=== PATIENT | female | born 1970 | race African-American/Black ===

== ENCOUNTER 2016-09-23 18:40 | Observation (INO) | payer OTHER ==
[2016-09-23] MEDS ORDERED: FUROSEMIDE 10 MG/ML 4 ML VIAL IV STA (19:34)
[2016-09-23] MEDS ORDERED: IPRATROPIUM-ALBUTEROL 3 ML NEB INHALATION STA (19:34)
[2016-09-23] MEDS ORDERED: NITROGLYCERIN OINT 1 INCH/GM PACKET TOPICAL STA (19:34)
[2016-09-23] MEDS ORDERED: ASPIRIN 81 MG CHEW PO STA (19:36)
[2016-09-23 19:52] LABS: Basophils % (A) 0 %; CH 28.9; CHCM 32.5; Eosinophils % (A) 0 %; HCT 45.1 % (34.0-46.0); HDW 2.32; HGB 14.2 gm/dL (11.4-16.0); Luc % (Auto) 1; Lymphocytes # (A) 0.9 k/uL (1.0-4.8); Lymphocytes % (A) 8 %; MCHC 31.4 g/dL (31.0-37.0); MCV 89.2 fL (80.0-100.0); Mean Platelet Volume 6.4; Monocytes # (A) 0.2 k/uL (0-1.0); Monocytes % (A) 2 %; Neutrophils # (A) 9.3 k/uL (1.3-7.7); Neutrophils % (A) 89 %; RBC 5.05 m/uL (3.80-5.40); WBC 10.5 k/uL (3.8-10.6)
[2016-09-23 20:00] LABS: ALT 29 U/L (9-52); AST 20 U/L (14-36); Alkaline Phosphatase 55 U/L (38-126); Anion Gap 10 mmol/L; Blood Urea Nitrogen 20 mg/dL (7-17); Calcium 9.6 mg/dL (8.4-10.2); Carbon Dioxide 28 mmol/L (22-30); Chloride 101 mmol/L (98-107); Glucose 117 mg/dL (74-99); Non-African American GFR(MDRD) >60 (>60 ml/min/1.73 sqM); Potassium 4.4 mmol/L (3.5-5.1); Sodium 139 mmol/L (137-145); Total Bilirubin 0.4 mg/dL (0.2-1.3); Total Protein 7.3 g/dL (6.3-8.2)
[2016-09-23 20:04] LABS: Partial Thromboplastin Time 23.7 sec (22.0-30.0)
[2016-09-23 20:14] LABS: Creatine Kinase 38 U/L (30-135)
[2016-09-23 20:26] LABS: Creatine Kinase MB <0.2 ng/mL (0.0-2.4); Troponin I <0.012 ng/mL (0.000-0.034)
--- NOTE | 2016-09-23 21:02 | XR ---
EXAMINATION TYPE: XR chest 2V DATE OF EXAM: 09/23/2016 8:57 PM COMPARISON: 11/11/2013 HISTORY: Leg edema TECHNIQUE: Frontal and lateral views of the chest are obtained. FINDINGS: There is no heart failure nor confluent pneumonic infiltrate. There is slight coarsening o f interstitial markings. There are no hilar masses. There are chest leads. Bony thorax appears intact . IMPRESSION: Mild pulmonary fibrotic changes. No acute lung disease. No change.
--- NOTE | 2016-09-23 21:05 | ED ---
General Adult HPI - General Source: patient Mode of arrival: wheelchair Limitations: no limitations <Rene Hathaway - Last Filed: 09/23/16 21:21> <Gilles Harvey - Last Filed: 09/23/16 22:33> - General Chief complaint: Extremity Problem,Nontraumatic Stated complaint: SOB, LEG SWELLING, SORE OOZING Time Seen by Provider: 09/23/16 19:22 - History of Present Illness Initial comments: This 38-year-old white female presents with a complaint of some lower extremity swelling and shortness of breath. She states that she has had edema to her lower extremities for approximately 2 weeks. She's also developed some pitting edema over that time. Her shortness of breath is worse with any exertion. She has orthopnea as well. She denies any known history of congestive heart failure. She has had some midsternal intermittent chest heaviness for the past 3 days. She does relate some recent urinary tract infection symptoms and was treated for urinary tract infection recently. She denies any known cardiac disease but does have a history of sarcoidosis. 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 No other complaints or modifying factors. (Rene Hathaway) - Related Data Home Medications Medication Instructions Recorded Confirmed Magnesium 200 mg PO DAILY 09/23/16 09/23/16 Methadone HCl [Methadone Intensol] 105 mg PO DAILY 09/23/16 09/23/16 Vitamin B Complex 1 cap PO DAILY 09/23/16 09/23/16 predniSONE 80 mg PO DAILY 09/23/16 09/23/16 tiZANidine HCL [Zanaflex] 2 mg PO Q6H PRN 09/23/16 09/23/16 Allergies Allergy/AdvReac Type Severity Reaction Status Date / Time No Known Allergies Allergy Verified 09/23/16 19:18 Review of Systems ROS Other: All systems not noted in ROS Statement are negative. <Rene Hathaway - Last Filed: 09/23/16 21:21> ROS Other: All systems not noted in ROS Statement are negative. <Gilles Harvey - Last Filed: 09/23/16 22:33> ROS Statement: Those systems with pertinent positive or pertinent negative responses have been documented in the HPI. Past Medical History Additional Past Medical History / Comment(s): opiod abuse, SARCODOSIS History of Any Multi-Drug Resistant Organisms: None Reported Past Surgical History: Back Surgery, Orthopedic Surgery Past Psychological History: No Psychological Hx Reported Smoking Status: Former smoker Past Alcohol Use History: None Reported Past Drug Use History: Prescription Drug Abuse <Rene Hathaway - Last Filed: 09/23/16 21:21> General Exam Limitations: no limitations <Rene Hathaway - Last Filed: 09/23/16 21:21> General appearance: alert, in no apparent distress, obese Head exam: Present: atraumatic, normocephalic, normal inspection Eye exam: Present: normal appearance, PERRL, EOMI. Absent: scleral icterus, conjunctival injection, periorbital swelling ENT exam: Present: normal exam, mucous membranes moist Neck exam: Present: normal inspection. Absent: tenderness, meningismus, lymphadenopathy Respiratory exam: Present: normal lung sounds bilaterally. Absent: respiratory distress, wheezes, rales, rhonchi, stridor Cardiovascular Exam: Present: regular rate, normal rhythm, normal heart sounds. Absent: systolic murmur, diastolic murmur, rubs, gallop, clicks GI/Abdominal exam: Present: soft, normal bowel sounds. Absent: distended, tenderness, guarding, rebound, rigid Extremities exam: Present: normal inspection, full ROM, normal capillary refill. Absent: tenderness, pedal edema, joint swelling, calf tenderness Back exam: Present: normal inspection Neurological exam: Present: alert, oriented X3, CN II-XII intact Psychiatric exam: Present: normal affect, normal mood Skin exam: Present: warm, dry, intact, normal color. Absent: rash <Gilles Harvey - Last Filed: 09/23/16 22:33> - General Exam Comments Initial Comments: GENERAL: The patient is well nourished and well hydrated. VITAL SIGNS: Heart rate, blood pressure, respiratory rate reviewed as recorded in nurse's notes. EYES: Pupils are round and reactive. Extraocular movements are intact. No conjunctival / lid redness or swelling. ENT: No external evidence of injury, swelling, or ecchymosis. Airway is patent. Throat is clear. NECK: Nontender. No swelling or evidence of injury. No subcutaneous emphysema. Trachea is midline. No thyroid mass. HEART: Regular rate and rhythm. Good peripheral pulses. LUNGS/CHEST: Breath sounds clear and equal bilaterally. No rales, rhonchi, or wheezes. No ecchymosis, subcutaneous emphysema, or tenderness. ABDOMEN: Abdomen soft without tenderness. No palpable masses or organomegaly. No peritoneal signs. No abdominal wall swelling or ecchymosis. EXTREMITIES: No extremity tenderness. Normal muscle tone and function. No thoracolumbar tenderness. There is some swelling and pitting edema noted to the bilateral lower extremities. NEUROLOGIC: Sensation is grossly intact. Cranial nerve exam reveals face is symmetrical, tongue is midline, speech is clear. SKIN: No abrasions or ecchymosis is noted. No induration or masses noted. There is a small area of erythema noted to the mid anterior jackman potentially related to a pressure blister. PSYCHIATRIC: Alert and oriented. Appropriate behavior and judgment. (Rene Hathaway) Course <Rene Hathaway - Last Filed: 09/23/16 21:21> <Gilles Harvey - Last Filed: 09/23/16 22:33> Vital Signs 09/23/16 09/23/16 09/23/16 18:50 19:56 20:04 Temperature 98.4 F Pulse Rate 84 70 70 Respiratory 20 18 Rate Blood Pressure 153/88 144/76 O2 Sat by Pulse 98 95 Oximetry 09/23/16 20:13 Temperature Pulse Rate 74 Respiratory Rate Blood Pressure O2 Sat by Pulse Oximetry - Reevaluation(s) Reevaluation #1: 09/23/16 22:32 Patient remains a chest pain at this time, concerned about her heart and sudden (Gilles Harvey) Medical Decision Making - Lab Data Result diagrams: 09/23/16 19:11 09/23/16 19:11 <Rene Hathaway - Last Filed: 09/23/16 21:21> - Lab Data Result diagrams: 09/23/16 19:11 09/23/16 19:11 - Radiology Data Radiology results: report reviewed (Chest x-ray is unchanged, CT has no PE), image reviewed <Gilles Harvey - Last Filed: 09/23/16 22:33> - Medical Decision Making The patient was seen and examined. All diagnostics were reviewed. The patient had an EKG done which shows a normal sinus rhythm with a heart rate of 70. There is no acute ST T-wave changes noted. The GA interval is 140, QRS duration is 90, and the QTc interval is 444. An IV is established and she received aspirin, nitroglycerin, and 80 mg of Lasix intravenously. The chest x- ray shows mild pulmonary fibrotic disease but no acute process otherwise noted. Laboratories reviewed. His felt as though she likely does have a degree of congestive heart failure. She also has had some chest pain recently. The possibility of acute coronary syndrome is possible. Is felt as though she would require admission to the hospital. Case will be discussed with internal medicine patient be admitted for further treatment. 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2 (0-1.0) k/uL Eosinophils # 0.0 (0-0.7) k/uL Basophils # 0.0 (0-0.2) k/uL PT (9.0-12.0) sec INR (<1.1) APTT (22.0-30.0) sec D-Dimer (<0.60) mg/L FEU Sodium 139 (137-145) mmol/L Potassium 4.4 (3.5-5.1) mmol/L Chloride 101 (98-107) mmol/L Carbon Dioxide 28 (22-30) mmol/L Anion Gap 10 mmol/L BUN 20 H (7-17) mg/dL Creatinine 0.67 (0.52-1.04) mg/dL Est GFR (MDRD) Af Amer >60 (>60 ml/min/1.73 sqM) Est GFR (MDRD) Non-Af >60 (>60 ml/min/1.73 sqM) Glucose 117 H (74-99) mg/dL Calcium 9.6 (8.4-10.2) mg/dL Total Bilirubin 0.4 (0.2-1.3) mg/dL AST 20 (14-36) U/L ALT 29 (9-52) U/L Alkaline Phosphatase 55 (38-126) U/L Total Creatine Kinase 38 (30-135) U/L CK-MB (CK-2) <0.2 (0.0-2.4) ng/mL CK-MB (CK-2) Rel Index Troponin I <0.012 (0.000-0.034) ng/mL NT-Pro-B Natriuret Pep pg/mL Total Protein 7.3 (6.3-8.2) g/dL Albumin 4.2 (3.5-5.0) g/dL Lipase (23-300) U/L Urine Color Urine Appearance (Clear) Urine pH (5.0-8.0) Ur Specific [place] (1.001-1.035) Urine Protein (Negative) Urine Glucose (UA) (Negative) Urine Ketones (Negative) Urine Blood (Negative) Urine Nitrite (Negative) Urine Bilirubin (Negative) Urine Urobilinogen (<2.0) mg/dL Ur Leukocyte Esterase (Negative) Urine RBC (0-5) /hpf Ur Squamous Epith Cells (0-4) /hpf 09/23/16 09/23/16 09/23/16 Range/Units 19:11 19:11 19:11 WBC (3.8-10.6) k/uL RBC (3.80-5.40) m/uL Hgb (11.4-16.0) gm/dL Hct (34.0-46.0) % MCV (80.0-100.0) fL MCH (25.0-35.0) pg MCHC (31.0-37.0) g/dL RDW (11.5-15.5) % Plt Count (150-450) k/uL Neutrophils % % Lymphocytes % % Monocytes % % Eosinophils % % Basophils % % Neutrophils # (1.3-7.7) k/uL Lymphocytes # (1.0-4.8) k/uL Monocytes # (0-1.0) k/uL Eosinophils # (0-0.7) k/uL Basophils # (0-0.2) k/uL PT 10.0 (9.0-12.0) sec INR 1.0 (<1.1) APTT 23.7 (22.0-30.0) sec D-Dimer 0.42 (<0.60) mg/L FEU Sodium (137-145) mmol/L Potassium (3.5-5.1) mmol/L Chloride (98-107) mmol/L Carbon Dioxide (22-30) mmol/L Anion Gap mmol/L BUN (7-17) mg/dL Creatinine (0.52-1.04) mg/dL Est GFR (MDRD) Af Amer (>60 ml/min/1.73 sqM) Est GFR (MDRD) Non-Af (>60 ml/min/1.73 sqM) Glucose (74-99) mg/dL Calcium (8.4-10.2) mg/dL Total Bilirubin (0.2-1.3) mg/dL AST (14-36) U/L ALT (9-52) U/L Alkaline Phosphatase (38-126) U/L Total Creatine Kinase (30-135) U/L CK-MB (CK-2) (0.0-2.4) ng/mL CK-MB (CK-2) Rel Index Troponin I (0.000-0.034) ng/mL NT-Pro-B Natriuret Pep 42 pg/mL Total Protein (6.3-8.2) g/dL Albumin (3.5-5.0) g/dL Lipase (23-300) U/L Urine Color Urine Appearance (Clear) Urine pH (5.0-8.0) Ur Specific [place] (1.001-1.035) Urine Protein (Negative) Urine Glucose (UA) (Negative) Urine Ketones (Negative) Urine Blood (Negative) Urine Nitrite (Negative) Urine Bilirubin (Negative) Urine Urobilinogen (<2.0) mg/dL Ur Leukocyte Esterase (Negative) Urine RBC (0-5) /hpf Ur Squamous Epith Cells (0-4) /hpf 09/23/16 09/23/16 Range/Units 19:11 21:31 WBC (3.8-10.6) k/uL RBC (3.80-5.40) m/uL Hgb (11.4-16.0) gm/dL Hct (34.0-46.0) % MCV (80.0-100.0) fL MCH (25.0-35.0) pg MCHC (31.0-37.0) g/dL RDW (11.5-15.5) % Plt Count (150-450) k/uL Neutrophils % % Lymphocytes % % Monocytes % % Eosinophils % % Basophils % % Neutrophils # (1.3-7.7) k/uL Lymphocytes # (1.0-4.8) k/uL Monocytes # (0-1.0) k/uL Eosinophils # (0-0.7) k/uL Basophils # (0-0.2) k/uL PT (9.0-12.0) sec INR (<1.1) APTT (22.0-30.0) sec D-Dimer (<0.60) mg/L FEU Sodium (137-145) mmol/L Potassium (3.5-5.1) mmol/L Chloride (98-107) mmol/L Carbon Dioxide (22-30) mmol/L Anion Gap mmol/L BUN (7-17) mg/dL Creatinine (0.52-1.04) mg/dL Est GFR (MDRD) Af Amer (>60 ml/min/1.73 sqM) Est GFR (MDRD) Non-Af (>60 ml/min/1.73 sqM) Glucose (74-99) mg/dL Calcium (8.4-10.2) mg/dL Total Bilirubin (0.2-1.3) mg/dL AST (14-36) U/L ALT (9-52) U/L Alkaline Phosphatase (38-126) U/L Total Creatine Kinase (30-135) U/L CK-MB (CK-2) (0.0-2.4) ng/mL CK-MB (CK-2) Rel Index Troponin I (0.000-0.034) ng/mL NT-Pro-B Natriuret Pep pg/mL Total Protein (6.3-8.2) g/dL Albumin (3.5-5.0) g/dL Lipase 135 (23-300) U/L Urine Color Colorless Urine Appearance Clear (Clear) Urine pH 7.0 (5.0-8.0) Ur Specific [place] 1.004 (1.001-1.035) Urine Protein Negative (Negative) Urine Glucose (UA) Trace H (Negative) Urine Ketones Negative (Negative) Urine Blood Small H (Negative) Urine Nitrite Negative (Negative) Urine Bilirubin Negative (Negative) Urine Urobilinogen <2.0 (<2.0) mg/dL Ur Leukocyte Esterase Negative (Negative) Urine RBC <1 (0-5) /hpf Ur Squamous Epith Cells <1 (0-4) /hpf Critical Care Time Critical Care Time: Yes Total Critical Care Time: 31 <Gilles Harvey - Last Filed: 09/23/16 22:33> Disposition <Rene Hathaway - Last Filed: 09/23/16 21:21> <Gilles Harvey - Last Filed: 09/23/16 22:33> Clinical Impression: Bilateral lower extremity edema, Chest pain, Hypertension, Sarcoidosis Disposition: ADMITTED IP TO THIS [facility] Condition: Fair Referrals: Henri Franco MD [Primary Care Provider] - 1-2 days
[2016-09-23] MEDS ORDERED: RX INFO: IV CONTRAST WAS GIVEN 1 EACH MISC MISCELLANE PRN (21:25)
[2016-09-23 21:48] LABS: Appearance,Urine Clear (Clear); Bilirubin,Urine Negative (Negative); Glucose,Urine (UA) Trace (Negative); Ketones,Urine Negative (Negative); Leukocyte Esterase,Urine Negative (Negative); Nitrite,Urine Negative (Negative); Particle Count 539; Protein,Urine Negative (Negative); RBC,Urine <1 /hpf (0-5); Specific Gravity,Urine 1.004 (1.001-1.035); Squamous Epithelial Cell,Urine <1 /hpf (0-4); UA Billing (MACRO vs. MICRO) MICRO; Urobilinogen,Urine <2.0 mg/dL (<2.0)
--- NOTE | 2016-09-23 22:17 | CT ---
EXAMINATION TYPE: CT angio chest DATE OF EXAM: 09/23/2016 10:09 PM COMPARISON: NONE HISTORY: Pt states of chest pain, SOB, and bilateral leg swelling. Hx of sarcoidosis. CT DLP: 1163.9 mGycm Automated exposure control for dose reduction was used. CONTRAST: CTA scan of the thorax is performed with IV Contrast, patient injected with 70 mL of Omnipaque 350, p ulmonary embolism protocol. There are 3-D post processed images.. FINDINGS: The lungs are clear of consolidation. There is no evidence of a pulmonary mass. There is no pleural e ffusion. Thoracic aorta is intact. I see no filling defects in the pulmonary arteries. There are no h ilar masses. There is no mediastinal adenopathy. There is no pericardial effusion. Bony thorax is int act. IMPRESSION: NO EVIDENCE OF PULMONARY EMBOLISM.
[2016-09-23] MEDS ORDERED: NITROGLYCERIN SL TABS 0.4 MG TAB SUBLINGUAL PRN (22:27)
[2016-09-23] MEDS ORDERED: HEPARIN SODIUM,PORCINE 5,000 UNIT/ML 1 ML VIAL IV ONE (22:27)
[2016-09-23] MEDS ORDERED: MORPHINE SULFATE 4 MG/ML SYRINGE IV PRN (22:27)
[2016-09-24] MEDS ORDERED: IPRATROPIUM-ALBUTEROL 3 ML NEB INHALATION SCH
[2016-09-24] MEDS: HEPARIN SODIUM,PORCINE/D5W PMX 25,000 UNIT in DEXTROSE/WATER 1 500ML.BAG IV SCH ×2 (00:47→21:25)
[2016-09-24] MEDS ORDERED: KETOROLAC 30 MG/ML 1 ML VIAL IVP STA (01:42)
[2016-09-24 01:45] LABS: Creatine Kinase 36 U/L (30-135)
[2016-09-24 01:58] LABS: Creatine Kinase MB 0.3 ng/mL (0.0-2.4); Troponin I <0.012 ng/mL (0.000-0.034)
[2016-09-24 04:44] LABS: Mean Platelet Volume 6.7
[2016-09-24 04:54] LABS: Cholesterol 237 mg/dL (<200); HDL Cholesterol 109 mg/dL (40-60); Triglycerides 104 mg/dL (<150)
[2016-09-24 08:22] LABS: Creatine Kinase 37 U/L (30-135)
[2016-09-24 08:34] LABS: Creatine Kinase MB <0.2 ng/mL (0.0-2.4); Troponin I <0.012 ng/mL (0.000-0.034)
--- NOTE | 2016-09-24 09:38 | US ---
EXAMINATION TYPE: US venous doppler duplex LE DATE OF EXAM: 09/23/2016 9:26 PM COMPARISON: NONE CLINICAL HISTORY: Pain. Swelling, patient is morbidly obese at 400 lbs. SIDE PERFORMED: Bilateral TECHNIQUE: The bilateral lower extremity deep venous system is examined utilizing real time linear a rray sonography with graded compression, doppler sonography and color-flow sonography. VESSELS IMAGED: External Iliac Vein (EIV) Common Femoral Vein Deep Femoral Vein Greater Saphenous Vein * Femoral Vein Popliteal Vein Proximal Calf Veins (* superficial vessels) Right Leg: Negative for DVT Left Leg: Negative for DVT No popliteal fossa lesion was seen. IMPRESSION: THIS EXAMINATION IS NEGATIVE FOR DVT IN BOTH LEGS.
[2016-09-24] MEDS: HEPARIN SODIUM,PORCINE 5,000 UNIT/ML 1 ML VIAL IV PRN ×2 (09:47→18:22)
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
[2016-09-24] MEDS ORDERED: ACETAMINOPHEN TAB 325 MG TAB PO PRN (13:22)
[2016-09-24] MEDS: predniSONE 20 MG TAB PO SCH (14:25)
[2016-09-24] MEDS: MAGNESIUM OXIDE 400 MG TAB PO SCH (14:25)
[2016-09-24] MEDS: METHADONE 10 MG TAB PO SCH (14:25)
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
[2016-09-24] MEDS: ASPIRIN 325 MG TAB PO SCH (16:29)
[2016-09-24] MEDS: BUDESONIDE 0.5 MG/2 ML NEBU INHALATION SCH (21:43)
[2016-09-24] MEDS: IPRATROPIUM-ALBUTEROL 3 ML NEB INHALATION PRN (21:43)
[2016-09-25] MEDS ORDERED: PANTOPRAZOLE 40 MG TABLET PO SCH (07:30)
[2016-09-25] MEDS: IPRATROPIUM-ALBUTEROL 3 ML NEB INHALATION PRN (07:45)
[2016-09-25] MEDS: BUDESONIDE 0.5 MG/2 ML NEBU INHALATION SCH (07:45)
[2016-09-25 07:52] VITALS: BP 122/66; RESP 18; TEMP 99
[2016-09-25 08:05] VITALS: PULSE 72
[2016-09-25 08:06] LABS: Mean Platelet Volume 6.4
[2016-09-25] MEDS ORDERED: predniSONE 20 MG TAB PO SCH (09:00)
[2016-09-25] MEDS: predniSONE 20 MG TAB PO SCH (09:15)
[2016-09-25] MEDS: ASPIRIN 325 MG TAB PO SCH (09:16)
--- NOTE | 2016-09-25 09:28 | ECHOF ---
Referral Reason:chest pain MEASUREMENTS -------- HEIGHT: 175.3 cm WEIGHT: 181.4 kg BP: RVIDd: 3.7 cm (< 3.3) IVSd: 1.1 cm (0.6 - 1.1) LVIDd: 4.9 cm (3.9 - 5.3) LVPWd: 1.1 cm (0.6 - 1.1) IVSs: 1.3 cm LVIDs: 3.5 cm LVPWs: 1.4 cm Ao Diam: 3.7 cm (2.0 - 3.7) AV Cusp: 2.2 cm (1.5 - 2.6) LA Diam: 4.2 cm (2.7 - 3.8) MV EXCURSION: 16.790 mm (> 18.000) MV EF SLOPE: 68 mm/s (70 - 150) EPSS: 0.3 cm MV E Carlos: 0.73 m/s MV DecT: 191 ms MV A Carlos: 0.69 m/s MV E/A Ratio: 1.07 RAP: 5.00 mmHg RVSP: 20.86 mmHg FINDINGS -------- Sinus rhythm. Morbid Obesity This was a techncally difficult study with suboptimal views, , Definity utilized for enhancement of images. There is mild concentric left ventricular hypertrophy. Overall left ventricular systolic function is low-normal with, an EF between 50 - 55 %. The right ventricle is normal in size. The left atrial size is normal. The right atrial size is normal. 1.5MG OF DEFINITY UTLIZED: 2 OR MORE WALL SEGMENTS NOT VISUALIZED. There is mild aortic valve sclerosis. There is no evidence of aortic regurgitation. Mild mitral annular calcification present. Mild mitral regurgitation is present. Mild tricuspid regurgitation present. There is no evidence of pulmonary hypertension. The right ventricular systolic pressure, as measured by Doppler, is 20.86mmHg. There is no pulmonic regurgitation present. The aortic root size is normal. There is no pericardial effusion. CONCLUSIONS -------- 1. Morbid Obesity 2. There is no evidence of pulmonary hypertension. 3. The right ventricular systolic pressure, as measured by Doppler, is 20.86mmHg. 4. This was a techncally difficult study with suboptimal views, , Definity utilized for enhancement of images. 5. There is mild concentric left ventricular hypertrophy. 6. Overall left ventricular systolic function is low-normal with, an EF between 50 - 55 %. 7. 1.5MG OF DEFINITY UTLIZED: 2 OR MORE WALL SEGMENTS NOT VISUALIZED. 8. There is mild aortic valve sclerosis. 9. Mild mitral annular calcification present. 10. Mild mitral regurgitation is present. 11. Mild tricuspid regurgitation present. ELECTRICIAN FRONT: Kyara Avalos RDCS
[2016-09-25] MEDS: METHADONE 10 MG TAB PO SCH (09:48)
--- NOTE | 2016-09-25 11:26 | PN ---
This is a 46-year-old lady seen by me yesterday with atypical chest pain, morbid obesity, history of sarcoidosis. She is resting comfortably. Has no further symptoms. Her vital signs are stable. Her troponins have all come out normal. Blood pressure is 120/60, pulse rate is 70 per minute. Heart sounds are heard distantly. There is no JVD. Lungs are clear. Abdomen and lower extremity exam unchanged. The patient has morbid obesity, atypical chest pain, but has been pain free and troponins are normal. I am recommending that we will discharge her and perform a dobutamine echo in [facility] in the next week or so. She will call me sooner if she has a question, concern or problem.
[2016-09-25] MEDS ORDERED: B COMPLEX-VIT C-VIT E-ZINC 1 EACH TAB PO SCH (12:00)
--- NOTE | 2016-09-25 13:36 | P.DS ---
Providers Date of admission: 09/23/16 22:32 Expected date of discharge: 09/25/16 Attending physician: Rony Emmanuel Primary care physician: Henri Franco [facility] Course: This is a 46-year-old -Belgian female patient of Dr. Henri Franco with a past medical history of chronic pain on methadone managed through the [facility], pulmonary sarcoidosis 17 years and has previously followed with the merchandising professor. She follows with a sarcoidosis specialist at [facility] has been on prednisone. She was on Enbrel for 3 years and insurance refused to cover. She has also been turned down for Remicade recently. Patient states on Tuesday she developed chest pain and swelling in the bilateral lower extremities. She also has some shortness of breath worsening with minimal activity up. Patient is wheelchair bound. She states the shortness of breath and swelling have gradually increased since Tuesday. The chest pain comes and goes but is unchanged at this time. Nothing seems to make it worse or better. She presented to [facility] emergency center. Troponins have been negative on 3 draws. Triglycerides 104, cholesterol 237, LDL 107, HDL 109. Urinalysis was clear with nitrate and leukoesterase negative. Chest x-ray shows mild pulmonary fibrotic changes with no acute lung disease. CTA of the chest was dated for pulmonary embolism. Ultrasound of the lower extremities was negative for DVT bilaterally. Patient has been placed on the observation unit. She has been seen in consultation by pulmonary medicine, Dr. Palencia. Noted there was no evidence of pulmonary sarcoidosis on CAT scan of the chest. Patient has been seen by tmr teacher with recommendations for no intervention at this time possible outpatient stress testing but monitor overnight. They shouldn't does have chronic lower extremity edema with left leg being worse than right. Patient did not have any improvement of her chest pain with nitroglycerin. She states she has been tested for sleep apnea which was negative. She also states that she does not eat Fatty foods or salt. 09/25: Patient has been reevaluated by cardiology this morning with recommendations for discharge home and undergo stress echocardiogram next week. Echocardiogram reveals EF 50-55%, no pulmonary hypertension, mild concentric left ventricular hypertrophy, mild aortic valve sclerosis, mild mitral regurgitation, mild tricuspid regurgitation. Patient is agreeable to this plan and will be discharged home today in stable condition. Discharge Diagnoses: 1. Chest pain with lower extremity edema. 2. Pulmonary sarcoidosis. 3. Chronic back pain 4. Chronic hypoxic respiratory failure on home O2 dependence Patient placed on the observation unit. Discharge plan: Home Impression and plan of care have been directed as dictated by the signing physician. Jeanne Roca nurse practitioner acting as scribe for signing physician. Patient Condition at Discharge: Good Plan - Discharge Summary Discharge Medication List Magnesium 200 mg PO DAILY 09/23/16 [History] Methadone HCl [Methadone Intensol] 105 mg PO DAILY 09/23/16 [History] Vitamin B Complex 1 cap PO DAILY 09/23/16 [History] predniSONE 80 mg PO DAILY 09/23/16 [History] tiZANidine HCL [Zanaflex] 2 mg PO Q6H PRN 09/23/16 [History] Follow up Appointment(s)/Referral(s): Henri Franco MD [Primary Care Provider] - 1 Week Maicol Anderson MD [STAFF PHYSICIAN] - 1 Week Kyle Anderson MD [STAFF PHYSICIAN] - 1 Week Patient Instructions/Handouts: Chest Pain (GEN), Sarcoidosis (GEN) Activity/Diet/Wound Care/Special Instructions: Outpatient scheduling to call you with date and time for Dobutamine Stress Test per Dr. ROGERS Anderson Discharge Disposition: HOME SELF-CARE
[2016-09-25] MEDS: MAGNESIUM OXIDE 400 MG TAB PO SCH (13:54)
--- NOTE | 2016-09-25 18:59 | PN ---
DATE OF SERVICE: 09/25/2016. She had been hemodynamically stable. She had no further chest pain. On physical examination, her blood pressure 120/66, respiratory rate 18, pulse rate of 64, temperature 99 degrees Fahrenheit. HEENT is unremarkable. Chest was clear. Cardiovascular S1 and S2. ABDOMEN: Soft. There is no edema. IMPRESSION: 1. Sarcoidosis. 2. Chest pain which may be due to cardiac versus noncardiac etiology. 3. Chronic hypoxic respiratory failure. 4. Obesity. Continue steroids. Agree with discharge planning and outpatient work-up for her chest pain. Depending on how she does, we shall make further changes to her care.
== END 2016-09-25 12:33 | disposition home or self-care (01) ==
LOC: EC 18:40 → 3OBS 22:32 → 2ORMAIN 09-24 10:00 → 3OBS 09-24 13:30
PROVIDERS: ADMIT Internal Medicine; ATTEND Internal Medicine
DX: R07.9 Chest pain, unspecified (principal); R60.0 Localized edema; D86.0 Sarcoidosis of lung; G89.29 Other chronic pain; M54.9 Dorsalgia, unspecified; J96.11 Chronic respiratory failure with hypoxia; Z99.81 Dependence on supplemental oxygen; Z99.3 Dependence on wheelchair; Z87.891 Personal history of nicotine dependence; Z87.440 Personal history of urinary (tract) infections; Z79.891 Long term (current) use of opiate analgesic; E66.01 Morbid (severe) obesity due to excess calories; Z79.52 Long term (current) use of systemic steroids; M19.90 Unspecified osteoarthritis, unspecified site; J44.9 Chronic obstructive pulmonary disease, unspecified
CPT/HCPCS: 96376 ×3; 96365 ×2; 96374 ×2; 96375 ×3; 99291 ×2; 36415; 94640 ×3; 93005 ×2; 85379; 83880; 80061; 80053; 82550 ×2; 82553 ×2; 83690; 84484 ×3; 85025; 85049 ×2; 85610; 85730 ×3; 81001; 87040; 71020; 93970; 71275; G0378 ×3; C8929; J1644 ×2; J1940; Q9967; J1885; Q9957; S0109 ×2; J7512 ×2; 93306; 96366

== ENCOUNTER 2016-11-09 14:10 | Emergency (ER) | payer OTHER ==
[2016-11-09 14:21] VITALS: BP 182/91; PULSE 105; RESP 18; TEMP 96.8
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
--- NOTE | 2016-11-09 14:59 | XR ---
EXAMINATION TYPE: XR femur LT DATE OF EXAM: 11/09/2016 2:55 PM COMPARISON: NONE HISTORY: Pain TECHNIQUE: 5 views of the left femur are submitted FINDINGS: Arthropathy of the joint space is noted. Osseous structures intact. IMPRESSION: No acute fracture
--- NOTE | 2016-11-09 15:00 | XR ---
EXAMINATION TYPE: XR knee complete LT DATE OF EXAM: 11/09/2016 2:55 PM COMPARISON: NONE HISTORY: Pain TECHNIQUE: Four views are submitted. FINDINGS: Mild hypertrophic change and narrowing of the joint spaces.. Osseous structures are intact. No acut e fracture seen. IMPRESSION: 1. No acute fracture or dislocation.
--- NOTE | 2016-11-09 15:01 | XR ---
EXAMINATION TYPE: XR Hip Complete LT DATE OF EXAM: 11/09/2016 2:55 PM COMPARISON: NONE HISTORY: Pain TECHNIQUE: 2 views submitted FINDINGS: There is no evidence of erosive change or acute fracture. Moderate concentric narrowing of the joint space. IMPRESSION: 1. No evidence of acute fracture or dislocation.
== END 2016-11-09 15:53 | disposition home or self-care (01) ==
LOC: EC 14:10
DX: S80.02XA Contusion of left knee, initial encounter (principal); D86.9 Sarcoidosis, unspecified; Z87.891 Personal history of nicotine dependence; Z79.52 Long term (current) use of systemic steroids; Z79.899 Other long term (current) drug therapy; X58.XXXA Exposure to other specified factors, initial encounter
CPT/HCPCS: 73502; 99283

== ENCOUNTER 2016-11-25 13:26 | Emergency (ER) | payer OTHER ==
[2016-11-25 13:45] VITALS: PULSE 78
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
[2016-11-25 15:37] VITALS: RESP 18; TEMP 98.8
[2016-11-25 15:41] VITALS: BP 145/88
== END 2016-11-25 15:42 | disposition home or self-care (01) ==
LOC: EC 13:26
DX: S80.212A Abrasion, left knee, initial encounter (principal); L02.416 Cutaneous abscess of left lower limb; M46.90 Unspecified inflammatory spondylopathy, site unspecified; Z87.891 Personal history of nicotine dependence; Z79.52 Long term (current) use of systemic steroids; Z79.891 Long term (current) use of opiate analgesic; Z79.899 Other long term (current) drug therapy; W05.0XXA Fall from non-moving wheelchair, initial encounter; Y93.I9 Activity, other involving external motion; Y92.811 Bus as the place of occurrence of the external cause
CPT/HCPCS: 99282

== ENCOUNTER 2016-11-26 15:07 | Inpatient (IN) | payer OTHER ==
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
[2016-11-26] MEDS ORDERED: HYDROmorphone 1 MG/ML 1 ML SYRINGE IVP STA (16:30)
[2016-11-26] MEDS ORDERED: SODIUM CHLORIDE 0.9% 1,000 ML IV STA (16:30)
[2016-11-26] MEDS ORDERED: ONDANSETRON 4 MG/2 ML VIAL IVP STA (16:30)
[2016-11-26] MEDS ORDERED: AMPICILLIN-SULBACTAM 3 GM in SODIUM CHLORIDE 0.9% 100 ML IVPB STA (17:35)
[2016-11-26 17:47] LABS: Basophils % (A) 0 %; CH 28.9; CHCM 33.2; Eosinophils # (A) 0.2 k/uL (0-0.7); Eosinophils % (A) 1 %; HCT 41.5 % (34.0-46.0); HDW 2.36; HGB 13.7 gm/dL (11.4-16.0); Luc # (Auto) 0.27; Luc % (Auto) 2; Lymphocytes # (A) 2.2 k/uL (1.0-4.8); Lymphocytes % (A) 14 %; MCH 28.9 pg (25.0-35.0); MCV 87.4 fL (80.0-100.0); Mean Platelet Volume 6.6; Monocytes # (A) 0.5 k/uL (0-1.0); Monocytes % (A) 3 %; Neutrophils # (A) 12.4 k/uL (1.3-7.7); Neutrophils % (A) 80 %; RBC 4.75 m/uL (3.80-5.40); RDW 14.4 % (11.5-15.5); WBC 15.5 k/uL (3.8-10.6); WBC (Perox) 15.88
[2016-11-26 17:53] LABS: ALT 42 U/L (9-52); AST 17 U/L (14-36); Alkaline Phosphatase 60 U/L (38-126); Anion Gap 11 mmol/L; Blood Urea Nitrogen 23 mg/dL (7-17); Calcium 9.4 mg/dL (8.4-10.2); Carbon Dioxide 29 mmol/L (22-30); Chloride 100 mmol/L (98-107); Glucose 108 mg/dL (74-99); Non-African American GFR(MDRD) >60 (>60 ml/min/1.73 sqM); Potassium 3.6 mmol/L (3.5-5.1); Sodium 140 mmol/L (137-145); Total Bilirubin 0.7 mg/dL (0.2-1.3); Total Protein 6.7 g/dL (6.3-8.2)
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
[2016-11-26] MEDS ORDERED: KETOROLAC 30 MG/ML 1 ML VIAL IVP STA (18:11)
[2016-11-26] MEDS ORDERED: SODIUM CHLORIDE 0.9% 1,000 ML IV ONE (18:12)
[2016-11-26] MEDS ORDERED: ONDANSETRON 4 MG/2 ML VIAL IVP PRN (18:12)
[2016-11-26] MEDS ORDERED: NALOXONE 0.4 MG/ML 1 ML VIAL IV PRN (18:12)
[2016-11-26] MEDS ORDERED: ACETAMINOPHEN TAB 325 MG TAB PO PRN (18:12)
[2016-11-26] MEDS ORDERED: IV VANCOMYCIN PER PHARMACY 1 EACH MISC MISCELLANE PRN (18:13)
[2016-11-26] MEDS ORDERED: VANCOMYCIN 2,500 MG in SODIUM CHLORIDE 0.9% 500 ML IVPB ONE (18:30)
[2016-11-26] MEDS: HYDROmorphone 1 MG/ML 1 ML SYRINGE IV PRN (20:05)
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
[2016-11-26 22:01] LABS: INR 1.1 (<1.1); Prothrombin Time 10.9 sec (9.0-12.0)
[2016-11-27] MEDS: KETOROLAC 30 MG/ML 1 ML VIAL IVP SCH ×5 (00:05→22:59)
[2016-11-27] MEDS: AMPICILLIN-SULBACTAM 3 GM in SODIUM CHLORIDE 0.9% 100 ML IVPB SCH ×5 (03:20→22:58)
[2016-11-27] MEDS: VANCOMYCIN 2,250 MG in SODIUM CHLORIDE 0.9% 500 ML IVPB SCH ×2 (06:18→17:40)
[2016-11-27 07:24] LABS: Basophils % (A) 0 %; CH 28.5; CHCM 32.1; Eosinophils # (A) 0.2 k/uL (0-0.7); Eosinophils % (A) 1 %; HCT 36.5 % (34.0-46.0); HDW 2.23; HGB 11.6 gm/dL (11.4-16.0); Luc # (Auto) 0.21; Luc % (Auto) 1; Lymphocytes # (A) 1.8 k/uL (1.0-4.8); Lymphocytes % (A) 11 %; MCH 28.3 pg (25.0-35.0); MCHC 31.8 g/dL (31.0-37.0); Monocytes # (A) 0.8 k/uL (0-1.0); Monocytes % (A) 5 %; Neutrophils % (A) 82 %; RDW 14.5 % (11.5-15.5); WBC 15.9 k/uL (3.8-10.6); WBC (Perox) 17.84
[2016-11-27 07:34] LABS: Anion Gap 8 mmol/L; Blood Urea Nitrogen 18 mg/dL (7-17); Calcium 8.2 mg/dL (8.4-10.2); Carbon Dioxide 26 mmol/L (22-30); Chloride 104 mmol/L (98-107); Glucose 134 mg/dL (74-99); Non-African American GFR(MDRD) >60 (>60 ml/min/1.73 sqM); Potassium 3.8 mmol/L (3.5-5.1); Sodium 138 mmol/L (137-145)
--- NOTE | 2016-11-27 07:38 | XR ---
EXAMINATION TYPE: XR chest 1V DATE OF EXAM: 11/27/2016 CLINICAL HISTORY: Difficulty breathing progress study. TECHNIQUE: Single AP portable upright view of the chest is obtained. COMPARISON: Chest x-ray and CTA chest from September 23, 2016. FINDINGS: Exam is suboptimal secondary to patient's body habitus and portable technique. There is pe rsistent cardiomegaly. Lungs are grossly clear without suspicious focal airspace opacity, pleural eff usion, or pneumothorax seen bilaterally. Osseous structures are intact. IMPRESSION: Cardiomegaly without acute pulmonary process.
[2016-11-27] MEDS: HEPARIN SODIUM,PORCINE 5,000 UNIT/ML 1 ML VIAL SQ SCH ×4 (08:33→20:43)
[2016-11-27] MEDS: HYDROmorphone 1 MG/ML 1 ML SYRINGE IV PRN ×3 (08:53→17:43)
[2016-11-27] MEDS ORDERED: fentaNYL (PF) 50 MCG/ML 2 ML AMP ONE (10:00)
[2016-11-27] MEDS ORDERED: ROCURONIUM BROMIDE 10 MG/ML 10 ML VIAL IV ONE (10:00)
[2016-11-27] MEDS ORDERED: SUCCINYLCHOLINE CHLORIDE 100 MG/5 ML SYR IV ONE (10:00)
[2016-11-27] MEDS ORDERED: GLYCOPYRROLATE 0.2 MG/ML 2 ML VIAL ONE (10:00)
[2016-11-27] MEDS ORDERED: ONDANSETRON 4 MG/2 ML VIAL ONE (10:00)
[2016-11-27] MEDS ORDERED: DEXAMETHASONE SOD PHOS (MDV) 100 MG/10 ML VIAL ONE (10:00)
[2016-11-27] MEDS ORDERED: NEOSTIGMINE 1 MG/ML 10 ML VIAL ONE (10:00)
[2016-11-27] MEDS ORDERED: IV FLUID CONTINUATION 1,000 ML IV ONE (10:00)
[2016-11-27] MEDS ORDERED: HYDROmorphone (PF) 1 MG/ML ONE (10:00)
[2016-11-27] MEDS ORDERED: LIDOCAINE 1% INJ 10MG/ML (20 ML MDV) ONE (10:00)
[2016-11-27] MEDS ORDERED: MIDAZOLAM 2 MG/2 ML VIAL ONE (10:00)
[2016-11-27] MEDS ORDERED: PROPOFOL 10 MG/ML 20 ML VIAL IV ONE (10:00)
[2016-11-27] MEDS ORDERED: KETOROLAC 30 MG/ML 1 ML VIAL ONE (10:00)
[2016-11-27] MEDS ORDERED: LACTATED RINGERS 1,000 ML IV ONE (10:47)
--- NOTE | 2016-11-27 10:48 | P.OP ---
Date of Procedure: 11/27/16 Preoperative Diagnosis: Post traumatic Left leg cellulitis with abscess, Knee laceration Postoperative Diagnosis: Post traumatic Left leg cellulitis with abscess, Knee laceration Procedure(s) Performed: Incision and drainage of abscess Implants: Anesthesia: VÍCTORA Surgeon: Louie Hernandez Estimated Blood Loss (ml): 10 Pathology: other (culture of pus and deep tissue culture) Condition: stable Disposition: PACU Indications for Procedure: Patient has a painful infected hematoma Operative Findings: Abscess cavity in the left medial leg measuring 5.5 cm x 9.5 cm and 3 cm Laceration of knee 3.5 x 2 x 0.1 Description of Procedure: 46-year-old female who presents with infection of a hematoma secondary to trauma. She's not responding to antibiotics and is on prednisone for her sarcoidosis. Patient has multiple comorbidities including sleep apnea pulmonary fibrosis spinal stenosis chronic immunosuppression with prednisone chronic pain and on methadone previous history of smoking morbid obesity and sleep apnea. Patient was identified in the preoperative operating holding area and appropriate informed consent was obtained she was taken the operating room placed in supine position and given general anesthesia with endotracheal intubation appropriate timeout was called. The leg was prepped and draped in usual sterile surgical fashion after which the thigh wound was opened allowing drainage is some pus this was over the help of a hemostat. It is significant amount of pus, coming out decision was made to make an elliptical incision with the help of electrocautery including the entire wound itself making incision that measured 5.5 cm in transverse length 1. centimeters in breadth. This extended deep through the subcutaneous tissues to the muscle. This entered into the abscess cavity. Blunt dissection was done to break down all the septa. The cavity itself was thoroughly irrigated and all pus was removed. Hemostasis was secured with the help of electrocautery. The cavity was packed with two 45 x 2 cm Aquacel silver dressings. The wound itself is undermining approximately 5 cm inferiorly towards the foot and 4 cm medially along the thigh attention was turned to the knee wound which was cleaned up with the help of a curete, a situation 4 x 4 dressing and tape was applied and the knee. 4 x 4 dressing was applied on the thigh. Patient tolerated procedure well there were no complications. She was extubated and taken to recovery room in stable but critical condition due to her overall morbidity..
[2016-11-27] MEDS ORDERED: METOCLOPRAMIDE 5 MG/ML 2 ML VIAL IVP ONE (10:49)
[2016-11-27] MEDS: HYDROCORTISONE SUCCINATE 100 MG/2 ML VIAL IV SCH ×3 (12:19→22:58)
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
--- NOTE | 2016-11-27 16:03 | XR ---
EXAMINATION TYPE: XR femur LT, XR knee limited LT DATE OF EXAM: 11/27/2016 CLINICAL HISTORY: Nonhealing wounds left leg. Rule out osteomyelitis. TECHNIQUE: Two views of the left knee and femur are obtained. COMPARISON: None FINDINGS: Prominent soft tissue is consistent with patient's body habitus. Mild diffuse subcutaneous edema is also felt present. There is lucency consistent with soft tissue infection or open wound medi ally mid shaft level of left femur. No acute fracture or dislocation is evident. No suspicious cortic al destruction or periosteal reaction is seen. Mild to moderate joint space loss left hip joint is pr esent. Images of left knee show mild to moderate tricompartment joint space loss and mild spurring. No acute fracture or dislocation is seen. No cortical destruction or periosteal reaction is evident. IMPRESSION: There is no radiographic evidence for acute osteomyelitis involving left femur or knee.
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
[2016-11-27 18:01] LABS: Glucose,Whole Blood 248 mg/dL (75-99)
[2016-11-27] MEDS: INSULIN LISPRO (humaLOG) 300 UNIT/3 ML VIAL SQ SCH ×2 (18:03→20:45)
[2016-11-27 20:32] LABS: Glucose,Whole Blood 244 mg/dL (75-99)
[2016-11-28] MEDS: HYDROmorphone 1 MG/ML 1 ML SYRINGE IV PRN ×6 (00:43→20:47)
[2016-11-28] MEDS: AMPICILLIN-SULBACTAM 3 GM in SODIUM CHLORIDE 0.9% 100 ML IVPB SCH ×2 (05:14→11:11)
[2016-11-28] MEDS: KETOROLAC 30 MG/ML 1 ML VIAL IVP SCH ×4 (05:15→23:22)
[2016-11-28] MEDS: VANCOMYCIN 2,250 MG in SODIUM CHLORIDE 0.9% 500 ML IVPB SCH (07:27)
[2016-11-28] MEDS: HEPARIN SODIUM,PORCINE 5,000 UNIT/ML 1 ML VIAL SQ SCH ×3 (07:32→07:34)
[2016-11-28] MEDS: HYDROCORTISONE SUCCINATE 100 MG/2 ML VIAL IV SCH ×3 (07:32→23:21)
[2016-11-28 07:36] LABS: Basophils % (A) 0 %; CH 28.6; CHCM 32.4; Eosinophils # (A) 0.1 k/uL (0-0.7); Eosinophils % (A) 0 %; HCT 34.1 % (34.0-46.0); HDW 2.33; HGB 11.1 gm/dL (11.4-16.0); Luc # (Auto) 0.15; Luc % (Auto) 1; Lymphocytes # (A) 0.9 k/uL (1.0-4.8); Lymphocytes % (A) 5 %; MCH 28.9 pg (25.0-35.0); MCHC 32.6 g/dL (31.0-37.0); MCV 88.6 fL (80.0-100.0); Mean Platelet Volume 6.9; Monocytes # (A) 0.5 k/uL (0-1.0); Monocytes % (A) 3 %; Neutrophils # (A) 16.4 k/uL (1.3-7.7); Neutrophils % (A) 91 %; RBC 3.85 m/uL (3.80-5.40); RDW 14.2 % (11.5-15.5); WBC (Perox) 18.86
[2016-11-28] MEDS: INSULIN LISPRO (humaLOG) 300 UNIT/3 ML VIAL SQ SCH ×4 (07:50→20:32)
[2016-11-28 07:53] LABS: Glucose,Whole Blood 133 mg/dL (75-99)
[2016-11-28 08:16] LABS: ALT 35 U/L (9-52); AST 21 U/L (14-36); Alkaline Phosphatase 58 U/L (38-126); Anion Gap 7 mmol/L; Blood Urea Nitrogen 15 mg/dL (7-17); Calcium 8.5 mg/dL (8.4-10.2); Carbon Dioxide 25 mmol/L (22-30); Chloride 105 mmol/L (98-107); Glucose 154 mg/dL (74-99); Non-African American GFR(MDRD) >60 (>60 ml/min/1.73 sqM); Potassium 4.2 mmol/L (3.5-5.1); Sodium 137 mmol/L (137-145); Total Bilirubin 0.5 mg/dL (0.2-1.3); Total Protein 5.3 g/dL (6.3-8.2)
[2016-11-28] MEDS ORDERED: MAGNESIUM HYDROXIDE 2,400 MG/10 ML CUP PO PRN (11:05)
[2016-11-28] MEDS ORDERED: NALOXONE 0.4 MG/ML 1 ML VIAL IV PRN (11:05)
[2016-11-28] MEDS: LACTATED RINGERS 1,000 ML IV SCH (11:21)
[2016-11-28] MEDS: HYDROmorphone PCA 5 MG/25 ML SYRINGE IV PRN ×2 (11:23→19:32)
[2016-11-28 11:32] LABS: Glucose,Whole Blood 172 mg/dL (75-99)
[2016-11-28] MEDS ORDERED: METHADONE 10 MG TAB PO SCH (12:45)
--- NOTE | 2016-11-28 13:16 | P.PN ---
Subjective Principal diagnosis: Left leg abscess A Lopez is doing well from the surgical standpoint. She continues to have pain in the left thigh. This minimal amount of drainage. The nausea and vomiting has settled down. Granulation is limited due to her spinal issues. Pulmonary and medicine consult Objective - Vital Signs Vital signs: Vital Signs Temp 97.9 F 11/28/16 07:56 Pulse 59 L 11/28/16 08:00 Resp 20 11/28/16 08:00 BP 148/71 11/28/16 07:56 Pulse Ox 96 11/28/16 11:05 Intake & Output 11/27/16 11/28/16 11/28/16 18:59 06:59 18:59 Intake Total 1750 220 Output Total 5 Balance 1745 220 Weight 167.829 kg 167.829 kg Intake: IV 600 Intake, IV Titration 1100 Amount Ampicillin-Sulbactam 3 gm 100 In Sodium Chloride 0.9% 100 ml @ 100 mls/hr IVPB Q6HR [facility] Rx#:[id number] Lactated Ringers 1,000 ml 500 As IV .[facility] Rx#: [id number] Vancomycin 2,250 mg In 500 Sodium Chloride 0.9% 500 ml @ 167 mls/hr IVPB Q12HR@0600,1800 [facility] Rx#: [id number] Oral 50 220 Output: Estimated Blood Loss 5 Other: Voiding Method Bedside Commode Bedside Commode Bedside Commode Incontinent Incontinent Incontinent # Voids 4 1 1 - Constitutional General appearance: Present: morbidly obese - EENT Eyes: Present: PERRLA - Cardiovascular Rhythm: regular - Gastrointestinal General gastrointestinal: Present: soft - Integumentary Integumentary Comment(s): The patient's wound on the left leg was inspected it is open with minimal amount of drainage. There is decreased induration and erythema of the left thigh - Labs CBC & Chem 7: 11/28/16 06:51 11/28/16 06:51 Labs: Abnormal Lab Results - Last 24 Hours (Table) 11/27/16 11/27/16 11/28/16 Range/Units 17:57 20:28 06:51 WBC 18.0 H (3.8-10.6) k/uL Hgb 11.1 L (11.4-16.0) gm/dL Neutrophils # 16.4 H (1.3-7.7) k/uL Lymphocytes # 0.9 L (1.0-4.8) k/uL Glucose (74-99) mg/dL POC Glucose (mg/dL) 248 H 244 H (75-99) mg/dL Total Protein (6.3-8.2) g/dL Albumin (3.5-5.0) g/dL 11/28/16 11/28/16 11/28/16 Range/Units 06:51 07:45 11:29 WBC (3.8-10.6) k/uL Hgb (11.4-16.0) gm/dL Neutrophils # (1.3-7.7) k/uL Lymphocytes # (1.0-4.8) k/uL Glucose 154 H (74-99) mg/dL POC Glucose (mg/dL) 133 H 172 H (75-99) mg/dL Total Protein 5.3 L (6.3-8.2) g/dL Albumin 2.9 L (3.5-5.0) g/dL Microbiology - Last 24 Hours (Table) 11/27/16 10:34 Gram Stain - Preliminary Thigh - Left Wound Culture - Preliminary Beta Hemolytic Strep Group G 11/26/16 17:25 Blood Culture - Preliminary Blood No Growth after 24 hours 11/27/16 10:34 Anaerobic Culture - Preliminary Thigh - Left Assessment and Plan (1) Abscess Status: Acute Plan: Patient is doing well after incision and drainage. I will actually am also give her some tetanus shot because she did not receive and in the emergency room. The microbiology is noted to be be diabetic stripped which is covered both by Vanco and Augmentin. Dressing changes have been recommended once the cultures are confirmed as well as the bone scan we will proceed with outlining her treatment for antibiotic therapy. She is to be discharged home in the next 24-48 hours to follow-up with me in the wound care center case management has been consulted
--- NOTE | 2016-11-28 13:29 | NM ---
EXAMINATION TYPE: NM bone 3 phase DATE OF EXAM: 11/28/2016 COMPARISON: NONE HISTORY: Left thigh and knee abscess. Triple phase bone scintigraphy was performed following the injection of27.5 mCi Tc 99m MDP. Immediat e images and 4 hours post injection images acquired. FINDINGS: The flow study shows hyperemia of the medial left thigh. This is in a circular distribution and consi stent with the presence of an abscess or inflammatory mass. The delayed images show normal uptake in the left and right femoral shafts. There is abnormal signifi cant increased uptake at the medial aspect of both knee joints. There is not a pattern of uptake to s uggest a fracture. IMPRESSION: Increased soft tissue uptake consistent with an inflammatory mass in the medial left thigh. No eviden ce of osteomyelitis. significant uptake at the knee joints consistent with osteoarthritis.
[2016-11-28] MEDS: METHADONE 5 MG TAB PO SCH (13:42)
[2016-11-28] MEDS: METHADONE 10 MG TAB PO SCH (13:43)
--- NOTE | 2016-11-28 15:19 | PN ---
DATE OF SERVICE: 11/28/2016 Ms. Holly Erickson is a 46-year-old female who is seen, evaluated, examined on the fifth floor. Patient is on her way to a bone scan. Clinically patient is status post doing better, status post I&D for left thigh abscess. For operative details, please refer to the operative note. Her hemodynamic status is stable. Last set of vitals include blood pressure is 140/71, respiratory rate 16 to 18, heart rate is 59, temperature is 98, saturation of 98%. HEENT EXAMINATION: Otherwise unremarkable. NECK: Supple. LUNGS: Good air entry bilaterally. HEART: Regular rate and rhythm. S1 and S2 audible. ABDOMEN: Soft. EXTREMITIES: +1 peripheral pulses. Wound culture results and reports are reviewed and aerobic culture no growth, Gram stain positive for gram-positive cocci. Final ID is pending. Blood cultures no growth so far. Current medications reviewed and include: 1. Tylenol as needed. 2. Unasyn 3 grams q.6 hourly. 3. Heparin for DVT prophylaxis. 4. Also on hydrocortisone 100 mg q.8. 5. Dilaudid for pain control. 6. Sliding scale insulin. 7. Vancomycin. IMPRESSION: 1. Left thigh abscess status post incision and drainage. 2. Sepsis, associated with the abscess. Cultures have been negative though. Patient is tolerating antibiotics fairly well. 3. Hyperglycemia, uncontrolled likely related to steroids. Will start tapering down to high hydrocortisone to 50 mg IV q.8. Hopefully once the patient is stable in next 24 to 48 hours, can go back on 80 mg prednisone off her home dose. 4. Morbid obesity of severe caliber. 5. Left leg pain. Patient is status post x-ray of the knee and femur. We will consult infectious disease service as well.
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
[2016-11-28 16:58] LABS: Glucose,Whole Blood 107 mg/dL (75-99)
[2016-11-28] MEDS ORDERED: VANCOMYCIN TROUGH DUE 1 EACH MISC MISCELLANE ONE (17:00)
[2016-11-28] MEDS: CLINDAMYCIN 900 MG in DEXTROSE 5% IN WATER 50 ML IVPB SCH ×4 (17:26→23:22)
[2016-11-28] MEDS: ceFAZolin 2 GM in SODIUM CHLORIDE 0.9% 100 ML IVPB SCH (18:04)
[2016-11-28 20:20] LABS: Glucose,Whole Blood 187 mg/dL (75-99)
[2016-11-28] MEDS: ENOXAPARIN 30 MG/0.3 ML SYRINGE SQ SCH (20:32)
[2016-11-29] MEDS: ceFAZolin 2 GM in SODIUM CHLORIDE 0.9% 100 ML IVPB SCH ×3 (00:50→18:00)
[2016-11-29] MEDS: HYDROmorphone 1 MG/ML 1 ML SYRINGE IV PRN ×3 (04:39→20:41)
[2016-11-29] MEDS: KETOROLAC 30 MG/ML 1 ML VIAL IVP SCH ×4 (05:19→23:47)
[2016-11-29] MEDS: HYDROmorphone PCA 5 MG/25 ML SYRINGE IV PRN ×3 (06:47→18:50)
[2016-11-29 06:53] LABS: Glucose,Whole Blood 186 mg/dL (75-99)
[2016-11-29] MEDS: CLINDAMYCIN 900 MG in DEXTROSE 5% IN WATER 50 ML IVPB SCH ×6 (07:10→23:47)
[2016-11-29] MEDS: HYDROCORTISONE SUCCINATE 100 MG/2 ML VIAL IV SCH ×3 (07:10→23:47)
[2016-11-29] MEDS: ENOXAPARIN 30 MG/0.3 ML SYRINGE SQ SCH ×2 (07:11→20:42)
[2016-11-29] MEDS: METHADONE 5 MG TAB PO SCH (07:24)
[2016-11-29] MEDS: METHADONE 10 MG TAB PO SCH (07:28)
[2016-11-29] MEDS: INSULIN LISPRO (humaLOG) 300 UNIT/3 ML VIAL SQ SCH ×4 (07:54→20:48)
[2016-11-29 07:59] LABS: Basophils % (A) 0 %; CH 28.7; CHCM 32.1; Eosinophils # (A) 0.1 k/uL (0-0.7); Eosinophils % (A) 1 %; HCT 34.3 % (34.0-46.0); HGB 10.8 gm/dL (11.4-16.0); Luc # (Auto) 0.19; Luc % (Auto) 1; Lymphocytes # (A) 1.6 k/uL (1.0-4.8); Lymphocytes % (A) 10 %; MCH 28.4 pg (25.0-35.0); MCHC 31.6 g/dL (31.0-37.0); MCV 89.9 fL (80.0-100.0); Mean Platelet Volume 6.9; Monocytes # (A) 0.6 k/uL (0-1.0); Monocytes % (A) 3 %; Neutrophils # (A) 13.8 k/uL (1.3-7.7); Neutrophils % (A) 85 %; RBC 3.81 m/uL (3.80-5.40); RDW 14.3 % (11.5-15.5); WBC 16.3 k/uL (3.8-10.6); WBC (Perox) 17.09
[2016-11-29 08:17] LABS: ALT 26 U/L (9-52); AST 15 U/L (14-36); Alkaline Phosphatase 58 U/L (38-126); Anion Gap 7 mmol/L; Blood Urea Nitrogen 26 mg/dL (7-17); Calcium 8.8 mg/dL (8.4-10.2); Carbon Dioxide 27 mmol/L (22-30); Chloride 104 mmol/L (98-107); Glucose 145 mg/dL (74-99); Non-African American GFR(MDRD) >60 (>60 ml/min/1.73 sqM); Potassium 4.1 mmol/L (3.5-5.1); Sodium 138 mmol/L (137-145); Total Bilirubin 0.4 mg/dL (0.2-1.3); Total Protein 5.6 g/dL (6.3-8.2)
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
[2016-11-29 09:22] LABS: Hemoglobin A1C 6.7 % (4.2-6.1)
[2016-11-29] MEDS ORDERED: RX INFO: IV CONTRAST WAS GIVEN 1 EACH MISC MISCELLANE PRN (10:00)
--- NOTE | 2016-11-29 10:18 | P.PN ---
Subjective 46-year-old female seen and examined this morning being followed by surgical service for management of a left thigh abscess. Patient is status post an incision and drainage of the left thigh abscess done on November 27. Patient reports continues to have significant pain with poor pain control involving the left thigh. Patient did have a bone scan done results show no evidence of osteomyelitis findings were discussed with the patient. Patient currently is being followed by infectious disease as well as medicine service. Did discuss with the patient the plan will be to do a CAT scan of the left upper thigh today with contrast to evaluate the abscess. We'll await further recommendations by Dr. Colon infectious disease Objective - Vital Signs Vital signs: Vital Signs Temp 98 F 11/29/16 07:00 Pulse 56 L 11/29/16 07:00 Resp 16 11/29/16 07:00 BP 126/74 11/29/16 07:00 Pulse Ox 99 11/29/16 07:37 Intake & Output 11/28/16 11/29/16 11/29/16 18:59 06:59 18:59 Intake Total 1145 50 Balance 1145 50 Weight 167.829 kg Intake: Intake, IV Titration 665 Amount Ampicillin-Sulbactam 3 gm 100 In Sodium Chloride 0.9% 100 ml @ 100 mls/hr IVPB Q6HR [facility] Rx#:[id number] Lactated Ringers 1,000 ml 65 @ 20 mls/hr IV .Q24H [facility] Rx#:[id number] Vancomycin 2,250 mg In 500 Sodium Chloride 0.9% 500 ml @ 167 mls/hr IVPB Q12HR@0600,1800 [facility] Rx#: [id number] Oral 480 50 Other: Voiding Method Bedside Commode Bedside Commode Incontinent Incontinent # Voids 5 1 # Bowel Movements 1 - Exam GENERAL APPEARANCE: 46-year-old morbidly obese female patient is alert, oriented , in no acute distress. Sitting up in bed VITAL SIGNS: Reviewed HEENT: Head is normocephalic and atraumatic. Pupils are equal and reactive. The nares are patent. Oropharynx is clear without lesions. NECK: Supple without lymphadenopathy. Traches midline. HEART: S1, S2. Regular rate and rhythm. No murmur noted denying chest pain LUNGS: No crackles or wheezes are heard. Adequate air movement ABDOMEN: Soft, nontender, nondistended with good bowel sounds. No peritoneal signs. No palpable organomegaly or masses. EXTREMITIES: Normal skin color and turgor. Dressing left thigh removed there is a scant amount of drainage no odor noted decreased redness to the left upper thigh decrease induration patient continues to report having pain in the left thigh site. Radial pedal pulses are 2/4 bilaterally. NEUROLOGICAL: No focal deficits. Strength and sensation are grossly intact. - Labs CBC & Chem 7: 11/29/16 07:11 11/29/16 07:11 Labs: Abnormal Lab Results - Last 24 Hours (Table) 11/28/16 11/28/16 11/28/16 Range/Units 06:51 11:29 16:50 WBC (3.8-10.6) k/uL Hgb (11.4-16.0) gm/dL Neutrophils # (1.3-7.7) k/uL BUN (7-17) mg/dL Glucose (74-99) mg/dL POC Glucose (mg/dL) 172 H 107 H (75-99) mg/dL Hemoglobin A1c 6.7 H (4.2-6.1) % Total Protein (6.3-8.2) g/dL Albumin (3.5-5.0) g/dL 11/28/16 11/29/16 11/29/16 Range/Units 20:18 06:51 07:11 WBC 16.3 H (3.8-10.6) k/uL Hgb 10.8 L (11.4-16.0) gm/dL Neutrophils # 13.8 H (1.3-7.7) k/uL BUN (7-17) mg/dL Glucose (74-99) mg/dL POC Glucose (mg/dL) 187 H 186 H (75-99) mg/dL Hemoglobin A1c (4.2-6.1) % Total Protein (6.3-8.2) g/dL Albumin (3.5-5.0) g/dL 11/29/16 Range/Units 07:11 WBC (3.8-10.6) k/uL Hgb (11.4-16.0) gm/dL Neutrophils # (1.3-7.7) k/uL BUN 26 H (7-17) mg/dL Glucose 145 H (74-99) mg/dL POC Glucose (mg/dL) (75-99) mg/dL Hemoglobin A1c (4.2-6.1) % Total Protein 5.6 L (6.3-8.2) g/dL Albumin 2.9 L (3.5-5.0) g/dL Microbiology - Last 24 Hours (Table) 11/26/16 17:25 Blood Culture - Preliminary Blood No Growth after 48 hours 11/27/16 10:34 Gram Stain - Preliminary Thigh - Left Wound Culture - Preliminary Beta Hemolytic Strep Group G Assessment and Plan Plan: Impression Present on admission left thigh abscess with cellulitis with positive cultures growing beta hemolytic strep group G Status post November 27 incision and drainage of the left thigh abscess Chronic back pain on chronic methadone Morbid obesity BMI 53 Pulmonary sarcoidosis on chronic prednisone Chronic immunosuppressive with chronic prednisone therapy History of a fall November 09 resulting in a infection of a hematoma left thigh and left knee laceration secondary to trauma failed outpatient treatment on antibiotics Plan CAT scan of the left thigh with contrast follow up on results Pain control DVT and GI prophylaxis Continue recommendations by infectious disease for IV antibiotics Resume home meds as appropriate Anticipate discharge in the next 48 hours with the plan the patient will follow- up with the wound care center with Dr. parekh The above dictated assessment and findings were discussed with dr parekh Impression and the plan of care have been dictated as directed. Arlene Kendrick nurse practitioner acting as a scribe for dr parekh
[2016-11-29] MEDS: LACTATED RINGERS 1,000 ML IV SCH (11:27)
[2016-11-29 11:29] LABS: Glucose,Whole Blood 120 mg/dL (75-99)
[2016-11-29] MEDS: CHOLECALCIFEROL 1,000 UNIT TAB PO SCH (11:32)
--- NOTE | 2016-11-29 12:38 | CT ---
EXAMINATION TYPE: CT lower extremity LT w con DATE OF EXAM: 11/29/2016 COMPARISON: Ultrasound 11/26/2016 HISTORY: Lt upper medial abscess CT DLP: 1849.5 mGycm Automated exposure control for dose reduction was used. CONTRAST: Performed with IV Contrast, patient injected with 100 mL of Omnipaque 300. FINDINGS: Within the mid medial superficial soft tissues aren't small collection of air with some inflammatory change. This area corresponds to the area identified on ultrasound. Underlying abscess however is not identified. There may been drainage without underlying residual. Resolving infection may be present at this level. Deep musculature and osseous structures appear normal. Reconstructed images in the coronal and sagitt al plane are available. IMPRESSION: THERE APPEARS TO BE SURGICAL EXCISION AND DRAINAGE OF THE SUPERFICIAL SUPERIOR MEDIAL LEFT THIGH ABSC ESS. NO UNDERLYING RESIDUAL ABSCESS IS EVIDENT.
--- NOTE | 2016-11-29 12:46 | P.PN ---
Subjective Principal diagnosis: Sarcoidosis, cellulitis Patient seen and examined. Patient states her breathing is at baseline. She does get SOB with exertion. She is planning to take a shower today. She says in the past she has been on multiple medications for her sarcoid, but none helped. The only one that helped was Enbrel, but it was off-label so the insurance company wouldn't pay for it. She has been on Prednisone 80mg daily for over a year. Objective - Vital Signs Vital signs: Vital Signs Temp 98 F 11/29/16 07:00 Pulse 56 L 11/29/16 07:00 Resp 16 11/29/16 07:00 BP 126/74 11/29/16 07:00 Pulse Ox 99 11/29/16 11:05 Intake & Output 11/28/16 11/29/16 11/29/16 18:59 06:59 18:59 Intake Total 1145 50 Balance 1145 50 Weight 167.829 kg Intake: Intake, IV Titration 665 Amount Ampicillin-Sulbactam 3 gm 100 In Sodium Chloride 0.9% 100 ml @ 100 mls/hr IVPB Q6HR [facility] Rx#:[id number] Lactated Ringers 1,000 ml 65 @ 20 mls/hr IV .Q24H [facility] Rx#:[id number] Vancomycin 2,250 mg In 500 Sodium Chloride 0.9% 500 ml @ 167 mls/hr IVPB Q12HR@0600,1800 [facility] Rx#: [id number] Oral 480 50 Other: Voiding Method Bedside Commode Bedside Commode Toilet Incontinent Incontinent # Voids 5 1 # Bowel Movements 1 - Exam General: A+OX3, NAD, morbidly obese CV: RRR, s1/s2 Lungs: diminished, otherwise clear Abd: soft, NT/ND, +BS Ext: left thigh erythema, +edema - Labs CBC & Chem 7: 11/29/16 07:11 11/29/16 07:11 Labs: Abnormal Lab Results - Last 24 Hours (Table) 11/28/16 11/28/16 11/28/16 Range/Units 06:51 16:50 20:18 WBC (3.8-10.6) k/uL Hgb (11.4-16.0) gm/dL Neutrophils # (1.3-7.7) k/uL BUN (7-17) mg/dL Glucose (74-99) mg/dL POC Glucose (mg/dL) 107 H 187 H (75-99) mg/dL Hemoglobin A1c 6.7 H (4.2-6.1) % Total Protein (6.3-8.2) g/dL Albumin (3.5-5.0) g/dL 11/29/16 11/29/16 11/29/16 Range/Units 06:51 07:11 07:11 WBC 16.3 H (3.8-10.6) k/uL Hgb 10.8 L (11.4-16.0) gm/dL Neutrophils # 13.8 H (1.3-7.7) k/uL BUN 26 H (7-17) mg/dL Glucose 145 H (74-99) mg/dL POC Glucose (mg/dL) 186 H (75-99) mg/dL Hemoglobin A1c (4.2-6.1) % Total Protein 5.6 L (6.3-8.2) g/dL Albumin 2.9 L (3.5-5.0) g/dL 11/29/16 Range/Units 11:27 WBC (3.8-10.6) k/uL Hgb (11.4-16.0) gm/dL Neutrophils # (1.3-7.7) k/uL BUN (7-17) mg/dL Glucose (74-99) mg/dL POC Glucose (mg/dL) 120 H (75-99) mg/dL Hemoglobin A1c (4.2-6.1) % Total Protein (6.3-8.2) g/dL Albumin (3.5-5.0) g/dL Microbiology - Last 24 Hours (Table) 11/26/16 17:25 Blood Culture - Preliminary Blood No Growth after 48 hours 11/27/16 10:34 Gram Stain - Preliminary Thigh - Left Wound Culture - Preliminary Beta Hemolytic Strep Group G Assessment and Plan Plan: Left thigh abscess with cellulitis, beta hemolytic strep group G Status post November 27 incision and drainage of the left thigh abscess Chronic back pain on chronic methadone Morbid obesity BMI 53 Pulmonary sarcoidosis Immunocompromised state due to chronic prednisone Leukocytosis, sepsis Hyperglycemia Patient has previously failed alternative treatments for sarcoid Morbid obesity, question underlying AMBER Plan Continue Prednisone Bronchodilators Pulmicort Pain control ABX per ID DVT and GI prophylaxis Outpatient pulmonary follow up - possible PSG
[2016-11-29] MEDS: GABAPENTIN 100 MG CAP PO SCH ×3 (13:15→23:47)
--- NOTE | 2016-11-29 14:37 | P.PN ---
Subjective This is a 46-year-old -[place] female patient of Dr. 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 She follows with a sarcoidosis specialist at [facility] has been on prednisone. She was on Enbrel for 3 years and insurance refused to cover. She is not on any disease modifying agents recently She presented to [facility] emergency center. Secondary to pain swelling in the left eye accompanied by an abscess, she mentioned that she had fallen from her wheelchair when she was getting off the bus on a pill on , x-rays were done at that time, she developed an abrasion secondary to injury, reports there were no visible inspection off the wound, she returned later is significant cellulitis and abscess formation, she was started on Bactrim for she did not improve with that, she was now admitted under the service of Dr. Hernandez with postoperative treatment to include IND off the left thigh abscess left knee abscess, left thigh measures 5.5 cm x 9.5 cm x 2 cm induration, and the left knee was 3.5 cm x 2 cm x 0.1 cm all of which were drained intraoperatively by Dr. Hernandez patient was seen postoperatively and is lethargic and drowsy easily awakens however would drift back to sleep few answers to my interview 11/28: Patient's doing better alert oriented, pain is under better control, however she needs to be started on her methadone today, x-rays failed to reveal any osteomyelitis on the thigh, nuclear med bone scan shows soft tissue uptake without any osteomyelitis, left medial thigh wound cultures growing that the hemolytic strep group G blood cultures currently negative, patient on IV vancomycin and IV Unasyn and will decrease Solu-Cortef to 50 mg every 8 hours and most likely resume oral prednisone 80 mg in the next 1-2 day, hemoglobin A1c is pending 11/29: Patient is followed by Dr. Colon from infectious disease with recommendations to discontinue vancomycin and Unasyn and continue on ceftezole and clindamycin. Local wound care to the thigh areas Aquacel Ag and to the left knee wound is medihoney. Patient is complaining of cramps in her hands and legs for which gabapentin has been added. Hemoglobin is at 10.8 for which iron studies have been ordered. Objective - Vital Signs Vital signs: Vital Signs Temp 98 F 11/29/16 07:00 Pulse 56 L 11/29/16 07:00 Resp 16 11/29/16 07:00 BP 126/74 11/29/16 07:00 Pulse Ox 99 11/29/16 07:37 Intake & Output 11/28/16 11/29/16 11/29/16 18:59 06:59 18:59 Intake Total 1145 50 Balance 1145 50 Weight 167.829 kg Intake: Intake, IV Titration 665 Amount Ampicillin-Sulbactam 3 gm 100 In Sodium Chloride 0.9% 100 ml @ 100 mls/hr IVPB Q6HR [facility] Rx#:[id number] Lactated Ringers 1,000 ml 65 @ 20 mls/hr IV .Q24H [facility] Rx#:[id number] Vancomycin 2,250 mg In 500 Sodium Chloride 0.9% 500 ml @ 167 mls/hr IVPB Q12HR@0600,1800 [facility] Rx#: [id number] Oral 480 50 Other: Voiding Method Bedside Commode Bedside Commode Incontinent Incontinent # Voids 5 1 # Bowel Movements 1 - Exam General appearance: Present: cooperative, no acute distress, obese - EENT Eyes: Present: anicteric sclerae, EOMI, PERRLA, dentition normal ENT: Present: hearing grossly normal, normal oropharynx - Neck Neck: Present: normal ROM - Respiratory Respiratory: bilateral: CTA, negative: diminished, dullness, rales, rhonchi - Cardiovascular Rhythm: regular Heart sounds: normal: S1, S2 Abnormal Heart Sounds: Absent: systolic murmur, diastolic murmur, rub, S3 Gallop , S4 Gallop, click, other - Gastrointestinal General gastrointestinal: Present: normal bowel sounds, soft - Integumentary Integumentary: Present: normal, normal turgor, ulcer (Left thigh hasn't surgical wound no significant drainage, left knee has surgical wound no significant drainage) - Neurologic Neurologic: Present: CNII-XII intact - Musculoskeletal Musculoskeletal: Present: gait normal, strength equal bilaterally - Psychiatric Psychiatric: Present: A&O x's 3, appropriate affect, intact judgment & insight - Labs CBC & Chem 7: 11/29/16 07:11 11/29/16 07:11 Labs: Abnormal Lab Results - Last 24 Hours (Table) 11/28/16 11/28/16 11/28/16 Range/Units 11:29 16:50 20:18 WBC (3.8-10.6) k/uL Hgb (11.4-16.0) gm/dL Neutrophils # (1.3-7.7) k/uL BUN (7-17) mg/dL Glucose (74-99) mg/dL POC Glucose (mg/dL) 172 H 107 H 187 H (75-99) mg/dL Total Protein (6.3-8.2) g/dL Albumin (3.5-5.0) g/dL 11/29/16 11/29/16 11/29/16 Range/Units 06:51 07:11 07:11 WBC 16.3 H (3.8-10.6) k/uL Hgb 10.8 L (11.4-16.0) gm/dL Neutrophils # 13.8 H (1.3-7.7) k/uL BUN 26 H (7-17) mg/dL Glucose 145 H (74-99) mg/dL POC Glucose (mg/dL) 186 H (75-99) mg/dL Total Protein 5.6 L (6.3-8.2) g/dL Albumin 2.9 L (3.5-5.0) g/dL Microbiology - Last 24 Hours (Table) 11/26/16 17:25 Blood Culture - Preliminary Blood No Growth after 48 hours 11/27/16 10:34 Gram Stain - Preliminary Thigh - Left Wound Culture - Preliminary Beta Hemolytic Strep Group G Assessment and Plan Plan: 1. Left leg abscess with cellulitis, left inner left knee, cultures growing beta-hemolytic strep group G underwent I&D by Dr. Hernandez on 11/27/2016 cultures have been sent intraoperatively, currently covered with IV Cefizox and clindamycin, blood cultures has been sent. x-rays and nuclear med triple phase bone scan performed negative for osteomyelitis Dr. Colon on consult from infectious disease 2. Pulmonary sarcoidosis on chronic prednisone. Dr. Anderson is on consult. Patient is stable. Patient started on Pulmicort twice daily, DuoNeb treatments , continue prednisone with Dr. Anderson is on consult patient is not on any disease modifying agents/DMARD's 3. Chronic back pain on chronic methadone which will be continued once mentation is improved, most likely in the next 24 hours post op. Continue Zanaflex. 4. BMI of 53, patient denies any history of obstructive sleep apnea however she cannot remember whether she's been studied or not, no prior history of DVT or PE, 5. DVT prophylaxis. Patient is on heparin.q 6. Chronic steroid use, hydrocortisone IV 100 mg every 8 hours was started and this was transitioned over the next 48 hours to oral prednisone or pulmonary sarcoid hemoglobin A1c will be obtained and blood sugars will be monitored, him a decrease Cortef to 50 mg every 8 hours starting November 28 7. Hyperglycemia, most likely secondary to chronic ongoing prednisone hemoglobin A1c is currently pending, it to manage sugars more aggressively secondary to ongoing wounds, 8. Gastro-intestinal prophylaxis. Continue Protonix. Discharge plan: Return home Impression and plan of care have been directed as dictated by the signing physician. Jeanne Roca nurse practitioner acting as scribe for signing physician.
[2016-11-29 15:01] LABS: Magnesium 2.1 mg/dL (1.6-2.3)
[2016-11-29 15:10] LABS: % Iron Saturation 22.1 % (20-50)
[2016-11-29 16:58] LABS: Glucose,Whole Blood 114 mg/dL (75-99)
[2016-11-29 20:16] LABS: Glucose,Whole Blood 154 mg/dL (75-99)
--- NOTE | 2016-11-29 22:40 | PN ---
DATE OF SERVICE: 11/29/2016 REASON FOR FOLLOWUP: Left thigh abscess and cellulitis. INTERVAL HISTORY: The patient is afebrile. She has been complaining of more pain in her left thigh area. The patient denies having significant chest pain or shortness of breath. No cough. No abdominal pain or any diarrhea. On examination, blood pressure is 138/92 with a pulse of 63, temperature 98.4. She is 100% on 3 L nasal cannula. General description is a middle-aged female up in the bed in no distress. RESPIRATORY SYSTEM: Unlabored breathing. Clear to auscultation anteriorly. HEART: S1, S2. Regular rate and rhythm. ABDOMEN: Soft. Left thigh is currently dressed up. LABS: Hemoglobin 10.8. White count of 16.3, down from yesterday of 18. BUN 26, creatinine 0.77. Cultures with a group G strep and presumptive Staph aureus. DIAGNOSTIC IMPRESSION AND PLAN: Patient with left thigh abscess, status post drainage. Culture has been group G strep. She is currently covered with cefazolin and clindamycin. That will be continued. Continue local wound care with Aquacel Silver packing. She did have a CT that did not show any residual abscess ( )
[2016-11-30] MEDS: ceFAZolin 2 GM in SODIUM CHLORIDE 0.9% 100 ML IVPB SCH ×3 (03:34→17:24)
[2016-11-30] MEDS: KETOROLAC 30 MG/ML 1 ML VIAL IVP SCH ×3 (04:53→17:24)
[2016-11-30] MEDS: HYDROmorphone PCA 5 MG/25 ML SYRINGE IV PRN ×2 (04:54→18:09)
[2016-11-30 07:24] LABS: Glucose,Whole Blood 127 mg/dL (75-99)
[2016-11-30] MEDS: INSULIN LISPRO (humaLOG) 300 UNIT/3 ML VIAL SQ SCH ×4 (07:53→22:08)
[2016-11-30] MEDS: CLINDAMYCIN 900 MG in DEXTROSE 5% IN WATER 50 ML IVPB SCH ×4 (08:01→16:32)
[2016-11-30] MEDS: HYDROCORTISONE SUCCINATE 100 MG/2 ML VIAL IV SCH (08:03)
[2016-11-30] MEDS: ENOXAPARIN 30 MG/0.3 ML SYRINGE SQ SCH ×2 (08:04→22:04)
[2016-11-30] MEDS: GABAPENTIN 100 MG CAP PO SCH ×3 (08:04→22:08)
[2016-11-30 08:20] LABS: ALT 23 U/L (9-52); AST 13 U/L (14-36); Alkaline Phosphatase 56 U/L (38-126); Anion Gap 5 mmol/L; Blood Urea Nitrogen 24 mg/dL (7-17); Calcium 8.6 mg/dL (8.4-10.2); Carbon Dioxide 31 mmol/L (22-30); Chloride 103 mmol/L (98-107); Glucose 127 mg/dL (74-99); Non-African American GFR(MDRD) >60 (>60 ml/min/1.73 sqM); Potassium 4.3 mmol/L (3.5-5.1); Sodium 139 mmol/L (137-145); Total Bilirubin 0.3 mg/dL (0.2-1.3); Total Protein 5.7 g/dL (6.3-8.2)
[2016-11-30] MEDS: METHADONE 5 MG TAB PO SCH (08:21)
[2016-11-30] MEDS: METHADONE 10 MG TAB PO SCH (08:22)
[2016-11-30 08:40] LABS: Basophils % (A) 0 %; CH 28.6; Eosinophils # (A) 0.1 k/uL (0-0.7); Eosinophils % (A) 0 %; HCT 34.1 % (34.0-46.0); HDW 2.44; HGB 11.1 gm/dL (11.4-16.0); Luc # (Auto) 0.28; Luc % (Auto) 3; Lymphocytes # (A) 1.9 k/uL (1.0-4.8); Lymphocytes % (A) 17 %; MCH 28.2 pg (25.0-35.0); MCHC 32.5 g/dL (31.0-37.0); MCV 86.9 fL (80.0-100.0); Mean Platelet Volume 7.1; Monocytes # (A) 0.5 k/uL (0-1.0); Monocytes % (A) 5 %; Neutrophils # (A) 8.4 k/uL (1.3-7.7); Neutrophils % (A) 75 %; RBC 3.92 m/uL (3.80-5.40); WBC 11.1 k/uL (3.8-10.6); WBC (Perox) 11.69
[2016-11-30 11:20] LABS: Glucose,Whole Blood 139 mg/dL (75-99)
--- NOTE | 2016-11-30 12:08 | P.PN ---
Subjective 46-year-old female sitting up in a chair being seen in follow-up visit. Patient is status post incision and drainage of the left thigh abscess done on November 27. Patient states she's concerned about her pain issues when she is discharged. Currently is on IV dilaudid . Will defer to medicine to address pain issues. Patient did undergo a bone scan which showed no evidence of osteomyelitis. Additionally patient had a CAT scan of the left upper thigh done November 29 no underlying residual abscess noted additionally patients being followed by infectious disease will defer to 2 address antibiotics currently on clindamycin and cefazolin. Objective - Vital Signs Vital signs: Vital Signs Temp 97.9 F 11/30/16 07:00 Pulse 56 L 11/30/16 08:00 Resp 20 11/30/16 08:00 BP 131/72 11/30/16 07:00 Pulse Ox 98 11/30/16 07:28 Intake & Output 11/29/16 11/30/16 11/30/16 18:59 06:59 18:59 Intake Total 1580 4009 Balance 1580 4009 Weight 167.829 kg 167.829 kg Intake: Intake, IV Titration 380 3769 Amount Ampicillin-Sulbactam 3 gm 100 In Sodium Chloride 0.9% 100 ml @ 100 mls/hr IVPB Q6HR [facility] Rx#:[id number] Clindamycin 900 mg In 100 119 Dextrose 5% in Water 50 ml @ 100 mls/hr IVPB Q8HR [facility] Rx#:[id number] Lactated Ringers 1,000 ml 180 3650 @ 20 mls/hr IV .Q24H [facility] Rx#:[id number] Oral 1200 240 Other: Voiding Method Toilet Toilet Toilet # Voids 3 2 # Bowel Movements 1 - Exam Physical exam 46-year-old female sitting up in a chair legs elevated pleasant cooperative oriented 3 Lungs essentially clear adequate air movement heart S1-S2 audible regular Abdomen obese soft nontender reports no nausea vomiting Extremities dressing to the left thigh and left knee dry no drainage noted. The left knee dressing removed inspected therahoney dressing in place thigh dressing removed and inspected scant amount of drainage noted on dressing no odor noted - Labs CBC & Chem 7: 11/30/16 07:13 11/30/16 07:13 Labs: Abnormal Lab Results - Last 24 Hours (Table) 11/29/16 11/29/16 11/29/16 Range/Units 07:11 16:56 20:14 WBC (3.8-10.6) k/uL Hgb (11.4-16.0) gm/dL Neutrophils # (1.3-7.7) k/uL Carbon Dioxide (22-30) mmol/L BUN (7-17) mg/dL Glucose (74-99) mg/dL POC Glucose (mg/dL) 114 H 154 H (75-99) mg/dL TIBC 253 L (265-497) ug/dL AST (14-36) U/L Total Protein (6.3-8.2) g/dL Albumin (3.5-5.0) g/dL 11/30/16 11/30/16 11/30/16 Range/Units 07:13 07:13 07:22 WBC 11.1 H (3.8-10.6) k/uL Hgb 11.1 L (11.4-16.0) gm/dL Neutrophils # 8.4 H (1.3-7.7) k/uL Carbon Dioxide 31 H (22-30) mmol/L BUN 24 H (7-17) mg/dL Glucose 127 H (74-99) mg/dL POC Glucose (mg/dL) 127 H (75-99) mg/dL TIBC (265-497) ug/dL AST 13 L (14-36) U/L Total Protein 5.7 L (6.3-8.2) g/dL Albumin 3.0 L (3.5-5.0) g/dL 11/30/16 Range/Units 11:18 WBC (3.8-10.6) k/uL Hgb (11.4-16.0) gm/dL Neutrophils # (1.3-7.7) k/uL Carbon Dioxide (22-30) mmol/L BUN (7-17) mg/dL Glucose (74-99) mg/dL POC Glucose (mg/dL) 139 H (75-99) mg/dL TIBC (265-497) ug/dL AST (14-36) U/L Total Protein (6.3-8.2) g/dL Albumin (3.5-5.0) g/dL Microbiology - Last 24 Hours (Table) 06/09/17 17:25 Blood Culture - Preliminary Blood No Growth after 72 hours 11/27/16 10:34 Gram Stain - Preliminary Thigh - Left Wound Culture - Preliminary Beta Hemolytic Strep Group G Presumptive Staph aureus 11/27/16 10:34 Anaerobic Culture - Preliminary Thigh - Left Assessment and Plan Plan: Impression Present on admission left thigh abscess with cellulitis with positive cultures growing beta hemolytic strep group G Status post November 27 incision and drainage of the left thigh abscess Chronic back pain on chronic methadone Morbid obesity BMI 53 Pulmonary sarcoidosis on chronic prednisone Chronic immunosuppressive with chronic prednisone therapy History of a fall November 09 resulting in a infection of a hematoma left thigh and left knee laceration secondary to trauma failed outpatient treatment on antibiotics Plan Medicine service to address pain issues Medicine service to address tapering Cortef currently on 50 mg IV every 8 Pain control DVT and GI prophylaxis Continue recommendations by infectious disease for antibiotics Resume home meds as appropriate Anticipate discharge in the next 24 hours with the plan the patient will follow- up with the wound care center with Dr. parekh Wound care as ordered The above dictated assessment and findings were discussed with dr parekh Impression and the plan of care have been dictated as directed. Arlene Kendrick nurse practitioner acting as a scribe for dr parekh
[2016-11-30] MEDS: CHOLECALCIFEROL 1,000 UNIT TAB PO SCH (12:17)
--- NOTE | 2016-11-30 13:51 | P.PN ---
Subjective This is a 46-year-old -[place] female patient of Dr. 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 She follows with a sarcoidosis specialist at [facility] has been on prednisone. She was on Enbrel for 3 years and insurance refused to cover. She is not on any disease modifying agents recently She presented to [facility] emergency center. Secondary to pain swelling in the left eye accompanied by an abscess, she mentioned that she had fallen from her wheelchair when she was getting off the bus on a pill on , x-rays were done at that time, she developed an abrasion secondary to injury, reports there were no visible inspection off the wound, she returned later is significant cellulitis and abscess formation, she was started on Bactrim for she did not improve with that, she was now admitted under the service of Dr. Hernandez with postoperative treatment to include IND off the left thigh abscess left knee abscess, left thigh measures 5.5 cm x 9.5 cm x 2 cm induration, and the left knee was 3.5 cm x 2 cm x 0.1 cm all of which were drained intraoperatively by Dr. Hernandez patient was seen postoperatively and is lethargic and drowsy easily awakens however would drift back to sleep few answers to my interview 11/28: Patient's doing better alert oriented, pain is under better control, however she needs to be started on her methadone today, x-rays failed to reveal any osteomyelitis on the thigh, nuclear med bone scan shows soft tissue uptake without any osteomyelitis, left medial thigh wound cultures growing that the hemolytic strep group G blood cultures currently negative, patient on IV vancomycin and IV Unasyn and will decrease Solu-Cortef to 50 mg every 8 hours and most likely resume oral prednisone 80 mg in the next 1-2 day, hemoglobin A1c is pending 11/29: Patient is followed by Dr. Colon from infectious disease with recommendations to discontinue vancomycin and Unasyn and continue on ceftezole and clindamycin. Local wound care to the thigh areas Aquacel Ag and to the left knee wound is medihoney. Patient is complaining of cramps in her hands and legs for which gabapentin has been added. Hemoglobin is at 10.8 for which iron studies have been ordered. 11/30: Patient has been cleared for discharge by surgeon. Patient is currently on a INDEPEND[employer]ENT [employer]IC [employer]UCATION for which attempts are being made to contact her pain management doctor , Dr. Taveras at [place]. Solu-Cortef will be switched over to prednisone 80 mg daily. Objective - Vital Signs Vital signs: Vital Signs Temp 97.9 F 11/30/16 07:00 Pulse 56 L 11/30/16 08:00 Resp 20 11/30/16 08:00 BP 131/72 11/30/16 07:00 Pulse Ox 98 11/30/16 07:28 Intake & Output 11/29/16 11/30/16 11/30/16 18:59 06:59 18:59 Intake Total 1580 4009 Balance 1580 4009 Weight 167.829 kg 167.829 kg Intake: Intake, IV Titration 380 3769 Amount Ampicillin-Sulbactam 3 gm 100 In Sodium Chloride 0.9% 100 ml @ 100 mls/hr IVPB Q6HR [facility] Rx#:[id number] Clindamycin 900 mg In 100 119 Dextrose 5% in Water 50 ml @ 100 mls/hr IVPB Q8HR [facility] Rx#:[id number] Lactated Ringers 1,000 ml 180 3650 @ 20 mls/hr IV .Q24H [facility] Rx#:[id number] Oral 1200 240 Other: Voiding Method Toilet Toilet Toilet # Voids 3 2 # Bowel Movements 1 - Exam General appearance: Present: cooperative, no acute distress, obese - EENT Eyes: Present: anicteric sclerae, EOMI, PERRLA, dentition normal ENT: Present: hearing grossly normal, normal oropharynx - Neck Neck: Present: normal ROM - Respiratory Respiratory: bilateral: CTA, negative: diminished, dullness, rales, rhonchi - Cardiovascular Rhythm: regular Heart sounds: normal: S1, S2 Abnormal Heart Sounds: Absent: systolic murmur, diastolic murmur, rub, S3 Gallop , S4 Gallop, click, other - Gastrointestinal General gastrointestinal: Present: normal bowel sounds, soft - Integumentary Integumentary: Present: normal, normal turgor, ulcer (Left thigh hasn't surgical wound no significant drainage, left knee has surgical wound no significant drainage) - Neurologic Neurologic: Present: CNII-XII intact - Musculoskeletal Musculoskeletal: Present: gait normal, strength equal bilaterally - Psychiatric Psychiatric: Present: A&O x's 3, appropriate affect, intact judgment & insight - Labs CBC & Chem 7: 11/30/16 07:13 11/30/16 07:13 Labs: Abnormal Lab Results - Last 24 Hours (Table) 11/29/16 11/29/16 11/29/16 Range/Units 07:11 11:27 16:56 WBC (3.8-10.6) k/uL Hgb (11.4-16.0) gm/dL Neutrophils # (1.3-7.7) k/uL Carbon Dioxide (22-30) mmol/L BUN (7-17) mg/dL Glucose (74-99) mg/dL POC Glucose (mg/dL) 120 H 114 H (75-99) mg/dL TIBC 253 L (265-497) ug/dL AST (14-36) U/L Total Protein (6.3-8.2) g/dL Albumin (3.5-5.0) g/dL 11/29/16 11/30/16 11/30/16 Range/Units 20:14 07:13 07:13 WBC 11.1 H (3.8-10.6) k/uL Hgb 11.1 L (11.4-16.0) gm/dL Neutrophils # 8.4 H (1.3-7.7) k/uL Carbon Dioxide 31 H (22-30) mmol/L BUN 24 H (7-17) mg/dL Glucose 127 H (74-99) mg/dL POC Glucose (mg/dL) 154 H (75-99) mg/dL TIBC (265-497) ug/dL AST 13 L (14-36) U/L Total Protein 5.7 L (6.3-8.2) g/dL Albumin 3.0 L (3.5-5.0) g/dL 11/30/16 Range/Units 07:22 WBC (3.8-10.6) k/uL Hgb (11.4-16.0) gm/dL Neutrophils # (1.3-7.7) k/uL Carbon Dioxide (22-30) mmol/L BUN (7-17) mg/dL Glucose (74-99) mg/dL POC Glucose (mg/dL) 127 H (75-99) mg/dL TIBC (265-497) ug/dL AST (14-36) U/L Total Protein (6.3-8.2) g/dL Albumin (3.5-5.0) g/dL Microbiology - Last 24 Hours (Table) 11/26/16 17:25 Blood Culture - Preliminary Blood No Growth after 72 hours 11/27/16 10:34 Gram Stain - Preliminary Thigh - Left Wound Culture - Preliminary Beta Hemolytic Strep Group G Presumptive Staph aureus 11/27/16 10:34 Anaerobic Culture - Preliminary Thigh - Left Assessment and Plan Plan: 1. Left leg abscess with cellulitis, left inner left knee, cultures growing beta-hemolytic strep group G underwent I&D by Dr. Hernandez on 11/27/2016 cultures have been sent intraoperatively, currently covered with IV Cefizox and clindamycin, blood cultures has been sent. x-rays and nuclear med triple phase bone scan performed negative for osteomyelitis Dr. Colon on consult from infectious disease 2. Pulmonary sarcoidosis on chronic prednisone. Dr. Anderson is on consult. Patient is stable. Patient started on Pulmicort twice daily, DuoNeb treatments , continue prednisone with Dr. Anderson is on consult patient is not on any disease modifying agents/DMARD's 3. Chronic back pain on chronic methadone which will be continued once mentation is improved. Continue Zanaflex. 4. BMI of 53, patient denies any history of obstructive sleep apnea however she cannot remember whether she's been studied or not, no prior history of DVT or PE, 5. DVT prophylaxis. Patient is on heparin.q 6. Chronic steroid use, hydrocortisone IV 100 mg every 8 hours was started and this was transitioned over the next 48 hours to oral prednisone or pulmonary sarcoid hemoglobin A1c will be obtained and blood sugars will be monitored, him a decrease Cortef to 50 mg every 8 hours starting November 28 7. Hyperglycemia, most likely secondary to chronic ongoing prednisone hemoglobin A1c is currently pending, it to manage sugars more aggressively secondary to ongoing wounds, 8. Gastro-intestinal prophylaxis. Continue Protonix. Discharge plan: Return home Impression and plan of care have been directed as dictated by the signing physician. Jeanne Roca nurse practitioner acting as scribe for signing physician.
[2016-11-30] MEDS: LACTATED RINGERS 1,000 ML IV SCH (14:39)
--- NOTE | 2016-11-30 14:49 | XR ---
EXAMINATION TYPE: XR chest 2V DATE OF EXAM: 11/30/2016 COMPARISON: 11/27/2016 TECHNIQUE: PA and lateral views submitted. Exam limited due to technique. HISTORY: Shortness of breath FINDINGS: Exam is technically limited with evidence of stable cardiomegaly. Could not exclude an interstitial p rocess or evidence of consolidation at the left lung base. Remaining lung tompkins are clear. Degenerat darlin change of the spine. Stable apical pleural thickening. No pneumothorax. IMPRESSION: 1. Limited exam demonstrates stable cardiomegaly. Could not exclude a mild central venous congestion or left basilar infiltrate.
[2016-11-30] MEDS: HYDROcodone/APAP 7.5-325MG 1 EACH TAB PO PRN (16:32)
[2016-11-30 16:39] LABS: Glucose,Whole Blood 153 mg/dL (75-99)
--- NOTE | 2016-11-30 17:40 | P.PN ---
Subjective Principal diagnosis: Cellulitis Patient seen and examined. Patient states her breathing is at baseline. She feels good overall except for the pain in her extremities. The patient is concerned about her narcotics and pain management. It is explained that this will be left up to the primary team. Objective - Vital Signs Vital signs: Vital Signs Temp 98.5 F 11/30/16 15:00 Pulse 62 11/30/16 16:00 Resp 16 11/30/16 16:00 BP 161/91 11/30/16 15:00 Pulse Ox 99 11/30/16 15:00 Intake & Output 11/29/16 11/30/16 11/30/16 18:59 06:59 18:59 Intake Total 1580 4009 Balance 1580 4009 Weight 167.829 kg 167.829 kg Intake: Intake, IV Titration 380 3769 Amount Ampicillin-Sulbactam 3 gm 100 In Sodium Chloride 0.9% 100 ml @ 100 mls/hr IVPB Q6HR [facility] Rx#:[id number] Clindamycin 900 mg In 100 119 Dextrose 5% in Water 50 ml @ 100 mls/hr IVPB Q8HR [facility] Rx#:[id number] Lactated Ringers 1,000 ml 180 3650 @ 20 mls/hr IV .Q24H [facility] Rx#:[id number] Oral 1200 240 Other: Voiding Method Toilet Toilet Toilet # Voids 3 2 1 # Bowel Movements 1 1 - Exam General: A+OX3, NAD, morbidly obese CV: RRR, s1/s2 Lungs: diminished, otherwise clear Abd: soft, NT/ND, +BS Ext: left thigh erythema, +edema - Labs CBC & Chem 7: 11/30/16 07:13 11/30/16 07:13 Labs: Abnormal Lab Results - Last 24 Hours (Table) 11/29/16 11/30/16 11/30/16 Range/Units 20:14 07:13 07:13 WBC 11.1 H (3.8-10.6) k/uL Hgb 11.1 L (11.4-16.0) gm/dL Neutrophils # 8.4 H (1.3-7.7) k/uL Carbon Dioxide 31 H (22-30) mmol/L BUN 24 H (7-17) mg/dL Glucose 127 H (74-99) mg/dL POC Glucose (mg/dL) 154 H (75-99) mg/dL AST 13 L (14-36) U/L Total Protein 5.7 L (6.3-8.2) g/dL Albumin 3.0 L (3.5-5.0) g/dL 11/30/16 11/30/16 11/30/16 Range/Units 07:22 11:18 16:38 WBC (3.8-10.6) k/uL Hgb (11.4-16.0) gm/dL Neutrophils # (1.3-7.7) k/uL Carbon Dioxide (22-30) mmol/L BUN (7-17) mg/dL Glucose (74-99) mg/dL POC Glucose (mg/dL) 127 H 139 H 153 H (75-99) mg/dL AST (14-36) U/L Total Protein (6.3-8.2) g/dL Albumin (3.5-5.0) g/dL Microbiology - Last 24 Hours (Table) 11/27/16 10:34 Gram Stain - Final Thigh - Left Wound Culture - Final Beta Hemolytic Strep Group G Staphylococcus aureus 11/26/16 17:25 Blood Culture - Preliminary Blood No Growth after 72 hours 11/27/16 10:34 Anaerobic Culture - Preliminary Thigh - Left Assessment and Plan Plan: Left thigh abscess with cellulitis, beta hemolytic strep group G Status post November 27 incision and drainage of the left thigh abscess Chronic back pain on chronic methadone Morbid obesity BMI 53 Pulmonary sarcoidosis Immunocompromised state due to chronic prednisone Leukocytosis, sepsis Hyperglycemia Patient has previously failed alternative treatments for sarcoid Morbid obesity, question underlying AMBER Plan Continue Prednisone to patient's baseline dose of 80mg daily Bronchodilators Pulmicort Pain control ABX per ID DVT and GI prophylaxis Outpatient pulmonary follow up - possible PSG
[2016-11-30 20:39] LABS: Glucose,Whole Blood 84 mg/dL (75-99)
[2016-12-01] MEDS: ceFAZolin 2 GM in SODIUM CHLORIDE 0.9% 100 ML IVPB SCH ×2 (00:09→12:23)
[2016-12-01] MEDS: HYDROcodone/APAP 7.5-325MG 1 EACH TAB PO PRN (01:26)
[2016-12-01] MEDS: CLINDAMYCIN 900 MG in DEXTROSE 5% IN WATER 50 ML IVPB SCH ×4 (01:27→09:03)
[2016-12-01] MEDS: HYDROmorphone PCA 5 MG/25 ML SYRINGE IV PRN (04:11)
--- NOTE | 2016-12-01 06:14 | PN ---
DATE OF SERVICE: 11/30/2016 Reason for followup is left thigh infected hematoma. INTERVAL HISTORY: The patient is afebrile. She is complaining of pain in her left thigh area, though improved from yesterday. No significant chest pain, shortness of breath or cough or any diarrhea. On examination, blood pressure 161/91 with pulse of 62, temperature 98.5. She is 99% on 3 L nasal cannula. General description is a middle-age female up in the chair in no distress. Left thigh was currently dressed up. LABS: Hemoglobin is 11.1, white count down to 11.1 with a BUN of 24, creatinine 0.79. Cultures did show group G strep and MSSA. DIAGNOSTIC IMPRESSION AND PLAN: Patient with left thigh infected hematoma, status post drainage. Culture with group G strep and methicillin-susceptible Staphylococcus aureus. Currently on clindamycin and cefazolin with local wound care including Aquacel Silver packing. Wound VAC was discussed with Dr. Hernandez the surgeon who was planning to apply it in the outpatient setting in the wound care. She is currently on cefazolin and clindamycin, depending on ( ) discharge antibiotics trending more towards the oral. Continue supportive care.
[2016-12-01 07:03] LABS: Glucose,Whole Blood 103 mg/dL (75-99)
[2016-12-01 07:56] VITALS: RESP 16
[2016-12-01] MEDS: INSULIN LISPRO (humaLOG) 300 UNIT/3 ML VIAL SQ SCH ×2 (08:01→12:26)
[2016-12-01] MEDS: METHADONE 5 MG TAB PO SCH (08:06)
[2016-12-01] MEDS: METHADONE 10 MG TAB PO SCH (08:07)
[2016-12-01] MEDS: GABAPENTIN 100 MG CAP PO SCH (08:07)
[2016-12-01] MEDS: ENOXAPARIN 30 MG/0.3 ML SYRINGE SQ SCH (08:08)
[2016-12-01 08:14] LABS: ALT 24 U/L (9-52); AST 12 U/L (14-36); Alkaline Phosphatase 54 U/L (38-126); Anion Gap 8 mmol/L; Blood Urea Nitrogen 21 mg/dL (7-17); Calcium 8.5 mg/dL (8.4-10.2); Carbon Dioxide 30 mmol/L (22-30); Chloride 101 mmol/L (98-107); Glucose 90 mg/dL (74-99); Non-African American GFR(MDRD) >60 (>60 ml/min/1.73 sqM); Potassium 3.6 mmol/L (3.5-5.1); Sodium 139 mmol/L (137-145); Total Bilirubin 0.3 mg/dL (0.2-1.3); Total Protein 5.8 g/dL (6.3-8.2)
[2016-12-01] MEDS ORDERED: predniSONE 20 MG TAB PO SCH (09:00)
[2016-12-01 11:38] LABS: Glucose,Whole Blood 174 mg/dL (75-99)
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
--- NOTE | 2016-12-01 12:00 | P.PN ---
Subjective 46-year-old female being seen on rounds morning. Currently is sitting up in a chair. Patient continues to report having pain in the left thigh. Patient states she has poor pain control. Did note the patient currently is receiving IV per [employer] dilaudid. Patients being followed by surgical service for a left thigh abscess with an incision and drainage currently on broad-spectrum antibiotics. Patients being followed by infectious disease. Present on admission sepsis meet SIRS criteria suspect due to left thigh abscess currently this morning there is dressing to the left knee and the left thigh which are dry Objective - Vital Signs Vital signs: Vital Signs Temp 98 F 12/01/16 07:00 Pulse 60 12/01/16 08:00 Resp 16 12/01/16 08:00 BP 158/86 12/01/16 07:00 Pulse Ox 99 12/01/16 07:00 Intake & Output 11/30/16 12/01/16 12/01/16 18:59 06:59 18:59 Intake Total 440 Balance 440 Weight 167.829 kg 167.829 kg Intake: Intake, IV Titration 440 Amount Clindamycin 900 mg In 100 Dextrose 5% in Water 50 ml @ 100 mls/hr IVPB Q8HR [facility] Rx#:[id number] Lactated Ringers 1,000 ml 240 @ 20 mls/hr IV .Q24H [facility] Rx#:[id number] ceFAZolin 2 gm In Sodium 100 Chloride 0.9% 100 ml @ 100 mls/hr IVPB Q8H [facility] Rx#:[id number] Other: Voiding Method Toilet Toilet Toilet # Voids 1 1 # Bowel Movements 1 1 - Exam GENERAL APPEARANCE: 46-year-old morbidly obese female patient is alert, oriented , in no acute distress. Sitting up in a chair reports still having pain in the left thigh VITAL SIGNS: Reviewed remains afebrile HEENT: Head is normocephalic and atraumatic. Pupils are equal and reactive. The nares are patent. Oropharynx is clear without lesions. NECK: Supple without lymphadenopathy. Traches midline. HEART: S1, S2. Regular rate and rhythm. No murmur noted denying chest pain LUNGS: No crackles or wheezes are heard. Adequate air movement ABDOMEN: Soft, nontender, nondistended with good bowel sounds. No peritoneal signs. No palpable organomegaly or masses. EXTREMITIES: Normal skin color and turgor. Dressing left thigh removed there is a scant amount of drainage no odor noted decreased redness to the left upper thigh decrease induration patient continues to report having pain in the left thigh site. Radial pedal pulses are 2/4 bilaterally. Dressing to the left knee dry - Labs CBC & Chem 7: 11/30/16 07:13 12/01/16 07:13 Labs: Abnormal Lab Results - Last 24 Hours (Table) 11/30/16 12/01/16 12/01/16 Range/Units 16:38 07:01 07:13 BUN 21 H (7-17) mg/dL POC Glucose (mg/dL) 153 H 103 H (75-99) mg/dL AST 12 L (14-36) U/L Total Protein 5.8 L (6.3-8.2) g/dL Albumin 3.1 L (3.5-5.0) g/dL 12/01/16 Range/Units 11:34 BUN (7-17) mg/dL POC Glucose (mg/dL) 174 H (75-99) mg/dL AST (14-36) U/L Total Protein (6.3-8.2) g/dL Albumin (3.5-5.0) g/dL Microbiology - Last 24 Hours (Table) 11/27/16 10:34 Anaerobic Culture - Final Thigh - Left 11/26/16 17:25 Blood Culture - Preliminary Blood No Growth after 96 hours 11/27/16 10:34 Gram Stain - Final Thigh - Left Wound Culture - Final Beta Hemolytic Strep Group G Staphylococcus aureus Assessment and Plan Plan: Impression Present on admission sepsis meet SIRS criteria left thigh abscess with cellulitis with positive cultures growing beta hemolytic strep group G Status post November 27 incision and drainage of the left thigh abscess Chronic back pain on chronic methadone Morbid obesity BMI 53 Pulmonary sarcoidosis on chronic prednisone Chronic immunosuppressive with chronic prednisone therapy History of a fall November 09 resulting in a infection of a hematoma left thigh and left knee laceration secondary to trauma failed outpatient treatment on antibiotics Plan Pain control DVT and GI prophylaxis Continue recommendations by infectious disease Resume home meds as appropriate Anticipate discharge in the next 48 hours with the plan the patient will follow- up with the wound care center with Dr. iglesia Parekh will address with the patient in an outpatient setting whether a wound VAC is indicated will not place a wound VAC during this admission The above dictated assessment and findings were discussed with dr parekh Impression and the plan of care have been dictated as directed. Arlene Kendrick nurse practitioner acting as a scribe for dr parekh
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
[2016-12-01] MEDS: CHOLECALCIFEROL 1,000 UNIT TAB PO SCH (12:24)
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
--- NOTE | 2016-12-01 15:11 | PN ---
DATE OF SERVICE: 12/01/2016 Reason for followup is left thigh infected hematoma with MSSA and group B strep. INTERVAL HISTORY: The patient is afebrile. She is complaining of pain in her left thigh area as her pain medication has been cut back on. Patient denies significant chest pain, shortness of breath, no cough or abdominal pain, or any diarrhea. On examination, blood pressure 158/86 with a pulse of 60, temperature 98, she is 99% on 3 L. General description is a middle-age female, up in the chair in no distress. RESPIRATORY SYSTEM: Unlabored breathing. Clear to auscultation anteriorly. HEART: S1, S2, regular rate and rhythm. ABDOMEN: Soft, no tenderness. Examination of the left thigh wound looks clean. Overall surrounding swelling and redness have improved. No drainage. The knee wound looks clean as well. LABS: BUN of 21 with creatinine 0.80. Wound culture with beta-hemolytic group C strep and staph MSSA. DIAGNOSTIC IMPRESSION AND PLAN: Patient with left thigh infected hematoma, status post drainage. Overall, the wound looks clean, surrounding swelling and inflammation have significant improved. Will be able to transition her to oral Keflex 500 mg q.6 hours for another 10 days along with Aquacel Silver packing the wound and followup in the outpatient setting. Continue supportive care.
[2016-12-01 15:15] VITALS: BP 159/88; PULSE 63; TEMP 98.5
[2016-12-01] MEDS: LACTATED RINGERS 1,000 ML IV SCH (15:16)
== END 2016-12-01 17:21 | disposition home health service (06) | DRG 854 ==
LOC: EC 15:07 → 5MS5E 18:37
PROVIDERS: ADMIT Surgery; ATTEND Surgery
PROC: 0JBM0ZZ Excision of Left Upper Leg Subcutaneous Tissue and Fascia, Open Approach (ICD-10-PCS; principal; 2016-11-27 10:00)
DX: A40.1 Sepsis due to streptococcus, group B (principal); Z68.43 Body mass index [BMI] 50.0-59.9, adult; Z99.81 Dependence on supplemental oxygen; L02.416 Cutaneous abscess of left lower limb; L03.116 Cellulitis of left lower limb; E66.01 Morbid (severe) obesity due to excess calories; D86.0 Sarcoidosis of lung; E16.2 Hypoglycemia, unspecified; G89.4 Chronic pain syndrome; I05.0 Rheumatic mitral stenosis; S81.019A Laceration without foreign body, unspecified knee, initial encounter; T38.0X5A Adverse effect of glucocorticoids and synthetic analogues, initial encounter; Z79.52 Long term (current) use of systemic steroids; Z79.891 Long term (current) use of opiate analgesic; Z87.01 Personal history of pneumonia (recurrent); Z87.440 Personal history of urinary (tract) infections; Z87.891 Personal history of nicotine dependence; B95.1 Streptococcus, group B, as the cause of diseases classified elsewhere
CPT/HCPCS: 36415; 71010; 71020; 78315; 80048; 80053; 80177; 82728; 83036; 83540; 83550; 83735; 84484; 85025; 85610; 86317; 87040; 87070; 87075; 87077; 87186; 87205; 88304; 93005; 94760; 96361; 96365; 96375; 99285

== ENCOUNTER → 2016-12-07 | Outpatient (CLI) | payer OTHER ==
--- NOTE | 2016-12-07 16:31 | US ---
EXAMINATION TYPE: US venous doppler duplex LE DATE OF EXAM: 12/07/2016 3:23 PM COMPARISON: Previous study dated 09/24/2016. CLINICAL HISTORY: Pain in bilateral legs M79.604. SIDE PERFORMED: Bilateral TECHNIQUE: The lower extremity deep venous system is examined utilizing real time linear array sonog see with graded compression, doppler sonography and color-flow sonography. VESSELS IMAGED: External Iliac Vein (EIV) Common Femoral Vein Deep Femoral Vein Greater Saphenous Vein * Femoral Vein Popliteal Vein Proximal Calf Veins (* superficial vessels) Limited study, patient is morbidly obese and unable to tolerate compression imaging. Additional color imaging used to show color flow. Right Leg: Negative for DVT Left Leg: Negative for DVT No popliteal fossa lesion is seen. IMPRESSION: LIMITED EXAMINATION DEMONSTRATING NO EVIDENCE OF DVT IN EITHER LEG.
== END | disposition home or self-care (01) ==
LOC: RADUSWWP 13:20
PROVIDERS: ATTEND Surgery
DX: R22.41 Localized swelling, mass and lump, right lower limb (principal); R22.42 Localized swelling, mass and lump, left lower limb; M79.604 Pain in right leg; M79.605 Pain in left leg
CPT/HCPCS: 93970

== ENCOUNTER 2016-12-08 14:42 | Inpatient (IN) | payer OTHER ==
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
[2016-12-08] MEDS ORDERED: NALOXONE 0.4 MG/ML 1 ML VIAL IV PRN (16:08)
[2016-12-08] MEDS ORDERED: AMPICILLIN-SULBACTAM 3 GM in SODIUM CHLORIDE 0.9% 100 ML IVPB STA (16:09)
[2016-12-08] MEDS ORDERED: IV VANCOMYCIN PER PHARMACY 1 EACH MISC MISCELLANE PRN (16:09)
[2016-12-08] MEDS ORDERED: VANCOMYCIN 2,250 MG in SODIUM CHLORIDE 0.9% 500 ML IVPB STA (16:17)
[2016-12-08 16:27] LABS: CH 28.3; CHCM 32.9; HCT 35.2 % (34.0-46.0); HDW 2.35; MCH 29.4 pg (25.0-35.0); MCV 86.4 fL (80.0-100.0); Mean Platelet Volume 6.5; RBC 4.07 m/uL (3.80-5.40); RDW 14.6 % (11.5-15.5); WBC (Perox) 28.44
[2016-12-08 16:29] LABS: WBC 26.6 k/uL (3.8-10.6)
[2016-12-08 16:33] LABS: INR 1.2 (<1.1); Partial Thromboplastin Time 23.9 sec (22.0-30.0); Prothrombin Time 11.8 sec (9.0-12.0)
[2016-12-08] MEDS ORDERED: MORPHINE SULFATE 4 MG/ML SYRINGE IVP STA (16:35)
[2016-12-08 16:36] LABS: ALT 26 U/L (9-52); AST 15 U/L (14-36); Alkaline Phosphatase 62 U/L (38-126); Anion Gap 8 mmol/L; Blood Urea Nitrogen 22 mg/dL (7-17); Calcium 9.2 mg/dL (8.4-10.2); Carbon Dioxide 29 mmol/L (22-30); Chloride 101 mmol/L (98-107); Glucose 152 mg/dL (74-99); Non-African American GFR(MDRD) >60 (>60 ml/min/1.73 sqM); Potassium 4.3 mmol/L (3.5-5.1); Sodium 138 mmol/L (137-145); Total Bilirubin 0.6 mg/dL (0.2-1.3); Total Protein 6.4 g/dL (6.3-8.2)
[2016-12-08 16:38] LABS: Add Differential Manual Differential
[2016-12-08 16:46] LABS: Band Neutrophils % 2.5 %; Manual Review Performed; Nucleated Red Blood Cells 0 /100 WBC (0-0); RBC Morphology Normal; Total Cells Counted 200; Toxic Vacuolation Present
[2016-12-08 16:47] LABS: Appearance,Urine Cloudy (Clear); Bilirubin,Urine Negative (Negative); Glucose,Urine (UA) 4+ (Negative); Ketones,Urine 1+ (Negative); Leukocyte Esterase,Urine Negative (Negative); Mucus,Urine Rare /hpf; Nitrite,Urine Negative (Negative); Particle Count 1156; Protein,Urine Trace (Negative); RBC,Urine 3 /hpf (0-5); Specific Gravity,Urine 1.018 (1.001-1.035); Squamous Epithelial Cell,Urine 1 /hpf (0-4); UA Billing (MACRO vs. MICRO) MICRO; Urobilinogen,Urine <2.0 mg/dL (<2.0); WBC,Urine 2 /hpf (0-5)
[2016-12-08] MEDS: SODIUM CHLORIDE 0.9% 500 ML IV SCH ×2 (17:01→21:37)
--- NOTE | 2016-12-08 20:50 | XR ---
EXAMINATION TYPE: XR tibia fibula RT DATE OF EXAM: 12/08/2016 COMPARISON: NONE HISTORY: Pain TECHNIQUE: 4 views FINDINGS: There is a plate with screws fixing the proximal tibia. I see no acute fracture nor disloca tion. There is soft tissue swelling around the lower leg. Ankle mortise is anatomic. IMPRESSION: Previous surgery. No fracture. Soft tissue swelling.
[2016-12-08] MEDS ORDERED: METHADONE 10 MG TAB PO STA (20:54)
[2016-12-08] MEDS: GABAPENTIN 100 MG CAP PO SCH (21:03)
[2016-12-08] MEDS: SODIUM CHLORIDE 0.9% 1,000 ML IV SCH (21:38)
[2016-12-08] MEDS: IBUPROFEN 800 MG TAB PO SCH (21:38)
[2016-12-09] MEDS ORDERED: NON-FORMULARY DRUG (Ketorolac 10 MG) PO SCH
[2016-12-09] MEDS: AMPICILLIN-SULBACTAM 3 GM in SODIUM CHLORIDE 0.9% 100 ML IVPB SCH ×3 (00:20→13:07)
[2016-12-09] MEDS: VANCOMYCIN 2,250 MG in SODIUM CHLORIDE 0.9% 500 ML IVPB SCH ×2 (06:02→20:25)
[2016-12-09] MEDS: SODIUM CHLORIDE 0.9% 1,000 ML IV SCH ×2 (06:55→12:06)
[2016-12-09] MEDS: IBUPROFEN 800 MG TAB PO SCH ×3 (10:22→21:49)
[2016-12-09] MEDS: predniSONE 20 MG TAB PO SCH (10:23)
[2016-12-09] MEDS: ENOXAPARIN 40 MG/0.4 ML SYRINGE SQ SCH (10:24)
[2016-12-09] MEDS: GABAPENTIN 300 MG CAP PO SCH ×2 (10:24→20:26)
[2016-12-09] MEDS: FAMOTIDINE 20 MG TAB PO SCH (10:24)
[2016-12-09] MEDS: METHADONE 10 MG TAB PO SCH (10:29)
[2016-12-09] MEDS: METHADONE 5 MG TAB PO SCH (10:30)
[2016-12-09] MEDS: HYDROcodone/APAP 10-325MG 1 EACH TAB PO PRN ×2 (10:34→17:05)
[2016-12-09] MEDS: GABAPENTIN 100 MG CAP PO SCH (10:36)
[2016-12-09] MEDS: B COMPLEX-VIT C-VIT E-ZINC 1 EACH TAB PO SCH (13:08)
[2016-12-09] MEDS: CHOLECALCIFEROL 1,000 UNIT TAB PO SCH (13:08)
--- NOTE | 2016-12-09 13:21 | CT ---
EXAMINATION TYPE: CT lower extremity RT wo con DATE OF EXAM: 12/09/2016 COMPARISON: NONE HISTORY: Patient complains of new onset redness, swelling, and pain in the right lower leg extending from the calf down to the ankle. CT DLP: 1149.2 mGycm Automated exposure control for dose reduction was used. FINDINGS: Superficial soft tissue swelling and stranding is present. This extends from the mid anterior foreleg region to the ankle. Milder stranding is more superior to the mid portion of the foreleg towards the knee. Soft tissue thickening and edema is more extensive at the level of the ankle. Muscular capsule appears intact. No underlying abscess is identified. No cortical erosion is evident. There is a prior open reduction internal fixation of the proximal tibia. No popliteal cyst is eviden t. Images are reviewed with the physician at the time of preliminary interpretation. IMPRESSION: 1. EXTENSIVE SUPERFICIAL SOFT TISSUE THICKENING AND STRANDING COMPATIBLE WITH EXTENSIVE CELLULITIS. U NDERLYING ABSCESS IS NOT IDENTIFIED AT THIS TIME.
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
[2016-12-09] MEDS: PIPERACILLIN-TAZOBACTAM 3.375 GM in DEXTROSE/WATER 1 50ML.BAG IVPB SCH ×2 (16:11→23:45)
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
[2016-12-10] MEDS: HYDROcodone/APAP 10-325MG 1 EACH TAB PO PRN ×3 (00:03→11:53)
[2016-12-10] MEDS: VANCOMYCIN 2,250 MG in SODIUM CHLORIDE 0.9% 500 ML IVPB SCH (05:40)
[2016-12-10] MEDS: SODIUM CHLORIDE 0.9% 1,000 ML IV SCH ×2 (05:52→08:36)
[2016-12-10 07:45] VITALS: BP 134/93; PULSE 65; RESP 18; TEMP 98.3
[2016-12-10 08:42] LABS: Basophils % (A) 0 %; CH 28.3; CHCM 31.7; Eosinophils # (A) 0.1 k/uL (0-0.7); Eosinophils % (A) 0 %; HCT 32.2 % (34.0-46.0); HDW 2.27; HGB 10.1 gm/dL (11.4-16.0); Luc # (Auto) 0.27; Luc % (Auto) 2; Lymphocytes # (A) 1.9 k/uL (1.0-4.8); Lymphocytes % (A) 10 %; MCH 28.1 pg (25.0-35.0); MCHC 31.4 g/dL (31.0-37.0); MCV 89.4 fL (80.0-100.0); Mean Platelet Volume 6.9; Monocytes # (A) 0.8 k/uL (0-1.0); Monocytes % (A) 5 %; Neutrophils # (A) 15.5 k/uL (1.3-7.7); Neutrophils % (A) 83 %; RDW 14.5 % (11.5-15.5); WBC 18.5 k/uL (3.8-10.6); WBC (Perox) 18.69
[2016-12-10] MEDS: IBUPROFEN 800 MG TAB PO SCH (08:49)
[2016-12-10] MEDS: METHADONE 5 MG TAB PO SCH (08:50)
[2016-12-10] MEDS: METHADONE 10 MG TAB PO SCH (08:51)
[2016-12-10] MEDS: FAMOTIDINE 20 MG TAB PO SCH (08:52)
[2016-12-10] MEDS: GABAPENTIN 300 MG CAP PO SCH (08:52)
[2016-12-10] MEDS: PIPERACILLIN-TAZOBACTAM 3.375 GM in DEXTROSE/WATER 1 50ML.BAG IVPB SCH (08:52)
[2016-12-10] MEDS: predniSONE 20 MG TAB PO SCH (08:52)
[2016-12-10] MEDS: ENOXAPARIN 40 MG/0.4 ML SYRINGE SQ SCH (08:52)
[2016-12-10 09:01] LABS: ALT 23 U/L (9-52); AST 11 U/L (14-36); Alkaline Phosphatase 65 U/L (38-126); Anion Gap 7 mmol/L; Blood Urea Nitrogen 20 mg/dL (7-17); Calcium 8.4 mg/dL (8.4-10.2); Carbon Dioxide 30 mmol/L (22-30); Chloride 103 mmol/L (98-107); Glucose 103 mg/dL (74-99); Non-African American GFR(MDRD) >60 (>60 ml/min/1.73 sqM); Potassium 3.8 mmol/L (3.5-5.1); Sodium 140 mmol/L (137-145); Total Bilirubin 0.5 mg/dL (0.2-1.3); Total Protein 5.7 g/dL (6.3-8.2)
[2016-12-10 09:41] LABS: Erythrocyte Sedimentation Rate 91 mm/hr (0-20)
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
[2016-12-10] MEDS ORDERED: HYDROmorphone 1 MG/ML 1 ML SYRINGE IVP STA (11:09)
--- NOTE | 2016-12-10 12:20 | P.TRANS ---
Providers Date of admission: 12/08/16 16:08 Attending physician: Akshat Ballard Consults: 12/08/16 16:08 Consult Physician Routine Consulting Provider: Santana Colon Consult Reason/Comments: cellulitis Do you want consulting provider notified?: Yes 12/08/16 16:09 Consult Physician Routine Consulting Provider: Kari Hameed Consult Reason/Comments: cellulitis Do you want consulting provider notified?: Already Contacted 12/09/16 09:51 Consult Physician Routine Consulting Provider: Elda Palencia Consult Reason/Comments: Sarcoidosis Do you want consulting provider notified?: Yes 12/09/16 10:02 Consult Physician Routine Consulting Provider: Louie Hernandez Consult Reason/Comments: Wound Care Do you want consulting provider notified?: Yes Primary care physician: [facility] Course: 46-year-old Afro-[place] female [address] Dean patient who has been seen Dr. Hernandez and had debridement of the left leg for abscess and necrotic tissue in the left groin along with severe Celexa the left side was hospitalized from till 12/01/2016 and has been at the wound clinic seen on regular basis. Patient is known to have sarcoidosis has been seen at the sarcoidosis a clinic at [facility] for the last 17 years also has been on methadone a clinic at [facility] seen on regular basis has been on methadone for chronic pain management. Patient apparently presented to the emergency department with worsening pain and discomfort in the right leg with increased redness and discomfort with significant swelling. 24 hours earlier with the current symptoms at the 1 to clinic had Doppler came back negative for DVT and patient has been on Keflex orally per infectious disease recommendation which did not prevent the right side from become with worsening cellulitis. Patient ended up coming to the emergency department seen and evaluated for the significant cellulitis become much worse in 24 hours. Patient was supposed to have the wound clinic; wound VAC on the left groin debrided site which has not been done currently. 12/10: The patient was consulted by Dr. Colon from infectious disease. He did change her Unasyn to Zosyn to cover for gram-negative, will continue vancomycin. Preliminary wound culture of left thigh shows Pseudomonas, preliminary urine culture shows gram-negative bacilli, blood cultures show no growth after [address] of the lower extremity did show extensive superficial soft tissue thickening and stranding compatible with extensive cellulitis. No abscess was identified. Today the patient is requesting to be transferred to [facility] where she receives treatment for her pulmonary sarcoidosis. Transfer will be arranged. discharge diagnoses 1 severe cellulitis of the right leg with failure to outpatient treatment 2 severe cellulitis of the left leg with debrided site on the left groin area. 3 severe advanced sarcoidosis 4 chronic pain syndrome 5 severe leukocytosis and sepsis 6 chronic back pain 7 chronic neuropathy 8 DVT prophylaxis 9 GI prophylaxis The above impression and plan of care have been discussed and directed by signing physician. Christa Reagan nurse practitioner acting as scribe for signing physician. Patient Condition at Discharge: Stable Plan - Transfer Summary Transfer Medications: Active Medications Generic Name Dose Route Start Last Admin Trade Name Freq PRN Reason Stop Dose Admin Hydrocodone Bitart/Acetaminophen 1 each 12/09/16 09:47 12/10/16 11:53 [place] 10 PO 1 each Q6H PRN Administration Pain Cholecalciferol 5,000 unit 12/09/16 12:00 12/09/16 13:08 Vitamin D3 PO 5,000 unit 1200 LESLIE Administration Enoxaparin Sodium 40 mg 12/09/16 10:00 12/10/16 08:52 Lovenox SQ 40 mg DAILY LESLIE Administration Famotidine 20 mg 12/09/16 10:00 12/10/16 08:52 Pepcid PO 20 mg DAILY LESLIE Administration Gabapentin 300 mg 12/09/16 10:00 12/10/16 08:52 Neurontin PO 300 mg BID LESLIE Administration Sodium Chloride 1,000 mls @ 110 mls/hr 12/08/16 16:15 12/10/16 08:36 Saline 0.9% IV Not Given .[id number] LESLIE Vancomycin HCl 2,250 mg/ 500 mls @ 167 mls/hr 12/09/16 06:00 12/10/16 05:40 Sodium Chloride IVPB 167 mls/hr Q12H LESLIE Administration Piperacillin/Tazobactam/ 50 mls @ 12.5 mls/hr 12/09/16 16:00 12/10/16 08:52 Dextrose 3.375 gm/ IV Solution IVPB 12.5 mls/hr Q8HR LESLIE Administration Ibuprofen 800 mg 12/08/16 22:00 12/10/16 08:49 Motrin PO 12/18/16 16:01 800 mg TID LESLIE Administration Methadone HCl 100 mg 12/09/16 09:00 12/10/16 08:51 Dolophine PO 100 mg DAILY LESLIE Administration Methadone HCl 5 mg 12/09/16 09:00 12/10/16 08:50 Dolophine PO 5 mg DAILY LESLIE Administration Miscellaneous Information 0 each 12/11/16 05:00 Vancomycin Trough Due MISCELLANE 12/11/16 05:01 DIRECTED ONE Naloxone HCl 0.2 mg 12/08/16 16:08 Narcan IV Q2M PRN Opioid Reversal Prednisone 80 mg 12/09/16 09:00 12/10/16 08:52 PO 80 mg DAILY LESLIE Administration Vitamin B Complex/Vit C/Vit E/Zinc 2 each 12/09/16 12:00 12/09/16 13:08 Z-Bec PO 2 each 1200 LESLIE Administration Follow up Appointment(s)/Referral(s): Naveen Dean MD [Primary Care Provider] - 1-2 days Activity/Diet/Wound Care/Special Instructions: pt has home care but does not remember the name of it.
--- NOTE | 2016-12-10 12:27 | P.PN ---
Subjective 46-year-old female being seen on rounds this morning did note the attending dr garcia is recommending that the patient be transferred to [facility] as there is no significant improvement in the right extremity cellulitis. The right leg continues to be edematous 2+ nonpitting from the groin to the toes. Significant redness. Patient has a history of pulmonary sarcoidosis and does see a pulmonology specialist at [facility] in [place]. Patient's been on chronic prednisone therapy.. Patient's left thigh from previous incision and drainage packing is in place and dressing is dry. Patient is aware of the plan of care and does agree to be transferred to [facility] in [place] for further medical management for a higher level of care involving the extensive cellulitis in the right extremity Objective - Vital Signs Vital signs: Vital Signs Temp 98.3 F 12/10/16 07:00 Pulse 65 12/10/16 07:00 Resp 18 12/10/16 07:00 BP 134/93 12/10/16 07:00 Pulse Ox 97 12/10/16 08:33 Intake & Output 12/09/16 12/10/16 12/10/16 18:59 06:59 18:59 Intake Total 1040 100 Balance 1040 100 Weight 158.757 kg 158.757 kg Intake: Oral 1040 100 Other: Voiding Method Toilet Toilet Toilet Incontinent Incontinent # Voids 2 2 2 - Exam GENERAL APPEARANCE: 46 year old patient is alert, oriented, in no acute distress. VITAL SIGNS: Reviewed HEENT: Head is normocephalic and atraumatic. Pupils are equal and reactive. The nares are patent. Oropharynx is clear without lesions. NECK: Supple without lymphadenopathy. Traches midline. HEART: S1, S2. Regular rate and rhythm. LUNGS: No crackles or wheezes are heard. ABDOMEN: Soft, nontender, nondistended with good bowel sounds. No peritoneal signs. No palpable organomegaly or masses. EXTREMITIES: Dressing to the right lower extremity dry right lower extremity pitting edema from the upper thigh to the tips of the toes the right leg swollen red patient states it's painful there is no blister formation. The left upper thigh from a prior incision and drainage packing in place dressing is dry NEUROLOGICAL: No focal deficits. Strength and sensation are grossly intact. - Labs CBC & Chem 7: 12/10/16 07:35 12/10/16 07:35 Labs: Abnormal Lab Results - Last 24 Hours (Table) 12/10/16 12/10/16 Range/Units 07:35 07:35 WBC 18.5 H (3.8-10.6) k/uL RBC 3.60 L (3.80-5.40) m/uL Hgb 10.1 L (11.4-16.0) gm/dL Hct 32.2 L (34.0-46.0) % Neutrophils # 15.5 H (1.3-7.7) k/uL ESR 91 H (0-20) mm/hr BUN 20 H (7-17) mg/dL Glucose 103 H (74-99) mg/dL AST 11 L (14-36) U/L Total Protein 5.7 L (6.3-8.2) g/dL Albumin 2.9 L (3.5-5.0) g/dL Microbiology - Last 24 Hours (Table) 12/09/16 15:10 Gram Stain - Preliminary Thigh - Left Wound Culture - Preliminary Pseudomonas spec 12/08/16 16:32 Urine Culture - Preliminary Urine,Voided Gram Neg Bacilli 12/08/16 16:05 Blood Culture - Preliminary Blood No Growth after 24 hours Assessment and Plan Plan: Impression Present on admission significant extensive cellulitis involving the right extremity 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 on chronic prednisone therapy Chronic back pain on chronic methadone followed by [facility] Morbid obesity BMI 51 Of recent treatment for left thigh abscess with cellulitis positive cultures growing beta hemolytic strep group G 12/01/2016 History of a fall November 09 resulting in an infection of a hematoma left thigh left knee laceration Dopplers to the bilateral lower extremities no evidence of a DVT History of chronic hypoxic respiratory failure on supplemental home O2 2 L Echocardiogram EF 50-55% with no pulmonary hypertension on echo done on 2016 Present on admission leukocytosis Plan transferred to a tertiary center higher level of care for management of the extensive cellulitis involving the right leg in a patient who has 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 Arlene Kendrick nurse practitioner acting as a scribe for dr parekh
[2016-12-10] MEDS: B COMPLEX-VIT C-VIT E-ZINC 1 EACH TAB PO SCH (13:12)
[2016-12-10] MEDS: CHOLECALCIFEROL 1,000 UNIT TAB PO SCH (13:12)
--- NOTE | 2016-12-10 16:34 | PN ---
DATE OF SERVICE: 12/10/2016 REASON FOR FOLLOW UP: 1. Right lower extremity cellulitis 2. Left thigh wound. INTERVAL HISTORY: The patient is afebrile. She has been complaining of pain in the right leg area and also pain in the left thigh which is extending to the groin area. Denies significant chest pain, shortness of breath, cough. No abdominal pain and no diarrhea. On examination, blood pressure 134/93 with a pulse of 55, temperature 98.3. She is 100% on 3 liters nasal cannula. General description is a middle-age female up in the bed in no distress. RESPIRATORY SYSTEM: Unlabored breathing. Clear to auscultation anteriorly. HEART: S1, S2 regular rate and rhythm. ABDOMEN: Soft. No tenderness. The thigh and leg wounds are currently dressed up. No obvious drainage on the dressing. LABS: Hemoglobin 10, white count of 18.5 with a BUN of 20, creatinine 0.71. Cultures are showing a pseudomonas species. DIAGNOSTIC IMPRESSION AND PLAN: Patient admitted to the hospital with right lower extremity cellulitis with superficial wound. Culture now showing Pseudomonas species. The patient already on Rocephin that started yesterday and white count has shown downward trend. However, the primary team has decided to send the patient to tertiary care. Patient to continue his antibiotic until the patient is evaluated by the ID service at that facility.
[2016-12-11] MEDS ORDERED: VANCOMYCIN TROUGH DUE 1 EACH MISC MISCELLANE ONE (05:00)
== END 2016-12-10 14:59 | disposition short-term general hospital (02) | DRG 872 ==
LOC: EC 14:42 → 5MS5E 16:08
PROVIDERS: ADMIT Internal Medicine Geriatric Medicine; ATTEND Internal Medicine Geriatric Medicine
DX: A41.9 Sepsis, unspecified organism (principal); Z68.43 Body mass index [BMI] 50.0-59.9, adult; L03.115 Cellulitis of right lower limb; L03.116 Cellulitis of left lower limb; E66.01 Morbid (severe) obesity due to excess calories; G62.9 Polyneuropathy, unspecified; S81.801A Unspecified open wound, right lower leg, initial encounter; L52 Erythema nodosum; D86.0 Sarcoidosis of lung; G89.4 Chronic pain syndrome; M54.9 Dorsalgia, unspecified; M06.4 Inflammatory polyarthropathy; M19.91 Primary osteoarthritis, unspecified site; Z99.81 Dependence on supplemental oxygen; J96.11 Chronic respiratory failure with hypoxia; Z87.891 Personal history of nicotine dependence; Z87.440 Personal history of urinary (tract) infections; Z79.52 Long term (current) use of systemic steroids; Z79.1 Long term (current) use of non-steroidal anti-inflammatories (NSAID); Z79.899 Other long term (current) drug therapy; Z79.891 Long term (current) use of opiate analgesic
CPT/HCPCS: 36415; 80053; 81001; 82164; 83605; 85025; 85610; 85652; 85730; 87040; 87070; 87077; 87086; 87186; 87205; 93005; 96365; 96375; 99284

== ENCOUNTER → 2017-02-24 | Outpatient (CLI) | payer OTHER ==
--- NOTE | 2017-02-24 14:57 | XR ---
EXAMINATION TYPE: XR tibia fibula RT DATE OF EXAM: 02/24/2017 COMPARISON: NONE HISTORY: Pain TECHNIQUE: Two views are submitted. FINDINGS: The osseous structures are intact. The joint spaces are preserved. Postsurgical change noted with d iffuse soft tissue edema. No destructive changes. Arthropathy of the knee joint. IMPRESSION: 1. Diffuse soft tissue edema. Cellulitis in the differential diagnosis.
--- NOTE | 2017-02-24 14:57 | XR ---
EXAMINATION TYPE: XR Hip Complete RT DATE OF EXAM: 02/24/2017 COMPARISON: NONE HISTORY: Pain TECHNIQUE: 2 views submitted FINDINGS: There is no evidence of erosive change or acute fracture. Moderate concentric narrowing the joint space. No erosive changes. IMPRESSION: 1. No evidence of acute fracture or dislocation.
--- NOTE | 2017-02-24 14:58 | XR ---
EXAMINATION TYPE: XR knee complete LT DATE OF EXAM: 02/24/2017 COMPARISON: NONE HISTORY: Pain TECHNIQUE: Three views are submitted. FINDINGS: Narrowing of the joint space is noted. No erosive changes. Mild diffuse osteopenia. There is soft tis alysa edema. Osseous structures are intact. No acute fracture seen. IMPRESSION: 1. No acute fracture or dislocation. Diffuse soft tissue edema and findings suggestive of osteoarthri tis.
--- NOTE | 2017-02-24 14:59 | XR ---
EXAMINATION TYPE: XR knee complete RT DATE OF EXAM: 02/24/2017 COMPARISON: NONE HISTORY: Pain TECHNIQUE: 3 views are submitted. FINDINGS: Moderate narrowing the joint space is seen. Previous surgery involving the tibia. Bony density along the medial margin the joint space appears chronic. Osseous structures are intact. No acute fracture seen. IMPRESSION: 1. No acute fracture or dislocation. 2. Osteoarthritis.
--- NOTE | 2017-02-24 15:01 | US ---
EXAMINATION TYPE: US venous doppler duplex LE DATE OF EXAM: 02/24/2017 1:35 PM COMPARISON: US CLINICAL HISTORY: Bilateral lower extremity swelling/R26.2 Difficulty Walking. Bilateral leg swelling SIDE PERFORMED: Bilateral TECHNIQUE: The lower extremity deep venous system is examined utilizing real time linear array sonog see with graded compression, doppler sonography and color-flow sonography. VESSELS IMAGED: External Iliac Vein (EIV) Common Femoral Vein Deep Femoral Vein Greater Saphenous Vein * Femoral Vein Popliteal Vein Small Saphenous Vein * Proximal Calf Veins (* superficial vessels) Morbidly obese pt in wheelchair with extensive edema Right Leg: Appeared negative for DVT, compressions at distal femoral vein and pop veins not obtained /visualized due to extensive edema and large pt body habitus/ Color flow visualized/ Fluid collection right pop fossa Left Leg: Appeared negative for DVT, compression at distal femoral vein not obtained due to edema/ F luid collection left pop fossa IMPRESSION: No definite evidence for DVT at this time. Portions of the study are limited.
== END | disposition home or self-care (01) ==
LOC: RADUSWWP 12:51
PROVIDERS: ATTEND Physical Medicine & Rehabilitation
DX: R22.41 Localized swelling, mass and lump, right lower limb (principal); R22.42 Localized swelling, mass and lump, left lower limb; M79.89 Other specified soft tissue disorders; M17.11 Unilateral primary osteoarthritis, right knee; M25.551 Pain in right hip; M25.562 Pain in left knee
CPT/HCPCS: 73502; 93970

== ENCOUNTER → 2017-03-15 | Outpatient (CLI) | payer OTHER ==
--- NOTE | 2017-03-15 09:58 | XR ---
EXAMINATION TYPE: XR knee complete LT DATE OF EXAM: 03/15/2017 COMPARISON: NONE HISTORY: Pain TECHNIQUE: Four views are submitted. FINDINGS: There is narrowing of the joint spaces with no erosive change. Osseous structures are intact. No acu te fracture seen. IMPRESSION: 1. No acute fracture or dislocation. 2. Arthropathy.
== END ==
LOC: RADXRMAIN 09:24
PROVIDERS: ATTEND Physical Medicine & Rehabilitation
DX: M17.12 Unilateral primary osteoarthritis, left knee (principal)

== ENCOUNTER 2017-08-11 17:25 | Inpatient (IN) | payer OTHER ==
[2017-08-11] MEDS ORDERED: KETOROLAC 30 MG/ML 1 ML VIAL IVP STA (18:19)
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
[2017-08-11 19:36] LABS: ALT 22 U/L (9-52); AST 25 U/L (14-36); Albumin 4.1 g/dL (3.5-5.0); Alkaline Phosphatase 50 U/L (38-126); Anion Gap 15 mmol/L; Blood Urea Nitrogen 15 mg/dL (7-17); Calcium 9.4 mg/dL (8.4-10.2); Carbon Dioxide 25 mmol/L (22-30); Chloride 98 mmol/L (98-107); Glucose 220 mg/dL (74-99); Potassium 4.3 mmol/L (3.5-5.1); Sodium 138 mmol/L (137-145); Total Bilirubin 0.4 mg/dL (0.2-1.3); Total Protein 6.9 g/dL (6.3-8.2)
[2017-08-11 19:40] LABS: Basophils % (A) 0 %; Eosinophils # (A) 0.1 k/uL (0-0.7); Eosinophils % (A) 1 %; HCT 40.4 % (34.0-46.0); HGB 12.9 gm/dL (11.4-16.0); Lymphocytes # (A) 0.9 k/uL (1.0-4.8); Lymphocytes % (A) 8 %; MCH 28.2 pg (25.0-35.0); MCHC 31.9 g/dL (31.0-37.0); MCV 88.3 fL (80.0-100.0); Mean Platelet Volume 6.6; Monocytes # (A) 0.2 k/uL (0-1.0); Monocytes % (A) 2 %; Neutrophils # (A) 10.3 k/uL (1.3-7.7); Neutrophils % (A) 89 %; Platelet Count 310 k/uL (150-450); RBC 4.57 m/uL (3.80-5.40); RDW 14.5 % (11.5-15.5); WBC 11.5 k/uL (3.8-10.6)
--- NOTE | 2017-08-11 21:00 | US ---
EXAMINATION TYPE: US venous doppler duplex LE RT DATE OF EXAM: 08/11/2017 8:19 PM COMPARISON: NONE CLINICAL HISTORY: R/O DVT; Please scan left medial calf to r/o abscess. Right leg edema possible infe ction calf area. SIDE PERFORMED: Right TECHNIQUE: The lower extremity deep venous system is examined utilizing real time linear array sonog see with graded compression, doppler sonography and color-flow sonography. VESSELS IMAGED: External Iliac Vein (EIV) Common Femoral Vein Deep Femoral Vein Greater Saphenous Vein * Femoral Vein Popliteal Vein Small Saphenous Vein * Proximal Calf Veins (* superficial vessels) FINDINGS: Grayscale, color doppler, spectral doppler imaging performed of the deep veins of the lower extremities. There is normal flow, compressibility, vascular waveforms. IMPRESSION: 1. NEGATIVE FOR RIGHT LOWER EXTREMITY DEEP VENOUS THROMBOSIS. 2. IMAGING OVER THE AREA OF INTEREST OF THE RIGHT CALF SHOWS NONSPECIFIC EDEMATOUS RETICULAR CHANGE, BUT NEGATIVE FOR ABNORMAL FOCAL FLUID OR GAS COLLECTION TO SUGGEST ABSCESS.
--- NOTE | 2017-08-11 21:02 | XR ---
PROCEDURE: XR tibia fibula RT, 4 views DATE AND TIME: 08/11/2017 8:03 PM REFERRING PHYSICIAN: Mandi Burt CLINICAL INDICATION: PHH, Pain, right wounds. TECHNIQUE: Department protocol. COMPARISON: None FINDINGS: Imaging was obtained from the knee to the ankle. Orthopedic hardware is intact and without periprosthesis lucencies. There is no fracture or malalignm ent. No focal skeletal findings. The soft tissues are prominent. There is no soft tissue emphysema. IMPRESSION: NO ACUTE RADIOGRAPHIC PROCESS.
[2017-08-11] MEDS ORDERED: HYDROcodone/APAP 5-325MG 1 EACH TAB PO STA (21:45)
[2017-08-11] MEDS ORDERED: VANCOMYCIN IV PER PHARMACY 1 EACH MISC MISCELLANE PRN (21:45)
[2017-08-11] MEDS ORDERED: cefTRIAXone IN SWFI 2,000 MG/20 ML SYRINGE IVP STA (21:45)
[2017-08-11] MEDS ORDERED: VANCOMYCIN 2,000 MG in SODIUM CHLORIDE 0.9% 500 ML IVPB STA (21:51)
[2017-08-11] MEDS ORDERED: NALOXONE 0.4 MG/ML 1 ML VIAL IV PRN (23:13)
[2017-08-12 01:08] VITALS: BMI 65.8
[2017-08-12] MEDS: VANCOMYCIN 2,250 MG in SODIUM CHLORIDE 0.9% 500 ML IVPB SCH ×2 (05:36→17:07)
[2017-08-12] MEDS: HYDROcodone/APAP 5-325MG 1 EACH TAB PO PRN (05:36)
[2017-08-12] MEDS: METHADONE 10 MG TAB PO SCH (07:46)
[2017-08-12] MEDS: predniSONE 20 MG TAB PO SCH (07:48)
[2017-08-12] MEDS: ALBUTEROL NEBULIZED 2.5 MG/3 ML INHALATION SCH ×4 (08:14→19:43)
[2017-08-12 08:39] LABS: Basophils % (A) 0 %; Eosinophils % (A) 0 %; HGB 11.7 gm/dL (11.4-16.0); Lymphocytes # (A) 2.9 k/uL (1.0-4.8); Lymphocytes % (A) 22 %; MCH 27.4 pg (25.0-35.0); MCHC 30.7 g/dL (31.0-37.0); MCV 89.3 fL (80.0-100.0); Mean Platelet Volume 6.7; Monocytes # (A) 0.6 k/uL (0-1.0); Monocytes % (A) 5 %; Neutrophils # (A) 9.7 k/uL (1.3-7.7); Neutrophils % (A) 72 %; Platelet Count 300 k/uL (150-450); RBC 4.25 m/uL (3.80-5.40); RDW 14.4 % (11.5-15.5); WBC 13.4 k/uL (3.8-10.6)
[2017-08-12] MEDS ORDERED: ALBUTEROL INHALER 60 PUFF/8 GM INHALER INHALATION SCH (09:00)
[2017-08-12] MEDS ORDERED: HYDROmorphone 0.5 MG/0.5 ML SYRINGE IVP PRN (10:17)
[2017-08-12] MEDS: PIPERACILLIN-TAZOBACTAM 3.375 GM in DEXTROSE/WATER 1 50ML.BAG IVPB SCH ×2 (10:29→20:29)
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
[2017-08-12] MEDS: INSULIN ASPART 100 UNIT/ML 1 ML 10 ML VIAL SQ SCH ×3 (14:05→21:14)
[2017-08-12] MEDS: FUROSEMIDE 10 MG/ML 4 ML VIAL IV SCH ×2 (14:18→20:29)
[2017-08-12] MEDS: POTASSIUM CHLORIDE ER 20 MEQ TAB.ER PO SCH ×2 (14:19→20:28)
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
[2017-08-12 16:48] LABS: Hemoglobin A1C 6.9 % (4.0-6.0)
[2017-08-12] MEDS: HYDROmorphone 4 MG TABLET PO PRN (16:53)
[2017-08-12] MEDS: HEPARIN SODIUM,PORCINE 5,000 UNIT/ML 1 ML VIAL SQ SCH ×2 (17:11→23:07)
[2017-08-12 18:04] LABS: Glucose,Whole Blood 152 mg/dL (75-99)
[2017-08-12 19:43] LABS: Anion Gap 9 mmol/L; Blood Urea Nitrogen 22 mg/dL (7-17); Calcium 9.4 mg/dL (8.4-10.2); Carbon Dioxide 39 mmol/L (22-30); Chloride 92 mmol/L (98-107); Glucose 164 mg/dL (74-99); Magnesium 1.9 mg/dL (1.6-2.3); Potassium 3.9 mmol/L (3.5-5.1); Sodium 140 mmol/L (137-145)
[2017-08-12 21:26] LABS: Glucose,Whole Blood 228 mg/dL (75-99)
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
[2017-08-13] MEDS: HYDROmorphone 4 MG TABLET PO PRN ×3 (00:52→18:02)
[2017-08-13] MEDS: PIPERACILLIN-TAZOBACTAM 3.375 GM in DEXTROSE/WATER 1 50ML.BAG IVPB SCH ×4 (04:46→23:14)
[2017-08-13] MEDS: VANCOMYCIN 2,250 MG in SODIUM CHLORIDE 0.9% 500 ML IVPB SCH ×2 (05:45→18:02)
[2017-08-13 07:35] LABS: Glucose,Whole Blood 105 mg/dL (75-99)
[2017-08-13] MEDS: INSULIN ASPART 100 UNIT/ML 1 ML 10 ML VIAL SQ SCH ×4 (08:15→21:42)
[2017-08-13 08:25] LABS: Anion Gap 8 mmol/L; Blood Urea Nitrogen 24 mg/dL (7-17); Calcium 9.1 mg/dL (8.4-10.2); Carbon Dioxide 39 mmol/L (22-30); Chloride 93 mmol/L (98-107); Glucose 98 mg/dL (74-99); Potassium 3.5 mmol/L (3.5-5.1); Sodium 140 mmol/L (137-145)
[2017-08-13] MEDS: ALBUTEROL NEBULIZED 2.5 MG/3 ML INHALATION SCH ×4 (09:18→21:06)
[2017-08-13] MEDS: FUROSEMIDE 10 MG/ML 4 ML VIAL IV SCH ×2 (09:49→21:42)
[2017-08-13] MEDS: METHADONE 10 MG TAB PO SCH (09:49)
[2017-08-13] MEDS: HEPARIN SODIUM,PORCINE 5,000 UNIT/ML 1 ML VIAL SQ SCH ×3 (09:50→23:14)
[2017-08-13] MEDS: FAMOTIDINE 20 MG TAB PO SCH (09:50)
[2017-08-13] MEDS: POTASSIUM CHLORIDE ER 20 MEQ TAB.ER PO SCH ×2 (09:50→21:42)
[2017-08-13] MEDS: predniSONE 20 MG TAB PO SCH (09:50)
[2017-08-13] MEDS: COLLAGENASE 250 UNIT/GM OINTMENT 30 GM TUBE TOPICAL SCH (09:51)
[2017-08-13] MEDS: KETOROLAC 30 MG/ML 1 ML VIAL IVP PRN ×2 (12:01→23:18)
[2017-08-13 12:27] LABS: Glucose,Whole Blood 217 mg/dL (75-99)
[2017-08-13 17:17] LABS: Glucose,Whole Blood 207 mg/dL (75-99)
--- NOTE | 2017-08-13 18:03 | P.PN ---
Subjective This is a 47-year-old -Ecuadorean female patient of Dr. Dean with past medical history of the left thigh wound that was treated at the wound healing Center under the care of Dr. Hernandez through 02/08/2017, chronic lymphedema, osteoarthritis, spinal stenosis, pulmonary sarcoidosis followed by Dr. KASIE Anderson currently on prednisone 80 mg daily. Patient has been treated for lymphedema in the outpatient setting with daily wraps which was effective but then changed to sequential compression that did not help her edema. Patient states that she had a fall 4 weeks ago as she has had foot drop in the right and lost her balance in her right leg hit her wheelchair causing a wound. She has been using a wound wash and colloidal silver dressing and wrapping daily. She has not been on any antibiotics. She has not sought treatment for this until she came into emergency center on August 11 as she has had increased pain, edema and redness to the right lower extremity. Ultrasound was negative for DVT. There was nonspecific edematous reticular change in the right calf but negative for abnormal focal fluid or gas collection to suggest abscess. Tib-fib x-ray was negative for acute process.. She denies having any fever, chills, nausea, vomiting, shortness of breath. She does have sarcoidosis followed by Dr. KASIE Anderson and is home O2 dependent at 3 L nasal cannula. Her breathing is at her baseline. Patient received ceftriaxone and vancomycin and was admitted to the [facility] floor and consult requested with Dr. Rivera. 08/13: Patient's doing okay, no significant pain on the right leg were doing this , Dr. Rivera has seen the patient for consultation, patient does not have any nausea vomiting or diarrhea, no fevers, cultures has been sent and is pending, patient relates that the insurance company failed to provide her adequate coverage eyes the wrapping that has been so effective for her treatment has been discontinued by the insurance company as the wound has healed prior to this admission. It has recurred again after she started having some worsening lymphedema and leg swelling. Objective - Vital Signs Vital signs: Vital Signs Temp 97.7 F 08/13/17 15:00 Pulse 80 08/13/17 16:59 Resp 20 08/13/17 15:00 BP 131/83 08/13/17 15:00 Pulse Ox 97 08/13/17 15:00 Intake & Output 08/12/17 08/13/17 08/13/17 18:59 06:59 18:59 Intake Total 900 720 Output Total 3700 1999 Balance -2800 -1280 Weight 182 kg Intake: Oral 900 720 Output: Urine 3700 1999 Other: Voiding Method Indwelling Catheter Indwelling Catheter # Voids 2 # Bowel Movements 1 0 - Constitutional General appearance: Present: cooperative, morbidly obese, no acute distress - EENT Eyes: Present: anicteric sclerae, EOMI, PERRLA, dentition normal, scleral icterus ENT: Present: NA/AT, normal oropharynx - Neck Neck: Present: normal ROM. Absent: lymphadenopathy, other, rigidity, stridor, thyromegaly - Respiratory Respiratory: bilateral: CTA, negative: diminished, dullness, rales, rhonchi - Cardiovascular Rhythm: regular Heart sounds: normal: S1, S2 Abnormal Heart Sounds: Absent: systolic murmur, diastolic murmur, rub, S3 Gallop , S4 Gallop, click, other - Peripheral edema leg Peripheral Edema: bilateral: 2+ - Gastrointestinal General gastrointestinal: Present: normal bowel sounds, soft - Integumentary Integumentary: Present: decreased turgor, normal - Neurologic Neurologic: Present: CNII-XII intact - Musculoskeletal Musculoskeletal: Present: strength equal bilaterally - Psychiatric Psychiatric: Present: A&O x's 3, appropriate affect - Labs CBC & Chem 7: 08/12/17 07:11 08/13/17 07:31 Labs: Abnormal Lab Results - Last 24 Hours (Table) 08/12/17 08/12/17 08/12/17 Range/Units 07:11 17:35 19:11 Chloride 92 L (98-107) mmol/L Carbon Dioxide 39 H (22-30) mmol/L BUN 22 H (7-17) mg/dL Glucose 164 H (74-99) mg/dL POC Glucose (mg/dL) 152 H (75-99) mg/dL Hemoglobin A1c 6.9 H (4.0-6.0) % 08/12/17 08/13/17 08/13/17 Range/Units 21:10 07:16 07:31 Chloride 93 L (98-107) mmol/L Carbon Dioxide 39 H (22-30) mmol/L BUN 24 H (7-17) mg/dL Glucose (74-99) mg/dL POC Glucose (mg/dL) 228 H 105 H (75-99) mg/dL Hemoglobin A1c (4.0-6.0) % 08/13/17 08/13/17 Range/Units 12:08 17:06 Chloride (98-107) mmol/L Carbon Dioxide (22-30) mmol/L BUN (7-17) mg/dL Glucose (74-99) mg/dL POC Glucose (mg/dL) 217 H 207 H (75-99) mg/dL Hemoglobin A1c (4.0-6.0) % Microbiology - Last 24 Hours (Table) 08/12/17 14:15 Gram Stain - Preliminary Leg - Right Wound Culture - Preliminary Presumptive Staph aureus 08/11/17 19:16 Blood Culture - Preliminary Blood No Growth after 24 hours Laboratory Results - last 24 hr 08/12/17 08/12/17 08/12/17 07:11 17:35 19:11 Sodium 140 Potassium 3.9 Chloride 92 L Carbon Dioxide 39 H Anion Gap 9 BUN 22 H Creatinine 0.90 Est GFR (MDRD) Af Amer >60 Est GFR (MDRD) Non-Af >60 Glucose 164 H POC Glucose (mg/dL) 152 H POC Glu Chief Safety Officer ID Hannah Del Valle [address] Glu mg/dL 151 Hemoglobin A1c 6.9 H Calcium 9.4 Magnesium 1.9 08/12/17 08/13/17 08/13/17 21:10 07:16 07:31 Sodium 140 Potassium 3.5 Chloride 93 L Carbon Dioxide 39 H Anion Gap 8 BUN 24 H Creatinine 0.91 Est GFR (MDRD) Af Amer >60 Est GFR (MDRD) Non-Af >60 Glucose 98 POC Glucose (mg/dL) 228 H 105 H POC Glu Chief Safety Officer ID Jazmin Burroughs [address] Glu mg/dL Hemoglobin A1c Calcium 9.1 Magnesium 08/13/17 08/13/17 12:08 17:06 Sodium Potassium Chloride Carbon Dioxide Anion Gap BUN Creatinine Est GFR (MDRD) Af Amer Est GFR (MDRD) Non-Af Glucose POC Glucose (mg/dL) 217 H 207 H POC Glu Chief Safety Officer ID Becky Meadows [address] Glu mg/dL Hemoglobin A1c Calcium Magnesium Microbiology 08/12/17 14:15 Gram Stain - Preliminary Leg - Right Wound Culture - Preliminary Presumptive Staph aureus 08/11/17 19:16 Blood Culture - Preliminary Blood No Growth after 24 hours Assessment and Plan Assessment: 1. Recurrent wound to the right lower extremity mid calf with pre-existing lymphedema present prior to admission. Patient is currently on vancomycin and Zosyn. Consult with Dr. Rivera in place. Dilaudid and Toradol for pain. Diuretics with Lasix 40 mg every 12 hours with potassium supplementation. Cultures are currently pending 2. Sarcoidosis. Under the care of Dr KASIE Anderson. Patient is currently on prednisone 80 mg daily and albuterol nebulizer 4 times daily. 3. Chronic hypoxic respiratory failure on home O2 at 3 L nasal cannula. 4. Chronic pain syndrome. Continue methadone 105 mg daily. 5. GI prophylaxis. Pepcid. 6. DVT prophylaxis. Heparin subcu. 7. Morbid obesity with BMI of 57. Patient will be admitted to the hospital for a minimum of 2 night stay. Discharge plan: Return home
[2017-08-13] MEDS ORDERED: HEPARIN SODIUM,PORCINE 5,000 UNIT/ML 1 ML VIAL SQ SCH (18:15)
[2017-08-13] MEDS: LACTOBACILLUS ACIDOPH & BULGAR 1 EACH PACKET PO SCH (18:51)
[2017-08-13 21:19] LABS: Glucose,Whole Blood 137 mg/dL (75-99)
[2017-08-14] MEDS: PIPERACILLIN-TAZOBACTAM 3.375 GM in DEXTROSE/WATER 1 50ML.BAG IVPB SCH ×4 (04:40→23:10)
[2017-08-14] MEDS ORDERED: VANCOMYCIN TROUGH DUE 1 EACH MISC MISCELLANE ONE (05:00)
[2017-08-14 05:02] LABS: Basophils % (A) 0 %; Eosinophils # (A) 0.2 k/uL (0-0.7); Eosinophils % (A) 1 %; HGB 12.5 gm/dL (11.4-16.0); Lymphocytes # (A) 2.4 k/uL (1.0-4.8); Lymphocytes % (A) 17 %; MCH 28.2 pg (25.0-35.0); MCHC 32.1 g/dL (31.0-37.0); MCV 87.7 fL (80.0-100.0); Mean Platelet Volume 6.5; Monocytes # (A) 0.6 k/uL (0-1.0); Monocytes % (A) 4 %; Neutrophils # (A) 10.7 k/uL (1.3-7.7); Neutrophils % (A) 76 %; Platelet Count 313 k/uL (150-450); RBC 4.45 m/uL (3.80-5.40); RDW 14.3 % (11.5-15.5)
[2017-08-14 05:28] LABS: Anion Gap 8 mmol/L; Blood Urea Nitrogen 29 mg/dL (7-17); Calcium 9.5 mg/dL (8.4-10.2); Carbon Dioxide 38 mmol/L (22-30); Chloride 93 mmol/L (98-107); Glucose 114 mg/dL (74-99); Sodium 139 mmol/L (137-145)
[2017-08-14] MEDS: VANCOMYCIN 2,250 MG in SODIUM CHLORIDE 0.9% 500 ML IVPB SCH ×2 (06:04→09:20)
[2017-08-14] MEDS: HYDROmorphone 4 MG TABLET PO PRN ×3 (06:13→18:08)
[2017-08-14 07:22] LABS: Glucose,Whole Blood 203 mg/dL (75-99)
[2017-08-14] MEDS: LACTOBACILLUS ACIDOPH & BULGAR 1 EACH PACKET PO SCH (08:27)
[2017-08-14] MEDS: HEPARIN SODIUM,PORCINE 5,000 UNIT/ML 1 ML VIAL SQ SCH ×3 (08:27→23:10)
[2017-08-14] MEDS: INSULIN ASPART 100 UNIT/ML 1 ML 10 ML VIAL SQ SCH ×4 (08:27→21:50)
[2017-08-14] MEDS: FUROSEMIDE 10 MG/ML 4 ML VIAL IV SCH ×2 (08:27→21:50)
[2017-08-14] MEDS: FAMOTIDINE 20 MG TAB PO SCH (08:28)
[2017-08-14] MEDS: POTASSIUM CHLORIDE ER 20 MEQ TAB.ER PO SCH ×2 (08:28→21:44)
[2017-08-14] MEDS: PANTOPRAZOLE 40 MG TABLET PO SCH (08:28)
[2017-08-14] MEDS: COLLAGENASE 250 UNIT/GM OINTMENT 30 GM TUBE TOPICAL SCH (08:28)
[2017-08-14] MEDS: predniSONE 20 MG TAB PO SCH (08:28)
--- NOTE | 2017-08-14 08:30 | P.PN ---
Subjective Progress Note Date: 08/13/17 Principal diagnosis: Fever his is a 47-year-old -Eritrean female with past medical history of the left thigh wound that was treated at the wound healing Center under the care of Dr. Hernandez through 02/08/2017. Patient has been treated for lymphedema in the outpatient setting with daily wraps which was effective but then changed to sequential compression that did not help her edema. Patient states that she had a fall 4 weeks ago as she has had foot drop in the right and lost her balance in her right leg hit her wheelchair causing a wound. She has been using a wound wash and colloidal silver dressing and wrapping daily. She has not been on any antibiotics. She has not sought treatment for this until she came into [facility] emergency center on August 11 as she has had increased pain, edema and redness to the right lower extremity. Ultrasound was negative for DVT. There was nonspecific edematous reticular change in the right calf but negative for abnormal focal fluid or gas collection to suggest abscess. Tib-fib x-ray was negative for acute process.. She denies having any fever, chills, nausea, vomiting, shortness of breath. She does have sarcoidosis followed by Dr. KASIE Anderson and is home O2 dependent at 3 L nasal cannula. Her breathing is at her baseline. Patient received ceftriaxone and vancomycin and was admitted to the [facility] floor. 08/13/2017 patient is feeling somewhat better. Pain discomfort and fever have all improved. She is less short of breath. Denies new complaints. Objective - Vital Signs Vital signs: Vital Signs Temp 97.8 F 08/14/17 07:00 Pulse 77 08/14/17 07:00 Resp 20 08/14/17 07:00 BP 157/77 08/14/17 07:00 Pulse Ox 98 08/14/17 07:00 Intake & Output 08/13/17 08/14/17 08/14/17 18:59 06:59 18:59 Intake Total 720 700 Output Total 1999 4300 Balance -1280 -3600 Weight 182 kg Intake: Oral 720 700 Output: Urine 1999 4300 Uretheral (Lopez) 2300 Other: Voiding Method Indwelling Catheter Indwelling Catheter # Bowel Movements 1 - Exam Gen: This is a morbidly obese 47-year-old -Eritrean female. She is sitting up in bed eating her breakfast and appears to be in no acute distress. No respiratory distress is noted. She does have oxygen in place. HEENT: Head is atraumatic, normocephalic. Pupils equal, round. Sclerae is anicteric. Conjunctiva pink. Mucous members of the mouth are moist. No thrush noted. NECK: Supple. No JVD. No lymphadenopathy. No thyromegaly. LUNGS: Diminished. No wheezes or rhonchi. No intercostal retractions. HEART: Distant heart sounds. Regular rate and rhythm. No murmur. ABDOMEN: Soft. Bowel sounds are present. No masses. No tenderness. EXTREMITIES: Bilateral 2+ pedal edema. Patient has a wound to the right lateral lower extremity above the ankle with thin serosanguineous drainage. The tenderness of the area has definitely improved and drainage has improved. NEUROLOGICAL: Patient is awake, alert and oriented x3. - Labs CBC & Chem 7: 08/14/17 04:51 08/14/17 04:51 Labs: Abnormal Lab Results - Last 24 Hours (Table) 08/13/17 08/13/17 08/13/17 Range/Units 07:31 12:08 17:06 WBC (3.8-10.6) k/uL Neutrophils # (1.3-7.7) k/uL Chloride 93 L (98-107) mmol/L Carbon Dioxide 39 H (22-30) mmol/L BUN 24 H (7-17) mg/dL Glucose (74-99) mg/dL POC Glucose (mg/dL) 217 H 207 H (75-99) mg/dL 08/13/17 08/14/17 08/14/17 Range/Units 21:15 04:51 04:51 WBC 14.0 H (3.8-10.6) k/uL Neutrophils # 10.7 H (1.3-7.7) k/uL Chloride 93 L (98-107) mmol/L Carbon Dioxide 38 H (22-30) mmol/L BUN 29 H (7-17) mg/dL Glucose 114 H (74-99) mg/dL POC Glucose (mg/dL) 137 H (75-99) mg/dL 08/14/17 Range/Units 07:13 WBC (3.8-10.6) k/uL Neutrophils # (1.3-7.7) k/uL Chloride (98-107) mmol/L Carbon Dioxide (22-30) mmol/L BUN (7-17) mg/dL Glucose (74-99) mg/dL POC Glucose (mg/dL) 203 H (75-99) mg/dL Microbiology - Last 24 Hours (Table) 08/11/17 19:16 Blood Culture - Preliminary Blood No Growth after 48 hours 08/12/17 14:15 Gram Stain - Preliminary Leg - Right Wound Culture - Preliminary Presumptive Staph aureus Laboratory Results WBC 14.0 k/uL (3.8-10.6) H 08/14/17 04:51 RBC 4.45 m/uL (3.80-5.40) 08/14/17 04:51 Hgb 12.5 gm/dL (11.4-16.0) 08/14/17 04:51 Hct 39.0 % (34.0-46.0) 08/14/17 04:51 MCV 87.7 fL (80.0-100.0) 08/14/17 04:51 MCH 28.2 pg (25.0-35.0) 08/14/17 04:51 MCHC 32.1 g/dL (31.0-37.0) 08/14/17 04:51 RDW 14.3 % (11.5-15.5) 08/14/17 04:51 Plt Count 313 k/uL (150-450) 08/14/17 04:51 Neutrophils % 76 % 08/14/17 04:51 Lymphocytes % 17 % 08/14/17 04:51 Monocytes % 4 % 08/14/17 04:51 Eosinophils % 1 % 08/14/17 04:51 Basophils % 0 % 08/14/17 04:51 Neutrophils # 10.7 k/uL (1.3-7.7) H 08/14/17 04:51 Lymphocytes # 2.4 k/uL (1.0-4.8) 08/14/17 04:51 Monocytes # 0.6 k/uL (0-1.0) 08/14/17 04:51 Eosinophils # 0.2 k/uL (0-0.7) 08/14/17 04:51 Basophils # 0.0 k/uL (0-0.2) 08/14/17 04:51 Sodium 139 mmol/L (137-145) 08/14/17 04:51 Potassium 4.0 mmol/L (3.5-5.1) 08/14/17 04:51 Chloride 93 mmol/L (98-107) L 08/14/17 04:51 Carbon Dioxide 38 mmol/L (22-30) H 08/14/17 04:51 Anion Gap 8 mmol/L 08/14/17 04:51 BUN 29 mg/dL (7-17) H 08/14/17 04:51 Creatinine 0.90 mg/dL (0.52-1.04) 08/14/17 04:51 Est GFR (MDRD) Af Amer >60 (>60 ml/min/1.73 sqM) 08/14/17 04:51 Est GFR (MDRD) Non-Af >60 (>60 ml/min/1.73 sqM) 08/14/17 04:51 Glucose 114 mg/dL (74-99) H 08/14/17 04:51 POC Glucose (mg/dL) 203 mg/dL (75-99) H 08/14/17 07:13 POC Glu Medical Charge Entry Specialist AKILA Becky Meadows 08/14/17 07:[address] Glu mg/dL 151 08/12/17 07:11 Hemoglobin A1c 6.9 % (4.0-6.0) H 08/12/17 07:11 Calcium 9.5 mg/dL (8.4-10.2) 08/14/17 04:51 Magnesium 1.9 mg/dL (1.6-2.3) 08/12/17 19:11 Total Bilirubin 0.4 mg/dL (0.2-1.3) 08/11/17 19:16 AST 25 U/L (14-36) 08/11/17 19:16 ALT 22 U/L (9-52) 08/11/17 19:16 Alkaline Phosphatase 50 U/L (38-126) 08/11/17 19:16 Total Protein 6.9 g/dL (6.3-8.2) 08/11/17 19:16 Albumin 4.1 g/dL (3.5-5.0) 08/11/17 19:16 Vancomycin Trough 22.7 ug/mL 08/14/17 04:51 Microbiology 08/11/17 19:16 Blood Blood Culture - Preliminary No Growth after 48 hours 08/12/17 14:15 Leg - Right Gram Stain - Preliminary 08/12/17 14:15 Leg - Right Wound Culture - Preliminary Presumptive Staph aureus Assessment and Plan (1) Wound of right lower extremity Narrative/Plan: 47-year-old woman who has a history of extensive trauma to her lower extremities is difficulty with chronic lymphedema who presented to hospital with extensive volume overload and ulceration and infection to the right lower extremity. With diuresis she has had excellent fluid output in her edema is improving. With antibiotic therapy the pain discomforts also starting to improve. Continue with local wound care with Santyl to improve the extensive slough to the ulceration. Also continues to have it wrapped. Elevate as much as possible. Cultures are in process which will further help antibiotic therapy choices but continue Zosyn and vancomycin for now given her history of extensive prior medical care. Patient understands the importance of appropriate protein intake to help her healing. Multivitamins been added. Current Visit: Yes Status: Acute Code(s): S81.801A - UNSPECIFIED OPEN WOUND , RIGHT LOWER LEG, INITIAL ENCOUNTER SNOMED Code(s): 814479097 (2) Cellulitis of right leg Current Visit: Yes Status: Acute Code(s): L03.115 - CELLULITIS OF RIGHT LOWER LIMB SNOMED Code(s): 821893141
[2017-08-14] MEDS: ALBUTEROL NEBULIZED 2.5 MG/3 ML INHALATION SCH ×4 (08:40→21:03)
[2017-08-14] MEDS: METHADONE 10 MG TAB PO SCH (09:17)
[2017-08-14 12:35] LABS: Glucose,Whole Blood 186 mg/dL (75-99)
[2017-08-14 17:05] LABS: Glucose,Whole Blood 227 mg/dL (75-99)
[2017-08-14 17:38] LABS: Appearance,Urine Cloudy (Clear); Bilirubin,Urine Negative (Negative); Blood,Urine Large (Negative); Color,Urine Yellow; Glucose,Urine (UA) 4+ (Negative); Ketones,Urine Trace (Negative); Leukocyte Esterase,Urine Small (Negative); Mucus,Urine Occasional /hpf; Nitrite,Urine Negative (Negative); PH, Urine 5.5 (5.0-8.0); Protein,Urine Trace (Negative); RBC,Urine >182 /hpf (0-5); Specific Gravity,Urine 1.018 (1.001-1.035); Squamous Epithelial Cell,Urine 1 /hpf (0-4); Urobilinogen,Urine <2.0 mg/dL (<2.0); WBC,Urine 51 /hpf (0-5)
--- NOTE | 2017-08-14 20:31 | P.PN ---
Subjective Progress Note Date: 08/14/17 This is a 47-year-old -Filipino female patient of Dr. Dean with past medical history of the left thigh wound that was treated at the wound healing Center under the care of Dr. Hernandez through 02/08/2017, chronic lymphedema, osteoarthritis, spinal stenosis, pulmonary sarcoidosis followed by Dr. KASIE Anderson currently on prednisone 80 mg daily. Patient has been treated for lymphedema in the outpatient setting with daily wraps which was effective but then changed to sequential compression that did not help her edema. Patient states that she had a fall 4 weeks ago as she has had foot drop in the right and lost her balance in her right leg hit her wheelchair causing a wound. She has been using a wound wash and colloidal silver dressing and wrapping daily. She has not been on any antibiotics. She has not sought treatment for this until she came into [facility] emergency center on August 11 as she has had increased pain, edema and redness to the right lower extremity. Ultrasound was negative for DVT. There was nonspecific edematous reticular change in the right calf but negative for abnormal focal fluid or gas collection to suggest abscess. Tib-fib x-ray was negative for acute process.. She denies having any fever, chills, nausea, vomiting, shortness of breath. She does have sarcoidosis followed by Dr. KASIE Anderson and is home O2 dependent at 3 L nasal cannula. Her breathing is at her baseline. Patient received ceftriaxone and vancomycin and was admitted to the [facility] floor and consult requested with Dr. Rivera. 08/13: Patient's doing okay, no significant pain on the right leg were doing this , Dr. Rivera has seen the patient for consultation, patient does not have any nausea vomiting or diarrhea, no fevers, cultures has been sent and is pending, patient relates that the insurance company failed to provide her adequate coverage eyes the wrapping that has been so effective for her treatment has been discontinued by the insurance company as the wound has healed prior to this admission. It has recurred again after she started having some worsening lymphedema and leg swelling. 08/14: Patient continues to improve, MSSA growing on culture, agent is on IV Lasix and still indwelling Lopez catheter, this would be changed to oral Lasix Tuesday, Tuesday, Tuesday, 40 mg, folic acid to be discontinued in the morning, anticipate discharge to home in the morning, Gurwinder wrap to the leg would be repositioned to include foot wrappings, patient complained of urethra pain, patient has slight hematuria on Lopez catheter, urine culture Objective - Vital Signs Vital signs: Vital Signs Temp 98.7 F 08/14/17 15:00 Pulse 70 08/14/17 17:52 Resp 20 08/14/17 15:14 BP 135/93 08/14/17 15:00 Pulse Ox 94 L 08/14/17 15:00 Intake & Output 08/14/17 08/14/17 08/15/17 06:59 18:59 06:59 Intake Total 700 Output Total 4300 1000 Balance -3600 -1000 Weight 182 kg Intake: Oral 700 Output: Urine 4300 1000 Uretheral (Lopez) 2300 Other: Voiding Method Indwelling Catheter Indwelling Catheter # Bowel Movements 1 - Constitutional General appearance: Present: morbidly obese - EENT Eyes: Present: anicteric sclerae, EOMI, PERRLA, dentition normal, normal appearance ENT: Present: NA/AT, normal oropharynx - Neck Neck: Present: normal ROM - Respiratory Respiratory: bilateral: CTA, negative: diminished, dullness, rales, rhonchi, wheezing, prolonged expiration - Cardiovascular Rhythm: regular Heart sounds: normal: S1, S2 Abnormal Heart Sounds: Absent: systolic murmur, diastolic murmur, rub, S3 Gallop , S4 Gallop, click, other - Gastrointestinal General gastrointestinal: Present: normal bowel sounds, soft - Integumentary Integumentary: Present: normal - Neurologic Neurologic: Present: CNII-XII intact - Musculoskeletal Musculoskeletal: Present: gait normal, strength equal bilaterally - Psychiatric Psychiatric: Present: A&O x's 3, appropriate affect, intact judgment & insight - Labs CBC & Chem 7: 08/14/17 04:51 08/14/17 04:51 Labs: Abnormal Lab Results - Last 24 Hours (Table) 08/13/17 08/14/17 08/14/17 Range/Units 21:15 04:51 04:51 WBC 14.0 H (3.8-10.6) k/uL Neutrophils # 10.7 H (1.3-7.7) k/uL Chloride 93 L (98-107) mmol/L Carbon Dioxide 38 H (22-30) mmol/L BUN 29 H (7-17) mg/dL Glucose 114 H (74-99) mg/dL POC Glucose (mg/dL) 137 H (75-99) mg/dL Urine Appearance (Clear) Urine Protein (Negative) Urine Glucose (UA) (Negative) Urine Ketones (Negative) Urine Blood (Negative) Ur Leukocyte Esterase (Negative) Urine RBC (0-5) /hpf Urine WBC (0-5) /hpf Urine Mucus (None) /hpf 08/14/17 08/14/17 08/14/17 Range/Units 07:13 12:29 17:04 WBC (3.8-10.6) k/uL Neutrophils # (1.3-7.7) k/uL Chloride (98-107) mmol/L Carbon Dioxide (22-30) mmol/L BUN (7-17) mg/dL Glucose (74-99) mg/dL POC Glucose (mg/dL) 203 H 186 H 227 H (75-99) mg/dL Urine Appearance (Clear) Urine Protein (Negative) Urine Glucose (UA) (Negative) Urine Ketones (Negative) Urine Blood (Negative) Ur Leukocyte Esterase (Negative) Urine RBC (0-5) /hpf Urine WBC (0-5) /hpf Urine Mucus (None) /hpf 08/14/17 Range/Units 17:25 WBC (3.8-10.6) k/uL Neutrophils # (1.3-7.7) k/uL Chloride (98-107) mmol/L Carbon Dioxide (22-30) mmol/L BUN (7-17) mg/dL Glucose (74-99) mg/dL POC Glucose (mg/dL) (75-99) mg/dL Urine Appearance Cloudy H (Clear) Urine Protein Trace H (Negative) Urine Glucose (UA) 4+ H (Negative) Urine Ketones Trace H (Negative) Urine Blood Large H (Negative) Ur Leukocyte Esterase Small H (Negative) Urine RBC >182 H (0-5) /hpf Urine WBC 51 H (0-5) /hpf Urine Mucus Occasional H (None) /hpf Microbiology - Last 24 Hours (Table) 08/12/17 14:15 Gram Stain - Final Leg - Right Wound Culture - Final Staphylococcus aureus 08/11/17 19:16 Blood Culture - Preliminary Blood No Growth after 48 hours Assessment and Plan Plan: 1. Recurrent wound to the right lower extremity mid calf with pre-existing lymphedema present prior to admission. Patient is currently on vancomycin and Zosyn. Consult with Dr. Rivera in place. Dilaudid and Toradol for pain. Diuretics with Lasix 40 mg every 12 hours with potassium supplementation she would switch to oral 40 mg Tuesday, Tuesday, Tuesday, patient declined daily diuretics as she is incontinent. Cultures shows MSSAanticipate oral antibiotics on discharge 2. Sarcoidosis. Under the care of Dr KASIE Anderson. Patient is currently on prednisone 80 mg daily and albuterol nebulizer 4 times daily. 3. Chronic hypoxic respiratory failure on home O2 at 3 L nasal cannula. 4. Chronic pain syndrome. Continue methadone 105 mg daily. 5. GI prophylaxis. Pepcid. 6. DVT prophylaxis. Heparin subcu. 7. Morbid obesity with BMI of 57. 8. Urinary incontinence. Patient has indwelling Lopez catheter for her comfort. As per her request, she was advised regardingthe use of Lopez catheter as it increases the risk for urinary tract infection, CAUTI, Lopez catheter to be discontinued the morningvision test urinary complaints today with burning, urine with culture sent Patient will be admitted to the hospital for a minimum of 2 night stay. Discharge plan: Return homemost likely in 24 hours
[2017-08-14 20:57] LABS: Glucose,Whole Blood 202 mg/dL (75-99)
[2017-08-14] MEDS: HYDROcodone/APAP 5-325MG 1 EACH TAB PO PRN (21:44)
[2017-08-15] MEDS: VANCOMYCIN 2,250 MG in SODIUM CHLORIDE 0.9% 500 ML IVPB SCH (01:45)
[2017-08-15] MEDS: HYDROmorphone 4 MG TABLET PO PRN ×3 (05:47→18:27)
[2017-08-15] MEDS: PIPERACILLIN-TAZOBACTAM 3.375 GM in DEXTROSE/WATER 1 50ML.BAG IVPB SCH (05:48)
[2017-08-15 07:13] LABS: Glucose,Whole Blood 133 mg/dL (75-99)
[2017-08-15] MEDS: METHADONE 10 MG TAB PO SCH (08:00)
[2017-08-15] MEDS: HEPARIN SODIUM,PORCINE 5,000 UNIT/ML 1 ML VIAL SQ SCH ×2 (08:02→15:49)
[2017-08-15] MEDS: FAMOTIDINE 20 MG TAB PO SCH (08:03)
[2017-08-15] MEDS: INSULIN ASPART 100 UNIT/ML 1 ML 10 ML VIAL SQ SCH ×4 (08:03→21:34)
[2017-08-15] MEDS: PANTOPRAZOLE 40 MG TABLET PO SCH (08:03)
[2017-08-15] MEDS: LACTOBACILLUS ACIDOPH & BULGAR 1 EACH PACKET PO SCH (08:03)
[2017-08-15] MEDS: POTASSIUM CHLORIDE ER 20 MEQ TAB.ER PO SCH ×2 (08:03→21:33)
[2017-08-15] MEDS: predniSONE 20 MG TAB PO SCH (08:04)
[2017-08-15] MEDS: COLLAGENASE 250 UNIT/GM OINTMENT 30 GM TUBE TOPICAL SCH (08:05)
[2017-08-15] MEDS: ALBUTEROL NEBULIZED 2.5 MG/3 ML INHALATION SCH ×4 (08:14→19:18)
[2017-08-15] MEDS ORDERED: FUROSEMIDE 20 MG TAB PO SCH (09:00)
[2017-08-15 09:12] LABS: Basophils % (A) 0 %; Eosinophils # (A) 0.1 k/uL (0-0.7); Eosinophils % (A) 0 %; HCT 40.1 % (34.0-46.0); HGB 12.6 gm/dL (11.4-16.0); Lymphocytes # (A) 2.9 k/uL (1.0-4.8); Lymphocytes % (A) 21 %; MCHC 31.5 g/dL (31.0-37.0); MCV 88.7 fL (80.0-100.0); Mean Platelet Volume 6.6; Monocytes # (A) 0.6 k/uL (0-1.0); Monocytes % (A) 4 %; Neutrophils # (A) 9.8 k/uL (1.3-7.7); Neutrophils % (A) 73 %; Platelet Count 300 k/uL (150-450); RBC 4.52 m/uL (3.80-5.40); RDW 14.4 % (11.5-15.5); WBC 13.5 k/uL (3.8-10.6)
[2017-08-15 09:24] LABS: Blood Urea Nitrogen 33 mg/dL (7-17); Calcium 9.8 mg/dL (8.4-10.2); Chloride 91 mmol/L (98-107); Glucose 115 mg/dL (74-99); Potassium 3.9 mmol/L (3.5-5.1); Sodium 141 mmol/L (137-145)
[2017-08-15 09:32] LABS: Anion Gap 8 mmol/L
[2017-08-15 09:44] LABS: Carbon Dioxide 42 mmol/L (22-30)
[2017-08-15 12:02] LABS: Glucose,Whole Blood 147 mg/dL (75-99)
[2017-08-15] MEDS ORDERED: PIPERACILLIN-TAZOBACTAM 3.375 GM in DEXTROSE/WATER 1 50ML.BAG IVPB SCH (13:00)
[2017-08-15] MEDS: LISINOPRIL 10 MG TAB PO SCH (15:49)
[2017-08-15] MEDS: CEPHALEXIN 500 MG CAP PO SCH ×2 (16:26→21:33)
[2017-08-15 17:19] LABS: Glucose,Whole Blood 223 mg/dL (75-99)
[2017-08-15 20:48] LABS: Glucose,Whole Blood 163 mg/dL (75-99)
[2017-08-15] MEDS: HYDROcodone/APAP 5-325MG 1 EACH TAB PO PRN (21:33)
[2017-08-16] MEDS: HEPARIN SODIUM,PORCINE 5,000 UNIT/ML 1 ML VIAL SQ SCH ×2 (00:10→08:27)
[2017-08-16] MEDS: HYDROmorphone 4 MG TABLET PO PRN (00:10)
[2017-08-16 00:11] VITALS: RESP 16
[2017-08-16] MEDS: HYDROcodone/APAP 5-325MG 1 EACH TAB PO PRN (05:47)
[2017-08-16 06:34] VITALS: BP 135/88; TEMP 98
[2017-08-16 07:16] LABS: Glucose,Whole Blood 151 mg/dL (75-99)
[2017-08-16] MEDS: ALBUTEROL NEBULIZED 2.5 MG/3 ML INHALATION SCH ×2 (08:02→12:46)
--- NOTE | 2017-08-16 08:17 | P.PN ---
Subjective Progress Note Date: 08/15/17 This is a 47-year-old -[place] female patient of Dr. Dean with past medical history of the left thigh wound that was treated at the wound healing Center under the care of Dr. Hernandez through 02/08/2017, chronic lymphedema, osteoarthritis, spinal stenosis, pulmonary sarcoidosis followed by Dr. KASIE Anderson currently on prednisone 80 mg daily. Patient has been treated for lymphedema in the outpatient setting with daily wraps which was effective but then changed to sequential compression that did not help her edema. Patient states that she had a fall 4 weeks ago as she has had foot drop in the right and lost her balance in her right leg hit her wheelchair causing a wound. She has been using a wound wash and colloidal silver dressing and wrapping daily. She has not been on any antibiotics. She has not sought treatment for this until she came into [facility] emergency center on August 11 as she has had increased pain, edema and redness to the right lower extremity. Ultrasound was negative for DVT. There was nonspecific edematous reticular change in the right calf but negative for abnormal focal fluid or gas collection to suggest abscess. Tib-fib x-ray was negative for acute process.. She denies having any fever, chills, nausea, vomiting, shortness of breath. She does have sarcoidosis followed by Dr. KASIE Anderson and is home O2 dependent at 3 L nasal cannula. Her breathing is at her baseline. Patient received ceftriaxone and vancomycin and was admitted to the [facility] floor and consult requested with Dr. Rivera. 08/13: Patient's doing okay, no significant pain on the right leg were doing this , Dr. Rivera has seen the patient for consultation, patient does not have any nausea vomiting or diarrhea, no fevers, cultures has been sent and is pending, patient relates that the insurance company failed to provide her adequate coverage eyes the wrapping that has been so effective for her treatment has been discontinued by the insurance company as the wound has healed prior to this admission. It has recurred again after she started having some worsening lymphedema and leg swelling. 08/14: Patient continues to improve, MSSA growing on culture, agent is on IV Lasix and still indwelling Lopez catheter, this would be changed to oral Lasix Tuesday, Tuesday, Tuesday, 40 mg, folic acid to be discontinued in the morning, anticipate discharge to home in the morning, Gurwinder wrap to the leg would be repositioned to include foot wrappings, patient complained of urethra pain, patient has slight hematuria on Lopez catheter, urine culture 08/15: Lopez catheter was removed this morning and patient is able to void. Patient was prepared for discharge home today but she developed high blood pressure for which she was started on lisinopril. Patient will be monitored overnight and discharged tomorrow morning. IV antibiotics switched over to oral. Objective - Vital Signs Vital signs: Vital Signs Temp 97.6 F 08/15/17 06:35 Pulse 69 08/15/17 11:38 Resp 18 08/15/17 08:00 BP 141/71 08/15/17 06:35 Pulse Ox 96 08/15/17 06:35 Intake & Output 08/14/17 08/15/17 08/15/17 18:59 06:59 18:59 Intake Total 880 240 Output Total 1000 2600 1400 Balance -1000 -1720 -1160 Intake: Oral 880 240 Output: Urine 1000 2600 1400 Uretheral (Lopez) 1400 Other: Voiding Method Indwelling Catheter Indwelling Catheter Indwelling Catheter # Bowel Movements 1 1 1 - Exam General appearance: Present: morbidly obese - EENT Eyes: Present: anicteric sclerae, EOMI, PERRLA, dentition normal, normal appearance ENT: Present: NA/AT, normal oropharynx - Neck Neck: Present: normal ROM - Respiratory Respiratory: bilateral: CTA, negative: diminished, dullness, rales, rhonchi, wheezing, prolonged expiration - Cardiovascular Rhythm: regular Heart sounds: normal: S1, S2 Abnormal Heart Sounds: Absent: systolic murmur, diastolic murmur, rub, S3 Gallop , S4 Gallop, click, other - Gastrointestinal General gastrointestinal: Present: normal bowel sounds, soft - Integumentary Integumentary: Present: normal - Neurologic Neurologic: Present: CNII-XII intact - Musculoskeletal Musculoskeletal: Present: gait normal, strength equal bilaterally - Psychiatric Psychiatric: Present: A&O x's 3, appropriate affect, intact judgment & insight - Labs CBC & Chem 7: 08/15/17 08:29 08/15/17 08:29 Labs: Abnormal Lab Results - Last 24 Hours (Table) 08/14/17 08/14/17 08/14/17 Range/Units 17:04 17:25 20:48 WBC (3.8-10.6) k/uL Neutrophils # (1.3-7.7) k/uL Chloride (98-107) mmol/L Carbon Dioxide (22-30) mmol/L BUN (7-17) mg/dL Glucose (74-99) mg/dL POC Glucose (mg/dL) 227 H 202 H (75-99) mg/dL Urine Appearance Cloudy H (Clear) Urine Protein Trace H (Negative) Urine Glucose (UA) 4+ H (Negative) Urine Ketones Trace H (Negative) Urine Blood Large H (Negative) Ur Leukocyte Esterase Small H (Negative) Urine RBC >182 H (0-5) /hpf Urine WBC 51 H (0-5) /hpf Urine Mucus Occasional H (None) /hpf 08/15/17 08/15/17 08/15/17 Range/Units 07:11 08:29 08:29 WBC 13.5 H (3.8-10.6) k/uL Neutrophils # 9.8 H (1.3-7.7) k/uL Chloride 91 L (98-107) mmol/L Carbon Dioxide 42 H* (22-30) mmol/L BUN 33 H (7-17) mg/dL Glucose 115 H (74-99) mg/dL POC Glucose (mg/dL) 133 H (75-99) mg/dL Urine Appearance (Clear) Urine Protein (Negative) Urine Glucose (UA) (Negative) Urine Ketones (Negative) Urine Blood (Negative) Ur Leukocyte Esterase (Negative) Urine RBC (0-5) /hpf Urine WBC (0-5) /hpf Urine Mucus (None) /hpf 08/15/17 Range/Units 11:59 WBC (3.8-10.6) k/uL Neutrophils # (1.3-7.7) k/uL Chloride (98-107) mmol/L Carbon Dioxide (22-30) mmol/L BUN (7-17) mg/dL Glucose (74-99) mg/dL POC Glucose (mg/dL) 147 H (75-99) mg/dL Urine Appearance (Clear) Urine Protein (Negative) Urine Glucose (UA) (Negative) Urine Ketones (Negative) Urine Blood (Negative) Ur Leukocyte Esterase (Negative) Urine RBC (0-5) /hpf Urine WBC (0-5) /hpf Urine Mucus (None) /hpf Microbiology - Last 24 Hours (Table) 08/14/17 17:25 Urine Culture - Preliminary Urine,Catheterized 08/11/17 19:16 Blood Culture - Preliminary Blood No Growth after 72 hours 08/12/17 14:15 Gram Stain - Final Leg - Right Wound Culture - Final Staphylococcus aureus Assessment and Plan Plan: 1. Nonhealing wound to the right lower extremity. Patient is currently on vancomycin and Zosyn and will be changed to oral Keflex.. Consult with Dr. Rivera in place. Dilaudid and Toradol for pain. Lasix 40 mg every 12 hours with potassium supplementation. 2. Sarcoidosis. Under the care of Dr KASIE Anderson. Patient is currently on prednisone 80 mg daily and albuterol nebulizer 4 times daily. 3. Chronic hypoxic respiratory failure on home O2 at 3 L nasal cannula. 4. Chronic pain syndrome. Continue methadone 105 mg daily. 5. GI prophylaxis. Pepcid. 6. DVT prophylaxis. Heparin subcu. 7. Morbid obesity with BMI of 57. 8. Urinary incontinence. Patient has indwelling Lopez catheter for her comfort. As per her request, she was advised regardingthe use of Lopez catheter as it increases the risk for urinary tract infection, CAUTI, Lopez catheter to be discontinued the morning. 9. Hypertension. Patient started on lisinopril. Discharge plan: Return home Impression and plan of care have been directed as dictated by the signing physician. Jeanne Roca nurse practitioner acting as scribe for signing physician.
[2017-08-16 08:19] VITALS: PULSE 72
--- NOTE | 2017-08-16 08:21 | P.DS ---
Providers Date of admission: 08/11/17 23:24 Expected date of discharge: 08/16/17 Attending physician: Macarena Ann Consults: 08/11/17 23:24 Consult Physician Routine Consulting Provider: Akshat Rivera Consult Reason/Comments: cellulitis Do you want consulting provider notified?: Yes Primary care physician: Naveen Dean [facility] Course: This is a 47-year-old -Mongol[place] female patient of Dr. Dean with past medical history of the left thigh wound that was treated at the wound healing Center under the care of Dr. Hernandez through 02/08/2017, chronic lymphedema, osteoarthritis, spinal stenosis, pulmonary sarcoidosis followed by Dr. KASIE Anderson currently on prednisone 80 mg daily. Patient has been treated for lymphedema in the outpatient setting with daily wraps which was effective but then changed to sequential compression that did not help her edema. Patient states that she had a fall 4 weeks ago as she has had foot drop in the right and lost her balance in her right leg hit her wheelchair causing a wound. She has been using a wound wash and colloidal silver dressing and wrapping daily. She has not been on any antibiotics. She has not sought treatment for this until she came into [facility] emergency center on August 11 as she has had increased pain, edema and redness to the right lower extremity. Ultrasound was negative for DVT. There was nonspecific edematous reticular change in the right calf but negative for abnormal focal fluid or gas collection to suggest abscess. Tib-fib x-ray was negative for acute process.. She denies having any fever, chills, nausea, vomiting, shortness of breath. She does have sarcoidosis followed by Dr. KASIE Anderson and is home O2 dependent at 3 L nasal cannula. Her breathing is at her baseline. Patient received ceftriaxone and vancomycin and was admitted to the [facility] floor and consult requested with Dr. Rivera. 08/13: Patient's doing okay, no significant pain on the right leg were doing this , Dr. Rivera has seen the patient for consultation, patient does not have any nausea vomiting or diarrhea, no fevers, cultures has been sent and is pending, patient relates that the insurance company failed to provide her adequate coverage eyes the wrapping that has been so effective for her treatment has been discontinued by the insurance company as the wound has healed prior to this admission. It has recurred again after she started having some worsening lymphedema and leg swelling. 08/14: Patient continues to improve, MSSA growing on culture, agent is on IV Lasix and still indwelling Lopez catheter, this would be changed to oral Lasix Tuesday, Tuesday, Tuesday, 40 mg, folic acid to be discontinued in the morning, anticipate discharge to home in the morning, Gurwinder wrap to the leg would be repositioned to include foot wrappings, patient complained of urethra pain, patient has slight hematuria on Lopez catheter, urine culture 08/15: Lopez catheter was removed this morning and patient is able to void. Patient was prepared for discharge home today but she developed high blood pressure for which she was started on lisinopril. Patient will be monitored overnight and discharged tomorrow morning. IV antibiotics switched over to oral. 08/16: No new complaints over night. Blood pressures improved. Patient will be discharged home today in stable condition. Discharge diagnoses: 1. Nonhealing wound to the right lower extremity. 2. Sarcoidosis. 3. Chronic hypoxic respiratory failure on home O2 at 3 L nasal cannula. 4. Chronic pain syndrome. 5. Morbid obesity with BMI of 57. 6. Urinary incontinence. 7. Hypertension. Patient started on lisinopril. Discharge plan: Return home Impression and plan of care have been directed as dictated by the signing physician. Jeanne Roca nurse practitioner acting as scribe for signing physician. Patient Condition at Discharge: Good Plan - Discharge Summary New Discharge Prescriptions: New Cephalexin [Keflex] 500 mg PO Q8HR #21 cap Furosemide [Lasix] 40 mg PO MOWEFR #24 tab Potassium Chloride ER [K-Dur 20] 20 meq PO MOWEFR #24 tab.er.prt Lisinopril [Prinivil] 10 mg PO DAILY #30 tab Continue predniSONE 80 mg PO DAILY Methadone HCl [Methadone Intensol] 105 mg PO DAILY Ibuprofen [Motrin Ib] 600 mg PO Q6H PRN PRN Reason: Pain Albuterol Nebulized [Ventolin Nebulized] 2.5 mg INHALATION RT-QID Albuterol Inhaler [Ventolin Hfa Inhaler] 2 puff INHALATION QID Discharge Medication List Methadone HCl [Methadone Intensol] 105 mg PO DAILY 09/23/16 [History] predniSONE 80 mg PO DAILY 09/23/16 [History] Albuterol Inhaler [Ventolin Hfa Inhaler] 2 puff INHALATION QID 08/11/17 [History ] Albuterol Nebulized [Ventolin Nebulized] 2.5 mg INHALATION RT-QID 08/11/17 [ History] Ibuprofen [Motrin Ib] 600 mg PO Q6H PRN 08/11/17 [History] Cephalexin [Keflex] 500 mg PO Q8HR #21 cap 08/15/17 [Rx] Furosemide [Lasix] 40 mg PO MOWEFR #24 tab 08/15/17 [Rx] Lisinopril [Prinivil] 10 mg PO DAILY #30 tab 08/15/17 [Rx] Potassium Chloride ER [K-Dur 20] 20 meq PO MOWEFR #24 tab.er.prt 08/15/17 [Rx] Follow up Appointment(s)/Referral(s): Naveen Dean MD [Primary Care Provider] - 08/22/17 9:30 am Patient Instructions/Handouts: Cellulitis (DC) Discharge Disposition: HOME SELF-CARE
[2017-08-16] MEDS: CEPHALEXIN 500 MG CAP PO SCH (08:27)
[2017-08-16] MEDS: PANTOPRAZOLE 40 MG TABLET PO SCH (08:27)
[2017-08-16] MEDS: LISINOPRIL 10 MG TAB PO SCH (08:27)
[2017-08-16] MEDS: METHADONE 10 MG TAB PO SCH (08:27)
[2017-08-16] MEDS: predniSONE 20 MG TAB PO SCH (08:28)
[2017-08-16] MEDS: POTASSIUM CHLORIDE ER 20 MEQ TAB.ER PO SCH (08:28)
[2017-08-16] MEDS: LACTOBACILLUS ACIDOPH & BULGAR 1 EACH PACKET PO SCH (08:30)
[2017-08-16] MEDS: COLLAGENASE 250 UNIT/GM OINTMENT 30 GM TUBE TOPICAL SCH (08:32)
[2017-08-16] MEDS: INSULIN ASPART 100 UNIT/ML 1 ML 10 ML VIAL SQ SCH ×2 (08:34→12:24)
[2017-08-16 08:37] LABS: Basophils # (A) 0.1 k/uL (0-0.2); Basophils % (A) 0 %; Eosinophils % (A) 0 %; HCT 39.5 % (34.0-46.0); HGB 12.3 gm/dL (11.4-16.0); Lymphocytes # (A) 3.3 k/uL (1.0-4.8); Lymphocytes % (A) 21 %; MCH 27.7 pg (25.0-35.0); MCHC 31.1 g/dL (31.0-37.0); MCV 88.9 fL (80.0-100.0); Mean Platelet Volume 6.5; Monocytes # (A) 0.7 k/uL (0-1.0); Monocytes % (A) 4 %; Neutrophils # (A) 11.6 k/uL (1.3-7.7); Neutrophils % (A) 73 %; Platelet Count 298 k/uL (150-450); RBC 4.44 m/uL (3.80-5.40); RDW 14.4 % (11.5-15.5); WBC 15.8 k/uL (3.8-10.6)
[2017-08-16 09:06] LABS: Anion Gap 9 mmol/L; Blood Urea Nitrogen 34 mg/dL (7-17); Calcium 9.9 mg/dL (8.4-10.2); Carbon Dioxide 37 mmol/L (22-30); Chloride 94 mmol/L (98-107); Glucose 103 mg/dL (74-99); Potassium 3.7 mmol/L (3.5-5.1); Sodium 140 mmol/L (137-145)
== END 2017-08-16 14:45 | disposition home health service (06) | DRG 605 ==
LOC: EC 17:25 → 4MS4W 23:24
PROVIDERS: ADMIT Internal Medicine; ATTEND Internal Medicine
DX: S81.801A Unspecified open wound, right lower leg, initial encounter (principal); J96.11 Chronic respiratory failure with hypoxia; E66.01 Morbid (severe) obesity due to excess calories; L03.115 Cellulitis of right lower limb; E87.70 Fluid overload, unspecified; Z99.81 Dependence on supplemental oxygen; Z68.43 Body mass index [BMI] 50.0-59.9, adult; G89.4 Chronic pain syndrome; I10 Essential (primary) hypertension; I89.0 Lymphedema, not elsewhere classified; R32 Unspecified urinary incontinence; B95.61 Methicillin susceptible Staphylococcus aureus infection as the cause of diseases classified elsewhere; T38.0X5A Adverse effect of glucocorticoids and synthetic analogues, initial encounter; D86.0 Sarcoidosis of lung; M06.4 Inflammatory polyarthropathy; M19.90 Unspecified osteoarthritis, unspecified site; M21.379 Foot drop, unspecified foot; M48.00 Spinal stenosis, site unspecified; M54.9 Dorsalgia, unspecified; Z91.81 History of falling; Z87.891 Personal history of nicotine dependence; Z79.52 Long term (current) use of systemic steroids; Z79.891 Long term (current) use of opiate analgesic
CPT/HCPCS: 36415; 80048; 80053; 80202; 81001; 83036; 83735; 85025; 87040; 87070; 87077; 87086; 87186; 87205; 94640; 94760; 96365; 96366; 96375; 99285

== ENCOUNTER 2017-08-22 11:54 | Emergency (ER) | payer OTHER ==
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
[2017-08-22 14:00] LABS: Basophils % (A) 0 %; Eosinophils # (A) 0.1 k/uL (0-0.7); Eosinophils % (A) 1 %; HCT 39.1 % (34.0-46.0); HGB 12.7 gm/dL (11.4-16.0); Lymphocytes # (A) 1.2 k/uL (1.0-4.8); Lymphocytes % (A) 8 %; MCHC 32.6 g/dL (31.0-37.0); Mean Platelet Volume 6.8; Monocytes # (A) 0.2 k/uL (0-1.0); Monocytes % (A) 2 %; Neutrophils # (A) 12.9 k/uL (1.3-7.7); Neutrophils % (A) 89 %; Platelet Count 283 k/uL (150-450); RBC 4.55 m/uL (3.80-5.40); RDW 14.5 % (11.5-15.5); WBC 14.6 k/uL (3.8-10.6)
[2017-08-22 15:00] VITALS: BP 156/78; PULSE 85; RESP 18; TEMP 97.9
== END 2017-08-22 15:03 | disposition home or self-care (01) ==
LOC: EC 11:54
DX: L03.115 Cellulitis of right lower limb (principal); D72.829 Elevated white blood cell count, unspecified; M19.90 Unspecified osteoarthritis, unspecified site; Z87.891 Personal history of nicotine dependence; Z79.51 Long term (current) use of inhaled steroids; Z79.52 Long term (current) use of systemic steroids; Z79.899 Other long term (current) drug therapy
CPT/HCPCS: 36415; 85025; 99283

== ENCOUNTER 2017-08-29 17:13 | Inpatient (IN) | payer OTHER ==
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
[2017-08-29 19:25] LABS: Basophils % (A) 0 %; Eosinophils # (A) 0.2 k/uL (0-0.7); Eosinophils % (A) 1 %; HCT 36.1 % (34.0-46.0); Lymphocytes # (A) 0.9 k/uL (1.0-4.8); Lymphocytes % (A) 4 %; MCH 28.7 pg (25.0-35.0); MCHC 33.3 g/dL (31.0-37.0); MCV 86.2 fL (80.0-100.0); Mean Platelet Volume 6.8; Monocytes # (A) 0.5 k/uL (0-1.0); Monocytes % (A) 2 %; Neutrophils # (A) 18.4 k/uL (1.3-7.7); Neutrophils % (A) 92 %; Platelet Count 258 k/uL (150-450); RBC 4.19 m/uL (3.80-5.40); RDW 14.8 % (11.5-15.5); WBC 20.1 k/uL (3.8-10.6)
[2017-08-29 19:27] LABS: ALT 26 U/L (9-52); AST 14 U/L (14-36); Albumin 3.7 g/dL (3.5-5.0); Alkaline Phosphatase 48 U/L (38-126); Anion Gap 6 mmol/L; Blood Urea Nitrogen 18 mg/dL (7-17); Calcium 9.6 mg/dL (8.4-10.2); Carbon Dioxide 30 mmol/L (22-30); Chloride 101 mmol/L (98-107); Glucose 116 mg/dL (74-99); Potassium 4.6 mmol/L (3.5-5.1); Sodium 137 mmol/L (137-145); Total Bilirubin 0.3 mg/dL (0.2-1.3); Total Protein 6.3 g/dL (6.3-8.2)
--- NOTE | 2017-08-29 20:06 | US ---
EXAMINATION TYPE: US venous doppler duplex LE RT DATE OF EXAM: 08/29/2017 7:56 PM COMPARISON: NONE CLINICAL HISTORY: Pain. Right leg wound. Redness and pain. Exam limitations due to body habitus. SIDE PERFORMED: Right TECHNIQUE: The lower extremity deep venous system is examined utilizing real time linear array sonog see with graded compression, doppler sonography and color-flow sonography. VESSELS IMAGED: External Iliac Vein (EIV) Common Femoral Vein Deep Femoral Vein Greater Saphenous Vein * Femoral Vein Popliteal Vein Right Leg: Negative for DVT No evidence of DVT right leg. IMPRESSION: No evidence of deep venous thrombosis in the right leg.
--- NOTE | 2017-08-29 20:28 | XR ---
EXAMINATION TYPE: XR tibia fibula RT DATE OF EXAM: 08/29/2017 COMPARISON: 08/11/2017 HISTORY: Cellulitis TECHNIQUE: 4 views FINDINGS: There is a plate with screws fixing the proximal tibia. There is soft tissue swelling aroun d the entire lower leg. I see no fracture nor dislocation. Ankle mortise is anatomic. IMPRESSION: Soft tissue swelling similar to old exam. No fracture. No sign of osteomyelitis.
[2017-08-29] MEDS ORDERED: VANCOMYCIN IV PER PHARMACY 1 EACH MISC MISCELLANE PRN (21:01)
[2017-08-29] MEDS ORDERED: MORPHINE SULFATE 4 MG/ML SYRINGE IV STA (21:02)
[2017-08-29] MEDS ORDERED: AMPICILLIN-SULBACTAM 3 GM in SODIUM CHLORIDE 0.9% 100 ML IVPB STA (21:08)
[2017-08-29] MEDS ORDERED: IBUPROFEN 400 MG TAB PO PRN (21:18)
[2017-08-29] MEDS ORDERED: ONDANSETRON 4 MG/2 ML VIAL IVP PRN (21:18)
[2017-08-29] MEDS ORDERED: ACETAMINOPHEN TAB 325 MG TAB PO PRN (21:18)
[2017-08-29] MEDS ORDERED: NALOXONE 0.4 MG/ML 1 ML VIAL IV PRN (21:18)
[2017-08-29] MEDS ORDERED: VANCOMYCIN 2,500 MG in SODIUM CHLORIDE 0.9% 500 ML IVPB ONE ×2 (21:30→22:00)
[2017-08-29] MEDS ORDERED: POTASSIUM CHLORIDE ER 20 MEQ TAB.ER PO SCH (21:45)
[2017-08-29] MEDS ORDERED: FUROSEMIDE 40 MG TAB PO SCH (21:45)
[2017-08-29] MEDS: SODIUM CHLORIDE 0.9% 1,000 ML IV SCH (23:06)
[2017-08-30] MEDS: MORPHINE SULFATE 4 MG/ML SYRINGE IV PRN ×4 (01:51→15:15)
[2017-08-30] MEDS: AMPICILLIN-SULBACTAM 3 GM in SODIUM CHLORIDE 0.9% 100 ML IVPB SCH ×3 (06:33→22:08)
[2017-08-30 07:28] LABS: Glucose,Whole Blood 145 mg/dL (75-99)
[2017-08-30] MEDS: IPRATROPIUM-ALBUTEROL 3 ML NEB INHALATION SCH ×4 (07:42→21:21)
[2017-08-30] MEDS: BUDESONIDE 0.5 MG/2 ML NEBU INHALATION SCH ×2 (07:42→21:21)
[2017-08-30] MEDS ORDERED: ALBUTEROL INHALER 60 PUFF/8 GM INHALER INHALATION SCH (08:00)
[2017-08-30 09:17] LABS: Basophils % (A) 0 %; Eosinophils # (A) 0.2 k/uL (0-0.7); Eosinophils % (A) 1 %; HGB 11.4 gm/dL (11.4-16.0); Lymphocytes # (A) 2.2 k/uL (1.0-4.8); Lymphocytes % (A) 15 %; MCH 28.4 pg (25.0-35.0); MCHC 32.7 g/dL (31.0-37.0); MCV 86.8 fL (80.0-100.0); Mean Platelet Volume 7.2; Monocytes # (A) 0.2 k/uL (0-1.0); Monocytes % (A) 1 %; Neutrophils # (A) 12.3 k/uL (1.3-7.7); Neutrophils % (A) 82 %; Platelet Count 253 k/uL (150-450); RBC 4.03 m/uL (3.80-5.40); RDW 14.7 % (11.5-15.5)
[2017-08-30 09:27] LABS: ALT 26 U/L (9-52); AST 9 U/L (14-36); Albumin 3.2 g/dL (3.5-5.0); Alkaline Phosphatase 46 U/L (38-126); Anion Gap 7 mmol/L; Blood Urea Nitrogen 16 mg/dL (7-17); Calcium 8.5 mg/dL (8.4-10.2); Carbon Dioxide 33 mmol/L (22-30); Chloride 100 mmol/L (98-107); Glucose 146 mg/dL (74-99); Potassium 3.9 mmol/L (3.5-5.1); Sodium 140 mmol/L (137-145); Total Bilirubin 0.4 mg/dL (0.2-1.3); Total Protein 5.6 g/dL (6.3-8.2)
[2017-08-30] MEDS: predniSONE 20 MG TAB PO SCH (10:30)
[2017-08-30] MEDS: LISINOPRIL 10 MG TAB PO SCH (10:30)
[2017-08-30] MEDS: SODIUM CHLORIDE 0.9% 1,000 ML IV SCH ×3 (10:30→22:09)
[2017-08-30] MEDS ORDERED: VANCOMYCIN 2,250 MG in SODIUM CHLORIDE 0.9% 500 ML IVPB SCH (12:00)
[2017-08-30 12:19] LABS: Glucose,Whole Blood 214 mg/dL (75-99)
[2017-08-30] MEDS: VANCOMYCIN 2,250 MG in SODIUM CHLORIDE 0.9% 500 ML IVPB SCH ×2 (13:16→23:17)
[2017-08-30] MEDS: KETOROLAC 30 MG/ML 1 ML VIAL IVP SCH ×3 (13:16→23:15)
[2017-08-30] MEDS: METHADONE 10 MG TAB PO SCH (13:17)
[2017-08-30 17:12] LABS: Glucose,Whole Blood 271 mg/dL (75-99)
[2017-08-30 20:55] LABS: Glucose,Whole Blood 200 mg/dL (75-99)
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
[2017-08-30] MEDS: FUROSEMIDE 10 MG/ML 4 ML VIAL IV SCH (22:04)
[2017-08-30] MEDS: POTASSIUM CHLORIDE ER 20 MEQ TAB.ER PO SCH (22:08)
[2017-08-30] MEDS: MORPHINE ORAL SOLN 10 MG/5 ML CUP PO PRN (22:09)
[2017-08-31] MEDS: MORPHINE ORAL SOLN 10 MG/5 ML CUP PO PRN ×4 (05:16→21:12)
[2017-08-31] MEDS: AMPICILLIN-SULBACTAM 3 GM in SODIUM CHLORIDE 0.9% 100 ML IVPB SCH ×2 (05:16→16:57)
[2017-08-31] MEDS: KETOROLAC 30 MG/ML 1 ML VIAL IVP SCH ×3 (05:59→17:44)
[2017-08-31 06:59] LABS: Glucose,Whole Blood 124 mg/dL (75-99)
[2017-08-31] MEDS: METHADONE 10 MG TAB PO SCH (08:13)
[2017-08-31] MEDS: LISINOPRIL 10 MG TAB PO SCH ×2 (08:13→11:06)
[2017-08-31] MEDS: POTASSIUM CHLORIDE ER 20 MEQ TAB.ER PO SCH ×2 (08:13→21:07)
[2017-08-31] MEDS: predniSONE 20 MG TAB PO SCH (08:13)
[2017-08-31] MEDS: FUROSEMIDE 10 MG/ML 4 ML VIAL IV SCH ×2 (08:14→20:49)
[2017-08-31] MEDS: metFORMIN 500 MG TAB PO SCH ×2 (08:15→17:44)
[2017-08-31] MEDS: IPRATROPIUM-ALBUTEROL 3 ML NEB INHALATION SCH ×4 (08:49→20:03)
[2017-08-31] MEDS: BUDESONIDE 0.5 MG/2 ML NEBU INHALATION SCH ×2 (08:49→20:03)
[2017-08-31 10:45] LABS: Basophils % (A) 0 %; Eosinophils # (A) 0.1 k/uL (0-0.7); Eosinophils % (A) 1 %; HGB 12.4 gm/dL (11.4-16.0); Lymphocytes % (A) 14 %; MCH 27.9 pg (25.0-35.0); MCHC 31.8 g/dL (31.0-37.0); MCV 87.8 fL (80.0-100.0); Mean Platelet Volume 6.6; Monocytes # (A) 0.4 k/uL (0-1.0); Monocytes % (A) 3 %; Neutrophils % (A) 82 %; Platelet Count 254 k/uL (150-450); RBC 4.44 m/uL (3.80-5.40); RDW 14.4 % (11.5-15.5); WBC 14.7 k/uL (3.8-10.6)
[2017-08-31 11:10] LABS: Anion Gap 9 mmol/L; Blood Urea Nitrogen 16 mg/dL (7-17); Carbon Dioxide 35 mmol/L (22-30); Chloride 97 mmol/L (98-107); Glucose 176 mg/dL (74-99); Potassium 3.6 mmol/L (3.5-5.1); Sodium 141 mmol/L (137-145)
[2017-08-31] MEDS: VANCOMYCIN 2,250 MG in SODIUM CHLORIDE 0.9% 500 ML IVPB SCH (12:15)
[2017-08-31 12:26] LABS: Glucose,Whole Blood 177 mg/dL (75-99)
[2017-08-31 17:00] LABS: Glucose,Whole Blood 198 mg/dL (75-99)
[2017-08-31] MEDS: SODIUM CHLORIDE 0.9% 1,000 ML IV SCH ×2 (17:05→23:42)
[2017-08-31] MEDS: PIPERACILLIN-TAZOBACTAM 3.375 GM in DEXTROSE/WATER 1 50ML.BAG IVPB SCH (19:24)
[2017-08-31 20:49] LABS: Glucose,Whole Blood 144 mg/dL (75-99)
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
[2017-09-01] MEDS: VANCOMYCIN 2,250 MG in SODIUM CHLORIDE 0.9% 500 ML IVPB SCH ×3 (00:56→23:52)
[2017-09-01] MEDS: KETOROLAC 30 MG/ML 1 ML VIAL IVP SCH ×5 (00:56→23:53)
[2017-09-01] MEDS: MORPHINE ORAL SOLN 10 MG/5 ML CUP PO PRN ×5 (02:40→23:52)
[2017-09-01] MEDS: PIPERACILLIN-TAZOBACTAM 3.375 GM in DEXTROSE/WATER 1 50ML.BAG IVPB SCH ×3 (04:17→16:47)
[2017-09-01 07:36] LABS: Glucose,Whole Blood 150 mg/dL (75-99)
[2017-09-01] MEDS: LISINOPRIL 10 MG TAB PO SCH ×2 (08:18→08:22)
[2017-09-01] MEDS: metFORMIN 500 MG TAB PO SCH ×2 (08:19→16:43)
[2017-09-01] MEDS: FUROSEMIDE 10 MG/ML 4 ML VIAL IV SCH ×2 (08:19→08:23)
[2017-09-01] MEDS: POTASSIUM CHLORIDE ER 20 MEQ TAB.ER PO SCH ×2 (08:19→20:15)
[2017-09-01] MEDS: predniSONE 20 MG TAB PO SCH (08:19)
[2017-09-01] MEDS: SODIUM CHLORIDE 0.9% 1,000 ML IV SCH ×2 (08:20→20:16)
[2017-09-01] MEDS: BUDESONIDE 0.5 MG/2 ML NEBU INHALATION SCH ×2 (08:28→19:11)
[2017-09-01] MEDS: IPRATROPIUM-ALBUTEROL 3 ML NEB INHALATION SCH ×4 (08:28→19:11)
[2017-09-01] MEDS: METHADONE 10 MG TAB PO SCH (08:30)
[2017-09-01] MEDS ORDERED: VANCOMYCIN TROUGH DUE 1 EACH MISC MISCELLANE ONE (11:00)
[2017-09-01 11:48] LABS: Basophils % (A) 0 %; Eosinophils # (A) 0.1 k/uL (0-0.7); Eosinophils % (A) 1 %; HCT 35.7 % (34.0-46.0); Lymphocytes # (A) 1.1 k/uL (1.0-4.8); Lymphocytes % (A) 10 %; MCH 27.3 pg (25.0-35.0); MCHC 30.7 g/dL (31.0-37.0); Mean Platelet Volume 6.9; Monocytes # (A) 0.5 k/uL (0-1.0); Monocytes % (A) 4 %; Neutrophils # (A) 9.6 k/uL (1.3-7.7); Neutrophils % (A) 84 %; Platelet Count 258 k/uL (150-450); RBC 4.01 m/uL (3.80-5.40); RDW 14.5 % (11.5-15.5); WBC 11.3 k/uL (3.8-10.6)
[2017-09-01 11:54] LABS: Anion Gap 6 mmol/L; Blood Urea Nitrogen 24 mg/dL (7-17); Calcium 9.6 mg/dL (8.4-10.2); Carbon Dioxide 36 mmol/L (22-30); Chloride 98 mmol/L (98-107); Glucose 140 mg/dL (74-99); Sodium 140 mmol/L (137-145)
[2017-09-01] MEDS ORDERED: KETOROLAC 30 MG/ML 1 ML VIAL ONE (12:00)
[2017-09-01 12:04] LABS: Glucose,Whole Blood 208 mg/dL (75-99)
[2017-09-01 12:08] LABS: Potassium 4.5 mmol/L (3.5-5.1)
[2017-09-01] MEDS ORDERED: FUROSEMIDE 10 MG/ML 4 ML VIAL IV SCH (16:00)
[2017-09-01] MEDS: FUROSEMIDE 40 MG TAB PO SCH (16:42)
--- NOTE | 2017-09-01 17:17 | P.PN ---
Subjective Progress Note Date: 08/31/17 This is a 47-year-old -T[place] female patient of Dr. Dean with past medical history of the left thigh wound that was treated at the wound healing Center under the care of Dr. Hernandez through 02/08/2017, chronic lymphedema, chronic pain on methadone osteoarthritis, spinal stenosis, pulmonary sarcoidosis followed by Dr. KASIE Anderson currently on prednisone 80 mg daily. Patient has been treated for lymphedema in the outpatient setting with daily wraps which was effective but then changed to sequential compression that did not help her edema. Patient was last admitted Back - with a fall 4 weeks prior to that admission secondary to loss of balance and hit her leg with the wheelchair causing a wound and was treated for lymphedema, edema and cellulitis as well as the leg ulcer, Dr. Rivera was in attendance at that time. Patient was negative for deep venous thrombosis. Wound cultures were growing MSSA, from the right leg, and was discharged on cephalexin for additional 7 more days with outpatient follow-up to PCP and Dr. Rivera in his office. Patient did not show up the homecare were not signed, the wound dressing has not been unwrapped since then. Patient also did not see Dr. Rivera in his scheduled appointment In emergency room, patient has had increasing leg swelling, worsened when we evaluated her last time, also a new wound in the medial aspect of the lower leg as she flung her right leg hitting her left toe nail, therefore puncturing it with her own toenail. The wound now measures 2.5 cm x 2 cm the anicteric, with slight mucoid granulation, significant edema, with cultures have been sent, patient was started on Unasyn and vancomycin from the emergency room, consults were with Dr. Rivera, IV Lasix for edema, 08/31: Consult with Dr. Rivera has been placed. Patient is on IV Lasix. She continues to have lower extremity edema. Temperature max yesterday was 100.0. Consult will be added for Dr. KASIE Anderson regarding pulmonary sarcoidosis and large doses of prednisone. Patient states that she is unable to be weaned down on prednisone due to the severity of her disease. Objective - Vital Signs Vital signs: Vital Signs Temp 99.3 F 08/31/17 15:00 Pulse 84 08/31/17 15:09 Resp 18 08/31/17 15:00 BP 140/80 08/31/17 15:00 Pulse Ox 98 08/31/17 15:00 Intake & Output 08/30/17 08/31/17 08/31/17 18:59 06:59 18:59 Intake Total 1300 325 Balance 1300 325 Intake: Intake, IV Titration 1300 Amount Sodium Chloride 0.9% 1, 800 000 ml @ 100 mls/hr IV . Q10H [facility] Rx#:[id number] Vancomycin 2,250 mg In 500 Sodium Chloride 0.9% 500 ml @ 167 mls/hr IVPB Q12H [facility] Rx#:[id number] Oral 325 Other: Voiding Method Bedside Commode Incontinent # Voids 2 1 3 # Bowel Movements 1 1 - Exam General appearance: cooperative, no acute distress - EENT Eyes: EOMI, PERRLA - Neck Neck: lymphadenopathy - Respiratory Respiratory: bilateral: CTA, negative: diminished, dullness, rales - Cardiovascular Rhythm: regular Heart sounds: normal: S1, S2 Abnormal Heart Sounds: no systolic murmur, no diastolic murmur, no rub, no S3 Gallop, no S4 Gallop, no click, no other - Gastrointestinal General gastrointestinal: normal bowel sounds, soft - Integumentary Integumentary: decreased turgor, normal, ulcer (Right leg 2.5 cm x 2 cm, granulation with mucoid discharge, right lateral right leg, right medial lower leg shows small puncture wound 0.5 x 0.8 cm, depth cannot be estimated left is okay) - Neurologic Neurologic: CNII-XII intact - Labs CBC & Chem 7: 09/01/17 11:06 09/01/17 11:06 Labs: Abnormal Lab Results - Last 24 Hours (Table) 08/30/17 08/30/17 08/31/17 Range/Units 17:09 20:40 06:57 WBC (3.8-10.6) k/uL Neutrophils # (1.3-7.7) k/uL Chloride (98-107) mmol/L Carbon Dioxide (22-30) mmol/L Glucose (74-99) mg/dL POC Glucose (mg/dL) 271 H 200 H 124 H (75-99) mg/dL 08/31/17 08/31/17 08/31/17 Range/Units 09:47 09:47 12:24 WBC 14.7 H (3.8-10.6) k/uL Neutrophils # 12.0 H (1.3-7.7) k/uL Chloride 97 L (98-107) mmol/L Carbon Dioxide 35 H (22-30) mmol/L Glucose 176 H (74-99) mg/dL POC Glucose (mg/dL) 177 H (75-99) mg/dL Microbiology - Last 24 Hours (Table) 08/29/17 17:07 Gram Stain - Preliminary Ankle - Right Wound Culture - Preliminary Presumptive Staph aureus Gram Neg Bacilli 08/29/17 17:07 Blood Culture - Preliminary Blood No Growth after 24 hours Assessment and Plan Plan: 1. Leg Cellulitis, edema lower extremity Recurrent wound to the right lower extremity mid calf with pre-existing lymphedema present prior to admission.Now nonhealing Prior MSSA in July 2017, now with new wound right medial leg she wanted from her [facility] , patient is on chronic prednisone as well, Patient is currently on vancomycin and Unasyn Consult with Dr. Rivera in place. Dilaudid and Toradol for pain. Resume methadone, Diuretics with Lasix 40 mg every 12 hours with potassium supplementation. Cultures are currently pending 2. Sarcoidosis. Under the care of Dr KASIE Anderson. Patient is currently on prednisone 80 mg daily and albuterol nebulizer 4 times daily. We'll reconsult Dr. Anderson to possibly recommend treatment options 3. Chronic hypoxic respiratory failure on home O2 at 3 L nasal cannula. 4. Chronic pain syndrome. Continue methadone 105 mg daily. 5. Diabetes mellitus type 2, he would initiate diabetic treatments with metformin 500 mg twice a day 5. GI prophylaxis. Pepcid. 6. DVT prophylaxis. Heparin subcu. 7. Morbid obesity with BMI of 57. Hemoglobin A1c last August 12 was 6.9 8. Mild protein malnutrition, serum albumin 3.2, supplements to be given 9. Chronic hypercarbia, underlying sleep apnea suspected, unsure about current sleep study treatments 10. Chronic long-term use of steroid oral prednisone secondary to pulmonary sarcoid. Consult with Dr. KASIE Anderson. Discharge plan: [facility] Impression and plan of care have been directed as dictated by the signing physician. Jeanne Roca nurse practitioner acting as scribe for signing physician.
[2017-09-01 17:25] LABS: Glucose,Whole Blood 247 mg/dL (75-99)
[2017-09-01 21:07] LABS: Glucose,Whole Blood 180 mg/dL (75-99)
--- NOTE | 2017-09-01 23:47 | P.PN ---
Subjective Progress Note Date: 09/01/17 Principal diagnosis: Sepsis This is a 47-year-old -[place] female with past medical history of the left thigh wound that was treated at the wound healing Center under the care of Dr. Hernandez through 02/08/2017. Patient has been treated for lymphedema in the outpatient setting with daily wraps which was effective but then changed to sequential compression that did not help her edema. Patient states that she had a fall 4 weeks ago as she has had foot drop in the right and lost her balance in her right leg hit her wheelchair causing a wound. She has been using a wound wash and colloidal silver dressing and wrapping daily. She has not been on any antibiotics. She has not sought treatment for this until she came into [facility] emergency center on August 11 as she has had increased pain, edema and redness to the right lower extremity. Ultrasound was negative for DVT. There was nonspecific edematous reticular change in the right calf but negative for abnormal focal fluid or gas collection to suggest abscess. Tib-fib x-ray was negative for acute process.. She denies having any fever, chills, nausea, vomiting, shortness of breath. She does have sarcoidosis followed by Dr. KASIE Anderson and is home O2 dependent at 3 L nasal cannula. Her breathing is at her baseline. She was recently hospitalized for cellulitis of the right lower extremity. He was treated with local care, antibiotic therapy and some elevation in she had improvement. Sent home on oral cefuroxime was doing well. However home care could not be arranged the dressing was not changed. By the time it was removed she had another injury from the left great toe accidentally injuring the medial aspect of the right calf which further worsened the swelling erythema tenderness in drainage from the leg. Because of the lack of improvement she again presented to the emergency center has been admitted for evaluation and treatment of her cellulitis to the right leg complicated by her hemiparesis to the lower extremities and her obesity. 09/01/2017 reveals the patient to be slightly more comfortable. She denying significant fever chills or rigors or sweats. Leg is still uncomfortable. Is having difficulty tolerating compression which is not unusual for her which leads to her problems is without compression she has edema. Objective - Vital Signs Vital signs: Vital Signs Temp 99.0 F 09/01/17 15:00 Pulse 80 09/01/17 16:04 Resp 20 09/01/17 15:00 BP 139/89 09/01/17 15:00 Pulse Ox 97 09/01/17 15:00 Intake & Output 09/01/17 09/01/17 09/02/17 06:59 18:59 06:59 Intake Total 600 720 500 Balance 600 720 500 Weight 158.757 kg Intake: Oral 600 720 500 Other: Voiding Method Bedside Commode Incontinent # Voids 1 1 # Bowel Movements 1 - Exam Gen: This is a morbidly obese 47-year-old -[place] female. She is sitting up in bed eating her breakfast and appears to be in no acute distress. No respiratory distress is noted. She does have oxygen in place. HEENT: Head is atraumatic, normocephalic. Pupils equal, round. Sclerae is anicteric. Conjunctiva pink. Mucous members of the mouth are moist. No thrush noted. NECK: Supple. No JVD. No lymphadenopathy. No thyromegaly. LUNGS: Diminished. No wheezes or rhonchi. No intercostal retractions. HEART: Distant heart sounds. Regular rate and rhythm. No murmur. ABDOMEN: Soft. Bowel sounds are present. No masses. No tenderness. EXTREMITIES: Bilateral 2+ pedal edema. The left lower extremities without acute lesions. The right lower extremity reveals evidence of the ulceration was in the lateral surface of the calf that measures approximately 3.2x1.2 x 0.2 cm. The new injury is medial calf measuring at 1 x 1 x 0.2 cm. Both areas have evidence of slough at the base. There is dense erythema over that region. It is quite tender to touch. There is a distinct swelling and erythema in this region. She has minimal tenderness into the right groin at the inguinal lymph node. But no erythema is seen in that region. The left leg without open lesions NEUROLOGICAL: Patient is awake, alert and oriented x3. - Labs CBC & Chem 7: 09/01/17 11:06 09/01/17 11:06 Labs: Abnormal Lab Results - Last 24 Hours (Table) 09/01/17 09/01/17 09/01/17 Range/Units 06:58 11:06 11:06 WBC 11.3 H (3.8-10.6) k/uL Hgb 11.0 L (11.4-16.0) gm/dL MCHC 30.7 L (31.0-37.0) g/dL Neutrophils # 9.6 H (1.3-7.7) k/uL Carbon Dioxide 36 H (22-30) mmol/L BUN 24 H (7-17) mg/dL Glucose 140 H (74-99) mg/dL POC Glucose (mg/dL) 150 H (75-99) mg/dL 09/01/17 09/01/17 09/01/17 Range/Units 11:59 17:13 20:48 WBC (3.8-10.6) k/uL Hgb (11.4-16.0) gm/dL MCHC (31.0-37.0) g/dL Neutrophils # (1.3-7.7) k/uL Carbon Dioxide (22-30) mmol/L BUN (7-17) mg/dL Glucose (74-99) mg/dL POC Glucose (mg/dL) 208 H 247 H 180 H (75-99) mg/dL Microbiology - Last 24 Hours (Table) 08/29/17 17:07 Gram Stain - Final Ankle - Right Wound Culture - Final Staphylococcus aureus Acinetobacter lwoffi grp Enterobacter cloacae 08/29/17 17:07 Blood Culture - Preliminary Blood No Growth after 72 hours Laboratory Results WBC 11.3 k/uL (3.8-10.6) H 09/01/17 11:06 RBC 4.01 m/uL (3.80-5.40) 09/01/17 11:06 Hgb 11.0 gm/dL (11.4-16.0) L 09/01/17 11:06 Hct 35.7 % (34.0-46.0) 09/01/17 11:06 MCV 89.0 fL (80.0-100.0) 09/01/17 11:06 MCH 27.3 pg (25.0-35.0) 09/01/17 11:06 MCHC 30.7 g/dL (31.0-37.0) L 09/01/17 11:06 RDW 14.5 % (11.5-15.5) 09/01/17 11:06 Plt Count 258 k/uL (150-450) 09/01/17 11:06 Neutrophils % 84 % 09/01/17 11:06 Lymphocytes % 10 % 09/01/17 11:06 Monocytes % 4 % 09/01/17 11:06 Eosinophils % 1 % 09/01/17 11:06 Basophils % 0 % 09/01/17 11:06 Neutrophils # 9.6 k/uL (1.3-7.7) H 09/01/17 11:06 Lymphocytes # 1.1 k/uL (1.0-4.8) 09/01/17 11:06 Monocytes # 0.5 k/uL (0-1.0) 09/01/17 11:06 Eosinophils # 0.1 k/uL (0-0.7) 09/01/17 11:06 Basophils # 0.0 k/uL (0-0.2) 09/01/17 11:06 Sodium 140 mmol/L (137-145) 09/01/17 11:06 Potassium 4.5 mmol/L (3.5-5.1) 09/01/17 11:06 Chloride 98 mmol/L (98-107) 09/01/17 11:06 Carbon Dioxide 36 mmol/L (22-30) H 09/01/17 11:06 Anion Gap 6 mmol/L 09/01/17 11:06 BUN 24 mg/dL (7-17) H 09/01/17 11:06 Creatinine 0.80 mg/dL (0.52-1.04) 09/01/17 11:06 Est GFR (CKD-EPI)AfAm >90 (>60 ml/min/1.73 sqM) 09/01/17 11:06 Est GFR (CKD-EPI)NonAf 87 (>60 ml/min/1.73 sqM) 09/01/17 11:06 Glucose 140 mg/dL (74-99) H 09/01/17 11:06 POC Glucose (mg/dL) 180 mg/dL (75-99) H 09/01/17 20:48 POC Glu Medical Representative ID Madelyn Estrada 09/01/17 20:48 Plasma Lactic Acid Andrey 1.5 mmol/L (0.7-2.0) 08/29/17 21:10 Calcium 9.6 mg/dL (8.4-10.2) 09/01/17 11:06 Total Bilirubin 0.4 mg/dL (0.2-1.3) 08/30/17 09:00 AST 9 U/L (14-36) L 08/30/17 09:00 ALT 26 U/L (9-52) 08/30/17 09:00 Alkaline Phosphatase 46 U/L (38-126) 08/30/17 09:00 Total Protein 5.6 g/dL (6.3-8.2) L 08/30/17 09:00 Albumin 3.2 g/dL (3.5-5.0) L 08/30/17 09:00 Vancomycin Trough 18.6 ug/mL 09/01/17 11:06 Microbiology 08/29/17 17:07 Ankle - Right Gram Stain - Final 08/29/17 17:07 Ankle - Right Wound Culture - Final Staphylococcus aureus Acinetobacter lwoffi grp Enterobacter cloacae 08/29/17 17:07 Blood Blood Culture - Preliminary No Growth after 72 hours Assessment and Plan (1) Cellulitis of right leg Narrative/Plan: 47-year-old woman presents to the emergency center with a several-day history of increasing pain and swelling erythema and drainage to her right lower extremity. She was recently hospitalized at which point in time she received treatment for the cellulitis and ulceration to her right leg. She was treated with local therapy and antibiotics and a marked improvement. However at home she had difficulty with local wound care. Apparently home care nurse did not come to the home. She does not have ongoing care to the area it worsens she now has new ulceration medially from a unintentionally self-inflicted injury from her toenail of the left foot onto the right leg. She has significant cellulitis and worsening to the area. Local wound care will initiate with medical plan to the open areas and a wrap from the foot to the knee. Elevation at rest. Antibiotic therapy has been directed with vancomycin and Zosyn until we have further data based on prior culture results with Pseudomonas and staph aureus. Her protein status is adequate she is up-to-date with her vaccines will add a multivitamin with zinc to help her healing. We'll have to construct a plan for discharge the may include outpatient intravenous antibiotic therapy depending on the final culture results. 09/01/2017 reveals the patient to be slightly improved. She seems responding to current antibiotic therapy well. Await final susceptibilities to allow streamlining of her antibiotic therapy. She'll need further local care before she is ready for discharge to home because of her significant discomfort. Leukocytosis improving and no fever is noted today. Current Visit: Yes Status: Acute Code(s): L03.115 - CELLULITIS OF RIGHT LOWER LIMB SNOMED Code(s): 403744031 (2) Failure of outpatient treatment Current Visit: Yes Status: Acute Code(s): Z78.9 - OTHER SPECIFIED HEALTH STATUS SNOMED Code(s): 184459560 (3) Sarcoidosis Current Visit: Yes Status: Acute Code(s): D86.9 - SARCOIDOSIS, UNSPECIFIED SNOMED Code(s): 67013142 (4) Leukocytosis Current Visit: Yes Status: Acute Code(s): D72.829 - ELEVATED WHITE BLOOD CELL COUNT, UNSPECIFIED SNOMED Code(s): 713657362
[2017-09-02] MEDS: PIPERACILLIN-TAZOBACTAM 3.375 GM in DEXTROSE/WATER 1 50ML.BAG IVPB SCH ×3 (03:24→17:07)
[2017-09-02] MEDS: KETOROLAC 30 MG/ML 1 ML VIAL IVP SCH ×4 (06:18→23:22)
[2017-09-02] MEDS: MORPHINE ORAL SOLN 10 MG/5 ML CUP PO PRN ×4 (06:18→21:48)
[2017-09-02] MEDS: SODIUM CHLORIDE 0.9% 1,000 ML IV SCH ×2 (06:19→15:43)
[2017-09-02] MEDS: BUDESONIDE 0.5 MG/2 ML NEBU INHALATION SCH ×2 (07:29→19:36)
[2017-09-02] MEDS: IPRATROPIUM-ALBUTEROL 3 ML NEB INHALATION SCH ×4 (07:29→19:36)
[2017-09-02 07:47] LABS: Glucose,Whole Blood 177 mg/dL (75-99)
[2017-09-02] MEDS: metFORMIN 500 MG TAB PO SCH ×2 (08:15→17:07)
[2017-09-02] MEDS: FUROSEMIDE 40 MG TAB PO SCH ×2 (08:15→15:43)
[2017-09-02] MEDS: LISINOPRIL 10 MG TAB PO SCH (08:15)
[2017-09-02] MEDS: METHADONE 10 MG TAB PO SCH (08:15)
[2017-09-02] MEDS: METOLAZONE 2.5 MG TAB PO SCH (08:16)
[2017-09-02] MEDS: POTASSIUM CHLORIDE ER 20 MEQ TAB.ER PO SCH ×2 (08:16→21:45)
[2017-09-02] MEDS: predniSONE 20 MG TAB PO SCH (08:16)
[2017-09-02 09:23] LABS: Basophils # (A) 0.1 k/uL (0-0.2); Basophils % (A) 1 %; Eosinophils # (A) 0.1 k/uL (0-0.7); Eosinophils % (A) 1 %; HCT 35.4 % (34.0-46.0); HGB 11.6 gm/dL (11.4-16.0); Lymphocytes # (A) 2.2 k/uL (1.0-4.8); Lymphocytes % (A) 20 %; MCH 28.4 pg (25.0-35.0); MCHC 32.7 g/dL (31.0-37.0); MCV 86.9 fL (80.0-100.0); Mean Platelet Volume 6.8; Monocytes # (A) 0.4 k/uL (0-1.0); Monocytes % (A) 4 %; Neutrophils % (A) 73 %; Platelet Count 283 k/uL (150-450); RBC 4.07 m/uL (3.80-5.40); RDW 14.1 % (11.5-15.5)
[2017-09-02 09:41] LABS: Calcium 9.6 mg/dL (8.4-10.2); Potassium 3.8 mmol/L (3.5-5.1)
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
[2017-09-02] MEDS: VANCOMYCIN 2,250 MG in SODIUM CHLORIDE 0.9% 500 ML IVPB SCH ×2 (12:01→23:25)
[2017-09-02 12:31] LABS: Glucose,Whole Blood 162 mg/dL (75-99)
--- NOTE | 2017-09-02 15:13 | P.PN ---
Subjective Progress Note Date: 09/01/17 This is a 47-year-old -Slov[place] female patient of Dr. Dean with past medical history of the left thigh wound that was treated at the wound healing Center under the care of Dr. Hernandez through 02/08/2017, chronic lymphedema, chronic pain on methadone osteoarthritis, spinal stenosis, pulmonary sarcoidosis followed by Dr. KASIE Anderson currently on prednisone 80 mg daily. Patient has been treated for lymphedema in the outpatient setting with daily wraps which was effective but then changed to sequential compression that did not help her edema. Patient was last admitted Back - with a fall 4 weeks prior to that admission secondary to loss of balance and hit her leg with the wheelchair causing a wound and was treated for lymphedema, edema and cellulitis as well as the leg ulcer, Dr. Rivera was in attendance at that time. Patient was negative for deep venous thrombosis. Wound cultures were growing MSSA, from the right leg, and was discharged on cephalexin for additional 7 more days with outpatient follow-up to PCP and Dr. Rivera in his office. Patient did not show up the homecare were not signed, the wound dressing has not been unwrapped since then. Patient also did not see Dr. Rivera in his scheduled appointment In emergency room, patient has had increasing leg swelling, worsened when we evaluated her last time, also a new wound in the medial aspect of the lower leg as she flung her right leg hitting her left toe nail, therefore puncturing it with her own toenail. The wound now measures 2.5 cm x 2 cm the anicteric, with slight mucoid granulation, significant edema, with cultures have been sent, patient was started on Unasyn and vancomycin from the emergency room, consults were with Dr. Rivera, IV Lasix for edema, 08/31: Consult with Dr. Rivera has been placed. Patient is on IV Lasix. She continues to have lower extremity edema. Temperature max yesterday was 100.0. Consult will be added for Dr. KASIE Anderson regarding pulmonary sarcoidosis and large doses of prednisone. Patient states that she is unable to be weaned down on prednisone due to the severity of her disease. 09/01: Patient has been seen by Dr. Rivera and she is currently on Zosyn and vancomycin. Dr. KASIE Anderson has seen the patient and decreased prednisone to 70 mg daily. Patient is currently refusing Lasix IV and she wants a Lopez catheter placed. IV Lasix changed to oral and Zaroxolyn has been added. Female catheter to be trialed. Patient continues to feel very very sore in her leg and still swollen. Culture is showing gram-negative bacilli. Objective - Vital Signs Vital signs: Vital Signs Temp 97.2 F L 09/01/17 07:00 Pulse 82 09/01/17 11:59 Resp 21 09/01/17 07:00 BP 133/82 09/01/17 07:00 Pulse Ox 98 09/01/17 08:32 Intake & Output 08/31/17 09/01/17 09/01/17 18:59 06:59 18:59 Intake Total 600 240 Balance 600 240 Weight 158.757 kg Intake: Oral 600 240 Other: Voiding Method Bedside Commode Incontinent # Voids 3 1 # Bowel Movements 1 - Exam General appearance: cooperative, no acute distress - EENT Eyes: EOMI, PERRLA - Neck Neck: lymphadenopathy - Respiratory Respiratory: bilateral: CTA, negative: diminished, dullness, rales - Cardiovascular Rhythm: regular Heart sounds: normal: S1, S2 Abnormal Heart Sounds: no systolic murmur, no diastolic murmur, no rub, no S3 Gallop, no S4 Gallop, no click, no other - Gastrointestinal General gastrointestinal: normal bowel sounds, soft - Integumentary Integumentary: decreased turgor, normal, ulcer (Right leg 2.5 cm x 2 cm, granulation with mucoid discharge, right lateral right leg, right medial lower leg shows small puncture wound 0.5 x 0.8 cm, depth cannot be estimated left is okay) - Neurologic Neurologic: CNII-XII intact - Labs CBC & Chem 7: 09/02/17 08:42 09/02/17 08:42 Labs: Abnormal Lab Results - Last 24 Hours (Table) 08/31/17 08/31/17 09/01/17 Range/Units 16:54 20:24 06:58 WBC (3.8-10.6) k/uL Hgb (11.4-16.0) gm/dL MCHC (31.0-37.0) g/dL Neutrophils # (1.3-7.7) k/uL Carbon Dioxide (22-30) mmol/L BUN (7-17) mg/dL Glucose (74-99) mg/dL POC Glucose (mg/dL) 198 H 144 H 150 H (75-99) mg/dL 09/01/17 09/01/17 09/01/17 Range/Units 11:06 11:06 11:59 WBC 11.3 H (3.8-10.6) k/uL Hgb 11.0 L (11.4-16.0) gm/dL MCHC 30.7 L (31.0-37.0) g/dL Neutrophils # 9.6 H (1.3-7.7) k/uL Carbon Dioxide 36 H (22-30) mmol/L BUN 24 H (7-17) mg/dL Glucose 140 H (74-99) mg/dL POC Glucose (mg/dL) 208 H (75-99) mg/dL Microbiology - Last 24 Hours (Table) 08/29/17 17:07 Blood Culture - Preliminary Blood No Growth after 48 hours Assessment and Plan Plan: 1. Leg Cellulitis, edema lower extremity Recurrent wound to the right lower extremity mid calf with pre-existing lymphedema present prior to admission.Now nonhealing Prior MSSA in July 2017, now with new wound right medial leg she wanted from her [facility] , patient is on chronic prednisone as well, Patient is currently on vancomycin and Unasyn Consult with Dr. Rivera in place. Dilaudid and Toradol for pain. Resume methadone, Diuretics with Lasix 40 mg every 12 hours with potassium supplementation. Cultures are currently pending. Zaroxolyn added 2. Sarcoidosis. Under the care of Dr KASIE Anderson. Patient is currently on prednisone 80 mg daily and albuterol nebulizer 4 times daily. We'll reconsult Dr. Anderson to possibly recommend treatment options and prednisone decreased to 70 mg daily 3. Chronic hypoxic respiratory failure on home O2 at 3 L nasal cannula. 4. Chronic pain syndrome. Continue methadone 105 mg daily. 5. Diabetes mellitus type 2, initiate metformin 500 mg twice a day 5. GI prophylaxis. Pepcid. 6. DVT prophylaxis. Heparin subcu. 7. Morbid obesity with BMI of 57. Hemoglobin A1c last August 12 was 6.9 8. Mild protein malnutrition, serum albumin 3.2, supplements to be given 9. Chronic hypercarbia, underlying sleep apnea suspected, unsure about current sleep study treatments 10. Chronic long-term use of steroid oral prednisone secondary to pulmonary sarcoid. Consult with Dr. KASIE Anderson. Discharge plan: on Tuesday Impression and plan of care have been directed as dictated by the signing physician. Jeanne Roca nurse practitioner acting as scribe for signing physician.
--- NOTE | 2017-09-02 15:19 | P.PN ---
Subjective Progress Note Date: 09/02/17 This is a 47-year-old -[place] female patient of Dr. Dean with past medical history of the left thigh wound that was treated at the wound healing Center under the care of Dr. Hernandez through 02/08/2017, chronic lymphedema, chronic pain on methadone osteoarthritis, spinal stenosis, pulmonary sarcoidosis followed by Dr. KASIE Anderson currently on prednisone 80 mg daily. Patient has been treated for lymphedema in the outpatient setting with daily wraps which was effective but then changed to sequential compression that did not help her edema. Patient was last admitted Back - with a fall 4 weeks prior to that admission secondary to loss of balance and hit her leg with the wheelchair causing a wound and was treated for lymphedema, edema and cellulitis as well as the leg ulcer, Dr. Rivera was in attendance at that time. Patient was negative for deep venous thrombosis. Wound cultures were growing MSSA, from the right leg, and was discharged on cephalexin for additional 7 more days with outpatient follow-up to PCP and Dr. Rivera in his office. Patient did not show up the homecare were not signed, the wound dressing has not been unwrapped since then. Patient also did not see Dr. Rivera in his scheduled appointment In emergency room, patient has had increasing leg swelling, worsened when we evaluated her last time, also a new wound in the medial aspect of the lower leg as she flung her right leg hitting her left toe nail, therefore puncturing it with her own toenail. The wound now measures 2.5 cm x 2 cm the anicteric, with slight mucoid granulation, significant edema, with cultures have been sent, patient was started on Unasyn and vancomycin from the emergency room, consults were with Dr. Rivera, IV Lasix for edema, 08/31: Consult with Dr. Rivera has been placed. Patient is on IV Lasix. She continues to have lower extremity edema. Temperature max yesterday was 100.0. Consult will be added for Dr. KASIE Anderson regarding pulmonary sarcoidosis and large doses of prednisone. Patient states that she is unable to be weaned down on prednisone due to the severity of her disease. 09/01: Patient has been seen by Dr. Rivera and she is currently on Zosyn and vancomycin. Dr. KASIE Anderson has seen the patient and decreased prednisone to 70 mg daily. Patient is currently refusing Lasix IV and she wants a Lopez catheter placed. IV Lasix changed to oral and Zaroxolyn has been added. Female catheter to be trialed. Patient continues to feel very very sore in her leg and still swollen. Culture is showing gram-negative bacilli. 09/02: Wound culture is positive for Enterobacter coloration, Acinetobacter lwoffi, and MSSA. Await Dr. Rivera recommendations for antibiotics. She is currently on vancomycin and Zosyn. Patient had large incontinence of urine due to failure of the female catheter. Lopez catheter will be placed. She has been afebrile. Anticipate discharge to [facility] on Tuesday. Objective - Vital Signs Vital signs: Vital Signs Temp 97.3 F L 09/02/17 07:00 Pulse 78 09/02/17 11:19 Resp 18 09/02/17 07:00 BP 139/93 09/02/17 07:00 Pulse Ox 97 09/02/17 07:00 Intake & Output 09/01/17 09/02/17 09/02/17 18:59 06:59 18:59 Intake Total 720 800 Output Total 500 Balance 720 300 Intake: Oral 720 800 Output: Urine 500 Other: Voiding Method Bedside Commode Bedside Commode # Voids 1 2 - Exam General appearance: cooperative, no acute distress - EENT Eyes: EOMI, PERRLA - Neck Neck: lymphadenopathy - Respiratory Respiratory: bilateral: CTA, negative: diminished, dullness, rales - Cardiovascular Rhythm: regular Heart sounds: normal: S1, S2 Abnormal Heart Sounds: no systolic murmur, no diastolic murmur, no rub, no S3 Gallop, no S4 Gallop, no click, no other - Gastrointestinal General gastrointestinal: normal bowel sounds, soft - Integumentary Integumentary: decreased turgor, normal, ulcer (Right leg 2.5 cm x 2 cm, granulation with mucoid discharge, right lateral right leg, right medial lower leg shows small puncture wound 0.5 x 0.8 cm, depth cannot be estimated left is okay) - Neurologic Neurologic: CNII-XII intact - Labs CBC & Chem 7: 09/02/17 08:42 09/02/17 08:42 Labs: Abnormal Lab Results - Last 24 Hours (Table) 09/01/17 09/01/17 09/02/17 Range/Units 17:13 20:48 07:22 WBC (3.8-10.6) k/uL Neutrophils # (1.3-7.7) k/uL Chloride (98-107) mmol/L Carbon Dioxide (22-30) mmol/L BUN (7-17) mg/dL Glucose (74-99) mg/dL POC Glucose (mg/dL) 247 H 180 H 177 H (75-99) mg/dL 09/02/17 09/02/17 09/02/17 Range/Units 08:42 08:42 12:26 WBC 11.0 H (3.8-10.6) k/uL Neutrophils # 8.0 H (1.3-7.7) k/uL Chloride 94 L (98-107) mmol/L Carbon Dioxide 36 H (22-30) mmol/L BUN 25 H (7-17) mg/dL Glucose 185 H (74-99) mg/dL POC Glucose (mg/dL) 162 H (75-99) mg/dL Microbiology - Last 24 Hours (Table) 08/29/17 17:07 Gram Stain - Final Ankle - Right Wound Culture - Final Staphylococcus aureus Acinetobacter lwoffi grp Enterobacter cloacae 08/29/17 17:07 Blood Culture - Preliminary Blood No Growth after 72 hours Assessment and Plan Plan: 1. Leg Cellulitis, edema lower extremity Recurrent wound to the right lower extremity mid calf with pre-existing lymphedema present prior to admission.Now nonhealing Patient is currently on vancomycin and Zosyn. Consult with Dr. Rivera in place. Dilaudid and Toradol for pain. Resume methadone, Diuretics with Lasix 40 mg every 12 hours with potassium supplementation. Cultures as above. Zaroxolyn added 2. Sarcoidosis. Under the care of Dr KASIE Anderson. Patient is currently on prednisone 80 mg daily and albuterol nebulizer 4 times daily. We'll reconsult Dr. Anderson to possibly recommend treatment options and prednisone decreased to 70 mg daily 3. Chronic hypoxic respiratory failure on home O2 at 3 L nasal cannula. 4. Chronic pain syndrome. Continue methadone 105 mg daily. 5. Diabetes mellitus type 2, initiate metformin 500 mg twice a day 5. GI prophylaxis. Pepcid. 6. DVT prophylaxis. Heparin subcu. 7. Morbid obesity with BMI of 57. Hemoglobin A1c last August 12 was 6.9 8. Mild protein malnutrition, serum albumin 3.2, supplements to be given 9. Chronic hypercarbia, underlying sleep apnea suspected, unsure about current sleep study treatments 10. Chronic long-term use of steroid oral prednisone secondary to pulmonary sarcoid. Consult with Dr. KASIE Anderson. Discharge plan: on Tuesday Impression and plan of care have been directed as dictated by the signing physician. Jeanne Roca nurse practitioner acting as scribe for signing physician.
[2017-09-02 17:35] LABS: Glucose,Whole Blood 202 mg/dL (75-99)
[2017-09-02 20:43] LABS: Glucose,Whole Blood 166 mg/dL (75-99)
[2017-09-03] MEDS: PIPERACILLIN-TAZOBACTAM 3.375 GM in DEXTROSE/WATER 1 50ML.BAG IVPB SCH ×3 (05:05→17:30)
[2017-09-03] MEDS: MORPHINE ORAL SOLN 10 MG/5 ML CUP PO PRN ×4 (06:48→22:07)
[2017-09-03] MEDS: KETOROLAC 30 MG/ML 1 ML VIAL IVP SCH ×2 (06:48→11:20)
[2017-09-03] MEDS: SODIUM CHLORIDE 0.9% 1,000 ML IV SCH ×2 (06:57→09:17)
[2017-09-03 07:31] LABS: Glucose,Whole Blood 116 mg/dL (75-99)
[2017-09-03] MEDS: POTASSIUM CHLORIDE ER 20 MEQ TAB.ER PO SCH ×2 (08:10→21:28)
[2017-09-03] MEDS: FUROSEMIDE 40 MG TAB PO SCH ×2 (08:10→15:49)
[2017-09-03] MEDS: LISINOPRIL 10 MG TAB PO SCH (08:10)
[2017-09-03] MEDS: metFORMIN 500 MG TAB PO SCH ×2 (08:10→17:30)
[2017-09-03] MEDS: predniSONE 20 MG TAB PO SCH (08:10)
[2017-09-03] MEDS: METHADONE 10 MG TAB PO SCH (08:11)
[2017-09-03 08:41] LABS: HCT 36.2 % (34.0-46.0); HGB 11.5 gm/dL (11.4-16.0); MCH 27.4 pg (25.0-35.0); MCHC 31.8 g/dL (31.0-37.0); MCV 86.2 fL (80.0-100.0); Mean Platelet Volume 6.9; Platelet Count 301 k/uL (150-450); RDW 14.5 % (11.5-15.5); WBC 12.1 k/uL (3.8-10.6)
[2017-09-03] MEDS: BUDESONIDE 0.5 MG/2 ML NEBU INHALATION SCH ×2 (09:04→21:08)
[2017-09-03] MEDS: IPRATROPIUM-ALBUTEROL 3 ML NEB INHALATION SCH ×4 (09:04→21:08)
[2017-09-03 10:13] LABS: Band Neutrophils % 1 %; Basophils # (M) 0.12 k/uL (0-0.2); Eosinophils # (M) 0.12 k/uL (0-0.7); Lymphocytes # (M) 3.51 k/uL (1.0-4.8); Metamyelocytes # (M) 0.48 k/uL (0); Metamyelocytes % 4 %; Monocytes # (M) 0.97 k/uL (0-1.0); Myelocytes # (M) 0.48 k/uL (0); Myelocytes % 4 %; Neutrophils % (M) 55 %; Nucleated Red Blood Cells 0 /100 WBC (0-0); Total Cells Counted 200
[2017-09-03 10:15] LABS: Poikilocytosis (M) Present
[2017-09-03] MEDS: VANCOMYCIN 2,250 MG in SODIUM CHLORIDE 0.9% 500 ML IVPB SCH (11:20)
--- NOTE | 2017-09-03 11:44 | P.PN ---
Subjective Progress Note Date: 09/03/17 This is a 47-year-old patient being seen examined and evaluated today on rounds. She is well-known to our services. This patient does have a long- standing history of COPD, sarcoidosis. We will consult. In regards to her high -dose steroids. Currently the patient was admitted to the hospital for right lower extremity cellulitis and a nonhealing wound. Ultrasound of the lower extremities was negative for any DVTs. She has been followed with infectious disease at this time. And they are adjusting her antibiotics. Cultures are pending. The patient currently is on prednisone 80 mg in the outpatient setting daily. The patient has refused lowering the steroids in the past due to fear of exacerbation. The patient states every time it is lowered she ends up in severe state of respiratory distress. The importance of finding a good balance between her prednisone dosing and wound healing has been discussed with the patient at length. The patient is agreeable to reduce her prednisone to 70 mg at this time. We will trial a very slow taper and see how she does. Upon examination the patient is resting up in bed on 3 L of supplemental oxygen via nasal cannula which is what she uses at home as well. She denies any increase in shortness of breath past her baseline at this time. Patient has a previous smoker but quit 40 years ago she did smoke 1-1/2 packs per day for at least 20 years. Patient has previously been tested for AMBER and stated she does not have sleep apnea but did have nighttime desaturations. Patient could possibly benefit from a repeat sleep study. Denies any cough or congestion. She is afebrile, no further complaints. 09/03/2017: Patient seen and examined. Patient is sitting up on the bedside commode. She states that her breathing is a little bit worse today. She states that she feels a little bit tighter today. She states her wounds on her legs look about the same. In the past the patient's insurance has routinely denied her of Remicade and Enbrel for her sarcoidosis. The patient has been referred to several tertiary care centers for further recommendations. The recommendations per the tertiary care centers are for Remicade however again her insurance continues to deny. Objective - Vital Signs Vital signs: Vital Signs Temp 97.8 F 09/03/17 06:24 Pulse 80 09/03/17 09:14 Resp 16 09/03/17 06:24 BP 148/84 09/03/17 06:24 Pulse Ox 96 09/03/17 06:24 Intake & Output 09/02/17 09/03/17 09/03/17 18:59 06:59 18:59 Intake Total 480 Output Total 2750 Balance 480 -2750 Intake: Oral 480 Output: Urine 2750 Other: Voiding Method Indwelling Catheter Indwelling Catheter Indwelling Catheter # Voids 2 1 # Bowel Movements 1 - Exam GENERAL EXAM: Alert, morbidly obese, comfortable in no apparent distress. HEAD: Normocephalic. EYES: Normal reaction of pupils, equal size. NOSE: Clear with pink turbinates. THROAT: No erythema or exudates. NECK: No masses, no JVD. CHEST: No chest wall deformity. LUNGS: Poor air entry bilaterally with no crackles, wheeze, rhonchi or dullness. Bases diminished CVS: S1 and S2 normal with no audible mumurs, regular rhythm. ABDOMEN: No hepatosplenomegaly, normal bowel sounds, no guarding or rigidity. EXTREMITIES: +2 edema noted, pedal pulses palpable. Right lower extremity wound , dressing clean dry and intact CENTRAL NERVOUS SYSTEM: No focal deficits, tone is normal in all 4 extremities. - Labs CBC & Chem 7: 09/03/17 08:07 09/03/17 08:07 Labs: Abnormal Lab Results - Last 24 Hours (Table) 09/02/17 09/02/17 09/02/17 Range/Units 12:26 16:56 20:41 WBC (3.8-10.6) k/uL Metamyelocytes # (Man) (0) k/uL Myelocytes # (Manual) (0) k/uL Sodium (137-145) mmol/L Chloride (98-107) mmol/L Carbon Dioxide (22-30) mmol/L BUN (7-17) mg/dL POC Glucose (mg/dL) 162 H 202 H 166 H (75-99) mg/dL 09/03/17 09/03/17 09/03/17 Range/Units 07:26 08:07 08:07 WBC 12.1 H (3.8-10.6) k/uL Metamyelocytes # (Man) 0.48 H (0) k/uL Myelocytes # (Manual) 0.48 H (0) k/uL Sodium 135 L (137-145) mmol/L Chloride 88 L (98-107) mmol/L Carbon Dioxide 38 H (22-30) mmol/L BUN 32 H (7-17) mg/dL POC Glucose (mg/dL) 116 H (75-99) mg/dL Microbiology - Last 24 Hours (Table) 08/29/17 17:07 Blood Culture - Preliminary Blood No Growth after 96 hours Assessment and Plan Assessment: Cellulitis of right lower extremity with open wounds Failed outpatient treatment of right lower extremity wounds Sarcoidosis and steroid dependent Chronic hypoxic respiratory failure requiring supplemental oxygen at all times Leukocytosis Morbid obesity Chronic pain syndrome Plan Medications have been reviewed and will be continued as ordered. Continue prednisone 70 mg daily. Continue with infectious disease and recommendations. Continue with pulmonary hygiene, coughing and deep breathing exercises, and supportive care. Supplemental oxygen to maintain oxygen saturations of 92% or better. Patient should undergo a repeat sleep study in the outpatient setting if not already completed, prior sleep study 2 years ago showed no evidence of obstructive sleep apnea however the patient has gained significant amount of weight since that time. Initiate and encourage incentive spirometer. Continue nebulizer treatments. GI and DVT prophylaxis. PT/OT. We will continue to monitor labs/results and adjust treatment as necessary. Further recommendations pending.
[2017-09-03 12:25] LABS: Glucose,Whole Blood 187 mg/dL (75-99)
--- NOTE | 2017-09-03 13:53 | P.PN ---
Subjective Progress Note Date: 09/03/17 *Live* [facility] [address], [place] [address] Progress Note - SOAP Patient Name: Holly Erickson Date of : 66 Patient Status: Inpatient Attending Provider: Kaylan Vizcarra Date: 09/03/17 1347 Initialization Date: 09/02/17 12:58 Subjective Progress Note Date: 09/03/17 This is a 47-year-old -Uz[place] female patient of Dr. Dean with past medical history of the left thigh wound that was treated at the wound healing Center under the care of Dr. Hernandez through 02/08/2017, chronic lymphedema, chronic pain on methadone osteoarthritis, spinal stenosis, pulmonary sarcoidosis followed by Dr. KASIE Anderson currently on prednisone 80 mg daily. Patient has been treated for lymphedema in the outpatient setting with daily wraps which was effective but then changed to sequential compression that did not help her edema. Patient was last admitted Back - with a fall 4 weeks prior to that admission secondary to loss of balance and hit her leg with the wheelchair causing a wound and was treated for lymphedema, edema and cellulitis as well as the leg ulcer, Dr. Rivera was in attendance at that time. Patient was negative for deep venous thrombosis. Wound cultures were growing MSSA, from the right leg, and was discharged on cephalexin for additional 7 more days with outpatient follow-up to PCP and Dr. Rivera in his office. Patient did not show up the homecare were not signed, the wound dressing has not been unwrapped since then. Patient also did not see Dr. Rivera in his scheduled appointment In emergency room, patient has had increasing leg swelling, worsened when we evaluated her last time, also a new wound in the medial aspect of the lower leg as she flung her right leg hitting her left toe nail, therefore puncturing it with her own toenail. The wound now measures 2.5 cm x 2 cm the anicteric, with slight mucoid granulation, significant edema, with cultures have been sent, patient was started on Unasyn and vancomycin from the emergency room, consults were with Dr. Rivera, IV Lasix for edema, 08/31: Consult with Dr. Rivera has been placed. Patient is on IV Lasix. She continues to have lower extremity edema. Temperature max yesterday was 100.0. Consult will be added for Dr. KASIE Anderson regarding pulmonary sarcoidosis and large doses of prednisone. Patient states that she is unable to be weaned down on prednisone due to the severity of her disease. 09/01: Patient has been seen by Dr. Rivera and she is currently on Zosyn and vancomycin. Dr. KASIE Anderson has seen the patient and decreased prednisone to 70 mg daily. Patient is currently refusing Lasix IV and she wants a Rodriguez catheter placed. IV Lasix changed to oral and Zaroxolyn has been added. Female catheter to be trialed. Patient continues to feel very very sore in her leg and still swollen. Culture is showing gram-negative bacilli. 09/02: Wound culture is positive for Enterobacter coloration, Acinetobacter lwoffi, and MSSA. Await Dr. Rivera recommendations for antibiotics. She is currently on vancomycin and Zosyn. Patient had large incontinence of urine due to failure of the female catheter. Rodriguez catheter will be placed. She has been afebrile. Anticipate discharge to [facility] on Tuesday. 09/03 Pt continues to have serous drainage from rt leg. Edema has improved. Refusing jacobo wrap but is elevating legs. Has been compliant with lasix since rodriguez inserted. Objective - Vital Signs Last Vital Signs Temp 97.8 F 09/03/17 06:24 Pulse 80 09/03/17 09:14 Resp 16 09/03/17 06:24 BP 148/84 09/03/17 06:24 Pulse Ox 96 09/03/17 06:24 Allergies No Known Allergies Allergy (Verified 08/29/17 19:01) Active Medications Acetaminophen (Tylenol Tab) 650 mg PO Q6HR PRN PRN Reason: Mild Pain or Fever > 100.5 Albuterol/Ipratropium (Duoneb 0.5 Mg-3 Mg/3 Ml Soln) 3 ml INHALATION RT-QID [facility] Last Admin: 09/03/17 12:19 Dose: Not Given Budesonide (Pulmicort) 0.5 mg INHALATION RT-BID [facility] Last Admin: 09/03/17 09:04 Dose: 0.5 mg Furosemide (Lasix) 40 mg PO BID@0900,1600 [facility] Last Admin: 09/03/17 08:10 Dose: 40 mg Sodium Chloride (Saline 0.9%) 1,000 mls @ 100 mls/hr IV .Q10H [facility] Last Admin: 09/03/17 09:17 Dose: 100 mls/hr Vancomycin HCl 2,250 mg/ (Sodium Chloride) 500 mls @ 167 mls/hr IVPB Q12H [facility] Last Admin: 09/03/17 11:20 Dose: 167 mls/hr Piperacillin/Tazobactam/ (Dextrose 3.375 gm/ IV Solution) 50 mls @ 12.5 mls/hr IVPB Q8H [facility] Last Admin: 09/03/17 09:17 Dose: 12.5 mls/hr Ibuprofen (Motrin) 600 mg PO Q6H PRN PRN Reason: Moderate Pain and/or Fever Lisinopril (Zestril) 10 mg PO DAILY [facility] Last Admin: 09/03/17 08:10 Dose: 10 mg Metformin HCl (Glucophage) 500 mg PO BID-W/MEALS [facility] Last Admin: 09/03/17 08:10 Dose: 500 mg Methadone HCl (Dolophine) 105 mg PO DAILY [facility] Last Admin: 09/03/17 08:11 Dose: 105 mg Metolazone (Zaroxolyn) 2.5 mg PO MOWEFR [facility] Last Admin: 09/02/17 08:16 Dose: 2.5 mg Morphine Sulfate (Morphine Oral Kylee 2mg/Ml) 12 mg PO Q4HR PRN PRN Reason: Severe Pain Last Admin: 09/03/17 11:21 Dose: 12 mg Naloxone HCl (Narcan) 0.2 mg IV Q2M PRN PRN Reason: Opioid Reversal Ondansetron HCl (Zofran) 4 mg IVP Q8HR PRN PRN Reason: Nausea And Vomiting Potassium Chloride (K-Dur 20) 20 meq PO BID [facility] Last Admin: 09/03/17 08:10 Dose: 20 meq Prednisone () 70 mg PO DAILY [facility] Last Admin: 09/03/17 08:10 Dose: 70 mg Intake & Output 09/03/17 09/04/17 06:59 06:59 Intake Total 480 Output Total 2750 Balance -2270 Lab Tests 09/02/17 09/02/17 09/03/17 16:56 20:41 07:26 WBC RBC Hgb Hct MCV MCH MCHC RDW Plt Count Neutrophils % (Manual) Band Neutrophils % Lymphocytes % (Manual) Monocytes % (Manual) Eosinophils % (Manual) Basophils % (Manual) Metamyelocytes % Myelocytes % Neutrophils # (Manual) Lymphocytes # (Manual) Monocytes # (Manual) Eosinophils # (Manual) Basophils # (Manual) Metamyelocytes # (Man) Myelocytes # (Manual) Nucleated RBCs Manual Slide Review Poikilocytosis (manual Sodium Potassium Chloride Carbon Dioxide Anion Gap BUN Creatinine Est GFR (CKD-EPI)AfAm Est GFR (CKD-EPI)NonAf Glucose POC Glucose (mg/dL) 202 H 166 H 116 H POC Glu Director Of Coding ID Becky Meadows Jeanne, VondaYudith Daily Calcium 09/03/17 09/03/17 09/03/17 08:07 08:07 12:23 WBC 12.1 H RBC 4.20 Hgb 11.5 Hct 36.2 MCV 86.2 MCH 27.4 MCHC 31.8 RDW 14.5 Plt Count 301 Neutrophils % (Manual) 55 Band Neutrophils % 1 Lymphocytes % (Manual) 29 Monocytes % (Manual) 8 Eosinophils % (Manual) 1 Basophils % (Manual) 1 Metamyelocytes % 4 Myelocytes % 4 Neutrophils # (Manual) 6.70 Lymphocytes # (Manual) 3.51 Monocytes # (Manual) 0.97 Eosinophils # (Manual) 0.12 Basophils # (Manual) 0.12 Metamyelocytes # (Man) 0.48 H Myelocytes # (Manual) 0.48 H Nucleated RBCs 0 Manual Slide Review Performed Poikilocytosis (manual Present Sodium 135 L Potassium 4.0 Chloride 88 L Carbon Dioxide 38 H Anion Gap 9 BUN 32 H Creatinine 0.90 Est GFR (CKD-EPI)AfAm 87 Est GFR (CKD-EPI)NonAf 76 Glucose 92 POC Glucose (mg/dL) 187 H POC Glu Director Of Coding ID Yudith Bautista Calcium 10.0 Microbiology 08/29/17 17:07 Blood Blood Culture - Preliminary No Growth after 96 hours - Exam General appearance: cooperative, no acute distress - EENT Eyes: EOMI, PERRLA - Neck Neck: lymphadenopathy - Respiratory Respiratory: bilateral: CTA, negative: diminished, dullness, no rales - Cardiovascular Rhythm: regular Heart sounds: normal: S1, S2 Abnormal Heart Sounds: no systolic murmur, no diastolic murmur, no rub, no S3 Gallop, no S4 Gallop, no click, no other - Gastrointestinal General gastrointestinal: normal bowel sounds, soft, obese - Integumentary Integumentary: normal, ulcer (Right leg 2.5 cm x 2 cm, granulation with mucoid discharge, right lateral right leg, right medial lower leg shows small puncture wound 0.5 x 0.8 cm, depth cannot be estimated left is okay) rt lower extremity with serous drainage. 2-3+edema vale. - Neurologic Neurologic: CNII-XII intact - Labs CBC & Chem 7: 09/02/17 08:42 09/02/17 08:42 Labs: Abnormal Lab Results - Last 24 Hours (Table) 09/01/17 09/01/17 09/02/17 Range/Units 17:13 20:48 07:22 WBC (3.8-10.6) k/uL Neutrophils # (1.3-7.7) k/uL Chloride (98-107) mmol/L Carbon Dioxide (22-30) mmol/L BUN (7-17) mg/dL Glucose (74-99) mg/dL POC Glucose (mg/dL) 247 H 180 H 177 H (75-99) mg/dL 09/02/17 09/02/17 09/02/17 Range/Units 08:42 08:42 12:26 WBC 11.0 H (3.8-10.6) k/uL Neutrophils # 8.0 H (1.3-7.7) k/uL Chloride 94 L (98-107) mmol/L Carbon Dioxide 36 H (22-30) mmol/L BUN 25 H (7-17) mg/dL Glucose 185 H (74-99) mg/dL POC Glucose (mg/dL) 162 H (75-99) mg/dL Microbiology - Last 24 Hours (Table) 08/29/17 17:07 Gram Stain - Final Ankle - Right Wound Culture - Final Staphylococcus aureus Acinetobacter lwoffi grp Enterobacter cloacae 08/29/17 17:07 Blood Culture - Preliminary Blood No Growth after 72 hours Assessment and Plan Plan: 1. Leg Cellulitis, edema lower extremity Recurrent wound to the right lower extremity mid calf with pre-existing lymphedema present prior to admission. Now healing Patient is currently on vancomycin and Zosyn. Consult with Dr. Rivera in place. Dilaudid and Toradol for pain. Try oral pain meds if tolerable. Resume methadone, Diuretics with Lasix 40 mg every 12 hours with potassium supplementation. Cultures as above. Zaroxolyn added. 2. Sarcoidosis. Under the care of Dr KASIE Anderson. Patient is currently on prednisone 80 mg daily and albuterol nebulizer 4 times daily. We'll reconsult Dr. Anderson to possibly recommend treatment options and prednisone decreased to 70 mg daily 3. Chronic hypoxic respiratory failure on home O2 at 3 L nasal cannula. 4. Chronic pain syndrome. Continue methadone 105 mg daily. 5. Diabetes mellitus type 2, initiate metformin 500 mg twice a day 5. GI prophylaxis. Pepcid. 6. DVT prophylaxis. Heparin subcu. 7. Morbid obesity with BMI of 57. Hemoglobin A1c last August 12 was 6.9 8. Mild protein malnutrition, serum albumin 3.2, supplements to be given 9. Chronic hypercarbia, underlying sleep apnea suspected, unsure about current sleep study treatments 10. Chronic long-term use of steroid oral prednisone secondary to pulmonary sarcoid. Consult with Dr. KASIE Anderson. 11. Noncompliance with treatment. Pt continues to decline compression to lower extremities. She was also refusing lasix until rodriguez was inserted. Discharge plan: [facility] on Tuesday Alejandra Lyle ANP- Dictated for Dr. Macarena Ann MD. Impression and plan of care have been directed as dictated by the signing physician. Objective - Vital Signs Vital signs: Vital Signs Temp 97.8 F 09/03/17 06:24 Pulse 80 09/03/17 09:14 Resp 16 09/03/17 06:24 BP 148/84 09/03/17 06:24 Pulse Ox 96 09/03/17 06:24 Intake & Output 09/02/17 09/03/17 09/03/17 18:59 06:59 18:59 Intake Total 480 Output Total 2750 Balance 480 -2750 Intake: Oral 480 Output: Urine 2750 Other: Voiding Method Indwelling Catheter Indwelling Catheter Indwelling Catheter # Voids 2 1 # Bowel Movements 1 - Labs CBC & Chem 7: 09/03/17 08:07 09/03/17 08:07 Labs: Abnormal Lab Results - Last 24 Hours (Table) 09/02/17 09/02/17 09/03/17 Range/Units 16:56 20:41 07:26 WBC (3.8-10.6) k/uL Metamyelocytes # (Man) (0) k/uL Myelocytes # (Manual) (0) k/uL Sodium (137-145) mmol/L Chloride (98-107) mmol/L Carbon Dioxide (22-30) mmol/L BUN (7-17) mg/dL POC Glucose (mg/dL) 202 H 166 H 116 H (75-99) mg/dL 09/03/17 09/03/17 09/03/17 Range/Units 08:07 08:07 12:23 WBC 12.1 H (3.8-10.6) k/uL Metamyelocytes # (Man) 0.48 H (0) k/uL Myelocytes # (Manual) 0.48 H (0) k/uL Sodium 135 L (137-145) mmol/L Chloride 88 L (98-107) mmol/L Carbon Dioxide 38 H (22-30) mmol/L BUN 32 H (7-17) mg/dL POC Glucose (mg/dL) 187 H (75-99) mg/dL Microbiology - Last 24 Hours (Table) 08/29/17 17:07 Blood Culture - Preliminary Blood No Growth after 96 hours
[2017-09-03 17:27] LABS: Glucose,Whole Blood 235 mg/dL (75-99)
[2017-09-03 20:55] LABS: Glucose,Whole Blood 186 mg/dL (75-99)
[2017-09-03] MEDS: IBUPROFEN 600 MG TAB PO PRN (21:30)
[2017-09-04] MEDS: VANCOMYCIN 2,250 MG in SODIUM CHLORIDE 0.9% 500 ML IVPB SCH ×3 (00:33→23:20)
[2017-09-04] MEDS: SODIUM CHLORIDE 0.9% 1,000 ML IV SCH ×3 (00:35→18:09)
[2017-09-04] MEDS: MORPHINE ORAL SOLN 10 MG/5 ML CUP PO PRN ×4 (02:40→20:13)
[2017-09-04] MEDS: PIPERACILLIN-TAZOBACTAM 3.375 GM in DEXTROSE/WATER 1 50ML.BAG IVPB SCH ×3 (02:40→18:08)
[2017-09-04] MEDS: IBUPROFEN 600 MG TAB PO PRN (05:28)
[2017-09-04 07:52] LABS: Glucose,Whole Blood 156 mg/dL (75-99)
[2017-09-04] MEDS: BUDESONIDE 0.5 MG/2 ML NEBU INHALATION SCH ×2 (08:33→20:23)
[2017-09-04] MEDS: IPRATROPIUM-ALBUTEROL 3 ML NEB INHALATION SCH ×4 (08:33→20:25)
[2017-09-04] MEDS: FUROSEMIDE 40 MG TAB PO SCH ×2 (09:02→15:02)
[2017-09-04] MEDS: metFORMIN 500 MG TAB PO SCH ×2 (09:02→18:08)
[2017-09-04] MEDS: POTASSIUM CHLORIDE ER 20 MEQ TAB.ER PO SCH ×2 (09:03→20:13)
[2017-09-04] MEDS: predniSONE 20 MG TAB PO SCH (09:03)
[2017-09-04] MEDS: LISINOPRIL 10 MG TAB PO SCH (09:05)
[2017-09-04] MEDS: METHADONE 10 MG TAB PO SCH (09:05)
[2017-09-04] MEDS ORDERED: VANCOMYCIN TROUGH DUE 1 EACH MISC MISCELLANE ONE (11:00)
[2017-09-04 11:50] LABS: HCT 37.1 % (34.0-46.0); HGB 12.6 gm/dL (11.4-16.0); MCH 28.6 pg (25.0-35.0); MCHC 33.9 g/dL (31.0-37.0); MCV 84.4 fL (80.0-100.0); Mean Platelet Volume 6.8; Platelet Count 303 k/uL (150-450); RDW 14.1 % (11.5-15.5); WBC 13.1 k/uL (3.8-10.6)
--- NOTE | 2017-09-04 11:56 | P.PN ---
Subjective Progress Note Date: 09/04/17 This is a 47-year-old patient being seen examined and evaluated today on rounds. She is well-known to our services. This patient does have a long- standing history of COPD, sarcoidosis. We will consult. In regards to her high -dose steroids. Currently the patient was admitted to the hospital for right lower extremity cellulitis and a nonhealing wound. Ultrasound of the lower extremities was negative for any DVTs. She has been followed with infectious disease at this time. And they are adjusting her antibiotics. Cultures are pending. The patient currently is on prednisone 80 mg in the outpatient setting daily. The patient has refused lowering the steroids in the past due to fear of exacerbation. The patient states every time it is lowered she ends up in severe state of respiratory distress. The importance of finding a good balance between her prednisone dosing and wound healing has been discussed with the patient at length. The patient is agreeable to reduce her prednisone to 70 mg at this time. We will trial a very slow taper and see how she does. Upon examination the patient is resting up in bed on 3 L of supplemental oxygen via nasal cannula which is what she uses at home as well. She denies any increase in shortness of breath past her baseline at this time. Patient has a previous smoker but quit 40 years ago she did smoke 1-1/2 packs per day for at least 20 years. Patient has previously been tested for AMBER and stated she does not have sleep apnea but did have nighttime desaturations. Patient could possibly benefit from a repeat sleep study. Denies any cough or congestion. She is afebrile, no further complaints. 09/03/2017: Patient seen and examined. Patient is sitting up on the bedside commode. She states that her breathing is a little bit worse today. She states that she feels a little bit tighter today. She states her wounds on her legs look about the same. In the past the patient's insurance has routinely denied her of Remicade and Enbrel for her sarcoidosis. The patient has been referred to several tertiary care centers for further recommendations. The recommendations per the tertiary care centers are for Remicade however again her insurance continues to deny. 09/04/2017: Patient seen and examined. Patient is sitting up in the chair. She states she is feeling good today except that she has leg pain. She said the Toradol did help but it was stopped because she received 5 days of doses. She is asking for something else for pain. Objective - Vital Signs Vital signs: Vital Signs Temp 97.7 F 09/04/17 08:30 Pulse 80 09/04/17 08:58 Resp 16 09/04/17 08:30 BP 133/71 09/04/17 08:30 Pulse Ox 96 09/04/17 08:30 Intake & Output 09/03/17 09/04/17 09/04/17 18:59 06:59 18:59 Output Total 3750 1100 Balance -3750 -1100 Output: Urine 3750 1100 Other: Voiding Method Indwelling Catheter Indwelling Catheter Indwelling Catheter # Bowel Movements 1 1 - Exam GENERAL EXAM: Alert, morbidly obese, comfortable in no apparent distress. HEAD: Normocephalic. EYES: Normal reaction of pupils, equal size. NOSE: Clear with pink turbinates. THROAT: No erythema or exudates. NECK: No masses, no JVD. CHEST: No chest wall deformity. LUNGS: Poor air entry bilaterally with no crackles, wheeze, rhonchi or dullness. Bases diminished CVS: S1 and S2 normal with no audible mumurs, regular rhythm. ABDOMEN: No hepatosplenomegaly, normal bowel sounds, no guarding or rigidity. EXTREMITIES: +2 edema noted, pedal pulses palpable. Right lower extremity wound , dressing clean dry and intact CENTRAL NERVOUS SYSTEM: No focal deficits, tone is normal in all 4 extremities. - Labs CBC & Chem 7: 09/04/17 11:23 09/03/17 08:07 Labs: Abnormal Lab Results - Last 24 Hours (Table) 09/03/17 09/03/17 09/03/17 Range/Units 12:23 17:24 20:49 WBC (3.8-10.6) k/uL POC Glucose (mg/dL) 187 H 235 H 186 H (75-99) mg/dL 09/04/17 09/04/17 Range/Units 07:39 11:23 WBC 13.1 H (3.8-10.6) k/uL POC Glucose (mg/dL) 156 H (75-99) mg/dL Microbiology - Last 24 Hours (Table) 08/29/17 17:07 Blood Culture - Preliminary Blood No Growth after 120 hours Assessment and Plan Assessment: Cellulitis of right lower extremity with open wounds Failed outpatient treatment of right lower extremity wounds Sarcoidosis and steroid dependent Chronic hypoxic respiratory failure requiring supplemental oxygen at all times Leukocytosis Morbid obesity Chronic pain syndrome Plan Medications have been reviewed and will be continued as ordered. Continue prednisone 70 mg daily. Continue with infectious disease and recommendations. Continue with pulmonary hygiene, coughing and deep breathing exercises, and supportive care. Supplemental oxygen to maintain oxygen saturations of 92% or better. Patient should undergo a repeat sleep study in the outpatient setting if not already completed, prior sleep study 2 years ago showed no evidence of obstructive sleep apnea however the patient has gained significant amount of weight since that time. Initiate and encourage incentive spirometer. Continue nebulizer treatments. GI and DVT prophylaxis. PT/OT. We will continue to monitor labs/results and adjust treatment as necessary. Further recommendations pending. Add [facility]. Continue Prednisone at same dose.
[2017-09-04 11:58] LABS: Glucose,Whole Blood 169 mg/dL (75-99)
[2017-09-04 12:07] LABS: Calcium 10.2 mg/dL (8.4-10.2); Potassium 3.9 mmol/L (3.5-5.1)
[2017-09-04 12:19] LABS: Band Neutrophils % 1 %; Eosinophils # (M) 0.13 k/uL (0-0.7); Lymphocytes # (M) 3.54 k/uL (1.0-4.8); Metamyelocytes # (M) 0.52 k/uL (0); Metamyelocytes % 4 %; Monocytes # (M) 0.92 k/uL (0-1.0); Myelocytes # (M) 0.39 k/uL (0); Myelocytes % 3 %; Neutrophils % (M) 59 %; Nucleated Red Blood Cells 0 /100 WBC (0-0); Total Cells Counted 200; Toxic Granulation Present
--- NOTE | 2017-09-04 13:44 | P.PN ---
Subjective Progress Note Date: 09/04/17 This is a 47-year-old -Citizen Of [place] female patient of Dr. Dean with past medical history of the left thigh wound that was treated at the wound healing Center under the care of Dr. Hernandez through 02/08/2017, chronic lymphedema, chronic pain on methadone osteoarthritis, spinal stenosis, pulmonary sarcoidosis followed by Dr. KASIE Anderson currently on prednisone 80 mg daily. Patient has been treated for lymphedema in the outpatient setting with daily wraps which was effective but then changed to sequential compression that did not help her edema. Patient was last admitted Back - with a fall 4 weeks prior to that admission secondary to loss of balance and hit her leg with the wheelchair causing a wound and was treated for lymphedema, edema and cellulitis as well as the leg ulcer, Dr. Rivera was in attendance at that time. Patient was negative for deep venous thrombosis. Wound cultures were growing MSSA, from the right leg, and was discharged on cephalexin for additional 7 more days with outpatient follow-up to PCP and Dr. Rivera in his office. Patient did not show up the homecare were not signed, the wound dressing has not been unwrapped since then. Patient also did not see Dr. Rivera in his scheduled appointment In emergency room, patient has had increasing leg swelling, worsened when we evaluated her last time, also a new wound in the medial aspect of the lower leg as she flung her right leg hitting her left toe nail, therefore puncturing it with her own toenail. The wound now measures 2.5 cm x 2 cm the anicteric, with slight mucoid granulation, significant edema, with cultures have been sent, patient was started on Unasyn and vancomycin from the emergency room, consults were with Dr. Rivera, IV Lasix for edema, 08/31: Consult with Dr. Rivera has been placed. Patient is on IV Lasix. She continues to have lower extremity edema. Temperature max yesterday was 100.0. Consult will be added for Dr. KASIE Anderson regarding pulmonary sarcoidosis and large doses of prednisone. Patient states that she is unable to be weaned down on prednisone due to the severity of her disease. 09/01: Patient has been seen by Dr. Rivera and she is currently on Zosyn and vancomycin. Dr. KASIE Anderson has seen the patient and decreased prednisone to 70 mg daily. Patient is currently refusing Lasix IV and she wants a Rodriguez catheter placed. IV Lasix changed to oral and Zaroxolyn has been added. Female catheter to be trialed. Patient continues to feel very very sore in her leg and still swollen. Culture is showing gram-negative bacilli. 09/02: Wound culture is positive for Enterobacter coloration, Acinetobacter lwoffi, and MSSA. Await Dr. Rivera recommendations for antibiotics. She is currently on vancomycin and Zosyn. Patient had large incontinence of urine due to failure of the female catheter. Rodriguez catheter will be placed. She has been afebrile. Anticipate discharge to [facility] on Tuesday. 09/03 Pt continues to have serous drainage from rt leg. Edema has improved. Refusing gurwinder wrap but is elevating legs. Has been compliant with lasix since rodriguez inserted. 09/04 patient continues to have serous drainage from the right leg. I did encourage the patient to allow the staff to wrap her leg with Gurwinder wrap even if it's for one hour at a time. We are going to place SCDs to help with drainage. The patient states she is having increased discomfort since the Toradol was discontinued and we will reorder this for her comfort. He has been encouraged to get out of bed and ambulate she has been declining. Objective - Vital Signs Vital signs: Vital Signs Temp 97.7 F 09/04/17 08:30 Pulse 86 09/04/17 12:39 Resp 16 09/04/17 08:30 BP 133/71 09/04/17 08:30 Pulse Ox 96 09/04/17 08:30 Intake & Output 09/03/17 09/04/17 09/04/17 18:59 06:59 18:59 Output Total 3750 1100 Balance -3750 -1100 Output: Urine 3750 1100 Other: Voiding Method Indwelling Catheter Indwelling Catheter Indwelling Catheter # Bowel Movements 1 1 - Constitutional General appearance: Present: obese - EENT Eyes: Present: normal appearance ENT: Present: normal oropharynx Ears: bilateral: normal - Neck Neck: Present: normal ROM Thyroid: bilateral: normal size - Respiratory Respiratory: bilateral: diminished - Cardiovascular Details: Distant heart sounds Rhythm: regular Heart sounds: normal: S1, S2 - Gastrointestinal General gastrointestinal: Present: normal bowel sounds - Integumentary Integumentary: Present: normal turgor - Neurologic Neurologic: Present: CNII-XII intact - Psychiatric Psychiatric: Present: A&O x's 3, appropriate affect, intact judgment & insight - Labs CBC & Chem 7: 09/04/17 11:23 09/04/17 11:23 Labs: Abnormal Lab Results - Last 24 Hours (Table) 09/03/17 09/03/17 09/04/17 Range/Units 17:24 20:49 07:39 WBC (3.8-10.6) k/uL Neutrophils # (Manual) (1.3-7.7) k/uL Metamyelocytes # (Man) (0) k/uL Myelocytes # (Manual) (0) k/uL Sodium (137-145) mmol/L Chloride (98-107) mmol/L Carbon Dioxide (22-30) mmol/L BUN (7-17) mg/dL Glucose (74-99) mg/dL POC Glucose (mg/dL) 235 H 186 H 156 H (75-99) mg/dL 09/04/17 09/04/17 09/04/17 Range/Units 11:23 11:23 11:56 WBC 13.1 H (3.8-10.6) k/uL Neutrophils # (Manual) 7.80 H (1.3-7.7) k/uL Metamyelocytes # (Man) 0.52 H (0) k/uL Myelocytes # (Manual) 0.39 H (0) k/uL Sodium 136 L (137-145) mmol/L Chloride 87 L (98-107) mmol/L Carbon Dioxide 41 H* (22-30) mmol/L BUN 34 H (7-17) mg/dL Glucose 146 H (74-99) mg/dL POC Glucose (mg/dL) 169 H (75-99) mg/dL Microbiology - Last 24 Hours (Table) 08/29/17 17:07 Blood Culture - Preliminary Blood No Growth after 120 hours Assessment and Plan Assessment: 1. Leg Cellulitis, edema lower extremity Recurrent wound to the right lower extremity mid calf with pre-existing lymphedema present prior to admission. Now healing Patient is currently on vancomycin and Zosyn. Consult with Dr. Rivera in place. Dilaudid and Toradol for pain. Try oral pain meds if tolerable. Continue methadone, Diuretics with Lasix 40 mg every 12 hours with potassium supplementation. Cultures as above. Zaroxolyn added. Wrap bilateral lower extremities as tolerated. Apply SCDs bilaterally. 2. Sarcoidosis. Under the care of Dr KASIE Anderson. Patient is currently on prednisone 80 mg daily and albuterol nebulizer 4 times daily. We'll reconsult Dr. Anderson to possibly recommend treatment options and prednisone decreased to 70 mg daily 3. Chronic hypoxic respiratory failure on home O2 at 3 L nasal cannula. 4. Chronic pain syndrome. Continue methadone 105 mg daily. 5. Diabetes mellitus type 2, initiate metformin 500 mg twice a day 5. GI prophylaxis. Pepcid. 6. DVT prophylaxis. Heparin subcu. 7. Morbid obesity with BMI of 57. Hemoglobin A1c last August 12 was 6.9 8. Mild protein malnutrition, serum albumin 3.2, supplements to be given 9. Chronic hypercarbia, underlying sleep apnea suspected, unsure about current sleep study treatments 10. Chronic long-term use of steroid oral prednisone secondary to pulmonary sarcoid. Consult with Dr. KASIE Anderson. 11. Noncompliance with treatment. Pt continues to decline compression to lower extremities. She was also refusing lasix until rodriguez was inserted. Encouraged to comply with medical treatment. Discharge plan: [facility] on Tuesday Alejandra Lyle ANP- Dictated for Dr. Macarena Ann MD. Impression and plan of care have been directed as dictated by the signing physician.
[2017-09-04] MEDS ORDERED: KETOROLAC 30 MG/ML 1 ML VIAL IVP SCH (14:00)
[2017-09-04] MEDS ORDERED: traMADol 50 MG TAB PO PRN ×3 (14:42→14:44)
[2017-09-04] MEDS: HYDROcodone/APAP 5-325MG 1 EACH TAB PO PRN ×2 (15:46→21:50)
[2017-09-04 17:17] LABS: Glucose,Whole Blood 269 mg/dL (75-99)
[2017-09-04 20:40] LABS: Glucose,Whole Blood 155 mg/dL (75-99)
[2017-09-05] MEDS: PIPERACILLIN-TAZOBACTAM 3.375 GM in DEXTROSE/WATER 1 50ML.BAG IVPB SCH ×3 (02:22→18:07)
[2017-09-05] MEDS: SODIUM CHLORIDE 0.9% 1,000 ML IV SCH ×3 (05:26→23:25)
[2017-09-05] MEDS: MORPHINE ORAL SOLN 10 MG/5 ML CUP PO PRN ×3 (05:55→19:33)
[2017-09-05] MEDS: HYDROcodone/APAP 5-325MG 1 EACH TAB PO PRN ×3 (07:02→21:51)
[2017-09-05] MEDS: IPRATROPIUM-ALBUTEROL 3 ML NEB INHALATION SCH ×4 (07:03→20:02)
[2017-09-05] MEDS: BUDESONIDE 0.5 MG/2 ML NEBU INHALATION SCH ×2 (07:04→20:02)
[2017-09-05 07:47] LABS: Glucose,Whole Blood 142 mg/dL (75-99)
[2017-09-05] MEDS: POTASSIUM CHLORIDE ER 20 MEQ TAB.ER PO SCH ×2 (08:33→21:46)
[2017-09-05] MEDS: LISINOPRIL 10 MG TAB PO SCH (08:33)
[2017-09-05] MEDS: metFORMIN 500 MG TAB PO SCH ×2 (08:33→18:07)
[2017-09-05] MEDS: FUROSEMIDE 40 MG TAB PO SCH (08:33)
[2017-09-05] MEDS: predniSONE 20 MG TAB PO SCH (08:33)
[2017-09-05] MEDS: METHADONE 10 MG TAB PO SCH (08:40)
[2017-09-05 09:16] LABS: HCT 38.7 % (34.0-46.0); HGB 12.5 gm/dL (11.4-16.0); MCH 27.9 pg (25.0-35.0); MCHC 32.2 g/dL (31.0-37.0); MCV 86.5 fL (80.0-100.0); Mean Platelet Volume 6.8; Platelet Count 340 k/uL (150-450); RBC 4.48 m/uL (3.80-5.40); RDW 14.4 % (11.5-15.5); WBC 17.1 k/uL (3.8-10.6)
[2017-09-05 09:29] LABS: Potassium 3.5 mmol/L (3.5-5.1)
[2017-09-05] MEDS: METOLAZONE 2.5 MG TAB PO SCH (09:51)
--- NOTE | 2017-09-05 10:08 | P.PN ---
Subjective Progress Note Date: 09/05/17 HPI: This is a 47-year-old patient being seen examined and evaluated today on rounds. She is well-known to our services. This patient does have a long- standing history of COPD, sarcoidosis. We will consult. In regards to her high -dose steroids. Currently the patient was admitted to the hospital for right lower extremity cellulitis and a nonhealing wound. Ultrasound of the lower extremities was negative for any DVTs. She has been followed with infectious disease at this time. And they are adjusting her antibiotics. Cultures are pending. The patient currently is on prednisone 80 mg in the outpatient setting daily. The patient has refused lowering the steroids in the past due to fear of exacerbation. The patient states every time it is lowered she ends up in severe state of respiratory distress. The importance of finding a good balance between her prednisone dosing and wound healing has been discussed with the patient at length. The patient is agreeable to reduce her prednisone to 70 mg at this time. We will trial a very slow taper and see how she does. Upon examination the patient is resting up in bed on 3 L of supplemental oxygen via nasal cannula which is what she uses at home as well. She denies any increase in shortness of breath past her baseline at this time. Patient has a previous smoker but quit 40 years ago she did smoke 1-1/2 packs per day for at least 20 years. Patient has previously been tested for AMBER and stated she does not have sleep apnea but did have nighttime desaturations. Patient could possibly benefit from a repeat sleep study. Denies any cough or congestion. She is afebrile, no further complaints. 09/03/2017: Patient seen and examined. Patient is sitting up on the bedside commode. She states that her breathing is a little bit worse today. She states that she feels a little bit tighter today. She states her wounds on her legs look about the same. In the past the patient's insurance has routinely denied her of Remicade and Enbrel for her sarcoidosis. The patient has been referred to several tertiary care centers for further recommendations. The recommendations per the tertiary care centers are for Remicade however again her insurance continues to deny. 09/04/2017: Patient seen and examined. Patient is sitting up in the chair. She states she is feeling good today except that she has leg pain. She said the Toradol did help but it was stopped because she received 5 days of doses. She is asking for something else for pain. 09/05/17- patient being seen examined and evaluated today on rounds. She is resting up in bed on 3 L of supplemental oxygen via nasal cannula which is what she wears home as well. She is afebrile, no overnight events. No further complaints. Objective - Vital Signs Vital signs: Vital Signs Temp 98.3 F 09/05/17 07:00 Pulse 84 09/05/17 07:20 Resp 20 09/05/17 07:00 BP 144/81 09/05/17 07:00 Pulse Ox 100 09/05/17 07:06 Intake & Output 09/04/17 09/05/17 09/05/17 18:59 06:59 18:59 Intake Total 550 Output Total 3100 Balance -3100 550 Intake: Intake, IV Titration 550 Amount Piperacillin-Tazobactam 3 50 .375 gm In Dextrose/Water 1 50ml.bag @ 12.5 mls/hr IVPB Q8H [facility] Rx#: [id number] Vancomycin 2,250 mg In 500 Sodium Chloride 0.9% 500 ml @ 167 mls/hr IVPB Q24H [facility] Rx#:[id number] Output: Urine 3100 Other: Voiding Method Indwelling Catheter Indwelling Catheter # Voids 1 - Exam GENERAL EXAM: Alert, morbidly obese, comfortable in no apparent distress. HEAD: Normocephalic. EYES: Normal reaction of pupils, equal size. NOSE: Clear with pink turbinates. THROAT: No erythema or exudates. NECK: No masses, no JVD. CHEST: No chest wall deformity. LUNGS: Poor air entry bilaterally with no crackles, wheeze, rhonchi or dullness. Bases diminished CVS: S1 and S2 normal with no audible mumurs, regular rhythm. ABDOMEN: No hepatosplenomegaly, normal bowel sounds, no guarding or rigidity. EXTREMITIES: +2 edema noted, pedal pulses palpable. Right lower extremity wound , dressing clean dry and intact CENTRAL NERVOUS SYSTEM: No focal deficits, tone is normal in all 4 extremities. - Labs CBC & Chem 7: 09/05/17 08:38 09/05/17 08:38 Labs: Abnormal Lab Results - Last 24 Hours (Table) 09/04/17 09/04/17 09/04/17 Range/Units 11:23 11:23 11:56 WBC 13.1 H (3.8-10.6) k/uL Neutrophils # (Manual) 7.80 H (1.3-7.7) k/uL Metamyelocytes # (Man) 0.52 H (0) k/uL Myelocytes # (Manual) 0.39 H (0) k/uL Sodium 136 L (137-145) mmol/L Chloride 87 L (98-107) mmol/L Carbon Dioxide 41 H* (22-30) mmol/L BUN 34 H (7-17) mg/dL Creatinine (0.52-1.04) mg/dL Glucose 146 H (74-99) mg/dL POC Glucose (mg/dL) 169 H (75-99) mg/dL 09/04/17 09/04/17 09/05/17 Range/Units 16:52 20:39 06:58 WBC (3.8-10.6) k/uL Neutrophils # (Manual) (1.3-7.7) k/uL Metamyelocytes # (Man) (0) k/uL Myelocytes # (Manual) (0) k/uL Sodium (137-145) mmol/L Chloride (98-107) mmol/L Carbon Dioxide (22-30) mmol/L BUN (7-17) mg/dL Creatinine (0.52-1.04) mg/dL Glucose (74-99) mg/dL POC Glucose (mg/dL) 269 H 155 H 142 H (75-99) mg/dL 09/05/17 09/05/17 Range/Units 08:38 08:38 WBC 17.1 H (3.8-10.6) k/uL Neutrophils # (Manual) (1.3-7.7) k/uL Metamyelocytes # (Man) (0) k/uL Myelocytes # (Manual) (0) k/uL Sodium (137-145) mmol/L Chloride 88 L (98-107) mmol/L Carbon Dioxide 42 H* (22-30) mmol/L BUN 32 H (7-17) mg/dL Creatinine 1.10 H (0.52-1.04) mg/dL Glucose 137 H (74-99) mg/dL POC Glucose (mg/dL) (75-99) mg/dL Microbiology - Last 24 Hours (Table) 08/29/17 17:07 Blood Culture - Final Blood No Growth after 144 hours Assessment and Plan Assessment: Assessment Cellulitis of right lower extremity with open wounds Failed outpatient treatment of right lower extremity wounds Sarcoidosis and steroid dependent Chronic hypoxic respiratory failure requiring supplemental oxygen at all times Leukocytosis Morbid obesity Chronic pain syndrome Suspect AMBER, and/or obesity hypoventilation syndrome Plan Medications have been reviewed and will be continued as ordered. Continue prednisone 70 mg daily. [place] for pain management. Continue with infectious disease and recommendations. Patient waiting for recommendations for antibiotics and possibility of PICC line if needed per infectious disease. Continue with pulmonary hygiene, coughing and deep breathing exercises, and supportive care. Supplemental oxygen to maintain oxygen saturations of 92% or better. Patient should undergo a repeat sleep study in the outpatient setting if not already completed, prior sleep study 2 years ago showed no evidence of obstructive sleep apnea however the patient has gained significant amount of weight since that time. Initiate and encourage incentive spirometer. Continue nebulizer treatments. GI and DVT prophylaxis. PT/OT. We will continue to monitor labs/results and adjust treatment as necessary. Further recommendations pending. I performed an examination of the patient and discussed their management with the nurse practitioner. I have reviewed the nurse practitioner's note and agree with the documented findings and plan of care.
[2017-09-05 10:17] LABS: Band Neutrophils % 4 %; Eosinophils # (M) 0.34 k/uL (0-0.7); Lymphocytes # (M) 4.45 k/uL (1.0-4.8); Metamyelocytes # (M) 1.03 k/uL (0); Metamyelocytes % 6 %; Monocytes # (M) 0.86 k/uL (0-1.0); Myelocytes # (M) 0.51 k/uL (0); Myelocytes % 3 %; Neutrophils % (M) 55 %; Nucleated Red Blood Cells 0 /100 WBC (0-0); Promyelocytes # (M) 0.17 k/uL (0); Promyelocytes % 1 %; Total Cells Counted 200
[2017-09-05 10:18] LABS: Poikilocytosis (M) Present; Toxic Granulation Present
[2017-09-05 11:32] VITALS: BMI 50.2
[2017-09-05 11:57] LABS: Glucose,Whole Blood 153 mg/dL (75-99)
[2017-09-05] MEDS: LIDOCAINE 2% INJ 20 MG/ML SQ ONE ×2 (17:12→17:28)
[2017-09-05] MEDS ORDERED: LIDOCAINE 2% INJ 20 MG/ML SQ ONE (17:12)
[2017-09-05] MEDS: MIDAZOLAM 2 MG/2 ML VIAL IV ONE ×2 (17:15→17:20)
[2017-09-05] MEDS: fentaNYL (PF) 50 MCG/ML 2 ML AMP IV ONE ×2 (17:15→17:25)
[2017-09-05] MEDS ORDERED: fentaNYL (PF) 50 MCG/ML 2 ML AMP IV ONE (17:18)
[2017-09-05] MEDS ORDERED: MIDAZOLAM 2 MG/2 ML VIAL IV ONE (17:18)
[2017-09-05] MEDS ORDERED: IV FLUID CONTINUATION 1,000 ML IV ONE (17:19)
--- NOTE | 2017-09-05 17:49 | CONS ---
DATE OF CONSULTATION: 09/05/2017 This is a 47-year-old female. I was consulted for placement of a Infante catheter. The patient has a chronic wound right lower extremity under care of Dr. Akshat Rivera and patient needs long-term antibiotic and I was consulted for placement of a Infante catheter. MEDICAL HISTORY: Include history of obesity, history sarcoidosis. PHYSICAL EXAMINATION: NECK: Supple. Patient has a nasal cannula of oxygen. Heart: First and second sounds normal. Abdomen is protuberant. Bilateral pedal edema noted. Right lower extremity has a evidence of ulceration, lateral surface of the calf and medial aspect of the calf is patient. The wound is covered by the dressing. PLAN: Placement of the Infante catheter. Risks and complications of bleeding, infection, thrombosis have been discussed. MMODL / IJN: [id number] / MTDD
--- NOTE | 2017-09-05 18:44 | XR ---
EXAMINATION: XR chest 1V portable DATE AND TIME: 09/05/2017 6:38 PM ORDERING PROVIDER: Edmund Winter CLINICAL INDICATION: velarde placement TECHNIQUE: AP upright portable underpenetrated technique COMPARISON: 11/30/2016 DESCRIPTION: Right IJ central line tip appears to be superimposed over the distal SVC, although the prominent over lying soft tissues obscures visualization. The visualized lungs are clear. The visualized pleural spaces are negative. Mildly enlarged cardiac silhouette noted. No definite acute skeletal findings. IMPRESSION: NO DEFINITE ACUTE PROCESS. Limited radiographic technique.
[2017-09-05 18:47] LABS: Glucose,Whole Blood 171 mg/dL (75-99)
[2017-09-05 21:06] LABS: Glucose,Whole Blood 177 mg/dL (75-99)
--- NOTE | 2017-09-05 21:46 | P.PN ---
Subjective Progress Note Date: 09/05/17 Principal diagnosis: Sepsis This is a 47-year-old -Beninese female with past medical history of the left thigh wound that was treated at the wound healing Center under the care of Dr. Hernandez through 02/08/2017. Patient has been treated for lymphedema in the outpatient setting with daily wraps which was effective but then changed to sequential compression that did not help her edema. Patient states that she had a fall 4 weeks ago as she has had foot drop in the right and lost her balance in her right leg hit her wheelchair causing a wound. She has been using a wound wash and colloidal silver dressing and wrapping daily. She has not been on any antibiotics. She has not sought treatment for this until she came into [facility] emergency center on August 11 as she has had increased pain, edema and redness to the right lower extremity. Ultrasound was negative for DVT. There was nonspecific edematous reticular change in the right calf but negative for abnormal focal fluid or gas collection to suggest abscess. Tib-fib x-ray was negative for acute process.. She denies having any fever, chills, nausea, vomiting, shortness of breath. She does have sarcoidosis followed by Dr. KASIE Anderson and is home O2 dependent at 3 L nasal cannula. Her breathing is at her baseline. She was recently hospitalized for cellulitis of the right lower extremity. He was treated with local care, antibiotic therapy and some elevation in she had improvement. Sent home on oral cefuroxime was doing well. However home care could not be arranged the dressing was not changed. By the time it was removed she had another injury from the left great toe accidentally injuring the medial aspect of the right calf which further worsened the swelling erythema tenderness in drainage from the leg. Because of the lack of improvement she again presented to the emergency center has been admitted for evaluation and treatment of her cellulitis to the right leg complicated by her hemiparesis to the lower extremities and her obesity. 09/01/2017 reveals the patient to be slightly more comfortable. She denying significant fever chills or rigors or sweats. Leg is still uncomfortable. Is having difficulty tolerating compression which is not unusual for her which leads to her problems is without compression she has edema. 09/05/2017 patient remains uncomfortable but is denying interim new troubles. Looks forward to her IV access placement today so that she can be transitioned to outpatient intervenous antibiotic therapy at home. She denying further fevers chills rigors or sweats. Objective - Vital Signs Vital signs: Vital Signs Temp 98.5 F 09/05/17 15:00 Pulse 94 09/05/17 20:16 Resp 20 09/05/17 15:29 BP 147/88 09/05/17 15:00 Pulse Ox 95 09/05/17 15:00 Intake & Output 09/05/17 09/05/17 09/06/17 06:59 18:59 06:59 Intake Total 550 480 Output Total 3300 Balance 550 -2820 Weight 158.757 kg Intake: Intake, IV Titration 550 Amount Piperacillin-Tazobactam 3 50 .375 gm In Dextrose/Water 1 50ml.bag @ 12.5 mls/hr IVPB Q8H [facility] Rx#: [id number] Vancomycin 2,250 mg In 500 Sodium Chloride 0.9% 500 ml @ 167 mls/hr IVPB Q24H [facility] Rx#:[id number] Oral 480 Output: Urine 3300 Other: Voiding Method Indwelling Catheter Indwelling Catheter # Voids 1 1 # Bowel Movements 1 - Exam Gen: This is a morbidly obese 47-year-old -Beninese female. She is sitting up in bed eating her breakfast and appears to be in no acute distress. No respiratory distress is noted. She does have oxygen in place. HEENT: Head is atraumatic, normocephalic. Pupils equal, round. Sclerae is anicteric. Conjunctiva pink. Mucous members of the mouth are moist. No thrush noted. NECK: Supple. No JVD. No lymphadenopathy. No thyromegaly. LUNGS: Diminished. No wheezes or rhonchi. No intercostal retractions. HEART: Distant heart sounds. Regular rate and rhythm. No murmur. ABDOMEN: Soft. Bowel sounds are present. No masses. No tenderness. EXTREMITIES: Bilateral 2+ pedal edema. The left lower extremities without acute lesions. The right lower extremity reveals evidence of the ulceration was in the lateral surface of the calf that measures approximately 3.2x1.2 x 0.2 cm. The new injury is medial calf measuring at 1 x 1 x 0.2 cm. Both areas have evidence of slough at the base. There is dense erythema over that region. It is quite tender to touch. There is a distinct swelling and erythema in this region. She has minimal tenderness into the right groin at the inguinal lymph node. But no erythema is seen in that region. The left leg without open lesions NEUROLOGICAL: Patient is awake, alert and oriented x3. - Labs CBC & Chem 7: 09/05/17 08:38 09/05/17 08:38 Labs: Abnormal Lab Results - Last 24 Hours (Table) 09/05/17 09/05/17 09/05/17 Range/Units 06:58 08:38 08:38 WBC 17.1 H (3.8-10.6) k/uL Neutrophils # (Manual) 10.00 H (1.3-7.7) k/uL Metamyelocytes # (Man) 1.03 H (0) k/uL Myelocytes # (Manual) 0.51 H (0) k/uL Promyelocytes # (Man) 0.17 H (0) k/uL Chloride 88 L (98-107) mmol/L Carbon Dioxide 42 H* (22-30) mmol/L BUN 32 H (7-17) mg/dL Creatinine 1.10 H (0.52-1.04) mg/dL Glucose 137 H (74-99) mg/dL POC Glucose (mg/dL) 142 H (75-99) mg/dL 09/05/17 09/05/17 09/05/17 Range/Units 11:48 18:45 21:02 WBC (3.8-10.6) k/uL Neutrophils # (Manual) (1.3-7.7) k/uL Metamyelocytes # (Man) (0) k/uL Myelocytes # (Manual) (0) k/uL Promyelocytes # (Man) (0) k/uL Chloride (98-107) mmol/L Carbon Dioxide (22-30) mmol/L BUN (7-17) mg/dL Creatinine (0.52-1.04) mg/dL Glucose (74-99) mg/dL POC Glucose (mg/dL) 153 H 171 H 177 H (75-99) mg/dL Microbiology - Last 24 Hours (Table) 08/29/17 17:07 Blood Culture - Final Blood No Growth after 144 hours Laboratory Results WBC 17.1 k/uL (3.8-10.6) H 09/05/17 08:38 RBC 4.48 m/uL (3.80-5.40) 09/05/17 08:38 Hgb 12.5 gm/dL (11.4-16.0) 09/05/17 08:38 Hct 38.7 % (34.0-46.0) 09/05/17 08:38 MCV 86.5 fL (80.0-100.0) 09/05/17 08:38 MCH 27.9 pg (25.0-35.0) 09/05/17 08:38 MCHC 32.2 g/dL (31.0-37.0) 09/05/17 08:38 RDW 14.4 % (11.5-15.5) 09/05/17 08:38 Plt Count 340 k/uL (150-450) 09/05/17 08:38 Neutrophils % 73 % 09/02/17 08:42 Neutrophils % (Manual) 55 % 09/05/17 08:38 Band Neutrophils % 4 % 09/05/17 08:38 Lymphocytes % 20 % 09/02/17 08:42 Lymphocytes % (Manual) 26 % 09/05/17 08:38 Monocytes % 4 % 09/02/17 08:42 Monocytes % (Manual) 5 % 09/05/17 08:38 Eosinophils % 1 % 09/02/17 08:42 Eosinophils % (Manual) 2 % 09/05/17 08:38 Basophils % 1 % 09/02/17 08:42 Basophils % (Manual) 1 % 09/03/17 08:07 Metamyelocytes % 6 % 09/05/17 08:38 Myelocytes % 3 % 09/05/17 08:38 Promyelocytes % 1 % 09/05/17 08:38 Neutrophils # 8.0 k/uL (1.3-7.7) H 09/02/17 08:42 Neutrophils # (Manual) 10.00 k/uL (1.3-7.7) H 09/05/17 08:38 Lymphocytes # 2.2 k/uL (1.0-4.8) 09/02/17 08:42 Lymphocytes # (Manual) 4.45 k/uL (1.0-4.8) 09/05/17 08:38 Monocytes # 0.4 k/uL (0-1.0) 09/02/17 08:42 Monocytes # (Manual) 0.86 k/uL (0-1.0) 09/05/17 08:38 Eosinophils # 0.1 k/uL (0-0.7) 09/02/17 08:42 Eosinophils # (Manual) 0.34 k/uL (0-0.7) 09/05/17 08:38 Basophils # 0.1 k/uL (0-0.2) 09/02/17 08:42 Basophils # (Manual) 0.12 k/uL (0-0.2) 09/03/17 08:07 Metamyelocytes # (Man) 1.03 k/uL (0) H 09/05/17 08:38 Myelocytes # (Manual) 0.51 k/uL (0) H 09/05/17 08:38 Promyelocytes # (Man) 0.17 k/uL (0) H 09/05/17 08:38 Nucleated RBCs 0 /100 WBC (0-0) 09/05/17 08:38 Manual Slide Review Performed 09/05/17 08:38 Toxic Granulation Present 09/05/17 08:38 RBC Morphology Normal 09/04/17 11:23 Poikilocytosis (manual Present 09/05/17 08:38 Sodium 140 mmol/L (137-145) 09/05/17 08:38 Potassium 3.5 mmol/L (3.5-5.1) 09/05/17 08:38 Chloride 88 mmol/L (98-107) L 09/05/17 08:38 Carbon Dioxide 42 mmol/L (22-30) H* 09/05/17 08:38 Anion Gap 10 mmol/L 09/05/17 08:38 BUN 32 mg/dL (7-17) H 09/05/17 08:38 Creatinine 1.10 mg/dL (0.52-1.04) H 09/05/17 08:38 Est GFR (CKD-EPI)AfAm 68 (>60 ml/min/1.73 sqM) 09/05/17 08:38 Est GFR (CKD-EPI)NonAf 59 (>60 ml/min/1.73 sqM) 09/05/17 08:38 Glucose 137 mg/dL (74-99) H 09/05/17 08:38 POC Glucose (mg/dL) 177 mg/dL (75-99) H 09/05/17 21:02 POC Glu It Lead ID Vonda Angel 09/05/17 21:02 Plasma Lactic Acid Andrey 1.5 mmol/L (0.7-2.0) 08/29/17 21:10 Calcium 10.0 mg/dL (8.4-10.2) 09/05/17 08:38 Total Bilirubin 0.4 mg/dL (0.2-1.3) 08/30/17 09:00 AST 9 U/L (14-36) L 08/30/17 09:00 ALT 26 U/L (9-52) 08/30/17 09:00 Alkaline Phosphatase 46 U/L (38-126) 08/30/17 09:00 Total Protein 5.6 g/dL (6.3-8.2) L 08/30/17 09:00 Albumin 3.2 g/dL (3.5-5.0) L 08/30/17 09:00 Vancomycin Trough 27.4 ug/mL 09/04/17 11:23 Microbiology 08/29/17 17:07 Blood Blood Culture - Final No Growth after 144 hours 08/29/17 17:07 Ankle - Right Gram Stain - Final 08/29/17 17:07 Ankle - Right Wound Culture - Final Staphylococcus aureus Acinetobacter lwoffi grp Enterobacter cloacae Assessment and Plan (1) Cellulitis of right leg Narrative/Plan: 47-year-old woman presents to the emergency center with a several-day history of increasing pain and swelling erythema and drainage to her right lower extremity. She was recently hospitalized at which point in time she received treatment for the cellulitis and ulceration to her right leg. She was treated with local therapy and antibiotics and a marked improvement. However at home she had difficulty with local wound care. Apparently home care nurse did not come to the home. She does not have ongoing care to the area it worsens she now has new ulceration medially from a unintentionally self-inflicted injury from her toenail of the left foot onto the right leg. She has significant cellulitis and worsening to the area. Local wound care will initiate with medical plan to the open areas and a wrap from the foot to the knee. Elevation at rest. Antibiotic therapy has been directed with vancomycin and Zosyn until we have further data based on prior culture results with Pseudomonas and staph aureus. Her protein status is adequate she is up-to-date with her vaccines will add a multivitamin with zinc to help her healing. We'll have to construct a plan for discharge the may include outpatient intravenous antibiotic therapy depending on the final culture results. 09/01/2017 reveals the patient to be slightly improved. She seems responding to current antibiotic therapy well. Await final susceptibilities to allow streamlining of her antibiotic therapy. She'll need further local care before she is ready for discharge to home because of her significant discomfort. Leukocytosis improving and no fever is noted today. 09/05/2017 patient continues to have improvement. However still having difficulties with swelling erythema and tenderness to the limb. There is several days delay of her diuretic therapy which is now being given with a Lopez catheter in place. Hopefully with further aggressive diuretic therapy, elevation and wrap with local wound care she will improve and be ready for transition to the home setting with intravenous Invanz 1 g IV piggyback daily for 2 weeks for her refractory cellulitis. Current Visit: Yes Status: Acute Code(s): L03.115 - CELLULITIS OF RIGHT LOWER LIMB SNOMED Code(s): 396319490 (2) Failure of outpatient treatment Current Visit: Yes Status: Acute Code(s): Z78.9 - OTHER SPECIFIED HEALTH STATUS SNOMED Code(s): 704473062 (3) Sarcoidosis Current Visit: Yes Status: Acute Code(s): D86.9 - SARCOIDOSIS, UNSPECIFIED SNOMED Code(s): 52338692 (4) Leukocytosis Current Visit: Yes Status: Acute Code(s): D72.829 - ELEVATED WHITE BLOOD CELL COUNT, UNSPECIFIED SNOMED Code(s): 154472944
[2017-09-05] MEDS: VANCOMYCIN 2,250 MG in SODIUM CHLORIDE 0.9% 500 ML IVPB SCH (23:07)
[2017-09-06] MEDS: PIPERACILLIN-TAZOBACTAM 3.375 GM in DEXTROSE/WATER 1 50ML.BAG IVPB SCH ×3 (02:16→17:59)
[2017-09-06] MEDS: MORPHINE ORAL SOLN 10 MG/5 ML CUP PO PRN ×4 (02:20→21:59)
[2017-09-06] MEDS: HYDROcodone/APAP 5-325MG 1 EACH TAB PO PRN ×2 (05:53→12:44)
[2017-09-06 07:15] LABS: Glucose,Whole Blood 124 mg/dL (75-99)
--- NOTE | 2017-09-06 08:07 | P.PN ---
Subjective Progress Note Date: 09/05/17 This is a 47-year-old -[place]ub[place] female patient of Dr. Dean with past medical history of the left thigh wound that was treated at the wound healing Center under the care of Dr. Hernandez through 02/08/2017, chronic lymphedema, chronic pain on methadone osteoarthritis, spinal stenosis, pulmonary sarcoidosis followed by Dr. KASIE Anderson currently on prednisone 80 mg daily. Patient has been treated for lymphedema in the outpatient setting with daily wraps which was effective but then changed to sequential compression that did not help her edema. Patient was last admitted Back - with a fall 4 weeks prior to that admission secondary to loss of balance and hit her leg with the wheelchair causing a wound and was treated for lymphedema, edema and cellulitis as well as the leg ulcer, Dr. Rivera was in attendance at that time. Patient was negative for deep venous thrombosis. Wound cultures were growing MSSA, from the right leg, and was discharged on cephalexin for additional 7 more days with outpatient follow-up to PCP and Dr. Rivrea in his office. Patient did not show up the homecare were not signed, the wound dressing has not been unwrapped since then. Patient also did not see Dr. Rivera in his scheduled appointment In emergency room, patient has had increasing leg swelling, worsened when we evaluated her last time, also a new wound in the medial aspect of the lower leg as she flung her right leg hitting her left toe nail, therefore puncturing it with her own toenail. The wound now measures 2.5 cm x 2 cm the anicteric, with slight mucoid granulation, significant edema, with cultures have been sent, patient was started on Unasyn and vancomycin from the emergency room, consults were with Dr. Rivera, IV Lasix for edema, 08/31: Consult with Dr. Rivera has been placed. Patient is on IV Lasix. She continues to have lower extremity edema. Temperature max yesterday was 100.0. Consult will be added for Dr. KASIE Anderson regarding pulmonary sarcoidosis and large doses of prednisone. Patient states that she is unable to be weaned down on prednisone due to the severity of her disease. 09/01: Patient has been seen by Dr. Rivera and she is currently on Zosyn and vancomycin. Dr. KASIE Anderson has seen the patient and decreased prednisone to 70 mg daily. Patient is currently refusing Lasix IV and she wants a Lopez catheter placed. IV Lasix changed to oral and Zaroxolyn has been added. Female catheter to be trialed. Patient continues to feel very very sore in her leg and still swollen. Culture is showing gram-negative bacilli. 09/02: Wound culture is positive for Enterobacter coloration, Acinetobacter lwoffi, and MSSA. Await Dr. Rivera recommendations for antibiotics. She is currently on vancomycin and Zosyn. Patient had large incontinence of urine due to failure of the female catheter. Lopez catheter will be placed. She has been afebrile. Anticipate discharge to [facility] on Tuesday. 09/03: Consult with Dr. Moy lo with plan for Infante placement. Patient remains with Lopez catheter in place. Lasix will be decreased to 20 mg orally daily. We will plan to discontinue Lopez catheter in the morning and plan for discharge to [facility]. Patient denies fever or chills. Vital signs have been stable. Pulse ox is 95% 200% on 3 L. Objective - Vital Signs Vital signs: Vital Signs Temp 98.5 F 09/05/17 15:00 Pulse 98 09/05/17 15:19 Resp 20 09/05/17 15:29 BP 147/88 09/05/17 15:00 Pulse Ox 95 09/05/17 15:00 Intake & Output 09/04/17 09/05/17 09/05/17 18:59 06:59 18:59 Intake Total 550 480 Output Total 3100 2000 Balance -3100 550 -1520 Weight 158.757 kg Intake: Intake, IV Titration 550 Amount Piperacillin-Tazobactam 3 50 .375 gm In Dextrose/Water 1 50ml.bag @ 12.5 mls/hr IVPB Q8H [facility] Rx#: [id number] Vancomycin 2,250 mg In 500 Sodium Chloride 0.9% 500 ml @ 167 mls/hr IVPB Q24H [facility] Rx#:[id number] Oral 480 Output: Urine 3100 2000 Other: Voiding Method Indwelling Catheter Indwelling Catheter Indwelling Catheter # Voids 1 1 # Bowel Movements 1 - Exam General appearance: cooperative, no acute distress - EENT Eyes: EOMI, PERRLA - Neck Neck: lymphadenopathy - Respiratory Respiratory: bilateral: CTA, negative: diminished, dullness, rales - Cardiovascular Rhythm: regular Heart sounds: normal: S1, S2 Abnormal Heart Sounds: no systolic murmur, no diastolic murmur, no rub, no S3 Gallop, no S4 Gallop, no click, no other - Gastrointestinal General gastrointestinal: normal bowel sounds, soft - Integumentary Integumentary: decreased turgor, normal, ulcer (Right leg 2.5 cm x 2 cm, granulation with mucoid discharge, right lateral right leg, right medial lower leg shows small puncture wound 0.5 x 0.8 cm, depth cannot be estimated left is okay) - Neurologic Neurologic: CNII-XII intact - Labs CBC & Chem 7: 09/05/17 08:38 09/05/17 08:38 Labs: Abnormal Lab Results - Last 24 Hours (Table) 09/04/17 09/04/17 09/05/17 Range/Units 16:52 20:39 06:58 WBC (3.8-10.6) k/uL Neutrophils # (Manual) (1.3-7.7) k/uL Metamyelocytes # (Man) (0) k/uL Myelocytes # (Manual) (0) k/uL Promyelocytes # (Man) (0) k/uL Chloride (98-107) mmol/L Carbon Dioxide (22-30) mmol/L BUN (7-17) mg/dL Creatinine (0.52-1.04) mg/dL Glucose (74-99) mg/dL POC Glucose (mg/dL) 269 H 155 H 142 H (75-99) mg/dL 09/05/17 09/05/17 09/05/17 Range/Units 08:38 08:38 11:48 WBC 17.1 H (3.8-10.6) k/uL Neutrophils # (Manual) 10.00 H (1.3-7.7) k/uL Metamyelocytes # (Man) 1.03 H (0) k/uL Myelocytes # (Manual) 0.51 H (0) k/uL Promyelocytes # (Man) 0.17 H (0) k/uL Chloride 88 L (98-107) mmol/L Carbon Dioxide 42 H* (22-30) mmol/L BUN 32 H (7-17) mg/dL Creatinine 1.10 H (0.52-1.04) mg/dL Glucose 137 H (74-99) mg/dL POC Glucose (mg/dL) 153 H (75-99) mg/dL Microbiology - Last 24 Hours (Table) 08/29/17 17:07 Blood Culture - Final Blood No Growth after 144 hours Assessment and Plan Plan: 1. Leg Cellulitis, edema lower extremity Recurrent wound to the right lower extremity mid calf with pre-existing lymphedema present prior to admission.Now nonhealing Prior MSSA in July 2017, now with new wound right medial leg from her TOENAIL , patient is on chronic prednisone as well, Patient is currently on vancomycin and Unasyn Consult with Dr. Rivera in place. Dilaudid and Toradol for pain. Resume methadone, Diuretics with Lasix. Zaroxolyn added. Infante placed today and plan for discharge to [facility] tomorrow with IV antibiotics. Lopez catheter will be removed in the morning. Lasix decreased to 20 mg orally 2. Sarcoidosis. Under the care of Dr KASIE Anderson. Patient is currently on prednisone 80 mg daily and albuterol nebulizer 4 times daily. We'll reconsult Dr. Anderson to possibly recommend treatment options and prednisone decreased to 70 mg daily 3. Chronic hypoxic respiratory failure on home O2 at 3 L nasal cannula. 4. Chronic pain syndrome. Continue methadone 105 mg daily. 5. Diabetes mellitus type 2, initiate metformin 500 mg twice a day 5. GI prophylaxis. Pepcid. 6. DVT prophylaxis. Heparin subcu. 7. Morbid obesity with BMI of 57. Hemoglobin A1c last August 12 was 6.9 8. Mild protein malnutrition, serum albumin 3.2, supplements to be given 9. Chronic hypercarbia, underlying sleep apnea suspected, unsure about current sleep study treatments 10. Chronic long-term use of steroid oral prednisone secondary to pulmonary sarcoid. Consult with Dr. KASIE Anderson. Discharge plan: [facility] on Tuesday Impression and plan of care have been directed as dictated by the signing physician. Jeanne Roca nurse practitioner acting as scribe for signing physician.
[2017-09-06] MEDS: metFORMIN 500 MG TAB PO SCH ×2 (08:09→17:57)
[2017-09-06] MEDS: predniSONE 20 MG TAB PO SCH (08:09)
[2017-09-06] MEDS: FUROSEMIDE 20 MG TAB PO SCH (08:10)
[2017-09-06] MEDS: POTASSIUM CHLORIDE ER 20 MEQ TAB.ER PO SCH ×2 (08:10→21:59)
[2017-09-06] MEDS: LISINOPRIL 10 MG TAB PO SCH ×2 (08:10→08:13)
[2017-09-06] MEDS: SODIUM CHLORIDE 0.9% 1,000 ML IV SCH ×2 (08:10→23:16)
[2017-09-06] MEDS: METHADONE 10 MG TAB PO SCH (08:16)
--- NOTE | 2017-09-06 09:52 | P.PN ---
Subjective Progress Note Date: 09/06/17 HPI: This is a 47-year-old patient being seen examined and evaluated today on rounds. She is well-known to our services. This patient does have a long- standing history of COPD, sarcoidosis. We will consult. In regards to her high -dose steroids. Currently the patient was admitted to the hospital for right lower extremity cellulitis and a nonhealing wound. Ultrasound of the lower extremities was negative for any DVTs. She has been followed with infectious disease at this time. And they are adjusting her antibiotics. Cultures are pending. The patient currently is on prednisone 80 mg in the outpatient setting daily. The patient has refused lowering the steroids in the past due to fear of exacerbation. The patient states every time it is lowered she ends up in severe state of respiratory distress. The importance of finding a good balance between her prednisone dosing and wound healing has been discussed with the patient at length. The patient is agreeable to reduce her prednisone to 70 mg at this time. We will trial a very slow taper and see how she does. Upon examination the patient is resting up in bed on 3 L of supplemental oxygen via nasal cannula which is what she uses at home as well. She denies any increase in shortness of breath past her baseline at this time. Patient has a previous smoker but quit 40 years ago she did smoke 1-1/2 packs per day for at least 20 years. Patient has previously been tested for AMBER and stated she does not have sleep apnea but did have nighttime desaturations. Patient could possibly benefit from a repeat sleep study. Denies any cough or congestion. She is afebrile, no further complaints. 09/03/2017: Patient seen and examined. Patient is sitting up on the bedside commode. She states that her breathing is a little bit worse today. She states that she feels a little bit tighter today. She states her wounds on her legs look about the same. In the past the patient's insurance has routinely denied her of Remicade and Enbrel for her sarcoidosis. The patient has been referred to several tertiary care centers for further recommendations. The recommendations per the tertiary care centers are for Remicade however again her insurance continues to deny. 09/04/2017: Patient seen and examined. Patient is sitting up in the chair. She states she is feeling good today except that she has leg pain. She said the Toradol did help but it was stopped because she received 5 days of doses. She is asking for something else for pain. 09/05/17- patient being seen examined and evaluated today on rounds. She is resting up in bed on 3 L of supplemental oxygen via nasal cannula which is what she wears home as well. She is afebrile, no overnight events. No further complaints. 09/06/17- patient is being seen examined and evaluated today on rounds. Patient did go for a Infante catheter placement yesterday. Infectious diseases recommendations pending demands daily for 2 weeks outpatient. Patient is having some port site tenderness which is to be expected. She denies any further complaints. She is resting up in bed on 3 L supplemental oxygen via nasal cannula. Continues on her prednisone. Discharge planning underway. Objective - Vital Signs Vital signs: Vital Signs Temp 98.2 F 09/06/17 07:00 Pulse 68 09/06/17 07:00 Resp 18 09/06/17 07:00 BP 145/74 09/06/17 07:00 Pulse Ox 95 09/06/17 07:00 Intake & Output 09/05/17 09/06/17 09/06/17 18:59 06:59 18:59 Intake Total 480 550 Output Total 3300 1600 Balance -2820 -1050 Weight 158.757 kg Intake: IV 550 Piperacillin-Tazobactam 3 50 .375 gm In Dextrose/Water 1 50ml.bag @ 12.5 mls/hr IVPB Q8H [facility] Rx#: [id number] Vancomycin 2,250 mg In 500 Sodium Chloride 0.9% 500 ml @ 167 mls/hr IVPB Q24H [facility] Rx#:[id number] Oral 480 Output: Urine 3300 1600 Other: Voiding Method Indwelling Catheter Indwelling Catheter # Voids 1 1 # Bowel Movements 1 - Exam GENERAL EXAM: Alert, morbidly obese, comfortable in no apparent distress. HEAD: Normocephalic. EYES: Normal reaction of pupils, equal size. NOSE: Clear with pink turbinates. THROAT: No erythema or exudates. NECK: No masses, no JVD. CHEST: No chest wall deformity. Right-sided Infante port site. LUNGS: Poor air entry bilaterally with no crackles, wheeze, rhonchi or dullness. Bases diminished CVS: S1 and S2 normal with no audible mumurs, regular rhythm. ABDOMEN: No hepatosplenomegaly, normal bowel sounds, no guarding or rigidity. EXTREMITIES: +2 edema noted, pedal pulses palpable. Right lower extremity wound , dressing clean dry and intact CENTRAL NERVOUS SYSTEM: No focal deficits, tone is normal in all 4 extremities. - Labs CBC & Chem 7: 09/05/17 08:38 09/05/17 08:38 Labs: Abnormal Lab Results - Last 24 Hours (Table) 09/05/17 09/05/17 09/05/17 Range/Units 08:38 08:38 11:48 Neutrophils # (Manual) 10.00 H (1.3-7.7) k/uL Metamyelocytes # (Man) 1.03 H (0) k/uL Myelocytes # (Manual) 0.51 H (0) k/uL Promyelocytes # (Man) 0.17 H (0) k/uL Chloride 88 L (98-107) mmol/L Carbon Dioxide 42 H* (22-30) mmol/L BUN 32 H (7-17) mg/dL Creatinine 1.10 H (0.52-1.04) mg/dL Glucose 137 H (74-99) mg/dL POC Glucose (mg/dL) 153 H (75-99) mg/dL 09/05/17 09/05/17 09/06/17 Range/Units 18:45 21:02 07:01 Neutrophils # (Manual) (1.3-7.7) k/uL Metamyelocytes # (Man) (0) k/uL Myelocytes # (Manual) (0) k/uL Promyelocytes # (Man) (0) k/uL Chloride (98-107) mmol/L Carbon Dioxide (22-30) mmol/L BUN (7-17) mg/dL Creatinine (0.52-1.04) mg/dL Glucose (74-99) mg/dL POC Glucose (mg/dL) 171 H 177 H 124 H (75-99) mg/dL Assessment and Plan Assessment: Assessment Cellulitis of right lower extremity with open wounds Failed outpatient treatment of right lower extremity wounds Sarcoidosis and steroid dependent Chronic hypoxic respiratory failure requiring supplemental oxygen at all times Leukocytosis Morbid obesity Chronic pain syndrome Suspect AMBER, and/or obesity hypoventilation syndrome Plan Medications have been reviewed and will be continued as ordered. Continue prednisone 70 mg daily. [place] for pain management. Continue with infectious disease and recommendations. Patient status post Infante port insertion, will require IV antibiotics post discharge. Continue with pulmonary hygiene, coughing and deep breathing exercises, and supportive care. Supplemental oxygen to maintain oxygen saturations of 92% or better. Patient should undergo a repeat sleep study in the outpatient setting if not already completed, prior sleep study 2 years ago showed no evidence of obstructive sleep apnea however the patient has gained significant amount of weight since that time. Initiate and encourage incentive spirometer. Continue nebulizer treatments. GI and DVT prophylaxis. PT/OT. We will continue to monitor labs/results and adjust treatment as necessary. Further recommendations pending. I performed an examination of the patient and discussed their management with the nurse practitioner. I have reviewed the nurse practitioner's note and agree with the documented findings and plan of care.
[2017-09-06] MEDS: BUDESONIDE 0.5 MG/2 ML NEBU INHALATION SCH ×2 (10:45→20:23)
[2017-09-06] MEDS: IPRATROPIUM-ALBUTEROL 3 ML NEB INHALATION SCH ×4 (10:45→20:23)
[2017-09-06] MEDS ORDERED: KETOROLAC 30 MG/ML 1 ML VIAL IVP SCH (12:00)
[2017-09-06] MEDS: PANTOPRAZOLE 40 MG TABLET PO SCH (12:37)
--- NOTE | 2017-09-06 12:43 | IR ---
Fluoroscopy HISTORY: Infante catheter placement 0.6 minutes fluoroscopy time supplied to the referring clinician. 109 intraoperative C-arm images do cument the procedure. See dictated report from vascular surgery.
[2017-09-06 12:44] LABS: Glucose,Whole Blood 204 mg/dL (75-99)
[2017-09-06] MEDS: IBUPROFEN 800 MG TAB PO SCH ×3 (12:48→23:18)
[2017-09-06] MEDS ORDERED: MORPHINE SULFATE/PF 10MG/10ML VL IVP STA (14:10)
[2017-09-06] MEDS ORDERED: IBUPROFEN 800 MG TAB PO SCH (16:00)
--- NOTE | 2017-09-06 16:16 | P.PN ---
Subjective Progress Note Date: 09/06/17 This is a 47-year-old -[place] female patient of Dr. Dean with past medical history of the left thigh wound that was treated at the wound healing Center under the care of Dr. Hernandez through 02/08/2017, chronic lymphedema, chronic pain on methadone osteoarthritis, spinal stenosis, pulmonary sarcoidosis followed by Dr. KASIE Anderson currently on prednisone 80 mg daily. Patient has been treated for lymphedema in the outpatient setting with daily wraps which was effective but then changed to sequential compression that did not help her edema. Patient was last admitted Back - with a fall 4 weeks prior to that admission secondary to loss of balance and hit her leg with the wheelchair causing a wound and was treated for lymphedema, edema and cellulitis as well as the leg ulcer, Dr. Rivera was in attendance at that time. Patient was negative for deep venous thrombosis. Wound cultures were growing MSSA, from the right leg, and was discharged on cephalexin for additional 7 more days with outpatient follow-up to PCP and Dr. Rivera in his office. Patient did not show up the homecare were not signed, the wound dressing has not been unwrapped since then. Patient also did not see Dr. Rivera in his scheduled appointment In emergency room, patient has had increasing leg swelling, worsened when we evaluated her last time, also a new wound in the medial aspect of the lower leg as she flung her right leg hitting her left toe nail, therefore puncturing it with her own toenail. The wound now measures 2.5 cm x 2 cm the anicteric, with slight mucoid granulation, significant edema, with cultures have been sent, patient was started on Unasyn and vancomycin from the emergency room, consults were with Dr. Rivera, IV Lasix for edema, 08/31: Consult with Dr. Rivera has been placed. Patient is on IV Lasix. She continues to have lower extremity edema. Temperature max yesterday was 100.0. Consult will be added for Dr. KASIE Anderson regarding pulmonary sarcoidosis and large doses of prednisone. Patient states that she is unable to be weaned down on prednisone due to the severity of her disease. 09/01: Patient has been seen by Dr. Rivera and she is currently on Zosyn and vancomycin. Dr. KASIE Anderson has seen the patient and decreased prednisone to 70 mg daily. Patient is currently refusing Lasix IV and she wants a Lopez catheter placed. IV Lasix changed to oral and Zaroxolyn has been added. Female catheter to be trialed. Patient continues to feel very very sore in her leg and still swollen. Culture is showing gram-negative bacilli. 09/02: Wound culture is positive for Enterobacter coloration, Acinetobacter lwoffi, and MSSA. Await Dr. Rivera recommendations for antibiotics. She is currently on vancomycin and Zosyn. Patient had large incontinence of urine due to failure of the female catheter. Lopez catheter will be placed. She has been afebrile. Anticipate discharge to [facility] on Tuesday. 09/05: Consult with Dr. Moy lo with plan for Infante placement. Patient remains with Lopez catheter in place. Lasix will be decreased to 20 mg orally daily. We will plan to discontinue Lopez catheter in the morning and plan for discharge to [facility]. Patient denies fever or chills. Vital signs have been stable. Pulse ox is 95% 200% on 3 L. 09/06: Patient is complaining of neck pain that is so bad she cannot get up to a commode chair to have a bowel movement. Patient is noted to have ecchymosis around the right clavicle. Patient will be placed on ibuprofen. Subsequently, patient was trying to get out of bed onto the commode by herself and the nurse helped her. She claims that the nurse hurt her back trying to get her to a commode chair and now her pain is much more severe. Patient has difficulty using the bedpan due to pain is well. One dose of Dilaudid ordered only. Plan is for patient to go home with IV antibiotics tomorrow. Dr. Rivera has sent a prescription to [facility]. Objective - Vital Signs Vital signs: Vital Signs Temp 98.2 F 09/06/17 07:00 Pulse 100 09/06/17 10:55 Resp 18 09/06/17 07:00 BP 145/74 09/06/17 07:00 Pulse Ox 95 09/06/17 07:00 Intake & Output 09/05/17 09/06/17 09/06/17 18:59 06:59 18:59 Intake Total 480 550 480 Output Total 3300 1600 Balance -2820 -1050 480 Weight 158.757 kg Intake: IV 550 Piperacillin-Tazobactam 3 50 .375 gm In Dextrose/Water 1 50ml.bag @ 12.5 mls/hr IVPB Q8H [facility] Rx#: [id number] Vancomycin 2,250 mg In 500 Sodium Chloride 0.9% 500 ml @ 167 mls/hr IVPB Q24H [facility] Rx#:[id number] Oral 480 480 Output: Urine 3300 1600 Other: Voiding Method Indwelling Catheter Indwelling Catheter # Voids 1 1 # Bowel Movements 1 - Exam General appearance: cooperative, no acute distress - EENT Eyes: EOMI, PERRLA - Neck Neck: lymphadenopathy - Respiratory Respiratory: bilateral: CTA, negative: diminished, dullness, rales - Cardiovascular Rhythm: regular Heart sounds: normal: S1, S2 Abnormal Heart Sounds: no systolic murmur, no diastolic murmur, no rub, no S3 Gallop, no S4 Gallop, no click, no other - Gastrointestinal General gastrointestinal: normal bowel sounds, soft - Integumentary Integumentary: decreased turgor, normal, ulcer (Right leg 2.5 cm x 2 cm, granulation with mucoid discharge, right lateral right leg, right medial lower leg shows small puncture wound 0.5 x 0.8 cm, depth cannot be estimated left is okay) - Neurologic Neurologic: CNII-XII intact - Labs CBC & Chem 7: 09/05/17 08:38 09/05/17 08:38 Labs: Abnormal Lab Results - Last 24 Hours (Table) 09/05/17 09/05/17 09/06/17 Range/Units 18:45 21:02 07:01 POC Glucose (mg/dL) 171 H 177 H 124 H (75-99) mg/dL Assessment and Plan Plan: 1. Leg Cellulitis, edema lower extremity Recurrent wound to the right lower extremity mid calf with pre-existing lymphedema present prior to admission.Now nonhealing Prior MSSA in July 2017, now with new wound right medial leg from her TOENAIL , patient is on chronic prednisone as well, Patient is currently on vancomycin and Unasyn Consult with Dr. Rivera in place. Dilaudid and Toradol for pain. Resume methadone, Diuretics with Lasix. Zaroxolyn added. Infante placed for IV antibiotics. Lopez catheter will be removed in the morning. Lasix decreased to 20 mg orally 2. Sarcoidosis. Under the care of Dr KASIE Anderson. Patient is currently on prednisone 80 mg daily and albuterol nebulizer 4 times daily. We'll reconsult Dr. Anderson to possibly recommend treatment options and prednisone decreased to 70 mg daily 3. Chronic hypoxic respiratory failure on home O2 at 3 L nasal cannula. 4. Chronic pain syndrome. Continue methadone 105 mg daily. 5. Diabetes mellitus type 2, initiate metformin 500 mg twice a day 5. GI prophylaxis. Pepcid. 6. DVT prophylaxis. Heparin subcu. 7. Morbid obesity with BMI of 57. Hemoglobin A1c last August 12 was 6.9 8. Mild protein malnutrition, serum albumin 3.2, supplements to be given 9. Chronic hypercarbia, underlying sleep apnea suspected, unsure about current sleep study treatments 10. Chronic long-term use of steroid oral prednisone secondary to pulmonary sarcoid. Consult with Dr. KASIE Anderson. Discharge plan: Home with home care and IV antibiotics on Tuesday Impression and plan of care have been directed as dictated by the signing physician. Jeanne Roca nurse practitioner acting as scribe for signing physician.
[2017-09-06 17:53] LABS: Glucose,Whole Blood 234 mg/dL (75-99)
[2017-09-06 20:52] LABS: Glucose,Whole Blood 113 mg/dL (75-99)
[2017-09-06] MEDS: VANCOMYCIN 2,250 MG in SODIUM CHLORIDE 0.9% 500 ML IVPB SCH (23:16)
--- NOTE | 2017-09-06 23:26 | P.PN ---
Subjective Progress Note Date: 09/06/17 Principal diagnosis: Sepsis This is a 47-year-old -[place]ian female with past medical history of the left thigh wound that was treated at the wound healing Center under the care of Dr. Hernandez through 02/08/2017. Patient has been treated for lymphedema in the outpatient setting with daily wraps which was effective but then changed to sequential compression that did not help her edema. Patient states that she had a fall 4 weeks ago as she has had foot drop in the right and lost her balance in her right leg hit her wheelchair causing a wound. She has been using a wound wash and colloidal silver dressing and wrapping daily. She has not been on any antibiotics. She has not sought treatment for this until she came into [facility] emergency center on August 11 as she has had increased pain, edema and redness to the right lower extremity. Ultrasound was negative for DVT. There was nonspecific edematous reticular change in the right calf but negative for abnormal focal fluid or gas collection to suggest abscess. Tib-fib x-ray was negative for acute process.. She denies having any fever, chills, nausea, vomiting, shortness of breath. She does have sarcoidosis followed by Dr. KASIE Anderson and is home O2 dependent at 3 L nasal cannula. Her breathing is at her baseline. She was recently hospitalized for cellulitis of the right lower extremity. He was treated with local care, antibiotic therapy and some elevation in she had improvement. Sent home on oral cefuroxime was doing well. However home care could not be arranged the dressing was not changed. By the time it was removed she had another injury from the left great toe accidentally injuring the medial aspect of the right calf which further worsened the swelling erythema tenderness in drainage from the leg. Because of the lack of improvement she again presented to the emergency center has been admitted for evaluation and treatment of her cellulitis to the right leg complicated by her hemiparesis to the lower extremities and her obesity. 09/01/2017 reveals the patient to be slightly more comfortable. She denying significant fever chills or rigors or sweats. Leg is still uncomfortable. Is having difficulty tolerating compression which is not unusual for her which leads to her problems is without compression she has edema. 09/05/2017 patient remains uncomfortable but is denying interim new troubles. Looks forward to her IV access placement today so that she can be transitioned to outpatient intervenous antibiotic therapy at home. She denying further fevers chills rigors or sweats. 09/06/2017 patient is quite miserable today. She has developed significant pain to her neck after her procedure. She is denying fevers or chills but feels poorly. Leg is still swollen and tender. Objective - Vital Signs Vital signs: Vital Signs Temp 99.3 F 09/06/17 15:00 Pulse 104 H 09/06/17 20:46 Resp 20 09/06/17 15:00 BP 143/89 09/06/17 15:00 Pulse Ox 97 09/06/17 15:00 Intake & Output 09/06/17 09/06/17 09/07/17 06:59 18:59 06:59 Intake Total 550 960 Output Total 1600 1900 Balance -1050 -940 Intake: IV 550 Piperacillin-Tazobactam 3 50 .375 gm In Dextrose/Water 1 50ml.bag @ 12.5 mls/hr IVPB Q8H LESLIE Rx#: [id number] Vancomycin 2,250 mg In 500 Sodium Chloride 0.9% 500 ml @ 167 mls/hr IVPB Q24H LESLIE Rx#:[id number] Oral 960 Output: Urine 1600 1900 Other: Voiding Method Indwelling Catheter Indwelling Catheter Indwelling Catheter # Voids 1 # Bowel Movements 1 - Exam Gen: This is a morbidly obese 47-year-old -[place]ian female. She is sitting up in bed eating her breakfast and appears to be in no acute distress. No respiratory distress is noted. She does have oxygen in place. HEENT: Head is atraumatic, normocephalic. Pupils equal, round. Sclerae is anicteric. Conjunctiva pink. Mucous members of the mouth are moist. No thrush noted. NECK: Supple. No JVD. No lymphadenopathy. No thyromegaly. The right lower neck and anterior chest wall shows evidence of the new intravenous catheter, patient complains of severe tenderness upon attempts to move her neck. No erythema or warmth is noted LUNGS: Diminished. No wheezes or rhonchi. No intercostal retractions. HEART: Distant heart sounds. Regular rate and rhythm. No murmur. ABDOMEN: Soft. Bowel sounds are present. No masses. No tenderness. EXTREMITIES: Bilateral 2+ pedal edema. The left lower extremities without acute lesions. The right lower extremity reveals evidence of the ulceration was in the lateral surface of the calf that measures approximately 3.2x1.2 x 0.2 cm. The new injury is medial calf measuring at 1 x 1 x 0.2 cm. Both areas have evidence of slough at the base. There is dense erythema over that region. It is quite tender to touch. There is a distinct swelling and erythema in this region. She has minimal tenderness into the right groin at the inguinal lymph node. But no erythema is seen in that region. The left leg without open lesions NEUROLOGICAL: Patient is awake, alert and oriented x3. - Labs CBC & Chem 7: 09/05/17 08:38 09/05/17 08:38 Labs: Abnormal Lab Results - Last 24 Hours (Table) 09/06/17 09/06/17 09/06/17 Range/Units 07:01 12:28 17:34 POC Glucose (mg/dL) 124 H 204 H 234 H (75-99) mg/dL 09/06/17 Range/Units 20:37 POC Glucose (mg/dL) 113 H (75-99) mg/dL Laboratory Results WBC 17.1 k/uL (3.8-10.6) H 09/05/17 08:38 RBC 4.48 m/uL (3.80-5.40) 09/05/17 08:38 Hgb 12.5 gm/dL (11.4-16.0) 09/05/17 08:38 Hct 38.7 % (34.0-46.0) 09/05/17 08:38 MCV 86.5 fL (80.0-100.0) 09/05/17 08:38 MCH 27.9 pg (25.0-35.0) 09/05/17 08:38 MCHC 32.2 g/dL (31.0-37.0) 09/05/17 08:38 RDW 14.4 % (11.5-15.5) 09/05/17 08:38 Plt Count 340 k/uL (150-450) 09/05/17 08:38 Neutrophils % 73 % 09/02/17 08:42 Neutrophils % (Manual) 55 % 09/05/17 08:38 Band Neutrophils % 4 % 09/05/17 08:38 Lymphocytes % 20 % 09/02/17 08:42 Lymphocytes % (Manual) 26 % 09/05/17 08:38 Monocytes % 4 % 09/02/17 08:42 Monocytes % (Manual) 5 % 09/05/17 08:38 Eosinophils % 1 % 09/02/17 08:42 Eosinophils % (Manual) 2 % 09/05/17 08:38 Basophils % 1 % 09/02/17 08:42 Basophils % (Manual) 1 % 09/03/17 08:07 Metamyelocytes % 6 % 09/05/17 08:38 Myelocytes % 3 % 09/05/17 08:38 Promyelocytes % 1 % 09/05/17 08:38 Neutrophils # 8.0 k/uL (1.3-7.7) H 09/02/17 08:42 Neutrophils # (Manual) 10.00 k/uL (1.3-7.7) H 09/05/17 08:38 Lymphocytes # 2.2 k/uL (1.0-4.8) 09/02/17 08:42 Lymphocytes # (Manual) 4.45 k/uL (1.0-4.8) 09/05/17 08:38 Monocytes # 0.4 k/uL (0-1.0) 09/02/17 08:42 Monocytes # (Manual) 0.86 k/uL (0-1.0) 09/05/17 08:38 Eosinophils # 0.1 k/uL (0-0.7) 09/02/17 08:42 Eosinophils # (Manual) 0.34 k/uL (0-0.7) 09/05/17 08:38 Basophils # 0.1 k/uL (0-0.2) 09/02/17 08:42 Basophils # (Manual) 0.12 k/uL (0-0.2) 09/03/17 08:07 Metamyelocytes # (Man) 1.03 k/uL (0) H 09/05/17 08:38 Myelocytes # (Manual) 0.51 k/uL (0) H 09/05/17 08:38 Promyelocytes # (Man) 0.17 k/uL (0) H 09/05/17 08:38 Nucleated RBCs 0 /100 WBC (0-0) 09/05/17 08:38 Manual Slide Review Performed 09/05/17 08:38 Toxic Granulation Present 09/05/17 08:38 RBC Morphology Normal 09/04/17 11:23 Poikilocytosis (manual Present 09/05/17 08:38 Sodium 140 mmol/L (137-145) 09/05/17 08:38 Potassium 3.5 mmol/L (3.5-5.1) 09/05/17 08:38 Chloride 88 mmol/L (98-107) L 09/05/17 08:38 Carbon Dioxide 42 mmol/L (22-30) H* 09/05/17 08:38 Anion Gap 10 mmol/L 09/05/17 08:38 BUN 32 mg/dL (7-17) H 09/05/17 08:38 Creatinine 1.10 mg/dL (0.52-1.04) H 09/05/17 08:38 Est GFR (CKD-EPI)AfAm 68 (>60 ml/min/1.73 sqM) 09/05/17 08:38 Est GFR (CKD-EPI)NonAf 59 (>60 ml/min/1.73 sqM) 09/05/17 08:38 Glucose 137 mg/dL (74-99) H 09/05/17 08:38 POC Glucose (mg/dL) 113 mg/dL (75-99) H 09/06/17 20:37 POC Glu [employer] ID Madelyn Estrada 09/06/17 20:37 Plasma Lactic Acid Andrey 1.5 mmol/L (0.7-2.0) 08/29/17 21:10 Calcium 10.0 mg/dL (8.4-10.2) 09/05/17 08:38 Total Bilirubin 0.4 mg/dL (0.2-1.3) 08/30/17 09:00 AST 9 U/L (14-36) L 08/30/17 09:00 ALT 26 U/L (9-52) 08/30/17 09:00 Alkaline Phosphatase 46 U/L (38-126) 08/30/17 09:00 Total Protein 5.6 g/dL (6.3-8.2) L 08/30/17 09:00 Albumin 3.2 g/dL (3.5-5.0) L 08/30/17 09:00 Vancomycin Trough 27.4 ug/mL 09/04/17 11:23 Microbiology 08/29/17 17:07 Blood Blood Culture - Final No Growth after 144 hours 08/29/17 17:07 Ankle - Right Gram Stain - Final 08/29/17 17:07 Ankle - Right Wound Culture - Final Staphylococcus aureus Acinetobacter lwoffi grp Enterobacter cloacae Assessment and Plan (1) Cellulitis of right leg Narrative/Plan: 47-year-old woman presents to the emergency center with a several-day history of increasing pain and swelling erythema and drainage to her right lower extremity. She was recently hospitalized at which point in time she received treatment for the cellulitis and ulceration to her right leg. She was treated with local therapy and antibiotics and a marked improvement. However at home she had difficulty with local wound care. Apparently home care nurse did not come to the home. She does not have ongoing care to the area it worsens she now has new ulceration medially from a unintentionally self-inflicted injury from her toenail of the left foot onto the right leg. She has significant cellulitis and worsening to the area. Local wound care will initiate with medical plan to the open areas and a wrap from the foot to the knee. Elevation at rest. Antibiotic therapy has been directed with vancomycin and Zosyn until we have further data based on prior culture results with Pseudomonas and staph aureus. Her protein status is adequate she is up-to-date with her vaccines will add a multivitamin with zinc to help her healing. We'll have to construct a plan for discharge the may include outpatient intravenous antibiotic therapy depending on the final culture results. 09/01/2017 reveals the patient to be slightly improved. She seems responding to current antibiotic therapy well. Await final susceptibilities to allow streamlining of her antibiotic therapy. She'll need further local care before she is ready for discharge to home because of her significant discomfort. Leukocytosis improving and no fever is noted today. 09/05/2017 patient continues to have improvement. However still having difficulties with swelling erythema and tenderness to the limb. There is several days delay of her diuretic therapy which is now being given with a Lopez catheter in place. Hopefully with further aggressive diuretic therapy, elevation and wrap with local wound care she will improve and be ready for transition to the home setting with intravenous Invanz 1 g IV piggyback daily for 2 weeks for her refractory cellulitis. 09/06/2017 patient was having significant improvement but now after the Infante catheter was placed she's having significant stiffness to her neck after the procedure. We'll expected to start to improve relatively quickly assessed appears to be just a positional event. The patient relates her mother had a central line and did not express any difficulties such as this. She however is with superobesity. Fortunately catheter is functioning well and receiving her antibiotic therapy. She has no desire to go to extended care will be discharged to home likely tomorrow. She will complete 2 weeks of Invanz for the complicated infection of the right lower extremity that failed prior antibiotic therapy Current Visit: Yes Status: Acute Code(s): L03.115 - CELLULITIS OF RIGHT LOWER LIMB SNOMED Code(s): 729119160 (2) Failure of outpatient treatment Current Visit: Yes Status: Acute Code(s): Z78.9 - OTHER SPECIFIED HEALTH STATUS SNOMED Code(s): 651747821 (3) Sarcoidosis Current Visit: Yes Status: Acute Code(s): D86.9 - SARCOIDOSIS, UNSPECIFIED SNOMED Code(s): 11861396 (4) Leukocytosis Current Visit: Yes Status: Acute Code(s): D72.829 - ELEVATED WHITE BLOOD CELL COUNT, UNSPECIFIED SNOMED Code(s): 393058360
[2017-09-07] MEDS: PIPERACILLIN-TAZOBACTAM 3.375 GM in DEXTROSE/WATER 1 50ML.BAG IVPB SCH ×3 (02:27→17:23)
[2017-09-07] MEDS: SODIUM CHLORIDE 0.9% 1,000 ML IV SCH ×2 (05:51→16:17)
[2017-09-07] MEDS: MORPHINE ORAL SOLN 10 MG/5 ML CUP PO PRN ×3 (05:55→19:42)
[2017-09-07 07:02] LABS: Glucose,Whole Blood 156 mg/dL (75-99)
[2017-09-07] MEDS: IPRATROPIUM-ALBUTEROL 3 ML NEB INHALATION SCH ×4 (08:43→19:56)
[2017-09-07] MEDS: BUDESONIDE 0.5 MG/2 ML NEBU INHALATION SCH ×2 (08:44→19:56)
[2017-09-07] MEDS: LISINOPRIL 10 MG TAB PO SCH (08:58)
[2017-09-07] MEDS: metFORMIN 500 MG TAB PO SCH ×2 (08:59→17:23)
[2017-09-07] MEDS: PANTOPRAZOLE 40 MG TABLET PO SCH (08:59)
[2017-09-07] MEDS: POTASSIUM CHLORIDE ER 20 MEQ TAB.ER PO SCH ×3 (08:59→16:08)
[2017-09-07] MEDS: FUROSEMIDE 20 MG TAB PO SCH (08:59)
[2017-09-07] MEDS: predniSONE 20 MG TAB PO SCH (09:00)
[2017-09-07] MEDS: METOLAZONE 2.5 MG TAB PO SCH (09:00)
[2017-09-07] MEDS: METHADONE 10 MG TAB PO SCH (09:01)
[2017-09-07 09:25] LABS: Calcium 9.3 mg/dL (8.4-10.2); Potassium 3.2 mmol/L (3.5-5.1)
--- NOTE | 2017-09-07 10:20 | P.PN ---
Subjective Progress Note Date: 09/07/17 HPI: This is a 47-year-old patient being seen examined and evaluated today on rounds. She is well-known to our services. This patient does have a long- standing history of COPD, sarcoidosis. We will consult. In regards to her high -dose steroids. Currently the patient was admitted to the hospital for right lower extremity cellulitis and a nonhealing wound. Ultrasound of the lower extremities was negative for any DVTs. She has been followed with infectious disease at this time. And they are adjusting her antibiotics. Cultures are pending. The patient currently is on prednisone 80 mg in the outpatient setting daily. The patient has refused lowering the steroids in the past due to fear of exacerbation. The patient states every time it is lowered she ends up in severe state of respiratory distress. The importance of finding a good balance between her prednisone dosing and wound healing has been discussed with the patient at length. The patient is agreeable to reduce her prednisone to 70 mg at this time. We will trial a very slow taper and see how she does. Upon examination the patient is resting up in bed on 3 L of supplemental oxygen via nasal cannula which is what she uses at home as well. She denies any increase in shortness of breath past her baseline at this time. Patient has a previous smoker but quit 40 years ago she did smoke 1-1/2 packs per day for at least 20 years. Patient has previously been tested for AMBER and stated she does not have sleep apnea but did have nighttime desaturations. Patient could possibly benefit from a repeat sleep study. Denies any cough or congestion. She is afebrile, no further complaints. 09/03/2017: Patient seen and examined. Patient is sitting up on the bedside commode. She states that her breathing is a little bit worse today. She states that she feels a little bit tighter today. She states her wounds on her legs look about the same. In the past the patient's insurance has routinely denied her of Remicade and Enbrel for her sarcoidosis. The patient has been referred to several tertiary care centers for further recommendations. The recommendations per the tertiary care centers are for Remicade however again her insurance continues to deny. 09/04/2017: Patient seen and examined. Patient is sitting up in the chair. She states she is feeling good today except that she has leg pain. She said the Toradol did help but it was stopped because she received 5 days of doses. She is asking for something else for pain. 09/05/17- patient being seen examined and evaluated today on rounds. She is resting up in bed on 3 L of supplemental oxygen via nasal cannula which is what she wears home as well. She is afebrile, no overnight events. No further complaints. 09/06/17- patient is being seen examined and evaluated today on rounds. Patient did go for a Infante catheter placement yesterday. Infectious diseases recommendations pending demands daily for 2 weeks outpatient. Patient is having some port site tenderness which is to be expected. She denies any further complaints. She is resting up in bed on 3 L supplemental oxygen via nasal cannula. Continues on her prednisone. Discharge planning underway. 09/07/17- patient being examined and evaluated today on rounds. She is resting up in bed on 3 L of supplemental oxygen via nasal cannula. Discharge planning is taking place for home with home care for IV antibiotic infusions. Still continues to have some pain with Infante port site however is better than previous. She is afebrile no further complaints. Labs are currently pending. Objective - Vital Signs Vital signs: Vital Signs Temp 97.9 F 09/07/17 07:00 Pulse 101 H 09/07/17 08:55 Resp 16 09/07/17 08:55 BP 143/76 09/07/17 07:00 Pulse Ox 99 09/07/17 08:44 Intake & Output 09/06/17 09/07/17 09/07/17 18:59 06:59 18:59 Intake Total 960 500 Output Total 1900 Balance -940 500 Intake: Oral 960 500 Output: Urine 1900 Other: Voiding Method Indwelling Catheter Indwelling Catheter # Bowel Movements 1 2 - Exam GENERAL EXAM: Alert, morbidly obese, comfortable in no apparent distress. HEAD: Normocephalic. EYES: Normal reaction of pupils, equal size. NOSE: Clear with pink turbinates. THROAT: No erythema or exudates. NECK: No masses, no JVD. CHEST: No chest wall deformity. Right-sided Infante port site. LUNGS: Poor air entry bilaterally with no crackles, wheeze, rhonchi or dullness. Bases diminished CVS: S1 and S2 normal with no audible mumurs, regular rhythm. ABDOMEN: No hepatosplenomegaly, normal bowel sounds, no guarding or rigidity. EXTREMITIES: +2 edema noted, pedal pulses palpable. Right lower extremity wound , dressing clean dry and intact CENTRAL NERVOUS SYSTEM: No focal deficits, tone is normal in all 4 extremities. - Labs CBC & Chem 7: 09/05/17 08:38 09/07/17 08:31 Labs: Abnormal Lab Results - Last 24 Hours (Table) 09/06/17 09/06/17 09/06/17 Range/Units 12:28 17:34 20:37 Potassium (3.5-5.1) mmol/L Chloride (98-107) mmol/L Carbon Dioxide (22-30) mmol/L BUN (7-17) mg/dL Creatinine (0.52-1.04) mg/dL Glucose (74-99) mg/dL POC Glucose (mg/dL) 204 H 234 H 113 H (75-99) mg/dL 09/07/17 09/07/17 Range/Units 06:59 08:31 Potassium 3.2 L (3.5-5.1) mmol/L Chloride 89 L (98-107) mmol/L Carbon Dioxide 40 H* (22-30) mmol/L BUN 31 H (7-17) mg/dL Creatinine 1.09 H (0.52-1.04) mg/dL Glucose 128 H (74-99) mg/dL POC Glucose (mg/dL) 156 H (75-99) mg/dL Assessment and Plan Assessment: Assessment Cellulitis of right lower extremity with open wounds Failed outpatient treatment of right lower extremity wounds Sarcoidosis and steroid dependent Chronic hypoxic respiratory failure requiring supplemental oxygen at all times Leukocytosis Morbid obesity Chronic pain syndrome Suspect AMBER, and/or obesity hypoventilation syndrome Plan Discharge planning to home with home care and home IV antibiotic infusions in progress. This morning labs pending. Medications have been reviewed and will be continued as ordered. Continue prednisone 70 mg daily. [place] for pain management. Continue with infectious disease and recommendations. Patient status post Infante port insertion, will require IV antibiotics post discharge. Continue with pulmonary hygiene, coughing and deep breathing exercises, and supportive care. Supplemental oxygen to maintain oxygen saturations of 92% or better. Patient should undergo a repeat sleep study in the outpatient setting if not already completed, prior sleep study 2 years ago showed no evidence of obstructive sleep apnea however the patient has gained significant amount of weight since that time. Initiate and encourage incentive spirometer. Continue nebulizer treatments. GI and DVT prophylaxis. PT/OT. We will continue to monitor labs/results and adjust treatment as necessary. Further recommendations pending. I performed an examination of the patient and discussed their management with the nurse practitioner. I have reviewed the nurse practitioner's note and agree with the documented findings and plan of care.
--- NOTE | 2017-09-07 10:57 | PCN ---
PROCEDURE NOTE PREOPERATIVE DIAGNOSIS: Infected wound right leg. PROCEDURE: Placement of Medcomp of 5-Eritrean Infante catheter placed right internal jugular approach, ultrasound-guided. This patient was brought to the rn labor delivery. Right side of the neck and chest was prepped and draped in the usual sterile manner and 1% lidocaine infiltrated in the neck area. Micropuncture introduced right internal jugular vein. A 4-Eritrean dilator advanced on the top of the guidewire then we created a tunnel. Through the tunnel we brought Medcomp 5-Eritrean catheter to the neck area then the sheath was advanced on the top of the sheath, we introduced the catheter. The catheter was in the superior vena cava and atrium, flushed with heparin saline and hep-locked and secured with 3-0 nylon. Dressing applied. Patient tolerated the procedure well. BOWEN / SHAYN: [id number] /
[2017-09-07] MEDS ORDERED: IBUPROFEN 800 MG TAB PO PRN (11:39)
[2017-09-07 11:56] LABS: Glucose,Whole Blood 161 mg/dL (75-99)
[2017-09-07] MEDS: HYDROcodone/APAP 5-325MG 1 EACH TAB PO PRN (16:19)
[2017-09-07 16:49] LABS: Glucose,Whole Blood 306 mg/dL (75-99)
[2017-09-07 20:56] LABS: Glucose,Whole Blood 173 mg/dL (75-99)
[2017-09-07] MEDS: DIAZEPAM 5 MG/ML 2 ML INJ IVP PRN (21:34)
[2017-09-07] MEDS ORDERED: VANCOMYCIN TROUGH DUE 1 EACH MISC MISCELLANE ONE (23:00)
[2017-09-07] MEDS: VANCOMYCIN 2,250 MG in SODIUM CHLORIDE 0.9% 500 ML IVPB SCH (23:55)
[2017-09-08] MEDS: MORPHINE ORAL SOLN 10 MG/5 ML CUP PO PRN ×2 (00:08→03:43)
[2017-09-08] MEDS: PIPERACILLIN-TAZOBACTAM 3.375 GM in DEXTROSE/WATER 1 50ML.BAG IVPB SCH ×2 (03:45→10:48)
[2017-09-08] MEDS: SODIUM CHLORIDE 0.9% 1,000 ML IV SCH (03:46)
[2017-09-08] MEDS: HYDROcodone/APAP 5-325MG 1 EACH TAB PO PRN ×2 (06:32→13:36)
[2017-09-08 07:02] LABS: Glucose,Whole Blood 108 mg/dL (75-99)
[2017-09-08 07:29] VITALS: RESP 18
[2017-09-08] MEDS: BUDESONIDE 0.5 MG/2 ML NEBU INHALATION SCH (07:34)
[2017-09-08] MEDS: IPRATROPIUM-ALBUTEROL 3 ML NEB INHALATION SCH ×3 (07:34→15:12)
[2017-09-08 08:31] LABS: Calcium 9.6 mg/dL (8.4-10.2); Potassium 3.2 mmol/L (3.5-5.1)
[2017-09-08] MEDS: predniSONE 20 MG TAB PO SCH (08:45)
[2017-09-08] MEDS: POTASSIUM CHLORIDE ER 20 MEQ TAB.ER PO SCH (08:45)
[2017-09-08] MEDS: LISINOPRIL 10 MG TAB PO SCH (08:45)
[2017-09-08] MEDS: metFORMIN 500 MG TAB PO SCH (08:45)
[2017-09-08] MEDS: METHADONE 10 MG TAB PO SCH (08:46)
[2017-09-08] MEDS: PANTOPRAZOLE 40 MG TABLET PO SCH (08:49)
[2017-09-08] MEDS: FUROSEMIDE 20 MG TAB PO SCH (08:50)
[2017-09-08] MEDS: DIAZEPAM 5 MG/ML 2 ML INJ IVP PRN (10:06)
[2017-09-08] MEDS ORDERED: BACLOFEN 10 MG TAB PO PRN (10:29)
[2017-09-08] MEDS ORDERED: tiZANidine 4 MG TAB PO PRN (10:33)
[2017-09-08 11:43] LABS: Glucose,Whole Blood 144 mg/dL (75-99)
--- NOTE | 2017-09-08 13:12 | P.PN ---
Subjective Progress Note Date: 09/07/17 This is a 47-year-old -[place] female patient of Dr. Dean with past medical history of the left thigh wound that was treated at the wound healing Center under the care of Dr. Hernandez through 02/08/2017, chronic lymphedema, chronic pain on methadone osteoarthritis, spinal stenosis, pulmonary sarcoidosis followed by Dr. KASIE Anderson currently on prednisone 80 mg daily. Patient has been treated for lymphedema in the outpatient setting with daily wraps which was effective but then changed to sequential compression that did not help her edema. Patient was last admitted Back - with a fall 4 weeks prior to that admission secondary to loss of balance and hit her leg with the wheelchair causing a wound and was treated for lymphedema, edema and cellulitis as well as the leg ulcer, Dr. Rivera was in attendance at that time. Patient was negative for deep venous thrombosis. Wound cultures were growing MSSA, from the right leg, and was discharged on cephalexin for additional 7 more days with outpatient follow-up to PCP and Dr. Rivera in his office. Patient did not show up the homecare were not signed, the wound dressing has not been unwrapped since then. Patient also did not see Dr. Rivera in his scheduled appointment In emergency room, patient has had increasing leg swelling, worsened when we evaluated her last time, also a new wound in the medial aspect of the lower leg as she flung her right leg hitting her left toe nail, therefore puncturing it with her own toenail. The wound now measures 2.5 cm x 2 cm the anicteric, with slight mucoid granulation, significant edema, with cultures have been sent, patient was started on Unasyn and vancomycin from the emergency room, consults were with Dr. Rivera, IV Lasix for edema, 08/31: Consult with Dr. Rivera has been placed. Patient is on IV Lasix. She continues to have lower extremity edema. Temperature max yesterday was 100.0. Consult will be added for Dr. KASIE Anderson regarding pulmonary sarcoidosis and large doses of prednisone. Patient states that she is unable to be weaned down on prednisone due to the severity of her disease. 09/01: Patient has been seen by Dr. Rivera and she is currently on Zosyn and vancomycin. Dr. KASIE Anderson has seen the patient and decreased prednisone to 70 mg daily. Patient is currently refusing Lasix IV and she wants a Lopez catheter placed. IV Lasix changed to oral and Zaroxolyn has been added. Female catheter to be trialed. Patient continues to feel very very sore in her leg and still swollen. Culture is showing gram-negative bacilli. 09/02: Wound culture is positive for Enterobacter coloration, Acinetobacter lwoffi, and MSSA. Await Dr. Rivera recommendations for antibiotics. She is currently on vancomycin and Zosyn. Patient had large incontinence of urine due to failure of the female catheter. Lopez catheter will be placed. She has been afebrile. Anticipate discharge to [facility] on Tuesday. 09/05: Consult with Dr. Moy lo with plan for Infante placement. Patient remains with Lopez catheter in place. Lasix will be decreased to 20 mg orally daily. We will plan to discontinue Lopez catheter in the morning and plan for discharge to [facility]. Patient denies fever or chills. Vital signs have been stable. Pulse ox is 95% 200% on 3 L. 09/06: Patient is complaining of neck pain that is so bad she cannot get up to a commode chair to have a bowel movement. Patient is noted to have ecchymosis around the right clavicle. Patient will be placed on ibuprofen. Subsequently, patient was trying to get out of bed onto the commode by herself and the nurse helped her. She claims that the nurse hurt her back trying to get her to a commode chair and now her pain is much more severe. Patient has difficulty using the bedpan due to pain is well. One dose of Dilaudid ordered only. Plan is for patient to go home with IV antibiotics tomorrow. Dr. Rivera has sent a prescription to [facility]. 09/07: Patient is complaining of spasm in her right arm for which Flexeril was started. She continues to complain of pain to the right side of her neck since Infante catheter was placed. There is concern that she has increased weakness to her upper extremities. We are awaiting authorization for her home IV antibiotics. AF oh will be ordered for foot drop which contributed to patient' s previous fall. Objective - Vital Signs Vital signs: Vital Signs Temp 97.9 F 09/07/17 07:00 Pulse 91 03/21/18 11:58 Resp 16 09/07/17 11:58 BP 143/76 09/07/17 07:00 Pulse Ox 99 09/07/17 08:44 Intake & Output 09/06/17 09/07/17 09/07/17 18:59 06:59 18:59 Intake Total 960 500 Output Total 1900 Balance -940 500 Intake: Oral 960 500 Output: Urine 1900 Other: Voiding Method Indwelling Catheter Indwelling Catheter # Bowel Movements 1 2 - Exam General appearance: cooperative, no acute distress - EENT Eyes: EOMI, PERRLA - Neck Neck: lymphadenopathy - Respiratory Respiratory: bilateral: CTA, negative: diminished, dullness, rales - Cardiovascular Rhythm: regular Heart sounds: normal: S1, S2 Abnormal Heart Sounds: no systolic murmur, no diastolic murmur, no rub, no S3 Gallop, no S4 Gallop, no click, no other - Gastrointestinal General gastrointestinal: normal bowel sounds, soft - Integumentary Integumentary: decreased turgor, normal, ulcer (Right leg 2.5 cm x 2 cm, granulation with mucoid discharge, right lateral right leg, right medial lower leg shows small puncture wound 0.5 x 0.8 cm, depth cannot be estimated left is okay) - Neurologic Neurologic: CNII-XII intact - Labs CBC & Chem 7: 09/05/17 08:38 09/08/17 07:45 Labs: Abnormal Lab Results - Last 24 Hours (Table) 09/06/17 09/06/17 09/06/17 Range/Units 12:28 17:34 20:37 Potassium (3.5-5.1) mmol/L Chloride (98-107) mmol/L Carbon Dioxide (22-30) mmol/L BUN (7-17) mg/dL Creatinine (0.52-1.04) mg/dL Glucose (74-99) mg/dL POC Glucose (mg/dL) 204 H 234 H 113 H (75-99) mg/dL 09/07/17 09/07/17 09/07/17 Range/Units 06:59 08:31 11:51 Potassium 3.2 L (3.5-5.1) mmol/L Chloride 89 L (98-107) mmol/L Carbon Dioxide 40 H* (22-30) mmol/L BUN 31 H (7-17) mg/dL Creatinine 1.09 H (0.52-1.04) mg/dL Glucose 128 H (74-99) mg/dL POC Glucose (mg/dL) 156 H 161 H (75-99) mg/dL Assessment and Plan Plan: 1. Leg Cellulitis, edema lower extremity Recurrent wound to the right lower extremity mid calf with pre-existing lymphedema present prior to admission.Now nonhealing Prior MSSA in July 2017, now with new wound right medial leg from her TOENAIL , patient is on chronic prednisone as well, Patient is currently on vancomycin and Unasyn Consult with Dr. Rivera in place. Dilaudid and Toradol for pain. Resume methadone, Diuretics with Lasix. Zaroxolyn added. Infante placed for IV antibiotics. Lopez catheter will be removed in the morning. Lasix decreased to 20 mg orally. AFO ordered for foot drop 2. Sarcoidosis. Under the care of Dr KASIE Anderson. Patient is currently on prednisone 80 mg daily and albuterol nebulizer 4 times daily. We'll reconsult Dr. Anderson to possibly recommend treatment options and prednisone decreased to 70 mg daily 3. Chronic hypoxic respiratory failure on home O2 at 3 L nasal cannula. 4. Chronic pain syndrome. Continue methadone 105 mg daily. 5. Diabetes mellitus type 2, initiate metformin 500 mg twice a day 5. GI prophylaxis. Pepcid. 6. DVT prophylaxis. Heparin subcu. 7. Morbid obesity with BMI of 57. Hemoglobin A1c last August 12 was 6.9 8. Mild protein malnutrition, serum albumin 3.2, supplements to be given 9. Chronic hypercarbia, underlying sleep apnea suspected, unsure about current sleep study treatments 10. Chronic long-term use of steroid oral prednisone secondary to pulmonary sarcoid. Consult with Dr. KASIE Anderson. Discharge plan: Home with home care and IV antibiotics Impression and plan of care have been directed as dictated by the signing physician. Jeanne Roca nurse practitioner acting as scribe for signing physician.
--- NOTE | 2017-09-08 13:16 | P.DS ---
Providers Date of admission: 08/29/17 21:17 Expected date of discharge: 09/08/17 Attending physician: Kaylan Vizcarra Consults: 08/29/17 21:19 Consult Physician Routine Consulting Provider: Akshat Rivera Consult Reason/Comments: RLE cellulitis Do you want consulting provider notified?: Yes 09/01/17 14:53 Consult Physician Routine Consulting Provider: Kyle Anderson Consult Reason/Comments: pulm htn, high dose steroids Do you want consulting provider notified?: Yes 09/05/17 09:33 Consult Physician Routine Consulting Provider: Edmund Winter Consult Reason/Comments: velarde Do you want consulting provider notified?: Yes Primary care physician: [facility] Course: This is a 47-year-old -[place] female patient of Dr. Dean with past medical history of the left thigh wound that was treated at the wound healing Center under the care of Dr. Hernandez through 02/08/2017, chronic lymphedema, chronic pain on methadone osteoarthritis, spinal stenosis, pulmonary sarcoidosis followed by Dr. KASIE Anderson currently on prednisone 80 mg daily. Patient has been treated for lymphedema in the outpatient setting with daily wraps which was effective but then changed to sequential compression that did not help her edema. Patient was last admitted Back - with a fall 4 weeks prior to that admission secondary to loss of balance and hit her leg with the wheelchair causing a wound and was treated for lymphedema, edema and cellulitis as well as the leg ulcer, Dr. Rivera was in attendance at that time. Patient was negative for deep venous thrombosis. Wound cultures were growing MSSA, from the right leg, and was discharged on cephalexin for additional 7 more days with outpatient follow-up to PCP and Dr. Rivera in his office. Patient did not show up the homecare were not signed, the wound dressing has not been unwrapped since then. Patient also did not see Dr. Rivera in his scheduled appointment In emergency room, patient has had increasing leg swelling, worsened when we evaluated her last time, also a new wound in the medial aspect of the lower leg as she flung her right leg hitting her left toe nail, therefore puncturing it with her own toenail. The wound now measures 2.5 cm x 2 cm the anicteric, with slight mucoid granulation, significant edema, with cultures have been sent, patient was started on Unasyn and vancomycin from the emergency room, consults were with Dr. Rivera, IV Lasix for edema, 08/31: Consult with Dr. Rivera has been placed. Patient is on IV Lasix. She continues to have lower extremity edema. Temperature max yesterday was 100.0. Consult will be added for Dr. KASIE Anderson regarding pulmonary sarcoidosis and large doses of prednisone. Patient states that she is unable to be weaned down on prednisone due to the severity of her disease. 09/01: Patient has been seen by Dr. Rivera and she is currently on Zosyn and vancomycin. Dr. KASIE Anderson has seen the patient and decreased prednisone to 70 mg daily. Patient is currently refusing Lasix IV and she wants a Lopez catheter placed. IV Lasix changed to oral and Zaroxolyn has been added. Female catheter to be trialed. Patient continues to feel very very sore in her leg and still swollen. Culture is showing gram-negative bacilli. 09/02: Wound culture is positive for Enterobacter coloration, Acinetobacter lwoffi, and MSSA. Await Dr. Rivera recommendations for antibiotics. She is currently on vancomycin and Zosyn. Patient had large incontinence of urine due to failure of the female catheter. Lopez catheter will be placed. She has been afebrile. Anticipate discharge to [facility] on Tuesday. 09/05: Consult with Dr. Winter placed with plan for Velarde placement. Patient remains with Lopez catheter in place. Lasix will be decreased to 20 mg orally daily. We will plan to discontinue Lopez catheter in the morning and plan for discharge to [facility]. Patient denies fever or chills. Vital signs have been stable. Pulse ox is 95% 200% on 3 L. 09/06: Patient is complaining of neck pain that is so bad she cannot get up to a commode chair to have a bowel movement. Patient is noted to have ecchymosis around the right clavicle. Patient will be placed on ibuprofen. Subsequently, patient was trying to get out of bed onto the commode by herself and the nurse helped her. She claims that the nurse hurt her back trying to get her to a commode chair and now her pain is much more severe. Patient has difficulty using the bedpan due to pain is well. One dose of Dilaudid ordered only. Plan is for patient to go home with IV antibiotics tomorrow. Dr. Rivera has sent a prescription to [facility]. 09/07: Patient is complaining of spasm in her right arm for which Flexeril was started. She continues to complain of pain to the right side of her neck since Velarde catheter was placed. There is concern that she has increased weakness to her upper extremities. We are awaiting authorization for her home IV antibiotics. AF oh will be ordered for foot drop which contributed to patient' s previous fall. 09/08: Patient complaining it is to have spasms in her right arm and Flexeril did not seem to help so Zanaflex will be added instead. Patient may be accepted to [facility] for subacute rehab. Lopez catheter will remain in place and be discontinued at the long-term. Patient will be discharged today in stable condition and is to continue IV antibiotics to complete course. Now the patient may require follow-up with the landscape painter regarding methadone dosing. She states this has not been changed in a long time and should be addressed. Name of Dr. Carrasquillo will be placed in the chart for patient to follow-up with as an outpatient. Discharge Diagnoses: 1. Leg Cellulitis, edema lower extremity recurrent wound to the right lower extremity mid calf with pre-existing lymphedema present prior to admission, now nonhealing 2. Sarcoidosis. 3. Chronic hypoxic respiratory failure on home O2 at 3 L nasal cannula. 4. Chronic pain syndrome. 5. Diabetes mellitus type 2 6. Morbid obesity with BMI of 57. 7. Mild protein malnutrition, serum albumin 3.2, supplements to be given 8. Chronic hypercarbia, underlying sleep apnea suspected, unsure about current sleep study treatments 9. spasms to the right arm since placement of Velarde catheter. Discharge plan: [facility] Impression and plan of care have been directed as dictated by the signing physician. Jeanne Roca nurse practitioner acting as scribe for signing physician. Patient Condition at Discharge: Good Plan - Discharge Summary Discharge Rx Participant: No New Discharge Prescriptions: New Ertapenem [INVanz] 1 gm IVPB Q24H #14 bag HYDROcodone/APAP 5-325MG [Quincy 5-325] 1 each PO Q8HR PRN #21 tab PRN Reason: Pain metFORMIN HCL [Glucophage] 500 mg PO BID-W/MEALS #60 tab tiZANidine HCL [Zanaflex] 4 mg PO Q8HR PRN #90 tab PRN Reason: muscle spasms Continue Ibuprofen [Motrin Ib] 600 mg PO Q6H PRN PRN Reason: Pain Albuterol Inhaler [Ventolin Hfa Inhaler] 2 puff INHALATION RT-QID Furosemide [Lasix] 40 mg PO MOWEFR #24 tab Potassium Chloride ER [K-Dur 20] 20 meq PO MOWEFR #24 tab.er.prt Lisinopril [Prinivil] 10 mg PO DAILY #30 tab Budesonide [Pulmicort Flexhaler] 2 puff INHALATION RT-BID Ipratropium-Albuterol Nebulize [Duoneb 0.5 mg-3 mg/3 ml Soln] 3 ml INHALATION RT-QID Methadone HCl [Methadone Intensol] 105 mg PO DAILY #80 oral.conc Changed predniSONE 70 mg PO DAILY #0 Discharge Medication List Albuterol Inhaler [Ventolin Hfa Inhaler] 2 puff INHALATION RT-QID 08/11/17 [ History] Ibuprofen [Motrin Ib] 600 mg PO Q6H PRN 08/11/17 [History] Furosemide [Lasix] 40 mg PO MOWEFR #24 tab 08/15/17 [Rx] Lisinopril [Prinivil] 10 mg PO DAILY #30 tab 08/15/17 [Rx] Potassium Chloride ER [K-Dur 20] 20 meq PO MOWEFR #24 tab.er.prt 08/15/17 [Rx] Budesonide [Pulmicort Flexhaler] 2 puff INHALATION RT-BID 08/22/17 [History] Ipratropium-Albuterol Nebulize [Duoneb 0.5 mg-3 mg/3 ml Soln] 3 ml INHALATION RT -QID 08/29/17 [History] Ertapenem [INVanz] 1 gm IVPB Q24H #14 bag 09/05/17 [Rx] HYDROcodone/APAP 5-325MG [Quincy 5-325] 1 each PO Q8HR PRN #21 tab 09/07/17 [Rx] metFORMIN HCL [Glucophage] 500 mg PO BID-W/MEALS #60 tab 09/07/17 [Rx] predniSONE 70 mg PO DAILY #0 09/07/17 [Rx] Methadone HCl [Methadone Intensol] 105 mg PO DAILY #80 oral.conc 09/08/17 [Rx] tiZANidine HCL [Zanaflex] 4 mg PO Q8HR PRN #90 tab 09/08/17 [Rx] Follow up Appointment(s)/Referral(s): Elda Palencia DO [Doctor of Osteopathic Medicine] - 1 Week [facility], [NON-STAFF] - [facility], [NON-STAFF] - 1 Week Naveen Dean MD [Primary Care Provider] - 1 Week (after discharge from ECF) Ambulatory/Diagnostic Orders: Basic Metabolic Panel [LAB.AMB] Location: Determined By Patient Complete Blood Count w/diff [LAB.AMB] Location: Determined By Patient Patient Instructions/Handouts: Cellulitis (DC) Activity/Diet/Wound Care/Special Instructions: DIONY wraps bilat lower extremities. Elevate at rest. Fall precautions. Call [facility] when you get home and they will set up an appt to come out and evaluate you for brace. Cardiac, diabetic diet. Discharge Disposition: TRANSFER TO SNF/ECF
--- NOTE | 2017-09-08 13:18 | P.PN ---
Subjective Progress Note Date: 09/08/17 HPI: This is a 47-year-old patient being seen examined and evaluated today on rounds. She is well-known to our services. This patient does have a long- standing history of COPD, sarcoidosis. We will consult. In regards to her high -dose steroids. Currently the patient was admitted to the hospital for right lower extremity cellulitis and a nonhealing wound. Ultrasound of the lower extremities was negative for any DVTs. She has been followed with infectious disease at this time. And they are adjusting her antibiotics. Cultures are pending. The patient currently is on prednisone 80 mg in the outpatient setting daily. The patient has refused lowering the steroids in the past due to fear of exacerbation. The patient states every time it is lowered she ends up in severe state of respiratory distress. The importance of finding a good balance between her prednisone dosing and wound healing has been discussed with the patient at length. The patient is agreeable to reduce her prednisone to 70 mg at this time. We will trial a very slow taper and see how she does. Upon examination the patient is resting up in bed on 3 L of supplemental oxygen via nasal cannula which is what she uses at home as well. She denies any increase in shortness of breath past her baseline at this time. Patient has a previous smoker but quit 40 years ago she did smoke 1-1/2 packs per day for at least 20 years. Patient has previously been tested for AMBER and stated she does not have sleep apnea but did have nighttime desaturations. Patient could possibly benefit from a repeat sleep study. Denies any cough or congestion. She is afebrile, no further complaints. 09/03/2017: Patient seen and examined. Patient is sitting up on the bedside commode. She states that her breathing is a little bit worse today. She states that she feels a little bit tighter today. She states her wounds on her legs look about the same. In the past the patient's insurance has routinely denied her of Remicade and Enbrel for her sarcoidosis. The patient has been referred to several tertiary care centers for further recommendations. The recommendations per the tertiary care centers are for Remicade however again her insurance continues to deny. 09/04/2017: Patient seen and examined. Patient is sitting up in the chair. She states she is feeling good today except that she has leg pain. She said the Toradol did help but it was stopped because she received 5 days of doses. She is asking for something else for pain. 09/05/17- patient being seen examined and evaluated today on rounds. She is resting up in bed on 3 L of supplemental oxygen via nasal cannula which is what she wears home as well. She is afebrile, no overnight events. No further complaints. 09/06/17- patient is being seen examined and evaluated today on rounds. Patient did go for a Infante catheter placement yesterday. Infectious diseases recommendations pending demands daily for 2 weeks outpatient. Patient is having some port site tenderness which is to be expected. She denies any further complaints. She is resting up in bed on 3 L supplemental oxygen via nasal cannula. Continues on her prednisone. Discharge planning underway. 09/07/17- patient being examined and evaluated today on rounds. She is resting up in bed on 3 L of supplemental oxygen via nasal cannula. Discharge planning is taking place for home with home care for IV antibiotic infusions. Still continues to have some pain with Infante port site however is better than previous. She is afebrile no further complaints. Labs are currently pending. 09/08/17- patient has been seen examined and evaluated today on pounds. Patient' s resting up in bed on her usual dose of 3 L of supplemental oxygen via nasal cannula. Patient is being prepared for discharge. She denies any significant shortness of breath cough or congestion at this time. Pain has been improving overall. All labs and reports been reviewed. Objective - Vital Signs Vital signs: Vital Signs Temp 98.4 F 09/08/17 07:00 Pulse 86 09/08/17 11:59 Resp 18 09/08/17 07:00 BP 143/88 09/08/17 07:00 Pulse Ox 99 09/08/17 07:00 Intake & Output 09/07/17 09/08/17 09/08/17 18:59 06:59 18:59 Intake Total 50 Output Total 2001 1599 Balance -1951 -1599 Intake: IV 50 Piperacillin-Tazobactam 3 50 .375 gm In Dextrose/Water 1 50ml.bag @ 12.5 mls/hr IVPB Q8H [facility], 1928–1983 Rx#: [id number] Output: Urine 1999 1599 Stool 2 Other: Voiding Method Indwelling Catheter Indwelling Catheter - Exam GENERAL EXAM: Alert, morbidly obese, comfortable in no apparent distress. HEAD: Normocephalic. EYES: Normal reaction of pupils, equal size. NOSE: Clear with pink turbinates. THROAT: No erythema or exudates. NECK: No masses, no JVD. CHEST: No chest wall deformity. Right-sided Infante port site. LUNGS: Poor air entry bilaterally with no crackles, wheeze, rhonchi or dullness. Bases diminished CVS: S1 and S2 normal with no audible mumurs, regular rhythm. ABDOMEN: No hepatosplenomegaly, normal bowel sounds, no guarding or rigidity. EXTREMITIES: +2 edema noted, pedal pulses palpable. Right lower extremity wound , dressing clean dry and intact CENTRAL NERVOUS SYSTEM: No focal deficits, tone is normal in all 4 extremities. - Labs CBC & Chem 7: 09/05/17 08:38 09/08/17 07:45 Labs: Abnormal Lab Results - Last 24 Hours (Table) 09/07/17 09/07/17 09/08/17 Range/Units 16:47 20:55 06:58 Sodium (137-145) mmol/L Potassium (3.5-5.1) mmol/L Chloride (98-107) mmol/L Carbon Dioxide (22-30) mmol/L BUN (7-17) mg/dL POC Glucose (mg/dL) 306 H 173 H 108 H (75-99) mg/dL 09/08/17 09/08/17 Range/Units 07:45 11:41 Sodium 136 L (137-145) mmol/L Potassium 3.2 L (3.5-5.1) mmol/L Chloride 87 L (98-107) mmol/L Carbon Dioxide 41 H* (22-30) mmol/L BUN 25 H (7-17) mg/dL POC Glucose (mg/dL) 144 H (75-99) mg/dL Assessment and Plan Assessment: Assessment Cellulitis of right lower extremity with open wounds Failed outpatient treatment of right lower extremity wounds Sarcoidosis and steroid dependent Chronic hypoxic respiratory failure requiring supplemental oxygen at all times Leukocytosis Morbid obesity Chronic pain syndrome Suspect AMBER, and/or obesity hypoventilation syndrome Plan Discharge planning to home with home care and home IV antibiotic infusions in progress. This morning labs pending. Medications have been reviewed and will be continued as ordered. Continue prednisone 70 mg daily. [place] for pain management. Continue with infectious disease and recommendations. Patient status post Infante port insertion, will require IV antibiotics post discharge. Continue with pulmonary hygiene, coughing and deep breathing exercises, and supportive care. Supplemental oxygen to maintain oxygen saturations of 92% or better. Patient should undergo a repeat sleep study in the outpatient setting if not already completed, prior sleep study 2 years ago showed no evidence of obstructive sleep apnea however the patient has gained significant amount of weight since that time. Initiate and encourage incentive spirometer. Continue nebulizer treatments. GI and DVT prophylaxis. PT/OT. We will continue to monitor labs/results and adjust treatment as necessary. Further recommendations pending. I performed an examination of the patient and discussed their management with the nurse practitioner. I have reviewed the nurse practitioner's note and agree with the documented findings and plan of care.
[2017-09-08 15:20] VITALS: BP 142/81; TEMP 99.1
[2017-09-08 15:22] VITALS: PULSE 93
[2017-09-08] MEDS ORDERED: VANCOMYCIN 2,250 MG in SODIUM CHLORIDE 0.9% 500 ML IVPB SCH (16:00)
== END 2017-09-08 16:16 | DRG 638 ==
LOC: EC 17:13 → 4MS4W 21:17
PROVIDERS: ADMIT Family Medicine; ATTEND Family Medicine
PROC: 02HV33Z Insertion of Infusion Device into Superior Vena Cava, Percutaneous Approach (ICD-10-PCS; principal; 2017-09-07)
DX: E11.622 Type 2 diabetes mellitus with other skin ulcer (principal); E44.1 Mild protein-calorie malnutrition; L97.919 Non-pressure chronic ulcer of unspecified part of right lower leg with unspecified severity; J96.11 Chronic respiratory failure with hypoxia; E66.01 Morbid (severe) obesity due to excess calories; I27.20 Pulmonary hypertension, unspecified; Z68.43 Body mass index [BMI] 50.0-59.9, adult; L03.115 Cellulitis of right lower limb; D86.0 Sarcoidosis of lung; G89.4 Chronic pain syndrome; I89.0 Lymphedema, not elsewhere classified; J44.9 Chronic obstructive pulmonary disease, unspecified; R32 Unspecified urinary incontinence; Z79.52 Long term (current) use of systemic steroids; Z79.84 Long term (current) use of oral hypoglycemic drugs; Z79.891 Long term (current) use of opiate analgesic; Z79.899 Other long term (current) drug therapy; Z86.19 Personal history of other infectious and parasitic diseases; Z87.891 Personal history of nicotine dependence; Z91.81 History of falling; Z99.81 Dependence on supplemental oxygen; G47.33 Obstructive sleep apnea (adult) (pediatric); R25.2 Cramp and spasm
CPT/HCPCS: 36415; 36556; 71045; 76937; 77001; 80048; 80053; 80202; 83605; 85025; 87040; 87070; 87077; 87186; 87205; 94640; 94760; 96365; 96375; 99284

== ENCOUNTER 2017-09-28 17:07 | Emergency (ER) | payer OTHER ==
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
[2017-09-28 20:19] VITALS: BP 149/76; PULSE 93; RESP 16; TEMP 98.3
[2017-09-28] MEDS ORDERED: MORPHINE SULFATE 4MG/4ML SYRG IVP STA (20:47)
== END 2017-09-28 20:51 | disposition other institution (70) ==
LOC: EC 17:07
DX: M50.10 Cervical disc disorder with radiculopathy, unspecified cervical region (principal); Z87.891 Personal history of nicotine dependence; Z79.51 Long term (current) use of inhaled steroids; Z92.89 Personal history of other medical treatment
CPT/HCPCS: 99285; 96374; J2270

== ENCOUNTER 2017-10-15 16:15 | Emergency (ER) | payer OTHER ==
[2017-10-15] MEDS ORDERED: tiZANidine 4 MG TAB PO STA (16:53)
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
[2017-10-15] MEDS ORDERED: KETOROLAC 30 MG/ML 1 ML VIAL IVP SCH (18:00)
--- NOTE | 2017-10-15 18:12 | CT ---
EXAMINATION TYPE: CT cervical spine wo con DATE OF EXAM: 10/15/2017 COMPARISON: NONE HISTORY: 47-year-old female complains of neck pain with radiation to the right shoulder and arm. TECHNIQUE: Contiguous axial scanning of the local spine without IV contrast. Coronal and sagittal rec onstructions performed. CT DLP: 1788.9 mGycm Automated exposure control for dose reduction was used. FINDINGS: Retropharyngeal course of the ICAs. The right-sided central line present. Very large patient body habitus causes extensive artifact limiting detailed assessment of the bony an atomy. No obvious fracture is seen. Reversal of the normal cervical lordosis without malalignment. Assessment of the spinal canal is limited from C4 level and below due to the extensive artifacts. No bony spinal canal narrowing. There is mild uncovertebral joint arthropathy on the right at C4-C5 causing mild right neuroforaminal stenosis. Otherwise, no significant neural foraminal stenosis seen. IMPRESSION: EXTENSIVE ARTIFACTS FROM PATIENT'S LARGE BODY HABITUS. NO ACUTE FRACTURE OR MALALIGNMENT. SUGGESTION OF MILD RIGHT-SIDED NEURAL FORAMINAL NARROWING AT C4-C5.
[2017-10-15 18:30] VITALS: BP 131/66; PULSE 73; RESP 20; TEMP 99
== END 2017-10-15 19:18 | disposition other institution (70) ==
LOC: EC 16:15
DX: M48.8X2 Other specified spondylopathies, cervical region (principal); M99.71 Connective tissue and disc stenosis of intervertebral foramina of cervical region; Z87.891 Personal history of nicotine dependence; Z79.51 Long term (current) use of inhaled steroids; Z79.899 Other long term (current) drug therapy
CPT/HCPCS: 99285; 96374; 72125; J1885

== ENCOUNTER 2017-12-23 19:53 | Emergency (ER) | payer OTHER ==
[2017-12-23 20:05] VITALS: RESP 18
[2017-12-23] MEDS ORDERED: HYDROcodone/APAP 5-325MG 1 EACH TAB PO STA (20:30)
[2017-12-23] MEDS: cloNIDine HCL 0.1 MG TAB PO STA ×2 (20:33→20:39)
[2017-12-23] MEDS ORDERED: ONDANSETRON ODT 4 MG TAB PO STA (20:36)
[2017-12-23] MEDS ORDERED: AMOXIC-POT CLAV 875-125MG 1 EACH TAB PO STA (21:03)
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
[2017-12-23 21:38] VITALS: BP 127/90; PULSE 102; TEMP 97.3
== END 2017-12-23 22:08 | disposition home or self-care (01) ==
LOC: EC 19:53
DX: R04.0 Epistaxis (principal); M19.90 Unspecified osteoarthritis, unspecified site; Z87.891 Personal history of nicotine dependence; Z79.52 Long term (current) use of systemic steroids; Z79.51 Long term (current) use of inhaled steroids; Z79.899 Other long term (current) drug therapy; Z53.8 Procedure and treatment not carried out for other reasons
CPT/HCPCS: 30901; 99283

== ENCOUNTER 2018-01-20 13:15 | Inpatient (IN) | payer OTHER ==
[2018-01-20] MEDS ORDERED: SODIUM CHLORIDE 0.9% 1,000 ML IV STA (13:46)
[2018-01-20 14:01] LABS: Basophils % (A) 0 %; Eosinophils # (A) 0.1 k/uL (0-0.7); Eosinophils % (A) 1 %; HGB 12.8 gm/dL (11.4-16.0); Lymphocytes # (A) 1.9 k/uL (1.0-4.8); Lymphocytes % (A) 27 %; MCHC 32.8 g/dL (31.0-37.0); MCV 85.5 fL (80.0-100.0); Mean Platelet Volume 7.1; Monocytes # (A) 0.2 k/uL (0-1.0); Monocytes % (A) 3 %; Neutrophils # (A) 4.8 k/uL (1.3-7.7); Neutrophils % (A) 67 %; Platelet Count 266 k/uL (150-450); RBC 4.56 m/uL (3.80-5.40); RDW 15.5 % (11.5-15.5); WBC 7.1 k/uL (3.8-10.6)
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
[2018-01-20 14:08] LABS: Albumin 4.1 g/dL (3.5-5.0); Calcium 9.3 mg/dL (8.4-10.2); Magnesium 2.2 mg/dL (1.6-2.3); Phosphorus 3.6 mg/dL (2.5-4.5); Potassium 4.6 mmol/L (3.5-5.1); Total Bilirubin 0.5 mg/dL (0.2-1.3); Total Protein 6.4 g/dL (6.3-8.2)
[2018-01-20 14:12] LABS: INR 1.1 (<1.2); Prothrombin Time 10.8 sec (9.0-12.0)
[2018-01-20 14:25] LABS: Partial Thromboplastin Time 20.7 sec (22.0-30.0)
[2018-01-20 14:41] LABS: Appearance,Urine Cloudy (Clear); Bacteria,Urine Many /hpf; Bilirubin,Urine Negative (Negative); Blood,Urine Moderate (Negative); Color,Urine Yellow; Glucose,Urine (UA) Negative (Negative); Hyaline Casts,Urine 28 /lpf (0-2); Ketones,Urine Negative (Negative); Leukocyte Esterase,Urine Large (Negative); Mucus,Urine Rare /hpf; Nitrite,Urine Negative (Negative); PH, Urine 6.5 (5.0-8.0); Protein,Urine 1+ (Negative); Specific Gravity,Urine 1.016 (1.001-1.035); Squamous Epithelial Cell,Urine 1 /hpf (0-4); Urobilinogen,Urine <2.0 mg/dL (<2.0); WBC,Urine 51 /hpf (0-5)
[2018-01-20 14:42] LABS: Creatine Kinase MB 0.8 ng/mL (0.0-2.4)
[2018-01-20 14:57] LABS: Troponin I 0.038 ng/mL (0.000-0.034)
[2018-01-20] MEDS ORDERED: PIPERACILLIN-TAZOBACTAM 3.375 GM in DEXTROSE/WATER 1 50ML.BAG IVPB STA (15:17)
[2018-01-20] MEDS: IPRATROPIUM-ALBUTEROL 3 ML NEB INHALATION SCH ×2 (16:01→20:18)
[2018-01-20] MEDS ORDERED: ALBUTEROL NEBULIZED 2.5 MG/3 ML INHALATION PRN (17:40)
[2018-01-20] MEDS ORDERED: DICLOFENAC SODIUM GEL 100 GM TUBE TOPICAL PRN (17:40)
[2018-01-20] MEDS ORDERED: HYDROcodone/APAP 5-325MG 1 EACH TAB PO PRN (17:40)
[2018-01-20] MEDS: tiZANidine 4 MG TAB PO SCH (18:11)
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
[2018-01-20 19:55] LABS: Glucose,Whole Blood 243 mg/dL (75-99)
[2018-01-20 19:59] LABS: ABG Base Excess 17.3 mmol/L; ABG Oxygen Saturation 96.1 % (94-97); ABG PCO2 53 mmHg (35-45); ABG PH 7.49 (7.35-7.45); ABG PO2 77 mmHg (83-108); ABG TCO2 42 mmol/L (19-24)
[2018-01-20] MEDS ORDERED: IPRATROPIUM-ALBUTEROL 3 ML NEB INHALATION SCH (20:00)
[2018-01-20 20:04] LABS: ABG HCO3 41 mmol/L (21-25)
[2018-01-20] MEDS ORDERED: acetaZOLAMIDE 250 MG TAB PO ONE (20:17)
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
[2018-01-21] MEDS: GABAPENTIN 300 MG CAP PO SCH ×4 (00:23→22:34)
[2018-01-21] MEDS: POTASSIUM CHLORIDE ER 20 MEQ TAB.ER PO SCH ×7 (00:23→22:37)
[2018-01-21] MEDS: HEPARIN SODIUM,PORCINE 5,000 UNIT/ML 1 ML VIAL SQ SCH ×3 (00:23→22:38)
[2018-01-21] MEDS: tiZANidine 4 MG TAB PO SCH ×3 (00:30→12:08)
[2018-01-21] MEDS: FUROSEMIDE 40 MG TAB PO SCH ×4 (00:30→22:37)
[2018-01-21] MEDS: PIPERACILLIN-TAZOBACTAM 3.375 GM in DEXTROSE/WATER 1 50ML.BAG IVPB SCH ×2 (00:30→08:47)
[2018-01-21 08:14] LABS: Basophils % (A) 0 %; Eosinophils # (A) 0.1 k/uL (0-0.7); Eosinophils % (A) 2 %; HCT 37.1 % (34.0-46.0); HGB 11.8 gm/dL (11.4-16.0); Lymphocytes # (A) 1.7 k/uL (1.0-4.8); Lymphocytes % (A) 21 %; MCH 27.1 pg (25.0-35.0); MCHC 31.7 g/dL (31.0-37.0); MCV 85.5 fL (80.0-100.0); Mean Platelet Volume 6.4; Monocytes # (A) 0.4 k/uL (0-1.0); Monocytes % (A) 5 %; Neutrophils # (A) 5.5 k/uL (1.3-7.7); Neutrophils % (A) 70 %; Platelet Count 252 k/uL (150-450); RBC 4.34 m/uL (3.80-5.40); RDW 15.7 % (11.5-15.5); WBC 7.8 k/uL (3.8-10.6)
[2018-01-21] MEDS: BUDESONIDE 0.5 MG/2 ML NEBU INHALATION SCH ×2 (08:17→20:04)
[2018-01-21] MEDS: IPRATROPIUM-ALBUTEROL 3 ML NEB INHALATION SCH ×4 (08:17→20:04)
[2018-01-21 08:31] LABS: Albumin 3.8 g/dL (3.5-5.0); Calcium 8.8 mg/dL (8.4-10.2); Total Bilirubin 0.6 mg/dL (0.2-1.3)
[2018-01-21] MEDS: FLUCONAZOLE 100 MG TAB PO SCH (08:47)
[2018-01-21] MEDS: metFORMIN 500 MG TAB PO SCH ×2 (08:48→16:00)
[2018-01-21] MEDS: MAGNESIUM OXIDE 400 MG TAB PO SCH ×2 (08:48→16:01)
[2018-01-21] MEDS: predniSONE 10 MG TAB PO SCH (08:49)
[2018-01-21] MEDS: METHADONE 10 MG TAB PO SCH (08:51)
[2018-01-21] MEDS: METHADONE 5 MG TAB PO SCH (08:53)
[2018-01-21 08:57] LABS: Potassium 2.7 mmol/L (3.5-5.1)
[2018-01-21] MEDS ORDERED: CYCLOBENZAPRINE 10 MG TAB PO SCH (09:00)
[2018-01-21] MEDS ORDERED: METHADONE 10 MG TAB PO SCH (09:00)
[2018-01-21] MEDS ORDERED: Potassium Replacement Protocol 1 EACH MISC MISCELLANE PRN (09:06)
--- NOTE | 2018-01-21 13:18 | PN ---
PROGRESS NOTE DATE OF SERVICE: 01/21/2018 She was seen on January2017. She has been hemodynamically stable. She is sleepy but more arousable. She did wear a BiPAP last night. PHYSICAL EXAMINATION: On physical examination, blood pressure is 128/85, respiratory rate of 18, pulse 98, temperature 98.4. HEENT is unremarkable. Chest reveals decreased breath sounds with no wheeze. Cardiovascular system is S1, S2. Abdomen is soft. There is 1+ to 2+ pedal edema. LABORATORY DATA: Sodium is 127, potassium 2.7, chloride 76, bicarb 38, BUN 30, creatinine 1.17. Sodium has dropped slightly from 130. IMPRESSION: At this time is: 1. Sarcoidosis. 2. Obesity with obesity hypoventilation syndrome likely. 3. Hyponatremia. 4. Hypercarbic respiratory failure with some metabolic compensation. At this point in time, continue BiPAP. Watch the electrolytes. She had been given 1 dose of Diamox. Continue steroids, antibiotics regarding the UTI. Depending on how she does, we should make further changes to her care. MMODL / IJN: [id number] /
[2018-01-21] MEDS ORDERED: POTASSIUM CHLORIDE ER 20 MEQ TAB.ER PO STA (15:30)
--- NOTE | 2018-01-21 15:45 | P.PN ---
Subjective Progress Note Date: 01/21/18 This is a 47-year-old -Lao female patient of Dr. Dean [facility] [place] [facility] secondary to debility, from sarcoid as well as one single-legwith past medical history of the left thigh wound that was treated at the [facility] under the care of Dr. Hernandez /Dr. Gonzalez 02/08/2017, chronic lymphedema, osteoarthritis, spinal stenosis, pulmonary sarcoidosis followed by Dr. SHAHEED Elias currently on prednisone 80 mg daily. Patient has been treated for lymphedema in the outpatient setting with daily wraps which was effective but then changed to sequential compression that did not help her edema. She does have sarcoidosis followed by Dr. SHAHEED Elias and is home O2 dependent at 3 L nasal cannula.[facility] [place] [facility], we've been waiting for a brachial plexus MRI right shoulder secondary to weakness and upper extremity and chronic neck pain ever since she had herright Infante catheter placed 2017 by interventional radiology. We've sent her to [facility] no growth surgeon for which there is no cervical myelopathy, she presents to the emergency room secondary to increasingsleepiness and drowsiness, she currently has neurogenic bladder with indwelling Rodriguez catheter secondary to urinary retention, and urinary incontinence. Patient was treated with urinary tract infection ,for which she currently has been treated with cefuroxime for She had Morganella morganii 01/08/2018, resistant to cefuroxime timeamikacin and ampicillin and Zosyn Unasyn and aztreonam ceftezole when nitrofurantoin tetracycline . Antibiotic was later changed to ciprofloxacin and her muscle relaxants tizanidine was changed to baclofen as it has interaction with Cipro, however patient did not tolerate baclofen as she was more confused with a baclofen, baclofen was discontinued and was started on Norflex 1 week prior to admission, patient was sent to the emergency room secondary to increasing hypersomnia,of 24-hour duration, which is not her baseline, she was subsequently seen in the emergency room and was found to have pyuria carbon dioxide of 39, sodium of 1:30, chloride of 79troponin slightly elevated 0.038, lactic acid of 3.2, glucose of 166 creatinine of 1.1 from a baseline of 0.94. Patient is admitted with metabolic encephalopathy, hypersomnia, hypercarbia,in acute urinary trait tract infection with symptoms, chronic indwelling Rodriguez catheter secondary to neurogenic bladder 01/21 patient examined at bedside is more alert than yesterday. She did have trouble in the afternoon where the nurse had difficulty waking up the patient. Tizanidine stopped. Gabapentin reduced to 300 mg at bedtime. Continue [place] for pain control. Patient is unable to lift her shoulder. MRI cervical has been done as outpatient as per the records with no abnormality though MRI right shoulder is pending him to [facility] at the brachial plexus unknown etiology. Continues to be on 105 mg of methadone with [place] for intermittent pain. Dr. Hernandes consulted for possible evaluation of the neck pain on and new muscular weakness of the upper extremity and management of pain control Objective - Vital Signs Vital signs: Vital Signs Temp 97.4 F L 01/21/18 14:56 Pulse 70 01/21/18 14:56 Resp 16 01/21/18 14:56 BP 111/75 01/21/18 14:56 Pulse Ox 98 01/21/18 14:56 Intake & Output 01/20/18 01/21/18 01/21/18 18:59 06:59 18:59 Intake Total 750 Output Total 700 Balance 50 Weight 158.757 kg Intake: Intake, IV Titration 50 Amount Piperacillin-Tazobactam 3 50 .375 gm In Dextrose/Water 1 50ml.bag @ 12.5 mls/hr IVPB Q8HR [facility] Rx#: [id number] Oral 700 Output: Urine 700 Other: Voiding Method Indwelling Catheter Indwelling Catheter Indwelling Catheter - Exam - Constitutional General appearance: cooperative, morbidly obese - EENT Eyes: anicteric sclerae, EOMI, PERRLA, dentition normal, normal appearance ENT: NA/AT, normal oropharynx - Neck Neck: normal ROM - Respiratory Respiratory: bilateral: CTA, diminished, negative: dullness, rales, rhonchi - Cardiovascular Rhythm: regular Heart sounds: normal: S1, S2 Abnormal Heart Sounds: no systolic murmur, no diastolic murmur, no rub, no S3 Gallop, no S4 Gallop, no click, no other - Gastrointestinal General gastrointestinal: normal bowel sounds, soft - Integumentary Integumentary: decreased turgor, normal - Neurologic Neurologic: CNII-XII intact - Musculoskeletal Musculoskeletal: gait normal, strength equal bilaterally - Psychiatric Psychiatric: A&O x's 3, appropriate affect, intact judgment & insight - Labs CBC & Chem 7: 01/21/18 07:45 01/21/18 15:01 Labs: Abnormal Lab Results - Last 24 Hours (Table) 01/20/18 01/20/18 01/20/18 Range/Units 17:26 19:53 19:57 RDW (11.5-15.5) % ABG pH 7.49 H (7.35-7.45) ABG pCO2 53 H (35-45) mmHg ABG pO2 77 L (83-108) mmHg ABG HCO3 41 H* (21-25) mmol/L ABG Total CO2 42 H (19-24) mmol/L Sodium (137-145) mmol/L Potassium (3.5-5.1) mmol/L Chloride (98-107) mmol/L Carbon Dioxide (22-30) mmol/L BUN (7-17) mg/dL Creatinine (0.52-1.04) mg/dL Glucose (74-99) mg/dL POC Glucose (mg/dL) 243 H (75-99) mg/dL Plasma Lactic Acid Andrey 2.6 H* (0.7-2.0) mmol/L Total Protein (6.3-8.2) g/dL 01/21/18 01/21/18 01/21/18 Range/Units 07:45 07:45 09:18 RDW 15.7 H (11.5-15.5) % ABG pH (7.35-7.45) ABG pCO2 (35-45) mmHg ABG pO2 (83-108) mmHg ABG HCO3 (21-25) mmol/L ABG Total CO2 (19-24) mmol/L Sodium 127 L (137-145) mmol/L Potassium 2.7 L* 2.6 L* (3.5-5.1) mmol/L Chloride 76 L* (98-107) mmol/L Carbon Dioxide 38 H (22-30) mmol/L BUN 30 H (7-17) mg/dL Creatinine 1.17 H (0.52-1.04) mg/dL Glucose 171 H (74-99) mg/dL POC Glucose (mg/dL) (75-99) mg/dL Plasma Lactic Acid Andrey (0.7-2.0) mmol/L Total Protein 6.0 L (6.3-8.2) g/dL Microbiology - Last 24 Hours (Table) 01/20/18 14:27 Urine Culture - Preliminary Urine,Voided Assessment and Plan Plan: 1. metabolic encephalopathy with hypercarbia secondary to overmedication, obesity hypoventilation syndrome and acute urinary tract infection with chronic indwelling rodriguez for neurogenic bladder. has morganella last culture 01/08/18, multidrug resistant as mentioned. Switch to Cefotazidine per ID ,. The last urine culture sensitivity showed drug susceptibilities towards Zosyn, Bactrim, tobramycin, tigecycline, meropenem, Levaquin, gentamicin, Cipro, Rocephin, cefazolin. consult dr Rivera infectious disease. 2. Sarcoidosis, on chronic prednisone Under the care of Dr SHAHEED Elias. Patient is currently on prednisone 80 mg daily and albuterol nebulizer 4 times daily. 3. Chronic hypoxic hypercarbic respiratory failure on home O2 at 3 L nasal cannula. sleep apnea with obesity hypovwentilation syndrome is suspected but patient denied history of sleep apnea based on remote sleep study testing. .consuolt with dr Shaheed elias pulmonary. BIPAp when resting or napping 4. Chronic pain syndrome. Continue methadone 105 mg daily. 5. Diabetes mellitus type 2 with chemical hyperglycemia related to prednisone on metformin Accu-Cheks with NovoLog correctional scale 6. recurrent Dependent edema bilateral, with resolved wound right ulcer right lower extremity 7. Morbid obesity with BMI of 57. 8. neurogenic bladder with Urinary incontinence currently on indwelling rodriguez , unable to remediate this as patient has no control over her bladder and refuses diuretics without the rodriguez causing increased dependent edema secondary to noncompliance to diuretics. Continue on indwelling Rodriguez, would replace during this admission 8 Electrolyte abnormalities with hyponatremia, dilutional hyponatremia suspected , Lasix to be given 0.9 saline are 75-100 mL an hour, repeat electrolytes the morning 9. 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 Pathology for cervical stenosis or disc herniation, awaiting MRI of the brachial plexus right upper extremity we'll going to order for an MRI while in the hospital, it able to be performed with been awaiting for imaging studies since October 2017 10GI prophylaxis. Pepcid. 11 DVT prophylaxis. Heparin subcu. 12 Debility currently on a power chair/scooter, therapies will be obtained, patient able for transfers with impaired balance secondary to right lower extremity weakness. Cervical myelopathy ruled out based on last MRI imaging October 2017 follows with neurology neurosurgeon at [facility] 13 Chronic pain, on methadone 105 mg daily provided in the past by her previous pain doctor, currently on maintenance regimen no changes made and [place] for symptomatic pain neck and right upper extremity right leg 14Lumbar disc disease with history of sciatica alternating symptoms in the right lower leg or left lower leg on gabapentin 15. Chronic immunosuppressed state secondary to prednisone Discharge plan: Return to [facility] [place]
[2018-01-21 16:50] LABS: Appearance,Urine Cloudy (Clear); Bacteria,Urine Rare /hpf; Bilirubin,Urine Negative (Negative); Blood,Urine Moderate (Negative); Color,Urine Light Yellow; Glucose,Urine (UA) 2+ (Negative); Ketones,Urine Negative (Negative); Leukocyte Esterase,Urine Large (Negative); Nitrite,Urine Negative (Negative); PH, Urine 8.5 (5.0-8.0); Protein,Urine 1+ (Negative); RBC,Urine 49 /hpf (0-5); Specific Gravity,Urine 1.012 (1.001-1.035); Squamous Epithelial Cell,Urine 1 /hpf (0-4); Urobilinogen,Urine <2.0 mg/dL (<2.0)
[2018-01-21 21:15] LABS: Glucose,Whole Blood 195 mg/dL (75-99)
[2018-01-22] MEDS: FUROSEMIDE 40 MG TAB PO SCH ×3 (06:38→20:06)
[2018-01-22 07:07] LABS: Glucose,Whole Blood 195 mg/dL (75-99)
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
[2018-01-22] MEDS: BUDESONIDE 0.5 MG/2 ML NEBU INHALATION SCH ×2 (08:41→20:28)
[2018-01-22] MEDS: IPRATROPIUM-ALBUTEROL 3 ML NEB INHALATION SCH ×4 (08:41→20:28)
[2018-01-22] MEDS: INSULIN ASPART 100 UNIT/ML 1 ML 10 ML VIAL SQ SCH ×4 (09:19→21:54)
[2018-01-22] MEDS: FLUCONAZOLE 100 MG TAB PO SCH (09:20)
[2018-01-22] MEDS: HEPARIN SODIUM,PORCINE 5,000 UNIT/ML 1 ML VIAL SQ SCH ×2 (09:20→20:05)
[2018-01-22] MEDS: metFORMIN 500 MG TAB PO SCH ×2 (09:20→17:06)
[2018-01-22] MEDS: MAGNESIUM OXIDE 400 MG TAB PO SCH ×2 (09:20→17:06)
[2018-01-22] MEDS: METHADONE 10 MG TAB PO SCH (09:21)
[2018-01-22] MEDS: METHADONE 5 MG TAB PO SCH (09:22)
[2018-01-22] MEDS: POTASSIUM CHLORIDE ER 20 MEQ TAB.ER PO SCH ×6 (09:23→20:05)
[2018-01-22] MEDS: predniSONE 10 MG TAB PO SCH (09:23)
[2018-01-22 10:13] LABS: HCT 38.7 % (34.0-46.0); HGB 13.1 gm/dL (11.4-16.0); MCH 29.1 pg (25.0-35.0); MCHC 33.9 g/dL (31.0-37.0); MCV 85.7 fL (80.0-100.0); Mean Platelet Volume 6.3; Platelet Count 267 k/uL (150-450); RBC 4.52 m/uL (3.80-5.40); RDW 15.9 % (11.5-15.5); WBC 10.6 k/uL (3.8-10.6)
[2018-01-22 10:20] LABS: Calcium 9.5 mg/dL (8.4-10.2)
[2018-01-22 10:27] LABS: Potassium 2.9 mmol/L (3.5-5.1)
[2018-01-22] MEDS ORDERED: Potassium Replacement Protocol 1 EACH MISC MISCELLANE PRN (10:31)
[2018-01-22 12:40] LABS: Glucose,Whole Blood 217 mg/dL (75-99)
--- NOTE | 2018-01-22 16:32 | P.PN ---
Subjective Progress Note Date: 01/22/18 This is a 47-year-old -Chadian female patient of Dr. Dean [facility] secondary to debility, from sarcoid as well as one single-legwith past medical history of the left thigh wound that was treated at the [facility] under the care of Dr. Hernandez /Dr. Gonzalez 02/08/2017, chronic lymphedema, osteoarthritis, spinal stenosis, pulmonary sarcoidosis followed by Dr. SHAHEED Elias currently on prednisone 80 mg daily. Patient has been treated for lymphedema in the outpatient setting with daily wraps which was effective but then changed to sequential compression that did not help her edema. She does have sarcoidosis followed by Dr. SHAHEED Elias and is home O2 dependent at 3 L nasal cannula.[facility] [place] [facility], we've been waiting for a brachial plexus MRI right shoulder secondary to weakness and upper extremity and chronic neck pain ever since she had herright Inf[place] catheter placed 2017 by interventional radiology. We've sent her to [facility] no growth surgeon for which there is no cervical myelopathy, she presents to the emergency room secondary to increasingsleepiness and drowsiness, she currently has neurogenic bladder with indwelling Rodriguez catheter secondary to urinary retention, and urinary incontinence. Patient was treated with urinary tract infection ,for which she currently has been treated with cefuroxime for She had Morganella morganii 01/08/2018, resistant to cefuroxime timeamikacin and ampicillin and Zosyn Unasyn and aztreonam ceftezole when nitrofurantoin tetracycline . Antibiotic was later changed to ciprofloxacin and her muscle relaxants tizanidine was changed to baclofen as it has interaction with Cipro, however patient did not tolerate baclofen as she was more confused with a baclofen, baclofen was discontinued and was started on Norflex 1 week prior to admission, patient was sent to the emergency room secondary to increasing hypersomnia,of 24-hour duration, which is not her baseline, she was subsequently seen in the emergency room and was found to have pyuria carbon dioxide of 39, sodium of 1:30, chloride of 79troponin slightly elevated 0.038, lactic acid of 3.2, glucose of 166 creatinine of 1.1 from a baseline of 0.94. Patient is admitted with metabolic encephalopathy, hypersomnia, hypercarbia,in acute urinary trait tract infection with symptoms, chronic indwelling Rodriguez catheter secondary to neurogenic bladder 01/21 patient examined at bedside is more alert than yesterday. She did have trouble in the afternoon where the nurse had difficulty waking up the patient. Tizanidine stopped. Gabapentin reduced to 300 mg at bedtime. Continue [place] for pain control. Patient is unable to lift her shoulder. MRI cervical has been done as outpatient as per the records with no abnormality though MRI right shoulder is pending him to [facility] at the brachial plexus unknown etiology. Continues to be on 105 mg of methadone with [place] for intermittent pain. Dr. Hernandes consulted for possible evaluation of the neck pain on and new muscular weakness of the upper extremity and management of pain control 01/22 patient examined bedside. Neurology was consulted this morning, short Dr. Hernandes will consider tapering down the methadone. 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 Orthopedic associate will be consulted for shoulder pain and weakness. Patient would not be able to go for MRI due to her size. No further recommendation from neurology on pain medication. Joe the follow with Dr. Elias on tapering down prednisone for alternative for sarcoidosis Objective - Vital Signs Vital signs: Vital Signs Temp 98.2 F 01/22/18 15:00 Pulse 102 H 01/22/18 16:16 Resp 16 01/22/18 15:00 BP 151/105 01/22/18 15:00 Pulse Ox 95 01/22/18 15:00 Intake & Output 01/21/18 01/22/18 01/22/18 18:59 06:59 18:59 Intake Total 750 Output Total 700 900 Balance 50 -900 Intake: Intake, IV Titration 50 Amount Piperacillin-Tazobactam 3 50 .375 gm In Dextrose/Water 1 50ml.bag @ 12.5 mls/hr IVPB Q8HR [facility] Rx#: [id number] Oral 700 Output: Urine 700 900 Other: Voiding Method Indwelling Catheter Indwelling Catheter Indwelling Catheter # Voids 1 - Exam - Constitutional General appearance: cooperative, morbidly obese - EENT Eyes: anicteric sclerae, EOMI, PERRLA, dentition normal, normal appearance ENT: NA/AT, normal oropharynx - Neck Neck: normal ROM - Respiratory Respiratory: bilateral: CTA, diminished, negative: dullness, rales, rhonchi - Cardiovascular Rhythm: regular Heart sounds: normal: S1, S2 Abnormal Heart Sounds: no systolic murmur, no diastolic murmur, no rub, no S3 Gallop, no S4 Gallop, no click, no other - Gastrointestinal General gastrointestinal: normal bowel sounds, soft - Integumentary Integumentary: decreased turgor, normal - Neurologic Neurologic: CNII-XII intact - Musculoskeletal Musculoskeletal: gait normal, strength equal bilaterally - Psychiatric Psychiatric: A&O x's 3, appropriate affect, intact judgment & insight - Labs CBC & Chem 7: 01/22/18 09:35 01/22/18 09:35 Labs: Abnormal Lab Results - Last 24 Hours (Table) 01/21/18 01/21/18 01/22/18 Range/Units 16:20 21:12 07:04 RDW (11.5-15.5) % Sodium (137-145) mmol/L Potassium (3.5-5.1) mmol/L Chloride (98-107) mmol/L Carbon Dioxide (22-30) mmol/L BUN (7-17) mg/dL Glucose (74-99) mg/dL POC Glucose (mg/dL) 195 H 195 H (75-99) mg/dL Urine Appearance Cloudy H (Clear) Urine pH 8.5 H (5.0-8.0) Urine Protein 1+ H (Negative) Urine Glucose (UA) 2+ H (Negative) Urine Blood Moderate H (Negative) Ur Leukocyte Esterase Large H (Negative) Urine RBC 49 H (0-5) /hpf Urine WBC 353 H (0-5) /hpf Urine WBC Clumps Few H (None) /hpf Urine Bacteria Rare H (None) /hpf 01/22/18 01/22/18 01/22/18 Range/Units 09:35 09:35 12:39 RDW 15.9 H (11.5-15.5) % Sodium 131 L (137-145) mmol/L Potassium 2.9 L* (3.5-5.1) mmol/L Chloride 86 L (98-107) mmol/L Carbon Dioxide 34 H (22-30) mmol/L BUN 26 H (7-17) mg/dL Glucose 166 H (74-99) mg/dL POC Glucose (mg/dL) 217 H (75-99) mg/dL Urine Appearance (Clear) Urine pH (5.0-8.0) Urine Protein (Negative) Urine Glucose (UA) (Negative) Urine Blood (Negative) Ur Leukocyte Esterase (Negative) Urine RBC (0-5) /hpf Urine WBC (0-5) /hpf Urine WBC Clumps (None) /hpf Urine Bacteria (None) /hpf Microbiology - Last 24 Hours (Table) 01/20/18 14:27 Urine Culture - Preliminary Urine,Voided Gram Neg Bacilli 01/21/18 16:20 Urine Culture - Preliminary Urine,Clean Catch Assessment and Plan Plan: 1. metabolic encephalopathy with hypercarbia secondary to overmedication, obesity hypoventilation syndrome and acute urinary tract infection with chronic indwelling rodriguez for neurogenic bladder. has morganella last culture 01/08/18, multidrug resistant as mentioned. Switch to Cefotazidine per ID ,. The last urine culture sensitivity showed drug susceptibilities towards Zosyn, Bactrim, tobramycin, tigecycline, meropenem, Levaquin, gentamicin, Cipro, Rocephin, cefazolin. consult dr Rivera infectious disease. 2. Sarcoidosis, on chronic prednisone Under the care of Dr SHAHEED Elias. Patient is currently on prednisone 80 mg daily and albuterol nebulizer 4 times daily. 3. Chronic hypoxic hypercarbic respiratory failure on home O2 at 3 L nasal cannula. sleep apnea with obesity hypovwentilation syndrome is suspected but patient denied history of sleep apnea based on remote sleep study testing. .consuolt with dr Shaheed elias pulmonary. BIPAp when resting or napping 4. Chronic pain syndrome. Continue methadone 105 mg daily. 5. Diabetes mellitus type 2 with chemical hyperglycemia related to prednisone on metformin Accu-Cheks with NovoLog correctional scale 6. recurrent Dependent edema bilateral, with resolved wound right ulcer right lower extremity 7. Morbid obesity with BMI of 57. 8. neurogenic bladder with Urinary incontinence currently on indwelling rodriguez , unable to remediate this as patient has no control over her bladder and refuses diuretics without the rodriguez causing increased dependent edema secondary to noncompliance to diuretics. Continue on indwelling Rodriguez, would replace during this admission 8 Electrolyte abnormalities with hyponatremia, dilutional hyponatremia suspected , Lasix to be given 0.9 saline are 75-100 mL an hour, repeat electrolytes the morning 9. 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 Pathology for cervical stenosis or disc herniation, awaiting MRI of the brachial plexus right upper extremity we'll going to order for an MRI while in the hospital, it able to be performed with been awaiting for imaging studies since October 2017 10GI prophylaxis. Pepcid. 11 DVT prophylaxis. Heparin subcu. 12 Debility currently on a power chair/scooter, therapies will be obtained, patient able for transfers with impaired balance secondary to right lower extremity weakness. Cervical myelopathy ruled out based on last MRI imaging October 2017 follows with neurology neurosurgeon at [facility] 13 Chronic pain, on methadone 105 mg daily provided in the past by her previous pain doctor, currently on maintenance regimen no changes made and [place] for symptomatic pain neck and right upper extremity right leg 14Lumbar disc disease with history of sciatica alternating symptoms in the right lower leg or left lower leg on gabapentin 15. Chronic immunosuppressed state secondary to prednisone Discharge plan: Return to [facility]
[2018-01-22 16:52] LABS: Glucose,Whole Blood 334 mg/dL (75-99)
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
--- NOTE | 2018-01-22 17:11 | XR ---
EXAMINATION TYPE: XR shoulder complete RT DATE OF EXAM: 01/22/2018 COMPARISON: NONE HISTORY: 47-year-old female with shoulder pain TECHNIQUE: 3 views FINDINGS: Right-sided chest injection catheter is present. Tip in the expected region of the cavoatrial junctio n. AC joint intact. Subacromial space preserved. Small delineation to the greater tuberosity. No acut e fracture, subluxation, or dislocation seen. IMPRESSION: No acute osseous abnormality seen.
[2018-01-22 17:49] LABS: C Reactive Protein 42.3 mg/L (<10.0); Potassium 3.9 mmol/L (3.5-5.1)
--- NOTE | 2018-01-22 19:04 | PN ---
PROGRESS NOTE DATE OF SERVICE: 01/22/2018 She was seen again on 01/22/2018. She is sleepy but arousable and has been using BiPAP. She is lying in bed. She does not seem to be in respiratory distress. On physical examination, respiratory rate is 16, pulse of 103, temperature 98.2, blood pressure 151/105, O2 saturation on room air is 95%. HEENT reveals pupils that are equal. Chest reveals decreased breath sounds. Cardiovascular: Reveals an S1, S2. Abdomen soft. There is no edema. IMPRESSION: 1. Sarcoidosis. 2. Recently hypoventilation syndrome . 3. Urinary tract infection with resistant organisms. RECOMMENDATIONS: Keep her on BiPAP. Continue her on high-dose steroids for her sarcoidosis. Continue antibiotics per ID. Keep her on GI and DVT prophylaxis. The prognosis at this time is guarded. MMCHIPL / SHAYN: [id number] /
[2018-01-22] MEDS: GABAPENTIN 300 MG CAP PO SCH (20:05)
--- NOTE | 2018-01-23 01:31 | PN ---
PROGRESS NOTE DATE OF SERVICE: 01/22/2018. REASON FOR FOLLOWUP VISIT: Urinary tract infection. INTERVAL HISTORY: The patient is afebrile. She is more awake and alert today. She is breathing comfortably. Denies significant chest pain or cough. No abdominal pain. No diarrhea. EXAMINATION: Blood pressure 151/105 with a pulse of 103, temperature 98.2, she is 95% on room air. GENERAL DESCRIPTION: A middle aged female, lying in bed in no distress. RESPIRATORY SYSTEM: Unlabored breathing. Clear to auscultation anteriorly. HEART: S1, S2. Regular rate and rhythm. ABDOMEN: Soft, no tenderness. LABS: Hemoglobin 13.1, white count 10.6, BUN of 26, creatinine 0.93. Urine with gram- negative. DIAGNOSTIC IMPRESSION AND PLAN: Patient with gram-negative urinary tract infection. Her Lopez catheter has been changed. The patient is currently on Fortaz, will be continued, adjusting it further on the basis of the culture report. Continue supportive care. MMODL / IJN: [id number] /
[2018-01-23] MEDS: FUROSEMIDE 40 MG TAB PO SCH ×3 (06:15→22:04)
[2018-01-23 08:08] LABS: Glucose,Whole Blood 167 mg/dL (75-99)
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
[2018-01-23] MEDS: BUDESONIDE 0.5 MG/2 ML NEBU INHALATION SCH ×2 (08:57→19:55)
[2018-01-23] MEDS: IPRATROPIUM-ALBUTEROL 3 ML NEB INHALATION SCH ×4 (08:57→19:55)
[2018-01-23] MEDS: INSULIN ASPART 100 UNIT/ML 1 ML 10 ML VIAL SQ SCH ×4 (09:08→22:03)
[2018-01-23] MEDS: METHADONE 10 MG TAB PO SCH ×3 (09:10→13:25)
[2018-01-23] MEDS: METHADONE 5 MG TAB PO SCH (09:15)
[2018-01-23] MEDS: metFORMIN 500 MG TAB PO SCH ×2 (09:16→17:34)
[2018-01-23] MEDS: HEPARIN SODIUM,PORCINE 5,000 UNIT/ML 1 ML VIAL SQ SCH ×2 (09:16→20:20)
[2018-01-23] MEDS: POTASSIUM CHLORIDE ER 20 MEQ TAB.ER PO SCH ×3 (09:17→20:21)
[2018-01-23] MEDS: predniSONE 10 MG TAB PO SCH (09:17)
[2018-01-23] MEDS: METOLAZONE 2.5 MG TAB PO SCH (09:17)
[2018-01-23] MEDS: FLUCONAZOLE 100 MG TAB PO SCH (09:18)
[2018-01-23] MEDS: MAGNESIUM OXIDE 400 MG TAB PO SCH ×2 (09:18→17:35)
[2018-01-23] MEDS: ONDANSETRON ODT 4 MG TAB PO PRN ×2 (10:04→18:00)
[2018-01-23 11:38] LABS: Hemoglobin A1C 8.5 % (4.0-6.0)
--- NOTE | 2018-01-23 12:43 | P.PN ---
Subjective Progress Note Date: 01/23/18 Interval history: 01/23/2018 patient is being seen examined and evaluated today on rounds. Patient has more arousable today. She is lying in bed on supplemental oxygen via nasal cannula. She did utilize BiPAP overnight. She is not in any sort of respiratory distress. She does have shortness of breath with exertion and activity. She states she has a chronic cough. Occasionally has some sputum production. All labs and reports have been reviewed. Afebrile no further complaints. Objective - Vital Signs Vital signs: Vital Signs Temp 98.3 F 01/23/18 07:00 Pulse 102 H 01/23/18 12:30 Resp 23 01/23/18 07:00 BP 162/99 01/23/18 07:00 Pulse Ox 98 01/23/18 07:00 Intake & Output 01/22/18 01/23/18 01/23/18 18:59 06:59 18:59 Intake Total 100 Output Total 1100 50 Balance -1100 50 Intake: Oral 100 Output: Urine 1100 50 Other: Voiding Method Indwelling Catheter Indwelling Catheter - Exam GENERAL EXAM: Alert, obese, comfortable in no apparent distress. HEAD: Normocephalic. EYES: Normal reaction of pupils, equal size. NOSE: Clear with pink turbinates. THROAT: No erythema or exudates. NECK: No masses, no JVD. CHEST: No chest wall deformity. LUNGS: Decreased breath sounds with faint expiratory wheeze CVS: S1 and S2 normal with no audible mumurs, regular rhythm. ABDOMEN: No hepatosplenomegaly, normal bowel sounds, no guarding or rigidity. EXTREMITIES: No edema noted, pedal pulses palpable. CENTRAL NERVOUS SYSTEM: No focal deficits, tone is normal in all 4 extremities. - Labs CBC & Chem 7: 01/22/18 09:35 01/22/18 17:22 Labs: Abnormal Lab Results - Last 24 Hours (Table) 01/21/18 01/22/18 01/22/18 Range/Units 07:45 12:39 16:50 ESR (0-20) mm/hr POC Glucose (mg/dL) 217 H 334 H (75-99) mg/dL Hemoglobin A1c 8.5 H (4.0-6.0) % C-Reactive Protein (<10.0) mg/L 01/22/18 01/22/18 01/23/18 Range/Units 17:22 17:22 08:04 ESR 31 H (0-20) mm/hr POC Glucose (mg/dL) 167 H (75-99) mg/dL Hemoglobin A1c (4.0-6.0) % C-Reactive Protein 42.3 H (<10.0) mg/L Microbiology - Last 24 Hours (Table) 01/21/18 16:20 Urine Culture - Preliminary Urine,Clean Catch Group D Enterococcus Assessment and Plan Assessment: Assessment Sarcoidosis Acute on chronic hypoxic respiratory failure with component of hypercarbia Obesity Hypoventilation syndrome UTI with resistant organism Metabolic encephalopathy Neurogenic bladder with chronic catheter Chronic pain syndrome Diabetes mellitus type 2 Morbid obesity Electrolyte imbalances Medical debility Plan Medications have been reviewed and will be continued as ordered. BiPAP at night and when necessary Continue with pulmonary hygiene, coughing and deep breathing exercises, and supportive care. Supplemental oxygen to maintain oxygen saturations of 92% or better. Continue nebulizer treatments. Neurology and infectious disease on consult Continue to monitor and correct electrolytes Weight loss recommended GI and DVT prophylaxis. Increase activity as tolerated, PT and OT We will continue to monitor labs/results and adjust treatment as necessary. Further recommendations pending. I performed an examination of the patient and discussed their management with the nurse practitioner. I have reviewed the nurse practitioner's note and agree with the documented findings and plan of care.
[2018-01-23 12:58] LABS: Glucose,Whole Blood 184 mg/dL (75-99)
[2018-01-23 13:54] VITALS: BMI 50.2
--- NOTE | 2018-01-23 16:35 | P.PN ---
Subjective Progress Note Date: 01/23/18 Principal diagnosis: Patient is a 47-year-old -[place] female who is being followed by the neurology service for right upper extremity neuropathy. Patient has significant medical history including sarcoidosis for which she is on chronic prednisone medication, diabetes mellitus, chronic pain syndrome, morbid obesity , debility, and history of neurogenic bladder with chronic urinary catheter. Patient continues to have right upper extremity pain and numbness. Patient has movement distal to the elbow. Patient states she cannot move her shoulder. Plans for MRI of the cervical spine and right shoulder have been difficult to make due to patient body habitus it is difficult to find it open MRI. It is my understanding patient has appointment later this month for open MRI to be done at [facility]. Patient is on methadone 105 mg daily which could be contributing to her somnolence. Patient is mostly bedbound and has a power scooter to get around. Orthopedic consultation noted. At the time of my evaluation, patient is resting comfortably in bed and appears to be in no acute distress. Objective - Vital Signs Vital signs: Vital Signs Temp 98.5 F 01/23/18 15:00 Pulse 114 H 01/23/18 16:20 Resp 20 01/23/18 15:00 BP 133/88 01/23/18 15:00 Pulse Ox 99 01/23/18 15:00 Intake & Output 01/22/18 01/23/18 01/23/18 18:59 06:59 18:59 Intake Total 100 560 Output Total 1100 50 Balance -1100 50 560 Weight 158.757 kg Intake: Intake, IV Titration 200 Amount cefTAZidime 2 gm In 200 Sodium Chloride 0.9% 100 ml @ 100 mls/hr IVPB Q8HR [facility] Rx#:[id number] Oral 100 360 Output: Urine 1100 50 Other: Voiding Method Indwelling Catheter Indwelling Catheter Indwelling Catheter - Exam PHYSICAL EXAM: GENERAL APPEARANCE: Patient is an obese -Sloven[place] female who appears to be in no acute distress. HEENT: Normocephalic, atraumatic, no facial asymmetry is seen. Neck is supple with no masses felt. CARDIOVASCULAR: Regular rate and rhythm. ABDOMEN: Nontender, nondistended. EXTREMITIES: Show bilateral edema but no clubbing. NEUROLOGICAL EXAM: Patient is awake, alert, and oriented 3. Speech and language are normal. Strength is 5-/5 in left upper extremity and 3/5 in all other extremities. Sensory deficit decreased to distal lower extremities. No facial asymmetry seen on cranial nerve testing. No tremors or seizure-like activity noted. - Labs CBC & Chem 7: 01/22/18 09:35 01/22/18 17:22 Labs: Abnormal Lab Results - Last 24 Hours (Table) 01/21/18 01/22/18 01/22/18 Range/Units 07:45 16:50 17:22 ESR 31 H (0-20) mm/hr POC Glucose (mg/dL) 334 H (75-99) mg/dL Hemoglobin A1c 8.5 H (4.0-6.0) % C-Reactive Protein (<10.0) mg/L 01/22/18 01/23/18 01/23/18 Range/Units 17:22 08:04 12:53 ESR (0-20) mm/hr POC Glucose (mg/dL) 167 H 184 H (75-99) mg/dL Hemoglobin A1c (4.0-6.0) % C-Reactive Protein 42.3 H (<10.0) mg/L Microbiology - Last 24 Hours (Table) 01/21/18 16:20 Urine Culture - Preliminary Urine,Clean Catch Group D Enterococcus Assessment and Plan Plan: Impression: 1. Acute on chronic urinary tract infection 2. Sarcoidosis. 3. Altered mental status 4. Debility, chronic 5. Right upper extremity weakness 6. Obesity 7. Chronic pain syndrome 8. History of neurogenic bladder, chronic indwelling catheter Recommendation: Patient is complaining of right shoulder pain and inability to hold her head up. On exam, I felt patient is not exerting appropriate effort. Patient has diffuse pain to the right shoulder down to mid upper arm. An MRI of the cervical spine would be ideal, however, patient will need an open MRI to have this done. Patient did have a CT of the cervical spine done in September 2017 which showed mild right-sided neural foraminal narrowing at C4-C5. Patient has normal movement from the elbow down on the right. Patient will need nerve conduction study/EMG of upper extremities in the outpatient clinic. Orthopedic consult noted. Patient may benefit from cervical epidurals if MRI of the cervical spine shows disc disease causing neural foraminal narrowing. Patient x -ray of the right shoulder showed normal acromioclavicular joint, normal subacromial and no acute fracture, subluxation, or dislocation was seen. Patient states she has had spinal injections in the past with no success. A spinal cord stimulator may be an option down the road. As for patient's altered mental status, I agree with lowering medications that contributed to patient's somnolence. Methadone will be lowered to 95 mg per day and should be continued to be tapered by 10 mg per month. Patient has been on methadone for quite some time. Pain medication including methadone can be adjusted in the outpatient setting. Methadone can be weaned monthly while adjusting other oral pain medication. Any further recommendations can be made once the MRI of the shoulder and the cervical spine has been completed. I will continue to follow with you on an as-needed basis. Feel free to call with any questions or concerns. I performed an examination of the patient and discussed the management with the [employer] TRAINING INSTRUCTOR. I have reviewed the [employer] TRAINING INSTRUCTOR notes and agree with the findings and plan of care.
[2018-01-23 17:24] LABS: Glucose,Whole Blood 235 mg/dL (75-99)
[2018-01-23] MEDS: GABAPENTIN 300 MG CAP PO SCH (20:20)
[2018-01-23 21:59] LABS: Glucose,Whole Blood 167 mg/dL (75-99)
--- NOTE | 2018-01-24 00:02 | PN ---
PROGRESS NOTE DATE OF SERVICE: 01/23/2018. REASON FOR FOLLOWUP VISIT: Catheter-associated urinary tract infection. INTERVAL HISTORY: The patient is afebrile. She is more awake and alert. Denies having any chest pain. Occasional cough. No abdominal pain. No diarrhea. The patient is constipated. EXAMINATION: Blood pressure 153/88, pulse 103, temperature 98.5, she is 95% on 2 liters nasal cannula. GENERAL DESCRIPTION: An elderly female lying in bed in no distress. RESPIRATORY SYSTEM: Unlabored breathing. Clear to auscultation anteriorly. HEART: S1, S2. Regular rate and rhythm. ABDOMEN: Soft, no tenderness. LABS: Urine with pseudomonas aeruginosa, sensitive to [place] which the patient is on. showing enterococcus species. DIAGNOSTIC IMPRESSION AND PLAN: Patient with catheter-associated urinary tract infection. Initial culture positive for pseudomonas which is sensitive to [place] which the patient is on. Culture showing enterococcus. Antibiotic could be adjusted to Rocephin which would cover both the enterococcus as well as the pseudomonas. Discharge will depend upon the sensitivities. Continue supportive care. MMODL / IJN: [id number] /
[2018-01-24] MEDS ORDERED: PIPERACILLIN-TAZOBACTAM 3.375 GM in DEXTROSE/WATER 1 50ML.BAG IVPB SCH (01:00)
[2018-01-24] MEDS: FUROSEMIDE 40 MG TAB PO SCH ×3 (06:27→20:43)
[2018-01-24 07:39] LABS: Glucose,Whole Blood 130 mg/dL (75-99)
[2018-01-24] MEDS: IPRATROPIUM-ALBUTEROL 3 ML NEB INHALATION SCH ×4 (07:45→20:55)
[2018-01-24] MEDS: BUDESONIDE 0.5 MG/2 ML NEBU INHALATION SCH ×2 (07:45→20:55)
[2018-01-24 07:47] LABS: Basophils % (A) 0 %; Eosinophils # (A) 0.1 k/uL (0-0.7); Eosinophils % (A) 1 %; HCT 39.4 % (34.0-46.0); HGB 12.5 gm/dL (11.4-16.0); Lymphocytes # (A) 2.8 k/uL (1.0-4.8); Lymphocytes % (A) 24 %; MCH 27.6 pg (25.0-35.0); MCHC 31.7 g/dL (31.0-37.0); Mean Platelet Volume 6.6; Monocytes # (A) 0.5 k/uL (0-1.0); Monocytes % (A) 4 %; Neutrophils # (A) 8.3 k/uL (1.3-7.7); Neutrophils % (A) 69 %; Platelet Count 294 k/uL (150-450); RBC 4.53 m/uL (3.80-5.40); RDW 15.8 % (11.5-15.5); WBC 11.9 k/uL (3.8-10.6)
[2018-01-24] MEDS: INSULIN ASPART 100 UNIT/ML 1 ML 10 ML VIAL SQ SCH ×4 (07:58→20:48)
[2018-01-24 08:10] LABS: Albumin 4.1 g/dL (3.5-5.0); Calcium 9.8 mg/dL (8.4-10.2); Potassium 3.5 mmol/L (3.5-5.1); Total Bilirubin 0.6 mg/dL (0.2-1.3); Total Protein 6.6 g/dL (6.3-8.2)
[2018-01-24] MEDS: metFORMIN 500 MG TAB PO SCH ×2 (09:20→18:26)
[2018-01-24] MEDS: POTASSIUM CHLORIDE ER 20 MEQ TAB.ER PO SCH ×3 (09:20→20:43)
[2018-01-24] MEDS: FLUCONAZOLE 100 MG TAB PO SCH (09:20)
[2018-01-24] MEDS: MAGNESIUM OXIDE 400 MG TAB PO SCH ×2 (09:20→15:42)
[2018-01-24] MEDS: HEPARIN SODIUM,PORCINE 5,000 UNIT/ML 1 ML VIAL SQ SCH ×2 (09:20→20:43)
[2018-01-24] MEDS: predniSONE 10 MG TAB PO SCH (09:21)
--- NOTE | 2018-01-24 11:18 | P.PN ---
Subjective Progress Note Date: 01/24/18 Interval history: 01/23/2018 patient is being seen examined and evaluated today on rounds. Patient has more arousable today. She is lying in bed on supplemental oxygen via nasal cannula. She did utilize BiPAP overnight. She is not in any sort of respiratory distress. She does have shortness of breath with exertion and activity. She states she has a chronic cough. Occasionally has some sputum production. All labs and reports have been reviewed. Afebrile no further complaints. 01/24/2018patient is being seen examined and evaluated today on rounds. She is resting up in bed on supplemental oxygen. She did have urine cultures come back positive for VRE and pseudomonas. Infectious disease on consult. She is also being seen by orthopedics, they are recommending an open MRI related to repeat CT and possible spinal cord stimulator later down the road. Her methadone is being weaned down slowly as she has been on this for quite some time. She did utilize BiPAP overnight, and with naps, she tolerates that well. She is using 3 L during the day. Afebrile no further complaints Objective - Vital Signs Vital signs: Vital Signs Temp 96.9 F L 01/24/18 06:34 Pulse 102 H 01/24/18 07:57 Resp 16 01/24/18 06:34 BP 135/98 01/24/18 06:34 Pulse Ox 98 01/24/18 06:34 Intake & Output 01/23/18 01/24/18 01/24/18 18:59 06:59 18:59 Intake Total 560 200 Output Total 550 650 Balance 10 -450 Weight 158.757 kg Intake: Intake, IV Titration 200 Amount cefTAZidime 2 gm In 200 Sodium Chloride 0.9% 100 ml @ 100 mls/hr IVPB Q8HR [facility] Rx#:[id number] Oral 360 200 Output: Urine 550 650 Other: Voiding Method Indwelling Catheter Indwelling Catheter # Voids 1 # Bowel Movements 0 - Exam GENERAL EXAM: Alert, obese, comfortable in no apparent distress. HEAD: Normocephalic. EYES: Normal reaction of pupils, equal size. NOSE: Clear with pink turbinates. THROAT: No erythema or exudates. NECK: No masses, no JVD. CHEST: No chest wall deformity. LUNGS: Decreased breath sounds with faint expiratory wheeze CVS: S1 and S2 normal with no audible mumurs, regular rhythm. ABDOMEN: No hepatosplenomegaly, normal bowel sounds, no guarding or rigidity. EXTREMITIES: No edema noted, pedal pulses palpable. CENTRAL NERVOUS SYSTEM: No focal deficits, tone is normal in all 4 extremities. - Labs CBC & Chem 7: 18 07:28 0818 07:28 Labs: Abnormal Lab Results - Last 24 Hours (Table) 01/21/18 01/23/18 01/23/18 Range/Units 07:45 12:53 17:20 WBC (3.8-10.6) k/uL RDW (11.5-15.5) % Neutrophils # (1.3-7.7) k/uL Sodium (137-145) mmol/L Chloride (98-107) mmol/L Carbon Dioxide (22-30) mmol/L BUN (7-17) mg/dL Creatinine (0.52-1.04) mg/dL Glucose (74-99) mg/dL POC Glucose (mg/dL) 184 H 235 H (75-99) mg/dL Hemoglobin A1c 8.5 H (4.0-6.0) % AST (14-36) U/L ALT (9-52) U/L 01/23/18 01/24/18 01/24/18 Range/Units 21:53 07:28 07:28 WBC 11.9 H (3.8-10.6) k/uL RDW 15.8 H (11.5-15.5) % Neutrophils # 8.3 H (1.3-7.7) k/uL Sodium 133 L (137-145) mmol/L Chloride 87 L (98-107) mmol/L Carbon Dioxide 34 H (22-30) mmol/L BUN 25 H (7-17) mg/dL Creatinine 1.21 H (0.52-1.04) mg/dL Glucose 130 H (74-99) mg/dL POC Glucose (mg/dL) 167 H (75-99) mg/dL Hemoglobin A1c (4.0-6.0) % AST 39 H (14-36) U/L ALT 73 H (9-52) U/L 01/24/18 Range/Units 07:36 WBC (3.8-10.6) k/uL RDW (11.5-15.5) % Neutrophils # (1.3-7.7) k/uL Sodium (137-145) mmol/L Chloride (98-107) mmol/L Carbon Dioxide (22-30) mmol/L BUN (7-17) mg/dL Creatinine (0.52-1.04) mg/dL Glucose (74-99) mg/dL POC Glucose (mg/dL) 130 H (75-99) mg/dL Hemoglobin A1c (4.0-6.0) % AST (14-36) U/L ALT (9-52) U/L Microbiology - Last 24 Hours (Table) 01/20/18 14:27 Urine Culture - Final Urine,Voided Pseudomonas aeruginosa Enterococcus faecium VRE 01/21/18 16:20 Urine Culture - Final Urine,Clean Catch Enterococcus faecium VRE Assessment and Plan Assessment: Assessment Sarcoidosis Acute on chronic hypoxic respiratory failure with component of hypercarbia Obesity Hypoventilation syndrome UTI with resistant organism Metabolic encephalopathy Neurogenic bladder with chronic catheter Chronic pain syndrome Diabetes mellitus type 2 Morbid obesity Electrolyte imbalances Medical debility Plan Medications have been reviewed and will be continued as ordered. Agree with weaning down her methadone BiPAP at night and when necessary Continue with pulmonary hygiene, coughing and deep breathing exercises, and supportive care. Supplemental oxygen to maintain oxygen saturations of 92% or better. Continue nebulizer treatments. Neurology and infectious disease on consult Continue to monitor and correct electrolytes Weight loss recommended GI and DVT prophylaxis. Increase activity as tolerated, PT and OT We will continue to monitor labs/results and adjust treatment as necessary. Further recommendations pending. I performed an examination of the patient and discussed their management with the nurse practitioner. I have reviewed the nurse practitioner's note and agree with the documented findings and plan of care.
[2018-01-24 11:30] LABS: Glucose,Whole Blood 153 mg/dL (75-99)
[2018-01-24] MEDS: METHADONE 10 MG TAB PO SCH (11:44)
--- NOTE | 2018-01-24 15:24 | P.PN ---
Subjective Progress Note Date: 01/23/18 This is a 47-year-old -[place] female patient of Dr. Dean currently [facility] [place] [facility] secondary to debility, from sarcoid as well as one single-legwith past medical history of the left thigh wound that was treated at the wound healing Center under the care of Dr. Hernandez /Dr. Gonzalez 02/08/2017, chronic lymphedema, osteoarthritis, spinal stenosis, pulmonary sarcoidosis followed by Dr. KASIE Elias currently on prednisone 80 mg daily. Patient has been treated for lymphedema in the outpatient setting with daily wraps which was effective but then changed to sequential compression that did not help her edema. She does have sarcoidosis followed by Dr. KASIE Elias and is home O2 dependent at 3 L nasal cannula.[facility] [place] [facility], we've been waiting for a brachial plexus MRI right shoulder secondary to weakness and upper extremity and chronic neck pain ever since she had herright Infante catheter placed 2017 by interventional radiology. We've sent her to [facility] no growth surgeon for which there is no cervical myelopathy, she presents to the emergency room secondary to increasingsleepiness and drowsiness, she currently has neurogenic bladder with indwelling Rodriguez catheter secondary to urinary retention, and urinary incontinence. Patient was treated with urinary tract infection ,for which she currently has been treated with cefuroxime for She had Morganella morganii 01/08/2018, resistant to cefuroxime timeamikacin and ampicillin and Zosyn Unasyn and aztreonam ceftezole when nitrofurantoin tetracycline . Antibiotic was later changed to ciprofloxacin and her muscle relaxants tizanidine was changed to baclofen as it has interaction with Cipro, however patient did not tolerate baclofen as she was more confused with a baclofen, baclofen was discontinued and was started on Norflex 1 week prior to admission, patient was sent to the emergency room secondary to increasing hypersomnia,of 24-hour duration, which is not her baseline, she was subsequently seen in the emergency room and was found to have pyuria carbon dioxide of 39, sodium of 1:30, chloride of 79troponin slightly elevated 0.038, lactic acid of 3.2, glucose of 166 creatinine of 1.1 from a baseline of 0.94. Patient is admitted with metabolic encephalopathy, hypersomnia, hypercarbia,in acute urinary trait tract infection with symptoms, chronic indwelling Rodriguez catheter secondary to neurogenic bladder 01/21 patient examined at bedside is more alert than yesterday. She did have trouble in the afternoon where the nurse had difficulty waking up the patient. Tizanidine stopped. Gabapentin reduced to 300 mg at bedtime. Continue [place] for pain control. Patient is unable to lift her shoulder. MRI cervical has been done as outpatient as per the records with no abnormality though MRI right shoulder is pending him to [facility] at the brachial plexus unknown etiology. Continues to be on 105 mg of methadone with [place] for intermittent pain. Dr. Hernandes consulted for possible evaluation of the neck pain on and new muscular weakness of the upper extremity and management of pain control 01/22 patient examined bedside. Neurology was consulted this morning, short Dr. Hernandes will consider tapering down the methadone. 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 Orthopedic associate will be consulted for shoulder pain and weakness. Patient would not be able to go for MRI due to her size. No further recommendation from neurology on pain medication. Joe the follow with Dr. Elias on tapering down prednisone for alternative for sarcoidosis 01/23: We will plan to schedule patient for an MRI of the cervical spine and brachial plexus to be done at [facility] with weight limit of 500 pounds. Nursing held her methadone this morning which is at 105 mg due to sedation.. Discussed with Dr. Hernandes and will decrease to 95 mg. She has been afebrile. Patient is followed by Dr. Colon and we're waiting urine culture reports. Objective - Vital Signs Vital signs: Vital Signs Temp 98.5 F 01/23/18 15:00 Pulse 114 H 01/23/18 15:00 Resp 20 01/23/18 15:00 BP 133/88 01/23/18 15:00 Pulse Ox 99 01/23/18 15:00 Intake & Output 01/22/18 01/23/18 01/23/18 18:59 06:59 18:59 Intake Total 100 460 Output Total 1100 50 Balance -1100 50 460 Weight 158.757 kg Intake: Intake, IV Titration 100 Amount cefTAZidime 2 gm In 100 Sodium Chloride 0.9% 100 ml @ 100 mls/hr IVPB Q8HR [facility] Rx#:[id number] Oral 100 360 Output: Urine 1100 50 Other: Voiding Method Indwelling Catheter Indwelling Catheter Indwelling Catheter - Exam General appearance: cooperative, morbidly obese - EENT Eyes: anicteric sclerae, EOMI, PERRLA, dentition normal, normal appearance ENT: NA/AT, normal oropharynx - Neck Neck: normal ROM - Respiratory Respiratory: bilateral: CTA, diminished, negative: dullness, rales, rhonchi - Cardiovascular Rhythm: regular Heart sounds: normal: S1, S2 Abnormal Heart Sounds: no systolic murmur, no diastolic murmur, no rub, no S3 Gallop, no S4 Gallop, no click, no other - Gastrointestinal General gastrointestinal: normal bowel sounds, soft - Integumentary Integumentary: decreased turgor, normal - Neurologic Neurologic: CNII-XII intact - Musculoskeletal Musculoskeletal: gait normal, strength equal bilaterally - Psychiatric Psychiatric: A&O x's 3, appropriate affect, intact judgment & insight - Labs CBC & Chem 7: 01/24/18 07:28 01/24/18 07:28 Labs: Abnormal Lab Results - Last 24 Hours (Table) 01/21/18 01/22/18 01/22/18 Range/Units 07:45 16:50 17:22 ESR 31 H (0-20) mm/hr POC Glucose (mg/dL) 334 H (75-99) mg/dL Hemoglobin A1c 8.5 H (4.0-6.0) % C-Reactive Protein (<10.0) mg/L 01/22/18 01/23/18 01/23/18 Range/Units 17:22 08:04 12:53 ESR (0-20) mm/hr POC Glucose (mg/dL) 167 H 184 H (75-99) mg/dL Hemoglobin A1c (4.0-6.0) % C-Reactive Protein 42.3 H (<10.0) mg/L Microbiology - Last 24 Hours (Table) 01/21/18 16:20 Urine Culture - Preliminary Urine,Clean Catch Group D Enterococcus Assessment and Plan Plan: 1. metabolic encephalopathy with hypercarbia secondary to overmedication, obesity hypoventilation syndrome and acute urinary tract infection with chronic indwelling rodriguez for neurogenic bladder. has morganella last culture 7/22/18, multidrug resistant as mentioned. Switch to Cefotazidine per ID ,. The last urine culture sensitivity showed drug susceptibilities towards Zosyn, Bactrim, tobramycin, tigecycline, meropenem, Levaquin, gentamicin, Cipro, Rocephin, cefazolin. Consult Dr. Matt miller. 2. Sarcoidosis, on chronic prednisone Under the care of Dr KASIE Elias. Patient is currently on prednisone 80 mg daily and albuterol nebulizer 4 times daily. 3. Chronic hypoxic hypercarbic respiratory failure on home O2 at 3 L nasal cannula. sleep apnea with obesity hypovwentilation syndrome is suspected but patient denied history of sleep apnea based on remote sleep study testing. .consuolt with dr Kasie elias pulmonary. BIPAp when resting or napping 4. Chronic pain syndrome. Continue methadone 105 mg daily. 5. Diabetes mellitus type 2 with chemical hyperglycemia related to prednisone on metformin Accu-Cheks with NovoLog correctional scale 6. recurrent Dependent edema bilateral, with resolved wound right ulcer right lower extremity 7. Morbid obesity with BMI of 57. 8. neurogenic bladder with Urinary incontinence currently on indwelling rodriguez , unable to remediate this as patient has no control over her bladder and refuses diuretics without the rodriguez causing increased dependent edema secondary to noncompliance to diuretics. Continue on indwelling Rodriguez, would replace during this admission 8 Electrolyte abnormalities with hyponatremia, dilutional hyponatremia suspected , Lasix to be given 0.9 saline are 75-100 mL an hour, repeat electrolytes the morning 9. 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 Pathology for cervical stenosis or disc herniation, awaiting MRI of the brachial plexus right upper extremity we'll going to order for an MRI while in the hospital, it able to be performed with been awaiting for imaging studies since October 2017 10GI prophylaxis. Pepcid. 11 DVT prophylaxis. Heparin subcu. 12 Debility currently on a power chair/scooter, therapies will be obtained, patient able for transfers with impaired balance secondary to right lower extremity weakness. Cervical myelopathy ruled out based on last MRI imaging October 2017 follows with neurology neurosurgeon at [facility] 13 Chronic pain, on methadone 105 mg daily provided in the past by her previous pain doctor, currently on maintenance regimen no changes made and [place] for symptomatic pain neck and right upper extremity right leg 14Lumbar disc disease with history of sciatica alternating symptoms in the right lower leg or left lower leg on gabapentin 15. Chronic immunosuppressed state secondary to prednisone 16. Obstructive sleep apnea requiring BiPAP. Consult with Dr. KASIE Elias appreciated. Discharge plan: Return to [facility] [place] Impression and plan of care have been directed as dictated by the signing physician. Jeanen Roca nurse practitioner acting as scribe for signing physician.
--- NOTE | 2018-01-24 15:29 | P.PN ---
Subjective Progress Note Date: 01/24/18 This is a 47-year-old -[place] female patient of Dr. Dean currently [facility] [facility] secondary to debility, from sarcoid as well as one single-legwith past medical history of the left thigh wound that was treated at the wound healing Center under the care of Dr. Hernandez /Dr. Gonzalez 02/08/2017, chronic lymphedema, osteoarthritis, spinal stenosis, pulmonary sarcoidosis followed by Dr. SHAHEED Elias currently on prednisone 80 mg daily. Patient has been treated for lymphedema in the outpatient setting with daily wraps which was effective but then changed to sequential compression that did not help her edema. She does have sarcoidosis followed by Dr. SHAHEED Elias and is home O2 dependent at 3 L nasal cannula.[facility] [facility], we've been waiting for a brachial plexus MRI right shoulder secondary to weakness and upper extremity and chronic neck pain ever since she had herright Infante catheter placed 2017 by interventional radiology. We've sent her to [facility] no growth surgeon for which there is no cervical myelopathy, she presents to the emergency room secondary to increasingsleepiness and drowsiness, she currently has neurogenic bladder with indwelling Rodriguez catheter secondary to urinary retention, and urinary incontinence. Patient was treated with urinary tract infection ,for which she currently has been treated with cefuroxime for She had Morganella morganii 01/08/2018, resistant to cefuroxime timeamikacin and ampicillin and Zosyn Unasyn and aztreonam ceftezole when nitrofurantoin tetracycline . Antibiotic was later changed to ciprofloxacin and her muscle relaxants tizanidine was changed to baclofen as it has interaction with Cipro, however patient did not tolerate baclofen as she was more confused with a baclofen, baclofen was discontinued and was started on Norflex 1 week prior to admission, patient was sent to the emergency room secondary to increasing hypersomnia,of 24-hour duration, which is not her baseline, she was subsequently seen in the emergency room and was found to have pyuria carbon dioxide of 39, sodium of 1:30, chloride of 79troponin slightly elevated 0.038, lactic acid of 3.2, glucose of 166 creatinine of 1.1 from a baseline of 0.94. Patient is admitted with metabolic encephalopathy, hypersomnia, hypercarbia,in acute urinary trait tract infection with symptoms, chronic indwelling Rodriguez catheter secondary to neurogenic bladder 01/21 patient examined at bedside is more alert than yesterday. She did have trouble in the afternoon where the nurse had difficulty waking up the patient. Tizanidine stopped. Gabapentin reduced to 300 mg at bedtime. Continue Foster for pain control. Patient is unable to lift her shoulder. MRI cervical has been done as outpatient as per the records with no abnormality though MRI right shoulder is pending him to [facility] at the brachial plexus unknown etiology. Continues to be on 105 mg of methadone with Foster for intermittent pain. Dr. Hernandes consulted for possible evaluation of the neck pain on and new muscular weakness of the upper extremity and management of pain control 01/22 patient examined bedside. Neurology was consulted this morning, short Dr. Hernandes will consider tapering down the methadone. 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 Orthopedic associate will be consulted for shoulder pain and weakness. Patient would not be able to go for MRI due to her size. No further recommendation from neurology on pain medication. Joe the follow with Dr. Elias on tapering down prednisone for alternative for sarcoidosis 01/23: We will plan to schedule patient for an MRI of the cervical spine and brachial plexus to be done at [facility] with weight limit of 500 pounds. Nursing held her methadone this morning which is at 105 mg due to sedation.. Discussed with Dr. Hernandes and will decrease to 95 mg. She has been afebrile. Patient is followed by Dr. Colon and we're waiting urine culture reports. 01/24: Family meeting this afternoon took place and all questions were answered. Patient does have a scheduled MRI at [facility] for February 04 and we'll plan to cancel the one scheduled at [facility]. Urine culture is positive for Pseudomonas and VRE. Antibiotics of been clarified by Dr. adorno to Fortaz and daptomycin at 4 mg/kg. We will obtain a settings for BiPAP and plan for discharge tomorrow back to [facility]. Objective - Vital Signs Vital signs: Vital Signs Temp 96.9 F L 01/24/18 06:34 Pulse 102 H 01/24/18 07:57 Resp 16 01/24/18 06:34 BP 135/98 01/24/18 06:34 Pulse Ox 98 01/24/18 06:34 Intake & Output 01/23/18 01/24/18 01/24/18 18:59 06:59 18:59 Intake Total 560 200 Output Total 550 650 Balance 10 -450 Weight 158.757 kg Intake: Intake, IV Titration 200 Amount cefTAZidime 2 gm In 200 Sodium Chloride 0.9% 100 ml @ 100 mls/hr IVPB Q8HR ON LICENSE OF [facility] Rx#:[id number] Oral 360 200 Output: Urine 550 650 Other: Voiding Method Indwelling Catheter Indwelling Catheter # Voids 1 # Bowel Movements 0 - Exam General appearance: cooperative, morbidly obese - EENT Eyes: anicteric sclerae, EOMI, PERRLA, dentition normal, normal appearance ENT: NA/AT, normal oropharynx - Neck Neck: normal ROM - Respiratory Respiratory: bilateral: CTA, diminished, negative: dullness, rales, rhonchi - Cardiovascular Rhythm: regular Heart sounds: normal: S1, S2 Abnormal Heart Sounds: no systolic murmur, no diastolic murmur, no rub, no S3 Gallop, no S4 Gallop, no click, no other - Gastrointestinal General gastrointestinal: normal bowel sounds, soft - Integumentary Integumentary: decreased turgor, normal - Neurologic Neurologic: CNII-XII intact - Musculoskeletal Musculoskeletal: gait normal, strength equal bilaterally - Psychiatric Psychiatric: A&O x's 3, appropriate affect, intact judgment & insight - Labs CBC & Chem 7: 01/24/18 07:28 01/24/18 07:28 Labs: Abnormal Lab Results - Last 24 Hours (Table) 01/21/18 01/23/18 01/23/18 Range/Units 07:45 12:53 17:20 WBC (3.8-10.6) k/uL RDW (11.5-15.5) % Neutrophils # (1.3-7.7) k/uL Sodium (137-145) mmol/L Chloride (98-107) mmol/L Carbon Dioxide (22-30) mmol/L BUN (7-17) mg/dL Creatinine (0.52-1.04) mg/dL Glucose (74-99) mg/dL POC Glucose (mg/dL) 184 H 235 H (75-99) mg/dL Hemoglobin A1c 8.5 H (4.0-6.0) % AST (14-36) U/L ALT (9-52) U/L 01/23/18 01/24/18 01/24/18 Range/Units 21:53 07:28 07:28 WBC 11.9 H (3.8-10.6) k/uL RDW 15.8 H (11.5-15.5) % Neutrophils # 8.3 H (1.3-7.7) k/uL Sodium 133 L (137-145) mmol/L Chloride 87 L (98-107) mmol/L Carbon Dioxide 34 H (22-30) mmol/L BUN 25 H (7-17) mg/dL Creatinine 1.21 H (0.52-1.04) mg/dL Glucose 130 H (74-99) mg/dL POC Glucose (mg/dL) 167 H (75-99) mg/dL Hemoglobin A1c (4.0-6.0) % AST 39 H (14-36) U/L ALT 73 H (9-52) U/L 01/24/18 01/24/18 Range/Units 07:36 11:20 WBC (3.8-10.6) k/uL RDW (11.5-15.5) % Neutrophils # (1.3-7.7) k/uL Sodium (137-145) mmol/L Chloride (98-107) mmol/L Carbon Dioxide (22-30) mmol/L BUN (7-17) mg/dL Creatinine (0.52-1.04) mg/dL Glucose (74-99) mg/dL POC Glucose (mg/dL) 130 H 153 H (75-99) mg/dL Hemoglobin A1c (4.0-6.0) % AST (14-36) U/L ALT (9-52) U/L Microbiology - Last 24 Hours (Table) 01/20/18 14:27 Urine Culture - Final Urine,Voided Pseudomonas aeruginosa Enterococcus faecium VRE 01/21/18 16:20 Urine Culture - Final Urine,Clean Catch Enterococcus faecium VRE Assessment and Plan Plan: 1. metabolic encephalopathy with hypercarbia secondary to overmedication, obesity hypoventilation syndrome and acute catheter associated urinary tract infection with chronic indwelling rodriguez for neurogenic bladder. Urine culture is positive for pseudomonas aeruginosa and enterococcus. Dr. Colon has clarified antibiotics to Fortaz and daptomycin. 2. Sarcoidosis, on chronic prednisone Under the care of Dr SHAHEED Elias. Patient is currently on prednisone 80 mg daily decreased to 70 mg daily and albuterol nebulizer 4 times daily. 3. Chronic hypoxic hypercarbic respiratory failure on home O2 at 3 L nasal cannula. sleep apnea with obesity hypovwentilation syndrome is suspected but patient denied history of sleep apnea based on remote sleep study testing. .consuolt with dr Shaheed elias pulmonary. BIPAp when resting or napping 4. Chronic pain syndrome. Continue methadone decreased from 105 mg daily to 95 mg daily due to oversedation. 5. Diabetes mellitus type 2 with chemical hyperglycemia related to prednisone on metformin Accu-Cheks with NovoLog correctional scale and metformin. 6. recurrent Dependent edema bilateral, with resolved wound right ulcer right lower extremity 7. Morbid obesity with BMI of 57. 8. neurogenic bladder with Urinary incontinence currently on indwelling rodriguez , unable to remediate this as patient has no control over her bladder and refuses diuretics without the rodriguez causing increased dependent edema secondary to noncompliance to diuretics. Continue on indwelling Rodriguez, would replace during this admission 8 Electrolyte abnormalities with hyponatremia, dilutional hyponatremia suspected. 9. 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 Patient is scheduled for MRI on February 04 at [facility]. 10. GI prophylaxis. Pepcid. 11 DVT prophylaxis. Heparin subcu. 12 Debility currently on a power chair/scooter, therapies will be obtained, patient able for transfers with impaired balance secondary to right lower extremity weakness. Cervical myelopathy ruled out based on last MRI imaging October 2017 follows with neurology neurosurgeon at [facility] 13. Chronic pain, on methadone decreased to 95 mg daily 14. Lumbar disc disease with history of sciatica alternating symptoms in the right lower leg or left lower leg on gabapentin 15. Chronic immunosuppressed state secondary to prednisone 16. Obstructive sleep apnea requiring BiPAP. Consult with Dr. SHAHEED Elias appreciated. Discharge plan: Return to [facility] on [facility] Impression and plan of care have been directed as dictated by the signing physician. Jeanne Roca nurse practitioner acting as scribe for signing physician.
[2018-01-24] MEDS: ONDANSETRON ODT 4 MG TAB PO PRN (15:50)
[2018-01-24 17:10] LABS: Glucose,Whole Blood 258 mg/dL (75-99)
[2018-01-24 17:24] LABS: Appearance,Urine Clear (Clear); Bilirubin,Urine Negative (Negative); Blood,Urine Moderate (Negative); Color,Urine Yellow; Glucose,Urine (UA) 1+ (Negative); Ketones,Urine 1+ (Negative); Nitrite,Urine Negative (Negative); PH, Urine 5.5 (5.0-8.0); Protein,Urine Trace (Negative); Specific Gravity,Urine 1.014 (1.001-1.035); Urobilinogen,Urine <2.0 mg/dL (<2.0)
[2018-01-24 17:25] LABS: Bacteria,Urine Occasional /hpf; Hyaline Casts,Urine 21 /lpf (0-2); Leukocyte Esterase,Urine Moderate (Negative); Mucus,Urine Occasional /hpf; RBC,Urine 9 /hpf (0-5); Squamous Epithelial Cell,Urine 2 /hpf (0-4); WBC,Urine 23 /hpf (0-5)
[2018-01-24 20:02] LABS: Glucose,Whole Blood 206 mg/dL (75-99)
[2018-01-24] MEDS: GABAPENTIN 300 MG CAP PO SCH (20:43)
[2018-01-25 06:20] VITALS: BP 148/103; RESP 18; TEMP 97.2
[2018-01-25] MEDS: FUROSEMIDE 40 MG TAB PO SCH ×2 (06:20→13:26)
[2018-01-25] MEDS: IPRATROPIUM-ALBUTEROL 3 ML NEB INHALATION SCH ×2 (07:01→10:55)
[2018-01-25] MEDS: BUDESONIDE 0.5 MG/2 ML NEBU INHALATION SCH (07:02)
--- NOTE | 2018-01-25 07:04 | PN ---
PROGRESS NOTE DATE OF SERVICE: 01/24/2018. REASON FOR FOLLOWUP: Catheter assisting drug infection. INTERVAL HISTORY: The patient is afebrile. She has been breathing comfortably. Denies having any chest pain or any cough. No abdominal pain. No diarrhea. EXAMINATION: Blood pressure 146/80 with a pulse of 105. Temperature 97.7. She is 97% on room air. General description is a middle-aged female lying in bed in no distress. RESPIRATORY SYSTEM: Unlabored breathing. Clear to auscultation anteriorly. HEART: S1, S2. Regular rate and rhythm. ABDOMEN: Soft, no tenderness. LABS: Urine culture finalized with VRE. DIAGNOSTIC IMPRESSION AND PLAN: Patient with catheter-associated urinary tract infection. Urine now showing VRE in addition to Pseudomonas aeruginosa. Recommend to change her Lopez catheter. The patient at this time is on Zosyn. Daptomycin was added. However, recommend Fortaz 2 g q.8 and daptomycin 4 mg/kg for 7 days to finish a course of therapy. Continue supportive care. MMODL / IJN: [id number] /
[2018-01-25 07:13] LABS: Glucose,Whole Blood 122 mg/dL (75-99)
[2018-01-25] MEDS: INSULIN ASPART 100 UNIT/ML 1 ML 10 ML VIAL SQ SCH ×2 (07:32→13:26)
[2018-01-25] MEDS: METHADONE 10 MG TAB PO SCH (08:03)
[2018-01-25] MEDS: metFORMIN 500 MG TAB PO SCH (08:04)
[2018-01-25] MEDS: MAGNESIUM OXIDE 400 MG TAB PO SCH (08:04)
[2018-01-25] MEDS: HEPARIN SODIUM,PORCINE 5,000 UNIT/ML 1 ML VIAL SQ SCH (08:04)
[2018-01-25] MEDS: predniSONE 10 MG TAB PO SCH (08:05)
[2018-01-25] MEDS: FLUCONAZOLE 100 MG TAB PO SCH (08:05)
[2018-01-25] MEDS: METOLAZONE 2.5 MG TAB PO SCH (08:05)
[2018-01-25] MEDS: POTASSIUM CHLORIDE ER 20 MEQ TAB.ER PO SCH ×2 (08:05→13:24)
--- NOTE | 2018-01-25 10:12 | P.PN ---
Subjective Progress Note Date: 01/25/18 Interval history: 01/23/2018 patient is being seen examined and evaluated today on rounds. Patient has more arousable today. She is lying in bed on supplemental oxygen via nasal cannula. She did utilize BiPAP overnight. She is not in any sort of respiratory distress. She does have shortness of breath with exertion and activity. She states she has a chronic cough. Occasionally has some sputum production. All labs and reports have been reviewed. Afebrile no further complaints. 01/24/2018patient is being seen examined and evaluated today on rounds. She is resting up in bed on supplemental oxygen. She did have urine cultures come back positive for VRE and pseudomonas. Infectious disease on consult. She is also being seen by orthopedics, they are recommending an open MRI related to repeat CT and possible spinal cord stimulator later down the road. Her methadone is being weaned down slowly as she has been on this for quite some time. She did utilize BiPAP overnight, and with naps, she tolerates that well. She is using 3 L during the day. Afebrile no further complaints 01/25/18- patient is being seen examined and evaluated today on rounds. She is resting up in bed on 3 L of supplemental oxygen via nasal cannula. She did utilize the BiPAP overnight and tolerated that well. She does have shortness of breath with exertion and activity, as a cough that has been nonproductive. Discharge planning underway. She is afebrile denies any further complaints. Objective - Vital Signs Vital signs: Vital Signs Temp 97.2 F L 01/25/18 06:19 Pulse 102 H 01/25/18 07:16 Resp 18 01/25/18 06:19 BP 148/103 01/25/18 06:19 Pulse Ox 98 01/25/18 06:19 Intake & Output 01/24/18 01/25/18 01/25/18 18:59 06:59 18:59 Intake Total 600 Output Total 1600 Balance -1000 Weight 158.757 kg 158.757 kg Intake: Oral 600 Output: Urine 1600 Other: Voiding Method Indwelling Catheter Indwelling Catheter Indwelling Catheter # Bowel Movements 0 0 - Exam GENERAL EXAM: Alert, obese, comfortable in no apparent distress. HEAD: Normocephalic. EYES: Normal reaction of pupils, equal size. NOSE: Clear with pink turbinates. THROAT: No erythema or exudates. NECK: No masses, no JVD. CHEST: No chest wall deformity. LUNGS: Decreased breath sounds with faint expiratory wheeze CVS: S1 and S2 normal with no audible mumurs, regular rhythm. ABDOMEN: No hepatosplenomegaly, normal bowel sounds, no guarding or rigidity. EXTREMITIES: No edema noted, pedal pulses palpable. CENTRAL NERVOUS SYSTEM: No focal deficits, tone is normal in all 4 extremities. - Labs CBC & Chem 7: 01/24/18 07:28 01/24/18 07:28 Labs: Abnormal Lab Results - Last 24 Hours (Table) 01/24/18 01/24/18 01/24/18 Range/Units 11:20 17:00 17:02 POC Glucose (mg/dL) 153 H 258 H (75-99) mg/dL Urine Protein Trace H (Negative) Urine Glucose (UA) 1+ H (Negative) Urine Ketones 1+ H (Negative) Urine Blood Moderate H (Negative) Ur Leukocyte Esterase Moderate H (Negative) Urine RBC 9 H (0-5) /hpf Urine WBC 23 H (0-5) /hpf Urine Bacteria Occasional H (None) /hpf Hyaline Casts 21 H (0-2) /lpf Urine Mucus Occasional H (None) /hpf 01/24/18 01/25/18 Range/Units 20:01 07:08 POC Glucose (mg/dL) 206 H 122 H (75-99) mg/dL Urine Protein (Negative) Urine Glucose (UA) (Negative) Urine Ketones (Negative) Urine Blood (Negative) Ur Leukocyte Esterase (Negative) Urine RBC (0-5) /hpf Urine WBC (0-5) /hpf Urine Bacteria (None) /hpf Hyaline Casts (0-2) /lpf Urine Mucus (None) /hpf Microbiology - Last 24 Hours (Table) 01/24/18 17:02 Urine Culture - Preliminary Urine,Catheterized 01/21/18 16:20 Urine Culture - Final Urine,Clean Catch Enterococcus faecium VRE Assessment and Plan Assessment: Assessment Sarcoidosis Acute on chronic hypoxic respiratory failure with component of hypercarbia Obesity Hypoventilation syndrome UTI with resistant organism Metabolic encephalopathy Neurogenic bladder with chronic catheter Chronic pain syndrome Diabetes mellitus type 2 Morbid obesity Electrolyte imbalances Medical debility Plan Patient could be discharged back to [facility] from pulmonary standpoint Medications have been reviewed and will be continued as ordered. Agree with weaning down her methadone BiPAP at night and when necessary 14/5 and 35% Continue with pulmonary hygiene, coughing and deep breathing exercises, and supportive care. Supplemental oxygen to maintain oxygen saturations of 92% or better. Continue nebulizer treatments. Neurology and infectious disease on consult Continue to monitor and correct electrolytes Weight loss recommended GI and DVT prophylaxis. Increase activity as tolerated, PT and OT We will continue to monitor labs/results and adjust treatment as necessary. Further recommendations pending. I performed an examination of the patient and discussed their management with the nurse practitioner. I have reviewed the nurse practitioner's note and agree with the documented findings and plan of care.
[2018-01-25 10:58] VITALS: PULSE 100
[2018-01-25 11:28] LABS: Glucose,Whole Blood 147 mg/dL (75-99)
--- NOTE | 2018-01-25 12:53 | P.DS ---
Providers Date of admission: 01/20/18 15:15 Expected date of discharge: 01/25/18 Attending physician: Kaylan Vizcarra Consults: 01/20/18 15:15 Consult Physician Routine Consulting Provider: Kyle Anderson Consult Reason/Comments: known Do you want consulting provider notified?: Yes Consult Physician Routine Consulting Provider: Santana Colon Consult Reason/Comments: uti Do you want consulting provider notified?: Yes 01/21/18 15:24 Consult Physician Routine Consulting Provider: Karri Hernandes Consult Reason/Comments: right arm neuropathy with acute on chronic pain management Do you want consulting provider notified?: Yes 01/22/18 16:03 Consult Physician Routine Consulting Provider: Monse Garcia Consult Reason/Comments: shoulder pain and weakness Do you want consulting provider notified?: Yes Primary care physician: [facility] Course: This is a 47-year-old -[place] female patient of Dr. Dean currently at [facility] [place] [facility] secondary to debility, from sarcoid as well as one single-legwith past medical history of the left thigh wound that was treated at the wound healing Center under the care of Dr. Hernandez /Dr. Gonzalez 02/08/2017, chronic lymphedema, osteoarthritis, spinal stenosis, pulmonary sarcoidosis followed by Dr. KASIE Anderson currently on prednisone 80 mg daily. Patient has been treated for lymphedema in the outpatient setting with daily wraps which was effective but then changed to sequential compression that did not help her edema. She does have sarcoidosis followed by Dr. KASIE Anderson and is home O2 dependent at 3 L nasal cannula.[facility] [place] [facility], we've been waiting for a brachial plexus MRI right shoulder secondary to weakness and upper extremity and chronic neck pain ever since she had herright Infante catheter placed 2017 by interventional radiology. We've sent her to no growth surgeon for which there is no cervical myelopathy, she presents to the emergency room secondary to increasingsleepiness and drowsiness, she currently has neurogenic bladder with indwelling Rodriguez catheter secondary to urinary retention, and urinary incontinence. Patient was treated with urinary tract infection ,for which she currently has been treated with cefuroxime for She had Morganella morganii 01/08/2018, resistant to cefuroxime timeamikacin and ampicillin and Zosyn Unasyn and aztreonam ceftezole when nitrofurantoin tetracycline . Antibiotic was later changed to ciprofloxacin and her muscle relaxants tizanidine was changed to baclofen as it has interaction with Cipro, however patient did not tolerate baclofen as she was more confused with a baclofen, baclofen was discontinued and was started on Norflex 1 week prior to admission, patient was sent to the emergency room secondary to increasing hypersomnia,of 24-hour duration, which is not her baseline, she was subsequently seen in the emergency room and was found to have pyuria carbon dioxide of 39, sodium of 1:30, chloride of 79troponin slightly elevated 0.038, lactic acid of 3.2, glucose of 166 creatinine of 1.1 from a baseline of 0.94. Patient is admitted with metabolic encephalopathy, hypersomnia, hypercarbia,in acute urinary trait tract infection with symptoms, chronic indwelling Rodriguez catheter secondary to neurogenic bladder 01/21 patient examined at bedside is more alert than yesterday. She did have trouble in the afternoon where the nurse had difficulty waking up the patient. Tizanidine stopped. Gabapentin reduced to 300 mg at bedtime. Continue Dieterich for pain control. Patient is unable to lift her shoulder. MRI cervical has been done as outpatient as per the records with no abnormality though MRI right shoulder is pending him to [facility] at the brachial plexus unknown etiology. Continues to be on 105 mg of methadone with Dieterich for intermittent pain. Dr. Hernandes consulted for possible evaluation of the neck pain on and new muscular weakness of the upper extremity and management of pain control 01/22 patient examined bedside. Neurology was consulted this morning, short Dr. Hernandes will consider tapering down the methadone. 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 Orthopedic associate will be consulted for shoulder pain and weakness. Patient would not be able to go for MRI due to her size. No further recommendation from neurology on pain medication. Joe the follow with Dr. Anderson on tapering down prednisone for alternative for sarcoidosis 01/23: We will plan to schedule patient for an MRI of the cervical spine and brachial plexus to be done at [facility], open MRI with weight limit of 500 pounds. Nursing held her methadone this morning which is at 105 mg due to sedation.. Discussed with Dr. Hernandes and will decrease to 95 mg. She has been afebrile. Patient is followed by Dr. Colon and we're waiting urine culture reports. 01/24: Family meeting this afternoon took place and all questions were answered. Patient does have a scheduled MRI at [facility] for February 04 and we'll plan to cancel the one scheduled at [facility]. Urine culture is positive for Pseudomonas and VRE. Antibiotics of been clarified by Dr. adorno to Fortaz and daptomycin at 4 mg/kg. We will obtain a settings for BiPAP and plan for discharge tomorrow back to [facility]. 01/25: Arrangements have been made for patient have BiPAP at [facility]. IV antibiotics have also been arranged. Patient has been afebrile. Vital signs are stable. Blood sugars are running between 122 and 206. Noted multiple medication changes have been made since patient has been admitted due to hypersomnolence which are listed below. Patient will be discharged to [facility] today in stable condition. Discharge diagnoses: 1. metabolic encephalopathy with hypercarbia secondary to overmedication, obesity hypoventilation syndrome and acute catheter associated pseudomonas aeruginosa and enterococcus urinary tract infection with chronic indwelling rodriguez for neurogenic bladder. 2. Sarcoidosis 3. Chronic hypoxic hypercarbic respiratory failure on home O2 at 3 L nasal cannula. 4. Sleep apnea with obesity hypoventilation syndrome suspected 5. Chronic pain syndrome. 6. Diabetes mellitus type 2 with chemical hyperglycemia related to prednisone 7. Recurrent Dependent edema bilateral, with resolved wound right ulcer right lower extremity 8. Morbid obesity with BMI of 57. 9. Neurogenic bladder with Urinary incontinence currently on indwelling rodriguez , unable to remediate this as patient has no control over her bladder and refuses diuretics without the rodriguez causing increased dependent edema secondary to noncompliance to diuretics. 10. Electrolyte abnormalities with hyponatremia, dilutional hyponatremia suspected. 11. Right upper extremity weakness with drop syndrome. Patient is scheduled for MRI on February 04 at [facility]. 12. Debility currently on a power chair/scooter. Cervical myelopathy ruled out based on last MRI imaging October 2017 follows with neurology neurosurgeon at 13. Lumbar disc disease with history of sciatica alternating symptoms in the right lower leg or left lower leg 14. Chronic immunosuppressed state secondary to prednisone Discharge plan: Return to [facility] on the [facility] Impression and plan of care have been directed as dictated by the signing physician. Jeanne Roca nurse practitioner acting as scribe for signing physician. Patient Condition at Discharge: Good Plan - Discharge Summary Discharge Rx Participant: No New Discharge Prescriptions: New cefTAZidime [Fortaz] 1 gm IVPB Q8HR #18 vial DAPTOmycin [Cubicin] 650 mg IVPB Q24H #6 vial Gabapentin [Neurontin] 300 mg PO HS cap Insulin Aspart [NovoLOG (formulary)] 0 unit SQ ACHS vial Methadone [Dolophine] 95 mg PO DAILY #29 tab Continue Albuterol Inhaler [Ventolin Hfa Inhaler] 2 puff INHALATION RT-Q6H PRN PRN Reason: Shortness Of Breath Ipratropium-Albuterol Nebulize [Duoneb 0.5 mg-3 mg/3 ml Soln] 3 ml INHALATION RT-HS Ondansetron [Zofran ODT] 4 mg PO Q4H PRN PRN Reason: Nausea Potassium Chloride ER [K-Dur 20] 20 meq PO TID@,, Furosemide [Lasix] 40 mg PO TID@, predniSONE 70 mg PO DAILY Metolazone [Zaroxolyn] 2.5 mg PO MOWEFR Fluconazole [Diflucan] 100 mg PO HS metFORMIN HCL [Glucophage] 1,000 mg PO BID@ rOPINIRole HCL [Requip] 0.5 mg PO BID Magnesium Oxide [Mag-Ox] 400 mg PO BID@ Budesonide [Pulmicort] 0.5 mg INHALATION RT-BID@ Diclofenac Sodium [Voltaren Gel] 1 gram TOPICAL Q4H PRN PRN Reason: Pain Discontinued HYDROcodone/APAP 5-325MG [Dieterich 5-325] 1 tab PO Q6HR PRN PRN Reason: Pain tiZANidine HCL 2 mg PO QID@,,, Methadone HCl [Dolophine HCl] 100 mg PO DAILY Methadone HCl [Dolophine HCl] 5 mg PO DAILY Gabapentin [Neurontin] 300 mg PO TID@,, tiZANidine [Zanaflex] 4 mg PO QID@,,, Orphenadrine [Norflex] 100 mg PO BID@ Discharge Medication List Albuterol Inhaler [Ventolin Hfa Inhaler] 2 puff INHALATION RT-Q6H PRN 08/11/17 [ History] Ipratropium-Albuterol Nebulize [Duoneb 0.5 mg-3 mg/3 ml Soln] 3 ml INHALATION RT -HS 08/29/17 [History] Fluconazole [Diflucan] 100 mg PO HS 12/23/17 [History] Furosemide [Lasix] 40 mg PO TID@,,12/23/17 [History] Metolazone [Zaroxolyn] 2.5 mg PO MOWEFR 12/23/17 [History] Ondansetron [Zofran ODT] 4 mg PO Q4H PRN 12/23/17 [History] Potassium Chloride ER [K-Dur 20] 20 meq PO TID@,,12/23/17 [History] predniSONE 70 mg PO DAILY 12/23/17 [History] Budesonide [Pulmicort] 0.5 mg INHALATION RT-BID@,01/20/18 [History] Diclofenac Sodium [Voltaren Gel] 1 gram TOPICAL Q4H PRN 01/20/18 [History] Magnesium Oxide [Mag-Ox] 400 mg PO BID@,01/20/18 [History] metFORMIN HCL [Glucophage] 1,000 mg PO BID@,01/20/18 [History] rOPINIRole HCL [Requip] 0.5 mg PO BID 01/20/18 [History] DAPTOmycin [Cubicin] 650 mg IVPB Q24H #6 vial 01/24/18 [Rx] cefTAZidime [Fortaz] 1 gm IVPB Q8HR #18 vial 01/24/18 [Rx] Gabapentin [Neurontin] 300 mg PO HS cap 01/25/18 [Rx] Insulin Aspart [NovoLOG (formulary)] 0 unit SQ ACHS vial 01/25/18 [Rx] Methadone [Dolophine] 95 mg PO DAILY #29 tab 01/25/18 [Rx] Follow up Appointment(s)/Referral(s): Kaylan Vizcarra MD [Primary Care Provider] - 1-2 days (at [facility], [NON-STAFF] - 1 Week Kyle nAderson MD [STAFF PHYSICIAN] - 1 Week Santana Colon MD [STAFF PHYSICIAN] - 2 Weeks Patient Instructions/Handouts: Urinary Tract Infection in Women (DC) Activity/Diet/Wound Care/Special Instructions: Bipap settings: 14/5, 35%. Cardiac, diabetic diet Continue rodriguez care per policy. Changed on 01-21-18. VRE precautions. Up with assist, fall precautions. Change positions every 2 hours while awake. HAS SCHEDULED MRI AT [facility] FOR [facility]OULD[facility] ON FEBRUARY 09 AT 10:00. SCRIPT ON CHART Discharge Disposition: TRANSFER TO SNF/ECF
--- NOTE | 2018-01-25 14:37 | PN ---
PROGRESS NOTE DATE OF SERVICE: 02/04/2018 REASON FOR FOLLOWUP VISIT: Catheter-associated urinary tract infection. INTERVAL HISTORY: The patient is afebrile. She is currently feeling nauseated and sick to the stomach. The patient did not have any bowel movement in more than a week. Patient denies having any chest pain or shortness of breath. No cough. No abdominal pain. PHYSICAL EXAMINATION: Blood pressure 140/100 with a pulse of 94, temperature 97.2. She is 98% on BiPAP. General description is a middle-aged female, lying in bed in no distress. RESPIRATORY SYSTEM: Unlabored breathing, clear to auscultation anteriorly. HEART: S1, S2. Regular rate and rhythm. ABDOMEN: Soft, no tenderness. LABS: No new labs been obtained today. DIAGNOSTIC IMPRESSION AND PLAN: Patient with catheter-associated urinary intact infection, urinary culture did show VRE and Pseudomonas aeruginosa. Currently on Zosyn and daptomycin, will be transitioned to Fortaz 2 g daily along with daptomycin 4 mg/kg daily for 7 more days to finish a course of therapy. Continue supportive care. MMODL / IJN: [id number] /
== END 2018-01-25 15:33 | DRG 698 ==
LOC: EC 13:15 → 4MS4W 15:15
PROVIDERS: ADMIT Family Medicine; ATTEND Family Medicine
DX: T83.518A Infection and inflammatory reaction due to other urinary catheter, initial encounter (principal); G93.41 Metabolic encephalopathy; J96.21 Acute and chronic respiratory failure with hypoxia; J96.22 Acute and chronic respiratory failure with hypercapnia; E66.2 Morbid (severe) obesity with alveolar hypoventilation; E87.1 Hypo-osmolality and hyponatremia; G72.0 Drug-induced myopathy; N39.0 Urinary tract infection, site not specified; Z68.43 Body mass index [BMI] 50.0-59.9, adult; Y84.6 Urinary catheterization as the cause of abnormal reaction of the patient, or of later complication, without mention of misadventure at the time of the procedure; B95.2 Enterococcus as the cause of diseases classified elsewhere; D86.9 Sarcoidosis, unspecified; E11.65 Type 2 diabetes mellitus with hyperglycemia; G47.10 Hypersomnia, unspecified; E11.42 Type 2 diabetes mellitus with diabetic polyneuropathy; G89.4 Chronic pain syndrome; I89.0 Lymphedema, not elsewhere classified; K59.00 Constipation, unspecified; M48.02 Spinal stenosis, cervical region; M51.9 Unspecified thoracic, thoracolumbar and lumbosacral intervertebral disc disorder; N31.9 Neuromuscular dysfunction of bladder, unspecified; N39.498 Other specified urinary incontinence; T38.0X5A Adverse effect of glucocorticoids and synthetic analogues, initial encounter; Z79.52 Long term (current) use of systemic steroids; Z79.891 Long term (current) use of opiate analgesic; Z86.19 Personal history of other infectious and parasitic diseases; Z87.440 Personal history of urinary (tract) infections; Z87.891 Personal history of nicotine dependence; Z91.14 Patient's other noncompliance with medication regimen; Z99.81 Dependence on supplemental oxygen; Z79.899 Other long term (current) drug therapy; Z79.84 Long term (current) use of oral hypoglycemic drugs; T50.901A Poisoning by unspecified drugs, medicaments and biological substances, accidental (unintentional), initial encounter
CPT/HCPCS: 36415; 36600; 80048; 80053; 81001; 82550; 82553; 82805; 83036; 83605; 83735; 84100; 84132; 84443; 84484; 85025; 85027; 85610; 85652; 85730; 86140; 87077; 87086; 87186; 93005; 94640; 94660; 96361; 96365; 99285

== ENCOUNTER 2018-02-03 11:53 | Inpatient (IN) | payer OTHER ==
[2018-02-03] MEDS ORDERED: SODIUM CHLORIDE 0.9% 500 ML IV STA ×2 (12:30→13:32)
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
[2018-02-03] MEDS ORDERED: cefTRIAXone IN SWFI 1,000 MG/10 ML SYRINGE IVP STA (12:39)
[2018-02-03 12:54] LABS: Basophils % (A) 0 %; Eosinophils # (A) 0.1 k/uL (0-0.7); Eosinophils % (A) 1 %; HCT 40.5 % (34.0-46.0); HGB 13.2 gm/dL (11.4-16.0); Lymphocytes # (A) 2.5 k/uL (1.0-4.8); Lymphocytes % (A) 24 %; MCH 28.5 pg (25.0-35.0); MCHC 32.6 g/dL (31.0-37.0); MCV 87.5 fL (80.0-100.0); Mean Platelet Volume 6.4; Monocytes # (A) 0.5 k/uL (0-1.0); Monocytes % (A) 5 %; Neutrophils # (A) 7.2 k/uL (1.3-7.7); Neutrophils % (A) 69 %; Platelet Count 303 k/uL (150-450); RBC 4.63 m/uL (3.80-5.40); RDW 15.7 % (11.5-15.5); WBC 10.4 k/uL (3.8-10.6)
[2018-02-03 13:03] LABS: Ammonia <9 umol/L (<30)
[2018-02-03 13:04] LABS: Albumin 3.8 g/dL (3.5-5.0); Amorphous Sediment,Urine Rare /hpf; Appearance,Urine Cloudy (Clear); Bacteria,Urine Occasional /hpf; Bilirubin,Urine Negative (Negative); Blood,Urine Large (Negative); Budding Yeast,Urine Few /hpf; Calcium 9.4 mg/dL (8.4-10.2); Color,Urine Yellow; Glucose,Urine (UA) Negative (Negative); Hyaline Casts,Urine 12 /lpf (0-2); Ketones,Urine Negative (Negative); Leukocyte Esterase,Urine Moderate (Negative); Magnesium 2.8 mg/dL (1.6-2.3); Mucus,Urine Rare /hpf; Nitrite,Urine Negative (Negative); PH, Urine 5.5 (5.0-8.0); Potassium 3.1 mmol/L (3.5-5.1); Protein,Urine 1+ (Negative); RBC,Urine 39 /hpf (0-5); Specific Gravity,Urine 1.011 (1.001-1.035); Squamous Epithelial Cell,Urine 6 /hpf (0-4); Total Bilirubin 0.6 mg/dL (0.2-1.3); Total Protein 6.4 g/dL (6.3-8.2); Urobilinogen,Urine <2.0 mg/dL (<2.0); WBC,Urine 19 /hpf (0-5)
[2018-02-03 13:06] LABS: Lactic Acid, Venous 2.3 mmol/L (0.7-2.0)
[2018-02-03 13:16] LABS: INR 1.2 (<1.2); Prothrombin Time 11.2 sec (9.0-12.0)
[2018-02-03 13:21] LABS: Partial Thromboplastin Time 21.4 sec (22.0-30.0)
--- NOTE | 2018-02-03 13:33 | XR ---
EXAMINATION TYPE: XR chest 2V DATE OF EXAM: 02/03/2018 COMPARISON: 09/05/2017 TECHNIQUE: PA and lateral views submitted. HISTORY: Sarcoidosis FINDINGS: Mediport catheter is seen. There is limited assessment due to technique and reduced inspiration. Inte rstitium is prominent there is mild prominence along the right cardiac phrenic angle. Stable relative to the prior exam. No pneumothorax. Biapical pleural thickening is stable. IMPRESSION: 1. Limited inspiration with subsegmental changes at both lung bases. Atelectasis favored over pneumon ia, although, correlate clinically. Prominent soft tissue in the right cardiophrenic angle is correla codie with a previous CT scan the chest dated 09/23/2016 and corresponds to prominent cardiac fat pad. 2. The interstitium remains mildly prominent which may represent chronic interstitial lung disease. S uperimposed pneumonitis or venous congestion not entirely excluded but felt less likely correlate cli nically.
[2018-02-03 13:40] LABS: Troponin I 0.046 ng/mL (0.000-0.034)
--- NOTE | 2018-02-03 14:47 | CT ---
EXAMINATION TYPE: CT abdomen pelvis w con DATE OF EXAM: 02/03/2018 HISTORY: pain not further specified. Not eating per patient CT DLP: 4589mGycm Automated Exposure Control for Dose Reduction was Utilized. CONTRAST: CT scan of the abdomen and pelvis is performed without oral but with IV Contrast, patient injected wi th 100 mL of Isovue 300. COMPARISON: None FINDINGS: Exam noted suboptimal due to patient's large body habitus and inability to raise arms overh ead causing streak artifact LUNG BASES: On superior axial image there is tip of Mediport catheter in SVC. LIVER/GB: Liver is diffusely hypodense relative to spleen consistent with fatty infiltration. Gallbla dder has distended margins without surrounding inflammatory change PANCREAS: No significant abnormality is seen. SPLEEN: There is 1 cm splenule inferior to spleen axial image 23. ADRENALS: No significant abnormality is seen. KIDNEYS: There is 1.7 cm simple appearing cyst laterally lower pole level left kidney axial image 34. There is 8 mm calculus lower pole level right kidney coronal image 65. BOWEL: Mild prominence of fecal material in the rectum. No suspicious small or large bowel dilatation UTERUS/ADNEXA: No gross abnormality seen. LYMPH NODES: No greater than 1cm abdominal or pelvic lymph nodes are appreciated. OSSEOUS STRUCTURES: Facet arthropathy lower lumbar levels is seen. OTHER: There is moderate to large sized fat-containing umbilical hernia. IMPRESSION: No significant acute finding is seen to account for patient's clinical symptoms.
[2018-02-03] MEDS ORDERED: ASPIRIN 81 MG PO STA (15:33)
[2018-02-03] MEDS ORDERED: NALOXONE 0.4 MG/ML 1 ML VIAL IV PRN (15:37)
[2018-02-03] MEDS ORDERED: ONDANSETRON ODT 4 MG TAB PO PRN (15:39)
[2018-02-03] MEDS ORDERED: BISACODYL 10 MG SUPP RECTAL PRN (15:39)
[2018-02-03 16:23] LABS: VBG PH 7.46 (7.31-7.41)
[2018-02-03] MEDS ORDERED: DICLOFENAC SODIUM GEL 100 GM TUBE TOPICAL PRN (18:48)
[2018-02-03 18:51] LABS: Glucose,Whole Blood 104 mg/dL (75-99)
[2018-02-03] MEDS ORDERED: Potassium Replacement Protocol 1 EACH MISC MISCELLANE PRN (19:07)
[2018-02-03] MEDS: INSULIN ASPART 100 UNIT/ML 1 ML 10 ML VIAL SQ SCH ×2 (19:14→22:10)
[2018-02-03] MEDS: SODIUM CHLORIDE 0.9% 1,000 ML IV SCH (19:15)
[2018-02-03] MEDS: metFORMIN 500 MG TAB PO SCH (19:15)
[2018-02-03] MEDS: GABAPENTIN 300 MG CAP PO SCH (21:00)
[2018-02-03] MEDS: POTASSIUM CHLORIDE ER 20 MEQ TAB.ER PO SCH ×2 (21:02→21:03)
[2018-02-03] MEDS: HEPARIN SODIUM,PORCINE 5,000 UNIT/ML 1 ML VIAL SQ SCH (21:02)
[2018-02-03] MEDS: SENNOSIDES-DOCUSATE SODIUM 1 EACH TAB PO SCH (21:02)
[2018-02-03] MEDS: METOLAZONE 2.5 MG TAB PO SCH (21:02)
[2018-02-03] MEDS: IPRATROPIUM-ALBUTEROL 3 ML NEB INHALATION SCH (21:32)
[2018-02-03 21:52] LABS: Glucose,Whole Blood 141 mg/dL (75-99)
[2018-02-03] MEDS ORDERED: SODIUM CHLORIDE 0.9% 250 ML IV ONE (22:45)
[2018-02-04] MEDS: METHADONE 5 MG TAB PO SCH ×2 (00:02→21:21)
[2018-02-04] MEDS: cefTRIAXone IN SWFI 1,000 MG/10 ML SYRINGE IVP SCH ×3 (00:02→21:23)
[2018-02-04] MEDS: METHADONE 10 MG TAB PO SCH ×2 (00:22→21:22)
[2018-02-04] MEDS: FUROSEMIDE 40 MG TAB PO SCH ×2 (05:54→11:41)
[2018-02-04 06:04] LABS: HCT 36.9 % (34.0-46.0); MCH 29.1 pg (25.0-35.0); MCHC 32.6 g/dL (31.0-37.0); MCV 89.3 fL (80.0-100.0); Mean Platelet Volume 6.4; Platelet Count 273 k/uL (150-450); RBC 4.14 m/uL (3.80-5.40); RDW 15.9 % (11.5-15.5); WBC 8.2 k/uL (3.8-10.6)
[2018-02-04 06:16] LABS: Calcium 9.1 mg/dL (8.4-10.2); Potassium 3.3 mmol/L (3.5-5.1)
[2018-02-04] MEDS: INSULIN ASPART 100 UNIT/ML 1 ML 10 ML VIAL SQ SCH ×4 (06:26→21:04)
[2018-02-04] MEDS: FLUTICASONE 110 MCG INHALER INHALATION SCH (06:28)
[2018-02-04 06:29] LABS: Glucose,Whole Blood 133 mg/dL (75-99)
[2018-02-04] MEDS: ALBUTEROL NEBULIZED 2.5 MG/3 ML INHALATION PRN ×2 (08:04→13:38)
[2018-02-04] MEDS ORDERED: METHADONE 5 MG TAB PO SCH (09:00)
[2018-02-04] MEDS ORDERED: METHADONE 10 MG TAB PO SCH (09:00)
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
[2018-02-04] MEDS: POTASSIUM CHLORIDE ER 20 MEQ TAB.ER PO SCH ×3 (10:34→21:09)
[2018-02-04] MEDS: HEPARIN SODIUM,PORCINE 5,000 UNIT/ML 1 ML VIAL SQ SCH ×2 (10:35→21:03)
[2018-02-04] MEDS: metFORMIN 500 MG TAB PO SCH ×2 (10:35→18:35)
[2018-02-04] MEDS: LACTULOSE 20 GM/30 ML CUP PO SCH ×4 (10:35→21:24)
[2018-02-04] MEDS: SENNOSIDES-DOCUSATE SODIUM 1 EACH TAB PO SCH ×3 (10:36→21:04)
[2018-02-04] MEDS: predniSONE 20 MG TAB PO SCH (10:36)
[2018-02-04 11:39] LABS: Glucose,Whole Blood 179 mg/dL (75-99)
--- NOTE | 2018-02-04 13:39 | NM ---
EXAMINATION TYPE: NM pul vent and perfuse DATE OF EXAM: 02/04/2018 COMPARISON: NONE HISTORY: Elevated d-dimer. TECHNIQUE: Utilizing inhalation of 69.6 mCi Tc 99m DTPA aerosol and intravenous injection of 5.5 mCi of Tc 99m MAA, ventilation and perfusion images are acquired post injection in multiple projections. FINDINGS: Ventilation and perfusion are matched. No VQ mismatches are seen. IMPRESSION: THIS EXAMINATION IS LOW PROBABILITY FOR PULMONARY EMBOLUS.
[2018-02-04 14:50] VITALS: BMI 56.2
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
[2018-02-04 16:48] LABS: Glucose,Whole Blood 169 mg/dL (75-99)
[2018-02-04] MEDS: SODIUM CHLORIDE 0.9% 1,000 ML IV SCH (18:36)
[2018-02-04] MEDS: IPRATROPIUM-ALBUTEROL 3 ML NEB INHALATION SCH (20:43)
[2018-02-04] MEDS: GABAPENTIN 300 MG CAP PO SCH (21:03)
[2018-02-04 21:04] LABS: Glucose,Whole Blood 111 mg/dL (75-99)
[2018-02-05] MEDS: FLUTICASONE 110 MCG INHALER INHALATION SCH ×5 (02:18→20:50)
[2018-02-05 05:14] LABS: Glucose,Whole Blood 141 mg/dL (75-99)
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
[2018-02-05 05:48] LABS: Basophils % (A) 0 %; Eosinophils # (A) 0.2 k/uL (0-0.7); Eosinophils % (A) 2 %; HCT 38.6 % (34.0-46.0); HGB 12.7 gm/dL (11.4-16.0); Lymphocytes # (A) 2.6 k/uL (1.0-4.8); Lymphocytes % (A) 27 %; MCV 87.9 fL (80.0-100.0); Mean Platelet Volume 6.6; Monocytes # (A) 0.4 k/uL (0-1.0); Monocytes % (A) 5 %; Neutrophils # (A) 6.2 k/uL (1.3-7.7); Neutrophils % (A) 66 %; Platelet Count 279 k/uL (150-450); RBC 4.39 m/uL (3.80-5.40); RDW 15.7 % (11.5-15.5); WBC 9.4 k/uL (3.8-10.6)
[2018-02-05 05:56] LABS: ALT 67 U/L (9-52); AST 41 U/L (14-36); Albumin 3.5 g/dL (3.5-5.0); Alkaline Phosphatase 62 U/L (38-126); Blood Urea Nitrogen 20 mg/dL (7-17); Calcium 9.2 mg/dL (8.4-10.2); Chloride 87 mmol/L (98-107); Glucose 123 mg/dL (74-99); Sodium 136 mmol/L (137-145); Total Bilirubin 0.5 mg/dL (0.2-1.3); Total Protein 6.1 g/dL (6.3-8.2)
[2018-02-05 06:02] LABS: Anion Gap 10 mmol/L
[2018-02-05 06:10] LABS: Carbon Dioxide 39 mmol/L (22-30)
[2018-02-05] MEDS: INSULIN ASPART 100 UNIT/ML 1 ML 10 ML VIAL SQ SCH ×4 (06:45→22:28)
[2018-02-05] MEDS: POTASSIUM CHLORIDE ER 20 MEQ TAB.ER PO SCH ×3 (06:53→09:31)
[2018-02-05] MEDS: FUROSEMIDE 40 MG TAB PO SCH ×2 (06:53→12:09)
[2018-02-05] MEDS ORDERED: POTASSIUM CHLORIDE ER 20 MEQ TAB.ER PO STA (09:20)
--- NOTE | 2018-02-05 09:26 | ECHOF ---
Referral Reason:abn trop MEASUREMENTS -------- HEIGHT: 175.3 cm WEIGHT: 169.6 kg BP: 130/87 RVIDd: 3.0 cm (< 3.3) IVSd: 1.0 cm (0.6 - 1.1) LVIDd: 3.2 cm (3.9 - 5.3) LVPWd: 1.0 cm (0.6 - 1.1) IVSs: 1.2 cm LVIDs: 2.2 cm LVPWs: 1.4 cm Ao Diam: 3.2 cm (2.0 - 3.7) AV Cusp: 1.9 cm (1.5 - 2.6) LA Diam: 3.1 cm (2.7 - 3.8) MV E Carlos: 0.60 m/s MV DecT: 327 ms MV A Carlos: 0.77 m/s MV E/A Ratio: 0.77 RAP: 5.00 mmHg RVSP: 11.02 mmHg FINDINGS -------- Atrial fibrillation. This was a technically difficult study with suboptimal views. The left ventricular size is normal. Left ventricular wall thickness is normal. Overall left vent ricular systolic function is normal with, an EF between 55 - 60 %. The right ventricle is normal in size and function. The left atrial size is normal. The right atrium was not well visualized. 5 ml of Lumason was utilized for enhancement of images. The aortic valve structure was not well visualized. No significant stenosis or regurgitation of the aortic valve. The mitral valve structure was not well visualized. Mild mitral regurgitation is present. Trace tricuspid regurgitation present. Right ventricular systolic pressure is normal at < 35 mmHg. There is no evidence of pulmonary hypertension. The pulmonic valve was not well visualized. The aortic root size is normal. IVC Not well visulized. There is no pericardial effusion. CONCLUSIONS -------- 1. Atrial fibrillation. 2. This was a technically difficult study with suboptimal views. 3. The left ventricular size is normal. 4. Left ventricular wall thickness is normal. 5. Overall left ventricular systolic function is normal with, an EF between 55 - 60 %. 6. The right atrium was not well visualized. 7. 5 ml of Lumason was utilized for enhancement of images. 8. The aortic valve structure was not well visualized. 9. No significant stenosis or regurgitation of the aortic valve. 10. The mitral valve structure was not well visualized. 11. Mild mitral regurgitation is present. 12. Trace tricuspid regurgitation present. 13. Right ventricular systolic pressure is normal at < 35 mmHg. 14. There is no evidence of pulmonary hypertension. 15. The pulmonic valve was not well visualized. 16. The aortic root size is normal. 17. IVC Not well visulized. 18. There is no pericardial effusion. CATTLE DEHORNER: Luis Abbott RDCS
[2018-02-05] MEDS: predniSONE 20 MG TAB PO SCH (09:30)
[2018-02-05] MEDS: FLUCONAZOLE 100 MG TAB PO SCH (09:30)
[2018-02-05] MEDS: metFORMIN 500 MG TAB PO SCH ×2 (09:30→16:57)
[2018-02-05] MEDS: HEPARIN SODIUM,PORCINE 5,000 UNIT/ML 1 ML VIAL SQ SCH (09:31)
[2018-02-05] MEDS: LACTULOSE 20 GM/30 ML CUP PO SCH (09:31)
[2018-02-05] MEDS: SENNOSIDES-DOCUSATE SODIUM 1 EACH TAB PO SCH ×2 (09:31→12:09)
[2018-02-05] MEDS: cefTRIAXone IN SWFI 1,000 MG/10 ML SYRINGE IVP SCH (09:34)
[2018-02-05 11:30] LABS: Glucose,Whole Blood 195 mg/dL (75-99)
--- NOTE | 2018-02-05 12:33 | P.PN ---
Subjective This is a pleasant 47-year-old -Nigerian female. Seen and examined resting comfortably in bed in no acute distress. She denies symptoms of chest pain, shortness of breath, dizziness or palpitations. She states her weakness seems to be improving mildly since yesterday. Echocardiogram obtained reveals preserved left ventricular systolic function with ejection fraction 55-60%, mild MR noted. Laboratory data reviewed, a 0.7, platelets 279, sodium 136, potassium 3.0, creatinine 0.7, TSH 3.14. Blood pressure 155/98 heart rate 102. Objective - Vital Signs Vital signs: Vital Signs Temp 97.0 F L 02/05/18 12:00 Pulse 102 H 02/05/18 12:00 Resp 18 02/05/18 12:00 BP 155/98 02/05/18 12:00 Pulse Ox 95 02/05/18 12:00 Intake & Output 02/04/18 02/05/18 02/05/18 18:59 06:59 18:59 Intake Total 1058 160 Output Total 2550 2900 Balance -1492 -2900 160 Weight 172.8 kg 172.507 kg Intake: IV 200 Invasive Line 1 20 Sodium Chloride 0.9% 1, 180 000 ml @ 20 mls/hr IV . Q24H [facility] Rx#:[id number] Intake, IV Titration 160 Amount Sodium Chloride 0.9% 1, 160 000 ml @ 20 mls/hr IV . Q24H [facility] Rx#:[id number] Oral 858 Output: Urine 2550 2900 Uretheral (Lopez) 1400 Other: Voiding Method Indwelling Catheter Indwelling Catheter Indwelling Catheter # Bowel Movements 0 - Exam GENERAL: Well-appearing, well-nourished and in no acute distress. Morbidly obese. NECK: Supple without JVD or thyromegaly. LUNGS: Breath sounds clear to auscultation bilaterally. Respiration equal and unlabored. No wheezes, rales or rhonchi. Diminished bilaterally. HEART: Regular rate and rhythm without murmurs, rubs or gallops. S1 and S2 heard. EXTREMITIES: Normal range of motion, trace bilateral lower extremity nonpitting edema. No clubbing or cyanosis. Peripheral pulses intact. - Labs CBC & Chem 7: 02/05/18 05:30 02/05/18 05:30 Labs: Abnormal Lab Results - Last 24 Hours (Table) 02/04/18 02/04/18 02/05/18 Range/Units 16:47 21:02 05:12 RDW (11.5-15.5) % Sodium (137-145) mmol/L Potassium (3.5-5.1) mmol/L Chloride (98-107) mmol/L Carbon Dioxide (22-30) mmol/L BUN (7-17) mg/dL Glucose (74-99) mg/dL POC Glucose (mg/dL) 169 H 111 H 141 H (75-99) mg/dL AST (14-36) U/L ALT (9-52) U/L Total Protein (6.3-8.2) g/dL 02/05/18 02/05/18 02/05/18 Range/Units 05:30 05:30 11:26 RDW 15.7 H (11.5-15.5) % Sodium 136 L (137-145) mmol/L Potassium 3.0 L* (3.5-5.1) mmol/L Chloride 87 L (98-107) mmol/L Carbon Dioxide 39 H (22-30) mmol/L BUN 20 H (7-17) mg/dL Glucose 123 H (74-99) mg/dL POC Glucose (mg/dL) 195 H (75-99) mg/dL AST 41 H (14-36) U/L ALT 67 H (9-52) U/L Total Protein 6.1 L (6.3-8.2) g/dL Microbiology - Last 24 Hours (Table) 02/03/18 12:04 Urine Culture - Final Urine,Catheterized 02/03/18 13:53 Blood Culture - Preliminary Blood No Growth after 24 hours Assessment and Plan Assessment: ASSESSMENT Symptoms of progressive weakness Abnormal troponin, not consistent with an acute coronary syndrome. May be secondary to supply demand mismatch. EKG shows sinus tachycardia with nonspecific ST-T wave changes. Sarcoidosis, advanced Hypokalemia History of VRE in the urine PLAN Stable from a cardiac perspective. Continue to replace potassium per protocol. Tachycardia most likely related to infectious process. We will continue to follow as needed. Nurse Practitioner note has been reviewed, I agree with a documented findings and plan of care. Patient was seen and examined.
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
[2018-02-05 16:28] LABS: Glucose,Whole Blood 191 mg/dL (75-99)
[2018-02-05] MEDS: SODIUM CHLORIDE 0.9% 1,000 ML IV SCH (16:57)
[2018-02-05] MEDS: IPRATROPIUM-ALBUTEROL 3 ML NEB INHALATION SCH (20:35)
[2018-02-05 21:33] LABS: Glucose,Whole Blood 126 mg/dL (75-99)
--- NOTE | 2018-02-06 00:02 | PN ---
PROGRESS NOTE DATE OF SERVICE: 02/05/2018. REASON FOR FOLLOWUP VISIT: Urinary tract infection. INTERVAL HISTORY: The patient is afebrile. She is more awake and alert. She is breathing comfortably. Denies significant chest pain or cough. No abdominal pain. No diarrhea. EXAMINATION: Blood pressure 121/90 with a pulse of 97, temperature 97.2, 98% on room air. GENERAL DESCRIPTION: A middle aged female lying in bed in no distress. RESPIRATORY SYSTEM: Unlabored breathing. Clear to auscultation anteriorly. HEART: S1, S2. Regular rate and rhythm. No tenderness. LABS: Hemoglobin is 12.7, white count 9.4, BUN of 20, creatinine 0.70. Urine culture so far negative. DIAGNOSTIC IMPRESSION AND PLAN: Patient admitted to the hospital with generalized weakness with concern for urinary tract infection, however, the culture has been negative so far. Urine did show some yeast. The patient currently on Diflucan and will continue for short course as the cultures remain negative. Discontinue the Rocephin. Continue supportive care condition. MMODL / IJN: [id number] /
[2018-02-06] MEDS: LACTULOSE 20 GM/30 ML CUP PO SCH ×2 (00:25→10:37)
[2018-02-06] MEDS: METHADONE 5 MG TAB PO SCH (00:27)
[2018-02-06] MEDS: METHADONE 10 MG TAB PO SCH (00:29)
[2018-02-06] MEDS: GABAPENTIN 300 MG CAP PO SCH (00:31)
[2018-02-06] MEDS: SENNOSIDES-DOCUSATE SODIUM 1 EACH TAB PO SCH ×3 (00:31→12:06)
[2018-02-06] MEDS: HEPARIN SODIUM,PORCINE 5,000 UNIT/ML 1 ML VIAL SQ SCH ×2 (00:32→10:37)
[2018-02-06] MEDS: POTASSIUM CHLORIDE ER 20 MEQ TAB.ER PO SCH ×4 (00:32→12:06)
[2018-02-06 06:26] LABS: Basophils # (A) 0.1 k/uL (0-0.2); Basophils % (A) 1 %; Eosinophils # (A) 0.1 k/uL (0-0.7); Eosinophils % (A) 1 %; HCT 39.6 % (34.0-46.0); HGB 12.8 gm/dL (11.4-16.0); Lymphocytes % (A) 28 %; MCH 28.7 pg (25.0-35.0); MCHC 32.4 g/dL (31.0-37.0); MCV 88.5 fL (80.0-100.0); Mean Platelet Volume 6.2; Monocytes # (A) 0.4 k/uL (0-1.0); Monocytes % (A) 4 %; Neutrophils # (A) 7.1 k/uL (1.3-7.7); Neutrophils % (A) 66 %; Platelet Count 279 k/uL (150-450); RBC 4.47 m/uL (3.80-5.40); RDW 15.9 % (11.5-15.5); WBC 10.8 k/uL (3.8-10.6)
[2018-02-06 06:28] LABS: ALT 67 U/L (9-52); AST 40 U/L (14-36); Albumin 3.6 g/dL (3.5-5.0); Alkaline Phosphatase 60 U/L (38-126); Blood Urea Nitrogen 16 mg/dL (7-17); Calcium 9.2 mg/dL (8.4-10.2); Chloride 84 mmol/L (98-107); Glucose 106 mg/dL (74-99); Magnesium 1.6 mg/dL (1.6-2.3); Sodium 134 mmol/L (137-145); Total Bilirubin 0.6 mg/dL (0.2-1.3); Total Protein 6.1 g/dL (6.3-8.2)
[2018-02-06] MEDS: FUROSEMIDE 40 MG TAB PO SCH ×2 (06:31→12:05)
[2018-02-06 06:35] LABS: Anion Gap 12 mmol/L; Carbon Dioxide 38 mmol/L (22-30)
[2018-02-06 06:42] LABS: Glucose,Whole Blood 128 mg/dL (75-99)
[2018-02-06] MEDS: INSULIN ASPART 100 UNIT/ML 1 ML 10 ML VIAL SQ SCH ×2 (06:45→11:01)
[2018-02-06] MEDS: FLUTICASONE 110 MCG INHALER INHALATION SCH (07:47)
[2018-02-06] MEDS: FLUCONAZOLE 100 MG TAB PO SCH (10:37)
[2018-02-06] MEDS: cefTRIAXone IN SWFI 1,000 MG/10 ML SYRINGE IVP SCH (10:37)
[2018-02-06] MEDS: predniSONE 20 MG TAB PO SCH (10:38)
[2018-02-06] MEDS: metFORMIN 500 MG TAB PO SCH (10:38)
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
[2018-02-06 11:00] VITALS: BP 135/81; PULSE 105; RESP 18; TEMP 97
[2018-02-06] MEDS: METOLAZONE 2.5 MG TAB PO SCH (11:03)
[2018-02-06 11:07] LABS: Glucose,Whole Blood 127 mg/dL (75-99)
--- NOTE | 2018-02-06 14:37 | PN ---
PROGRESS NOTE DATE OF SERVICE: 02/06/2018. REASON FOR FOLLOWUP VISIT: Urinary tract infection. INTERVAL HISTORY: The patient was seen on rounds this morning. The patient has been afebrile. She is breathing comfortably. Denies having any chest pain or any cough. No abdominal pain. No diarrhea. EXAMINATION: Blood pressure is 135/81 with a pulse of 105, temperature 97. She is 95% 2 L nasal cannula. General description is a middle aged female lying in bed in no distress. Respiratory system: Unlabored breathing, clear to auscultation anteriorly. Heart S1, S2. Regular rate and rhythm. Abdomen soft, no tenderness. LABS: Hemoglobin is 12.1, white count 10.8. Blood and urine cultures came back negative. DIAGNOSTIC IMPRESSION AND PLAN: Patient admitted to the hospital with mental status changes and weakness with concern for possible urinary tract infection. Urine culture negative. Urine did show some yeast. Will give a three day course of oral Diflucan. No need for any systemic antibiotic. Continue supportive care. MMODL / IJN: [id number] /
[2018-02-06] MEDS ORDERED: POTASSIUM CHLORIDE ER 20 MEQ TAB.ER PO SCH (16:00)
[2018-02-10] MEDS ORDERED: METOLAZONE 2.5 MG TAB PO SCH (09:00)
== END 2018-02-06 13:56 | DRG 758 ==
LOC: EC 11:53 → 6SEL 15:38
PROVIDERS: ADMIT Internal Medicine Geriatric Medicine; ATTEND Internal Medicine Geriatric Medicine
DX: B37.49 Other urogenital candidiasis (principal); J96.11 Chronic respiratory failure with hypoxia; J96.12 Chronic respiratory failure with hypercapnia; J98.11 Atelectasis; Z68.43 Body mass index [BMI] 50.0-59.9, adult; D86.9 Sarcoidosis, unspecified; E11.65 Type 2 diabetes mellitus with hyperglycemia; E66.01 Morbid (severe) obesity due to excess calories; E87.6 Hypokalemia; G47.30 Sleep apnea, unspecified; G89.4 Chronic pain syndrome; I51.7 Cardiomegaly; K59.00 Constipation, unspecified; M48.02 Spinal stenosis, cervical region; M48.061 Spinal stenosis, lumbar region without neurogenic claudication; M51.9 Unspecified thoracic, thoracolumbar and lumbosacral intervertebral disc disorder; N31.9 Neuromuscular dysfunction of bladder, unspecified; N39.498 Other specified urinary incontinence; T38.0X5A Adverse effect of glucocorticoids and synthetic analogues, initial encounter; Z79.52 Long term (current) use of systemic steroids; Z79.891 Long term (current) use of opiate analgesic; Z79.899 Other long term (current) drug therapy; Z87.440 Personal history of urinary (tract) infections; Z87.891 Personal history of nicotine dependence; Z91.14 Patient's other noncompliance with medication regimen; Z99.81 Dependence on supplemental oxygen; Z79.4 Long term (current) use of insulin; M54.30 Sciatica, unspecified side
CPT/HCPCS: 36415; 51702; 71046; 74177; 78582; 80048; 80053; 81001; 82140; 82550; 82553; 82803; 83605; 83735; 83880; 84132; 84443; 84484; 85025; 85027; 85379; 85610; 85730; 87040; 87086; 93005; 93306; 94640; 94660; 94760; 96361; 96374; 99285

== ENCOUNTER 2018-02-22 12:55 | Inpatient (IN) | payer OTHER ==
[2018-02-22] MEDS ORDERED: SODIUM CHLORIDE 0.9% 1,000 ML IV STA (13:02)
[2018-02-22] MEDS ORDERED: SODIUM CHLORIDE 0.9% 500 ML IV STA (13:02)
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
[2018-02-22 13:30] LABS: Basophils % (A) 0 %; Eosinophils # (A) 0.1 k/uL (0-0.7); Eosinophils % (A) 1 %; HCT 39.4 % (34.0-46.0); Lymphocytes # (A) 1.7 k/uL (1.0-4.8); Lymphocytes % (A) 17 %; MCH 28.8 pg (25.0-35.0); MCHC 32.9 g/dL (31.0-37.0); MCV 87.6 fL (80.0-100.0); Mean Platelet Volume 6.2; Monocytes # (A) 0.3 k/uL (0-1.0); Monocytes % (A) 3 %; Neutrophils # (A) 7.9 k/uL (1.3-7.7); Neutrophils % (A) 78 %; Platelet Count 251 k/uL (150-450); RDW 15.6 % (11.5-15.5); WBC 10.1 k/uL (3.8-10.6)
[2018-02-22 13:35] LABS: Appearance,Urine Turbid (Clear); Bacteria,Urine Moderate /hpf; Bilirubin,Urine Negative (Negative); Blood,Urine Moderate (Negative); Color,Urine Yellow; Glucose,Urine (UA) Trace (Negative); Ketones,Urine 1+ (Negative); Leukocyte Esterase,Urine Large (Negative); Mucus,Urine Many /hpf; Nitrite,Urine Negative (Negative); PH, Urine 6.5 (5.0-8.0); Protein,Urine 2+ (Negative); RBC,Urine 8 /hpf (0-5); Specific Gravity,Urine 1.019 (1.001-1.035); Urobilinogen,Urine <2.0 mg/dL (<2.0); WBC,Urine 57 /hpf (0-5)
[2018-02-22 13:42] LABS: ALT 64 U/L (9-52); AST 37 U/L (14-36); Albumin 3.8 g/dL (3.5-5.0); Alkaline Phosphatase 47 U/L (38-126); Anion Gap 14 mmol/L; Blood Urea Nitrogen 19 mg/dL (7-17); Calcium 8.7 mg/dL (8.4-10.2); Carbon Dioxide 32 mmol/L (22-30); Chloride 80 mmol/L (98-107); Glucose 123 mg/dL (74-99); Magnesium 1.9 mg/dL (1.6-2.3); Potassium 3.2 mmol/L (3.5-5.1); Sodium 126 mmol/L (137-145); Total Bilirubin 0.8 mg/dL (0.2-1.3); Total Protein 6.3 g/dL (6.3-8.2)
--- NOTE | 2018-02-22 13:50 | XR ---
EXAMINATION TYPE: XR chest 1V portable DATE OF EXAM: 02/22/2018 COMPARISON: 02/03/2018 HISTORY: Fever TECHNIQUE: Single frontal view of the chest is obtained. FINDINGS: Bilateral pleural-based thickening. Heart size is stable. Right-sided PICC line noted. Int erstitium appears improved. IMPRESSION: 1. Interstitium is improved and now has a normal appearance. 2. There is minimal subsegmental residual atelectasis or resolving infiltrate..
[2018-02-22 14:05] LABS: Creatine Kinase MB 0.5 ng/mL (0.0-2.4)
[2018-02-22 14:08] LABS: Troponin I 0.059 ng/mL (0.000-0.034)
[2018-02-22] MEDS ORDERED: SODIUM CHLORIDE 0.9% 2,000 ML IV ONE (17:22)
[2018-02-22] MEDS ORDERED: PIPERACILLIN-TAZOBACTAM 3.375 GM in DEXTROSE/WATER 1 50ML.BAG IVPB STA (18:24)
[2018-02-22] MEDS ORDERED: ACETAMINOPHEN TAB 325 MG TAB PO PRN (18:27)
[2018-02-22] MEDS ORDERED: NALOXONE 0.4 MG/ML 1 ML VIAL IV PRN ×2 (18:27→22:24)
[2018-02-22] MEDS ORDERED: ONDANSETRON ODT 4 MG TAB PO PRN (18:31)
[2018-02-22] MEDS ORDERED: BISACODYL 10 MG SUPP RECTAL PRN (18:31)
[2018-02-22] MEDS ORDERED: DICLOFENAC SODIUM GEL 100 GM TUBE TOPICAL PRN (18:31)
[2018-02-22] MEDS ORDERED: ALBUTEROL NEBULIZED 2.5 MG/3 ML INHALATION PRN (18:31)
[2018-02-22] MEDS: SODIUM CHLORIDE 0.45% 1,000 ML IV SCH (20:45)
[2018-02-22] MEDS ORDERED: cefTAZidime 1 GM VIAL IVPB SCH (21:00)
[2018-02-22] MEDS ORDERED: IPRATROPIUM-ALBUTEROL 3 ML NEB INHALATION SCH (21:00)
[2018-02-22] MEDS ORDERED: SODIUM CHLORIDE 0.9% IRRIG 1,000 ML BTL IRRIGATION SCH (21:00)
[2018-02-22] MEDS: FLUTICASONE 110 MCG INHALER INHALATION SCH (21:23)
[2018-02-22 22:12] LABS: Glucose,Whole Blood 128 mg/dL (75-99)
[2018-02-22] MEDS: INSULIN ASPART 100 UNIT/ML 1 ML 10 ML VIAL SQ SCH (22:12)
[2018-02-22] MEDS: POTASSIUM CHLORIDE ER 20 MEQ TAB.ER PO SCH ×2 (22:15→22:21)
[2018-02-22] MEDS: GABAPENTIN 300 MG CAP PO SCH (22:16)
[2018-02-22] MEDS: MAGNESIUM OXIDE 400 MG TAB PO SCH ×2 (22:16→22:21)
[2018-02-22] MEDS ORDERED: CALCIUM CARBONATE 500 MG CHEWABLE PO PRN (22:24)
[2018-02-22] MEDS ORDERED: ONDANSETRON 4 MG/2 ML VIAL IVP PRN (22:24)
[2018-02-22] MEDS ORDERED: MELATONIN 3 MG TABLET PO PRN (22:24)
[2018-02-22] MEDS ORDERED: LORazepam 0.5 MG TAB PO PRN (22:24)
[2018-02-22 23:04] LABS: Creatine Kinase MB 0.5 ng/mL (0.0-2.4)
[2018-02-22 23:12] LABS: Troponin I 0.051 ng/mL (0.000-0.034)
[2018-02-23 04:30] LABS: Glucose,Whole Blood 118 mg/dL (75-99)
[2018-02-23 04:53] LABS: Creatine Kinase MB 0.5 ng/mL (0.0-2.4)
[2018-02-23 05:07] LABS: Troponin I 0.04 ng/mL (0.000-0.034)
[2018-02-23 06:04] LABS: Glucose,Whole Blood 115 mg/dL (75-99)
[2018-02-23] MEDS: INSULIN ASPART 100 UNIT/ML 1 ML 10 ML VIAL SQ SCH ×4 (06:35→22:23)
[2018-02-23] MEDS: FLUTICASONE 110 MCG INHALER INHALATION SCH ×2 (07:59→19:27)
[2018-02-23] MEDS: METHADONE 10 MG TAB PO SCH (09:48)
[2018-02-23] MEDS: SENNOSIDES-DOCUSATE SODIUM 1 EACH TAB PO SCH (09:49)
[2018-02-23] MEDS: METHADONE 5 MG TAB PO SCH (09:49)
[2018-02-23] MEDS: metFORMIN 500 MG TAB PO SCH ×2 (09:49→17:06)
[2018-02-23] MEDS: MAGNESIUM OXIDE 400 MG TAB PO SCH ×2 (09:49→22:22)
[2018-02-23] MEDS: SPIRONOLACTONE 25 MG TAB PO SCH (09:49)
[2018-02-23] MEDS: POTASSIUM CHLORIDE ER 20 MEQ TAB.ER PO SCH ×2 (09:50→22:21)
[2018-02-23] MEDS: predniSONE 10 MG TAB PO SCH (09:50)
[2018-02-23] MEDS: SODIUM CHLORIDE 0.45% 1,000 ML IV SCH (09:50)
[2018-02-23 09:55] LABS: Anion Gap 14 mmol/L; Blood Urea Nitrogen 15 mg/dL (7-17); Calcium 8.4 mg/dL (8.4-10.2); Carbon Dioxide 29 mmol/L (22-30); Chloride 85 mmol/L (98-107); Glucose 110 mg/dL (74-99); Sodium 128 mmol/L (137-145)
[2018-02-23 10:11] LABS: HCT 37.1 % (34.0-46.0); HGB 12.1 gm/dL (11.4-16.0); MCH 28.8 pg (25.0-35.0); MCHC 32.5 g/dL (31.0-37.0); MCV 88.7 fL (80.0-100.0); Mean Platelet Volume 7.8; Platelet Count 193 k/uL (150-450); RBC 4.18 m/uL (3.80-5.40); RDW 15.4 % (11.5-15.5)
[2018-02-23] MEDS: PIPERACILLIN-TAZOBACTAM 3.375 GM in DEXTROSE/WATER 1 50ML.BAG IVPB SCH ×3 (10:21→22:47)
--- NOTE | 2018-02-23 10:23 | XR ---
EXAMINATION TYPE: XR chest 1V DATE OF EXAM: 02/23/2018 COMPARISON: Prior chest 02/22/2018 HISTORY: Shortness of breath TECHNIQUE: Single frontal view of the chest is obtained. FINDINGS: Patient is rotated. Heart size is stable. There are overlying cardiac leads. No evident ai rspace disease, pneumothorax, or pleural effusion. Right jugular central venous catheter is stable. M inimal strand-like densities are present at the lung bases. IMPRESSION: Suspect basilar atelectasis.
[2018-02-23 10:27] LABS: VBG PH 7.59 (7.31-7.41)
[2018-02-23 10:28] LABS: Potassium 2.5 mmol/L (3.5-5.1)
[2018-02-23] MEDS ORDERED: VANCOMYCIN IV PER PHARMACY 1 EACH MISC MISCELLANE PRN (10:41)
[2018-02-23] MEDS ORDERED: VANCOMYCIN 1,500 MG in SODIUM CHLORIDE 0.9% 250 ML IVPB SCH (10:45)
[2018-02-23 10:47] LABS: Band Neutrophils % 2 %; Metamyelocytes % 1 %; Myelocytes % 2 %; Neutrophils % (M) 73 %; Nucleated Red Blood Cells 0 /100 WBC (0-0); Total Cells Counted 200
[2018-02-23 10:48] LABS: Toxic Granulation Present
[2018-02-23] MEDS ORDERED: Potassium Replacement Protocol 1 EACH MISC MISCELLANE PRN (10:48)
[2018-02-23 10:58] LABS: Magnesium 1.8 mg/dL (1.6-2.3)
[2018-02-23] MEDS: IPRATROPIUM-ALBUTEROL 3 ML NEB INHALATION SCH ×2 (10:58→19:27)
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
[2018-02-23 11:17] LABS: Glucose,Whole Blood 144 mg/dL (75-99)
[2018-02-23] MEDS: FAMOTIDINE 20 MG TAB PO SCH ×2 (11:48→22:22)
[2018-02-23] MEDS: POTASSIUM CHLORIDE 10 MEQ in WATER FOR INJECTION 1 100ML.BAG IVPB SCH ×4 (11:50→15:28)
[2018-02-23] MEDS: HEPARIN SODIUM,PORCINE 5,000 UNIT/ML 1 ML VIAL SQ SCH ×3 (12:16→22:23)
[2018-02-23] MEDS: VANCOMYCIN 2,250 MG in SODIUM CHLORIDE 0.9% 500 ML IVPB SCH ×2 (12:21→22:47)
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
[2018-02-23 13:04] LABS: ABG HCO3 29 mmol/L (21-25); ABG Oxygen Saturation 98.2 % (94-97); ABG PCO2 39 mmHg (35-45); ABG PH 7.49 (7.35-7.45); ABG PO2 90 mmHg (83-108); ABG TCO2 31 mmol/L (19-24)
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
[2018-02-23] MEDS: SODIUM CHLORIDE 0.9% 1,000 ML IV SCH (14:04)
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
[2018-02-23 16:13] LABS: Glucose,Whole Blood 176 mg/dL (75-99)
[2018-02-23] MEDS: BUDESONIDE 0.5 MG/2 ML NEBU INHALATION SCH (19:27)
[2018-02-23 20:11] LABS: Glucose,Whole Blood 169 mg/dL (75-99)
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
[2018-02-23] MEDS: GABAPENTIN 300 MG CAP PO SCH (22:22)
[2018-02-24 00:48] LABS: Potassium 3.3 mmol/L (3.5-5.1)
--- NOTE | 2018-02-24 01:15 | CT ---
EXAM: CT Head Without Intravenous Contrast CLINICAL HISTORY: Lethargic and confusion TECHNIQUE: Axial computed tomography images of the head/brain without intravenous contrast. CTDI is 42.2 mGy and DLP is 804.9 mGy-cm. This CT exam was performed using one or more of the following dose reduction techniques: automated exposure control, adjustment of the mA and/or kV according to patient size, and/or use of iterative reconstruction technique. COMPARISON: None. FINDINGS: Brain: There is mild global parenchymal volume loss which appears to be advanced for patient age. No hemorrhage. No significant white matter disease. Ventricles: Unremarkable. No ventriculomegaly. Bones/joints: Unremarkable. No acute fracture. Soft tissues: Unremarkable. Sinuses: Unremarkable as visualized. No acute sinusitis. Mastoid air cells: Unremarkable as visualized. No mastoid effusion. IMPRESSION: No intracranial hemorrhage or other acute intracranial abnormality.
[2018-02-24] MEDS: POTASSIUM CHLORIDE 10 MEQ in WATER FOR INJECTION 1 100ML.BAG IVPB SCH ×2 (03:05→04:26)
[2018-02-24] MEDS: SODIUM CHLORIDE 0.9% 1,000 ML IV SCH (05:45)
[2018-02-24 06:00] LABS: Glucose,Whole Blood 124 mg/dL (75-99)
[2018-02-24] MEDS: INSULIN ASPART 100 UNIT/ML 1 ML 10 ML VIAL SQ SCH ×3 (06:12→17:04)
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
[2018-02-24 06:25] LABS: Anion Gap 9 mmol/L; Blood Urea Nitrogen 14 mg/dL (7-17); Calcium 8.8 mg/dL (8.4-10.2); Carbon Dioxide 26 mmol/L (22-30); Chloride 93 mmol/L (98-107); Glucose 114 mg/dL (74-99); Magnesium 2.1 mg/dL (1.6-2.3); Sodium 128 mmol/L (137-145)
[2018-02-24 06:27] LABS: Basophils % (A) 0 %; Eosinophils % (A) 0 %; HGB 11.8 gm/dL (11.4-16.0); Lymphocytes # (A) 1.2 k/uL (1.0-4.8); Lymphocytes % (A) 13 %; MCH 28.5 pg (25.0-35.0); MCV 89.2 fL (80.0-100.0); Mean Platelet Volume 6.6; Monocytes # (A) 0.4 k/uL (0-1.0); Monocytes % (A) 4 %; Neutrophils # (A) 7.5 k/uL (1.3-7.7); Neutrophils % (A) 81 %; Platelet Count 230 k/uL (150-450); RBC 4.15 m/uL (3.80-5.40); RDW 15.4 % (11.5-15.5); WBC 9.3 k/uL (3.8-10.6)
[2018-02-24] MEDS: BUDESONIDE 0.5 MG/2 ML NEBU INHALATION SCH ×2 (07:30→19:29)
[2018-02-24] MEDS: IPRATROPIUM-ALBUTEROL 3 ML NEB INHALATION SCH ×3 (07:30→19:30)
[2018-02-24] MEDS: FLUTICASONE 110 MCG INHALER INHALATION SCH ×2 (07:31→19:29)
[2018-02-24] MEDS ORDERED: FUROSEMIDE 20 MG TAB PO SCH (09:00)
[2018-02-24] MEDS ORDERED: METOLAZONE 2.5 MG TAB PO SCH (09:00)
[2018-02-24] MEDS ORDERED: VANCOMYCIN IV PER PHARMACY 1 EACH MISC MISCELLANE PRN (09:19)
[2018-02-24] MEDS: HEPARIN SODIUM,PORCINE 5,000 UNIT/ML 1 ML VIAL SQ SCH ×3 (09:27→23:45)
[2018-02-24] MEDS: metFORMIN 500 MG TAB PO SCH ×2 (09:28→16:54)
[2018-02-24] MEDS: MAGNESIUM OXIDE 400 MG TAB PO SCH ×2 (09:28→20:07)
[2018-02-24] MEDS: FAMOTIDINE 20 MG TAB PO SCH ×2 (09:28→20:06)
[2018-02-24] MEDS: predniSONE 10 MG TAB PO SCH (09:28)
[2018-02-24] MEDS: POTASSIUM CHLORIDE ER 20 MEQ TAB.ER PO SCH ×2 (09:28→20:07)
[2018-02-24] MEDS: SPIRONOLACTONE 25 MG TAB PO SCH (09:29)
[2018-02-24] MEDS: SENNOSIDES-DOCUSATE SODIUM 1 EACH TAB PO SCH (09:30)
[2018-02-24] MEDS ORDERED: VANCOMYCIN 1,500 MG in SODIUM CHLORIDE 0.9% 250 ML IVPB SCH (09:30)
[2018-02-24] MEDS: METHADONE 10 MG TAB PO SCH (09:36)
[2018-02-24] MEDS: METHADONE 5 MG TAB PO SCH (09:36)
--- NOTE | 2018-02-24 10:02 | P.PN ---
<Emily Cooper E - Last Filed: 02/24/18 09:51> Subjective Progress Note Date: 02/24/18 History of present illness: This is a 47-year-old female patient well-known to our services being seen examined and evaluated today on rounds. She does have a long-standing history of COPD, sarcoidosis on many other comorbidities. The patient is on long-term high-dose steroids, she has trialed to wean down in the past however each time she goes into respiratory distress and she continues to refuse to wean any further. The importance of finding a good balance between her prednisone dosing and wound healing has been discussed multiple times with the patient at length. She also does have a long-standing history of right lower extremity cellulitis and nonhealing wound. She does have a PICC line inserted and does follow with Dr. Rivera for infectious disease. Patient states she also has multiple recurrent UTIs and urinary retention. The patient was brought into the emergency room via EMS from her F with lethargy and increased temperature. The patient came in with a indwelling Lopez catheter and was being treated for a UTI at the [facility]. She currently is on 3 L of supplemental oxygen which is what she wears at all times as her baseline. She does utilize BiPAP at night and as needed. She states she has had some fevers over the past day and she has been tired. She does complain of a cough that is nonproductive. She is a nonsmoker. She has been using DuoNeb and budesonide at the [facility]. She also was noted to have a fever of 100.8 in the ER. Her lactic acid was 2.1. She did have hyponatremia with a sodium of 126, hypokalemia of 3.2 on admission CO2 of 30 to, BUN 19, creatinine 0.58. Her troponins were elevated and cardiology was put on consult. She did receive 2 L of IV fluid bolus in the ER. She was also noted to have a UTI and admission. Today her sodium has improved slightly to 128, her potassium has dropped down to 2.5. Her troponins remained elevated. She has no white count, she does have a low- grade temperature of 99.2 this morning. She is tachycardic at 105, she was slightly tachypneic overnight. Interval history: 02/24/2018patient is being seen examined and evaluated today on rounds. She continues to be somewhat lethargic but easily arousable, generally more awake today than yesterday. She has been seen by neurology and they recommended a brain CT and EEG. The brain CT was reviewed and shows no abnormalities. She is also being seen by nephrology her sodium continues to be 128. Infectious disease is on the case and has adjusted her antibiotics to Zosyn and Fortaz at this time. Urine culture showing gram-negative bacilli. Her Lopez catheter was changed. Patient's family is requesting she be transferred to [facility] for further care. She did utilize the BiPAP overnight. She continues on 3 L of supplemental oxygen via nasal cannula. She has been afebrile overnight, hemodynamically stable. No further complaints. Objective - Vital Signs Vital signs: Vital Signs Temp 98.4 F 02/24/18 08:00 Pulse 91 02/24/18 08:00 Resp 18 02/24/18 08:00 BP 130/77 02/24/18 08:00 Pulse Ox 97 02/24/18 08:00 Intake & Output 02/23/18 02/24/18 02/24/18 18:59 06:59 18:59 Intake Total 1030 550 100 Output Total 500 Balance 1030 50 100 Weight 167 kg Intake: Intake, IV Titration 1030 550 100 Amount Piperacillin-Tazobactam 3 50 50 .375 gm In Dextrose/Water 1 50ml.bag @ 12.5 mls/hr IVPB Q8HR [facility] Rx#: [id number] Potassium Chloride 10 meq 400 In Water For Injection 1 100ml.bag @ 100 mls/hr IVPB Q1HR [facility] Rx#: [id number] Sodium Chloride 0.45% 1, 80 000 ml @ 80 mls/hr IV . [id number] [facility] Rx#:[id number] Vancomycin 2,250 mg In 500 500 Sodium Chloride 0.9% 500 ml @ 167 mls/hr IVPB Q12H [facility] Rx#:[id number] cefTAZidime 1 gm In 100 Sodium Chloride 0.9% 50 ml @ 100 mls/hr IVPB Q12HR [facility] Rx#:[id number] Output: Urine 500 Other: Voiding Method Indwelling Catheter Indwelling Catheter Indwelling Catheter - Exam GENERAL EXAM: Alert, lethargic, comfortable in no apparent distress. Morbidly obese HEAD: Normocephalic. EYES: Normal reaction of pupils, equal size. NOSE: Clear with pink turbinates. THROAT: No erythema or exudates. NECK: No masses, no JVD. CHEST: No chest wall deformity. Right-sided [place] port site LUNGS: Diminished throughout with poor air entry with no crackles, wheeze, rhonchi or dullness. CVS: S1 and S2 normal with no audible mumurs, regular rhythm. ABDOMEN: No hepatosplenomegaly, normal bowel sounds, no guarding or rigidity. EXTREMITIES: +2-3 edema noted, pedal pulses palpable. Cellulitis of the right lower extremity CENTRAL NERVOUS SYSTEM: No focal deficits, tone is normal in all 4 extremities. - Labs CBC & Chem 7: 02/24/18 05:26 02/24/18 05:26 Labs: Abnormal Lab Results - Last 24 Hours (Table) 02/23/18 02/23/18 02/23/18 Range/Units 03:41 03:41 03:41 Metamyelocytes # (Man) 0.10 H (0) k/uL Myelocytes # (Manual) 0.20 H (0) k/uL ABG pH (7.35-7.45) ABG HCO3 (21-25) mmol/L ABG Total CO2 (19-24) mmol/L ABG O2 Saturation (94-97) % VBG pH (7.31-7.41) VBG pCO2 (37-51) mmHg Sodium 128 L (137-145) mmol/L Potassium 2.5 L* (3.5-5.1) mmol/L Chloride 85 L (98-107) mmol/L Glucose 110 H (74-99) mg/dL POC Glucose (mg/dL) (75-99) mg/dL Osmolality 267 L (280-301) mosm/kg 02/23/18 02/23/18 02/23/18 Range/Units 10:11 11:10 13:02 Metamyelocytes # (Man) (0) k/uL Myelocytes # (Manual) (0) k/uL ABG pH 7.49 H (7.35-7.45) ABG HCO3 29 H (21-25) mmol/L ABG Total CO2 31 H (19-24) mmol/L ABG O2 Saturation 98.2 H (94-97) % VBG pH 7.59 H (7.31-7.41) VBG pCO2 29 L (37-51) mmHg Sodium (137-145) mmol/L Potassium (3.5-5.1) mmol/L Chloride (98-107) mmol/L Glucose (74-99) mg/dL POC Glucose (mg/dL) 144 H (75-99) mg/dL Osmolality (280-301) mosm/kg 02/23/18 02/23/18 02/23/18 Range/Units 16:11 18:27 20:10 Metamyelocytes # (Man) (0) k/uL Myelocytes # (Manual) (0) k/uL ABG pH (7.35-7.45) ABG HCO3 (21-25) mmol/L ABG Total CO2 (19-24) mmol/L ABG O2 Saturation (94-97) % VBG pH (7.31-7.41) VBG pCO2 (37-51) mmHg Sodium 128 L (137-145) mmol/L Potassium (3.5-5.1) mmol/L Chloride (98-107) mmol/L Glucose (74-99) mg/dL POC Glucose (mg/dL) 176 H 169 H (75-99) mg/dL Osmolality (280-301) mosm/kg 02/24/18 02/24/18 02/24/18 Range/Units 00:23 05:26 05:59 Metamyelocytes # (Man) (0) k/uL Myelocytes # (Manual) (0) k/uL ABG pH (7.35-7.45) ABG HCO3 (21-25) mmol/L ABG Total CO2 (19-24) mmol/L ABG O2 Saturation (94-97) % VBG pH (7.31-7.41) VBG pCO2 (37-51) mmHg Sodium 128 L 128 L (137-145) mmol/L Potassium 3.3 L (3.5-5.1) mmol/L Chloride 93 L (98-107) mmol/L Glucose 114 H (74-99) mg/dL POC Glucose (mg/dL) 124 H (75-99) mg/dL Osmolality (280-301) mosm/kg Microbiology - Last 24 Hours (Table) 02/22/18 13:13 Blood Culture Gram Stain - Preliminary Blood 02/22/18 13:13 Urine Culture - Preliminary Urine,Catheterized Gram Neg Bacilli 02/22/18 13:13 Blood Culture - Final Blood Assessment and Plan Assessment: Assessment Metabolic encephalopathy Acute on chronic hypoxic respiratory failure requiring supplemental oxygen Acute hypercapnic respiratory failure Respiratory alkalosis related to sepsis 3/4 SIRS Sepsis with UTI Present on admission UTI Dehydration Basilar atelectasis doubt pneumonia at this time Sarcoidosis Morbid obesity Chronic pain syndrome AMBER with obesity hypoventilation syndrome Elevated troponins Hyponatremia Hypokalemia Neurogenic bladder Plan Family is requesting transfer to the [facility], primary care team and social work is looking into this Medications have been reviewed and will be continued as ordered. Infectious disease on consult Neurology on consult and nephrology on consult Cardiology on consult Blood culture and urine culture pending obtain sputum culture Chronic high-dose steroid dependent related to sarcoidosis Nebulizer treatments with DuoNeb and budesonide Continue with pulmonary hygiene, coughing and deep breathing exercises, and supportive care. Supplemental oxygen to maintain oxygen saturations of 92% or better. BiPAP at night and when necessary Continue nebulizer treatments. Initiate and encourage incentive spirometer Continue to monitor and replace electrolytes per protocol Weight loss recommended Increase activity as tolerated PT and OT GI and DVT prophylaxis. We will continue to monitor labs/results and adjust treatment as necessary. I performed an examination of the patient and discussed their management with the nurse practitioner. I have reviewed the nurse practitioner's note and agree with the documented findings and plan of care. <Elda Palencia A - Last Filed: 02/24/18 12:52> Objective - Vital Signs Vital signs: Vital Signs Temp 98.4 F 02/24/18 08:00 Pulse 89 02/24/18 11:21 Resp 17 02/24/18 11:21 BP 163/90 02/24/18 11:21 Pulse Ox 96 02/24/18 11:21 Intake & Output 02/23/18 02/24/18 02/24/18 18:59 06:59 18:59 Intake Total 1030 550 150 Output Total 500 Balance 1030 50 150 Weight 167 kg Intake: Intake, IV Titration 1030 550 100 Amount Piperacillin-Tazobactam 3 50 50 .375 gm In Dextrose/Water 1 50ml.bag @ 12.5 mls/hr IVPB Q8HR COUNTS INCLUDE 234 BEDS AT THE [facility] Rx#: [id number] Potassium Chloride 10 meq 400 In Water For Injection 1 100ml.bag @ 100 mls/hr IVPB Q1HR COUNTS INCLUDE 234 BEDS AT THE [facility] Rx#: [id number] Sodium Chloride 0.45% 1, 80 000 ml @ 80 mls/hr IV . [id number] COUNTS INCLUDE 234 BEDS AT THE [facility] Rx#:[id number] Vancomycin 2,250 mg In 500 500 Sodium Chloride 0.9% 500 ml @ 167 mls/hr IVPB Q12H [facility] Rx#:[id number] cefTAZidime 1 gm In 100 Sodium Chloride 0.9% 50 ml @ 100 mls/hr IVPB Q12HR COUNTS INCLUDE 234 BEDS AT THE [facility] Rx#:[id number] Oral 50 Output: Urine 500 Other: Voiding Method Indwelling Catheter Indwelling Catheter Indwelling Catheter - Labs CBC & Chem 7: 02/24/18 05:26 02/24/18 05:26 Labs: Abnormal Lab Results - Last 24 Hours (Table) 02/23/18 02/23/18 02/23/18 Range/Units 13:02 16:11 18:27 ABG pH 7.49 H (7.35-7.45) ABG HCO3 29 H (21-25) mmol/L ABG Total CO2 31 H (19-24) mmol/L ABG O2 Saturation 98.2 H (94-97) % Sodium 128 L (137-145) mmol/L Potassium (3.5-5.1) mmol/L Chloride (98-107) mmol/L Glucose (74-99) mg/dL POC Glucose (mg/dL) 176 H (75-99) mg/dL 02/23/18 02/24/18 02/24/18 Range/Units 20:10 00:23 05:26 ABG pH (7.35-7.45) ABG HCO3 (21-25) mmol/L ABG Total CO2 (19-24) mmol/L ABG O2 Saturation (94-97) % Sodium 128 L 128 L (137-145) mmol/L Potassium 3.3 L (3.5-5.1) mmol/L Chloride 93 L (98-107) mmol/L Glucose 114 H (74-99) mg/dL POC Glucose (mg/dL) 169 H (75-99) mg/dL 02/24/18 02/24/18 Range/Units 05:59 11:31 ABG pH (7.35-7.45) ABG HCO3 (21-25) mmol/L ABG Total CO2 (19-24) mmol/L ABG O2 Saturation (94-97) % Sodium (137-145) mmol/L Potassium (3.5-5.1) mmol/L Chloride (98-107) mmol/L Glucose (74-99) mg/dL POC Glucose (mg/dL) 124 H 114 H (75-99) mg/dL Microbiology - Last 24 Hours (Table) 02/22/18 13:13 Blood Culture Gram Stain - Preliminary Blood Blood Culture - Preliminary Coagulase Negative Staph 02/22/18 13:13 Blood Culture - Final Blood 02/22/18 13:13 Urine Culture - Preliminary Urine,Catheterized Gram Neg Bacilli Assessment and Plan Assessment: Patient seen and examined. Taper Prednisone to 60 mg daily[address]iscuss[address] Dr. Anderson who knows the patient well. Patient was previously seen by sarcoid specialist at [facility], Dr. Bijan Charles. Neurology recommendations appreciated. Doubt neurosarcoid. ABX per ID. PT and OT. Weight loss is highly recommended. ~Elda Palencia DO
[2018-02-24 11:36] LABS: Glucose,Whole Blood 114 mg/dL (75-99)
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
[2018-02-24] MEDS: VANCOMYCIN 2,250 MG in SODIUM CHLORIDE 0.9% 500 ML IVPB SCH ×2 (12:01→23:45)
--- NOTE | 2018-02-24 12:46 | PN ---
PROGRESS NOTE DATE OF SERVICE: 02/24/2018 REASON FOR FOLLOWUP VISIT: 1. Catheter-associated urinary tract infection. 2. Positive blood cultures. INTERVAL HISTORY: The patient's blood culture reported positive this morning with a gram-positive coagulase, subsequent finalized as coagulase negative Staph. The patient seemed to be more awake and alert today. She is breathing comfortably. Denies having any chest pain, shortness of breath, or any cough. No significant abdominal pain and no diarrhea. PHYSICAL EXAMINATION: Blood pressure 130/77, pulse of 91, temperature 98.4, she is 97% on 3 L nasal cannula. General description is a middle-aged female, lying in bed in no distress. RESPIRATORY SYSTEM: Unlabored breathing, clear to auscultation anteriorly. HEART: S1, S2. Regular rate and rhythm. ABDOMEN: Soft, no tenderness. LABS: Hemoglobin is 11.8, white count of 9.3, BUN of 14, creatinine 0.63. Urine with gram- negative bacilli. Blood culture is coagulase negative Staph. DIAGNOSTIC IMPRESSION AND PLAN: 1. Patient with positive blood culture with coagulase negative Staph could be more likely skin contamination. However, the patient did have a Infante catheter infection, the same needs to be ruled out. We will repeat blood cultures from the Hickmann catheter as well as the peripherally and: hold on the addition of vancomycin at this point. 2. Patient with catheter-associated urinary tract infection showing gram-negative, last urine culture 829 was Pseudomonas with no nausea, could be the same pathogen. She is currently covered, the Fort[place] will be continued. RN has been advised to change her Lopez catheter, has not been changed in the last week thank. MMODL / IJN: [id number] /
[2018-02-24] MEDS ORDERED: FUROSEMIDE 40 MG TAB PO SCH (14:00)
--- NOTE | 2018-02-24 14:52 | PN ---
PROGRESS NOTE Patient is seen for followup for hyponatremia. She was maintained on normal saline. Her sodium has not changed. It is staying at 128. Urine osmolality was elevated at 401. Currently patient is lying in bed. She is comfortable, not in any acute distress. Blood pressure was 130/77, heart rate 91 per minute. Patient is afebrile. EXAMINATION OF THE HEART: S1, S2. EXAMINATION OF LUNGS: Decreased breath sounds at bases. ABDOMEN: Soft, non-tender. Examination of lower extremities shows edema 1+ bilaterally. OPTOMETRY PROFESSOR exam is grossly intact. Labs show sodium of 128. Potassium was 4.0, serum creatinine 0.63. ASSESSMENT: 1. Hyponatremia, possibly related to syndrome of inappropriate antidiuretic hormone, given the high urine osmolality. Patient also appears hypervolemic. I will discontinue the IV fluids. Patient will be maintained on fluid restriction. She is encouraged to increase her oral protein intake. We will repeat another serum sodium this evening and she may need a dose of IV Lasix, depending on her labs. 2. Positive blood cultures for coagulase-negative Staph, most likely skin contamination. 3. Catheter-associated urinary tract infection with gram-negative bacteria with urine cultures growing pseudomonas on February 15. PLAN: Continue with antibiotics. Hep-Lock IV fluids. Repeat sodium this evening. Possible IV Lasix, depending on repeat labs. MMODL / IJN: [id number] /
[2018-02-24 16:58] LABS: Glucose,Whole Blood 169 mg/dL (75-99)
[2018-02-24] MEDS: GABAPENTIN 300 MG CAP PO SCH (20:06)
[2018-02-24 21:29] LABS: Glucose,Whole Blood 170 mg/dL (75-99)
--- NOTE | 2018-02-24 22:25 | P.PN ---
Subjective Progress Note Date: 02/24/18 The patient is a 47-year-old woman who was admitted to the hospital on 2017 from the [facility]. She currently a resident at [facility] due to sarcoidosis and debility. Shouldn't is apparently been on chronic methadone. She uses BiPAP in his home O2 dependent. She has old his obesity hypoventilation syndrome. She is at subacute rehab. She has been treated for wound infection. She has chronic lymphedema and pulmonary sarcoidosis and presented to the hospital with fever and lethargy. The patient has multiple medical comorbidities including spinal stenosis diabetes neurogenic bladder sarcoidosis and chronic respiratory failure. Patient continues to be very drowsy and lethargic. She is arousable and able to say a few words. She is oriented to person and she knows she is in [place] and she is aware of the year. She is being treated for sepsis and vancomycin has been started today. Objective - Vital Signs Vital signs: Vital Signs Temp 97.1 F L 02/24/18 20:00 Pulse 86 02/24/18 20:00 Resp 18 02/24/18 20:00 BP 143/83 02/24/18 20:00 Pulse Ox 99 02/24/18 20:00 Intake & Output 02/24/18 02/24/18 02/25/18 06:59 18:59 06:59 Intake Total 550 450 Output Total 500 Balance 50 450 Weight 167 kg Intake: Intake, IV Titration 550 100 Amount Piperacillin-Tazobactam 3 50 .375 gm In Dextrose/Water 1 50ml.bag @ 12.5 mls/hr IVPB Q8HR [facility] Rx#: [id number] Vancomycin 2,250 mg In 500 Sodium Chloride 0.9% 500 ml @ 167 mls/hr IVPB Q12H [facility] Rx#:[id number] cefTAZidime 1 gm In 100 Sodium Chloride 0.9% 50 ml @ 100 mls/hr IVPB Q12HR [facility] Rx#:[id number] Oral 350 Output: Urine 500 Other: Voiding Method Indwelling Catheter Indwelling Catheter Indwelling Catheter - Constitutional General appearance: Present: morbidly obese - EENT Eyes: Present: PERRLA - Cardiovascular Rhythm: regular - Neurologic Neurologic Comment(s): Neurologic examination: Mental status: The patient is lethargic but when arousable she is able to say some words and follow a few simple commands. She knows she is in [place]. She knows the year. She is able to give her name. X Cranial nerve examination pupils are 3 mm and equal and reactive. There is no facial asymmetry. Next Motor examination she is able to lift both arms up slightly against gravity with the right arm being weaker. She is able to wiggle the toes on the left Coordination and gait could not be checked - Musculoskeletal Musculoskeletal: Present: generalized weakness - Labs CBC & Chem 7: 02/24/18 05:26 02/24/18 18:22 Labs: Abnormal Lab Results - Last 24 Hours (Table) 02/24/18 02/24/18 02/24/18 Range/Units 00:23 05:26 05:59 Sodium 128 L 128 L (137-145) mmol/L Potassium 3.3 L (3.5-5.1) mmol/L Chloride 93 L (98-107) mmol/L Glucose 114 H (74-99) mg/dL POC Glucose (mg/dL) 124 H (75-99) mg/dL 02/24/18 02/24/18 02/24/18 Range/Units 11:31 16:52 18:22 Sodium 128 L (137-145) mmol/L Potassium (3.5-5.1) mmol/L Chloride (98-107) mmol/L Glucose (74-99) mg/dL POC Glucose (mg/dL) 114 H 169 H (75-99) mg/dL 02/24/18 Range/Units 21:27 Sodium (137-145) mmol/L Potassium (3.5-5.1) mmol/L Chloride (98-107) mmol/L Glucose (74-99) mg/dL POC Glucose (mg/dL) 170 H (75-99) mg/dL Microbiology - Last 24 Hours (Table) 02/22/18 13:13 Blood Culture Gram Stain - Preliminary Blood Blood Culture - Preliminary Coagulase Negative Staph 02/22/18 13:13 Blood Culture - Final Blood 02/22/18 13:13 Urine Culture - Preliminary Urine,Catheterized Gram Neg Bacilli Assessment and Plan (1) Metabolic encephalopathy Current Visit: Yes Status: Acute SNOMED Code(s): 73526252 (2) Dehydration Current Visit: Yes Status: Acute Code(s): E86.0 - DEHYDRATION SNOMED Code( s): 54719763 (3) UTI (urinary tract infection) Current Visit: Yes Status: Acute SNOMED Code(s): 26998904 (4) Failure of outpatient treatment Current Visit: Yes Status: Acute SNOMED Code(s): 452812751 (5) Hyponatremia Current Visit: Yes Status: Acute SNOMED Code(s): 03654545 Plan: The patient is a 47-year-old woman with history of multiple medical comorbidities who presented to the hospital with fever and lethargy. She continues to have lethargy and is slightly more alert today compared to yesterday. She is being treated for sarcoidosis , obesity hypoventilation syndrome, respiratory failure and has history of steroid myopathy and drop head syndrome as well as respiratory alkalosis. Patient is being treated for sepsis and UTI. The patient had a CT of scan of the head which showed no acute intracranial abnormality. She had an EEG showed diffuse slowing without any epileptiform discharges. Her lethargy is likely secondary to multiple medical comorbidities as mentioned above.
--- NOTE | 2018-02-24 22:49 | EEG ---
ELECTROENCEPHALOGRAM REPORT DATE OF EE02/24/2018. ELECTROENCEPHALOGRAPHIC EXAMINATION REPORT: INDICATION FOR EXAMINATION: This patient is a 47-year-old female being evaluated for altered mental status and confusion. AGE: [age]. EEG FINDINGS: A routine 21-channel awake digital EEG recording was accomplished utilizing the 10-20 international system with bipolar and referential montages. The background activity in the most alert resting state consists of a low to medium amplitude, poorly developed and poorly sustained 5-6 Hz activity over the posterior head regions. This posterior rhythm attenuates minimally to eye opening. There is a moderate amount of low amplitude 18-20 Hz beta activity seen in a generalized fashion throughout the tracing. Hyperventilation was not performed. Photic stimulation at flash frequencies of 2-30 Hz produced a minimal occipital driving response. No epileptiform discharges were seen. IMPRESSION: This EEG is moderately abnormal in a diffuse fashion due to slowing of the EEG background. The EEG failed to reveal any focal, lateralized, or epileptiform abnormalities. Clinical correlation is recommended. MMODL / IJN: [id number] /
[2018-02-25 06:51] LABS: Glucose,Whole Blood 108 mg/dL (75-99)
[2018-02-25] MEDS: BUDESONIDE 0.5 MG/2 ML NEBU INHALATION SCH ×2 (07:29→19:30)
[2018-02-25] MEDS: IPRATROPIUM-ALBUTEROL 3 ML NEB INHALATION SCH ×3 (07:29→19:30)
[2018-02-25] MEDS: INSULIN ASPART 100 UNIT/ML 1 ML 10 ML VIAL SQ SCH ×5 (10:04→23:33)
[2018-02-25] MEDS: HEPARIN SODIUM,PORCINE 5,000 UNIT/ML 1 ML VIAL SQ SCH ×3 (10:27→23:37)
[2018-02-25] MEDS: FAMOTIDINE 20 MG TAB PO SCH ×2 (10:27→21:17)
[2018-02-25] MEDS: MAGNESIUM OXIDE 400 MG TAB PO SCH ×2 (10:27→21:17)
[2018-02-25] MEDS: metFORMIN 500 MG TAB PO SCH ×2 (10:28→17:08)
[2018-02-25] MEDS: predniSONE 10 MG TAB PO SCH (10:28)
[2018-02-25] MEDS: SENNOSIDES-DOCUSATE SODIUM 1 EACH TAB PO SCH (10:28)
[2018-02-25] MEDS: SPIRONOLACTONE 25 MG TAB PO SCH (10:29)
[2018-02-25] MEDS: POTASSIUM CHLORIDE ER 20 MEQ TAB.ER PO SCH ×3 (10:34→21:17)
[2018-02-25] MEDS: METHADONE 10 MG TAB PO SCH (10:37)
[2018-02-25] MEDS: METHADONE 5 MG TAB PO SCH (10:38)
[2018-02-25 10:43] LABS: Potassium 4.2 mmol/L (3.5-5.1)
--- NOTE | 2018-02-25 11:45 | P.PN ---
Subjective Progress Note Date: 02/25/18 Principal diagnosis: Acute encephalopathy and urinary tract infection Patient continued to use BiPAP all night currently is lethargic but arousable to voice command following commands appropriately and moving all 4 extremities no major events reported by nursing staff Objective - Vital Signs Vital signs: Vital Signs Temp 97.0 F L 02/25/18 09:00 Pulse 75 02/25/18 09:50 Resp 16 02/25/18 09:50 BP 178/79 02/25/18 09:00 Pulse Ox 100 02/25/18 09:00 Intake & Output 02/24/18 02/25/18 02/25/18 18:59 06:59 18:59 Intake Total 450 10 Balance 450 10 Weight 166.5 kg 166.5 kg Intake: Intake, IV Titration 100 Amount cefTAZidime 1 gm In 100 Sodium Chloride 0.9% 50 ml @ 100 mls/hr IVPB Q12HR [facility] Rx#:[id number] Oral 350 10 Other: Voiding Method Indwelling Catheter Indwelling Catheter Indwelling Catheter # Bowel Movements 0 - Exam Gen.: in stated age, no acute distress, morbidly obese Heart: Normal S1-S2 Lungs: Diminished bilaterally Abdomen: Soft, no tenderness, positive bowel sounds in all 4 quadrant no guarding or rebound Skin: No new rash Psych: Alert and oriented 3 Neuro: No focal deficit Lower extremity chronic lymphedema - Labs CBC & Chem 7: 02/24/18 05:26 02/25/18 10:05 Labs: Abnormal Lab Results - Last 24 Hours (Table) 02/24/18 02/24/18 02/24/18 Range/Units 16:52 18:22 21:27 Sodium 128 L (137-145) mmol/L Creatinine (0.52-1.04) mg/dL POC Glucose (mg/dL) 169 H 170 H (75-99) mg/dL 02/25/18 02/25/18 Range/Units 06:30 10:05 Sodium 132 L (137-145) mmol/L Creatinine 1.11 H (0.52-1.04) mg/dL POC Glucose (mg/dL) 108 H (75-99) mg/dL Microbiology - Last 24 Hours (Table) 02/24/18 11:33 Blood Culture Gram Stain - Preliminary Blood 02/24/18 12:08 Blood Culture - Final Blood 02/22/18 13:13 Blood Culture Gram Stain - Final Blood Blood Culture - Preliminary Coagulase Negative Staph Diphtheroid species 02/22/18 13:13 Urine Culture - Final Urine,Catheterized Pseudomonas aeruginosa 02/22/18 13:13 Blood Culture - Final Blood Assessment and Plan Assessment: 1. Acute respiratory failure with hypoxia and hypercapnia 2. Acute metabolic encephalopathy seems to be resolving. 3. Acute urinary tract infection with Pseudomonas on urine culture. 4. Chronic pain syndrome. 5. Chronic lower extremity lymphedema. 6. Morbid obesity. 7. Neurogenic bladder. 8. Debility and deconditioning Would continue with BiPAP support wean off as tolerated specially for meals and encourage the use of BiPAP at this point will continue IV antibiotics and follow up on final culture results and sensitivity follow-up with infectious disease recommendation. With continue tight glycemic control repeat blood work in the morning and follow-up on vital signs closely. We'll consult physical and acute patient will therapy. Plan discussed with patient and nursing staff at the bedside
[2018-02-25 12:12] LABS: Glucose,Whole Blood 105 mg/dL (75-99)
[2018-02-25] MEDS: VANCOMYCIN 2,250 MG in SODIUM CHLORIDE 0.9% 500 ML IVPB SCH (12:35)
[2018-02-25] MEDS ORDERED: FUROSEMIDE 10 MG/ML 4 ML VIAL IV STA (15:22)
--- NOTE | 2018-02-25 16:07 | P.PN ---
Subjective Progress Note Date: 02/25/18 The patient is a 47-year-old woman who was admitted to the hospital on 2017 from the group home. She currently a resident at [facility] due to sarcoidosis and debility. She presented to the hospital with fever and lethargy. She is slightly more alert. She is responding more to questions asked of her. She did is still very sleepy. The patient is apparently been on chronic methadone. She uses BiPAP and is home O2 dependent. She has been treated for wound infection. She has chronic lymphedema and pulmonary sarcoidosis. The patient has multiple medical comorbidities including spinal stenosis diabetes neurogenic bladder sarcoidosis , obesity hypoventilation syndrome and chronic respiratory failure. Objective - Vital Signs Vital signs: Vital Signs Temp 97.3 F L 02/25/18 13:00 Pulse 86 02/25/18 15:26 Resp 18 02/25/18 13:00 BP 140/73 02/25/18 13:00 Pulse Ox 100 02/25/18 13:00 Intake & Output 02/24/18 02/25/18 02/25/18 18:59 06:59 18:59 Intake Total 450 250 Output Total 450 350 Balance 0 -100 Weight 166.5 kg 166.5 kg Intake: Intake, IV Titration 100 Amount cefTAZidime 1 gm In 100 Sodium Chloride 0.9% 50 ml @ 100 mls/hr IVPB Q12HR [facility] Rx#:[id number] Oral 350 250 Output: Urine 450 350 Other: Voiding Method Indwelling Catheter Indwelling Catheter Indwelling Catheter # Bowel Movements 1 0 - Constitutional General appearance: Present: morbidly obese - EENT Eyes: Present: EOMI, PERRLA - Respiratory Respiratory: bilateral: CTA - Cardiovascular Rhythm: regular - Neurologic Neurologic Comment(s): Neurologic examination: Mental status: The patient is sleeping in bed but easily arousable. She is able to give her name. She knows she is in the in [place]. She knows the year is 2017. She recalled she had 2 now for lunch. There was no a aphasia or dysarthria Neurologic: Present: CNII-XII intact - Musculoskeletal Musculoskeletal: Present: generalized weakness - Labs CBC & Chem 7: 02/24/18 05:26 02/25/18 10:05 Labs: Abnormal Lab Results - Last 24 Hours (Table) 02/24/18 02/24/1818 Range/Units 16:52 18:22 21:27 Sodium 128 L (137-145) mmol/L Creatinine (0.52-1.04) mg/dL POC Glucose (mg/dL) 169 H 170 H (75-99) mg/dL 02/25/18 02/25/18 02/25/18 Range/Units 06:30 10:05 11:49 Sodium 132 L (137-145) mmol/L Creatinine 1.11 H (0.52-1.04) mg/dL POC Glucose (mg/dL) 108 H 105 H (75-99) mg/dL Microbiology - Last 24 Hours (Table) 02/24/18 11:33 Blood Culture - Preliminary Blood No Growth after 24 hours 02/24/18 11:33 Blood Culture Gram Stain - Preliminary Blood 02/24/18 12:08 Blood Culture - Final Blood 02/22/18 13:13 Blood Culture Gram Stain - Final Blood Blood Culture - Preliminary Coagulase Negative Staph Diphtheroid species 02/22/18 13:13 Urine Culture - Final Urine,Catheterized Pseudomonas aeruginosa Assessment and Plan (1) Metabolic encephalopathy Current Visit: Yes Status: Acute SNOMED Code(s): 30657915 (2) Dehydration Current Visit: Yes Status: Acute Code(s): E86.0 - DEHYDRATION SNOMED Code( s): 43281981 (3) UTI (urinary tract infection) Current Visit: Yes Status: Acute SNOMED Code(s): 17823606 (4) Failure of outpatient treatment Current Visit: Yes Status: Acute SNOMED Code(s): 646642584 (5) Hyponatremia Current Visit: Yes Status: Acute SNOMED Code(s): 65839683 Plan: The patient is a 47-year-old woman with history of multiple medical comorbidities who presented to the hospital with fever and lethargy. She continues to have lethargy and is slightly more alert today compared to yesterday. The patient has metabolic encephalopathy. She is being treated for sarcoidosis , obesity hypoventilation syndrome, respiratory failure and has history of steroid myopathy and drop head syndrome as well as respiratory alkalosis. Patient is being treated for sepsis and UTI. The patient had a CT of scan of the head which showed no acute intracranial abnormality. She had an EEG showed diffuse slowing without any epileptiform discharges.
[2018-02-25 16:32] LABS: Glucose,Whole Blood 178 mg/dL (75-99)
--- NOTE | 2018-02-25 18:59 | PN ---
PROGRESS NOTE She was seen on 02/25/2018. Her pain is under control. She is less short of breath. She is sleepy, but arousable, and has been using BiPAP. PHYSICAL EXAMINATION: Respiratory rate is 16, pulse rate is 75, temperature 97, blood pressure 178/79, O2 sat on 35% FiO2 on BiPAP is 100%. HEENT is unremarkable. Chest reveals decreased breath sounds. No wheeze. Cardiovascular system reveals an S1, S2. Abdomen is soft. There is 1+ to 2+ pedal edema. There is some erythema of her right lower extremity. IMPRESSION: At this time is: 1. Acute on chronic respiratory failure with CO2 retention. 2. Obesity hypoventilation syndrome. 3. Part of the elevated pCO2 normally may in part be due to pain medication she is on, including methadone. 4. Sarcoidosis for which we shall start to taper her steroids. Hopefully, this can be done over several weeks. Depending on how she does, we should make further changes to her care. 5. Urinary tract infection with Pseudomonas with metabolic encephalopathy for which she is slowly improving. Continue antibiotics. Prognosis is guarded. MMODL / IJN: [id number] /
[2018-02-25 20:55] LABS: Glucose,Whole Blood 167 mg/dL (75-99)
--- NOTE | 2018-02-25 21:14 | PN ---
PROGRESS NOTE Patient is seen for followup for hyponatremia. Patient was initially maintained on normal saline. Her serum sodium did not improve. She also appears volume overloaded. Fluids were discontinued yesterday and patient is placed on fluid restriction. Her sodium has improved to 132 today. The patient currently denies any significant complaints. PHYSICAL EXAMINATION: Blood pressure this morning was 147/88. Another blood pressure was 178/79. Heart rate 95 per minute. Examination of the heart: S1, S2. Examination of the lungs: Bilateral breath sounds are heard. Decreased breath sounds at the bases. Abdomen is soft, morbidly obese. Examination of the lower extremities shows edema 1+ bilaterally. [employer] exam is grossly intact. LABS: Sodium 132, potassium 4.2, BUN 15, serum creatinine 1.1, calcium 9.0. ASSESSMENT: 1. Hyponatremia. The patient appears to be hypervolemic. I will give her a dose of Lasix today. Her urine osmolality was elevated. There is consideration for possible component of SIADH, however, one would expect the patient to be euvolemic. Her sodium is improved. We will continue off of IV fluids along with fluid restriction and I will give her 1 dose of IV Lasix. 2. History of sarcoidosis. Current calcium is at 9. 3. Urinary tract infection with Pseudomonas. 4. History of neurogenic bladder. 5. Chronic pain syndrome. 6. Altered mentation, currently improving. PLAN: Lasix IV x1. Continue off of IV fluids. Continue with fluid restriction. Repeat labs in a.m. MMODL / IJN: [id number] /
[2018-02-25] MEDS: GABAPENTIN 300 MG CAP PO SCH (21:17)
[2018-02-26] MEDS ORDERED: VANCOMYCIN TROUGH DUE 1 EACH MISC MISCELLANE ONE (05:00)
[2018-02-26] MEDS ORDERED: VANCOMYCIN 2,250 MG in SODIUM CHLORIDE 0.9% 500 ML IVPB SCH (06:00)
[2018-02-26] MEDS: INSULIN ASPART 100 UNIT/ML 1 ML 10 ML VIAL SQ SCH ×4 (06:52→21:24)
[2018-02-26 07:17] LABS: Glucose,Whole Blood 89 mg/dL (75-99)
[2018-02-26 07:36] LABS: Calcium 9.2 mg/dL (8.4-10.2); Potassium 3.8 mmol/L (3.5-5.1)
[2018-02-26] MEDS: IPRATROPIUM-ALBUTEROL 3 ML NEB INHALATION SCH ×3 (07:55→19:53)
[2018-02-26] MEDS: BUDESONIDE 0.5 MG/2 ML NEBU INHALATION SCH ×2 (07:55→19:52)
[2018-02-26] MEDS: HEPARIN SODIUM,PORCINE 5,000 UNIT/ML 1 ML VIAL SQ SCH ×3 (10:03→23:38)
[2018-02-26] MEDS: MAGNESIUM OXIDE 400 MG TAB PO SCH ×3 (10:04→21:24)
[2018-02-26] MEDS: metFORMIN 500 MG TAB PO SCH ×3 (10:04→15:53)
[2018-02-26] MEDS: FAMOTIDINE 20 MG TAB PO SCH ×2 (10:04→21:24)
[2018-02-26] MEDS: predniSONE 20 MG TAB PO SCH (10:05)
[2018-02-26] MEDS: POTASSIUM CHLORIDE ER 20 MEQ TAB.ER PO SCH ×2 (10:05→21:24)
[2018-02-26] MEDS: SENNOSIDES-DOCUSATE SODIUM 1 EACH TAB PO SCH (10:06)
[2018-02-26] MEDS: SPIRONOLACTONE 25 MG TAB PO SCH (10:07)
[2018-02-26] MEDS: METHADONE 5 MG TAB PO SCH (10:13)
[2018-02-26] MEDS: METHADONE 10 MG TAB PO SCH (10:14)
--- NOTE | 2018-02-26 10:33 | P.PN ---
Subjective Progress Note Date: 02/26/18 Principal diagnosis: Acute encephalopathy and urinary tract infection Patient is more awake today following commands in no acute distress eating her breakfast but slightly lethargic Objective - Vital Signs Vital signs: Vital Signs Temp 97.8 F 02/26/18 04:00 Pulse 82 02/26/18 08:14 Resp 18 02/26/18 04:00 BP 128/96 02/26/18 04:00 Pulse Ox 100 02/26/18 04:00 Intake & Output 02/25/18 02/26/18 02/26/18 18:59 06:59 18:59 Intake Total 950 Output Total 650 750 Balance 300 -750 Weight 166.5 kg 166.3 kg Intake: Intake, IV Titration 700 Amount Vancomycin 2,250 mg In 500 Sodium Chloride 0.9% 500 ml @ 167 mls/hr IVPB Q16H [facility] Rx#:[id number] cefTAZidime 2 gm In 200 Sodium Chloride 0.9% 100 ml @ 100 mls/hr IVPB Q8HR [facility] Rx#:[id number] Oral 250 Output: Urine 650 750 Other: Voiding Method Indwelling Catheter Indwelling Catheter # Bowel Movements 0 - Exam Gen.: in stated age, no acute distress, morbidly obese Heart: Normal S1-S2 Lungs: Diminished bilaterally Abdomen: Soft, no tenderness, positive bowel sounds in all 4 quadrant no guarding or rebound Skin: No new rash Psych: Alert and oriented 3 Neuro: No focal deficit Lower extremity chronic lymphedema - Labs CBC & Chem 7: 02/24/18 05:26 02/26/18 05:53 Labs: Abnormal Lab Results - Last 24 Hours (Table) 02/25/18 02/25/18 02/25/18 Range/Units 10:05 11:49 16:29 Sodium 132 L (137-145) mmol/L Creatinine 1.11 H (0.52-1.04) mg/dL POC Glucose (mg/dL) 105 H 178 H (75-99) mg/dL Vancomycin Trough ug/mL 02/25/18 02/26/18 02/26/18 Range/Units 20:51 05:53 05:53 Sodium 136 L (137-145) mmol/L Creatinine 1.30 H (0.52-1.04) mg/dL POC Glucose (mg/dL) 167 H (75-99) mg/dL Vancomycin Trough 67.5 H* ug/mL Microbiology - Last 24 Hours (Table) 02/24/18 11:33 Blood Culture Gram Stain - Preliminary Blood Blood Culture - Preliminary Coagulase Negative Staph 02/22/18 13:13 Blood Culture Gram Stain - Final Blood Blood Culture - Final Coagulase Negative Staph Diphtheroid species 02/24/18 11:33 Blood Culture - Preliminary Blood No Growth after 24 hours 02/24/18 12:08 Blood Culture - Final Blood Assessment and Plan Assessment: 1. Acute respiratory failure with hypoxia and hypercapnia 2. Acute metabolic encephalopathy seems to be resolving. 3. Acute urinary tract infection with Pseudomonas on urine culture. 4. Chronic pain syndrome. 5. Chronic lower extremity lymphedema. 6. Morbid obesity. 7. Neurogenic bladder. 8. Debility and deconditioning I have removed her right upper chest subclavian catheter and sent for culture. No complication noted and no further bleeding. We will continue supportive care. Continue with nasal cannula and consider BiPAP on as-needed basis. We' ll continue with current antibiotics regimen and follow up on final urine culture sensitivity. Avoid overmedication for pain to avoid further confusion. We'll update the family today with the current treatment plan. Patient was denied by [facility]
[2018-02-26 11:34] LABS: Glucose,Whole Blood 94 mg/dL (75-99)
--- NOTE | 2018-02-26 13:40 | PN ---
PROGRESS NOTE Patient is seen for followup for hyponatremia, which is significantly improved. However, patient has developed acute kidney injury secondary to Vancomycin toxicity. Her vancomycin level was at 67.5. The patient received 1 dose of Lasix yesterday for hyperkalemia and volume overload. Her sodium today is at 136. PHYSICAL EXAMINATION: On examination, patient denies any significant complaints. Blood pressure was 129/68, heart rate 107 per minute. She is afebrile. Examination of the heart S1, S2. Examination pf lungs, bilateral breath sounds are heard. Abdomen is soft, nontender, obese. Examination lower extremities shows edema 1+ bilaterally. LABS: Labs show sodium 136, potassium 3.8, serum creatinine 1.3. Vancomycin trough 67.5. ASSESSMENT: 1. Hypervolemic hyponatremia currently improving. Continue off of IV fluids. The patient received 1 dose of Lasix yesterday. We will maintain her on fluid restriction. Repeat labs in a.m. 2. Acute kidney injury secondary to vancomycin toxicity. Will discontinue the vancomycin. There are no nephrotoxic agents on board. If her renal function declines further, we will need to discontinue the Glucophage. The topical Voltaren gel is okay. We also need to avoid hypotension. 3. History of sarcoidosis. 4. Urine tract infection with urine culture growing Pseudomonas. 5. Coagulase negative Staph bacteremia, possibly contaminant. PLAN: Discontinue vancomycin and repeat labs in a.m. If renal function is worse, I will DC the metformin tomorrow. We can continue it for now. I will use loop diuretics as needed for hypervolemia. MMODL / IJN: [id number] /
--- NOTE | 2018-02-26 14:46 | PN ---
PROGRESS NOTE DATE OF SERVICE: 02/26/2018 She is hemodynamically stable, but has been growing coag-negative Staph from 2 of her blood cultures. Her midline venous catheter was removed. Today she does not complain of pain. Her blood pressure is 122/82, respiratory rate of 18, pulse rate of 109, temperature 97.5, O2 saturation on 2 L by nasal cannula is 99%. HEENT is unremarkable. Chest is clear. Cardiovascular system is S1, S2. Abdomen is soft. There is 1+ to 2+ pedal edema. IMPRESSION: 1. Gram-positive sepsis. 2. Acute renal failure. 3. Obesity hypoventilation syndrome. 4. Sarcoidosis with chronic respiratory failure. Continue supportive care, attempt to wean steroids slowly. Continue her on her current medications which were reviewed. Depending on how she does we should make further changes to her care. BOWEN / NIGEL: [id number] /
[2018-02-26 17:12] LABS: Glucose,Whole Blood 175 mg/dL (75-99)
--- NOTE | 2018-02-26 20:16 | P.PN ---
Subjective Progress Note Date: 02/26/18 The patient is a 47-year-old woman who was admitted to the hospital on 2017. She is a resident at [facility] the [facility] due to sarcoidosis and debility. She presented to the hospital with fever and lethargy. She is slightly more alert. The patient has quite doses, lymphedema and multiple medical comorbidities including spinal stenosis ,diabetes .neurogenic bladder, obesity hypoventilation syndrome and chronic respiratory failure. The patient is doing about the same. She is able to awake enough to answer a few questions but for the most part she is sleeping . She had an EEG which did not show any seizure activity. She also had a CAT scan of the brain which did not show any acute findings . Objective - Vital Signs Vital signs: Vital Signs Temp 98.0 F 02/26/18 16:00 Pulse 88 02/26/18 20:03 Resp 18 02/26/18 16:00 BP 122/81 02/26/18 16:00 Pulse Ox 99 02/26/18 16:00 Intake & Output 02/26/18 02/26/18 02/27/18 06:59 18:59 06:59 Intake Total 430 Output Total 750 300 Balance -750 130 Weight 166.3 kg Intake: Intake, IV Titration 250 Amount Vancomycin 2,250 mg In 50 Sodium Chloride 0.9% 500 ml @ 167 mls/hr IVPB Q16H [facility] Rx#:[id number] cefTAZidime 2 gm In 200 Sodium Chloride 0.9% 100 ml @ 100 mls/hr IVPB Q8HR [facility] Rx#:[id number] Oral 180 Output: Urine 750 300 Other: Voiding Method Indwelling Catheter Indwelling Catheter # Bowel Movements 0 - Constitutional General appearance: Present: morbidly obese - EENT Eyes: Present: PERRLA ENT: Present: hearing grossly normal - Respiratory Respiratory: bilateral: CTA - Cardiovascular Rhythm: regular - Neurologic Neurologic Comment(s): Neurologic examination: Mental status: The patient is sleeping but easily arousable and able to answer a few questions. There is no a aphasia or dysarthria. Cranial nerve examination pupils were equal and reactive there was no facial asymmetry Motor examination patient has generalized weakness. He is unable to cooperate with examination - Labs CBC & Chem 7: 02/24/18 05:26 02/26/18 05:53 Labs: Abnormal Lab Results - Last 24 Hours (Table) 02/25/18 02/26/18 02/26/18 Range/Units 20:51 05:53 05:53 Sodium 136 L (137-145) mmol/L Creatinine 1.30 H (0.52-1.04) mg/dL POC Glucose (mg/dL) 167 H (75-99) mg/dL Vancomycin Trough 67.5 H* ug/mL 02/26/18 Range/Units 16:45 Sodium (137-145) mmol/L Creatinine (0.52-1.04) mg/dL POC Glucose (mg/dL) 175 H (75-99) mg/dL Vancomycin Trough ug/mL Microbiology - Last 24 Hours (Table) 02/26/18 09:33 Catheter Tip Culture - Preliminary Picc Line 02/24/18 11:33 Blood Culture - Preliminary Blood No Growth after 48 hours 02/24/18 11:33 Blood Culture Gram Stain - Preliminary Blood Blood Culture - Preliminary Coagulase Negative Staph 02/22/18 13:13 Blood Culture Gram Stain - Final Blood Blood Culture - Final Coagulase Negative Staph Diphtheroid species Assessment and Plan (1) Metabolic encephalopathy Current Visit: Yes Status: Acute SNOMED Code(s): 41301369 (2) Dehydration Current Visit: Yes Status: Acute Code(s): E86.0 - DEHYDRATION SNOMED Code( s): 49281246 (3) UTI (urinary tract infection) Current Visit: Yes Status: Acute SNOMED Code(s): 61813232 (4) Failure of outpatient treatment Current Visit: Yes Status: Acute SNOMED Code(s): 083474693 (5) Hyponatremia Current Visit: Yes Status: Acute SNOMED Code(s): 58932852 Plan: The patient is a 47-year-old woman with history of multiple medical comorbidities who [facility] hospital with fever and lethargy. She continues to have lethargy but is slightly more alert today. The patient has metabolic encephalopathy. She is multiple comorbidities including sarcoidosis , obesity hypoventilation syndrome, respiratory failure and has history of steroid myopathy and drop head syndrome as well as respiratory alkalosis. Patient is being treated for sepsis and UTI. The patient had a CT of scan of the head which showed no acute intracranial abnormality. She had an EEG which showed diffuse slowing without any epileptiform discharges.
[2018-02-26 21:19] LABS: Glucose,Whole Blood 211 mg/dL (75-99)
[2018-02-26] MEDS: GABAPENTIN 300 MG CAP PO SCH (21:24)
[2018-02-27] MEDS: INSULIN ASPART 100 UNIT/ML 1 ML 10 ML VIAL SQ SCH ×4 (06:20→22:10)
[2018-02-27 06:40] LABS: Glucose,Whole Blood 115 mg/dL (75-99)
[2018-02-27 06:40] LABS: Anisocytosis Slight; HCT 36.6 % (34.0-46.0); HGB 11.4 gm/dL (11.4-16.0); MCH 28.3 pg (25.0-35.0); MCV 91.2 fL (80.0-100.0); Mean Platelet Volume 6.8; Platelet Count 306 k/uL (150-450); RBC 4.01 m/uL (3.80-5.40); RDW 16.2 % (11.5-15.5); WBC 13.1 k/uL (3.8-10.6)
[2018-02-27 06:54] LABS: Albumin 3.3 g/dL (3.5-5.0); Calcium 9.7 mg/dL (8.4-10.2); Potassium 4.9 mmol/L (3.5-5.1); Total Bilirubin 0.5 mg/dL (0.2-1.3); Total Protein 5.9 g/dL (6.3-8.2)
[2018-02-27] MEDS: MAGNESIUM OXIDE 400 MG TAB PO SCH ×2 (07:12→22:10)
[2018-02-27] MEDS: POTASSIUM CHLORIDE ER 20 MEQ TAB.ER PO SCH ×2 (07:14→22:09)
[2018-02-27] MEDS: IPRATROPIUM-ALBUTEROL 3 ML NEB INHALATION SCH ×3 (07:57→21:02)
[2018-02-27] MEDS: BUDESONIDE 0.5 MG/2 ML NEBU INHALATION SCH ×2 (07:57→21:02)
[2018-02-27] MEDS: FAMOTIDINE 20 MG TAB PO SCH (08:43)
[2018-02-27] MEDS: predniSONE 20 MG TAB PO SCH (08:43)
[2018-02-27] MEDS: SENNOSIDES-DOCUSATE SODIUM 1 EACH TAB PO SCH (08:44)
[2018-02-27] MEDS: metFORMIN 500 MG TAB PO SCH ×2 (08:44→17:34)
[2018-02-27] MEDS: SPIRONOLACTONE 25 MG TAB PO SCH (08:44)
[2018-02-27] MEDS: METHADONE 10 MG TAB PO SCH (08:44)
[2018-02-27] MEDS: HEPARIN SODIUM,PORCINE 5,000 UNIT/ML 1 ML VIAL SQ SCH ×3 (08:45→22:09)
[2018-02-27] MEDS: METHADONE 5 MG TAB PO SCH (08:45)
--- NOTE | 2018-02-27 09:58 | P.PN ---
<Emily Cooper E - Last Filed: 02/27/18 09:54> Subjective Progress Note Date: 02/27/18 History of present illness: This is a 47-year-old female patient well-known to our services being seen examined and evaluated today on rounds. She does have a long-standing history of COPD, sarcoidosis on many other comorbidities. The patient is on long-term high-dose steroids, she has trialed to wean down in the past however each time she goes into respiratory distress and she continues to refuse to wean any further. The importance of finding a good balance between her prednisone dosing and wound healing has been discussed multiple times with the patient at length. She also does have a long-standing history of right lower extremity cellulitis and nonhealing wound. She does have a PICC line inserted and does follow with Dr. Rivera for infectious disease. Patient states she also has multiple recurrent UTIs and urinary retention. The patient was brought into the emergency room via EMS from her F with lethargy and increased temperature. The patient came in with a indwelling Lopez catheter and was being treated for a UTI at the [facility]. She currently is on 3 L of supplemental oxygen which is what she wears at all times as her baseline. She does utilize BiPAP at night and as needed. She states she has had some fevers over the past day and she has been tired. She does complain of a cough that is nonproductive. She is a nonsmoker. She has been using DuoNeb and budesonide at the [facility]. She also was noted to have a fever of 100.8 in the ER. Her lactic acid was 2.1. She did have hyponatremia with a sodium of 126, hypokalemia of 3.2 on admission CO2 of 30 to, BUN 19, creatinine 0.58. Her troponins were elevated and cardiology was put on consult. She did receive 2 L of IV fluid bolus in the ER. She was also noted to have a UTI and admission. Today her sodium has improved slightly to 128, her potassium has dropped down to 2.5. Her troponins remained elevated. She has no white count, she does have a low- grade temperature of 99.2 this morning. She is tachycardic at 105, she was slightly tachypneic overnight. Interval history: 02/24/2018patient is being seen examined and evaluated today on rounds. She continues to be somewhat lethargic but easily arousable, generally more awake today than yesterday. She has been seen by neurology and they recommended a brain CT and EEG. The brain CT was reviewed and shows no abnormalities. She is also being seen by nephrology her sodium continues to be 128. Infectious disease is on the case and has adjusted her antibiotics to Zosyn and Fortaz at this time. Urine culture showing gram-negative bacilli. Her Lopez catheter was changed. Patient's family is requesting she be transferred to [facility] for further care. She did utilize the BiPAP overnight. She continues on 3 L of supplemental oxygen via nasal cannula. She has been afebrile overnight, hemodynamically stable. No further complaints. 02/25/18- 02/26/18- please see Dr KASIE Earl notes 02/27/2018patient is being seen examined and evaluated today on rounds. She is resting up in bed on 2-3 L of supplemental oxygen. She did utilizes BiPAP overnight. There is no shortness breath with exertion and activity however is less severe than on admission. Her family is still requesting a transferred to [facility]. She did have an EEG which did show some swelling however no epileptic form discharges. She is afebrile no further complaints all labs and reports have been reviewed. Objective - Vital Signs Vital signs: Vital Signs Temp 98 F 02/27/18 08:15 Pulse 96 02/27/18 08:21 Resp 17 02/27/18 08:15 BP 121/81 02/27/18 08:15 Pulse Ox 97 02/27/18 08:15 Intake & Output 02/26/18 02/27/18 02/27/18 18:59 06:59 18:59 Intake Total 430 100 Output Total 300 320 Balance 130 -220 Weight 124.5 kg Intake: IV 100 cefTAZidime 2 gm In 100 Sodium Chloride 0.9% 100 ml @ 100 mls/hr IVPB Q8HR LESLIE Rx#:[id number] Intake, IV Titration 250 Amount Vancomycin 2,250 mg In 50 Sodium Chloride 0.9% 500 ml @ 167 mls/hr IVPB Q16H L[facility]LIE Rx#:[id number] cefTAZidime 2 gm In 200 Sodium Chloride 0.9% 100 ml @ 100 mls/hr IVPB Q8HR LESLIE Rx#:[id number] Oral 180 Output: Urine 300 320 Other: Voiding Method Indwelling Catheter Indwelling Catheter - Exam GENERAL EXAM: Alert, tired, comfortable in no apparent distress. Morbidly obese HEAD: Normocephalic. EYES: Normal reaction of pupils, equal size. NOSE: Clear with pink turbinates. THROAT: No erythema or exudates. NECK: No masses, no JVD. CHEST: No chest wall deformity. Right-sided Infante port site LUNGS: Diminished throughout with poor air entry with no crackles, wheeze, rhonchi or dullness. CVS: S1 and S2 normal with no audible mumurs, regular rhythm. ABDOMEN: No hepatosplenomegaly, normal bowel sounds, no guarding or rigidity. EXTREMITIES: +2-3 edema noted, pedal pulses palpable. Cellulitis of the right lower extremity CENTRAL NERVOUS SYSTEM: No focal deficits, tone is normal in all 4 extremities. - Labs CBC & Chem 7: 02/27/18 05:44 02/27/18 05:44 Labs: Abnormal Lab Results - Last 24 Hours (Table) 02/26/18 02/26/18 02/27/18 Range/Units 16:45 21:12 05:44 WBC 13.1 H (3.8-10.6) k/uL RDW 16.2 H (11.5-15.5) % BUN (7-17) mg/dL Creatinine (0.52-1.04) mg/dL Glucose (74-99) mg/dL POC Glucose (mg/dL) 175 H 211 H (75-99) mg/dL Magnesium (1.6-2.3) mg/dL ALT (9-52) U/L Total Protein (6.3-8.2) g/dL Albumin (3.5-5.0) g/dL 02/27/18 02/27/18 Range/Units 05:44 06:19 WBC (3.8-10.6) k/uL RDW (11.5-15.5) % BUN 18 H (7-17) mg/dL Creatinine 1.48 H (0.52-1.04) mg/dL Glucose 116 H (74-99) mg/dL POC Glucose (mg/dL) 115 H (75-99) mg/dL Magnesium 3.0 H (1.6-2.3) mg/dL ALT 60 H (9-52) U/L Total Protein 5.9 L (6.3-8.2) g/dL Albumin 3.3 L (3.5-5.0) g/dL Microbiology - Last 24 Hours (Table) 02/24/18 11:33 Blood Culture Gram Stain - Final Blood Blood Culture - Final Coagulase Negative Staph 02/26/18 09:33 Catheter Tip Culture - Preliminary Picc Line 02/24/18 11:33 Blood Culture - Preliminary Blood No Growth after 48 hours 02/22/18 13:13 Blood Culture Gram Stain - Final Blood Blood Culture - Final Coagulase Negative Staph Diphtheroid species Assessment and Plan Assessment: Assessment Metabolic encephalopathy Acute on chronic hypoxic respiratory failure requiring supplemental oxygen Acute hypercapnic respiratory failure Respiratory alkalosis related to sepsis 3/4 SIRS Sepsis with UTI Present on admission UTI Dehydration Basilar atelectasis doubt pneumonia at this time Sarcoidosis Morbid obesity Chronic pain syndrome AMBER with obesity hypoventilation syndrome Elevated troponins Hyponatremia Hypokalemia Neurogenic bladder Plan Family is requesting transfer to the [facility], primary care team and social work is looking into this, far she has been denied Medications have been reviewed and will be continued as ordered. Infectious disease on consult Neurology on consult and nephrology on consult Cardiology on consult Chronic high-dose steroid dependent related to sarcoidosis Nebulizer treatments with DuoNeb and budesonide Continue with pulmonary hygiene, coughing and deep breathing exercises, and supportive care. Supplemental oxygen to maintain oxygen saturations of 92% or better. BiPAP at night and when necessary Continue nebulizer treatments. Initiate and encourage incentive spirometer Continue to monitor and replace electrolytes per protocol Weight loss recommended Increase activity as tolerated PT and OT GI and DVT prophylaxis. We will continue to monitor labs/results and adjust treatment as necessary. I performed an examination of the patient and discussed their management with the nurse practitioner. I have reviewed the nurse practitioner's note and agree with the documented findings and plan of care. <Elda Palencia - Last Filed: 02/27/18 14:43> Objective - Vital Signs Vital signs: Vital Signs Temp 98 F 02/27/18 08:15 Pulse 90 02/27/18 12:32 Resp 18 02/27/18 12:00 BP 152/80 02/27/18 12:00 Pulse Ox 99 02/27/18 12:00 Intake & Output 02/26/18 02/27/18 02/27/18 18:59 06:59 18:59 Intake Total 430 100 Output Total 300 320 Balance 130 -220 Weight 124.5 kg Intake: IV 100 cefTAZidime 2 gm In 100 Sodium Chloride 0.9% 100 ml @ 100 mls/hr IVPB Q8HR [facility] Rx#:[id number] Intake, IV Titration 250 Amount Vancomycin 2,250 mg In 50 Sodium Chloride 0.9% 500 ml @ 167 mls/hr IVPB Q16H [facility] Rx#:[id number] cefTAZidime 2 gm In 200 Sodium Chloride 0.9% 100 ml @ 100 mls/hr IVPB Q8HR L[facility] Rx#:[id number] Oral 180 Output: Urine 300 320 Other: Voiding Method Indwelling Catheter Indwelling Catheter Indwelling Catheter - Labs CBC & Chem 7: 02/27/18 05:44 02/27/18 05:44 Labs: Abnormal Lab Results - Last 24 Hours (Table) 02/26/18 02/26/18 02/27/18 Range/Units 16:45 21:12 05:44 WBC 13.1 H (3.8-10.6) k/uL RDW 16.2 H (11.5-15.5) % ABG pO2 (83-108) mmHg ABG HCO3 (21-25) mmol/L ABG Total CO2 (19-24) mmol/L BUN (7-17) mg/dL Creatinine (0.52-1.04) mg/dL Glucose (74-99) mg/dL POC Glucose (mg/dL) 175 H 211 H (75-99) mg/dL Magnesium (1.6-2.3) mg/dL ALT (9-52) U/L Total Protein (6.3-8.2) g/dL Albumin (3.5-5.0) g/dL 02/27/18 02/27/18 02/27/18 Range/Units 05:44 06:19 11:10 WBC (3.8-10.6) k/uL RDW (11.5-15.5) % ABG pO2 (83-108) mmHg ABG HCO3 (21-25) mmol/L ABG Total CO2 (19-24) mmol/L BUN 18 H (7-17) mg/dL Creatinine 1.48 H (0.52-1.04) mg/dL Glucose 116 H (74-99) mg/dL POC Glucose (mg/dL) 115 H 184 H (75-99) mg/dL Magnesium 3.0 H (1.6-2.3) mg/dL ALT 60 H (9-52) U/L Total Protein 5.9 L (6.3-8.2) g/dL Albumin 3.3 L (3.5-5.0) g/dL 02/27/18 Range/Units 11:20 WBC (3.8-10.6) k/uL RDW (11.5-15.5) % ABG pO2 72 L (83-108) mmHg ABG HCO3 26 H (21-25) mmol/L ABG Total CO2 27 H (19-24) mmol/L BUN (7-17) mg/dL Creatinine (0.52-1.04) mg/dL Glucose (74-99) mg/dL POC Glucose (mg/dL) (75-99) mg/dL Magnesium (1.6-2.3) mg/dL ALT (9-52) U/L Total Protein (6.3-8.2) g/dL Albumin (3.5-5.0) g/dL Microbiology - Last 24 Hours (Table) 02/24/18 11:33 Blood Culture - Preliminary Blood No Growth after 72 hours 02/24/18 11:33 Blood Culture Gram Stain - Final Blood Blood Culture - Final Coagulase Negative Staph 02/26/18 09:33 Catheter Tip Culture - Preliminary Picc Line Assessment and Plan Assessment: Patient seen and examined. Continue BiPAP at night and when necessary. Chronic high-dose prednisone, taper as able. Infectious disease recommendations for antibiotics. PT and OT. Doubt neurosarcoid. Pseudomonas urinary tract infection. ~Elda Palencia DO
[2018-02-27 11:16] LABS: Glucose,Whole Blood 184 mg/dL (75-99)
[2018-02-27 11:22] LABS: ABG Base Excess 0.7 mmol/L; ABG HCO3 26 mmol/L (21-25); ABG Oxygen Saturation 95.7 % (94-97); ABG PCO2 44 mmHg (35-45); ABG PH 7.38 (7.35-7.45); ABG PO2 72 mmHg (83-108); ABG TCO2 27 mmol/L (19-24)
[2018-02-27] MEDS: FUROSEMIDE 40 MG TAB PO SCH (11:56)
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
--- NOTE | 2018-02-27 15:02 | PN ---
PROGRESS NOTE Patient is seen for followup for acute kidney injury and hyponatremia. Her serum sodium has improved. Patient has developed acute kidney injury from vancomycin toxicity. Vancomycin is now discontinued. On examination patient is currently laying in bed. She is comfortable. She denies any significant complaints. Patient is awaiting a BiPAP. PHYSICAL EXAMINATION: Blood pressure 121/81, heart rate 96 per minute. She is afebrile. Examination of the heart, S1, S2. Examination of the lungs, bilateral breath sounds are heard. Abdomen is soft, morbidly obese. Examination of the lower extremities shows edema 1+ bilaterally. LABS: Show sodium of 138, potassium 4.9, BUN 18, serum creatinine 1.48. ASSESSMENT: 1. Acute kidney injury secondary to vancomycin toxicity, currently nonoliguric. Patient has an indwelling Lopez catheter. Urine output about 1600 mL over 24 hours. 2. Hypervolemic hyponatremia currently improved. 3. Pseudomonas urinary tract infection. 4. Coagulase negative Staph bacteremia with repeat cultures, currently negative. 5. History of sarcoidosis. PLAN: Continue off of vancomycin. Repeat labs in a.m. Continue to avoid any other nephrotoxic agents. There are plans for possible transfer to [facility]. MMODL / IJN: [id number] /
[2018-02-27 16:25] LABS: Glucose,Whole Blood 190 mg/dL (75-99)
[2018-02-27 20:58] LABS: Glucose,Whole Blood 129 mg/dL (75-99)
--- NOTE | 2018-02-27 21:26 | PN ---
PROGRESS NOTE DATE OF SERVICE: 02/27/2018. REASON FOR FOLLOWUP: 1. Pseudomonas catheter infection. 2. Patient with possible right chest wall catheter infection. INTERVAL HISTORY: The patient is currently afebrile. She has been breathing comfortably. Denies significant chest pain. No cough. No nausea, vomiting. No abdominal pain. No diarrhea. EXAMINATION: Blood pressure 135/87 with a pulse of 102, temperature 97.9. She is 95% on 2 L nasal cannula. General description is a middle-aged female lying in bed in no distress. Respiratory system: Unlabored breathing. Clear to auscultation anteriorly. Heart S1, S2 regular rate and rhythm. Abdomen soft, no tenderness. Extremities: No edema of the feet. LABS: Hemoglobin 11.1, white count 13.1, white count significantly with catheter- tip culture currently pending. DIAGNOSTIC IMPRESSION AND PLAN: 1. Patient with Pseudomonas aeruginosa, catheter associated urinary tract infection. The patient is currently on Fortaz. 2. The patient with positive blood cultures, more likely contamination. The subclavian catheter has been discontinued. Vancomycin has been discontinued because of elevated trough. Kidney function needs to be monitored closely. Plan of care was discussed with the admitting physician. Continue supportive care. MMODL / IJN: [id number] /
[2018-02-27] MEDS: GABAPENTIN 300 MG CAP PO SCH (22:09)
[2018-02-28 05:48] LABS: Hemoglobin A1C 8.2 % (4.0-6.0)
[2018-02-28 05:57] LABS: Glucose,Whole Blood 72 mg/dL (75-99)
[2018-02-28] MEDS: INSULIN ASPART 100 UNIT/ML 1 ML 10 ML VIAL SQ SCH ×4 (06:21→21:51)
[2018-02-28 07:11] LABS: Anisocytosis Slight; HCT 36.3 % (34.0-46.0); HGB 11.1 gm/dL (11.4-16.0); Hypochromasia Slight; MCH 28.6 pg (25.0-35.0); MCHC 30.7 g/dL (31.0-37.0); MCV 93.4 fL (80.0-100.0); Mean Platelet Volume 6.6; Platelet Count 278 k/uL (150-450); RBC 3.89 m/uL (3.80-5.40); RDW 16.6 % (11.5-15.5); WBC 14.6 k/uL (3.8-10.6)
[2018-02-28 07:25] LABS: Albumin 3.3 g/dL (3.5-5.0); Calcium 9.9 mg/dL (8.4-10.2); Potassium 4.9 mmol/L (3.5-5.1); Total Bilirubin 0.4 mg/dL (0.2-1.3); Total Protein 5.8 g/dL (6.3-8.2)
[2018-02-28] MEDS: BUDESONIDE 0.5 MG/2 ML NEBU INHALATION SCH ×2 (08:20→20:45)
[2018-02-28] MEDS: IPRATROPIUM-ALBUTEROL 3 ML NEB INHALATION SCH ×3 (08:20→20:45)
[2018-02-28] MEDS: SENNOSIDES-DOCUSATE SODIUM 1 EACH TAB PO SCH (09:14)
[2018-02-28] MEDS: HEPARIN SODIUM,PORCINE 5,000 UNIT/ML 1 ML VIAL SQ SCH ×3 (09:14→21:43)
[2018-02-28] MEDS: FUROSEMIDE 40 MG TAB PO SCH (09:14)
[2018-02-28] MEDS: FAMOTIDINE 20 MG TAB PO SCH (09:14)
[2018-02-28] MEDS: predniSONE 20 MG TAB PO SCH (09:14)
[2018-02-28] MEDS: MAGNESIUM OXIDE 400 MG TAB PO SCH ×2 (09:14→21:43)
[2018-02-28] MEDS: SPIRONOLACTONE 25 MG TAB PO SCH (09:15)
[2018-02-28] MEDS: METHADONE 10 MG TAB PO SCH (09:15)
[2018-02-28] MEDS: metFORMIN 500 MG TAB PO SCH (09:15)
[2018-02-28] MEDS: POTASSIUM CHLORIDE ER 20 MEQ TAB.ER PO SCH ×2 (09:15→21:51)
--- NOTE | 2018-02-28 09:39 | P.PN ---
<Emily Cooper E - Last Filed: 02/28/18 09:35> Subjective Progress Note Date: 02/28/18 History of present illness: This is a 47-year-old female patient well-known to our services being seen examined and evaluated today on rounds. She does have a long-standing history of COPD, sarcoidosis on many other comorbidities. The patient is on long-term high-dose steroids, she has trialed to wean down in the past however each time she goes into respiratory distress and she continues to refuse to wean any further. The importance of finding a good balance between her prednisone dosing and wound healing has been discussed multiple times with the patient at length. She also does have a long-standing history of right lower extremity cellulitis and nonhealing wound. She does have a PICC line inserted and does follow with Dr. Rivera for infectious disease. Patient states she also has multiple recurrent UTIs and urinary retention. The patient was brought into the emergency room via EMS from her F with lethargy and increased temperature. The patient came in with a indwelling Lopez catheter and was being treated for a UTI at the [facility]. She currently is on 3 L of supplemental oxygen which is what she wears at all times as her baseline. She does utilize BiPAP at night and as needed. She states she has had some fevers over the past day and she has been tired. She does complain of a cough that is nonproductive. She is a nonsmoker. She has been using DuoNeb and budesonide at the [facility]. She also was noted to have a fever of 100.8 in the ER. Her lactic acid was 2.1. She did have hyponatremia with a sodium of 126, hypokalemia of 3.2 on admission CO2 of 30 to, BUN 19, creatinine 0.58. Her troponins were elevated and cardiology was put on consult. She did receive 2 L of IV fluid bolus in the ER. She was also noted to have a UTI and admission. Today her sodium has improved slightly to 128, her potassium has dropped down to 2.5. Her troponins remained elevated. She has no white count, she does have a low- grade temperature of 99.2 this morning. She is tachycardic at 105, she was slightly tachypneic overnight. Interval history: 02/24/2018patient is being seen examined and evaluated today on rounds. She continues to be somewhat lethargic but easily arousable, generally more awake today than yesterday. She has been seen by neurology and they recommended a brain CT and EEG. The brain CT was reviewed and shows no abnormalities. She is also being seen by nephrology her sodium continues to be 128. Infectious disease is on the case and has adjusted her antibiotics to Zosyn and Fortaz at this time. Urine culture showing gram-negative bacilli. Her Lopez catheter was changed. Patient's family is requesting she be transferred to [facility] for further care. She did utilize the BiPAP overnight. She continues on 3 L of supplemental oxygen via nasal cannula. She has been afebrile overnight, hemodynamically stable. No further complaints. 02/25/18- 02/26/18- please see Dr KASIE Earl notes 02/27/2018patient is being seen examined and evaluated today on rounds. She is resting up in bed on 2-3 L of supplemental oxygen. She did utilizes BiPAP overnight. There is no shortness breath with exertion and activity however is less severe than on admission. Her family is still requesting a transferred to [facility]. She did have an EEG which did show some slowing however no epileptic form discharges. She is afebrile no further complaints all labs and reports have been reviewed. 02/28/18- patient is being seen examined and evaluated today on rounds. Patient is resting up in bed on 2 L of supplemental oxygen via nasal cannula. She did consume some of her breakfast this morning. Breathing has been relatively stable. The patient is using her BiPAP each night. She is afebrile no further complaints. All labs and reports have been reviewed. Continues to be hemodynamically stable Objective - Vital Signs Vital signs: Vital Signs Temp 97.3 F L 02/28/18 04:00 Pulse 96 02/28/18 08:36 Resp 14 02/28/18 04:00 BP 122/87 02/28/18 04:00 Pulse Ox 100 02/28/18 04:00 Intake & Output 02/27/18 02/28/18 02/28/18 18:59 06:59 18:59 Intake Total 100 200 Output Total 700 Balance -600 200 Weight 129 kg Intake: IV 100 cefTAZidime 2 gm In 100 Sodium Chloride 0.9% 100 ml @ 100 mls/hr IVPB Q8HR [facility] Rx#:[id number] Intake, IV Titration 100 Amount cefTAZidime 2 gm In 100 Sodium Chloride 0.9% 100 ml @ 100 mls/hr IVPB Q12H [facility] Rx#:[id number] Oral 100 Output: Urine 700 Other: Voiding Method Indwelling Catheter Indwelling Catheter # Bowel Movements 1 - Exam GENERAL EXAM: Alert, tired, comfortable in no apparent distress. Morbidly obese HEAD: Normocephalic. EYES: Normal reaction of pupils, equal size. NOSE: Clear with pink turbinates. THROAT: No erythema or exudates. NECK: No masses, no JVD. CHEST: No chest wall deformity. Right-sided [place] port site LUNGS: Diminished throughout with poor air entry with no crackles, wheeze, rhonchi or dullness. CVS: S1 and S2 normal with no audible mumurs, regular rhythm. ABDOMEN: No hepatosplenomegaly, normal bowel sounds, no guarding or rigidity. EXTREMITIES: +2-3 edema noted, pedal pulses palpable. Cellulitis of the right lower extremity CENTRAL NERVOUS SYSTEM: No focal deficits, tone is normal in all 4 extremities. - Labs CBC & Chem 7: 02/28/18 06:14 02/28/18 06:14 Labs: Abnormal Lab Results - Last 24 Hours (Table) 02/27/18 02/27/18 02/27/18 Range/Units 05:44 11:10 11:20 WBC (3.8-10.6) k/uL Hgb (11.4-16.0) gm/dL MCHC (31.0-37.0) g/dL RDW (11.5-15.5) % ABG pO2 72 L (83-108) mmHg ABG HCO3 26 H (21-25) mmol/L ABG Total CO2 27 H (19-24) mmol/L BUN (7-17) mg/dL Creatinine (0.52-1.04) mg/dL Glucose (74-99) mg/dL POC Glucose (mg/dL) 184 H (75-99) mg/dL Hemoglobin A1c 8.2 H (4.0-6.0) % ALT (9-52) U/L Total Protein (6.3-8.2) g/dL Albumin (3.5-5.0) g/dL 02/27/18 02/27/18 02/28/18 Range/Units 16:08 20:57 05:56 WBC (3.8-10.6) k/uL Hgb (11.4-16.0) gm/dL MCHC (31.0-37.0) g/dL RDW (11.5-15.5) % ABG pO2 (83-108) mmHg ABG HCO3 (21-25) mmol/L ABG Total CO2 (19-24) mmol/L BUN (7-17) mg/dL Creatinine (0.52-1.04) mg/dL Glucose (74-99) mg/dL POC Glucose (mg/dL) 190 H 129 H 72 L (75-99) mg/dL Hemoglobin A1c (4.0-6.0) % ALT (9-52) U/L Total Protein (6.3-8.2) g/dL Albumin (3.5-5.0) g/dL 02/28/18 02/28/18 Range/Units 06:14 06:14 WBC 14.6 H (3.8-10.6) k/uL Hgb 11.1 L (11.4-16.0) gm/dL MCHC 30.7 L (31.0-37.0) g/dL RDW 16.6 H (11.5-15.5) % ABG pO2 (83-108) mmHg ABG HCO3 (21-25) mmol/L ABG Total CO2 (19-24) mmol/L BUN 24 H (7-17) mg/dL Creatinine 1.74 H (0.52-1.04) mg/dL Glucose 69 L (74-99) mg/dL POC Glucose (mg/dL) (75-99) mg/dL Hemoglobin A1c (4.0-6.0) % ALT 59 H (9-52) U/L Total Protein 5.8 L (6.3-8.2) g/dL Albumin 3.3 L (3.5-5.0) g/dL Microbiology - Last 24 Hours (Table) 02/26/18 09:33 Catheter Tip Culture - Final Picc Line 02/24/18 11:33 Blood Culture - Preliminary Blood No Growth after 72 hours 02/24/18 11:33 Blood Culture Gram Stain - Final Blood Blood Culture - Final Coagulase Negative Staph Assessment and Plan Assessment: Assessment Metabolic encephalopathy Acute on chronic hypoxic respiratory failure requiring supplemental oxygen Acute hypercapnic respiratory failure Respiratory alkalosis related to sepsis 3/4 SIRS Sepsis with UTI Present on admission UTI Dehydration Basilar atelectasis doubt pneumonia at this time Sarcoidosis Morbid obesity Chronic pain syndrome AMBER with obesity hypoventilation syndrome Elevated troponins Hyponatremia Hypokalemia Neurogenic bladder Plan Family is requesting transfer to the [facility], primary care team and social work is looking into this, so far she has been denied Medications have been reviewed and will be continued as ordered. Infectious disease on consult Neurology on consult and nephrology on consult Cardiology on consult Chronic high-dose steroid dependent related to sarcoidosis Nebulizer treatments with DuoNeb and budesonide Continue with pulmonary hygiene, coughing and deep breathing exercises, and supportive care. Supplemental oxygen to maintain oxygen saturations of 92% or better. BiPAP at night and when necessary Continue nebulizer treatments. Initiate and encourage incentive spirometer Continue to monitor and replace electrolytes per protocol Weight loss recommended Increase activity as tolerated PT and OT GI and DVT prophylaxis. We will continue to monitor labs/results and adjust treatment as necessary. I performed an examination of the patient and discussed their management with the nurse practitioner. I have reviewed the nurse practitioner's note and agree with the documented findings and plan of care. <Elda Palencia A - Last Filed: 02/28/18 14:12> Objective - Vital Signs Vital signs: Vital Signs Temp 97.3 F L 02/28/18 12:00 Pulse 108 H 02/28/18 13:16 Resp 16 02/28/18 12:00 BP 153/107 02/28/18 12:00 Pulse Ox 99 02/28/18 12:00 Intake & Output 02/27/18 02/28/18 02/28/18 18:59 06:59 18:59 Intake Total 100 200 100 Output Total 700 700 Balance -600 200 -600 Weight 129 kg 129 kg Intake: IV 100 100 cefTAZidime 2 gm In 100 100 Sodium Chloride 0.9% 100 ml @ 100 mls/hr IVPB Q8HR [facility] Rx#:[id number] Intake, IV Titration 100 Amount cefTAZidime 2 gm In 100 Sodium Chloride 0.9% 100 ml @ 100 mls/hr IVPB Q12H [facility] Rx#:[id number] Oral 100 Output: Urine 700 700 Other: Voiding Method Indwelling Catheter Indwelling Catheter Indwelling Catheter # Bowel Movements 1 - Labs CBC & Chem 7: 02/28/18 06:14 02/28/18 06:14 Labs: Abnormal Lab Results - Last 24 Hours (Table) 02/27/18 02/27/18 02/27/18 Range/Units 05:44 16:08 20:57 WBC (3.8-10.6) k/uL Hgb (11.4-16.0) gm/dL MCHC (31.0-37.0) g/dL RDW (11.5-15.5) % VBG pH (7.31-7.41) VBG pCO2 (37-51) mmHg VBG HCO3 (24-28) mmol/L BUN (7-17) mg/dL Creatinine (0.52-1.04) mg/dL Glucose (74-99) mg/dL POC Glucose (mg/dL) 190 H 129 H (75-99) mg/dL Hemoglobin A1c 8.2 H (4.0-6.0) % ALT (9-52) U/L Total Protein (6.3-8.2) g/dL Albumin (3.5-5.0) g/dL 02/28/18 02/28/18 02/28/18 Range/Units 05:56 06:14 06:14 WBC 14.6 H (3.8-10.6) k/uL Hgb 11.1 L (11.4-16.0) gm/dL MCHC 30.7 L (31.0-37.0) g/dL RDW 16.6 H (11.5-15.5) % VBG pH (7.31-7.41) VBG pCO2 (37-51) mmHg VBG HCO3 (24-28) mmol/L BUN 24 H (7-17) mg/dL Creatinine 1.74 H (0.52-1.04) mg/dL Glucose 69 L (74-99) mg/dL POC Glucose (mg/dL) 72 L (75-99) mg/dL Hemoglobin A1c (4.0-6.0) % ALT 59 H (9-52) U/L Total Protein 5.8 L (6.3-8.2) g/dL Albumin 3.3 L (3.5-5.0) g/dL 02/28/18 Range/Units 10:20 WBC (3.8-10.6) k/uL Hgb (11.4-16.0) gm/dL MCHC (31.0-37.0) g/dL RDW (11.5-15.5) % VBG pH 7.53 H (7.31-7.41) VBG pCO2 25 L (37-51) mmHg VBG HCO3 21 L (24-28) mmol/L BUN (7-17) mg/dL Creatinine (0.52-1.04) mg/dL Glucose (74-99) mg/dL POC Glucose (mg/dL) (75-99) mg/dL Hemoglobin A1c (4.0-6.0) % ALT (9-52) U/L Total Protein (6.3-8.2) g/dL Albumin (3.5-5.0) g/dL Microbiology - Last 24 Hours (Table) 02/24/18 11:33 Blood Culture - Preliminary Blood No Growth after 96 hours 02/26/18 09:33 Catheter Tip Culture - Final Picc Line Assessment and Plan Assessment: Prednisone tapered to 60 mg daily. Continue to taper weekly. PT and OT. Bipap nightly and PRN. ABX per ID. Weight loss encouraged. IS and pulmonary hygiene. ~Elda Palencia DO
[2018-02-28] MEDS ORDERED: DEXTROSE 5%-0.45% NACL 1,000 ML IV SCH (10:00)
[2018-02-28 10:36] LABS: VBG PH 7.53 (7.31-7.41)
[2018-02-28 11:19] LABS: Glucose,Whole Blood 91 mg/dL (75-99)
[2018-02-28 16:11] LABS: Glucose,Whole Blood 249 mg/dL (75-99)
--- NOTE | 2018-02-28 20:39 | PN ---
PROGRESS NOTE The patient is seen for followup for acute kidney injury secondary to vancomycin toxicity. The patient was also hyponatremic initially. Her sodium has now improved. The vancomycin is discontinued. The patient, however, has been started on IV fluids today. Urine output for 24 hours was at 1200. EXAMINATION: Blood pressure was 153/107, heart rate 107 per minute. Patient is afebrile. HEART: S1, S2. LUNGS: Bilateral breath sounds are heard. Abdomen is soft, nontender. Lower extremities show chronic skin changes. Trace edema bilaterally. REVENUE DIRECTOR is grossly intact. LABS: Sodium 139, potassium 4.9, chloride 106, BUN 24, serum creatinine 1.74. Albumin 3.3. Hemoglobin 11.1 g/dL. ASSESSMENT: 1. Acute kidney injury secondary to vancomycin toxicity, currently with no nephrotoxic medications on board. The patient has been started on IV fluids. I will change it to normal saline, given her history of hyponatremia, and we will add on the fluids at 50 mL an hour. 2. Hyponatremia, hypervolemic, currently improved. 3. Urinary tract infection with Pseudomonas, maintained on ceftazidime. 4. Type 2 diabetes. 5. Sarcoidosis, maintained on steroids. Calcium is not elevated. 6. Coagulase-negative Staphylococcus bacteremia with repeat cultures negative. PLAN: Change IV fluids to half-normal saline, decrease rate to about 50 mL an hour. The serum creatinine will tend to increase over the next few days, given the significantly elevated vancomycin level. MMODL / IJN: [id number] /
[2018-02-28 20:50] LABS: Glucose,Whole Blood 154 mg/dL (75-99)
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
[2018-02-28] MEDS: SODIUM CHLORIDE 0.9% 1,000 ML IV SCH (21:42)
[2018-02-28] MEDS: GABAPENTIN 300 MG CAP PO SCH (21:42)
--- NOTE | 2018-02-28 23:14 | PN ---
PROGRESS NOTE DATE OF SERVICE: 02/28/2018. REASON FOR FOLLOWUP VISIT: 1. Urinary tract infection. 2. Possible infection. INTERVAL HISTORY: The patient is afebrile. She has been breathing comfortably. Denies significant chest pain or any cough. No abdominal pain. No diarrhea. EXAMINATION: Blood pressure 122/87 with a pulse of 104, temperature 97.1. She is 100%. General description is a middle aged female lying in bed in no distress. RESPIRATORY SYSTEM: Unlabored breathing, clear to auscultation anteriorly. HEART: S1, S2. Regular rate. ABDOMEN: Soft, no tenderness. LABS: Hemoglobin is 11.1, white count 14.6, BUN of 24, creatinine 1.74. DIAGNOSTIC IMPRESSION AND PLAN: 1. Patient with Pseudomonas aeruginosa urinary tract infection for which the patient is currently on Fortaz and to continue to finish a course of therapy. 2. Patient with a positive blood culture, coagulase staph, possible contamination versus . Subclavian catheter has been discontinued. Catheter culture has been negative secondary to the central line infection. The patient is using aggressive IV fluids to prevent development of renal failure. This was discussed with the nurse practitioner for the primary team. Continue supportive care. MMODL / IJN: [id number] /
[2018-03-01 04:30] VITALS: RESP 16
[2018-03-01 06:06] LABS: Glucose,Whole Blood 95 mg/dL (75-99)
[2018-03-01] MEDS: INSULIN ASPART 100 UNIT/ML 1 ML 10 ML VIAL SQ SCH ×2 (06:18→11:24)
[2018-03-01 06:43] LABS: Albumin 3.4 g/dL (3.5-5.0); Calcium 9.9 mg/dL (8.4-10.2); Potassium 5.1 mmol/L (3.5-5.1); Total Bilirubin 0.4 mg/dL (0.2-1.3); Total Protein 5.9 g/dL (6.3-8.2)
[2018-03-01 06:46] LABS: Anisocytosis Slight; HCT 36.9 % (34.0-46.0); HGB 11.5 gm/dL (11.4-16.0); Hypochromasia Slight; MCH 29.1 pg (25.0-35.0); MCHC 31.1 g/dL (31.0-37.0); MCV 93.7 fL (80.0-100.0); Mean Platelet Volume 6.6; Platelet Count 273 k/uL (150-450); RBC 3.94 m/uL (3.80-5.40); RDW 16.8 % (11.5-15.5); WBC 11.5 k/uL (3.8-10.6)
[2018-03-01] MEDS: HEPARIN SODIUM,PORCINE 5,000 UNIT/ML 1 ML VIAL SQ SCH ×2 (08:23→16:36)
[2018-03-01] MEDS: SENNOSIDES-DOCUSATE SODIUM 1 EACH TAB PO SCH (08:24)
[2018-03-01] MEDS: POTASSIUM CHLORIDE ER 20 MEQ TAB.ER PO SCH (08:24)
[2018-03-01] MEDS: predniSONE 20 MG TAB PO SCH (08:24)
[2018-03-01] MEDS: METHADONE 10 MG TAB PO SCH (08:24)
[2018-03-01] MEDS: FAMOTIDINE 20 MG TAB PO SCH (08:24)
[2018-03-01] MEDS: SPIRONOLACTONE 25 MG TAB PO SCH (08:24)
[2018-03-01] MEDS: MAGNESIUM OXIDE 400 MG TAB PO SCH (08:24)
[2018-03-01] MEDS: IPRATROPIUM-ALBUTEROL 3 ML NEB INHALATION SCH ×2 (08:52→13:59)
[2018-03-01] MEDS: BUDESONIDE 0.5 MG/2 ML NEBU INHALATION SCH (08:53)
--- NOTE | 2018-03-01 10:16 | P.PN ---
Subjective Progress Note Date: 03/01/18 History of present illness: This is a 47-year-old female patient well-known to our services being seen examined and evaluated today on rounds. She does have a long-standing history of COPD, sarcoidosis on many other comorbidities. The patient is on long-term high-dose steroids, she has trialed to wean down in the past however each time she goes into respiratory distress and she continues to refuse to wean any further. The importance of finding a good balance between her prednisone dosing and wound healing has been discussed multiple times with the patient at length. She also does have a long-standing history of right lower extremity cellulitis and nonhealing wound. She does have a PICC line inserted and does follow with Dr. Rivera for infectious disease. Patient states she also has multiple recurrent UTIs and urinary retention. The patient was brought into the emergency room via EMS from her F with lethargy and increased temperature. The patient came in with a indwelling Lopez catheter and was being treated for a UTI at the [facility]. She currently is on 3 L of supplemental oxygen which is what she wears at all times as her baseline. She does utilize BiPAP at night and as needed. She states she has had some fevers over the past day and she has been tired. She does complain of a cough that is nonproductive. She is a nonsmoker. She has been using DuoNeb and budesonide at the [facility]. She also was noted to have a fever of 100.8 in the ER. Her lactic acid was 2.1. She did have hyponatremia with a sodium of 126, hypokalemia of 3.2 on admission CO2 of 30 to, BUN 19, creatinine 0.58. Her troponins were elevated and cardiology was put on consult. She did receive 2 L of IV fluid bolus in the ER. She was also noted to have a UTI and admission. Today her sodium has improved slightly to 128, her potassium has dropped down to 2.5. Her troponins remained elevated. She has no white count, she does have a low- grade temperature of 99.2 this morning. She is tachycardic at 105, she was slightly tachypneic overnight. Interval history: 02/24/2018patient is being seen examined and evaluated today on rounds. She continues to be somewhat lethargic but easily arousable, generally more awake today than yesterday. She has been seen by neurology and they recommended a brain CT and EEG. The brain CT was reviewed and shows no abnormalities. She is also being seen by nephrology her sodium continues to be 128. Infectious disease is on the case and has adjusted her antibiotics to Zosyn and Fortaz at this time. Urine culture showing gram-negative bacilli. Her Lopez catheter was changed. Patient's family is requesting she be transferred to [facility] for further care. She did utilize the BiPAP overnight. She continues on 3 L of supplemental oxygen via nasal cannula. She has been afebrile overnight, hemodynamically stable. No further complaints. 02/25/18- 02/26/18- please see Dr KASIE Earl notes 02/27/2018patient is being seen examined and evaluated today on rounds. She is resting up in bed on 2-3 L of supplemental oxygen. She did utilizes BiPAP overnight. There is no shortness breath with exertion and activity however is less severe than on admission. Her family is still requesting a transferred to [facility]. She did have an EEG which did show some slowing however no epileptic form discharges. She is afebrile no further complaints all labs and reports have been reviewed. 02/28/18- patient is being seen examined and evaluated today on rounds. Patient is resting up in bed on 2 L of supplemental oxygen via nasal cannula. She did consume some of her breakfast this morning. Breathing has been relatively stable. The patient is using her BiPAP each night. She is afebrile no further complaints. All labs and reports have been reviewed. Continues to be hemodynamically stable 03/01/18- patient is being seen examined and evaluated today on rounds. She is resting up in bed still continues to the tired and lethargic. She does answer questions appropriately however slow to respond. She did use the BiPAP overnight. She continues to have poor oral intake. Dietary does recommend possible tube feedings related to the patient's poor appetite. All labs and reports have been reviewed. Objective - Vital Signs Vital signs: Vital Signs Temp 97.5 F L 03/01/18 07:21 Pulse 100 03/01/18 09:07 Resp 16 03/01/18 07:21 BP 155/102 03/01/18 07:21 Pulse Ox 100 03/01/18 07:21 Intake & Output 02/28/18 03/01/18 03/01/18 18:59 06:59 18:59 Intake Total 340 225 Output Total 1200 300 Balance -860 -75 Weight 172.6 kg 178.5 kg Intake: IV 100 cefTAZidime 2 gm In 100 Sodium Chloride 0.9% 100 ml @ 100 mls/hr IVPB Q8HR [facility] Rx#:[id number] Intake, IV Titration 225 Amount Dextrose 5%-0.45% NaCl 1, 225 000 ml @ 75 mls/hr IV . [id number] LESLIE Rx#:[id number] Oral 240 Output: Urine 1200 300 Other: Voiding Method Indwelling Catheter Indwelling Catheter Indwelling Catheter - Exam GENERAL EXAM: Alert, tired, comfortable in no apparent distress. Morbidly obese HEAD: Normocephalic. EYES: Normal reaction of pupils, equal size. NOSE: Clear with pink turbinates. THROAT: No erythema or exudates. NECK: No masses, no JVD. CHEST: No chest wall deformity. Right-sided Infante port site LUNGS: Diminished throughout with poor air entry with no crackles, wheeze, rhonchi or dullness. CVS: S1 and S2 normal with no audible mumurs, regular rhythm. ABDOMEN: No hepatosplenomegaly, normal bowel sounds, no guarding or rigidity. EXTREMITIES: +2-3 edema noted, pedal pulses palpable. Cellulitis of the right lower extremity CENTRAL NERVOUS SYSTEM: No focal deficits, tone is normal in all 4 extremities. - Labs CBC & Chem 7: 03/01/18 06:13 03/01/18 06:13 Labs: Abnormal Lab Results - Last 24 Hours (Table) 02/28/18 02/28/18 02/28/18 Range/Units 10:20 16:09 20:48 WBC (3.8-10.6) k/uL RDW (11.5-15.5) % VBG pH 7.53 H (7.31-7.41) VBG pCO2 25 L (37-51) mmHg VBG HCO3 21 L (24-28) mmol/L BUN (7-17) mg/dL Creatinine (0.52-1.04) mg/dL POC Glucose (mg/dL) 249 H 154 H (75-99) mg/dL ALT (9-52) U/L Total Protein (6.3-8.2) g/dL Albumin (3.5-5.0) g/dL 03/01/18 03/01/18 Range/Units 06:13 06:13 WBC 11.5 H (3.8-10.6) k/uL RDW 16.8 H (11.5-15.5) % VBG pH (7.31-7.41) VBG pCO2 (37-51) mmHg VBG HCO3 (24-28) mmol/L BUN 28 H (7-17) mg/dL Creatinine 1.75 H (0.52-1.04) mg/dL POC Glucose (mg/dL) (75-99) mg/dL ALT 55 H (9-52) U/L Total Protein 5.9 L (6.3-8.2) g/dL Albumin 3.4 L (3.5-5.0) g/dL Microbiology - Last 24 Hours (Table) 02/24/18 11:33 Blood Culture - Preliminary Blood No Growth after 96 hours 02/26/18 09:33 Catheter Tip Culture - Final Picc Line Assessment and Plan Assessment: Assessment Metabolic encephalopathy Acute on chronic hypoxic respiratory failure requiring supplemental oxygen Acute hypercapnic respiratory failure Respiratory alkalosis related to sepsis 3/4 SIRS Sepsis with UTI Present on admission UTI Dehydration Basilar atelectasis doubt pneumonia at this time Sarcoidosis Morbid obesity Chronic pain syndrome AMBER with obesity hypoventilation syndrome Elevated troponins Hyponatremia Hypokalemia Neurogenic bladder Plan Family is requesting transfer to the [facility], primary care team and social work is looking into this, so far she has been denied Medications have been reviewed and will be continued as ordered. Recommend decreasing methadone dose further Patient may benefit from a possible MRI of the brain. Infectious disease on consult Neurology on consult and nephrology on consult Cardiology on consult Chronic high-dose steroid dependent related to sarcoidosis, which have been weaned down to prednisone 60mg Nebulizer treatments with DuoNeb and budesonide Continue with pulmonary hygiene, coughing and deep breathing exercises, and supportive care. Supplemental oxygen to maintain oxygen saturations of 92% or better. BiPAP at night and when necessary Continue nebulizer treatments. Initiate and encourage incentive spirometer Continue to monitor and replace electrolytes per protocol Weight loss recommended Increase activity as tolerated PT and OT GI and DVT prophylaxis. We will continue to monitor labs/results and adjust treatment as necessary. I performed an examination of the patient and discussed their management with the nurse practitioner. I have reviewed the nurse practitioner's note and agree with the documented findings and plan of care.
[2018-03-01 11:15] LABS: Glucose,Whole Blood 101 mg/dL (75-99)
[2018-03-01 11:48] VITALS: BMI 58.1
[2018-03-01 14:11] VITALS: PULSE 100
[2018-03-01 14:58] LABS: ABG Base Excess 0.2 mmol/L; ABG HCO3 25 mmol/L (21-25); ABG Oxygen Saturation 97.9 % (94-97); ABG PCO2 41 mmHg (35-45); ABG PO2 87 mmHg (83-108); ABG TCO2 26 mmol/L (19-24)
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
[2018-03-01 16:22] VITALS: BP 154/103; TEMP 97.2
[2018-03-01 16:34] LABS: Glucose,Whole Blood 175 mg/dL (75-99)
[2018-03-01] MEDS: SODIUM CHLORIDE 0.9% 1,000 ML IV SCH (16:35)
--- NOTE | 2018-03-01 17:13 | PN ---
PROGRESS NOTE Patient is seen for followup for acute kidney injury secondary to vancomycin toxicity. She was started on IV fluids at 50 mL/hour yesterday. Serum creatinine is about the same as yesterday. Patient has had fair urine output for 24 hours at about 1.5 L. She denies any significant complaints. PHYSICAL EXAMINATION: Blood pressure is elevated at 155/102, heart rate of 96 per minute. Patient is afebrile. EXAMINATION OF THE HEART: S1, S2. EXAMINATION OF LUNGS: Bilateral breath sounds are heard. ABDOMEN: Soft, obese. Examination of lower extremities shows trace edema bilaterally. SKIN CARE SPECIALIST exam is grossly intact. Labs reveal sodium 139, potassium 5.1, BUN 28, serum creatinine 1.75, hemoglobin 11.5 g/dL. ASSESSMENT: 1. Acute kidney injury secondary to vancomycin toxicity, currently non-oliguric. Potassium is elevated. We need to discontinue the potassium. I will continue with the IV fluids for now at 50 mL/hour. However, patient's blood pressure is more elevated. We can add low-dose calcium channel blockers if her blood pressure remains elevated. 2. Mild hyperkalemia. Discontinue the potassium supplement. 3. Hypertension. Currently blood pressure is high secondary to prednisone as well. Can add low-dose calcium channel blockers if blood pressure remains elevated. I do not see any significant antihypertensive medications at home prior to admission. 4. Type 2 diabetes. 5. Urine tract infection with urine culture growing pseudomonas. 6. Coagulase-negative Staph bacteremia. 7. Sarcoidosis, maintained on steroids. Calcium is within normal range. PLAN: Continue saline at 50 mL/hours. Discontinue potassium. Repeat labs in a.m. MMODL / IJN: [id number] /
--- NOTE | 2018-03-01 17:37 | PN ---
PROGRESS NOTE DATE OF SERVICE: 03/01/2018. REASON FOR FOLLOWUP: 1. Pseudomonas catheter associated urinary tract infection. 2. Positive blood culture, coagulase negative staph more likely contamination. INTERVAL HISTORY: The patient is currently afebrile. She is breathing comfortably. Denies significant chest pain. Occasional cough. No abdominal pain or any diarrhea. EXAMINATION: Blood pressure 152/103 with a pulse of 96. Temperature is 97.4. She is 100% on 2 L nasal cannula. General description is a middle-aged female lying in bed in no distress. RESPIRATORY SYSTEM: Unlabored breathing. Clear to auscultation anteriorly. HEART: S1, S2. Regular rate and rhythm. ABDOMEN: Soft, no tenderness. LABS: Hemoglobin 11.5, white count 11.5, BUN of 28, creatinine is 1.75. The catheter-tip culture has been negative. DIAGNOSTIC IMPRESSION AND PLAN: 1. Patient with Pseudomonas aeruginosa catheter-associated urinary tract infection. The patient is currently on Fortaz and received about a week of antibiotics which should be more than enough. I would recommend no antibiotic on discharge. This can be discontinued. 2. Patient did have a positive blood culture with coagulase-negative staph with concern for possible Infante catheter infection, has been discontinued. Catheter culture has been negative. No need for further vancomycin. Kidney function needs to be monitored closely. MMODL / IJN: [id number] /
== END 2018-03-01 17:15 | disposition short-term general hospital (02) | DRG 698 ==
LOC: EC 12:55 → 6SEL 18:33
PROVIDERS: ADMIT Internal Medicine; ATTEND Internal Medicine
DX: T83.511A Infection and inflammatory reaction due to indwelling urethral catheter, initial encounter (principal); A41.52 Sepsis due to Pseudomonas; G93.41 Metabolic encephalopathy; J96.21 Acute and chronic respiratory failure with hypoxia; J96.22 Acute and chronic respiratory failure with hypercapnia; E22.2 Syndrome of inappropriate secretion of antidiuretic hormone; E44.0 Moderate protein-calorie malnutrition; E66.2 Morbid (severe) obesity with alveolar hypoventilation; E87.4 Mixed disorder of acid-base balance; G72.0 Drug-induced myopathy; J98.11 Atelectasis; N17.9 Acute kidney failure, unspecified; L03.115 Cellulitis of right lower limb; Z68.43 Body mass index [BMI] 50.0-59.9, adult; N39.0 Urinary tract infection, site not specified; E11.65 Type 2 diabetes mellitus with hyperglycemia; E87.5 Hyperkalemia; E87.70 Fluid overload, unspecified; M48.02 Spinal stenosis, cervical region; N31.9 Neuromuscular dysfunction of bladder, unspecified; D86.0 Sarcoidosis of lung; E86.0 Dehydration; E87.6 Hypokalemia; G47.10 Hypersomnia, unspecified; G89.4 Chronic pain syndrome; I10 Essential (primary) hypertension; I34.0 Nonrheumatic mitral (valve) insufficiency; I89.0 Lymphedema, not elsewhere classified; J44.9 Chronic obstructive pulmonary disease, unspecified; M19.90 Unspecified osteoarthritis, unspecified site; M51.36 Other intervertebral disc degeneration, lumbar region; N39.498 Other specified urinary incontinence; T38.0X5A Adverse effect of glucocorticoids and synthetic analogues, initial encounter; T49.0X5A Adverse effect of local antifungal, anti-infective and anti-inflammatory drugs, initial encounter; T50.2X5A Adverse effect of carbonic-anhydrase inhibitors, benzothiadiazides and other diuretics, initial encounter; R77.9 Abnormality of plasma protein, unspecified; M47.9 Spondylosis, unspecified; Z79.899 Other long term (current) drug therapy; Z16.21 Resistance to vancomycin; Z79.52 Long term (current) use of systemic steroids; Z79.891 Long term (current) use of opiate analgesic; Z79.4 Long term (current) use of insulin; Z99.81 Dependence on supplemental oxygen; Z91.14 Patient's other noncompliance with medication regimen; Z87.891 Personal history of nicotine dependence; Z87.440 Personal history of urinary (tract) infections; Z87.01 Personal history of pneumonia (recurrent); Y92.239 Unspecified place in hospital as the place of occurrence of the external cause; Y84.6 Urinary catheterization as the cause of abnormal reaction of the patient, or of later complication, without mention of misadventure at the time of the procedure
CPT/HCPCS: 36415; 36600; 70450; 71045; 80048; 80053; 80202; 81001; 82140; 82550; 82553; 82803; 82805; 83036; 83605; 83735; 83930; 83935; 84132; 84295; 84300; 84443; 84484; 85025; 85027; 87040; 87070; 87077; 87086; 87186; 94640; 94660; 94760; 95819; 96361; 96365; 99285

== ENCOUNTER 2018-04-08 10:00 | Inpatient (IN) | payer OTHER ==
[2018-04-08] MEDS ORDERED: SODIUM CHLORIDE 0.9% 1,000 ML IV STA ×2 (10:05→11:49)
[2018-04-08] MEDS ORDERED: SODIUM CHLORIDE 0.9% 500 ML 500 ML IV STA (10:05)
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
[2018-04-08 11:03] LABS: Anisocytosis Slight; Basophils % (A) 0 %; Eosinophils # (A) 0.1 k/uL (0-0.7); Eosinophils % (A) 2 %; HCT 32.1 % (34.0-46.0); HGB 10.2 gm/dL (11.4-16.0); Hypochromasia Slight; Lymphocytes # (A) 1.7 k/uL (1.0-4.8); Lymphocytes % (A) 22 %; MCH 29.7 pg (25.0-35.0); MCHC 31.7 g/dL (31.0-37.0); MCV 93.7 fL (80.0-100.0); Mean Platelet Volume 6.8; Monocytes # (A) 0.3 k/uL (0-1.0); Monocytes % (A) 4 %; Neutrophils # (A) 5.3 k/uL (1.3-7.7); Neutrophils % (A) 70 %; Platelet Count 238 k/uL (150-450); RBC 3.43 m/uL (3.80-5.40); WBC 7.6 k/uL (3.8-10.6)
[2018-04-08 11:12] LABS: Albumin 2.5 g/dL (3.5-5.0); Calcium 8.8 mg/dL (8.4-10.2); Magnesium 1.7 mg/dL (1.6-2.3); Potassium 4.8 mmol/L (3.5-5.1); Total Bilirubin 0.4 mg/dL (0.2-1.3); Total Protein 5.1 g/dL (6.3-8.2)
[2018-04-08 11:43] LABS: Creatine Kinase MB 1.9 ng/mL (0.0-2.4)
[2018-04-08] MEDS ORDERED: MAGNESIUM SULFATE-D5W PMX 1 GM in DEXTROSE/WATER 1 100ML.BAG IVPB ONE (14:17)
[2018-04-08 15:21] LABS: Creatine Kinase 28 U/L (30-135)
[2018-04-08 15:34] LABS: Creatine Kinase MB 1.7 ng/mL (0.0-2.4); Troponin I <0.012 ng/mL (0.000-0.034)
[2018-04-08] MEDS ORDERED: NALOXONE 0.4 MG/ML 1 ML VIAL IV PRN (15:57)
[2018-04-08] MEDS ORDERED: ONDANSETRON ODT 4 MG TAB PO PRN (16:00)
[2018-04-08] MEDS ORDERED: HEPARIN SODIUM,PORCINE 5,000 UNIT/ML 1 ML VIAL IV STA (16:01)
[2018-04-08] MEDS: HEPARIN SOD,PORK IN 0.45% NACL 25,000 UNIT in 0.45% NACL 1 500ML.BAG IV SCH (17:15)
--- NOTE | 2018-04-08 19:45 | XR ---
EXAMINATION TYPE: XR chest 1V portable DATE OF EXAM: 04/08/2018 Comparison: 02/23/2018 Clinical History: 47-year-old female with shortness of breath Findings: Low lung volumes. The patient chin projects over the apices. Heart appears mildly enlarged. Diffuse i nterstitial prominence. Suggestion of a small left effusion with left basilar opacity. Impression: Hypoventilatory changes and the patient's chin projecting over the apices. There is cardiomegaly with small left effusion and adjacent atelectasis and/or consolidation. Correlate for possible mild CHF a s an etiology.
[2018-04-08 20:33] LABS: Glucose,Whole Blood 76 mg/dL (75-99)
--- NOTE | 2018-04-08 20:46 | NM ---
EXAMINATION TYPE: NM pul perfusion DATE OF EXAM: 04/08/2018 COMPARISON: Radiograph same day and old VQ scan 02/04/2018 HISTORY: 47 year-old female elevated d-dimer and hypotensive episode Technique: Following administration of 5.3 mCi Tc 99m MAA. Images obtained post injection. Perfusion images only as the patient was unable to lie flat for the duration of the test secondary to back ketan n. Also, the lateral projection was not acquired due to body habitus. FINDINGS: There is large area of decreased perfusion at the left base as compared to the prior VQ scan. There i s corresponding opacity on chest x-ray. IMPRESSION: Intermediate probability for pulmonary embolus given at least a double matched defect at the left bas e. Only perfusion imaging was performed. Patient could not further tolerate the study for completion of the ventilation images.
[2018-04-08] MEDS: FLUTICASONE 110 MCG INHALER INHALATION SCH (20:59)
[2018-04-08] MEDS: ALBUTEROL NEBULIZED 2.5 MG/3 ML INHALATION SCH (20:59)
[2018-04-08] MEDS ORDERED: NON-FORMULARY DRUG (Lactose-Reduced Food [Ensure Plus] 1 CAN) PO SCH (21:00)
[2018-04-08] MEDS ORDERED: metFORMIN 500 MG TAB PO SCH (21:00)
[2018-04-08] MEDS: CLOTRIMAZOLE/BETAMETH 1-0.05% CREAM 45 GM TUBE TOPICAL SCH (21:53)
[2018-04-08] MEDS: BETHANECHOL 25 MG TAB PO SCH ×2 (21:53→21:55)
[2018-04-08] MEDS: DULoxetine HCL 30 MG CAPSULE.DR PO SCH (21:53)
[2018-04-08] MEDS: COLLAGENASE 250 UNIT/GM OINTMENT 30 GM TUBE TOPICAL SCH (21:53)
[2018-04-08] MEDS: NYSTATIN 100,000 UNIT/GM POWD 15 GM TOPICAL SCH (21:54)
[2018-04-08] MEDS: PETROLATUM, WHITE OINT 50 GM TUBE TOPICAL SCH (21:54)
[2018-04-08] MEDS: ZINC OXIDE 20% OINT 28.4 GM TUBE TOPICAL SCH ×2 (21:54)
[2018-04-08] MEDS: GABAPENTIN 300 MG CAP PO SCH (21:59)
[2018-04-08] MEDS: FAMOTIDINE 20 MG TAB PO SCH (21:59)
[2018-04-08 23:23] LABS: Appearance,Urine Cloudy (Clear); Bacteria,Urine Rare /hpf; Bilirubin,Urine Negative (Negative); Blood,Urine Negative (Negative); Color,Urine Yellow; Glucose,Urine (UA) Negative (Negative); Ketones,Urine Negative (Negative); Leukocyte Esterase,Urine Moderate (Negative); Mucus,Urine Rare /hpf; Nitrite,Urine Negative (Negative); Protein,Urine 2+ (Negative); RBC,Urine 2 /hpf (0-5); Specific Gravity,Urine 1.016 (1.001-1.035); Squamous Epithelial Cell,Urine 4 /hpf (0-4); Urobilinogen,Urine <2.0 mg/dL (<2.0); WBC,Urine 18 /hpf (0-5)
[2018-04-08] MEDS: IPRATROPIUM-ALBUTEROL 3 ML NEB INHALATION PRN (23:56)
[2018-04-09] MEDS: DULoxetine HCL 30 MG CAPSULE.DR PO SCH ×2 (00:56→10:47)
[2018-04-09] MEDS: FAMOTIDINE 20 MG TAB PO SCH ×2 (00:57→10:47)
[2018-04-09] MEDS: GABAPENTIN 300 MG CAP PO SCH (00:57)
[2018-04-09] MEDS: ALBUTEROL NEBULIZED 2.5 MG/3 ML INHALATION SCH ×5 (03:52→20:06)
[2018-04-09] MEDS: HEPARIN SOD,PORK IN 0.45% NACL 25,000 UNIT in 0.45% NACL 1 500ML.BAG IV SCH (04:13)
[2018-04-09 05:58] LABS: Glucose,Whole Blood 105 mg/dL (75-99)
[2018-04-09] MEDS ORDERED: METHADONE 10 MG TAB PO SCH (09:00)
[2018-04-09] MEDS ORDERED: POTASSIUM CHLORIDE ER 20 MEQ TAB.ER PO SCH (09:00)
[2018-04-09] MEDS ORDERED: FUROSEMIDE 40 MG TAB PO SCH (09:00)
[2018-04-09] MEDS: FLUTICASONE 110 MCG INHALER INHALATION SCH ×2 (09:08→20:07)
[2018-04-09] MEDS: BETHANECHOL 25 MG TAB PO SCH ×3 (10:47→18:20)
[2018-04-09] MEDS: predniSONE 20 MG TAB PO SCH (10:47)
[2018-04-09] MEDS: PETROLATUM, WHITE OINT 50 GM TUBE TOPICAL SCH ×2 (10:48→23:16)
[2018-04-09] MEDS: COLLAGENASE 250 UNIT/GM OINTMENT 30 GM TUBE TOPICAL SCH ×2 (10:49→23:16)
[2018-04-09] MEDS: ZINC OXIDE 20% OINT 28.4 GM TUBE TOPICAL SCH ×3 (10:49→23:16)
[2018-04-09] MEDS: NYSTATIN 100,000 UNIT/GM POWD 15 GM TOPICAL SCH ×2 (10:49→23:16)
[2018-04-09] MEDS: CLOTRIMAZOLE/BETAMETH 1-0.05% CREAM 45 GM TUBE TOPICAL SCH ×2 (10:49→23:16)
[2018-04-09 10:51] LABS: Calcium 9.3 mg/dL (8.4-10.2)
[2018-04-09 10:55] LABS: Potassium 5.8 mmol/L (3.5-5.1)
[2018-04-09 12:03] LABS: Glucose,Whole Blood 92 mg/dL (75-99)
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
[2018-04-09] MEDS: METHADONE 5 MG TAB PO SCH (12:52)
[2018-04-09] MEDS: SODIUM BICARBONATE TAB 650 MG TAB PO SCH ×2 (12:52→18:21)
--- NOTE | 2018-04-09 13:14 | US ---
EXAMINATION TYPE: US kidneys/renal and bladder DATE OF EXAM: 04/09/2018 COMPARISON: CT CLINICAL HISTORY: gali. Patient is very short of breath. EXAM MEASUREMENTS: Right Kidney: 9.9 x 4.6 x 5.6 cm Left Kidney: 11.1 x 6.2 x 5.6 cm Technically difficult exam due to being performed portably, and patient unable to roll or take in a b reath. Right Kidney: No hydronephrosis or masses seen Left Kidney: cyst measures 2.7 x 2.1 x 2.6 cm. Bladder: not well distended, wall appears thickened, measures 0.8 cm. Bilateral Jets seen: no There is no evidence for hydronephrosis at this point in time. No nephrolithiasis is seen. No amy s are identified. The urinary bladder is distended. IMPRESSION: TECHNICALLY DIFFICULT EXAMINATION DEMONSTRATING NO EVIDENCE OF HYDRONEPHROSIS.
[2018-04-09 17:03] LABS: Glucose,Whole Blood 101 mg/dL (75-99)
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
[2018-04-09] MEDS ORDERED: FUROSEMIDE 10 MG/ML 10 ML VIAL IV STA (19:05)
[2018-04-09] MEDS ORDERED: INSULIN REGULAR 100 UNIT/ML VIAL IV ONE (19:05)
[2018-04-09] MEDS ORDERED: SODIUM BICARB 8.4% 50 ML SYR (1 MEQ/ML) IV STA (19:07)
[2018-04-09] MEDS ORDERED: DEXTROSE 50%-WATER 50 ML SYRINGE IVP STA (19:07)
[2018-04-09 21:05] LABS: Glucose,Whole Blood 154 mg/dL (75-99)
[2018-04-10] MEDS: DULoxetine HCL 30 MG CAPSULE.DR PO SCH ×3 (01:16→20:55)
[2018-04-10] MEDS: FAMOTIDINE 20 MG TAB PO SCH ×2 (01:16→12:18)
[2018-04-10] MEDS: BETHANECHOL 25 MG TAB PO SCH ×6 (01:17→21:16)
[2018-04-10] MEDS: GABAPENTIN 300 MG CAP PO SCH ×2 (01:17→20:56)
[2018-04-10] MEDS: SODIUM BICARBONATE TAB 650 MG TAB PO SCH ×3 (01:17→20:56)
[2018-04-10] MEDS: ALBUTEROL NEBULIZED 2.5 MG/3 ML INHALATION SCH ×4 (02:08→19:25)
[2018-04-10] MEDS ORDERED: SODIUM CHLORIDE 0.9% 500 ML 500 ML IV ONE ×2 (02:27→16:56)
[2018-04-10] MEDS: ZINC OXIDE 20% OINT 28.4 GM TUBE TOPICAL SCH ×5 (03:18→20:35)
[2018-04-10] MEDS: HEPARIN SOD,PORK IN 0.45% NACL 25,000 UNIT in 0.45% NACL 1 500ML.BAG IV SCH ×3 (03:41→15:31)
[2018-04-10 06:43] LABS: Glucose,Whole Blood 113 mg/dL (75-99)
[2018-04-10] MEDS: FLUTICASONE 110 MCG INHALER INHALATION SCH ×2 (08:18→19:28)
[2018-04-10] MEDS: NYSTATIN 100,000 UNIT/GM POWD 15 GM TOPICAL SCH (09:05)
[2018-04-10] MEDS: PETROLATUM, WHITE OINT 50 GM TUBE TOPICAL SCH ×2 (09:06→20:32)
[2018-04-10 11:36] LABS: Glucose,Whole Blood 78 mg/dL (75-99)
[2018-04-10] MEDS ORDERED: FUROSEMIDE 10 MG/ML 10 ML VIAL IV STA (11:38)
--- NOTE | 2018-04-10 11:40 | P.PN ---
Subjective Patient is seen in follow for acute kidney injury. Her baseline creatinine is 1. It was elevated at 2.68 yesterday. Patient presented to the hospital due to hypotension with systolic blood pressure in the 60s at the [facility]. She remains hypotensive with systolic blood pressure in the 90s this morning. She is currently on a BiPAP. Oral intake is poor. Feels nauseous. She has a Lopez catheter in place and urine output is documented as 150 mL overnight. Lactic acid level was noted to be elevated at 5.8 from last night. Blood work is pending from this morning as she is a difficult stick. Vital signs are stable. General: The patient appeared well nourished and normally developed. HEENT: Head exam is unremarkable. Neck is without jugular venous distension. On BiPAP. LUNGS: Lungs are clear to auscultation and percussion. Breath sounds decreased. HEART: Rate and Rhythm are regular. First and second heart sounds normal. No murmurs, rubs or gallops. ABDOMEN: Abdominal exam reveals normal bowel sounds. Non-tender and non- distended. No evidence of peritonitis. EXTREMITITES: 2+ edema. Objective - Vital Signs Vital signs: Vital Signs Temp 98.0 F 04/10/18 03:53 Pulse 115 H 04/10/18 03:53 Resp 18 04/10/18 08:00 BP 96/68 04/10/18 03:53 Pulse Ox 98 04/10/18 03:53 Intake & Output 04/09/18 04/10/18 04/10/18 18:59 06:59 18:59 Intake Total 932.603 77.397 Output Total 1 150 1 Balance 931.603 -72.603 -1 Weight 174 kg Intake: Intake, IV Titration 732.603 77.397 Amount Heparin Sod,Pork in 0.45% 422.603 77.397 NaCl 25,000 unit In 0.45 % NaCl 1 500ml.bag @ 14. 914 UNITS/KG/HR 46 mls/hr IV .[id number] LESLIE Rx#: [id number] Sodium Chloride 0.9% 1, 310 000 ml @ 75 mls/hr IV . [id number] STA Rx#:[id number] Oral 200 Output: Urine 150 Stool 1 1 Other: Voiding Method Indwelling Catheter Indwelling Catheter - Labs CBC & Chem 7: 04/08/18 10:45 04/10/18 00:25 Labs: Abnormal Lab Results - Last 24 Hours (Table) 04/09/18 04/09/18 04/09/18 Range/Units 17:00 17:14 17:14 APTT 180.0 H* (22.0-30.0) sec Potassium 5.9 H (3.5-5.1) mmol/L POC Glucose (mg/dL) 101 H (75-99) mg/dL Plasma Lactic Acid Andrey (0.7-2.0) mmol/L Ur Random Microalbumin (0.0-1.9) mg/dL U Random Total Protein (<12) mg/dL Microalb/Creat Ratio (0-30) mg/g Creat 04/09/18 04/09/18 04/09/18 Range/Units 18:18 18:18 21:04 APTT (22.0-30.0) sec Potassium (3.5-5.1) mmol/L POC Glucose (mg/dL) 154 H (75-99) mg/dL Plasma Lactic Acid Andrey (0.7-2.0) mmol/L Ur Random Microalbumin 36.0 H (0.0-1.9) mg/dL U Random Total Protein 116 H (<12) mg/dL Microalb/Creat Ratio 178 H (0-30) mg/g Creat 04/10/18 04/10/18 04/10/18 Range/Units 00:25 00:25 00:25 APTT 97.4 H (22.0-30.0) sec Potassium 5.3 H (3.5-5.1) mmol/L POC Glucose (mg/dL) (75-99) mg/dL Plasma Lactic Acid Andrey 5.8 H* (0.7-2.0) mmol/L Ur Random Microalbumin (0.0-1.9) mg/dL U Random Total Protein (<12) mg/dL Microalb/Creat Ratio (0-30) mg/g Creat 04/10/18 Range/Units 06:01 APTT (22.0-30.0) sec Potassium (3.5-5.1) mmol/L POC Glucose (mg/dL) 113 H (75-99) mg/dL Plasma Lactic Acid Andrey (0.7-2.0) mmol/L Ur Random Microalbumin (0.0-1.9) mg/dL U Random Total Protein (<12) mg/dL Microalb/Creat Ratio (0-30) mg/g Creat Microbiology - Last 24 Hours (Table) 04/09/18 18:18 Urine Culture - Preliminary Urine,Catheterized Assessment and Plan Plan: Assessment: 1. Acute kidney injury secondary to ATN secondary to hypotension. Creatinine 2.68 as of yesterday. Baseline creatinine near 1. No hydronephrosis noted on renal ultrasound. She is noted to have sudden nephrotic proteinuria. 2. Proteinuria. Her albumin is also low. UPC 0.5. Rule out GN. 3. Metabolic acidosis secondary to acute kidney injury and IV fluids. 4. Edema. 5. Hypotension. Rule out adrenal insufficiency. 6. Diabetes mellitus. Patient states this was diagnosed within the last 1 year. 7. Positive d-dimer with intermediate probability of PE on VQ scan maintained on IV heparin. 8. Hyperkalemia. This is due to acute kidney injury and metabolic acidosis. Also hemolyzed sample. Potassium supplementation discontinued. Plan: Follow-up a.m. cortisol level. Strict I's and O's. Maintain oral sodium bicarbonate supplementation. Avoid nephrotoxins. Discontinue prednisone. Start Solu-Cortef 50 mg IV every 8 hours. Check serologies. Lasix 60 mg IV once today.
[2018-04-10] MEDS ORDERED: HYDROCORTISONE SUCCINATE 100 MG/2 ML VIAL IV SCH ×2 (12:00→13:00)
[2018-04-10] MEDS: CLOTRIMAZOLE/BETAMETH 1-0.05% CREAM 45 GM TUBE TOPICAL SCH ×2 (12:18→20:34)
[2018-04-10] MEDS: METHADONE 5 MG TAB PO SCH (12:19)
[2018-04-10] MEDS ORDERED: LIDOCAINE 1% INJ 10MG/ML (20 ML MDV) SQ ONE (13:23)
--- NOTE | 2018-04-10 14:14 | IR ---
PICC LINE PLACEMENT: HISTORY: Infection requiring long-term antibiotic therapy PROCEDURE: Ultrasound and fluoroscopic guidance of PICC line placement. COMPLICATIONS: None ANESTHESIA: 1. 1% Lidocaine locally. FINDINGS/TECHNIQUE: The procedure was explained to the patient. The risks, complications, benefits and alternatives were discussed and any questions were answered. Informed consent was obtained. The patient was placed supine on the fluoroscopic table and prepped and draped in the usual sterile fash ion. Utilizing a 21 gauge needle and sonographic and fluoroscopic guidance, access in the right bas ilic vein vein was achieved and there is placement of a 0.018 guidewire. The vein is patent. A 4-F sheath was placed over the guidewire. The guidewire and dilator were removed and a 4-F. PICC line wa s placed through the sheath with the tip at the level of the SVC. The sheath was removed, the cathet er was flushed and sutured into position. The patient was stable throughout the procedure and remain ed stable upon discharge from the Department of Radiology. The vein puncture was patent under ultrasound. A ordaz scale image was obtained to document patency of the vein punctured. All elements of the maximal barrier technique were utilized. FLUOROSCOPY TIME: 0.2 minutes, one image submitted IMPRESSION: Successful PICC line placement under ultrasound and fluoroscopic guidance.
[2018-04-10 14:15] LABS: Glucose,Whole Blood 81 mg/dL (75-99)
[2018-04-10 15:19] LABS: Albumin 2.5 g/dL (3.5-5.0); Calcium 8.4 mg/dL (8.4-10.2); Potassium 5.3 mmol/L (3.5-5.1); Total Bilirubin 0.6 mg/dL (0.2-1.3); Total Protein 5.1 g/dL (6.3-8.2)
[2018-04-10] MEDS: HEPARIN SODIUM,PORCINE 5,000 UNIT/ML 1 ML VIAL SQ SCH (15:59)
[2018-04-10] MEDS: MIDODRINE 5 MG TAB PO SCH ×3 (15:59→17:40)
[2018-04-10] MEDS: COLLAGENASE 250 UNIT/GM OINTMENT 30 GM TUBE TOPICAL SCH ×2 (16:00→20:33)
[2018-04-10] MEDS: ONDANSETRON 4 MG/2 ML VIAL IVP PRN (16:15)
--- NOTE | 2018-04-10 16:27 | P.PN ---
<Jeanne Roca A - Last Filed: 04/10/18 16:11> Subjective Progress Note Date: 04/10/18 This is 47 years old female with past medical history significant for sarcoidosis, morbid obesity, diabetes mellitus and multiple comorbidities, residence of [facility] who was recently discharged from [facility] presents today from [facility] with hypotension, slight tachycardia and hypoxia. In the emergency department blood pressure was below 90/60, heart rate in the 110 area, oxygen was in the mid 80s patient was started on oxygen and blood work showed elevated creatinine patient was sent to VQ scan which showed intermediate probability with limited examination due to motion factor and patient was started on heparin drip for assumption of pulmonary embolism. Patient is poor historian and unable to provide detailed information and was refusing care per nursing staff since admission to the floor including her medication and using her BiPAP on an as-needed basis. Patient currently is denying chest pain, shortness breath, nausea, vomiting, abdominal pain or productive cough 04/10: Received call today from the nursing staff the patient was really sick, blood pressure was low and was lethargic and sleeping well on BiPAP most the morning and lactic acid was elevated at 5.8 last evening.. She was unable to take her medications or eat this morning. She has increased edema. Patient has only had 150 mL of urine output overnight. She does have a Lopez catheter in. There was no IV access. Patient has been seen by by nephrology and cortisol level ordered along with Solu-Cortef and Lasix 60 mg IV once. Prednisone was discontinued. Patient was transferred into the intensive care unit and consult requested with Dr. Robin for intensive care management. Methadone dose changed to 50 mg daily which is her current dose at [facility]. Diarrhea has resolved. Review Of Systems: Constitutional: No fever, no chills, no night sweats. No weight change. + weakness, +fatigue, +lethargy. + daytime sleepiness. EENT: No headache. No epistaxis. No sore throat. Lungs: No shortness of breath, cough, no sputum production. No wheezing. Cardiovascular: No chest pain, + lower extremity edema. No palpitations. No paroxysmal nocturnal dyspnea. No orthopnea. No lightheadedness or dizziness. No syncopal episodes. Abdominal: No abdominal pain. No nausea, vomiting. No diarrhea. No constipation. No bloody or tarry stools. + loss of appetite. Genitourinary: No dysuria, increased frequency, urgency. + urinary retention. Musculoskeletal: + myalgias. + muscle weakness, + gait dysfunction. Integumentary: No rash or pruritus. Psychiatric: No depression. No anxiety. Endocrine: No abnormal blood sugars. No excessive sweating or thirst. No cold intolerance. No weight change. Objective - Vital Signs Vital signs: Vital Signs Temp 98.0 F 04/10/18 14:00 Pulse 112 H 04/10/18 15:30 Resp 12 04/10/18 15:30 BP 112/61 04/10/18 15:30 Pulse Ox 99 04/10/18 15:30 Intake & Output 04/09/18 04/10/18 04/10/18 18:59 06:59 18:59 Intake Total 932.603 77.397 Output Total 1 150 101 Balance 931.603 -72.603 -101 Weight 174 kg Intake: Intake, IV Titration 732.603 77.397 Amount Heparin Sod,Pork in 0.45% 422.603 77.397 NaCl 25,000 unit In 0.45 % NaCl 1 500ml.bag @ 14. 914 UNITS/KG/HR 46 mls/hr IV .[id number] LESLIE Rx#: [id number] Sodium Chloride 0.9% 1, 310 000 ml @ 75 mls/hr IV . [id number] Rx#:[id number] Oral 200 Output: Urine 150 100 Stool 1 1 Other: Voiding Method Indwelling Catheter Indwelling Catheter - Exam Gen: This is a morbidly obese 47-year-old [place] female. She is in bed and appears to be in no acute distress, patient appears lethargic HEENT: Head is atraumatic, normocephalic. Pupils equal, round. Sclerae is anicteric. Hearing grossly normal. NECK: Supple. No JVD. No lymphadenopathy. No thyromegaly. LUNGS: Diminished bilaterally. Clear to auscultation. No wheezes or rhonchi. No intercostal retractions. HEART: Regular rate and rhythm. No murmur. ABDOMEN: Morbidly obese. Soft. Bowel sounds are present. No masses. No tenderness. EXTREMITIES: 2+ pedal edema. No calf tenderness. No redness. NEUROLOGICAL: Patient is awake, alert and oriented x2. Generalized weakness. - Labs CBC & Chem 7: 04/08/18 10:45 04/10/18 14:45 Labs: Abnormal Lab Results - Last 24 Hours (Table) 04/09/18 04/09/18 04/09/18 Range/Units 17:00 17:14 17:14 APTT 180.0 H* (22.0-30.0) sec Sodium (137-145) mmol/L Potassium 5.9 H (3.5-5.1) mmol/L Carbon Dioxide (22-30) mmol/L Creatinine (0.52-1.04) mg/dL POC Glucose (mg/dL) 101 H (75-99) mg/dL Plasma Lactic Acid Andrey (0.7-2.0) mmol/L AST (14-36) U/L Alkaline Phosphatase (38-126) U/L Total Protein (6.3-8.2) g/dL Albumin (3.5-5.0) g/dL Ur Random Microalbumin (0.0-1.9) mg/dL U Random Total Protein (<12) mg/dL Microalb/Creat Ratio (0-30) mg/g Creat 04/09/18 04/09/18 04/09/18 Range/Units 18:18 18:18 21:04 APTT (22.0-30.0) sec Sodium (137-145) mmol/L Potassium (3.5-5.1) mmol/L Carbon Dioxide (22-30) mmol/L Creatinine (0.52-1.04) mg/dL POC Glucose (mg/dL) 154 H (75-99) mg/dL Plasma Lactic Acid Andrey (0.7-2.0) mmol/L AST (14-36) U/L Alkaline Phosphatase (38-126) U/L Total Protein (6.3-8.2) g/dL Albumin (3.5-5.0) g/dL Ur Random Microalbumin 36.0 H (0.0-1.9) mg/dL U Random Total Protein 116 H (<12) mg/dL Microalb/Creat Ratio 178 H (0-30) mg/g Creat 04/10/18 04/10/18 04/10/18 Range/Units 00:25 00:25 00:25 APTT 97.4 H (22.0-30.0) sec Sodium (137-145) mmol/L Potassium 5.3 H (3.5-5.1) mmol/L Carbon Dioxide (22-30) mmol/L Creatinine (0.52-1.04) mg/dL POC Glucose (mg/dL) (75-99) mg/dL Plasma Lactic Acid Andrey 5.8 H* (0.7-2.0) mmol/L AST (14-36) U/L Alkaline Phosphatase (38-126) U/L Total Protein (6.3-8.2) g/dL Albumin (3.5-5.0) g/dL Ur Random Microalbumin (0.0-1.9) mg/dL U Random Total Protein (<12) mg/dL Microalb/Creat Ratio (0-30) mg/g Creat 04/10/18 04/10/18 04/10/18 Range/Units 06:01 14:45 14:45 APTT (22.0-30.0) sec Sodium 130 L (137-145) mmol/L Potassium 5.3 H (3.5-5.1) mmol/L Carbon Dioxide 21 L (22-30) mmol/L Creatinine 2.93 H (0.52-1.04) mg/dL POC Glucose (mg/dL) 113 H (75-99) mg/dL Plasma Lactic Acid Andrey 2.6 H* (0.7-2.0) mmol/L AST 46 H (14-36) U/L Alkaline Phosphatase 202 H (38-126) U/L Total Protein 5.1 L (6.3-8.2) g/dL Albumin 2.5 L (3.5-5.0) g/dL Ur Random Microalbumin (0.0-1.9) mg/dL U Random Total Protein (<12) mg/dL Microalb/Creat Ratio (0-30) mg/g Creat Microbiology - Last 24 Hours (Table) 04/09/18 18:18 Urine Culture - Preliminary Urine,Catheterized Assessment and Plan Plan: 1. Sepsis with septic shock secondary to urinary tract infection with lactic acidosis. Patient transferred to the intensive care unit. PICC line ordered for IV access. Consult with Dr. Robin. 2. Intermediate probability of pulmonary embolism currently on heparin drip. Pulmonary medicine is following 3. Acute respiratory failure on chronic respiratory failure with hypoxia. Continue albuterol nebulizer treatments every 6 hours, DuoNeb treatments every 4 hours as needed, Flovent 2 puffs twice daily, heparin drip. 4. Morbid obesity. 5. Neurogenic bladder with incontinence. Urinary retention requiring Lopez catheter placement. 6. Diabetes mellitus type 2 insulin-dependent. Metformin on hold. NovoLog scale before meals and at bedtime. 7. Debility and deconditioning. 8. Dehydration. 9. Acute kidney injury and ATN likely secondary to dehydration with hyperkalemia. Consult with nephrology appreciated. Patient was given D50, regular insulin, Lasix. 10. Sarcoidosis following with [facility] on daily dose of steroids. Changed over to Solu-Cortef 11. Hyperkalemia 12. Metabolic encephalopathy secondary to sepsis. 13. Chronic pain. Methadone currently at 50 mg daily 14. CODE STATUS: Full code Discharge plan: Return to [facility] as long-term resident Impression and plan of care have been directed as dictated by the signing physician. Jeanne Roca nurse practitioner acting as scribe for signing physician. <Kaylan Vizcarra - Last Filed: 04/23/18 23:09> Objective - Vital Signs Vital signs: Vital Signs Temp 97.6 F 04/23/18 20:00 Pulse 96 04/23/18 22:30 Resp 26 H 04/23/18 22:30 BP 125/80 04/23/18 12:28 Pulse Ox 100 04/23/18 22:30 Intake & Output 04/23/18 04/23/18 04/24/18 06:59 18:59 06:59 Intake Total 2159.934 428 Output Total 12 0 Balance 2147.934 428 Weight Intake: IV 672 224 Sodium Chloride 0.9% 1, 600 200 000 ml @ 50 mls/hr IV . Q20H LESLIE Rx#:[id number] pressure bag 72 24 Intake, IV Titration 276.934 Amount Norepinephrine 16 mg In Sodium Chloride 0.9% 250 ml @ Titrate IV .Q0M LESLIE Rx#:[id number] Propofol 1,000 mg In 276.934 Empty Bag 1 bag @ Titrate IV .Q0M LESLIE Rx#: [id number] Tube Feeding 561 204 Blood Product 620 Rc Pheresis As-3 Unit 310 [id number] Rc Pheresis As-3 Unit 310 [id number] Other 30 Output: Urine 10 0 Stool 2 Other: Voiding Method Indwelling Catheter Indwelling Catheter # Voids ABP, PAP, CO, CI - Last Documented Arterial Blood Pressure 109/61 - Labs CBC & Chem 7: 04/23/18 14:20 04/23/18 05:30 Labs: Abnormal Lab Results - Last 24 Hours (Table) 04/20/18 04/23/18 04/23/18 Range/Units 20:06 04:22 05:30 WBC (3.8-10.6) k/uL RBC (3.80-5.40) m/uL Hgb (11.4-16.0) gm/dL Hct (34.0-46.0) % RDW (11.5-15.5) % Plt Count (150-450) k/uL Neutrophils # (Manual) (1.3-7.7) k/uL Metamyelocytes # (Man) (0) k/uL Myelocytes # (Manual) (0) k/uL Promyelocytes # (Man) (0) k/uL Nucleated RBCs (0-0) /100 WBC APTT (22.0-30.0) sec ABG Total CO2 (19-24) mmol/L ABG O2 Saturation (94-97) % Sodium 136 L (137-145) mmol/L Carbon Dioxide 20 L (22-30) mmol/L BUN 18 H (7-17) mg/dL Creatinine 1.35 H (0.52-1.04) mg/dL Glucose 263 H (74-99) mg/dL POC Glucose (mg/dL) 259 H (75-99) mg/dL Calcium 6.9 L (8.4-10.2) mg/dL Phosphorus 1.7 L (2.5-4.5) mg/dL Total Bilirubin 8.0 H (0.2-1.3) mg/dL AST 524 H (14-36) U/L ALT 231 H (9-52) U/L Alkaline Phosphatase 331 H (38-126) U/L Lactate Dehydrogenase (313-618) U/L Total Protein 4.5 L (6.3-8.2) g/dL Albumin 2.8 L (3.5-5.0) g/dL Crossmatch See Detail 04/23/18 04/23/18 04/23/18 Range/Units 05:36 07:43 08:16 WBC 27.0 H (3.8-10.6) k/uL RBC 1.84 L (3.80-5.40) m/uL Hgb 5.5 L* D (11.4-16.0) gm/dL Hct 16.6 L* (34.0-46.0) % RDW 18.2 H (11.5-15.5) % Plt Count 88 L (150-450) k/uL Neutrophils # (Manual) 19.70 H (1.3-7.7) k/uL Metamyelocytes # (Man) 2.43 H (0) k/uL Myelocytes # (Manual) 2.97 H (0) k/uL Promyelocytes # (Man) 0.27 H (0) k/uL Nucleated RBCs 23 H (0-0) /100 WBC APTT (22.0-30.0) sec ABG Total CO2 25 H (19-24) mmol/L ABG O2 Saturation 97.8 H (94-97) % Sodium (137-145) mmol/L Carbon Dioxide (22-30) mmol/L BUN (7-17) mg/dL Creatinine (0.52-1.04) mg/dL Glucose (74-99) mg/dL POC Glucose (mg/dL) 218 H (75-99) mg/dL Calcium (8.4-10.2) mg/dL Phosphorus (2.5-4.5) mg/dL Total Bilirubin (0.2-1.3) mg/dL AST (14-36) U/L ALT (9-52) U/L Alkaline Phosphatase (38-126) U/L Lactate Dehydrogenase (313-618) U/L Total Protein (6.3-8.2) g/dL Albumin (3.5-5.0) g/dL Crossmatch 04/23/18 04/23/18 04/23/18 Range/Units 11:52 14:20 14:20 WBC 25.0 H (3.8-10.6) k/uL RBC 2.59 L (3.80-5.40) m/uL Hgb 8.4 L D (11.4-16.0) gm/dL Hct 23.1 L (34.0-46.0) % RDW 16.9 H (11.5-15.5) % Plt Count 71 L (150-450) k/uL Neutrophils # (Manual) 21.50 H (1.3-7.7) k/uL Metamyelocytes # (Man) 1.50 H (0) k/uL Myelocytes # (Manual) 1.00 H (0) k/uL Promyelocytes # (Man) (0) k/uL Nucleated RBCs 33 H (0-0) /100 WBC APTT (22.0-30.0) sec ABG Total CO2 (19-24) mmol/L ABG O2 Saturation (94-97) % Sodium (137-145) mmol/L Carbon Dioxide (22-30) mmol/L BUN (7-17) mg/dL Creatinine (0.52-1.04) mg/dL Glucose (74-99) mg/dL POC Glucose (mg/dL) 204 H (75-99) mg/dL Calcium (8.4-10.2) mg/dL Phosphorus (2.5-4.5) mg/dL Total Bilirubin (0.2-1.3) mg/dL AST (14-36) U/L ALT (9-52) U/L Alkaline Phosphatase (38-126) U/L Lactate Dehydrogenase 6098 H (313-618) U/L Total Protein (6.3-8.2) g/dL Albumin (3.5-5.0) g/dL Crossmatch 04/23/18 04/23/18 04/23/18 Range/Units 14:20 17:15 20:44 WBC (3.8-10.6) k/uL RBC (3.80-5.40) m/uL Hgb (11.4-16.0) gm/dL Hct (34.0-46.0) % RDW (11.5-15.5) % Plt Count (150-450) k/uL Neutrophils # (Manual) (1.3-7.7) k/uL Metamyelocytes # (Man) (0) k/uL Myelocytes # (Manual) (0) k/uL Promyelocytes # (Man) (0) k/uL Nucleated RBCs (0-0) /100 WBC APTT 39.6 H (22.0-30.0) sec ABG Total CO2 (19-24) mmol/L ABG O2 Saturation (94-97) % Sodium (137-145) mmol/L Carbon Dioxide (22-30) mmol/L BUN (7-17) mg/dL Creatinine (0.52-1.04) mg/dL Glucose (74-99) mg/dL POC Glucose (mg/dL) 223 H 162 H (75-99) mg/dL Calcium (8.4-10.2) mg/dL Phosphorus (2.5-4.5) mg/dL Total Bilirubin (0.2-1.3) mg/dL AST (14-36) U/L ALT (9-52) U/L Alkaline Phosphatase (38-126) U/L Lactate Dehydrogenase (313-618) U/L Total Protein (6.3-8.2) g/dL Albumin (3.5-5.0) g/dL Crossmatch Microbiology - Last 24 Hours (Table) 04/21/18 00:29 Gram Stain - Final Sputum Sputum Culture - Final Pseudomonas aeruginosa Carmel albicans Assessment and Plan Plan: diagnosis should reflect acute kidney failure secondary to septic shock, ATN chronic steroids 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
[2018-04-10] MEDS ORDERED: VANCOMYCIN IV PER PHARMACY 1 EACH MISC MISCELLANE SCH (16:30)
[2018-04-10] MEDS: IPRATROPIUM-ALBUTEROL 3 ML NEB INHALATION PRN (16:51)
[2018-04-10] MEDS: SODIUM CHLORIDE 0.9% 1,000 ML IV SCH (17:07)
[2018-04-10] MEDS ORDERED: INSULIN REGULAR 100 UNIT/ML VIAL IV ONE (17:17)
[2018-04-10] MEDS ORDERED: DEXTROSE 50%-WATER 50 ML SYRINGE IVP STA (17:18)
[2018-04-10] MEDS: INSULIN ASPART 100 UNIT/ML 1 ML 10 ML VIAL SQ SCH ×2 (17:24→20:56)
[2018-04-10 17:35] LABS: Glucose,Whole Blood 94 mg/dL (75-99)
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
[2018-04-10] MEDS: PIPERACILLIN-TAZOBACTAM 3.375 GM in DEXTROSE/WATER 1 50ML.BAG IVPB SCH (17:57)
[2018-04-10] MEDS ORDERED: VANCOMYCIN 2,250 MG in SODIUM CHLORIDE 0.9% 500 ML 500 ML IVPB ONE (18:00)
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
[2018-04-10 20:38] LABS: Glucose,Whole Blood 85 mg/dL (75-99)
[2018-04-10 20:55] LABS: Glucose,Whole Blood 92 mg/dL (75-99)
[2018-04-11] MEDS: PIPERACILLIN-TAZOBACTAM 3.375 GM in DEXTROSE/WATER 1 50ML.BAG IVPB SCH ×4 (00:04→18:29)
[2018-04-11] MEDS: NYSTATIN 100,000 UNIT/GM POWD 15 GM TOPICAL SCH ×3 (00:04→21:53)
[2018-04-11] MEDS: methylPREDNISolone SOD SUCCI 125 MG/2 ML VIAL IV SCH ×4 (00:04→18:30)
[2018-04-11] MEDS: HEPARIN SODIUM,PORCINE 5,000 UNIT/ML 1 ML VIAL SQ SCH ×3 (00:04→15:38)
[2018-04-11] MEDS ORDERED: INSULIN REGULAR 100 UNIT/ML VIAL IV ONE (00:20)
[2018-04-11] MEDS ORDERED: DEXTROSE 50%-WATER 50 ML SYRINGE IVP STA (00:20)
[2018-04-11 02:35] LABS: Protein, Total 4.7 g/dL (6.2-8.2)
[2018-04-11] MEDS: ALBUTEROL NEBULIZED 2.5 MG/3 ML INHALATION SCH ×4 (03:11→19:36)
[2018-04-11 03:12] LABS: Glucose,Whole Blood 117 mg/dL (75-99)
[2018-04-11 04:22] LABS: Hemoglobin A1C 6.4 % (4.0-6.0)
[2018-04-11 04:24] LABS: Anti-DNA, DS unit <1.0 IU/mL; DNA Double-Stranded NEGATIVE (NEGATIVE)
[2018-04-11 04:45] LABS: Anisocytosis Slight; Basophils % (A) 0 %; Eosinophils # (A) 0.1 k/uL (0-0.7); Eosinophils % (A) 1 %; HCT 30.1 % (34.0-46.0); HGB 9.3 gm/dL (11.4-16.0); Hypochromasia Moderate; Lymphocytes # (A) 1.2 k/uL (1.0-4.8); Lymphocytes % (A) 14 %; MCH 29.5 pg (25.0-35.0); MCHC 31.1 g/dL (31.0-37.0); MCV 95.1 fL (80.0-100.0); Monocytes # (A) 0.2 k/uL (0-1.0); Monocytes % (A) 3 %; Neutrophils % (A) 82 %; Platelet Count 239 k/uL (150-450); RBC 3.17 m/uL (3.80-5.40); RDW 17.3 % (11.5-15.5); WBC 8.6 k/uL (3.8-10.6)
[2018-04-11 05:00] LABS: Calcium 8.2 mg/dL (8.4-10.2); Magnesium 1.9 mg/dL (1.6-2.3); Phosphorus 4.8 mg/dL (2.5-4.5); Potassium 5.3 mmol/L (3.5-5.1)
[2018-04-11 05:05] LABS: Vancomycin,Random 25.6 ug/mL
[2018-04-11 05:12] LABS: Hepatitis A Antibody IgM Non-Reactive (Non-Reactive); Hepatitis B Core IgM Non-Reactive (Non-Reactive)
[2018-04-11] MEDS: SODIUM CHLORIDE 0.9% 1,000 ML IV SCH ×2 (05:57→15:38)
[2018-04-11] MEDS ORDERED: FUROSEMIDE 10 MG/ML 4 ML VIAL IV STA ×2 (06:25→17:11)
[2018-04-11] MEDS: FLUTICASONE 110 MCG INHALER INHALATION SCH ×2 (07:28→19:47)
[2018-04-11 07:34] LABS: Glucose,Whole Blood 134 mg/dL (75-99)
[2018-04-11] MEDS: INSULIN ASPART 100 UNIT/ML 1 ML 10 ML VIAL SQ SCH ×4 (08:52→21:50)
[2018-04-11 09:03] LABS: Glucose,Whole Blood 124 mg/dL (75-99)
[2018-04-11] MEDS: DULoxetine HCL 30 MG CAPSULE.DR PO SCH ×2 (09:07→21:52)
[2018-04-11] MEDS: METHADONE 10 MG TAB PO SCH (09:07)
[2018-04-11] MEDS: FAMOTIDINE 20 MG TAB PO SCH (09:09)
[2018-04-11] MEDS: BETHANECHOL 25 MG TAB PO SCH ×4 (09:10→21:51)
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
--- NOTE | 2018-04-11 09:31 | XR ---
EXAMINATION TYPE: XR chest 1V DATE OF EXAM: 04/11/2018 COMPARISON: Prior chest x-ray 04/08/2018 HISTORY: Shortness of breath TECHNIQUE: Single frontal view of the chest is obtained. FINDINGS: There is a right-sided PICC line, distal tip is overlying superior vena cava. There are ov erlying cardiac leads. Heart is enlarged and stable. Patient is rotated. Exam somewhat limited due to technique, no evident pneumothorax or pleural effusion. IMPRESSION: Stable cardiomegaly. Interval PICC line placement. Limited exam, follow-up as indicated.
[2018-04-11] MEDS: ONDANSETRON 4 MG/2 ML VIAL IVP PRN ×2 (09:33→16:21)
[2018-04-11] MEDS: MIDODRINE 5 MG TAB PO SCH ×3 (09:33→18:50)
[2018-04-11] MEDS: PETROLATUM, WHITE OINT 50 GM TUBE TOPICAL SCH ×2 (09:35→21:54)
[2018-04-11] MEDS: ZINC OXIDE 20% OINT 28.4 GM TUBE TOPICAL SCH ×4 (09:36→21:53)
[2018-04-11] MEDS: CLOTRIMAZOLE/BETAMETH 1-0.05% CREAM 45 GM TUBE TOPICAL SCH ×2 (09:36→21:53)
[2018-04-11] MEDS: COLLAGENASE 250 UNIT/GM OINTMENT 30 GM TUBE TOPICAL SCH (09:36)
--- NOTE | 2018-04-11 10:42 | P.PN ---
Subjective Patient is seen in follow for acute kidney injury. Her baseline creatinine is 1. It is up to 2.99 today. Patient presented to the hospital due to hypotension with systolic blood pressure in the 60s at the E[facility]. Patient was transferred to the ICU yesterday with persistent hypotension and lactic acidosis. She is currently maintained on normal saline at 100 mL an hour. She was also started on IV steroids. Cortisol level normal. Oral intake is poor. Urine output has been about 10-15 mL an hour. Vital signs are stable. General: The patient appeared well nourished and normally developed. HEENT: Head exam is unremarkable. Neck is without jugular venous distension. On BiPAP. LUNGS: Breath sounds decreased. HEART: Rate and Rhythm are regular. First and second heart sounds normal. No murmurs, rubs or gallops. ABDOMEN: Abdominal exam reveals normal bowel sounds. Non-tender and non- distended. No evidence of peritonitis. EXTREMITITES: 2+ edema. Objective - Vital Signs Vital signs: Vital Signs Temp 97.2 F L 04/11/18 04:00 Pulse 104 H 04/11/18 07:40 Resp 17 04/11/18 07:00 BP 111/82 04/11/18 07:00 Pulse Ox 99 04/11/18 07:00 Intake & Output 04/10/18 04/11/18 04/11/18 18:59 06:59 18:59 Intake Total 750 2048.5 Output Total 126 115 Balance 624 1933.5 Weight 166 kg 167.7 kg Intake: IV 600 1938.5 DAPTOmycin 600 mg In 50 Sodium Chloride 0.9% 50 ml @ 100 mls/hr IVPB Q48H [facility] Rx#:[id number] Piperacillin-Tazobactam 3 87.5 .375 gm In Dextrose/Water 1 50ml.bag @ 12.5 mls/hr IVPB Q8HR [facility] Rx#: [id number] Sodium Chloride 0.9% 1, 100 1300 000 ml @ 100 mls/hr IV . Q10H [facility] Rx#:[id number] Sodium Chloride 0.9% 500 500 ml 500 ml @ 500 mls/hr IV .Q1H [facility] Rx#:[id number] Vancomycin 2,250 mg In 501 Sodium Chloride 0.9% 500 ml 500 ml @ 167 mls/hr IVPB ONCE ONE Rx#: [id number] Oral 150 110 Output: Urine 125 115 Stool 1 Other: Voiding Method Indwelling Catheter Indwelling Catheter - Labs CBC & Chem 7: 04/11/18 04:21 04/11/18 04:21 Labs: Abnormal Lab Results - Last 24 Hours (Table) 04/09/18 04/10/18 04/10/18 Range/Units 18:18 14:45 14:45 RBC (3.80-5.40) m/uL Hgb (11.4-16.0) gm/dL Hct (34.0-46.0) % RDW (11.5-15.5) % Sodium 130 L (137-145) mmol/L Potassium 5.3 H (3.5-5.1) mmol/L Carbon Dioxide 21 L (22-30) mmol/L Creatinine 2.93 H (0.52-1.04) mg/dL Glucose (74-99) mg/dL POC Glucose (mg/dL) (75-99) mg/dL Hemoglobin A1c (4.0-6.0) % Plasma Lactic Acid Andrey 2.6 H* (0.7-2.0) mmol/L Calcium (8.4-10.2) mg/dL Phosphorus (2.5-4.5) mg/dL AST 46 H (14-36) U/L Alkaline Phosphatase 202 H (38-126) U/L Total Protein 5.1 L (6.3-8.2) g/dL Total Protein (PEP) (6.2-8.2) g/dL Albumin 2.5 L (3.5-5.0) g/dL Ur Random Microalbumin 36.0 H (0.0-1.9) mg/dL Microalb/Creat Ratio 178 H (0-30) mg/g Creat 04/10/18 04/10/18 04/10/18 Range/Units 14:45 16:22 18:48 RBC (3.80-5.40) m/uL Hgb (11.4-16.0) gm/dL Hct (34.0-46.0) % RDW (11.5-15.5) % Sodium (137-145) mmol/L Potassium (3.5-5.1) mmol/L Carbon Dioxide (22-30) mmol/L Creatinine (0.52-1.04) mg/dL Glucose (74-99) mg/dL POC Glucose (mg/dL) (75-99) mg/dL Hemoglobin A1c 6.4 H (4.0-6.0) % Plasma Lactic Acid Andrey 3.2 H* (0.7-2.0) mmol/L Calcium (8.4-10.2) mg/dL Phosphorus (2.5-4.5) mg/dL AST (14-36) U/L Alkaline Phosphatase (38-126) U/L Total Protein (6.3-8.2) g/dL Total Protein (PEP) 4.7 L (6.2-8.2) g/dL Albumin (3.5-5.0) g/dL Ur Random Microalbumin (0.0-1.9) mg/dL Microalb/Creat Ratio (0-30) mg/g Creat 04/10/18 04/10/18 04/11/18 Range/Units 21:36 23:48 03:00 RBC (3.80-5.40) m/uL Hgb (11.4-16.0) gm/dL Hct (34.0-46.0) % RDW (11.5-15.5) % Sodium (137-145) mmol/L Potassium 5.4 H (3.5-5.1) mmol/L Carbon Dioxide (22-30) mmol/L Creatinine (0.52-1.04) mg/dL Glucose (74-99) mg/dL POC Glucose (mg/dL) 117 H (75-99) mg/dL Hemoglobin A1c (4.0-6.0) % Plasma Lactic Acid Andrey 2.1 H* (0.7-2.0) mmol/L Calcium (8.4-10.2) mg/dL Phosphorus (2.5-4.5) mg/dL AST (14-36) U/L Alkaline Phosphatase (38-126) U/L Total Protein (6.3-8.2) g/dL Total Protein (PEP) (6.2-8.2) g/dL Albumin (3.5-5.0) g/dL Ur Random Microalbumin (0.0-1.9) mg/dL Microalb/Creat Ratio (0-30) mg/g Creat 04/11/18 04/11/18 04/11/18 Range/Units 04:21 04:21 07:22 RBC 3.17 L (3.80-5.40) m/uL Hgb 9.3 L (11.4-16.0) gm/dL Hct 30.1 L (34.0-46.0) % RDW 17.3 H (11.5-15.5) % Sodium 131 L (137-145) mmol/L Potassium 5.3 H (3.5-5.1) mmol/L Carbon Dioxide 21 L (22-30) mmol/L Creatinine 2.99 H (0.52-1.04) mg/dL Glucose 119 H (74-99) mg/dL POC Glucose (mg/dL) 134 H (75-99) mg/dL Hemoglobin A1c (4.0-6.0) % Plasma Lactic Acid Andrey (0.7-2.0) mmol/L Calcium 8.2 L (8.4-10.2) mg/dL Phosphorus 4.8 H (2.5-4.5) mg/dL AST (14-36) U/L Alkaline Phosphatase (38-126) U/L Total Protein (6.3-8.2) g/dL Total Protein (PEP) (6.2-8.2) g/dL Albumin (3.5-5.0) g/dL Ur Random Microalbumin (0.0-1.9) mg/dL Microalb/Creat Ratio (0-30) mg/g Creat 04/11/18 Range/Units 08:51 RBC (3.80-5.40) m/uL Hgb (11.4-16.0) gm/dL Hct (34.0-46.0) % RDW (11.5-15.5) % Sodium (137-145) mmol/L Potassium (3.5-5.1) mmol/L Carbon Dioxide (22-30) mmol/L Creatinine (0.52-1.04) mg/dL Glucose (74-99) mg/dL POC Glucose (mg/dL) 124 H (75-99) mg/dL Hemoglobin A1c (4.0-6.0) % Plasma Lactic Acid Andrey (0.7-2.0) mmol/L Calcium (8.4-10.2) mg/dL Phosphorus (2.5-4.5) mg/dL AST (14-36) U/L Alkaline Phosphatase (38-126) U/L Total Protein (6.3-8.2) g/dL Total Protein (PEP) (6.2-8.2) g/dL Albumin (3.5-5.0) g/dL Ur Random Microalbumin (0.0-1.9) mg/dL Microalb/Creat Ratio (0-30) mg/g Creat Microbiology - Last 24 Hours (Table) 04/09/18 18:18 Urine Culture - Preliminary Urine,Catheterized Group D Enterococcus Assessment and Plan Plan: Assessment: 1. Acute kidney injury secondary to ATN secondary to hypotension. Creatinine up to 2.99 today. Baseline creatinine near 1. No hydronephrosis noted on renal ultrasound. She is noted to have sub-nephrotic proteinuria. 2. Proteinuria. Her albumin is also low. UPC 0.5. Rule out GN. Serologies negative so far. 3. Metabolic acidosis secondary to acute kidney injury and IV fluids. Better. 4. Edema. 5. Hypotension. This is due to to sepsis. Cortisol level normal. 6. Diabetes mellitus. Patient states this was diagnosed within the last 1 year. 7. UTI with urine culture positive for group D enterococcus. Infectious disease following. Vancomycin discontinued. 8. Hyperkalemia. This is due to acute kidney injury and metabolic acidosis. Potassium supplementation discontinued. 9. Hyponatremia secondary to acute kidney injury. Plan: Status post Lasix 40 mg IV this morning. Strict I's and O's. Maintain oral sodium bicarbonate supplementation. Avoid nephrotoxins. Follow-up serologies. Wean IV fluids if blood pressure remains stable. Patient is quite edematous.
[2018-04-11] MEDS: IPRATROPIUM-ALBUTEROL 3 ML NEB INHALATION PRN ×2 (11:21→19:36)
[2018-04-11] MEDS: SODIUM BICARBONATE TAB 650 MG TAB PO SCH ×2 (11:57→21:52)
[2018-04-11 12:09] LABS: Glucose,Whole Blood 151 mg/dL (75-99)
[2018-04-11] MEDS: predniSONE 20 MG TAB PO SCH (12:10)
[2018-04-11 14:02] LABS: C-ANCA <1:20 Titer (<1:20); P-ANCA <1:20 Titer (<1:20)
[2018-04-11] MEDS ORDERED: IOPAMIDOL-300 CONTRAST 30 ML VIAL (ORAL USE) PO PRN (14:57)
[2018-04-11 15:00] LABS: Albumin 2.35 g/dL (3.80-4.90); Gamma Globulin 0.52 g/dL (0.70-1.50)
--- NOTE | 2018-04-11 15:09 | P.PN ---
<Jeanne Roca A - Last Filed: 04/11/18 15:01> Subjective Progress Note Date: 04/11/18 This is 47 years old female with past medical history significant for sarcoidosis, morbid obesity, diabetes mellitus and multiple comorbidities, residence of care home who was recently discharged from [facility] presents today from care home with hypotension, slight tachycardia and hypoxia. In the emergency department blood pressure was below 90/60, heart rate in the 110 area, oxygen was in the mid 80s patient was started on oxygen and blood work showed elevated creatinine patient was sent to VQ scan which showed intermediate probability with limited examination due to motion factor and patient was started on heparin drip for assumption of pulmonary embolism. Patient is poor historian and unable to provide detailed information and was refusing care per nursing staff since admission to the floor including her medication and using her BiPAP on an as-needed basis. Patient currently is denying chest pain, shortness breath, nausea, vomiting, abdominal pain or productive cough 04/10: Received call today from the nursing staff the patient was really sick, blood pressure was low and was lethargic and sleeping well on BiPAP most the morning and lactic acid was elevated at 5.8 last evening.. She was unable to take her medications or eat this morning. She has increased edema. Patient has only had 150 mL of urine output overnight. She does have a Lopez catheter in. There was no IV access. Patient has been seen by by nephrology and cortisol level ordered along with Solu-Cortef and Lasix 60 mg IV once. Prednisone was discontinued. Patient was transferred into the intensive care unit and consult requested with Dr. Robin for intensive care management. Methadone dose changed to 50 mg daily which is her current dose at [facility]. Diarrhea has resolved. 04/11: Repeat chest x-ray reveals stable cardiomegaly. PICC placement. Patient has been seen by Dr. Colon and vancomycin and daptomycin started, continue Zosyn. Santyl to lower extremity cellulitis. Patient has been seen by Dr. Robin with concern for possible left lower lobe pneumonia, small left pleural effusion and dehydration. This morning, Dr. Moran ordered Lasix 40 mg IV once , IV dextrose 50% and regular insulin. Cortisol level was normal. Steroids are Solu-Medrol 60 mg every 6 hours. Midodrine was started yesterday for blood pressure support. Blood pressure is much improved today. Hemoglobin is 9.3, sodium 131 and potassium 5.3, creatinine 2.99. Capillary blood glucose running between 117 and 134. Lactic acid is now down to 1.9. Vancomycin level 25.6. Patient has been hemodynamically stable, afebrile. Patient has been on BiPAP and this morning is on nasal cannula, she remains lethargic but more alert from yesterday. Lopez catheter is in place. She continues to have lower extremity edema and now with weeping. No diarrhea. Patient has not had a bowel movement since 04/10. Urine output has been adequate at 50 mL per hour for the past 4 hours. She is complaining of nausea and abdominal discomfort for which lipase and CAT scan of the abdomen and pelvis ordered with oral contrast only. Review Of Systems: Constitutional: No fever, no chills, no night sweats. +weakness, +fatigue, + lethargy. + daytime sleepiness. EENT: No headache. No epistaxis. No sore throat. Lungs: + shortness of breath, + cough, no sputum production. No wheezing. Cardiovascular: No chest pain, + lower extremity edema. No palpitations. No paroxysmal nocturnal dyspnea. No orthopnea. No lightheadedness or dizziness. No syncopal episodes. Abdominal: + abdominal pain. No nausea, vomiting. No diarrhea. No constipation. No bloody or tarry stools. + loss of appetite. Genitourinary: No dysuria, increased frequency, urgency. + urinary retention. Musculoskeletal: + myalgias. + muscle weakness, + gait dysfunction. Integumentary: No rash or pruritus. + wheeping lower legs Neurological: + mental status change. Endocrine: No abnormal blood sugars. Objective - Vital Signs Vital signs: Vital Signs Temp 97.2 F L 04/11/18 04:00 Pulse 104 H 04/11/18 07:40 Resp 17 04/11/18 07:00 BP 111/82 04/11/18 07:00 Pulse Ox 99 04/11/18 07:00 Intake & Output 04/10/18 04/11/18 04/11/18 18:59 06:59 18:59 Intake Total 750 2048.5 Output Total 126 115 Balance 624 1933.5 Weight 166 kg 167.7 kg Intake: IV 600 1938.5 DAPTOmycin 600 mg In 50 Sodium Chloride 0.9% 50 ml @ 100 mls/hr IVPB Q48H [facility] Rx#:[id number] Piperacillin-Tazobactam 3 87.5 .375 gm In Dextrose/Water 1 50ml.bag @ 12.5 mls/hr IVPB Q8HR [facility] Rx#: [id number] Sodium Chloride 0.9% 1, 100 1300 000 ml @ 100 mls/hr IV . Q10H [facility] Rx#:[id number] Sodium Chloride 0.9% 500 500 ml 500 ml @ 500 mls/hr IV .Q1H [facility] Rx#:[id number] Vancomycin 2,250 mg In 501 Sodium Chloride 0.9% 500 ml 500 ml @ 167 mls/hr IVPB ONCE ONE Rx#: [id number] Oral 150 110 Output: Urine 125 115 Stool 1 Other: Voiding Method Indwelling Catheter Indwelling Catheter - Exam Gen: This is a morbidly obese 47-year-old [place] female. She is in ICU bed and appears to be in no acute distress, patient appears lethargic HEENT: Head is atraumatic, normocephalic. Pupils equal, round. Sclerae is anicteric. Hearing grossly normal. NECK: Supple. No JVD. No lymphadenopathy. No thyromegaly. LUNGS: Diminished bilaterally. Clear to auscultation. No wheezes or rhonchi. No intercostal retractions. HEART: Regular rate and rhythm. No murmur. ABDOMEN: Morbidly obese. Soft. Bowel sounds are present. No masses. Positive epigastric tenderness. Lopez catheter draining clear benjy urine. EXTREMITIES: 2+ pedal edema with serous weeping. No calf tenderness. NEUROLOGICAL: Patient is awake, alert and oriented x2. Generalized weakness. - Labs CBC & Chem 7: 04/11/18 04:21 04/11/18 04:21 Labs: Abnormal Lab Results - Last 24 Hours (Table) 04/09/18 04/10/18 04/10/18 Range/Units 18:18 14:45 14:45 RBC (3.80-5.40) m/uL Hgb (11.4-16.0) gm/dL Hct (34.0-46.0) % RDW (11.5-15.5) % Sodium 130 L (137-145) mmol/L Potassium 5.3 H (3.5-5.1) mmol/L Carbon Dioxide 21 L (22-30) mmol/L Creatinine 2.93 H (0.52-1.04) mg/dL Glucose (74-99) mg/dL POC Glucose (mg/dL) (75-99) mg/dL Hemoglobin A1c (4.0-6.0) % Plasma Lactic Acid Andrey 2.6 H* (0.7-2.0) mmol/L Calcium (8.4-10.2) mg/dL Phosphorus (2.5-4.5) mg/dL AST 46 H (14-36) U/L Alkaline Phosphatase 202 H (38-126) U/L Total Protein 5.1 L (6.3-8.2) g/dL Total Protein (PEP) (6.2-8.2) g/dL Albumin 2.5 L (3.5-5.0) g/dL Ur Random Microalbumin 36.0 H (0.0-1.9) mg/dL Microalb/Creat Ratio 178 H (0-30) mg/g Creat 04/10/18 04/10/18 04/10/18 Range/Units 14:45 16:22 18:48 RBC (3.80-5.40) m/uL Hgb (11.4-16.0) gm/dL Hct (34.0-46.0) % RDW (11.5-15.5) % Sodium (137-145) mmol/L Potassium (3.5-5.1) mmol/L Carbon Dioxide (22-30) mmol/L Creatinine (0.52-1.04) mg/dL Glucose (74-99) mg/dL POC Glucose (mg/dL) (75-99) mg/dL Hemoglobin A1c 6.4 H (4.0-6.0) % Plasma Lactic Acid Andrey 3.2 H* (0.7-2.0) mmol/L Calcium (8.4-10.2) mg/dL Phosphorus (2.5-4.5) mg/dL AST (14-36) U/L Alkaline Phosphatase (38-126) U/L Total Protein (6.3-8.2) g/dL Total Protein (PEP) 4.7 L (6.2-8.2) g/dL Albumin (3.5-5.0) g/dL Ur Random Microalbumin (0.0-1.9) mg/dL Microalb/Creat Ratio (0-30) mg/g Creat 04/10/18 04/10/18 04/11/18 Range/Units 21:36 23:48 03:00 RBC (3.80-5.40) m/uL Hgb (11.4-16.0) gm/dL Hct (34.0-46.0) % RDW (11.5-15.5) % Sodium (137-145) mmol/L Potassium 5.4 H (3.5-5.1) mmol/L Carbon Dioxide (22-30) mmol/L Creatinine (0.52-1.04) mg/dL Glucose (74-99) mg/dL POC Glucose (mg/dL) 117 H (75-99) mg/dL Hemoglobin A1c (4.0-6.0) % Plasma Lactic Acid Andrey 2.1 H* (0.7-2.0) mmol/L Calcium (8.4-10.2) mg/dL Phosphorus (2.5-4.5) mg/dL AST (14-36) U/L Alkaline Phosphatase (38-126) U/L Total Protein (6.3-8.2) g/dL Total Protein (PEP) (6.2-8.2) g/dL Albumin (3.5-5.0) g/dL Ur Random Microalbumin (0.0-1.9) mg/dL Microalb/Creat Ratio (0-30) mg/g Creat 04/11/18 04/11/18 04/11/18 Range/Units 04:21 04:21 07:22 RBC 3.17 L (3.80-5.40) m/uL Hgb 9.3 L (11.4-16.0) gm/dL Hct 30.1 L (34.0-46.0) % RDW 17.3 H (11.5-15.5) % Sodium 131 L (137-145) mmol/L Potassium 5.3 H (3.5-5.1) mmol/L Carbon Dioxide 21 L (22-30) mmol/L Creatinine 2.99 H (0.52-1.04) mg/dL Glucose 119 H (74-99) mg/dL POC Glucose (mg/dL) 134 H (75-99) mg/dL Hemoglobin A1c (4.0-6.0) % Plasma Lactic Acid Andrey (0.7-2.0) mmol/L Calcium 8.2 L (8.4-10.2) mg/dL Phosphorus 4.8 H (2.5-4.5) mg/dL AST (14-36) U/L Alkaline Phosphatase (38-126) U/L Total Protein (6.3-8.2) g/dL Total Protein (PEP) (6.2-8.2) g/dL Albumin (3.5-5.0) g/dL Ur Random Microalbumin (0.0-1.9) mg/dL Microalb/Creat Ratio (0-30) mg/g Creat 04/11/18 Range/Units 08:51 RBC (3.80-5.40) m/uL Hgb (11.4-16.0) gm/dL Hct (34.0-46.0) % RDW (11.5-15.5) % Sodium (137-145) mmol/L Potassium (3.5-5.1) mmol/L Carbon Dioxide (22-30) mmol/L Creatinine (0.52-1.04) mg/dL Glucose (74-99) mg/dL POC Glucose (mg/dL) 124 H (75-99) mg/dL Hemoglobin A1c (4.0-6.0) % Plasma Lactic Acid Andrey (0.7-2.0) mmol/L Calcium (8.4-10.2) mg/dL Phosphorus (2.5-4.5) mg/dL AST (14-36) U/L Alkaline Phosphatase (38-126) U/L Total Protein (6.3-8.2) g/dL Total Protein (PEP) (6.2-8.2) g/dL Albumin (3.5-5.0) g/dL Ur Random Microalbumin (0.0-1.9) mg/dL Microalb/Creat Ratio (0-30) mg/g Creat Microbiology - Last 24 Hours (Table) 04/09/18 18:18 Urine Culture - Preliminary Urine,Catheterized Group D Enterococcus Assessment and Plan Plan: 1. Sepsis with septic shock secondary to urinary tract infection with lactic acidosis. Patient transferred to the intensive care unit. PICC line ordered for IV access. Consults with Dr. Robin and Dr. Colon appreciated. Antibiotics changed to daptomycin and Zosyn. 2. Intermediate probability of pulmonary embolism currently on heparin drip changed to heparin subcu. Pulmonary medicine is following 3. Acute respiratory failure on chronic respiratory failure with hypoxia. Continue albuterol nebulizer treatments every 6 hours, DuoNeb treatments every 4 hours as needed, Flovent 2 puffs twice daily, Solu-Medrol. 4. Morbid obesity. 5. Neurogenic bladder with incontinence. Urinary retention requiring Lopez catheter placement. 6. Diabetes mellitus type 2 insulin-dependent. Metformin on hold. NovoLog scale before meals and at bedtime. 7. Debility and deconditioning. 8. Dehydration. 9. Acute kidney injury and ATN likely secondary to dehydration with hyperkalemia. Consult with nephrology appreciated. Patient was given D50, regular insulin, Lasix. 10. Sarcoidosis following with [facility] on daily dose of steroids. Changed over to Solu-Cortef 11. Hyperkalemia 12. Metabolic encephalopathy secondary to sepsis. 13. Chronic pain. Methadone currently at 50 mg daily 14. Abdominal pain, CAT scan of the abdomen and pelvis and lipase ordered. 15. CODE STATUS: Full code Discharge plan: Return to [facility] as long-term resident. Patient is known to have guardian. Impression and plan of care have been directed as dictated by the signing physician. Jeanne Roca nurse practitioner acting as scribe for signing physician. <Kaylan Vizcarra - Last Filed: 04/23/18 23:10> Objective - Vital Signs Vital signs: Vital Signs Temp 97.6 F 04/23/18 20:00 Pulse 96 04/23/18 23:00 Resp 25 H 04/23/18 23:00 BP 125/80 04/23/18 12:28 Pulse Ox 98 04/23/18 23:00 Intake & Output 04/23/18 04/23/18 04/24/18 06:59 18:59 06:59 Intake Total 2159.934 484 Output Total 12 2 Balance 2147.934 482 Weight Intake: IV 672 280 Sodium Chloride 0.9% 1, 600 250 000 ml @ 50 mls/hr IV . Q20H [facility] Rx#:[id number] pressure bag 72 30 Intake, IV Titration 276.934 Amount Norepinephrine 16 mg In Sodium Chloride 0.9% 250 ml @ Titrate IV .Q0M [facility] Rx#:[id number] Propofol 1,000 mg In 276.934 Empty Bag 1 bag @ Titrate IV .Q0M [facility] Rx#: [id number] Tube Feeding 561 204 Blood Product 620 Rc Pheresis As-3 Unit 310 [id number] Rc Pheresis As-3 Unit 310 [id number] Other 30 Output: Urine 10 2 Stool 2 Other: Voiding Method Indwelling Catheter Indwelling Catheter # Voids ABP, PAP, CO, CI - Last Documented Arterial Blood Pressure 118/60 - Labs CBC & Chem 7: 04/23/18 14:20 04/23/18 05:30 Labs: Abnormal Lab Results - Last 24 Hours (Table) 04/20/18 04/23/18 04/23/18 Range/Units 20:06 04:22 05:30 WBC (3.8-10.6) k/uL RBC (3.80-5.40) m/uL Hgb (11.4-16.0) gm/dL Hct (34.0-46.0) % RDW (11.5-15.5) % Plt Count (150-450) k/uL Neutrophils # (Manual) (1.3-7.7) k/uL Metamyelocytes # (Man) (0) k/uL Myelocytes # (Manual) (0) k/uL Promyelocytes # (Man) (0) k/uL Nucleated RBCs (0-0) /100 WBC APTT (22.0-30.0) sec ABG Total CO2 (19-24) mmol/L ABG O2 Saturation (94-97) % Sodium 136 L (137-145) mmol/L Carbon Dioxide 20 L (22-30) mmol/L BUN 18 H (7-17) mg/dL Creatinine 1.35 H (0.52-1.04) mg/dL Glucose 263 H (74-99) mg/dL POC Glucose (mg/dL) 259 H (75-99) mg/dL Calcium 6.9 L (8.4-10.2) mg/dL Phosphorus 1.7 L (2.5-4.5) mg/dL Total Bilirubin 8.0 H (0.2-1.3) mg/dL AST 524 H (14-36) U/L ALT 231 H (9-52) U/L Alkaline Phosphatase 331 H (38-126) U/L Lactate Dehydrogenase (313-618) U/L Total Protein 4.5 L (6.3-8.2) g/dL Albumin 2.8 L (3.5-5.0) g/dL Crossmatch See Detail 04/23/18 04/23/18 04/23/18 Range/Units 05:36 07:43 08:16 WBC 27.0 H (3.8-10.6) k/uL RBC 1.84 L (3.80-5.40) m/uL Hgb 5.5 L* D (11.4-16.0) gm/dL Hct 16.6 L* (34.0-46.0) % RDW 18.2 H (11.5-15.5) % Plt Count 88 L (150-450) k/uL Neutrophils # (Manual) 19.70 H (1.3-7.7) k/uL Metamyelocytes # (Man) 2.43 H (0) k/uL Myelocytes # (Manual) 2.97 H (0) k/uL Promyelocytes # (Man) 0.27 H (0) k/uL Nucleated RBCs 23 H (0-0) /100 WBC APTT (22.0-30.0) sec ABG Total CO2 25 H (19-24) mmol/L ABG O2 Saturation 97.8 H (94-97) % Sodium (137-145) mmol/L Carbon Dioxide (22-30) mmol/L BUN (7-17) mg/dL Creatinine (0.52-1.04) mg/dL Glucose (74-99) mg/dL POC Glucose (mg/dL) 218 H (75-99) mg/dL Calcium (8.4-10.2) mg/dL Phosphorus (2.5-4.5) mg/dL Total Bilirubin (0.2-1.3) mg/dL AST (14-36) U/L ALT (9-52) U/L Alkaline Phosphatase (38-126) U/L Lactate Dehydrogenase (313-618) U/L Total Protein (6.3-8.2) g/dL Albumin (3.5-5.0) g/dL Crossmatch 04/23/18 04/23/18 04/23/18 Range/Units 11:52 14:20 14:20 WBC 25.0 H (3.8-10.6) k/uL RBC 2.59 L (3.80-5.40) m/uL Hgb 8.4 L D (11.4-16.0) gm/dL Hct 23.1 L (34.0-46.0) % RDW 16.9 H (11.5-15.5) % Plt Count 71 L (150-450) k/uL Neutrophils # (Manual) 21.50 H (1.3-7.7) k/uL Metamyelocytes # (Man) 1.50 H (0) k/uL Myelocytes # (Manual) 1.00 H (0) k/uL Promyelocytes # (Man) (0) k/uL Nucleated RBCs 33 H (0-0) /100 WBC APTT (22.0-30.0) sec ABG Total CO2 (19-24) mmol/L ABG O2 Saturation (94-97) % Sodium (137-145) mmol/L Carbon Dioxide (22-30) mmol/L BUN (7-17) mg/dL Creatinine (0.52-1.04) mg/dL Glucose (74-99) mg/dL POC Glucose (mg/dL) 204 H (75-99) mg/dL Calcium (8.4-10.2) mg/dL Phosphorus (2.5-4.5) mg/dL Total Bilirubin (0.2-1.3) mg/dL AST (14-36) U/L ALT (9-52) U/L Alkaline Phosphatase (38-126) U/L Lactate Dehydrogenase 6098 H (313-618) U/L Total Protein (6.3-8.2) g/dL Albumin (3.5-5.0) g/dL Crossmatch 04/23/18 04/23/18 04/23/18 Range/Units 14:20 17:15 20:44 WBC (3.8-10.6) k/uL RBC (3.80-5.40) m/uL Hgb (11.4-16.0) gm/dL Hct (34.0-46.0) % RDW (11.5-15.5) % Plt Count (150-450) k/uL Neutrophils # (Manual) (1.3-7.7) k/uL Metamyelocytes # (Man) (0) k/uL Myelocytes # (Manual) (0) k/uL Promyelocytes # (Man) (0) k/uL Nucleated RBCs (0-0) /100 WBC APTT 39.6 H (22.0-30.0) sec ABG Total CO2 (19-24) mmol/L ABG O2 Saturation (94-97) % Sodium (137-145) mmol/L Carbon Dioxide (22-30) mmol/L BUN (7-17) mg/dL Creatinine (0.52-1.04) mg/dL Glucose (74-99) mg/dL POC Glucose (mg/dL) 223 H 162 H (75-99) mg/dL Calcium (8.4-10.2) mg/dL Phosphorus (2.5-4.5) mg/dL Total Bilirubin (0.2-1.3) mg/dL AST (14-36) U/L ALT (9-52) U/L Alkaline Phosphatase (38-126) U/L Lactate Dehydrogenase (313-618) U/L Total Protein (6.3-8.2) g/dL Albumin (3.5-5.0) g/dL Crossmatch Microbiology - Last 24 Hours (Table) 04/21/18 00:29 Gram Stain - Final Sputum Sputum Culture - Final Pseudomonas aeruginosa Carm[place] albicans Assessment and Plan Plan: addendum , diagnosis: diagnosis should reflect acute kidney failure secondary to septic shock, ATN chronic steroids 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
--- NOTE | 2018-04-11 17:12 | P.PN ---
Subjective Progress Note Date: 04/11/18 (Critical care time spent 35 minutes) Principal diagnosis: Severe sepsis and septic shock associated with urinary tract infection, pulmonary sarcoidosis, severe morbid obesity, sleep disorder breathing and sleep apnea, uncontrolled hyperglycemia and type 2 diabetes mellitus, acute renal failure, chronic pain syndrome 04/11/2018, patient seen eval examined in ICU patient the continue to have issues associated aches and pain she remains a poor historian however does describe generalized pain throughout the body, patient has been nauseous as well a computed tomography scan of the abdominal and pelvis is being ordered, her lactic acid has improved with the fluid resuscitation, patient has been on broad-spectrum antibiotics I urine culture is positive for enterococcus Ammann labs from today reviewed sodium is 1:30 and production of 5.3 her BUN/ creatinine is 15 and 2.99, overall sodium remains stable hyperkalemia is present renal functions continued to be marginal liters lactic acid check was 1.9, chest x-ray remains stable PICC line site is stable borderline cardiomegaly , patient is getting broad-spectrum antibiotics with Vanco mycin, daptomycin and Zosyn patient is a getting therapy for the lower extremity cellulitis as well along with local care 47-year-old morbidly obese female who was seen evaluated examined in the ICU this patient has been a resident of [facility], patient has problems associated with chronic renal insufficiency, sarcoidosis severely morbidly obese was found to have blood pressure only 60s systolic at the [facility] EMS was notified it appears that blood pressure has been extremely fluctuating it was noted to be 90 by EMS however subsequently was in 150 patient was tachypneic and tachycardic as well no chest pain was present overall patient is a poor historian, patient was eventually admitted into the hospital from the emergency department Robert patient underwent a VQ scan with indeterminate findings, CT angiogram be performed due to elevated creatinine Amsonam patient has been using BiPAP off and on with a IPAP of 14 and EPAP of 5 and 35% oxygen, patient has been comfortable now she has a low urine output she is getting a fluid challenge of 500 mL crystalloid due to elevated lactic acid followed by 100 mL an hour patient is also on Solu-Cortef which is being switched to Solu-Medrol, currently patient is on bronchodilators and continuation of home medications, heparin for DVT prophylaxis, due to chronic hypertension patient is on midodrine along with broad-spectrum antibiotics along with Zosyn and vancomycin, urine is positive for group D enterococcus, other significant labs were noted to have a lactic acid of 5.8 came down to 3.2 , BUN/creatinine remains stable 40 and 2.93 much chest x-ray revealed cardiomegaly small left-sided pleural effusion with subsegmental atelectasis, patient was transferred to ICU for hypotension and low urine output and elevated lactic acid where she was seen evaluated examined Objective - Vital Signs Vital signs: Vital Signs Temp 97.7 F 04/11/18 16:00 Pulse 120 H 04/11/18 16:00 Resp 14 04/11/18 16:00 BP 118/77 04/11/18 16:00 Pulse Ox 96 04/11/18 16:00 Intake & Output 04/10/18 04/11/18 04/11/18 18:59 06:59 18:59 Intake Total 750 2048.5 1380 Output Total 126 115 375 Balance 624 1933.5 1005 Weight 166 kg 167.7 kg Intake: IV 600 1938.5 900 DAPTOmycin 600 mg In 50 Sodium Chloride 0.9% 50 ml @ 100 mls/hr IVPB Q48H [facility] Rx#:[id number] Piperacillin-Tazobactam 3 87.5 .375 gm In Dextrose/Water 1 50ml.bag @ 12.5 mls/hr IVPB Q8HR [facility] Rx#: [id number] Sodium Chloride 0.9% 1, 100 1300 900 000 ml @ 100 mls/hr IV . Q10H [facility] Rx#:[id number] Sodium Chloride 0.9% 500 500 ml 500 ml @ 500 mls/hr IV .Q1H [facility] Rx#:[id number] Vancomycin 2,250 mg In 501 Sodium Chloride 0.9% 500 ml 500 ml @ 167 mls/hr IVPB ONCE [facility] Rx#: [id number] Oral 150 110 480 Output: Urine 125 115 375 Stool 1 Other: Voiding Method Indwelling Catheter Indwelling Catheter Indwelling Catheter - Exam Gen: This is a morbidly obese 47-year-old [place] female. She is in bed and appears to be in no acute distress, patient sitting upright on the bed leaning backwards awake no obvious distress HEENT: Head is atraumatic, normocephalic. Pupils equal, round. Sclerae is anicteric. Hearing grossly normal. NECK: Supple. No JVD. No lymphadenopathy. No thyromegaly. LUNGS: Diminished bilaterally. Clear to auscultation. No wheezes or rhonchi. No intercostal retractions. HEART: Regular rate and rhythm. No murmur. ABDOMEN: Morbidly obese. Soft. Bowel sounds are present. No masses. No tenderness. EXTREMITIES: 2+ pedal edema. Chronic skin inflammatory changes early cellulitis cannot be excluded No calf tenderness. No redness. NEUROLOGICAL: Patient is awake, alert and oriented x2. Generalized weakness. - Labs CBC & Chem 7: 04/11/18 04:21 04/11/18 04:21 Labs: Abnormal Lab Results - Last 24 Hours (Table) 04/10/18 04/10/18 04/10/18 Range/Units 14:45 16:22 18:48 RBC (3.80-5.40) m/uL Hgb (11.4-16.0) gm/dL Hct (34.0-46.0) % RDW (11.5-15.5) % Sodium (137-145) mmol/L Potassium (3.5-5.1) mmol/L Carbon Dioxide (22-30) mmol/L Creatinine (0.52-1.04) mg/dL Glucose (74-99) mg/dL POC Glucose (mg/dL) (75-99) mg/dL Hemoglobin A1c 6.4 H (4.0-6.0) % Plasma Lactic Acid Andrey 3.2 H* (0.7-2.0) mmol/L Calcium (8.4-10.2) mg/dL Phosphorus (2.5-4.5) mg/dL Total Protein (PEP) 4.7 L (6.2-8.2) g/dL Albumin (PEP) 2.35 L (3.80-4.90) g/dL Gcjlg-0-Mjadgjfgu 0.64 H (0.10-0.40) g/dL Gbkmo-1-Xjpmhuvaz 0.56 L (0.60-1.00) g/dL Gamma Globulins 0.52 L (0.70-1.50) g/dL Complement C4 54.9 H (10.0-53.0) mg/dL 04/10/18 04/10/18 04/11/18 Range/Units 21:36 23:48 03:00 RBC (3.80-5.40) m/uL Hgb (11.4-16.0) gm/dL Hct (34.0-46.0) % RDW (11.5-15.5) % Sodium (137-145) mmol/L Potassium 5.4 H (3.5-5.1) mmol/L Carbon Dioxide (22-30) mmol/L Creatinine (0.52-1.04) mg/dL Glucose (74-99) mg/dL POC Glucose (mg/dL) 117 H (75-99) mg/dL Hemoglobin A1c (4.0-6.0) % Plasma Lactic Acid Andrey 2.1 H* (0.7-2.0) mmol/L Calcium (8.4-10.2) mg/dL Phosphorus (2.5-4.5) mg/dL Total Protein (PEP) (6.2-8.2) g/dL Albumin (PEP) (3.80-4.90) g/dL Fwkgv-9-Ksfgzvxpo (0.10-0.40) g/dL Jlpdk-0-Zrvzcuagb (0.60-1.00) g/dL Gamma Globulins (0.70-1.50) g/dL Complement C4 (10.0-53.0) mg/dL 04/11/18 04/11/18 04/11/18 Range/Units 04:21 04:21 07:22 RBC 3.17 L (3.80-5.40) m/uL Hgb 9.3 L (11.4-16.0) gm/dL Hct 30.1 L (34.0-46.0) % RDW 17.3 H (11.5-15.5) % Sodium 131 L (137-145) mmol/L Potassium 5.3 H (3.5-5.1) mmol/L Carbon Dioxide 21 L (22-30) mmol/L Creatinine 2.99 H (0.52-1.04) mg/dL Glucose 119 H (74-99) mg/dL POC Glucose (mg/dL) 134 H (75-99) mg/dL Hemoglobin A1c (4.0-6.0) % Plasma Lactic Acid Andrey (0.7-2.0) mmol/L Calcium 8.2 L (8.4-10.2) mg/dL Phosphorus 4.8 H (2.5-4.5) mg/dL Total Protein (PEP) (6.2-8.2) g/dL Albumin (PEP) (3.80-4.90) g/dL Lsoez-7-Jidyonlqg (0.10-0.40) g/dL Jldbp-6-Xbaknrkow (0.60-1.00) g/dL Gamma Globulins (0.70-1.50) g/dL Complement C4 (10.0-53.0) mg/dL 04/11/18 04/11/18 Range/Units 08:51 11:58 RBC (3.80-5.40) m/uL Hgb (11.4-16.0) gm/dL Hct (34.0-46.0) % RDW (11.5-15.5) % Sodium (137-145) mmol/L Potassium (3.5-5.1) mmol/L Carbon Dioxide (22-30) mmol/L Creatinine (0.52-1.04) mg/dL Glucose (74-99) mg/dL POC Glucose (mg/dL) 124 H 151 H (75-99) mg/dL Hemoglobin A1c (4.0-6.0) % Plasma Lactic Acid Andrey (0.7-2.0) mmol/L Calcium (8.4-10.2) mg/dL Phosphorus (2.5-4.5) mg/dL Total Protein (PEP) (6.2-8.2) g/dL Albumin (PEP) (3.80-4.90) g/dL Qlmsw-4-Cqctgdboi (0.10-0.40) g/dL Ciyum-0-Mgtmluhlt (0.60-1.00) g/dL Gamma Globulins (0.70-1.50) g/dL Complement C4 (10.0-53.0) mg/dL Microbiology - Last 24 Hours (Table) 04/09/18 18:18 Urine Culture - Preliminary Urine,Catheterized Group D Enterococcus Assessment and Plan Assessment: Severe sepsis and septic shock related to enterococcus urinary tract infection with some complaint component from cellulitis of the both lower extremity Developing cellulitis of the both lower extremity Elevated lactic acid/metabolic acidosis multifactorial associated with acute on chronic renal failure, urinary tract infection Pulmonary sarcoidosis with possible left lower lobe pneumonia Small left-sided pleural effusion Dehydration associated with intravascular volume depletion patient is undergoing crystalloid challenge Severe morbid obesity and obstructive sleep apnea Chronic renal failure stage IV Plan: Gentle rehydration Fluid bolus with crystalloid as needed and tolerated Continue broad-spectrum antibiotics Ammann adjusted accordingly DVT and peptic ulcer disease prophylaxis IV steroids Monitor labs and radiographic studies ordered for tomorrow, further recommendations pending plan of care as per clinical response of the patient Time with Patient: Greater than 30
[2018-04-11 17:14] LABS: Glucose,Whole Blood 144 mg/dL (75-99)
--- NOTE | 2018-04-11 18:42 | CT ---
EXAMINATION TYPE: CT abdomen pelvis wo con DATE OF EXAM: 04/11/2018 COMPARISON: 02/03/2018 HISTORY: Pain with nausea and vomiting CT DLP: 1981.9 mGycm. Automated exposure control for dose reduction was used. TECHNIQUE: Helical acquisition of images was performed from the lung bases through the pelvis. FINDINGS: There is patient motion artifact obscuring anatomic visualization to at least a mild degree. LUNG BASES: No significant abnormality is appreciated. LIVER/GB: No significant abnormality is appreciated. PANCREAS: No significant abnormality is seen. SPLEEN: No significant abnormality is seen. ADRENALS: No significant abnormality is seen. KIDNEYS: No significant abnormality is seen. PERITONEAL CAVITY: No pneumatosis. No fluid. RETROPERITONEAL ADENOPATHY: None visualized REPRODUCTIVE ORGANS: No significant abnormality is seen URINARY BLADDER: No significant abnormality is seen. PELVIC ADENOPATHY: None visualized. OSSEOUS STRUCTURES: Interval vacuum disc phenomena noted at the lumbosacral junction; the vertebral body endplates are intact, and there are no associated paraspinal soft tissue abnormalities. BOWEL: No significant abnormality is seen. OTHER: The soft tissues are prominent. IMPRESSION: 1) NO DEFINITE ACUTE CT PROCESS. 2) HOWEVER, NEW VACUUM DISC PHENOMENON AT THE LUMBOSACRAL JUNCTION IS NOTED; CLINICAL EXCLUSION OF I NFECTION IS REQUESTED.
[2018-04-11] MEDS ORDERED: PIPERACILLIN-TAZOBACTAM 3.375 GM in DEXTROSE/WATER 1 50ML.BAG IVPB SCH (20:00)
[2018-04-11 21:26] LABS: Glucose,Whole Blood 146 mg/dL (75-99)
[2018-04-11] MEDS: GABAPENTIN 300 MG CAP PO SCH (21:52)
--- NOTE | 2018-04-11 23:25 | PN ---
PROGRESS NOTE DATE OF SERVICE: 04/11/2018 REASON FOR FOLLOWUP: 1. Sepsis. Source is urinary. 2. Bilateral groin area cutaneous candidiasis. 3. Left arm wound. INTERVAL HISTORY: The patient is afebrile. She seems to be more awake and alert, hemodynamically more stable. Blood pressure around 120s. She is feeling weak and tired; no energy. No chest pain or abdominal pain and no diarrhea. PHYSICAL EXAMINATION: Blood pressure 118/77 with a pulse of 120, temperature 97.7. She is 96% General description is a middle-aged female lying in bed in no distress. RESPIRATORY SYSTEM: Unlabored breathing. Clear to auscultation anteriorly. HEART: S1, S2. Regular rate and rhythm. ABDOMEN: Soft. No tenderness. Bilateral extremities with 3+ edema of feet. She did have evidence of bilateral groin area cutaneous candidiasis in abdominal fold areas with a wound on the left upper arm with no cellulitis. LABS: Hemoglobin 9.3, white count 8.6 with a BUN of 15, creatinine 2.99. Urine with group D Enterococcus. Blood cultures currently pending. DIAGNOSTIC IMPRESSION AND PLAN: 1. Patient admitted to hospital with hypotension, weakness, which is likely multifactorial in this patient with a possible component of urinary tract infection and urosepsis. Urine is showing Enterococcus. With a previous history of VRE, it could be the same pathogen. Patient is currently covered with daptomycin. That will be continued while waiting for the final ID of this pathogen. 2. Patient with bilateral groin area cutaneous candidiasis and some abdominal fold candidiasis. Will request nystatin powder. No need for cream. 3. Left upper arm wound. Local care with Aquacel Silver dressing. No need for Santyl, which should be discontinued. Continue with supportive care. MMODL / IJN: [id number] /
[2018-04-12] MEDS: methylPREDNISolone SOD SUCCI 125 MG/2 ML VIAL IV SCH ×5 (01:05→23:19)
[2018-04-12] MEDS: HEPARIN SODIUM,PORCINE 5,000 UNIT/ML 1 ML VIAL SQ SCH ×4 (01:05→23:19)
[2018-04-12] MEDS: SODIUM CHLORIDE 0.9% 1,000 ML IV SCH ×3 (01:06→21:37)
[2018-04-12] MEDS: PIPERACILLIN-TAZOBACTAM 3.375 GM in DEXTROSE/WATER 1 50ML.BAG IVPB SCH ×3 (01:12→17:49)
[2018-04-12] MEDS: IPRATROPIUM-ALBUTEROL 3 ML NEB INHALATION PRN (01:18)
[2018-04-12] MEDS: ALBUTEROL NEBULIZED 2.5 MG/3 ML INHALATION SCH ×4 (01:18→20:15)
[2018-04-12 05:54] LABS: Anisocytosis Slight; HCT 29.2 % (34.0-46.0); Hypochromasia Slight; MCH 29.4 pg (25.0-35.0); MCHC 30.9 g/dL (31.0-37.0); MCV 95.3 fL (80.0-100.0); Macrocytosis Slight; Platelet Count 259 k/uL (150-450); RBC 3.06 m/uL (3.80-5.40); RDW 17.7 % (11.5-15.5)
[2018-04-12 06:12] LABS: Albumin 2.5 g/dL (3.5-5.0); Calcium 7.9 mg/dL (8.4-10.2); Magnesium 1.8 mg/dL (1.6-2.3); Potassium 4.7 mmol/L (3.5-5.1); Total Bilirubin 1.1 mg/dL (0.2-1.3); Total Protein 5.1 g/dL (6.3-8.2)
[2018-04-12] MEDS: INSULIN ASPART 100 UNIT/ML 1 ML 10 ML VIAL SQ SCH ×4 (07:09→21:05)
[2018-04-12 07:17] LABS: Glucose,Whole Blood 112 mg/dL (75-99)
[2018-04-12 07:22] LABS: Band Neutrophils % 2 %; Lymphocytes # (M) 1.58 k/uL (1.0-4.8); Metamyelocytes # (M) 0.08 k/uL (0); Metamyelocytes % 1 %; Monocytes # (M) 0.23 k/uL (0-1.0); Myelocytes # (M) 0.15 k/uL (0); Myelocytes % 2 %; Neutrophils % (M) 72 %; Nucleated Red Blood Cells 5 /100 WBC (0-0); Total Cells Counted 200; WBC 7.5 k/uL (3.8-10.6)
[2018-04-12 07:24] LABS: Polychromasia Present; Target Cells Present
[2018-04-12 07:41] LABS: Glucose,Whole Blood 103 mg/dL (75-99)
[2018-04-12] MEDS: FLUTICASONE 110 MCG INHALER INHALATION SCH ×2 (08:14→20:37)
--- NOTE | 2018-04-12 09:30 | XR ---
EXAMINATION TYPE: XR chest 1V DATE OF EXAM: 04/12/2018 COMPARISON: 04/11/2018 HISTORY: Shortness of breath TECHNIQUE: Single frontal view of the chest is obtained. FINDINGS: The heart is enlarged. There is a right-sided PICC line. There is no overt failure. There is biapical pleural thickening. No interstitial edema. IMPRESSION: Stable cardiomegaly
[2018-04-12] MEDS: DULoxetine HCL 30 MG CAPSULE.DR PO SCH ×2 (09:46→21:36)
[2018-04-12] MEDS: FAMOTIDINE 20 MG TAB PO SCH (09:46)
[2018-04-12] MEDS: BETHANECHOL 25 MG TAB PO SCH ×4 (09:46→21:36)
[2018-04-12] MEDS: SODIUM BICARBONATE TAB 650 MG TAB PO SCH ×3 (09:46→21:36)
[2018-04-12] MEDS: MIDODRINE 5 MG TAB PO SCH ×2 (10:02→12:15)
[2018-04-12] MEDS: METHADONE 10 MG TAB PO SCH (10:15)
[2018-04-12] MEDS: NYSTATIN 100,000 UNIT/GM POWD 15 GM TOPICAL SCH ×2 (10:28→21:38)
[2018-04-12] MEDS: PETROLATUM, WHITE OINT 50 GM TUBE TOPICAL SCH ×2 (10:28→21:39)
[2018-04-12] MEDS: CLOTRIMAZOLE/BETAMETH 1-0.05% CREAM 45 GM TUBE TOPICAL SCH ×2 (10:29→21:38)
[2018-04-12] MEDS: ZINC OXIDE 20% OINT 28.4 GM TUBE TOPICAL SCH ×4 (10:29→21:39)
[2018-04-12] MEDS ORDERED: FUROSEMIDE 10 MG/ML 4 ML VIAL IV STA (11:11)
--- NOTE | 2018-04-12 11:30 | P.PN ---
Subjective Patient is seen in follow for acute kidney injury. Her baseline creatinine is 1. It is up to 3.36 today. Patient presented to the hospital due to hypotension with systolic blood pressure in the 60s at the [facility]. Patient was transferred to the ICU with persistent hypotension and lactic acidosis. She is currently maintained on normal saline at 100 mL an hour. She was also started on IV steroids. Cortisol level normal. Oral intake is poor. Urine output does improve with IV Lasix but then drops down to 15-20 mL an hour. Vital signs are stable. General: The patient appeared well nourished and normally developed. HEENT: Head exam is unremarkable. Neck is without jugular venous distension. On BiPAP. LUNGS: Breath sounds decreased. HEART: Rate and Rhythm are regular. First and second heart sounds normal. No murmurs, rubs or gallops. ABDOMEN: Abdominal exam reveals normal bowel sounds. Non-tender and non- distended. No evidence of peritonitis. EXTREMITITES: 2+ edema. Objective - Vital Signs Vital signs: Vital Signs Temp 98.4 F 04/12/18 08:00 Pulse 120 H 04/12/18 11:00 Resp 12 04/12/18 11:00 BP 112/80 04/12/18 11:00 Pulse Ox 99 04/12/18 11:00 Intake & Output 04/11/18 04/12/18 04/12/18 18:59 06:59 18:59 Intake Total 1640 1325.0 100 Output Total 616 185 10 Balance 1024 1140.0 90 Weight 171.1 kg Intake: IV 1100 1275.0 100 Piperacillin-Tazobactam 3 75.0 .375 gm In Dextrose/Water 1 50ml.bag @ 12.5 mls/hr IVPB Q8HR [facility] Rx#: [id number] Sodium Chloride 0.9% 1, 1100 1200 100 000 ml @ 100 mls/hr IV . Q10H [facility] Rx#:[id number] Oral 540 50 Output: Urine 415 185 10 Stool 1 Emesis 200 Other: Voiding Method Indwelling Catheter Indwelling Catheter - Labs CBC & Chem 7: 04/12/18 05:30 04/12/18 05:30 Labs: Abnormal Lab Results - Last 24 Hours (Table) 04/10/18 04/11/18 04/11/18 Range/Units 14:45 11:58 17:02 RBC (3.80-5.40) m/uL Hgb (11.4-16.0) gm/dL Hct (34.0-46.0) % MCHC (31.0-37.0) g/dL RDW (11.5-15.5) % Metamyelocytes # (Man) (0) k/uL Myelocytes # (Manual) (0) k/uL Nucleated RBCs (0-0) /100 WBC Sodium (137-145) mmol/L Carbon Dioxide (22-30) mmol/L Creatinine (0.52-1.04) mg/dL Glucose (74-99) mg/dL POC Glucose (mg/dL) 151 H 144 H (75-99) mg/dL Calcium (8.4-10.2) mg/dL Phosphorus (2.5-4.5) mg/dL AST (14-36) U/L Alkaline Phosphatase (38-126) U/L Total Protein (6.3-8.2) g/dL Albumin (3.5-5.0) g/dL Albumin (PEP) 2.35 L (3.80-4.90) g/dL Ubgbz-5-Veujohmpc 0.64 H (0.10-0.40) g/dL Gzkqr-4-Wbvlcxtea 0.56 L (0.60-1.00) g/dL Gamma Globulins 0.52 L (0.70-1.50) g/dL Complement C4 54.9 H (10.0-53.0) mg/dL 04/11/18 04/12/18 04/12/18 Range/Units 21:15 05:30 05:30 RBC 3.06 L (3.80-5.40) m/uL Hgb 9.0 L (11.4-16.0) gm/dL Hct 29.2 L (34.0-46.0) % MCHC 30.9 L (31.0-37.0) g/dL RDW 17.7 H (11.5-15.5) % Metamyelocytes # (Man) 0.08 H (0) k/uL Myelocytes # (Manual) 0.15 H (0) k/uL Nucleated RBCs 5 H (0-0) /100 WBC Sodium 136 L (137-145) mmol/L Carbon Dioxide 18 L (22-30) mmol/L Creatinine 3.36 H (0.52-1.04) mg/dL Glucose 106 H (74-99) mg/dL POC Glucose (mg/dL) 146 H (75-99) mg/dL Calcium 7.9 L (8.4-10.2) mg/dL Phosphorus 5.0 H (2.5-4.5) mg/dL AST 66 H (14-36) U/L Alkaline Phosphatase 261 H (38-126) U/L Total Protein 5.1 L (6.3-8.2) g/dL Albumin 2.5 L (3.5-5.0) g/dL Albumin (PEP) (3.80-4.90) g/dL Tbrcb-9-Lghssodbp (0.10-0.40) g/dL Tjexm-6-Oczktgaoz (0.60-1.00) g/dL Gamma Globulins (0.70-1.50) g/dL Complement C4 (10.0-53.0) mg/dL 04/12/18 04/12/18 Range/Units 07:05 07:30 RBC (3.80-5.40) m/uL Hgb (11.4-16.0) gm/dL Hct (34.0-46.0) % MCHC (31.0-37.0) g/dL RDW (11.5-15.5) % Metamyelocytes # (Man) (0) k/uL Myelocytes # (Manual) (0) k/uL Nucleated RBCs (0-0) /100 WBC Sodium (137-145) mmol/L Carbon Dioxide (22-30) mmol/L Creatinine (0.52-1.04) mg/dL Glucose (74-99) mg/dL POC Glucose (mg/dL) 112 H 103 H (75-99) mg/dL Calcium (8.4-10.2) mg/dL Phosphorus (2.5-4.5) mg/dL AST (14-36) U/L Alkaline Phosphatase (38-126) U/L Total Protein (6.3-8.2) g/dL Albumin (3.5-5.0) g/dL Albumin (PEP) (3.80-4.90) g/dL Uyyyq-1-Njoxpuliz (0.10-0.40) g/dL Efazj-8-Onlcstgvb (0.60-1.00) g/dL Gamma Globulins (0.70-1.50) g/dL Complement C4 (10.0-53.0) mg/dL Microbiology - Last 24 Hours (Table) 04/09/18 18:18 Urine Culture - Final Urine,Catheterized Enterococcus faecium VRE Assessment and Plan Plan: Assessment: 1. Acute kidney injury secondary to ATN secondary to hypotension. Creatinine up to 3.36 today. Baseline creatinine near 1. No hydronephrosis noted on renal ultrasound. She is noted to have sub-nephrotic proteinuria. 2. Proteinuria. Her albumin is also low. UPC 0.5. Rule out GN. Serologies negative. Urine eosinophils negative. 3. Metabolic acidosis secondary to acute kidney injury and IV fluids. 4. Edema. 5. Hypotension. This is due to to sepsis. Cortisol level normal. 6. Diabetes mellitus. Patient states this was diagnosed within the last 1 year. 7. UTI with urine culture positive for VRE. Infectious disease following. Vancomycin discontinued. 8. Hyperkalemia. This is due to acute kidney injury and metabolic acidosis. Potassium supplementation discontinued. 9. Hyponatremia secondary to acute kidney injury. Better. Plan: Lasix 40 mg IV once now. Strict I's and O's. Maintain oral sodium bicarbonate supplementation - increase dose. Avoid nephrotoxins. Wean IV fluids if blood pressure remains stable. Patient is quite edematous. If no improvement in renal function over the next few days, will consider kidney biopsy when she is more stable. No urgent need for any replacement therapy at this time. Patient is agreeable to start [employer] if needed.
[2018-04-12 11:48] LABS: Glucose,Whole Blood 111 mg/dL (75-99)
--- NOTE | 2018-04-12 13:52 | US ---
EXAMINATION TYPE: US abdomen limited DATE OF EXAM: 04/12/2018 COMPARISON: CT 04/11/2018 CLINICAL HISTORY: elevated LFT, multiorgan sarcoid involvement. Difficult and limited exam due to pat ient body habitus- 377lbs EXAM MEASUREMENTS: Liver Length: 21.7 cm Gallbladder Wall: 0.2 cm CBD: 0.3 cm Right Kidney: 11.2 x 3.4 x 4.3 cm Pancreas: Obscured by bowel gas Liver: Enlarged, heterogeneous echotexture Gallbladder: Ringdown artifact visualized along gallbladder wall Evidence for sonographic Cosme's sign: No CBD: wnl as visualized Right Kidney: No hydronephrosis or masses seen IMPRESSION: 1. Hepatomegaly correlate for hepatic steatosis, diffuse hepatocellular disease, or hepatitis. 2. There is ringdown artifact involving the gallbladder wall which can occasionally be seen with alicia omyomatosis (hyperplastic cholecystosis).
--- NOTE | 2018-04-12 14:18 | P.PN ---
Subjective Progress Note Date: 04/12/18 (Critical care time spent 35 minutes) Principal diagnosis: Severe sepsis and septic shock associated with urinary tract infection, pulmonary sarcoidosis, severe morbid obesity, sleep disorder breathing and sleep apnea, uncontrolled hyperglycemia and type 2 diabetes mellitus, acute renal failure, chronic pain syndrome 04/12/2018, patient seen eval examined during the rounds clinically patient is doing better in terms of hemodynamics but remains intermittently tachycardic which is not much change from baseline blood pressure has been stable, patient did not use her BiPAP machine last night, has been more somnolent she is lethargic but readily arousable, she does answer in simple words, moving all 4 extremities, she was noted to have snoring as well as apneic events, family is present at bedside and have discussed with them at length about importance of using the BiPAP machine each night and when necessary during the day will put the BiPAP again with a setting of 14/5 with 35% oxygen, potassium is up slightly urine culture is positive for Enterococcus faecium/VRE, patient is on daptomycin and Zosyn, IV fluids are 100 mL an hour, BUN/creatinine slightly up and baseline 04/11/2018, patient seen eval examined in ICU patient the continue to have issues associated aches and pain she remains a poor historian however does describe generalized pain throughout the body, patient has been nauseous as well a computed tomography scan of the abdominal and pelvis is being ordered, her lactic acid has improved with the fluid resuscitation, patient has been on broad-spectrum antibiotics I urine culture is positive for enterococcus Ammann labs from today reviewed sodium is 1:30 and production of 5.3 her BUN/ creatinine is 15 and 2.99, overall sodium remains stable hyperkalemia is present renal functions continued to be marginal liters lactic acid check was 1.9, chest x-ray remains stable PICC line site is stable borderline cardiomegaly , patient is getting broad-spectrum antibiotics with Vanco mycin, daptomycin and Zosyn patient is a getting therapy for the lower extremity cellulitis as well along with local care 47-year-old morbidly obese female who was seen evaluated examined in the ICU this patient has been a resident of [facility], patient has problems associated with chronic renal insufficiency, sarcoidosis severely morbidly obese was found to have blood pressure only 60s systolic at the [facility] EMS was notified it appears that blood pressure has been extremely fluctuating it was noted to be 90 by EMS however subsequently was in 150 patient was tachypneic and tachycardic as well no chest pain was present overall patient is a poor historian, patient was eventually admitted into the hospital from the emergency department [place] patient underwent a VQ scan with indeterminate findings, CT angiogram be performed due to elevated creatinine [place] patient has been using BiPAP off and on with a IPAP of 14 and EPAP of 5 and 35% oxygen, patient has been comfortable now she has a low urine output she is getting a fluid challenge of 500 mL crystalloid due to elevated lactic acid followed by 100 mL an hour patient is also on Solu-Cortef which is being switched to Solu-Medrol, currently patient is on bronchodilators and continuation of home medications, heparin for DVT prophylaxis, due to chronic hypertension patient is on midodrine along with broad-spectrum antibiotics along with Zosyn and vancomycin, urine is positive for group D enterococcus, other significant labs were noted to have a lactic acid of 5.8 came down to 3.2 , BUN/creatinine remains stable 40 and 2.93 much chest x-ray revealed cardiomegaly small left-sided pleural effusion with subsegmental atelectasis, patient was transferred to ICU for hypotension and low urine output and elevated lactic acid where she was seen evaluated examined Objective - Vital Signs Vital signs: Vital Signs Temp 98.0 F 04/12/18 12:00 Pulse 115 H 04/12/18 13:10 Resp 18 04/12/18 13:00 BP 125/88 04/12/18 13:00 Pulse Ox 100 04/12/18 13:00 Intake & Output 04/11/18 04/12/18 04/12/18 18:59 06:59 18:59 Intake Total 1640 1325.0 600 Output Total 616 185 96 Balance 1024 1140.0 504 Weight 171.1 kg 171.1 kg Intake: IV 1100 1275.0 600 Piperacillin-Tazobactam 3 75.0 .375 gm In Dextrose/Water 1 50ml.bag @ 12.5 mls/hr IVPB Q8HR [facility] Rx#: [id number] Sodium Chloride 0.9% 1, 1100 1200 600 000 ml @ 100 mls/hr IV . Q10H [facility] Rx#:[id number] Oral 540 50 Output: Urine 415 185 96 Stool 1 Emesis 200 Other: Voiding Method Indwelling Catheter Indwelling Catheter Indwelling Catheter - Exam Gen: This is a morbidly obese 47-year-old [place] Citizen [place] female. She is in bed and appears to be in no acute distress, patient sitting upright on the bed leaning backwards awake no obvious distress HEENT: Head is atraumatic, normocephalic. Pupils equal, round. Sclerae is anicteric. Hearing grossly normal. NECK: Supple. No JVD. No lymphadenopathy. No thyromegaly. LUNGS: Diminished bilaterally. Clear to auscultation. No wheezes or rhonchi. No intercostal retractions. HEART: Regular rate and rhythm. No murmur. ABDOMEN: Morbidly obese. Soft. Bowel sounds are present. No masses. No tenderness. EXTREMITIES: 2+ pedal edema. Chronic skin inflammatory changes early cellulitis cannot be excluded No calf tenderness. No redness. NEUROLOGICAL: Patient is awake, alert and oriented x2. Generalized weakness. - Labs CBC & Chem 7: 04/12/18 05:30 04/12/18 05:30 Labs: Abnormal Lab Results - Last 24 Hours (Table) 04/10/18 04/11/18 04/11/18 Range/Units 14:45 17:02 21:15 RBC (3.80-5.40) m/uL Hgb (11.4-16.0) gm/dL Hct (34.0-46.0) % MCHC (31.0-37.0) g/dL RDW (11.5-15.5) % Metamyelocytes # (Man) (0) k/uL Myelocytes # (Manual) (0) k/uL Nucleated RBCs (0-0) /100 WBC Sodium (137-145) mmol/L Carbon Dioxide (22-30) mmol/L Creatinine (0.52-1.04) mg/dL Glucose (74-99) mg/dL POC Glucose (mg/dL) 144 H 146 H (75-99) mg/dL Calcium (8.4-10.2) mg/dL Phosphorus (2.5-4.5) mg/dL AST (14-36) U/L Alkaline Phosphatase (38-126) U/L Total Protein (6.3-8.2) g/dL Albumin (3.5-5.0) g/dL Albumin (PEP) 2.35 L (3.80-4.90) g/dL Lqdfq-5-Pftlmxqbs 0.64 H (0.10-0.40) g/dL Imnfy-0-Wolcslxhx 0.56 L (0.60-1.00) g/dL Gamma Globulins 0.52 L (0.70-1.50) g/dL 04/12/18 04/12/18 04/12/18 Range/Units 05:30 05:30 07:05 RBC 3.06 L (3.80-5.40) m/uL Hgb 9.0 L (11.4-16.0) gm/dL Hct 29.2 L (34.0-46.0) % MCHC 30.9 L (31.0-37.0) g/dL RDW 17.7 H (11.5-15.5) % Metamyelocytes # (Man) 0.08 H (0) k/uL Myelocytes # (Manual) 0.15 H (0) k/uL Nucleated RBCs 5 H (0-0) /100 WBC Sodium 136 L (137-145) mmol/L Carbon Dioxide 18 L (22-30) mmol/L Creatinine 3.36 H (0.52-1.04) mg/dL Glucose 106 H (74-99) mg/dL POC Glucose (mg/dL) 112 H (75-99) mg/dL Calcium 7.9 L (8.4-10.2) mg/dL Phosphorus 5.0 H (2.5-4.5) mg/dL AST 66 H (14-36) U/L Alkaline Phosphatase 261 H (38-126) U/L Total Protein 5.1 L (6.3-8.2) g/dL Albumin 2.5 L (3.5-5.0) g/dL Albumin (PEP) (3.80-4.90) g/dL Fbfln-5-Xmtbawwfj (0.10-0.40) g/dL Mfxzu-9-Bthbsedxi (0.60-1.00) g/dL Gamma Globulins (0.70-1.50) g/dL 04/12/18 04/12/18 Range/Units 07:30 11:36 RBC (3.80-5.40) m/uL Hgb (11.4-16.0) gm/dL Hct (34.0-46.0) % MCHC (31.0-37.0) g/dL RDW (11.5-15.5) % Metamyelocytes # (Man) (0) k/uL Myelocytes # (Manual) (0) k/uL Nucleated RBCs (0-0) /100 WBC Sodium (137-145) mmol/L Carbon Dioxide (22-30) mmol/L Creatinine (0.52-1.04) mg/dL Glucose (74-99) mg/dL POC Glucose (mg/dL) 103 H 111 H (75-99) mg/dL Calcium (8.4-10.2) mg/dL Phosphorus (2.5-4.5) mg/dL AST (14-36) U/L Alkaline Phosphatase (38-126) U/L Total Protein (6.3-8.2) g/dL Albumin (3.5-5.0) g/dL Albumin (PEP) (3.80-4.90) g/dL Rdfzg-4-Tkazhkmmh (0.10-0.40) g/dL Znicw-3-Wdvqlmhbl (0.60-1.00) g/dL Gamma Globulins (0.70-1.50) g/dL Microbiology - Last 24 Hours (Table) 04/09/18 18:18 Urine Culture - Final Urine,Catheterized Enterococcus faecium VRE Assessment and Plan Assessment: Acute hypoxic and hypercapnic respiratory failure Severe sepsis and septic shock related to enterococcus urinary tract infection with some complaint component from cellulitis of the both lower extremity Developing cellulitis of the both lower extremity Elevated lactic acid/metabolic acidosis multifactorial associated with acute on chronic renal failure, urinary tract infection Pulmonary sarcoidosis with possible left lower lobe pneumonia Small left-sided pleural effusion Dehydration associated with intravascular volume depletion patient is undergoing crystalloid challenge Severe morbid obesity and obstructive sleep apnea Chronic renal failure stage IV Plan: Continue BiPAP he is night and when necessary during the day Will reinitiate BiPAP right now, we'll keep patient in ICU Gentle rehydration Fluid bolus with crystalloid as needed and tolerated Continue broad-spectrum antibiotics Ammann adjusted accordingly DVT and peptic ulcer disease prophylaxis IV steroids Monitor labs and radiographic studies ordered for tomorrow, further recommendations pending plan of care as per clinical response of the patient Time with Patient: Greater than 30
--- NOTE | 2018-04-12 15:25 | P.PN ---
Subjective Progress Note Date: 04/12/18 This is 47 years old female with past medical history significant for sarcoidosis, morbid obesity, diabetes mellitus and multiple comorbidities, residence of prison who was recently discharged from [facility] presents today from prison with hypotension, slight tachycardia and hypoxia. In the emergency department blood pressure was below 90/60, heart rate in the 110 area, oxygen was in the mid 80s patient was started on oxygen and blood work showed elevated creatinine patient was sent to VQ scan which showed intermediate probability with limited examination due to motion factor and patient was started on heparin drip for assumption of pulmonary embolism. Patient is poor historian and unable to provide detailed information and was refusing care per nursing staff since admission to the floor including her medication and using her BiPAP on an as-needed basis. Patient currently is denying chest pain, shortness breath, nausea, vomiting, abdominal pain or productive cough 04/10: Received call today from the nursing staff the patient was really sick, blood pressure was low and was lethargic and sleeping well on BiPAP most the morning and lactic acid was elevated at 5.8 last evening.. She was unable to take her medications or eat this morning. She has increased edema. Patient has only had 150 mL of urine output overnight. She does have a Lopez catheter in. There was no IV access. Patient has been seen by by nephrology and cortisol level ordered along with Solu-Cortef and Lasix 60 mg IV once. Prednisone was discontinued. Patient was transferred into the intensive care unit and consult requested with Dr. Robin for intensive care management. Methadone dose changed to 50 mg daily which is her current dose at [facility]. Diarrhea has resolved. 04/11: Repeat chest x-ray reveals stable cardiomegaly. PICC placement. Patient has been seen by Dr. Colon and vancomycin and daptomycin started, continue Zosyn. Santyl to lower extremity cellulitis. Patient has been seen by Dr. Robin with concern for possible left lower lobe pneumonia, small left pleural effusion and dehydration. This morning, Dr. Moran ordered Lasix 40 mg IV once , IV dextrose 50% and regular insulin. Cortisol level was normal. Steroids are Solu-Medrol 60 mg every 6 hours. Midodrine was started yesterday for blood pressure support. Blood pressure is much improved today. Hemoglobin is 9.3, sodium 131 and potassium 5.3, creatinine 2.99. Capillary blood glucose running between 117 and 134. Lactic acid is now down to 1.9. Vancomycin level 25.6. Patient has been hemodynamically stable, afebrile. Patient has been on BiPAP and this morning is on nasal cannula, she remains lethargic but more alert from yesterday. Lopez catheter is in place. She continues to have lower extremity edema and now with weeping. No diarrhea. Patient has not had a bowel movement since 04/10. Urine output has been adequate at 50 mL per hour for the past 4 hours. She is complaining of nausea and abdominal discomfort for which lipase and CAT scan of the abdomen and pelvis ordered with oral contrast only. 04/12: Patient remains in intensive care unit. She has been hemodynamically stable and Midodrine will be discontinued. Lopez catheter remains in place with good urine output. She had a large bowel movement last evening and a small soft bowel movement today. Creatinine is 3.36 and BUN 17.. Heart rates have been elevated. Patient is more alert today from yesterday. Review Of Systems: Constitutional: No fever, no chills, no night sweats. +weakness, +fatigue, + lethargy. + daytime sleepiness. EENT: No headache. No epistaxis. No sore throat. Lungs: + shortness of breath, + cough, no sputum production. No wheezing. Cardiovascular: No chest pain, + lower extremity edema. No palpitations. No paroxysmal nocturnal dyspnea. No orthopnea. No lightheadedness or dizziness. No syncopal episodes. Abdominal: no abdominal pain. No nausea, vomiting. No diarrhea. No constipation. No bloody or tarry stools. + loss of appetite. Genitourinary: No dysuria, increased frequency, urgency. + urinary retention. Musculoskeletal: + myalgias. + muscle weakness, + gait dysfunction. Integumentary: No rash or pruritus. + wheeping lower legs Neurological: no mental status change. Endocrine: No abnormal blood sugars. Objective - Vital Signs Vital signs: Vital Signs Temp 98.4 F 04/12/18 08:00 Pulse 120 H 04/12/18 11:00 Resp 12 04/12/18 11:00 BP 112/80 04/12/18 11:00 Pulse Ox 99 04/12/18 11:00 Intake & Output 04/11/18 04/12/18 04/12/18 18:59 06:59 18:59 Intake Total 1640 1325.0 400 Output Total 616 185 65 Balance 1024 1140.0 335 Weight 171.1 kg Intake: IV 1100 1275.0 400 Piperacillin-Tazobactam 3 75.0 .375 gm In Dextrose/Water 1 50ml.bag @ 12.5 mls/hr IVPB Q8HR [facility]IE Rx#: [id number] Sodium Chloride 0.9% 1, 1100 1200 400 000 ml @ 100 mls/hr IV . Q10H LESLIE Rx#:[id number] Oral 540 50 Output: Urine 415 185 65 Stool 1 Emesis 200 Other: Voiding Method Indwelling Catheter Indwelling Catheter - Exam Gen: This is a morbidly obese 47-year-old [place] Citizen [place] female. She is in ICU bed and appears to be in no acute distress HEENT: Head is atraumatic, normocephalic. Pupils equal, round. Sclerae is anicteric. Hearing grossly normal. NECK: Supple. No JVD. No lymphadenopathy. No thyromegaly. LUNGS: Diminished bilaterally. Clear to auscultation. No wheezes or rhonchi. No intercostal retractions. HEART: Regular rate and rhythm. No murmur. ABDOMEN: Morbidly obese. Soft. Bowel sounds are present. No masses. Positive epigastric tenderness. Lopez catheter draining clear benjy urine. EXTREMITIES: 2+ pedal edema with serous weeping. No calf tenderness. NEUROLOGICAL: Patient is awake, alert and oriented x2. Generalized weakness. - Labs CBC & Chem 7: 04/12/18 05:30 04/12/18 05:30 Labs: Abnormal Lab Results - Last 24 Hours (Table) 04/10/18 04/11/18 04/11/18 Range/Units 14:45 11:58 17:02 RBC (3.80-5.40) m/uL Hgb (11.4-16.0) gm/dL Hct (34.0-46.0) % MCHC (31.0-37.0) g/dL RDW (11.5-15.5) % Metamyelocytes # (Man) (0) k/uL Myelocytes # (Manual) (0) k/uL Nucleated RBCs (0-0) /100 WBC Sodium (137-145) mmol/L Carbon Dioxide (22-30) mmol/L Creatinine (0.52-1.04) mg/dL Glucose (74-99) mg/dL POC Glucose (mg/dL) 151 H 144 H (75-99) mg/dL Calcium (8.4-10.2) mg/dL Phosphorus (2.5-4.5) mg/dL AST (14-36) U/L Alkaline Phosphatase (38-126) U/L Total Protein (6.3-8.2) g/dL Albumin (3.5-5.0) g/dL Albumin (PEP) 2.35 L (3.80-4.90) g/dL Cpxyf-0-Idtzzbxik 0.64 H (0.10-0.40) g/dL Ymnxs-1-Ivxfbzoai 0.56 L (0.60-1.00) g/dL Gamma Globulins 0.52 L (0.70-1.50) g/dL Complement C4 54.9 H (10.0-53.0) mg/dL 04/11/18 04/12/18 04/12/18 Range/Units 21:15 05:30 05:30 RBC 3.06 L (3.80-5.40) m/uL Hgb 9.0 L (11.4-16.0) gm/dL Hct 29.2 L (34.0-46.0) % MCHC 30.9 L (31.0-37.0) g/dL RDW 17.7 H (11.5-15.5) % Metamyelocytes # (Man) 0.08 H (0) k/uL Myelocytes # (Manual) 0.15 H (0) k/uL Nucleated RBCs 5 H (0-0) /100 WBC Sodium 136 L (137-145) mmol/L Carbon Dioxide 18 L (22-30) mmol/L Creatinine 3.36 H (0.52-1.04) mg/dL Glucose 106 H (74-99) mg/dL POC Glucose (mg/dL) 146 H (75-99) mg/dL Calcium 7.9 L (8.4-10.2) mg/dL Phosphorus 5.0 H (2.5-4.5) mg/dL AST 66 H (14-36) U/L Alkaline Phosphatase 261 H (38-126) U/L Total Protein 5.1 L (6.3-8.2) g/dL Albumin 2.5 L (3.5-5.0) g/dL Albumin (PEP) (3.80-4.90) g/dL Pjsul-2-Idymbqjny (0.10-0.40) g/dL Eigvd-6-Uullwtoiu (0.60-1.00) g/dL Gamma Globulins (0.70-1.50) g/dL Complement C4 (10.0-53.0) mg/dL 04/12/18 04/12/18 04/12/18 Range/Units 07:05 07:30 11:36 RBC (3.80-5.40) m/uL Hgb (11.4-16.0) gm/dL Hct (34.0-46.0) % MCHC (31.0-37.0) g/dL RDW (11.5-15.5) % Metamyelocytes # (Man) (0) k/uL Myelocytes # (Manual) (0) k/uL Nucleated RBCs (0-0) /100 WBC Sodium (137-145) mmol/L Carbon Dioxide (22-30) mmol/L Creatinine (0.52-1.04) mg/dL Glucose (74-99) mg/dL POC Glucose (mg/dL) 112 H 103 H 111 H (75-99) mg/dL Calcium (8.4-10.2) mg/dL Phosphorus (2.5-4.5) mg/dL AST (14-36) U/L Alkaline Phosphatase (38-126) U/L Total Protein (6.3-8.2) g/dL Albumin (3.5-5.0) g/dL Albumin (PEP) (3.80-4.90) g/dL Aegju-2-Iidnqikap (0.10-0.40) g/dL Hiywt-8-Azhpndbsa (0.60-1.00) g/dL Gamma Globulins (0.70-1.50) g/dL Complement C4 (10.0-53.0) mg/dL Microbiology - Last 24 Hours (Table) 04/09/18 18:18 Urine Culture - Final Urine,Catheterized Enterococcus faecium VRE Assessment and Plan Plan: 1. Sepsis with septic shock secondary to urinary tract infection with lactic acidosis. Patient transferred to the intensive care unit. PICC line ordered for IV access. Consults with Dr. Robin and Dr. Colon appreciated. Antibiotics changed to daptomycin and Zosyn. 2. Intermediate probability of pulmonary embolism currently on heparin drip changed to heparin subcu. Pulmonary medicine is following 3. Acute respiratory failure on chronic respiratory failure with hypoxia. Continue albuterol nebulizer treatments every 6 hours, DuoNeb treatments every 4 hours as needed, Flovent 2 puffs twice daily, Solu-Medrol. 4. Morbid obesity. 5. Neurogenic bladder with incontinence. Urinary retention requiring Lopez catheter placement. 6. Diabetes mellitus type 2 insulin-dependent. Metformin on hold. NovoLog scale before meals and at bedtime. 7. Debility and deconditioning. 8. Dehydration. 9. Acute kidney injury and ATN likely secondary to dehydration with hyperkalemia. Consult with nephrology appreciated. Patient was given D50, regular insulin, Lasix. 10. Sarcoidosis following with [facility] on daily dose of steroids. Changed over to Solu-Cortef 11. Hyperkalemia 12. Metabolic encephalopathy secondary to sepsis, improving. 13. Chronic pain. Methadone currently at 50 mg daily 14. Abdominal pain, CAT scan of the abdomen and pelvis and lipase ordered. 15. CODE STATUS: Full code Discharge plan: Return to [facility] as long-term resident. Patient is known to have guardian. Impression and plan of care have been directed as dictated by the signing physician. Jeanne Roca nurse practitioner acting as scribe for signing physician.
--- NOTE | 2018-04-12 16:35 | PN ---
PROGRESS NOTE DATE OF SERVICE: 04/12/2018. REASON FOR FOLLOWUP VISIT: VRE urinary tract infection with sepsis. INTERVAL HISTORY: The patient is currently afebrile. She seems to have been hemodynamically stable. Did need BiPAP off and on for respiratory support. Slightly weak and lethargic. No other complaints have been expressed. No nausea, vomiting, or any diarrhea or any other changes reported by the nursing staff. EXAMINATION: Blood pressure 125/82 with a pulse of 115, temperature 98. She is 100% on 35% FiO2. General description is a middle aged female lying in bed in no distress. Respiratory system: Unlabored breathing. Clear to auscultation anteriorly. Heart S1, S2. Regular rate and rhythm. Abdomen soft, no tenderness. Legs still has significant swelling but no redness. LABS: Hemoglobin is 9, white count 7.5. BUN of 17, creatinine 3.36. Urine finalized with VRE. DIAGNOSTIC IMPRESSION/PLAN: 1. Patient with hypertension, which is likely multifactorial with component of VRE intact infection. Currently covered with daptomycin that will be continued for now. 2. Patient with bilateral groin/abdominal fold cutaneous candidiasis. Local care with the Nystatin powder. 3. Left wound local care with Aquacel Silver dressing. Family present at bedside. Questions answered. MMODL / IJN: [id number] /
[2018-04-12 17:02] LABS: Glucose,Whole Blood 119 mg/dL (75-99)
[2018-04-12 18:36] LABS: Potassium 5.1 mmol/L (3.5-5.1)
[2018-04-12 20:59] LABS: Glucose,Whole Blood 133 mg/dL (75-99)
[2018-04-12] MEDS: GABAPENTIN 300 MG CAP PO SCH (21:36)
[2018-04-13] MEDS: ALBUTEROL NEBULIZED 2.5 MG/3 ML INHALATION SCH ×4 (01:10→19:26)
[2018-04-13] MEDS: PIPERACILLIN-TAZOBACTAM 3.375 GM in DEXTROSE/WATER 1 50ML.BAG IVPB SCH ×3 (02:31→21:55)
[2018-04-13 04:32] LABS: Anisocytosis Slight; HCT 28.4 % (34.0-46.0); Hypochromasia Moderate; MCH 30.2 pg (25.0-35.0); MCHC 31.6 g/dL (31.0-37.0); MCV 95.7 fL (80.0-100.0); Macrocytosis Slight; Platelet Count 262 k/uL (150-450); RBC 2.97 m/uL (3.80-5.40); RDW 18.2 % (11.5-15.5)
[2018-04-13 04:42] LABS: Albumin 2.7 g/dL (3.5-5.0); Calcium 7.7 mg/dL (8.4-10.2); Magnesium 1.9 mg/dL (1.6-2.3); Phosphorus 5.8 mg/dL (2.5-4.5); Potassium 4.7 mmol/L (3.5-5.1); Total Bilirubin 1.8 mg/dL (0.2-1.3); Total Protein 5.4 g/dL (6.3-8.2)
[2018-04-13 05:08] LABS: Band Neutrophils % 2 %; Lymphocytes # (M) 1.17 k/uL (1.0-4.8); Monocytes # (M) 0.31 k/uL (0-1.0); Myelocytes # (M) 0.23 k/uL (0); Myelocytes % 3 %; Neutrophils % (M) 76 %; Nucleated Red Blood Cells 16 /100 WBC (0-0); Total Cells Counted 200; WBC 7.8 k/uL (3.8-10.6)
[2018-04-13 05:09] LABS: Polychromasia Present; Target Cells Present
[2018-04-13] MEDS: methylPREDNISolone SOD SUCCI 125 MG/2 ML VIAL IV SCH ×4 (06:54→23:15)
[2018-04-13] MEDS: SODIUM CHLORIDE 0.9% 1,000 ML IV SCH ×3 (06:57→22:00)
[2018-04-13 07:03] LABS: Glucose,Whole Blood 136 mg/dL (75-99)
[2018-04-13] MEDS: INSULIN ASPART 100 UNIT/ML 1 ML 10 ML VIAL SQ SCH ×4 (07:03→21:50)
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
[2018-04-13] MEDS: FLUTICASONE 110 MCG INHALER INHALATION SCH ×2 (07:44→19:26)
[2018-04-13] MEDS: METHADONE 10 MG TAB PO SCH (09:06)
[2018-04-13] MEDS: SODIUM BICARBONATE TAB 650 MG TAB PO SCH ×3 (09:07→22:00)
[2018-04-13] MEDS: HEPARIN SODIUM,PORCINE 5,000 UNIT/ML 1 ML VIAL SQ SCH ×3 (09:07→23:14)
[2018-04-13] MEDS: FAMOTIDINE 20 MG TAB PO SCH (09:07)
[2018-04-13] MEDS: METOPROLOL TARTRATE 12.5 MG TAB PO SCH ×2 (09:08→21:54)
[2018-04-13] MEDS: BETHANECHOL 25 MG TAB PO SCH ×4 (09:08→21:59)
[2018-04-13] MEDS: DULoxetine HCL 30 MG CAPSULE.DR PO SCH ×2 (09:08→23:15)
--- NOTE | 2018-04-13 11:04 | XR ---
EXAMINATION TYPE: XR chest 1V portable DATE OF EXAM: 04/13/2018 COMPARISON: Prior chest x-ray 04/12/2018 HISTORY: Abnormal chest x-ray, respiratory status, cardiomegaly TECHNIQUE: Single frontal view of the chest is obtained. FINDINGS: Heart remains enlarged. There are overlying cardiac leads. Right-sided PICC line shows the distal tip overlying the region of the innominate vein on the right. No evident pneumothorax or pleu ral effusion. Pulmonary vascularity and fide are within normal limits. No evident airspace disease. R ight lung apex not entirely included on the exam. IMPRESSION: Stable cardiomegaly.
[2018-04-13 12:29] LABS: Glucose,Whole Blood 138 mg/dL (75-99)
[2018-04-13] MEDS: NYSTATIN 100,000 UNIT/GM POWD 15 GM TOPICAL SCH ×2 (12:38→21:55)
[2018-04-13] MEDS: CLOTRIMAZOLE/BETAMETH 1-0.05% CREAM 45 GM TUBE TOPICAL SCH ×2 (12:39→21:51)
[2018-04-13] MEDS: PETROLATUM, WHITE OINT 50 GM TUBE TOPICAL SCH ×2 (12:39→21:55)
[2018-04-13] MEDS: ZINC OXIDE 20% OINT 28.4 GM TUBE TOPICAL SCH ×4 (12:39→21:57)
[2018-04-13] MEDS: PANTOPRAZOLE 40 MG/10 ML VIAL IVP SCH (12:49)
--- NOTE | 2018-04-13 12:49 | P.PN ---
Subjective Patient is seen in follow for acute kidney injury. Her baseline creatinine is 1. It is up to 3.67 today. Patient presented to the hospital due to hypotension with systolic blood pressure in the 60s at the ECF. Patient was transferred to the ICU with persistent hypotension and lactic acidosis. She is currently maintained on normal saline at 100 mL an hour. She was also started on IV steroids. Cortisol level normal. Oral intake is poor. UO 10 cc/hr. Vital signs are stable. General: The patient appeared well nourished and normally developed. HEENT: Head exam is unremarkable. Neck is without jugular venous distension. On BiPAP. LUNGS: Breath sounds decreased. HEART: Rate and Rhythm are regular. First and second heart sounds normal. No murmurs, rubs or gallops. ABDOMEN: Abdominal exam reveals normal bowel sounds. Non-tender and non- distended. No evidence of peritonitis. EXTREMITITES: 2+ edema. Objective - Vital Signs Vital signs: Vital Signs Temp 97.0 F L 04/13/18 08:00 Pulse 99 04/13/18 10:00 Resp 18 04/13/18 10:00 BP 111/73 04/13/18 10:00 Pulse Ox 96 04/13/18 10:00 Intake & Output 04/12/18 04/13/18 04/13/18 18:59 06:59 18:59 Intake Total 1277.5 1425.0 225.0 Output Total 198 73 219 Balance 1079.5 1352.0 6.0 Weight 171.1 kg 174.3 kg Intake: IV 1262.5 1200.0 225.0 DAPTOmycin 600 mg In 50 Sodium Chloride 0.9% 50 ml @ 100 mls/hr IVPB Q48H [facility] Rx#:[id number] Piperacillin-Tazobactam 3 62.5 50.0 25.0 .375 gm In Dextrose/Water 1 50ml.bag @ 12.5 mls/hr IVPB Q8HR [facility] Rx#: [id number] Sodium Chloride 0.9% 1, 1200 1100 200 000 ml @ 100 mls/hr IV . Q10H [facility] Rx#:[id number] Oral 15 225 Output: Urine 198 73 219 Other: Voiding Method Indwelling Catheter Indwelling Catheter Indwelling Catheter - Labs CBC & Chem 7: 04/13/18 04:20 10/25/18 04:20 Labs: Abnormal Lab Results - Last 24 Hours (Table) 04/12/18 04/12/18 04/13/18 Range/Units 16:51 20:48 04:20 RBC 2.97 L (3.80-5.40) m/uL Hgb 9.0 L (11.4-16.0) gm/dL Hct 28.4 L (34.0-46.0) % RDW 18.2 H (11.5-15.5) % Myelocytes # (Manual) 0.23 H (0) k/uL Nucleated RBCs 16 H (0-0) /100 WBC Sodium (137-145) mmol/L Carbon Dioxide (22-30) mmol/L BUN (7-17) mg/dL Creatinine (0.52-1.04) mg/dL Glucose (74-99) mg/dL POC Glucose (mg/dL) 119 H 133 H (75-99) mg/dL Calcium (8.4-10.2) mg/dL Phosphorus (2.5-4.5) mg/dL Total Bilirubin (0.2-1.3) mg/dL AST (14-36) U/L ALT (9-52) U/L Alkaline Phosphatase (38-126) U/L Total Protein (6.3-8.2) g/dL Albumin (3.5-5.0) g/dL 04/13/18 04/13/18 04/13/18 Range/Units 04:20 06:52 12:01 RBC (3.80-5.40) m/uL Hgb (11.4-16.0) gm/dL Hct (34.0-46.0) % RDW (11.5-15.5) % Myelocytes # (Manual) (0) k/uL Nucleated RBCs (0-0) /100 WBC Sodium 136 L (137-145) mmol/L Carbon Dioxide 17 L (22-30) mmol/L BUN 20 H (7-17) mg/dL Creatinine 3.67 H (0.52-1.04) mg/dL Glucose 133 H (74-99) mg/dL POC Glucose (mg/dL) 136 H 138 H (75-99) mg/dL Calcium 7.7 L (8.4-10.2) mg/dL Phosphorus 5.8 H (2.5-4.5) mg/dL Total Bilirubin 1.8 H (0.2-1.3) mg/dL AST 82 H (14-36) U/L ALT 54 H (9-52) U/L Alkaline Phosphatase 278 H (38-126) U/L Total Protein 5.4 L (6.3-8.2) g/dL Albumin 2.7 L (3.5-5.0) g/dL Microbiology - Last 24 Hours (Table) 04/09/18 18:18 Urine Culture - Final Urine,Catheterized Enterococcus faecium VRE Assessment and Plan Plan: Assessment: 1. Acute kidney injury secondary to ATN secondary to hypotension. Creatinine up to 3.67 today. Baseline creatinine near 1. No hydronephrosis noted on renal ultrasound. She is noted to have sub-nephrotic proteinuria. 2. Proteinuria. Her albumin is also low. UPC 0.5. Rule out GN. Serologies negative. Urine eosinophils negative. 3. Metabolic acidosis secondary to acute kidney injury and IV fluids. 4. Edema. 5. Hypotension. This is due to to sepsis. Cortisol level normal. 6. Diabetes mellitus. Patient states this was diagnosed within the last 1 year. 7. UTI with urine culture positive for VRE. Infectious disease following. Vancomycin discontinued. 8. Hyperkalemia. This is due to acute kidney injury and metabolic acidosis. Potassium supplementation discontinued. Better. 9. Hyponatremia secondary to acute kidney injury. Better. 10. Hyperphosphatemia secondary to BOONE. Plan: Increase NS to 125 cc/hr. Strict I's and O's. Maintain oral sodium bicarbonate supplementation. Avoid nephrotoxins. If no improvement in renal function over the next few days, will consider kidney biopsy when she is more stable. No urgent need for any replacement therapy at this time. Patient is agreeable to start [employer]GL[employer] if needed.] F/u ECHO. Add phoslo tid.
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
--- NOTE | 2018-04-13 15:29 | P.PN ---
<Jeanne Roca A - Last Filed: 04/13/18 15:27> Subjective Progress Note Date: 04/13/18 This is 47 years old female with past medical history significant for sarcoidosis, morbid obesity, diabetes mellitus and multiple comorbidities, residence of long-term who was recently discharged from [facility] presents today from long-term with hypotension, slight tachycardia and hypoxia. In the emergency department blood pressure was below 90/60, heart rate in the 110 area, oxygen was in the mid 80s patient was started on oxygen and blood work showed elevated creatinine patient was sent to VQ scan which showed intermediate probability with limited examination due to motion factor and patient was started on heparin drip for assumption of pulmonary embolism. Patient is poor historian and unable to provide detailed information and was refusing care per nursing staff since admission to the floor including her medication and using her BiPAP on an as-needed basis. Patient currently is denying chest pain, shortness breath, nausea, vomiting, abdominal pain or productive cough 04/10: Received call today from the nursing staff the patient was really sick, blood pressure was low and was lethargic and sleeping well on BiPAP most the morning and lactic acid was elevated at 5.8 last evening.. She was unable to take her medications or eat this morning. She has increased edema. Patient has only had 150 mL of urine output overnight. She does have a Lopez catheter in. There was no IV access. Patient has been seen by by nephrology and cortisol level ordered along with Solu-Cortef and Lasix 60 mg IV once. Prednisone was discontinued. Patient was transferred into the intensive care unit and consult requested with Dr. Robin for intensive care management. Methadone dose changed to 50 mg daily which is her current dose at [facility]. Diarrhea has resolved. 04/11: Repeat chest x-ray reveals stable cardiomegaly. PICC placement. Patient has been seen by Dr. Colon and vancomycin and daptomycin started, continue Zosyn. Santyl to lower extremity cellulitis. Patient has been seen by Dr. Robin with concern for possible left lower lobe pneumonia, small left pleural effusion and dehydration. This morning, Dr. Moran ordered Lasix 40 mg IV once , IV dextrose 50% and regular insulin. Cortisol level was normal. Steroids are Solu-Medrol 60 mg every 6 hours. Midodrine was started yesterday for blood pressure support. Blood pressure is much improved today. Hemoglobin is 9.3, sodium 131 and potassium 5.3, creatinine 2.99. Capillary blood glucose running between 117 and 134. Lactic acid is now down to 1.9. Vancomycin level 25.6. Patient has been hemodynamically stable, afebrile. Patient has been on BiPAP and this morning is on nasal cannula, she remains lethargic but more alert from yesterday. Lopez catheter is in place. She continues to have lower extremity edema and now with weeping. No diarrhea. Patient has not had a bowel movement since 04/10. Urine output has been adequate at 50 mL per hour for the past 4 hours. She is complaining of nausea and abdominal discomfort for which lipase and CAT scan of the abdomen and pelvis ordered with oral contrast only. 04/12: Patient remains in intensive care unit. She has been hemodynamically stable and Midodrine will be discontinued. Lopez catheter remains in place with good urine output. She had a large bowel movement last evening and a small soft bowel movement today. Creatinine is 3.36 and BUN 17.. Heart rates have been elevated. Patient is more alert today from yesterday. GI consult added for elevated liver function tests and abdominal ultrasound ordered. 04/13: Cardiology consult was added yesterday due to tachycardia and patient was started on Lopressor 12.5 mg twice daily and hold for systolic blood pressure less than 90. TSH was 1.620. She has been on BiPAP during the night. Abdominal ultrasound reveals hepatomegaly correlate for hepatic steatosis, diffuse hepatocellular disease or hepatitis. There is ringing down artifact involving the gallbladder wall which can occasionally be seen with adenomyomatosis. Repeat liver function tests are increasing with total bilirubin 1.8, AST 82, ALT 54, alkaline phosphatase 278. GI is following. BUN 20 and creatinine 3.67, urine output low. She has epigastric tenderness and protonix added to omeprazole. Patient eating very little and refused nephro today. She is cleared to be transferred to Cardiac Step down. Review Of Systems: Constitutional: No fever, no chills, no night sweats. +weakness, +fatigue, + lethargy. + daytime sleepiness. EENT: No headache. No epistaxis. No sore throat. Lungs: + shortness of breath, + cough, no sputum production. No wheezing. Cardiovascular: No chest pain, + lower extremity edema. No palpitations. No paroxysmal nocturnal dyspnea. No orthopnea. No lightheadedness or dizziness. No syncopal episodes. Abdominal: +abdominal pain. No nausea, vomiting. No diarrhea. No constipation. No bloody or tarry stools. + loss of appetite. Genitourinary: No dysuria, increased frequency, urgency. + urinary retention. Musculoskeletal: + myalgias. + muscle weakness, + gait dysfunction. Integumentary: No rash or pruritus. + wheeping lower legs Neurological: mild mental status change. Endocrine: No abnormal blood sugars. Objective - Vital Signs Vital signs: Vital Signs Temp 97.0 F L 04/13/18 08:00 Pulse 100 04/13/18 08:01 Resp 16 04/13/18 08:00 BP 109/51 04/13/18 08:00 Pulse Ox 100 04/13/18 08:00 Intake & Output 04/12/18 04/13/18 04/13/18 18:59 06:59 18:59 Intake Total 1277.5 1425.0 200 Output Total 198 73 14 Balance 1079.5 1352.0 186 Weight 171.1 kg 174.3 kg Intake: IV 1262.5 1200.0 200 DAPTOmycin 600 mg In 50 Sodium Chloride 0.9% 50 ml @ 100 mls/hr IVPB Q48H [facility] Rx#:[id number] Piperacillin-Tazobactam 3 62.5 50.0 .375 gm In Dextrose/Water 1 50ml.bag @ 12.5 mls/hr IVPB Q8HR [facility] Rx#: [id number] Sodium Chloride 0.9% 1, 1200 1100 200 000 ml @ 100 mls/hr IV . Q10H [facility] Rx#:[id number] Oral 15 225 Output: Urine 198 73 14 Other: Voiding Method Indwelling Catheter Indwelling Catheter - Exam Gen: This is a morbidly obese 47-year-old [place] female. She is in ICU bed and appears to be in no acute distress. Family at bedside. HEENT: Head is atraumatic, normocephalic. Pupils equal, round. Sclerae is anicteric. Hearing grossly normal. NECK: Supple. No JVD. No lymphadenopathy. No thyromegaly. LUNGS: Diminished bilaterally. Clear to auscultation. No wheezes or rhonchi. No intercostal retractions. HEART: Regular rate and rhythm. No murmur. ABDOMEN: Morbidly obese. Soft. Bowel sounds are present. No masses. Positive epigastric tenderness. Lopez catheter draining clear benjy urine. EXTREMITIES: 2+ pedal edema with serous weeping. No calf tenderness. NEUROLOGICAL: Patient is awake, alert and oriented x2-3-near baseline. Generalized weakness. - Labs CBC & Chem 7: 04/13/18 04:20 04/13/18 04:20 Labs: Abnormal Lab Results - Last 24 Hours (Table) 04/12/18 04/12/18 04/12/18 Range/Units 11:36 16:51 20:48 RBC (3.80-5.40) m/uL Hgb (11.4-16.0) gm/dL Hct (34.0-46.0) % RDW (11.5-15.5) % Myelocytes # (Manual) (0) k/uL Nucleated RBCs (0-0) /100 WBC Sodium (137-145) mmol/L Carbon Dioxide (22-30) mmol/L BUN (7-17) mg/dL Creatinine (0.52-1.04) mg/dL Glucose (74-99) mg/dL POC Glucose (mg/dL) 111 H 119 H 133 H (75-99) mg/dL Calcium (8.4-10.2) mg/dL Phosphorus (2.5-4.5) mg/dL Total Bilirubin (0.2-1.3) mg/dL AST (14-36) U/L ALT (9-52) U/L Alkaline Phosphatase (38-126) U/L Total Protein (6.3-8.2) g/dL Albumin (3.5-5.0) g/dL 04/13/18 04/13/18 04/13/18 Range/Units 04:20 04:20 06:52 RBC 2.97 L (3.80-5.40) m/uL Hgb 9.0 L (11.4-16.0) gm/dL Hct 28.4 L (34.0-46.0) % RDW 18.2 H (11.5-15.5) % Myelocytes # (Manual) 0.23 H (0) k/uL Nucleated RBCs 16 H (0-0) /100 WBC Sodium 136 L (137-145) mmol/L Carbon Dioxide 17 L (22-30) mmol/L BUN 20 H (7-17) mg/dL Creatinine 3.67 H (0.52-1.04) mg/dL Glucose 133 H (74-99) mg/dL POC Glucose (mg/dL) 136 H (75-99) mg/dL Calcium 7.7 L (8.4-10.2) mg/dL Phosphorus 5.8 H (2.5-4.5) mg/dL Total Bilirubin 1.8 H (0.2-1.3) mg/dL AST 82 H (14-36) U/L ALT 54 H (9-52) U/L Alkaline Phosphatase 278 H (38-126) U/L Total Protein 5.4 L (6.3-8.2) g/dL Albumin 2.7 L (3.5-5.0) g/dL Microbiology - Last 24 Hours (Table) 04/09/18 18:18 Urine Culture - Final Urine,Catheterized Enterococcus faecium VRE Assessment and Plan Plan: 1. Sepsis with septic shock secondary to urinary tract infection with lactic acidosis. Patient transferred to the intensive care unit. PICC line ordered for IV access. Consults with Dr. Robin and Dr. Colon appreciated. Antibiotics changed to daptomycin and Zosyn. IVF per Dr. Moran 2. Intermediate probability of pulmonary embolism ruled out. Pulmonary medicine is following 3. Acute respiratory failure on chronic respiratory failure with hypoxia. Continue albuterol nebulizer treatments every 6 hours, DuoNeb treatments every 4 hours as needed, Flovent 2 puffs twice daily, Solu-Medrol. 4. Morbid obesity. 5. Neurogenic bladder with incontinence. Urinary retention requiring Lopez catheter placement. 6. Diabetes mellitus type 2 insulin-dependent. Metformin on hold. NovoLog scale before meals and at bedtime. 7. Debility and deconditioning. 8. Dehydration. 9. Acute kidney injury and ATN likely secondary to dehydration with hyperkalemia. Consult with nephrology appreciated. Patient was given D50, regular insulin, Lasix. Daily dosing of lasix. Currently on IVF. 10. Sarcoidosis following with [facility] on daily dose of steroids. 11. Hyperkalemia 12. Metabolic encephalopathy secondary to sepsis, improving. 13. Chronic pain. Methadone currently at 50 mg daily 14. Abdominal pain, CAT scan of the abdomen and pelvis and lipase ordered. 15. CODE STATUS: Full code Discharge plan: Return to [facility] as long-term resident. Patient is known to have guardian. Impression and plan of care have been directed as dictated by the signing physician. Jeanne Roca nurse practitioner acting as scribe for signing physician. <Kaylan Vizcarra - Last Filed: 04/23/18 23:12> Objective - Vital Signs Vital signs: Vital Signs Temp 97.6 F 04/23/18 20:00 Pulse 96 04/23/18 23:00 Resp 25 H 04/23/18 23:00 BP 125/80 04/23/18 12:28 Pulse Ox 98 04/23/18 23:00 Intake & Output 04/23/18 04/23/18 04/24/18 06:59 18:59 06:59 Intake Total 2159.934 484 Output Total 12 2 Balance 2147.934 482 Weight Intake: IV 672 280 Sodium Chloride 0.9% 1, 600 250 000 ml @ 50 mls/hr IV . Q20H [facility] Rx#:[id number] pressure bag 72 30 Intake, IV Titration 276.934 Amount Norepinephrine 16 mg In Sodium Chloride 0.9% 250 ml @ Titrate IV .Q0M [facility] Rx#:[id number] Propofol 1,000 mg In 276.934 Empty Bag 1 bag @ Titrate IV .Q0M [facility] Rx#: [id number] Tube Feeding 561 204 Blood Product 620 Rc Pheresis As-3 Unit 310 [id number] Rc Pheresis As-3 Unit 310 [id number] Other 30 Output: Urine 10 2 Stool 2 Other: Voiding Method Indwelling Catheter Indwelling Catheter # Voids ABP, PAP, CO, CI - Last Documented Arterial Blood Pressure 118/60 - Labs CBC & Chem 7: 04/23/18 14:20 04/23/18 05:30 Labs: Abnormal Lab Results - Last 24 Hours (Table) 04/20/18 04/23/18 04/23/18 Range/Units 20:06 04:22 05:30 WBC (3.8-10.6) k/uL RBC (3.80-5.40) m/uL Hgb (11.4-16.0) gm/dL Hct (34.0-46.0) % RDW (11.5-15.5) % Plt Count (150-450) k/uL Neutrophils # (Manual) (1.3-7.7) k/uL Metamyelocytes # (Man) (0) k/uL Myelocytes # (Manual) (0) k/uL Promyelocytes # (Man) (0) k/uL Nucleated RBCs (0-0) /100 WBC APTT (22.0-30.0) sec ABG Total CO2 (19-24) mmol/L ABG O2 Saturation (94-97) % Sodium 136 L (137-145) mmol/L Carbon Dioxide 20 L (22-30) mmol/L BUN 18 H (7-17) mg/dL Creatinine 1.35 H (0.52-1.04) mg/dL Glucose 263 H (74-99) mg/dL POC Glucose (mg/dL) 259 H (75-99) mg/dL Calcium 6.9 L (8.4-10.2) mg/dL Phosphorus 1.7 L (2.5-4.5) mg/dL Total Bilirubin 8.0 H (0.2-1.3) mg/dL AST 524 H (14-36) U/L ALT 231 H (9-52) U/L Alkaline Phosphatase 331 H (38-126) U/L Lactate Dehydrogenase (313-618) U/L Total Protein 4.5 L (6.3-8.2) g/dL Albumin 2.8 L (3.5-5.0) g/dL Crossmatch See Detail 04/23/18 04/23/18 04/23/18 Range/Units 05:36 07:43 08:16 WBC 27.0 H (3.8-10.6) k/uL RBC 1.84 L (3.80-5.40) m/uL Hgb 5.5 L* D (11.4-16.0) gm/dL Hct 16.6 L* (34.0-46.0) % RDW 18.2 H (11.5-15.5) % Plt Count 88 L (150-450) k/uL Neutrophils # (Manual) 19.70 H (1.3-7.7) k/uL Metamyelocytes # (Man) 2.43 H (0) k/uL Myelocytes # (Manual) 2.97 H (0) k/uL Promyelocytes # (Man) 0.27 H (0) k/uL Nucleated RBCs 23 H (0-0) /100 WBC APTT (22.0-30.0) sec ABG Total CO2 25 H (19-24) mmol/L ABG O2 Saturation 97.8 H (94-97) % Sodium (137-145) mmol/L Carbon Dioxide (22-30) mmol/L BUN (7-17) mg/dL Creatinine (0.52-1.04) mg/dL Glucose (74-99) mg/dL POC Glucose (mg/dL) 218 H (75-99) mg/dL Calcium (8.4-10.2) mg/dL Phosphorus (2.5-4.5) mg/dL Total Bilirubin (0.2-1.3) mg/dL AST (14-36) U/L ALT (9-52) U/L Alkaline Phosphatase (38-126) U/L Lactate Dehydrogenase (313-618) U/L Total Protein (6.3-8.2) g/dL Albumin (3.5-5.0) g/dL Crossmatch 04/23/18 04/23/18 04/23/18 Range/Units 11:52 14:20 14:20 WBC 25.0 H (3.8-10.6) k/uL RBC 2.59 L (3.80-5.40) m/uL Hgb 8.4 L D (11.4-16.0) gm/dL Hct 23.1 L (34.0-46.0) % RDW 16.9 H (11.5-15.5) % Plt Count 71 L (150-450) k/uL Neutrophils # (Manual) 21.50 H (1.3-7.7) k/uL Metamyelocytes # (Man) 1.50 H (0) k/uL Myelocytes # (Manual) 1.00 H (0) k/uL Promyelocytes # (Man) (0) k/uL Nucleated RBCs 33 H (0-0) /100 WBC APTT (22.0-30.0) sec ABG Total CO2 (19-24) mmol/L ABG O2 Saturation (94-97) % Sodium (137-145) mmol/L Carbon Dioxide (22-30) mmol/L BUN (7-17) mg/dL Creatinine (0.52-1.04) mg/dL Glucose (74-99) mg/dL POC Glucose (mg/dL) 204 H (75-99) mg/dL Calcium (8.4-10.2) mg/dL Phosphorus (2.5-4.5) mg/dL Total Bilirubin (0.2-1.3) mg/dL AST (14-36) U/L ALT (9-52) U/L Alkaline Phosphatase (38-126) U/L Lactate Dehydrogenase 6098 H (313-618) U/L Total Protein (6.3-8.2) g/dL Albumin (3.5-5.0) g/dL Crossmatch 04/23/18 04/23/18 04/23/18 Range/Units 14:20 17:15 20:44 WBC (3.8-10.6) k/uL RBC (3.80-5.40) m/uL Hgb (11.4-16.0) gm/dL Hct (34.0-46.0) % RDW (11.5-15.5) % Plt Count (150-450) k/uL Neutrophils # (Manual) (1.3-7.7) k/uL Metamyelocytes # (Man) (0) k/uL Myelocytes # (Manual) (0) k/uL Promyelocytes # (Man) (0) k/uL Nucleated RBCs (0-0) /100 WBC APTT 39.6 H (22.0-30.0) sec ABG Total CO2 (19-24) mmol/L ABG O2 Saturation (94-97) % Sodium (137-145) mmol/L Carbon Dioxide (22-30) mmol/L BUN (7-17) mg/dL Creatinine (0.52-1.04) mg/dL Glucose (74-99) mg/dL POC Glucose (mg/dL) 223 H 162 H (75-99) mg/dL Calcium (8.4-10.2) mg/dL Phosphorus (2.5-4.5) mg/dL Total Bilirubin (0.2-1.3) mg/dL AST (14-36) U/L ALT (9-52) U/L Alkaline Phosphatase (38-126) U/L Lactate Dehydrogenase (313-618) U/L Total Protein (6.3-8.2) g/dL Albumin (3.5-5.0) g/dL Crossmatch Microbiology - Last 24 Hours (Table) 04/21/18 00:29 Gram Stain - Final Sputum Sputum Culture - Final Pseudomonas aeruginosa Carmel albicans Assessment and Plan Plan: Addendum diagnosis: diagnosis should reflect acute kidney failure secondary to septic shock, ATN chronic steroids immununosupressed state chronic from prison steroids
[2018-04-13 17:12] LABS: Glucose,Whole Blood 112 mg/dL (75-99)
[2018-04-13] MEDS: CALCIUM ACETATE 667 MG CAP PO SCH (18:29)
[2018-04-13] MEDS: BUDESONIDE 0.5 MG/2 ML NEBU INHALATION SCH (19:26)
--- NOTE | 2018-04-13 19:47 | ECHOF ---
Referral Reason:tachycardia MEASUREMENTS -------- HEIGHT: 175.3 cm WEIGHT: 174.2 kg BP: IVSd: 1.2 cm (0.6 - 1.1) LVIDd: 3.5 cm (3.9 - 5.3) LVPWd: 1.3 cm (0.6 - 1.1) IVSs: 1.2 cm LVIDs: 3.2 cm LVPWs: 1.3 cm LA Diam: 3.0 cm (2.7 - 3.8) RVIDd: 4.2 cm (< 3.3) EPSS: 0.9 cm MV E Carlos: 0.40 m/s MV DecT: 239 ms MV A Carlos: 0.61 m/s MV E/A Ratio: 0.66 RAP: 15.00 mmHg RVSP: 61.55 mmHg MV EF SLOPE: 85.49 mm/s (70 - 150) MV EXCURSION: 16.92 mm (> 18.000) FINDINGS -------- Sinus rhythm. Morbid Obesity The left ventricular size is normal. There is mild concentric left ventricular hypertrophy. Overa ll left ventricular systolic function is mildly impaired with, an EF between 45 - 50 %. The right ventricle is severely enlarged. The right ventricular septal wall is flattened in diastol e and systole which is consistent with right ventricular volume and pressure overload. The left atrial size is normal. The right atrium is moderately enlarged. The aortic valve is trileaflet, and appears structurally normal. No aortic stenosis or regurgitation. Mild mitral regurgitation is present. Moderate to severe tricuspid regurgitation present. There is moderate pulmonary hypertension. The right ventricular systolic pressure, as measured by Doppler, is 61.55mmHg. The pulmonic valve was not well visualized. There is no pulmonic regurgitation present. The aortic root size is normal. Echo free space represents a pericardial fat pad. CONCLUSIONS -------- 1. Morbid Obesity 2. The left ventricular size is normal. 3. There is mild concentric left ventricular hypertrophy. 4. Overall left ventricular systolic function is mildly impaired with, an EF between 45 - 50 %. 5. The right ventricle is severely enlarged. 6. The right ventricular septal wall is flattened in diastole and systole which is consistent with r ight ventricular volume and pressure overload. 7. The left atrial size is normal. 8. The right atrium is moderately enlarged. 9. The aortic valve is trileaflet, and appears structurally normal. No aortic stenosis or regurgitati on. 10. Mild mitral regurgitation is present. 11. There is moderate pulmonary hypertension. 12. The right ventricular systolic pressure, as measured by Doppler, is 61.55mmHg. 13. There is no pulmonic regurgitation present. 14. The aortic root size is normal. 15. Echo free space represents a pericardial fat pad. DIRECTIONAL DRILL OPERATOR: Kyara Avalos RDCS
[2018-04-13 21:16] LABS: Glucose,Whole Blood 116 mg/dL (75-99)
[2018-04-13] MEDS: GABAPENTIN 300 MG CAP PO SCH (21:54)
[2018-04-14] MEDS: ALBUTEROL NEBULIZED 2.5 MG/3 ML INHALATION SCH ×5 (01:11→21:10)
[2018-04-14 05:02] LABS: Anisocytosis Slight; HGB 8.8 gm/dL (11.4-16.0); Hypochromasia Moderate; MCHC 30.4 g/dL (31.0-37.0); MCV 95.3 fL (80.0-100.0); Macrocytosis Slight; Mean Platelet Volume 7.2; Platelet Count 255 k/uL (150-450); RBC 3.04 m/uL (3.80-5.40); RDW 18.1 % (11.5-15.5)
[2018-04-14 05:21] LABS: Albumin 2.7 g/dL (3.5-5.0); Calcium 7.5 mg/dL (8.4-10.2); Magnesium 2.1 mg/dL (1.6-2.3); Potassium 4.8 mmol/L (3.5-5.1); Total Bilirubin 2.9 mg/dL (0.2-1.3); Total Protein 5.3 g/dL (6.3-8.2)
[2018-04-14 06:01] LABS: Band Neutrophils % 10 %; Metamyelocytes % 2 %; Neutrophils % (M) 66 %; Nucleated Red Blood Cells 18 /100 WBC (0-0); Total Cells Counted 200
[2018-04-14 06:02] LABS: Lymphocytes # (M) 1.63 k/uL (1.0-4.8); Metamyelocytes # (M) 0.17 k/uL (0); Monocytes # (M) 0.26 k/uL (0-1.0); WBC 8.6 k/uL (3.8-10.6)
[2018-04-14 06:03] LABS: Basophilic Stippling Present; Polychromasia Present; Target Cells Present
[2018-04-14] MEDS: methylPREDNISolone SOD SUCCI 125 MG/2 ML VIAL IV SCH ×3 (06:58→21:37)
[2018-04-14] MEDS: SODIUM CHLORIDE 0.9% 1,000 ML IV SCH ×3 (07:01→22:08)
[2018-04-14] MEDS: INSULIN ASPART 100 UNIT/ML 1 ML 10 ML VIAL SQ SCH ×4 (07:03→21:44)
--- NOTE | 2018-04-14 07:27 | P.PN ---
Subjective Progress Note Date: 04/14/18 Principal diagnosis: Sinus tachycardia This is a 47-year-old female patient who I requested to see as a consult in the intensive care unit for further evaluation off sinus tachycardia. The patient herself is a poor historian. The patient is a [facility]. She does have very poor functional capacity and she is almost bedridden because of morbid obesity may only. The patient was brought from the extended care facility to the hospital with a change in mental status. In the emergency room, the patient was found to be slightly hypotensive as well as tachycardic. The initial impression was pulmonary embolism but subsequently the patient was diagnosed with urinary tract infection and she was started on antibiotic and was admitted to the hospital for further evaluation and management. Subsequently the patient was transferred to the intensive care unit because she was in mild respiratory distress. I was asked to see the patient for a consult for sinus tachycardia. The patient resting heart rate has been in the 100 the spermatic. She has been maintaining normal sinus mechanism. The blood pressure has been in the 130s and 140s millimeters mercury systolic. The patient overall is a poor historian but there is no indication of any history of coronary artery disease or congestive heart failure or cardiac arrhythmia. She does have diabetes, she is morbidly obese, and she does have multiple comorbid conditions as well as. The hemoglobin is 9. The creatinine is 3.67. The EKG from April 11 revealed only sinus tachycardia without any significant ST or T-wave abnormalities. On follow-up with the patient today, 04/14/2018, clinically she looks the same as before. I did start the patient yesterday on metoprolol at 12.5 mg by mouth twice a day and the heart rate has been in the 90s but her blood pressure this morning has been on the low side. Because of that I would hold the metoprolol for any systolic blood pressure below 90 mmHg. Beside that the patient did gain significant amount of weight. Her creatinine is worse as well. She is not making good amount of urine. Nephrology is on the case regarding that. The patient underwent an echocardiogram in January 2018 and that revealed normal LV function without any significant valvular abnormalities. Objective - Vital Signs Vital signs: Vital Signs Temp 98.5 F 04/14/18 04:00 Pulse 93 04/14/18 06:00 Resp 21 04/14/18 06:00 BP 96/71 04/14/18 06:00 Pulse Ox 100 04/14/18 06:00 Intake & Output 04/13/18 04/14/18 04/14/18 18:59 06:59 18:59 Intake Total 1465.0 765 Output Total 91 76 Balance 1374.0 689 Weight 174.3 kg 181.9 kg Intake: IV 1375.0 675 Piperacillin-Tazobactam 3 50.0 50 .375 gm In Dextrose/Water 1 50ml.bag @ 12.5 mls/hr IVPB Q8HR [facility] Rx#: [id number] Sodium Chloride 0.9% 1, 1325 625 000 ml @ 125 mls/hr IV . Q8H [facility] Rx#:[id number] Oral 90 90 Output: Urine 91 76 Other: Voiding Method Indwelling Catheter Indwelling Catheter - Constitutional General appearance: Present: no acute distress - Respiratory Respiratory: bilateral: diminished - Cardiovascular Rhythm: regular Heart sounds: normal: S1, S2 - Labs CBC & Chem 7: 04/14/18 04:54 04/14/18 04:54 Labs: Abnormal Lab Results - Last 24 Hours (Table) 04/13/18 04/13/18 04/13/18 Range/Units 12:01 17:00 21:04 RBC (3.80-5.40) m/uL Hgb (11.4-16.0) gm/dL Hct (34.0-46.0) % MCHC (31.0-37.0) g/dL RDW (11.5-15.5) % Metamyelocytes # (Man) (0) k/uL Nucleated RBCs (0-0) /100 WBC Chloride (98-107) mmol/L Carbon Dioxide (22-30) mmol/L BUN (7-17) mg/dL Creatinine (0.52-1.04) mg/dL Glucose (74-99) mg/dL POC Glucose (mg/dL) 138 H 112 H 116 H (75-99) mg/dL Calcium (8.4-10.2) mg/dL Phosphorus (2.5-4.5) mg/dL Total Bilirubin (0.2-1.3) mg/dL AST (14-36) U/L ALT (9-52) U/L Alkaline Phosphatase (38-126) U/L Total Protein (6.3-8.2) g/dL Albumin (3.5-5.0) g/dL 04/14/18 04/14/18 Range/Units 04:54 04:54 RBC 3.04 L (3.80-5.40) m/uL Hgb 8.8 L (11.4-16.0) gm/dL Hct 29.0 L (34.0-46.0) % MCHC 30.4 L (31.0-37.0) g/dL RDW 18.1 H (11.5-15.5) % Metamyelocytes # (Man) 0.17 H (0) k/uL Nucleated RBCs 18 H (0-0) /100 WBC Chloride 108 H (98-107) mmol/L Carbon Dioxide 17 L (22-30) mmol/L BUN 23 H (7-17) mg/dL Creatinine 3.99 H (0.52-1.04) mg/dL Glucose 126 H (74-99) mg/dL POC Glucose (mg/dL) (75-99) mg/dL Calcium 7.5 L (8.4-10.2) mg/dL Phosphorus 6.0 H (2.5-4.5) mg/dL Total Bilirubin 2.9 H (0.2-1.3) mg/dL AST 208 H (14-36) U/L ALT 85 H (9-52) U/L Alkaline Phosphatase 383 H (38-126) U/L Total Protein 5.3 L (6.3-8.2) g/dL Albumin 2.7 L (3.5-5.0) g/dL Assessment and Plan Assessment: Assessment #1 urinary tract infection/sepsis. #2 intermediate property for pulmonary embolism #3 diabetes type 2 #4 morbid obesity #5 change in mental status #6 acute on chronic renal failure Plan #1 the sinus tachycardia is likely to be multifactorial and related mainly to the respiratory distress as well as the PE #2 continue the current dose of metoprolol and hold it for any systolic pressure below 90 mmHg #3 recent echocardiogram revealed normal LV function without any significant valvular abnormalities #4 we will follow-up with the patient on when necessary case.
[2018-04-14] MEDS: BUDESONIDE 0.5 MG/2 ML NEBU INHALATION SCH ×2 (07:47→19:25)
[2018-04-14] MEDS: FLUTICASONE 110 MCG INHALER INHALATION SCH ×2 (07:51→19:35)
[2018-04-14 08:13] LABS: Glucose,Whole Blood 118 mg/dL (75-99)
[2018-04-14 08:13] LABS: Glucose,Whole Blood 111 mg/dL (75-99)
[2018-04-14] MEDS: CALCIUM ACETATE 667 MG CAP PO SCH ×3 (08:57→17:26)
[2018-04-14] MEDS: METHADONE 10 MG TAB PO SCH (09:47)
[2018-04-14] MEDS: SODIUM BICARBONATE TAB 650 MG TAB PO SCH ×4 (09:51→21:40)
[2018-04-14] MEDS: PIPERACILLIN-TAZOBACTAM 3.375 GM in DEXTROSE/WATER 1 50ML.BAG IVPB SCH ×2 (09:52→21:46)
[2018-04-14] MEDS: DULoxetine HCL 30 MG CAPSULE.DR PO SCH ×3 (09:52→21:39)
[2018-04-14] MEDS: BETHANECHOL 25 MG TAB PO SCH ×4 (09:52→21:40)
[2018-04-14] MEDS: CLOTRIMAZOLE/BETAMETH 1-0.05% CREAM 45 GM TUBE TOPICAL SCH ×2 (09:52→21:47)
[2018-04-14] MEDS: PETROLATUM, WHITE OINT 50 GM TUBE TOPICAL SCH ×2 (09:52→21:48)
[2018-04-14] MEDS: NYSTATIN 100,000 UNIT/GM POWD 15 GM TOPICAL SCH ×2 (09:52→21:48)
[2018-04-14] MEDS: FAMOTIDINE 20 MG TAB PO SCH ×2 (09:52→10:08)
[2018-04-14] MEDS: ZINC OXIDE 20% OINT 28.4 GM TUBE TOPICAL SCH ×4 (09:53→21:48)
[2018-04-14] MEDS: PANTOPRAZOLE 40 MG/10 ML VIAL IVP SCH (09:53)
[2018-04-14] MEDS: HEPARIN SODIUM,PORCINE 5,000 UNIT/ML 1 ML VIAL SQ SCH ×2 (09:54→17:25)
--- NOTE | 2018-04-14 12:03 | XR ---
EXAMINATION TYPE: XR chest 1V portable DATE OF EXAM: 04/14/2018 COMPARISON: Prior chest dated 04/13/2018 HISTORY: Respiratory status, abnormal chest x-ray TECHNIQUE: Single frontal view of the chest is obtained. FINDINGS: Right-sided PICC line shows the distal tip at the level of the innominate vein on the righ t. There are overlying cardiac leads and tubing. Patient is rotated. There is no pleural effusion or pneumothorax seen. Perihilar bandlike area of increased attenuation in the left may reflect some lowe r lobe atelectasis. The cardiac silhouette size is stable, enlarged. The osseous structures are int act. IMPRESSION: Cardiomegaly. Probable basilar atelectasis.
[2018-04-14] MEDS ORDERED: FUROSEMIDE 10 MG/ML 10 ML VIAL IV STA (12:10)
--- NOTE | 2018-04-14 12:11 | P.PN ---
Subjective Patient is seen in follow for acute kidney injury. Her baseline creatinine is 1. It is up to 3.99 today. Patient presented to the hospital due to hypotension with systolic blood pressure in the 60s at the ECF. Patient was transferred to the ICU with persistent hypotension and lactic acidosis. She is currently maintained on normal saline at 125 mL an hour. She was also started on IV steroids. Cortisol level normal. Oral intake is poor. Remains oliguric. Vital signs are stable. General: The patient appeared well nourished and normally developed. HEENT: Head exam is unremarkable. Neck is without jugular venous distension. On BiPAP. LUNGS: Breath sounds decreased. HEART: Rate and Rhythm are regular. First and second heart sounds normal. No murmurs, rubs or gallops. ABDOMEN: Abdominal exam reveals normal bowel sounds. Non-tender and non- distended. No evidence of peritonitis. EXTREMITITES: 2+ edema. Objective - Vital Signs Vital signs: Vital Signs Temp 98.5 F 04/14/18 04:00 Pulse 92 04/14/18 08:04 Resp 22 04/14/18 07:00 BP 122/61 04/14/18 07:00 Pulse Ox 100 04/14/18 07:00 Intake & Output 04/13/18 04/14/18 04/14/18 18:59 06:59 18:59 Intake Total 1465.0 765 Output Total 91 76 Balance 1374.0 689 Weight 174.3 kg 181.9 kg 181.9 kg Intake: IV 1375.0 675 Piperacillin-Tazobactam 3 50.0 50 .375 gm In Dextrose/Water 1 50ml.bag @ 12.5 mls/hr IVPB Q8HR [facility] Rx#: [id number] Sodium Chloride 0.9% 1, 1325 625 000 ml @ 125 mls/hr IV . Q8H [facility] Rx#:[id number] Oral 90 90 Output: Urine 91 76 Other: Voiding Method Indwelling Catheter Indwelling Catheter - Labs CBC & Chem 7: 04/14/18 04:54 04/14/18 04:54 Labs: Abnormal Lab Results - Last 24 Hours (Table) 04/13/18 04/13/18 04/13/18 Range/Units 12:01 17:00 21:04 RBC (3.80-5.40) m/uL Hgb (11.4-16.0) gm/dL Hct (34.0-46.0) % MCHC (31.0-37.0) g/dL RDW (11.5-15.5) % Metamyelocytes # (Man) (0) k/uL Nucleated RBCs (0-0) /100 WBC Chloride (98-107) mmol/L Carbon Dioxide (22-30) mmol/L BUN (7-17) mg/dL Creatinine (0.52-1.04) mg/dL Glucose (74-99) mg/dL POC Glucose (mg/dL) 138 H 112 H 116 H (75-99) mg/dL Calcium (8.4-10.2) mg/dL Phosphorus (2.5-4.5) mg/dL Total Bilirubin (0.2-1.3) mg/dL AST (14-36) U/L ALT (9-52) U/L Alkaline Phosphatase (38-126) U/L Total Protein (6.3-8.2) g/dL Albumin (3.5-5.0) g/dL 04/14/18 04/14/18 04/14/18 Range/Units 04:54 04:54 07:03 RBC 3.04 L (3.80-5.40) m/uL Hgb 8.8 L (11.4-16.0) gm/dL Hct 29.0 L (34.0-46.0) % MCHC 30.4 L (31.0-37.0) g/dL RDW 18.1 H (11.5-15.5) % Metamyelocytes # (Man) 0.17 H (0) k/uL Nucleated RBCs 18 H (0-0) /100 WBC Chloride 108 H (98-107) mmol/L Carbon Dioxide 17 L (22-30) mmol/L BUN 23 H (7-17) mg/dL Creatinine 3.99 H (0.52-1.04) mg/dL Glucose 126 H (74-99) mg/dL POC Glucose (mg/dL) 118 H (75-99) mg/dL Calcium 7.5 L (8.4-10.2) mg/dL Phosphorus 6.0 H (2.5-4.5) mg/dL Total Bilirubin 2.9 H (0.2-1.3) mg/dL AST 208 H (14-36) U/L ALT 85 H (9-52) U/L Alkaline Phosphatase 383 H (38-126) U/L Total Protein 5.3 L (6.3-8.2) g/dL Albumin 2.7 L (3.5-5.0) g/dL 04/14/18 Range/Units 07:11 RBC (3.80-5.40) m/uL Hgb (11.4-16.0) gm/dL Hct (34.0-46.0) % MCHC (31.0-37.0) g/dL RDW (11.5-15.5) % Metamyelocytes # (Man) (0) k/uL Nucleated RBCs (0-0) /100 WBC Chloride (98-107) mmol/L Carbon Dioxide (22-30) mmol/L BUN (7-17) mg/dL Creatinine (0.52-1.04) mg/dL Glucose (74-99) mg/dL POC Glucose (mg/dL) 111 H (75-99) mg/dL Calcium (8.4-10.2) mg/dL Phosphorus (2.5-4.5) mg/dL Total Bilirubin (0.2-1.3) mg/dL AST (14-36) U/L ALT (9-52) U/L Alkaline Phosphatase (38-126) U/L Total Protein (6.3-8.2) g/dL Albumin (3.5-5.0) g/dL Assessment and Plan Plan: Assessment: 1. Acute kidney injury secondary to ATN secondary to hypotension. Creatinine up to 3.99 today. Baseline creatinine near 1. No hydronephrosis noted on renal ultrasound. She is noted to have sub-nephrotic proteinuria. 2. Proteinuria. Her albumin is also low. UPC 0.5. Rule out GN. Serologies negative. Urine eosinophils negative. 3. Metabolic acidosis secondary to acute kidney injury and IV fluids. 4. Edema. 5. Hypotension. This is due to to sepsis. Cortisol level normal. 6. Diabetes mellitus. Patient states this was diagnosed within the last 1 year. 7. UTI with urine culture positive for VRE. Infectious disease following. Vancomycin discontinued. 8. Hyperkalemia. This is due to acute kidney injury and metabolic acidosis. Potassium supplementation discontinued. Better. 9. Hyponatremia secondary to acute kidney injury. Better. 10. Hyperphosphatemia secondary to BOONE. 11. Systolic CHF with ejection fraction of 45-50% with moderate pulmonary hypertension. Plan: Continue with IV fluids for now. Lasix 80 mg IV once today. Strict I's and O's. Maintain oral sodium bicarbonate supplementation. Avoid nephrotoxins. If no improvement in renal function over the next few days, will consider kidney biopsy when she is more stable. No urgent need for any replacement therapy at this time. Patient is agreeable to start [employer] if needed. Will continue to assess on day-to-day basis. Maintain phoslo tid.
[2018-04-14 12:15] LABS: Glucose,Whole Blood 117 mg/dL (75-99)
--- NOTE | 2018-04-14 13:07 | P.PN ---
Subjective Progress Note Date: 04/14/18 Principal diagnosis: Sepsis shock UTI history pulmonary sarcoidosis More obtunded today. LFTs increased total bilirubin 2.9. AST 208. ALT 85. AP 383. Ammonia 18. Nursing reports difficulty obtaining accurate blood pressures sometimes systolically in the 80s and 90s sometimes over 100. Afebrile. Patient is not able to take oral medications or nutrition medicine is requesting Dobbhoff insertion. Objective - Vital Signs Vital signs: Vital Signs Temp 98.5 F 04/14/18 04:00 Pulse 92 04/14/18 08:04 Resp 22 04/14/18 07:00 BP 122/61 04/14/18 07:00 Pulse Ox 100 04/14/18 07:00 Intake & Output 04/13/18 04/14/18 04/14/18 18:59 06:59 18:59 Intake Total 1465.0 765 Output Total 91 76 Balance 1374.0 689 Weight 174.3 kg 181.9 kg 181.9 kg Intake: IV 1375.0 675 Piperacillin-Tazobactam 3 50.0 50 .375 gm In Dextrose/Water 1 50ml.bag @ 12.5 mls/hr IVPB Q8HR [facility] Rx#: [id number] Sodium Chloride 0.9% 1, 1325 625 000 ml @ 125 mls/hr IV . Q8H [facility] Rx#:[id number] Oral 90 90 Output: Urine 91 76 Other: Voiding Method Indwelling Catheter Indwelling Catheter - Exam General appearance: The patient is obtunded, in no acute distress not conversive. HET: Head is normocephalic and atraumatic. Pupils are equal and reactive. Oropharynx is clear without lesions. Neck: Supple without lymphadenopathy. Trachea midline. Heart: S1 S2. Regular rate and rhythm. Lungs: Bipap. Diminished throughout. Abdomen: Morbidly obese. Soft, nontender, nondistended with bowel sounds. No peritoneal signs. No palpable organomegaly or masses. Extremities: Chronic indwelling catheter. Lower extremity Gurwinder wrap's with edema. Neurological: No focal deficits. - Labs CBC & Chem 7: 04/14/18 04:54 04/14/18 04:54 Labs: Abnormal Lab Results - Last 24 Hours (Table) 04/13/18 04/13/18 04/14/18 Range/Units 17:00 21:04 04:54 RBC 3.04 L (3.80-5.40) m/uL Hgb 8.8 L (11.4-16.0) gm/dL Hct 29.0 L (34.0-46.0) % MCHC 30.4 L (31.0-37.0) g/dL RDW 18.1 H (11.5-15.5) % Metamyelocytes # (Man) 0.17 H (0) k/uL Nucleated RBCs 18 H (0-0) /100 WBC Chloride (98-107) mmol/L Carbon Dioxide (22-30) mmol/L BUN (7-17) mg/dL Creatinine (0.52-1.04) mg/dL Glucose (74-99) mg/dL POC Glucose (mg/dL) 112 H 116 H (75-99) mg/dL Calcium (8.4-10.2) mg/dL Phosphorus (2.5-4.5) mg/dL Total Bilirubin (0.2-1.3) mg/dL AST (14-36) U/L ALT (9-52) U/L Alkaline Phosphatase (38-126) U/L Total Protein (6.3-8.2) g/dL Albumin (3.5-5.0) g/dL 04/14/18 04/14/18 04/14/18 Range/Units 04:54 07:03 07:11 RBC (3.80-5.40) m/uL Hgb (11.4-16.0) gm/dL Hct (34.0-46.0) % MCHC (31.0-37.0) g/dL RDW (11.5-15.5) % Metamyelocytes # (Man) (0) k/uL Nucleated RBCs (0-0) /100 WBC Chloride 108 H (98-107) mmol/L Carbon Dioxide 17 L (22-30) mmol/L BUN 23 H (7-17) mg/dL Creatinine 3.99 H (0.52-1.04) mg/dL Glucose 126 H (74-99) mg/dL POC Glucose (mg/dL) 118 H 111 H (75-99) mg/dL Calcium 7.5 L (8.4-10.2) mg/dL Phosphorus 6.0 H (2.5-4.5) mg/dL Total Bilirubin 2.9 H (0.2-1.3) mg/dL AST 208 H (14-36) U/L ALT 85 H (9-52) U/L Alkaline Phosphatase 383 H (38-126) U/L Total Protein 5.3 L (6.3-8.2) g/dL Albumin 2.7 L (3.5-5.0) g/dL 04/14/18 Range/Units 12:04 RBC (3.80-5.40) m/uL Hgb (11.4-16.0) gm/dL Hct (34.0-46.0) % MCHC (31.0-37.0) g/dL RDW (11.5-15.5) % Metamyelocytes # (Man) (0) k/uL Nucleated RBCs (0-0) /100 WBC Chloride (98-107) mmol/L Carbon Dioxide (22-30) mmol/L BUN (7-17) mg/dL Creatinine (0.52-1.04) mg/dL Glucose (74-99) mg/dL POC Glucose (mg/dL) 117 H (75-99) mg/dL Calcium (8.4-10.2) mg/dL Phosphorus (2.5-4.5) mg/dL Total Bilirubin (0.2-1.3) mg/dL AST (14-36) U/L ALT (9-52) U/L Alkaline Phosphatase (38-126) U/L Total Protein (6.3-8.2) g/dL Albumin (3.5-5.0) g/dL Assessment and Plan (1) Elevated liver enzymes Narrative/Plan: 47-year-old female admitted with a BOONE HTN sepsis VRE UTI hypotension with underlying pulmonary sarcoidosis elevated liver enzymes. Etiology of acute elevated liver enzymes is multifactorial suspect a component of sepsis shock liver from hypotensive events leading up to hospitalization as well as possible medication induced. Liver function tests were within normal limits prior to admission. She has underlying hepatic steatosis, diabetes mellitus, morbid obesity, and is in the process of undergoing neurologic evaluation for possible sarcoidosis of the brain. Hepatic sarcoidosis can occur up to 70% of patients with underlying sarcoidosis. Elevated alkaline phosphatase levels can be 5-10 times the upper limit of normal, transaminases are usually mildly elevated compared to alkaline phosphatase. Most patients are asymptomatic and not all cases require treatment. Liver biopsy is necessary for confirmation of diagnosis to help differentiate sarcoidosis from other autoimmune and or granulomatous liver diseases. Presently there is no evidence of cirrhosis jaundice pruritus or right upper quadrant abdominal pain. Asymptomatic patients require no treatment whereas symptomatic patients would require corticosteroids or ursodeoxycholic acid. Current Visit: Yes Status: Acute Code(s): R74.8 - ABNORMAL LEVELS OF OTHER SERUM ENZYMES SNOMED Code(s): 191128612 Plan: 1. Patient is unable to meet her nutritional needs to receive medications at this time. Attending is requested Dobbhoff insertion. Gi service will reevaluate in am; pulmonary clearance will need to be obtained if EGD/Dobhoff placement is necessary. Suggest insertion of NGT for feeds/meds if Dobhoff can not be placed. 2. Liver function tests increased today will check PT/INR. Daily CMP. Supportive measures. We'll continue to follow. Assessment and plan a care discussed with Dr. Briceño
--- NOTE | 2018-04-14 14:47 | P.PN ---
<Jeanne Roca A - Last Filed: 04/14/18 14:28> Subjective Progress Note Date: 04/14/18 This is 47 years old female with past medical history significant for sarcoidosis, morbid obesity, diabetes mellitus and multiple comorbidities, residence of retirement who was recently discharged from [facility] presents today from retirement with hypotension, slight tachycardia and hypoxia. In the emergency department blood pressure was below 90/60, heart rate in the 110 area, oxygen was in the mid 80s patient was started on oxygen and blood work showed elevated creatinine patient was sent to VQ scan which showed intermediate probability with limited examination due to motion factor and patient was started on heparin drip for assumption of pulmonary embolism. Patient is poor historian and unable to provide detailed information and was refusing care per nursing staff since admission to the floor including her medication and using her BiPAP on an as-needed basis. Patient currently is denying chest pain, shortness breath, nausea, vomiting, abdominal pain or productive cough 04/10: Received call today from the nursing staff the patient was really sick, blood pressure was low and was lethargic and sleeping well on BiPAP most the morning and lactic acid was elevated at 5.8 last evening.. She was unable to take her medications or eat this morning. She has increased edema. Patient has only had 150 mL of urine output overnight. She does have a Lopez catheter in. There was no IV access. Patient has been seen by by nephrology and cortisol level ordered along with Solu-Cortef and Lasix 60 mg IV once. Prednisone was discontinued. Patient was transferred into the intensive care unit and consult requested with Dr. Robin for intensive care management. Methadone dose changed to 50 mg daily which is her current dose at [facility]. Diarrhea has resolved. 04/11: Repeat chest x-ray reveals stable cardiomegaly. PICC placement. Patient has been seen by Dr. Colon and vancomycin and daptomycin started, continue Zosyn. Santyl to lower extremity cellulitis. Patient has been seen by Dr. Robin with concern for possible left lower lobe pneumonia, small left pleural effusion and dehydration. This morning, Dr. Moran ordered Lasix 40 mg IV once , IV dextrose 50% and regular insulin. Cortisol level was normal. Steroids are Solu-Medrol 60 mg every 6 hours. Midodrine was started yesterday for blood pressure support. Blood pressure is much improved today. Hemoglobin is 9.3, sodium 131 and potassium 5.3, creatinine 2.99. Capillary blood glucose running between 117 and 134. Lactic acid is now down to 1.9. Vancomycin level 25.6. Patient has been hemodynamically stable, afebrile. Patient has been on BiPAP and this morning is on nasal cannula, she remains lethargic but more alert from yesterday. Lopez catheter is in place. She continues to have lower extremity edema and now with weeping. No diarrhea. Patient has not had a bowel movement since 04/10. Urine output has been adequate at 50 mL per hour for the past 4 hours. She is complaining of nausea and abdominal discomfort for which lipase and CAT scan of the abdomen and pelvis ordered with oral contrast only. 04/12: Patient remains in intensive care unit. She has been hemodynamically stable and Midodrine will be discontinued. Lopez catheter remains in place with good urine output. She had a large bowel movement last evening and a small soft bowel movement today. Creatinine is 3.36 and BUN 17.. Heart rates have been elevated. Patient is more alert today from yesterday. GI consult added for elevated liver function tests and abdominal ultrasound ordered. 04/13: Cardiology consult was added yesterday due to tachycardia and patient was started on Lopressor 12.5 mg twice daily and hold for systolic blood pressure less than 90. TSH was 1.620. She has been on BiPAP during the night. Abdominal ultrasound reveals hepatomegaly correlate for hepatic steatosis, diffuse hepatocellular disease or hepatitis. There is ringing down artifact involving the gallbladder wall which can occasionally be seen with adenomyomatosis. Repeat liver function tests are increasing with total bilirubin 1.8, AST 82, ALT 54, alkaline phosphatase 278. GI is following. BUN 20 and creatinine 3.67, urine output low. She has epigastric tenderness and protonix added to omeprazole. Patient eating very little and refused nephro today. She is cleared to be transferred to Cardiac Step down. 04/14: Patient is more lethargic today. She is refusing to open her mouth. She has had no oral medications nor oral intake. Yesterday she ate a little bit of fluid and Magic cups. She is currently on BiPAP at FiO2 of 35%. Urine output by the time of evaluation was only 25-30 mL. Lasix 80 mg IV ordered by Dr. Moran. Patient may require hemodialysis if renal function does not improve. Today creatinine is at 3.99. Oral sodium bicarb will be switched over to drip. GI is following and has been asked to place D[facility]. Ammonia level came back normal at 18. Liver function tests are also worsening. Review Of Systems: Constitutional: No fever, no chills, no night sweats. +weakness, +fatigue, + lethargy. + daytime sleepiness. EENT: No headache. No epistaxis. No sore throat. Lungs: + shortness of breath, + cough, no sputum production. No wheezing. Cardiovascular: No chest pain, + lower extremity edema. No palpitations. No paroxysmal nocturnal dyspnea. No orthopnea. No lightheadedness or dizziness. No syncopal episodes. Abdominal: +abdominal pain. No nausea, vomiting. No diarrhea. No constipation. No bloody or tarry stools. + loss of appetite. Genitourinary: No dysuria, increased frequency, urgency. + urinary retention. Musculoskeletal: + myalgias. + muscle weakness, + gait dysfunction. Integumentary: No rash or pruritus. + wheeping lower legs Neurological: + mental status change. Endocrine: No abnormal blood sugars. Objective - Vital Signs Vital signs: Vital Signs Temp 98.5 F 04/14/18 04:00 Pulse 92 04/14/18 08:04 Resp 22 04/14/18 07:00 BP 122/61 04/14/18 07:00 Pulse Ox 100 04/14/18 07:00 Intake & Output 04/13/18 04/14/18 04/14/18 18:59 06:59 18:59 Intake Total 1465.0 765 Output Total 91 76 Balance 1374.0 689 Weight 174.3 kg 181.9 kg 181.9 kg Intake: IV 1375.0 675 Piperacillin-Tazobactam 3 50.0 50 .375 gm In Dextrose/Water 1 50ml.bag @ 12.5 mls/hr IVPB Q8HR [facility] Rx#: [id number] Sodium Chloride 0.9% 1, 1325 625 000 ml @ 125 mls/hr IV . Q8H [facility] Rx#:[id number] Oral 90 90 Output: Urine 91 76 Other: Voiding Method Indwelling Catheter Indwelling Catheter - Exam Gen: This is a morbidly obese 47-year-old female. She is in ICU bed and appears to be in no acute distress. HEENT: Head is atraumatic, normocephalic. Pupils equal, round. Sclerae is anicteric. Hearing grossly normal. NECK: Supple. No JVD. No lymphadenopathy. No thyromegaly. LUNGS: Diminished bilaterally. Clear to auscultation. No wheezes or rhonchi. No intercostal retractions. HEART: Regular rate and rhythm. No murmur. ABDOMEN: Morbidly obese. Soft. Bowel sounds are present. No masses. Positive epigastric tenderness. Lopez catheter draining clear benjy urine. EXTREMITIES: 2+ pedal edema with serous weeping. No calf tenderness. NEUROLOGICAL: Patient is arousable and lethargic. Generalized weakness. - Labs CBC & Chem 7: 04/14/18 04:54 04/14/18 04:54 Labs: Abnormal Lab Results - Last 24 Hours (Table) 04/13/18 04/13/18 04/13/18 Range/Units 12:01 17:00 21:04 RBC (3.80-5.40) m/uL Hgb (11.4-16.0) gm/dL Hct (34.0-46.0) % MCHC (31.0-37.0) g/dL RDW (11.5-15.5) % Metamyelocytes # (Man) (0) k/uL Nucleated RBCs (0-0) /100 WBC Chloride (98-107) mmol/L Carbon Dioxide (22-30) mmol/L BUN (7-17) mg/dL Creatinine (0.52-1.04) mg/dL Glucose (74-99) mg/dL POC Glucose (mg/dL) 138 H 112 H 116 H (75-99) mg/dL Calcium (8.4-10.2) mg/dL Phosphorus (2.5-4.5) mg/dL Total Bilirubin (0.2-1.3) mg/dL AST (14-36) U/L ALT (9-52) U/L Alkaline Phosphatase (38-126) U/L Total Protein (6.3-8.2) g/dL Albumin (3.5-5.0) g/dL 10/26/18 10/26/18 10/26/18 Range/Units 04:54 04:54 07:03 RBC 3.04 L (3.80-5.40) m/uL Hgb 8.8 L (11.4-16.0) gm/dL Hct 29.0 L (34.0-46.0) % MCHC 30.4 L (31.0-37.0) g/dL RDW 18.1 H (11.5-15.5) % Metamyelocytes # (Man) 0.17 H (0) k/uL Nucleated RBCs 18 H (0-0) /100 WBC Chloride 108 H (98-107) mmol/L Carbon Dioxide 17 L (22-30) mmol/L BUN 23 H (7-17) mg/dL Creatinine 3.99 H (0.52-1.04) mg/dL Glucose 126 H (74-99) mg/dL POC Glucose (mg/dL) 118 H (75-99) mg/dL Calcium 7.5 L (8.4-10.2) mg/dL Phosphorus 6.0 H (2.5-4.5) mg/dL Total Bilirubin 2.9 H (0.2-1.3) mg/dL AST 208 H (14-36) U/L ALT 85 H (9-52) U/L Alkaline Phosphatase 383 H (38-126) U/L Total Protein 5.3 L (6.3-8.2) g/dL Albumin 2.7 L (3.5-5.0) g/dL 04/14/18 Range/Units 07:11 RBC (3.80-5.40) m/uL Hgb (11.4-16.0) gm/dL Hct (34.0-46.0) % MCHC (31.0-37.0) g/dL RDW (11.5-15.5) % Metamyelocytes # (Man) (0) k/uL Nucleated RBCs (0-0) /100 WBC Chloride (98-107) mmol/L Carbon Dioxide (22-30) mmol/L BUN (7-17) mg/dL Creatinine (0.52-1.04) mg/dL Glucose (74-99) mg/dL POC Glucose (mg/dL) 111 H (75-99) mg/dL Calcium (8.4-10.2) mg/dL Phosphorus (2.5-4.5) mg/dL Total Bilirubin (0.2-1.3) mg/dL AST (14-36) U/L ALT (9-52) U/L Alkaline Phosphatase (38-126) U/L Total Protein (6.3-8.2) g/dL Albumin (3.5-5.0) g/dL Assessment and Plan Plan: 1. Sepsis with septic shock secondary to urinary tract infection with lactic acidosis. Patient transferred to the intensive care unit. PICC line ordered for IV access. Consults with Dr. Robin and Dr. Colon appreciated. Antibiotics changed to daptomycin and Zosyn. IVF per Dr. Moran 2. Intermediate probability of pulmonary embolism ruled out. Pulmonary medicine is following 3. Acute respiratory failure on chronic respiratory failure with hypoxia. Continue albuterol nebulizer treatments every 6 hours, DuoNeb treatments every 4 hours as needed, Pulmicort twice daily, Flovent, Solu-Medrol. 4. Morbid obesity. 5. Neurogenic bladder with incontinence. Urinary retention requiring Lopez catheter placement. 6. Diabetes mellitus type 2 insulin-dependent. Metformin on hold. NovoLog scale before meals and at bedtime. 7. Debility and deconditioning. 8. Dehydration. 9. Acute kidney injury and ATN likely secondary to dehydration with hyperkalemia. Consult with nephrology appreciated. Patient was given D50, regular insulin, Lasix. Daily dosing of lasix. Currently on IVF. 10. Sarcoidosis following with [facility] on daily dose of steroids. 11. Hyperkalemia 12. Metabolic encephalopathy secondary to sepsis, improving. 13. Chronic pain. Methadone currently at 50 mg daily 14. Abdominal pain with worsening liver function tests mostly secondary to heart failure and congestion.. 15. Severe protein calorie malnutrition. Request a GI place [facility] and start tube feedings. Dietitian is following. Pre-albumin ordered. 16. Metabolic acidosis. Sodium bicarb will be switched over to IV until Dobbhoff is placed. 17. GERD and possible gastritis. Continue Pepcid and Protonix CODE STATUS: Full code Discharge plan: Return to [facility] as long-term resident. Patient is known to have guardian. Impression and plan of care have been directed as dictated by the signing physician. Jeanne Roca nurse practitioner acting as scribe for signing physician. <Kaylan Vizcarra Filed: 04/23/18 23:14> Objective - Vital Signs Vital signs: Vital Signs Temp 97.6 F 04/23/18 20:00 Pulse 96 04/23/18 23:00 Resp 25 H 04/23/18 23:00 BP 125/80 04/23/18 12:28 Pulse Ox 98 04/23/18 23:00 Intake & Output 04/23/18 04/23/18 04/24/18 06:59 18:59 06:59 Intake Total 2159.934 484 Output Total 12 2 Balance 2147.934 482 Weight Intake: IV 672 280 Sodium Chloride 0.9% 1, 600 250 000 ml @ 50 mls/hr IV . Q20H [facility] Rx#:[id number] pressure bag 72 30 Intake, IV Titration 276.934 Amount Norepinephrine 16 mg In Sodium Chloride 0.9% 250 ml @ Titrate IV .Q0M [facility] Rx#:[id number] Propofol 1,000 mg In 276.934 Empty Bag 1 bag @ Titrate IV .Q0M [facility] Rx#: [id number] Tube Feeding 561 204 Blood Product 620 Rc Pheresis As-3 Unit 310 [id number] Rc Pheresis As-3 Unit 310 [id number] Other 30 Output: Urine 10 2 Stool 2 Other: Voiding Method Indwelling Catheter Indwelling Catheter # Voids ABP, PAP, CO, CI - Last Documented Arterial Blood Pressure 118/60 - Labs CBC & Chem 7: 04/23/18 14:20 04/23/18 05:30 Labs: Abnormal Lab Results - Last 24 Hours (Table) 04/20/18 04/23/18 04/23/18 Range/Units 20:06 04:22 05:30 WBC (3.8-10.6) k/uL RBC (3.80-5.40) m/uL Hgb (11.4-16.0) gm/dL Hct (34.0-46.0) % RDW (11.5-15.5) % Plt Count (150-450) k/uL Neutrophils # (Manual) (1.3-7.7) k/uL Metamyelocytes # (Man) (0) k/uL Myelocytes # (Manual) (0) k/uL Promyelocytes # (Man) (0) k/uL Nucleated RBCs (0-0) /100 WBC APTT (22.0-30.0) sec ABG Total CO2 (19-24) mmol/L ABG O2 Saturation (94-97) % Sodium 136 L (137-145) mmol/L Carbon Dioxide 20 L (22-30) mmol/L BUN 18 H (7-17) mg/dL Creatinine 1.35 H (0.52-1.04) mg/dL Glucose 263 H (74-99) mg/dL POC Glucose (mg/dL) 259 H (75-99) mg/dL Calcium 6.9 L (8.4-10.2) mg/dL Phosphorus 1.7 L (2.5-4.5) mg/dL Total Bilirubin 8.0 H (0.2-1.3) mg/dL AST 524 H (14-36) U/L ALT 231 H (9-52) U/L Alkaline Phosphatase 331 H (38-126) U/L Lactate Dehydrogenase (313-618) U/L Total Protein 4.5 L (6.3-8.2) g/dL Albumin 2.8 L (3.5-5.0) g/dL Crossmatch See Detail 04/23/18 04/23/18 04/23/18 Range/Units 05:36 07:43 08:16 WBC 27.0 H (3.8-10.6) k/uL RBC 1.84 L (3.80-5.40) m/uL Hgb 5.5 L* D (11.4-16.0) gm/dL Hct 16.6 L* (34.0-46.0) % RDW 18.2 H (11.5-15.5) % Plt Count 88 L (150-450) k/uL Neutrophils # (Manual) 19.70 H (1.3-7.7) k/uL Metamyelocytes # (Man) 2.43 H (0) k/uL Myelocytes # (Manual) 2.97 H (0) k/uL Promyelocytes # (Man) 0.27 H (0) k/uL Nucleated RBCs 23 H (0-0) /100 WBC APTT (22.0-30.0) sec ABG Total CO2 25 H (19-24) mmol/L ABG O2 Saturation 97.8 H (94-97) % Sodium (137-145) mmol/L Carbon Dioxide (22-30) mmol/L BUN (7-17) mg/dL Creatinine (0.52-1.04) mg/dL Glucose (74-99) mg/dL POC Glucose (mg/dL) 218 H (75-99) mg/dL Calcium (8.4-10.2) mg/dL Phosphorus (2.5-4.5) mg/dL Total Bilirubin (0.2-1.3) mg/dL AST (14-36) U/L ALT (9-52) U/L Alkaline Phosphatase (38-126) U/L Lactate Dehydrogenase (313-618) U/L Total Protein (6.3-8.2) g/dL Albumin (3.5-5.0) g/dL Crossmatch 04/23/18 04/23/18 04/23/18 Range/Units 11:52 14:20 14:20 WBC 25.0 H (3.8-10.6) k/uL RBC 2.59 L (3.80-5.40) m/uL Hgb 8.4 L D (11.4-16.0) gm/dL Hct 23.1 L (34.0-46.0) % RDW 16.9 H (11.5-15.5) % Plt Count 71 L (150-450) k/uL Neutrophils # (Manual) 21.50 H (1.3-7.7) k/uL Metamyelocytes # (Man) 1.50 H (0) k/uL Myelocytes # (Manual) 1.00 H (0) k/uL Promyelocytes # (Man) (0) k/uL Nucleated RBCs 33 H (0-0) /100 WBC APTT (22.0-30.0) sec ABG Total CO2 (19-24) mmol/L ABG O2 Saturation (94-97) % Sodium (137-145) mmol/L Carbon Dioxide (22-30) mmol/L BUN (7-17) mg/dL Creatinine (0.52-1.04) mg/dL Glucose (74-99) mg/dL POC Glucose (mg/dL) 204 H (75-99) mg/dL Calcium (8.4-10.2) mg/dL Phosphorus (2.5-4.5) mg/dL Total Bilirubin (0.2-1.3) mg/dL AST (14-36) U/L ALT (9-52) U/L Alkaline Phosphatase (38-126) U/L Lactate Dehydrogenase 6098 H (313-618) U/L Total Protein (6.3-8.2) g/dL Albumin (3.5-5.0) g/dL Crossmatch 04/23/18 04/23/18 04/23/18 Range/Units 14:20 17:15 20:44 WBC (3.8-10.6) k/uL RBC (3.80-5.40) m/uL Hgb (11.4-16.0) gm/dL Hct (34.0-46.0) % RDW (11.5-15.5) % Plt Count (150-450) k/uL Neutrophils # (Manual) (1.3-7.7) k/uL Metamyelocytes # (Man) (0) k/uL Myelocytes # (Manual) (0) k/uL Promyelocytes # (Man) (0) k/uL Nucleated RBCs (0-0) /100 WBC APTT 39.6 H (22.0-30.0) sec ABG Total CO2 (19-24) mmol/L ABG O2 Saturation (94-97) % Sodium (137-145) mmol/L Carbon Dioxide (22-30) mmol/L BUN (7-17) mg/dL Creatinine (0.52-1.04) mg/dL Glucose (74-99) mg/dL POC Glucose (mg/dL) 223 H 162 H (75-99) mg/dL Calcium (8.4-10.2) mg/dL Phosphorus (2.5-4.5) mg/dL Total Bilirubin (0.2-1.3) mg/dL AST (14-36) U/L ALT (9-52) U/L Alkaline Phosphatase (38-126) U/L Lactate Dehydrogenase (313-618) U/L Total Protein (6.3-8.2) g/dL Albumin (3.5-5.0) g/dL Crossmatch Microbiology - Last 24 Hours (Table) 04/21/18 00:29 Gram Stain - Final Sputum Sputum Culture - Final Pseudomonas aeruginosa Carmel albicans Assessment and Plan Plan: addendum diagnosis: diagnosis should reflect acute kidney failure secondary to septic shock, ATN chronic steroids 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
--- NOTE | 2018-04-14 15:31 | P.PN ---
Subjective Progress Note Date: 04/13/18 (Late entry note) Principal diagnosis: Severe sepsis and septic shock associated with urinary tract infection, pulmonary sarcoidosis, severe morbid obesity, sleep disorder breathing and sleep apnea, uncontrolled hyperglycemia and type 2 diabetes mellitus, acute renal failure, chronic pain syndrome 04/12/2018, patient seen eval examined during the rounds clinically patient is doing better in terms of hemodynamics but remains intermittently tachycardic which is not much change from baseline blood pressure has been stable, patient did not use her BiPAP machine last night, has been more somnolent she is lethargic but readily arousable, she does answer in simple words, moving all 4 extremities, she was noted to have snoring as well as apneic events, family is present at bedside and have discussed with them at length about importance of using the BiPAP machine each night and when necessary during the day will put the BiPAP again with a setting of 14/5 with 35% oxygen, potassium is up slightly urine culture is positive for Enterococcus faecium/VRE, patient is on daptomycin and Zosyn, IV fluids are 100 mL an hour, BUN/creatinine slightly up and baseline 04/11/2018, patient seen eval examined in ICU patient the continue to have issues associated aches and pain she remains a poor historian however does describe generalized pain throughout the body, patient has been nauseous as well a computed tomography scan of the abdominal and pelvis is being ordered, her lactic acid has improved with the fluid resuscitation, patient has been on broad-spectrum antibiotics I urine culture is positive for enterococcus Ammann labs from today reviewed sodium is 1:30 and production of 5.3 her BUN/ creatinine is 15 and 2.99, overall sodium remains stable hyperkalemia is present renal functions continued to be marginal liters lactic acid check was 1.9, chest x-ray remains stable PICC line site is stable borderline cardiomegaly , patient is getting broad-spectrum antibiotics with Vanco mycin, daptomycin and Zosyn patient is a getting therapy for the lower extremity cellulitis as well along with local care 47-year-old morbidly obese female who was seen evaluated examined in the ICU this patient has been a resident of [facility], patient has problems associated with chronic renal insufficiency, sarcoidosis severely morbidly obese was found to have blood pressure only 60s systolic at the [facility] EMS was notified it appears that blood pressure has been extremely fluctuating it was noted to be 90 by EMS however subsequently was in 150 patient was tachypneic and tachycardic as well no chest pain was present overall patient is a poor historian, patient was eventually admitted into the hospital from the emergency department Robert patient underwent a VQ scan with indeterminate findings, CT angiogram be performed due to elevated creatinine Robert patient has been using BiPAP off and on with a IPAP of 14 and EPAP of 5 and 35% oxygen, patient has been comfortable now she has a low urine output she is getting a fluid challenge of 500 mL crystalloid due to elevated lactic acid followed by 100 mL an hour patient is also on Solu-Cortef which is being switched to Solu-Medrol, currently patient is on bronchodilators and continuation of home medications, heparin for DVT prophylaxis, due to chronic hypertension patient is on midodrine along with broad-spectrum antibiotics along with Zosyn and vancomycin, urine is positive for group D enterococcus, other significant labs were noted to have a lactic acid of 5.8 came down to 3.2 , BUN/creatinine remains stable 40 and 2.93 much chest x-ray revealed cardiomegaly small left-sided pleural effusion with subsegmental atelectasis, patient was transferred to ICU for hypotension and low urine output and elevated lactic acid where she was seen evaluated examined Objective - Vital Signs Vital signs: Vital Signs Temp 98.5 F 04/14/18 04:00 Pulse 92 04/14/18 08:04 Resp 22 04/14/18 07:00 BP 122/61 04/14/18 07:00 Pulse Ox 100 04/14/18 07:00 Intake & Output 04/13/18 04/14/18 04/14/18 18:59 06:59 18:59 Intake Total 1465.0 765 Output Total 91 76 Balance 1374.0 689 Weight 174.3 kg 181.9 kg 181.9 kg Intake: IV 1375.0 675 Piperacillin-Tazobactam 3 50.0 50 .375 gm In Dextrose/Water 1 50ml.bag @ 12.5 mls/hr IVPB Q8HR L[facility]LIE Rx#: [id number] Sodium Chloride 0.9% 1, 1325 625 000 ml @ 125 mls/hr IV . Q8H L[facility]LIE Rx#:[id number] Oral 90 90 Output: Urine 91 76 Other: Voiding Method Indwelling Catheter Indwelling Catheter - Exam Gen: This is a morbidly obese 47-year-old [place] female. She is in bed and appears to be in no acute distress, patient sitting upright on the bed leaning backwards awake no obvious distress HEENT: Head is atraumatic, normocephalic. Pupils equal, round. Sclerae is anicteric. Hearing grossly normal. NECK: Supple. No JVD. No lymphadenopathy. No thyromegaly. LUNGS: Diminished bilaterally. Clear to auscultation. No wheezes or rhonchi. No intercostal retractions. HEART: Regular rate and rhythm. No murmur. ABDOMEN: Morbidly obese. Soft. Bowel sounds are present. No masses. No tenderness. EXTREMITIES: 2+ pedal edema. Chronic skin inflammatory changes early cellulitis cannot be excluded No calf tenderness. No redness. NEUROLOGICAL: Patient is awake, alert and oriented x2. Generalized weakness. - Labs CBC & Chem 7: 04/14/18 04:54 04/14/18 04:54 Labs: Abnormal Lab Results - Last 24 Hours (Table) 04/13/18 04/13/18 04/14/18 Range/Units 17:00 21:04 04:54 RBC 3.04 L (3.80-5.40) m/uL Hgb 8.8 L (11.4-16.0) gm/dL Hct 29.0 L (34.0-46.0) % MCHC 30.4 L (31.0-37.0) g/dL RDW 18.1 H (11.5-15.5) % Metamyelocytes # (Man) 0.17 H (0) k/uL Nucleated RBCs 18 H (0-0) /100 WBC Chloride (98-107) mmol/L Carbon Dioxide (22-30) mmol/L BUN (7-17) mg/dL Creatinine (0.52-1.04) mg/dL Glucose (74-99) mg/dL POC Glucose (mg/dL) 112 H 116 H (75-99) mg/dL Calcium (8.4-10.2) mg/dL Phosphorus (2.5-4.5) mg/dL Total Bilirubin (0.2-1.3) mg/dL AST (14-36) U/L ALT (9-52) U/L Alkaline Phosphatase (38-126) U/L Total Protein (6.3-8.2) g/dL Albumin (3.5-5.0) g/dL 04/14/18 04/14/18 04/14/18 Range/Units 04:54 07:03 07:11 RBC (3.80-5.40) m/uL Hgb (11.4-16.0) gm/dL Hct (34.0-46.0) % MCHC (31.0-37.0) g/dL RDW (11.5-15.5) % Metamyelocytes # (Man) (0) k/uL Nucleated RBCs (0-0) /100 WBC Chloride 108 H (98-107) mmol/L Carbon Dioxide 17 L (22-30) mmol/L BUN 23 H (7-17) mg/dL Creatinine 3.99 H (0.52-1.04) mg/dL Glucose 126 H (74-99) mg/dL POC Glucose (mg/dL) 118 H 111 H (75-99) mg/dL Calcium 7.5 L (8.4-10.2) mg/dL Phosphorus 6.0 H (2.5-4.5) mg/dL Total Bilirubin 2.9 H (0.2-1.3) mg/dL AST 208 H (14-36) U/L ALT 85 H (9-52) U/L Alkaline Phosphatase 383 H (38-126) U/L Total Protein 5.3 L (6.3-8.2) g/dL Albumin 2.7 L (3.5-5.0) g/dL 04/14/18 Range/Units 12:04 RBC (3.80-5.40) m/uL Hgb (11.4-16.0) gm/dL Hct (34.0-46.0) % MCHC (31.0-37.0) g/dL RDW (11.5-15.5) % Metamyelocytes # (Man) (0) k/uL Nucleated RBCs (0-0) /100 WBC Chloride (98-107) mmol/L Carbon Dioxide (22-30) mmol/L BUN (7-17) mg/dL Creatinine (0.52-1.04) mg/dL Glucose (74-99) mg/dL POC Glucose (mg/dL) 117 H (75-99) mg/dL Calcium (8.4-10.2) mg/dL Phosphorus (2.5-4.5) mg/dL Total Bilirubin (0.2-1.3) mg/dL AST (14-36) U/L ALT (9-52) U/L Alkaline Phosphatase (38-126) U/L Total Protein (6.3-8.2) g/dL Albumin (3.5-5.0) g/dL Assessment and Plan Assessment: Acute hypoxic and hypercapnic respiratory failure Severe sepsis and septic shock related to enterococcus urinary tract infection with some complaint component from cellulitis of the both lower extremity Developing cellulitis of the both lower extremity Elevated lactic acid/metabolic acidosis multifactorial associated with acute on chronic renal failure, urinary tract infection Pulmonary sarcoidosis with possible left lower lobe pneumonia Somnolence and lethargy due to multifactorial processes including methadone advised to cut down the dose of methadone to half and to stop if patient is somnolent Small left-sided pleural effusion Dehydration associated with intravascular volume depletion patient is undergoing crystalloid challenge Severe morbid obesity and obstructive sleep apnea Acute on Chronic renal failure stage IV jackman appears to be volume depleted we' ll do a challenge of fluid see if urine output will improve if not improving next 24-48 hours agree with renal plan of hemodialysis/ultrafiltration Plan: Continue BiPAP he is night and when necessary during the day Will reinitiate BiPAP right now, we'll keep patient in ICU Gentle rehydration Fluid bolus with crystalloid as needed and tolerated Continue broad-spectrum antibiotics Ammann adjusted accordingly DVT and peptic ulcer disease prophylaxis IV steroids Monitor labs and radiographic studies ordered for tomorrow, further recommendations pending plan of care as per clinical response of the patient Time with Patient: Greater than 30
[2018-04-14 15:40] LABS: ABG Base Excess -11.3 mmol/L; ABG HCO3 16 mmol/L (21-25); ABG Oxygen Saturation 99.4 % (94-97); ABG PCO2 36 mmHg (35-45); ABG PH 7.26 (7.35-7.45); ABG PO2 145 mmHg (83-108); ABG TCO2 17 mmol/L (19-24)
--- NOTE | 2018-04-14 15:46 | P.PN ---
Subjective Progress Note Date: 04/14/18 Principal diagnosis: Severe sepsis and septic shock associated with urinary tract infection, pulmonary sarcoidosis, severe morbid obesity, sleep disorder breathing and sleep apnea, uncontrolled hyperglycemia and type 2 diabetes mellitus, acute renal failure, chronic pain syndrome , 04/14/2018 Patient has been more lethargic throughout the day, has been on BiPAP 14/6 with 35% oxygen patient is gently being rehydrated patient does have diffuse anasarca however chest x-ray continue to be normal with normal heart size no effusion is seen him a subtle basal atelectasis cannot be excluded, and labs from today reviewed white cell count remains stable hemoglobin is unchanged platelet count stable as well, renal functions remains poor BUN/ creatinine continued to get worse 23 and 3.99 urine output is very minimal, patient has not received her methadone today, recommend to DC methadone, it appears that patient may need dialysis/ultrafiltration for generalized anasarca and worsening renal failure 04/13/2018, patient seen eval reexamined during the rounds care plan discussed the renal service patient's chest x-ray unremarkable oxygen is stable, patient remains on BiPAP as needed along with oxygen patient has not been using the BiPAP machine very regularly have discussed with the family as well as patient importance to using the BiPAP regularly, I have also advised to stop or discontinue methadone as it may be interfering with the mental status for now dose has been cut down to half, labs reviewed medications reviewed 04/12/2018, patient seen eval examined during the rounds clinically patient is doing better in terms of hemodynamics but remains intermittently tachycardic which is not much change from baseline blood pressure has been stable, patient did not use her BiPAP machine last night, has been more somnolent she is lethargic but readily arousable, she does answer in simple words, moving all 4 extremities, she was noted to have snoring as well as apneic events, family is present at bedside and have discussed with them at length about importance of using the BiPAP machine each night and when necessary during the day will put the BiPAP again with a setting of 14/5 with 35% oxygen, potassium is up slightly urine culture is positive for Enterococcus faecium/VRE, patient is on daptomycin and Zosyn, IV fluids are 100 mL an hour, BUN/creatinine slightly up and baseline 04/11/2018, patient seen eval examined in ICU patient the continue to have issues associated aches and pain she remains a poor historian however does describe generalized pain throughout the body, patient has been nauseous as well a computed tomography scan of the abdominal and pelvis is being ordered, her lactic acid has improved with the fluid resuscitation, patient has been on broad-spectrum antibiotics I urine culture is positive for enterococcus Ammann labs from today reviewed sodium is 1:30 and production of 5.3 her BUN/ creatinine is 15 and 2.99, overall sodium remains stable hyperkalemia is present renal functions continued to be marginal liters lactic acid check was 1.9, chest x-ray remains stable PICC line site is stable borderline cardiomegaly , patient is getting broad-spectrum antibiotics with Vanco mycin, daptomycin and Zosyn patient is a getting therapy for the lower extremity cellulitis as well along with local care 47-year-old morbidly obese female who was seen evaluated examined in the ICU this patient has been a resident of [facility], patient has problems associated with chronic renal insufficiency, sarcoidosis severely morbidly obese was found to have blood pressure only 60s systolic at the [facility] EMS was notified it appears that blood pressure has been extremely fluctuating it was noted to be 90 by EMS however subsequently was in 150 patient was tachypneic and tachycardic as well no chest pain was present overall patient is a poor historian, patient was eventually admitted into the hospital from the emergency department [place] patient underwent a VQ scan with indeterminate findings, CT angiogram be performed due to elevated creatinine [place] patient has been using BiPAP off and on with a IPAP of 14 and EPAP of 5 and 35% oxygen, patient has been comfortable now she has a low urine output she is getting a fluid challenge of 500 mL crystalloid due to elevated lactic acid followed by 100 mL an hour patient is also on Solu-Cortef which is being switched to Solu-Medrol, currently patient is on bronchodilators and continuation of home medications, heparin for DVT prophylaxis, due to chronic hypertension patient is on midodrine along with broad-spectrum antibiotics along with Zosyn and vancomycin, urine is positive for group D enterococcus, other significant labs were noted to have a lactic acid of 5.8 came down to 3.2 , BUN/creatinine remains stable 40 and 2.93 much chest x-ray revealed cardiomegaly small left-sided pleural effusion with subsegmental atelectasis, patient was transferred to ICU for hypotension and low urine output and elevated lactic acid where she was seen evaluated examined Objective - Vital Signs Vital signs: Vital Signs Temp 98.5 F 04/14/18 04:00 Pulse 92 04/14/18 08:04 Resp 22 04/14/18 07:00 BP 122/61 04/14/18 07:00 Pulse Ox 100 04/14/18 07:00 Intake & Output 04/13/18 04/14/18 04/14/18 18:59 06:59 18:59 Intake Total 1465.0 765 Output Total 91 76 Balance 1374.0 689 Weight 174.3 kg 181.9 kg 181.9 kg Intake: IV 1375.0 675 Piperacillin-Tazobactam 3 50.0 50 .375 gm In Dextrose/Water 1 50ml.bag @ 12.5 mls/hr IVPB Q8HR [facility] Rx#: [id number] Sodium Chloride 0.9% 1, 1325 625 000 ml @ 125 mls/hr IV . Q8H LESLIE Rx#:[id number] Oral 90 90 Output: Urine 91 76 Other: Voiding Method Indwelling Catheter Indwelling Catheter - Exam Gen: This is a morbidly obese 47-year-old [place] female. She is in bed and appears to be in no acute distress, patient sitting upright on the bed leaning backwards awake no obvious distress HEENT: Head is atraumatic, normocephalic. Pupils equal, round. Sclerae is anicteric. Hearing grossly normal. NECK: Supple. No JVD. No lymphadenopathy. No thyromegaly. LUNGS: Diminished bilaterally. Clear to auscultation. No wheezes or rhonchi. No intercostal retractions. HEART: Regular rate and rhythm. No murmur. ABDOMEN: Morbidly obese. Soft. Bowel sounds are present. No masses. No tenderness. EXTREMITIES: 2+ pedal edema. Chronic skin inflammatory changes early cellulitis cannot be excluded No calf tenderness. No redness. NEUROLOGICAL: Patient is awake, alert and oriented x2. Generalized weakness. - Labs CBC & Chem 7: 04/14/18 04:54 04/14/18 04:54 Labs: Abnormal Lab Results - Last 24 Hours (Table) 04/13/18 04/13/18 04/14/18 Range/Units 17:00 21:04 04:54 RBC 3.04 L (3.80-5.40) m/uL Hgb 8.8 L (11.4-16.0) gm/dL Hct 29.0 L (34.0-46.0) % MCHC 30.4 L (31.0-37.0) g/dL RDW 18.1 H (11.5-15.5) % Metamyelocytes # (Man) 0.17 H (0) k/uL Nucleated RBCs 18 H (0-0) /100 WBC Chloride (98-107) mmol/L Carbon Dioxide (22-30) mmol/L BUN (7-17) mg/dL Creatinine (0.52-1.04) mg/dL Glucose (74-99) mg/dL POC Glucose (mg/dL) 112 H 116 H (75-99) mg/dL Calcium (8.4-10.2) mg/dL Phosphorus (2.5-4.5) mg/dL Total Bilirubin (0.2-1.3) mg/dL AST (14-36) U/L ALT (9-52) U/L Alkaline Phosphatase (38-126) U/L Total Protein (6.3-8.2) g/dL Albumin (3.5-5.0) g/dL 04/14/18 04/14/18 04/14/18 Range/Units 04:54 07:03 07:11 RBC (3.80-5.40) m/uL Hgb (11.4-16.0) gm/dL Hct (34.0-46.0) % MCHC (31.0-37.0) g/dL RDW (11.5-15.5) % Metamyelocytes # (Man) (0) k/uL Nucleated RBCs (0-0) /100 WBC Chloride 108 H (98-107) mmol/L Carbon Dioxide 17 L (22-30) mmol/L BUN 23 H (7-17) mg/dL Creatinine 3.99 H (0.52-1.04) mg/dL Glucose 126 H (74-99) mg/dL POC Glucose (mg/dL) 118 H 111 H (75-99) mg/dL Calcium 7.5 L (8.4-10.2) mg/dL Phosphorus 6.0 H (2.5-4.5) mg/dL Total Bilirubin 2.9 H (0.2-1.3) mg/dL AST 208 H (14-36) U/L ALT 85 H (9-52) U/L Alkaline Phosphatase 383 H (38-126) U/L Total Protein 5.3 L (6.3-8.2) g/dL Albumin 2.7 L (3.5-5.0) g/dL 04/14/18 Range/Units 12:04 RBC (3.80-5.40) m/uL Hgb (11.4-16.0) gm/dL Hct (34.0-46.0) % MCHC (31.0-37.0) g/dL RDW (11.5-15.5) % Metamyelocytes # (Man) (0) k/uL Nucleated RBCs (0-0) /100 WBC Chloride (98-107) mmol/L Carbon Dioxide (22-30) mmol/L BUN (7-17) mg/dL Creatinine (0.52-1.04) mg/dL Glucose (74-99) mg/dL POC Glucose (mg/dL) 117 H (75-99) mg/dL Calcium (8.4-10.2) mg/dL Phosphorus (2.5-4.5) mg/dL Total Bilirubin (0.2-1.3) mg/dL AST (14-36) U/L ALT (9-52) U/L Alkaline Phosphatase (38-126) U/L Total Protein (6.3-8.2) g/dL Albumin (3.5-5.0) g/dL Assessment and Plan Assessment: Progressive increased lethargy and somnolence will repeat arterial blood gas Progressive worsening renal function and generalized anasarca agree with plans about hemodialysis/ultrafiltration Acute hypoxic and hypercapnic respiratory failure Severe sepsis and septic shock related to enterococcus urinary tract infection with some complaint component from cellulitis of the both lower extremity Developing cellulitis of the both lower extremity Elevated lactic acid/metabolic acidosis multifactorial associated with acute on chronic renal failure, urinary tract infection Pulmonary sarcoidosis with possible left lower lobe pneumonia Somnolence and lethargy due to multifactorial processes including methadone advised to cut down the dose of methadone to half and to stop if patient is somnolent Small left-sided pleural effusion Dehydration associated with intravascular volume depletion patient is undergoing crystalloid challenge Severe morbid obesity and obstructive sleep apnea Acute on Chronic renal failure stage IV jackman appears to be volume depleted we' ll do a challenge of fluid see if urine output will improve if not improving next 24-48 hours agree with renal plan of hemodialysis/ultrafiltration Plan: Continue BiPAP each night and when necessary during the day Gentle diuresis if possible Agree with the hemodialysis/ultrafiltration DC methadone Obtain arterial blood gas Continue broad-spectrum antibiotics Ammann adjusted accordingly DVT and peptic ulcer disease prophylaxis IV steroids Reviewed labs and radiographic studies ordered for tomorrow, further recommendations pending plan of care as per clinical response of the patient Respiratory was not able to get a ABG sample was drawn by me from the right wrist radial artery and reviewed patient has the significant metabolic acidosis likely related to renal failure, agree with bicarb drip and plans for slow hemodialysis /ultrafiltration Further recommendations pending plan of care as per clinical response of [facility] critical care time spent 35 minutes Time with Patient: Greater than 30
[2018-04-14 17:24] LABS: Glucose,Whole Blood 137 mg/dL (75-99)
[2018-04-14] MEDS: DEXTROSE 5% IN WATER 1,000 ML with SODIUM BICARB (1 MEQ/ML) 100 ML IV SCH (17:25)
[2018-04-14 20:31] LABS: Glucose,Whole Blood 148 mg/dL (75-99)
[2018-04-14] MEDS: GABAPENTIN 300 MG CAP PO SCH (21:39)
[2018-04-15] MEDS: methylPREDNISolone SOD SUCCI 125 MG/2 ML VIAL IV SCH ×5 (00:03→23:34)
[2018-04-15] MEDS: HEPARIN SODIUM,PORCINE 5,000 UNIT/ML 1 ML VIAL SQ SCH ×4 (00:07→23:53)
[2018-04-15] MEDS: DEXTROSE 5% IN WATER 1,000 ML with SODIUM BICARB (1 MEQ/ML) 100 ML IV SCH ×3 (01:53→23:19)
--- NOTE | 2018-04-15 04:01 | PN ---
PROGRESS NOTE DATE OF SERVICE: 04/14/2018. REASON FOR FOLLOWUP: VRE urinary tract infection. INTERVAL HISTORY: The patient is afebrile. Blood pressure has been but no need for any pressor support per the RN. The patient urine output remains to be despite receiving heavy doses of diuretics. The patient remains to be lethargic by the BiPAP and unable to provide any history and no diarrhea reported by nursing staff. EXAMINATION: Blood pressure is 99/52 with a pulse of 89, temperature is 97, she is 100% on BiPAP. General description is a middle aged female lying in bed in no distress. Respiratory system unlabored breathing with decreased breath sounds in the bases. No wheeze. Heart S1, S2 regular. ABDOMEN: Soft, no guarding or rigidity. Extremities: 2+ edema of the feet. LABS: Hemoglobin 8.8, white count 8.6, BUN of 23, creatinine 3.99. DIAGNOSTIC IMPRESSION AND PLAN: 1. Patient admitted to the hospital with hypertension, which is likely multifactorial and did have a component of urinary tract infection. Urine showing VRE. Patient currently covered with daptomycin. Unfortunately the patient did have problem with worsening of her renal function and may be considered for dialysis. Patient will continue with Daptomycin to finish course of therapy. 2. Patient with bilateral groin area and abdomen fold cutaneous candidiasis, to continue with the Nystatin powder. 3. Left wound. Local wound care with Aquacel Silver dressing. MMODL / IJN: [id number] /
[2018-04-15 05:15] LABS: INR 1.4 (<1.2); Prothrombin Time 13.2 sec (9.0-12.0)
[2018-04-15 05:22] LABS: Anisocytosis Slight; HCT 28.1 % (34.0-46.0); HGB 8.8 gm/dL (11.4-16.0); Hypochromasia Moderate; MCH 29.8 pg (25.0-35.0); MCHC 31.3 g/dL (31.0-37.0); MCV 95.3 fL (80.0-100.0); Macrocytosis Slight; Mean Platelet Volume 7.9; Platelet Count 223 k/uL (150-450); RBC 2.95 m/uL (3.80-5.40); RDW 18.6 % (11.5-15.5)
[2018-04-15 05:23] LABS: Albumin 2.7 g/dL (3.5-5.0); Magnesium 2.1 mg/dL (1.6-2.3); Phosphorus 6.1 mg/dL (2.5-4.5); Potassium 4.7 mmol/L (3.5-5.1); Total Bilirubin 2.5 mg/dL (0.2-1.3); Total Protein 5.2 g/dL (6.3-8.2)
[2018-04-15 05:49] LABS: Band Neutrophils % 2 %; Lymphocytes # (M) 2.01 k/uL (1.0-4.8); Monocytes # (M) 0.12 k/uL (0-1.0); Myelocytes # (M) 0.47 k/uL (0); Myelocytes % 4 %; Neutrophils % (M) 76 %; Nucleated Red Blood Cells 9 /100 WBC (0-0); Total Cells Counted 200; WBC 11.8 k/uL (3.8-10.6)
[2018-04-15 05:50] LABS: Large Platelets Present
[2018-04-15] MEDS: INSULIN ASPART 100 UNIT/ML 1 ML 10 ML VIAL SQ SCH ×4 (06:49→21:57)
[2018-04-15 06:56] LABS: Glucose,Whole Blood 154 mg/dL (75-99)
[2018-04-15] MEDS: ALBUTEROL NEBULIZED 2.5 MG/3 ML INHALATION SCH ×3 (07:41→20:55)
[2018-04-15] MEDS: BUDESONIDE 0.5 MG/2 ML NEBU INHALATION SCH ×2 (07:41→20:55)
[2018-04-15] MEDS: FLUTICASONE 110 MCG INHALER INHALATION SCH ×2 (07:44→20:56)
[2018-04-15] MEDS: CALCIUM ACETATE 667 MG CAP PO SCH ×3 (08:58→17:10)
[2018-04-15] MEDS: SODIUM CHLORIDE 0.9% 1,000 ML IV SCH ×2 (08:59→16:41)
[2018-04-15] MEDS: BETHANECHOL 25 MG TAB PO SCH ×4 (08:59→21:41)
[2018-04-15] MEDS: METHADONE 10 MG TAB PO SCH (08:59)
[2018-04-15] MEDS: FAMOTIDINE 20 MG TAB PO SCH (08:59)
[2018-04-15] MEDS: DULoxetine HCL 30 MG CAPSULE.DR PO SCH ×2 (08:59→21:41)
[2018-04-15] MEDS: SODIUM BICARBONATE TAB 650 MG TAB PO SCH ×3 (09:00→21:41)
[2018-04-15] MEDS: ZINC OXIDE 20% OINT 28.4 GM TUBE TOPICAL SCH ×4 (09:01→21:44)
[2018-04-15] MEDS: NYSTATIN 100,000 UNIT/GM POWD 15 GM TOPICAL SCH ×2 (09:01→21:43)
[2018-04-15] MEDS: PIPERACILLIN-TAZOBACTAM 3.375 GM in DEXTROSE/WATER 1 50ML.BAG IVPB SCH ×2 (09:01→21:53)
[2018-04-15] MEDS: PETROLATUM, WHITE OINT 50 GM TUBE TOPICAL SCH ×2 (09:02→21:44)
[2018-04-15] MEDS: CLOTRIMAZOLE/BETAMETH 1-0.05% CREAM 45 GM TUBE TOPICAL SCH ×2 (09:02→21:44)
[2018-04-15] MEDS: PANTOPRAZOLE 40 MG/10 ML VIAL IVP SCH (09:05)
--- NOTE | 2018-04-15 10:46 | P.PN ---
Subjective Progress Note Date: 04/15/18 (Nephrology) Principal diagnosis: Acute kidney injury and volume overload Seen and examined for the follow-up of acute kidney injury. States she is on BiPAP. Still oliguric less than 200 ML's of urine in the last 24 hours. Minimal communication but nodding her head. Blood pressures are low normal. Objective - Vital Signs Vital signs: Vital Signs Temp 97.5 F L 04/15/18 09:00 Pulse 89 04/15/18 09:00 Resp 15 04/15/18 09:00 BP 90/63 04/15/18 09:00 Pulse Ox 100 04/15/18 09:00 Intake & Output 04/14/18 04/15/18 04/15/18 18:59 06:59 18:59 Intake Total 150 1150 360 Output Total 28 146 50 Balance 122 1004 310 Weight 181.9 kg 182 kg Intake: IV 1150 310 DAPTOmycin 600 mg In 50 Sodium Chloride 0.9% 50 ml @ 100 mls/hr IVPB Q48H [facility] Rx#:[id number] Dextrose 5% in Water 1, 1100 300 000 ml @ 100 mls/hr IV . Q11H [facility] with Sodium Bicarb (1 Meq/ml) 100 ml Rx#:[id number] ns 10 Intake, IV Titration 50 Amount Piperacillin-Tazobactam 3 50 .375 gm In Dextrose/Water 1 50ml.bag @ 12.5 mls/hr IVPB Q12HR [facility] Rx#: [id number] Oral 150 Output: Urine 28 145 50 Stool 1 Other: Voiding Method Indwelling Catheter Indwelling Catheter - Exam No acute distress. On BiPAP Lungs clear anteriorly S1-S2 heard Lopez catheter 3+ edema - Labs CBC & Chem 7: 04/15/18 04:50 04/15/18 04:50 Labs: Abnormal Lab Results - Last 24 Hours (Table) 04/14/18 04/14/18 04/14/18 Range/Units 12:04 15:38 17:12 WBC (3.8-10.6) k/uL RBC (3.80-5.40) m/uL Hgb (11.4-16.0) gm/dL Hct (34.0-46.0) % RDW (11.5-15.5) % Neutrophils # (Manual) (1.3-7.7) k/uL Myelocytes # (Manual) (0) k/uL Nucleated RBCs (0-0) /100 WBC PT (9.0-12.0) sec INR (<1.2) ABG pH 7.26 L (7.35-7.45) ABG pO2 145 H (83-108) mmHg ABG HCO3 16 L (21-25) mmol/L ABG Total CO2 17 L (19-24) mmol/L ABG O2 Saturation 99.4 H (94-97) % Sodium (137-145) mmol/L Carbon Dioxide (22-30) mmol/L BUN (7-17) mg/dL Creatinine (0.52-1.04) mg/dL Glucose (74-99) mg/dL POC Glucose (mg/dL) 117 H 137 H (75-99) mg/dL Calcium (8.4-10.2) mg/dL Phosphorus (2.5-4.5) mg/dL Total Bilirubin (0.2-1.3) mg/dL AST (14-36) U/L ALT (9-52) U/L Alkaline Phosphatase (38-126) U/L Total Protein (6.3-8.2) g/dL Albumin (3.5-5.0) g/dL 04/14/18 04/15/18 04/15/18 Range/Units 20:20 04:50 04:50 WBC (3.8-10.6) k/uL RBC (3.80-5.40) m/uL Hgb (11.4-16.0) gm/dL Hct (34.0-46.0) % RDW (11.5-15.5) % Neutrophils # (Manual) (1.3-7.7) k/uL Myelocytes # (Manual) (0) k/uL Nucleated RBCs (0-0) /100 WBC PT 13.2 H (9.0-12.0) sec INR 1.4 H (<1.2) ABG pH (7.35-7.45) ABG pO2 (83-108) mmHg ABG HCO3 (21-25) mmol/L ABG Total CO2 (19-24) mmol/L ABG O2 Saturation (94-97) % Sodium 136 L (137-145) mmol/L Carbon Dioxide 18 L (22-30) mmol/L BUN 27 H (7-17) mg/dL Creatinine 4.19 H (0.52-1.04) mg/dL Glucose 151 H (74-99) mg/dL POC Glucose (mg/dL) 148 H (75-99) mg/dL Calcium 7.0 L (8.4-10.2) mg/dL Phosphorus 6.1 H (2.5-4.5) mg/dL Total Bilirubin 2.5 H (0.2-1.3) mg/dL AST 121 H (14-36) U/L ALT 81 H (9-52) U/L Alkaline Phosphatase 344 H (38-126) U/L Total Protein 5.2 L (6.3-8.2) g/dL Albumin 2.7 L (3.5-5.0) g/dL 04/15/18 04/15/18 Range/Units 04:50 06:45 WBC 11.8 H (3.8-10.6) k/uL RBC 2.95 L (3.80-5.40) m/uL Hgb 8.8 L (11.4-16.0) gm/dL Hct 28.1 L (34.0-46.0) % RDW 18.6 H (11.5-15.5) % Neutrophils # (Manual) 9.20 H (1.3-7.7) k/uL Myelocytes # (Manual) 0.47 H (0) k/uL Nucleated RBCs 9 H (0-0) /100 WBC PT (9.0-12.0) sec INR (<1.2) ABG pH (7.35-7.45) ABG pO2 (83-108) mmHg ABG HCO3 (21-25) mmol/L ABG Total CO2 (19-24) mmol/L ABG O2 Saturation (94-97) % Sodium (137-145) mmol/L Carbon Dioxide (22-30) mmol/L BUN (7-17) mg/dL Creatinine (0.52-1.04) mg/dL Glucose (74-99) mg/dL POC Glucose (mg/dL) 154 H (75-99) mg/dL Calcium (8.4-10.2) mg/dL Phosphorus (2.5-4.5) mg/dL Total Bilirubin (0.2-1.3) mg/dL AST (14-36) U/L ALT (9-52) U/L Alkaline Phosphatase (38-126) U/L Total Protein (6.3-8.2) g/dL Albumin (3.5-5.0) g/dL Assessment and Plan Assessment: #1 oliguric acute kidney injury secondary to ATN from hypotension. #2 hypotension suspect secondary to sepsis on antibiotics. #3 hyponatremia secondary to hypervolemia. #4 metabolic acidosis multifactorial #5 acute respiratory failure on BiPAP #6 Diastolic CHF with ejection fraction of 50% and moderate pulmonary hypertension #7 diabetes on insulin Plan: #1 with oliguria and volume overload and acidosis refractory to medical treatment discussed with the mother over the phone agreeable for dialysis. #2 vascular surgical consult for a [place] catheter. Plan hemodialysis today for 2 hours and tomorrow for 3 hours and Tuesday for full treatment. #3 monitor strict ins and outs. #4 add midodrine to maintain blood pressure to help with ultrafiltration. #5 avoid nephrotoxic agents and hypotensive episodes. #6 discontinue bicarb drip once on dialysis.
--- NOTE | 2018-04-15 10:56 | PN ---
PROGRESS NOTE DATE OF DICTATION: 04/15/2018 This patient is a 47-year-old white female admitted to the hospital with sepsis and septic shock secondary to urinary tract infection and pulmonary sarcoidosis. We have been following the patient because of elevated LFTs during this hospitalization which probably are related to sepsis. Also we were consulted yesterday for Dobhoff tube placement for feeding. This morning on talking to the patient she is somewhat more awake, though sleepy during the interview. She has not eaten for the last 2 days. She denies any abdominal pain. She remains on a BiPAP machine and her respiratory status is more stable. PHYSICAL EXAMINATION: She appears comfortable. VITAL SIGNS: Stable. Blood pressure is 86/54, pulse rate 86, temperature 97.2. HEENT examination unremarkable. Conjunctivae pink. Sclerae anicteric. Oral cavity no lesions. NECK: No JVD or lymph node enlargement. Chest was clear to auscultation. HEART: Regular rate and rhythm. ABDOMEN: Soft. Bowel sounds are positive. No organomegaly. She is morbidly obese. EXTREMITIES: No pedal edema. LABS FROM TODAY: WBC 11.8, hemoglobin 8.8, platelets are normal. AST and ALT are 81 and 129, respectively. T-bilirubin is 2.5 and alkaline phosphatase is 344. BUN is 27, creatinine 4.19. IMPRESSION: 1. Sepsis/septic shock secondary to urinary tract infection, at present on broad- spectrum antibiotics. 2. Acute respiratory failure, on BiPAP, doing well. 3. Altered mental status with obtundation. Patient not able to eat for the last 2 days, and because of the compromised nutrition, we were consulted for Dobhoff tube placement. However, this morning she is more awake. 4. Elevated liver function tests, probably related to sepsis/septic shock. Doubt hepatic sarcoidosis. RECOMMENDATIONS: 1. At this time continue with symptomatic and supportive care. 2. No plans for any Dobhoff tube placement, since the patient's overall mental status has improved, and we will encourage oral intake today. I discussed with the nursing staff caring for her, and if she continues to have issues with nutritional intake, we will consider Dobhoff feeding tube placement tomorrow. Thank you for this consultation. MMODL / IJN: [id number] /
[2018-04-15 12:29] LABS: Glucose,Whole Blood 148 mg/dL (75-99)
--- NOTE | 2018-04-15 12:35 | P.PN ---
<Jeanne Roca A - Last Filed: 04/15/18 12:30> Subjective Progress Note Date: 04/15/18 This is 47 years old female with past medical history significant for sarcoidosis, morbid obesity, diabetes mellitus and multiple comorbidities, residence of prison who was recently discharged from [facility] presents today from prison with hypotension, slight tachycardia and hypoxia. In the emergency department blood pressure was below 90/60, heart rate in the 110 area, oxygen was in the mid 80s patient was started on oxygen and blood work showed elevated creatinine patient was sent to VQ scan which showed intermediate probability with limited examination due to motion factor and patient was started on heparin drip for assumption of pulmonary embolism. Patient is poor historian and unable to provide detailed information and was refusing care per nursing staff since admission to the floor including her medication and using her BiPAP on an as-needed basis. Patient currently is denying chest pain, shortness breath, nausea, vomiting, abdominal pain or productive cough 04/10: Received call today from the nursing staff the patient was really sick, blood pressure was low and was lethargic and sleeping well on BiPAP most the morning and lactic acid was elevated at 5.8 last evening.. She was unable to take her medications or eat this morning. She has increased edema. Patient has only had 150 mL of urine output overnight. She does have a Lopez catheter in. There was no IV access. Patient has been seen by by nephrology and cortisol level ordered along with Solu-Cortef and Lasix 60 mg IV once. Prednisone was discontinued. Patient was transferred into the intensive care unit and consult requested with Dr. Robin for intensive care management. Methadone dose changed to 50 mg daily which is her current dose at [facility]. Diarrhea has resolved. 04/11: Repeat chest x-ray reveals stable cardiomegaly. PICC placement. Patient has been seen by Dr. Colon and vancomycin and daptomycin started, continue Zosyn. Santyl to lower extremity cellulitis. Patient has been seen by Dr. Robin with concern for possible left lower lobe pneumonia, small left pleural effusion and dehydration. This morning, Dr. Moran ordered Lasix 40 mg IV once , IV dextrose 50% and regular insulin. Cortisol level was normal. Steroids are Solu-Medrol 60 mg every 6 hours. Midodrine was started yesterday for blood pressure support. Blood pressure is much improved today. Hemoglobin is 9.3, sodium 131 and potassium 5.3, creatinine 2.99. Capillary blood glucose running between 117 and 134. Lactic acid is now down to 1.9. Vancomycin level 25.6. Patient has been hemodynamically stable, afebrile. Patient has been on BiPAP and this morning is on nasal cannula, she remains lethargic but more alert from yesterday. Lopez catheter is in place. She continues to have lower extremity edema and now with weeping. No diarrhea. Patient has not had a bowel movement since 04/10. Urine output has been adequate at 50 mL per hour for the past 4 hours. She is complaining of nausea and abdominal discomfort for which lipase and CAT scan of the abdomen and pelvis ordered with oral contrast only. 04/12: Patient remains in intensive care unit. She has been hemodynamically stable and Midodrine will be discontinued. Lopez catheter remains in place with good urine output. She had a large bowel movement last evening and a small soft bowel movement today. Creatinine is 3.36 and BUN 17.. Heart rates have been elevated. Patient is more alert today from yesterday. GI consult added for elevated liver function tests and abdominal ultrasound ordered. 04/13: Cardiology consult was added yesterday due to tachycardia and patient was started on Lopressor 12.5 mg twice daily and hold for systolic blood pressure less than 90. TSH was 1.620. She has been on BiPAP during the night. Abdominal ultrasound reveals hepatomegaly correlate for hepatic steatosis, diffuse hepatocellular disease or hepatitis. There is ringing down artifact involving the gallbladder wall which can occasionally be seen with adenomyomatosis. Repeat liver function tests are increasing with total bilirubin 1.8, AST 82, ALT 54, alkaline phosphatase 278. GI is following. BUN 20 and creatinine 3.67, urine output low. She has epigastric tenderness and protonix added to omeprazole. Patient eating very little and refused nephro today. She is cleared to be transferred to Cardiac Step down. 04/14: Patient is more lethargic today. She is refusing to open her mouth. She has had no oral medications nor oral intake. Yesterday she ate a little bit of fluid and Magic cups. She is currently on BiPAP at FiO2 of 35%. Urine output by the time of evaluation was only 25-30 mL. Lasix 80 mg IV ordered by Dr. Moran. Patient may require hemodialysis if renal function does not improve. Today creatinine is at 3.99. Oral sodium bicarb will be switched over to drip. GI is following and has been asked to place Dobbhoff. Ammonia level came back normal at 18. Liver function tests are also worsening. 04/15: Patient is awake this morning on BiPAP. Very little communication but nods her head. She is complaining of nausea and abdominal pain. She had a bowel movement early this morning. Renal function is worse with creatinine of 4.9, hemoglobin 8.8. Nephrology has ordered consult with vascular for [place] catheter placement with plan for hemodialysis today, Tuesday and Tuesday. Urine output has been less than 200 mL over the past 24 hours. Patient to continue on sodium bicarb drip. Nephrology is added back in mid drain. Dobbhoff to be placed today. Review Of Systems: Constitutional: No fever, no chills, no night sweats. +weakness, +fatigue, + lethargy. + daytime sleepiness. EENT: No headache. No epistaxis. No sore throat. Lungs: + shortness of breath, + cough, no sputum production. No wheezing. Cardiovascular: No chest pain, + lower extremity edema. No palpitations. No paroxysmal nocturnal dyspnea. No orthopnea. No lightheadedness or dizziness. No syncopal episodes. Abdominal: +abdominal pain. No nausea, vomiting. No diarrhea. No constipation. No bloody or tarry stools. + loss of appetite. Genitourinary: No dysuria, increased frequency, urgency. + urinary retention. Musculoskeletal: + myalgias. + muscle weakness, + gait dysfunction. Integumentary: No rash or pruritus. + wheeping lower legs Neurological: + mental status change. Endocrine: + abnormal blood sugars. Objective - Vital Signs Vital signs: Vital Signs Temp 97.5 F L 04/15/18 09:00 Pulse 89 04/15/18 09:00 Resp 15 04/15/18 09:00 BP 90/63 04/15/18 09:00 Pulse Ox 100 04/15/18 09:00 Intake & Output 04/14/18 04/15/18 04/15/18 18:59 06:59 18:59 Intake Total 150 1150 360 Output Total 28 146 50 Balance 122 1004 310 Weight 181.9 kg 182 kg Intake: IV 1150 310 DAPTOmycin 600 mg In 50 Sodium Chloride 0.9% 50 ml @ 100 mls/hr IVPB Q48H LESLIE Rx#:[id number] Dextrose 5% in Water 1, 1100 300 000 ml @ 100 mls/hr IV . Q11H LESLIE with Sodium Bicarb (1 Meq/ml) 100 ml Rx#:[id number] ns 10 Intake, IV Titration 50 Amount Piperacillin-Tazobactam 3 50 .375 gm In Dextrose/Water 1 50ml.bag @ 12.5 mls/hr IVPB Q12HR LESLIE Rx#: [id number] Oral 150 Output: Urine 28 145 50 Stool 1 Other: Voiding Method Indwelling Catheter Indwelling Catheter - Exam Gen: This is a morbidly obese 47-year-old female. She is in ICU bed and appears to be in no acute distress. HEENT: Head is atraumatic, normocephalic. Pupils equal, round. Sclerae is anicteric. Hearing grossly normal. NECK: Supple. No JVD. No lymphadenopathy. No thyromegaly. LUNGS: Diminished bilaterally. Clear to auscultation. No wheezes or rhonchi. No intercostal retractions. HEART: Regular rate and rhythm. No murmur. ABDOMEN: Morbidly obese. Soft. Bowel sounds are present. No masses. Positive epigastric tenderness. Lopez catheter draining clear benjy urine. EXTREMITIES: 2+ pedal edema with serous weeping. No calf tenderness. NEUROLOGICAL: Patient is arousable and lethargic. Generalized weakness. She is able to nod her head to answer questions - Labs CBC & Chem 7: 04/15/18 04:50 04/15/18 04:50 Labs: Abnormal Lab Results - Last 24 Hours (Table) 04/14/18 04/14/18 04/14/18 Range/Units 12:04 15:38 17:12 WBC (3.8-10.6) k/uL RBC (3.80-5.40) m/uL Hgb (11.4-16.0) gm/dL Hct (34.0-46.0) % RDW (11.5-15.5) % Neutrophils # (Manual) (1.3-7.7) k/uL Myelocytes # (Manual) (0) k/uL Nucleated RBCs (0-0) /100 WBC PT (9.0-12.0) sec INR (<1.2) ABG pH 7.26 L (7.35-7.45) ABG pO2 145 H (83-108) mmHg ABG HCO3 16 L (21-25) mmol/L ABG Total CO2 17 L (19-24) mmol/L ABG O2 Saturation 99.4 H (94-97) % Sodium (137-145) mmol/L Carbon Dioxide (22-30) mmol/L BUN (7-17) mg/dL Creatinine (0.52-1.04) mg/dL Glucose (74-99) mg/dL POC Glucose (mg/dL) 117 H 137 H (75-99) mg/dL Calcium (8.4-10.2) mg/dL Phosphorus (2.5-4.5) mg/dL Total Bilirubin (0.2-1.3) mg/dL AST (14-36) U/L ALT (9-52) U/L Alkaline Phosphatase (38-126) U/L Total Protein (6.3-8.2) g/dL Albumin (3.5-5.0) g/dL 04/14/18 04/15/18 04/15/18 Range/Units 20:20 04:50 04:50 WBC (3.8-10.6) k/uL RBC (3.80-5.40) m/uL Hgb (11.4-16.0) gm/dL Hct (34.0-46.0) % RDW (11.5-15.5) % Neutrophils # (Manual) (1.3-7.7) k/uL Myelocytes # (Manual) (0) k/uL Nucleated RBCs (0-0) /100 WBC PT 13.2 H (9.0-12.0) sec INR 1.4 H (<1.2) ABG pH (7.35-7.45) ABG pO2 (83-108) mmHg ABG HCO3 (21-25) mmol/L ABG Total CO2 (19-24) mmol/L ABG O2 Saturation (94-97) % Sodium 136 L (137-145) mmol/L Carbon Dioxide 18 L (22-30) mmol/L BUN 27 H (7-17) mg/dL Creatinine 4.19 H (0.52-1.04) mg/dL Glucose 151 H (74-99) mg/dL POC Glucose (mg/dL) 148 H (75-99) mg/dL Calcium 7.0 L (8.4-10.2) mg/dL Phosphorus 6.1 H (2.5-4.5) mg/dL Total Bilirubin 2.5 H (0.2-1.3) mg/dL AST 121 H (14-36) U/L ALT 81 H (9-52) U/L Alkaline Phosphatase 344 H (38-126) U/L Total Protein 5.2 L (6.3-8.2) g/dL Albumin 2.7 L (3.5-5.0) g/dL 04/15/18 04/15/18 Range/Units 04:50 06:45 WBC 11.8 H (3.8-10.6) k/uL RBC 2.95 L (3.80-5.40) m/uL Hgb 8.8 L (11.4-16.0) gm/dL Hct 28.1 L (34.0-46.0) % RDW 18.6 H (11.5-15.5) % Neutrophils # (Manual) 9.20 H (1.3-7.7) k/uL Myelocytes # (Manual) 0.47 H (0) k/uL Nucleated RBCs 9 H (0-0) /100 WBC PT (9.0-12.0) sec INR (<1.2) ABG pH (7.35-7.45) ABG pO2 (83-108) mmHg ABG HCO3 (21-25) mmol/L ABG Total CO2 (19-24) mmol/L ABG O2 Saturation (94-97) % Sodium (137-145) mmol/L Carbon Dioxide (22-30) mmol/L BUN (7-17) mg/dL Creatinine (0.52-1.04) mg/dL Glucose (74-99) mg/dL POC Glucose (mg/dL) 154 H (75-99) mg/dL Calcium (8.4-10.2) mg/dL Phosphorus (2.5-4.5) mg/dL Total Bilirubin (0.2-1.3) mg/dL AST (14-36) U/L ALT (9-52) U/L Alkaline Phosphatase (38-126) U/L Total Protein (6.3-8.2) g/dL Albumin (3.5-5.0) g/dL Assessment and Plan Plan: 1. Sepsis with septic shock secondary to urinary tract infection with lactic acidosis. Intensive care unit management. PICC line ordered for IV access. Consults with Dr. Robin and Dr. Colon appreciated. Continue daptomycin and Zosyn. IVF per Dr. Moran 2. Intermediate probability of pulmonary embolism ruled out. Pulmonary medicine is following 3. Acute respiratory failure on chronic respiratory failure with hypoxia. Continue albuterol nebulizer treatments every 6 hours, DuoNeb treatments every 4 hours as needed, Pulmicort twice daily, Solu-Medrol. 4. Morbid obesity with BMI of 59. 5. Neurogenic bladder with incontinence. Urinary retention requiring Lopez catheter placement. 6. Diabetes mellitus type 2 insulin-dependent. Metformin on hold. NovoLog scale before meals and at bedtime. 7. Debility and deconditioning. 8. Dehydration. 9. Acute kidney injury and ATN likely secondary to dehydration with hyperkalemia. Consult with nephrology appreciated. Consult with vascular for [place] catheter placement. Patient to start hemodialysis today. 10. Sarcoidosis following with [facility] on daily dose of steroids. 11. Hyperkalemia 12. Metabolic encephalopathy secondary to sepsis, improving. 13. Chronic pain. Methadone currently at 50 mg daily 14. Abdominal pain with worsening liver function tests mostly secondary to heart failure and congestion. 15. Severe protein calorie malnutrition. Request a GI place Dobb[facility] and start tube feedings. Dietitian is following. Pre-albumin ordered. 16. Metabolic acidosis. Sodium bicarb will be switched over to IV until Dobbhoff is placed. 17. GERD and possible gastritis. Continue Pepcid and Protonix CODE STATUS: Full code Discharge plan: Return to [facility] as long-term resident. Patient is known to have guardian. (Sister and father) Impression and plan of care have been directed as dictated by the signing physician. Jeanne Roca nurse practitioner acting as scribe for signing physician. <Kaylan Vizcarra - Last Filed: 04/23/18 23:15> Objective - Vital Signs Vital signs: Vital Signs Temp 97.6 F 04/23/18 20:00 Pulse 96 04/23/18 23:00 Resp 25 H 04/23/18 23:00 BP 125/80 04/23/18 12:28 Pulse Ox 98 04/23/18 23:00 Intake & Output 04/23/18 04/23/18 04/24/18 06:59 18:59 06:59 Intake Total 2159.934 484 Output Total 12 2 Balance 2147.934 482 Weight Intake: IV 672 280 Sodium Chloride 0.9% 1, 600 250 000 ml @ 50 mls/hr IV . Q20H L[facility]LIE Rx#:[id number] pressure bag 72 30 Intake, IV Titration 276.934 Amount Norepinephrine 16 mg In Sodium Chloride 0.9% 250 ml @ Titrate IV .Q0M LESLIE Rx#:[id number] Propofol 1,000 mg In 276.934 Empty Bag 1 bag @ Titrate IV .Q0M LESLIE Rx#: [id number] Tube Feeding 561 204 Blood Product 620 Rc Pheresis As-3 Unit 310 [id number] Rc Pheresis As-3 Unit 310 [id number] Other 30 Output: Urine 10 2 Stool 2 Other: Voiding Method Indwelling Catheter Indwelling Catheter # Voids ABP, PAP, CO, CI - Last Documented Arterial Blood Pressure 118/60 - Labs CBC & Chem 7: 04/23/18 14:20 04/23/18 05:30 Labs: Abnormal Lab Results - Last 24 Hours (Table) 04/20/18 04/23/18 04/23/18 Range/Units 20:06 04:22 05:30 WBC (3.8-10.6) k/uL RBC (3.80-5.40) m/uL Hgb (11.4-16.0) gm/dL Hct (34.0-46.0) % RDW (11.5-15.5) % Plt Count (150-450) k/uL Neutrophils # (Manual) (1.3-7.7) k/uL Metamyelocytes # (Man) (0) k/uL Myelocytes # (Manual) (0) k/uL Promyelocytes # (Man) (0) k/uL Nucleated RBCs (0-0) /100 WBC APTT (22.0-30.0) sec ABG Total CO2 (19-24) mmol/L ABG O2 Saturation (94-97) % Sodium 136 L (137-145) mmol/L Carbon Dioxide 20 L (22-30) mmol/L BUN 18 H (7-17) mg/dL Creatinine 1.35 H (0.52-1.04) mg/dL Glucose 263 H (74-99) mg/dL POC Glucose (mg/dL) 259 H (75-99) mg/dL Calcium 6.9 L (8.4-10.2) mg/dL Phosphorus 1.7 L (2.5-4.5) mg/dL Total Bilirubin 8.0 H (0.2-1.3) mg/dL AST 524 H (14-36) U/L ALT 231 H (9-52) U/L Alkaline Phosphatase 331 H (38-126) U/L Lactate Dehydrogenase (313-618) U/L Total Protein 4.5 L (6.3-8.2) g/dL Albumin 2.8 L (3.5-5.0) g/dL Crossmatch See Detail 04/23/18 04/23/18 04/23/18 Range/Units 05:36 07:43 08:16 WBC 27.0 H (3.8-10.6) k/uL RBC 1.84 L (3.80-5.40) m/uL Hgb 5.5 L* D (11.4-16.0) gm/dL Hct 16.6 L* (34.0-46.0) % RDW 18.2 H (11.5-15.5) % Plt Count 88 L (150-450) k/uL Neutrophils # (Manual) 19.70 H (1.3-7.7) k/uL Metamyelocytes # (Man) 2.43 H (0) k/uL Myelocytes # (Manual) 2.97 H (0) k/uL Promyelocytes # (Man) 0.27 H (0) k/uL Nucleated RBCs 23 H (0-0) /100 WBC APTT (22.0-30.0) sec ABG Total CO2 25 H (19-24) mmol/L ABG O2 Saturation 97.8 H (94-97) % Sodium (137-145) mmol/L Carbon Dioxide (22-30) mmol/L BUN (7-17) mg/dL Creatinine (0.52-1.04) mg/dL Glucose (74-99) mg/dL POC Glucose (mg/dL) 218 H (75-99) mg/dL Calcium (8.4-10.2) mg/dL Phosphorus (2.5-4.5) mg/dL Total Bilirubin (0.2-1.3) mg/dL AST (14-36) U/L ALT (9-52) U/L Alkaline Phosphatase (38-126) U/L Lactate Dehydrogenase (313-618) U/L Total Protein (6.3-8.2) g/dL Albumin (3.5-5.0) g/dL Crossmatch 04/23/18 04/23/18 04/23/18 Range/Units 11:52 14:20 14:20 WBC 25.0 H (3.8-10.6) k/uL RBC 2.59 L (3.80-5.40) m/uL Hgb 8.4 L D (11.4-16.0) gm/dL Hct 23.1 L (34.0-46.0) % RDW 16.9 H (11.5-15.5) % Plt Count 71 L (150-450) k/uL Neutrophils # (Manual) 21.50 H (1.3-7.7) k/uL Metamyelocytes # (Man) 1.50 H (0) k/uL Myelocytes # (Manual) 1.00 H (0) k/uL Promyelocytes # (Man) (0) k/uL Nucleated RBCs 33 H (0-0) /100 WBC APTT (22.0-30.0) sec ABG Total CO2 (19-24) mmol/L ABG O2 Saturation (94-97) % Sodium (137-145) mmol/L Carbon Dioxide (22-30) mmol/L BUN (7-17) mg/dL Creatinine (0.52-1.04) mg/dL Glucose (74-99) mg/dL POC Glucose (mg/dL) 204 H (75-99) mg/dL Calcium (8.4-10.2) mg/dL Phosphorus (2.5-4.5) mg/dL Total Bilirubin (0.2-1.3) mg/dL AST (14-36) U/L ALT (9-52) U/L Alkaline Phosphatase (38-126) U/L Lactate Dehydrogenase 6098 H (313-618) U/L Total Protein (6.3-8.2) g/dL Albumin (3.5-5.0) g/dL Crossmatch 04/23/18 04/23/18 04/23/18 Range/Units 14:20 17:15 20:44 WBC (3.8-10.6) k/uL RBC (3.80-5.40) m/uL Hgb (11.4-16.0) gm/dL Hct (34.0-46.0) % RDW (11.5-15.5) % Plt Count (150-450) k/uL Neutrophils # (Manual) (1.3-7.7) k/uL Metamyelocytes # (Man) (0) k/uL Myelocytes # (Manual) (0) k/uL Promyelocytes # (Man) (0) k/uL Nucleated RBCs (0-0) /100 WBC APTT 39.6 H (22.0-30.0) sec ABG Total CO2 (19-24) mmol/L ABG O2 Saturation (94-97) % Sodium (137-145) mmol/L Carbon Dioxide (22-30) mmol/L BUN (7-17) mg/dL Creatinine (0.52-1.04) mg/dL Glucose (74-99) mg/dL POC Glucose (mg/dL) 223 H 162 H (75-99) mg/dL Calcium (8.4-10.2) mg/dL Phosphorus (2.5-4.5) mg/dL Total Bilirubin (0.2-1.3) mg/dL AST (14-36) U/L ALT (9-52) U/L Alkaline Phosphatase (38-126) U/L Lactate Dehydrogenase (313-618) U/L Total Protein (6.3-8.2) g/dL Albumin (3.5-5.0) g/dL Crossmatch Microbiology - Last 24 Hours (Table) 04/21/18 00:29 Gram Stain - Final Sputum Sputum Culture - Final Pseudomonas aeruginosa Carmel albicans Assessment and Plan Plan: Addendum diagnosis: diagnosis should reflect acute kidney failure secondary to septic shock, ATN chronic steroids immununosupressed state chronic from intermediate steroids
[2018-04-15] MEDS: MIDODRINE 5 MG TAB PO SCH ×2 (12:44→17:10)
[2018-04-15] MEDS ORDERED: LIDOCAINE 1% INJ 10MG/ML (20 ML MDV) ONE (12:53)
[2018-04-15] MEDS ORDERED: LIDOCAINE 1% INJ 10MG/ML (20 ML MDV) SQ ONE (13:36)
[2018-04-15] MEDS ORDERED: IOPAMIDOL-250 50ML BTL IV ONE ×2 (14:00)
--- NOTE | 2018-04-15 14:08 | PN ---
PROGRESS NOTE DATE OF SERVICE: 04/15/2018 This patient was seen again on the above date. She has been hemodynamically more stable. She has poor urine output and is imminently going down to the recyclable materials sorter for dialysis catheter placement. She is sleepy but arousable. Remains on BiPAP. On physical examination, blood pressure is 95/72, respiratory rate of 15, pulse rate of 86, temperature 97.5. Oxygen saturation on 35% FiO2 on BiPAP is 100%. HEENT reveals pupils that are equal. BiPAP is in place. Chest reveals decreased breath sounds in the bases. No wheeze. Cardiovascular system is in S1, S2. Abdomen is soft. There is 1+ to 2+ pedal edema. LABS: White count 11.8, hemoglobin 8.8. PT/INR 1.4. Sodium 136, potassium 4.7, chloride 105, bicarb 18, BUN 27, creatinine of 4.19. IMPRESSION AT THIS TIME: 1. Acute on chronic respiratory failure. 2. Sarcoidosis. 3. Obesity. 4. Opiate dependence with chronic pain. 5. Acute on chronic renal failure. 6. Metabolic encephalopathy. At this point in time I agree with consideration for dialysis. Continue her on subcutaneous heparin for DVT prophylaxis. Continue her on IV steroids, in part due to her sarcoidosis, but also due to the possibility of adrenal insufficiency. Her prognosis at this time is guarded. MMODL / IJN: [id number] /
--- NOTE | 2018-04-15 14:23 | CONS ---
DATE OF CONSULTATION: 04/15/2018 This patient is a 47-year-old female. She has been admitted with multiple medical problems. I was consulted for acute kidney injury for placement of the dialysis catheter. The patient has history of hypertension, suspected secondary to sepsis, history of hyponatremia secondary to hypervolemia. The patient also has a history of acute respiratory failure, on BiPAP, history of congestive heart failure, ejection fraction of 50%. The patient was seen in her room. Patient has a history of obesity. She has a very short neck and patient's abdomen is soft. Chest has a few crackles around the lung bases. The patient's femorals are very deep and 1+. PLAN: Placement of dialysis catheter. Patient was taken to the golf course laborer for this procedure. Risks and complications, including bleeding, infection, thrombosis, have been discussed. MMODL / NIGEL: [id number] / [email or web address]
--- NOTE | 2018-04-15 15:38 | OP ---
OPERATIVE REPORT PREOPERATIVE DIAGNOSE: Acute on chronic renal failure. PROCEDURE: Ultrasound-guided 28 cm dialysis catheter placed via right femoral approach. The patient was brought to the operating room. Right groin were prepped and draped in a sterile manner. Ultrasound-guided micropuncture was performed in the right common femoral vein. Micropuncture guidewire was passed. A 4-Bulgarian dilator went on top of the guidewire. Then we passed a regular guidewire, checked the C-arm and it was in the inferior vena cava. Then the dilator was advanced. Sheath was advanced on top of the guidewire. Through the sheath we placed a 28 cm cuffed catheter. We did a vena cavogram, injecting 10 mL of dye. The tip of the catheter was in the inferior vena cava. The patient had some oozing from the incision site of the catheter. Pressure was held and pressure dressing applied. Patient was transferred to the intensive care unit in stable condition. MMODL / IJN: [id number] /
[2018-04-15] MEDS: NOREPINEPHRINE 16 MG in SODIUM CHLORIDE 0.9% 250 ML IV SCH (16:31)
[2018-04-15 17:24] LABS: Glucose,Whole Blood 141 mg/dL (75-99)
[2018-04-15 20:45] LABS: Glucose,Whole Blood 146 mg/dL (75-99)
[2018-04-15] MEDS: GABAPENTIN 300 MG CAP PO SCH (21:41)
[2018-04-16 05:15] LABS: Anisocytosis Slight; HCT 24.9 % (34.0-46.0); HGB 7.7 gm/dL (11.4-16.0); Hypochromasia Moderate; MCH 29.3 pg (25.0-35.0); MCHC 31.1 g/dL (31.0-37.0); MCV 94.4 fL (80.0-100.0); Macrocytosis Slight; Mean Platelet Volume 7.9; Platelet Count 215 k/uL (150-450); Poikilocytosis Slight; RBC 2.64 m/uL (3.80-5.40); RDW 18.7 % (11.5-15.5)
[2018-04-16 05:24] LABS: Albumin 2.5 g/dL (3.5-5.0); Calcium 6.5 mg/dL (8.4-10.2); Phosphorus 5.9 mg/dL (2.5-4.5); Potassium 4.5 mmol/L (3.5-5.1); Total Bilirubin 2.5 mg/dL (0.2-1.3); Total Protein 4.8 g/dL (6.3-8.2)
[2018-04-16 05:27] LABS: INR 1.3 (<1.2); Partial Thromboplastin Time 25.2 sec (22.0-30.0); Prothrombin Time 12.4 sec (9.0-12.0)
[2018-04-16] MEDS: methylPREDNISolone SOD SUCCI 125 MG/2 ML VIAL IV SCH ×4 (05:28→23:04)
[2018-04-16 06:28] LABS: Band Neutrophils % 6 %; Lymphocytes # (M) 2.04 k/uL (1.0-4.8); Metamyelocytes # (M) 0.61 k/uL (0); Metamyelocytes % 6 %; Myelocytes % 1 %; Neutrophils % (M) 68 %; Nucleated Red Blood Cells 33 /100 WBC (0-0); Total Cells Counted 200; WBC 10.2 k/uL (3.8-10.6)
[2018-04-16 06:29] LABS: Target Cells Present
[2018-04-16 06:30] LABS: Basophilic Stippling Present; Polychromasia Present
[2018-04-16] MEDS: INSULIN ASPART 100 UNIT/ML 1 ML 10 ML VIAL SQ SCH ×4 (07:00→20:32)
[2018-04-16 07:09] LABS: Glucose,Whole Blood 141 mg/dL (75-99)
[2018-04-16] MEDS: ALBUTEROL NEBULIZED 2.5 MG/3 ML INHALATION SCH ×3 (07:30→19:20)
[2018-04-16] MEDS: BUDESONIDE 0.5 MG/2 ML NEBU INHALATION SCH ×2 (07:30→19:20)
[2018-04-16] MEDS: FLUTICASONE 110 MCG INHALER INHALATION SCH ×2 (07:31→19:22)
--- NOTE | 2018-04-16 07:45 | PN ---
PROGRESS NOTE DATE OF SERVICE: 04/15/2018. REASON FOR FOLLOWUP: 1. VRE urinary tract infection. 2. Bilateral abdominal fold and groin cutaneous candidiasis and left upper arm wound. INTERVAL HISTORY: The patient is afebrile. The patient continues to have a problem with renal failure. A dialysis catheter has been placed today for hopefully dialysis tomorrow. The patient remains to be weak, lethargic and has been on BiPAP. Unable to provide any history but not on any pressor support. Oral intake remains to be poor and no diarrhea reported by the nursing staff. EXAMINATION: Blood pressure is 100/62 with a pulse of 90, temperature of 98, she is 100% on BiPAP. General description is a middle-aged female lying in bed in no distress. Respiratory system unlabored breathing with decreased breath sounds at the bases. No wheeze. Heart S1, S2. Regular rate and rhythm. ABDOMEN: Soft, no tenderness. LABS: Hemoglobin is 8.8, white count 11.8. BUN of 27, creatinine 4.19. DIAGNOSTIC IMPRESSION/PLAN: 1. Patient with vancomycin-resistant Enterococcus urinary tract infection. Patient is currently covered with daptomycin to continue for now. 2. Patient with bilateral abdominal fold and groin cutaneous candidiasis, continue Nystatin powder. 3. Left arm wound. Local care with Aquacel dressing. Family was present at bedside. Questions answered. MMODL / IJN: [id number] /
[2018-04-16 07:48] LABS: Glucose,Whole Blood 146 mg/dL (75-99)
[2018-04-16] MEDS: MIDODRINE 5 MG TAB PO SCH ×3 (08:39→16:55)
[2018-04-16] MEDS: CALCIUM ACETATE 667 MG CAP PO SCH ×3 (08:39→16:55)
[2018-04-16] MEDS: BETHANECHOL 25 MG TAB PO SCH ×4 (08:40→21:40)
[2018-04-16] MEDS: DULoxetine HCL 30 MG CAPSULE.DR PO SCH ×2 (08:40→20:33)
[2018-04-16] MEDS: METHADONE 10 MG TAB PO SCH (08:40)
[2018-04-16] MEDS: NYSTATIN 100,000 UNIT/GM POWD 15 GM TOPICAL SCH ×2 (08:41→20:34)
[2018-04-16] MEDS: SODIUM BICARBONATE TAB 650 MG TAB PO SCH ×3 (08:41→21:40)
[2018-04-16] MEDS: CLOTRIMAZOLE/BETAMETH 1-0.05% CREAM 45 GM TUBE TOPICAL SCH ×2 (08:42→20:33)
[2018-04-16] MEDS: ZINC OXIDE 20% OINT 28.4 GM TUBE TOPICAL SCH ×4 (08:42→20:35)
[2018-04-16] MEDS: PETROLATUM, WHITE OINT 50 GM TUBE TOPICAL SCH ×2 (08:42→20:34)
[2018-04-16] MEDS: PANTOPRAZOLE 40 MG/10 ML VIAL IVP SCH (08:45)
[2018-04-16] MEDS: PIPERACILLIN-TAZOBACTAM 3.375 GM in DEXTROSE/WATER 1 50ML.BAG IVPB SCH ×2 (08:45→20:34)
--- NOTE | 2018-04-16 09:14 | P.PN ---
Subjective Progress Note Date: 04/16/18 Principal diagnosis: Acute kidney injury and volume overload Seen and examined for the follow-up of acute kidney injury. Started on the Levophed this morning for low blood pressures.still on BiPAP. [place] was placed in the right groin yesterday afternoon but she had blood loss around the site and was advised to hold off to dialysis yesterday. Today no further oozing. Objective - Vital Signs Vital signs: Vital Signs Temp 97.6 F 04/16/18 08:00 Pulse 93 04/16/18 09:00 Resp 14 04/16/18 09:00 BP 102/56 04/16/18 09:00 Pulse Ox 100 04/16/18 09:00 Intake & Output 04/15/18 04/16/18 04/16/18 18:59 06:59 18:59 Intake Total 7633.828 6733.004 360 Output Total 81 60 10 Balance 1394.360 1879.004 350 Weight 184.4 kg Intake: IV 1255 1005 310 Dextrose 5% in Water 1, 1200 1000 300 000 ml @ 100 mls/hr IV . Q11H [facility] with Sodium Bicarb (1 Meq/ml) 100 ml Rx#:[id number] ns 55 5 10 Intake, IV Titration 109.772 64.004 50 Amount Norepinephrine 16 mg In 59.772 64.004 Sodium Chloride 0.9% 250 ml @ Titrate IV .Q0M [facility] Rx#:[id number] Piperacillin-Tazobactam 3 50 50 .375 gm In Dextrose/Water 1 50ml.bag @ 12.5 mls/hr IVPB Q12HR [facility] Rx#: [id number] Output: Urine 80 60 10 Stool 1 Other: Voiding Method Indwelling Catheter Indwelling Catheter # Bowel Movements 1 - Exam No acute distress. On BiPAP Lungs clear anteriorly S1-S2 heard Lopez catheter 3+ edema Right groin [place] - Labs CBC & Chem 7: 04/16/18 05:05 04/16/18 05:05 Labs: Abnormal Lab Results - Last 24 Hours (Table) 04/15/18 04/15/18 04/15/18 Range/Units 12:17 17:12 20:33 RBC (3.80-5.40) m/uL Hgb (11.4-16.0) gm/dL Hct (34.0-46.0) % RDW (11.5-15.5) % Metamyelocytes # (Man) (0) k/uL Myelocytes # (Manual) (0) k/uL Nucleated RBCs (0-0) /100 WBC PT (9.0-12.0) sec INR (<1.2) Sodium (137-145) mmol/L Carbon Dioxide (22-30) mmol/L BUN (7-17) mg/dL Creatinine (0.52-1.04) mg/dL Glucose (74-99) mg/dL POC Glucose (mg/dL) 148 H 141 H 146 H (75-99) mg/dL Calcium (8.4-10.2) mg/dL Phosphorus (2.5-4.5) mg/dL Total Bilirubin (0.2-1.3) mg/dL AST (14-36) U/L ALT (9-52) U/L Alkaline Phosphatase (38-126) U/L Total Protein (6.3-8.2) g/dL Albumin (3.5-5.0) g/dL 04/16/18 04/16/18 04/16/18 Range/Units 05:05 05:05 05:05 RBC 2.64 L (3.80-5.40) m/uL Hgb 7.7 L (11.4-16.0) gm/dL Hct 24.9 L (34.0-46.0) % RDW 18.7 H (11.5-15.5) % Metamyelocytes # (Man) 0.61 H (0) k/uL Myelocytes # (Manual) 0.10 H (0) k/uL Nucleated RBCs 33 H (0-0) /100 WBC PT 12.4 H (9.0-12.0) sec INR 1.3 H (<1.2) Sodium 134 L (137-145) mmol/L Carbon Dioxide 21 L (22-30) mmol/L BUN 32 H (7-17) mg/dL Creatinine 4.55 H (0.52-1.04) mg/dL Glucose 152 H (74-99) mg/dL POC Glucose (mg/dL) (75-99) mg/dL Calcium 6.5 L (8.4-10.2) mg/dL Phosphorus 5.9 H (2.5-4.5) mg/dL Total Bilirubin 2.5 H (0.2-1.3) mg/dL AST 102 H (14-36) U/L ALT 87 H (9-52) U/L Alkaline Phosphatase 316 H (38-126) U/L Total Protein 4.8 L (6.3-8.2) g/dL Albumin 2.5 L (3.5-5.0) g/dL 04/16/18 04/16/18 Range/Units 06:58 07:36 RBC (3.80-5.40) m/uL Hgb (11.4-16.0) gm/dL Hct (34.0-46.0) % RDW (11.5-15.5) % Metamyelocytes # (Man) (0) k/uL Myelocytes # (Manual) (0) k/uL Nucleated RBCs (0-0) /100 WBC PT (9.0-12.0) sec INR (<1.2) Sodium (137-145) mmol/L Carbon Dioxide (22-30) mmol/L BUN (7-17) mg/dL Creatinine (0.52-1.04) mg/dL Glucose (74-99) mg/dL POC Glucose (mg/dL) 141 H 146 H (75-99) mg/dL Calcium (8.4-10.2) mg/dL Phosphorus (2.5-4.5) mg/dL Total Bilirubin (0.2-1.3) mg/dL AST (14-36) U/L ALT (9-52) U/L Alkaline Phosphatase (38-126) U/L Total Protein (6.3-8.2) g/dL Albumin (3.5-5.0) g/dL Assessment and Plan Assessment: #1 oliguric acute kidney injury secondary to ATN from hypotension. #2 hypotension with shock on Levophed suspect secondary to sepsis from VRE urinary tract infection on antibiotics. #3 hyponatremia secondary to hypervolemia. #4 metabolic acidosis multifactorial #5 acute respiratory failure on BiPAP #6 Diastolic CHF with ejection fraction of 50% and moderate pulmonary hypertension #7 diabetes on insulin Plan: #1 with oliguria and volume overload and acidosis refractory to medical treatment discussed with the mother over the phone agreeable for dialysis. #2 [place] catheter was placed in the right groin by vascular team yesterday and plan for hemodialysis today. Was unable to dialyze her yesterday because of her bleeding around the catheter site. #3 monitor strict ins and outs. #4 started on midodrine to maintain blood pressure to help with ultrafiltration. Unable to get her medication because of her decrease in mentation and risk of oral swallowing #5 avoid nephrotoxic agents and hypotensive episodes. #6 discontinue bicarb drip once on dialysis.
[2018-04-16] MEDS: DEXTROSE 5% IN WATER 1,000 ML with SODIUM BICARB (1 MEQ/ML) 100 ML IV SCH ×2 (09:47→20:21)
[2018-04-16] MEDS: HEPARIN SODIUM,PORCINE 5,000 UNIT/ML 1 ML VIAL SQ SCH ×3 (09:49→23:05)
[2018-04-16 11:51] LABS: Glucose,Whole Blood 128 mg/dL (75-99)
--- NOTE | 2018-04-16 11:56 | P.PN ---
Subjective Progress Note Date: 04/16/18 This is 47 years old female with past medical history significant for sarcoidosis, morbid obesity, diabetes mellitus and multiple comorbidities, residence of care home who was recently discharged from [facility] presents today from care home with hypotension, slight tachycardia and hypoxia. In the emergency department blood pressure was below 90/60, heart rate in the 110 area, oxygen was in the mid 80s patient was started on oxygen and blood work showed elevated creatinine patient was sent to VQ scan which showed intermediate probability with limited examination due to motion factor and patient was started on heparin drip for assumption of pulmonary embolism. Patient is poor historian and unable to provide detailed information and was refusing care per nursing staff since admission to the floor including her medication and using her BiPAP on an as-needed basis. Patient currently is denying chest pain, shortness breath, nausea, vomiting, abdominal pain or productive cough 04/10: Received call today from the nursing staff the patient was really sick, blood pressure was low and was lethargic and sleeping well on BiPAP most the morning and lactic acid was elevated at 5.8 last evening.. She was unable to take her medications or eat this morning. She has increased edema. Patient has only had 150 mL of urine output overnight. She does have a Lopez catheter in. There was no IV access. Patient has been seen by by nephrology and cortisol level ordered along with Solu-Cortef and Lasix 60 mg IV once. Prednisone was discontinued. Patient was transferred into the intensive care unit and consult requested with Dr. Robin for intensive care management. Methadone dose changed to 50 mg daily which is her current dose at [facility]. Diarrhea has resolved. 04/11: Repeat chest x-ray reveals stable cardiomegaly. PICC placement. Patient has been seen by Dr. Colon and vancomycin and daptomycin started, continue Zosyn. Santyl to lower extremity cellulitis. Patient has been seen by Dr. Robin with concern for possible left lower lobe pneumonia, small left pleural effusion and dehydration. This morning, Dr. Moran ordered Lasix 40 mg IV once , IV dextrose 50% and regular insulin. Cortisol level was normal. Steroids are Solu-Medrol 60 mg every 6 hours. Midodrine was started yesterday for blood pressure support. Blood pressure is much improved today. Hemoglobin is 9.3, sodium 131 and potassium 5.3, creatinine 2.99. Capillary blood glucose running between 117 and 134. Lactic acid is now down to 1.9. Vancomycin level 25.6. Patient has been hemodynamically stable, afebrile. Patient has been on BiPAP and this morning is on nasal cannula, she remains lethargic but more alert from yesterday. Lopez catheter is in place. She continues to have lower extremity edema and now with weeping. No diarrhea. Patient has not had a bowel movement since 04/10. Urine output has been adequate at 50 mL per hour for the past 4 hours. She is complaining of nausea and abdominal discomfort for which lipase and CAT scan of the abdomen and pelvis ordered with oral contrast only. 04/12: Patient remains in intensive care unit. She has been hemodynamically stable and Midodrine will be discontinued. Lopez catheter remains in place with good urine output. She had a large bowel movement last evening and a small soft bowel movement today. Creatinine is 3.36 and BUN 17.. Heart rates have been elevated. Patient is more alert today from yesterday. GI consult added for elevated liver function tests and abdominal ultrasound ordered. 04/13: Cardiology consult was added yesterday due to tachycardia and patient was started on Lopressor 12.5 mg twice daily and hold for systolic blood pressure less than 90. TSH was 1.620. She has been on BiPAP during the night. Abdominal ultrasound reveals hepatomegaly correlate for hepatic steatosis, diffuse hepatocellular disease or hepatitis. There is ringing down artifact involving the gallbladder wall which can occasionally be seen with adenomyomatosis. Repeat liver function tests are increasing with total bilirubin 1.8, AST 82, ALT 54, alkaline phosphatase 278. GI is following. BUN 20 and creatinine 3.67, urine output low. She has epigastric tenderness and protonix added to omeprazole. Patient eating very little and refused nephro today. She is cleared to be transferred to Cardiac Step down. 04/14: Patient is more lethargic today. She is refusing to open her mouth. She has had no oral medications nor oral intake. Yesterday she ate a little bit of fluid and Magic cups. She is currently on BiPAP at FiO2 of 35%. Urine output by the time of evaluation was only 25-30 mL. Lasix 80 mg IV ordered by Dr. Moran. Patient may require hemodialysis if renal function does not improve. Today creatinine is at 3.99. Oral sodium bicarb will be switched over to drip. GI is following and has been asked to place Dobbhoff. Ammonia level came back normal at 18. Liver function tests are also worsening. 04/15: Patient is awake this morning on BiPAP. Very little communication but nods her head. She is complaining of nausea and abdominal pain. She had a bowel movement early this morning. Renal function is worse with creatinine of 4.9, hemoglobin 8.8. Nephrology has ordered consult with vascular for [place] catheter placement with plan for hemodialysis today, Tuesday and Tuesday. Urine output has been less than 200 mL over the past 24 hours. Patient to continue on sodium bicarb drip. Nephrology is added back in mid drain. Dobbhoff to be placed today. 04/16: Patient remains in the intensive care unit. She was started on Levophed this morning for blood pressure. She is still on BiPAP. [place] catheter was placed by Dr. Winter yesterday to the right groin but she did have blood loss and was advised to hold off on dialysis. This is improved with no further bleeding. She continues to have scant amount of urine output. Plan from nephrology is for dialysis today she was resumed back on admitted draining yesterday. Bicarb drip is to be discontinued once dialysis is started. Patient is sleeping but awakens to verbal stimuli. She is able to nod to answer questions. She has generalized anasarca. Noted that she has gained 20 kg since admission. She has not had Dobbhoff placed by GI Review Of Systems: Constitutional: No fever, no chills, no night sweats. +weakness, +fatigue, + lethargy. + daytime sleepiness. EENT: No headache. No epistaxis. No sore throat. Lungs: + shortness of breath, + cough, no sputum production. No wheezing. Cardiovascular: No chest pain, + lower extremity edema. No palpitations. No paroxysmal nocturnal dyspnea. No orthopnea. No lightheadedness or dizziness. No syncopal episodes. Abdominal: +abdominal pain. No nausea, vomiting. No diarrhea, resolved. No constipation. No bloody or tarry stools. + loss of appetite. Genitourinary: No dysuria, increased frequency, urgency. + urinary retention. Musculoskeletal: + myalgias. + muscle weakness, + gait dysfunction. Integumentary: No rash or pruritus. + wheeping lower legs Neurological: + mental status change. Endocrine: + abnormal blood sugars. Objective - Vital Signs Vital signs: Vital Signs Temp 97.6 F 04/16/18 08:00 Pulse 92 04/16/18 10:00 Resp 12 04/16/18 10:00 BP 84/66 04/16/18 10:00 Pulse Ox 100 04/16/18 10:00 Intake & Output 04/15/18 04/16/18 04/16/18 18:59 06:59 18:59 Intake Total 1639.756 2345.004 360 Output Total 81 60 10 Balance 0096.999 3963.004 350 Weight 184.4 kg Intake: IV 1255 1005 310 Dextrose 5% in Water 1, 1200 1000 300 000 ml @ 100 mls/hr IV . Q11H [facility] with Sodium Bicarb (1 Meq/ml) 100 ml Rx#:[id number] ns 55 5 10 Intake, IV Titration 109.772 64.004 50 Amount Norepinephrine 16 mg In 59.772 64.004 Sodium Chloride 0.9% 250 ml @ Titrate IV .Q0M [facility] Rx#:[id number] Piperacillin-Tazobactam 3 50 50 .375 gm In Dextrose/Water 1 50ml.bag @ 12.5 mls/hr IVPB Q12HR [facility] Rx#: [id number] Output: Urine 80 60 10 Stool 1 Other: Voiding Method Indwelling Catheter Indwelling Catheter Indwelling Catheter # Bowel Movements 1 - Exam Gen: This is a morbidly obese 47-year-old female. She is in ICU bed and appears to be in no acute distress. She is lethargic and sleeping but arouses to verbal stimuli HEENT: Head is atraumatic, normocephalic. Pupils equal, round. Sclerae is anicteric. Hearing grossly normal. NECK: Supple. No JVD. No lymphadenopathy. No thyromegaly. LUNGS: Diminished bilaterally. Clear to auscultation. No wheezes or rhonchi. No intercostal retractions. HEART: Regular rate and rhythm. No murmur. ABDOMEN: Morbidly obese. Soft. Bowel sounds are present. No masses. Positive epigastric tenderness. Lopez catheter draining clear benjy urine. EXTREMITIES: 2+ pedal edema with serous weeping. No calf tenderness. NEUROLOGICAL: Patient is arousable and lethargic. Generalized weakness. She is able to nod her head to answer questions - Labs CBC & Chem 7: 04/16/18 05:05 04/16/18 05:05 Labs: Abnormal Lab Results - Last 24 Hours (Table) 04/15/18 04/15/18 04/15/18 Range/Units 12:17 17:12 20:33 RBC (3.80-5.40) m/uL Hgb (11.4-16.0) gm/dL Hct (34.0-46.0) % RDW (11.5-15.5) % Metamyelocytes # (Man) (0) k/uL Myelocytes # (Manual) (0) k/uL Nucleated RBCs (0-0) /100 WBC PT (9.0-12.0) sec INR (<1.2) Sodium (137-145) mmol/L Carbon Dioxide (22-30) mmol/L BUN (7-17) mg/dL Creatinine (0.52-1.04) mg/dL Glucose (74-99) mg/dL POC Glucose (mg/dL) 148 H 141 H 146 H (75-99) mg/dL Calcium (8.4-10.2) mg/dL Phosphorus (2.5-4.5) mg/dL Total Bilirubin (0.2-1.3) mg/dL AST (14-36) U/L ALT (9-52) U/L Alkaline Phosphatase (38-126) U/L Total Protein (6.3-8.2) g/dL Albumin (3.5-5.0) g/dL 04/16/18 04/16/18 04/16/18 Range/Units 05:05 05:05 05:05 RBC 2.64 L (3.80-5.40) m/uL Hgb 7.7 L (11.4-16.0) gm/dL Hct 24.9 L (34.0-46.0) % RDW 18.7 H (11.5-15.5) % Metamyelocytes # (Man) 0.61 H (0) k/uL Myelocytes # (Manual) 0.10 H (0) k/uL Nucleated RBCs 33 H (0-0) /100 WBC PT 12.4 H (9.0-12.0) sec INR 1.3 H (<1.2) Sodium 134 L (137-145) mmol/L Carbon Dioxide 21 L (22-30) mmol/L BUN 32 H (7-17) mg/dL Creatinine 4.55 H (0.52-1.04) mg/dL Glucose 152 H (74-99) mg/dL POC Glucose (mg/dL) (75-99) mg/dL Calcium 6.5 L (8.4-10.2) mg/dL Phosphorus 5.9 H (2.5-4.5) mg/dL Total Bilirubin 2.5 H (0.2-1.3) mg/dL AST 102 H (14-36) U/L ALT 87 H (9-52) U/L Alkaline Phosphatase 316 H (38-126) U/L Total Protein 4.8 L (6.3-8.2) g/dL Albumin 2.5 L (3.5-5.0) g/dL 04/16/18 04/16/18 Range/Units 06:58 07:36 RBC (3.80-5.40) m/uL Hgb (11.4-16.0) gm/dL Hct (34.0-46.0) % RDW (11.5-15.5) % Metamyelocytes # (Man) (0) k/uL Myelocytes # (Manual) (0) k/uL Nucleated RBCs (0-0) /100 WBC PT (9.0-12.0) sec INR (<1.2) Sodium (137-145) mmol/L Carbon Dioxide (22-30) mmol/L BUN (7-17) mg/dL Creatinine (0.52-1.04) mg/dL Glucose (74-99) mg/dL POC Glucose (mg/dL) 141 H 146 H (75-99) mg/dL Calcium (8.4-10.2) mg/dL Phosphorus (2.5-4.5) mg/dL Total Bilirubin (0.2-1.3) mg/dL AST (14-36) U/L ALT (9-52) U/L Alkaline Phosphatase (38-126) U/L Total Protein (6.3-8.2) g/dL Albumin (3.5-5.0) g/dL Assessment and Plan Plan: 1. Sepsis with septic shock secondary to urinary tract infection with lactic acidosis. Intensive care unit management. PICC line ordered for IV access. Consults with Dr. Robin and Dr. Colon appreciated. Continue daptomycin and Zosyn. IVF per Dr. Moran 2. Intermediate probability of pulmonary embolism ruled out. Pulmonary medicine is following 3. Acute respiratory failure on chronic respiratory failure with hypoxia. Continue albuterol nebulizer treatments every 6 hours, DuoNeb treatments every 4 hours as needed, Pulmicort twice daily, Solu-Medrol. 4. Morbid obesity with BMI of 59. 5. Neurogenic bladder with incontinence. Urinary retention requiring Lopez catheter placement. 6. Diabetes mellitus type 2 insulin-dependent. Metformin on hold. NovoLog scale before meals and at bedtime. 7. Debility and deconditioning. 8. Dehydration. 9. Acute kidney injury and ATN likely secondary to dehydration with hyperkalemia. Consult with nephrology appreciated. [place] catheter has been placed by Dr. Winter. Patient to start hemodialysis today. Admitted during resumed and patient has been started on Levofed. 10. Sarcoidosis following with [facility] on daily dose of steroids. 11. Hyperkalemia 12. Metabolic encephalopathy secondary to sepsis, improving. 13. Chronic pain. Methadone currently at 50 mg daily 14. Abdominal pain with worsening liver function tests mostly secondary to heart failure and congestion. 15. Severe protein calorie malnutrition. Request a GI place Dobbhoff and start tube feedings. Dietitian is following. Pre-albumin ordered. 16. Metabolic acidosis. Sodium bicarb will be switched over to IV until Dobbhoff is placed. 17. GERD and possible gastritis. Continue Pepcid and Protonix CODE STATUS: Full code Discharge plan: Return to [facility] as long-term resident. Patient is known to have guardian. (Sister and father) Impression and plan of care have been directed as dictated by the signing physician. Jeanne Roca nurse practitioner acting as scribe for signing physician.
--- NOTE | 2018-04-16 13:21 | PN ---
PROGRESS NOTE DATE OF SERVICE: 04/16/2018. HISTORY: The patient is a 47-year-old pleasant white female admitted to the hospital with altered mental status, acute kidney injury, is presently undergoing hemodialysis after placement of dialysis catheter yesterday. The patient has been extremely lethargic and remains on BiPAP on low-dose Levophed. Yesterday she was somewhat awake, but today she has been quite lethargic. So far has not been able to have any oral intake for the last 2 days because of her overall mentation. We were consulted for Dobbhoff tube placement today but the patient currently just started on hemodialysis. PHYSICAL EXAMINATION: She is very lethargic. VITAL SIGNS: Stable. Blood pressure is 100/62, pulse is 100, temperature 98. HEENT: Examination unremarkable. Conjunctivae pink. Sclerae anicteric. Oral cavity no lesions. NECK: No JVD or lymph node enlargement. CHEST: Clear to auscultation. ABDOMEN: Soft, obese. Bowel sounds are positive. No organomegaly. LABS: From today, hemoglobin 7.7, WBC 10.2, platelets are 318,000. INR is 1.3. BUN is 32 and creatinine 4.55, T bilirubin is 2.5, AST is 102, ALT is 87, alkaline phosphatase 316. IMPRESSION: 1. Elevated liver function tests, most likely related to sepsis/septic shock, which are gradually improving. 2. Altered mental status. Probably related to metabolic encephalopathy, combination of uremia, and hypoxic respiratory failure. RECOMMENDATIONS: Monitor LFTs closely. The patient is currently undergoing hemodialysis and hence the Dobbhoff tube placement will be postponed until tomorrow. In the meantime, if she has any improvement in her mental status, we can start her on a diet as suggested by dietitian. For now, we will follow her closely during hospital stay. Thank you for this consultation. MMODL / IJN: [id number] /
--- NOTE | 2018-04-16 15:21 | PN ---
PROGRESS NOTE DATE OF SERVICE: 04/16/2018 She has been hemodynamically stable. She underwent dialysis with removal of 1.7 L. She is on BiPAP, but is more awake and alert. On physical examination, vitals are stable. She is afebrile. Chest reveals decreased breath sounds. Cardiovascular system reveals an S1, S2. Abdomen is soft. There is 2+ pedal edema. IMPRESSION: 1. Acute on chronic respiratory failure, which is multifactorial in part due to methadone need obesity with possible central sleep apnea versus obstructive sleep apnea as previous sleep study did not show obstructions, sarcoidosis and asthma. 2. Sarcoidosis for which she is requiring IV steroids. 3. Acute on chronic renal failure for which patient has been started on dialysis. 4. Obesity. At this point in time, continue her on her current medications which were reviewed. Her prognosis is guarded. I did discuss my thoughts with the primary care physician, Dr. Vizcarra. MMEDNA / SHAYN: [id number] /
[2018-04-16] MEDS: NOREPINEPHRINE 16 MG in SODIUM CHLORIDE 0.9% 250 ML IV SCH (16:56)
[2018-04-16 17:18] LABS: Glucose,Whole Blood 157 mg/dL (75-99)
--- NOTE | 2018-04-16 18:24 | P.PN ---
Subjective Progress Note Date: 04/15/18 (Late entry note) Principal diagnosis: Acute renal failure, Severe sepsis and septic shock associated with urinary tract infection, pulmonary sarcoidosis, severe morbid obesity, sleep disorder breathing and sleep apnea, uncontrolled hyperglycemia and type 2 diabetes mellitus, acute renal failure, chronic pain syndrome , 04/14/2018 Patient has been more lethargic throughout the day, has been on BiPAP 14/6 with 35% oxygen patient is gently being rehydrated patient does have diffuse anasarca however chest x-ray continue to be normal with normal heart size no effusion is seen him a subtle basal atelectasis cannot be excluded, and labs from today reviewed white cell count remains stable hemoglobin is unchanged platelet count stable as well, renal functions remains poor BUN/ creatinine continued to get worse 23 and 3.99 urine output is very minimal, patient has not received her methadone today, recommend to DC methadone, it appears that patient may need dialysis/ultrafiltration for generalized anasarca and worsening renal failure 04/13/2018, patient seen eval reexamined during the rounds care plan discussed the renal service patient's chest x-ray unremarkable oxygen is stable, patient remains on BiPAP as needed along with oxygen patient has not been using the BiPAP machine very regularly have discussed with the family as well as patient importance to using the BiPAP regularly, I have also advised to stop or discontinue methadone as it may be interfering with the mental status for now dose has been cut down to half, labs reviewed medications reviewed 04/12/2018, patient seen eval examined during the rounds clinically patient is doing better in terms of hemodynamics but remains intermittently tachycardic which is not much change from baseline blood pressure has been stable, patient did not use her BiPAP machine last night, has been more somnolent she is lethargic but readily arousable, she does answer in simple words, moving all 4 extremities, she was noted to have snoring as well as apneic events, family is present at bedside and have discussed with them at length about importance of using the BiPAP machine each night and when necessary during the day will put the BiPAP again with a setting of 14/5 with 35% oxygen, potassium is up slightly urine culture is positive for Enterococcus faecium/VRE, patient is on daptomycin and Zosyn, IV fluids are 100 mL an hour, BUN/creatinine slightly up and baseline 04/11/2018, patient seen eval examined in ICU patient the continue to have issues associated aches and pain she remains a poor historian however does describe generalized pain throughout the body, patient has been nauseous as well a computed tomography scan of the abdominal and pelvis is being ordered, her lactic acid has improved with the fluid resuscitation, patient has been on broad-spectrum antibiotics I urine culture is positive for enterococcus Ammann labs from today reviewed sodium is 1:30 and production of 5.3 her BUN/ creatinine is 15 and 2.99, overall sodium remains stable hyperkalemia is present renal functions continued to be marginal liters lactic acid check was 1.9, chest x-ray remains stable PICC line site is stable borderline cardiomegaly , patient is getting broad-spectrum antibiotics with Vanco mycin, daptomycin and Zosyn patient is a getting therapy for the lower extremity cellulitis as well along with local care 47-year-old morbidly obese female who was seen evaluated examined in the ICU this patient has been a resident of [facility], patient has problems associated with chronic renal insufficiency, sarcoidosis severely morbidly obese was found to have blood pressure only 60s systolic at the [facility] EMS was notified it appears that blood pressure has been extremely fluctuating it was noted to be 90 by EMS however subsequently was in 150 patient was tachypneic and tachycardic as well no chest pain was present overall patient is a poor historian, patient was eventually admitted into the hospital from the emergency department [facility] patient underwent a VQ scan with indeterminate findings, CT angiogram be performed due to elevated creatinine A[place]am patient has been using BiPAP off and on with a IPAP of 14 and EPAP of 5 and 35% oxygen, patient has been comfortable now she has a low urine output she is getting a fluid challenge of 500 mL crystalloid due to elevated lactic acid followed by 100 mL an hour patient is also on Solu-Cortef which is being switched to Solu-Medrol, currently patient is on bronchodilators and continuation of home medications, heparin for DVT prophylaxis, due to chronic hypertension patient is on midodrine along with broad-spectrum antibiotics along with Zosyn and vancomycin, urine is positive for group D enterococcus, other significant labs were noted to have a lactic acid of 5.8 came down to 3.2 , BUN/creatinine remains stable 40 and 2.93 much chest x-ray revealed cardiomegaly small left-sided pleural effusion with subsegmental atelectasis, patient was transferred to ICU for hypotension and low urine output and elevated lactic acid where she was seen evaluated examined Objective - Vital Signs Vital signs: Vital Signs Temp 97.7 F 04/16/18 17:00 Pulse 99 04/16/18 18:00 Resp 14 04/16/18 18:00 BP 96/67 04/16/18 18:00 Pulse Ox 100 04/16/18 18:00 Intake & Output 04/15/18 04/16/18 04/16/18 18:59 06:59 18:59 Intake Total 6936.349 5331.004 1339.769 Output Total 81 60 1730 Balance 5721.835 3487.004 -390.231 Weight 184.4 kg Intake: IV 1255 1005 1255 Dextrose 5% in Water 1, 1200 1000 1200 000 ml @ 100 mls/hr IV . Q11H LESLIE with Sodium Bicarb (1 Meq/ml) 100 ml Rx#:[id number] ns 55 5 55 Intake, IV Titration 109.772 64.004 84.769 Amount Norepinephrine 16 mg In 59.772 64.004 34.769 Sodium Chloride 0.9% 250 ml @ Titrate IV .Q0M LESLIE Rx#:[id number] Piperacillin-Tazobactam 3 50 50 .375 gm In Dextrose/Water 1 50ml.bag @ 12.5 mls/hr IVPB Q12HR LESLIE Rx#: [id number] Output: Urine 80 60 30 Stool 1 Other 1700 Other: Voiding Method Indwelling Catheter Indwelling Catheter Indwelling Catheter # Bowel Movements 1 - Exam Gen: This is a morbidly obese 47-year-old Afro [place] female. She is in bed and appears to be in no acute distress, patient sitting upright on the bed leaning backwards awake no obvious distress HEENT: Head is atraumatic, normocephalic. Pupils equal, round. Sclerae is anicteric. Hearing grossly normal. NECK: Supple. No JVD. No lymphadenopathy. No thyromegaly. LUNGS: Diminished bilaterally. Clear to auscultation. No wheezes or rhonchi. No intercostal retractions. Has been on BiPAP support continuously HEART: Regular rate and rhythm. No murmur. ABDOMEN: Morbidly obese. Soft. Bowel sounds are present. No masses. No tenderness. EXTREMITIES: 2+ pedal edema. Chronic skin inflammatory changes early cellulitis cannot be excluded No calf tenderness. No redness. NEUROLOGICAL: Patient is mostly somnolent but arousable on physical and verbal stimuli awake, alert and oriented x2. Generalized weakness. - Labs CBC & Chem 7: 04/16/18 05:05 04/16/18 05:05 Labs: Abnormal Lab Results - Last 24 Hours (Table) 04/15/18 04/16/18 04/16/18 Range/Units 20:33 05:05 05:05 RBC 2.64 L (3.80-5.40) m/uL Hgb 7.7 L (11.4-16.0) gm/dL Hct 24.9 L (34.0-46.0) % RDW 18.7 H (11.5-15.5) % Metamyelocytes # (Man) 0.61 H (0) k/uL Myelocytes # (Manual) 0.10 H (0) k/uL Nucleated RBCs 33 H (0-0) /100 WBC PT (9.0-12.0) sec INR (<1.2) Sodium 134 L (137-145) mmol/L Carbon Dioxide 21 L (22-30) mmol/L BUN 32 H (7-17) mg/dL Creatinine 4.55 H (0.52-1.04) mg/dL Glucose 152 H (74-99) mg/dL POC Glucose (mg/dL) 146 H (75-99) mg/dL Calcium 6.5 L (8.4-10.2) mg/dL Phosphorus 5.9 H (2.5-4.5) mg/dL Total Bilirubin 2.5 H (0.2-1.3) mg/dL AST 102 H (14-36) U/L ALT 87 H (9-52) U/L Alkaline Phosphatase 316 H (38-126) U/L Total Protein 4.8 L (6.3-8.2) g/dL Albumin 2.5 L (3.5-5.0) g/dL 04/16/18 04/16/18 04/16/18 Range/Units 05:05 06:58 07:36 RBC (3.80-5.40) m/uL Hgb (11.4-16.0) gm/dL Hct (34.0-46.0) % RDW (11.5-15.5) % Metamyelocytes # (Man) (0) k/uL Myelocytes # (Manual) (0) k/uL Nucleated RBCs (0-0) /100 WBC PT 12.4 H (9.0-12.0) sec INR 1.3 H (<1.2) Sodium (137-145) mmol/L Carbon Dioxide (22-30) mmol/L BUN (7-17) mg/dL Creatinine (0.52-1.04) mg/dL Glucose (74-99) mg/dL POC Glucose (mg/dL) 141 H 146 H (75-99) mg/dL Calcium (8.4-10.2) mg/dL Phosphorus (2.5-4.5) mg/dL Total Bilirubin (0.2-1.3) mg/dL AST (14-36) U/L ALT (9-52) U/L Alkaline Phosphatase (38-126) U/L Total Protein (6.3-8.2) g/dL Albumin (3.5-5.0) g/dL 04/16/18 04/16/18 Range/Units 11:40 17:06 RBC (3.80-5.40) m/uL Hgb (11.4-16.0) gm/dL Hct (34.0-46.0) % RDW (11.5-15.5) % Metamyelocytes # (Man) (0) k/uL Myelocytes # (Manual) (0) k/uL Nucleated RBCs (0-0) /100 WBC PT (9.0-12.0) sec INR (<1.2) Sodium (137-145) mmol/L Carbon Dioxide (22-30) mmol/L BUN (7-17) mg/dL Creatinine (0.52-1.04) mg/dL Glucose (74-99) mg/dL POC Glucose (mg/dL) 128 H 157 H (75-99) mg/dL Calcium (8.4-10.2) mg/dL Phosphorus (2.5-4.5) mg/dL Total Bilirubin (0.2-1.3) mg/dL AST (14-36) U/L ALT (9-52) U/L Alkaline Phosphatase (38-126) U/L Total Protein (6.3-8.2) g/dL Albumin (3.5-5.0) g/dL Assessment and Plan Assessment: Persistent somnolence and lethargy we'll continue BiPAP, keep patient nothing by mouth Acute on chronic renal failure Progressive worsening renal function and generalized anasarca agree with plans about hemodialysis/ultrafiltration, discussed with the renal service was consulted vascular surgery to obtain dialysis catheter placement and consider dialysis Acute hypoxic and hypercapnic respiratory failure Severe sepsis and septic shock related to enterococcus urinary tract infection with some complaint component from cellulitis of the both lower extremity Bilateral lower extremity cellulitis Elevated lactic acid/metabolic acidosis multifactorial associated with acute on chronic renal failure, urinary tract infection have improved though her and normalized Pulmonary sarcoidosis with possible left lower lobe pneumonia Somnolence and lethargy due to multifactorial processes including methadone currently on hold Small left-sided pleural effusion Dehydration associated with intravascular volume depletion patient is undergoing intermittent crystalloid challenge Severe morbid obesity and obstructive sleep apnea Plan: Continue BiPAP each night and when necessary during the day Gentle diuresis if possible Agree with the hemodialysis/ultrafiltration, vascular surgery has been consulted as per discussion with renal DC methadone Continue broad-spectrum antibiotics DVT and peptic ulcer disease prophylaxis IV steroids Reviewed labs and radiographic studies ordered for tomorrow, further recommendations pending plan of care as per clinical response of the patient Further recommendations pending plan of care as per clinical response of patient Time with Patient: Greater than 30
--- NOTE | 2018-04-16 18:33 | P.PN ---
Subjective Progress Note Date: 04/16/18 Principal diagnosis: Acute renal failure, Severe sepsis and septic shock associated with urinary tract infection, pulmonary sarcoidosis, severe morbid obesity, sleep disorder breathing and sleep apnea, uncontrolled hyperglycemia and type 2 diabetes mellitus, acute renal failure, chronic pain syndrome 04/16/2018, patient seen eval examined during the rounds she is currently on 5 mics of the levo fed, the old using and bleeding from the dialysis catheter site has improved and resolved now he shouldn't has been planned for dialysis by renal services, hemodynamics status overall stable, remains on BiPAP with IPAP 14 EPAP of 5 with 35% oxygen, labs from today reviewed no chest x-rays performed today we'll plan for tomorrow including labs, and I'll of is being planned by GI services 04/15/2018, patient seen eval examined during rounds, patient remain somnolent but arousable, remains on BiPAP currently on IPAP of 14 and EPAP of 5 with 35% oxygen, labs reviewed white cell count is trickling down is 11,000, hemoglobin remained stable 8.8, creatinine continued to go up is 4.19 now, as per discussion with the renal service proceed with hemodialysis vascular surgery has been consulted, and they have placed and dialysis catheter but patient is hypertensive also some bruising and blood-tinged discharge from the catheter site is present advised to hold on dialysis tonight 04/14/2018 Patient has been more lethargic throughout the day, has been on BiPAP 14/6 with 35% oxygen patient is gently being rehydrated patient does have diffuse anasarca however chest x-ray continue to be normal with normal heart size no effusion is seen him a subtle basal atelectasis cannot be excluded, and labs from today reviewed white cell count remains stable hemoglobin is unchanged platelet count stable as well, renal functions remains poor BUN/ creatinine continued to get worse 23 and 3.99 urine output is very minimal, patient has not received her methadone today, recommend to DC methadone, it appears that patient may need dialysis/ultrafiltration for generalized anasarca and worsening renal failure 04/13/2018, patient seen eval reexamined during the rounds care plan discussed the renal service patient's chest x-ray unremarkable oxygen is stable, patient remains on BiPAP as needed along with oxygen patient has not been using the BiPAP machine very regularly have discussed with the family as well as patient importance to using the BiPAP regularly, I have also advised to stop or discontinue methadone as it may be interfering with the mental status for now dose has been cut down to half, labs reviewed medications reviewed 04/12/2018, patient seen eval examined during the rounds clinically patient is doing better in terms of hemodynamics but remains intermittently tachycardic which is not much change from baseline blood pressure has been stable, patient did not use her BiPAP machine last night, has been more somnolent she is lethargic but readily arousable, she does answer in simple words, moving all 4 extremities, she was noted to have snoring as well as apneic events, family is present at bedside and have discussed with them at length about importance of using the BiPAP machine each night and when necessary during the day will put the BiPAP again with a setting of 14/5 with 35% oxygen, potassium is up slightly urine culture is positive for Enterococcus faecium/VRE, patient is on daptomycin and Zosyn, IV fluids are 100 mL an hour, BUN/creatinine slightly up and baseline 04/11/2018, patient seen eval examined in ICU patient the continue to have issues associated aches and pain she remains a poor historian however does describe generalized pain throughout the body, patient has been nauseous as well a computed tomography scan of the abdominal and pelvis is being ordered, her lactic acid has improved with the fluid resuscitation, patient has been on broad-spectrum antibiotics I urine culture is positive for enterococcus Ammann labs from today reviewed sodium is 1:30 and production of 5.3 her BUN/ creatinine is 15 and 2.99, overall sodium remains stable hyperkalemia is present renal functions continued to be marginal liters lactic acid check was 1.9, chest x-ray remains stable PICC line site is stable borderline cardiomegaly , patient is getting broad-spectrum antibiotics with Vanco mycin, daptomycin and Zosyn patient is a getting therapy for the lower extremity cellulitis as well along with local care 47-year-old morbidly obese female who was seen evaluated examined in the ICU this patient has been a resident of [facility], patient has problems associated with chronic renal insufficiency, sarcoidosis severely morbidly obese was found to have blood pressure only 60s systolic at the [facility] was notified it appears that blood pressure has been extremely fluctuating it was noted to be 90 by EMS however subsequently was in 150 patient was tachypneic and tachycardic as well no chest pain was present overall patient is a poor historian, patient was eventually admitted into the hospital from the emergency department Robert patient underwent a VQ scan with indeterminate findings, CT angiogram be performed due to elevated creatinine Robert patient has been using BiPAP off and on with a IPAP of 14 and EPAP of 5 and 35% oxygen, patient has been comfortable now she has a low urine output she is getting a fluid challenge of 500 mL crystalloid due to elevated lactic acid followed by 100 mL an hour patient is also on Solu-Cortef which is being switched to Solu-Medrol, currently patient is on bronchodilators and continuation of home medications, heparin for DVT prophylaxis, due to chronic hypertension patient is on midodrine along with broad-spectrum antibiotics along with Zosyn and vancomycin, urine is positive for group D enterococcus, other significant labs were noted to have a lactic acid of 5.8 came down to 3.2 , BUN/creatinine remains stable 40 and 2.93 much chest x-ray revealed cardiomegaly small left-sided pleural effusion with subsegmental atelectasis, patient was transferred to ICU for hypotension and low urine output and elevated lactic acid where she was seen evaluated examined Objective - Vital Signs Vital signs: Vital Signs Temp 97.7 F 04/16/18 17:00 Pulse 99 04/16/18 18:00 Resp 14 04/16/18 18:00 BP 96/67 04/16/18 18:00 Pulse Ox 100 04/16/18 18:00 Intake & Output 04/15/18 04/16/18 04/16/18 18:59 06:59 18:59 Intake Total 8010.975 0303.004 1339.769 Output Total 81 60 1730 Balance 3447.164 5136.004 -390.231 Weight 184.4 kg Intake: IV 1255 1005 1255 Dextrose 5% in Water 1, 1200 1000 1200 000 ml @ 100 mls/hr IV . Q11H LESLIE with Sodium Bicarb (1 Meq/ml) 100 ml Rx#:[id number] ns 55 5 55 Intake, IV Titration 109.772 64.004 84.769 Amount Norepinephrine 16 mg In 59.772 64.004 34.769 Sodium Chloride 0.9% 250 ml @ Titrate IV .Q0M LESLIE Rx#:[id number] Piperacillin-Tazobactam 3 50 50 .375 gm In Dextrose/Water 1 50ml.bag @ 12.5 mls/hr IVPB Q12HR LESLIE Rx#: [id number] Output: Urine 80 60 30 Stool 1 Other 1700 Other: Voiding Method Indwelling Catheter Indwelling Catheter Indwelling Catheter # Bowel Movements 1 - Exam Gen: This is a morbidly obese 47-year-old Afro [place] female. She is in bed and appears to be in no acute distress, patient leaning backwards awake no obvious distress HEENT: Head is atraumatic, normocephalic. Pupils equal, round. Sclerae is anicteric. Hearing grossly normal. NECK: Supple. No JVD. No lymphadenopathy. No thyromegaly. LUNGS: Diminished bilaterally. Clear to auscultation. No wheezes or rhonchi. No intercostal retractions. Has been on BiPAP support continuously HEART: Regular rate and rhythm. No murmur. ABDOMEN: Morbidly obese. Soft. Bowel sounds are present. No masses. No tenderness. EXTREMITIES: 2+ pedal edema. Chronic skin inflammatory changes early cellulitis cannot be excluded No calf tenderness. No redness. NEUROLOGICAL: Patient is mostly somnolent but arousable on physical and verbal stimuli awake, alert and oriented x2. Generalized weakness. - Labs CBC & Chem 7: 04/16/18 05:05 04/16/18 05:05 Labs: Abnormal Lab Results - Last 24 Hours (Table) 04/15/18 04/16/18 04/16/18 Range/Units 20:33 05:05 05:05 RBC 2.64 L (3.80-5.40) m/uL Hgb 7.7 L (11.4-16.0) gm/dL Hct 24.9 L (34.0-46.0) % RDW 18.7 H (11.5-15.5) % Metamyelocytes # (Man) 0.61 H (0) k/uL Myelocytes # (Manual) 0.10 H (0) k/uL Nucleated RBCs 33 H (0-0) /100 WBC PT (9.0-12.0) sec INR (<1.2) Sodium 134 L (137-145) mmol/L Carbon Dioxide 21 L (22-30) mmol/L BUN 32 H (7-17) mg/dL Creatinine 4.55 H (0.52-1.04) mg/dL Glucose 152 H (74-99) mg/dL POC Glucose (mg/dL) 146 H (75-99) mg/dL Calcium 6.5 L (8.4-10.2) mg/dL Phosphorus 5.9 H (2.5-4.5) mg/dL Total Bilirubin 2.5 H (0.2-1.3) mg/dL AST 102 H (14-36) U/L ALT 87 H (9-52) U/L Alkaline Phosphatase 316 H (38-126) U/L Total Protein 4.8 L (6.3-8.2) g/dL Albumin 2.5 L (3.5-5.0) g/dL 04/16/18 04/16/18 04/16/18 Range/Units 05:05 06:58 07:36 RBC (3.80-5.40) m/uL Hgb (11.4-16.0) gm/dL Hct (34.0-46.0) % RDW (11.5-15.5) % Metamyelocytes # (Man) (0) k/uL Myelocytes # (Manual) (0) k/uL Nucleated RBCs (0-0) /100 WBC PT 12.4 H (9.0-12.0) sec INR 1.3 H (<1.2) Sodium (137-145) mmol/L Carbon Dioxide (22-30) mmol/L BUN (7-17) mg/dL Creatinine (0.52-1.04) mg/dL Glucose (74-99) mg/dL POC Glucose (mg/dL) 141 H 146 H (75-99) mg/dL Calcium (8.4-10.2) mg/dL Phosphorus (2.5-4.5) mg/dL Total Bilirubin (0.2-1.3) mg/dL AST (14-36) U/L ALT (9-52) U/L Alkaline Phosphatase (38-126) U/L Total Protein (6.3-8.2) g/dL Albumin (3.5-5.0) g/dL 04/16/18 04/16/18 Range/Units 11:40 17:06 RBC (3.80-5.40) m/uL Hgb (11.4-16.0) gm/dL Hct (34.0-46.0) % RDW (11.5-15.5) % Metamyelocytes # (Man) (0) k/uL Myelocytes # (Manual) (0) k/uL Nucleated RBCs (0-0) /100 WBC PT (9.0-12.0) sec INR (<1.2) Sodium (137-145) mmol/L Carbon Dioxide (22-30) mmol/L BUN (7-17) mg/dL Creatinine (0.52-1.04) mg/dL Glucose (74-99) mg/dL POC Glucose (mg/dL) 128 H 157 H (75-99) mg/dL Calcium (8.4-10.2) mg/dL Phosphorus (2.5-4.5) mg/dL Total Bilirubin (0.2-1.3) mg/dL AST (14-36) U/L ALT (9-52) U/L Alkaline Phosphatase (38-126) U/L Total Protein (6.3-8.2) g/dL Albumin (3.5-5.0) g/dL Assessment and Plan Assessment: Persistent somnolence and lethargy we'll continue BiPAP, keep patient nothing by mouth Agree with Dobbhoff placement Acute on chronic renal failure Progressive worsening renal function and generalized anasarca proceed with hemodialysis as per renal services Acute hypoxic and hypercapnic respiratory failure Severe sepsis and septic shock related to enterococcus urinary tract infection with some complaint component from cellulitis of the both lower extremity Bilateral lower extremity cellulitis Elevated lactic acid/metabolic acidosis multifactorial associated with acute on chronic renal failure, urinary tract infection have improved though her and normalized Pulmonary sarcoidosis with possible left lower lobe pneumonia Somnolence and lethargy due to multifactorial processes including methadone currently on hold Small left-sided pleural effusion Dehydration associated with intravascular volume depletion patient is undergoing intermittent crystalloid challenge Severe morbid obesity and obstructive sleep apnea Plan: Continue BiPAP each night and when necessary during the day Gentle diuresis if possible Dialysis as per renal service DC methadone Dobbhoff tube pending Continue broad-spectrum antibiotics DVT and peptic ulcer disease prophylaxis IV steroids, we'll start tapering in next 24 hours Reviewed labs and radiographic studies ordered for tomorrow, further recommendations pending plan of care as per clinical response of the patient Further recommendations pending plan of care as per clinical response of patient Time with Patient: Greater than 30
[2018-04-16] MEDS: GABAPENTIN 300 MG CAP PO SCH (20:33)
[2018-04-16 20:42] LABS: Glucose,Whole Blood 137 mg/dL (75-99)
--- NOTE | 2018-04-16 23:05 | PN ---
PROGRESS NOTE DATE OF SERVICE: 04/16/2018. REASON FOR FOLLOWUP VISIT: VRE urinary tract infection. INTERVAL HISTORY: The patient is currently afebrile. She is status post dialysis today. She is responding blood pressure though required slightly higher doses during dialysis per the RN. The patient remains to be lethargic. Unable to provide any history. Oral intake has been and no diarrhea has been reported. PHYSICAL EXAMINATION: Her blood pressure is 109/59 with a pulse of 90. Temperature 97.8. She is 100% on . General description is a middle-aged female lying in bed in no distress. Respiratory system: Unlabored breathing with decreased breath sounds in the bases. Heart S1, S2. Regular rate and rhythm. Abdomen soft, no tenderness. Extremities: 2+ edema of the feet. LABS: Hemoglobin 7.7, white count 10.2, BUN of 32, creatinine 4.55. DIAGNOSTIC IMPRESSION/PLAN: 1. Patient admitted to the hospital with hypertension which is likely multifactorial in this patient with possible component of urinary tract infection with VRE for which the patient has been on daptomycin. The patient has worsening respiratory status as well as renal failure requiring dialysis. Overall prognosis remains to be guarded. She will be discharged on daptomycin to finish course of therapy for complicated UTI and continue supportive care. 2. Patient with bilateral groin and abdominal fold cutaneous candidiasis to continue with nystatin powder. 3. Patient with left forearm wound, local wound care with Aquacel Silver dressing. Continue supportive care. MMODL / IJN: [id number] /
[2018-04-17] MEDS: methylPREDNISolone SOD SUCCI 125 MG/2 ML VIAL IV SCH ×4 (05:06→23:55)
[2018-04-17 05:10] LABS: Anisocytosis Slight; HCT 22.9 % (34.0-46.0); HGB 7.2 gm/dL (11.4-16.0); Hypochromasia Slight; MCH 29.4 pg (25.0-35.0); MCHC 31.4 g/dL (31.0-37.0); MCV 93.5 fL (80.0-100.0); Macrocytosis Slight; Mean Platelet Volume 8.8; Platelet Count 192 k/uL (150-450); RBC 2.45 m/uL (3.80-5.40); RDW 18.8 % (11.5-15.5)
[2018-04-17 05:19] LABS: Albumin 2.4 g/dL (3.5-5.0); Calcium 6.5 mg/dL (8.4-10.2); Potassium 4.3 mmol/L (3.5-5.1); Total Bilirubin 3.2 mg/dL (0.2-1.3); Total Protein 4.6 g/dL (6.3-8.2)
[2018-04-17 05:55] LABS: Band Neutrophils % 7 %; Monocytes # (M) 0.44 k/uL (0-1.0); Myelocytes # (M) 0.22 k/uL (0); Myelocytes % 2 %; Neutrophils % (M) 71 %; Nucleated Red Blood Cells 23 /100 WBC (0-0); Total Cells Counted 200; WBC 11.1 k/uL (3.8-10.6)
[2018-04-17 05:56] LABS: Basophilic Stippling Present; Polychromasia Present
[2018-04-17] MEDS: DEXTROSE 5% IN WATER 1,000 ML with SODIUM BICARB (1 MEQ/ML) 100 ML IV SCH ×2 (06:31→08:10)
[2018-04-17 06:47] LABS: Glucose,Whole Blood 127 mg/dL (75-99)
[2018-04-17] MEDS: INSULIN ASPART 100 UNIT/ML 1 ML 10 ML VIAL SQ SCH ×4 (06:49→23:43)
[2018-04-17] MEDS: BUDESONIDE 0.5 MG/2 ML NEBU INHALATION SCH ×2 (07:25→19:18)
[2018-04-17] MEDS: ALBUTEROL NEBULIZED 2.5 MG/3 ML INHALATION SCH ×3 (07:25→19:18)
[2018-04-17] MEDS: CALCIUM ACETATE 667 MG CAP PO SCH ×3 (07:50→17:25)
[2018-04-17] MEDS: MIDODRINE 5 MG TAB PO SCH ×3 (07:50→17:25)
[2018-04-17] MEDS: BETHANECHOL 25 MG TAB PO SCH ×4 (07:50→21:24)
[2018-04-17] MEDS: DULoxetine HCL 30 MG CAPSULE.DR PO SCH ×2 (07:51→20:44)
[2018-04-17] MEDS: METHADONE 10 MG TAB PO SCH (07:51)
[2018-04-17] MEDS: SODIUM BICARBONATE TAB 650 MG TAB PO SCH (07:52)
--- NOTE | 2018-04-17 07:55 | XR ---
EXAMINATION TYPE: XR chest 1V portable DATE OF EXAM: 04/17/2018 COMPARISON: Prior chest x-ray 04/14/2018 HISTORY: Fluid overload, abnormal chest x-ray TECHNIQUE: Single frontal view of the chest is obtained. FINDINGS: Exam shows a stable appearance. IMPRESSION: Persistent cardiomegaly. There may be some basilar atelectasis.
[2018-04-17] MEDS: PANTOPRAZOLE 40 MG/10 ML VIAL IVP SCH (08:02)
[2018-04-17] MEDS: PIPERACILLIN-TAZOBACTAM 3.375 GM in DEXTROSE/WATER 1 50ML.BAG IVPB SCH ×2 (08:02→21:23)
[2018-04-17] MEDS: NYSTATIN 100,000 UNIT/GM POWD 15 GM TOPICAL SCH ×2 (08:02→21:23)
[2018-04-17] MEDS: HEPARIN SODIUM,PORCINE 5,000 UNIT/ML 1 ML VIAL SQ SCH ×3 (08:02→23:56)
[2018-04-17] MEDS: CLOTRIMAZOLE/BETAMETH 1-0.05% CREAM 45 GM TUBE TOPICAL SCH ×2 (08:03→21:23)
[2018-04-17] MEDS: ZINC OXIDE 20% OINT 28.4 GM TUBE TOPICAL SCH ×4 (08:03→21:24)
[2018-04-17] MEDS: PETROLATUM, WHITE OINT 50 GM TUBE TOPICAL SCH ×2 (08:03→21:23)
[2018-04-17] MEDS: FLUTICASONE 110 MCG INHALER INHALATION SCH ×2 (08:08→19:19)
--- NOTE | 2018-04-17 09:15 | IR ---
EXAMINATION TYPE: IR cvc insert non tunneled DATE OF EXAM: 04/15/2018 COMPARISON: NONE HISTORY: Renal failure Fluoroscopy support supplied to the referring clinician. See dictated report from vascular surgery. 1.2 minutes fluoroscopy time, 120 intraoperative images
--- NOTE | 2018-04-17 09:30 | P.PN ---
Subjective Patient is seen in follow for acute kidney injury. Her baseline creatinine is 1. Renal function worsened this admission with creatinine up to 4.55 on April 16. Patient presented to the hospital due to hypotension with systolic blood pressure in the 60s at the ECF. Patient was transferred to the ICU with persistent hypotension and lactic acidosis. She is currently maintained on bicarb drip at 100 mL an hour. She was also started on IV steroids. Cortisol level normal. Oral intake is poor. Remains oliguric. She was started on hemodialysis on April 16 and is scheduled for second treatment today. Vital signs are stable. General: The patient appeared well nourished and normally developed. HEENT: Head exam is unremarkable. Neck is without jugular venous distension. On BiPAP. LUNGS: Breath sounds decreased. HEART: Rate and Rhythm are regular. First and second heart sounds normal. No murmurs, rubs or gallops. ABDOMEN: Abdominal exam reveals normal bowel sounds. Non-tender and non- distended. No evidence of peritonitis. EXTREMITITES: 2+ edema. Objective - Vital Signs Vital signs: Vital Signs Temp 97.2 F L 04/17/18 04:00 Pulse 97 04/17/18 07:50 Resp 21 04/17/18 07:26 BP 99/67 04/17/18 07:00 Pulse Ox 100 04/17/18 07:00 Intake & Output 04/16/18 04/17/18 04/17/18 18:59 06:59 18:59 Intake Total 7151.211 8655.206 105 Output Total 1730 30 Balance -237.454 2855.206 105 Weight 186.426 kg Intake: IV 1255 1465 105 DAPTOmycin 600 mg In 50 Sodium Chloride 0.9% 50 ml @ 100 mls/hr IVPB Q48H [facility] Rx#:[id number] Dextrose 5% in Water 1, 1200 1300 100 000 ml @ 100 mls/hr IV . Q11H [facility] with Sodium Bicarb (1 Meq/ml) 100 ml Rx#:[id number] Piperacillin-Tazobactam 3 50 .375 gm In Dextrose/Water 1 50ml.bag @ 12.5 mls/hr IVPB Q8HR [facility] Rx#: [id number] ns 55 65 5 Intake, IV Titration 93.739 15.206 Amount Norepinephrine 16 mg In 43.739 15.206 Sodium Chloride 0.9% 250 ml @ Titrate IV .Q0M [facility] Rx#:[id number] Piperacillin-Tazobactam 3 50 .375 gm In Dextrose/Water 1 50ml.bag @ 12.5 mls/hr IVPB Q12HR [facility] Rx#: [id number] Output: Urine 30 30 Other 1700 Other: Voiding Method Indwelling Catheter Indwelling Catheter # Voids 1 - Labs CBC & Chem 7: 04/17/18 04:10 04/17/18 04:10 Labs: Abnormal Lab Results - Last 24 Hours (Table) 04/16/18 04/16/18 04/16/18 Range/Units 11:40 17:06 20:30 WBC (3.8-10.6) k/uL RBC (3.80-5.40) m/uL Hgb (11.4-16.0) gm/dL Hct (34.0-46.0) % RDW (11.5-15.5) % Neutrophils # (Manual) (1.3-7.7) k/uL Myelocytes # (Manual) (0) k/uL Nucleated RBCs (0-0) /100 WBC Sodium (137-145) mmol/L BUN (7-17) mg/dL Creatinine (0.52-1.04) mg/dL Glucose (74-99) mg/dL POC Glucose (mg/dL) 128 H 157 H 137 H (75-99) mg/dL Calcium (8.4-10.2) mg/dL Phosphorus (2.5-4.5) mg/dL Total Bilirubin (0.2-1.3) mg/dL AST (14-36) U/L ALT (9-52) U/L Alkaline Phosphatase (38-126) U/L Total Protein (6.3-8.2) g/dL Albumin (3.5-5.0) g/dL 04/17/18 04/17/18 04/17/18 Range/Units 04:10 04:10 06:35 WBC 11.1 H (3.8-10.6) k/uL RBC 2.45 L (3.80-5.40) m/uL Hgb 7.2 L (11.4-16.0) gm/dL Hct 22.9 L (34.0-46.0) % RDW 18.8 H (11.5-15.5) % Neutrophils # (Manual) 8.60 H (1.3-7.7) k/uL Myelocytes # (Manual) 0.22 H (0) k/uL Nucleated RBCs 23 H (0-0) /100 WBC Sodium 134 L (137-145) mmol/L BUN 27 H (7-17) mg/dL Creatinine 3.58 H (0.52-1.04) mg/dL Glucose 115 H (74-99) mg/dL POC Glucose (mg/dL) 127 H (75-99) mg/dL Calcium 6.5 L (8.4-10.2) mg/dL Phosphorus 5.0 H (2.5-4.5) mg/dL Total Bilirubin 3.2 H (0.2-1.3) mg/dL AST 170 H (14-36) U/L ALT 90 H (9-52) U/L Alkaline Phosphatase 303 H (38-126) U/L Total Protein 4.6 L (6.3-8.2) g/dL Albumin 2.4 L (3.5-5.0) g/dL Assessment and Plan Plan: Assessment: 1. Acute kidney injury secondary to ATN secondary to hypotension. Creatinine peaked at 4.99 on April 16. Baseline creatinine near 1. No hydronephrosis noted on renal ultrasound. She is noted to have sub-nephrotic proteinuria. 2. Proteinuria. Her albumin is also low. UPC 0.5. Rule out GN. Serologies negative. Urine eosinophils negative. 3. Metabolic acidosis secondary to acute kidney injury and IV fluids. 4. Edema. 5. Hypotension. This is due to to sepsis. Cortisol level normal. 6. Diabetes mellitus. Patient states this was diagnosed within the last 1 year. 7. UTI with urine culture positive for VRE. Infectious disease following. Vancomycin discontinued. 8. Hyperkalemia. This is due to acute kidney injury and metabolic acidosis. Potassium supplementation discontinued. Better. 9. Hyponatremia secondary to acute kidney injury. Better. 10. Hyperphosphatemia secondary to BOONE. Better with dialysis. Also on PhosLo. 11. Systolic CHF with ejection fraction of 45-50% with moderate pulmonary hypertension. Plan: Discontinue bicarbonate drip. Start normal saline at 100 mL an hour. Strict I's and O's. Discontinue oral bicarb. Avoid nephrotoxins. Second treatment of hemodialysis today and third treatment tomorrow with UF as tolerated.
[2018-04-17] MEDS: SODIUM CHLORIDE 0.9% 1,000 ML IV SCH ×2 (09:33→18:46)
--- NOTE | 2018-04-17 10:45 | P.PN ---
Subjective Progress Note Date: 04/17/18 Principal diagnosis: Sepsis shock UTI history pulmonary sarcoidosis 47-year-old female admitted with altered mental status acute kidney injury elevated liver enzymes history of pulmonary sarcoidosis status post hemodialysis after placement of dialysis catheter Tuesday. Receiving dialysis this morning. Patient is lethargic. Patient unable to take her medications are receive nutrition. Dobbhoff placement has been requested. Total bilirubin increased 3.2. AST 170. ALT 90. AP 303. Objective - Vital Signs Vital signs: Vital Signs Temp 97.4 F L 04/17/18 08:00 Pulse 98 04/17/18 10:00 Resp 12 04/17/18 10:00 BP 91/58 04/17/18 10:00 Pulse Ox 100 04/17/18 10:00 Intake & Output 04/16/18 04/17/18 04/17/18 18:59 06:59 18:59 Intake Total 8906.664 6824.206 365 Output Total 1730 30 Balance -516.081 2858.206 365 Weight 186.426 kg 186.426 kg Intake: IV 1255 1465 215 DAPTOmycin 600 mg In 50 Sodium Chloride 0.9% 50 ml @ 100 mls/hr IVPB Q48H [facility] Rx#:[id number] Dextrose 5% in Water 1, 1200 1300 200 000 ml @ 100 mls/hr IV . Q11H [facility] with Sodium Bicarb (1 Meq/ml) 100 ml Rx#:[id number] Piperacillin-Tazobactam 3 50 .375 gm In Dextrose/Water 1 50ml.bag @ 12.5 mls/hr IVPB Q8HR [facility] Rx#: [id number] ns 55 65 15 Intake, IV Titration 93.739 15.206 150 Amount Norepinephrine 16 mg In 43.739 15.206 Sodium Chloride 0.9% 250 ml @ Titrate IV .Q0M [facility] Rx#:[id number] Piperacillin-Tazobactam 3 50 50 .375 gm In Dextrose/Water 1 50ml.bag @ 12.5 mls/hr IVPB Q12HR [facility] Rx#: [id number] Sodium Chloride 0.9% 1, 100 000 ml @ 100 mls/hr IV . Q10H [facility] Rx#:[id number] Output: Urine 30 30 Other 1700 Other: Voiding Method Indwelling Catheter Indwelling Catheter # Voids 1 - Exam General appearance: The patient is obtunded, in no acute distress not conversive. HET: Head is normocephalic and atraumatic. Pupils are equal and reactive. Oropharynx is clear without lesions. Neck: Supple without lymphadenopathy. Trachea midline. Heart: S1 S2. Regular rate and rhythm. Lungs: Bipap. Diminished throughout. Abdomen: Morbidly obese. Soft, nontender, nondistended with bowel sounds. No peritoneal signs. No palpable organomegaly or masses. Extremities: Right groin dialysis catheter. Chronic indwelling catheter. Lower extremity Gurwinder wrap's with edema. Neurological: No focal deficits. - Labs CBC & Chem 7: 04/17/18 04:10 04/17/18 04:10 Labs: Abnormal Lab Results - Last 24 Hours (Table) 04/16/18 04/16/18 04/16/18 Range/Units 11:40 17:06 20:30 WBC (3.8-10.6) k/uL RBC (3.80-5.40) m/uL Hgb (11.4-16.0) gm/dL Hct (34.0-46.0) % RDW (11.5-15.5) % Neutrophils # (Manual) (1.3-7.7) k/uL Myelocytes # (Manual) (0) k/uL Nucleated RBCs (0-0) /100 WBC Sodium (137-145) mmol/L BUN (7-17) mg/dL Creatinine (0.52-1.04) mg/dL Glucose (74-99) mg/dL POC Glucose (mg/dL) 128 H 157 H 137 H (75-99) mg/dL Calcium (8.4-10.2) mg/dL Phosphorus (2.5-4.5) mg/dL Total Bilirubin (0.2-1.3) mg/dL AST (14-36) U/L ALT (9-52) U/L Alkaline Phosphatase (38-126) U/L Total Protein (6.3-8.2) g/dL Albumin (3.5-5.0) g/dL 04/17/18 04/17/18 04/17/18 Range/Units 04:10 04:10 06:35 WBC 11.1 H (3.8-10.6) k/uL RBC 2.45 L (3.80-5.40) m/uL Hgb 7.2 L (11.4-16.0) gm/dL Hct 22.9 L (34.0-46.0) % RDW 18.8 H (11.5-15.5) % Neutrophils # (Manual) 8.60 H (1.3-7.7) k/uL Myelocytes # (Manual) 0.22 H (0) k/uL Nucleated RBCs 23 H (0-0) /100 WBC Sodium 134 L (137-145) mmol/L BUN 27 H (7-17) mg/dL Creatinine 3.58 H (0.52-1.04) mg/dL Glucose 115 H (74-99) mg/dL POC Glucose (mg/dL) 127 H (75-99) mg/dL Calcium 6.5 L (8.4-10.2) mg/dL Phosphorus 5.0 H (2.5-4.5) mg/dL Total Bilirubin 3.2 H (0.2-1.3) mg/dL AST 170 H (14-36) U/L ALT 90 H (9-52) U/L Alkaline Phosphatase 303 H (38-126) U/L Total Protein 4.6 L (6.3-8.2) g/dL Albumin 2.4 L (3.5-5.0) g/dL Assessment and Plan (1) Elevated liver enzymes Narrative/Plan: 47-year-old female admitted with a BOONE HTN sepsis VRE UTI hypotension with underlying pulmonary sarcoidosis elevated liver enzymes. Etiology of acute elevated liver enzymes is multifactorial suspect a component of sepsis shock liver from hypotensive events leading up to hospitalization as well as possible medication induced. Liver function tests were within normal limits prior to admission. She has underlying hepatic steatosis, diabetes mellitus, morbid obesity, and is in the process of undergoing neurologic evaluation for possible sarcoidosis of the brain. Hepatic sarcoidosis can occur up to 70% of patients with underlying sarcoidosis. Elevated alkaline phosphatase levels can be 5-10 times the upper limit of normal, transaminases are usually mildly elevated compared to alkaline phosphatase. Most patients are asymptomatic and not all cases require treatment. Liver biopsy is necessary for confirmation of diagnosis to help differentiate sarcoidosis from other autoimmune and or granulomatous liver diseases. Presently there is no evidence of cirrhosis jaundice pruritus or right upper quadrant abdominal pain. Asymptomatic patients require no treatment whereas symptomatic patients would require corticosteroids or ursodeoxycholic acid. Current Visit: Yes Status: Acute Code(s): R74.8 - ABNORMAL LEVELS OF OTHER SERUM ENZYMES SNOMED Code(s): 378686240 Plan: 1. Patient is unable to meet her nutritional needs to receive medications at this time. Attending is requested Dobbhoff insertion. Gi service will reevaluate today after dialysis is completed; pulmonary clearance will need to be obtained if EGD/Dobhoff placement is necessary. Suggest insertion of NGT for feeds/meds if Dobhoff can not be placed. 2. Liver function tests increased today will check daily. Supportive measures. We'll continue to follow. Assessment and plan a care discussed with Dr. Briceño
[2018-04-17 11:23] LABS: Glucose,Whole Blood 123 mg/dL (75-99)
--- NOTE | 2018-04-17 12:28 | P.PN ---
Subjective Progress Note Date: 04/17/18 (Critical care time 35 minutes) Principal diagnosis: Generalized anasarca, severe symptomatic hypotension, Acute renal failure, Severe sepsis and septic shock associated with urinary tract infection, pulmonary sarcoidosis, severe morbid obesity, obesity hypoventilation syndrome, sleep disorder breathing and sleep apnea, uncontrolled hyperglycemia and type 2 diabetes mellitus, acute renal failure, chronic pain syndrome 04/17/2018, patient seen eval examined during the rounds clinically patient has been doing slightly better in terms of breathing oxygenation stable but continued to require BiPAP support, currently patient is on IPAP of 14 EPAP of 5 with 35% oxygen, the blood pressure did drop down with map into the low 50s levo fed drip is being started, patient is currently undergoing hemodialysis with intent to remove about 2 L of fluid, has had incomplete just 2 hour hemodialysis yesterday, patient is arousable opens eyes does try to follow simple commands slightly more awake now, once dialysis is completed then patient remains stable will reassess and do a swallowing evaluation prior to Dobbhoff or NG tube placement, laboratory data radiographic studies reviewed medications reviewed, white cell count 11,000, hemoglobin is 7.2, BUN/ creatinine slightly improved 27 /3.58, patient remains on broad-spectrum antibiotics high-dose IV steroids methadone is on hold 04/16/2018, patient seen eval examined during the rounds she is currently on 5 mics of the levo fed, the old using and bleeding from the dialysis catheter site has improved and resolved now he shouldn't has been planned for dialysis by renal services, hemodynamics status overall stable, remains on BiPAP with IPAP 14 EPAP of 5 with 35% oxygen, labs from today reviewed no chest x-rays performed today we'll plan for tomorrow including labs, and I'll of is being planned by GI services 04/15/2018, patient seen eval examined during rounds, patient remain somnolent but arousable, remains on BiPAP currently on IPAP of 14 and EPAP of 5 with 35% oxygen, labs reviewed white cell count is trickling down is 11,000, hemoglobin remained stable 8.8, creatinine continued to go up is 4.19 now, as per discussion with the renal service proceed with hemodialysis vascular surgery has been consulted, and they have placed and dialysis catheter but patient is hypertensive also some bruising and blood-tinged discharge from the catheter site is present advised to hold on dialysis tonight 04/14/2018 Patient has been more lethargic throughout the day, has been on BiPAP 14/6 with 35% oxygen patient is gently being rehydrated patient does have diffuse anasarca however chest x-ray continue to be normal with normal heart size no effusion is seen him a subtle basal atelectasis cannot be excluded, and labs from today reviewed white cell count remains stable hemoglobin is unchanged platelet count stable as well, renal functions remains poor BUN/ creatinine continued to get worse 23 and 3.99 urine output is very minimal, patient has not received her methadone today, recommend to DC methadone, it appears that patient may need dialysis/ultrafiltration for generalized anasarca and worsening renal failure 04/13/2018, patient seen eval reexamined during the rounds care plan discussed the renal service patient's chest x-ray unremarkable oxygen is stable, patient remains on BiPAP as needed along with oxygen patient has not been using the BiPAP machine very regularly have discussed with the family as well as patient importance to using the BiPAP regularly, I have also advised to stop or discontinue methadone as it may be interfering with the mental status for now dose has been cut down to half, labs reviewed medications reviewed 04/12/2018, patient seen eval examined during the rounds clinically patient is doing better in terms of hemodynamics but remains intermittently tachycardic which is not much change from baseline blood pressure has been stable, patient did not use her BiPAP machine last night, has been more somnolent she is lethargic but readily arousable, she does answer in simple words, moving all 4 extremities, she was noted to have snoring as well as apneic events, family is present at bedside and have discussed with them at length about importance of using the BiPAP machine each night and when necessary during the day will put the BiPAP again with a setting of 14/5 with 35% oxygen, potassium is up slightly urine culture is positive for Enterococcus faecium/VRE, patient is on daptomycin and Zosyn, IV fluids are 100 mL an hour, BUN/creatinine slightly up and baseline 04/11/2018, patient seen eval examined in ICU patient the continue to have issues associated aches and pain she remains a poor historian however does describe generalized pain throughout the body, patient has been nauseous as well a computed tomography scan of the abdominal and pelvis is being ordered, her lactic acid has improved with the fluid resuscitation, patient has been on broad-spectrum antibiotics I urine culture is positive for enterococcus Ammann labs from today reviewed sodium is 1:30 and production of 5.3 her BUN/ creatinine is 15 and 2.99, overall sodium remains stable hyperkalemia is present renal functions continued to be marginal liters lactic acid check was 1.9, chest x-ray remains stable PICC line site is stable borderline cardiomegaly , patient is getting broad-spectrum antibiotics with Vanco mycin, daptomycin and Zosyn patient is a getting therapy for the lower extremity cellulitis as well along with local care 47-year-old morbidly obese female who was seen evaluated examined in the ICU this patient has been a resident of [facility], patient has problems associated with chronic renal insufficiency, sarcoidosis severely morbidly obese was found to have blood pressure only 60s systolic at the [facility] EMS was notified it appears that blood pressure has been extremely fluctuating it was noted to be 90 by EMS however subsequently was in 150 patient was tachypneic and tachycardic as well no chest pain was present overall patient is a poor historian, patient was eventually admitted into the hospital from the emergency department Ammann patient underwent a VQ scan with indeterminate findings, CT angiogram be performed due to elevated creatinine Ammann patient has been using BiPAP off and on with a IPAP of 14 and EPAP of 5 and 35% oxygen, patient has been comfortable now she has a low urine output she is getting a fluid challenge of 500 mL crystalloid due to elevated lactic acid followed by 100 mL an hour patient is also on Solu-Cortef which is being switched to Solu-Medrol, currently patient is on bronchodilators and continuation of home medications, heparin for DVT prophylaxis, due to chronic hypertension patient is on midodrine along with broad-spectrum antibiotics along with Zosyn and vancomycin, urine is positive for group D enterococcus, other significant labs were noted to have a lactic acid of 5.8 came down to 3.2 , BUN/creatinine remains stable 40 and 2.93 much chest x-ray revealed cardiomegaly small left-sided pleural effusion with subsegmental atelectasis, patient was transferred to ICU for hypotension and low urine output and elevated lactic acid where she was seen evaluated examined Objective - Vital Signs Vital signs: Vital Signs Temp 97.8 F 04/17/18 12:00 Pulse 112 H 04/17/18 12:00 Resp 16 04/17/18 12:00 BP 87/62 04/17/18 12:00 Pulse Ox 100 04/17/18 12:00 Intake & Output 04/16/18 04/17/18 04/17/18 18:59 06:59 18:59 Intake Total 2424.889 4170.206 575 Output Total 1730 30 Balance -342.761 5088.206 575 Weight 186.426 kg 186.426 kg Intake: IV 1255 1465 225 DAPTOmycin 600 mg In 50 Sodium Chloride 0.9% 50 ml @ 100 mls/hr IVPB Q48H [facility] Rx#:[id number] Dextrose 5% in Water 1, 1200 1300 200 000 ml @ 100 mls/hr IV . Q11H [facility] with Sodium Bicarb (1 Meq/ml) 100 ml Rx#:[id number] Piperacillin-Tazobactam 3 50 .375 gm In Dextrose/Water 1 50ml.bag @ 12.5 mls/hr IVPB Q8HR [facility] Rx#: [id number] ns 55 65 25 Intake, IV Titration 93.739 15.206 350 Amount Norepinephrine 16 mg In 43.739 15.206 0 Sodium Chloride 0.9% 250 ml @ Titrate IV .Q0M [facility] Rx#:[id number] Piperacillin-Tazobactam 3 50 50 .375 gm In Dextrose/Water 1 50ml.bag @ 12.5 mls/hr IVPB Q12HR [facility] Rx#: [id number] Sodium Chloride 0.9% 1, 300 000 ml @ 100 mls/hr IV . Q10H [facility] Rx#:[id number] Output: Urine 30 30 Other 1700 Other: Voiding Method Indwelling Catheter Indwelling Catheter Indwelling Catheter # Voids 1 - Exam Gen: This is a morbidly obese 47-year-old Afro [place] female. She is in bed and appears to be in no acute distress, patient leaning backwards awake no obvious distress HEENT: Head is atraumatic, normocephalic. Pupils equal, round. Sclerae is anicteric. Hearing grossly normal. NECK: Supple. No JVD. No lymphadenopathy. No thyromegaly. LUNGS: Diminished bilaterally. Clear to auscultation. No wheezes or rhonchi. No intercostal retractions. Has been on BiPAP support continuously HEART: Regular rate and rhythm. No murmur. ABDOMEN: Morbidly obese. Soft. Bowel sounds are present. No masses. No tenderness. EXTREMITIES: 2+ pedal edema. Chronic skin inflammatory changes early cellulitis cannot be excluded No calf tenderness. No redness. NEUROLOGICAL: Patient is mostly somnolent but arousable on physical and verbal stimuli awake, alert and oriented x2. Generalized weakness. - Labs CBC & Chem 7: 04/17/18 04:10 04/17/18 04:10 Labs: Abnormal Lab Results - Last 24 Hours (Table) 04/16/18 04/16/18 04/16/18 Range/Units 05:05 17:06 20:30 WBC (3.8-10.6) k/uL RBC (3.80-5.40) m/uL Hgb (11.4-16.0) gm/dL Hct (34.0-46.0) % RDW (11.5-15.5) % Neutrophils # (Manual) (1.3-7.7) k/uL Myelocytes # (Manual) (0) k/uL Nucleated RBCs (0-0) /100 WBC Sodium (137-145) mmol/L BUN (7-17) mg/dL Creatinine (0.52-1.04) mg/dL Glucose (74-99) mg/dL POC Glucose (mg/dL) 157 H 137 H (75-99) mg/dL Calcium (8.4-10.2) mg/dL Phosphorus (2.5-4.5) mg/dL Total Bilirubin (0.2-1.3) mg/dL AST (14-36) U/L ALT (9-52) U/L Alkaline Phosphatase (38-126) U/L Total Protein (6.3-8.2) g/dL Albumin (3.5-5.0) g/dL Hep Bs Antibody Reactive H (Non-Reactive) 04/17/18 04/17/18 04/17/18 Range/Units 04:10 04:10 06:35 WBC 11.1 H (3.8-10.6) k/uL RBC 2.45 L (3.80-5.40) m/uL Hgb 7.2 L (11.4-16.0) gm/dL Hct 22.9 L (34.0-46.0) % RDW 18.8 H (11.5-15.5) % Neutrophils # (Manual) 8.60 H (1.3-7.7) k/uL Myelocytes # (Manual) 0.22 H (0) k/uL Nucleated RBCs 23 H (0-0) /100 WBC Sodium 134 L (137-145) mmol/L BUN 27 H (7-17) mg/dL Creatinine 3.58 H (0.52-1.04) mg/dL Glucose 115 H (74-99) mg/dL POC Glucose (mg/dL) 127 H (75-99) mg/dL Calcium 6.5 L (8.4-10.2) mg/dL Phosphorus 5.0 H (2.5-4.5) mg/dL Total Bilirubin 3.2 H (0.2-1.3) mg/dL AST 170 H (14-36) U/L ALT 90 H (9-52) U/L Alkaline Phosphatase 303 H (38-126) U/L Total Protein 4.6 L (6.3-8.2) g/dL Albumin 2.4 L (3.5-5.0) g/dL Hep Bs Antibody (Non-Reactive) 04/17/18 Range/Units 11:12 WBC (3.8-10.6) k/uL RBC (3.80-5.40) m/uL Hgb (11.4-16.0) gm/dL Hct (34.0-46.0) % RDW (11.5-15.5) % Neutrophils # (Manual) (1.3-7.7) k/uL Myelocytes # (Manual) (0) k/uL Nucleated RBCs (0-0) /100 WBC Sodium (137-145) mmol/L BUN (7-17) mg/dL Creatinine (0.52-1.04) mg/dL Glucose (74-99) mg/dL POC Glucose (mg/dL) 123 H (75-99) mg/dL Calcium (8.4-10.2) mg/dL Phosphorus (2.5-4.5) mg/dL Total Bilirubin (0.2-1.3) mg/dL AST (14-36) U/L ALT (9-52) U/L Alkaline Phosphatase (38-126) U/L Total Protein (6.3-8.2) g/dL Albumin (3.5-5.0) g/dL Hep Bs Antibody (Non-Reactive) Assessment and Plan Assessment: Persistent somnolence and lethargy we'll continue BiPAP, keep patient nothing by mouth, once mental status improve will proceed with the bedside swallow evaluation Agree with Dobbhoff placement if mental status remains marginal Acute on chronic renal failure on hemodialysis Progressive worsening renal function and generalized anasarca proceed with hemodialysis as per renal services For ongoing hypertension will initiate patient on levo fed drip a.m. for map about 65-70 so adequate dialysis can be performed Acute hypoxic and hypercapnic respiratory failure Severe sepsis and septic shock related to enterococcus urinary tract infection with some complaint component from cellulitis of the both lower extremity Bilateral lower extremity cellulitis Elevated lactic acid/metabolic acidosis multifactorial associated with acute on chronic renal failure, urinary tract infection have improved though her and normalized Pulmonary sarcoidosis with possible left lower lobe pneumonia Somnolence and lethargy due to multifactorial processes including methadone currently on hold Small left-sided pleural effusion Dehydration associated with intravascular volume depletion patient is undergoing intermittent crystalloid challenge Severe morbid obesity and obstructive sleep apnea Plan: Continue BiPAP each night and when necessary during the day Gentle diuresis if possible Dialysis as per renal service DC methadone Dobbhoff tube pending if mental status remains marginal Continue broad-spectrum antibiotics DVT and peptic ulcer disease prophylaxis IV steroids, we'll continue same dose for now we'll start tapering in next 24 hours Reviewed labs and radiographic studies ordered for tomorrow, further recommendations pending plan of care as per clinical response of the patient Further recommendations pending plan of care as per clinical response of patient Time with Patient: Greater than 30
--- NOTE | 2018-04-17 14:09 | PN ---
PROGRESS NOTE DATE OF SERVICE: 04/17/2018 REASON FOR FOLLOWUP: 1. VRE urinary tract infection. 2. Multiple wounds with groin area with cutaneous candidiasis. INTERVAL HISTORY: The patient is currently afebrile. Blood pressure has been borderline, undergoing hemodialysis. She remains to be on BiPAP, lethargic and unable to provide any history. No oral intake. No nausea, vomiting has improved per the nursing staff or any diarrhea. PHYSICAL EXAMINATION: Blood pressure 104/84 with a pulse of 101, temperature of 97.8. She is 100% on BiPAP. General description is a middle aged female, lying in bed in no distress. RESPIRATORY SYSTEM: Unlabored breathing with decreased breath sounds at the bases, no wheeze. HEART: S1, S2. Regular rate and rhythm. ABDOMEN: Soft, no tenderness. Patient's right posterior thigh did have a new wound likely from ruptured blister with some bleeding was noticed but no cellulitis. LABS: Hemoglobin 7.8, white count of 11.1 with a BUN of 27, creatinine 3.58. DIAGNOSTIC IMPRESSION/PLAN: 1. Patient with VRE urinary tract infection for which the patient is currently on daptomycin. 2. Patient with right posterior thigh wound, from ruptured blister, RN has been advised. Aquacel Silver dressing followed by dry dressing to control the bleeding. 3. Bilateral chronic cutaneous candidiasis, nystatin powder twice a day. 4. Left upper arm wound. Continue with Aquacel Silver dressing. This appears to be almost healed up. Plan of care discussed in detail with the admitting team, Zosyn will be discontinued. Patient will be monitored closely. MMODL / IJN: [id number] /
--- NOTE | 2018-04-17 15:27 | PN ---
PROGRESS NOTE DATE OF SERVICE: 04/17/2018 INTERVAL HISTORY: Patient is a 47-year-old, morbidly obese female who is seen lying in bed, is awake and alert. Currently on BiPAP as well as Levophed for blood pressure. Patient is afebrile. PHYSICAL EXAM: VITAL SIGNS: [place] is 97.8, heart rate is 110, respiratory rate is 13, blood pressure is 101/66, O2 SATs 100% on BiPAP at 35% FiO2. HEENT. Head is normocephalic, atraumatic. Neck is short, thick, supple. Trachea is midline. LUNGS: With decreased breath sounds. HEART: S1, S2 heard, intermittently tachycardic. ABDOMEN: Soft, obese. Bowel sounds are heard. EXTREMITIES: With 2 to 3+ edema and bilateral Gurwinder wraps. NEUROLOGIC: Patient is awake and alert, on BiPAP. LABS: White count is 11.1, hemoglobin is 7.2, hematocrit is 22.9 with 192,000 platelets. Sodium is 134, potassium is 4.3, chloride is 98, CO2 is 26, anion gap is 10, BUN is 27, creatinine is 3.58, glucose is 115, calcium is 6.5, phosphorus 5.0, magnesium 2.0, total bilirubin 3.2, AST 170, ALT 90, alk phos 303, total protein 4.6, albumin is 2.4. Chest x-ray done this a.m. shows persistent cardiomegaly, there may be some basilar atelectasis. IMPRESSION: 1. Acute on chronic respiratory failure, which is multifactorial in part due to obesity, hypoventilation syndrome with possible central sleep apnea versus obstructive sleep apnea, as previous sleep study did not show obstructions. 2. Sarcoidosis and asthma. Sarcoidosis for which he continues on IV steroids. 3. Acute on chronic renal failure for which patient has been started on dialysis. 4. Obesity. PLAN: Continue current medications which have been reviewed. Transfuse 1 units PRBC. Continue BiPAP. Continue pressors for blood pressure control and will follow patient closely with you making further changes as necessary. MMODL / IJN: [id number] / SABA
[2018-04-17 18:33] LABS: Glucose,Whole Blood 135 mg/dL (75-99)
[2018-04-17] MEDS: GABAPENTIN 300 MG CAP PO SCH (21:23)
[2018-04-17 23:55] LABS: Glucose,Whole Blood 130 mg/dL (75-99)
[2018-04-18 05:07] LABS: Albumin 2.2 g/dL (3.5-5.0); Calcium 6.5 mg/dL (8.4-10.2); Magnesium 1.9 mg/dL (1.6-2.3); Phosphorus 4.3 mg/dL (2.5-4.5); Total Bilirubin 4.9 mg/dL (0.2-1.3); Total Protein 4.2 g/dL (6.3-8.2)
[2018-04-18 05:10] LABS: Anisocytosis Slight; HCT 23.3 % (34.0-46.0); HGB 7.4 gm/dL (11.4-16.0); Hypochromasia Slight; MCH 29.3 pg (25.0-35.0); MCHC 31.7 g/dL (31.0-37.0); MCV 92.3 fL (80.0-100.0); Mean Platelet Volume 9.3; Platelet Count 160 k/uL (150-450); Poikilocytosis Slight; RBC 2.53 m/uL (3.80-5.40); RDW 18.2 % (11.5-15.5)
[2018-04-18 06:29] LABS: Band Neutrophils % 6 %; Lymphocytes # (M) 1.92 k/uL (1.0-4.8); Metamyelocytes # (M) 0.59 k/uL (0); Metamyelocytes % 4 %; Monocytes # (M) 0.44 k/uL (0-1.0); Neutrophils % (M) 76 %; Nucleated Red Blood Cells 33 /100 WBC (0-0); Total Cells Counted 200; WBC 14.8 k/uL (3.8-10.6)
[2018-04-18 06:30] LABS: Howell-Jolly Bodies Present; Polychromasia Present; Target Cells Present
[2018-04-18 06:31] LABS: Large Platelets Present; RBC Fragments Present
[2018-04-18 07:24] LABS: Glucose,Whole Blood 166 mg/dL (75-99)
[2018-04-18] MEDS: DULoxetine HCL 30 MG CAPSULE.DR PO SCH (07:47)
[2018-04-18] MEDS: METHADONE 10 MG TAB PO SCH ×2 (07:48→14:18)
[2018-04-18] MEDS: methylPREDNISolone SOD SUCCI 125 MG/2 ML VIAL IV SCH ×4 (07:49→23:03)
[2018-04-18] MEDS: INSULIN ASPART 100 UNIT/ML 1 ML 10 ML VIAL SQ SCH ×3 (07:49→19:30)
--- NOTE | 2018-04-18 07:55 | XR ---
EXAMINATION TYPE: XR chest 1V portable DATE OF EXAM: 04/18/2018 COMPARISON: Prior chest x-ray 04/17/2018 HISTORY: Abnormal chest x-ray, fluid overload TECHNIQUE: Single frontal view of the chest is obtained. FINDINGS: NG tube has been placed in the interval. Distal tip is not included on the exam. Right-kristi ed PICC line remains in place. Heart remains enlarged. No evident pneumothorax or pleural effusion. P ulmonary vascularity and fide are stable. IMPRESSION: Stable cardiomegaly. Interval NG tube placement.
[2018-04-18] MEDS: BUDESONIDE 0.5 MG/2 ML NEBU INHALATION SCH ×2 (08:06→19:49)
[2018-04-18] MEDS: ALBUTEROL NEBULIZED 2.5 MG/3 ML INHALATION SCH ×3 (08:06→19:49)
[2018-04-18] MEDS: MIDODRINE 5 MG TAB PO SCH ×3 (08:51→19:32)
[2018-04-18] MEDS: HEPARIN SODIUM,PORCINE 5,000 UNIT/ML 1 ML VIAL SQ SCH ×3 (08:51→23:03)
[2018-04-18] MEDS: PIPERACILLIN-TAZOBACTAM 3.375 GM in DEXTROSE/WATER 1 50ML.BAG IVPB SCH (08:51)
[2018-04-18] MEDS: CALCIUM ACETATE 667 MG CAP PO SCH ×3 (08:51→19:10)
[2018-04-18] MEDS: BETHANECHOL 25 MG TAB PO SCH ×3 (08:51→20:34)
[2018-04-18] MEDS: PANTOPRAZOLE 40 MG/10 ML VIAL IVP SCH (08:52)
--- NOTE | 2018-04-18 09:00 | P.PN ---
Subjective Progress Note Date: 04/18/18 Principal diagnosis: Sepsis shock UTI history pulmonary sarcoidosis 47-year-old female admitted with altered mental status acute kidney injury elevated liver enzymes history of pulmonary sarcoidosis status post hemodialysis after placement of dialysis catheter Tuesday. Patient is lethargic. Patient unable to take her medications are receive nutritiontherefore NG tube was inserted yesterday presently receiving tube feeds and medications via NG tube. Total bilirubin increased 4.9. AST 663. ALT 212. AP 392. Objective - Vital Signs Vital signs: Vital Signs Temp 98.2 F 04/18/18 04:01 Pulse 101 H 04/18/18 08:25 Resp 14 04/18/18 04:01 BP 120/71 04/18/18 04:01 Pulse Ox 98 04/18/18 04:01 Intake & Output 04/17/18 04/18/18 04/18/18 18:59 06:59 18:59 Intake Total 0555.754 4105.132 0 Output Total 1850 51 Balance -643.505 6690.132 0 Weight 186.426 kg Intake: IV 255 955 Dextrose 5% in Water 1, 200 000 ml @ 100 mls/hr IV . Q11H [facility] with Sodium Bicarb (1 Meq/ml) 100 ml Rx#:[id number] Piperacillin-Tazobactam 3 50 .375 gm In Dextrose/Water 1 50ml.bag @ 12.5 mls/hr IVPB Q12HR [facility] Rx#: [id number] ns 55 905 Intake, IV Titration 960.772 101.132 0 Amount Norepinephrine 16 mg In 10.772 1.132 0 Sodium Chloride 0.9% 250 ml @ Titrate IV .Q0M [facility] Rx#:[id number] Piperacillin-Tazobactam 3 50 .375 gm In Dextrose/Water 1 50ml.bag @ 12.5 mls/hr IVPB Q12HR [facility] Rx#: [id number] Sodium Chloride 0.9% 1, 900 100 000 ml @ 100 mls/hr IV . Q10H [facility] Rx#:[id number] Tube Feeding 30 200 Blood Product 310 310 Rc Cpda-1 Unit 0 310 [id number] Other 30 60 Output: Urine 51 Other 1850 Other: Voiding Method Indwelling Catheter Indwelling Catheter - Exam General appearance: The patient is obtunded, in no acute distress not conversive. HET: Head is normocephalic and atraumatic. Pupils are equal and reactive. Oropharynx is clear without lesions.NG tube with feeds. Neck: Supple without lymphadenopathy. Trachea midline. Heart: S1 S2. Regular rate and rhythm. Lungs: Bipap. Diminished throughout. Abdomen: Morbidly obese. Soft, nontender, nondistended with bowel sounds. No peritoneal signs. No palpable organomegaly or masses. Extremities: Right groin dialysis catheter. Chronic indwelling catheter. Lower extremity Gurwinder wrap's with edema. Neurological: No focal deficits. - Labs CBC & Chem 7: 04/20/18 04:35 04/20/18 04:35 Labs: Abnormal Lab Results - Last 24 Hours (Table) 04/16/18 04/17/18 04/17/18 Range/Units 05:05 11:12 15:30 WBC (3.8-10.6) k/uL RBC (3.80-5.40) m/uL Hgb (11.4-16.0) gm/dL Hct (34.0-46.0) % RDW (11.5-15.5) % Neutrophils # (Manual) (1.3-7.7) k/uL Metamyelocytes # (Man) (0) k/uL Nucleated RBCs (0-0) /100 WBC Sodium (137-145) mmol/L BUN (7-17) mg/dL Creatinine (0.52-1.04) mg/dL Glucose (74-99) mg/dL POC Glucose (mg/dL) 123 H (75-99) mg/dL Calcium (8.4-10.2) mg/dL Total Bilirubin (0.2-1.3) mg/dL AST (14-36) U/L ALT (9-52) U/L Alkaline Phosphatase (38-126) U/L Total Protein (6.3-8.2) g/dL Albumin (3.5-5.0) g/dL Hep Bs Antibody Reactive H (Non-Reactive) Crossmatch See Detail 04/17/18 04/17/18 04/18/18 Range/Units 18:22 23:42 04:35 WBC 14.8 H (3.8-10.6) k/uL RBC 2.53 L (3.80-5.40) m/uL Hgb 7.4 L (11.4-16.0) gm/dL Hct 23.3 L (34.0-46.0) % RDW 18.2 H (11.5-15.5) % Neutrophils # (Manual) 12.10 H (1.3-7.7) k/uL Metamyelocytes # (Man) 0.59 H (0) k/uL Nucleated RBCs 33 H (0-0) /100 WBC Sodium (137-145) mmol/L BUN (7-17) mg/dL Creatinine (0.52-1.04) mg/dL Glucose (74-99) mg/dL POC Glucose (mg/dL) 135 H 130 H (75-99) mg/dL Calcium (8.4-10.2) mg/dL Total Bilirubin (0.2-1.3) mg/dL AST (14-36) U/L ALT (9-52) U/L Alkaline Phosphatase (38-126) U/L Total Protein (6.3-8.2) g/dL Albumin (3.5-5.0) g/dL Hep Bs Antibody (Non-Reactive) Crossmatch 04/18/18 04/18/18 Range/Units 04:35 07:13 WBC (3.8-10.6) k/uL RBC (3.80-5.40) m/uL Hgb (11.4-16.0) gm/dL Hct (34.0-46.0) % RDW (11.5-15.5) % Neutrophils # (Manual) (1.3-7.7) k/uL Metamyelocytes # (Man) (0) k/uL Nucleated RBCs (0-0) /100 WBC Sodium 136 L (137-145) mmol/L BUN 20 H (7-17) mg/dL Creatinine 2.84 H (0.52-1.04) mg/dL Glucose 143 H (74-99) mg/dL POC Glucose (mg/dL) 166 H (75-99) mg/dL Calcium 6.5 L (8.4-10.2) mg/dL Total Bilirubin 4.9 H (0.2-1.3) mg/dL AST 663 H (14-36) U/L ALT 212 H (9-52) U/L Alkaline Phosphatase 392 H (38-126) U/L Total Protein 4.2 L (6.3-8.2) g/dL Albumin 2.2 L (3.5-5.0) g/dL Hep Bs Antibody (Non-Reactive) Crossmatch Assessment and Plan (1) Elevated liver enzymes Narrative/Plan: 47-year-old female admitted with a BOONE HTN sepsis VRE UTI hypotension with underlying pulmonary sarcoidosis elevated liver enzymes. Etiology of acute elevated liver enzymes is multifactorial suspect a component of sepsis shock liver from hypotensive events leading up to hospitalization as well as possible medication induced. Liver function tests were within normal limits prior to admission. She has underlying hepatic steatosis, diabetes mellitus, morbid obesity, and is in the process of undergoing neurologic evaluation for possible sarcoidosis of the brain. Hepatic sarcoidosis can occur up to 70% of patients with underlying sarcoidosis. Elevated alkaline phosphatase levels can be 5-10 times the upper limit of normal, transaminases are usually mildly elevated compared to alkaline phosphatase. Most patients are asymptomatic and not all cases require treatment. Liver biopsy is necessary for confirmation of diagnosis to help differentiate sarcoidosis from other autoimmune and or granulomatous liver diseases. Presently there is no evidence of cirrhosis jaundice pruritus or right upper quadrant abdominal pain. Asymptomatic patients require no treatment whereas symptomatic patients would require corticosteroids or ursodeoxycholic acid. Current Visit: Yes Status: Acute Code(s): R74.8 - ABNORMAL LEVELS OF OTHER SERUM ENZYMES SNOMED Code(s): 464184109 Plan: 1. Liver function tests are worsening we'll obtain PT/INR consideration for tertiary care center transfer if PT/INR worsens. Serologic workup for chronic liver disease. Daptomycin/antibiotics may be causing persistent elevation will discuss with ID. Continue with supportive measures. Overall condition is guarded. Assessment and plan a care discussed with Dr. Briceño
[2018-04-18] MEDS: PETROLATUM, WHITE OINT 50 GM TUBE TOPICAL SCH ×2 (09:20→20:58)
[2018-04-18] MEDS: ZINC OXIDE 20% OINT 28.4 GM TUBE TOPICAL SCH ×4 (09:20→20:59)
--- NOTE | 2018-04-18 09:38 | P.PN ---
Subjective Progress Note Date: 04/17/18 This is 47 years old female with past medical history significant for sarcoidosis, morbid obesity, diabetes mellitus and multiple comorbidities, residence of senior care who was recently discharged from [facility] presents today from senior care with hypotension, slight tachycardia and hypoxia. In the emergency department blood pressure was below 90/60, heart rate in the 110 area, oxygen was in the mid 80s patient was started on oxygen and blood work showed elevated creatinine patient was sent to VQ scan which showed intermediate probability with limited examination due to motion factor and patient was started on heparin drip for assumption of pulmonary embolism. Patient is poor historian and unable to provide detailed information and was refusing care per nursing staff since admission to the floor including her medication and using her BiPAP on an as-needed basis. Patient currently is denying chest pain, shortness breath, nausea, vomiting, abdominal pain or productive cough 04/10: Received call today from the nursing staff the patient was really sick, blood pressure was low and was lethargic and sleeping well on BiPAP most the morning and lactic acid was elevated at 5.8 last evening.. She was unable to take her medications or eat this morning. She has increased edema. Patient has only had 150 mL of urine output overnight. She does have a Lopez catheter in. There was no IV access. Patient has been seen by by nephrology and cortisol level ordered along with Solu-Cortef and Lasix 60 mg IV once. Prednisone was discontinued. Patient was transferred into the intensive care unit and consult requested with Dr. Robin for intensive care management. Methadone dose changed to 50 mg daily which is her current dose at [facility]. Diarrhea has resolved. 04/11: Repeat chest x-ray reveals stable cardiomegaly. PICC placement. Patient has been seen by Dr. Colon and vancomycin and daptomycin started, continue Zosyn. Santyl to lower extremity cellulitis. Patient has been seen by Dr. Robin with concern for possible left lower lobe pneumonia, small left pleural effusion and dehydration. This morning, Dr. Moran ordered Lasix 40 mg IV once , IV dextrose 50% and regular insulin. Cortisol level was normal. Steroids are Solu-Medrol 60 mg every 6 hours. Midodrine was started yesterday for blood pressure support. Blood pressure is much improved today. Hemoglobin is 9.3, sodium 131 and potassium 5.3, creatinine 2.99. Capillary blood glucose running between 117 and 134. Lactic acid is now down to 1.9. Vancomycin level 25.6. Patient has been hemodynamically stable, afebrile. Patient has been on BiPAP and this morning is on nasal cannula, she remains lethargic but more alert from yesterday. Lopez catheter is in place. She continues to have lower extremity edema and now with weeping. No diarrhea. Patient has not had a bowel movement since 04/10. Urine output has been adequate at 50 mL per hour for the past 4 hours. She is complaining of nausea and abdominal discomfort for which lipase and CAT scan of the abdomen and pelvis ordered with oral contrast only. 04/12: Patient remains in intensive care unit. She has been hemodynamically stable and Midodrine will be discontinued. Lopez catheter remains in place with good urine output. She had a large bowel movement last evening and a small soft bowel movement today. Creatinine is 3.36 and BUN 17.. Heart rates have been elevated. Patient is more alert today from yesterday. GI consult added for elevated liver function tests and abdominal ultrasound ordered. 04/13: Cardiology consult was added yesterday due to tachycardia and patient was started on Lopressor 12.5 mg twice daily and hold for systolic blood pressure less than 90. TSH was 1.620. She has been on BiPAP during the night. Abdominal ultrasound reveals hepatomegaly correlate for hepatic steatosis, diffuse hepatocellular disease or hepatitis. There is ringing down artifact involving the gallbladder wall which can occasionally be seen with adenomyomatosis. Repeat liver function tests are increasing with total bilirubin 1.8, AST 82, ALT 54, alkaline phosphatase 278. GI is following. BUN 20 and creatinine 3.67, urine output low. She has epigastric tenderness and protonix added to omeprazole. Patient eating very little and refused nephro today. She is cleared to be transferred to Cardiac Step down. 04/14: Patient is more lethargic today. She is refusing to open her mouth. She has had no oral medications nor oral intake. Yesterday she ate a little bit of fluid and Magic cups. She is currently on BiPAP at FiO2 of 35%. Urine output by the time of evaluation was only 25-30 mL. Lasix 80 mg IV ordered by Dr. Moran. Patient may require hemodialysis if renal function does not improve. Today creatinine is at 3.99. Oral sodium bicarb will be switched over to drip. GI is following and has been asked to place Dobbhoff. Ammonia level came back normal at 18. Liver function tests are also worsening. 04/15: Patient is awake this morning on BiPAP. Very little communication but nods her head. She is complaining of nausea and abdominal pain. She had a bowel movement early this morning. Renal function is worse with creatinine of 4.9, hemoglobin 8.8. Nephrology has ordered consult with vascular for [place] catheter placement with plan for hemodialysis today, Tuesday and Tuesday. Urine output has been less than 200 mL over the past 24 hours. Patient to continue on sodium bicarb drip. Nephrology is added back in mid drain. Dobbhoff to be placed today. 04/16: Patient remains in the intensive care unit. She was started on Levophed this morning for blood pressure. She is still on BiPAP. [place] catheter was placed by Dr. Winter yesterday to the right groin but she did have blood loss and was advised to hold off on dialysis. This is improved with no further bleeding. She continues to have scant amount of urine output. Plan from nephrology is for dialysis today she was resumed back on admitted draining yesterday. Bicarb drip is to be discontinued once dialysis is started. Patient is sleeping but awakens to verbal stimuli. She is able to nod to answer questions. She has generalized anasarca. Noted that she has gained 20 kg since admission. She has not had Dobbhoff placed by GI 04/17: Patient is off norepinephrine. Dobbhoff may be placed tonight. She does have a new wound to the right posterior knee area. She also has a skin tear to the left arm. She is currently on antibiotics in form of daptomycin and Zosyn which will be continued. She is undergoing hemodialysis. Hemoglobin is 7.2 with BUN 27 creatinine 3.58. Liver enzymes remain elevated. Hepatitis B surface antibody is reactive at 74. Review Of Systems: Constitutional: No fever, no chills, no night sweats. +weakness, +fatigue, + lethargy. + daytime sleepiness. EENT: No headache. No epistaxis. No sore throat. Lungs: + shortness of breath, + cough, no sputum production. No wheezing. Cardiovascular: No chest pain, + lower extremity edema. No palpitations. No paroxysmal nocturnal dyspnea. No orthopnea. No lightheadedness or dizziness. No syncopal episodes. Abdominal: +abdominal pain. No nausea, vomiting. No diarrhea, resolved. No constipation. No bloody or tarry stools. + loss of appetite. Genitourinary: No dysuria, increased frequency, urgency. + urinary retention. Musculoskeletal: + myalgias. + muscle weakness, + gait dysfunction. Integumentary: No rash or pruritus. + wheeping lower legs +wound right leg Neurological: + mental status change. Endocrine: + abnormal blood sugars. Objective - Vital Signs Vital signs: Vital Signs Temp 97.4 F L 04/17/18 08:00 Pulse 98 04/17/18 09:00 Resp 14 04/17/18 09:00 BP 107/31 04/17/18 09:00 Pulse Ox 100 04/17/18 09:00 Intake & Output 04/16/18 04/17/18 04/17/18 18:59 06:59 18:59 Intake Total 9685.825 9230.206 260 Output Total 1730 30 Balance -512.221 6229.206 260 Weight 186.426 kg 186.426 kg Intake: IV 1255 1465 210 DAPTOmycin 600 mg In 50 Sodium Chloride 0.9% 50 ml @ 100 mls/hr IVPB Q48H [facility] Rx#:[id number] Dextrose 5% in Water 1, 1200 1300 200 000 ml @ 100 mls/hr IV . Q11H [facility] with Sodium Bicarb (1 Meq/ml) 100 ml Rx#:[id number] Piperacillin-Tazobactam 3 50 .375 gm In Dextrose/Water 1 50ml.bag @ 12.5 mls/hr IVPB Q8HR [facility] Rx#: [id number] ns 55 65 10 Intake, IV Titration 93.739 15.206 50 Amount Norepinephrine 16 mg In 43.739 15.206 Sodium Chloride 0.9% 250 ml @ Titrate IV .Q0M [facility] Rx#:[id number] Piperacillin-Tazobactam 3 50 50 .375 gm In Dextrose/Water 1 50ml.bag @ 12.5 mls/hr IVPB Q12HR [facility] Rx#: [id number] Output: Urine 30 30 Other 1700 Other: Voiding Method Indwelling Catheter Indwelling Catheter # Voids 1 - Exam Gen: This is a morbidly obese 47-year-old female. She is in ICU bed and appears to be in no acute distress. She is lethargic. HEENT: Head is atraumatic, normocephalic. Pupils equal, round. Sclerae is anicteric. Hearing grossly normal. NECK: Supple. No JVD. No lymphadenopathy. No thyromegaly. LUNGS: Diminished bilaterally. Clear to auscultation. No wheezes or rhonchi. No intercostal retractions. HEART: Regular rate and rhythm. No murmur. ABDOMEN: Morbidly obese. Soft. Bowel sounds are present. No masses. Positive epigastric tenderness. Lopez catheter draining clear benjy urine, scant amount. EXTREMITIES: 2+ pedal edema with serous weeping. No calf tenderness. +wound posterior Rt leg NEUROLOGICAL: Patient is arousable and lethargic. Generalized weakness. She is able to nod her head to answer questions - Labs CBC & Chem 7: 04/18/18 04:35 04/18/18 04:35 Labs: Abnormal Lab Results - Last 24 Hours (Table) 04/16/18 04/16/18 04/16/18 Range/Units 11:40 17:06 20:30 WBC (3.8-10.6) k/uL RBC (3.80-5.40) m/uL Hgb (11.4-16.0) gm/dL Hct (34.0-46.0) % RDW (11.5-15.5) % Neutrophils # (Manual) (1.3-7.7) k/uL Myelocytes # (Manual) (0) k/uL Nucleated RBCs (0-0) /100 WBC Sodium (137-145) mmol/L BUN (7-17) mg/dL Creatinine (0.52-1.04) mg/dL Glucose (74-99) mg/dL POC Glucose (mg/dL) 128 H 157 H 137 H (75-99) mg/dL Calcium (8.4-10.2) mg/dL Phosphorus (2.5-4.5) mg/dL Total Bilirubin (0.2-1.3) mg/dL AST (14-36) U/L ALT (9-52) U/L Alkaline Phosphatase (38-126) U/L Total Protein (6.3-8.2) g/dL Albumin (3.5-5.0) g/dL 04/17/18 04/17/18 04/17/18 Range/Units 04:10 04:10 06:35 WBC 11.1 H (3.8-10.6) k/uL RBC 2.45 L (3.80-5.40) m/uL Hgb 7.2 L (11.4-16.0) gm/dL Hct 22.9 L (34.0-46.0) % RDW 18.8 H (11.5-15.5) % Neutrophils # (Manual) 8.60 H (1.3-7.7) k/uL Myelocytes # (Manual) 0.22 H (0) k/uL Nucleated RBCs 23 H (0-0) /100 WBC Sodium 134 L (137-145) mmol/L BUN 27 H (7-17) mg/dL Creatinine 3.58 H (0.52-1.04) mg/dL Glucose 115 H (74-99) mg/dL POC Glucose (mg/dL) 127 H (75-99) mg/dL Calcium 6.5 L (8.4-10.2) mg/dL Phosphorus 5.0 H (2.5-4.5) mg/dL Total Bilirubin 3.2 H (0.2-1.3) mg/dL AST 170 H (14-36) U/L ALT 90 H (9-52) U/L Alkaline Phosphatase 303 H (38-126) U/L Total Protein 4.6 L (6.3-8.2) g/dL Albumin 2.4 L (3.5-5.0) g/dL Assessment and Plan Plan: 1. Sepsis with septic shock secondary to urinary tract infection with lactic acidosis. Intensive care unit management. PICC line ordered for IV access. Consults with Dr. Robin and Dr. Colon appreciated. Continue daptomycin and Zosyn. IVF per Dr. Moran 2. Intermediate probability of pulmonary embolism ruled out. Pulmonary medicine is following 3. Acute respiratory failure on chronic respiratory failure with hypoxia. Continue albuterol nebulizer treatments every 6 hours, DuoNeb treatments every 4 hours as needed, Pulmicort twice daily, Solu-Medrol. 4. Morbid obesity with BMI of 59. 5. Neurogenic bladder with incontinence. Urinary retention requiring Lopez catheter placement. 6. Diabetes mellitus type 2 insulin-dependent. Metformin on hold. NovoLog scale before meals and at bedtime. 7. Debility and deconditioning. 8. Dehydration. 9. Acute kidney injury and ATN likely secondary to dehydration with hyperkalemia. Consult with nephrology appreciated. [place] catheter has been placed by Dr. Winter. Patient on hemodialysis today. Admitted during resumed and off Levofed. 10. Sarcoidosis following with [facility] on daily dose of steroids. 11. Hyperkalemia 12. Metabolic encephalopathy secondary to sepsis, improving. 13. Chronic pain. Methadone currently at 50 mg daily 14. Abdominal pain with worsening liver function tests mostly secondary to heart failure and congestion. 15. Severe protein calorie malnutrition. Request a GI place Dobbhoff and start tube feedings. Dietitian is following. Pre-albumin ordered. 16. Metabolic acidosis. Sodium bicarb will be switched over to IV until Dobbhoff is placed. 17. GERD and possible gastritis. Continue Pepcid and Protonix CODE STATUS: Full code Discharge plan: Return to [facility] as long-term resident. Patient is known to have guardian. (Sister and father) Impression and plan of care have been directed as dictated by the signing physician. Jeanne Roca nurse practitioner acting as scribe for signing physician.
[2018-04-18] MEDS: NYSTATIN 100,000 UNIT/GM POWD 15 GM TOPICAL SCH ×2 (09:45→20:58)
[2018-04-18 09:51] LABS: INR 1.5 (<1.2); Prothrombin Time 13.8 sec (9.0-12.0)
[2018-04-18] MEDS ORDERED: FUROSEMIDE 10 MG/ML 10 ML VIAL IV STA (10:29)
--- NOTE | 2018-04-18 10:30 | P.PN ---
Subjective Patient is seen in follow for acute kidney injury. Her baseline creatinine is 1. Renal function worsened this admission with creatinine up to 4.55 on April 16. Patient presented to the hospital due to hypotension with systolic blood pressure in the 60s at the ECF. Patient was transferred to the ICU with persistent hypotension and lactic acidosis. She is currently maintained on normal saline at 100 mL an hour. She was also started on IV steroids. Cortisol level normal. Remains oliguric. She was started on hemodialysis on April 16 and has been tolerating the treatments well. She is currently on 2 mics of Levophed. She also has been started on tube feeds. Vital signs are stable. General: The patient appeared well nourished and normally developed. HEENT: Head exam is unremarkable. Neck is without jugular venous distension. LUNGS: Breath sounds decreased. HEART: Rate and Rhythm are regular. First and second heart sounds normal. No murmurs, rubs or gallops. ABDOMEN: Abdominal exam reveals normal bowel sounds. Non-tender and non- distended. No evidence of peritonitis. EXTREMITITES: 2+ edema. Objective - Vital Signs Vital signs: Vital Signs Temp 98.2 F 04/18/18 04:01 Pulse 101 H 04/18/18 08:25 Resp 14 04/18/18 04:01 BP 120/71 04/18/18 04:01 Pulse Ox 98 04/18/18 04:01 Intake & Output 04/17/18 04/18/18 04/18/18 18:59 06:59 18:59 Intake Total 7648.940 3127.132 0 Output Total 1850 51 Balance -919.679 0226.132 0 Weight 186.426 kg Intake: IV 255 955 Dextrose 5% in Water 1, 200 000 ml @ 100 mls/hr IV . Q11H [facility] with Sodium Bicarb (1 Meq/ml) 100 ml Rx#:[id number] Piperacillin-Tazobactam 3 50 .375 gm In Dextrose/Water 1 50ml.bag @ 12.5 mls/hr IVPB Q12HR [facility] Rx#: [id number] ns 55 905 Intake, IV Titration 960.772 101.132 0 Amount Norepinephrine 16 mg In 10 1.132 0 Sodium Chloride 0.9% 250 ml @ Titrate IV .Q0M [facility] Rx#:[id number] Piperacillin-Tazobactam 3 50 .375 gm In Dextrose/Water 1 50ml.bag @ 12.5 mls/hr IVPB Q12HR [facility] Rx#: [id number] Sodium Chloride 0.9% 1, 900 100 000 ml @ 100 mls/hr IV . Q10H [facility] Rx#:[id number] Tube Feeding 30 200 Blood Product 310 310 Rc Cpda-1 Unit 0 310 [id number] Other 30 60 Output: Urine 51 Other 1850 Other: Voiding Method Indwelling Catheter Indwelling Catheter - Labs CBC & Chem 7: 04/18/18 04:35 04/18/18 04:35 Labs: Abnormal Lab Results - Last 24 Hours (Table) 04/16/18 04/17/18 04/17/18 Range/Units 05:05 11:12 15:30 WBC (3.8-10.6) k/uL RBC (3.80-5.40) m/uL Hgb (11.4-16.0) gm/dL Hct (34.0-46.0) % RDW (11.5-15.5) % Neutrophils # (Manual) (1.3-7.7) k/uL Metamyelocytes # (Man) (0) k/uL Nucleated RBCs (0-0) /100 WBC PT (9.0-12.0) sec INR (<1.2) Sodium (137-145) mmol/L BUN (7-17) mg/dL Creatinine (0.52-1.04) mg/dL Glucose (74-99) mg/dL POC Glucose (mg/dL) 123 H (75-99) mg/dL Calcium (8.4-10.2) mg/dL Total Bilirubin (0.2-1.3) mg/dL AST (14-36) U/L ALT (9-52) U/L Alkaline Phosphatase (38-126) U/L Total Protein (6.3-8.2) g/dL Albumin (3.5-5.0) g/dL Hep Bs Antibody Reactive H (Non-Reactive) Crossmatch See Detail 04/17/18 04/17/18 04/18/18 Range/Units 18:22 23:42 04:35 WBC 14.8 H (3.8-10.6) k/uL RBC 2.53 L (3.80-5.40) m/uL Hgb 7.4 L (11.4-16.0) gm/dL Hct 23.3 L (34.0-46.0) % RDW 18.2 H (11.5-15.5) % Neutrophils # (Manual) 12.10 H (1.3-7.7) k/uL Metamyelocytes # (Man) 0.59 H (0) k/uL Nucleated RBCs 33 H (0-0) /100 WBC PT (9.0-12.0) sec INR (<1.2) Sodium (137-145) mmol/L BUN (7-17) mg/dL Creatinine (0.52-1.04) mg/dL Glucose (74-99) mg/dL POC Glucose (mg/dL) 135 H 130 H (75-99) mg/dL Calcium (8.4-10.2) mg/dL Total Bilirubin (0.2-1.3) mg/dL AST (14-36) U/L ALT (9-52) U/L Alkaline Phosphatase (38-126) U/L Total Protein (6.3-8.2) g/dL Albumin (3.5-5.0) g/dL Hep Bs Antibody (Non-Reactive) Crossmatch 04/18/18 04/18/18 04/18/18 Range/Units 04:35 07:13 09:06 WBC (3.8-10.6) k/uL RBC (3.80-5.40) m/uL Hgb (11.4-16.0) gm/dL Hct (34.0-46.0) % RDW (11.5-15.5) % Neutrophils # (Manual) (1.3-7.7) k/uL Metamyelocytes # (Man) (0) k/uL Nucleated RBCs (0-0) /100 WBC PT 13.8 H (9.0-12.0) sec INR 1.5 H (<1.2) Sodium 136 L (137-145) mmol/L BUN 20 H (7-17) mg/dL Creatinine 2.84 H (0.52-1.04) mg/dL Glucose 143 H (74-99) mg/dL POC Glucose (mg/dL) 166 H (75-99) mg/dL Calcium 6.5 L (8.4-10.2) mg/dL Total Bilirubin 4.9 H (0.2-1.3) mg/dL AST 663 H (14-36) U/L ALT 212 H (9-52) U/L Alkaline Phosphatase 392 H (38-126) U/L Total Protein 4.2 L (6.3-8.2) g/dL Albumin 2.2 L (3.5-5.0) g/dL Hep Bs Antibody (Non-Reactive) Crossmatch Assessment and Plan Plan: Assessment: 1. Acute kidney injury secondary to ATN secondary to hypotension. Creatinine peaked at 4.99 on April 16. Baseline creatinine near 1. No hydronephrosis noted on renal ultrasound. She is noted to have sub-nephrotic proteinuria. 2. Proteinuria. Her albumin is also low. UPC 0.5. Rule out GN. Serologies negative. Urine eosinophils negative. 3. Metabolic acidosis secondary to acute kidney injury and IV fluids. Better. 4. Edema. 5. Hypotension. This is due to to sepsis. Cortisol level normal. Currently on 2 mics of Levophed. 6. Diabetes mellitus. Patient states this was diagnosed within the last 1 year. 7. UTI with urine culture positive for VRE. Infectious disease following. Vancomycin discontinued. 8. Hyperkalemia. This is due to acute kidney injury and metabolic acidosis. Potassium supplementation discontinued. Better. 9. Hyponatremia secondary to acute kidney injury. Better. 10. Hyperphosphatemia secondary to BOONE. Better with dialysis. Also on PhosLo. 11. Systolic CHF with ejection fraction of 45-50% with moderate pulmonary hypertension. 12. Elevated liver enzymes. GI following. May require liver biopsy. Also potential transfer to tertiary care center. Plan: Continue normal saline at 100 mL an hour. Strict I's and O's. Discontinued oral bicarb. Avoid nephrotoxins. Hemodialysis today with ultrafiltration as tolerated. Lasix 80 mg IV once today.
[2018-04-18 11:19] LABS: ABG Base Excess -0.4 mmol/L; ABG HCO3 24 mmol/L (21-25); ABG Oxygen Saturation 99.8 % (94-97); ABG PCO2 37 mmHg (35-45); ABG PH 7.42 (7.35-7.45); ABG PO2 139 mmHg (83-108); ABG TCO2 25 mmol/L (19-24)
[2018-04-18] MEDS: FLUTICASONE 110 MCG INHALER INHALATION SCH ×2 (11:55→19:49)
[2018-04-18 11:57] LABS: Glucose,Whole Blood 161 mg/dL (75-99)
--- NOTE | 2018-04-18 12:26 | P.PN ---
Subjective Progress Note Date: 04/18/18 Interval history: Patient is being seen examined and evaluated today on rounds. She continues to be in the ICU. She continues on the BiPAP and is tolerating that well. Currently she is undergoing dialysis and potentially having 2 L of fluid to be pulled off. She has been on and off of vasopressors in the last 24 hours. Currently the patient was put back on Levophed. She currently is on tube feeds and is tolerating that well. She continues on IV steroids. She is afebrile, no further complaints. Her labs from this morning are reviewed. Her AST has increased to 663, a LT increased to 212, her bilirubin increased to 4.9, BUN is 20, creatinine is 2.84, hemoglobin is stable at 7.4, daily after meals 14.8. Her care team follows her closely in collaboration including internal medicine, nephrology, pulmonary, infectious disease, intensivists, GI physician, cardiology, vascular surgery, and recently added pain management. Objective - Vital Signs Vital signs: Vital Signs Temp 98.2 F 04/18/18 04:01 Pulse 101 H 04/18/18 08:25 Resp 14 04/18/18 04:01 BP 120/71 04/18/18 04:01 Pulse Ox 98 04/18/18 04:01 Intake & Output 04/17/18 04/18/18 04/18/18 18:59 06:59 18:59 Intake Total 2787.658 3919.132 5 Output Total 1850 51 Balance -972.916 9028.132 5 Weight 186.426 kg Intake: IV 255 955 Dextrose 5% in Water 1, 200 000 ml @ 100 mls/hr IV . Q11H [facility] with Sodium Bicarb (1 Meq/ml) 100 ml Rx#:[id number] Piperacillin-Tazobactam 3 50 .375 gm In Dextrose/Water 1 50ml.bag @ 12.5 mls/hr IVPB Q12HR [facility] Rx#: [id number] ns 55 905 Intake, IV Titration 960.772 101.132 5 Amount Norepinephrine 16 mg In 10.772 1.132 5 Sodium Chloride 0.9% 250 ml @ Titrate IV .Q0M [facility] Rx#:[id number] Piperacillin-Tazobactam 3 50 .375 gm In Dextrose/Water 1 50ml.bag @ 12.5 mls/hr IVPB Q12HR [facility] Rx#: [id number] Sodium Chloride 0.9% 1, 900 100 000 ml @ 100 mls/hr IV . Q10H [facility] Rx#:[id number] Tube Feeding 30 200 Blood Product 310 310 Rc Cpda-1 Unit 0 310 [id number] Other 30 60 Output: Urine 51 Other 1850 Other: Voiding Method Indwelling Catheter Indwelling Catheter - Exam GENERAL EXAM: Alert, comfortable in no apparent distress. Morbidly obese HEAD: Normocephalic. EYES: Normal reaction of pupils, equal size. NOSE: Clear with pink turbinates. THROAT: No erythema or exudates. NECK: No masses, no JVD. CHEST: No chest wall deformity. LUNGS: Decreased breath sounds throughout, on BiPAP CVS: S1 and S2 normal with no audible mumurs, regular rhythm. ABDOMEN: No hepatosplenomegaly, normal bowel sounds, no guarding or rigidity. EXTREMITIES: +2 bilateral lower extremity edema noted, pedal pulses palpable. Bilateral Gurwinder wraps CENTRAL NERVOUS SYSTEM: No focal deficits, tone is normal in all 4 extremities. - Labs CBC & Chem 7: 04/18/18 04:35 04/18/18 04:35 Labs: Abnormal Lab Results - Last 24 Hours (Table) 04/17/18 04/17/18 04/17/18 Range/Units 15:30 18:22 23:42 WBC (3.8-10.6) k/uL RBC (3.80-5.40) m/uL Hgb (11.4-16.0) gm/dL Hct (34.0-46.0) % RDW (11.5-15.5) % Neutrophils # (Manual) (1.3-7.7) k/uL Metamyelocytes # (Man) (0) k/uL Nucleated RBCs (0-0) /100 WBC PT (9.0-12.0) sec INR (<1.2) ABG pO2 (83-108) mmHg ABG Total CO2 (19-24) mmol/L ABG O2 Saturation (94-97) % Sodium (137-145) mmol/L BUN (7-17) mg/dL Creatinine (0.52-1.04) mg/dL Glucose (74-99) mg/dL POC Glucose (mg/dL) 135 H 130 H (75-99) mg/dL Calcium (8.4-10.2) mg/dL Total Bilirubin (0.2-1.3) mg/dL AST (14-36) U/L ALT (9-52) U/L Alkaline Phosphatase (38-126) U/L Total Protein (6.3-8.2) g/dL Albumin (3.5-5.0) g/dL Crossmatch See Detail 04/18/18 04/18/18 04/18/18 Range/Units 04:35 04:35 07:13 WBC 14.8 H (3.8-10.6) k/uL RBC 2.53 L (3.80-5.40) m/uL Hgb 7.4 L (11.4-16.0) gm/dL Hct 23.3 L (34.0-46.0) % RDW 18.2 H (11.5-15.5) % Neutrophils # (Manual) 12.10 H (1.3-7.7) k/uL Metamyelocytes # (Man) 0.59 H (0) k/uL Nucleated RBCs 33 H (0-0) /100 WBC PT (9.0-12.0) sec INR (<1.2) ABG pO2 (83-108) mmHg ABG Total CO2 (19-24) mmol/L ABG O2 Saturation (94-97) % Sodium 136 L (137-145) mmol/L BUN 20 H (7-17) mg/dL Creatinine 2.84 H (0.52-1.04) mg/dL Glucose 143 H (74-99) mg/dL POC Glucose (mg/dL) 166 H (75-99) mg/dL Calcium 6.5 L (8.4-10.2) mg/dL Total Bilirubin 4.9 H (0.2-1.3) mg/dL AST 663 H (14-36) U/L ALT 212 H (9-52) U/L Alkaline Phosphatase 392 H (38-126) U/L Total Protein 4.2 L (6.3-8.2) g/dL Albumin 2.2 L (3.5-5.0) g/dL Crossmatch 04/18/18 04/18/18 04/18/18 Range/Units 09:06 11:12 11:45 WBC (3.8-10.6) k/uL RBC (3.80-5.40) m/uL Hgb (11.4-16.0) gm/dL Hct (34.0-46.0) % RDW (11.5-15.5) % Neutrophils # (Manual) (1.3-7.7) k/uL Metamyelocytes # (Man) (0) k/uL Nucleated RBCs (0-0) /100 WBC PT 13.8 H (9.0-12.0) sec INR 1.5 H (<1.2) ABG pO2 139 H (83-108) mmHg ABG Total CO2 25 H (19-24) mmol/L ABG O2 Saturation 99.8 H (94-97) % Sodium (137-145) mmol/L BUN (7-17) mg/dL Creatinine (0.52-1.04) mg/dL Glucose (74-99) mg/dL POC Glucose (mg/dL) 161 H (75-99) mg/dL Calcium (8.4-10.2) mg/dL Total Bilirubin (0.2-1.3) mg/dL AST (14-36) U/L ALT (9-52) U/L Alkaline Phosphatase (38-126) U/L Total Protein (6.3-8.2) g/dL Albumin (3.5-5.0) g/dL Crossmatch Assessment and Plan Assessment: Assessment Acute on chronic hypoxic respiratory failure Hypoventilation syndrome Possible central versus obstructive sleep apnea Sarcoidosis Chronic severe persistent asthma Acute on chronic renal failure on hemodialysis Morbid obesity Elevated liver enzymes Severe sepsis with septic shock related to UTI and a component of bilateral lower extremity cellulitis Plan Medications have been reviewed and will be continued as ordered. IV steroid taper and antibiotics Vasopressors for hypotension wean as tolerated Continue with pulmonary hygiene, coughing and deep breathing exercises, and supportive care. Supplemental oxygen to maintain oxygen saturations of 92% or better. BiPAP at night and as needed Continue nebulizer treatments. Hemodialysis per nephrology GI and DVT prophylaxis. Collaborative care with internal medicine, nephrology, pulmonary, infectious disease, sketch maker, GI services, cardiology, vascular surgery and pain management, appreciate input and recommendations We will continue to monitor labs/results and adjust treatment as necessary. Further recommendations pending. I, the signing physician performed an examination of the patient, discussed and directed their management with the nurse practitioner. I have reviewed the nurse practitioner's note and agree with the documented findings, orders and plan of care.
[2018-04-18] MEDS ORDERED: ALBUMIN HUMAN 25% 100 ML in EMPTY BAG 1 BAG IVPB SCH (13:00)
[2018-04-18] MEDS ORDERED: ALBUMIN HUMAN 25% 50 ML in EMPTY BAG 1 BAG IVPB SCH (13:00)
[2018-04-18] MEDS: ALBUMIN HUMAN 25% 50 ML in EMPTY BAG 1 BAG IVPB SCH ×2 (14:40→19:31)
[2018-04-18] MEDS: SODIUM CHLORIDE 0.9% 1,000 ML IV SCH ×2 (14:44→19:59)
--- NOTE | 2018-04-18 15:01 | P.PN ---
<Jeanne Roca A - Last Filed: 04/18/18 14:43> Subjective Progress Note Date: 04/18/18 This is 47 years old female with past medical history significant for sarcoidosis, morbid obesity, diabetes mellitus and multiple comorbidities, residence of senior care who was recently discharged from [facility] presents today from senior care with hypotension, slight tachycardia and hypoxia. In the emergency department blood pressure was below 90/60, heart rate in the 110 area, oxygen was in the mid 80s patient was started on oxygen and blood work showed elevated creatinine patient was sent to VQ scan which showed intermediate probability with limited examination due to motion factor and patient was started on heparin drip for assumption of pulmonary embolism. Patient is poor historian and unable to provide detailed information and was refusing care per nursing staff since admission to the floor including her medication and using her BiPAP on an as-needed basis. Patient currently is denying chest pain, shortness breath, nausea, vomiting, abdominal pain or productive cough 04/10: Received call today from the nursing staff the patient was really sick, blood pressure was low and was lethargic and sleeping well on BiPAP most the morning and lactic acid was elevated at 5.8 last evening.. She was unable to take her medications or eat this morning. She has increased edema. Patient has only had 150 mL of urine output overnight. She does have a Lopez catheter in. There was no IV access. Patient has been seen by by nephrology and cortisol level ordered along with Solu-Cortef and Lasix 60 mg IV once. Prednisone was discontinued. Patient was transferred into the intensive care unit and consult requested with Dr. Robin for intensive care management. Methadone dose changed to 50 mg daily which is her current dose at [facility]. Diarrhea has resolved. 04/11: Repeat chest x-ray reveals stable cardiomegaly. PICC placement. Patient has been seen by Dr. Colon and vancomycin and daptomycin started, continue Zosyn. Santyl to lower extremity cellulitis. Patient has been seen by Dr. Robin with concern for possible left lower lobe pneumonia, small left pleural effusion and dehydration. This morning, Dr. Moran ordered Lasix 40 mg IV once , IV dextrose 50% and regular insulin. Cortisol level was normal. Steroids are Solu-Medrol 60 mg every 6 hours. Midodrine was started yesterday for blood pressure support. Blood pressure is much improved today. Hemoglobin is 9.3, sodium 131 and potassium 5.3, creatinine 2.99. Capillary blood glucose running between 117 and 134. Lactic acid is now down to 1.9. Vancomycin level 25.6. Patient has been hemodynamically stable, afebrile. Patient has been on BiPAP and this morning is on nasal cannula, she remains lethargic but more alert from yesterday. Lopez catheter is in place. She continues to have lower extremity edema and now with weeping. No diarrhea. Patient has not had a bowel movement since 04/10. Urine output has been adequate at 50 mL per hour for the past 4 hours. She is complaining of nausea and abdominal discomfort for which lipase and CAT scan of the abdomen and pelvis ordered with oral contrast only. 04/12: Patient remains in intensive care unit. She has been hemodynamically stable and Midodrine will be discontinued. Lopez catheter remains in place with good urine output. She had a large bowel movement last evening and a small soft bowel movement today. Creatinine is 3.36 and BUN 17.. Heart rates have been elevated. Patient is more alert today from yesterday. GI consult added for elevated liver function tests and abdominal ultrasound ordered. 04/13: Cardiology consult was added yesterday due to tachycardia and patient was started on Lopressor 12.5 mg twice daily and hold for systolic blood pressure less than 90. TSH was 1.620. She has been on BiPAP during the night. Abdominal ultrasound reveals hepatomegaly correlate for hepatic steatosis, diffuse hepatocellular disease or hepatitis. There is ringing down artifact involving the gallbladder wall which can occasionally be seen with adenomyomatosis. Repeat liver function tests are increasing with total bilirubin 1.8, AST 82, ALT 54, alkaline phosphatase 278. GI is following. BUN 20 and creatinine 3.67, urine output low. She has epigastric tenderness and protonix added to omeprazole. Patient eating very little and refused nephro today. She is cleared to be transferred to Cardiac Step down. 04/14: Patient is more lethargic today. She is refusing to open her mouth. She has had no oral medications nor oral intake. Yesterday she ate a little bit of fluid and Magic cups. She is currently on BiPAP at FiO2 of 35%. Urine output by the time of evaluation was only 25-30 mL. Lasix 80 mg IV ordered by Dr. Moran. Patient may require hemodialysis if renal function does not improve. Today creatinine is at 3.99. Oral sodium bicarb will be switched over to drip. GI is following and has been asked to place Dobbhoff. Ammonia level came back normal at 18. Liver function tests are also worsening. 04/15: Patient is awake this morning on BiPAP. Very little communication but nods her head. She is complaining of nausea and abdominal pain. She had a bowel movement early this morning. Renal function is worse with creatinine of 4.9, hemoglobin 8.8. Nephrology has ordered consult with vascular for [place] catheter placement with plan for hemodialysis today, Tuesday and Tuesday. Urine output has been less than 200 mL over the past 24 hours. Patient to continue on sodium bicarb drip. Nephrology is added back in mid drain. Dobbhoff to be placed today. 04/16: Patient remains in the intensive care unit. She was started on Levophed this morning for blood pressure. She is still on BiPAP. [place] catheter was placed by Dr. Winter yesterday to the right groin but she did have blood loss and was advised to hold off on dialysis. This is improved with no further bleeding. She continues to have scant amount of urine output. Plan from nephrology is for dialysis today she was resumed back on admitted draining yesterday. Bicarb drip is to be discontinued once dialysis is started. Patient is sleeping but awakens to verbal stimuli. She is able to nod to answer questions. She has generalized anasarca. Noted that she has gained 20 kg since admission. She has not had Dobbhoff placed by GI 04/17: Patient is off norepinephrine. Dobbhoff may be placed tonight. She does have a new wound to the right posterior knee area. She also has a skin tear to the left arm. She is currently on antibiotics in form of daptomycin and Zosyn which will be continued. She is undergoing hemodialysis. Hemoglobin is 7.2 with BUN 27 creatinine 3.58. Liver enzymes remain elevated. Hepatitis B surface antibody is reactive at 74. 04/18: Patient will be undergoing hemodialysis this morning. She was placed back on norepinephrine drip last evening and has been intermittently for blood pressure systolic of 80. She is able to answer yes and no to questions. Liver function tests continued to rise. GI has recommended transfer to [facility] but patient is not candidate for biopsy. We have known in the past that the sister has been very resistant to her transferring out of [place] to [facility]. She now has an NG tube in place and receiving nephro that will be at goal liters today. Hepatitis B surface antibody was reactive at 74. There is concern that she is not been receiving methadone but this has been clarified by pain management that this can be crushed and put an NG tube which will be continued. White count is 14.8, hemoglobin 7.4, INR 1.5. BUN 20 creatinine 2.84 which is improved over the past couple days. AST 663, ALT 212, alkaline phosphatase 392. Total bilirubin is 4.9. Capillary blood glucose running between 130 and 166. We'll plan to monitor for at least another 24 hours and then discuss possible transfer with the family. Records reviewed from [facility]. 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 In 2016, PFT showed mild restriction with normal diffusion capacity. No response to bronchodilators. She had good response to Enbrel for 3 years but had to be stopped due to insurance company authorization. 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 She was not evaluated by neurosurgery and she had improvement of her mental status. MRI of the spine revealed fatty atrophy of the paraspinal musculature. No significant canal compromise or cord compression. Limited evaluation of right brachial plexus with no obvious abnormality. 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 Plan: wean prednisone down by 5 mg every week to end point of 20 mg, follow up with Dr. Gar[facility] April 25 at 1:15 and neurology follow-up with Dr. Garzon on April 03 at 9 AM. Review Of Systems: Constitutional: No fever, no chills, no night sweats. +weakness, +fatigue, + lethargy. + daytime sleepiness. EENT: No headache. No epistaxis. No sore throat. Lungs: + shortness of breath, + cough, no sputum production. No wheezing. Cardiovascular: No chest pain, + lower extremity edema. No palpitations. No paroxysmal nocturnal dyspnea. No orthopnea. No lightheadedness or dizziness. No syncopal episodes. Abdominal: +abdominal pain. No nausea, vomiting. No diarrhea, resolved. No constipation. No bloody or tarry stools. + loss of appetite. Genitourinary: No dysuria, increased frequency, urgency. + urinary retention. Musculoskeletal: + myalgias. + muscle weakness, + gait dysfunction. Integumentary: No rash or pruritus. + wheeping bilateral lower legs and bilateral arms Neurological: + mental status change. Endocrine: + abnormal blood sugars. Objective - Vital Signs Vital signs: Vital Signs Temp 98.2 F 04/18/18 04:01 Pulse 101 H 04/18/18 08:25 Resp 14 04/18/18 04:01 BP 120/71 04/18/18 04:01 Pulse Ox 98 04/18/18 04:01 Intake & Output 04/17/18 04/18/18 04/18/18 18:59 06:59 18:59 Intake Total 6038.906 2917.132 0 Output Total 1850 51 Balance -873.796 6353.132 0 Weight 186.426 kg Intake: IV 255 955 Dextrose 5% in Water 1, 200 000 ml @ 100 mls/hr IV . Q11H [facility] with Sodium Bicarb (1 Meq/ml) 100 ml Rx#:[id number] Piperacillin-Tazobactam 3 50 .375 gm In Dextrose/Water 1 50ml.bag @ 12.5 mls/hr IVPB Q12HR COUNT INCLUDES THE [facility] Rx#: [id number] ns 55 905 Intake, IV Titration 960.772 101.132 0 Amount Norepinephrine 16 mg In 10.772 1.132 0 Sodium Chloride 0.9% 250 ml @ Titrate IV .Q0M COUNT INCLUDES THE [facility] Rx#:[id number] Piperacillin-Tazobactam 3 50 .375 gm In Dextrose/Water 1 50ml.bag @ 12.5 mls/hr IVPB Q12HR [facility] Rx#: [id number] Sodium Chloride 0.9% 1, 900 100 000 ml @ 100 mls/hr IV . Q10H COUNT INCLUDES THE [facility] Rx#:[id number] Tube Feeding 30 200 Blood Product 310 310 Rc Cpda-1 Unit 0 310 [id number] Other 30 60 Output: Urine 51 Other 1850 Other: Voiding Method Indwelling Catheter Indwelling Catheter - Exam Gen: This is a morbidly obese 47-year-old female. She is in ICU bed and appears to be in no acute distress. She is lethargic. HEENT: Head is atraumatic, normocephalic. Pupils equal, round. Sclerae is anicteric. Hearing grossly normal. NECK: Supple. No JVD. No lymphadenopathy. No thyromegaly. LUNGS: Diminished bilaterally. Clear to auscultation. No wheezes or rhonchi. No intercostal retractions. HEART: Regular rate and rhythm. No murmur. ABDOMEN: Morbidly obese. Soft. Bowel sounds are present. No masses. Positive epigastric tenderness. Lopez catheter draining clear benjy urine, scant amount. EXTREMITIES: 2+ pedal edema with serous weeping. No calf tenderness. +wound posterior Rt leg with significant weeping of serous fluid from her right leg, left leg, groins, bilateral arms. NEUROLOGICAL: Patient is arousable and lethargic. Generalized severeweakness. She is able to nod her head to answer questions - Labs CBC & Chem 7: 04/18/18 04:35 04/18/18 04:35 Labs: Abnormal Lab Results - Last 24 Hours (Table) 04/16/18 04/17/18 04/17/18 Range/Units 05:05 11:12 15:30 WBC (3.8-10.6) k/uL RBC (3.80-5.40) m/uL Hgb (11.4-16.0) gm/dL Hct (34.0-46.0) % RDW (11.5-15.5) % Neutrophils # (Manual) (1.3-7.7) k/uL Metamyelocytes # (Man) (0) k/uL Nucleated RBCs (0-0) /100 WBC Sodium (137-145) mmol/L BUN (7-17) mg/dL Creatinine (0.52-1.04) mg/dL Glucose (74-99) mg/dL POC Glucose (mg/dL) 123 H (75-99) mg/dL Calcium (8.4-10.2) mg/dL Total Bilirubin (0.2-1.3) mg/dL AST (14-36) U/L ALT (9-52) U/L Alkaline Phosphatase (38-126) U/L Total Protein (6.3-8.2) g/dL Albumin (3.5-5.0) g/dL Hep Bs Antibody Reactive H (Non-Reactive) Crossmatch See Detail 04/17/18 04/17/18 04/18/18 Range/Units 18:22 23:42 04:35 WBC 14.8 H (3.8-10.6) k/uL RBC 2.53 L (3.80-5.40) m/uL Hgb 7.4 L (11.4-16.0) gm/dL Hct 23.3 L (34.0-46.0) % RDW 18.2 H (11.5-15.5) % Neutrophils # (Manual) 12.10 H (1.3-7.7) k/uL Metamyelocytes # (Man) 0.59 H (0) k/uL Nucleated RBCs 33 H (0-0) /100 WBC Sodium (137-145) mmol/L BUN (7-17) mg/dL Creatinine (0.52-1.04) mg/dL Glucose (74-99) mg/dL POC Glucose (mg/dL) 135 H 130 H (75-99) mg/dL Calcium (8.4-10.2) mg/dL Total Bilirubin (0.2-1.3) mg/dL AST (14-36) U/L ALT (9-52) U/L Alkaline Phosphatase (38-126) U/L Total Protein (6.3-8.2) g/dL Albumin (3.5-5.0) g/dL Hep Bs Antibody (Non-Reactive) Crossmatch 04/18/18 04/18/18 Range/Units 04:35 07:13 WBC (3.8-10.6) k/uL RBC (3.80-5.40) m/uL Hgb (11.4-16.0) gm/dL Hct (34.0-46.0) % RDW (11.5-15.5) % Neutrophils # (Manual) (1.3-7.7) k/uL Metamyelocytes # (Man) (0) k/uL Nucleated RBCs (0-0) /100 WBC Sodium 136 L (137-145) mmol/L BUN 20 H (7-17) mg/dL Creatinine 2.84 H (0.52-1.04) mg/dL Glucose 143 H (74-99) mg/dL POC Glucose (mg/dL) 166 H (75-99) mg/dL Calcium 6.5 L (8.4-10.2) mg/dL Total Bilirubin 4.9 H (0.2-1.3) mg/dL AST 663 H (14-36) U/L ALT 212 H (9-52) U/L Alkaline Phosphatase 392 H (38-126) U/L Total Protein 4.2 L (6.3-8.2) g/dL Albumin 2.2 L (3.5-5.0) g/dL Hep Bs Antibody (Non-Reactive) Crossmatch Assessment and Plan Plan: 1. Sepsis with septic shock secondary to urinary tract infection with lactic acidosis. Intensive care unit management. PICC line ordered for IV access. Consults with Dr. Robin and Dr. Colon appreciated. Continue daptomycin and Zosyn. IVF per Dr. Moran 2. Intermediate probability of pulmonary embolism ruled out. Pulmonary medicine is following 3. Acute respiratory failure on chronic respiratory failure with hypoxia. Continue albuterol nebulizer treatments every 6 hours, DuoNeb treatments every 4 hours as needed, Pulmicort twice daily, Solu-Medrol. 4. Morbid obesity with BMI of 59. 5. Neurogenic bladder with incontinence. Urinary retention requiring Lopez catheter placement. 6. Diabetes mellitus type 2 insulin-dependent. Metformin on hold. NovoLog scale before meals and at bedtime. 7. Debility and deconditioning. 8. Dehydration. 9. Acute kidney injury and ATN likely secondary to dehydration with hyperkalemia. Consult with nephrology appreciated. [place] catheter has been placed by Dr. Winter. Patient on hemodialysis today. Admitted during resumed and off Levofed. 10. Sarcoidosis following with [facility] on daily dose of steroids. 11. Hyperkalemia 12. Metabolic encephalopathy secondary to sepsis, improving. 13. Chronic pain. Methadone currently at 50 mg daily 14. Abdominal pain with worsening liver function tests mostly secondary to heart failure and congestion. 15. Severe protein calorie malnutrition. Request a GI place Dobbhoff and start tube feedings. Dietitian is following. Pre-albumin ordered. 16. Metabolic acidosis. Sodium bicarb will be switched over to IV until Dobbhoff is placed. 17. GERD and possible gastritis. Continue Pepcid and Protonix CODE STATUS: Full code Prognosis guarded Discharge plan: Return to [facility] as long-term resident. Patient is known to have guardian. (Sister and father) Impression and plan of care have been directed as dictated by the signing physician. Jeanne Roca nurse practitioner acting as scribe for signing physician. <Vicky Thompson - Last Filed: 04/18/18 19:12> Objective - Vital Signs Vital signs: Vital Signs Temp 97.7 F 04/18/18 12:00 Pulse 111 H 04/18/18 15:05 Resp 14 04/18/18 15:05 BP 87/28 04/18/18 15:05 Pulse Ox 100 04/18/18 15:05 Intake & Output 04/18/18 04/18/18 04/19/18 06:59 18:59 06:59 Intake Total 5140.793 1394.476 Output Total 51 14 Balance 3676.230 2095.476 Weight 182.7 kg Intake: IV 955 Piperacillin-Tazobactam 3 50 .375 gm In Dextrose/Water 1 50ml.bag @ 12.5 mls/hr IVPB Q12HR [facility] Rx#: [id number] ns 905 Intake, IV Titration 462.011 0351.476 Amount Albumin Human 25% 50 ml 50 In Empty Bag 1 bag @ 100 mls/hr IVPB Q12H [facility] Rx#: [id number] Norepinephrine 16 mg In 1.132 29.476 Sodium Chloride 0.9% 250 ml @ Titrate IV .Q0M [facility] Rx#:[id number] Piperacillin-Tazobactam 3 50 .375 gm In Sodium Chloride 0.9% 100 ml @ 25 mls/hr IVPB Q12HR [facility] Rx #:[id number] Sodium Chloride 0.9% 1, 300 900 000 ml @ 100 mls/hr IV . Q10H [facility] Rx#:[id number] Tube Feeding 240 270 Blood Product 310 Rc Cpda-1 Unit 310 [id number] Other 60 180 Output: Urine 51 14 Other: Voiding Method Indwelling Catheter - Labs CBC & Chem 7: 04/18/18 04:35 04/18/18 04:35 Labs: Abnormal Lab Results - Last 24 Hours (Table) 04/17/18 04/17/18 04/18/18 Range/Units 15:30 23:42 04:35 WBC 14.8 H (3.8-10.6) k/uL RBC 2.53 L (3.80-5.40) m/uL Hgb 7.4 L (11.4-16.0) gm/dL Hct 23.3 L (34.0-46.0) % RDW 18.2 H (11.5-15.5) % Neutrophils # (Manual) 12.10 H (1.3-7.7) k/uL Metamyelocytes # (Man) 0.59 H (0) k/uL Nucleated RBCs 33 H (0-0) /100 WBC PT (9.0-12.0) sec INR (<1.2) ABG pO2 (83-108) mmHg ABG Total CO2 (19-24) mmol/L ABG O2 Saturation (94-97) % Sodium (137-145) mmol/L BUN (7-17) mg/dL Creatinine (0.52-1.04) mg/dL Glucose (74-99) mg/dL POC Glucose (mg/dL) 130 H (75-99) mg/dL Calcium (8.4-10.2) mg/dL Total Bilirubin (0.2-1.3) mg/dL AST (14-36) U/L ALT (9-52) U/L Alkaline Phosphatase (38-126) U/L Total Protein (6.3-8.2) g/dL Albumin (3.5-5.0) g/dL Crossmatch See Detail 04/18/18 04/18/18 04/18/18 Range/Units 04:35 07:13 09:06 WBC (3.8-10.6) k/uL RBC (3.80-5.40) m/uL Hgb (11.4-16.0) gm/dL Hct (34.0-46.0) % RDW (11.5-15.5) % Neutrophils # (Manual) (1.3-7.7) k/uL Metamyelocytes # (Man) (0) k/uL Nucleated RBCs (0-0) /100 WBC PT 13.8 H (9.0-12.0) sec INR 1.5 H (<1.2) ABG pO2 (83-108) mmHg ABG Total CO2 (19-24) mmol/L ABG O2 Saturation (94-97) % Sodium 136 L (137-145) mmol/L BUN 20 H (7-17) mg/dL Creatinine 2.84 H (0.52-1.04) mg/dL Glucose 143 H (74-99) mg/dL POC Glucose (mg/dL) 166 H (75-99) mg/dL Calcium 6.5 L (8.4-10.2) mg/dL Total Bilirubin 4.9 H (0.2-1.3) mg/dL AST 663 H (14-36) U/L ALT 212 H (9-52) U/L Alkaline Phosphatase 392 H (38-126) U/L Total Protein 4.2 L (6.3-8.2) g/dL Albumin 2.2 L (3.5-5.0) g/dL Crossmatch 04/18/18 04/18/18 Range/Units 11:12 11:45 WBC (3.8-10.6) k/uL RBC (3.80-5.40) m/uL Hgb (11.4-16.0) gm/dL Hct (34.0-46.0) % RDW (11.5-15.5) % Neutrophils # (Manual) (1.3-7.7) k/uL Metamyelocytes # (Man) (0) k/uL Nucleated RBCs (0-0) /100 WBC PT (9.0-12.0) sec INR (<1.2) ABG pO2 139 H (83-108) mmHg ABG Total CO2 25 H (19-24) mmol/L ABG O2 Saturation 99.8 H (94-97) % Sodium (137-145) mmol/L BUN (7-17) mg/dL Creatinine (0.52-1.04) mg/dL Glucose (74-99) mg/dL POC Glucose (mg/dL) 161 H (75-99) mg/dL Calcium (8.4-10.2) mg/dL Total Bilirubin (0.2-1.3) mg/dL AST (14-36) U/L ALT (9-52) U/L Alkaline Phosphatase (38-126) U/L Total Protein (6.3-8.2) g/dL Albumin (3.5-5.0) g/dL Crossmatch Assessment and Plan Plan: Patient was reassessed in the evening, due to worsening mental status, liver function test, it is impossible to say if the methadone level is patient's body is high. Patient mentals tatus is multifactorial with sepsis playing a major role. Other factr include chronic methadone intake which has decrease clearance from body, sarcoidosis, multiorgan failure. I will hold all medication that can worsen patient's mental status including gabapendin, cymbalta and methadone. serum methadone levels are requested stat. I am giving a dose of naloxone to see if patient is methadone overdose as patient does have sign of over dose which include resp depression, low BP, drowsiness. Nurse communicated the plan
--- NOTE | 2018-04-18 18:04 | PN ---
PROGRESS NOTE DATE OF SERVICE: 04/18/2018 REASON FOR FOLLOWUP: VRE urinary tract infection. INTERVAL HISTORY: The patient is currently afebrile. Blood pressure has been marginal. Unfortunately, the patient did have an episode of vomiting while the BiPAP was on. That has been discontinued and has been suctioned out. Currently no respiratory distress has been noticed. The patient herself is lethargic and unable to provide any history. However, no abdominal pain or any diarrhea has been noticed. She still has 2 small wounds on the right posterior thigh and they have been draining. PHYSICAL EXAMINATION: Blood pressure is 112/71 with a pulse of 111, temperature 98. She is 100% on BiPAP. General description is a middle-aged female lying in bed in no distress. RESPIRATORY SYSTEM: Unlabored breathing with decreased intensity of breath sounds. No wheeze. HEART: S1, S2. Regular rate and rhythm. ABDOMEN: Soft. No tenderness. LABS: BUN of 20, creatinine 2.84, hemoglobin 7.4, white count slightly elevated at 14.8. DIAGNOSTIC IMPRESSION AND PLAN: 1. Patient with vancomycin-resistant Enterococcus urinary tract infection with possible component of sepsis, currently covered with daptomycin. 2. Patient with bilateral chronic cutaneous candidiasis. Continue local wound care with nystatin powder. 3. Right posterior thigh wounds with bleeding. I would advise Aquacel Silver dressing and dry dressing. 4. Patient did have an episode of vomiting, possible aspiration. That will be monitored closely. If any new fever or any further jump in the white count, Zosyn will be restarted. Overall prognosis remains guarded. MMODL / IJN: [id number] /
--- NOTE | 2018-04-18 18:09 | P.PN ---
Subjective Progress Note Date: 04/18/18 (Critical care time 35 minutes) Principal diagnosis: Generalized anasarca, severe symptomatic hypotension, Acute renal failure, Severe sepsis and septic shock associated with urinary tract infection, pulmonary sarcoidosis, severe morbid obesity, obesity hypoventilation syndrome, sleep disorder breathing and sleep apnea, uncontrolled hyperglycemia and type 2 diabetes mellitus, acute renal failure, chronic pain syndrome, fluctuating hypo- and hypertension 04/18/2018, patient seen and evaluated examined during the rounds she is a status post hemodialysis unable to remove over 2 L only 1.8 L of fluid has been removed with hemodialysis patient has significant degree of hemodynamic fluctuation with the levo fed drip went all the way up to 20 mics however now able to bring it down to 7 mics, patient had episode of emesis of BiPAP mask has been removed patient is now nasal cannula patient has been on tube feed well and Reglan 10 mg IV every 6, due to labile blood pressure patient will require a arterial line, labs and medications reviewed from today August chest x- ray overall is stable with stable right-sided PICC line cardiomegaly is been noted some interstitial edema has been noted, stable NG tube, arterial blood gas performed today reviewed the pH is fairly balanced 7.42 pCO2 37 pO2 139 the severity or acidosis has improved Ammann D and creatinine as down to 20/2.84, hemoglobin is 7.4 white cell count is 14,800 04/17/2018, patient seen eval examined during the rounds clinically patient has been doing slightly better in terms of breathing oxygenation stable but continued to require BiPAP support, currently patient is on IPAP of 14 EPAP of 5 with 35% oxygen, the blood pressure did drop down with map into the low 50s levo fed drip is being started, patient is currently undergoing hemodialysis with intent to remove about 2 L of fluid, has had incomplete just 2 hour hemodialysis yesterday, patient is arousable opens eyes does try to follow simple commands slightly more awake now, once dialysis is completed then patient remains stable will reassess and do a swallowing evaluation prior to Dobbhoff or NG tube placement, laboratory data radiographic studies reviewed medications reviewed, white cell count 11,000, hemoglobin is 7.2, BUN/ creatinine slightly improved 27 /3.58, patient remains on broad-spectrum antibiotics high-dose IV steroids methadone is on hold 04/16/2018, patient seen eval examined during the rounds she is currently on 5 mics of the levo fed, the old using and bleeding from the dialysis catheter site has improved and resolved now he shouldn't has been planned for dialysis by renal services, hemodynamics status overall stable, remains on BiPAP with IPAP 14 EPAP of 5 with 35% oxygen, labs from today reviewed no chest x-rays performed today we'll plan for tomorrow including labs, and I'll of is being planned by GI services 04/15/2018, patient seen eval examined during rounds, patient remain somnolent but arousable, remains on BiPAP currently on IPAP of 14 and EPAP of 5 with 35% oxygen, labs reviewed white cell count is trickling down is 11,000, hemoglobin remained stable 8.8, creatinine continued to go up is 4.19 now, as per discussion with the renal service proceed with hemodialysis vascular surgery has been consulted, and they have placed and dialysis catheter but patient is hypertensive also some bruising and blood-tinged discharge from the catheter site is present advised to hold on dialysis tonight 04/14/2018 Patient has been more lethargic throughout the day, has been on BiPAP 14/6 with 35% oxygen patient is gently being rehydrated patient does have diffuse anasarca however chest x-ray continue to be normal with normal heart size no effusion is seen him a subtle basal atelectasis cannot be excluded, and labs from today reviewed white cell count remains stable hemoglobin is unchanged platelet count stable as well, renal functions remains poor BUN/ creatinine continued to get worse 23 and 3.99 urine output is very minimal, patient has not received her methadone today, recommend to DC methadone, it appears that patient may need dialysis/ultrafiltration for generalized anasarca and worsening renal failure 04/13/2018, patient seen eval reexamined during the rounds care plan discussed the renal service patient's chest x-ray unremarkable oxygen is stable, patient remains on BiPAP as needed along with oxygen patient has not been using the BiPAP machine very regularly have discussed with the family as well as patient importance to using the BiPAP regularly, I have also advised to stop or discontinue methadone as it may be interfering with the mental status for now dose has been cut down to half, labs reviewed medications reviewed 04/12/2018, patient seen eval examined during the rounds clinically patient is doing better in terms of hemodynamics but remains intermittently tachycardic which is not much change from baseline blood pressure has been stable, patient did not use her BiPAP machine last night, has been more somnolent she is lethargic but readily arousable, she does answer in simple words, moving all 4 extremities, she was noted to have snoring as well as apneic events, family is present at bedside and have discussed with them at length about importance of using the BiPAP machine each night and when necessary during the day will put the BiPAP again with a setting of 14/5 with 35% oxygen, potassium is up slightly urine culture is positive for Enterococcus faecium/VRE, patient is on daptomycin and Zosyn, IV fluids are 100 mL an hour, BUN/creatinine slightly up and baseline 04/11/2018, patient seen eval examined in ICU patient the continue to have issues associated aches and pain she remains a poor historian however does describe generalized pain throughout the body, patient has been nauseous as well a computed tomography scan of the abdominal and pelvis is being ordered, her lactic acid has improved with the fluid resuscitation, patient has been on broad-spectrum antibiotics I urine culture is positive for enterococcus Ammann labs from today reviewed sodium is 1:30 and production of 5.3 her BUN/ creatinine is 15 and 2.99, overall sodium remains stable hyperkalemia is present renal functions continued to be marginal liters lactic acid check was 1.9, chest x-ray remains stable PICC line site is stable borderline cardiomegaly , patient is getting broad-spectrum antibiotics with Vanco mycin, daptomycin and Zosyn patient is a getting therapy for the lower extremity cellulitis as well along with local care 47-year-old morbidly obese female who was seen evaluated examined in the ICU this patient has been a resident of [facility], patient has problems associated with chronic renal insufficiency, sarcoidosis severely morbidly obese was found to have blood pressure only 60s systolic at the [facility] EMS was notified it appears that blood pressure has been extremely fluctuating it was noted to be 90 by EMS however subsequently was in 150 patient was tachypneic and tachycardic as well no chest pain was present overall patient is a poor historian, patient was eventually admitted into the hospital from the emergency department Robert patient underwent a VQ scan with indeterminate findings, CT angiogram be performed due to elevated creatinine Robert patient has been using BiPAP off and on with a IPAP of 14 and EPAP of 5 and 35% oxygen, patient has been comfortable now she has a low urine output she is getting a fluid challenge of 500 mL crystalloid due to elevated lactic acid followed by 100 mL an hour patient is also on Solu-Cortef which is being switched to Solu-Medrol, currently patient is on bronchodilators and continuation of home medications, heparin for DVT prophylaxis, due to chronic hypertension patient is on midodrine along with broad-spectrum antibiotics along with Zosyn and vancomycin, urine is positive for group D enterococcus, other significant labs were noted to have a lactic acid of 5.8 came down to 3.2 , BUN/creatinine remains stable 40 and 2.93 much chest x-ray revealed cardiomegaly small left-sided pleural effusion with subsegmental atelectasis, patient was transferred to ICU for hypotension and low urine output and elevated lactic acid where she was seen evaluated examined Objective - Vital Signs Vital signs: Vital Signs Temp 97.7 F 04/18/18 12:00 Pulse 111 H 04/18/18 15:05 Resp 14 04/18/18 15:05 BP 87/28 04/18/18 15:05 Pulse Ox 100 04/18/18 15:05 Intake & Output 04/17/18 04/18/18 04/18/18 18:59 06:59 18:59 Intake Total 7651.548 9325.132 1479.476 Output Total 1850 51 14 Balance -196.073 8779.132 1465.476 Weight 186.426 kg 182.7 kg Intake: IV 255 955 Dextrose 5% in Water 1, 200 000 ml @ 100 mls/hr IV . Q11H [facility] with Sodium Bicarb (1 Meq/ml) 100 ml Rx#:[id number] Piperacillin-Tazobactam 3 50 .375 gm In Dextrose/Water 1 50ml.bag @ 12.5 mls/hr IVPB Q12HR [facility] Rx#: [id number] ns 55 905 Intake, IV Titration 960.772 293.980 4651.476 Amount Albumin Human 25% 50 ml 50 In Empty Bag 1 bag @ 100 mls/hr IVPB Q12H [facility] Rx#: [id number] Norepinephrine 16 mg In 10.772 1.132 29.476 Sodium Chloride 0.9% 250 ml @ Titrate IV .Q0M [facility] Rx#:[id number] Piperacillin-Tazobactam 3 50 .375 gm In Dextrose/Water 1 50ml.bag @ 12.5 mls/hr IVPB Q12HR [facility] Rx#: [id number] Piperacillin-Tazobactam 3 50 .375 gm In Sodium Chloride 0.9% 100 ml @ 25 mls/hr IVPB Q12HR [facility] Rx #:[id number] Sodium Chloride 0.9% 1, 900 300 900 000 ml @ 100 mls/hr IV . Q10H [facility] Rx#:[id number] Tube Feeding 30 240 270 Blood Product 310 310 Rc Cpda-1 Unit 0 310 [id number] Other 30 60 180 Output: Urine 51 14 Other 1850 Other: Voiding Method Indwelling Catheter Indwelling Catheter - Exam Gen: This is a morbidly obese 47-year-old Afro [place] female. She is in bed and appears to be in no acute distress, patient leaning backwards awake no obvious distress HEENT: Head is atraumatic, normocephalic. Pupils equal, round. Sclerae is anicteric. Hearing grossly normal. NECK: Supple. No JVD. No lymphadenopathy. No thyromegaly. LUNGS: Diminished bilaterally. Clear to auscultation. No wheezes or rhonchi. No intercostal retractions. Has been on BiPAP support continuously HEART: Regular rate and rhythm. No murmur. ABDOMEN: Morbidly obese. Soft. Bowel sounds are present. No masses. No tenderness. EXTREMITIES: 2+ pedal edema. Chronic skin inflammatory changes early cellulitis cannot be excluded No calf tenderness. No redness. NEUROLOGICAL: Patient is mostly somnolent but arousable on physical and verbal stimuli awake, alert and oriented x2. Generalized weakness. - Labs CBC & Chem 7: 04/18/18 04:35 04/18/18 04:35 Labs: Abnormal Lab Results - Last 24 Hours (Table) 04/17/18 04/17/18 04/17/18 Range/Units 15:30 18:22 23:42 WBC (3.8-10.6) k/uL RBC (3.80-5.40) m/uL Hgb (11.4-16.0) gm/dL Hct (34.0-46.0) % RDW (11.5-15.5) % Neutrophils # (Manual) (1.3-7.7) k/uL Metamyelocytes # (Man) (0) k/uL Nucleated RBCs (0-0) /100 WBC PT (9.0-12.0) sec INR (<1.2) ABG pO2 (83-108) mmHg ABG Total CO2 (19-24) mmol/L ABG O2 Saturation (94-97) % Sodium (137-145) mmol/L BUN (7-17) mg/dL Creatinine (0.52-1.04) mg/dL Glucose (74-99) mg/dL POC Glucose (mg/dL) 135 H 130 H (75-99) mg/dL Calcium (8.4-10.2) mg/dL Total Bilirubin (0.2-1.3) mg/dL AST (14-36) U/L ALT (9-52) U/L Alkaline Phosphatase (38-126) U/L Total Protein (6.3-8.2) g/dL Albumin (3.5-5.0) g/dL Crossmatch See Detail 04/18/18 04/18/18 04/18/18 Range/Units 04:35 04:35 07:13 WBC 14.8 H (3.8-10.6) k/uL RBC 2.53 L (3.80-5.40) m/uL Hgb 7.4 L (11.4-16.0) gm/dL Hct 23.3 L (34.0-46.0) % RDW 18.2 H (11.5-15.5) % Neutrophils # (Manual) 12.10 H (1.3-7.7) k/uL Metamyelocytes # (Man) 0.59 H (0) k/uL Nucleated RBCs 33 H (0-0) /100 WBC PT (9.0-12.0) sec INR (<1.2) ABG pO2 (83-108) mmHg ABG Total CO2 (19-24) mmol/L ABG O2 Saturation (94-97) % Sodium 136 L (137-145) mmol/L BUN 20 H (7-17) mg/dL Creatinine 2.84 H (0.52-1.04) mg/dL Glucose 143 H (74-99) mg/dL POC Glucose (mg/dL) 166 H (75-99) mg/dL Calcium 6.5 L (8.4-10.2) mg/dL Total Bilirubin 4.9 H (0.2-1.3) mg/dL AST 663 H (14-36) U/L ALT 212 H (9-52) U/L Alkaline Phosphatase 392 H (38-126) U/L Total Protein 4.2 L (6.3-8.2) g/dL Albumin 2.2 L (3.5-5.0) g/dL Crossmatch 04/18/18 04/18/18 04/18/18 Range/Units 09:06 11:12 11:45 WBC (3.8-10.6) k/uL RBC (3.80-5.40) m/uL Hgb (11.4-16.0) gm/dL Hct (34.0-46.0) % RDW (11.5-15.5) % Neutrophils # (Manual) (1.3-7.7) k/uL Metamyelocytes # (Man) (0) k/uL Nucleated RBCs (0-0) /100 WBC PT 13.8 H (9.0-12.0) sec INR 1.5 H (<1.2) ABG pO2 139 H (83-108) mmHg ABG Total CO2 25 H (19-24) mmol/L ABG O2 Saturation 99.8 H (94-97) % Sodium (137-145) mmol/L BUN (7-17) mg/dL Creatinine (0.52-1.04) mg/dL Glucose (74-99) mg/dL POC Glucose (mg/dL) 161 H (75-99) mg/dL Calcium (8.4-10.2) mg/dL Total Bilirubin (0.2-1.3) mg/dL AST (14-36) U/L ALT (9-52) U/L Alkaline Phosphatase (38-126) U/L Total Protein (6.3-8.2) g/dL Albumin (3.5-5.0) g/dL Crossmatch Assessment and Plan Assessment: Labile blood pressure with alternating hyper tension followed by hypertension will need a line for better blood pressure monitoring Persistent somnolence and lethargy we'll continue BiPAP, however consider nasal cannula as emesis occurred, Acute on chronic renal failure on hemodialysis Progressive worsening renal function and generalized anasarca proceed with hemodialysis as per renal services For ongoing hypertension will initiate patient on levo fed drip a.m. for map about 65-70 so adequate dialysis can be performed Acute hypoxic and hypercapnic respiratory failure Severe sepsis and septic shock related to enterococcus urinary tract infection with some complaint component from cellulitis of the both lower extremity Bilateral lower extremity cellulitis Elevated lactic acid/metabolic acidosis multifactorial associated with acute on chronic renal failure, urinary tract infection have improved though her and normalized Pulmonary sarcoidosis with possible left lower lobe pneumonia Somnolence and lethargy due to multifactorial processes including methadone currently on hold Small left-sided pleural effusion Dehydration associated with intravascular volume depletion patient is undergoing intermittent crystalloid challenge Severe morbid obesity and obstructive sleep apnea Plan: Reglan IV labs and x-ray tomorrow Keep patient in ICU Arterial line or better blood pressure monitoring Dialysis as per renal service DC methadone Dobbhoff tube pending if mental status remains marginal Continue broad-spectrum antibiotics DVT and peptic ulcer disease prophylaxis IV steroids, we'll continue same dose for now we'll start tapering in next 24 hours Reviewed labs and radiographic studies ordered for tomorrow, further recommendations pending plan of care as per clinical response of the patient Further recommendations pending plan of care as per clinical response of patient
--- NOTE | 2018-04-18 18:44 | P.PCN ---
Date of Procedure: 04/18/18 Preoperative Diagnosis: Labile blood pressure, severe hypertension, episodic hypertension, severe sepsis and septic shock Postoperative Diagnosis: As above Procedure(s) Performed: Right radial single-lumen arterial line placement Anesthesia: local Surgeon: Tony Ali Condition: critical Disposition: ICU Indications for Procedure: As above Operative Findings: As below Description of Procedure: Using a modified Seldinger technique single-lumen catheter inserted into right radial artery without any significant difficulty ultrasound was utilized to exactly locate the radial artery due to break size of the wrist , patient tolerate procedure well no complication noted security #3 silk good waveform obtained
[2018-04-18] MEDS ORDERED: NALOXONE 0.4 MG/ML 1 ML VIAL IV STA (18:53)
[2018-04-18 19:20] LABS: Glucose,Whole Blood 191 mg/dL (75-99)
[2018-04-18] MEDS: PIPERACILLIN-TAZOBACTAM 3.375 GM in SODIUM CHLORIDE 0.9% 100 ML IVPB SCH (19:34)
[2018-04-18] MEDS ORDERED: LABETALOL 5 MG/ML VIAL MDV IVP PRN (19:59)
[2018-04-18] MEDS: cloNIDine 0.1 MG/24HR PATCH TRANSDERM SCH (20:19)
[2018-04-18] MEDS: CLOTRIMAZOLE/BETAMETH 1-0.05% CREAM 45 GM TUBE TOPICAL SCH (20:34)
[2018-04-18] MEDS: NALOXONE 4 MG in SODIUM CHLORIDE 0.9% 100 ML IV SCH (20:53)
[2018-04-18] MEDS: METOCLOPRAMIDE 5 MG/ML 2 ML VIAL IVP SCH ×2 (21:00→23:08)
[2018-04-19] MEDS: PIPERACILLIN-TAZOBACTAM 3.375 GM in SODIUM CHLORIDE 0.9% 100 ML IVPB SCH ×3 (01:00→15:30)
[2018-04-19 02:10] LABS: ABG HCO3 24 mmol/L (21-25); ABG PCO2 37 mmHg (35-45); ABG PH 7.42 (7.35-7.45); ABG PO2 114 mmHg (83-108); ABG TCO2 25 mmol/L (19-24)
[2018-04-19 02:11] LABS: ABG Base Excess -0.5 mmol/L
[2018-04-19] MEDS: SODIUM CHLORIDE 0.9% 1,000 ML IV SCH ×3 (02:21→23:32)
[2018-04-19] MEDS: ALBUMIN HUMAN 25% 50 ML in EMPTY BAG 1 BAG IVPB SCH ×4 (02:23→18:39)
[2018-04-19] MEDS: INSULIN ASPART 100 UNIT/ML 1 ML 10 ML VIAL SQ SCH ×5 (02:34→21:06)
[2018-04-19 02:43] LABS: Glucose,Whole Blood 86 mg/dL (75-99)
[2018-04-19] MEDS: NALOXONE 4 MG in SODIUM CHLORIDE 0.9% 100 ML IV SCH ×3 (02:49→18:13)
[2018-04-19 03:02] LABS: ABG HCO3 15 mmol/L (21-25); ABG PCO2 20 mmHg (35-45); ABG PH 7.48 (7.35-7.45); ABG PO2 182 mmHg (83-108); ABG TCO2 15 mmol/L (19-24)
[2018-04-19 04:45] LABS: INR 1.6 (<1.2); Partial Thromboplastin Time 31.4 sec (22.0-30.0); Prothrombin Time 14.5 sec (9.0-12.0)
[2018-04-19 05:34] LABS: Albumin 2.3 g/dL (3.5-5.0); Calcium 6.6 mg/dL (8.4-10.2); Phosphorus 3.2 mg/dL (2.5-4.5); Total Bilirubin 5.3 mg/dL (0.2-1.3); Total Protein 3.9 g/dL (6.3-8.2)
[2018-04-19 06:43] LABS: Glucose,Whole Blood 66 mg/dL (75-99)
[2018-04-19] MEDS: methylPREDNISolone SOD SUCCI 125 MG/2 ML VIAL IV SCH ×3 (07:12→18:14)
[2018-04-19] MEDS: METOCLOPRAMIDE 5 MG/ML 2 ML VIAL IVP SCH ×3 (07:12→18:14)
[2018-04-19] MEDS: CALCIUM ACETATE 667 MG CAP PO SCH ×3 (07:13→18:14)
[2018-04-19 07:25] LABS: Anisocytosis Slight; Hypochromasia Moderate; MCH 30.4 pg (25.0-35.0); MCHC 32.3 g/dL (31.0-37.0); MCV 94.1 fL (80.0-100.0); Macrocytosis Slight; Mean Platelet Volume 9.5; Platelet Count 127 k/uL (150-450); Poikilocytosis Slight; RBC 1.95 m/uL (3.80-5.40); RDW 18.8 % (11.5-15.5)
[2018-04-19 07:31] LABS: HGB 5.9 gm/dL (11.4-16.0)
[2018-04-19 07:32] LABS: HCT 18.4 % (34.0-46.0)
[2018-04-19 07:56] LABS: Glucose,Whole Blood 83 mg/dL (75-99)
[2018-04-19 08:23] LABS: ABG Base Excess -15.5 mmol/L; ABG HCO3 12 mmol/L (21-25); ABG Oxygen Saturation 99.2 % (94-97); ABG PCO2 26 mmHg (35-45); ABG PH 7.26 (7.35-7.45); ABG PO2 169 mmHg (83-108); ABG TCO2 12 mmol/L (19-24)
[2018-04-19] MEDS ORDERED: LORazepam 2 MG/ML INJ IV ONE (08:23)
[2018-04-19] MEDS ORDERED: DEXTROSE 5% IN WATER 1,000 ML with SODIUM BICARB (1 MEQ/ML) 150 ML IV SCH (08:30)
[2018-04-19 08:33] LABS: Band Neutrophils % 4 %; Metamyelocytes % 2 %; Neutrophils % (M) 74 %; Nucleated Red Blood Cells 19 /100 WBC (0-0); Total Cells Counted 200
[2018-04-19 08:34] LABS: Lymphocytes # (M) 3.92 k/uL (1.0-4.8); Metamyelocytes # (M) 0.44 k/uL (0); Monocytes # (M) 0.65 k/uL (0-1.0); WBC 21.8 k/uL (3.8-10.6)
[2018-04-19 08:36] LABS: Polychromasia Present; Target Cells Present
[2018-04-19] MEDS: cloNIDine 0.1 MG/24HR PATCH TRANSDERM SCH (09:12)
[2018-04-19] MEDS: BUDESONIDE 0.5 MG/2 ML NEBU INHALATION SCH ×2 (09:40→20:39)
[2018-04-19] MEDS: ALBUTEROL NEBULIZED 2.5 MG/3 ML INHALATION SCH ×3 (09:40→20:37)
--- NOTE | 2018-04-19 10:01 | XR ---
EXAMINATION TYPE: XR chest 1V portable DATE OF EXAM: 04/19/2018 COMPARISON: 04/18/2018 HISTORY: Shortness of breath TECHNIQUE: Single frontal view of the chest is obtained. FINDINGS: PICC line is seen with the tip overlying the subclavian SVC junction. Respiratory motion l imits the exam. Subsegmental changes at the left lung base noted. Biapical pleural effusion. No overt failure. Heart size stable. NG tube stable. IMPRESSION: 1. Left basilar atelectasis or early infiltrate.
--- NOTE | 2018-04-19 10:03 | P.PN ---
Subjective Progress Note Date: 04/19/18 Principal diagnosis: Sepsis shock UTI history pulmonary sarcoidosis 47-year-old female admitted with altered mental status acute kidney injury elevated liver enzymes history of pulmonary sarcoidosis status post hemodialysis after placement of dialysis catheter Tuesday. Patient is lethargic. Hemoglobin decreased to 5.9. 2 units PRBS infused nursing reports no overt bleeding. Multiple wounds on body nursing reports SS drainage. Brown BM yesterday. Dialysis discontinued secondary to hypotension receiving IV pressors. INR 1.6. Platelet 127. NG tube; receiving tube feeds and medications via NG tube. Total bilirubin increased 5.3. AST 829. ALT 262. AP 420. Objective - Vital Signs Vital signs: Vital Signs Temp 98.7 F 04/19/18 04:00 Pulse 89 04/19/18 06:30 Resp 38 H 04/19/18 06:30 BP 144/112 04/18/18 17:40 Pulse Ox 100 04/19/18 06:30 Intake & Output 04/18/18 04/19/18 04/19/18 18:59 06:59 18:59 Intake Total 2697.116 1531 151.778 Output Total 114 17 Balance 6777.896 3000 151.778 Weight 184.7 kg Intake: IV 1386 DAPTOmycin 600 mg In 50 Sodium Chloride 0.9% 50 ml @ 100 mls/hr IVPB Q48H [facility] Rx#:[id number] Piperacillin-Tazobactam 3 100 .375 gm In Dextrose/Water 1 50ml.bag @ 12.5 mls/hr IVPB Q12HR [facility] Rx#: [id number] ns 1200 pressure bag 36 Intake, IV Titration 1329.476 289 151.778 Amount Albumin Human 25% 50 ml 50 In Empty Bag 1 bag @ 100 mls/hr IVPB Q12H [facility] Rx#: [id number] Naloxone 4 mg In Sodium 89 Chloride 0.9% 100 ml @ 0. 6 MG/HR 15 mls/hr IV . Q6H40M [facility] Rx#:[id number] Norepinephrine 16 mg In 29.476 151.778 Sodium Chloride 0.9% 250 ml @ Titrate IV .Q0M [facility] Rx#:[id number] Piperacillin-Tazobactam 3 50 .375 gm In Sodium Chloride 0.9% 100 ml @ 25 mls/hr IVPB Q12HR [facility] Rx #:[id number] Piperacillin-Tazobactam 3 100 .375 gm In Sodium Chloride 0.9% 100 ml @ 25 mls/hr IVPB Q8HR [facility] Rx# :[id number] Sodium Chloride 0.9% 1, 1200 100 000 ml @ 100 mls/hr IV . Q10H [facility] Rx#:[id number] Tube Feeding 360 Other 210 30 Output: Urine 14 17 Oral Regurgitation 100 Other: Voiding Method Indwelling Catheter Indwelling Catheter # Bowel Movements 1 1 ABP, PAP, CO, CI - Last Documented Arterial Blood Pressure 108/58 - Exam General appearance: The patient is obtunded, not conversive; BiPAP. HET: Head is normocephalic and atraumatic. Pupils are equal and reactive. Oropharynx is clear without lesions.NG tube with feeds. Neck: Supple without lymphadenopathy. Trachea midline. Heart: S1 S2. Regular rate and rhythm. Lungs: Bipap. Diminished throughout. Increased respiratory effort. Abdomen: Morbidly obese. Soft, nontender, nondistended with bowel sounds. No peritoneal signs. No palpable organomegaly or masses. Extremities: Right groin dialysis catheter lower extremity dressings. - Labs CBC & Chem 7: 04/20/18 04:35 04/20/18 04:35 Labs: Abnormal Lab Results - Last 24 Hours (Table) 04/17/18 04/18/18 04/18/18 Range/Units 15:30 09:06 11:12 WBC (3.8-10.6) k/uL RBC (3.80-5.40) m/uL Hgb (11.4-16.0) gm/dL Hct (34.0-46.0) % RDW (11.5-15.5) % Plt Count (150-450) k/uL Neutrophils # (Manual) (1.3-7.7) k/uL Metamyelocytes # (Man) (0) k/uL Nucleated RBCs (0-0) /100 WBC PT 13.8 H (9.0-12.0) sec INR 1.5 H (<1.2) APTT (22.0-30.0) sec ABG pH (7.35-7.45) ABG pCO2 (35-45) mmHg ABG pO2 139 H (83-108) mmHg ABG HCO3 (21-25) mmol/L ABG Total CO2 25 H (19-24) mmol/L ABG O2 Saturation 99.8 H (94-97) % Carbon Dioxide (22-30) mmol/L Creatinine (0.52-1.04) mg/dL POC Glucose (mg/dL) (75-99) mg/dL Calcium (8.4-10.2) mg/dL Total Bilirubin (0.2-1.3) mg/dL AST (14-36) U/L ALT (9-52) U/L Alkaline Phosphatase (38-126) U/L Total Protein (6.3-8.2) g/dL Albumin (3.5-5.0) g/dL Crossmatch See Detail 04/18/18 04/18/18 04/18/18 Range/Units 11:45 18:50 19:07 WBC (3.8-10.6) k/uL RBC (3.80-5.40) m/uL Hgb (11.4-16.0) gm/dL Hct (34.0-46.0) % RDW (11.5-15.5) % Plt Count (150-450) k/uL Neutrophils # (Manual) (1.3-7.7) k/uL Metamyelocytes # (Man) (0) k/uL Nucleated RBCs (0-0) /100 WBC PT (9.0-12.0) sec INR (<1.2) APTT (22.0-30.0) sec ABG pH (7.35-7.45) ABG pCO2 (35-45) mmHg ABG pO2 114 H (83-108) mmHg ABG HCO3 (21-25) mmol/L ABG Total CO2 25 H (19-24) mmol/L ABG O2 Saturation 100.0 H (94-97) % Carbon Dioxide (22-30) mmol/L Creatinine (0.52-1.04) mg/dL POC Glucose (mg/dL) 161 H 191 H (75-99) mg/dL Calcium (8.4-10.2) mg/dL Total Bilirubin (0.2-1.3) mg/dL AST (14-36) U/L ALT (9-52) U/L Alkaline Phosphatase (38-126) U/L Total Protein (6.3-8.2) g/dL Albumin (3.5-5.0) g/dL Crossmatch 04/19/18 04/19/18 04/19/18 Range/Units 02:58 04:19 04:19 WBC (3.8-10.6) k/uL RBC (3.80-5.40) m/uL Hgb (11.4-16.0) gm/dL Hct (34.0-46.0) % RDW (11.5-15.5) % Plt Count (150-450) k/uL Neutrophils # (Manual) (1.3-7.7) k/uL Metamyelocytes # (Man) (0) k/uL Nucleated RBCs (0-0) /100 WBC PT 14.5 H (9.0-12.0) sec INR 1.6 H (<1.2) APTT 31.4 H (22.0-30.0) sec ABG pH 7.48 H (7.35-7.45) ABG pCO2 20 L (35-45) mmHg ABG pO2 182 H (83-108) mmHg ABG HCO3 15 L (21-25) mmol/L ABG Total CO2 15 L (19-24) mmol/L ABG O2 Saturation 100.0 H (94-97) % Carbon Dioxide 12 L (22-30) mmol/L Creatinine 2.39 H (0.52-1.04) mg/dL POC Glucose (mg/dL) (75-99) mg/dL Calcium 6.6 L (8.4-10.2) mg/dL Total Bilirubin 5.3 H (0.2-1.3) mg/dL AST 829 H (14-36) U/L ALT 262 H (9-52) U/L Alkaline Phosphatase 420 H (38-126) U/L Total Protein 3.9 L (6.3-8.2) g/dL Albumin 2.3 L (3.5-5.0) g/dL Crossmatch 04/19/18 04/19/18 04/19/18 Range/Units 05:51 06:31 08:19 WBC 21.8 H (3.8-10.6) k/uL RBC 1.95 L (3.80-5.40) m/uL Hgb 5.9 L* D (11.4-16.0) gm/dL Hct 18.4 L* (34.0-46.0) % RDW 18.8 H (11.5-15.5) % Plt Count 127 L (150-450) k/uL Neutrophils # (Manual) 17.00 H (1.3-7.7) k/uL Metamyelocytes # (Man) 0.44 H (0) k/uL Nucleated RBCs 19 H (0-0) /100 WBC PT (9.0-12.0) sec INR (<1.2) APTT (22.0-30.0) sec ABG pH 7.26 L (7.35-7.45) ABG pCO2 26 L (35-45) mmHg ABG pO2 169 H (83-108) mmHg ABG HCO3 12 L (21-25) mmol/L ABG Total CO2 12 L (19-24) mmol/L ABG O2 Saturation 99.2 H (94-97) % Carbon Dioxide (22-30) mmol/L Creatinine (0.52-1.04) mg/dL POC Glucose (mg/dL) 66 L (75-99) mg/dL Calcium (8.4-10.2) mg/dL Total Bilirubin (0.2-1.3) mg/dL AST (14-36) U/L ALT (9-52) U/L Alkaline Phosphatase (38-126) U/L Total Protein (6.3-8.2) g/dL Albumin (3.5-5.0) g/dL Crossmatch Assessment and Plan (1) Elevated liver enzymes Narrative/Plan: 47-year-old female admitted with a BOONE HTN sepsis VRE UTI hypotension with underlying pulmonary sarcoidosis elevated liver enzymes. Etiology of acute elevated liver enzymes is multifactorial suspect a component of sepsis shock liver from hypotensive events leading up to hospitalization as well as possible medication induced. Liver function tests were within normal limits prior to admission but are worsening daily. She has underlying hepatic steatosis, diabetes mellitus, morbid obesity, and is in the process of undergoing neurologic evaluation for possible sarcoidosis of the brain. Current Visit: Yes Status: Acute Code(s): R74.8 - ABNORMAL LEVELS OF OTHER SERUM ENZYMES SNOMED Code(s): 783854066 (2) Anemia Narrative/Plan: Multifactorial no obvious signs of GI bleeding. Current Visit: Yes Status: Acute Code(s): D64.9 - ANEMIA, UNSPECIFIED SNOMED Code(s): 127538222 Plan: 1. Liver function tests are worsening PT/INR daily; consideration for tertiary care center transfer if PT/INR worsens. Serologic workup for chronic liver disease processing. Avoid hepatotoxic medications. Receiving pressor support. Continue with supportive measures. Overall condition is guarded. Assessment and plan a care discussed with Dr. Briceño
--- NOTE | 2018-04-19 10:05 | P.PN ---
Subjective Progress Note Date: 04/19/18 Interval history: 04/18/18:Patient is being seen examined and evaluated today on rounds. She continues to be in the ICU. She continues on the BiPAP and is tolerating that well. Currently she is undergoing dialysis and potentially having 2 L of fluid to be pulled off. She has been on and off of vasopressors in the last 24 hours. Currently the patient was put back on Levophed. She currently is on tube feeds and is tolerating that well. She continues on IV steroids. She is afebrile, no further complaints. Her labs from this morning are reviewed. Her AST has increased to 663, a LT increased to 212, her bilirubin increased to 4.9 , BUN is 20, creatinine is 2.84, hemoglobin is stable at 7.4, daily after meals 14.8. Her care team follows her closely in collaboration including internal medicine, nephrology, pulmonary, infectious disease, intensivists, GI physician , cardiology, vascular surgery, and recently added pain management. 04/19/18: Patient is being seen examined and evaluated on rounds while in the intensive care unit today. PE patient was put on a Narcan drip yesterday. According to the nurses staff was slightly more awake after that was initiated. She continues on Levophed at 5 mics. The patient will be starting a bicarb drip and will be getting 2 units of packed red blood cells. Her labs this morning did reveal a hemoglobin of 5.9 and yesterday was 7.4. She also had ABGs from this morning and it revealed a pH of 7.26, pCO2 26, pO2 169 and HCO3 of 12. Dialysis was attempted this morning however the patient became extremely hypotensive and the fluid had to be given back to her. Currently she is in a positive fluid balance. She has had minimal scant urine output. She has been tolerating her tube feedings. She continues on BiPAP, is tachypnea. She did under go an arterial line placement yesterday. Chest x-ray from this morning is currently pending. LFT continue to climb, AST increased to 829 a ALT 262, alkaline phosphatase 420, albumin is 2.3 receiving albumin infusions. Objective - Vital Signs Vital signs: Vital Signs Temp 98.7 F 04/19/18 04:00 Pulse 93 04/19/18 09:40 Resp 38 H 04/19/18 06:30 BP 144/112 04/18/18 17:40 Pulse Ox 100 04/19/18 06:30 Intake & Output 04/18/18 04/19/18 04/19/18 18:59 06:59 18:59 Intake Total 3587.779 0235 151.778 Output Total 114 17 Balance 4799.532 6985 151.778 Weight 184.7 kg Intake: IV 1386 DAPTOmycin 600 mg In 50 Sodium Chloride 0.9% 50 ml @ 100 mls/hr IVPB Q48H [facility] Rx#:[id number] Piperacillin-Tazobactam 3 100 .375 gm In Dextrose/Water 1 50ml.bag @ 12.5 mls/hr IVPB Q12HR [facility] Rx#: [id number] ns 1200 pressure bag 36 Intake, IV Titration 1329.476 289 151.778 Amount Albumin Human 25% 50 ml 50 In Empty Bag 1 bag @ 100 mls/hr IVPB Q12H [facility] Rx#: [id number] Naloxone 4 mg In Sodium 89 Chloride 0.9% 100 ml @ 0. 6 MG/HR 15 mls/hr IV . Q6H40M [facility] Rx#:[id number] Norepinephrine 16 mg In 29.476 151.778 Sodium Chloride 0.9% 250 ml @ Titrate IV .Q0M [facility] Rx#:[id number] Piperacillin-Tazobactam 3 50 .375 gm In Sodium Chloride 0.9% 100 ml @ 25 mls/hr IVPB Q12HR [facility] Rx #:[id number] Piperacillin-Tazobactam 3 100 .375 gm In Sodium Chloride 0.9% 100 ml @ 25 mls/hr IVPB Q8HR [facility] Rx# :[id number] Sodium Chloride 0.9% 1, 1200 100 000 ml @ 100 mls/hr IV . Q10H [facility] Rx#:[id number] Tube Feeding 360 Other 210 30 Output: Urine 14 17 Oral Regurgitation 100 Other: Voiding Method Indwelling Catheter Indwelling Catheter # Bowel Movements 1 1 ABP, PAP, CO, CI - Last Documented Arterial Blood Pressure 108/58 - Exam GENERAL EXAM: Alert, tired, in no apparent distress. Morbidly obese HEAD: Normocephalic. EYES: Normal reaction of pupils, equal size. NOSE: Clear with pink turbinates. THROAT: No erythema or exudates. NECK: No masses, no JVD. CHEST: No chest wall deformity. LUNGS: Decreased breath sounds throughout, on BiPAP CVS: S1 and S2 normal with no audible mumurs, regular rhythm. ABDOMEN: No hepatosplenomegaly, normal bowel sounds, no guarding or rigidity. EXTREMITIES: +2 bilateral lower extremity edema noted, pedal pulses palpable. Bilateral Gurwinder wraps CENTRAL NERVOUS SYSTEM: No focal deficits, tone is normal in all 4 extremities. - Labs CBC & Chem 7: 04/19/18 05:51 04/19/18 04:19 Labs: Abnormal Lab Results - Last 24 Hours (Table) 04/17/18 04/18/18 04/18/18 Range/Units 15:30 11:12 11:45 WBC (3.8-10.6) k/uL RBC (3.80-5.40) m/uL Hgb (11.4-16.0) gm/dL Hct (34.0-46.0) % RDW (11.5-15.5) % Plt Count (150-450) k/uL Neutrophils # (Manual) (1.3-7.7) k/uL Metamyelocytes # (Man) (0) k/uL Nucleated RBCs (0-0) /100 WBC PT (9.0-12.0) sec INR (<1.2) APTT (22.0-30.0) sec ABG pH (7.35-7.45) ABG pCO2 (35-45) mmHg ABG pO2 139 H (83-108) mmHg ABG HCO3 (21-25) mmol/L ABG Total CO2 25 H (19-24) mmol/L ABG O2 Saturation 99.8 H (94-97) % Carbon Dioxide (22-30) mmol/L Creatinine (0.52-1.04) mg/dL POC Glucose (mg/dL) 161 H (75-99) mg/dL Calcium (8.4-10.2) mg/dL Total Bilirubin (0.2-1.3) mg/dL AST (14-36) U/L ALT (9-52) U/L Alkaline Phosphatase (38-126) U/L Total Protein (6.3-8.2) g/dL Albumin (3.5-5.0) g/dL Crossmatch See Detail 04/18/18 04/18/18 04/19/18 Range/Units 18:50 19:07 02:58 WBC (3.8-10.6) k/uL RBC (3.80-5.40) m/uL Hgb (11.4-16.0) gm/dL Hct (34.0-46.0) % RDW (11.5-15.5) % Plt Count (150-450) k/uL Neutrophils # (Manual) (1.3-7.7) k/uL Metamyelocytes # (Man) (0) k/uL Nucleated RBCs (0-0) /100 WBC PT (9.0-12.0) sec INR (<1.2) APTT (22.0-30.0) sec ABG pH 7.48 H (7.35-7.45) ABG pCO2 20 L (35-45) mmHg ABG pO2 114 H 182 H (83-108) mmHg ABG HCO3 15 L (21-25) mmol/L ABG Total CO2 25 H 15 L (19-24) mmol/L ABG O2 Saturation 100.0 H 100.0 H (94-97) % Carbon Dioxide (22-30) mmol/L Creatinine (0.52-1.04) mg/dL POC Glucose (mg/dL) 191 H (75-99) mg/dL Calcium (8.4-10.2) mg/dL Total Bilirubin (0.2-1.3) mg/dL AST (14-36) U/L ALT (9-52) U/L Alkaline Phosphatase (38-126) U/L Total Protein (6.3-8.2) g/dL Albumin (3.5-5.0) g/dL Crossmatch 04/19/18 04/19/18 04/19/18 Range/Units 04:19 04:19 05:51 WBC 21.8 H (3.8-10.6) k/uL RBC 1.95 L (3.80-5.40) m/uL Hgb 5.9 L* D (11.4-16.0) gm/dL Hct 18.4 L* (34.0-46.0) % RDW 18.8 H (11.5-15.5) % Plt Count 127 L (150-450) k/uL Neutrophils # (Manual) 17.00 H (1.3-7.7) k/uL Metamyelocytes # (Man) 0.44 H (0) k/uL Nucleated RBCs 19 H (0-0) /100 WBC PT 14.5 H (9.0-12.0) sec INR 1.6 H (<1.2) APTT 31.4 H (22.0-30.0) sec ABG pH (7.35-7.45) ABG pCO2 (35-45) mmHg ABG pO2 (83-108) mmHg ABG HCO3 (21-25) mmol/L ABG Total CO2 (19-24) mmol/L ABG O2 Saturation (94-97) % Carbon Dioxide 12 L (22-30) mmol/L Creatinine 2.39 H (0.52-1.04) mg/dL POC Glucose (mg/dL) (75-99) mg/dL Calcium 6.6 L (8.4-10.2) mg/dL Total Bilirubin 5.3 H (0.2-1.3) mg/dL AST 829 H (14-36) U/L ALT 262 H (9-52) U/L Alkaline Phosphatase 420 H (38-126) U/L Total Protein 3.9 L (6.3-8.2) g/dL Albumin 2.3 L (3.5-5.0) g/dL Crossmatch 04/19/18 04/19/18 Range/Units 06:31 08:19 WBC (3.8-10.6) k/uL RBC (3.80-5.40) m/uL Hgb (11.4-16.0) gm/dL Hct (34.0-46.0) % RDW (11.5-15.5) % Plt Count (150-450) k/uL Neutrophils # (Manual) (1.3-7.7) k/uL Metamyelocytes # (Man) (0) k/uL Nucleated RBCs (0-0) /100 WBC PT (9.0-12.0) sec INR (<1.2) APTT (22.0-30.0) sec ABG pH 7.26 L (7.35-7.45) ABG pCO2 26 L (35-45) mmHg ABG pO2 169 H (83-108) mmHg ABG HCO3 12 L (21-25) mmol/L ABG Total CO2 12 L (19-24) mmol/L ABG O2 Saturation 99.2 H (94-97) % Carbon Dioxide (22-30) mmol/L Creatinine (0.52-1.04) mg/dL POC Glucose (mg/dL) 66 L (75-99) mg/dL Calcium (8.4-10.2) mg/dL Total Bilirubin (0.2-1.3) mg/dL AST (14-36) U/L ALT (9-52) U/L Alkaline Phosphatase (38-126) U/L Total Protein (6.3-8.2) g/dL Albumin (3.5-5.0) g/dL Crossmatch Assessment and Plan Assessment: Assessment Acute on chronic hypoxic respiratory failure Hypoventilation syndrome Possible central versus obstructive sleep apnea Sarcoidosis Chronic severe persistent asthma Acute on chronic renal failure on hemodialysis Morbid obesity Elevated liver enzymes Severe sepsis with septic shock related to UTI and a component of bilateral lower extremity cellulitis Plan Medications have been reviewed and will be continued as ordered. IV steroid taper and antibiotics Vasopressors for hypotension wean as tolerated Patient will be receiving 2 units of packed red blood cells Initiated on bicarb drip Continue with pulmonary hygiene, coughing and deep breathing exercises, and supportive care. Supplemental oxygen to maintain oxygen saturations of 92% or better. BiPAP at night and as needed Continue nebulizer treatments. Hemodialysis per nephrology GI and DVT prophylaxis. Collaborative care with internal medicine, nephrology, pulmonary, infectious disease, route delivery supervisor, GI services, cardiology, vascular surgery and pain management, appreciate input and recommendations We will continue to monitor labs/results and adjust treatment as necessary. Further recommendations pending. I, the signing physician performed an examination of the patient, discussed and directed their management with the nurse practitioner. I have reviewed the nurse practitioner's note and agree with the documented findings, orders and plan of care.
[2018-04-19] MEDS: PANTOPRAZOLE 40 MG/10 ML VIAL IVP SCH (10:27)
[2018-04-19] MEDS: MIDODRINE 5 MG TAB PO SCH ×3 (10:27→18:14)
[2018-04-19] MEDS: HEPARIN SODIUM,PORCINE 5,000 UNIT/ML 1 ML VIAL SQ SCH ×2 (10:27→18:15)
[2018-04-19] MEDS: PETROLATUM, WHITE OINT 50 GM TUBE TOPICAL SCH ×2 (10:28→23:31)
[2018-04-19] MEDS: ZINC OXIDE 20% OINT 28.4 GM TUBE TOPICAL SCH ×5 (10:29→23:32)
[2018-04-19] MEDS: NYSTATIN 100,000 UNIT/GM POWD 15 GM TOPICAL SCH ×2 (10:29→23:30)
--- NOTE | 2018-04-19 10:36 | P.PN ---
Subjective Patient is seen in follow for acute kidney injury. Her baseline creatinine is 1. Renal function worsened this admission with creatinine up to 4.55 on April 16. Patient presented to the hospital due to hypotension with systolic blood pressure in the 60s at the ECF. Patient was transferred to the ICU with persistent hypotension and lactic acidosis. She is on IV steroids. Cortisol level normal. Remains oliguric. She was started on hemodialysis on April 16. She is currently on 5 mics of Levophed. She also has been started on tube feeds. This morning during dialysis patient became quite hypotensive and was requiring 50 mics of Levophed. Dialysis was stopped early and she received 500 mL of fluid back. Currently on 5 mics of Levophed. Hemoglobin was 5.9 this morning and she is receiving 2 units of blood. She will also be started on a bicarb drip. Vital signs are stable. General: The patient appeared well nourished and normally developed. HEENT: Head exam is unremarkable. Neck is without jugular venous distension. LUNGS: Breath sounds decreased. HEART: Rate and Rhythm are regular. First and second heart sounds normal. No murmurs, rubs or gallops. ABDOMEN: Abdominal exam reveals normal bowel sounds. Non-tender and non- distended. No evidence of peritonitis. EXTREMITITES: 2+ edema. Objective - Vital Signs Vital signs: Vital Signs Temp 98.7 F 04/19/18 04:00 Pulse 92 04/19/18 09:57 Resp 38 H 04/19/18 06:30 BP 144/112 04/18/18 17:40 Pulse Ox 100 04/19/18 06:30 Intake & Output 04/18/18 04/19/18 04/19/18 18:59 06:59 18:59 Intake Total 4593.462 2273 151.778 Output Total 114 17 Balance 9464.426 5640 151.778 Weight 184.7 kg Intake: IV 1386 DAPTOmycin 600 mg In 50 Sodium Chloride 0.9% 50 ml @ 100 mls/hr IVPB Q48H [facility] Rx#:[id number] Piperacillin-Tazobactam 3 100 .375 gm In Dextrose/Water 1 50ml.bag @ 12.5 mls/hr IVPB Q12HR [facility] Rx#: [id number] ns 1200 pressure bag 36 Intake, IV Titration 1329.476 289 151.778 Amount Albumin Human 25% 50 ml 50 In Empty Bag 1 bag @ 100 mls/hr IVPB Q12H [facility] Rx#: [id number] Naloxone 4 mg In Sodium 89 Chloride 0.9% 100 ml @ 0. 6 MG/HR 15 mls/hr IV . Q6H40M [facility] Rx#:[id number] Norepinephrine 16 mg In 29.476 151.778 Sodium Chloride 0.9% 250 ml @ Titrate IV .Q0M [facility] Rx#:[id number] Piperacillin-Tazobactam 3 50 .375 gm In Sodium Chloride 0.9% 100 ml @ 25 mls/hr IVPB Q12HR [facility] Rx #:[id number] Piperacillin-Tazobactam 3 100 .375 gm In Sodium Chloride 0.9% 100 ml @ 25 mls/hr IVPB Q8HR [facility] Rx# :[id number] Sodium Chloride 0.9% 1, 1200 100 000 ml @ 100 mls/hr IV . Q10H [facility] Rx#:[id number] Tube Feeding 360 Other 210 30 Output: Urine 14 17 Oral Regurgitation 100 Other: Voiding Method Indwelling Catheter Indwelling Catheter # Bowel Movements 1 1 ABP, PAP, CO, CI - Last Documented Arterial Blood Pressure 108/58 - Labs CBC & Chem 7: 04/19/18 05:51 04/19/18 04:19 Labs: Abnormal Lab Results - Last 24 Hours (Table) 04/17/18 04/18/18 04/18/18 Range/Units 15:30 11:12 11:45 WBC (3.8-10.6) k/uL RBC (3.80-5.40) m/uL Hgb (11.4-16.0) gm/dL Hct (34.0-46.0) % RDW (11.5-15.5) % Plt Count (150-450) k/uL Neutrophils # (Manual) (1.3-7.7) k/uL Metamyelocytes # (Man) (0) k/uL Nucleated RBCs (0-0) /100 WBC PT (9.0-12.0) sec INR (<1.2) APTT (22.0-30.0) sec ABG pH (7.35-7.45) ABG pCO2 (35-45) mmHg ABG pO2 139 H (83-108) mmHg ABG HCO3 (21-25) mmol/L ABG Total CO2 25 H (19-24) mmol/L ABG O2 Saturation 99.8 H (94-97) % Carbon Dioxide (22-30) mmol/L Creatinine (0.52-1.04) mg/dL POC Glucose (mg/dL) 161 H (75-99) mg/dL Calcium (8.4-10.2) mg/dL Total Bilirubin (0.2-1.3) mg/dL AST (14-36) U/L ALT (9-52) U/L Alkaline Phosphatase (38-126) U/L Total Protein (6.3-8.2) g/dL Albumin (3.5-5.0) g/dL Crossmatch See Detail 04/18/18 04/18/18 04/19/18 Range/Units 18:50 19:07 02:58 WBC (3.8-10.6) k/uL RBC (3.80-5.40) m/uL Hgb (11.4-16.0) gm/dL Hct (34.0-46.0) % RDW (11.5-15.5) % Plt Count (150-450) k/uL Neutrophils # (Manual) (1.3-7.7) k/uL Metamyelocytes # (Man) (0) k/uL Nucleated RBCs (0-0) /100 WBC PT (9.0-12.0) sec INR (<1.2) APTT (22.0-30.0) sec ABG pH 7.48 H (7.35-7.45) ABG pCO2 20 L (35-45) mmHg ABG pO2 114 H 182 H (83-108) mmHg ABG HCO3 15 L (21-25) mmol/L ABG Total CO2 25 H 15 L (19-24) mmol/L ABG O2 Saturation 100.0 H 100.0 H (94-97) % Carbon Dioxide (22-30) mmol/L Creatinine (0.52-1.04) mg/dL POC Glucose (mg/dL) 191 H (75-99) mg/dL Calcium (8.4-10.2) mg/dL Total Bilirubin (0.2-1.3) mg/dL AST (14-36) U/L ALT (9-52) U/L Alkaline Phosphatase (38-126) U/L Total Protein (6.3-8.2) g/dL Albumin (3.5-5.0) g/dL Crossmatch 04/19/18 04/19/18 04/19/18 Range/Units 04:19 04:19 05:51 WBC 21.8 H (3.8-10.6) k/uL RBC 1.95 L (3.80-5.40) m/uL Hgb 5.9 L* D (11.4-16.0) gm/dL Hct 18.4 L* (34.0-46.0) % RDW 18.8 H (11.5-15.5) % Plt Count 127 L (150-450) k/uL Neutrophils # (Manual) 17.00 H (1.3-7.7) k/uL Metamyelocytes # (Man) 0.44 H (0) k/uL Nucleated RBCs 19 H (0-0) /100 WBC PT 14.5 H (9.0-12.0) sec INR 1.6 H (<1.2) APTT 31.4 H (22.0-30.0) sec ABG pH (7.35-7.45) ABG pCO2 (35-45) mmHg ABG pO2 (83-108) mmHg ABG HCO3 (21-25) mmol/L ABG Total CO2 (19-24) mmol/L ABG O2 Saturation (94-97) % Carbon Dioxide 12 L (22-30) mmol/L Creatinine 2.39 H (0.52-1.04) mg/dL POC Glucose (mg/dL) (75-99) mg/dL Calcium 6.6 L (8.4-10.2) mg/dL Total Bilirubin 5.3 H (0.2-1.3) mg/dL AST 829 H (14-36) U/L ALT 262 H (9-52) U/L Alkaline Phosphatase 420 H (38-126) U/L Total Protein 3.9 L (6.3-8.2) g/dL Albumin 2.3 L (3.5-5.0) g/dL Crossmatch 04/19/18 04/19/18 Range/Units 06:31 08:19 WBC (3.8-10.6) k/uL RBC (3.80-5.40) m/uL Hgb (11.4-16.0) gm/dL Hct (34.0-46.0) % RDW (11.5-15.5) % Plt Count (150-450) k/uL Neutrophils # (Manual) (1.3-7.7) k/uL Metamyelocytes # (Man) (0) k/uL Nucleated RBCs (0-0) /100 WBC PT (9.0-12.0) sec INR (<1.2) APTT (22.0-30.0) sec ABG pH 7.26 L (7.35-7.45) ABG pCO2 26 L (35-45) mmHg ABG pO2 169 H (83-108) mmHg ABG HCO3 12 L (21-25) mmol/L ABG Total CO2 12 L (19-24) mmol/L ABG O2 Saturation 99.2 H (94-97) % Carbon Dioxide (22-30) mmol/L Creatinine (0.52-1.04) mg/dL POC Glucose (mg/dL) 66 L (75-99) mg/dL Calcium (8.4-10.2) mg/dL Total Bilirubin (0.2-1.3) mg/dL AST (14-36) U/L ALT (9-52) U/L Alkaline Phosphatase (38-126) U/L Total Protein (6.3-8.2) g/dL Albumin (3.5-5.0) g/dL Crossmatch Assessment and Plan Plan: Assessment: 1. Acute kidney injury secondary to ATN secondary to hypotension. Creatinine peaked at 4.99 on April 16. Baseline creatinine near 1. No hydronephrosis noted on renal ultrasound. She is noted to have sub-nephrotic proteinuria. 2. Proteinuria. Her albumin is also low. UPC 0.5. Rule out GN. Serologies negative. Urine eosinophils negative. 3. Metabolic acidosis secondary to acute kidney injury and IV fluids. 4. Edema. 5. Hypotension. This is due to to sepsis. Cortisol level normal. Currently on 5 mics of Levophed. 6. Diabetes mellitus. Patient states this was diagnosed within the last 1 year. 7. UTI with urine culture positive for VRE. Infectious disease following. Vancomycin discontinued. 8. Hyperkalemia. This is due to acute kidney injury and metabolic acidosis. Potassium supplementation discontinued. Better. 9. Hyponatremia secondary to acute kidney injury. Better. 10. Hyperphosphatemia secondary to BOONE. Better with dialysis. Also on PhosLo. 11. Systolic CHF with ejection fraction of 45-50% with moderate pulmonary hypertension. 12. Elevated liver enzymes. GI following. May require liver biopsy. Also potential transfer to tertiary care center. 13. Acute blood loss anemia with hemoglobin of 5.9 today. Scheduled to receive 2 units of packed red blood cell transfusion today. Plan: Start isotonic sodium bicarbonate drip to be run at 50 mL an hour. Add oral sodium bicarbonate 1300 mg twice daily. Strict I's and O's. Avoid nephrotoxins. Status post IV Lasix 80 mg yesterday with no response and urine output. Attempt hemodialysis again tomorrow.
[2018-04-19] MEDS ORDERED: SODIUM BICARB 8.4% 50 ML SYR (1 MEQ/ML) IV ONE (10:44)
--- NOTE | 2018-04-19 11:38 | ECHOF ---
Referral Reason:hypotension MEASUREMENTS -------- HEIGHT: 175.3 cm WEIGHT: 184.6 kg BP: 108/58 RVIDd: 3.7 cm (< 3.3) IVSd: 1.3 cm (0.6 - 1.1) LVIDd: 3.3 cm (3.9 - 5.3) LVPWd: 1.3 cm (0.6 - 1.1) IVSs: 1.5 cm LVIDs: 2.0 cm LVPWs: 1.6 cm RAP: 5.00 mmHg RVSP: 50.93 mmHg FINDINGS -------- Sinus rhythm. This was a technically difficult study with suboptimal views. Limited Study The left ventricular size is normal. There is mild concentric left ventricular hypertrophy. Overa ll left ventricular systolic function is normal with, an EF between 60 - 65 %. The right ventricle is mild to moderately enlarged. The left atrium was not well visualized. The right atrium is normal in size. The aortic valve is trileaflet and appears structurally normal. Mild tricuspid regurgitation present. There is moderate pulmonary hypertension. The right ventric ular systolic pressure, as measured by Doppler, is 50.93mmHg. CONCLUSIONS -------- 1. Sinus rhythm. 2. This was a technically difficult study with suboptimal views. 3. Limited Study 4. The left ventricular size is normal. 5. There is mild concentric left ventricular hypertrophy. 6. Overall left ventricular systolic function is normal with, an EF between 60 - 65 %. 7. The right ventricle is mild to moderately enlarged. 8. The left atrium was not well visualized. 9. The right atrium is normal in size. 10. The aortic valve is trileaflet and appears structurally normal. 11. Mild tricuspid regurgitation present. 12. There is moderate pulmonary hypertension. 13. The right ventricular systolic pressure, as measured by Doppler, is 50.93mmHg. PRICING INTERN: KERRY Hutton
[2018-04-19 11:49] LABS: Alpha Fetoprotein, Tumor Mkr 11.2 ng/mL (0.0-7.9)
--- NOTE | 2018-04-19 13:31 | P.PN ---
Subjective Progress Note Date: 04/19/18 (Critical care time 35 minutes) Principal diagnosis: Generalized anasarca, severe symptomatic hypotension, Acute renal failure, Severe sepsis and septic shock associated with urinary tract infection, pulmonary sarcoidosis, severe morbid obesity, obesity hypoventilation syndrome, sleep disorder breathing and sleep apnea, uncontrolled hyperglycemia and type 2 diabetes mellitus, acute renal failure, chronic pain syndrome, fluctuating hypo- and hypertension 04/19/2018, patient seen eval examined during the rounds continue to have significant intermittent fluctuation in the blood pressure unable to complete the hemodialysis patient remains lethargic and poorly responsive, hyperventilating due to significant metabolic acidosis due to renal failure as well as from the levo fed drip, her chest x-ray performed today revealed left basilar atelectasis, labs reviewed white cell count is up to 21,000 with a hemoglobin drop down to 5.9 platelet count is 1 27,000 Ray a blood gas revealed pH is 7.26 pCO2 26 pO2 169 base deficit is 15, BUN/creatinine is 16 and 2.39, and liver enzyme continue to go up suggestive of possibly shock liver , recent abdominal computed tomography scan has been unremarkable except some changes at [facility] ID service is following, there is no obvious source of bleeding has been noted, patient did have a bowel movement earlier today which was normal in appearance, anemia appears to be anemia of chronic disease, overall prognosis is very guarded 04/18/2018, patient seen and evaluated examined during the rounds she is a status post hemodialysis unable to remove over 2 L only 1.8 L of fluid has been removed with hemodialysis patient has significant degree of hemodynamic fluctuation with the levo fed drip went all the way up to 20 mics however now able to bring it down to 7 mics, patient had episode of emesis of BiPAP mask has been removed patient is now nasal cannula patient has been on tube feed well and Reglan 10 mg IV every 6, due to labile blood pressure patient will require a arterial line, labs and medications reviewed from today August chest x- ray overall is stable with stable right-sided PICC line cardiomegaly is been noted some interstitial edema has been noted, stable NG tube, arterial blood gas performed today reviewed the pH is fairly balanced 7.42 pCO2 37 pO2 139 the severity or acidosis has improved Ammann D and creatinine as down to 20/2.84, hemoglobin is 7.4 white cell count is 14,800 Ammann noted to marker alpha- fetoprotein is elevated as well 11.2 04/17/2018, patient seen eval examined during the rounds clinically patient has been doing slightly better in terms of breathing oxygenation stable but continued to require BiPAP support, currently patient is on IPAP of 14 EPAP of 5 with 35% oxygen, the blood pressure did drop down with map into the low 50s levo fed drip is being started, patient is currently undergoing hemodialysis with intent to remove about 2 L of fluid, has had incomplete just 2 hour hemodialysis yesterday, patient is arousable opens eyes does try to follow simple commands slightly more awake now, once dialysis is completed then patient remains stable will reassess and do a swallowing evaluation prior to Dobbhoff or NG tube placement, laboratory data radiographic studies reviewed medications reviewed, white cell count 11,000, hemoglobin is 7.2, BUN/ creatinine slightly improved /3.58, patient remains on broad-spectrum antibiotics high-dose IV steroids methadone is on hold 04/16/2018, patient seen eval examined during the rounds she is currently on 5 mics of the levo fed, the old using and bleeding from the dialysis catheter site has improved and resolved now he shouldn't has been planned for dialysis by renal services, hemodynamics status overall stable, remains on BiPAP with IPAP 14 EPAP of 5 with 35% oxygen, labs from today reviewed no chest x-rays performed today we'll plan for tomorrow including labs, and I'll of is being planned by GI services 04/15/2018, patient seen eval examined during rounds, patient remain somnolent but arousable, remains on BiPAP currently on IPAP of 14 and EPAP of 5 with 35% oxygen, labs reviewed white cell count is trickling down is 11,000, hemoglobin remained stable 8.8, creatinine continued to go up is 4.19 now, as per discussion with the renal service proceed with hemodialysis vascular surgery has been consulted, and they have placed and dialysis catheter but patient is hypertensive also some bruising and blood-tinged discharge from the catheter site is present advised to hold on dialysis tonight 04/14/2018 Patient has been more lethargic throughout the day, has been on BiPAP 14/6 with 35% oxygen patient is gently being rehydrated patient does have diffuse anasarca however chest x-ray continue to be normal with normal heart size no effusion is seen him a subtle basal atelectasis cannot be excluded, and labs from today reviewed white cell count remains stable hemoglobin is unchanged platelet count stable as well, renal functions remains poor BUN/ creatinine continued to get worse 23 and 3.99 urine output is very minimal, patient has not received her methadone today, recommend to DC methadone, it appears that patient may need dialysis/ultrafiltration for generalized anasarca and worsening renal failure 04/13/2018, patient seen eval reexamined during the rounds care plan discussed the renal service patient's chest x-ray unremarkable oxygen is stable, patient remains on BiPAP as needed along with oxygen patient has not been using the BiPAP machine very regularly have discussed with the family as well as patient importance to using the BiPAP regularly, I have also advised to stop or discontinue methadone as it may be interfering with the mental status for now dose has been cut down to half, labs reviewed medications reviewed 04/12/2018, patient seen eval examined during the rounds clinically patient is doing better in terms of hemodynamics but remains intermittently tachycardic which is not much change from baseline blood pressure has been stable, patient did not use her BiPAP machine last night, has been more somnolent she is lethargic but readily arousable, she does answer in simple words, moving all 4 extremities, she was noted to have snoring as well as apneic events, family is present at bedside and have discussed with them at length about importance of using the BiPAP machine each night and when necessary during the day will put the BiPAP again with a setting of 14/5 with 35% oxygen, potassium is up slightly urine culture is positive for Enterococcus faecium/VRE, patient is on daptomycin and Zosyn, IV fluids are 100 mL an hour, BUN/creatinine slightly up and baseline 04/11/2018, patient seen eval examined in ICU patient the continue to have issues associated aches and pain she remains a poor historian however does describe generalized pain throughout the body, patient has been nauseous as well a computed tomography scan of the abdominal and pelvis is being ordered, her lactic acid has improved with the fluid resuscitation, patient has been on broad-spectrum antibiotics I urine culture is positive for enterococcus Ammann labs from today reviewed sodium is 1:30 and production of 5.3 her BUN/ creatinine is 15 and 2.99, overall sodium remains stable hyperkalemia is present renal functions continued to be marginal liters lactic acid check was 1.9, chest x-ray remains stable PICC line site is stable borderline cardiomegaly , patient is getting broad-spectrum antibiotics with Vanco mycin, daptomycin and Zosyn patient is a getting therapy for the lower extremity cellulitis as well along with local care 47-year-old morbidly obese female who was seen evaluated examined in the ICU this patient has been a resident of [facility], patient has problems associated with chronic renal insufficiency, sarcoidosis severely morbidly obese was found to have blood pressure only 60s systolic at the [facility] EMS was notified it appears that blood pressure has been extremely fluctuating it was noted to be 90 by EMS however subsequently was in 150 patient was tachypneic and tachycardic as well no chest pain was present overall patient is a poor historian, patient was eventually admitted into the hospital from the emergency department Robert patient underwent a VQ scan with indeterminate findings, CT angiogram be performed due to elevated creatinine Robert patient has been using BiPAP off and on with a IPAP of 14 and EPAP of 5 and 35% oxygen, patient has been comfortable now she has a low urine output she is getting a fluid challenge of 500 mL crystalloid due to elevated lactic acid followed by 100 mL an hour patient is also on Solu-Cortef which is being switched to Solu-Medrol, currently patient is on bronchodilators and continuation of home medications, heparin for DVT prophylaxis, due to chronic hypertension patient is on midodrine along with broad-spectrum antibiotics along with Zosyn and vancomycin, urine is positive for group D enterococcus, other significant labs were noted to have a lactic acid of 5.8 came down to 3.2 , BUN/creatinine remains stable 40 and 2.93 much chest x-ray revealed cardiomegaly small left-sided pleural effusion with subsegmental atelectasis, patient was transferred to ICU for hypotension and low urine output and elevated lactic acid where she was seen evaluated examined Objective - Vital Signs Vital signs: Vital Signs Temp 97.5 F L 04/19/18 11:48 Pulse 99 04/19/18 11:48 Resp 31 H 04/19/18 11:48 BP 132/71 04/19/18 11:48 Pulse Ox 100 04/19/18 11:38 Intake & Output 04/18/18 04/19/18 04/19/18 18:59 06:59 18:59 Intake Total 8562.010 1568 733.778 Output Total 114 17 Balance 6085.040 1189 733.778 Weight 184.7 kg Intake: IV 1386 412 DAPTOmycin 600 mg In 50 Sodium Chloride 0.9% 50 ml @ 100 mls/hr IVPB Q48H [facility] Rx#:[id number] Piperacillin-Tazobactam 3 100 .375 gm In Dextrose/Water 1 50ml.bag @ 12.5 mls/hr IVPB Q12HR [facility] Rx#: [id number] ns 1200 400 pressure bag 36 12 Intake, IV Titration 1329.476 289 251.778 Amount Albumin Human 25% 50 ml 50 In Empty Bag 1 bag @ 100 mls/hr IVPB Q12H [facility] Rx#: [id number] Naloxone 4 mg In Sodium 89 100 Chloride 0.9% 100 ml @ 0. 6 MG/HR 15 mls/hr IV . Q6H40M [facility] Rx#:[id number] Norepinephrine 16 mg In 29.476 151.778 Sodium Chloride 0.9% 250 ml @ Titrate IV .Q0M [facility] Rx#:[id number] Piperacillin-Tazobactam 3 50 .375 gm In Sodium Chloride 0.9% 100 ml @ 25 mls/hr IVPB Q12HR [facility] Rx #:[id number] Piperacillin-Tazobactam 3 100 .375 gm In Sodium Chloride 0.9% 100 ml @ 25 mls/hr IVPB Q8HR [facility] Rx# :[id number] Sodium Chloride 0.9% 1, 1200 100 000 ml @ 100 mls/hr IV . Q10H [facility] Rx#:[id number] Tube Feeding 360 40 Blood Product 0 Rc As-1 Unit 0 [id number] Other 210 30 30 Output: Urine 14 17 Oral Regurgitation 100 Other: Voiding Method Indwelling Catheter Indwelling Catheter # Bowel Movements 1 1 ABP, PAP, CO, CI - Last Documented Arterial Blood Pressure 131/70 - Exam Gen: This is a morbidly obese 47-year-old Afro [place] female. She is in bed and appears to be in tachypneic in moderate respiratory distress, patient lethargic eyes close patient is getting Narcan drip as patient has been getting methadone to yesterday HEENT: Head is atraumatic, normocephalic. Pupils equal, round. Sclerae is anicteric. Hearing grossly normal. NECK: Supple. No JVD. No lymphadenopathy. No thyromegaly. LUNGS: Diminished bilaterally. Clear to auscultation. No wheezes or rhonchi. No intercostal retractions. Has been on BiPAP support continuously HEART: Regular rate and rhythm. No murmur. ABDOMEN: Morbidly obese. Soft. Bowel sounds are present. No masses. No tenderness. EXTREMITIES: 2+ pedal edema. Chronic skin inflammatory changes early cellulitis cannot be excluded No calf tenderness. No redness. NEUROLOGICAL: Patient is mostly somnolent but arousable on physical and verbal stimuli awake, mostly nonverbal and noncommunicative. Generalized weakness. - Labs CBC & Chem 7: 04/19/18 05:51 04/19/18 04:19 Labs: Abnormal Lab Results - Last 24 Hours (Table) 04/17/18 04/18/18 04/18/18 Range/Units 15:30 04:35 18:50 WBC (3.8-10.6) k/uL RBC (3.80-5.40) m/uL Hgb (11.4-16.0) gm/dL Hct (34.0-46.0) % RDW (11.5-15.5) % Plt Count (150-450) k/uL Neutrophils # (Manual) (1.3-7.7) k/uL Metamyelocytes # (Man) (0) k/uL Nucleated RBCs (0-0) /100 WBC PT (9.0-12.0) sec INR (<1.2) APTT (22.0-30.0) sec ABG pH (7.35-7.45) ABG pCO2 (35-45) mmHg ABG pO2 114 H (83-108) mmHg ABG HCO3 (21-25) mmol/L ABG Total CO2 25 H (19-24) mmol/L ABG O2 Saturation 100.0 H (94-97) % Carbon Dioxide (22-30) mmol/L Creatinine (0.52-1.04) mg/dL POC Glucose (mg/dL) (75-99) mg/dL Calcium (8.4-10.2) mg/dL Total Bilirubin (0.2-1.3) mg/dL AST (14-36) U/L ALT (9-52) U/L Alkaline Phosphatase (38-126) U/L Total Protein (6.3-8.2) g/dL Albumin (3.5-5.0) g/dL Tumor Marker AFP 11.2 H (0.0-7.9) ng/mL Crossmatch See Detail 04/18/18 04/19/18 04/19/18 Range/Units 19:07 02:58 04:19 WBC (3.8-10.6) k/uL RBC (3.80-5.40) m/uL Hgb (11.4-16.0) gm/dL Hct (34.0-46.0) % RDW (11.5-15.5) % Plt Count (150-450) k/uL Neutrophils # (Manual) (1.3-7.7) k/uL Metamyelocytes # (Man) (0) k/uL Nucleated RBCs (0-0) /100 WBC PT (9.0-12.0) sec INR (<1.2) APTT (22.0-30.0) sec ABG pH 7.48 H (7.35-7.45) ABG pCO2 20 L (35-45) mmHg ABG pO2 182 H (83-108) mmHg ABG HCO3 15 L (21-25) mmol/L ABG Total CO2 15 L (19-24) mmol/L ABG O2 Saturation 100.0 H (94-97) % Carbon Dioxide 12 L (22-30) mmol/L Creatinine 2.39 H (0.52-1.04) mg/dL POC Glucose (mg/dL) 191 H (75-99) mg/dL Calcium 6.6 L (8.4-10.2) mg/dL Total Bilirubin 5.3 H (0.2-1.3) mg/dL AST 829 H (14-36) U/L ALT 262 H (9-52) U/L Alkaline Phosphatase 420 H (38-126) U/L Total Protein 3.9 L (6.3-8.2) g/dL Albumin 2.3 L (3.5-5.0) g/dL Tumor Marker AFP (0.0-7.9) ng/mL Crossmatch 04/19/18 04/19/18 04/19/18 Range/Units 04:19 05:51 06:31 WBC 21.8 H (3.8-10.6) k/uL RBC 1.95 L (3.80-5.40) m/uL Hgb 5.9 L* D (11.4-16.0) gm/dL Hct 18.4 L* (34.0-46.0) % RDW 18.8 H (11.5-15.5) % Plt Count 127 L (150-450) k/uL Neutrophils # (Manual) 17.00 H (1.3-7.7) k/uL Metamyelocytes # (Man) 0.44 H (0) k/uL Nucleated RBCs 19 H (0-0) /100 WBC PT 14.5 H (9.0-12.0) sec INR 1.6 H (<1.2) APTT 31.4 H (22.0-30.0) sec ABG pH (7.35-7.45) ABG pCO2 (35-45) mmHg ABG pO2 (83-108) mmHg ABG HCO3 (21-25) mmol/L ABG Total CO2 (19-24) mmol/L ABG O2 Saturation (94-97) % Carbon Dioxide (22-30) mmol/L Creatinine (0.52-1.04) mg/dL POC Glucose (mg/dL) 66 L (75-99) mg/dL Calcium (8.4-10.2) mg/dL Total Bilirubin (0.2-1.3) mg/dL AST (14-36) U/L ALT (9-52) U/L Alkaline Phosphatase (38-126) U/L Total Protein (6.3-8.2) g/dL Albumin (3.5-5.0) g/dL Tumor Marker AFP (0.0-7.9) ng/mL Crossmatch 04/19/18 Range/Units 08:19 WBC (3.8-10.6) k/uL RBC (3.80-5.40) m/uL Hgb (11.4-16.0) gm/dL Hct (34.0-46.0) % RDW (11.5-15.5) % Plt Count (150-450) k/uL Neutrophils # (Manual) (1.3-7.7) k/uL Metamyelocytes # (Man) (0) k/uL Nucleated RBCs (0-0) /100 WBC PT (9.0-12.0) sec INR (<1.2) APTT (22.0-30.0) sec ABG pH 7.26 L (7.35-7.45) ABG pCO2 26 L (35-45) mmHg ABG pO2 169 H (83-108) mmHg ABG HCO3 12 L (21-25) mmol/L ABG Total CO2 12 L (19-24) mmol/L ABG O2 Saturation 99.2 H (94-97) % Carbon Dioxide (22-30) mmol/L Creatinine (0.52-1.04) mg/dL POC Glucose (mg/dL) (75-99) mg/dL Calcium (8.4-10.2) mg/dL Total Bilirubin (0.2-1.3) mg/dL AST (14-36) U/L ALT (9-52) U/L Alkaline Phosphatase (38-126) U/L Total Protein (6.3-8.2) g/dL Albumin (3.5-5.0) g/dL Tumor Marker AFP (0.0-7.9) ng/mL Crossmatch Assessment and Plan Assessment: Labile blood pressure with alternating hypertension followed by hypertension status post arterial line better blood pressure monitoring Persistent somnolence and lethargy we'll continue BiPAP, Acute on chronic renal failure on hemodialysis Progressive worsening renal function and generalized anasarca proceed with hemodialysis as per renal services For ongoing hypotension will maintain patient on levo fed drip a.m. for map about 65-70 so adequate dialysis can be performed, patient had difficult time and tolerating the dialysis earlier today 800 mL was withdrawn however ended up being given 500 mL bag Acute hypoxic and hypercapnic respiratory failure Severe sepsis and septic shock related to enterococcus urinary tract infection with some complaint component from cellulitis of the both lower extremity Bilateral lower extremity cellulitis Elevated lactic acid/metabolic acidosis multifactorial associated with acute on chronic renal failure, urinary tract infection have improved though her and normalized Pulmonary sarcoidosis with possible left lower lobe pneumonia Somnolence and lethargy due to multifactorial processes including methadone currently on hold Small left-sided pleural effusion Dehydration associated with intravascular volume depletion patient is undergoing intermittent crystalloid challenge Severe morbid obesity and obstructive sleep apnea Plan: Reglan IV labs and x-ray tomorrow Bicarb drip, repeat blood gas after initiating of bicarb drip Continue naloxone drip for another 24 hour Maintain BiPAP for now if worsening of respiratory acidosis or metabolic acidosis seen may intubate the patient Keep patient in ICU Arterial line or better blood pressure monitoring Dialysis as per renal service DC methadone Dobbhoff tube as tolerated Continue broad-spectrum antibiotics DVT and peptic ulcer disease prophylaxis IV steroids, Reviewed labs and radiographic studies ordered for tomorrow, further recommendations pending plan of care as per clinical response of the patient Further recommendations pending plan of care as per clinical response of patient Time with Patient: Greater than 30
--- NOTE | 2018-04-19 13:34 | P.PCN ---
Date of Procedure: 04/19/18 Preoperative Diagnosis: Severe sepsis and septic shock, enterococcus urine tract infection, acute renal failure, severe anemia Postoperative Diagnosis: As above Procedure(s) Performed: Right internal jugular triple-lumen catheter placement attempted however left side by ultrasound guidance Anesthesia: local Surgeon: Tony Robin Estimated Blood Loss (ml): 2 Condition: critical Disposition: ICU Indications for Procedure: As above Operative Findings: As below Description of Procedure: Patient prepared and draped in a usual fashion ultrasound was utilized to locate into the left internal jugular vein which was located but however location was in front of carotid artery in addition was of very small caliber able to access through the gauge 24 needle however unable to get x-rays with 16- gauge needle a third wire couldn't be placed hemostasis achieved patient tolerated procedure well no complication noted chest x-ray pending, we will obtain a PICC line on the other extremity
[2018-04-19] MEDS ORDERED: IOPAMIDOL-300 CONTRAST 30 ML VIAL (ORAL USE) PO PRN (13:35)
[2018-04-19] MEDS ORDERED: LIDOCAINE 1% INJ 10MG/ML (20 ML MDV) SQ ONE (13:52)
[2018-04-19 13:53] LABS: Glucose,Whole Blood 66 mg/dL (75-99)
[2018-04-19 13:53] LABS: Glucose,Whole Blood 91 mg/dL (75-99)
[2018-04-19] MEDS ORDERED: ALBUMIN HUMAN 25% 50 ML in EMPTY BAG 1 BAG IVPB SCH (14:00)
[2018-04-19 14:07] LABS: Ceruloplasmin 71.3 mg/dL (20.0-60.0)
--- NOTE | 2018-04-19 14:43 | P.PCN ---
Date of Procedure: 04/19/18 Preoperative Diagnosis: Severe sepsis septic shock enterococcus urinary tract infection acute hypercapnic Hypoxic respiratory failure acute blood loss anemia severe profound metabolic acidosis Postoperative Diagnosis: As above Procedure(s) Performed: Right-sided IJ anterior approach triple-lumen central venous catheter placement Anesthesia: local Surgeon: Tony Robin Estimated Blood Loss (ml): 1 Disposition: ICU Indications for Procedure: As above Operative Findings: As below Description of Procedure: Ultrasound was utilized to access into the right internal jugular vein via anterior approach procedure is performed with modified Seldinger technique post procedure chest x-ray reviewed patient tolerated procedure well no complication noted this line was placed as there is a need for multiple central venous accesses due to incompatibility off medications being infused with the same port , patient tolerated procedure well no complication noted
--- NOTE | 2018-04-19 14:47 | PN ---
PROGRESS NOTE DATE OF SERVICE: 04/19/2018 REASON FOR FOLLOW UP: 1. VRE urinary tract infection. 2. Possible aspiration pneumonitis. 3. Multiple wounds. INTERVAL HISTORY: The patient did have overall worsening of her clinical condition, is becoming hypotensive, requiring pressor support. Also drop in the hemoglobin. He is currently getting 2 units of blood transfusion. The patient remains to be lethargic and has been on a BiPAP no further vomiting per the RN has been taking care of the patient. Still has some bleeding from the right posterior thigh wound, but no worsening. She also noticed to have worsening of her liver enzymes predominantly as the AST this elevated, ALT is only 262. The patient #2 part any history. REVIEW OF SYSTEMS: Could not be reliably obtained. Possibly has have mentioned in HPI. PAST MED AND SURGICAL HISTORY: No change. Medication reviewed. PHYSICAL EXAMINATION: Her blood pressure is 132/71 with a pulse of 99, temperature 98.5, she is 100% on BiPAP. General description is a middle aged female, lying in bed in no distress. RESPIRATORY SYSTEM: Unlabored breathing with decreased breath sounds at the bases. no wheeze. HEART: S1, S2. Regular rate and rhythm. ABDOMEN: Soft, no distention. No guarding or rigidity. EXTREMITIES: With 2+ edema to the feet. Skin wound is currently dressed up, no obvious drainage on the dressing. LABS: Hemoglobin 5.9, white count of 21.8, BUN of 16, creatinine is 2.39, bilirubin is 5.3, AST is 829, ALT is 262. DIAGNOSTIC IMPRESSION/PLAN: 1. Patient within hospital with hypertension, which is mostly multifactorial and a component of possible VRE urinary tract infection that has been adequately treated. Will discontinue her daptomycin. 2. Patient now with worsening respiratory failure requiring BiPAP with evidence of new left lower lobe infiltrate. Did have an episode of vomiting yesterday, possible aspiration pneumonitis .Zosyn has been started that will be continued. 3. Patient with elevated liver enzymes, questionably drug allergies questionably to daptomycin has been discontinued. Will watch those were closely. Also check a CPK. 4. Patient with bilateral groin and foot area with nystatin powder. 5. Left upper arm wound. Continue with Aquacel Silver dressing. Overall prognosis remains to be guarded. MMODL / IJN: [id number] /
[2018-04-19] MEDS: DEXTROSE 5% IN WATER 1,000 ML with SODIUM BICARB (1 MEQ/ML) 150 ML IV SCH (15:03)
--- NOTE | 2018-04-19 15:03 | XR ---
EXAMINATION TYPE: XR chest 1V portable DATE OF EXAM: 04/19/2018 COMPARISON: 04/19/2018 earlier exam INDICATION: Line placement TECHNIQUE: Single frontal view of the chest is obtained. FINDINGS: The heart size is normal. The pulmonary vasculature is normal. The lungs are clear. No pneumothorax is evident. Right central venous catheter is been placed tip in the distal superior v shane cava. Nasogastric tube transverses the thorax. Tracheobronchial tree is visualized is normal. EKG leads ove rlie the chest. IMPRESSION: 1. No pneumothorax post line placement. Catheter tip is within the superior vena cava region.
[2018-04-19] MEDS: SODIUM BICARBONATE TAB 650 MG TAB PO SCH ×2 (15:30→23:31)
[2018-04-19 17:03] LABS: ABG Base Excess -8.2 mmol/L; ABG HCO3 15 mmol/L (21-25); ABG PH 7.51 (7.35-7.45); ABG PO2 181 mmHg (83-108); ABG TCO2 15 mmol/L (19-24)
[2018-04-19 17:10] LABS: ABG PCO2 19 mmHg (35-45)
--- NOTE | 2018-04-19 20:48 | CT ---
EXAMINATION TYPE: CT abdomen pelvis wo con DATE OF EXAM: 04/19/2018 COMPARISON: 04/11/2018 HISTORY: retroperitoneal bleed CT DLP: [id number] mGycm Automated exposure control for dose reduction was used. TECHNIQUE: Helical acquisition of images was performed from the lung bases through the pelvis. FINDINGS: There is some mild interstitial infiltrate at the lung bases. Heart size is normal. There is no pleur al effusion. There is diffuse fatty infiltration of the liver. There is extensive subcutaneous edema on the lateral aspect of the abdomen. Spleen appears normal. There is no pancreatic mass. Gallbladder appears normal. There is no adrenal mass. There are calcifications in the lower pole right kidney. There is no hydron ephrosis. There is no retroperitoneal adenopathy. There is no ascites. There is large umbilical herni a that contains omental fat. There is no sign of free air. There is no inguinal hernia. Bladder is em pty. There is Lopez catheter in the bladder. There is no free fluid in the pelvis. I see no intestina l wall thickening. There are no dilated loops. There is 3 cm cyst lower pole left kidney. The patient 's soft tissues are not entirely included due to the patient's size. Appendix appears to be visualize d and appears normal. There is no mesenteric edema. There is no mesenteric adenopathy. IMPRESSION: THERE IS FATTY INFILTRATION OF THE LIVER. NONOBSTRUCTING RIGHT RENAL CALCULI. ABDOMEN AND PELVIS UNCH ANGED COMPARED TO LAST EXAM. THERE IS EXTENSIVE SUBCUTANEOUS EDEMA BILATERALLY THAT IS PROBABLY INCREASED COMPARED TO LAST CT SCAN . NO EVIDENCE OF RETROPERITONEAL HEMORRHAGE.
[2018-04-19 21:00] LABS: Glucose,Whole Blood 94 mg/dL (75-99)
[2018-04-19] MEDS ORDERED: PIPERACILLIN-TAZOBACTAM 3.375 GM in SODIUM CHLORIDE 0.9% 100 ML IVPB SCH (21:00)
[2018-04-19 21:25] LABS: Anisocytosis Slight; HCT 23.9 % (34.0-46.0); MCH 31.4 pg (25.0-35.0); MCV 89.9 fL (80.0-100.0); Mean Platelet Volume 9.3; Platelet Count 126 k/uL (150-450); Poikilocytosis Slight; RBC 2.66 m/uL (3.80-5.40); RDW 16.7 % (11.5-15.5); WBC 28.7 k/uL (3.8-10.6)
[2018-04-19 21:26] LABS: ABG Base Excess -6.3 mmol/L; ABG HCO3 17 mmol/L (21-25); ABG PCO2 22 mmHg (35-45); ABG PO2 163 mmHg (83-108); ABG TCO2 18 mmol/L (19-24)
[2018-04-19 21:31] LABS: HGB 8.3 gm/dL (11.4-16.0)
[2018-04-19] MEDS ORDERED: SUCCINYLCHOLINE CHLORIDE 100 MG/5 ML SYR IV ONE (22:22)
[2018-04-19] MEDS ORDERED: PROPOFOL 10 MG/ML 20 ML VIAL IV ONE (22:22)
--- NOTE | 2018-04-19 22:49 | XR ---
EXAMINATION TYPE: XR chest 1V DATE OF EXAM: 04/19/2018 COMPARISON: Today HISTORY: Check tube placement TECHNIQUE: Single frontal view of the chest is obtained. FINDINGS: Endotracheal tube is 9 mm from the guanako. Nasogastric tube appears in good position. Ther e is infiltrate in the left lower lobe. There is right jugular catheter with tip in the superior vena cava. There are chest leads. IMPRESSION: Endotracheal tube is low and should be pulled back 3 cm. There is increasing infiltrate left lower lobe compared to exam earlier today.
[2018-04-19 22:51] LABS: ABG Base Excess -5.8 mmol/L; ABG HCO3 19 mmol/L (21-25); ABG Oxygen Saturation 99.2 % (94-97); ABG PCO2 30 mmHg (35-45); ABG PH 7.41 (7.35-7.45); ABG PO2 104 mmHg (83-108); ABG TCO2 20 mmol/L (19-24)
[2018-04-19] MEDS: PROPOFOL 1,000 MG in EMPTY BAG 1 BAG IV SCH (23:07)
[2018-04-20] MEDS: PIPERACILLIN-TAZOBACTAM 3.375 GM in SODIUM CHLORIDE 0.9% 100 ML IVPB SCH ×3 (00:25→15:55)
[2018-04-20] MEDS: HEPARIN SODIUM,PORCINE 5,000 UNIT/ML 1 ML VIAL SQ SCH ×4 (00:30→23:53)
[2018-04-20] MEDS: methylPREDNISolone SOD SUCCI 125 MG/2 ML VIAL IV SCH ×3 (00:30→23:53)
[2018-04-20] MEDS: METOCLOPRAMIDE 5 MG/ML 2 ML VIAL IVP SCH ×5 (00:30→23:52)
[2018-04-20] MEDS: NALOXONE 4 MG in SODIUM CHLORIDE 0.9% 100 ML IV SCH ×2 (00:32→11:24)
[2018-04-20] MEDS: INSULIN ASPART 100 UNIT/ML 1 ML 10 ML VIAL SQ SCH ×6 (00:37→21:00)
[2018-04-20 00:47] LABS: Glucose,Whole Blood 122 mg/dL (75-99)
[2018-04-20] MEDS: PROPOFOL 1,000 MG in EMPTY BAG 1 BAG IV SCH ×5 (02:43→22:57)
[2018-04-20] MEDS: ALBUMIN HUMAN 25% 50 ML in EMPTY BAG 1 BAG IVPB SCH ×2 (03:13→15:33)
[2018-04-20 04:41] LABS: ABG Base Excess -2.5 mmol/L; ABG HCO3 22 mmol/L (21-25); ABG PCO2 32 mmHg (35-45); ABG PH 7.44 (7.35-7.45); ABG PO2 284 mmHg (83-108); ABG TCO2 23 mmol/L (19-24)
[2018-04-20 04:48] LABS: Anisocytosis Slight; HGB 7.9 gm/dL (11.4-16.0); MCH 32.6 pg (25.0-35.0); MCV 90.5 fL (80.0-100.0); Mean Platelet Volume 8.9; Platelet Count 124 k/uL (150-450); Poikilocytosis Slight; RBC 2.43 m/uL (3.80-5.40); RDW 17.4 % (11.5-15.5); WBC 26.6 k/uL (3.8-10.6)
[2018-04-20 05:05] LABS: Albumin 2.3 g/dL (3.5-5.0); Calcium 6.8 mg/dL (8.4-10.2); Magnesium 1.9 mg/dL (1.6-2.3); Phosphorus 3.7 mg/dL (2.5-4.5); Potassium 3.8 mmol/L (3.5-5.1); Total Bilirubin 6.6 mg/dL (0.2-1.3); Total Protein 3.8 g/dL (6.3-8.2)
[2018-04-20 05:34] LABS: Glucose,Whole Blood 152 mg/dL (75-99)
[2018-04-20 07:34] LABS: INR 1.8 (<1.2)
[2018-04-20 07:35] LABS: Partial Thromboplastin Time 45.5 sec (22.0-30.0); Prothrombin Time 16.8 sec (9.0-12.0)
--- NOTE | 2018-04-20 08:15 | XR ---
EXAMINATION TYPE: XR chest 1V portable DATE OF EXAM: 04/20/2018 COMPARISON: 04/19/2018 HISTORY: ET tube TECHNIQUE: Single frontal view of the chest is obtained. FINDINGS: ET tube is now seen with the tip 2.5 cm above the guanako. Bilateral consolidation small le ft effusion. Heart size stable. Biapical pleural thickening. No overt failure. Perihilar subsegmental consolidation noted. PICC line noted. IMPRESSION: 1. Bilateral consolidation small effusion.
[2018-04-20 08:23] LABS: Glucose,Whole Blood 177 mg/dL (75-99)
[2018-04-20] MEDS: CALCIUM ACETATE 667 MG CAP PO SCH ×3 (08:24→17:24)
[2018-04-20] MEDS: MIDODRINE 5 MG TAB PO SCH ×3 (08:25→17:24)
[2018-04-20] MEDS: SODIUM BICARBONATE TAB 650 MG TAB PO SCH ×2 (08:25→22:59)
[2018-04-20] MEDS: CHLORHEXIDINE GLUCONATE 15 ML CUP MUCOUS MEM SCH ×2 (08:25→22:55)
[2018-04-20] MEDS: PANTOPRAZOLE 40 MG/10 ML VIAL IVP SCH (08:25)
[2018-04-20] MEDS: ALBUTEROL NEBULIZED 2.5 MG/3 ML INHALATION SCH ×3 (08:32→19:39)
[2018-04-20] MEDS: BUDESONIDE 0.5 MG/2 ML NEBU INHALATION SCH ×2 (08:32→19:39)
[2018-04-20] MEDS: PETROLATUM, WHITE OINT 50 GM TUBE TOPICAL SCH ×2 (08:33→22:59)
[2018-04-20] MEDS: NYSTATIN 100,000 UNIT/GM POWD 15 GM TOPICAL SCH ×2 (08:34→22:57)
[2018-04-20] MEDS: ZINC OXIDE 20% OINT 28.4 GM TUBE TOPICAL SCH ×3 (08:34→23:00)
--- NOTE | 2018-04-20 09:28 | P.PN ---
Subjective Progress Note Date: 04/19/18 This is 47 years old female with past medical history significant for sarcoidosis, morbid obesity, diabetes mellitus and multiple comorbidities, residence of residential who was recently discharged from [facility] presents today from residential with hypotension, slight tachycardia and hypoxia. In the emergency department blood pressure was below 90/60, heart rate in the 110 area, oxygen was in the mid 80s patient was started on oxygen and blood work showed elevated creatinine patient was sent to VQ scan which showed intermediate probability with limited examination due to motion factor and patient was started on heparin drip for assumption of pulmonary embolism. Patient is poor historian and unable to provide detailed information and was refusing care per nursing staff since admission to the floor including her medication and using her BiPAP on an as-needed basis. Patient currently is denying chest pain, shortness breath, nausea, vomiting, abdominal pain or productive cough 04/10: Received call today from the nursing staff the patient was really sick, blood pressure was low and was lethargic and sleeping well on BiPAP most the morning and lactic acid was elevated at 5.8 last evening.. She was unable to take her medications or eat this morning. She has increased edema. Patient has only had 150 mL of urine output overnight. She does have a Lopez catheter in. There was no IV access. Patient has been seen by by nephrology and cortisol level ordered along with Solu-Cortef and Lasix 60 mg IV once. Prednisone was discontinued. Patient was transferred into the intensive care unit and consult requested with Dr. Robin for intensive care management. Methadone dose changed to 50 mg daily which is her current dose at [facility]. Diarrhea has resolved. 04/11: Repeat chest x-ray reveals stable cardiomegaly. PICC placement. Patient has been seen by Dr. Colon and vancomycin and daptomycin started, continue Zosyn. Santyl to lower extremity cellulitis. Patient has been seen by Dr. Robin with concern for possible left lower lobe pneumonia, small left pleural effusion and dehydration. This morning, Dr. Moran ordered Lasix 40 mg IV once , IV dextrose 50% and regular insulin. Cortisol level was normal. Steroids are Solu-Medrol 60 mg every 6 hours. Midodrine was started yesterday for blood pressure support. Blood pressure is much improved today. Hemoglobin is 9.3, sodium 131 and potassium 5.3, creatinine 2.99. Capillary blood glucose running between 117 and 134. Lactic acid is now down to 1.9. Vancomycin level 25.6. Patient has been hemodynamically stable, afebrile. Patient has been on BiPAP and this morning is on nasal cannula, she remains lethargic but more alert from yesterday. Lopez catheter is in place. She continues to have lower extremity edema and now with weeping. No diarrhea. Patient has not had a bowel movement since 04/10. Urine output has been adequate at 50 mL per hour for the past 4 hours. She is complaining of nausea and abdominal discomfort for which lipase and CAT scan of the abdomen and pelvis ordered with oral contrast only. 04/12: Patient remains in intensive care unit. She has been hemodynamically stable and Midodrine will be discontinued. Lopez catheter remains in place with good urine output. She had a large bowel movement last evening and a small soft bowel movement today. Creatinine is 3.36 and BUN 17.. Heart rates have been elevated. Patient is more alert today from yesterday. GI consult added for elevated liver function tests and abdominal ultrasound ordered. 04/13: Cardiology consult was added yesterday due to tachycardia and patient was started on Lopressor 12.5 mg twice daily and hold for systolic blood pressure less than 90. TSH was 1.620. She has been on BiPAP during the night. Abdominal ultrasound reveals hepatomegaly correlate for hepatic steatosis, diffuse hepatocellular disease or hepatitis. There is ringing down artifact involving the gallbladder wall which can occasionally be seen with adenomyomatosis. Repeat liver function tests are increasing with total bilirubin 1.8, AST 82, ALT 54, alkaline phosphatase 278. GI is following. BUN 20 and creatinine 3.67, urine output low. She has epigastric tenderness and protonix added to omeprazole. Patient eating very little and refused nephro today. She is cleared to be transferred to Cardiac Step down. 04/14: Patient is more lethargic today. She is refusing to open her mouth. She has had no oral medications nor oral intake. Yesterday she ate a little bit of fluid and Magic cups. She is currently on BiPAP at FiO2 of 35%. Urine output by the time of evaluation was only 25-30 mL. Lasix 80 mg IV ordered by Dr. Moran. Patient may require hemodialysis if renal function does not improve. Today creatinine is at 3.99. Oral sodium bicarb will be switched over to drip. GI is following and has been asked to place Dobbhoff. Ammonia level came back normal at 18. Liver function tests are also worsening. 04/15: Patient is awake this morning on BiPAP. Very little communication but nods her head. She is complaining of nausea and abdominal pain. She had a bowel movement early this morning. Renal function is worse with creatinine of 4.9, hemoglobin 8.8. Nephrology has ordered consult with vascular for Cuba catheter placement with plan for hemodialysis today, Tuesday and Tuesday. Urine output has been less than 200 mL over the past 24 hours. Patient to continue on sodium bicarb drip. Nephrology is added back in mid drain. Dobbhoff to be placed today. 04/16: Patient remains in the intensive care unit. She was started on Levophed this morning for blood pressure. She is still on BiPAP. [place] catheter was placed by Dr. Winter yesterday to the right groin but she did have blood loss and was advised to hold off on dialysis. This is improved with no further bleeding. She continues to have scant amount of urine output. Plan from nephrology is for dialysis today she was resumed back on admitted draining yesterday. Bicarb drip is to be discontinued once dialysis is started. Patient is sleeping but awakens to verbal stimuli. She is able to nod to answer questions. She has generalized anasarca. Noted that she has gained 20 kg since admission. She has not had Dobbhoff placed by GI 04/17: Patient is off norepinephrine. Dobbhoff may be placed tonight. She does have a new wound to the right posterior knee area. She also has a skin tear to the left arm. She is currently on antibiotics in form of daptomycin and Zosyn which will be continued. She is undergoing hemodialysis. Hemoglobin is 7.2 with BUN 27 creatinine 3.58. Liver enzymes remain elevated. Hepatitis B surface antibody is reactive at 74. 04/18: Patient will be undergoing hemodialysis this morning. She was placed back on norepinephrine drip last evening and has been intermittently for blood pressure systolic of 80. She is able to answer yes and no to questions. Liver function tests continued to rise. has recommended transfer to [facility] but patient is not candidate for biopsy. We have known in the past that the sister has been very resistant to her transferring out of [place] to [facility]. She now has an NG tube in place and receiving nephro that will be at goal liters today. Hepatitis B surface antibody was reactive at 74. There is concern that she is not been receiving methadone but this has been clarified by pain management that this can be crushed and put an NG tube which will be continued. White count is 14.8, hemoglobin 7.4, INR 1.5. BUN 20 creatinine 2.84 which is improved over the past couple days. AST 663, ALT 212, alkaline phosphatase 392. Total bilirubin is 4.9. Capillary blood glucose running between 130 and 166. We'll plan to monitor for at least another 24 hours and then discuss possible transfer with the family. Records reviewed from [facility]. 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 In 2016, PFT showed mild restriction with normal diffusion capacity. No response to bronchodilators. She had good response to Enbrel for 3 years but had to be stopped due to insurance company authorization. 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 She was not evaluated by neurosurgery and she had improvement of her mental status. MRI of the spine revealed fatty atrophy of the paraspinal musculature. No significant canal compromise or cord compression. Limited evaluation of right brachial plexus with no obvious abnormality. 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 Plan: wean prednisone down by 5 mg every week to end point of 20 mg, follow up with Dr. Gar[facility] April 25 at 1:15 and neurology follow-up with Dr. Garzon on April 03 at 9 AM. 04/19: Patient is more unresponsive today and remains on BiPAP and tachypneic. Patient was started on a Narcan drip last evening and was slightly more awake after this was started but then mental status declined. She was placed back on norepinephrine possibly related to clonidine patch. She is receiving 2 units of packed RBCs this morning for hemoglobin of 5.9. Dialysis was attempted this morning but due to hypotension this was not completed. She was started on a bicarb drip and nephrology adding an oral bicarb as well. Plan to attempt hemodialysis tomorrow. She has had scant urine output. She is tolerating tube feedings at goal. Limited echocardiogram revealed EF 60-65%, mild tricuspid regurgitation and moderate pulmonary hypertension. GI is recommending transfer to tertiary care center have PT/INR worsens. INR 1.6. AST 829, ALT 262, alkaline phosphatase 420, albumin 2.3. We did order 3 doses of albumin yesterday and will repeat today. Dr. Robin attempted a right IJ triple-lumen catheter and has been ordered for PICC line placement. CAT scan of the abdomen and pelvis without contrast showed fatty infiltration of the liver. Nonobstructive right renal calculi. Abdomen pelvis unchanged. Extensive subcutaneous edema bilaterally that is probably increased. No retroperitoneal hemorrhage. White count jumped to 28.7. Dr. Colon has discontinued daptomycin as treatment is completed for VRE UTI. Zosyn started for new left lower lobe infiltrate, possible aspiration she was vomiting yesterday. Cortisol level and ACTH will be checked in the morning Review Of Systems: Constitutional: No fever, no chills, no night sweats. +weakness, +fatigue, + lethargy. + daytime sleepiness. EENT: No headache. No epistaxis. No sore throat. Lungs: + shortness of breath, + cough, no sputum production. No wheezing. Cardiovascular: No chest pain, + lower extremity edema. No palpitations. No paroxysmal nocturnal dyspnea. No orthopnea. No lightheadedness or dizziness. No syncopal episodes. Abdominal: +abdominal pain. No nausea, +vomiting, resolved. No diarrhea, resolved. No constipation. No bloody or tarry stools. + loss of appetite. Genitourinary: No dysuria, increased frequency, urgency. + urinary retention. Musculoskeletal: + myalgias. + muscle weakness, + gait dysfunction. Integumentary: No rash or pruritus. + wheeping bilateral lower legs and bilateral arms Neurological: + mental status change. Endocrine: + abnormal blood sugars. Objective - Vital Signs Vital signs: Vital Signs Temp 98.7 F 04/19/18 04:00 Pulse 92 04/19/18 09:57 Resp 38 H 04/19/18 06:30 BP 144/112 04/18/18 17:40 Pulse Ox 100 04/19/18 06:30 Intake & Output 04/18/18 04/19/18 04/19/18 18:59 06:59 18:59 Intake Total 0476.744 9866 151.778 Output Total 114 17 Balance 4343.058 9468 151.778 Weight 184.7 kg Intake: IV 1386 DAPTOmycin 600 mg In 50 Sodium Chloride 0.9% 50 ml @ 100 mls/hr IVPB Q48H [facility] Rx#:[id number] Piperacillin-Tazobactam 3 100 .375 gm In Dextrose/Water 1 50ml.bag @ 12.5 mls/hr IVPB Q12HR [facility] Rx#: [id number] ns 1200 pressure bag 36 Intake, IV Titration 1329.476 289 151.778 Amount Albumin Human 25% 50 ml 50 In Empty Bag 1 bag @ 100 mls/hr IVPB Q12H [facility] Rx#: [id number] Naloxone 4 mg In Sodium 89 Chloride 0.9% 100 ml @ 0. 6 MG/HR 15 mls/hr IV . Q6H40M [facility] Rx#:[id number] Norepinephrine 16 mg In 29.476 151.778 Sodium Chloride 0.9% 250 ml @ Titrate IV .Q0M [facility] Rx#:[id number] Piperacillin-Tazobactam 3 50 .375 gm In Sodium Chloride 0.9% 100 ml @ 25 mls/hr IVPB Q12HR [facility] Rx #:[id number] Piperacillin-Tazobactam 3 100 .375 gm In Sodium Chloride 0.9% 100 ml @ 25 mls/hr IVPB Q8HR [facility] Rx# :[id number] Sodium Chloride 0.9% 1, 1200 100 000 ml @ 100 mls/hr IV . Q10H [facility] Rx#:[id number] Tube Feeding 360 Other 210 30 Output: Urine 14 17 Oral Regurgitation 100 Other: Voiding Method Indwelling Catheter Indwelling Catheter # Bowel Movements 1 1 ABP, PAP, CO, CI - Last Documented Arterial Blood Pressure 108/58 - Exam Gen: This is a morbidly obese 47-year-old female. She is in ICU bed and appears to be in moderate respiratory distress. She is lethargic. HEENT: Head is atraumatic, normocephalic. Pupils equal, round. Sclerae is anicteric. Hearing grossly normal. NECK: Supple. No JVD. No lymphadenopathy. No thyromegaly. LUNGS: Diminished bilaterally. Clear to auscultation. No wheezes or rhonchi. No intercostal retractions. HEART: Regular rate and rhythm. No murmur. ABDOMEN: Morbidly obese. Generalized anasarca Soft. Bowel sounds are present. No masses. Positive epigastric tenderness. Lopez catheter draining clear benjy urine, scant amount. EXTREMITIES: 2+ pedal edema with serous weeping. No calf tenderness. +wound posterior Rt leg with significant weeping of serous fluid from her right leg, left leg, groins, bilateral arms. NEUROLOGICAL: Patient is unresponsive. Generalized severe weakness. - Labs CBC & Chem 7: 04/20/18 04:35 04/20/18 04:35 Labs: Abnormal Lab Results - Last 24 Hours (Table) 04/17/18 04/18/18 04/18/18 Range/Units 15:30 11:12 11:45 WBC (3.8-10.6) k/uL RBC (3.80-5.40) m/uL Hgb (11.4-16.0) gm/dL Hct (34.0-46.0) % RDW (11.5-15.5) % Plt Count (150-450) k/uL Neutrophils # (Manual) (1.3-7.7) k/uL Metamyelocytes # (Man) (0) k/uL Nucleated RBCs (0-0) /100 WBC PT (9.0-12.0) sec INR (<1.2) APTT (22.0-30.0) sec ABG pH (7.35-7.45) ABG pCO2 (35-45) mmHg ABG pO2 139 H (83-108) mmHg ABG HCO3 (21-25) mmol/L ABG Total CO2 25 H (19-24) mmol/L ABG O2 Saturation 99.8 H (94-97) % Carbon Dioxide (22-30) mmol/L Creatinine (0.52-1.04) mg/dL POC Glucose (mg/dL) 161 H (75-99) mg/dL Calcium (8.4-10.2) mg/dL Total Bilirubin (0.2-1.3) mg/dL AST (14-36) U/L ALT (9-52) U/L Alkaline Phosphatase (38-126) U/L Total Protein (6.3-8.2) g/dL Albumin (3.5-5.0) g/dL Crossmatch See Detail 04/18/18 04/18/18 04/19/18 Range/Units 18:50 19:07 02:58 WBC (3.8-10.6) k/uL RBC (3.80-5.40) m/uL Hgb (11.4-16.0) gm/dL Hct (34.0-46.0) % RDW (11.5-15.5) % Plt Count (150-450) k/uL Neutrophils # (Manual) (1.3-7.7) k/uL Metamyelocytes # (Man) (0) k/uL Nucleated RBCs (0-0) /100 WBC PT (9.0-12.0) sec INR (<1.2) APTT (22.0-30.0) sec ABG pH 7.48 H (7.35-7.45) ABG pCO2 20 L (35-45) mmHg ABG pO2 114 H 182 H (83-108) mmHg ABG HCO3 15 L (21-25) mmol/L ABG Total CO2 25 H 15 L (19-24) mmol/L ABG O2 Saturation 100.0 H 100.0 H (94-97) % Carbon Dioxide (22-30) mmol/L Creatinine (0.52-1.04) mg/dL POC Glucose (mg/dL) 191 H (75-99) mg/dL Calcium (8.4-10.2) mg/dL Total Bilirubin (0.2-1.3) mg/dL AST (14-36) U/L ALT (9-52) U/L Alkaline Phosphatase (38-126) U/L Total Protein (6.3-8.2) g/dL Albumin (3.5-5.0) g/dL Crossmatch 04/19/18 04/19/18 04/19/18 Range/Units 04:19 04:19 05:51 WBC 21.8 H (3.8-10.6) k/uL RBC 1.95 L (3.80-5.40) m/uL Hgb 5.9 L* D (11.4-16.0) gm/dL Hct 18.4 L* (34.0-46.0) % RDW 18.8 H (11.5-15.5) % Plt Count 127 L (150-450) k/uL Neutrophils # (Manual) 17.00 H (1.3-7.7) k/uL Metamyelocytes # (Man) 0.44 H (0) k/uL Nucleated RBCs 19 H (0-0) /100 WBC PT 14.5 H (9.0-12.0) sec INR 1.6 H (<1.2) APTT 31.4 H (22.0-30.0) sec ABG pH (7.35-7.45) ABG pCO2 (35-45) mmHg ABG pO2 (83-108) mmHg ABG HCO3 (21-25) mmol/L ABG Total CO2 (19-24) mmol/L ABG O2 Saturation (94-97) % Carbon Dioxide 12 L (22-30) mmol/L Creatinine 2.39 H (0.52-1.04) mg/dL POC Glucose (mg/dL) (75-99) mg/dL Calcium 6.6 L (8.4-10.2) mg/dL Total Bilirubin 5.3 H (0.2-1.3) mg/dL AST 829 H (14-36) U/L ALT 262 H (9-52) U/L Alkaline Phosphatase 420 H (38-126) U/L Total Protein 3.9 L (6.3-8.2) g/dL Albumin 2.3 L (3.5-5.0) g/dL Crossmatch 04/19/18 04/19/18 Range/Units 06:31 08:19 WBC (3.8-10.6) k/uL RBC (3.80-5.40) m/uL Hgb (11.4-16.0) gm/dL Hct (34.0-46.0) % RDW (11.5-15.5) % Plt Count (150-450) k/uL Neutrophils # (Manual) (1.3-7.7) k/uL Metamyelocytes # (Man) (0) k/uL Nucleated RBCs (0-0) /100 WBC PT (9.0-12.0) sec INR (<1.2) APTT (22.0-30.0) sec ABG pH 7.26 L (7.35-7.45) ABG pCO2 26 L (35-45) mmHg ABG pO2 169 H (83-108) mmHg ABG HCO3 12 L (21-25) mmol/L ABG Total CO2 12 L (19-24) mmol/L ABG O2 Saturation 99.2 H (94-97) % Carbon Dioxide (22-30) mmol/L Creatinine (0.52-1.04) mg/dL POC Glucose (mg/dL) 66 L (75-99) mg/dL Calcium (8.4-10.2) mg/dL Total Bilirubin (0.2-1.3) mg/dL AST (14-36) U/L ALT (9-52) U/L Alkaline Phosphatase (38-126) U/L Total Protein (6.3-8.2) g/dL Albumin (3.5-5.0) g/dL Crossmatch Assessment and Plan Plan: 1. Sepsis with septic shock secondary to urinary tract infection with lactic acidosis. Intensive care unit management. PICC line ordered for IV access. Consults with Dr. Robin and Dr. Colon appreciated. Patient completed course of daptomycin. IVF per Dr. Moran 2. Intermediate probability of pulmonary embolism ruled out. Pulmonary medicine is following 3. Acute respiratory failure on chronic respiratory failure with hypoxia. Continue albuterol nebulizer treatments every 6 hours, DuoNeb treatments every 4 hours as needed, Pulmicort twice daily, Solu-Medrol. 4. Morbid obesity with BMI of 59. 5. Neurogenic bladder with incontinence. Urinary retention requiring Lopez catheter placement. 6. Diabetes mellitus type 2 insulin-dependent. Metformin on hold. NovoLog scale before meals and at bedtime. 7. Debility and deconditioning. 8. Dehydration. 9. Acute kidney injury and ATN likely secondary to dehydration with hyperkalemia. Consult with nephrology appreciated. [place] catheter has been placed by Dr. Winter. Patient on hemodialysis, bicarb drip, oral bicarb. Admitted during resumed and off Levofed. 10. Sarcoidosis following with [facility] on daily dose of steroids. 11. Hyperkalemia 12. Metabolic encephalopathy secondary to sepsis, respiratory failure, liver failure. 13. Chronic pain. Methadone discontinued and patient was placed on Narcan drip. 14. Abdominal pain with worsening liver function tests mostly secondary to heart failure and congestion. 15. Severe protein calorie malnutrition. NG tube feedings. Dietitian is following. Albumin IV ordered. 16. Metabolic acidosis. Sodium bicarb oral and IV. 17. GERD and possible gastritis. Continue Pepcid and Protonix 18. Aspiration pneumonia. Continue Zosyn. Dr. adorno is following. 19. Multiorgan failure with respiratory, renal and liver failure. CODE STATUS: Full code Prognosis guarded Discharge plan: Return to [facility] as long-term resident. Patient is known to have guardian. (Sister and father) Impression and plan of care have been directed as dictated by the signing physician. Jeanne Roca nurse practitioner acting as scribe for signing physician.
--- NOTE | 2018-04-20 09:48 | P.PN ---
Subjective Progress Note Date: 04/20/18 Interval history: 04/18/18:Patient is being seen examined and evaluated today on rounds. She continues to be in the ICU. She continues on the BiPAP and is tolerating that well. Currently she is undergoing dialysis and potentially having 2 L of fluid to be pulled off. She has been on and off of vasopressors in the last 24 hours. Currently the patient was put back on Levophed. She currently is on tube feeds and is tolerating that well. She continues on IV steroids. She is afebrile, no further complaints. Her labs from this morning are reviewed. Her AST has increased to 663, a LT increased to 212, her bilirubin increased to 4.9 , BUN is 20, creatinine is 2.84, hemoglobin is stable at 7.4, daily after meals 14.8. Her care team follows her closely in collaboration including internal medicine, nephrology, pulmonary, infectious disease, intensivists, GI physician , cardiology, vascular surgery, and recently added pain management. 04/19/18: Patient is being seen examined and evaluated on rounds while in the intensive care unit today. PE patient was put on a Narcan drip yesterday. According to the nurses staff was slightly more awake after that was initiated. She continues on Levophed at 5 mics. The patient will be starting a bicarb drip and will be getting 2 units of packed red blood cells. Her labs this morning did reveal a hemoglobin of 5.9 and yesterday was 7.4. She also had ABGs from this morning and it revealed a pH of 7.26, pCO2 26, pO2 169 and HCO3 of 12. Dialysis was attempted this morning however the patient became extremely hypotensive and the fluid had to be given back to her. Currently she is in a positive fluid balance. She has had minimal scant urine output. She has been tolerating her tube feedings. She continues on BiPAP, is tachypnea. She did under go an arterial line placement yesterday. Chest x-ray from this morning is currently pending. LFT continue to climb, AST increased to 829 a ALT 262, alkaline phosphatase 420, albumin is 2.3 receiving albumin infusions. 04/20/18- patient is being seen examined and evaluated today while on rounds in the intensive care unit. The patient was obtunded and went into respiratory distress yesterday and was subsequently intubated. She also did receive a central line placement yesterday. Currently she is on mechanical ventilation with propofol for sedation. Current ventilator settings are assist-control mode with a respiratory rate of 24, tidal volume of 500, FiO2 70% and a PEEP of 5. Blood gases from this morning did reveal a pH of 7.44, pCO2 32, pO2 284, HCO3 22. She continues on Levophed drip at 4 mics, propofol is at 30 mics. She also is on the bicarb drip. Liver function tests did reveal this morning AST increased to 840, ALT increased to 289, alkaline phosphorus 395 and a bilirubin increased to 6.6. Her BUN is 20, creatinine is 2.34. She was unable to undergo dialysis yesterday. Plan is to receive dialysis today. Her hemoglobin yesterday was 5.9. Today it is increased to 7.9 she did have 2 units of packed red blood cells yesterday. Her chest x-ray from this morning is revealed continues to show bilateral consolidation with small effusions. She did undergo a CT of the abdomen and pelvis yesterday which did show fatty infiltration of the liver, nonobstructing right renal calculi, extensive subcutaneous edema bilaterally that is increased compared to last exam no evidence of retroperitoneal hemorrhages. Her urine output continues to be minimal. Per the nursing notes there is a family meeting planned for 2017 at 11 AM to discuss patient's prognosis and goals of care. Objective - Vital Signs Vital signs: Vital Signs Temp 98.3 F 04/20/18 08:00 Pulse 94 04/20/18 09:00 Resp 27 H 04/20/18 09:00 BP 127/68 04/19/18 17:30 Pulse Ox 99 04/20/18 09:00 Intake & Output 04/19/18 04/20/18 04/20/18 18:59 06:59 18:59 Intake Total 1340.722 191.09 Output Total 22 10 Balance 1318.722 181.09 Weight 184.7 kg 167.8 kg Intake: IV 783 533 88 Dextrose 5% in Water 1, 200 485 70 000 ml @ 100 mls/hr IV . [id number] LESLIE with Sodium Bicarb (1 Meq/ml) 150 ml Rx#:[id number] ns 550 pressure bag 33 48 18 Intake, IV Titration 384.444 407.722 13.09 Amount Albumin Human 25% 50 ml 50 In Empty Bag 1 bag @ 100 mls/hr IVPB Q12H LESLIE Rx#: [id number] Naloxone 4 mg In Sodium 200 94.75 Chloride 0.9% 100 ml @ 0. 6 MG/HR 15 mls/hr IV . Q6H40M LESLIE Rx#:[id number] Norepinephrine 16 mg In 184.444 13.09 Sodium Chloride 0.9% 250 ml @ Titrate IV .Q0M LESLIE Rx#:[id number] Piperacillin-Tazobactam 3 100 .375 gm In Sodium Chloride 0.9% 100 ml @ 25 mls/hr IVPB Q8HR LESLIE Rx# :[id number] Propofol 1,000 mg In 162.972 Empty Bag 1 bag @ Titrate IV .Q0M LESLIE Rx#: [id number] Oral 30 Tube Feeding 140 370 90 Blood Product 620 Rc As-1 Unit 310 [id number] Rc Pheresis As-3 Unit 310 [id number] Other 90 Output: Urine 22 10 Other: Voiding Method Indwelling Catheter Indwelling Catheter Indwelling Catheter ABP, PAP, CO, CI - Last Documented Arterial Blood Pressure 105/59 - Exam GENERAL EXAM: On mechanical ventilation with propofol for sedation HEAD: Normocephalic. EYES: Normal reaction of pupils, equal size. NOSE: Clear with pink turbinates. THROAT: No erythema or exudates. NECK: No masses, no JVD. CHEST: No chest wall deformity. LUNGS: Decreased breath sounds throughout, on mechanical ventilation CVS: S1 and S2 normal with no audible mumurs, regular rhythm. ABDOMEN: No hepatosplenomegaly, normal bowel sounds, no guarding or rigidity. EXTREMITIES: +2 bilateral lower extremity edema noted, pedal pulses palpable. Bilateral Gurwinder wraps CENTRAL NERVOUS SYSTEM: On mechanical ventilation with propofol for sedation. - Labs CBC & Chem 7: 04/20/18 04:35 04/20/18 04:35 Labs: Abnormal Lab Results - Last 24 Hours (Table) 04/17/18 04/18/18 04/19/18 Range/Units 15:30 04:35 12:10 WBC (3.8-10.6) k/uL RBC (3.80-5.40) m/uL Hgb (11.4-16.0) gm/dL Hct (34.0-46.0) % RDW (11.5-15.5) % Plt Count (150-450) k/uL PT (9.0-12.0) sec INR (<1.2) APTT (22.0-30.0) sec ABG pH (7.35-7.45) ABG pCO2 (35-45) mmHg ABG pO2 (83-108) mmHg ABG HCO3 (21-25) mmol/L ABG Total CO2 (19-24) mmol/L ABG O2 Saturation (94-97) % Carbon Dioxide (22-30) mmol/L BUN (7-17) mg/dL Creatinine (0.52-1.04) mg/dL Glucose (74-99) mg/dL POC Glucose (mg/dL) 66 L (75-99) mg/dL Calcium (8.4-10.2) mg/dL Total Bilirubin (0.2-1.3) mg/dL AST (14-36) U/L ALT (9-52) U/L Alkaline Phosphatase (38-126) U/L Total Protein (6.3-8.2) g/dL Albumin (3.5-5.0) g/dL Ceruloplasmin 71.3 H (20.0-60.0) mg/dL Tumor Marker AFP 11.2 H (0.0-7.9) ng/mL Crossmatch See Detail 04/19/18 04/19/18 04/19/18 Range/Units 16:57 21:22 22:46 WBC (3.8-10.6) k/uL RBC (3.80-5.40) m/uL Hgb (11.4-16.0) gm/dL Hct (34.0-46.0) % RDW (11.5-15.5) % Plt Count (150-450) k/uL PT (9.0-12.0) sec INR (<1.2) APTT (22.0-30.0) sec ABG pH 7.51 H 7.50 H (7.35-7.45) ABG pCO2 19 L* 22 L 30 L (35-45) mmHg ABG pO2 181 H 163 H (83-108) mmHg ABG HCO3 15 L 17 L 19 L (21-25) mmol/L ABG Total CO2 15 L 18 L (19-24) mmol/L ABG O2 Saturation 100.0 H 100.0 H 99.2 H (94-97) % Carbon Dioxide (22-30) mmol/L BUN (7-17) mg/dL Creatinine (0.52-1.04) mg/dL Glucose (74-99) mg/dL POC Glucose (mg/dL) (75-99) mg/dL Calcium (8.4-10.2) mg/dL Total Bilirubin (0.2-1.3) mg/dL AST (14-36) U/L ALT (9-52) U/L Alkaline Phosphatase (38-126) U/L Total Protein (6.3-8.2) g/dL Albumin (3.5-5.0) g/dL Ceruloplasmin (20.0-60.0) mg/dL Tumor Marker AFP (0.0-7.9) ng/mL Crossmatch 04/19/18 04/20/18 04/20/18 Range/Units Unknown 00:36 04:35 WBC 28.7 H 26.6 H (3.8-10.6) k/uL RBC 2.66 L 2.43 L (3.80-5.40) m/uL Hgb 8.3 L D 7.9 L (11.4-16.0) gm/dL Hct 23.9 L 22.0 L (34.0-46.0) % RDW 16.7 H 17.4 H (11.5-15.5) % Plt Count 126 L 124 L (150-450) k/uL PT (9.0-12.0) sec INR (<1.2) APTT (22.0-30.0) sec ABG pH (7.35-7.45) ABG pCO2 (35-45) mmHg ABG pO2 (83-108) mmHg ABG HCO3 (21-25) mmol/L ABG Total CO2 (19-24) mmol/L ABG O2 Saturation (94-97) % Carbon Dioxide (22-30) mmol/L BUN (7-17) mg/dL Creatinine (0.52-1.04) mg/dL Glucose (74-99) mg/dL POC Glucose (mg/dL) 122 H (75-99) mg/dL Calcium (8.4-10.2) mg/dL Total Bilirubin (0.2-1.3) mg/dL AST (14-36) U/L ALT (9-52) U/L Alkaline Phosphatase (38-126) U/L Total Protein (6.3-8.2) g/dL Albumin (3.5-5.0) g/dL Ceruloplasmin (20.0-60.0) mg/dL Tumor Marker AFP (0.0-7.9) ng/mL Crossmatch 04/20/18 04/20/18 04/20/18 Range/Units 04:35 04:35 04:41 WBC (3.8-10.6) k/uL RBC (3.80-5.40) m/uL Hgb (11.4-16.0) gm/dL Hct (34.0-46.0) % RDW (11.5-15.5) % Plt Count (150-450) k/uL PT 16.8 H (9.0-12.0) sec INR 1.8 H (<1.2) APTT 45.5 H (22.0-30.0) sec ABG pH (7.35-7.45) ABG pCO2 32 L (35-45) mmHg ABG pO2 284 H (83-108) mmHg ABG HCO3 (21-25) mmol/L ABG Total CO2 (19-24) mmol/L ABG O2 Saturation 100.0 H (94-97) % Carbon Dioxide 19 L (22-30) mmol/L BUN 20 H (7-17) mg/dL Creatinine 2.34 H (0.52-1.04) mg/dL Glucose 129 H (74-99) mg/dL POC Glucose (mg/dL) (75-99) mg/dL Calcium 6.8 L (8.4-10.2) mg/dL Total Bilirubin 6.6 H (0.2-1.3) mg/dL AST 840 H (14-36) U/L ALT 289 H (9-52) U/L Alkaline Phosphatase 395 H (38-126) U/L Total Protein 3.8 L (6.3-8.2) g/dL Albumin 2.3 L (3.5-5.0) g/dL Ceruloplasmin (20.0-60.0) mg/dL Tumor Marker AFP (0.0-7.9) ng/mL Crossmatch 04/20/18 04/20/18 Range/Units 05:18 08:11 WBC (3.8-10.6) k/uL RBC (3.80-5.40) m/uL Hgb (11.4-16.0) gm/dL Hct (34.0-46.0) % RDW (11.5-15.5) % Plt Count (150-450) k/uL PT (9.0-12.0) sec INR (<1.2) APTT (22.0-30.0) sec ABG pH (7.35-7.45) ABG pCO2 (35-45) mmHg ABG pO2 (83-108) mmHg ABG HCO3 (21-25) mmol/L ABG Total CO2 (19-24) mmol/L ABG O2 Saturation (94-97) % Carbon Dioxide (22-30) mmol/L BUN (7-17) mg/dL Creatinine (0.52-1.04) mg/dL Glucose (74-99) mg/dL POC Glucose (mg/dL) 152 H 177 H (75-99) mg/dL Calcium (8.4-10.2) mg/dL Total Bilirubin (0.2-1.3) mg/dL AST (14-36) U/L ALT (9-52) U/L Alkaline Phosphatase (38-126) U/L Total Protein (6.3-8.2) g/dL Albumin (3.5-5.0) g/dL Ceruloplasmin (20.0-60.0) mg/dL Tumor Marker AFP (0.0-7.9) ng/mL Crossmatch Assessment and Plan Assessment: Assessment Acute on chronic hypoxic respiratory failure Hypoventilation syndrome Possible central versus obstructive sleep apnea Sarcoidosis Chronic severe persistent asthma Acute on chronic renal failure on hemodialysis Morbid obesity Elevated liver enzymes Severe sepsis with septic shock related to UTI and a component of bilateral lower extremity cellulitis Possible shock liver Severe anemia of chronic disease and liver failure Plan Continue on mechanical ventilation with propofol for sedation Medications have been reviewed and will be continued as ordered. IV steroid taper and antibiotics Vasopressors for hypotension wean as tolerated s/p total of 3 units of packed red blood cells this admission Initiated on bicarb drip Continue with pulmonary hygiene, coughing and deep breathing exercises, and supportive care. Supplemental oxygen to maintain oxygen saturations of 92% or better. Continue nebulizer treatments. Hemodialysis per nephrology GI and DVT prophylaxis. Collaborative care with internal medicine, nephrology, pulmonary, infectious disease, endodontics dentist, GI services, cardiology, vascular surgery and pain management, appreciate input and recommendations We will continue to monitor labs/results and adjust treatment as necessary. Further recommendations pending. I, the signing physician performed an examination of the patient, discussed and directed their management with the nurse practitioner. I have reviewed the nurse practitioner's note and agree with the documented findings, orders and plan of care.
[2018-04-20] MEDS: DEXTROSE 5% IN WATER 1,000 ML with SODIUM BICARB (1 MEQ/ML) 150 ML IV SCH (11:25)
[2018-04-20 12:24] LABS: Glucose,Whole Blood 245 mg/dL (75-99)
--- NOTE | 2018-04-20 13:00 | P.PN ---
Subjective Patient is seen in follow for acute kidney injury. Her baseline creatinine is 1. Renal function worsened this admission with creatinine up to 4.55 on April 16. Patient presented to the hospital due to hypotension with systolic blood pressure in the 60s at the ECF. Patient was transferred to the ICU with persistent hypotension and lactic acidosis. She is on IV steroids. Cortisol level normal. Remains oliguric. She was started on hemodialysis on April 16. She is currently on 8 mics of Levophed. She also has been started on tube feeds. Yesterday the patient became quite hypotensive during dialysis and required to 50 mics of Levophed. Therefore the treatment was cut short. She scheduled to undergo another treatment of dialysis today. Bicarb drip has been discontinued. Bicarb is up to 19 today. She also received 2 units of blood yesterday. Hemoglobin better. Patient was also intubated yesterday. Vital signs are stable. General: The patient appeared well nourished and normally developed. HEENT: Head exam is unremarkable. Neck is without jugular venous distension. LUNGS: Breath sounds decreased. HEART: Rate and Rhythm are regular. First and second heart sounds normal. No murmurs, rubs or gallops. ABDOMEN: Abdominal exam reveals normal bowel sounds. Non-tender and non- distended. No evidence of peritonitis. EXTREMITITES: 2+ edema. Objective - Vital Signs Vital signs: Vital Signs Temp 98.3 F 04/20/18 08:00 Pulse 98 04/20/18 11:00 Resp 26 H 04/20/18 11:00 BP 127/68 04/19/18 17:30 Pulse Ox 98 04/20/18 11:00 Intake & Output 04/19/18 04/20/18 04/20/18 18:59 06:59 18:59 Intake Total 1340.722 333.09 Output Total 22 10 Balance 1318.722 323.09 Weight 184.7 kg 167.8 kg Intake: IV 783 533 100 Dextrose 5% in Water 1, 200 485 70 000 ml @ 100 mls/hr IV . [id number] LESLIE with Sodium Bicarb (1 Meq/ml) 150 ml Rx#:[id number] ns 550 pressure bag 33 48 30 Intake, IV Titration 384.444 407.722 113.09 Amount Albumin Human 25% 50 ml 50 In Empty Bag 1 bag @ 100 mls/hr IVPB Q12H LESLIE Rx#: [id number] Naloxone 4 mg In Sodium 200 94.75 Chloride 0.9% 100 ml @ 0. 6 MG/HR 15 mls/hr IV . Q6H40M LESLIE Rx#:[id number] Norepinephrine 16 mg In 184.444 13.09 Sodium Chloride 0.9% 250 ml @ Titrate IV .Q0M LESLIE Rx#:[id number] Piperacillin-Tazobactam 3 100 .375 gm In Sodium Chloride 0.9% 100 ml @ 25 mls/hr IVPB Q8HR LES[facility] Rx# :[id number] Propofol 1,000 mg In 162.972 100 Empty Bag 1 bag @ Titrate IV .Q0M LESLIE Rx#: [id number] Oral 30 Tube Feeding 140 370 120 Blood Product 620 Rc As-1 Unit 310 [id number] Rc Pheresis As-3 Unit 310 [id number] Other 90 Output: Urine 22 10 Other: Voiding Method Indwelling Catheter Indwelling Catheter Indwelling Catheter ABP, PAP, CO, CI - Last Documented Arterial Blood Pressure 98/62 - Labs CBC & Chem 7: 04/20/18 04:35 04/20/18 04:35 Labs: Abnormal Lab Results - Last 24 Hours (Table) 04/17/18 04/18/18 04/19/18 Range/Units 15:30 04:35 12:10 WBC (3.8-10.6) k/uL RBC (3.80-5.40) m/uL Hgb (11.4-16.0) gm/dL Hct (34.0-46.0) % RDW (11.5-15.5) % Plt Count (150-450) k/uL PT (9.0-12.0) sec INR (<1.2) APTT (22.0-30.0) sec ABG pH (7.35-7.45) ABG pCO2 (35-45) mmHg ABG pO2 (83-108) mmHg ABG HCO3 (21-25) mmol/L ABG Total CO2 (19-24) mmol/L ABG O2 Saturation (94-97) % Carbon Dioxide (22-30) mmol/L BUN (7-17) mg/dL Creatinine (0.52-1.04) mg/dL Glucose (74-99) mg/dL POC Glucose (mg/dL) 66 L (75-99) mg/dL Calcium (8.4-10.2) mg/dL Total Bilirubin (0.2-1.3) mg/dL AST (14-36) U/L ALT (9-52) U/L Alkaline Phosphatase (38-126) U/L Total Protein (6.3-8.2) g/dL Albumin (3.5-5.0) g/dL Ceruloplasmin 71.3 H (20.0-60.0) mg/dL Crossmatch See Detail 04/19/18 04/19/18 04/19/18 Range/Units 16:57 21:22 22:46 WBC (3.8-10.6) k/uL RBC (3.80-5.40) m/uL Hgb (11.4-16.0) gm/dL Hct (34.0-46.0) % RDW (11.5-15.5) % Plt Count (150-450) k/uL PT (9.0-12.0) sec INR (<1.2) APTT (22.0-30.0) sec ABG pH 7.51 H 7.50 H (7.35-7.45) ABG pCO2 19 L* 22 L 30 L (35-45) mmHg ABG pO2 181 H 163 H (83-108) mmHg ABG HCO3 15 L 17 L 19 L (21-25) mmol/L ABG Total CO2 15 L 18 L (19-24) mmol/L ABG O2 Saturation 100.0 H 100.0 H 99.2 H (94-97) % Carbon Dioxide (22-30) mmol/L BUN (7-17) mg/dL Creatinine (0.52-1.04) mg/dL Glucose (74-99) mg/dL POC Glucose (mg/dL) (75-99) mg/dL Calcium (8.4-10.2) mg/dL Total Bilirubin (0.2-1.3) mg/dL AST (14-36) U/L ALT (9-52) U/L Alkaline Phosphatase (38-126) U/L Total Protein (6.3-8.2) g/dL Albumin (3.5-5.0) g/dL Ceruloplasmin (20.0-60.0) mg/dL Crossmatch 04/19/18 04/20/18 04/20/18 Range/Units Unknown 00:36 04:35 WBC 28.7 H 26.6 H (3.8-10.6) k/uL RBC 2.66 L 2.43 L (3.80-5.40) m/uL Hgb 8.3 L D 7.9 L (11.4-16.0) gm/dL Hct 23.9 L 22.0 L (34.0-46.0) % RDW 16.7 H 17.4 H (11.5-15.5) % Plt Count 126 L 124 L (150-450) k/uL PT (9.0-12.0) sec INR (<1.2) APTT (22.0-30.0) sec ABG pH (7.35-7.45) ABG pCO2 (35-45) mmHg ABG pO2 (83-108) mmHg ABG HCO3 (21-25) mmol/L ABG Total CO2 (19-24) mmol/L ABG O2 Saturation (94-97) % Carbon Dioxide (22-30) mmol/L BUN (7-17) mg/dL Creatinine (0.52-1.04) mg/dL Glucose (74-99) mg/dL POC Glucose (mg/dL) 122 H (75-99) mg/dL Calcium (8.4-10.2) mg/dL Total Bilirubin (0.2-1.3) mg/dL AST (14-36) U/L ALT (9-52) U/L Alkaline Phosphatase (38-126) U/L Total Protein (6.3-8.2) g/dL Albumin (3.5-5.0) g/dL Ceruloplasmin (20.0-60.0) mg/dL Crossmatch 04/20/18 04/20/18 04/20/18 Range/Units 04:35 04:35 04:41 WBC (3.8-10.6) k/uL RBC (3.80-5.40) m/uL Hgb (11.4-16.0) gm/dL Hct (34.0-46.0) % RDW (11.5-15.5) % Plt Count (150-450) k/uL PT 16.8 H (9.0-12.0) sec INR 1.8 H (<1.2) APTT 45.5 H (22.0-30.0) sec ABG pH (7.35-7.45) ABG pCO2 32 L (35-45) mmHg ABG pO2 284 H (83-108) mmHg ABG HCO3 (21-25) mmol/L ABG Total CO2 (19-24) mmol/L ABG O2 Saturation 100.0 H (94-97) % Carbon Dioxide 19 L (22-30) mmol/L BUN 20 H (7-17) mg/dL Creatinine 2.34 H (0.52-1.04) mg/dL Glucose 129 H (74-99) mg/dL POC Glucose (mg/dL) (75-99) mg/dL Calcium 6.8 L (8.4-10.2) mg/dL Total Bilirubin 6.6 H (0.2-1.3) mg/dL AST 840 H (14-36) U/L ALT 289 H (9-52) U/L Alkaline Phosphatase 395 H (38-126) U/L Total Protein 3.8 L (6.3-8.2) g/dL Albumin 2.3 L (3.5-5.0) g/dL Ceruloplasmin (20.0-60.0) mg/dL Crossmatch 04/20/18 04/20/18 04/20/18 Range/Units 05:18 08:11 12:11 WBC (3.8-10.6) k/uL RBC (3.80-5.40) m/uL Hgb (11.4-16.0) gm/dL Hct (34.0-46.0) % RDW (11.5-15.5) % Plt Count (150-450) k/uL PT (9.0-12.0) sec INR (<1.2) APTT (22.0-30.0) sec ABG pH (7.35-7.45) ABG pCO2 (35-45) mmHg ABG pO2 (83-108) mmHg ABG HCO3 (21-25) mmol/L ABG Total CO2 (19-24) mmol/L ABG O2 Saturation (94-97) % Carbon Dioxide (22-30) mmol/L BUN (7-17) mg/dL Creatinine (0.52-1.04) mg/dL Glucose (74-99) mg/dL POC Glucose (mg/dL) 152 H 177 H 245 H (75-99) mg/dL Calcium (8.4-10.2) mg/dL Total Bilirubin (0.2-1.3) mg/dL AST (14-36) U/L ALT (9-52) U/L Alkaline Phosphatase (38-126) U/L Total Protein (6.3-8.2) g/dL Albumin (3.5-5.0) g/dL Ceruloplasmin (20.0-60.0) mg/dL Crossmatch Assessment and Plan Plan: Assessment: 1. Acute kidney injury secondary to ATN secondary to hypotension. Creatinine peaked at 4.99 on April 16. Baseline creatinine near 1. No hydronephrosis noted on renal ultrasound. She is noted to have sub-nephrotic proteinuria. 2. Proteinuria. Her albumin is also low. UPC 0.5. Rule out GN. Serologies negative. Urine eosinophils negative. 3. Metabolic acidosis secondary to acute kidney injury and IV fluids. Better. 4. Edema. Patient had a CAT scan of the abdomen and pelvis done yesterday which revealed extensive subcutaneous edema. 5. Hypotension. This is due to to sepsis. Cortisol level normal. Currently on 8 mics of Levophed. 6. Diabetes mellitus. Patient states this was diagnosed within the last 1 year. 7. UTI with urine culture positive for VRE. Infectious disease following. Vancomycin discontinued. 8. Hyperkalemia. This is due to acute kidney injury and metabolic acidosis. Potassium supplementation discontinued. Better. 9. Hyponatremia secondary to acute kidney injury. Better. 10. Hyperphosphatemia secondary to BOONE. Better with dialysis. Also on PhosLo. 11. Systolic CHF with ejection fraction of 45-50% with moderate pulmonary hypertension. 12. Elevated liver enzymes. GI following. May require liver biopsy. Also potential transfer to tertiary care center. 13. Acute blood loss anemia with hemoglobin of 5.9 on April 19 status post 2 units of blood transfusion. Plan: Decreased rate of normal saline to 50 mL an hour. Maintain oral sodium bicarbonate 1300 mg twice daily. Strict I's and O's. Avoid nephrotoxins. Hemodialysis today with ultrafiltration as tolerated. Continue to assess on a day-to-day basis for need for renal replacement therapy. She has been receiving daily dialysis over the past week. Will try to hold tomorrow
--- NOTE | 2018-04-20 13:21 | P.PN ---
Subjective Progress Note Date: 04/20/18 Principal diagnosis: Generalized anasarca, severe symptomatic hypotension, Acute renal failure, Severe sepsis and septic shock associated with urinary tract infection, pulmonary sarcoidosis, severe morbid obesity, obesity hypoventilation syndrome, sleep disorder breathing and sleep apnea, uncontrolled hyperglycemia and type 2 diabetes mellitus, acute renal failure, chronic pain syndrome, fluctuating hypo- and hypertension 04/20/2018, patient seen eval reexamined during the rounds clinically patient is a not much change from baseline due to severe tachypnea and poor tolerance with the hemodialysis as well as for airway protection patient was intubated electively later on last night, patient remains on full ventilator support, PA or more calm and comfortable, currently patient is on assist control rate of 24 breathing 28 with tidal volume of 505 of PEEP and 70% oxygen, patient is on levo fed drip for mics however systolic blood pressures 80s advised to increase it to 6-7 mics to keep her map around 65-70, there patient is also on propofol 30 mics appears to be tolerating well, we will lower down the FiO2 35%, whole DC the bicarb drip as well as the legs on drip as well, labs and radiographic studies as well as medications reviewed, patient remains on broad-spectrum antibiotics, will continue oral bicarbonate, care plan discussed with the renal service at length as well as primary service, patient will undergo repeat dialysis today, patient will likely require recurrent and daily hemodialysis, will continue other supportive care overall long-term prognosis is poor, depending upon the response of therapy will make further adjustment, critical care time spent 45 minutes 04/19/2018, patient seen eval examined during the rounds continue to have significant intermittent fluctuation in the blood pressure unable to complete the hemodialysis patient remains lethargic and poorly responsive, hyperventilating due to significant metabolic acidosis due to renal failure as well as from the levo fed drip, her chest x-ray performed today revealed left basilar atelectasis, labs reviewed white cell count is up to 21,000 with a hemoglobin drop down to 5.9 platelet count is 1 27,000 Ray a blood gas revealed pH is 7.26 pCO2 26 pO2 169 base deficit is 15, BUN/creatinine is 16 and 2.39, and liver enzyme continue to go up suggestive of possibly shock liver , recent abdominal computed tomography scan has been unremarkable except some changes at [facility] spine ID service is following, there is no obvious source of bleeding has been noted, patient did have a bowel movement earlier today which was normal in appearance, anemia appears to be anemia of chronic disease, overall prognosis is very guarded 04/18/2018, patient seen and evaluated examined during the rounds she is a status post hemodialysis unable to remove over 2 L only 1.8 L of fluid has been removed with hemodialysis patient has significant degree of hemodynamic fluctuation with the levo fed drip went all the way up to 20 mics however now able to bring it down to 7 mics, patient had episode of emesis of BiPAP mask has been removed patient is now nasal cannula patient has been on tube feed well and Reglan 10 mg IV every 6, due to labile blood pressure patient will require a arterial line, labs and medications reviewed from today August chest x- ray overall is stable with stable right-sided PICC line cardiomegaly is been noted some interstitial edema has been noted, stable NG tube, arterial blood gas performed today reviewed the pH is fairly balanced 7.42 pCO2 37 pO2 139 the severity or acidosis has improved Ammann D and creatinine as down to 20/2.84, hemoglobin is 7.4 white cell count is 14,800 Ammann noted to marker alpha- fetoprotein is elevated as well 11.2 04/17/2018, patient seen eval examined during the rounds clinically patient has been doing slightly better in terms of breathing oxygenation stable but continued to require BiPAP support, currently patient is on IPAP of 14 EPAP of 5 with 35% oxygen, the blood pressure did drop down with map into the low 50s levo fed drip is being started, patient is currently undergoing hemodialysis with intent to remove about 2 L of fluid, has had incomplete just 2 hour hemodialysis yesterday, patient is arousable opens eyes does try to follow simple commands slightly more awake now, once dialysis is completed then patient remains stable will reassess and do a swallowing evaluation prior to Dobbhoff or NG tube placement, laboratory data radiographic studies reviewed medications reviewed, white cell count 11,000, hemoglobin is 7.2, BUN/ creatinine slightly improved 27 /3.58, patient remains on broad-spectrum antibiotics high-dose IV steroids methadone is on hold 04/16/2018, patient seen eval examined during the rounds she is currently on 5 mics of the levo fed, the old using and bleeding from the dialysis catheter site has improved and resolved now he shouldn't has been planned for dialysis by renal services, hemodynamics status overall stable, remains on BiPAP with IPAP 14 EPAP of 5 with 35% oxygen, labs from today reviewed no chest x-rays performed today we'll plan for tomorrow including labs, and I'll of is being planned by GI services 04/15/2018, patient seen eval examined during rounds, patient remain somnolent but arousable, remains on BiPAP currently on IPAP of 14 and EPAP of 5 with 35% oxygen, labs reviewed white cell count is trickling down is 11,000, hemoglobin remained stable 8.8, creatinine continued to go up is 4.19 now, as per discussion with the renal service proceed with hemodialysis vascular surgery has been consulted, and they have placed and dialysis catheter but patient is hypertensive also some bruising and blood-tinged discharge from the catheter site is present advised to hold on dialysis tonight 04/14/2018 Patient has been more lethargic throughout the day, has been on BiPAP 14/6 with 35% oxygen patient is gently being rehydrated patient does have diffuse anasarca however chest x-ray continue to be normal with normal heart size no effusion is seen him a subtle basal atelectasis cannot be excluded, and labs from today reviewed white cell count remains stable hemoglobin is unchanged platelet count stable as well, renal functions remains poor BUN/ creatinine continued to get worse 23 and 3.99 urine output is very minimal, patient has not received her methadone today, recommend to DC methadone, it appears that patient may need dialysis/ultrafiltration for generalized anasarca and worsening renal failure 04/13/2018, patient seen eval reexamined during the rounds care plan discussed the renal service patient's chest x-ray unremarkable oxygen is stable, patient remains on BiPAP as needed along with oxygen patient has not been using the BiPAP machine very regularly have discussed with the family as well as patient importance to using the BiPAP regularly, I have also advised to stop or discontinue methadone as it may be interfering with the mental status for now dose has been cut down to half, labs reviewed medications reviewed 04/12/2018, patient seen eval examined during the rounds clinically patient is doing better in terms of hemodynamics but remains intermittently tachycardic which is not much change from baseline blood pressure has been stable, patient did not use her BiPAP machine last night, has been more somnolent she is lethargic but readily arousable, she does answer in simple words, moving all 4 extremities, she was noted to have snoring as well as apneic events, family is present at bedside and have discussed with them at length about importance of using the BiPAP machine each night and when necessary during the day will put the BiPAP again with a setting of 14/5 with 35% oxygen, potassium is up slightly urine culture is positive for Enterococcus faecium/VRE, patient is on daptomycin and Zosyn, IV fluids are 100 mL an hour, BUN/creatinine slightly up and baseline 04/11/2018, patient seen eval examined in ICU patient the continue to have issues associated aches and pain she remains a poor historian however does describe generalized pain throughout the body, patient has been nauseous as well a computed tomography scan of the abdominal and pelvis is being ordered, her lactic acid has improved with the fluid resuscitation, patient has been on broad-spectrum antibiotics I urine culture is positive for enterococcus Ammann labs from today reviewed sodium is 1:30 and production of 5.3 her BUN/ creatinine is 15 and 2.99, overall sodium remains stable hyperkalemia is present renal functions continued to be marginal liters lactic acid check was 1.9, chest x-ray remains stable PICC line site is stable borderline cardiomegaly , patient is getting broad-spectrum antibiotics with Vanco mycin, daptomycin and Zosyn patient is a getting therapy for the lower extremity cellulitis as well along with local care 47-year-old morbidly obese female who was seen evaluated examined in the ICU this patient has been a resident of [facility], patient has problems associated with chronic renal insufficiency, sarcoidosis severely morbidly obese was found to have blood pressure only 60s systolic at the [facility] EMS was notified it appears that blood pressure has been extremely fluctuating it was noted to be 90 by EMS however subsequently was in 150 patient was tachypneic and tachycardic as well no chest pain was present overall patient is a poor historian, patient was eventually admitted into the hospital from the emergency department Robert patient underwent a VQ scan with indeterminate findings, CT angiogram be performed due to elevated creatinine Robert patient has been using BiPAP off and on with a IPAP of 14 and EPAP of 5 and 35% oxygen, patient has been comfortable now she has a low urine output she is getting a fluid challenge of 500 mL crystalloid due to elevated lactic acid followed by 100 mL an hour patient is also on Solu-Cortef which is being switched to Solu-Medrol, currently patient is on bronchodilators and continuation of home medications, heparin for DVT prophylaxis, due to chronic hypertension patient is on midodrine along with broad-spectrum antibiotics along with Zosyn and vancomycin, urine is positive for group D enterococcus, other significant labs were noted to have a lactic acid of 5.8 came down to 3.2 , BUN/creatinine remains stable 40 and 2.93 much chest x-ray revealed cardiomegaly small left-sided pleural effusion with subsegmental atelectasis, patient was transferred to ICU for hypotension and low urine output and elevated lactic acid where she was seen evaluated examined Objective - Vital Signs Vital signs: Vital Signs Temp 98.3 F 04/20/18 08:00 Pulse 98 04/20/18 11:00 Resp 26 H 04/20/18 11:00 BP 127/68 04/19/18 17:30 Pulse Ox 98 04/20/18 11:00 Intake & Output 04/19/18 04/20/18 04/20/18 18:59 06:59 18:59 Intake Total 2016.4 1340.722 333.09 Output Total 22 10 Balance 2016.444 1318.722 323.09 Weight 184.7 kg 167.8 kg Intake: IV 783 533 100 Dextrose 5% in Water 1, 200 485 70 000 ml @ 100 mls/hr IV . [id number] [facility] with Sodium Bicarb (1 Meq/ml) 150 ml Rx#:[id number] ns 550 pressure bag 33 48 30 Intake, IV Titration 384.444 407.722 113.09 Amount Albumin Human 25% 50 ml 50 In Empty Bag 1 bag @ 100 mls/hr IVPB Q12H [facility] Rx#: [id number] Naloxone 4 mg In Sodium 200 94.75 Chloride 0.9% 100 ml @ 0. 6 MG/HR 15 mls/hr IV . Q6H40M [facility] Rx#:[id number] Norepinephrine 16 mg In 184.444 13.09 Sodium Chloride 0.9% 250 ml @ Titrate IV .Q0M [facility] Rx#:[id number] Piperacillin-Tazobactam 3 100 .375 gm In Sodium Chloride 0.9% 100 ml @ 25 mls/hr IVPB Q8HR [facility] Rx# :[id number] Propofol 1,000 mg In 162.972 100 Empty Bag 1 bag @ Titrate IV .Q0M [facility] Rx#: [id number] Oral 30 Tube Feeding 140 370 120 Blood Product 620 Rc As-1 Unit 310 [id number] Rc Pheresis As-3 Unit 310 [id number] Other 90 Output: Urine 22 10 Other: Voiding Method Indwelling Catheter Indwelling Catheter Indwelling Catheter ABP, PAP, CO, CI - Last Documented Arterial Blood Pressure 98/62 - Exam Gen: This is a morbidly obese 47-year-old Afro [place] female. Sedated with propofol drip on full ventilator support appear more calm and comfortable HEENT: Head is atraumatic, normocephalic. Pupils equal, round. Sclerae is anicteric. Hearing grossly normal. NECK: Supple. No JVD. No lymphadenopathy. No thyromegaly. LUNGS: Diminished bilaterally. Clear to auscultation. No wheezes or rhonchi. No intercostal retractions. Has been on BiPAP support continuously HEART: Regular rate and rhythm. No murmur. ABDOMEN: Morbidly obese. Soft. Bowel sounds are present. No masses. No tenderness. EXTREMITIES: 2+ pedal edema. Chronic skin inflammatory changes early cellulitis cannot be excluded No calf tenderness. No redness. NEUROLOGICAL: Sedated with low-dose propofol - Labs CBC & Chem 7: 04/20/18 04:35 04/20/18 04:35 Labs: Abnormal Lab Results - Last 24 Hours (Table) 04/17/18 04/18/18 04/19/18 Range/Units 15:30 04:35 12:10 WBC (3.8-10.6) k/uL RBC (3.80-5.40) m/uL Hgb (11.4-16.0) gm/dL Hct (34.0-46.0) % RDW (11.5-15.5) % Plt Count (150-450) k/uL PT (9.0-12.0) sec INR (<1.2) APTT (22.0-30.0) sec ABG pH (7.35-7.45) ABG pCO2 (35-45) mmHg ABG pO2 (83-108) mmHg ABG HCO3 (21-25) mmol/L ABG Total CO2 (19-24) mmol/L ABG O2 Saturation (94-97) % Carbon Dioxide (22-30) mmol/L BUN (7-17) mg/dL Creatinine (0.52-1.04) mg/dL Glucose (74-99) mg/dL POC Glucose (mg/dL) 66 L (75-99) mg/dL Calcium (8.4-10.2) mg/dL Total Bilirubin (0.2-1.3) mg/dL AST (14-36) U/L ALT (9-52) U/L Alkaline Phosphatase (38-126) U/L Total Protein (6.3-8.2) g/dL Albumin (3.5-5.0) g/dL Ceruloplasmin 71.3 H (20.0-60.0) mg/dL Crossmatch See Detail 04/19/18 04/19/18 04/19/18 Range/Units 16:57 21:22 22:46 WBC (3.8-10.6) k/uL RBC (3.80-5.40) m/uL Hgb (11.4-16.0) gm/dL Hct (34.0-46.0) % RDW (11.5-15.5) % Plt Count (150-450) k/uL PT (9.0-12.0) sec INR (<1.2) APTT (22.0-30.0) sec ABG pH 7.51 H 7.50 H (7.35-7.45) ABG pCO2 19 L* 22 L 30 L (35-45) mmHg ABG pO2 181 H 163 H (83-108) mmHg ABG HCO3 15 L 17 L 19 L (21-25) mmol/L ABG Total CO2 15 L 18 L (19-24) mmol/L ABG O2 Saturation 100.0 H 100.0 H 99.2 H (94-97) % Carbon Dioxide (22-30) mmol/L BUN (7-17) mg/dL Creatinine (0.52-1.04) mg/dL Glucose (74-99) mg/dL POC Glucose (mg/dL) (75-99) mg/dL Calcium (8.4-10.2) mg/dL Total Bilirubin (0.2-1.3) mg/dL AST (14-36) U/L ALT (9-52) U/L Alkaline Phosphatase (38-126) U/L Total Protein (6.3-8.2) g/dL Albumin (3.5-5.0) g/dL Ceruloplasmin (20.0-60.0) mg/dL Crossmatch 04/19/18 04/20/18 04/20/18 Range/Units Unknown 00:36 04:35 WBC 28.7 H 26.6 H (3.8-10.6) k/uL RBC 2.66 L 2.43 L (3.80-5.40) m/uL Hgb 8.3 L D 7.9 L (11.4-16.0) gm/dL Hct 23.9 L 22.0 L (34.0-46.0) % RDW 16.7 H 17.4 H (11.5-15.5) % Plt Count 126 L 124 L (150-450) k/uL PT (9.0-12.0) sec INR (<1.2) APTT (22.0-30.0) sec ABG pH (7.35-7.45) ABG pCO2 (35-45) mmHg ABG pO2 (83-108) mmHg ABG HCO3 (21-25) mmol/L ABG Total CO2 (19-24) mmol/L ABG O2 Saturation (94-97) % Carbon Dioxide (22-30) mmol/L BUN (7-17) mg/dL Creatinine (0.52-1.04) mg/dL Glucose (74-99) mg/dL POC Glucose (mg/dL) 122 H (75-99) mg/dL Calcium (8.4-10.2) mg/dL Total Bilirubin (0.2-1.3) mg/dL AST (14-36) U/L ALT (9-52) U/L Alkaline Phosphatase (38-126) U/L Total Protein (6.3-8.2) g/dL Albumin (3.5-5.0) g/dL Ceruloplasmin (20.0-60.0) mg/dL Crossmatch 04/20/18 04/20/18 04/20/18 Range/Units 04:35 04:35 04:41 WBC (3.8-10.6) k/uL RBC (3.80-5.40) m/uL Hgb (11.4-16.0) gm/dL Hct (34.0-46.0) % RDW (11.5-15.5) % Plt Count (150-450) k/uL PT 16.8 H (9.0-12.0) sec INR 1.8 H (<1.2) APTT 45.5 H (22.0-30.0) sec ABG pH (7.35-7.45) ABG pCO2 32 L (35-45) mmHg ABG pO2 284 H (83-108) mmHg ABG HCO3 (21-25) mmol/L ABG Total CO2 (19-24) mmol/L ABG O2 Saturation 100.0 H (94-97) % Carbon Dioxide 19 L (22-30) mmol/L BUN 20 H (7-17) mg/dL Creatinine 2.34 H (0.52-1.04) mg/dL Glucose 129 H (74-99) mg/dL POC Glucose (mg/dL) (75-99) mg/dL Calcium 6.8 L (8.4-10.2) mg/dL Total Bilirubin 6.6 H (0.2-1.3) mg/dL AST 840 H (14-36) U/L ALT 289 H (9-52) U/L Alkaline Phosphatase 395 H (38-126) U/L Total Protein 3.8 L (6.3-8.2) g/dL Albumin 2.3 L (3.5-5.0) g/dL Ceruloplasmin (20.0-60.0) mg/dL Crossmatch 04/20/18 04/20/18 04/20/18 Range/Units 05:18 08:11 12:11 WBC (3.8-10.6) k/uL RBC (3.80-5.40) m/uL Hgb (11.4-16.0) gm/dL Hct (34.0-46.0) % RDW (11.5-15.5) % Plt Count (150-450) k/uL PT (9.0-12.0) sec INR (<1.2) APTT (22.0-30.0) sec ABG pH (7.35-7.45) ABG pCO2 (35-45) mmHg ABG pO2 (83-108) mmHg ABG HCO3 (21-25) mmol/L ABG Total CO2 (19-24) mmol/L ABG O2 Saturation (94-97) % Carbon Dioxide (22-30) mmol/L BUN (7-17) mg/dL Creatinine (0.52-1.04) mg/dL Glucose (74-99) mg/dL POC Glucose (mg/dL) 152 H 177 H 245 H (75-99) mg/dL Calcium (8.4-10.2) mg/dL Total Bilirubin (0.2-1.3) mg/dL AST (14-36) U/L ALT (9-52) U/L Alkaline Phosphatase (38-126) U/L Total Protein (6.3-8.2) g/dL Albumin (3.5-5.0) g/dL Ceruloplasmin (20.0-60.0) mg/dL Crossmatch - Imaging and Cardiology Chest x-ray: report reviewed, image reviewed CT scan - abdomen: report reviewed, image reviewed (Chest x-ray as well as a computed tomography scan of the abdomen pelvis reports reviewed) Assessment and Plan Assessment: Labile blood pressure with alternating hypertension followed by hypotension status post arterial line better blood pressure monitoring Persistent somnolence and lethargy high risk for aspiration, respiratory muscle fatigue, and poor response to hemodialysis intubated electively for better support Acute on chronic renal failure on hemodialysis Progressive worsening renal function and generalized anasarca proceed with hemodialysis as per renal services For ongoing hypotension will maintain patient on levo fed drip a.m. for map about 65-70 so adequate dialysis can be performed, patient is due for another dialysis later on today Acute hypoxic and hypercapnic respiratory failure Bilateral basal pneumonia Severe sepsis and septic shock related to enterococcus urinary tract infection with some complaint component from cellulitis of the both lower extremity Bilateral lower extremity cellulitis Elevated lactic acid/metabolic acidosis multifactorial associated with acute on chronic renal failure, urinary tract infection have improved though her and normalized Pulmonary sarcoidosis with possible left lower lobe pneumonia Somnolence and lethargy due to multifactorial processes including methadone currently on hold Small left-sided pleural effusion Dehydration associated with intravascular volume depletion patient is undergoing intermittent crystalloid challenge Severe morbid obesity and obstructive sleep apnea Plan: DC bicarb drip as well as nasal legs on drip Continue to feed Ventilator adjustment Reglan IV labs and x-ray tomorrow Arterial line or better blood pressure monitoring Dialysis as per renal service Dobbhoff tube feed as tolerated Continue broad-spectrum antibiotics DVT and peptic ulcer disease prophylaxis IV steroids, we'll start tapering them down Reviewed labs and radiographic studies ordered for tomorrow, further recommendations pending plan of care as per clinical response of the patient Further recommendations pending plan of care as per clinical response of patient crackle care time spent 45 minutes Time with Patient: Greater than 30
--- NOTE | 2018-04-20 14:24 | P.PN ---
Subjective Progress Note Date: 04/20/18 This is 47 years old female with past medical history significant for sarcoidosis, morbid obesity, diabetes mellitus and multiple comorbidities, residence of alf who was recently discharged from [facility] presents today from alf with hypotension, slight tachycardia and hypoxia. In the emergency department blood pressure was below 90/60, heart rate in the 110 area, oxygen was in the mid 80s patient was started on oxygen and blood work showed elevated creatinine patient was sent to VQ scan which showed intermediate probability with limited examination due to motion factor and patient was started on heparin drip for assumption of pulmonary embolism. Patient is poor historian and unable to provide detailed information and was refusing care per nursing staff since admission to the floor including her medication and using her BiPAP on an as-needed basis. Patient currently is denying chest pain, shortness breath, nausea, vomiting, abdominal pain or productive cough 04/10: Received call today from the nursing staff the patient was really sick, blood pressure was low and was lethargic and sleeping well on BiPAP most the morning and lactic acid was elevated at 5.8 last evening.. She was unable to take her medications or eat this morning. She has increased edema. Patient has only had 150 mL of urine output overnight. She does have a Lopez catheter in. There was no IV access. Patient has been seen by by nephrology and cortisol level ordered along with Solu-Cortef and Lasix 60 mg IV once. Prednisone was discontinued. Patient was transferred into the intensive care unit and consult requested with Dr. Robin for intensive care management. Methadone dose changed to 50 mg daily which is her current dose at [facility]. Diarrhea has resolved. 04/11: Repeat chest x-ray reveals stable cardiomegaly. PICC placement. Patient has been seen by Dr. Colon and vancomycin and daptomycin started, continue Zosyn. Santyl to lower extremity cellulitis. Patient has been seen by Dr. Robin with concern for possible left lower lobe pneumonia, small left pleural effusion and dehydration. This morning, Dr. Moran ordered Lasix 40 mg IV once , IV dextrose 50% and regular insulin. Cortisol level was normal. Steroids are Solu-Medrol 60 mg every 6 hours. Midodrine was started yesterday for blood pressure support. Blood pressure is much improved today. Hemoglobin is 9.3, sodium 131 and potassium 5.3, creatinine 2.99. Capillary blood glucose running between 117 and 134. Lactic acid is now down to 1.9. Vancomycin level 25.6. Patient has been hemodynamically stable, afebrile. Patient has been on BiPAP and this morning is on nasal cannula, she remains lethargic but more alert from yesterday. Lopez catheter is in place. She continues to have lower extremity edema and now with weeping. No diarrhea. Patient has not had a bowel movement since 04/10. Urine output has been adequate at 50 mL per hour for the past 4 hours. She is complaining of nausea and abdominal discomfort for which lipase and CAT scan of the abdomen and pelvis ordered with oral contrast only. 04/12: Patient remains in intensive care unit. She has been hemodynamically stable and Midodrine will be discontinued. Lopez catheter remains in place with good urine output. She had a large bowel movement last evening and a small soft bowel movement today. Creatinine is 3.36 and BUN 17.. Heart rates have been elevated. Patient is more alert today from yesterday. GI consult added for elevated liver function tests and abdominal ultrasound ordered. 04/13: Cardiology consult was added yesterday due to tachycardia and patient was started on Lopressor 12.5 mg twice daily and hold for systolic blood pressure less than 90. TSH was 1.620. She has been on BiPAP during the night. Abdominal ultrasound reveals hepatomegaly correlate for hepatic steatosis, diffuse hepatocellular disease or hepatitis. There is ringing down artifact involving the gallbladder wall which can occasionally be seen with adenomyomatosis. Repeat liver function tests are increasing with total bilirubin 1.8, AST 82, ALT 54, alkaline phosphatase 278. GI is following. BUN 20 and creatinine 3.67, urine output low. She has epigastric tenderness and protonix added to omeprazole. Patient eating very little and refused nephro today. She is cleared to be transferred to Cardiac Step down. 04/14: Patient is more lethargic today. She is refusing to open her mouth. She has had no oral medications nor oral intake. Yesterday she ate a little bit of fluid and Magic cups. She is currently on BiPAP at FiO2 of 35%. Urine output by the time of evaluation was only 25-30 mL. Lasix 80 mg IV ordered by Dr. Moran. Patient may require hemodialysis if renal function does not improve. Today creatinine is at 3.99. Oral sodium bicarb will be switched over to drip. GI is following and has been asked to place Dobbhoff. Ammonia level came back normal at 18. Liver function tests are also worsening. 04/15: Patient is awake this morning on BiPAP. Very little communication but nods her head. She is complaining of nausea and abdominal pain. She had a bowel movement early this morning. Renal function is worse with creatinine of 4.9, hemoglobin 8.8. Nephrology has ordered consult with vascular for Cuba catheter placement with plan for hemodialysis today, Tuesday and Tuesday. Urine output has been less than 200 mL over the past 24 hours. Patient to continue on sodium bicarb drip. Nephrology is added back in mid drain. Dobbhoff to be placed today. 04/16: Patient remains in the intensive care unit. She was started on Levophed this morning for blood pressure. She is still on BiPAP. [place] catheter was placed by Dr. Winter yesterday to the right groin but she did have blood loss and was advised to hold off on dialysis. This is improved with no further bleeding. She continues to have scant amount of urine output. Plan from nephrology is for dialysis today she was resumed back on admitted draining yesterday. Bicarb drip is to be discontinued once dialysis is started. Patient is sleeping but awakens to verbal stimuli. She is able to nod to answer questions. She has generalized anasarca. Noted that she has gained 20 kg since admission. She has not had Dobbhoff placed by GI 04/17: Patient is off norepinephrine. Dobbhoff may be placed tonight. She does have a new wound to the right posterior knee area. She also has a skin tear to the left arm. She is currently on antibiotics in form of daptomycin and Zosyn which will be continued. She is undergoing hemodialysis. Hemoglobin is 7.2 with BUN 27 creatinine 3.58. Liver enzymes remain elevated. Hepatitis B surface antibody is reactive at 74. 04/18: Patient will be undergoing hemodialysis this morning. She was placed back on norepinephrine drip last evening and has been intermittently for blood pressure systolic of 80. She is able to answer yes and no to questions. Liver function tests continued to rise. has recommended transfer to [facility] but patient is not candidate for biopsy. We have known in the past that the sister has been very resistant to her transferring out of [place] to [facility]. She now has an NG tube in place and receiving nephro that will be at goal liters today. Hepatitis B surface antibody was reactive at 74. There is concern that she is not been receiving methadone but this has been clarified by pain management that this can be crushed and put an NG tube which will be continued. White count is 14.8, hemoglobin 7.4, INR 1.5. BUN 20 creatinine 2.84 which is improved over the past couple days. AST 663, ALT 212, alkaline phosphatase 392. Total bilirubin is 4.9. Capillary blood glucose running between 130 and 166. We'll plan to monitor for at least another 24 hours and then discuss possible transfer with the family. Records reviewed from [facility]. 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 In 2016, PFT showed mild restriction with normal diffusion capacity. No response to bronchodilators. She had good response to Enbrel for 3 years but had to be stopped due to insurance company authorization. 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 She was not evaluated by neurosurgery and she had improvement of her mental status. MRI of the spine revealed fatty atrophy of the paraspinal musculature. No significant canal compromise or cord compression. Limited evaluation of right brachial plexus with no obvious abnormality. 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 Plan: wean prednisone down by 5 mg every week to end point of 20 mg, follow up with Dr. Gar[facility] April 25 at 1:15 and neurology follow-up with Dr. Garzon on April 03 at 9 AM. 04/19: Patient is more unresponsive today and remains on BiPAP and tachypneic. Patient was started on a Narcan drip last evening and was slightly more awake after this was started but then mental status declined. She was placed back on norepinephrine possibly related to clonidine patch. She is receiving 2 units of packed RBCs this morning for hemoglobin of 5.9. Dialysis was attempted this morning but due to hypotension this was not completed. She was started on a bicarb drip and nephrology adding an oral bicarb as well. Plan to attempt hemodialysis tomorrow. She has had scant urine output. She is tolerating tube feedings at goal. Limited echocardiogram revealed EF 60-65%, mild tricuspid regurgitation and moderate pulmonary hypertension. GI is recommending transfer to tertiary care center have PT/INR worsens. INR 1.6. AST 829, ALT 262, alkaline phosphatase 420, albumin 2.3. We did order 3 doses of albumin yesterday and will repeat today. Dr. Robin attempted a right IJ triple-lumen catheter and has been ordered for PICC line placement. CAT scan of the abdomen and pelvis without contrast showed fatty infiltration of the liver. Nonobstructive right renal calculi. Abdomen pelvis unchanged. Extensive subcutaneous edema bilaterally that is probably increased. No retroperitoneal hemorrhage. White count jumped to 28.7. Dr. Colon has discontinued daptomycin as treatment is completed for VRE UTI. Zosyn started for new left lower lobe infiltrate, possible aspiration she was vomiting yesterday. Cortisol level and ACTH will be checked in the morning 04/20: Patient was intubated last night. She is on levo at 8 mics. She is scheduled for hemodialysis today. She has had no urine output. She is currently off the Narcan drip and bicarb drip. Respiratory status appears more comfortable on the ventilator. She did have a right-sided IJ triple-lumen placed by Dr. Robin yesterday. Discussed with father, option of transfer to [facility] and he is undecided. He states that they are not going to do anything different than what transfer. Await further input from consultants. White count is 26.6, hemoglobin 7.9, platelet count 124, INR 1.8, BUN 20 creatinine 2.34. Total bilirubin 6.6, AST 840, ALT 289, alkaline phosphatase 395. Cortisol level came back at 41 and ACTH 5.19. Review Of Systems: Intubated and on mechanical ventilation Objective - Vital Signs Vital signs: Vital Signs Temp 98.3 F 04/20/18 08:00 Pulse 98 04/20/18 11:00 Resp 26 H 04/20/18 11:00 BP 127/68 04/19/18 17:30 Pulse Ox 98 04/20/18 11:00 Intake & Output 04/19/18 04/20/18 04/20/18 18:59 06:59 18:59 Intake Total 2016.444 1340.722 233.09 Output Total 22 10 Balance 2017.444 1318.722 223.09 Weight 184.7 kg 167.8 kg Intake: IV 783 533 100 Dextrose 5% in Water 1, 200 485 70 000 ml @ 100 mls/hr IV . [id number] LESLIE with Sodium Bicarb (1 Meq/ml) 150 ml Rx#:[id number] ns 550 pressure bag 33 48 30 Intake, IV Titration 384.444 407.722 13.09 Amount Albumin Human 25% 50 ml 50 In Empty Bag 1 bag @ 100 mls/hr IVPB Q12H [facility] Rx#: [id number] Naloxone 4 mg In Sodium 200 94.75 Chloride 0.9% 100 ml @ 0. 6 MG/HR 15 mls/hr IV . Q6H40M [facility] Rx#:[id number] Norepinephrine 16 mg In 184.444 13.09 Sodium Chloride 0.9% 250 ml @ Titrate IV .Q0M [facility] Rx#:[id number] Piperacillin-Tazobactam 3 100 .375 gm In Sodium Chloride 0.9% 100 ml @ 25 mls/hr IVPB Q8HR [facility] Rx# :[id number] Propofol 1,000 mg In 162.972 Empty Bag 1 bag @ Titrate IV .Q0M [facility] Rx#: [id number] Oral 30 Tube Feeding 140 370 120 Blood Product 620 Rc As-1 Unit 310 [id number] Rc Pheresis As-3 Unit 310 [id number] Other 90 Output: Urine 22 10 Other: Voiding Method Indwelling Catheter Indwelling Catheter Indwelling Catheter ABP, PAP, CO, CI - Last Documented Arterial Blood Pressure 98/62 - Exam Gen: This is a morbidly obese 47-year-old female. She is in ICU bed intubated and on mechanical ventilation. Patient appears to be comfortable. HEENT: Head is atraumatic, normocephalic. Pupils equal, round. Sclerae is anicteric. Hearing grossly normal. Oral ET and NG tube in place NECK: Supple. No JVD. No lymphadenopathy. No thyromegaly. LUNGS: Diminished bilaterally. Clear to auscultation. No wheezes or rhonchi. No intercostal retractions. HEART: Regular rate and rhythm. No murmur. ABDOMEN: Morbidly obese. Generalized anasarca Soft. Bowel sounds are present. No masses. Positive epigastric tenderness. Lopez catheter draining clear benjy urine, scant amount. EXTREMITIES: 2+ pedal edema with serous weeping. No calf tenderness. +wound posterior Rt leg with significant weeping of serous fluid from her right leg, left leg, groins, bilateral arms. NEUROLOGICAL: Patient is sedated. - Labs CBC & Chem 7: 04/20/18 04:35 04/20/18 04:35 Labs: Abnormal Lab Results - Last 24 Hours (Table) 04/17/18 04/18/18 04/19/18 Range/Units 15:30 04:35 12:10 WBC (3.8-10.6) k/uL RBC (3.80-5.40) m/uL Hgb (11.4-16.0) gm/dL Hct (34.0-46.0) % RDW (11.5-15.5) % Plt Count (150-450) k/uL PT (9.0-12.0) sec INR (<1.2) APTT (22.0-30.0) sec ABG pH (7.35-7.45) ABG pCO2 (35-45) mmHg ABG pO2 (83-108) mmHg ABG HCO3 (21-25) mmol/L ABG Total CO2 (19-24) mmol/L ABG O2 Saturation (94-97) % Carbon Dioxide (22-30) mmol/L BUN (7-17) mg/dL Creatinine (0.52-1.04) mg/dL Glucose (74-99) mg/dL POC Glucose (mg/dL) 66 L (75-99) mg/dL Calcium (8.4-10.2) mg/dL Total Bilirubin (0.2-1.3) mg/dL AST (14-36) U/L ALT (9-52) U/L Alkaline Phosphatase (38-126) U/L Total Protein (6.3-8.2) g/dL Albumin (3.5-5.0) g/dL Ceruloplasmin 71.3 H (20.0-60.0) mg/dL Tumor Marker AFP 11.2 H (0.0-7.9) ng/mL Crossmatch See Detail 04/19/18 04/19/18 04/19/18 Range/Units 16:57 21:22 22:46 WBC (3.8-10.6) k/uL RBC (3.80-5.40) m/uL Hgb (11.4-16.0) gm/dL Hct (34.0-46.0) % RDW (11.5-15.5) % Plt Count (150-450) k/uL PT (9.0-12.0) sec INR (<1.2) APTT (22.0-30.0) sec ABG pH 7.51 H 7.50 H (7.35-7.45) ABG pCO2 19 L* 22 L 30 L (35-45) mmHg ABG pO2 181 H 163 H (83-108) mmHg ABG HCO3 15 L 17 L 19 L (21-25) mmol/L ABG Total CO2 15 L 18 L (19-24) mmol/L ABG O2 Saturation 100.0 H 100.0 H 99.2 H (94-97) % Carbon Dioxide (22-30) mmol/L BUN (7-17) mg/dL Creatinine (0.52-1.04) mg/dL Glucose (74-99) mg/dL POC Glucose (mg/dL) (75-99) mg/dL Calcium (8.4-10.2) mg/dL Total Bilirubin (0.2-1.3) mg/dL AST (14-36) U/L ALT (9-52) U/L Alkaline Phosphatase (38-126) U/L Total Protein (6.3-8.2) g/dL Albumin (3.5-5.0) g/dL Ceruloplasmin (20.0-60.0) mg/dL Tumor Marker AFP (0.0-7.9) ng/mL Crossmatch 04/19/18 04/20/18 04/20/18 Range/Units Unknown 00:36 04:35 WBC 28.7 H 26.6 H (3.8-10.6) k/uL RBC 2.66 L 2.43 L (3.80-5.40) m/uL Hgb 8.3 L D 7.9 L (11.4-16.0) gm/dL Hct 23.9 L 22.0 L (34.0-46.0) % RDW 16.7 H 17.4 H (11.5-15.5) % Plt Count 126 L 124 L (150-450) k/uL PT (9.0-12.0) sec INR (<1.2) APTT (22.0-30.0) sec ABG pH (7.35-7.45) ABG pCO2 (35-45) mmHg ABG pO2 (83-108) mmHg ABG HCO3 (21-25) mmol/L ABG Total CO2 (19-24) mmol/L ABG O2 Saturation (94-97) % Carbon Dioxide (22-30) mmol/L BUN (7-17) mg/dL Creatinine (0.52-1.04) mg/dL Glucose (74-99) mg/dL POC Glucose (mg/dL) 122 H (75-99) mg/dL Calcium (8.4-10.2) mg/dL Total Bilirubin (0.2-1.3) mg/dL AST (14-36) U/L ALT (9-52) U/L Alkaline Phosphatase (38-126) U/L Total Protein (6.3-8.2) g/dL Albumin (3.5-5.0) g/dL Ceruloplasmin (20.0-60.0) mg/dL Tumor Marker AFP (0.0-7.9) ng/mL Crossmatch 04/20/18 04/20/18 04/20/18 Range/Units 04:35 04:35 04:41 WBC (3.8-10.6) k/uL RBC (3.80-5.40) m/uL Hgb (11.4-16.0) gm/dL Hct (34.0-46.0) % RDW (11.5-15.5) % Plt Count (150-450) k/uL PT 16.8 H (9.0-12.0) sec INR 1.8 H (<1.2) APTT 45.5 H (22.0-30.0) sec ABG pH (7.35-7.45) ABG pCO2 32 L (35-45) mmHg ABG pO2 284 H (83-108) mmHg ABG HCO3 (21-25) mmol/L ABG Total CO2 (19-24) mmol/L ABG O2 Saturation 100.0 H (94-97) % Carbon Dioxide 19 L (22-30) mmol/L BUN 20 H (7-17) mg/dL Creatinine 2.34 H (0.52-1.04) mg/dL Glucose 129 H (74-99) mg/dL POC Glucose (mg/dL) (75-99) mg/dL Calcium 6.8 L (8.4-10.2) mg/dL Total Bilirubin 6.6 H (0.2-1.3) mg/dL AST 840 H (14-36) U/L ALT 289 H (9-52) U/L Alkaline Phosphatase 395 H (38-126) U/L Total Protein 3.8 L (6.3-8.2) g/dL Albumin 2.3 L (3.5-5.0) g/dL Ceruloplasmin (20.0-60.0) mg/dL Tumor Marker AFP (0.0-7.9) ng/mL Crossmatch 04/20/18 04/20/18 Range/Units 05:18 08:11 WBC (3.8-10.6) k/uL RBC (3.80-5.40) m/uL Hgb (11.4-16.0) gm/dL Hct (34.0-46.0) % RDW (11.5-15.5) % Plt Count (150-450) k/uL PT (9.0-12.0) sec INR (<1.2) APTT (22.0-30.0) sec ABG pH (7.35-7.45) ABG pCO2 (35-45) mmHg ABG pO2 (83-108) mmHg ABG HCO3 (21-25) mmol/L ABG Total CO2 (19-24) mmol/L ABG O2 Saturation (94-97) % Carbon Dioxide (22-30) mmol/L BUN (7-17) mg/dL Creatinine (0.52-1.04) mg/dL Glucose (74-99) mg/dL POC Glucose (mg/dL) 152 H 177 H (75-99) mg/dL Calcium (8.4-10.2) mg/dL Total Bilirubin (0.2-1.3) mg/dL AST (14-36) U/L ALT (9-52) U/L Alkaline Phosphatase (38-126) U/L Total Protein (6.3-8.2) g/dL Albumin (3.5-5.0) g/dL Ceruloplasmin (20.0-60.0) mg/dL Tumor Marker AFP (0.0-7.9) ng/mL Crossmatch Assessment and Plan Plan: 1. Sepsis with septic shock secondary to urinary tract infection with lactic acidosis. Intensive care unit management. PICC line ordered for IV access. Consults with Dr. Robin and Dr. Colon appreciated. Patient completed course of daptomycin. IVF per Dr. Moran 2. Intermediate probability of pulmonary embolism ruled out. Pulmonary medicine is following 3. Acute respiratory failure on chronic respiratory failure with hypoxia. Continue albuterol nebulizer treatments every 6 hours, DuoNeb treatments every 4 hours as needed, Pulmicort twice daily, Solu-Medrol. Intubated and on mechanical ventilation management by Dr. Rodas 4. Morbid obesity with BMI of 59. 5. Neurogenic bladder with incontinence. Urinary retention requiring Lopez catheter placement. 6. Diabetes mellitus type 2 insulin-dependent. Metformin on hold. NovoLog scale before meals and at bedtime. 7. Debility and deconditioning. 8. Dehydration. 9. Acute kidney injury and ATN likely secondary to dehydration with hyperkalemia. Consult with nephrology appreciated. [place] catheter has been placed by Dr. Winter. Patient on hemodialysis, bicarb drip, oral bicarb. Admitted during resumed and off Levofed. 10. Sarcoidosis following with [facility] on daily dose of steroids. 11. Hyperkalemia 12. Metabolic encephalopathy secondary to sepsis, respiratory failure, liver failure. 13. Chronic pain. Methadone discontinued and patient was placed on Narcan drip. 14. Abdominal pain with worsening liver function tests mostly secondary to heart failure and congestion. 15. Severe protein calorie malnutrition. NG tube feedings. Dietitian is following. Albumin IV ordered. 16. Metabolic acidosis. Sodium bicarb oral and IV. 17. GERD and possible gastritis. Continue Pepcid and Protonix 18. Aspiration pneumonia. Continue Zosyn. Dr. adorno is following. 19. Multiorgan failure with respiratory, renal and liver failure. CODE STATUS: Full code Prognosis guarded Discharge plan: Return to [facility] as long-term resident. Patient is known to have guardian. (Sister and father) Impression and plan of care have been directed as dictated by the signing physician. Jeanne Roca nurse practitioner acting as scribe for signing physician.
--- NOTE | 2018-04-20 14:47 | P.PN ---
Subjective Progress Note Date: 04/20/18 Principal diagnosis: Sepsis shock UTI history pulmonary sarcoidosis Hemoglobin 7.9. White count 26.6. INR 1.8. Creatinine 2.3. Total bilirubin 6.6. AST 40. ALT 29. AP 395. Hepatitis A/C nonreactive. Hepatitis B surface antibody reactive. P-ANCA less than 1:20. AFP 11.2. Protein electrophoresis no paraprotein recognized. Ceruloplasmin 71.3. Alpha I antitrypsin 191. Objective - Vital Signs Vital signs: Vital Signs Temp 98.5 F 04/20/18 12:00 Pulse 102 H 04/20/18 14:30 Resp 27 H 04/20/18 14:30 BP 127/68 04/19/18 17:30 Pulse Ox 97 04/20/18 14:30 Intake & Output 04/19/18 04/20/18 04/20/18 18:59 06:59 18:59 Intake Total 2016. 1340.722 631.09 Output Total 22 10 Balance 1318.722 621.09 Weight 184.7 kg 167.8 kg Intake: IV 783 533 368 Dextrose 5% in Water 1, 200 485 70 000 ml @ 100 mls/hr IV . [id number] LESLIE with Sodium Bicarb (1 Meq/ml) 150 ml Rx#:[id number] Sodium Chloride 0.9% 1, 250 000 ml @ 50 mls/hr IV . Q20H LESLIE Rx#:[id number] ns 550 pressure bag 33 48 48 Intake, IV Titration 384.444 407.722 113.09 Amount Albumin Human 25% 50 ml 50 In Empty Bag 1 bag @ 100 mls/hr IVPB Q12H LESLIE Rx#: [id number] Naloxone 4 mg In Sodium 200 94.75 Chloride 0.9% 100 ml @ 0. 6 MG/HR 15 mls/hr IV . Q6H40M LESLIE Rx#:[id number] Norepinephrine 16 mg In 184.444 13.09 Sodium Chloride 0.9% 250 ml @ Titrate IV .Q0M LESLIE Rx#:[id number] Piperacillin-Tazobactam 3 100 .375 gm In Sodium Chloride 0.9% 100 ml @ 25 mls/hr IVPB Q8HR LESLIE Rx# :[id number] Propofol 1,000 mg In 162.972 100 Empty Bag 1 bag @ Titrate IV .Q0M [facility] Rx#: [id number] Oral 30 Tube Feeding 140 370 150 Blood Product 620 Rc As-1 Unit 310 [id number] Rc Pheresis As-3 Unit 310 [id number] Other 90 Output: Urine 22 10 Other: Voiding Method Indwelling Catheter Indwelling Catheter Indwelling Catheter ABP, PAP, CO, CI - Last Documented Arterial Blood Pressure 112/71 - Exam General appearance: The patient is obtunded, not conversive; BiPAP. HET: Head is normocephalic and atraumatic. Pupils are equal and reactive. Oropharynx is clear without lesions.NG tube with feeds. Neck: Supple without lymphadenopathy. Trachea midline. Heart: S1 S2. Regular rate and rhythm. Lungs: Bipap. Diminished throughout. Increased respiratory effort. Abdomen: Morbidly obese. Soft, nontender, nondistended with bowel sounds. No peritoneal signs. No palpable organomegaly or masses. Extremities: Right groin dialysis catheter lower extremity dressings. - Labs CBC & Chem 7: 04/20/18 04:35 04/20/18 04:35 Labs: Abnormal Lab Results - Last 24 Hours (Table) 04/17/18 04/19/18 04/19/18 Range/Units 15:30 16:57 21:22 WBC (3.8-10.6) k/uL RBC (3.80-5.40) m/uL Hgb (11.4-16.0) gm/dL Hct (34.0-46.0) % RDW (11.5-15.5) % Plt Count (150-450) k/uL PT (9.0-12.0) sec INR (<1.2) APTT (22.0-30.0) sec ABG pH 7.51 H 7.50 H (7.35-7.45) ABG pCO2 19 L* 22 L (35-45) mmHg ABG pO2 181 H 163 H (83-108) mmHg ABG HCO3 15 L 17 L (21-25) mmol/L ABG Total CO2 15 L 18 L (19-24) mmol/L ABG O2 Saturation 100.0 H 100.0 H (94-97) % Carbon Dioxide (22-30) mmol/L BUN (7-17) mg/dL Creatinine (0.52-1.04) mg/dL Glucose (74-99) mg/dL POC Glucose (mg/dL) (75-99) mg/dL Calcium (8.4-10.2) mg/dL Total Bilirubin (0.2-1.3) mg/dL AST (14-36) U/L ALT (9-52) U/L Alkaline Phosphatase (38-126) U/L Total Protein (6.3-8.2) g/dL Albumin (3.5-5.0) g/dL Crossmatch See Detail 04/19/18 04/19/18 04/20/18 Range/Units 22:46 Unknown 00:36 WBC 28.7 H (3.8-10.6) k/uL RBC 2.66 L (3.80-5.40) m/uL Hgb 8.3 L D (11.4-16.0) gm/dL Hct 23.9 L (34.0-46.0) % RDW 16.7 H (11.5-15.5) % Plt Count 126 L (150-450) k/uL PT (9.0-12.0) sec INR (<1.2) APTT (22.0-30.0) sec ABG pH (7.35-7.45) ABG pCO2 30 L (35-45) mmHg ABG pO2 (83-108) mmHg ABG HCO3 19 L (21-25) mmol/L ABG Total CO2 (19-24) mmol/L ABG O2 Saturation 99.2 H (94-97) % Carbon Dioxide (22-30) mmol/L BUN (7-17) mg/dL Creatinine (0.52-1.04) mg/dL Glucose (74-99) mg/dL POC Glucose (mg/dL) 122 H (75-99) mg/dL Calcium (8.4-10.2) mg/dL Total Bilirubin (0.2-1.3) mg/dL AST (14-36) U/L ALT (9-52) U/L Alkaline Phosphatase (38-126) U/L Total Protein (6.3-8.2) g/dL Albumin (3.5-5.0) g/dL Crossmatch 04/20/18 04/20/18 04/20/18 Range/Units 04:35 04:35 04:35 WBC 26.6 H (3.8-10.6) k/uL RBC 2.43 L (3.80-5.40) m/uL Hgb 7.9 L (11.4-16.0) gm/dL Hct 22.0 L (34.0-46.0) % RDW 17.4 H (11.5-15.5) % Plt Count 124 L (150-450) k/uL PT 16.8 H (9.0-12.0) sec INR 1.8 H (<1.2) APTT 45.5 H (22.0-30.0) sec ABG pH (7.35-7.45) ABG pCO2 (35-45) mmHg ABG pO2 (83-108) mmHg ABG HCO3 (21-25) mmol/L ABG Total CO2 (19-24) mmol/L ABG O2 Saturation (94-97) % Carbon Dioxide 19 L (22-30) mmol/L BUN 20 H (7-17) mg/dL Creatinine 2.34 H (0.52-1.04) mg/dL Glucose 129 H (74-99) mg/dL POC Glucose (mg/dL) (75-99) mg/dL Calcium 6.8 L (8.4-10.2) mg/dL Total Bilirubin 6.6 H (0.2-1.3) mg/dL AST 840 H (14-36) U/L ALT 289 H (9-52) U/L Alkaline Phosphatase 395 H (38-126) U/L Total Protein 3.8 L (6.3-8.2) g/dL Albumin 2.3 L (3.5-5.0) g/dL Crossmatch 04/20/18 04/20/18 04/20/18 Range/Units 04:41 05:18 08:11 WBC (3.8-10.6) k/uL RBC (3.80-5.40) m/uL Hgb (11.4-16.0) gm/dL Hct (34.0-46.0) % RDW (11.5-15.5) % Plt Count (150-450) k/uL PT (9.0-12.0) sec INR (<1.2) APTT (22.0-30.0) sec ABG pH (7.35-7.45) ABG pCO2 32 L (35-45) mmHg ABG pO2 284 H (83-108) mmHg ABG HCO3 (21-25) mmol/L ABG Total CO2 (19-24) mmol/L ABG O2 Saturation 100.0 H (94-97) % Carbon Dioxide (22-30) mmol/L BUN (7-17) mg/dL Creatinine (0.52-1.04) mg/dL Glucose (74-99) mg/dL POC Glucose (mg/dL) 152 H 177 H (75-99) mg/dL Calcium (8.4-10.2) mg/dL Total Bilirubin (0.2-1.3) mg/dL AST (14-36) U/L ALT (9-52) U/L Alkaline Phosphatase (38-126) U/L Total Protein (6.3-8.2) g/dL Albumin (3.5-5.0) g/dL Crossmatch 04/20/18 Range/Units 12:11 WBC (3.8-10.6) k/uL RBC (3.80-5.40) m/uL Hgb (11.4-16.0) gm/dL Hct (34.0-46.0) % RDW (11.5-15.5) % Plt Count (150-450) k/uL PT (9.0-12.0) sec INR (<1.2) APTT (22.0-30.0) sec ABG pH (7.35-7.45) ABG pCO2 (35-45) mmHg ABG pO2 (83-108) mmHg ABG HCO3 (21-25) mmol/L ABG Total CO2 (19-24) mmol/L ABG O2 Saturation (94-97) % Carbon Dioxide (22-30) mmol/L BUN (7-17) mg/dL Creatinine (0.52-1.04) mg/dL Glucose (74-99) mg/dL POC Glucose (mg/dL) 245 H (75-99) mg/dL Calcium (8.4-10.2) mg/dL Total Bilirubin (0.2-1.3) mg/dL AST (14-36) U/L ALT (9-52) U/L Alkaline Phosphatase (38-126) U/L Total Protein (6.3-8.2) g/dL Albumin (3.5-5.0) g/dL Crossmatch Assessment and Plan (1) Elevated liver enzymes Narrative/Plan: 47-year-old female admitted with a BOONE HTN sepsis VRE UTI hypotension with underlying pulmonary sarcoidosis elevated liver enzymes. Etiology of acute elevated liver enzymes is multifactorial suspect a component of sepsis shock liver from hypotensive events leading up to hospitalization as well as possible medication induced. Liver function tests were within normal limits prior to admission but are worsening daily. She has underlying hepatic steatosis, diabetes mellitus, morbid obesity, and is in the process of undergoing outpatient neurologic evaluation for possible sarcoidosis of the brain. Current Visit: Yes Status: Acute Code(s): R74.8 - ABNORMAL LEVELS OF OTHER SERUM ENZYMES SNOMED Code(s): 437390539 (2) Anemia Narrative/Plan: Multifactorial no obvious signs of GI bleeding. Current Visit: Yes Status: Acute Code(s): D64.9 - ANEMIA, UNSPECIFIED SNOMED Code(s): 075810822 (3) Coagulopathy Current Visit: Yes Status: Acute Code(s): D68.9 - COAGULATION DEFECT, UNSPECIFIED SNOMED Code(s): 90142022 Plan: 1. Liver function tests are worsening PT/INR daily; INR 1.8. Vitamin K 10 mg daily 3 days for suspected cholestasis. Serologic workup for chronic liver disease evaluated by Dr. Briceño. From a GI standpoint Dr. Briceño does not feel transfer to tertiary center is necessary at this time. Overall condition is guarded. Will continue to follow. Assessment and plan a care discussed with Dr. Briceño
[2018-04-20] MEDS: SODIUM CHLORIDE 0.9% 1,000 ML IV SCH ×2 (15:33→22:59)
[2018-04-20 15:53] LABS: Glucose,Whole Blood 131 mg/dL (75-99)
[2018-04-20] MEDS ORDERED: PHYTONADIONE ORAL 5 MG/5 ML ORAL.SYRG PO STA (15:53)
[2018-04-20] MEDS ORDERED: methylPREDNISolone SOD SUCCI 40 MG/ML 1 ML VIAL IV SCH (16:00)
[2018-04-20] MEDS: NOREPINEPHRINE 16 MG in SODIUM CHLORIDE 0.9% 250 ML IV SCH ×3 (17:33)
[2018-04-20 20:37] LABS: Glucose,Whole Blood 205 mg/dL (75-99)
--- NOTE | 2018-04-20 21:09 | PN ---
PROGRESS NOTE DATE OF SERVICE: 04/20/2018. REASON FOR FOLLOWUP: 1. A VRE urinary tract infection adequately treated. 2. Possible aspiration pneumonitis. 3. Bilateral groin cutaneous candidiasis and left forearm wound. INTERVAL HISTORY: The patient got intubated to protect her airway. The patient is currently intubated on the vent, requiring pressor support to maintain her blood pressure. No diarrhea has been noticed. Currently sedated on the vent and unable to provide any history. No family members were available at bedside. EXAMINATION: Blood pressure 98/64 with a pulse of 117, temperature of 98.1. She is 100% on 35% FiO2. General description is an elderly female lying in bed in no distress. RESPIRATORY SYSTEM: Unlabored breathing with decreased breath sounds at the base. No wheeze. HEART: S1, S2. Regular rate and rhythm. ABDOMEN: Soft, no tenderness. EXTREMITIES: Significant swelling and some blister formation on the left leg. No redness. LABS: Hemoglobin is 7.9, white count 26.6, BUN of 20, creatinine 4.34. Liver enzymes are elevated. DIAGNOSTIC IMPRESSION AND PLAN: 1. Patient admitted to the hospital with hypertension that has been multifactorial and did have a component of VRE urinary tract infection that has been adequately treated. Currently off the daptomycin. 2. The patient now with acute respiratory failure which is likely multifactorial, underlying pneumonia not entirely excluded. The patient is currently covered with Zosyn. That will be continued. We will try to obtain a sputum. 3. Bilateral groin cutaneous candidiasis. Continue with nystatin powder. Overall prognosis remains to be poor. Continue supportive care. MMODL / IJN: [id number] /
[2018-04-21] MEDS: PIPERACILLIN-TAZOBACTAM 3.375 GM in SODIUM CHLORIDE 0.9% 100 ML IVPB SCH ×3 (00:37→16:09)
[2018-04-21 00:52] LABS: Glucose,Whole Blood 243 mg/dL (75-99)
[2018-04-21] MEDS: INSULIN ASPART 100 UNIT/ML 1 ML 10 ML VIAL SQ SCH ×6 (00:58→22:01)
[2018-04-21] MEDS: PROPOFOL 1,000 MG in EMPTY BAG 1 BAG IV SCH ×7 (02:16→21:58)
[2018-04-21 04:26] LABS: Glucose,Whole Blood 224 mg/dL (75-99)
[2018-04-21 05:03] LABS: Anisocytosis Slight; HCT 20.1 % (34.0-46.0); HGB 7.3 gm/dL (11.4-16.0); MCHC 36.2 g/dL (31.0-37.0); MCV 91.1 fL (80.0-100.0); Mean Platelet Volume 9.5; Platelet Count 102 k/uL (150-450); Poikilocytosis Slight; WBC 26.8 k/uL (3.8-10.6)
[2018-04-21 05:17] LABS: Albumin 2.2 g/dL (3.5-5.0); Calcium 6.8 mg/dL (8.4-10.2); Magnesium 1.8 mg/dL (1.6-2.3); Phosphorus 2.3 mg/dL (2.5-4.5); Potassium 2.8 mmol/L (3.5-5.1); Total Protein 3.6 g/dL (6.3-8.2)
[2018-04-21 05:21] LABS: ABG Base Excess 2.9 mmol/L; ABG HCO3 27 mmol/L (21-25); ABG PCO2 38 mmHg (35-45); ABG PH 7.46 (7.35-7.45); ABG PO2 84 mmHg (83-108); ABG TCO2 28 mmol/L (19-24)
[2018-04-21 05:24] LABS: INR 1.5 (<1.2); Partial Thromboplastin Time 52.8 sec (22.0-30.0); Prothrombin Time 13.7 sec (9.0-12.0)
[2018-04-21] MEDS: METOCLOPRAMIDE 5 MG/ML 2 ML VIAL IVP SCH ×3 (05:59→16:54)
[2018-04-21] MEDS ORDERED: POTASSIUM BICARBONATE/CIT AC 20 MEQ TABLET.EFF PO ONE (06:06)
[2018-04-21] MEDS: BUDESONIDE 0.5 MG/2 ML NEBU INHALATION SCH ×2 (07:29→19:20)
[2018-04-21] MEDS: ALBUTEROL NEBULIZED 2.5 MG/3 ML INHALATION SCH ×3 (07:29→19:20)
[2018-04-21] MEDS: SODIUM BICARBONATE TAB 650 MG TAB PO SCH ×2 (07:59→21:58)
[2018-04-21] MEDS: HEPARIN SODIUM,PORCINE 5,000 UNIT/ML 1 ML VIAL SQ SCH ×2 (07:59→16:53)
[2018-04-21] MEDS: methylPREDNISolone SOD SUCCI 125 MG/2 ML VIAL IV SCH ×2 (07:59→16:15)
[2018-04-21] MEDS: CHLORHEXIDINE GLUCONATE 15 ML CUP MUCOUS MEM SCH ×2 (07:59→21:58)
[2018-04-21] MEDS: NYSTATIN 100,000 UNIT/GM POWD 15 GM TOPICAL SCH ×2 (08:00→21:59)
[2018-04-21] MEDS: PETROLATUM, WHITE OINT 50 GM TUBE TOPICAL SCH ×2 (08:00→21:59)
[2018-04-21] MEDS: MIDODRINE 5 MG TAB PO SCH ×3 (08:00→16:54)
[2018-04-21] MEDS: CALCIUM ACETATE 667 MG CAP PO SCH (08:00)
[2018-04-21] MEDS: ZINC OXIDE 20% OINT 28.4 GM TUBE TOPICAL SCH ×3 (08:01→21:59)
[2018-04-21] MEDS: PANTOPRAZOLE 40 MG/10 ML VIAL IVP SCH (08:18)
[2018-04-21 08:19] LABS: Glucose,Whole Blood 223 mg/dL (75-99)
[2018-04-21] MEDS: PHYTONADIONE ORAL 5 MG/5 ML ORAL.SYRG PO SCH (11:20)
[2018-04-21 11:57] LABS: Glucose,Whole Blood 177 mg/dL (75-99)
--- NOTE | 2018-04-21 12:40 | CONS ---
CONSULTATION She was seen again on 04/28/2018. She has been hemodynamically unstable requiring Levophed. She remains sedated on the vent at this time. On physical examination, her respiratory rate is 24, pulse rate of 80, temperature 98.1, blood pressure 116/62. HEENT reveals ET tube in place. Chest with decreased breath sounds. Cardiovascular system is S1, S2. Abdomen is soft. There is 2+ to 3+ pedal edema. There are bullous lesions in the lower extremity, etiology which is unclear. Urine from April 09, 2018 is showing vancomycin-resistant Enterococcus faecium. Sputum from 05/17/2018 has shown no growth so far. Labs include a white count of 26.8, hemoglobin of 7.3, platelet count of 102,000. ABG showed a pH of 7.46, pCO2 of 38, PO2 of 84, bicarb of 27 on FiO2 of 35%. BUN of 18, creatinine 1.84, sodium 137, potassium 2.8, chloride 102, bicarb 24, calcium 6.8, AST 343, ALT 206, alkaline phosphatase 337, albumin 2.2. IMPRESSION: 1. Acute on chronic respiratory failure due to obesity/hypoventilation syndrome. 2. Sarcoidosis. 3. Possible obstructive sleep apnea. 4. Sepsis with septic shock. 5. Anemia that is multifactorial in part contributing to her hypotension. 6. Acute renal failure. 7. Bullous lesion of the lower extremity, etiology which is unclear. Infectious versus non infectious etiology. 8. Sarcoidosis for which she has been on high-dose steroids in the past. At this point in time, would recommend transfusing 1 unit of packed cells to further decrease her need for Levophed, discontinue her clonidine, which may be causing hypotension. Continue her on antibiotics. Consideration should be given for tracheostomy and PEG tube placement with possible transfer to LTAC when she is otherwise stable. Her prognosis at this time is guarded. I did discuss my thoughts with the patient's nurses, who has a fair understanding of my recommendations. MMCHIPL / IJN: [id number] /
--- NOTE | 2018-04-21 12:49 | XR ---
EXAMINATION TYPE: XR chest 1V portable DATE OF EXAM: 04/21/2018 COMPARISON: 04/20/2018 HISTORY: Tube placed TECHNIQUE: Single frontal view of the chest is obtained. FINDINGS: ET and NG tube stable. Right-sided central line stable. No sizable pneumothorax. Bilateral consolidation and pleural effusion are stable. Central interstitial pattern noted. Apical pleural th ickening stable. IMPRESSION: 1. Pleural-parenchymal changes are stable correlate for pneumonia versus CHF.
--- NOTE | 2018-04-21 14:16 | PN ---
PROGRESS NOTE DATE OF SERVICE: 04/21/2018 REASON FOR FOLLOWUP: 1. Possible aspiration pneumonia. 2. VRE UTI adequately treated. 3. Multiple leg wounds and blisters. INTERVAL HISTORY: The patient is currently afebrile. She is still requiring a low dose pressor support for her blood pressure. She remains to be intubated on the vent. FiO2 is currently stable. She has been tolerating her tube feeds per the RN. No significant diarrhea reported. PHYSICAL EXAMINATION: Blood pressure 104/55 with a pulse of 73, temperature 98.2, she is 100% on 35% FiO2. General description is a middle-aged female lying in bed in no distress. RESPIRATORY SYSTEM: Unlabored breathing, clear to auscultation anteriorly. HEART: S1, S2. Regular rate and rhythm. ABDOMEN: Soft, nondistended, no guarding. No rigidity. Left leg with multiple blisters, but no redness. LABS: Hemoglobin is 7.8, white count 26.8 with a BUN of 18, creatinine 1.84. Liver enzymes have shown downward trend. Sputum culture currently pending. DIAGNOSTIC IMPRESSION AND PLAN: 1. Patient admitted to the hospital with hypertension, which is likely multifactorial. The patient has possible component of VRE UTI that has been adequately treated subsequently, did have a worsening renal failure that is requiring dialysis with evidence of fluid overload with multiple distress to the left flank, but no cellulitis and possibility of aspiration pneumonitis. Patient currently covered with Zosyn. She will be continued on . 2. Groin area cutaneous candidiasis. Continue with nystatin powder. 3. Left leg multiple blisters, monitor closely, pending up rupturing. Will be treated with Aquacel Silver dressing followed by an Gurwinder wrap to keep the swelling down. Overall prognosis remains to be guarded. MMODL / IJN: [id number] /
--- NOTE | 2018-04-21 14:52 | P.PN ---
Subjective Progress Note Date: 04/21/18 (Critical care time 45 minutes) Principal diagnosis: Generalized anasarca, severe symptomatic hypotension, Acute renal failure, Severe sepsis and septic shock associated with urinary tract infection, pulmonary sarcoidosis, severe morbid obesity, obesity hypoventilation syndrome, sleep disorder breathing and sleep apnea, uncontrolled hyperglycemia and type 2 diabetes mellitus, acute renal failure, chronic pain syndrome, fluctuating hypo- and hypertension, acute on chronic anemia and anemia of chronic disease 04/21/2018, patient seen eval examined during the rounds while undergoing hemodialysis, patient is being planned for the slow hemodialysis for 6 hours with intent to remove about 2 L, patient has been tolerating dialysis dialysis a relatively better today so far have been finished for 2 hours dialysis and 500 mL of fluid has been removed, he is on propofol drip about 35 mics and well sedated she is breathing with a respiratory currently she is set on assist control mode with a rate of 24, breathing 24 tidal volume is 505 of PEEP and oxygen is down to 35%, patient has been tolerating tube feed very well no significant high residuals were noted, patient remains on levo fed drip currently on for mics with a systolic blood pressure into high 80s and low 90s the levo fed drip is being adjusted accordingly, radiographic Studies laboratory data reviewed care plan discussed with the primary service as well as family present at bedside at length, sputum has been sent and results are pending, labs from today reviewed white cell count is elevated and remains stable hemoglobin 7.3H is slowly trickling down as last check was 7.9 platelet count is 102,000 borderline coagulopathy is present patient is being given vitamin K, x-ray reviewed arterial blood gases are stable the bicarb has improved to 28 now, severe hypokalemia is noted, patient is on replacement as per renal services, LFT noted to be improved compared to yesterday exam 04/20/2018, patient seen eval reexamined during the rounds clinically patient is a not much change from baseline due to severe tachypnea and poor tolerance with the hemodialysis as well as for airway protection patient was intubated electively later on last night, patient remains on full ventilator support, PA or more calm and comfortable, currently patient is on assist control rate of 24 breathing 28 with tidal volume of 505 of PEEP and 70% oxygen, patient is on levo fed drip for mics however systolic blood pressures 80s advised to increase it to 6-7 mics to keep her map around 65-70, there patient is also on propofol 30 mics appears to be tolerating well, we will lower down the FiO2 35%, whole DC the bicarb drip as well as the legs on drip as well, labs and radiographic studies as well as medications reviewed, patient remains on broad-spectrum antibiotics, will continue oral bicarbonate, care plan discussed with the renal service at length as well as primary service, patient will undergo repeat dialysis today, patient will likely require recurrent and daily hemodialysis, will continue other supportive care overall long-term prognosis is poor, depending upon the response of therapy will make further adjustment, critical care time spent 45 minutes 04/19/2018, patient seen eval examined during the rounds continue to have significant intermittent fluctuation in the blood pressure unable to complete the hemodialysis patient remains lethargic and poorly responsive, hyperventilating due to significant metabolic acidosis due to renal failure as well as from the levo fed drip, her chest x-ray performed today revealed left basilar atelectasis, labs reviewed white cell count is up to 21,000 with a hemoglobin drop down to 5.9 platelet count is 1 27,000 Ray a blood gas revealed pH is 7.26 pCO2 26 pO2 169 base deficit is 15, BUN/creatinine is 16 and 2.39, and liver enzyme continue to go up suggestive of possibly shock liver , recent abdominal computed tomography scan has been unremarkable except some changes at [facility] spine ID service is following, there is no obvious source of bleeding has been noted, patient did have a bowel movement earlier today which was normal in appearance, anemia appears to be anemia of chronic disease, overall prognosis is very guarded 04/18/2018, patient seen and evaluated examined during the rounds she is a status post hemodialysis unable to remove over 2 L only 1.8 L of fluid has been removed with hemodialysis patient has significant degree of hemodynamic fluctuation with the levo fed drip went all the way up to 20 mics however now able to bring it down to 7 mics, patient had episode of emesis of BiPAP mask has been removed patient is now nasal cannula patient has been on tube feed well and Reglan 10 mg IV every 6, due to labile blood pressure patient will require a arterial line, labs and medications reviewed from today August chest x- ray overall is stable with stable right-sided PICC line cardiomegaly is been noted some interstitial edema has been noted, stable NG tube, arterial blood gas performed today reviewed the pH is fairly balanced 7.42 pCO2 37 pO2 139 the severity or acidosis has improved Ammann D and creatinine as down to 20/2.84, hemoglobin is 7.4 white cell count is 14,800 Ammann noted to marker alpha- fetoprotein is elevated as well 11.2 04/17/2018, patient seen eval examined during the rounds clinically patient has been doing slightly better in terms of breathing oxygenation stable but continued to require BiPAP support, currently patient is on IPAP of 14 EPAP of 5 with 35% oxygen, the blood pressure did drop down with map into the low 50s levo fed drip is being started, patient is currently undergoing hemodialysis with intent to remove about 2 L of fluid, has had incomplete just 2 hour hemodialysis yesterday, patient is arousable opens eyes does try to follow simple commands slightly more awake now, once dialysis is completed then patient remains stable will reassess and do a swallowing evaluation prior to Dobbhoff or NG tube placement, laboratory data radiographic studies reviewed medications reviewed, white cell count 11,000, hemoglobin is 7.2, BUN/ creatinine slightly improved 27 /3.58, patient remains on broad-spectrum antibiotics high-dose IV steroids methadone is on hold 04/16/2018, patient seen eval examined during the rounds she is currently on 5 mics of the levo fed, the old using and bleeding from the dialysis catheter site has improved and resolved now he shouldn't has been planned for dialysis by renal services, hemodynamics status overall stable, remains on BiPAP with IPAP 14 EPAP of 5 with 35% oxygen, labs from today reviewed no chest x-rays performed today we'll plan for tomorrow including labs, and I'll of is being planned by GI services 04/15/2018, patient seen eval examined during rounds, patient remain somnolent but arousable, remains on BiPAP currently on IPAP of 14 and EPAP of 5 with 35% oxygen, labs reviewed white cell count is trickling down is 11,000, hemoglobin remained stable 8.8, creatinine continued to go up is 4.19 now, as per discussion with the renal service proceed with hemodialysis vascular surgery has been consulted, and they have placed and dialysis catheter but patient is hypertensive also some bruising and blood-tinged discharge from the catheter site is present advised to hold on dialysis tonight 04/14/2018 Patient has been more lethargic throughout the day, has been on BiPAP 14/6 with 35% oxygen patient is gently being rehydrated patient does have diffuse anasarca however chest x-ray continue to be normal with normal heart size no effusion is seen him a subtle basal atelectasis cannot be excluded, and labs from today reviewed white cell count remains stable hemoglobin is unchanged platelet count stable as well, renal functions remains poor BUN/ creatinine continued to get worse 23 and 3.99 urine output is very minimal, patient has not received her methadone today, recommend to DC methadone, it appears that patient may need dialysis/ultrafiltration for generalized anasarca and worsening renal failure 04/13/2018, patient seen eval reexamined during the rounds care plan discussed the renal service patient's chest x-ray unremarkable oxygen is stable, patient remains on BiPAP as needed along with oxygen patient has not been using the BiPAP machine very regularly have discussed with the family as well as patient importance to using the BiPAP regularly, I have also advised to stop or discontinue methadone as it may be interfering with the mental status for now dose has been cut down to half, labs reviewed medications reviewed 04/12/2018, patient seen eval examined during the rounds clinically patient is doing better in terms of hemodynamics but remains intermittently tachycardic which is not much change from baseline blood pressure has been stable, patient did not use her BiPAP machine last night, has been more somnolent she is lethargic but readily arousable, she does answer in simple words, moving all 4 extremities, she was noted to have snoring as well as apneic events, family is present at bedside and have discussed with them at length about importance of using the BiPAP machine each night and when necessary during the day will put the BiPAP again with a setting of 14/5 with 35% oxygen, potassium is up slightly urine culture is positive for Enterococcus faecium/VRE, patient is on daptomycin and Zosyn, IV fluids are 100 mL an hour, BUN/creatinine slightly up and baseline 04/11/2018, patient seen eval examined in ICU patient the continue to have issues associated aches and pain she remains a poor historian however does describe generalized pain throughout the body, patient has been nauseous as well a computed tomography scan of the abdominal and pelvis is being ordered, her lactic acid has improved with the fluid resuscitation, patient has been on broad-spectrum antibiotics I urine culture is positive for enterococcus [place] labs from today reviewed sodium is 1:30 and production of 5.3 her BUN/ creatinine is 15 and 2.99, overall sodium remains stable hyperkalemia is present renal functions continued to be marginal liters lactic acid check was 1.9, chest x-ray remains stable PICC line site is stable borderline cardiomegaly , patient is getting broad-spectrum antibiotics with Vanco mycin, daptomycin and Zosyn patient is a getting therapy for the lower extremity cellulitis as well along with local care 47-year-old morbidly obese female who was seen evaluated examined in the ICU this patient has been a resident of [facility], patient has problems associated with chronic renal insufficiency, sarcoidosis severely morbidly obese was found to have blood pressure only 60s systolic at the [facility] EMS was notified it appears that blood pressure has been extremely fluctuating it was noted to be 90 by EMS however subsequently was in 150 patient was tachypneic and tachycardic as well no chest pain was present overall patient is a poor historian, patient was eventually admitted into the hospital from the emergency department [place] patient underwent a VQ scan with indeterminate findings, CT angiogram be performed due to elevated creatinine Ammann patient has been using BiPAP off and on with a IPAP of 14 and EPAP of 5 and 35% oxygen, patient has been comfortable now she has a low urine output she is getting a fluid challenge of 500 mL crystalloid due to elevated lactic acid followed by 100 mL an hour patient is also on Solu-Cortef which is being switched to Solu-Medrol, currently patient is on bronchodilators and continuation of home medications, heparin for DVT prophylaxis, due to chronic hypertension patient is on midodrine along with broad-spectrum antibiotics along with Zosyn and vancomycin, urine is positive for group D enterococcus, other significant labs were noted to have a lactic acid of 5.8 came down to 3.2 , BUN/creatinine remains stable 40 and 2.93 much chest x-ray revealed cardiomegaly small left-sided pleural effusion with subsegmental atelectasis, patient was transferred to ICU for hypotension and low urine output and elevated lactic acid where she was seen evaluated examined Objective - Vital Signs Vital signs: Vital Signs Temp 98.2 F 04/21/18 12:49 Pulse 74 04/21/18 14:30 Resp 24 04/21/18 14:30 BP 92/50 04/21/18 12:49 Pulse Ox 98 04/21/18 12:49 Intake & Output 04/20/18 04/21/18 04/21/18 18:59 06:59 18:59 Intake Total 9427.643 0465.651 1044.710 Output Total 510 10 1 Balance 665.156 3125.651 1043.710 Weight 174.6 kg 174.6 kg Intake: IV 648 666 392 Dextrose 5% in Water 1, 70 000 ml @ 100 mls/hr IV . [id number] [facility] with Sodium Bicarb (1 Meq/ml) 150 ml Rx#:[id number] Piperacillin-Tazobactam 3 50 .375 gm In Dextrose/Water 1 50ml.bag @ 12.5 mls/hr IVPB Q12HR [facility] Rx#: [id number] Sodium Chloride 0.9% 1, 500 550 350 000 ml @ 50 mls/hr IV . Q20H [facility] Rx#:[id number] pressure bag 78 66 42 Intake, IV Titration 252.653 338.651 182.710 Amount Norepinephrine 16 mg In 52.653 47.044 Sodium Chloride 0.9% 250 ml @ Titrate IV .Q0M [facility] Rx#:[id number] Propofol 1,000 mg In 200 291.607 182.710 Empty Bag 1 bag @ Titrate IV .Q0M [facility] Rx#: [id number] Tube Feeding 330 560 160 Blood Product 0 310 Rc As-1 Unit 0 [id number] Rc Pheresis As-3 Unit 0 310 [id number] Other 90 Output: Urine 10 9 0 Stool 1 1 Other 500 Other: Voiding Method Indwelling Catheter Indwelling Catheter Indwelling Catheter ABP, PAP, CO, CI - Last Documented Arterial Blood Pressure 98/58 - Exam Gen: This is a morbidly obese 47-year-old Afro Citizen Of [place] female. Sedated with propofol drip on full ventilator support appear more calm and comfortable HEENT: Head is atraumatic, normocephalic. Pupils equal, round. Sclerae is anicteric. Hearing grossly normal. NECK: Supple. No JVD. No lymphadenopathy. No thyromegaly. LUNGS: Diminished bilaterally. Clear to auscultation. No wheezes or rhonchi. No intercostal retractions. Has been on BiPAP support continuously HEART: Regular rate and rhythm. No murmur. ABDOMEN: Morbidly obese. Soft. Bowel sounds are present. No masses. No tenderness. EXTREMITIES: 2+ pedal edema. Chronic skin inflammatory changes early cellulitis cannot be excluded No calf tenderness. No redness. NEUROLOGICAL: Sedated with low-dose propofol - Labs CBC & Chem 7: 04/21/18 04:36 04/21/18 04:36 Labs: Abnormal Lab Results - Last 24 Hours (Table) 04/20/18 04/20/18 04/20/18 Range/Units 15:41 20:06 20:26 WBC (3.8-10.6) k/uL RBC (3.80-5.40) m/uL Hgb (11.4-16.0) gm/dL Hct (34.0-46.0) % RDW (11.5-15.5) % Plt Count (150-450) k/uL PT (9.0-12.0) sec INR (<1.2) APTT (22.0-30.0) sec ABG pH (7.35-7.45) ABG HCO3 (21-25) mmol/L ABG Total CO2 (19-24) mmol/L ABG O2 Saturation (94-97) % Potassium (3.5-5.1) mmol/L BUN (7-17) mg/dL Creatinine (0.52-1.04) mg/dL Glucose (74-99) mg/dL POC Glucose (mg/dL) 131 H 205 H (75-99) mg/dL Calcium (8.4-10.2) mg/dL Phosphorus (2.5-4.5) mg/dL Total Bilirubin (0.2-1.3) mg/dL AST (14-36) U/L ALT (9-52) U/L Alkaline Phosphatase (38-126) U/L Total Protein (6.3-8.2) g/dL Albumin (3.5-5.0) g/dL Crossmatch See Detail 04/21/18 04/21/18 04/21/18 Range/Units 00:40 04:14 04:36 WBC 26.8 H (3.8-10.6) k/uL RBC 2.20 L (3.80-5.40) m/uL Hgb 7.3 L (11.4-16.0) gm/dL Hct 20.1 L (34.0-46.0) % RDW 17.0 H (11.5-15.5) % Plt Count 102 L (150-450) k/uL PT (9.0-12.0) sec INR (<1.2) APTT (22.0-30.0) sec ABG pH (7.35-7.45) ABG HCO3 (21-25) mmol/L ABG Total CO2 (19-24) mmol/L ABG O2 Saturation (94-97) % Potassium (3.5-5.1) mmol/L BUN (7-17) mg/dL Creatinine (0.52-1.04) mg/dL Glucose (74-99) mg/dL POC Glucose (mg/dL) 243 H 224 H (75-99) mg/dL Calcium (8.4-10.2) mg/dL Phosphorus (2.5-4.5) mg/dL Total Bilirubin (0.2-1.3) mg/dL AST (14-36) U/L ALT (9-52) U/L Alkaline Phosphatase (38-126) U/L Total Protein (6.3-8.2) g/dL Albumin (3.5-5.0) g/dL Crossmatch 04/21/18 04/21/18 04/21/18 Range/Units 04:36 04:36 05:17 WBC (3.8-10.6) k/uL RBC (3.80-5.40) m/uL Hgb (11.4-16.0) gm/dL Hct (34.0-46.0) % RDW (11.5-15.5) % Plt Count (150-450) k/uL PT 13.7 H (9.0-12.0) sec INR 1.5 H (<1.2) APTT 52.8 H (22.0-30.0) sec ABG pH 7.46 H (7.35-7.45) ABG HCO3 27 H (21-25) mmol/L ABG Total CO2 28 H (19-24) mmol/L ABG O2 Saturation 99.0 H (94-97) % Potassium 2.8 L (3.5-5.1) mmol/L BUN 18 H (7-17) mg/dL Creatinine 1.84 H (0.52-1.04) mg/dL Glucose 209 H (74-99) mg/dL POC Glucose (mg/dL) (75-99) mg/dL Calcium 6.8 L (8.4-10.2) mg/dL Phosphorus 2.3 L (2.5-4.5) mg/dL Total Bilirubin 6.0 H (0.2-1.3) mg/dL AST 343 H (14-36) U/L ALT 206 H (9-52) U/L Alkaline Phosphatase 337 H (38-126) U/L Total Protein 3.6 L (6.3-8.2) g/dL Albumin 2.2 L (3.5-5.0) g/dL Crossmatch 04/21/18 04/21/18 Range/Units 08:08 11:28 WBC (3.8-10.6) k/uL RBC (3.80-5.40) m/uL Hgb (11.4-16.0) gm/dL Hct (34.0-46.0) % RDW (11.5-15.5) % Plt Count (150-450) k/uL PT (9.0-12.0) sec INR (<1.2) APTT (22.0-30.0) sec ABG pH (7.35-7.45) ABG HCO3 (21-25) mmol/L ABG Total CO2 (19-24) mmol/L ABG O2 Saturation (94-97) % Potassium (3.5-5.1) mmol/L BUN (7-17) mg/dL Creatinine (0.52-1.04) mg/dL Glucose (74-99) mg/dL POC Glucose (mg/dL) 223 H 177 H (75-99) mg/dL Calcium (8.4-10.2) mg/dL Phosphorus (2.5-4.5) mg/dL Total Bilirubin (0.2-1.3) mg/dL AST (14-36) U/L ALT (9-52) U/L Alkaline Phosphatase (38-126) U/L Total Protein (6.3-8.2) g/dL Albumin (3.5-5.0) g/dL Crossmatch Microbiology - Last 24 Hours (Table) 04/21/18 00:29 Sputum Culture - Preliminary Sputum Assessment and Plan Assessment: Labile blood pressure with alternating hypertension followed by hypotension related to severe sepsis and septic shock Acute on chronic renal failure on hemodialysis Progressive worsening renal function and generalized anasarca proceed with hemodialysis as per renal services For ongoing hypotension will maintain patient on levo fed drip a.m. for map about 65-70 so adequate dialysis can be performed, patient is undergoing slow hemodialysis Acute hypoxic and hypercapnic respiratory failure Bilateral basal pneumonia Elevated liver enzyme multifactorial associated with the possibly hypotension Anemia of chronic disease Severe sepsis and septic shock related to enterococcus urinary tract infection with some complaint component from cellulitis of the both lower extremity Bilateral lower extremity cellulitis Elevated lactic acid/metabolic acidosis multifactorial associated with acute on chronic renal failure, urinary tract infection have improved though her and normalized Pulmonary sarcoidosis with possible left lower lobe pneumonia Somnolence and lethargy due to multifactorial processes including methadone currently on hold Small left-sided pleural effusion Dehydration associated with intravascular volume depletion patient is undergoing intermittent crystalloid challenge Severe morbid obesity and obstructive sleep apnea Plan: Continue tube feed Ventilator adjustment Reglan IV labs and x-ray tomorrow Arterial line or better blood pressure monitoring Dialysis as per renal service Dobbhoff tube feed as tolerated Continue broad-spectrum antibiotics DVT and peptic ulcer disease prophylaxis IV steroids, we'll start tapering them down Reviewed labs and radiographic studies ordered for tomorrow, further recommendations pending plan of care as per clinical response of the patient Patient has multiple organ failure with severe sepsis septic shock and hypertension patient has difficult time and tolerating the dialysis, overall long-term prognosis is poor, as per discussion with the family currently patient is a high risk for transfer out of the facility due to being and required ongoing long dialysis on vasopressors and related to her size Further recommendations pending plan of care as per clinical response of patient crackle care time spent 45 minutes Time with Patient: Greater than 30
[2018-04-21] MEDS: SODIUM CHLORIDE 0.9% 1,000 ML IV SCH (16:10)
[2018-04-21 16:20] LABS: Glucose,Whole Blood 154 mg/dL (75-99)
[2018-04-21] MEDS ORDERED: Potassium Replacement Protocol 1 EACH MISC MISCELLANE PRN (19:29)
[2018-04-21 20:11] LABS: Glucose,Whole Blood 170 mg/dL (75-99)
--- NOTE | 2018-04-21 21:43 | PN ---
PROGRESS NOTE HISTORY: Patient was seen this morning for followup for acute kidney injury. She remains oliguric. The patient had not been able to tolerate conventional hemodialysis over the past couple of days. Levophed had increased to about 40 mcg during treatment and we were not able to get fluid off. However, today we will tried to try the SLED procedure. Hemoglobin was down to 7.3 g/dL. The patient has received packed RBCs, previously it had been as low as 5.9. There is no active bleeding noted. Patient remains sedated on the vent. She has significant blisters in her lower extremities. PHYSICAL EXAMINATION: On examination today, blood pressure was 126/80 this morning, heart rate of 71 per minute. Patient is afebrile. Examination of the heart S1, S2. Examination lungs bilateral breath sounds are heard. Abdomen is morbidly obese. Examination lower extremities shows edema 4+ with significant blisters on bilateral lower extremities. [employer] C[employer] WORKER exam cannot be assessed. LABS: Show sodium this morning 137, potassium 2.8, chloride 102, BUN 18, serum creatinine 1.84, hemoglobin of 7.3 g/dL. ASSESSMENT: 1. Acute kidney injury, acute tubular necrosis, currently oliguric. Will proceed with sustained low-efficiency dialysis (SLED) procedure today given the severe volume overload. We will try for about 2 L of ultrafiltration depending on how patient tolerates the treatment. 2. Hypokalemia. We will change tube feeding from Nepro to any other kind of feeding, as patient does not need potassium and phosphorus restriction. 3. Hypophosphatemia. We will hold off on replacement and hopefully the phosphorus will be improve with change in the tube feedings. 4. Vent-dependent respiratory failure. 5. Anemia with no active bleeding noted. Currently status post packed RBCs transfusion. 6. History of sarcoidosis. PLAN: Change the tube feedings from Nepro to any other kind of tube feeding which is not restricted in potassium and phosphorus. Continue with the steroids as well for now. Replace potassium and repeat labs in a.m. MMODL / IJN: [id number] /
[2018-04-21] MEDS: POTASSIUM BICARBONATE/CIT AC 20 MEQ TABLET.EFF NG-TUBE SCH (21:58)
[2018-04-21 22:00] LABS: Glucose,Whole Blood 218 mg/dL (75-99)
[2018-04-21] MEDS: IPRATROPIUM-ALBUTEROL 3 ML NEB INHALATION PRN (23:11)
[2018-04-21 23:51] LABS: Glucose,Whole Blood 176 mg/dL (75-99)
[2018-04-22] MEDS: POTASSIUM BICARBONATE/CIT AC 20 MEQ TABLET.EFF NG-TUBE SCH (01:58)
[2018-04-22] MEDS: PIPERACILLIN-TAZOBACTAM 3.375 GM in SODIUM CHLORIDE 0.9% 100 ML IVPB SCH ×3 (01:58→15:06)
[2018-04-22] MEDS: methylPREDNISolone SOD SUCCI 125 MG/2 ML VIAL IV SCH ×3 (01:58→15:05)
[2018-04-22] MEDS: ZINC OXIDE 20% OINT 28.4 GM TUBE TOPICAL SCH ×5 (01:59→21:09)
[2018-04-22] MEDS: HEPARIN SODIUM,PORCINE 5,000 UNIT/ML 1 ML VIAL SQ SCH ×3 (01:59→17:44)
[2018-04-22] MEDS: METOCLOPRAMIDE 5 MG/ML 2 ML VIAL IVP SCH ×2 (02:01→06:47)
[2018-04-22] MEDS: PROPOFOL 1,000 MG in EMPTY BAG 1 BAG IV SCH ×7 (02:18→21:07)
[2018-04-22] MEDS: IPRATROPIUM-ALBUTEROL 3 ML NEB INHALATION PRN (03:14)
[2018-04-22] MEDS: INSULIN ASPART 100 UNIT/ML 1 ML 10 ML VIAL SQ SCH ×6 (04:42→21:05)
[2018-04-22 04:48] LABS: Glucose,Whole Blood 236 mg/dL (75-99)
[2018-04-22 04:52] LABS: Anisocytosis Slight; HCT 23.1 % (34.0-46.0); HGB 8.5 gm/dL (11.4-16.0); MCHC 36.6 g/dL (31.0-37.0); Mean Platelet Volume 9.4; Poikilocytosis Slight; RBC 2.56 m/uL (3.80-5.40); RDW 17.5 % (11.5-15.5); WBC 37.3 k/uL (3.8-10.6)
[2018-04-22 04:56] LABS: Platelet Count 98 k/uL (150-450)
[2018-04-22 05:20] LABS: Albumin 2.4 g/dL (3.5-5.0); Magnesium 1.8 mg/dL (1.6-2.3); Phosphorus 1.3 mg/dL (2.5-4.5); Potassium 3.7 mmol/L (3.5-5.1); Total Bilirubin 7.1 mg/dL (0.2-1.3); Total Protein 4.1 g/dL (6.3-8.2)
[2018-04-22 05:31] LABS: ABG Base Excess 2.1 mmol/L; ABG HCO3 26 mmol/L (21-25); ABG Oxygen Saturation 97.6 % (94-97); ABG PCO2 39 mmHg (35-45); ABG PH 7.43 (7.35-7.45); ABG PO2 83 mmHg (83-108); ABG TCO2 28 mmol/L (19-24)
--- NOTE | 2018-04-22 07:02 | XR ---
EXAMINATION TYPE: XR chest 1V portable DATE OF EXAM: 04/22/2018 HISTORY: Tube placement. REFERENCE: Previous study dated 04/21/2018. FINDINGS: The patient's ET tube and NG tube remain in place, unchanged in appearance. There is a righ t internal jugular catheter in place. Its tip is at the cavoatrial junction. There is bibasilar airspace disease. The heart is mildly prominent. Vascular congestion has improved. I suspect a small left effusion. IMPRESSION: 1. CONTINUING BIBASILAR AIRSPACE DISEASE. 2. IMPROVEMENT IN THE PATIENT'S VOLUME STATUS.
[2018-04-22] MEDS: ALBUTEROL NEBULIZED 2.5 MG/3 ML INHALATION SCH ×3 (07:41→19:51)
[2018-04-22] MEDS: CHLORHEXIDINE GLUCONATE 15 ML CUP MUCOUS MEM SCH ×2 (08:45→21:06)
[2018-04-22] MEDS: SODIUM BICARBONATE TAB 650 MG TAB PO SCH ×2 (08:45→21:08)
[2018-04-22] MEDS: MIDODRINE 5 MG TAB PO SCH ×3 (08:45→17:44)
[2018-04-22] MEDS: NYSTATIN 100,000 UNIT/GM POWD 15 GM TOPICAL SCH ×2 (08:47→21:08)
[2018-04-22] MEDS: PANTOPRAZOLE 40 MG/10 ML VIAL IVP SCH (08:47)
[2018-04-22] MEDS: PETROLATUM, WHITE OINT 50 GM TUBE TOPICAL SCH ×2 (08:47→21:08)
[2018-04-22] MEDS ORDERED: metFORMIN 500 MG TAB PO SCH (09:00)
[2018-04-22] MEDS: BUDESONIDE 0.5 MG/2 ML NEBU INHALATION SCH ×2 (09:25→19:56)
[2018-04-22 09:34] LABS: Glucose,Whole Blood 206 mg/dL (75-99)
[2018-04-22] MEDS: ALBUMIN HUMAN 25% 50 ML in EMPTY BAG 1 BAG IVPB SCH ×4 (11:04→23:31)
[2018-04-22] MEDS: INSULIN DETEMIR 100 UNIT/ML 10 ML VIAL SQ SCH (11:05)
[2018-04-22] MEDS: SODIUM CHLORIDE 0.9% 1,000 ML IV SCH (11:05)
[2018-04-22 12:17] LABS: Glucose,Whole Blood 202 mg/dL (75-99)
--- NOTE | 2018-04-22 12:31 | P.PN ---
Subjective Progress Note Date: 04/21/18 This is 47 years old female with past medical history significant for sarcoidosis, morbid obesity, diabetes mellitus and multiple comorbidities, residence [facility] who was recently discharged from [facility] presents today from [facility] with hypotension, slight tachycardia and hypoxia. In the emergency department blood pressure was below 90/60, heart rate in the 110 area, oxygen was in the mid 80s patient was started on oxygen and blood work showed elevated creatinine patient was sent to VQ scan which showed intermediate probability with limited examination due to motion factor and patient was started on heparin drip for assumption of pulmonary embolism. Patient is poor historian and unable to provide detailed information and was refusing care per nursing staff since admission to the floor including her medication and using her BiPAP on an as-needed basis. Patient currently is denying chest pain, shortness breath, nausea, vomiting, abdominal pain or productive cough 04/10: Received call today from the nursing staff the patient was really sick, blood pressure was low and was lethargic and sleeping well on BiPAP most the morning and lactic acid was elevated at 5.8 last evening.. She was unable to take her medications or eat this morning. She has increased edema. Patient has only had 150 mL of urine output overnight. She does have a Lopez catheter in. There was no IV access. Patient has been seen by by nephrology and cortisol level ordered along with Solu-Cortef and Lasix 60 mg IV once. Prednisone was discontinued. Patient was transferred into the intensive care unit and consult requested with Dr. Robin for intensive care management. Methadone dose changed to 50 mg daily which is her current dose at [facility]. Diarrhea has resolved. 04/11: Repeat chest x-ray reveals stable cardiomegaly. PICC placement. Patient has been seen by Dr. Colon and vancomycin and daptomycin started, continue Zosyn. Santyl to lower extremity cellulitis. Patient has been seen by Dr. Robin with concern for possible left lower lobe pneumonia, small left pleural effusion and dehydration. This morning, Dr. Moran ordered Lasix 40 mg IV once , IV dextrose 50% and regular insulin. Cortisol level was normal. Steroids are Solu-Medrol 60 mg every 6 hours. Midodrine was started yesterday for blood pressure support. Blood pressure is much improved today. Hemoglobin is 9.3, sodium 131 and potassium 5.3, creatinine 2.99. Capillary blood glucose running between 117 and 134. Lactic acid is now down to 1.9. Vancomycin level 25.6. Patient has been hemodynamically stable, afebrile. Patient has been on BiPAP and this morning is on nasal cannula, she remains lethargic but more alert from yesterday. Lopez catheter is in place. She continues to have lower extremity edema and now with weeping. No diarrhea. Patient has not had a bowel movement since 04/10. Urine output has been adequate at 50 mL per hour for the past 4 hours. She is complaining of nausea and abdominal discomfort for which lipase and CAT scan of the abdomen and pelvis ordered with oral contrast only. 04/12: Patient remains in intensive care unit. She has been hemodynamically stable and Midodrine will be discontinued. Lopez catheter remains in place with good urine output. She had a large bowel movement last evening and a small soft bowel movement today. Creatinine is 3.36 and BUN 17.. Heart rates have been elevated. Patient is more alert today from yesterday. GI consult added for elevated liver function tests and abdominal ultrasound ordered. 04/13: Cardiology consult was added yesterday due to tachycardia and patient was started on Lopressor 12.5 mg twice daily and hold for systolic blood pressure less than 90. TSH was 1.620. She has been on BiPAP during the night. Abdominal ultrasound reveals hepatomegaly correlate for hepatic steatosis, diffuse hepatocellular disease or hepatitis. There is ringing down artifact involving the gallbladder wall which can occasionally be seen with adenomyomatosis. Repeat liver function tests are increasing with total bilirubin 1.8, AST 82, ALT 54, alkaline phosphatase 278. GI is following. BUN 20 and creatinine 3.67, urine output low. She has epigastric tenderness and protonix added to omeprazole. Patient eating very little and refused nephro today. She is cleared to be transferred to Cardiac Step down. 04/14: Patient is more lethargic today. She is refusing to open her mouth. She has had no oral medications nor oral intake. Yesterday she ate a little bit of fluid and Magic cups. She is currently on BiPAP at FiO2 of 35%. Urine output by the time of evaluation was only 25-30 mL. Lasix 80 mg IV ordered by Dr. Moran. Patient may require hemodialysis if renal function does not improve. Today creatinine is at 3.99. Oral sodium bicarb will be switched over to drip. GI is following and has been asked to place Dobbhoff. Ammonia level came back normal at 18. Liver function tests are also worsening. 04/15: Patient is awake this morning on BiPAP. Very little communication but nods her head. She is complaining of nausea and abdominal pain. She had a bowel movement early this morning. Renal function is worse with creatinine of 4.9, hemoglobin 8.8. Nephrology has ordered consult with vascular for [place] catheter placement with plan for hemodialysis today, Tuesday and Tuesday. Urine output has been less than 200 mL over the past 24 hours. Patient to continue on sodium bicarb drip. Nephrology is added back in mid drain. Dobbhoff to be placed today. 04/16: Patient remains in the intensive care unit. She was started on Levophed this morning for blood pressure. She is still on BiPAP. [place] catheter was placed by Dr. Winter yesterday to the right groin but she did have blood loss and was advised to hold off on dialysis. This is improved with no further bleeding. She continues to have scant amount of urine output. Plan from nephrology is for dialysis today she was resumed back on admitted draining yesterday. Bicarb drip is to be discontinued once dialysis is started. Patient is sleeping but awakens to verbal stimuli. She is able to nod to answer questions. She has generalized anasarca. Noted that she has gained 20 kg since admission. She has not had Dobbhoff placed by GI 04/17: Patient is off norepinephrine. Dobbhoff may be placed tonight. She does have a new wound to the right posterior knee area. She also has a skin tear to the left arm. She is currently on antibiotics in form of daptomycin and Zosyn which will be continued. She is undergoing hemodialysis. Hemoglobin is 7.2 with BUN 27 creatinine 3.58. Liver enzymes remain elevated. Hepatitis B surface antibody is reactive at 74. 04/18: Patient will be undergoing hemodialysis this morning. She was placed back on norepinephrine drip last evening and has been intermittently for blood pressure systolic of 80. She is able to answer yes and no to questions. Liver function tests continued to rise. has recommended transfer to [facility] but patient is not candidate for biopsy. We have known in the past that the sister has been very resistant to her transferring out of [place] to [facility]. She now has an NG tube in place and receiving nephro that will be at goal liters today. Hepatitis B surface antibody was reactive at 74. There is concern that she is not been receiving methadone but this has been clarified by pain management that this can be crushed and put an NG tube which will be continued. White count is 14.8, hemoglobin 7.4, INR 1.5. BUN 20 creatinine 2.84 which is improved over the past couple days. AST 663, ALT 212, alkaline phosphatase 392. Total bilirubin is 4.9. Capillary blood glucose running between 130 and 166. We'll plan to monitor for at least another 24 hours and then discuss possible transfer with the family. Records reviewed from [facility]. 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 In 2016, PFT showed mild restriction with normal diffusion capacity. No response to bronchodilators. She had good response to Enbrel for 3 years but had to be stopped due to insurance company authorization. 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 She was not evaluated by neurosurgery and she had improvement of her mental status. MRI of the spine revealed fatty atrophy of the paraspinal musculature. No significant canal compromise or cord compression. Limited evaluation of right brachial plexus with no obvious abnormality. 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 Plan: wean prednisone down by 5 mg every week to end point of 20 mg, follow up with Dr. Gar[facility] April 25 at 1:15 and neurology follow-up with Dr. Garzon on April 03 at 9 AM. 04/19: Patient is more unresponsive today and remains on BiPAP and tachypneic. Patient was started on a Narcan drip last evening and was slightly more awake after this was started but then mental status declined. She was placed back on norepinephrine possibly related to clonidine patch. She is receiving 2 units of packed RBCs this morning for hemoglobin of 5.9. Dialysis was attempted this morning but due to hypotension this was not completed. She was started on a bicarb drip and nephrology adding an oral bicarb as well. Plan to attempt hemodialysis tomorrow. She has had scant urine output. She is tolerating tube feedings at goal. Limited echocardiogram revealed EF 60-65%, mild tricuspid regurgitation and moderate pulmonary hypertension. GI is recommending transfer to tertiary care center have PT/INR worsens. INR 1.6. AST 829, ALT 262, alkaline phosphatase 420, albumin 2.3. We did order 3 doses of albumin yesterday and will repeat today. Dr. Robin attempted a right IJ triple-lumen catheter and has been ordered for PICC line placement. CAT scan of the abdomen and pelvis without contrast showed fatty infiltration of the liver. Nonobstructive right renal calculi. Abdomen pelvis unchanged. Extensive subcutaneous edema bilaterally that is probably increased. No retroperitoneal hemorrhage. White count jumped to 28.7. Dr. Colon has discontinued daptomycin as treatment is completed for VRE UTI. Zosyn started for new left lower lobe infiltrate, possible aspiration she was vomiting yesterday. Cortisol level and ACTH will be checked in the morning 04/20: Patient was intubated last night. She is on levo at 8 mics. She is scheduled for hemodialysis today. She has had no urine output. She is currently off the Narcan drip and bicarb drip. Respiratory status appears more comfortable on the ventilator. She did have a right-sided IJ triple-lumen placed by Dr. Robin yesterday. Discussed with father, option of transfer to [facility] and he is undecided. He states that they are not going to do anything different than what transfer. Await further input from consultants. White count is 26.6, hemoglobin 7.9, platelet count 124, INR 1.8, BUN 20 creatinine 2.34. Total bilirubin 6.6, AST 840, ALT 289, alkaline phosphatase 395. Cortisol level came back at 41 and ACTH 5.19. 04/21: Patient undergoing dialysis today. Levo currently at 4 mics. She has received another unit of packed RBCs. Hemodialysis got off 500 mL yesterday. No plan for sedation holiday. Dr. Robin is following. Dr. Thompson discussed in detail the patient's current condition and prognosis with the patient's sister. Plan is to continue current treatment. Review Of Systems: Intubated and on mechanical ventilation Objective - Vital Signs Vital signs: Vital Signs Temp 98.2 F 04/21/18 12:49 Pulse 73 04/21/18 12:49 Resp 24 04/21/18 12:49 BP 92/50 04/21/18 12:49 Pulse Ox 98 04/21/18 12:49 Intake & Output 04/20/18 04/21/18 04/21/18 18:59 06:59 18:59 Intake Total 8931.073 3722.651 964.710 Output Total 510 10 0 Balance 430.967 5136.651 964.710 Weight 174.6 kg 174.6 kg Intake: IV 648 666 392 Dextrose 5% in Water 1, 70 000 ml @ 100 mls/hr IV . [id number] [facility] with Sodium Bicarb (1 Meq/ml) 150 ml Rx#:[id number] Piperacillin-Tazobactam 3 50 .375 gm In Dextrose/Water 1 50ml.bag @ 12.5 mls/hr IVPB Q12HR [facility] Rx#: [id number] Sodium Chloride 0.9% 1, 500 550 350 000 ml @ 50 mls/hr IV . Q20H [facility] Rx#:[id number] pressure bag 78 66 42 Intake, IV Titration 252.653 338.651 182.710 Amount Norepinephrine 16 mg In 52.653 47.044 Sodium Chloride 0.9% 250 ml @ Titrate IV .Q0M [facility] Rx#:[id number] Propofol 1,000 mg In 200 291.607 182.710 Empty Bag 1 bag @ Titrate IV .Q0M [facility] Rx#: [id number] Tube Feeding 330 560 80 Blood Product 0 310 Rc As-1 Unit 0 [id number] Rc Pheresis As-3 Unit 0 310 [id number] Other 90 Output: Urine 10 9 0 Stool 1 Other 500 Other: Voiding Method Indwelling Catheter Indwelling Catheter Indwelling Catheter ABP, PAP, CO, CI - Last Documented Arterial Blood Pressure 104/55 - Exam Gen: This is a morbidly obese 47-year-old female. She is in ICU bed intubated and on mechanical ventilation. Patient appears to be comfortable. HEENT: Head is atraumatic, normocephalic. Pupils equal, round. Sclerae is anicteric. Hearing grossly normal. Oral ET and NG tube in place NECK: Supple. No JVD. No lymphadenopathy. No thyromegaly. LUNGS: Diminished bilaterally. Clear to auscultation. No wheezes or rhonchi. No intercostal retractions. HEART: Regular rate and rhythm. No murmur. ABDOMEN: Morbidly obese. Generalized anasarca Soft. Bowel sounds are present. No masses. Positive epigastric tenderness. Lopez catheter draining clear benjy urine, scant amount. EXTREMITIES: 2+ pedal edema with serous weeping. No calf tenderness. +wound posterior bilateral lower extremities, groins, bilateral arms. NEUROLOGICAL: Patient is sedated. - Labs CBC & Chem 7: 04/22/18 04:30 04/22/18 04:30 Labs: Abnormal Lab Results - Last 24 Hours (Table) 04/20/18 04/20/18 04/20/18 Range/Units 15:41 20:06 20:26 WBC (3.8-10.6) k/uL RBC (3.80-5.40) m/uL Hgb (11.4-16.0) gm/dL Hct (34.0-46.0) % RDW (11.5-15.5) % Plt Count (150-450) k/uL PT (9.0-12.0) sec INR (<1.2) APTT (22.0-30.0) sec ABG pH (7.35-7.45) ABG HCO3 (21-25) mmol/L ABG Total CO2 (19-24) mmol/L ABG O2 Saturation (94-97) % Potassium (3.5-5.1) mmol/L BUN (7-17) mg/dL Creatinine (0.52-1.04) mg/dL Glucose (74-99) mg/dL POC Glucose (mg/dL) 131 H 205 H (75-99) mg/dL Calcium (8.4-10.2) mg/dL Phosphorus (2.5-4.5) mg/dL Total Bilirubin (0.2-1.3) mg/dL AST (14-36) U/L ALT (9-52) U/L Alkaline Phosphatase (38-126) U/L Total Protein (6.3-8.2) g/dL Albumin (3.5-5.0) g/dL Crossmatch See Detail 04/21/18 04/21/18 04/21/18 Range/Units 00:40 04:14 04:36 WBC 26.8 H (3.8-10.6) k/uL RBC 2.20 L (3.80-5.40) m/uL Hgb 7.3 L (11.4-16.0) gm/dL Hct 20.1 L (34.0-46.0) % RDW 17.0 H (11.5-15.5) % Plt Count 102 L (150-450) k/uL PT (9.0-12.0) sec INR (<1.2) APTT (22.0-30.0) sec ABG pH (7.35-7.45) ABG HCO3 (21-25) mmol/L ABG Total CO2 (19-24) mmol/L ABG O2 Saturation (94-97) % Potassium (3.5-5.1) mmol/L BUN (7-17) mg/dL Creatinine (0.52-1.04) mg/dL Glucose (74-99) mg/dL POC Glucose (mg/dL) 243 H 224 H (75-99) mg/dL Calcium (8.4-10.2) mg/dL Phosphorus (2.5-4.5) mg/dL Total Bilirubin (0.2-1.3) mg/dL AST (14-36) U/L ALT (9-52) U/L Alkaline Phosphatase (38-126) U/L Total Protein (6.3-8.2) g/dL Albumin (3.5-5.0) g/dL Crossmatch 04/21/18 04/21/18 04/21/18 Range/Units 04:36 04:36 05:17 WBC (3.8-10.6) k/uL RBC (3.80-5.40) m/uL Hgb (11.4-16.0) gm/dL Hct (34.0-46.0) % RDW (11.5-15.5) % Plt Count (150-450) k/uL PT 13.7 H (9.0-12.0) sec INR 1.5 H (<1.2) APTT 52.8 H (22.0-30.0) sec ABG pH 7.46 H (7.35-7.45) ABG HCO3 27 H (21-25) mmol/L ABG Total CO2 28 H (19-24) mmol/L ABG O2 Saturation 99.0 H (94-97) % Potassium 2.8 L (3.5-5.1) mmol/L BUN 18 H (7-17) mg/dL Creatinine 1.84 H (0.52-1.04) mg/dL Glucose 209 H (74-99) mg/dL POC Glucose (mg/dL) (75-99) mg/dL Calcium 6.8 L (8.4-10.2) mg/dL Phosphorus 2.3 L (2.5-4.5) mg/dL Total Bilirubin 6.0 H (0.2-1.3) mg/dL AST 343 H (14-36) U/L ALT 206 H (9-52) U/L Alkaline Phosphatase 337 H (38-126) U/L Total Protein 3.6 L (6.3-8.2) g/dL Albumin 2.2 L (3.5-5.0) g/dL Crossmatch 04/21/18 04/21/18 Range/Units 08:08 11:28 WBC (3.8-10.6) k/uL RBC (3.80-5.40) m/uL Hgb (11.4-16.0) gm/dL Hct (34.0-46.0) % RDW (11.5-15.5) % Plt Count (150-450) k/uL PT (9.0-12.0) sec INR (<1.2) APTT (22.0-30.0) sec ABG pH (7.35-7.45) ABG HCO3 (21-25) mmol/L ABG Total CO2 (19-24) mmol/L ABG O2 Saturation (94-97) % Potassium (3.5-5.1) mmol/L BUN (7-17) mg/dL Creatinine (0.52-1.04) mg/dL Glucose (74-99) mg/dL POC Glucose (mg/dL) 223 H 177 H (75-99) mg/dL Calcium (8.4-10.2) mg/dL Phosphorus (2.5-4.5) mg/dL Total Bilirubin (0.2-1.3) mg/dL AST (14-36) U/L ALT (9-52) U/L Alkaline Phosphatase (38-126) U/L Total Protein (6.3-8.2) g/dL Albumin (3.5-5.0) g/dL Crossmatch Microbiology - Last 24 Hours (Table) 04/21/18 00:29 Sputum Culture - Preliminary Sputum Assessment and Plan Plan: 1. Sepsis with septic shock secondary to urinary tract infection with lactic acidosis. Intensive care unit management. PICC line ordered for IV access. Consults with Dr. Robin and Dr. Colon appreciated. Patient completed course of daptomycin. IVF per Dr. Moran 2. Intermediate probability of pulmonary embolism ruled out. Pulmonary medicine is following 3. Acute respiratory failure on chronic respiratory failure with hypoxia. Continue albuterol nebulizer treatments every 6 hours, DuoNeb treatments every 4 hours as needed, Pulmicort twice daily, Solu-Medrol. Intubated and on mechanical ventilation management by Dr. Rodas 4. Morbid obesity with BMI of 59. 5. Neurogenic bladder with incontinence. Urinary retention requiring Lopez catheter placement. 6. Diabetes mellitus type 2 insulin-dependent. Metformin on hold. NovoLog scale before meals and at bedtime. 7. Debility and deconditioning. 8. Dehydration. 9. Acute kidney injury and ATN likely secondary to dehydration with hyperkalemia. Consult with nephrology appreciated. [place] catheter has been placed by Dr. Winter. Patient on hemodialysis, bicarb drip, oral bicarb. Admitted during resumed and off Levofed. 10. Sarcoidosis following with [facility] on daily dose of steroids. 11. Hyperkalemia 12. Metabolic encephalopathy secondary to sepsis, respiratory failure, liver failure. 13. Chronic pain. Methadone discontinued and patient was placed on Narcan drip. 14. Abdominal pain with worsening liver function tests mostly secondary to heart failure and congestion. 15. Severe protein calorie malnutrition. NG tube feedings. Dietitian is following. Albumin IV ordered. 16. Metabolic acidosis. Sodium bicarb oral and IV. 17. GERD and possible gastritis. Continue Pepcid and Protonix 18. Aspiration pneumonia. Continue Zosyn. Dr. adorno is following. 19. Multiorgan failure with respiratory, renal and liver failure. CODE STATUS: Full code Prognosis guarded Discharge plan: Return to [facility] as long-term resident. Patient is known to have guardian. (Sister and father). Patient may be candidate for hospice in the near future. Impression and plan of care have been directed as dictated by the signing physician. Jeanne Roca nurse practitioner acting as scribe for signing physician.
--- NOTE | 2018-04-22 12:37 | P.PN ---
Subjective Progress Note Date: 04/22/18 This is 47 years old female with past medical history significant for sarcoidosis, morbid obesity, diabetes mellitus and multiple comorbidities, residence of residential who was recently discharged from [facility] presents today from residential with hypotension, slight tachycardia and hypoxia. In the emergency department blood pressure was below 90/60, heart rate in the 110 area, oxygen was in the mid 80s patient was started on oxygen and blood work showed elevated creatinine patient was sent to VQ scan which showed intermediate probability with limited examination due to motion factor and patient was started on heparin drip for assumption of pulmonary embolism. Patient is poor historian and unable to provide detailed information and was refusing care per nursing staff since admission to the floor including her medication and using her BiPAP on an as-needed basis. Patient currently is denying chest pain, shortness breath, nausea, vomiting, abdominal pain or productive cough 04/10: Received call today from the nursing staff the patient was really sick, blood pressure was low and was lethargic and sleeping well on BiPAP most the morning and lactic acid was elevated at 5.8 last evening.. She was unable to take her medications or eat this morning. She has increased edema. Patient has only had 150 mL of urine output overnight. She does have a Lopez catheter in. There was no IV access. Patient has been seen by by nephrology and cortisol level ordered along with Solu-Cortef and Lasix 60 mg IV once. Prednisone was discontinued. Patient was transferred into the intensive care unit and consult requested with Dr. Robin for intensive care management. Methadone dose changed to 50 mg daily which is her current dose at [facility]. Diarrhea has resolved. 04/11: Repeat chest x-ray reveals stable cardiomegaly. PICC placement. Patient has been seen by Dr. Colon and vancomycin and daptomycin started, continue Zosyn. Santyl to lower extremity cellulitis. Patient has been seen by Dr. Robin with concern for possible left lower lobe pneumonia, small left pleural effusion and dehydration. This morning, Dr. Moran ordered Lasix 40 mg IV once , IV dextrose 50% and regular insulin. Cortisol level was normal. Steroids are Solu-Medrol 60 mg every 6 hours. Midodrine was started yesterday for blood pressure support. Blood pressure is much improved today. Hemoglobin is 9.3, sodium 131 and potassium 5.3, creatinine 2.99. Capillary blood glucose running between 117 and 134. Lactic acid is now down to 1.9. Vancomycin level 25.6. Patient has been hemodynamically stable, afebrile. Patient has been on BiPAP and this morning is on nasal cannula, she remains lethargic but more alert from yesterday. Lopez catheter is in place. She continues to have lower extremity edema and now with weeping. No diarrhea. Patient has not had a bowel movement since 04/10. Urine output has been adequate at 50 mL per hour for the past 4 hours. She is complaining of nausea and abdominal discomfort for which lipase and CAT scan of the abdomen and pelvis ordered with oral contrast only. 04/12: Patient remains in intensive care unit. She has been hemodynamically stable and Midodrine will be discontinued. Lopez catheter remains in place with good urine output. She had a large bowel movement last evening and a small soft bowel movement today. Creatinine is 3.36 and BUN 17.. Heart rates have been elevated. Patient is more alert today from yesterday. GI consult added for elevated liver function tests and abdominal ultrasound ordered. 04/13: Cardiology consult was added yesterday due to tachycardia and patient was started on Lopressor 12.5 mg twice daily and hold for systolic blood pressure less than 90. TSH was 1.620. She has been on BiPAP during the night. Abdominal ultrasound reveals hepatomegaly correlate for hepatic steatosis, diffuse hepatocellular disease or hepatitis. There is ringing down artifact involving the gallbladder wall which can occasionally be seen with adenomyomatosis. Repeat liver function tests are increasing with total bilirubin 1.8, AST 82, ALT 54, alkaline phosphatase 278. GI is following. BUN 20 and creatinine 3.67, urine output low. She has epigastric tenderness and protonix added to omeprazole. Patient eating very little and refused nephro today. She is cleared to be transferred to Cardiac Step down. 04/14: Patient is more lethargic today. She is refusing to open her mouth. She has had no oral medications nor oral intake. Yesterday she ate a little bit of fluid and Magic cups. She is currently on BiPAP at FiO2 of 35%. Urine output by the time of evaluation was only 25-30 mL. Lasix 80 mg IV ordered by Dr. Moran. Patient may require hemodialysis if renal function does not improve. Today creatinine is at 3.99. Oral sodium bicarb will be switched over to drip. GI is following and has been asked to place Dobbhoff. Ammonia level came back normal at 18. Liver function tests are also worsening. 04/15: Patient is awake this morning on BiPAP. Very little communication but nods her head. She is complaining of nausea and abdominal pain. She had a bowel movement early this morning. Renal function is worse with creatinine of 4.9, hemoglobin 8.8. Nephrology has ordered consult with vascular for [place] catheter placement with plan for hemodialysis today, Tuesday and Tuesday. Urine output has been less than 200 mL over the past 24 hours. Patient to continue on sodium bicarb drip. Nephrology is added back in mid drain. Dobbhoff to be placed today. 04/16: Patient remains in the intensive care unit. She was started on Levophed this morning for blood pressure. She is still on BiPAP. [place] catheter was placed by Dr. Winter yesterday to the right groin but she did have blood loss and was advised to hold off on dialysis. This is improved with no further bleeding. She continues to have scant amount of urine output. Plan from nephrology is for dialysis today she was resumed back on admitted draining yesterday. Bicarb drip is to be discontinued once dialysis is started. Patient is sleeping but awakens to verbal stimuli. She is able to nod to answer questions. She has generalized anasarca. Noted that she has gained 20 kg since admission. She has not had Dobbhoff placed by GI 04/17: Patient is off norepinephrine. Dobbhoff may be placed tonight. She does have a new wound to the right posterior knee area. She also has a skin tear to the left arm. She is currently on antibiotics in form of daptomycin and Zosyn which will be continued. She is undergoing hemodialysis. Hemoglobin is 7.2 with BUN 27 creatinine 3.58. Liver enzymes remain elevated. Hepatitis B surface antibody is reactive at 74. 04/18: Patient will be undergoing hemodialysis this morning. She was placed back on norepinephrine drip last evening and has been intermittently for blood pressure systolic of 80. She is able to answer yes and no to questions. Liver function tests continued to rise. has recommended transfer to [facility] but patient is not candidate for biopsy. We have known in the past that the sister has been very resistant to her transferring out of [place] to [facility]. She now has an NG tube in place and receiving nephro that will be at goal liters today. Hepatitis B surface antibody was reactive at 74. There is concern that she is not been receiving methadone but this has been clarified by pain management that this can be crushed and put an NG tube which will be continued. White count is 14.8, hemoglobin 7.4, INR 1.5. BUN 20 creatinine 2.84 which is improved over the past couple days. AST 663, ALT 212, alkaline phosphatase 392. Total bilirubin is 4.9. Capillary blood glucose running between 130 and 166. We'll plan to monitor for at least another 24 hours and then discuss possible transfer with the family. Records reviewed from [facility]. 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 In 2016, PFT showed mild restriction with normal diffusion capacity. No response to bronchodilators. She had good response to Enbrel for 3 years but had to be stopped due to insurance company authorization. 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 She was not evaluated by neurosurgery and she had improvement of her mental status. MRI of the spine revealed fatty atrophy of the paraspinal musculature. No significant canal compromise or cord compression. Limited evaluation of right brachial plexus with no obvious abnormality. 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 Plan: wean prednisone down by 5 mg every week to end point of 20 mg, follow up with Dr. Gar[facility] April 25 at 1:15 and neurology follow-up with Dr. Garzon on April 03 at 9 AM. 04/19: Patient is more unresponsive today and remains on BiPAP and tachypneic. Patient was started on a Narcan drip last evening and was slightly more awake after this was started but then mental status declined. She was placed back on norepinephrine possibly related to clonidine patch. She is receiving 2 units of packed RBCs this morning for hemoglobin of 5.9. Dialysis was attempted this morning but due to hypotension this was not completed. She was started on a bicarb drip and nephrology adding an oral bicarb as well. Plan to attempt hemodialysis tomorrow. She has had scant urine output. She is tolerating tube feedings at goal. Limited echocardiogram revealed EF 60-65%, mild tricuspid regurgitation and moderate pulmonary hypertension. GI is recommending transfer to tertiary care center have PT/INR worsens. INR 1.6. AST 829, ALT 262, alkaline phosphatase 420, albumin 2.3. We did order 3 doses of albumin yesterday and will repeat today. Dr. Robin attempted a right IJ triple-lumen catheter and has been ordered for PICC line placement. CAT scan of the abdomen and pelvis without contrast showed fatty infiltration of the liver. Nonobstructive right renal calculi. Abdomen pelvis unchanged. Extensive subcutaneous edema bilaterally that is probably increased. No retroperitoneal hemorrhage. White count jumped to 28.7. Dr. Colon has discontinued daptomycin as treatment is completed for VRE UTI. Zosyn started for new left lower lobe infiltrate, possible aspiration she was vomiting yesterday. Cortisol level and ACTH will be checked in the morning 04/20: Patient was intubated last night. She is on levo at 8 mics. She is scheduled for hemodialysis today. She has had no urine output. She is currently off the Narcan drip and bicarb drip. Respiratory status appears more comfortable on the ventilator. She did have a right-sided IJ triple-lumen placed by Dr. Robin yesterday. Discussed with father, option of transfer to [facility] and he is undecided. He states that they are not going to do anything different than what transfer. Await further input from consultants. White count is 26.6, hemoglobin 7.9, platelet count 124, INR 1.8, BUN 20 creatinine 2.34. Total bilirubin 6.6, AST 840, ALT 289, alkaline phosphatase 395. Cortisol level came back at 41 and ACTH 5.19. 04/21: Patient undergoing dialysis today. Levo currently at 4 mics. She has received another unit of packed RBCs. Hemodialysis got off 500 mL yesterday. No plan for sedation holiday. Dr. oRbin is following. Dr. Thompson discussed in detail the patient's current condition and prognosis with the patient's sister. Plan is to continue current treatment. 04/22: Patient was on levo fed at 4 mics needed to be increased to 10 while on hemodialysis. And it up getting 2 L off of with hemodialysis yesterday. She is on Solu-Medrol 60 mg IV every 6 hours it was started by Dr. KASIE Anderson. Blood sugars are running high and patient will be placed on Levemir 15 units daily. She is planned for a sedation holiday today. She is having liquid stools 2-3 per day and Reglan will be stopped. Triglyceride level will be checked as patient has been on propofol. Yesterday she did receive a dose of vitamin K for INR 1.5. Today creatinine is 1.48 with BUN of 16. Liver function tests are improving except for bilirubin continues to increase and currently at 7.1. AST 298, ALT 195 and alkaline phosphatase 430. Triglycerides came back at 915. Repeat chest x-ray shows bibasilar airspace disease. Improvement in patient' s findings status. Review Of Systems: Intubated and on mechanical ventilation Objective - Vital Signs Vital signs: Vital Signs Temp 97.5 F L 04/22/18 04:00 Pulse 99 04/22/18 07:55 Resp 24 04/22/18 07:00 BP 109/70 04/21/18 17:55 Pulse Ox 98 04/22/18 07:00 Intake & Output 04/21/18 04/22/18 04/22/18 18:59 06:59 18:59 Intake Total 8918.969 7458.542 101 Output Total 2106 9 0 Balance -293.716 1440.542 101 Weight 174.6 kg 171.4 kg Intake: IV 672 672 56 Sodium Chloride 0.9% 1, 600 600 50 000 ml @ 50 mls/hr IV . Q20H LESLIE Rx#:[id number] pressure bag 72 72 6 Intake, IV Titration 349.150 274.542 Amount Propofol 1,000 mg In 349.150 274.542 Empty Bag 1 bag @ Titrate IV .Q0M LESLIE Rx#: [id number] Tube Feeding 240 535 45 Blood Product 620 Rc As-1 Unit 310 [id number] Rc Pheresis As-3 Unit 310 [id number] Output: Urine 5 5 0 Stool 1 4 Other 2100 Other: Voiding Method Indwelling Catheter Indwelling Catheter # Voids 1 ABP, PAP, CO, CI - Last Documented Arterial Blood Pressure 105/69 - Exam Gen: This is a morbidly obese 47-year-old female. She is in ICU bed intubated and on mechanical ventilation. Patient appears to be comfortable. HEENT: Head is atraumatic, normocephalic. Pupils equal, round. Sclerae is anicteric. Oral ET and NG tube in place NECK: Supple. No JVD. No lymphadenopathy. No thyromegaly. LUNGS: Diminished bilaterally. Clear to auscultation. No wheezes or rhonchi. No intercostal retractions. HEART: Regular rate and rhythm. No murmur. ABDOMEN: Morbidly obese. Generalized anasarca Soft. Bowel sounds are present. No masses. Positive epigastric tenderness. Lopez catheter draining clear benjy urine, scant amount. EXTREMITIES: 2+ pedal edema with serous weeping. No calf tenderness. +wound posterior bilateral lower extremities, groins, bilateral arms. NEUROLOGICAL: Patient is sedated. - Labs CBC & Chem 7: 04/22/18 04:30 04/22/18 04:30 Labs: Abnormal Lab Results - Last 24 Hours (Table) 04/20/18 04/21/18 04/21/18 Range/Units 20:06 11:28 14:32 WBC (3.8-10.6) k/uL RBC (3.80-5.40) m/uL Hgb (11.4-16.0) gm/dL Hct (34.0-46.0) % RDW (11.5-15.5) % Plt Count (150-450) k/uL ABG HCO3 (21-25) mmol/L ABG Total CO2 (19-24) mmol/L ABG O2 Saturation (94-97) % Potassium 3.3 L (3.5-5.1) mmol/L Creatinine (0.52-1.04) mg/dL Glucose (74-99) mg/dL POC Glucose (mg/dL) 177 H (75-99) mg/dL Calcium (8.4-10.2) mg/dL Phosphorus (2.5-4.5) mg/dL Total Bilirubin (0.2-1.3) mg/dL AST (14-36) U/L ALT (9-52) U/L Alkaline Phosphatase (38-126) U/L Total Protein (6.3-8.2) g/dL Albumin (3.5-5.0) g/dL Crossmatch See Detail 04/21/18 04/21/18 04/21/18 Range/Units 16:08 19:59 21:46 WBC (3.8-10.6) k/uL RBC (3.80-5.40) m/uL Hgb (11.4-16.0) gm/dL Hct (34.0-46.0) % RDW (11.5-15.5) % Plt Count (150-450) k/uL ABG HCO3 (21-25) mmol/L ABG Total CO2 (19-24) mmol/L ABG O2 Saturation (94-97) % Potassium (3.5-5.1) mmol/L Creatinine (0.52-1.04) mg/dL Glucose (74-99) mg/dL POC Glucose (mg/dL) 154 H 170 H 218 H (75-99) mg/dL Calcium (8.4-10.2) mg/dL Phosphorus (2.5-4.5) mg/dL Total Bilirubin (0.2-1.3) mg/dL AST (14-36) U/L ALT (9-52) U/L Alkaline Phosphatase (38-126) U/L Total Protein (6.3-8.2) g/dL Albumin (3.5-5.0) g/dL Crossmatch 04/21/18 04/22/18 04/22/18 Range/Units 23:40 04:30 04:30 WBC 37.3 H (3.8-10.6) k/uL RBC 2.56 L (3.80-5.40) m/uL Hgb 8.5 L (11.4-16.0) gm/dL Hct 23.1 L (34.0-46.0) % RDW 17.5 H (11.5-15.5) % Plt Count 98 L (150-450) k/uL ABG HCO3 (21-25) mmol/L ABG Total CO2 (19-24) mmol/L ABG O2 Saturation (94-97) % Potassium (3.5-5.1) mmol/L Creatinine 1.48 H (0.52-1.04) mg/dL Glucose 215 H (74-99) mg/dL POC Glucose (mg/dL) 176 H (75-99) mg/dL Calcium 7.0 L (8.4-10.2) mg/dL Phosphorus 1.3 L (2.5-4.5) mg/dL Total Bilirubin 7.1 H (0.2-1.3) mg/dL AST 298 H (14-36) U/L ALT 195 H (9-52) U/L Alkaline Phosphatase 430 H (38-126) U/L Total Protein 4.1 L (6.3-8.2) g/dL Albumin 2.4 L (3.5-5.0) g/dL Crossmatch 04/22/18 04/22/18 Range/Units 04:36 05:27 WBC (3.8-10.6) k/uL RBC (3.80-5.40) m/uL Hgb (11.4-16.0) gm/dL Hct (34.0-46.0) % RDW (11.5-15.5) % Plt Count (150-450) k/uL ABG HCO3 26 H (21-25) mmol/L ABG Total CO2 28 H (19-24) mmol/L ABG O2 Saturation 97.6 H (94-97) % Potassium (3.5-5.1) mmol/L Creatinine (0.52-1.04) mg/dL Glucose (74-99) mg/dL POC Glucose (mg/dL) 236 H (75-99) mg/dL Calcium (8.4-10.2) mg/dL Phosphorus (2.5-4.5) mg/dL Total Bilirubin (0.2-1.3) mg/dL AST (14-36) U/L ALT (9-52) U/L Alkaline Phosphatase (38-126) U/L Total Protein (6.3-8.2) g/dL Albumin (3.5-5.0) g/dL Crossmatch Microbiology - Last 24 Hours (Table) 04/21/18 00:29 Gram Stain - Preliminary Sputum Sputum Culture - Preliminary Assessment and Plan Plan: 1. Sepsis with septic shock secondary to urinary tract infection with lactic acidosis. Intensive care unit management. PICC line ordered for IV access. Consults with Dr. Robin and Dr. Colon appreciated. Patient completed course of daptomycin. IVF per Dr. Moran 2. Intermediate probability of pulmonary embolism ruled out. Pulmonary medicine is following 3. Acute respiratory failure on chronic respiratory failure with hypoxia. Continue albuterol nebulizer treatments every 6 hours, DuoNeb treatments every 4 hours as needed, Pulmicort twice daily, Solu-Medrol. Intubated and on mechanical ventilation management by Dr. Robin 4. Morbid obesity with BMI of 59. 5. Neurogenic bladder with incontinence. Urinary retention requiring Lopez catheter placement. 6. Diabetes mellitus type 2 insulin-dependent. Metformin on hold. NovoLog scale before meals and at bedtime. 7. Debility and deconditioning. 8. Dehydration. 9. Acute kidney injury and ATN likely secondary to dehydration with hyperkalemia. Consult with nephrology appreciated. [place] catheter has been placed by Dr. Winter. Patient on hemodialysis, bicarb drip, oral bicarb. Admitted during resumed and off Levofed. 10. 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 11. Hyperkalemia 12. Metabolic encephalopathy secondary to sepsis, respiratory failure, liver failure. 13. Chronic pain. Methadone discontinued and patient was placed on Narcan drip. 14. Abdominal pain with worsening liver function tests mostly secondary to heart failure and congestion. 15. Severe protein calorie malnutrition. NG tube feedings. Dietitian is following. Albumin IV ordered. 16. Metabolic acidosis. Sodium bicarb oral and IV. 17. GERD and possible gastritis. Continue Pepcid and Protonix 18. Aspiration pneumonia. Continue Zosyn. Dr. Colon is following. 19. Multiorgan failure with respiratory, renal and liver failure. CODE STATUS: Full code Prognosis guarded Discharge plan: Return to [facility] as long-term resident. Patient is known to have guardian. (Sister and father). Patient may be candidate for hospice in the near future. Impression and plan of care have been directed as dictated by the signing physician. Jeanne Roca nurse practitioner acting as scribe for signing physician.
--- NOTE | 2018-04-22 12:38 | PN ---
PROGRESS NOTE DATE OF SERVICE: 04/22/2018 She was seen on 04/22/2018. She has been hemodynamically somewhat unstable requiring Levophed while being dialyzed. Her blood pressure is 99/71 on 5 mics of Levophed. Respiratory rate of 24, O2 saturation on 35% FiO2 on the vent is 100% HEENT reveals ET tube in place. Chest reveals decreased breath sounds. Cardiovascular system reveals an S1, S2. Abdomen is soft. There is 1+ to 2+ pedal edema with bullous changes of the lower extremity. Labs revealed an ABG, pH of 7.43, pCO2 of 39, PO2 of 83, bicarb of 26, O2 saturation of 97.6 on 35% FiO2. White count is 37.3 with an hemoglobin of 8.5, platelet count of 98,000. Sodium 137, potassium 3.7, chloride 103, bicarb 24, BUN 16, creatinine 1.48, glucose 236. IMPRESSION: At this time is: 1. Acute on chronic respiratory failure. 2. Obesity hypoventilation syndrome. 3. Sepsis with septic shock. 4. Anemia that is multifactorial. 5. Sarcoidosis for which she requires high dose IV steroids. 6. Leukocytosis that is multifactorial, partly due to infectious process, but also due to steroids. 7. Bullous changes in the lower extremities, etiology which is unclear. It is unclear if this is related to sarcoidosis, but she would require steroids to help with this and local wound care. Her prognosis at this time is extremely guarded. Would recommend consideration for tracheostomy as well as PEG tube placement and when otherwise stable, discharge planning possibly to an LTAC. MMODL / IJN: [id number] /
[2018-04-22] MEDS: PHYTONADIONE ORAL 5 MG/5 ML ORAL.SYRG PO SCH (14:48)
[2018-04-22 16:32] LABS: Glucose,Whole Blood 202 mg/dL (75-99)
[2018-04-22] MEDS ORDERED: Phosphorus Replacement Protoco 1 EACH MISC MISCELLANE PRN (18:20)
[2018-04-22] MEDS ORDERED: POTASSIUM PHOSPHATE 10 MMOL in SODIUM CHLORIDE 0.9% 100 ML IV ONE (19:00)
[2018-04-22 20:40] LABS: Glucose,Whole Blood 204 mg/dL (75-99)
[2018-04-22] MEDS ORDERED: POTASSIUM PHOSPHATE 10 MMOL in SODIUM CHLORIDE 0.9% 250 ML IV ONE (21:00)
[2018-04-22 23:32] LABS: Glucose,Whole Blood 238 mg/dL (75-99)
[2018-04-23] MEDS: PIPERACILLIN-TAZOBACTAM 3.375 GM in SODIUM CHLORIDE 0.9% 100 ML IVPB SCH ×3 (01:00→18:42)
[2018-04-23] MEDS: HEPARIN SODIUM,PORCINE 5,000 UNIT/ML 1 ML VIAL SQ SCH ×2 (01:00→08:15)
[2018-04-23] MEDS: methylPREDNISolone SOD SUCCI 125 MG/2 ML VIAL IV SCH ×3 (01:00→18:43)
[2018-04-23] MEDS: INSULIN ASPART 100 UNIT/ML 1 ML 10 ML VIAL SQ SCH ×6 (01:01→21:06)
[2018-04-23] MEDS: PROPOFOL 1,000 MG in EMPTY BAG 1 BAG IV SCH ×6 (01:27→11:03)
[2018-04-23 04:34] LABS: Glucose,Whole Blood 259 mg/dL (75-99)
[2018-04-23 05:40] LABS: ABG Base Excess -0.8 mmol/L; ABG HCO3 24 mmol/L (21-25); ABG Oxygen Saturation 97.8 % (94-97); ABG PCO2 39 mmHg (35-45); ABG PO2 88 mmHg (83-108); ABG TCO2 25 mmol/L (19-24)
--- NOTE | 2018-04-23 06:46 | XR ---
EXAMINATION TYPE: XR chest 1V portable DATE OF EXAM: 04/23/2018 HISTORY: Tube placement. REFERENCE: Previous study dated 04/22/2018. FINDINGS: The patient is ET tube has migrated. Its tip is now 19.1 mm from the guanako. The patient is NG tube remains in place unchanged in appearance. A right internal jugular catheter also remains in place and is unchanged in appearance. There is bibasilar airspace disease. That on the left has worsened slightly. There is a small left ef fusion. The heart is not enlarged. IMPRESSION: 1. DISTAL MIGRATION OF THE PATIENT'S ET TUBE. 2. WORSENING LEFT BASILAR AIRSPACE DISEASE. 3. I COULD NOT EXCLUDE A SMALL LEFT EFFUSION.
[2018-04-23 06:55] LABS: Albumin 2.8 g/dL (3.5-5.0); Calcium 6.9 mg/dL (8.4-10.2); Magnesium 1.6 mg/dL (1.6-2.3); Phosphorus 1.7 mg/dL (2.5-4.5); Potassium 4.1 mmol/L (3.5-5.1); Total Protein 4.5 g/dL (6.3-8.2)
[2018-04-23] MEDS ORDERED: Magnesium Replacement Protocol 1 EACH MISC MISCELLANE PRN (07:15)
--- NOTE | 2018-04-23 07:20 | PN ---
PROGRESS NOTE Patient was seen this morning. She is seen for followup for acute kidney injury. Yesterday the patient tolerated dialysis fairly well with the UF of about 2 L. We did SLED treatment. She remains on the vent. EXAMINATION: This morning blood pressure was 99/71. The patient is seen on hemodialysis. The heart rate is about 112 per minute. The patient is afebrile. Levophed is up to about 9 mcg. We have goal UF set for about 2-3 L today. Examination of the heart: S1, S2. Examination of the lungs: Bilateral breath sounds are heard. The patient remains on the vent. She is sedated. Examination lower extremity shows severe edema with blisters bilaterally. Urine output remains low. Abdomen is morbidly obese and distended. LABS: From this morning show sodium 137, potassium 3.7, chloride 103, calcium 7.0, phosphorus was 1.3, magnesium 1.8. ASSESSMENT: 1. Acute kidney injury, acute tubular necrosis, currently oliguric and dialysis dependent. The patient did not tolerate conventional hemodialysis. We did SLED procedure which she tolerated fairly well and we had about 2 L of ultrafiltration yesterday. Will try for about 3 L of UF today. 2. Severe volume overload. Continue with dialysis. The patient remains with poor urine output. 3. Vent dependent respiratory failure. 4. History of sarcoidosis. 5. Hypophosphatemia. Will replace and repeat phosphorus in a.m. 6. Hypokalemia, status post replacement yesterday and with dialysis. Tube feedings have been changed from Nepro to Vital Darrick. PLAN: Replace phosphorus. Repeat hemodialysis in a.m. again with goal UF of about 2-3 L. We will repeat the SLED procedure. MMODL / IJN: [id number] /
[2018-04-23] MEDS: ALBUTEROL NEBULIZED 2.5 MG/3 ML INHALATION SCH ×3 (07:42→18:57)
[2018-04-23] MEDS: BUDESONIDE 0.5 MG/2 ML NEBU INHALATION SCH ×2 (07:42→18:58)
[2018-04-23 07:50] LABS: Anisocytosis Slight; Hypochromasia Slight; MCV 90.7 fL (80.0-100.0); Mean Platelet Volume 11.1; Poikilocytosis Moderate; RBC 1.84 m/uL (3.80-5.40); RDW 18.2 % (11.5-15.5)
[2018-04-23 07:54] LABS: MCH 29.7 pg (25.0-35.0); MCHC 33.2 g/dL (31.0-37.0); Platelet Count 88 k/uL (150-450)
[2018-04-23 07:57] LABS: HCT 16.6 % (34.0-46.0); HGB 5.5 gm/dL (11.4-16.0)
[2018-04-23] MEDS: SODIUM BICARBONATE TAB 650 MG TAB PO SCH ×2 (08:12→21:17)
[2018-04-23] MEDS: MIDODRINE 5 MG TAB PO SCH ×3 (08:13→18:43)
[2018-04-23] MEDS: MAGNESIUM SULFATE-D5W PMX 1 GM in DEXTROSE/WATER 1 100ML.BAG IVPB SCH ×2 (08:13→11:03)
[2018-04-23] MEDS: PANTOPRAZOLE 40 MG/10 ML VIAL IVP SCH (08:13)
[2018-04-23] MEDS: SODIUM CHLORIDE 0.9% 1,000 ML IV SCH (08:14)
[2018-04-23 08:27] LABS: Glucose,Whole Blood 218 mg/dL (75-99)
[2018-04-23] MEDS: INSULIN DETEMIR 100 UNIT/ML 10 ML VIAL SQ SCH (08:39)
[2018-04-23] MEDS: CHLORHEXIDINE GLUCONATE 15 ML CUP MUCOUS MEM SCH ×2 (08:40→21:06)
[2018-04-23] MEDS: ZINC OXIDE 20% OINT 28.4 GM TUBE TOPICAL SCH ×4 (08:41→21:07)
[2018-04-23] MEDS: NYSTATIN 100,000 UNIT/GM POWD 15 GM TOPICAL SCH ×2 (08:41→21:06)
[2018-04-23] MEDS: PETROLATUM, WHITE OINT 50 GM TUBE TOPICAL SCH ×2 (08:41→21:07)
[2018-04-23] MEDS: POTASSIUM PHOSPHATE 10 MMOL in SODIUM CHLORIDE 0.9% 100 ML IV SCH ×2 (09:52→11:47)
[2018-04-23] MEDS: ALBUMIN HUMAN 25% 50 ML in EMPTY BAG 1 BAG IVPB SCH ×2 (11:02→11:48)
--- NOTE | 2018-04-23 11:26 | P.PN ---
Subjective Progress Note Date: 04/23/18 This is 47 years old female with past medical history significant for sarcoidosis, morbid obesity, diabetes mellitus and multiple comorbidities, residence of [facility] who was recently discharged from [facility] presents today from [facility] with hypotension, slight tachycardia and hypoxia. In the emergency department blood pressure was below 90/60, heart rate in the 110 area, oxygen was in the mid 80s patient was started on oxygen and blood work showed elevated creatinine patient was sent to VQ scan which showed intermediate probability with limited examination due to motion factor and patient was started on heparin drip for assumption of pulmonary embolism. Patient is poor historian and unable to provide detailed information and was refusing care per nursing staff since admission to the floor including her medication and using her BiPAP on an as-needed basis. Patient currently is denying chest pain, shortness breath, nausea, vomiting, abdominal pain or productive cough 04/10: Received call today from the nursing staff the patient was really sick, blood pressure was low and was lethargic and sleeping well on BiPAP most the morning and lactic acid was elevated at 5.8 last evening.. She was unable to take her medications or eat this morning. She has increased edema. Patient has only had 150 mL of urine output overnight. She does have a Lopez catheter in. There was no IV access. Patient has been seen by by nephrology and cortisol level ordered along with Solu-Cortef and Lasix 60 mg IV once. Prednisone was discontinued. Patient was transferred into the intensive care unit and consult requested with Dr. Robin for intensive care management. Methadone dose changed to 50 mg daily which is her current dose at [facility]. Diarrhea has resolved. 04/11: Repeat chest x-ray reveals stable cardiomegaly. PICC placement. Patient has been seen by Dr. Colon and vancomycin and daptomycin started, continue Zosyn. Santyl to lower extremity cellulitis. Patient has been seen by Dr. Robin with concern for possible left lower lobe pneumonia, small left pleural effusion and dehydration. This morning, Dr. Moran ordered Lasix 40 mg IV once , IV dextrose 50% and regular insulin. Cortisol level was normal. Steroids are Solu-Medrol 60 mg every 6 hours. Midodrine was started yesterday for blood pressure support. Blood pressure is much improved today. Hemoglobin is 9.3, sodium 131 and potassium 5.3, creatinine 2.99. Capillary blood glucose running between 117 and 134. Lactic acid is now down to 1.9. Vancomycin level 25.6. Patient has been hemodynamically stable, afebrile. Patient has been on BiPAP and this morning is on nasal cannula, she remains lethargic but more alert from yesterday. Lopez catheter is in place. She continues to have lower extremity edema and now with weeping. No diarrhea. Patient has not had a bowel movement since 04/10. Urine output has been adequate at 50 mL per hour for the past 4 hours. She is complaining of nausea and abdominal discomfort for which lipase and CAT scan of the abdomen and pelvis ordered with oral contrast only. 04/12: Patient remains in intensive care unit. She has been hemodynamically stable and Midodrine will be discontinued. Lopez catheter remains in place with good urine output. She had a large bowel movement last evening and a small soft bowel movement today. Creatinine is 3.36 and BUN 17.. Heart rates have been elevated. Patient is more alert today from yesterday. GI consult added for elevated liver function tests and abdominal ultrasound ordered. 04/13: Cardiology consult was added yesterday due to tachycardia and patient was started on Lopressor 12.5 mg twice daily and hold for systolic blood pressure less than 90. TSH was 1.620. She has been on BiPAP during the night. Abdominal ultrasound reveals hepatomegaly correlate for hepatic steatosis, diffuse hepatocellular disease or hepatitis. There is ringing down artifact involving the gallbladder wall which can occasionally be seen with adenomyomatosis. Repeat liver function tests are increasing with total bilirubin 1.8, AST 82, ALT 54, alkaline phosphatase 278. GI is following. BUN 20 and creatinine 3.67, urine output low. She has epigastric tenderness and protonix added to omeprazole. Patient eating very little and refused nephro today. She is cleared to be transferred to Cardiac Step down. 04/14: Patient is more lethargic today. She is refusing to open her mouth. She has had no oral medications nor oral intake. Yesterday she ate a little bit of fluid and Magic cups. She is currently on BiPAP at FiO2 of 35%. Urine output by the time of evaluation was only 25-30 mL. Lasix 80 mg IV ordered by Dr. Moran. Patient may require hemodialysis if renal function does not improve. Today creatinine is at 3.99. Oral sodium bicarb will be switched over to drip. GI is following and has been asked to place Dobbhoff. Ammonia level came back normal at 18. Liver function tests are also worsening. 04/15: Patient is awake this morning on BiPAP. Very little communication but nods her head. She is complaining of nausea and abdominal pain. She had a bowel movement early this morning. Renal function is worse with creatinine of 4.9, hemoglobin 8.8. Nephrology has ordered consult with vascular for [place] catheter placement with plan for hemodialysis today, Tuesday and Tuesday. Urine output has been less than 200 mL over the past 24 hours. Patient to continue on sodium bicarb drip. Nephrology is added back in mid drain. Dobbhoff to be placed today. 04/16: Patient remains in the intensive care unit. She was started on Levophed this morning for blood pressure. She is still on BiPAP. [place] catheter was placed by Dr. Winter yesterday to the right groin but she did have blood loss and was advised to hold off on dialysis. This is improved with no further bleeding. She continues to have scant amount of urine output. Plan from nephrology is for dialysis today she was resumed back on admitted draining yesterday. Bicarb drip is to be discontinued once dialysis is started. Patient is sleeping but awakens to verbal stimuli. She is able to nod to answer questions. She has generalized anasarca. Noted that she has gained 20 kg since admission. She has not had Dobbhoff placed by GI 04/17: Patient is off norepinephrine. Dobbhoff may be placed tonight. She does have a new wound to the right posterior knee area. She also has a skin tear to the left arm. She is currently on antibiotics in form of daptomycin and Zosyn which will be continued. She is undergoing hemodialysis. Hemoglobin is 7.2 with BUN 27 creatinine 3.58. Liver enzymes remain elevated. Hepatitis B surface antibody is reactive at 74. 04/18: Patient will be undergoing hemodialysis this morning. She was placed back on norepinephrine drip last evening and has been intermittently for blood pressure systolic of 80. She is able to answer yes and no to questions. Liver function tests continued to rise. has recommended transfer to [facility] but patient is not candidate for biopsy. We have known in the past that the sister has been very resistant to her transferring out of [place] to [facility]. She now has an NG tube in place and receiving nephro that will be at goal liters today. Hepatitis B surface antibody was reactive at 74. There is concern that she is not been receiving methadone but this has been clarified by pain management that this can be crushed and put an NG tube which will be continued. White count is 14.8, hemoglobin 7.4, INR 1.5. BUN 20 creatinine 2.84 which is improved over the past couple days. AST 663, ALT 212, alkaline phosphatase 392. Total bilirubin is 4.9. Capillary blood glucose running between 130 and 166. We'll plan to monitor for at least another 24 hours and then discuss possible transfer with the family. Records reviewed from [facility]. 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 In 2016, PFT showed mild restriction with normal diffusion capacity. No response to bronchodilators. She had good response to Enbrel for 3 years but had to be stopped due to insurance company authorization. 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 She was not evaluated by neurosurgery and she had improvement of her mental status. MRI of the spine revealed fatty atrophy of the paraspinal musculature. No significant canal compromise or cord compression. Limited evaluation of right brachial plexus with no obvious abnormality. 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 Plan: wean prednisone down by 5 mg every week to end point of 20 mg, follow up with Dr. Gar[facility] April 25 at 1:15 and neurology follow-up with Dr. Garzon on April 03 at 9 AM. 04/19: Patient is more unresponsive today and remains on BiPAP and tachypneic. Patient was started on a Narcan drip last evening and was slightly more awake after this was started but then mental status declined. She was placed back on norepinephrine possibly related to clonidine patch. She is receiving 2 units of packed RBCs this morning for hemoglobin of 5.9. Dialysis was attempted this morning but due to hypotension this was not completed. She was started on a bicarb drip and nephrology adding an oral bicarb as well. Plan to attempt hemodialysis tomorrow. She has had scant urine output. She is tolerating tube feedings at goal. Limited echocardiogram revealed EF 60-65%, mild tricuspid regurgitation and moderate pulmonary hypertension. GI is recommending transfer to tertiary care center have PT/INR worsens. INR 1.6. AST 829, ALT 262, alkaline phosphatase 420, albumin 2.3. We did order 3 doses of albumin yesterday and will repeat today. Dr. Robin attempted a right IJ triple-lumen catheter and has been ordered for PICC line placement. CAT scan of the abdomen and pelvis without contrast showed fatty infiltration of the liver. Nonobstructive right renal calculi. Abdomen pelvis unchanged. Extensive subcutaneous edema bilaterally that is probably increased. No retroperitoneal hemorrhage. White count jumped to 28.7. Dr. Colon has discontinued daptomycin as treatment is completed for VRE UTI. Zosyn started for new left lower lobe infiltrate, possible aspiration she was vomiting yesterday. Cortisol level and ACTH will be checked in the morning 04/20: Patient was intubated last night. She is on levo at 8 mics. She is scheduled for hemodialysis today. She has had no urine output. She is currently off the Narcan drip and bicarb drip. Respiratory status appears more comfortable on the ventilator. She did have a right-sided IJ triple-lumen placed by Dr. Robin yesterday. Discussed with father, option of transfer to [facility] and he is undecided. He states that they are not going to do anything different than what transfer. Await further input from consultants. White count is 26.6, hemoglobin 7.9, platelet count 124, INR 1.8, BUN 20 creatinine 2.34. Total bilirubin 6.6, AST 840, ALT 289, alkaline phosphatase 395. Cortisol level came back at 41 and ACTH 5.19. 04/21: Patient undergoing dialysis today. Levo currently at 4 mics. She has received another unit of packed RBCs. Hemodialysis got off 500 mL yesterday. No plan for sedation holiday. Dr. Robin is following. Dr. Thompson discussed in detail the patient's current condition and prognosis with the patient's sister. Plan is to continue current treatment. 04/22: Patient was on levo fed at 4 mics needed to be increased to 10 while on hemodialysis. And it up getting 2 L off of with hemodialysis yesterday. She is on Solu-Medrol 60 mg IV every 6 hours it was started by Dr. KASIE Anderson. Blood sugars are running high and patient will be placed on Levemir 15 units daily. She is planned for a sedation holiday today. She is having liquid stools 2-3 per day and Reglan will be stopped. Triglyceride level will be checked as patient has been on propofol. Yesterday she did receive a dose of vitamin K for INR 1.5. Today creatinine is 1.48 with BUN of 16. Liver function tests are improving except for bilirubin continues to increase and currently at 7.1. AST 298, ALT 195 and alkaline phosphatase 430. Triglycerides came back at 915. Repeat chest x-ray shows bibasilar airspace disease. Improvement in patient' s findings status. 04/23: Level came back at 915 possibly related to propranolol. Nursing to update Dr. Robin regarding possibly changing to another agent for sedation. Patient was not able to tolerate a sedation holiday yesterday. She remains on ventilator with tidal volume 500 FiO2 60 and PEEP of 5. Patient is undergoing hemodialysis this morning. She continues to have very minimal urine output that is brown in color. Extremities have weeping wounds. Sclerae jaundiced. White count 33.2, hemoglobin 5.5 and platelet count is 88. BUN is 18 and creatinine 1.35. Blood sugars are running in the low 200s. PTT and PT are elevated and had to be sent to [facility] for testing. Dr. Robin to be notified. Patient did have hip antibody screen which came back negative on April 19. Patient is currently on norepinephrine at 11 mics. Review Of Systems: Intubated and on mechanical ventilation Objective - Vital Signs Vital signs: Vital Signs Temp 97.7 F 04/23/18 10:40 Pulse 95 04/23/18 10:40 Resp 28 H 04/23/18 10:40 BP 128/73 04/23/18 10:40 Pulse Ox 100 04/23/18 10:40 Intake & Output 04/22/18 04/23/18 04/23/18 19:59 06:59 18:59 Intake Total 628.97 Output Total 0 Balance 628.97 Weight Intake: IV 280 Sodium Chloride 0.9% 1, 250 000 ml @ 50 mls/hr IV . Q20H [facility] Rx#:[id number] pressure bag 30 Intake, IV Titration 195.97 Amount Norepinephrine 16 mg In Sodium Chloride 0.9% 250 ml @ Titrate IV .Q0M [facility] Rx#:[id number] Propofol 1,000 mg In 195.97 Empty Bag 1 bag @ Titrate IV .Q0M [facility] Rx#: [id number] Tube Feeding 153 Blood Product 0 Rc Pheresis As-3 Unit 0 [id number] Other Output: Urine 0 Stool Other Other: Voiding Method Indwelling Catheter # Voids ABP, PAP, CO, CI - Last Documented Arterial Blood Pressure 111/68 - Exam Gen: This is a morbidly obese 47-year-old female. She is in ICU bed intubated and on mechanical ventilation. Patient appears to be comfortable. HEENT: Head is atraumatic, normocephalic. Pupils equal, round. Sclerae is icteric. Oral ET and NG tube in place NECK: Supple. No JVD. No lymphadenopathy. No thyromegaly. LUNGS: Diminished bilaterally. Clear to auscultation. No wheezes or rhonchi. No intercostal retractions. HEART: Regular rate and rhythm. No murmur. ABDOMEN: Morbidly obese. Generalized anasarca Soft. Bowel sounds are present. No masses. Positive epigastric tenderness. Lopez catheter draining clear benjy urine, scant amount. EXTREMITIES: 2-3+ pedal edema with serous weeping severe to lower extremities. No calf tenderness. +wound posterior bilateral lower extremities, groins, bilateral arms. NEUROLOGICAL: Patient is sedated. - Labs CBC & Chem 7: 04/23/18 07:43 04/23/18 05:30 Labs: Abnormal Lab Results - Last 24 Hours (Table) 04/20/18 04/22/18 04/22/18 Range/Units 20:06 16:19 20:29 WBC (3.8-10.6) k/uL RBC (3.80-5.40) m/uL Hgb (11.4-16.0) gm/dL Hct (34.0-46.0) % RDW (11.5-15.5) % Plt Count (150-450) k/uL ABG Total CO2 (19-24) mmol/L ABG O2 Saturation (94-97) % Sodium (137-145) mmol/L Carbon Dioxide (22-30) mmol/L BUN (7-17) mg/dL Creatinine (0.52-1.04) mg/dL Glucose (74-99) mg/dL POC Glucose (mg/dL) 202 H 204 H (75-99) mg/dL Calcium (8.4-10.2) mg/dL Phosphorus (2.5-4.5) mg/dL Total Bilirubin (0.2-1.3) mg/dL AST (14-36) U/L ALT (9-52) U/L Alkaline Phosphatase (38-126) U/L Total Protein (6.3-8.2) g/dL Albumin (3.5-5.0) g/dL Crossmatch See Detail 04/22/18 04/23/18 04/23/18 Range/Units 23:20 04:22 05:30 WBC (3.8-10.6) k/uL RBC (3.80-5.40) m/uL Hgb (11.4-16.0) gm/dL Hct (34.0-46.0) % RDW (11.5-15.5) % Plt Count (150-450) k/uL ABG Total CO2 (19-24) mmol/L ABG O2 Saturation (94-97) % Sodium 136 L (137-145) mmol/L Carbon Dioxide 20 L (22-30) mmol/L BUN 18 H (7-17) mg/dL Creatinine 1.35 H (0.52-1.04) mg/dL Glucose 263 H (74-99) mg/dL POC Glucose (mg/dL) 238 H 259 H (75-99) mg/dL Calcium 6.9 L (8.4-10.2) mg/dL Phosphorus 1.7 L (2.5-4.5) mg/dL Total Bilirubin 8.0 H (0.2-1.3) mg/dL AST 524 H (14-36) U/L ALT 231 H (9-52) U/L Alkaline Phosphatase 331 H (38-126) U/L Total Protein 4.5 L (6.3-8.2) g/dL Albumin 2.8 L (3.5-5.0) g/dL Crossmatch 04/23/18 04/23/18 04/23/18 Range/Units 05:36 07:43 08:16 WBC 33.2 H (3.8-10.6) k/uL RBC 1.84 L (3.80-5.40) m/uL Hgb 5.5 L* D (11.4-16.0) gm/dL Hct 16.6 L* (34.0-46.0) % RDW 18.2 H (11.5-15.5) % Plt Count 88 L (150-450) k/uL ABG Total CO2 25 H (19-24) mmol/L ABG O2 Saturation 97.8 H (94-97) % Sodium (137-145) mmol/L Carbon Dioxide (22-30) mmol/L BUN (7-17) mg/dL Creatinine (0.52-1.04) mg/dL Glucose (74-99) mg/dL POC Glucose (mg/dL) 218 H (75-99) mg/dL Calcium (8.4-10.2) mg/dL Phosphorus (2.5-4.5) mg/dL Total Bilirubin (0.2-1.3) mg/dL AST (14-36) U/L ALT (9-52) U/L Alkaline Phosphatase (38-126) U/L Total Protein (6.3-8.2) g/dL Albumin (3.5-5.0) g/dL Crossmatch Microbiology - Last 24 Hours (Table) 04/21/18 00:29 Gram Stain - Final Sputum Sputum Culture - Final Pseudomonas aeruginosa Carmel albicans Assessment and Plan Plan: 1. Sepsis with septic shock secondary to urinary tract infection with lactic acidosis. Intensive care unit management. PICC line ordered for IV access. Consults with Dr. Robin and Dr. Colon appreciated. Patient completed course of daptomycin. IVF per Dr. Moran 2. Intermediate probability of pulmonary embolism ruled out. Pulmonary medicine is following 3. Acute respiratory failure on chronic respiratory failure with hypoxia. Continue albuterol nebulizer treatments every 6 hours, DuoNeb treatments every 4 hours as needed, Pulmicort twice daily, Solu-Medrol. Intubated and on mechanical ventilation management by Dr. Robin 4. Morbid obesity with BMI of 59. 5. Neurogenic bladder with incontinence. Urinary retention requiring Lopez catheter placement. 6. Diabetes mellitus type 2 insulin-dependent. Metformin on hold. NovoLog scale before meals and at bedtime. 7. Debility and deconditioning. 8. Dehydration. 9. Acute kidney injury and ATN likely secondary to dehydration with hyperkalemia. Consult with nephrology appreciated. [place] catheter has been placed by Dr. Winter. Patient on hemodialysis, 10. 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 11. Hyperkalemia 12. Metabolic encephalopathy secondary to sepsis, respiratory failure, liver failure. 13. Chronic pain. Methadone discontinued and patient was placed on Narcan drip. 14. Abdominal pain with worsening liver function tests mostly secondary to heart failure and congestion. 15. Severe protein calorie malnutrition. NG tube feedings. Dietitian is following. Albumin IV ordered. 16. Metabolic acidosis. Sodium bicarb oral and IV. 17. GERD and possible gastritis. Continue Pepcid and Protonix 18. Aspiration pneumonia. Continue Zosyn. Dr. Colon is following. 19. Multiorgan failure with respiratory, renal and liver failure. CODE STATUS: Full code Prognosis poor Discharge plan: Return to [facility] as long-term resident. Patient is known to have guardian. (Sister and father). Patient may be candidate for hospice in the near future. Impression and plan of care have been directed as dictated by the signing physician. Jeanne Roca nurse practitioner acting as scribe for signing physician.
[2018-04-23 12:04] LABS: Glucose,Whole Blood 204 mg/dL (75-99)
--- NOTE | 2018-04-23 12:05 | PN ---
PROGRESS NOTE DATE OF SERVICE: April 23, 2018. She is sedated on a vent at this time and is undergoing dialysis. She is hemodynamically unstable, requiring Levophed. She does not follow any commands. PHYSICAL EXAMINATION: Her blood pressure was 88/43, respiratory rate 28, pulse rate of 95, temperature 97.7, O2 saturation was 100% on FiO2 of 35. HEENT reveals icterus. ET tube in place. Chest reveals decreased breath sounds. No wheezes. Abdomen is soft. There is some spontaneous bleeding from the abdominal wall. There is a right groin dialysis catheter. There is a surgical dressing over the lower extremities with bolus changes that had been present. White count is 33.2, hemoglobin of 5.5, hematocrit of 16.6, platelet count of 88,000. ABG showed a pH of 7.4, pCO2 of 39, PO2 of 88, bicarb of 25. Sodium 136, potassium 4.1, chloride 104, bicarb 20, BUN 18, creatinine 1.35, calcium 6.9, phosphorus 1.7, total bilirubin is 8, AST 524, ALT 231, alkaline phosphatase 331. Albumin 2.8. Chest x-ray shows distal migration of the patient's ET tube with worsening left basilar infiltrate or atelectasis, possible effusion. IMPRESSION: At this time: 1. Acute on chronic respiratory failure in part due to obesity hypoventilation syndrome. 2. Possible aspiration-type pneumonia. 3. Autoimmune disease primarily in the form of sarcoidosis. However, the patient has ongoing anemia along with lesions of the lower extremities that are bolused and it is unclear whether these are tried into some kind of autoimmune processes. 4. Severe anemia, multifactorial. Possibility of hemolytic anemia will be entertained and we will have Hematology/Oncology further evaluate the patient. 5. Pancytopenia. 6. Acute renal failure with fluid overload for which the patient is undergoing dialysis with removal of fluid. 7. Hemodynamic instability in part due to severe anemia which she is being transfused 2 units of packed cells. 8. Metabolic encephalopathy for which she will continue supportive care. The patient's prognosis at this time is extremely guarded. She will likely require tracheostomy and possible PEG. She will require high-dose steroids. We will await further input from Rheumatology as well as Hematology. Continue ventilator support at this time. Her prognosis is extremely guarded. MMODL / IJN: [id number] /
[2018-04-23 12:08] LABS: Band Neutrophils % 21 %; Metamyelocytes % 9 %; Myelocytes % 11 %; Neutrophils % (M) 52 %; Nucleated Red Blood Cells 23 /100 WBC (0-0); Promyelocytes % 1 %; Total Cells Counted 200
[2018-04-23 12:09] LABS: Eosinophils # (M) 0.27 k/uL (0-0.7); Lymphocytes # (M) 1.62 k/uL (1.0-4.8); Metamyelocytes # (M) 2.43 k/uL (0); Monocytes # (M) 0.27 k/uL (0-1.0); Myelocytes # (M) 2.97 k/uL (0); Promyelocytes # (M) 0.27 k/uL (0)
[2018-04-23 12:10] LABS: Polychromasia Present; Spherocytes Present; Toxic Granulation Present; Toxic Vacuolation Present
[2018-04-23] MEDS: MIDAZOLAM HCL 100 MG in SODIUM CHLORIDE 0.9% 80 ML IV SCH (12:22)
[2018-04-23 14:38] LABS: Anisocytosis Slight; HCT 23.1 % (34.0-46.0); MCH 32.4 pg (25.0-35.0); MCHC 36.2 g/dL (31.0-37.0); MCV 89.4 fL (80.0-100.0); Mean Platelet Volume 10.5; Poikilocytosis Slight; RBC 2.59 m/uL (3.80-5.40); RDW 16.9 % (11.5-15.5)
[2018-04-23 14:50] LABS: HGB 8.4 gm/dL (11.4-16.0); Platelet Count 71 k/uL (150-450)
--- NOTE | 2018-04-23 15:13 | PN ---
PROGRESS NOTE The patient is seen for followup for acute kidney injury. She is currently seen on hemodialysis. She is having the SLED procedure, heart rate is about 90 per minute. Levophed is at 12 mcg, which is up from about 4 mcg prior to initiation of dialysis. Yesterday we had about 2.5 L of ultrafiltration. We are planning for about 3 L today. The patient remains on the vent. She is sedated, tolerating tube feedings. Hemoglobin was down to 5.5 g/dL again today. Patient is being transfused 2 units packed RBCs. PHYSICAL EXAMINATION: Blood pressure was this morning about 100/60, heart rate 92 per minute. Patient is afebrile. Examination of the heart: S1, S2. Examination of the lungs: Bilateral breath sounds are heard. Abdomen is soft, morbidly obese. Examination lower extremity shows edema 4+ bilaterally with weeping noted bilaterally upper and lower extremities. [employer] exam cannot be performed. LABS: Show hemoglobin 5.5, white cell count 27,000, platelet count 88,000. Sodium 136, potassium 4.1, chloride 104, BUN 18, serum creatinine 1.35. ASSESSMENT: 1. Acute kidney injury, acute tubular necrosis, currently oliguric and hemodialysis dependent receiving daily SLED procedure for about 6 hours with goal UF of about 2- 3 L on a daily basis. The patient seems to be tolerating the procedure fairly well. 2. Significant blisters noted bilateral lower extremities, which may be related to the severe hypervolemia or may be a part of an inflammatory response as patient does have underlying sarcoidosis. She is maintained on high-dose IV steroids. 3. Hypophosphatemia. We will continue to replace. Tube feeds have been changed to Vital Darrick and the Nepro was discontinued. 4. Hypokalemia, status post replacement. 5. Vent dependent respiratory failure. 6. Thrombocytopenia. We will continue to monitor for now. The patient does get small amount of heparin with her daily dialysis. PLAN: Continue with daily dialysis. Consult Rheumatology and repeat labs in a.m. MMODL / IJN: [id number] /
[2018-04-23 15:24] LABS: Band Neutrophils % 14 %; Metamyelocytes % 6 %; Monocytes # (M) 0.25 k/uL (0-1.0); Myelocytes % 4 %; Neutrophils % (M) 72 %; Nucleated Red Blood Cells 33 /100 WBC (0-0); Total Cells Counted 200
[2018-04-23 15:25] LABS: Large Platelets Present; Polychromasia Present; Spherocytes Present; Toxic Granulation Present; Toxic Vacuolation Present
[2018-04-23] MEDS: SODIUM GLYCEROPHOSPHATE IV SCH ×2 (16:30→21:06)
[2018-04-23] MEDS: SODIUM CHLORIDE 0.9% IV SCH ×2 (16:30→21:06)
[2018-04-23 17:26] LABS: Glucose,Whole Blood 223 mg/dL (75-99)
[2018-04-23] MEDS: MEROPENEM 1 GM in SODIUM CHLORIDE 0.9% 100 ML IVPB SCH (18:43)
--- NOTE | 2018-04-23 19:14 | P.PN ---
Subjective Progress Note Date: 04/22/18 (late entry note, critical care time spent 35 minutes) Principal diagnosis: Generalized anasarca, severe symptomatic hypotension, Acute renal failure, Severe sepsis and septic shock associated with urinary tract infection, pulmonary sarcoidosis, severe morbid obesity, obesity hypoventilation syndrome, sleep disorder breathing and sleep apnea, uncontrolled hyperglycemia and type 2 diabetes mellitus, acute renal failure, chronic pain syndrome, fluctuating hypo- and hypertension, acute on chronic anemia and anemia of chronic disease 04/22/18, cct 35 minutes, patient seen eval examined in ICU, patient remains sedated mildly with propofol drip dose has been decreased to 30 mics, attempts were done to stop the propofol patient developed severe degree of tachypnea and tachycardia requiring initiation of propofol, mental status overall remains unchanged, patient remains a similar ventilator setting, patient is currently on the assist control rate of 24 breathing 24, PEEP is 5, oxygen is 35%, tidal volume is 500 Ray a blood gas radiographic studies laboratory data reviewed patient relatively tolerated the hemodialysis fairly well able to remove 2 L of fluid, hemodynamic status otherwise remains marginal continue require levo fed drip of 2 mics labs reviewed medications reviewed radiographic studies reviewed as well, white cell count went up to 37,000 hemoglobin and hematocrit 8.523 platelet count is 98,000, arterial blood gases reviewed renal functions have improved BUN/creatinine is 60 and 1.48, patient remains on broad-spectrum antibiotics ID service is following 04/21/2018, patient seen eval examined during the rounds while undergoing hemodialysis, patient is being planned for the slow hemodialysis for 6 hours with intent to remove about 2 L, patient has been tolerating dialysis dialysis a relatively better today so far have been finished for 2 hours dialysis and 500 mL of fluid has been removed, he is on propofol drip about 35 mics and well sedated she is breathing with a respiratory currently she is set on assist control mode with a rate of 24, breathing 24 tidal volume is 505 of PEEP and oxygen is down to 35%, patient has been tolerating tube feed very well no significant high residuals were noted, patient remains on levo fed drip currently on for mics with a systolic blood pressure into high 80s and low 90s the levo fed drip is being adjusted accordingly, radiographic Studies laboratory data reviewed care plan discussed with the primary service as well as family present at bedside at length, sputum has been sent and results are pending, labs from today reviewed white cell count is elevated and remains stable hemoglobin 7.3H is slowly trickling down as last check was 7.9 platelet count is 102,000 borderline coagulopathy is present patient is being given vitamin K, x-ray reviewed arterial blood gases are stable the bicarb has improved to 28 now, severe hypokalemia is noted, patient is on replacement as per renal services, LFT noted to be improved compared to yesterday exam 04/20/2018, patient seen eval reexamined during the rounds clinically patient is a not much change from baseline due to severe tachypnea and poor tolerance with the hemodialysis as well as for airway protection patient was intubated electively later on last night, patient remains on full ventilator support, PA or more calm and comfortable, currently patient is on assist control rate of 24 breathing 28 with tidal volume of 505 of PEEP and 70% oxygen, patient is on levo fed drip for mics however systolic blood pressures 80s advised to increase it to 6-7 mics to keep her map around 65-70, there patient is also on propofol 30 mics appears to be tolerating well, we will lower down the FiO2 35%, whole DC the bicarb drip as well as the legs on drip as well, labs and radiographic studies as well as medications reviewed, patient remains on broad-spectrum antibiotics, will continue oral bicarbonate, care plan discussed with the renal service at length as well as primary service, patient will undergo repeat dialysis today, patient will likely require recurrent and daily hemodialysis, will continue other supportive care overall long-term prognosis is poor, depending upon the response of therapy will make further adjustment, critical care time spent 45 minutes 04/19/2018, patient seen eval examined during the rounds continue to have significant intermittent fluctuation in the blood pressure unable to complete the hemodialysis patient remains lethargic and poorly responsive, hyperventilating due to significant metabolic acidosis due to renal failure as well as from the levo fed drip, her chest x-ray performed today revealed left basilar atelectasis, labs reviewed white cell count is up to 21,000 with a hemoglobin drop down to 5.9 platelet count is 1 27,000 Ray a blood gas revealed pH is 7.26 pCO2 26 pO2 169 base deficit is 15, BUN/creatinine is 16 and 2.39, and liver enzyme continue to go up suggestive of possibly shock liver , recent abdominal computed tomography scan has been unremarkable except some changes at spine ID service is following, there is no obvious source of bleeding has been noted, patient did have a bowel movement earlier today which was normal in appearance, anemia appears to be anemia of chronic disease, overall prognosis is very guarded 04/18/2018, patient seen and evaluated examined during the rounds she is a status post hemodialysis unable to remove over 2 L only 1.8 L of fluid has been removed with hemodialysis patient has significant degree of hemodynamic fluctuation with the levo fed drip went all the way up to 20 mics however now able to bring it down to 7 mics, patient had episode of emesis of BiPAP mask has been removed patient is now nasal cannula patient has been on tube feed well and Reglan 10 mg IV every 6, due to labile blood pressure patient will require a arterial line, labs and medications reviewed from today August chest x- ray overall is stable with stable right-sided PICC line cardiomegaly is been noted some interstitial edema has been noted, stable NG tube, arterial blood gas performed today reviewed the pH is fairly balanced 7.42 pCO2 37 pO2 139 the severity or acidosis has improved Ammann D and creatinine as down to 20/2.84, hemoglobin is 7.4 white cell count is 14,800 Ammann noted to marker alpha- fetoprotein is elevated as well 11.2 04/17/2018, patient seen eval examined during the rounds clinically patient has been doing slightly better in terms of breathing oxygenation stable but continued to require BiPAP support, currently patient is on IPAP of 14 EPAP of 5 with 35% oxygen, the blood pressure did drop down with map into the low 50s levo fed drip is being started, patient is currently undergoing hemodialysis with intent to remove about 2 L of fluid, has had incomplete just 2 hour hemodialysis yesterday, patient is arousable opens eyes does try to follow simple commands slightly more awake now, once dialysis is completed then patient remains stable will reassess and do a swallowing evaluation prior to Dobbhoff or NG tube placement, laboratory data radiographic studies reviewed medications reviewed, white cell count 11,000, hemoglobin is 7.2, BUN/ creatinine slightly improved 27 /3.58, patient remains on broad-spectrum antibiotics high-dose IV steroids methadone is on hold 04/16/2018, patient seen eval examined during the rounds she is currently on 5 mics of the levo fed, the old using and bleeding from the dialysis catheter site has improved and resolved now he shouldn't has been planned for dialysis by renal services, hemodynamics status overall stable, remains on BiPAP with IPAP 14 EPAP of 5 with 35% oxygen, labs from today reviewed no chest x-rays performed today we'll plan for tomorrow including labs, and I'll of is being planned by GI services 04/15/2018, patient seen eval examined during rounds, patient remain somnolent but arousable, remains on BiPAP currently on IPAP of 14 and EPAP of 5 with 35% oxygen, labs reviewed white cell count is trickling down is 11,000, hemoglobin remained stable 8.8, creatinine continued to go up is 4.19 now, as per discussion with the renal service proceed with hemodialysis vascular surgery has been consulted, and they have placed and dialysis catheter but patient is hypertensive also some bruising and blood-tinged discharge from the catheter site is present advised to hold on dialysis tonight 04/14/2018 Patient has been more lethargic throughout the day, has been on BiPAP 14/6 with 35% oxygen patient is gently being rehydrated patient does have diffuse anasarca however chest x-ray continue to be normal with normal heart size no effusion is seen him a subtle basal atelectasis cannot be excluded, and labs from today reviewed white cell count remains stable hemoglobin is unchanged platelet count stable as well, renal functions remains poor BUN/ creatinine continued to get worse 23 and 3.99 urine output is very minimal, patient has not received her methadone today, recommend to DC methadone, it appears that patient may need dialysis/ultrafiltration for generalized anasarca and worsening renal failure 04/13/2018, patient seen eval reexamined during the rounds care plan discussed the renal service patient's chest x-ray unremarkable oxygen is stable, patient remains on BiPAP as needed along with oxygen patient has not been using the BiPAP machine very regularly have discussed with the family as well as patient importance to using the BiPAP regularly, I have also advised to stop or discontinue methadone as it may be interfering with the mental status for now dose has been cut down to half, labs reviewed medications reviewed 04/12/2018, patient seen eval examined during the rounds clinically patient is doing better in terms of hemodynamics but remains intermittently tachycardic which is not much change from baseline blood pressure has been stable, patient did not use her BiPAP machine last night, has been more somnolent she is lethargic but readily arousable, she does answer in simple words, moving all 4 extremities, she was noted to have snoring as well as apneic events, family is present at bedside and have discussed with them at length about importance of using the BiPAP machine each night and when necessary during the day will put the BiPAP again with a setting of 14/5 with 35% oxygen, potassium is up slightly urine culture is positive for Enterococcus faecium/VRE, patient is on daptomycin and Zosyn, IV fluids are 100 mL an hour, BUN/creatinine slightly up and baseline 04/11/2018, patient seen eval examined in ICU patient the continue to have issues associated aches and pain she remains a poor historian however does describe generalized pain throughout the body, patient has been nauseous as well a computed tomography scan of the abdominal and pelvis is being ordered, her lactic acid has improved with the fluid resuscitation, patient has been on broad-spectrum antibiotics I urine culture is positive for enterococcus Ammann labs from today reviewed sodium is 1:30 and production of 5.3 her BUN/ creatinine is 15 and 2.99, overall sodium remains stable hyperkalemia is present renal functions continued to be marginal liters lactic acid check was 1.9, chest x-ray remains stable PICC line site is stable borderline cardiomegaly , patient is getting broad-spectrum antibiotics with Vanco mycin, daptomycin and Zosyn patient is a getting therapy for the lower extremity cellulitis as well along with local care 47-year-old morbidly obese female who was seen evaluated examined in the ICU this patient has been a resident of [facility], patient has problems associated with chronic renal insufficiency, sarcoidosis severely morbidly obese was found to have blood pressure only 60s systolic at the [facility] was notified it appears that blood pressure has been extremely fluctuating it was noted to be 90 by EMS however subsequently was in 150 patient was tachypneic and tachycardic as well no chest pain was present overall patient is a poor historian, patient was eventually admitted into the hospital from the emergency department Robert patient underwent a VQ scan with indeterminate findings, CT angiogram be performed due to elevated creatinine Amsonam patient has been using BiPAP off and on with a IPAP of 14 and EPAP of 5 and 35% oxygen, patient has been comfortable now she has a low urine output she is getting a fluid challenge of 500 mL crystalloid due to elevated lactic acid followed by 100 mL an hour patient is also on Solu-Cortef which is being switched to Solu-Medrol, currently patient is on bronchodilators and continuation of home medications, heparin for DVT prophylaxis, due to chronic hypertension patient is on midodrine along with broad-spectrum antibiotics along with Zosyn and vancomycin, urine is positive for group D enterococcus, other significant labs were noted to have a lactic acid of 5.8 came down to 3.2 , BUN/creatinine remains stable 40 and 2.93 much chest x-ray revealed cardiomegaly small left-sided pleural effusion with subsegmental atelectasis, patient was transferred to ICU for hypotension and low urine output and elevated lactic acid where she was seen evaluated examined Objective - Vital Signs Vital signs: Vital Signs Temp 98.2 F 04/23/18 12:28 Pulse 94 04/23/18 18:58 Resp 27 H 04/23/18 18:58 BP 125/80 04/23/18 12:28 Pulse Ox 100 04/23/18 14:00 Intake & Output 04/23/18 04/23/18 04/24/18 06:59 18:59 06:59 Intake Total 1660.934 Output Total 2 Balance 1658.934 Weight Intake: IV 560 Sodium Chloride 0.9% 1, 500 000 ml @ 50 mls/hr IV . Q20H L[facility] Rx#:[id number] pressure bag 60 Intake, IV Titration 276.934 Amount Norepinephrine 16 mg In Sodium Chloride 0.9% 250 ml @ Titrate IV .Q0M LESLIE Rx#:[id number] Propofol 1,000 mg In 276.934 Empty Bag 1 bag @ Titrate IV .Q0M LESLIE Rx#: [id number] Tube Feeding 204 Blood Product 620 Rc Pheresis As-3 Unit 310 [id number] Rc Pheresis As-3 Unit 310 [id number] Output: Urine 0 Stool 2 Other: Voiding Method Indwelling Catheter # Voids ABP, PAP, CO, CI - Last Documented Arterial Blood Pressure 131/82 - Exam Gen: This is a morbidly obese 47-year-old Afro Citizen Of [place] female. Sedated with propofol drip on full ventilator support appear more calm and comfortable HEENT: Head is atraumatic, normocephalic. Pupils equal, round. Sclerae is anicteric. Hearing grossly normal. NECK: Supple. No JVD. No lymphadenopathy. No thyromegaly. LUNGS: Diminished bilaterally. Clear to auscultation. No wheezes or rhonchi. No intercostal retractions. Has been on BiPAP support continuously HEART: Regular rate and rhythm. No murmur. ABDOMEN: Morbidly obese. Soft. Bowel sounds are present. No masses. No tenderness. EXTREMITIES: 2+ pedal edema. Chronic skin inflammatory changes early cellulitis cannot be excluded No calf tenderness. No redness. NEUROLOGICAL: Sedated with low-dose propofol - Labs CBC & Chem 7: 04/23/18 14:20 04/23/18 05:30 Labs: Abnormal Lab Results - Last 24 Hours (Table) 04/20/18 04/22/18 04/22/18 Range/Units 20:06 20:29 23:20 WBC (3.8-10.6) k/uL RBC (3.80-5.40) m/uL Hgb (11.4-16.0) gm/dL Hct (34.0-46.0) % RDW (11.5-15.5) % Plt Count (150-450) k/uL Neutrophils # (Manual) (1.3-7.7) k/uL Metamyelocytes # (Man) (0) k/uL Myelocytes # (Manual) (0) k/uL Promyelocytes # (Man) (0) k/uL Nucleated RBCs (0-0) /100 WBC APTT (22.0-30.0) sec ABG Total CO2 (19-24) mmol/L ABG O2 Saturation (94-97) % Sodium (137-145) mmol/L Carbon Dioxide (22-30) mmol/L BUN (7-17) mg/dL Creatinine (0.52-1.04) mg/dL Glucose (74-99) mg/dL POC Glucose (mg/dL) 204 H 238 H (75-99) mg/dL Calcium (8.4-10.2) mg/dL Phosphorus (2.5-4.5) mg/dL Total Bilirubin (0.2-1.3) mg/dL AST (14-36) U/L ALT (9-52) U/L Alkaline Phosphatase (38-126) U/L Lactate Dehydrogenase (313-618) U/L Total Protein (6.3-8.2) g/dL Albumin (3.5-5.0) g/dL Crossmatch See Detail 04/23/18 04/23/18 04/23/18 Range/Units 04:22 05:30 05:36 WBC (3.8-10.6) k/uL RBC (3.80-5.40) m/uL Hgb (11.4-16.0) gm/dL Hct (34.0-46.0) % RDW (11.5-15.5) % Plt Count (150-450) k/uL Neutrophils # (Manual) (1.3-7.7) k/uL Metamyelocytes # (Man) (0) k/uL Myelocytes # (Manual) (0) k/uL Promyelocytes # (Man) (0) k/uL Nucleated RBCs (0-0) /100 WBC APTT (22.0-30.0) sec ABG Total CO2 25 H (19-24) mmol/L ABG O2 Saturation 97.8 H (94-97) % Sodium 136 L (137-145) mmol/L Carbon Dioxide 20 L (22-30) mmol/L BUN 18 H (7-17) mg/dL Creatinine 1.35 H (0.52-1.04) mg/dL Glucose 263 H (74-99) mg/dL POC Glucose (mg/dL) 259 H (75-99) mg/dL Calcium 6.9 L (8.4-10.2) mg/dL Phosphorus 1.7 L (2.5-4.5) mg/dL Total Bilirubin 8.0 H (0.2-1.3) mg/dL AST 524 H (14-36) U/L ALT 231 H (9-52) U/L Alkaline Phosphatase 331 H (38-126) U/L Lactate Dehydrogenase (313-618) U/L Total Protein 4.5 L (6.3-8.2) g/dL Albumin 2.8 L (3.5-5.0) g/dL Crossmatch 04/23/18 04/23/18 04/23/18 Range/Units 07:43 08:16 11:52 WBC 27.0 H (3.8-10.6) k/uL RBC 1.84 L (3.80-5.40) m/uL Hgb 5.5 L* D (11.4-16.0) gm/dL Hct 16.6 L* (34.0-46.0) % RDW 18.2 H (11.5-15.5) % Plt Count 88 L (150-450) k/uL Neutrophils # (Manual) 19.70 H (1.3-7.7) k/uL Metamyelocytes # (Man) 2.43 H (0) k/uL Myelocytes # (Manual) 2.97 H (0) k/uL Promyelocytes # (Man) 0.27 H (0) k/uL Nucleated RBCs 23 H (0-0) /100 WBC APTT (22.0-30.0) sec ABG Total CO2 (19-24) mmol/L ABG O2 Saturation (94-97) % Sodium (137-145) mmol/L Carbon Dioxide (22-30) mmol/L BUN (7-17) mg/dL Creatinine (0.52-1.04) mg/dL Glucose (74-99) mg/dL POC Glucose (mg/dL) 218 H 204 H (75-99) mg/dL Calcium (8.4-10.2) mg/dL Phosphorus (2.5-4.5) mg/dL Total Bilirubin (0.2-1.3) mg/dL AST (14-36) U/L ALT (9-52) U/L Alkaline Phosphatase (38-126) U/L Lactate Dehydrogenase (313-618) U/L Total Protein (6.3-8.2) g/dL Albumin (3.5-5.0) g/dL Crossmatch 04/23/18 04/23/18 04/23/18 Range/Units 14:20 14:20 14:20 WBC 25.0 H (3.8-10.6) k/uL RBC 2.59 L (3.80-5.40) m/uL Hgb 8.4 L D (11.4-16.0) gm/dL Hct 23.1 L (34.0-46.0) % RDW 16.9 H (11.5-15.5) % Plt Count 71 L (150-450) k/uL Neutrophils # (Manual) 21.50 H (1.3-7.7) k/uL Metamyelocytes # (Man) 1.50 H (0) k/uL Myelocytes # (Manual) 1.00 H (0) k/uL Promyelocytes # (Man) (0) k/uL Nucleated RBCs 33 H (0-0) /100 WBC APTT 39.6 H (22.0-30.0) sec ABG Total CO2 (19-24) mmol/L ABG O2 Saturation (94-97) % Sodium (137-145) mmol/L Carbon Dioxide (22-30) mmol/L BUN (7-17) mg/dL Creatinine (0.52-1.04) mg/dL Glucose (74-99) mg/dL POC Glucose (mg/dL) (75-99) mg/dL Calcium (8.4-10.2) mg/dL Phosphorus (2.5-4.5) mg/dL Total Bilirubin (0.2-1.3) mg/dL AST (14-36) U/L ALT (9-52) U/L Alkaline Phosphatase (38-126) U/L Lactate Dehydrogenase 6098 H (313-618) U/L Total Protein (6.3-8.2) g/dL Albumin (3.5-5.0) g/dL Crossmatch 04/23/18 Range/Units 17:15 WBC (3.8-10.6) k/uL RBC (3.80-5.40) m/uL Hgb (11.4-16.0) gm/dL Hct (34.0-46.0) % RDW (11.5-15.5) % Plt Count (150-450) k/uL Neutrophils # (Manual) (1.3-7.7) k/uL Metamyelocytes # (Man) (0) k/uL Myelocytes # (Manual) (0) k/uL Promyelocytes # (Man) (0) k/uL Nucleated RBCs (0-0) /100 WBC APTT (22.0-30.0) sec ABG Total CO2 (19-24) mmol/L ABG O2 Saturation (94-97) % Sodium (137-145) mmol/L Carbon Dioxide (22-30) mmol/L BUN (7-17) mg/dL Creatinine (0.52-1.04) mg/dL Glucose (74-99) mg/dL POC Glucose (mg/dL) 223 H (75-99) mg/dL Calcium (8.4-10.2) mg/dL Phosphorus (2.5-4.5) mg/dL Total Bilirubin (0.2-1.3) mg/dL AST (14-36) U/L ALT (9-52) U/L Alkaline Phosphatase (38-126) U/L Lactate Dehydrogenase (313-618) U/L Total Protein (6.3-8.2) g/dL Albumin (3.5-5.0) g/dL Crossmatch Microbiology - Last 24 Hours (Table) 04/21/18 00:29 Gram Stain - Final Sputum Sputum Culture - Final Pseudomonas aeruginosa Carmel albicans Assessment and Plan Assessment: Labile blood pressure with alternating hypertension followed by hypotension related to severe sepsis and septic shock Acute on chronic renal failure on hemodialysis Progressive worsening renal function and generalized anasarca proceed with hemodialysis as per renal services For ongoing hypotension will maintain patient on levo fed drip a.m. for map about 65-70 so adequate dialysis can be performed, patient is undergoing slow hemodialysis Acute hypoxic and hypercapnic respiratory failure Bilateral basal pneumonia Elevated liver enzyme multifactorial associated with the possibly hypotension Anemia of chronic disease Severe sepsis and septic shock related to enterococcus urinary tract infection with some complaint component from cellulitis of the both lower extremity Bilateral lower extremity cellulitis Elevated lactic acid/metabolic acidosis multifactorial associated with acute on chronic renal failure, urinary tract infection have improved though her and normalized Pulmonary sarcoidosis with possible left lower lobe pneumonia Somnolence and lethargy due to multifactorial processes including methadone currently on hold Small left-sided pleural effusion Dehydration associated with intravascular volume depletion patient is undergoing intermittent crystalloid challenge Severe morbid obesity and obstructive sleep apnea Plan: Continue tube feed Ventilator adjustment Reglan IV labs and x-ray tomorrow and adjustment of antibiotics as per ID services Arterial line or better blood pressure monitoring Dialysis as per renal service Dobbhoff tube feed as tolerated Continue broad-spectrum antibiotics DVT and peptic ulcer disease prophylaxis IV steroids, we'll start tapering them down Reviewed labs and radiographic studies ordered for tomorrow, further recommendations pending plan of care as per clinical response of the patient Patient has multiple organ failure with severe sepsis septic shock and hypertension patient has difficult time and tolerating the dialysis, overall long-term prognosis is poor, as per discussion with the family currently patient is a high risk for transfer out of the facility due to being and required ongoing long dialysis on vasopressors and related to her size Further recommendations pending plan of care as per clinical response of patient crackle care time spent 35 minutes overall long-term prognosis is very poor once recovered from significant metabolic disturbance than would likely require trach and PEG for long-term weaning, critical care time 35 minutes
--- NOTE | 2018-04-23 19:20 | P.PN ---
Subjective Progress Note Date: 04/23/18 (Critical care time spent 45 minutes) Principal diagnosis: Generalized anasarca, severe symptomatic hypotension, Acute renal failure, Severe sepsis and septic shock associated with urinary tract infection, pulmonary sarcoidosis, severe morbid obesity, obesity hypoventilation syndrome, sleep disorder breathing and sleep apnea, uncontrolled hyperglycemia and type 2 diabetes mellitus, acute renal failure, chronic pain syndrome, fluctuating hypo- and hypertension, acute on chronic anemia and anemia of chronic disease, anemia associated with thrombocytopenia and elevated LDH suspect hemolysis a possible DIC cannot be excluded agree with obtaining consultation with hematology 04/22/18, cct 35 minutes, patient seen eval examined in ICU, patient remains sedated mildly with propofol drip dose has been decreased to 30 mics, attempts were done to stop the propofol patient developed severe degree of tachypnea and tachycardia requiring initiation of propofol, mental status overall remains unchanged, patient remains a similar ventilator setting, patient is currently on the assist control rate of 24 breathing 24, PEEP is 5, oxygen is 35%, tidal volume is 500 Ray a blood gas radiographic studies laboratory data reviewed patient relatively tolerated the hemodialysis fairly well able to remove 2 L of fluid, hemodynamic status otherwise remains marginal continue require levo fed drip of 2 mics labs reviewed medications reviewed radiographic studies reviewed as well, white cell count went up to 37,000 hemoglobin and hematocrit 8.523 platelet count is 98,000, arterial blood gases reviewed renal functions have improved BUN/creatinine is 60 and 1.48, patient remains on broad-spectrum antibiotics ID service is following 04/21/2018, patient seen eval examined during the rounds while undergoing hemodialysis, patient is being planned for the slow hemodialysis for 6 hours with intent to remove about 2 L, patient has been tolerating dialysis dialysis a relatively better today so far have been finished for 2 hours dialysis and 500 mL of fluid has been removed, he is on propofol drip about 35 mics and well sedated she is breathing with a respiratory currently she is set on assist control mode with a rate of 24, breathing 24 tidal volume is 505 of PEEP and oxygen is down to 35%, patient has been tolerating tube feed very well no significant high residuals were noted, patient remains on levo fed drip currently on for mics with a systolic blood pressure into high 80s and low 90s the levo fed drip is being adjusted accordingly, radiographic Studies laboratory data reviewed care plan discussed with the primary service as well as family present at bedside at length, sputum has been sent and results are pending, labs from today reviewed white cell count is elevated and remains stable hemoglobin 7.3H is slowly trickling down as last check was 7.9 platelet count is 102,000 borderline coagulopathy is present patient is being given vitamin K, x-ray reviewed arterial blood gases are stable the bicarb has improved to 28 now, severe hypokalemia is noted, patient is on replacement as per renal services, LFT noted to be improved compared to yesterday exam 04/20/2018, patient seen eval reexamined during the rounds clinically patient is a not much change from baseline due to severe tachypnea and poor tolerance with the hemodialysis as well as for airway protection patient was intubated electively later on last night, patient remains on full ventilator support, PA or more calm and comfortable, currently patient is on assist control rate of 24 breathing 28 with tidal volume of 505 of PEEP and 70% oxygen, patient is on levo fed drip for mics however systolic blood pressures 80s advised to increase it to 6-7 mics to keep her map around 65-70, there patient is also on propofol 30 mics appears to be tolerating well, we will lower down the FiO2 35%, whole DC the bicarb drip as well as the legs on drip as well, labs and radiographic studies as well as medications reviewed, patient remains on broad-spectrum antibiotics, will continue oral bicarbonate, care plan discussed with the renal service at length as well as primary service, patient will undergo repeat dialysis today, patient will likely require recurrent and daily hemodialysis, will continue other supportive care overall long-term prognosis is poor, depending upon the response of therapy will make further adjustment, critical care time spent 45 minutes 04/19/2018, patient seen eval examined during the rounds continue to have significant intermittent fluctuation in the blood pressure unable to complete the hemodialysis patient remains lethargic and poorly responsive, hyperventilating due to significant metabolic acidosis due to renal failure as well as from the levo fed drip, her chest x-ray performed today revealed left basilar atelectasis, labs reviewed white cell count is up to 21,000 with a hemoglobin drop down to 5.9 platelet count is 1 27,000 Ray a blood gas revealed pH is 7.26 pCO2 26 pO2 169 base deficit is 15, BUN/creatinine is 16 and 2.39, and liver enzyme continue to go up suggestive of possibly shock liver , recent abdominal computed tomography scan has been unremarkable except some changes at [facility] spine ID service is following, there is no obvious source of bleeding has been noted, patient did have a bowel movement earlier today which was normal in appearance, anemia appears to be anemia of chronic disease, overall prognosis is very guarded 04/18/2018, patient seen and evaluated examined during the rounds she is a status post hemodialysis unable to remove over 2 L only 1.8 L of fluid has been removed with hemodialysis patient has significant degree of hemodynamic fluctuation with the levo fed drip went all the way up to 20 mics however now able to bring it down to 7 mics, patient had episode of emesis of BiPAP mask has been removed patient is now nasal cannula patient has been on tube feed well and Reglan 10 mg IV every 6, due to labile blood pressure patient will require a arterial line, labs and medications reviewed from today August chest x- ray overall is stable with stable right-sided PICC line cardiomegaly is been noted some interstitial edema has been noted, stable NG tube, arterial blood gas performed today reviewed the pH is fairly balanced 7.42 pCO2 37 pO2 139 the severity or acidosis has improved Ammann D and creatinine as down to 20/2.84, hemoglobin is 7.4 white cell count is 14,800 Ammann noted to marker alpha- fetoprotein is elevated as well 11.2 04/17/2018, patient seen eval examined during the rounds clinically patient has been doing slightly better in terms of breathing oxygenation stable but continued to require BiPAP support, currently patient is on IPAP of 14 EPAP of 5 with 35% oxygen, the blood pressure did drop down with map into the low 50s levo fed drip is being started, patient is currently undergoing hemodialysis with intent to remove about 2 L of fluid, has had incomplete just 2 hour hemodialysis yesterday, patient is arousable opens eyes does try to follow simple commands slightly more awake now, once dialysis is completed then patient remains stable will reassess and do a swallowing evaluation prior to Dobbhoff or NG tube placement, laboratory data radiographic studies reviewed medications reviewed, white cell count 11,000, hemoglobin is 7.2, BUN/ creatinine slightly improved 27 /3.58, patient remains on broad-spectrum antibiotics high-dose IV steroids methadone is on hold, given rise in WBC, finding of pseudomonas on sputum culture along with changes in x-ray suggestive of developing ventilator associated pneumonia with gram-negative rods and Pseudomonas, we will add cephapirin may need further adjustment of antibiotics will discuss with infectious disease services 04/16/2018, patient seen mike examined during the rounds she is currently on 5 mics of the levo fed, the old using and bleeding from the dialysis catheter site has improved and resolved now he shouldn't has been planned for dialysis by renal services, hemodynamics status overall stable, remains on BiPAP with IPAP 14 EPAP of 5 with 35% oxygen, labs from today reviewed no chest x-rays performed today we'll plan for tomorrow including labs, and I'll of is being planned by GI services 04/15/2018, patient seen mike examined during rounds, patient remain somnolent but arousable, remains on BiPAP currently on IPAP of 14 and EPAP of 5 with 35% oxygen, labs reviewed white cell count is trickling down is 11,000, hemoglobin remained stable 8.8, creatinine continued to go up is 4.19 now, as per discussion with the renal service proceed with hemodialysis vascular surgery has been consulted, and they have placed and dialysis catheter but patient is hypertensive also some bruising and blood-tinged discharge from the catheter site is present advised to hold on dialysis tonight 04/14/2018 Patient has been more lethargic throughout the day, has been on BiPAP 14/6 with 35% oxygen patient is gently being rehydrated patient does have diffuse anasarca however chest x-ray continue to be normal with normal heart size no effusion is seen him a subtle basal atelectasis cannot be excluded, and labs from today reviewed white cell count remains stable hemoglobin is unchanged platelet count stable as well, renal functions remains poor BUN/ creatinine continued to get worse 23 and 3.99 urine output is very minimal, patient has not received her methadone today, recommend to DC methadone, it appears that patient may need dialysis/ultrafiltration for generalized anasarca and worsening renal failure 04/13/2018, patient seen mike reexamined during the rounds care plan discussed the renal service patient's chest x-ray unremarkable oxygen is stable, patient remains on BiPAP as needed along with oxygen patient has not been using the BiPAP machine very regularly have discussed with the family as well as patient importance to using the BiPAP regularly, I have also advised to stop or discontinue methadone as it may be interfering with the mental status for now dose has been cut down to half, labs reviewed medications reviewed 04/12/2018, patient seen eval examined during the rounds clinically patient is doing better in terms of hemodynamics but remains intermittently tachycardic which is not much change from baseline blood pressure has been stable, patient did not use her BiPAP machine last night, has been more somnolent she is lethargic but readily arousable, she does answer in simple words, moving all 4 extremities, she was noted to have snoring as well as apneic events, family is present at bedside and have discussed with them at length about importance of using the BiPAP machine each night and when necessary during the day will put the BiPAP again with a setting of 14/5 with 35% oxygen, potassium is up slightly urine culture is positive for Enterococcus faecium/VRE, patient is on daptomycin and Zosyn, IV fluids are 100 mL an hour, BUN/creatinine slightly up and baseline 04/11/2018, patient seen eval examined in ICU patient the continue to have issues associated aches and pain she remains a poor historian however does describe generalized pain throughout the body, patient has been nauseous as well a computed tomography scan of the abdominal and pelvis is being ordered, her lactic acid has improved with the fluid resuscitation, patient has been on broad-spectrum antibiotics I urine culture is positive for enterococcus Ammann labs from today reviewed sodium is 1:30 and production of 5.3 her BUN/ creatinine is 15 and 2.99, overall sodium remains stable hyperkalemia is present renal functions continued to be marginal liters lactic acid check was 1.9, chest x-ray remains stable PICC line site is stable borderline cardiomegaly , patient is getting broad-spectrum antibiotics with Vanco mycin, daptomycin and Zosyn patient is a getting therapy for the lower extremity cellulitis as well along with local care 47-year-old morbidly obese female who was seen evaluated examined in the ICU this patient has been a resident of [facility], patient has problems associated with chronic renal insufficiency, sarcoidosis severely morbidly obese was found to have blood pressure only 60s systolic at the [facility] EMS was notified it appears that blood pressure has been extremely fluctuating it was noted to be 90 by EMS however subsequently was in 150 patient was tachypneic and tachycardic as well no chest pain was present overall patient is a poor historian, patient was eventually admitted into the hospital from the emergency department [place] patient underwent a VQ scan with indeterminate findings, CT angiogram be performed due to elevated creatinine [place] patient has been using BiPAP off and on with a IPAP of 14 and EPAP of 5 and 35% oxygen, patient has been comfortable now she has a low urine output she is getting a fluid challenge of 500 mL crystalloid due to elevated lactic acid followed by 100 mL an hour patient is also on Solu-Cortef which is being switched to Solu-Medrol, currently patient is on bronchodilators and continuation of home medications, heparin for DVT prophylaxis, due to chronic hypertension patient is on midodrine along with broad-spectrum antibiotics along with Zosyn and vancomycin, urine is positive for group D enterococcus, other significant labs were noted to have a lactic acid of 5.8 came down to 3.2 , BUN/creatinine remains stable 40 and 2.93 much chest x-ray revealed cardiomegaly small left-sided pleural effusion with subsegmental atelectasis, patient was transferred to ICU for hypotension and low urine output and elevated lactic acid where she was seen evaluated examined Objective - Vital Signs Vital signs: Vital Signs Temp 98.2 F 04/23/18 16:00 Pulse 92 04/23/18 19:12 Resp 25 H 04/23/18 19:12 BP 125/80 04/23/18 12:28 Pulse Ox 100 04/23/18 19:00 Intake & Output 04/23/18 04/23/18 04/24/18 06:59 18:59 06:59 Intake Total 1711.934 Output Total 2 Balance 1709.934 Weight Intake: IV 560 Sodium Chloride 0.9% 1, 500 000 ml @ 50 mls/hr IV . Q20H [facility] Rx#:[id number] pressure bag 60 Intake, IV Titration 276.934 Amount Norepinephrine 16 mg In Sodium Chloride 0.9% 250 ml @ Titrate IV .Q0M [facility] Rx#:[id number] Propofol 1,000 mg In 276.934 Empty Bag 1 bag @ Titrate IV .Q0M [facility] Rx#: [id number] Tube Feeding 255 Blood Product 620 Rc Pheresis As-3 Unit 310 [id number] Rc Pheresis As-3 Unit 310 [id number] Output: Urine 0 Stool 2 Other: Voiding Method Indwelling Catheter # Voids ABP, PAP, CO, CI - Last Documented Arterial Blood Pressure 126/69 - Exam Gen: This is a morbidly obese 47-year-old Afro [place] female. Sedated with propofol drip on full ventilator support appear more calm and comfortable HEENT: Head is atraumatic, normocephalic. Pupils equal, round. Sclerae is anicteric. Hearing grossly normal. NECK: Supple. No JVD. No lymphadenopathy. No thyromegaly. LUNGS: Diminished bilaterally. Clear to auscultation. No wheezes or rhonchi. No intercostal retractions. Has been on BiPAP support continuously HEART: Regular rate and rhythm. No murmur. ABDOMEN: Morbidly obese. Soft. Bowel sounds are present. No masses. No tenderness. EXTREMITIES: 2+ pedal edema. Chronic skin inflammatory changes early cellulitis cannot be excluded No calf tenderness. No redness. NEUROLOGICAL: Sedated with low-dose propofol - Labs CBC & Chem 7: 04/23/18 14:20 04/23/18 05:30 Labs: Abnormal Lab Results - Last 24 Hours (Table) 04/20/18 04/22/18 04/22/18 Range/Units 20:06 20:29 23:20 WBC (3.8-10.6) k/uL RBC (3.80-5.40) m/uL Hgb (11.4-16.0) gm/dL Hct (34.0-46.0) % RDW (11.5-15.5) % Plt Count (150-450) k/uL Neutrophils # (Manual) (1.3-7.7) k/uL Metamyelocytes # (Man) (0) k/uL Myelocytes # (Manual) (0) k/uL Promyelocytes # (Man) (0) k/uL Nucleated RBCs (0-0) /100 WBC APTT (22.0-30.0) sec ABG Total CO2 (19-24) mmol/L ABG O2 Saturation (94-97) % Sodium (137-145) mmol/L Carbon Dioxide (22-30) mmol/L BUN (7-17) mg/dL Creatinine (0.52-1.04) mg/dL Glucose (74-99) mg/dL POC Glucose (mg/dL) 204 H 238 H (75-99) mg/dL Calcium (8.4-10.2) mg/dL Phosphorus (2.5-4.5) mg/dL Total Bilirubin (0.2-1.3) mg/dL AST (14-36) U/L ALT (9-52) U/L Alkaline Phosphatase (38-126) U/L Lactate Dehydrogenase (313-618) U/L Total Protein (6.3-8.2) g/dL Albumin (3.5-5.0) g/dL Crossmatch See Detail 04/23/18 04/23/18 04/23/18 Range/Units 04:22 05:30 05:36 WBC (3.8-10.6) k/uL RBC (3.80-5.40) m/uL Hgb (11.4-16.0) gm/dL Hct (34.0-46.0) % RDW (11.5-15.5) % Plt Count (150-450) k/uL Neutrophils # (Manual) (1.3-7.7) k/uL Metamyelocytes # (Man) (0) k/uL Myelocytes # (Manual) (0) k/uL Promyelocytes # (Man) (0) k/uL Nucleated RBCs (0-0) /100 WBC APTT (22.0-30.0) sec ABG Total CO2 25 H (19-24) mmol/L ABG O2 Saturation 97.8 H (94-97) % Sodium 136 L (137-145) mmol/L Carbon Dioxide 20 L (22-30) mmol/L BUN 18 H (7-17) mg/dL Creatinine 1.35 H (0.52-1.04) mg/dL Glucose 263 H (74-99) mg/dL POC Glucose (mg/dL) 259 H (75-99) mg/dL Calcium 6.9 L (8.4-10.2) mg/dL Phosphorus 1.7 L (2.5-4.5) mg/dL Total Bilirubin 8.0 H (0.2-1.3) mg/dL AST 524 H (14-36) U/L ALT 231 H (9-52) U/L Alkaline Phosphatase 331 H (38-126) U/L Lactate Dehydrogenase (313-618) U/L Total Protein 4.5 L (6.3-8.2) g/dL Albumin 2.8 L (3.5-5.0) g/dL Crossmatch 04/23/18 04/23/18 04/23/18 Range/Units 07:43 08:16 11:52 WBC 27.0 H (3.8-10.6) k/uL RBC 1.84 L (3.80-5.40) m/uL Hgb 5.5 L* D (11.4-16.0) gm/dL Hct 16.6 L* (34.0-46.0) % RDW 18.2 H (11.5-15.5) % Plt Count 88 L (150-450) k/uL Neutrophils # (Manual) 19.70 H (1.3-7.7) k/uL Metamyelocytes # (Man) 2.43 H (0) k/uL Myelocytes # (Manual) 2.97 H (0) k/uL Promyelocytes # (Man) 0.27 H (0) k/uL Nucleated RBCs 23 H (0-0) /100 WBC APTT (22.0-30.0) sec ABG Total CO2 (19-24) mmol/L ABG O2 Saturation (94-97) % Sodium (137-145) mmol/L Carbon Dioxide (22-30) mmol/L BUN (7-17) mg/dL Creatinine (0.52-1.04) mg/dL Glucose (74-99) mg/dL POC Glucose (mg/dL) 218 H 204 H (75-99) mg/dL Calcium (8.4-10.2) mg/dL Phosphorus (2.5-4.5) mg/dL Total Bilirubin (0.2-1.3) mg/dL AST (14-36) U/L ALT (9-52) U/L Alkaline Phosphatase (38-126) U/L Lactate Dehydrogenase (313-618) U/L Total Protein (6.3-8.2) g/dL Albumin (3.5-5.0) g/dL Crossmatch 04/23/18 04/23/18 04/23/18 Range/Units 14:20 14:20 14:20 WBC 25.0 H (3.8-10.6) k/uL RBC 2.59 L (3.80-5.40) m/uL Hgb 8.4 L D (11.4-16.0) gm/dL Hct 23.1 L (34.0-46.0) % RDW 16.9 H (11.5-15.5) % Plt Count 71 L (150-450) k/uL Neutrophils # (Manual) 21.50 H (1.3-7.7) k/uL Metamyelocytes # (Man) 1.50 H (0) k/uL Myelocytes # (Manual) 1.00 H (0) k/uL Promyelocytes # (Man) (0) k/uL Nucleated RBCs 33 H (0-0) /100 WBC APTT 39.6 H (22.0-30.0) sec ABG Total CO2 (19-24) mmol/L ABG O2 Saturation (94-97) % Sodium (137-145) mmol/L Carbon Dioxide (22-30) mmol/L BUN (7-17) mg/dL Creatinine (0.52-1.04) mg/dL Glucose (74-99) mg/dL POC Glucose (mg/dL) (75-99) mg/dL Calcium (8.4-10.2) mg/dL Phosphorus (2.5-4.5) mg/dL Total Bilirubin (0.2-1.3) mg/dL AST (14-36) U/L ALT (9-52) U/L Alkaline Phosphatase (38-126) U/L Lactate Dehydrogenase 6098 H (313-618) U/L Total Protein (6.3-8.2) g/dL Albumin (3.5-5.0) g/dL Crossmatch 04/23/18 Range/Units 17:15 WBC (3.8-10.6) k/uL RBC (3.80-5.40) m/uL Hgb (11.4-16.0) gm/dL Hct (34.0-46.0) % RDW (11.5-15.5) % Plt Count (150-450) k/uL Neutrophils # (Manual) (1.3-7.7) k/uL Metamyelocytes # (Man) (0) k/uL Myelocytes # (Manual) (0) k/uL Promyelocytes # (Man) (0) k/uL Nucleated RBCs (0-0) /100 WBC APTT (22.0-30.0) sec ABG Total CO2 (19-24) mmol/L ABG O2 Saturation (94-97) % Sodium (137-145) mmol/L Carbon Dioxide (22-30) mmol/L BUN (7-17) mg/dL Creatinine (0.52-1.04) mg/dL Glucose (74-99) mg/dL POC Glucose (mg/dL) 223 H (75-99) mg/dL Calcium (8.4-10.2) mg/dL Phosphorus (2.5-4.5) mg/dL Total Bilirubin (0.2-1.3) mg/dL AST (14-36) U/L ALT (9-52) U/L Alkaline Phosphatase (38-126) U/L Lactate Dehydrogenase (313-618) U/L Total Protein (6.3-8.2) g/dL Albumin (3.5-5.0) g/dL Crossmatch Microbiology - Last 24 Hours (Table) 04/21/18 00:29 Gram Stain - Final Sputum Sputum Culture - Final Pseudomonas aeruginosa Carmel albicans Assessment and Plan Assessment: Health care/ventilator associated pneumonia Severe anemia Labile blood pressure with alternating hypertension followed by hypotension related to severe sepsis and septic shock Acute on chronic renal failure on hemodialysis Progressive worsening renal function and generalized anasarca proceed with hemodialysis as per renal services For ongoing hypotension will maintain patient on levo fed drip a.m. for map about 65-70 so adequate dialysis can be performed, patient is undergoing slow hemodialysis Acute hypoxic and hypercapnic respiratory failure Bilateral basal pneumonia Elevated liver enzyme multifactorial associated with the possibly hypotension Anemia of chronic disease Severe sepsis and septic shock related to enterococcus urinary tract infection with some complaint component from cellulitis of the both lower extremity Bilateral lower extremity cellulitis Elevated lactic acid/metabolic acidosis multifactorial associated with acute on chronic renal failure, urinary tract infection have improved though her and normalized Pulmonary sarcoidosis with possible left lower lobe pneumonia Somnolence and lethargy due to multifactorial processes including methadone currently on hold Small left-sided pleural effusion Dehydration associated with intravascular volume depletion patient is undergoing intermittent crystalloid challenge Severe morbid obesity and obstructive sleep apnea Plan: Transfuse 2 unit of packed RBC Add cefapime, continue Zosyn Use Versed instead of propofol due to elevated triglyceride level Continue tube feed Ventilator adjustment Reglan IV labs and x-ray tomorrow and adjustment of antibiotics as per ID services Arterial line or better blood pressure monitoring Dialysis as per renal service Dobbhoff tube feed as tolerated Continue broad-spectrum antibiotics DVT and peptic ulcer disease prophylaxis IV steroids, we'll start tapering them down Reviewed labs and radiographic studies ordered for tomorrow, further recommendations pending plan of care as per clinical response of the patient Patient has multiple organ failure with severe sepsis septic shock and hypertension patient has difficult time and tolerating the dialysis, overall long-term prognosis is poor, as per discussion with the family currently patient is a high risk for transfer out of the facility due to being and required ongoing long dialysis on vasopressors and related to her size Further recommendations pending plan of care as per clinical response of patient crackle care time spent 35 minutes overall long-term prognosis is very poor once recovered from significant metabolic disturbance than would likely require trach and PEG for long-term weaning, critical care time 35 minutes
[2018-04-23 20:56] LABS: Glucose,Whole Blood 162 mg/dL (75-99)
[2018-04-24] MEDS: INSULIN ASPART 100 UNIT/ML 1 ML 10 ML VIAL SQ SCH ×7 (00:53→23:53)
[2018-04-24] MEDS: methylPREDNISolone SOD SUCCI 125 MG/2 ML VIAL IV SCH ×4 (00:53→23:55)
[2018-04-24 00:56] LABS: Glucose,Whole Blood 163 mg/dL (75-99)
[2018-04-24] MEDS: SODIUM CHLORIDE 0.9% 1,000 ML IV SCH ×2 (04:35→20:33)
[2018-04-24 04:42] LABS: Glucose,Whole Blood 241 mg/dL (75-99)
[2018-04-24 04:59] LABS: ABG Base Excess 0.5 mmol/L; ABG HCO3 25 mmol/L (21-25); ABG Oxygen Saturation 95.6 % (94-97); ABG PCO2 40 mmHg (35-45); ABG PH 7.41 (7.35-7.45); ABG PO2 70 mmHg (83-108); ABG TCO2 26 mmol/L (19-24)
[2018-04-24 05:41] LABS: INR 1.1 (<1.2); Prothrombin Time 10.8 sec (9.0-12.0)
[2018-04-24 05:44] LABS: Albumin 2.4 g/dL (3.5-5.0); Calcium 6.6 mg/dL (8.4-10.2); Phosphorus 3.1 mg/dL (2.5-4.5); Potassium 4.3 mmol/L (3.5-5.1); Total Bilirubin 8.5 mg/dL (0.2-1.3); Total Protein 4.1 g/dL (6.3-8.2)
[2018-04-24 05:51] LABS: Anisocytosis Slight; MCHC 34.3 g/dL (31.0-37.0); MCV 87.4 fL (80.0-100.0); Mean Platelet Volume 11.7; Platelet Count 70 k/uL (150-450); Poikilocytosis Slight; RBC 2.11 m/uL (3.80-5.40); RDW 16.9 % (11.5-15.5); WBC 30.1 k/uL (3.8-10.6)
[2018-04-24 05:57] LABS: HCT 18.4 % (34.0-46.0); HGB 6.3 gm/dL (11.4-16.0)
[2018-04-24] MEDS: BUDESONIDE 0.5 MG/2 ML NEBU INHALATION SCH ×2 (07:32→19:45)
[2018-04-24] MEDS: ALBUTEROL NEBULIZED 2.5 MG/3 ML INHALATION SCH ×3 (07:32→19:45)
[2018-04-24 07:59] LABS: Glucose,Whole Blood 219 mg/dL (75-99)
[2018-04-24] MEDS: CHLORHEXIDINE GLUCONATE 15 ML CUP MUCOUS MEM SCH ×2 (08:17→20:29)
[2018-04-24] MEDS: MEROPENEM 1 GM in SODIUM CHLORIDE 0.9% 100 ML IVPB SCH ×2 (08:17→20:29)
[2018-04-24] MEDS: MIDODRINE 5 MG TAB PO SCH ×3 (08:18→18:09)
[2018-04-24] MEDS: SODIUM BICARBONATE TAB 650 MG TAB PO SCH ×2 (08:18→20:29)
[2018-04-24] MEDS: INSULIN DETEMIR 100 UNIT/ML 10 ML VIAL SQ SCH (08:18)
[2018-04-24] MEDS: PANTOPRAZOLE 40 MG/10 ML VIAL IVP SCH (08:18)
[2018-04-24] MEDS: NYSTATIN 100,000 UNIT/GM POWD 15 GM TOPICAL SCH ×2 (08:19→20:31)
[2018-04-24] MEDS: PETROLATUM, WHITE OINT 50 GM TUBE TOPICAL SCH ×2 (08:19→20:33)
[2018-04-24] MEDS: ZINC OXIDE 20% OINT 28.4 GM TUBE TOPICAL SCH ×4 (08:19→20:33)
[2018-04-24] MEDS: MIDAZOLAM HCL 100 MG in SODIUM CHLORIDE 0.9% 80 ML IV SCH (08:22)
[2018-04-24] MEDS ORDERED: DARBEPOETIN ALFA 60 MCG/0.3 ML SYRINGE SQ SCH (09:45)
--- NOTE | 2018-04-24 10:15 | P.PN ---
Subjective Progress Note Date: 04/24/18 Interval history: 04/18/18:Patient is being seen examined and evaluated today on rounds. She continues to be in the ICU. She continues on the BiPAP and is tolerating that well. Currently she is undergoing dialysis and potentially having 2 L of fluid to be pulled off. She has been on and off of vasopressors in the last 24 hours. Currently the patient was put back on Levophed. She currently is on tube feeds and is tolerating that well. She continues on IV steroids. She is afebrile, no further complaints. Her labs from this morning are reviewed. Her AST has increased to 663, a LT increased to 212, her bilirubin increased to 4.9 , BUN is 20, creatinine is 2.84, hemoglobin is stable at 7.4, daily after meals 14.8. Her care team follows her closely in collaboration including internal medicine, nephrology, pulmonary, infectious disease, intensivists, GI physician , cardiology, vascular surgery, and recently added pain management. 04/19/18: Patient is being seen examined and evaluated on rounds while in the intensive care unit today. PE patient was put on a Narcan drip yesterday. According to the nurses staff was slightly more awake after that was initiated. She continues on Levophed at 5 mics. The patient will be starting a bicarb drip and will be getting 2 units of packed red blood cells. Her labs this morning did reveal a hemoglobin of 5.9 and yesterday was 7.4. She also had ABGs from this morning and it revealed a pH of 7.26, pCO2 26, pO2 169 and HCO3 of 12. Dialysis was attempted this morning however the patient became extremely hypotensive and the fluid had to be given back to her. Currently she is in a positive fluid balance. She has had minimal scant urine output. She has been tolerating her tube feedings. She continues on BiPAP, is tachypnea. She did under go an arterial line placement yesterday. Chest x-ray from this morning is currently pending. LFT continue to climb, AST increased to 829 a ALT 262, alkaline phosphatase 420, albumin is 2.3 receiving albumin infusions. 04/20/18- patient is being seen examined and evaluated today while on rounds in the intensive care unit. The patient was obtunded and went into respiratory distress yesterday and was subsequently intubated. She also did receive a central line placement yesterday. Currently she is on mechanical ventilation with propofol for sedation. Current ventilator settings are assist-control mode with a respiratory rate of 24, tidal volume of 500, FiO2 70% and a PEEP of 5. Blood gases from this morning did reveal a pH of 7.44, pCO2 32, pO2 284, HCO3 22. She continues on Levophed drip at 4 mics, propofol is at 30 mics. She also is on the bicarb drip. Liver function tests did reveal this morning AST increased to 840, ALT increased to 289, alkaline phosphorus 395 and a bilirubin increased to 6.6. Her BUN is 20, creatinine is 2.34. She was unable to undergo dialysis yesterday. Plan is to receive dialysis today. Her hemoglobin yesterday was 5.9. Today it is increased to 7.9 she did have 2 units of packed red blood cells yesterday. Her chest x-ray from this morning is revealed continues to show bilateral consolidation with small effusions. She did undergo a CT of the abdomen and pelvis yesterday which did show fatty infiltration of the liver, nonobstructing right renal calculi, extensive subcutaneous edema bilaterally that is increased compared to last exam no evidence of retroperitoneal hemorrhages. Her urine output continues to be minimal. Per the nursing notes there is a family meeting planned for 2017 at 11 AM to discuss patient's prognosis and goals of care. 04/21/18, 04/22/18, 04/23/18- please see Dr KASIE Earl notes 04/24/18- patient is being seen examined and evaluated today while on rounds in the intensive care unit. She continues on mechanical ventilation with Versed for sedation. Current ventilator settings are assist-control mode with respiratory rate of 24, tidal volume of 500, FiO2 of 45% and a PEEP of 5. She continues to have scant minimal output. Continues on dialysis per nephrology. Her hemoglobin today is 6.3, WBCs 30.1, BUN 22 creatinine is 1.16, AST 580, ALT 253, alkaline phosphatase 310. Sputum is growing Pseudomonas and Carmel. She continues on IV steroids. His requiring small amounts of Levophed to maintain adequate blood pressures. ABGs from this morning is pH of 7.41, pCO2 40, pO2 70 , HCO3 25. Case discussed discussed with internal medicine Dr. Ballard, who is entertaining the idea of the possible trach and peg. He is also requesting a family meeting to be tomorrow morning as well. Patient's overall status and condition is discussed with bedside nurse directly. All labs and reports have been reviewed. Of note she will be receiving 2 more transfusions of packed red blood cells which while total 9 transfusions of RBCs Objective - Vital Signs Vital signs: Vital Signs Temp 97.5 F L 04/24/18 09:52 Pulse 93 04/24/18 09:52 Resp 24 04/24/18 09:52 BP 93/55 04/24/18 09:52 Pulse Ox 98 04/24/18 09:52 Intake & Output 04/23/18 04/24/18 04/24/18 18:59 06:59 18:59 Intake Total 2794.467 1108.244 564.467 Output Total 3012 16 3 Balance -455.276 7833.244 561.467 Weight 169.8 kg Intake: IV 672 672 224 Sodium Chloride 0.9% 1, 600 600 200 000 ml @ 50 mls/hr IV . Q20H [facility] Rx#:[id number] pressure bag 72 72 24 Intake, IV Titration 291.467 130.244 85.467 Amount Midazolam HCl 100 mg In 14.533 85.467 Sodium Chloride 0.9% 80 ml @ 0.02 MG/KG/HR 3.46 mls/hr IV .Q24H [facility] Rx#: [id number] Norepinephrine 16 mg In 130.244 Sodium Chloride 0.9% 250 ml @ Titrate IV .Q0M [facility] Rx#:[id number] Propofol 1,000 mg In 276.934 Empty Bag 1 bag @ Titrate IV .Q0M [facility] Rx#: [id number] Tube Feeding 561 306 255 Blood Product 1240 0 Rc As-1 Unit 0 [id number] Rc Pheresis As-3 Unit 310 [id number] Rc Pheresis As-3 Unit 310 [id number] Other 30 Output: Urine 10 14 2 Stool 2 2 1 Other 3000 Other: Voiding Method Indwelling Catheter Indwelling Catheter Indwelling Catheter ABP, PAP, CO, CI - Last Documented Arterial Blood Pressure 100/56 - Exam GENERAL EXAM: On mechanical ventilation with versed for sedation HEAD: Normocephalic. EYES: Normal reaction of pupils, equal size. Conjunctivae jaundice NOSE: Clear with pink turbinates. THROAT: No erythema or exudates. NECK: No masses, no JVD. Short, thick CHEST: No chest wall deformity. LUNGS: Decreased breath sounds throughout, on mechanical ventilation CVS: S1 and S2 normal with no audible mumurs, regular rhythm. ABDOMEN: No hepatosplenomegaly, normal bowel sounds, no guarding or rigidity. EXTREMITIES: +2 bilateral lower extremity edema noted, pedal pulses palpable. Bilateral Gurwinder wraps, bolus wounds bilateral lower extremities CENTRAL NERVOUS SYSTEM: On mechanical ventilation with Versed for sedation. - Labs CBC & Chem 7: 04/24/18 04:20 04/24/18 04:20 Labs: Abnormal Lab Results - Last 24 Hours (Table) 04/20/18 04/23/18 04/23/18 Range/Units 20:06 07:43 11:52 WBC 27.0 H (3.8-10.6) k/uL RBC (3.80-5.40) m/uL Hgb (11.4-16.0) gm/dL Hct (34.0-46.0) % RDW (11.5-15.5) % Plt Count (150-450) k/uL Neutrophils # (Manual) 19.70 H (1.3-7.7) k/uL Metamyelocytes # (Man) 2.43 H (0) k/uL Myelocytes # (Manual) 2.97 H (0) k/uL Promyelocytes # (Man) 0.27 H (0) k/uL Nucleated RBCs 23 H (0-0) /100 WBC APTT (22.0-30.0) sec ABG pO2 (83-108) mmHg ABG Total CO2 (19-24) mmol/L BUN (7-17) mg/dL Creatinine (0.52-1.04) mg/dL Glucose (74-99) mg/dL POC Glucose (mg/dL) 204 H (75-99) mg/dL Calcium (8.4-10.2) mg/dL Total Bilirubin (0.2-1.3) mg/dL AST (14-36) U/L ALT (9-52) U/L Alkaline Phosphatase (38-126) U/L Lactate Dehydrogenase (313-618) U/L Total Protein (6.3-8.2) g/dL Albumin (3.5-5.0) g/dL Crossmatch See Detail 04/23/18 04/23/18 04/23/18 Range/Units 14:20 14:20 14:20 WBC 25.0 H (3.8-10.6) k/uL RBC 2.59 L (3.80-5.40) m/uL Hgb 8.4 L D (11.4-16.0) gm/dL Hct 23.1 L (34.0-46.0) % RDW 16.9 H (11.5-15.5) % Plt Count 71 L (150-450) k/uL Neutrophils # (Manual) 21.50 H (1.3-7.7) k/uL Metamyelocytes # (Man) 1.50 H (0) k/uL Myelocytes # (Manual) 1.00 H (0) k/uL Promyelocytes # (Man) (0) k/uL Nucleated RBCs 33 H (0-0) /100 WBC APTT 39.6 H (22.0-30.0) sec ABG pO2 (83-108) mmHg ABG Total CO2 (19-24) mmol/L BUN (7-17) mg/dL Creatinine (0.52-1.04) mg/dL Glucose (74-99) mg/dL POC Glucose (mg/dL) (75-99) mg/dL Calcium (8.4-10.2) mg/dL Total Bilirubin (0.2-1.3) mg/dL AST (14-36) U/L ALT (9-52) U/L Alkaline Phosphatase (38-126) U/L Lactate Dehydrogenase 6098 H (313-618) U/L Total Protein (6.3-8.2) g/dL Albumin (3.5-5.0) g/dL Crossmatch 04/23/18 04/23/18 04/24/18 Range/Units 17:15 20:44 00:43 WBC (3.8-10.6) k/uL RBC (3.80-5.40) m/uL Hgb (11.4-16.0) gm/dL Hct (34.0-46.0) % RDW (11.5-15.5) % Plt Count (150-450) k/uL Neutrophils # (Manual) (1.3-7.7) k/uL Metamyelocytes # (Man) (0) k/uL Myelocytes # (Manual) (0) k/uL Promyelocytes # (Man) (0) k/uL Nucleated RBCs (0-0) /100 WBC APTT (22.0-30.0) sec ABG pO2 (83-108) mmHg ABG Total CO2 (19-24) mmol/L BUN (7-17) mg/dL Creatinine (0.52-1.04) mg/dL Glucose (74-99) mg/dL POC Glucose (mg/dL) 223 H 162 H 163 H (75-99) mg/dL Calcium (8.4-10.2) mg/dL Total Bilirubin (0.2-1.3) mg/dL AST (14-36) U/L ALT (9-52) U/L Alkaline Phosphatase (38-126) U/L Lactate Dehydrogenase (313-618) U/L Total Protein (6.3-8.2) g/dL Albumin (3.5-5.0) g/dL Crossmatch 04/24/18 04/24/18 04/24/18 Range/Units 04:20 04:20 04:28 WBC 30.1 H (3.8-10.6) k/uL RBC 2.11 L (3.80-5.40) m/uL Hgb 6.3 L* D (11.4-16.0) gm/dL Hct 18.4 L* (34.0-46.0) % RDW 16.9 H (11.5-15.5) % Plt Count 70 L (150-450) k/uL Neutrophils # (Manual) (1.3-7.7) k/uL Metamyelocytes # (Man) (0) k/uL Myelocytes # (Manual) (0) k/uL Promyelocytes # (Man) (0) k/uL Nucleated RBCs (0-0) /100 WBC APTT (22.0-30.0) sec ABG pO2 (83-108) mmHg ABG Total CO2 (19-24) mmol/L BUN 22 H (7-17) mg/dL Creatinine 1.16 H (0.52-1.04) mg/dL Glucose 207 H (74-99) mg/dL POC Glucose (mg/dL) 241 H (75-99) mg/dL Calcium 6.6 L (8.4-10.2) mg/dL Total Bilirubin 8.5 H (0.2-1.3) mg/dL AST 580 H (14-36) U/L ALT 253 H (9-52) U/L Alkaline Phosphatase 310 H (38-126) U/L Lactate Dehydrogenase (313-618) U/L Total Protein 4.1 L (6.3-8.2) g/dL Albumin 2.4 L (3.5-5.0) g/dL Crossmatch 04/24/18 04/24/18 04/24/18 Range/Units 04:55 06:45 07:48 WBC (3.8-10.6) k/uL RBC (3.80-5.40) m/uL Hgb (11.4-16.0) gm/dL Hct (34.0-46.0) % RDW (11.5-15.5) % Plt Count (150-450) k/uL Neutrophils # (Manual) (1.3-7.7) k/uL Metamyelocytes # (Man) (0) k/uL Myelocytes # (Manual) (0) k/uL Promyelocytes # (Man) (0) k/uL Nucleated RBCs (0-0) /100 WBC APTT (22.0-30.0) sec ABG pO2 70 L (83-108) mmHg ABG Total CO2 26 H (19-24) mmol/L BUN (7-17) mg/dL Creatinine (0.52-1.04) mg/dL Glucose (74-99) mg/dL POC Glucose (mg/dL) 219 H (75-99) mg/dL Calcium (8.4-10.2) mg/dL Total Bilirubin (0.2-1.3) mg/dL AST (14-36) U/L ALT (9-52) U/L Alkaline Phosphatase (38-126) U/L Lactate Dehydrogenase (313-618) U/L Total Protein (6.3-8.2) g/dL Albumin (3.5-5.0) g/dL Crossmatch See Detail Microbiology - Last 24 Hours (Table) 04/21/18 00:29 Gram Stain - Final Sputum Sputum Culture - Final Pseudomonas aeruginosa Carmel albicans Assessment and Plan Assessment: Assessment Acute on chronic hypoxic respiratory failure Hypoventilation syndrome Possible central versus obstructive sleep apnea Sarcoidosis Chronic severe persistent asthma Acute on chronic renal failure on hemodialysis Morbid obesity Elevated liver enzymes Severe sepsis with septic shock related to UTI and a component of bilateral lower extremity cellulitis Possible shock liver Severe anemia of chronic disease and liver failure Pancytopenia Hemodynamically instability Metabolic encephalopathy Autoimmune disease primarily in the form of sarcoidosis Plan Continue on mechanical ventilation with Versed for sedation Medications have been reviewed and will be continued as ordered. IV steroid taper and antibiotics Vasopressors for hypotension wean as tolerated s/p total of 9 units of packed red blood cells this admission IV fluids as ordered Continue with pulmonary hygiene, coughing and deep breathing exercises, and supportive care. Supplemental oxygen to maintain oxygen saturations of 92% or better. Continue nebulizer treatments. Hemodialysis per nephrology GI and DVT prophylaxis. Collaborative care with internal medicine, nephrology, pulmonary, infectious disease, neonatal pediatric nurse, GI services, cardiology, vascular surgery and pain management, appreciate input and recommendations We will continue to monitor labs/results and adjust treatment as necessary. Further recommendations pending. Hypnosis highly guarded I, the signing physician performed an examination of the patient, discussed and directed their management with the nurse practitioner. I have reviewed the nurse practitioner's note and agree with the documented findings, orders and plan of care.
--- NOTE | 2018-04-24 10:27 | XR ---
EXAMINATION TYPE: XR chest 1V portable DATE OF EXAM: 04/24/2018 COMPARISON: Prior chest x-ray 04/23/2018 HISTORY: Intubated TECHNIQUE: Single frontal view of the chest is obtained. FINDINGS: Endotracheal tube and NG tube, left jugular central venous catheter, right-sided PICC line are overlying appropriate positions. Patient is rotated. Heart size is likely stable. Basilar increased density persists, the left hemidiaphragm is obscured. No evident pneumothorax. IMPRESSION: Findings are similar to prior exam. Correlate for left lower lobe pneumonia versus edema or atelectasis, there may be associated effusion
[2018-04-24 11:18] VITALS: BMI 55.3
[2018-04-24 11:56] LABS: Glucose,Whole Blood 174 mg/dL (75-99)
--- NOTE | 2018-04-24 12:45 | P.PN ---
Subjective Progress Note Date: 04/24/18 (Critical care time spent 35 minutes) Principal diagnosis: Ventilator associated pneumonia pseudomonas isolated, Generalized anasarca, severe symptomatic hypotension, Acute renal failure, Severe sepsis and septic shock associated with urinary tract infection, pulmonary sarcoidosis, severe morbid obesity, obesity hypoventilation syndrome, sleep disorder breathing and sleep apnea, uncontrolled hyperglycemia and type 2 diabetes mellitus, acute renal failure, chronic pain syndrome, fluctuating hypo-and hypertension, acute on chronic anemia and anemia of chronic disease, anemia associated with thrombocytopenia and elevated LDH suspect hemolysis a possible DIC cannot be excluded agree with obtaining consultation with hematology 04/24/2018, patient seen eval examined during the rounds in ICU, critical care time spent 35 minutes, patient remains a intubated on full ventilator support currently patient is on assist control rate of 24 breathing about 25-96, tidal volume is 500, PEEP of 5, FiO2 is up to 50% due to borderline hypoxia, we hemodialysis currently during evaluation plan is to remove 2 L, patient remains on levo fed drip of 3 mics blood pressure is 110/60-70 slightly tachycardic with heart rate of the 90 to 100, labs reviewed medications reviewed radiographic studies reviewed as well, hemoglobin again dropped down to 6.1 last state another 2 unit of packed RBC transfer hematology is following, patient overall remains very unstable given constant need of hemodialysis and blood product utilization 1 some stable ED achieved in next several days consider doing a trach and PEG if remains stable sometime next week, patient possibly need additional antibiotics for ventilator associated pneumonia with differential related to infectious disease services 04/23/2018, critical care time spent 45 minutes, patient remains hemodynamically unstable require vasopressors for stability of blood pressure, dialysis was performed earlier over 2 L of fluid has been removed some fluctuation blood pressure was noted but overall tolerated well, went ventilator setting remains stable, patient is tolerating tube feed well, the sputum studies came back positive for pseudomonas given the presence of radiographic changes rise in WBC count suspect developing ventilator associated pneumonia labs reviewed medications reviewed patient did drop down hemoglobin significantly no source of bleeding is present point stool worse possible presence of hemolysis patient is being transferred to unit of packed RBC with dialysis hematology consultation is pending 04/22/18, cct 35 minutes, patient seen eval examined in ICU, patient remains sedated mildly with propofol drip dose has been decreased to 30 mics, attempts were done to stop the propofol patient developed severe degree of tachypnea and tachycardia requiring initiation of propofol, mental status overall remains unchanged, patient remains a similar ventilator setting, patient is currently on the assist control rate of 24 breathing 24, PEEP is 5, oxygen is 35%, tidal volume is 500 Ray a blood gas radiographic studies laboratory data reviewed patient relatively tolerated the hemodialysis fairly well able to remove 2 L of fluid, hemodynamic status otherwise remains marginal continue require levo fed drip of 2 mics labs reviewed medications reviewed radiographic studies reviewed as well, white cell count went up to 37,000 hemoglobin and hematocrit 8.523 platelet count is 98,000, arterial blood gases reviewed renal functions have improved BUN/creatinine is 60 and 1.48, patient remains on broad-spectrum antibiotics ID service is following 04/21/2018, patient seen eval examined during the rounds while undergoing hemodialysis, patient is being planned for the slow hemodialysis for 6 hours with intent to remove about 2 L, patient has been tolerating dialysis dialysis a relatively better today so far have been finished for 2 hours dialysis and 500 mL of fluid has been removed, he is on propofol drip about 35 mics and well sedated she is breathing with a respiratory currently she is set on assist control mode with a rate of 24, breathing 24 tidal volume is 505 of PEEP and oxygen is down to 35%, patient has been tolerating tube feed very well no significant high residuals were noted, patient remains on levo fed drip currently on for mics with a systolic blood pressure into high 80s and low 90s the levo fed drip is being adjusted accordingly, radiographic Studies laboratory data reviewed care plan discussed with the primary service as well as family present at bedside at length, sputum has been sent and results are pending, labs from today reviewed white cell count is elevated and remains stable hemoglobin 7.3H is slowly trickling down as last check was 7.9 platelet count is 102,000 borderline coagulopathy is present patient is being given vitamin K, x-ray reviewed arterial blood gases are stable the bicarb has improved to 28 now, severe hypokalemia is noted, patient is on replacement as per renal services, LFT noted to be improved compared to yesterday exam 04/20/2018, patient seen eval reexamined during the rounds clinically patient is a not much change from baseline due to severe tachypnea and poor tolerance with the hemodialysis as well as for airway protection patient was intubated electively later on last night, patient remains on full ventilator support, PA or more calm and comfortable, currently patient is on assist control rate of 24 breathing 28 with tidal volume of 505 of PEEP and 70% oxygen, patient is on levo fed drip for mics however systolic blood pressures 80s advised to increase it to 6-7 mics to keep her map around 65-70, there patient is also on propofol 30 mics appears to be tolerating well, we will lower down the FiO2 35%, whole DC the bicarb drip as well as the legs on drip as well, labs and radiographic studies as well as medications reviewed, patient remains on broad-spectrum antibiotics, will continue oral bicarbonate, care plan discussed with the renal service at length as well as primary service, patient will undergo repeat dialysis today, patient will likely require recurrent and daily hemodialysis, will continue other supportive care overall long-term prognosis is poor, depending upon the response of therapy will make further adjustment, critical care time spent 45 minutes 04/19/2018, patient seen eval examined during the rounds continue to have significant intermittent fluctuation in the blood pressure unable to complete the hemodialysis patient remains lethargic and poorly responsive, hyperventilating due to significant metabolic acidosis due to renal failure as well as from the levo fed drip, her chest x-ray performed today revealed left basilar atelectasis, labs reviewed white cell count is up to 21,000 with a hemoglobin drop down to 5.9 platelet count is 1 27,000 Ray a blood gas revealed pH is 7.26 pCO2 26 pO2 169 base deficit is 15, BUN/creatinine is 16 and 2.39, and liver enzyme continue to go up suggestive of possibly shock liver , recent abdominal computed tomography scan has been unremarkable except some changes at [facility] spine ID service is following, there is no obvious source of bleeding has been noted, patient did have a bowel movement earlier today which was normal in appearance, anemia appears to be anemia of chronic disease, overall prognosis is very guarded 04/18/2018, patient seen and evaluated examined during the rounds she is a status post hemodialysis unable to remove over 2 L only 1.8 L of fluid has been removed with hemodialysis patient has significant degree of hemodynamic fluctuation with the levo fed drip went all the way up to 20 mics however now able to bring it down to 7 mics, patient had episode of emesis of BiPAP mask has been removed patient is now nasal cannula patient has been on tube feed well and Reglan 10 mg IV every 6, due to labile blood pressure patient will require a arterial line, labs and medications reviewed from today August chest x- ray overall is stable with stable right-sided PICC line cardiomegaly is been noted some interstitial edema has been noted, stable NG tube, arterial blood gas performed today reviewed the pH is fairly balanced 7.42 pCO2 37 pO2 139 the severity or acidosis has improved Ammann D and creatinine as down to 20/2.84, hemoglobin is 7.4 white cell count is 14,800 Ammann noted to marker alpha- fetoprotein is elevated as well 11.2 04/17/2018, patient seen eval examined during the rounds clinically patient has been doing slightly better in terms of breathing oxygenation stable but continued to require BiPAP support, currently patient is on IPAP of 14 EPAP of 5 with 35% oxygen, the blood pressure did drop down with map into the low 50s levo fed drip is being started, patient is currently undergoing hemodialysis with intent to remove about 2 L of fluid, has had incomplete just 2 hour hemodialysis yesterday, patient is arousable opens eyes does try to follow simple commands slightly more awake now, once dialysis is completed then patient remains stable will reassess and do a swallowing evaluation prior to Dobbhoff or NG tube placement, laboratory data radiographic studies reviewed medications reviewed, white cell count 11,000, hemoglobin is 7.2, BUN/ creatinine slightly improved /3.58, patient remains on broad-spectrum antibiotics high-dose IV steroids methadone is on hold, given rise in WBC, finding of pseudomonas on sputum culture along with changes in x-ray suggestive of developing ventilator associated pneumonia with gram-negative rods and Pseudomonas, we will add cephapirin may need further adjustment of antibiotics will discuss with infectious disease services 04/16/2018, patient seen eval examined during the rounds she is currently on 5 mics of the levo fed, the old using and bleeding from the dialysis catheter site has improved and resolved now he shouldn't has been planned for dialysis by renal services, hemodynamics status overall stable, remains on BiPAP with IPAP 14 EPAP of 5 with 35% oxygen, labs from today reviewed no chest x-rays performed today we'll plan for tomorrow including labs, and I'll of is being planned by GI services 04/15/2018, patient seen eval examined during rounds, patient remain somnolent but arousable, remains on BiPAP currently on IPAP of 14 and EPAP of 5 with 35% oxygen, labs reviewed white cell count is trickling down is 11,000, hemoglobin remained stable 8.8, creatinine continued to go up is 4.19 now, as per discussion with the renal service proceed with hemodialysis vascular surgery has been consulted, and they have placed and dialysis catheter but patient is hypertensive also some bruising and blood-tinged discharge from the catheter site is present advised to hold on dialysis tonight 04/14/2018 Patient has been more lethargic throughout the day, has been on BiPAP 14/6 with 35% oxygen patient is gently being rehydrated patient does have diffuse anasarca however chest x-ray continue to be normal with normal heart size no effusion is seen him a subtle basal atelectasis cannot be excluded, and labs from today reviewed white cell count remains stable hemoglobin is unchanged platelet count stable as well, renal functions remains poor BUN/ creatinine continued to get worse 23 and 3.99 urine output is very minimal, patient has not received her methadone today, recommend to DC methadone, it appears that patient may need dialysis/ultrafiltration for generalized anasarca and worsening renal failure 04/13/2018, patient seen eval reexamined during the rounds care plan discussed the renal service patient's chest x-ray unremarkable oxygen is stable, patient remains on BiPAP as needed along with oxygen patient has not been using the BiPAP machine very regularly have discussed with the family as well as patient importance to using the BiPAP regularly, I have also advised to stop or discontinue methadone as it may be interfering with the mental status for now dose has been cut down to half, labs reviewed medications reviewed 04/12/2018, patient seen eval examined during the rounds clinically patient is doing better in terms of hemodynamics but remains intermittently tachycardic which is not much change from baseline blood pressure has been stable, patient did not use her BiPAP machine last night, has been more somnolent she is lethargic but readily arousable, she does answer in simple words, moving all 4 extremities, she was noted to have snoring as well as apneic events, family is present at bedside and have discussed with them at length about importance of using the BiPAP machine each night and when necessary during the day will put the BiPAP again with a setting of 14/5 with 35% oxygen, potassium is up slightly urine culture is positive for Enterococcus faecium/VRE, patient is on daptomycin and Zosyn, IV fluids are 100 mL an hour, BUN/creatinine slightly up and baseline 04/11/2018, patient seen eval examined in ICU patient the continue to have issues associated aches and pain she remains a poor historian however does describe generalized pain throughout the body, patient has been nauseous as well a computed tomography scan of the abdominal and pelvis is being ordered, her lactic acid has improved with the fluid resuscitation, patient has been on broad-spectrum antibiotics I urine culture is positive for enterococcus Amsonam labs from today reviewed sodium is 1:30 and production of 5.3 her BUN/ creatinine is 15 and 2.99, overall sodium remains stable hyperkalemia is present renal functions continued to be marginal liters lactic acid check was 1.9, chest x-ray remains stable PICC line site is stable borderline cardiomegaly , patient is getting broad-spectrum antibiotics with Vanco mycin, daptomycin and Zosyn patient is a getting therapy for the lower extremity cellulitis as well along with local care 47-year-old morbidly obese female who was seen evaluated examined in the ICU this patient has been a resident of [facility], patient has problems associated with chronic renal insufficiency, sarcoidosis severely morbidly obese was found to have blood pressure only 60s systolic at the [facility] was notified it appears that blood pressure has been extremely fluctuating it was noted to be 90 by EMS however subsequently was in 150 patient was tachypneic and tachycardic as well no chest pain was present overall patient is a poor historian, patient was eventually admitted into the hospital from the emergency department Robert patient underwent a VQ scan with indeterminate findings, CT angiogram be performed due to elevated creatinine Robert patient has been using BiPAP off and on with a IPAP of 14 and EPAP of 5 and 35% oxygen, patient has been comfortable now she has a low urine output she is getting a fluid challenge of 500 mL crystalloid due to elevated lactic acid followed by 100 mL an hour patient is also on Solu-Cortef which is being switched to Solu-Medrol, currently patient is on bronchodilators and continuation of home medications, heparin for DVT prophylaxis, due to chronic hypertension patient is on midodrine along with broad-spectrum antibiotics along with Zosyn and vancomycin, urine is positive for group D enterococcus, other significant labs were noted to have a lactic acid of 5.8 came down to 3.2 , BUN/creatinine remains stable 40 and 2.93 much chest x-ray revealed cardiomegaly small left-sided pleural effusion with subsegmental atelectasis, patient was transferred to ICU for hypotension and low urine output and elevated lactic acid where she was seen evaluated examined Objective - Vital Signs Vital signs: Vital Signs Temp 97.6 F 04/24/18 12:19 Pulse 92 04/24/18 12:19 Resp 24 04/24/18 12:19 BP 117/68 04/24/18 12:19 Pulse Ox 100 04/24/18 12:19 Intake & Output 04/23/18 04/24/18 04/24/18 18:59 06:59 18:59 Intake Total 2794.467 9255.374 4352.467 Output Total 3012 16 13 Balance -267.933 6901.244 1156.467 Weight 169.8 kg 169.8 kg Intake: IV 672 672 336 Sodium Chloride 0.9% 1, 600 600 300 000 ml @ 50 mls/hr IV . Q20H [facility] Rx#:[id number] pressure bag 72 72 36 Intake, IV Titration 291.467 130.244 85.467 Amount Midazolam HCl 100 mg In 14.533 85.467 Sodium Chloride 0.9% 80 ml @ 0.02 MG/KG/HR 3.46 mls/hr IV .Q24H [facility] Rx#: [id number] Norepinephrine 16 mg In 130.244 Sodium Chloride 0.9% 250 ml @ Titrate IV .Q0M [facility] Rx#:[id number] Propofol 1,000 mg In 276.934 Empty Bag 1 bag @ Titrate IV .Q0M [facility] Rx#: [id number] Tube Feeding 561 306 408 Blood Product 1240 310 Rc As-1 Unit 310 [id number] Rc As-1 Unit 0 [id number] Rc Pheresis As-3 Unit 310 [id number] Rc Pheresis As-3 Unit 310 [id number] Other 30 30 Output: Urine 10 14 12 Stool 2 2 1 Other 3000 Other: Voiding Method Indwelling Catheter Indwelling Catheter Indwelling Catheter ABP, PAP, CO, CI - Last Documented Arterial Blood Pressure 119/68 - Exam Gen: This is a morbidly obese 47-year-old Afro [place] female. Sedated with propofol drip on full ventilator support appear more calm and comfortable HEENT: Head is atraumatic, normocephalic. Pupils equal, round. Sclerae is anicteric. Hearing grossly normal. NECK: Supple. No JVD. No lymphadenopathy. No thyromegaly. LUNGS: Diminished bilaterally. Clear to auscultation. No wheezes or rhonchi. No intercostal retractions. Has been on BiPAP support continuously HEART: Regular rate and rhythm. No murmur. ABDOMEN: Morbidly obese. Soft. Bowel sounds are present. No masses. No tenderness. EXTREMITIES: 2+ pedal edema. Chronic skin inflammatory changes early cellulitis cannot be excluded No calf tenderness. No redness. NEUROLOGICAL: Sedated with low-dose propofol - Labs CBC & Chem 7: 04/24/18 04:20 04/24/18 04:20 Labs: Abnormal Lab Results - Last 24 Hours (Table) 04/20/18 04/23/18 04/23/18 Range/Units 20:06 14:20 14:20 WBC 25.0 H (3.8-10.6) k/uL RBC 2.59 L (3.80-5.40) m/uL Hgb 8.4 L D (11.4-16.0) gm/dL Hct 23.1 L (34.0-46.0) % RDW 16.9 H (11.5-15.5) % Plt Count 71 L (150-450) k/uL Neutrophils # (Manual) 21.50 H (1.3-7.7) k/uL Metamyelocytes # (Man) 1.50 H (0) k/uL Myelocytes # (Manual) 1.00 H (0) k/uL Nucleated RBCs 33 H (0-0) /100 WBC APTT (22.0-30.0) sec ABG pO2 (83-108) mmHg ABG Total CO2 (19-24) mmol/L BUN (7-17) mg/dL Creatinine (0.52-1.04) mg/dL Glucose (74-99) mg/dL POC Glucose (mg/dL) (75-99) mg/dL Calcium (8.4-10.2) mg/dL Total Bilirubin (0.2-1.3) mg/dL AST (14-36) U/L ALT (9-52) U/L Alkaline Phosphatase (38-126) U/L Lactate Dehydrogenase 6098 H (313-618) U/L Total Protein (6.3-8.2) g/dL Albumin (3.5-5.0) g/dL Crossmatch See Detail 04/23/18 04/23/18 04/23/18 Range/Units 14:20 17:15 20:44 WBC (3.8-10.6) k/uL RBC (3.80-5.40) m/uL Hgb (11.4-16.0) gm/dL Hct (34.0-46.0) % RDW (11.5-15.5) % Plt Count (150-450) k/uL Neutrophils # (Manual) (1.3-7.7) k/uL Metamyelocytes # (Man) (0) k/uL Myelocytes # (Manual) (0) k/uL Nucleated RBCs (0-0) /100 WBC APTT 39.6 H (22.0-30.0) sec ABG pO2 (83-108) mmHg ABG Total CO2 (19-24) mmol/L BUN (7-17) mg/dL Creatinine (0.52-1.04) mg/dL Glucose (74-99) mg/dL POC Glucose (mg/dL) 223 H 162 H (75-99) mg/dL Calcium (8.4-10.2) mg/dL Total Bilirubin (0.2-1.3) mg/dL AST (14-36) U/L ALT (9-52) U/L Alkaline Phosphatase (38-126) U/L Lactate Dehydrogenase (313-618) U/L Total Protein (6.3-8.2) g/dL Albumin (3.5-5.0) g/dL Crossmatch 04/24/18 04/24/18 04/24/18 Range/Units 00:43 04:20 04:20 WBC 30.1 H (3.8-10.6) k/uL RBC 2.11 L (3.80-5.40) m/uL Hgb 6.3 L* D (11.4-16.0) gm/dL Hct 18.4 L* (34.0-46.0) % RDW 16.9 H (11.5-15.5) % Plt Count 70 L (150-450) k/uL Neutrophils # (Manual) (1.3-7.7) k/uL Metamyelocytes # (Man) (0) k/uL Myelocytes # (Manual) (0) k/uL Nucleated RBCs (0-0) /100 WBC APTT (22.0-30.0) sec ABG pO2 (83-108) mmHg ABG Total CO2 (19-24) mmol/L BUN 22 H (7-17) mg/dL Creatinine 1.16 H (0.52-1.04) mg/dL Glucose 207 H (74-99) mg/dL POC Glucose (mg/dL) 163 H (75-99) mg/dL Calcium 6.6 L (8.4-10.2) mg/dL Total Bilirubin 8.5 H (0.2-1.3) mg/dL AST 580 H (14-36) U/L ALT 253 H (9-52) U/L Alkaline Phosphatase 310 H (38-126) U/L Lactate Dehydrogenase (313-618) U/L Total Protein 4.1 L (6.3-8.2) g/dL Albumin 2.4 L (3.5-5.0) g/dL Crossmatch 04/24/18 04/24/18 04/24/18 Range/Units 04:28 04:55 06:45 WBC (3.8-10.6) k/uL RBC (3.80-5.40) m/uL Hgb (11.4-16.0) gm/dL Hct (34.0-46.0) % RDW (11.5-15.5) % Plt Count (150-450) k/uL Neutrophils # (Manual) (1.3-7.7) k/uL Metamyelocytes # (Man) (0) k/uL Myelocytes # (Manual) (0) k/uL Nucleated RBCs (0-0) /100 WBC APTT (22.0-30.0) sec ABG pO2 70 L (83-108) mmHg ABG Total CO2 26 H (19-24) mmol/L BUN (7-17) mg/dL Creatinine (0.52-1.04) mg/dL Glucose (74-99) mg/dL POC Glucose (mg/dL) 241 H (75-99) mg/dL Calcium (8.4-10.2) mg/dL Total Bilirubin (0.2-1.3) mg/dL AST (14-36) U/L ALT (9-52) U/L Alkaline Phosphatase (38-126) U/L Lactate Dehydrogenase (313-618) U/L Total Protein (6.3-8.2) g/dL Albumin (3.5-5.0) g/dL Crossmatch See Detail 04/24/18 04/24/18 Range/Units 07:48 11:44 WBC (3.8-10.6) k/uL RBC (3.80-5.40) m/uL Hgb (11.4-16.0) gm/dL Hct (34.0-46.0) % RDW (11.5-15.5) % Plt Count (150-450) k/uL Neutrophils # (Manual) (1.3-7.7) k/uL Metamyelocytes # (Man) (0) k/uL Myelocytes # (Manual) (0) k/uL Nucleated RBCs (0-0) /100 WBC APTT (22.0-30.0) sec ABG pO2 (83-108) mmHg ABG Total CO2 (19-24) mmol/L BUN (7-17) mg/dL Creatinine (0.52-1.04) mg/dL Glucose (74-99) mg/dL POC Glucose (mg/dL) 219 H 174 H (75-99) mg/dL Calcium (8.4-10.2) mg/dL Total Bilirubin (0.2-1.3) mg/dL AST (14-36) U/L ALT (9-52) U/L Alkaline Phosphatase (38-126) U/L Lactate Dehydrogenase (313-618) U/L Total Protein (6.3-8.2) g/dL Albumin (3.5-5.0) g/dL Crossmatch Microbiology - Last 24 Hours (Table) 04/21/18 00:29 Gram Stain - Final Sputum Sputum Culture - Final Pseudomonas aeruginosa Carmel albicans Assessment and Plan Assessment: Health care/ventilator associated pneumonia Severe anemia suspect ongoing chronic hemolysis Labile blood pressure with alternating hypertension followed by hypotension related to severe sepsis and septic shock Acute on chronic renal failure on hemodialysis Progressive worsening renal function and generalized anasarca proceed with hemodialysis as per renal services For ongoing hypotension will maintain patient on levo fed drip a.m. for map about 65-70 so adequate dialysis can be performed, patient is undergoing slow hemodialysis Acute hypoxic and hypercapnic respiratory failure Bilateral basal pneumonia Elevated liver enzyme multifactorial associated with the possibly hypotension Anemia of chronic disease Severe sepsis and septic shock related to enterococcus urinary tract infection with some complaint component from cellulitis of the both lower extremity Bilateral lower extremity cellulitis Elevated lactic acid/metabolic acidosis multifactorial associated with acute on chronic renal failure, urinary tract infection have improved though her and normalized Pulmonary sarcoidosis with possible left lower lobe pneumonia Somnolence and lethargy due to multifactorial processes including methadone currently on hold Small left-sided pleural effusion Dehydration associated with intravascular volume depletion patient is undergoing intermittent crystalloid challenge Severe morbid obesity and obstructive sleep apnea Plan: Transfuse 2 unit of packed RBC Continue broad-spectrum antibiotics Use Versed instead of propofol due to elevated triglyceride level Continue tube feed Ventilator adjustment Reglan IV labs and x-ray tomorrow and adjustment of antibiotics as per ID services Arterial line or better blood pressure monitoring Dialysis as per renal service Dobbhoff tube feed as tolerated Continue broad-spectrum antibiotics DVT and peptic ulcer disease prophylaxis IV steroids, Reviewed labs and radiographic studies ordered for tomorrow, further recommendations pending plan of care as per clinical response of the patient Patient has multiple organ failure with severe sepsis septic shock and hypertension patient has difficult time and tolerating the dialysis, overall long-term prognosis is poor, as per discussion with the family currently patient is a high risk for transfer out of the facility due to being and required ongoing long dialysis on vasopressors and related to her size Further recommendations pending plan of care as per clinical response of patient crackle care time spent 35 minutes overall long-term prognosis is very poor once recovered from significant metabolic , hematologic, and hemodynamic disturbance than would likely require trach and PEG for long-term weaning, critical care time 35 minutes Time with Patient: Greater than 30
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
--- NOTE | 2018-04-24 13:32 | PN ---
PROGRESS NOTE Patient is seen for followup for acute kidney injury. She remains oliguric and remains dialysis dependent. We are dialyzing her daily through the SLED procedure. The patient has had about 2.5 to 3 L of ultrafiltration for the last 4 days. She seems to be tolerating that fairly okay. Patient remains on the vent. She continues to have significant lower extremity edema and weeping from upper and lower extremities. Hemoglobin continues to drop. Patient has been receiving packed RBCs transfusion. Platelets have also decreased. She is being seen by Hematology today. No active bleeding is noted. PHYSICAL EXAMINATION: On examination today, blood pressure was 111/63, heart rate 96 per minute. Patient is afebrile. EXAMINATION OF THE HEART: S1 and S2. EXAMINATION OF THE LUNGS: Bilateral breath sounds are heard. Abdomen is soft, morbidly obese. Examination of the lower extremities shows bilateral extremities to be wrapped. There is significant weeping noted upper and lower extremities. LABS: Labs show sodium 137, potassium 4.3, creatinine 1.16, hemoglobin 6.3 g/dL. ASSESSMENT: 1. Acute kidney injury, most likely acute tubular necrosis, currently oliguric. In view of decreasing hemoglobin and platelet count, there is consideration for TTP. The patient is being followed by Hematology. We will continue with daily dialysis for now given the severe hypervolemia. We will not be using heparin with dialysis given the thrombocytopenia. 2. Ventilator-dependent respiratory failure. 3. History of sarcoidosis. 4. Blistering on lower extremities, possibly related to underlying acute inflammatory reaction versus severe hypervolemia. 5. Hypophosphatemia, status post replacement. 6. Hypokalemia, status post replacement, currently improved. PLAN: Continue daily SLED procedures with goal UF of about 2 to 3 L. Hold off on heparin with dialysis. MMODL / IJN: [id number] /
--- NOTE | 2018-04-24 13:38 | P.PN ---
Subjective Progress Note Date: 04/24/18 This is 47 years old female with past medical history significant for sarcoidosis, morbid obesity, diabetes mellitus and multiple comorbidities, residence [facility] who was recently discharged from [facility] presents today from [facility] with hypotension, slight tachycardia and hypoxia. In the emergency department blood pressure was below 90/60, heart rate in the 110 area, oxygen was in the mid 80s patient was started on oxygen and blood work showed elevated creatinine patient was sent to VQ scan which showed intermediate probability with limited examination due to motion factor and patient was started on heparin drip for assumption of pulmonary embolism. Patient is poor historian and unable to provide detailed information and was refusing care per nursing staff since admission to the floor including her medication and using her BiPAP on an as-needed basis. Patient currently is denying chest pain, shortness breath, nausea, vomiting, abdominal pain or productive cough 04/10: Received call today from the nursing staff the patient was really sick, blood pressure was low and was lethargic and sleeping well on BiPAP most the morning and lactic acid was elevated at 5.8 last evening.. She was unable to take her medications or eat this morning. She has increased edema. Patient has only had 150 mL of urine output overnight. She does have a Lopez catheter in. There was no IV access. Patient has been seen by by nephrology and cortisol level ordered along with Solu-Cortef and Lasix 60 mg IV once. Prednisone was discontinued. Patient was transferred into the intensive care unit and consult requested with Dr. Robin for intensive care management. Methadone dose changed to 50 mg daily which is her current dose at [facility]. Diarrhea has resolved. 04/11: Repeat chest x-ray reveals stable cardiomegaly. PICC placement. Patient has been seen by Dr. Colon and vancomycin and daptomycin started, continue Zosyn. Santyl to lower extremity cellulitis. Patient has been seen by Dr. Robin with concern for possible left lower lobe pneumonia, small left pleural effusion and dehydration. This morning, Dr. Moran ordered Lasix 40 mg IV once , IV dextrose 50% and regular insulin. Cortisol level was normal. Steroids are Solu-Medrol 60 mg every 6 hours. Midodrine was started yesterday for blood pressure support. Blood pressure is much improved today. Hemoglobin is 9.3, sodium 131 and potassium 5.3, creatinine 2.99. Capillary blood glucose running between 117 and 134. Lactic acid is now down to 1.9. Vancomycin level 25.6. Patient has been hemodynamically stable, afebrile. Patient has been on BiPAP and this morning is on nasal cannula, she remains lethargic but more alert from yesterday. Lopez catheter is in place. She continues to have lower extremity edema and now with weeping. No diarrhea. Patient has not had a bowel movement since 04/10. Urine output has been adequate at 50 mL per hour for the past 4 hours. She is complaining of nausea and abdominal discomfort for which lipase and CAT scan of the abdomen and pelvis ordered with oral contrast only. 04/12: Patient remains in intensive care unit. She has been hemodynamically stable and Midodrine will be discontinued. Lopez catheter remains in place with good urine output. She had a large bowel movement last evening and a small soft bowel movement today. Creatinine is 3.36 and BUN 17.. Heart rates have been elevated. Patient is more alert today from yesterday. GI consult added for elevated liver function tests and abdominal ultrasound ordered. 04/13: Cardiology consult was added yesterday due to tachycardia and patient was started on Lopressor 12.5 mg twice daily and hold for systolic blood pressure less than 90. TSH was 1.620. She has been on BiPAP during the night. Abdominal ultrasound reveals hepatomegaly correlate for hepatic steatosis, diffuse hepatocellular disease or hepatitis. There is ringing down artifact involving the gallbladder wall which can occasionally be seen with adenomyomatosis. Repeat liver function tests are increasing with total bilirubin 1.8, AST 82, ALT 54, alkaline phosphatase 278. GI is following. BUN 20 and creatinine 3.67, urine output low. She has epigastric tenderness and protonix added to omeprazole. Patient eating very little and refused nephro today. She is cleared to be transferred to Cardiac Step down. 04/14: Patient is more lethargic today. She is refusing to open her mouth. She has had no oral medications nor oral intake. Yesterday she ate a little bit of fluid and Magic cups. She is currently on BiPAP at FiO2 of 35%. Urine output by the time of evaluation was only 25-30 mL. Lasix 80 mg IV ordered by Dr. Moran. Patient may require hemodialysis if renal function does not improve. Today creatinine is at 3.99. Oral sodium bicarb will be switched over to drip. GI is following and has been asked to place Dobbhoff. Ammonia level came back normal at 18. Liver function tests are also worsening. 04/15: Patient is awake this morning on BiPAP. Very little communication but nods her head. She is complaining of nausea and abdominal pain. She had a bowel movement early this morning. Renal function is worse with creatinine of 4.9, hemoglobin 8.8. Nephrology has ordered consult with vascular for Cuba catheter placement with plan for hemodialysis today, Tuesday and Tuesday. Urine output has been less than 200 mL over the past 24 hours. Patient to continue on sodium bicarb drip. Nephrology is added back in mid drain. Dobbhoff to be placed today. 04/16: Patient remains in the intensive care unit. She was started on Levophed this morning for blood pressure. She is still on BiPAP. [place] catheter was placed by Dr. Winter yesterday to the right groin but she did have blood loss and was advised to hold off on dialysis. This is improved with no further bleeding. She continues to have scant amount of urine output. Plan from nephrology is for dialysis today she was resumed back on admitted draining yesterday. Bicarb drip is to be discontinued once dialysis is started. Patient is sleeping but awakens to verbal stimuli. She is able to nod to answer questions. She has generalized anasarca. Noted that she has gained 20 kg since admission. She has not had Dobbhoff placed by GI 04/17: Patient is off norepinephrine. Dobbhoff may be placed tonight. She does have a new wound to the right posterior knee area. She also has a skin tear to the left arm. She is currently on antibiotics in form of daptomycin and Zosyn which will be continued. She is undergoing hemodialysis. Hemoglobin is 7.2 with BUN 27 creatinine 3.58. Liver enzymes remain elevated. Hepatitis B surface antibody is reactive at 74. 04/18: Patient will be undergoing hemodialysis this morning. She was placed back on norepinephrine drip last evening and has been intermittently for blood pressure systolic of 80. She is able to answer yes and no to questions. Liver function tests continued to rise. has recommended transfer to [facility] but patient is not candidate for biopsy. We have known in the past that the sister has been very resistant to her transferring out of [place] to [facility]. She now has an NG tube in place and receiving nephro that will be at goal liters today. Hepatitis B surface antibody was reactive at 74. There is concern that she is not been receiving methadone but this has been clarified by pain management that this can be crushed and put an NG tube which will be continued. White count is 14.8, hemoglobin 7.4, INR 1.5. BUN 20 creatinine 2.84 which is improved over the past couple days. AST 663, ALT 212, alkaline phosphatase 392. Total bilirubin is 4.9. Capillary blood glucose running between 130 and 166. We'll plan to monitor for at least another 24 hours and then discuss possible transfer with the family. Records reviewed from [facility]. 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 In 2016, PFT showed mild restriction with normal diffusion capacity. No response to bronchodilators. She had good response to Enbrel for 3 years but had to be stopped due to insurance company authorization. 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 She was not evaluated by neurosurgery and she had improvement of her mental status. MRI of the spine revealed fatty atrophy of the paraspinal musculature. No significant canal compromise or cord compression. Limited evaluation of right brachial plexus with no obvious abnormality. 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 Plan: wean prednisone down by 5 mg every week to end point of 20 mg, follow up with Dr. Gar[facility] April 25 at 1:15 and neurology follow-up with Dr. Garzon on April 03 at 9 AM. 04/19: Patient is more unresponsive today and remains on BiPAP and tachypneic. Patient was started on a Narcan drip last evening and was slightly more awake after this was started but then mental status declined. She was placed back on norepinephrine possibly related to clonidine patch. She is receiving 2 units of packed RBCs this morning for hemoglobin of 5.9. Dialysis was attempted this morning but due to hypotension this was not completed. She was started on a bicarb drip and nephrology adding an oral bicarb as well. Plan to attempt hemodialysis tomorrow. She has had scant urine output. She is tolerating tube feedings at goal. Limited echocardiogram revealed EF 60-65%, mild tricuspid regurgitation and moderate pulmonary hypertension. GI is recommending transfer to tertiary care center have PT/INR worsens. INR 1.6. AST 829, ALT 262, alkaline phosphatase 420, albumin 2.3. We did order 3 doses of albumin yesterday and will repeat today. Dr. Robin attempted a right IJ triple-lumen catheter and has been ordered for PICC line placement. CAT scan of the abdomen and pelvis without contrast showed fatty infiltration of the liver. Nonobstructive right renal calculi. Abdomen pelvis unchanged. Extensive subcutaneous edema bilaterally that is probably increased. No retroperitoneal hemorrhage. White count jumped to 28.7. Dr. Colon has discontinued daptomycin as treatment is completed for VRE UTI. Zosyn started for new left lower lobe infiltrate, possible aspiration she was vomiting yesterday. Cortisol level and ACTH will be checked in the morning 04/20: Patient was intubated last night. She is on levo at 8 mics. She is scheduled for hemodialysis today. She has had no urine output. She is currently off the Narcan drip and bicarb drip. Respiratory status appears more comfortable on the ventilator. She did have a right-sided IJ triple-lumen placed by Dr. Robin yesterday. Discussed with father, option of transfer to [facility] and he is undecided. He states that they are not going to do anything different than what transfer. Await further input from consultants. White count is 26.6, hemoglobin 7.9, platelet count 124, INR 1.8, BUN 20 creatinine 2.34. Total bilirubin 6.6, AST 840, ALT 289, alkaline phosphatase 395. Cortisol level came back at 41 and ACTH 5.19. 04/21: Patient undergoing dialysis today. Levo currently at 4 mics. She has received another unit of packed RBCs. Hemodialysis got off 500 mL yesterday. No plan for sedation holiday. Dr. Robin is following. Dr. Thompson discussed in detail the patient's current condition and prognosis with the patient's sister. Plan is to continue current treatment. 04/22: Patient was on levo fed at 4 mics needed to be increased to 10 while on hemodialysis. And it up getting 2 L off of with hemodialysis yesterday. She is on Solu-Medrol 60 mg IV every 6 hours it was started by Dr. KASIE Anderson. Blood sugars are running high and patient will be placed on Levemir 15 units daily. She is planned for a sedation holiday today. She is having liquid stools 2-3 per day and Reglan will be stopped. Triglyceride level will be checked as patient has been on propofol. Yesterday she did receive a dose of vitamin K for INR 1.5. Today creatinine is 1.48 with BUN of 16. Liver function tests are improving except for bilirubin continues to increase and currently at 7.1. AST 298, ALT 195 and alkaline phosphatase 430. Triglycerides came back at 915. Repeat chest x-ray shows bibasilar airspace disease. Improvement in patient' s findings status. 04/23: Level came back at 915 possibly related to propranolol. Nursing to update Dr. Robin regarding possibly changing to another agent for sedation. Patient was not able to tolerate a sedation holiday yesterday. She remains on ventilator with tidal volume 500 FiO2 60 and PEEP of 5. Patient is undergoing hemodialysis this morning. She continues to have very minimal urine output that is brown in color. Extremities have weeping wounds. Sclerae jaundiced. White count 33.2, hemoglobin 5.5 and platelet count is 88. BUN is 18 and creatinine 1.35. Blood sugars are running in the low 200s. PTT and PT are elevated and had to be sent to [facility] for testing. Dr. Robin to be notified. Patient did have hip antibody screen which came back negative on April 19. Patient is currently on norepinephrine at 11 mics. 04/24: IV sedation has been changed to Versed. Patient is on levo fed at 3 mics this morning. She was undergoing dialysis/SLED for the past 3 days. White count is now at 30.1, hemoglobin 6.3, platelet count at 70. BUN 22 and creatinine 1.16. Liver function tests remain elevated. LDH came back at 6098. INR is 1.1. IV albumin was ordered yesterday. Patient is on tube feedings and tolerating without any difficulty. Plan is to have a family meeting tomorrow regarding further determination on treatment or possibly comfort care. Review Of Systems: Intubated and on mechanical ventilation Objective - Vital Signs Vital signs: Vital Signs Temp 97.5 F L 04/24/18 09:52 Pulse 94 04/24/18 10:30 Resp 26 H 04/24/18 10:30 BP 93/55 04/24/18 09:52 Pulse Ox 99 04/24/18 10:30 Intake & Output 04/23/18 04/24/18 04/24/18 18:59 06:59 18:59 Intake Total 2794.467 1108.244 564.467 Output Total 3012 16 3 Balance -022.112 6017.244 561.467 Weight 169.8 kg Intake: IV 672 672 224 Sodium Chloride 0.9% 1, 600 600 200 000 ml @ 50 mls/hr IV . Q20H L[facility] Rx#:[id number] pressure bag 72 72 24 Intake, IV Titration 291.467 130.244 85.467 Amount Midazolam HCl 100 mg In 14.533 85.467 Sodium Chloride 0.9% 80 ml @ 0.02 MG/KG/HR 3.46 mls/hr IV .Q24H L[facility] Rx#: [id number] Norepinephrine 16 mg In 130.244 Sodium Chloride 0.9% 250 ml @ Titrate IV .Q0M [facility] Rx#:[id number] Propofol 1,000 mg In 276.934 Empty Bag 1 bag @ Titrate IV .Q0M L[facility]LIE Rx#: [id number] Tube Feeding 561 306 255 Blood Product 1240 0 Rc As-1 Unit 0 [id number] Rc Pheresis As-3 Unit 310 [id number] Rc Pheresis As-3 Unit 310 [id number] Other 30 Output: Urine 10 14 2 Stool 2 2 1 Other 3000 Other: Voiding Method Indwelling Catheter Indwelling Catheter Indwelling Catheter ABP, PAP, CO, CI - Last Documented Arterial Blood Pressure 110/59 - Exam Gen: This is a morbidly obese 47-year-old female. She is in ICU bed intubated and on mechanical ventilation. Patient appears to be comfortable. No change in condition. HEENT: Head is atraumatic, normocephalic. Pupils equal, round. Sclerae is icteric. Oral ET and NG tube in place NECK: Supple. No JVD. No lymphadenopathy. No thyromegaly. LUNGS: Diminished bilaterally. Clear to auscultation. No wheezes or rhonchi. No intercostal retractions. HEART: Regular rate and rhythm. No murmur. ABDOMEN: Morbidly obese. Generalized anasarca Soft. Bowel sounds are present. No masses. Positive epigastric tenderness. Lopez catheter draining clear benjy urine, scant amount. EXTREMITIES: 2-3+ pedal edema with serous weeping severe to lower extremities. No calf tenderness. +wound posterior bilateral lower extremities, groins, bilateral arms. NEUROLOGICAL: Patient is sedated. - Labs CBC & Chem 7: 04/24/18 04:20 04/24/18 04:20 Labs: Abnormal Lab Results - Last 24 Hours (Table) 04/20/18 04/23/18 04/23/18 Range/Units 20:06 07:43 11:52 WBC 27.0 H (3.8-10.6) k/uL RBC (3.80-5.40) m/uL Hgb (11.4-16.0) gm/dL Hct (34.0-46.0) % RDW (11.5-15.5) % Plt Count (150-450) k/uL Neutrophils # (Manual) 19.70 H (1.3-7.7) k/uL Metamyelocytes # (Man) 2.43 H (0) k/uL Myelocytes # (Manual) 2.97 H (0) k/uL Promyelocytes # (Man) 0.27 H (0) k/uL Nucleated RBCs 23 H (0-0) /100 WBC APTT (22.0-30.0) sec ABG pO2 (83-108) mmHg ABG Total CO2 (19-24) mmol/L BUN (7-17) mg/dL Creatinine (0.52-1.04) mg/dL Glucose (74-99) mg/dL POC Glucose (mg/dL) 204 H (75-99) mg/dL Calcium (8.4-10.2) mg/dL Total Bilirubin (0.2-1.3) mg/dL AST (14-36) U/L ALT (9-52) U/L Alkaline Phosphatase (38-126) U/L Lactate Dehydrogenase (313-618) U/L Total Protein (6.3-8.2) g/dL Albumin (3.5-5.0) g/dL Crossmatch See Detail 04/23/18 04/23/18 04/23/18 Range/Units 14:20 14:20 14:20 WBC 25.0 H (3.8-10.6) k/uL RBC 2.59 L (3.80-5.40) m/uL Hgb 8.4 L D (11.4-16.0) gm/dL Hct 23.1 L (34.0-46.0) % RDW 16.9 H (11.5-15.5) % Plt Count 71 L (150-450) k/uL Neutrophils # (Manual) 21.50 H (1.3-7.7) k/uL Metamyelocytes # (Man) 1.50 H (0) k/uL Myelocytes # (Manual) 1.00 H (0) k/uL Promyelocytes # (Man) (0) k/uL Nucleated RBCs 33 H (0-0) /100 WBC APTT 39.6 H (22.0-30.0) sec ABG pO2 (83-108) mmHg ABG Total CO2 (19-24) mmol/L BUN (7-17) mg/dL Creatinine (0.52-1.04) mg/dL Glucose (74-99) mg/dL POC Glucose (mg/dL) (75-99) mg/dL Calcium (8.4-10.2) mg/dL Total Bilirubin (0.2-1.3) mg/dL AST (14-36) U/L ALT (9-52) U/L Alkaline Phosphatase (38-126) U/L Lactate Dehydrogenase 6098 H (313-618) U/L Total Protein (6.3-8.2) g/dL Albumin (3.5-5.0) g/dL Crossmatch 04/23/18 04/23/18 04/24/18 Range/Units 17:15 20:44 00:43 WBC (3.8-10.6) k/uL RBC (3.80-5.40) m/uL Hgb (11.4-16.0) gm/dL Hct (34.0-46.0) % RDW (11.5-15.5) % Plt Count (150-450) k/uL Neutrophils # (Manual) (1.3-7.7) k/uL Metamyelocytes # (Man) (0) k/uL Myelocytes # (Manual) (0) k/uL Promyelocytes # (Man) (0) k/uL Nucleated RBCs (0-0) /100 WBC APTT (22.0-30.0) sec ABG pO2 (83-108) mmHg ABG Total CO2 (19-24) mmol/L BUN (7-17) mg/dL Creatinine (0.52-1.04) mg/dL Glucose (74-99) mg/dL POC Glucose (mg/dL) 223 H 162 H 163 H (75-99) mg/dL Calcium (8.4-10.2) mg/dL Total Bilirubin (0.2-1.3) mg/dL AST (14-36) U/L ALT (9-52) U/L Alkaline Phosphatase (38-126) U/L Lactate Dehydrogenase (313-618) U/L Total Protein (6.3-8.2) g/dL Albumin (3.5-5.0) g/dL Crossmatch 04/24/18 04/24/18 04/24/18 Range/Units 04:20 04:20 04:28 WBC 30.1 H (3.8-10.6) k/uL RBC 2.11 L (3.80-5.40) m/uL Hgb 6.3 L* D (11.4-16.0) gm/dL Hct 18.4 L* (34.0-46.0) % RDW 16.9 H (11.5-15.5) % Plt Count 70 L (150-450) k/uL Neutrophils # (Manual) (1.3-7.7) k/uL Metamyelocytes # (Man) (0) k/uL Myelocytes # (Manual) (0) k/uL Promyelocytes # (Man) (0) k/uL Nucleated RBCs (0-0) /100 WBC APTT (22.0-30.0) sec ABG pO2 (83-108) mmHg ABG Total CO2 (19-24) mmol/L BUN 22 H (7-17) mg/dL Creatinine 1.16 H (0.52-1.04) mg/dL Glucose 207 H (74-99) mg/dL POC Glucose (mg/dL) 241 H (75-99) mg/dL Calcium 6.6 L (8.4-10.2) mg/dL Total Bilirubin 8.5 H (0.2-1.3) mg/dL AST 580 H (14-36) U/L ALT 253 H (9-52) U/L Alkaline Phosphatase 310 H (38-126) U/L Lactate Dehydrogenase (313-618) U/L Total Protein 4.1 L (6.3-8.2) g/dL Albumin 2.4 L (3.5-5.0) g/dL Crossmatch 04/24/18 04/24/18 04/24/18 Range/Units 04:55 06:45 07:48 WBC (3.8-10.6) k/uL RBC (3.80-5.40) m/uL Hgb (11.4-16.0) gm/dL Hct (34.0-46.0) % RDW (11.5-15.5) % Plt Count (150-450) k/uL Neutrophils # (Manual) (1.3-7.7) k/uL Metamyelocytes # (Man) (0) k/uL Myelocytes # (Manual) (0) k/uL Promyelocytes # (Man) (0) k/uL Nucleated RBCs (0-0) /100 WBC APTT (22.0-30.0) sec ABG pO2 70 L (83-108) mmHg ABG Total CO2 26 H (19-24) mmol/L BUN (7-17) mg/dL Creatinine (0.52-1.04) mg/dL Glucose (74-99) mg/dL POC Glucose (mg/dL) 219 H (75-99) mg/dL Calcium (8.4-10.2) mg/dL Total Bilirubin (0.2-1.3) mg/dL AST (14-36) U/L ALT (9-52) U/L Alkaline Phosphatase (38-126) U/L Lactate Dehydrogenase (313-618) U/L Total Protein (6.3-8.2) g/dL Albumin (3.5-5.0) g/dL Crossmatch See Detail Microbiology - Last 24 Hours (Table) 04/21/18 00:29 Gram Stain - Final Sputum Sputum Culture - Final Pseudomonas aeruginosa Carm[place] albicans Assessment and Plan Plan: 1. Sepsis with septic shock secondary to urinary tract infection with lactic acidosis. Intensive care unit management. PICC line ordered for IV access. Consults with Dr. Robin and Dr. Colon appreciated. Patient completed course of daptomycin. IVF per Dr. Moran 2. Intermediate probability of pulmonary embolism ruled out. Pulmonary medicine is following 3. Acute respiratory failure on chronic respiratory failure with hypoxia. Continue albuterol nebulizer treatments every 6 hours, DuoNeb treatments every 4 hours as needed, Pulmicort twice daily, Solu-Medrol. Intubated and on mechanical ventilation management by Dr. Robin 4. Morbid obesity with BMI of 59. 5. Neurogenic bladder with incontinence. Urinary retention requiring Lopez catheter placement. 6. Diabetes mellitus type 2 insulin-dependent. Metformin on hold. NovoLog scale before meals and at bedtime. 7. Debility and deconditioning. 8. Dehydration. 9. Acute kidney injury and ATN likely secondary to dehydration with hyperkalemia. Consult with nephrology appreciated. [place] catheter has been placed by Dr. Winter. Patient on hemodialysis, 10. 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 11. Hyperkalemia 12. Metabolic encephalopathy secondary to sepsis, respiratory failure, liver failure. 13. Chronic pain. Methadone discontinued and patient was placed on Narcan drip. 14. Abdominal pain with worsening liver function tests mostly secondary to heart failure and congestion. 15. Severe protein calorie malnutrition. NG tube feedings. Dietitian is following. Albumin IV ordered. 16. Metabolic acidosis. Sodium bicarb oral and IV. 17. GERD and possible gastritis. Continue Pepcid and Protonix 18. Aspiration pneumonia. Continue Zosyn. Dr. Colon is following. 19. Multiorgan failure with respiratory, renal and liver failure. CODE STATUS: Full code Prognosis poor Discharge plan: Return to [facility] as long-term resident. Patient is known to have guardian. (Sister and father). Patient may be candidate for hospice in the near future. Family meeting tomorrow/ Impression and plan of care have been directed as dictated by the signing physician. Jeanne Roca nurse practitioner acting as scribe for signing physician.
[2018-04-24 13:46] LABS: Reticulocyte % 2.6 % (0.5-2.0)
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
[2018-04-24 15:03] LABS: Bilirubin, Conjugated 8.7 mg/dL (0.0-0.3); Bilirubin, Delta 1.6 mg/dL (0.0-0.2); Bilirubin,Unconjugated 0.7 mg/dL (0.0-1.1)
[2018-04-24 17:25] LABS: Glucose,Whole Blood 167 mg/dL (75-99)
[2018-04-24 19:07] LABS: Anisocytosis Slight; HCT 25.1 % (34.0-46.0); MCH 31.1 pg (25.0-35.0); MCHC 35.4 g/dL (31.0-37.0); MCV 87.9 fL (80.0-100.0); Mean Platelet Volume 11.5; Poikilocytosis Slight; RBC 2.85 m/uL (3.80-5.40); RDW 16.3 % (11.5-15.5); WBC 34.3 k/uL (3.8-10.6)
[2018-04-24 19:10] LABS: HGB 8.9 gm/dL (11.4-16.0); Platelet Count 67 k/uL (150-450)
[2018-04-24 20:26] LABS: Glucose,Whole Blood 256 mg/dL (75-99)
--- NOTE | 2018-04-24 22:05 | PN ---
PROGRESS NOTE DATE OF SERVICE: 04/24/2018. REASON FOR FOLLOW UP: 1. Pseudomonas aeruginosa pneumonia. 2. Bilateral groin cutaneous candidiasis and leg blisters and wound. INTERVAL HISTORY: The patient is currently afebrile. She is hemodynamically stable. Requiring very small amount of pressor support. Blood pressure has been stable. Has been getting dialysis, tolerating her tube feeds. No diarrhea present per the nursing staff. Still has significant swelling, formation of the legs. EXAMINATION: Blood pressure 135/72 with a pulse of 96, temperature 97.4. She is 100% on 55% FiO2. General description is a middle-aged female lying in bed in no distress. RESPIRATORY SYSTEM: Unlabored breathing with decreased breath sounds at the bases. No wheeze. Heart S1, S2. Regular rate. Legs are currently wrapped up with minimal drainage on the dressing. LABS: Hemoglobin 6.8, white count 30,000. BUN of 22, creatinine is 1.16. Liver enzymes still elevated but have shown a downward trend. DIAGNOSTIC IMPRESSION AND PLAN: The patient with Pseudomonas Aeruginosa and pneumonia for which the patient currently covered with meropenem. The patient seems to have elevated white count could be related to possible oropharyngeal candidiasis in a patient who did have evidence of sputum as well. Diflucan will be added to the antibiotic regime. Will monitor clinical course. Overall poor prognosis. Continue supportive care. MMODL / IJN: [id number] /
[2018-04-24] MEDS: FLUCONAZOLE 100 MG TAB NG-TUBE SCH (22:26)
[2018-04-24] MEDS: NOREPINEPHRINE 16 MG in SODIUM CHLORIDE 0.9% 250 ML IV SCH (22:34)
[2018-04-24 23:32] LABS: Glucose,Whole Blood 243 mg/dL (75-99)
[2018-04-25 04:11] LABS: Glucose,Whole Blood 265 mg/dL (75-99)
[2018-04-25 04:25] LABS: INR 1.1 (<1.2); Prothrombin Time 10.5 sec (9.0-12.0)
[2018-04-25] MEDS: INSULIN ASPART 100 UNIT/ML 1 ML 10 ML VIAL SQ SCH ×5 (04:26→20:59)
[2018-04-25 04:35] LABS: ABG Base Excess 1.8 mmol/L; ABG HCO3 26 mmol/L (21-25); ABG Oxygen Saturation 97.5 % (94-97); ABG PCO2 41 mmHg (35-45); ABG PH 7.42 (7.35-7.45); ABG PO2 87 mmHg (83-108); ABG TCO2 28 mmol/L (19-24)
[2018-04-25 04:56] LABS: Albumin 2.3 g/dL (3.5-5.0); Calcium 6.6 mg/dL (8.4-10.2); Phosphorus 2.6 mg/dL (2.5-4.5); Potassium 4.4 mmol/L (3.5-5.1); Total Bilirubin 10.2 mg/dL (0.2-1.3); Total Protein 4.1 g/dL (6.3-8.2)
[2018-04-25 05:14] LABS: Magnesium 2.1 mg/dL (1.6-2.3)
[2018-04-25 05:50] LABS: Anisocytosis Slight; HCT 22.6 % (34.0-46.0); HGB 7.9 gm/dL (11.4-16.0); MCH 30.7 pg (25.0-35.0); MCV 87.9 fL (80.0-100.0); Mean Platelet Volume 12.5; Platelet Count 55 k/uL (150-450); Poikilocytosis Slight; RBC 2.57 m/uL (3.80-5.40); RDW 16.4 % (11.5-15.5)
[2018-04-25 06:58] LABS: Band Neutrophils % 29 %; Eosinophils # (M) 0.16 k/uL (0-0.7); Lymphocytes # (M) 2.81 k/uL (1.0-4.8); Metamyelocytes # (M) 0.78 k/uL (0); Metamyelocytes % 5 %; Monocytes # (M) 0.16 k/uL (0-1.0); Myelocytes # (M) 0.16 k/uL (0); Myelocytes % 1 %; Neutrophils % (M) 48 %; Nucleated Red Blood Cells 100 /100 WBC (0-0); Total Cells Counted 200; WBC 15.6 k/uL (3.8-10.6)
[2018-04-25 06:59] LABS: Polychromasia Present
[2018-04-25 07:01] LABS: Target Cells Present
[2018-04-25 07:08] LABS: Toxic Vacuolation Present
[2018-04-25 07:09] LABS: Large Platelets Present
[2018-04-25] MEDS: ALBUTEROL NEBULIZED 2.5 MG/3 ML INHALATION SCH ×3 (07:35→19:53)
[2018-04-25] MEDS: BUDESONIDE 0.5 MG/2 ML NEBU INHALATION SCH ×2 (07:35→19:54)
--- NOTE | 2018-04-25 08:16 | XR ---
EXAMINATION TYPE: XR chest 1V portable DATE OF EXAM: 04/25/2018 COMPARISON: Prior chest x-ray 04/24/2018 HISTORY: Intubated TECHNIQUE: Single frontal view of the chest is obtained. FINDINGS: Endotracheal tube, NG tube, right jugular central venous catheter, right PICC line are sta ble. There are overlying cardiac leads. Bibasilar increased density persists. Heart size is likely st able. No evident pneumothorax. IMPRESSION: Stable findings. Correlate for basilar pneumonia versus edema and possible associated ef fusion, atelectasis, follow-up recommended.
[2018-04-25 09:00] LABS: Glucose,Whole Blood 252 mg/dL (75-99)
[2018-04-25] MEDS: INSULIN DETEMIR 100 UNIT/ML 10 ML VIAL SQ SCH (09:13)
[2018-04-25] MEDS: MEROPENEM 1 GM in SODIUM CHLORIDE 0.9% 100 ML IVPB SCH ×2 (09:14→20:39)
[2018-04-25] MEDS: MIDODRINE 5 MG TAB PO SCH ×3 (09:16→16:55)
[2018-04-25] MEDS: SODIUM BICARBONATE TAB 650 MG TAB PO SCH ×2 (09:17→20:39)
[2018-04-25] MEDS: methylPREDNISolone SOD SUCCI 125 MG/2 ML VIAL IV SCH ×2 (09:18→16:55)
[2018-04-25] MEDS: FLUCONAZOLE 100 MG TAB NG-TUBE SCH (09:18)
[2018-04-25] MEDS: PANTOPRAZOLE 40 MG/10 ML VIAL IVP SCH (09:20)
[2018-04-25] MEDS: CHLORHEXIDINE GLUCONATE 15 ML CUP MUCOUS MEM SCH ×2 (09:21→20:39)
[2018-04-25] MEDS: MIDAZOLAM HCL 100 MG in SODIUM CHLORIDE 0.9% 80 ML IV SCH (10:45)
--- NOTE | 2018-04-25 11:04 | P.PN ---
Subjective Progress Note Date: 04/25/18 Interval history: 04/18/18:Patient is being seen examined and evaluated today on rounds. She continues to be in the ICU. She continues on the BiPAP and is tolerating that well. Currently she is undergoing dialysis and potentially having 2 L of fluid to be pulled off. She has been on and off of vasopressors in the last 24 hours. Currently the patient was put back on Levophed. She currently is on tube feeds and is tolerating that well. She continues on IV steroids. She is afebrile, no further complaints. Her labs from this morning are reviewed. Her AST has increased to 663, a LT increased to 212, her bilirubin increased to 4.9 , BUN is 20, creatinine is 2.84, hemoglobin is stable at 7.4, daily after meals 14.8. Her care team follows her closely in collaboration including internal medicine, nephrology, pulmonary, infectious disease, intensivists, GI physician , cardiology, vascular surgery, and recently added pain management. 04/19/18: Patient is being seen examined and evaluated on rounds while in the intensive care unit today. PE patient was put on a Narcan drip yesterday. According to the nurses staff was slightly more awake after that was initiated. She continues on Levophed at 5 mics. The patient will be starting a bicarb drip and will be getting 2 units of packed red blood cells. Her labs this morning did reveal a hemoglobin of 5.9 and yesterday was 7.4. She also had ABGs from this morning and it revealed a pH of 7.26, pCO2 26, pO2 169 and HCO3 of 12. Dialysis was attempted this morning however the patient became extremely hypotensive and the fluid had to be given back to her. Currently she is in a positive fluid balance. She has had minimal scant urine output. She has been tolerating her tube feedings. She continues on BiPAP, is tachypnea. She did under go an arterial line placement yesterday. Chest x-ray from this morning is currently pending. LFT continue to climb, AST increased to 829 a ALT 262, alkaline phosphatase 420, albumin is 2.3 receiving albumin infusions. 04/20/18- patient is being seen examined and evaluated today while on rounds in the intensive care unit. The patient was obtunded and went into respiratory distress yesterday and was subsequently intubated. She also did receive a central line placement yesterday. Currently she is on mechanical ventilation with propofol for sedation. Current ventilator settings are assist-control mode with a respiratory rate of 24, tidal volume of 500, FiO2 70% and a PEEP of 5. Blood gases from this morning did reveal a pH of 7.44, pCO2 32, pO2 284, HCO3 22. She continues on Levophed drip at 4 mics, propofol is at 30 mics. She also is on the bicarb drip. Liver function tests did reveal this morning AST increased to 840, ALT increased to 289, alkaline phosphorus 395 and a bilirubin increased to 6.6. Her BUN is 20, creatinine is 2.34. She was unable to undergo dialysis yesterday. Plan is to receive dialysis today. Her hemoglobin yesterday was 5.9. Today it is increased to 7.9 she did have 2 units of packed red blood cells yesterday. Her chest x-ray from this morning is revealed continues to show bilateral consolidation with small effusions. She did undergo a CT of the abdomen and pelvis yesterday which did show fatty infiltration of the liver, nonobstructing right renal calculi, extensive subcutaneous edema bilaterally that is increased compared to last exam no evidence of retroperitoneal hemorrhages. Her urine output continues to be minimal. Per the nursing notes there is a family meeting planned for 2017 at 11 AM to discuss patient's prognosis and goals of care. 04/21/18, 04/22/18, 04/23/18- please see Dr KASIE Earl notes 04/24/18- patient is being seen examined and evaluated today while on rounds in the intensive care unit. She continues on mechanical ventilation with Versed for sedation. Current ventilator settings are assist-control mode with respiratory rate of 24, tidal volume of 500, FiO2 of 45% and a PEEP of 5. She continues to have scant minimal output. Continues on dialysis per nephrology. Her hemoglobin today is 6.3, WBCs 30.1, BUN 22 creatinine is 1.16, AST 580, ALT 253, alkaline phosphatase 310. Sputum is growing Pseudomonas and [place]. She continues on IV steroids. His requiring small amounts of Levophed to maintain adequate blood pressures. ABGs from this morning is pH of 7.41, pCO2 40, pO2 70 , HCO3 25. Case discussed discussed with internal medicine Dr. Ballard, who is entertaining the idea of the possible trach and peg. He is also requesting a family meeting to be tomorrow morning as well. Patient's overall status and condition is discussed with bedside nurse directly. All labs and reports have been reviewed. Of note she will be receiving 2 more transfusions of packed red blood cells which while total 9 transfusions of RBCs 04/25/18- patient is being seen examined and evaluated today on rounds. Dr. KASIE Anderson did meet with the patient's family this morning and did discuss treatment options. The family at this time is unsure whether they would like to go forth with hospice or go for with possible trach and PEG placement. She continues on mechanical ventilation with versed for sedation. The patient's Versed was initially turned off this morning and deep to be put back on due to respirations in the 40s. Her neurological status has remained unchanged. She does have multiple consultants were working her up as well nearly added, Dr Juan, and Dr Youssef. Appreciate recommendations from all consultants. Her labs are reviewed from this morning her WBC has improved to 15.6, hemoglobin is 7.9, BUN is 30, creatinine is 1.03, AST 702, ALT 281, alkaline phosphatase 445, albumin 2.3. Blood gases from this morning pH of 7.42, pCO2 41 pO2 87 HCO3 26 were obtained on mechanical ventilation assist control mode with respiratory rate of 24, tidal volume of 500, FiO2 45 and a PEEP 5. Patient will also be getting another unit of packed red blood cells today. Case is discussed with the patient's direct care nurse. She currently is undergoing hemodialysis and continues to have scant minimal urine output Objective - Vital Signs Vital signs: Vital Signs Temp 98.1 F 04/25/18 10:33 Pulse 98 04/25/18 10:33 Resp 35 H 04/25/18 10:33 BP 83/58 04/25/18 10:33 Pulse Ox 100 04/25/18 10:23 Intake & Output 04/24/18 04/25/18 04/25/18 18:59 06:59 18:59 Intake Total 2899.467 1622.167 243.647 Output Total 4019 16 10 Balance -1265.281 5977.167 233.647 Weight 169.8 kg 164.8 kg Intake: IV 728 672 168 Sodium Chloride 0.9% 1, 650 600 150 000 ml @ 50 mls/hr IV . Q20H [facility] Rx#:[id number] pressure bag 78 72 18 Intake, IV Titration 85.467 299.167 24.647 Amount Meropenem 1 gm In Sodium 200 Chloride 0.9% 100 ml @ 200 mls/hr IVPB Q12HR [facility] Rx#:[id number] Midazolam HCl 100 mg In 85.467 99.167 0.833 Sodium Chloride 0.9% 80 ml @ 0.02 MG/KG/HR 3.46 mls/hr IV .Q24H [facility] Rx#: [id number] Norepinephrine 16 mg In 23.814 Sodium Chloride 0.9% 250 ml @ Titrate IV .Q0M [facility] Rx#:[id number] Tube Feeding 816 561 51 Blood Product 1240 0 Rc As-1 Unit 310 [id number] Rc As-1 Unit 0 [id number] Rc As-1 Unit 310 [id number] Other 30 90 Output: Urine 17 15 10 Stool 2 1 Other 4000 Other: Voiding Method Indwelling Catheter Indwelling Catheter Indwelling Catheter ABP, PAP, CO, CI - Last Documented Arterial Blood Pressure 103/59 - Exam GENERAL EXAM: On mechanical ventilation with versed for sedation HEAD: Normocephalic. EYES: Normal reaction of pupils, equal size. Conjunctivae jaundice NOSE: Clear with pink turbinates. THROAT: No erythema or exudates. NECK: No masses, no JVD. Short, thick CHEST: No chest wall deformity. LUNGS: Decreased breath sounds throughout, on mechanical ventilation CVS: S1 and S2 normal with no audible mumurs, regular rhythm. ABDOMEN: No hepatosplenomegaly, normal bowel sounds, no guarding or rigidity. EXTREMITIES: +2 bilateral lower extremity edema noted, pedal pulses palpable. Bilateral Gurwinder wraps, bolus wounds bilateral lower extremities CENTRAL NERVOUS SYSTEM: On mechanical ventilation with Versed for sedation. - Labs CBC & Chem 7: 04/25/18 04:01 04/25/18 04:01 Labs: Abnormal Lab Results - Last 24 Hours (Table) 04/23/18 04/24/18 04/24/18 Range/Units 07:43 04:20 06:45 WBC (3.8-10.6) k/uL RBC (3.80-5.40) m/uL Hgb (11.4-16.0) gm/dL Hct (34.0-46.0) % RDW (11.5-15.5) % Plt Count (150-450) k/uL Neutrophils # (Manual) (1.3-7.7) k/uL Metamyelocytes # (Man) (0) k/uL Myelocytes # (Manual) (0) k/uL Nucleated RBCs (0-0) /100 WBC Pathologist Review See comment A Retic Count 2.6 H (0.5-2.0) % ABG HCO3 (21-25) mmol/L ABG Total CO2 (19-24) mmol/L ABG O2 Saturation (94-97) % BUN (7-17) mg/dL Glucose (74-99) mg/dL POC Glucose (mg/dL) (75-99) mg/dL Calcium (8.4-10.2) mg/dL Total Bilirubin (0.2-1.3) mg/dL Conjugated Bilirubin (0.0-0.3) mg/dL Delta Bilirubin (0.0-0.2) mg/dL AST (14-36) U/L ALT (9-52) U/L Alkaline Phosphatase (38-126) U/L Total Protein (6.3-8.2) g/dL Albumin (3.5-5.0) g/dL Stool Occult Blood (Negative) Crossmatch See Detail 04/24/18 04/24/18 04/24/18 Range/Units 11:44 14:20 17:14 WBC (3.8-10.6) k/uL RBC (3.80-5.40) m/uL Hgb (11.4-16.0) gm/dL Hct (34.0-46.0) % RDW (11.5-15.5) % Plt Count (150-450) k/uL Neutrophils # (Manual) (1.3-7.7) k/uL Metamyelocytes # (Man) (0) k/uL Myelocytes # (Manual) (0) k/uL Nucleated RBCs (0-0) /100 WBC Pathologist Review Retic Count (0.5-2.0) % ABG HCO3 (21-25) mmol/L ABG Total CO2 (19-24) mmol/L ABG O2 Saturation (94-97) % BUN (7-17) mg/dL Glucose (74-99) mg/dL POC Glucose (mg/dL) 174 H 167 H (75-99) mg/dL Calcium (8.4-10.2) mg/dL Total Bilirubin 11.0 H (0.2-1.3) mg/dL Conjugated Bilirubin 8.7 H (0.0-0.3) mg/dL Delta Bilirubin 1.6 H (0.0-0.2) mg/dL AST (14-36) U/L ALT (9-52) U/L Alkaline Phosphatase (38-126) U/L Total Protein (6.3-8.2) g/dL Albumin (3.5-5.0) g/dL Stool Occult Blood (Negative) Crossmatch 04/24/18 04/24/18 04/24/18 Range/Units 18:55 20:14 23:19 WBC 34.3 H (3.8-10.6) k/uL RBC 2.85 L (3.80-5.40) m/uL Hgb 8.9 L D (11.4-16.0) gm/dL Hct 25.1 L (34.0-46.0) % RDW 16.3 H (11.5-15.5) % Plt Count 67 L (150-450) k/uL Neutrophils # (Manual) (1.3-7.7) k/uL Metamyelocytes # (Man) (0) k/uL Myelocytes # (Manual) (0) k/uL Nucleated RBCs (0-0) /100 WBC Pathologist Review Retic Count (0.5-2.0) % ABG HCO3 (21-25) mmol/L ABG Total CO2 (19-24) mmol/L ABG O2 Saturation (94-97) % BUN (7-17) mg/dL Glucose (74-99) mg/dL POC Glucose (mg/dL) 256 H 243 H (75-99) mg/dL Calcium (8.4-10.2) mg/dL Total Bilirubin (0.2-1.3) mg/dL Conjugated Bilirubin (0.0-0.3) mg/dL Delta Bilirubin (0.0-0.2) mg/dL AST (14-36) U/L ALT (9-52) U/L Alkaline Phosphatase (38-126) U/L Total Protein (6.3-8.2) g/dL Albumin (3.5-5.0) g/dL Stool Occult Blood (Negative) Crossmatch 04/25/18 04/25/18 04/25/18 Range/Units 03:15 03:59 04:01 WBC (3.8-10.6) k/uL RBC (3.80-5.40) m/uL Hgb (11.4-16.0) gm/dL Hct (34.0-46.0) % RDW (11.5-15.5) % Plt Count (150-450) k/uL Neutrophils # (Manual) (1.3-7.7) k/uL Metamyelocytes # (Man) (0) k/uL Myelocytes # (Manual) (0) k/uL Nucleated RBCs (0-0) /100 WBC Pathologist Review Retic Count (0.5-2.0) % ABG HCO3 (21-25) mmol/L ABG Total CO2 (19-24) mmol/L ABG O2 Saturation (94-97) % BUN 30 H (7-17) mg/dL Glucose 242 H (74-99) mg/dL POC Glucose (mg/dL) 265 H (75-99) mg/dL Calcium 6.6 L (8.4-10.2) mg/dL Total Bilirubin 10.2 H (0.2-1.3) mg/dL Conjugated Bilirubin (0.0-0.3) mg/dL Delta Bilirubin (0.0-0.2) mg/dL AST 702 H (14-36) U/L ALT 281 H (9-52) U/L Alkaline Phosphatase 445 H (38-126) U/L Total Protein 4.1 L (6.3-8.2) g/dL Albumin 2.3 L (3.5-5.0) g/dL Stool Occult Blood Positive H (Negative) Crossmatch 04/25/18 04/25/18 04/25/18 Range/Units 04:01 04:34 08:49 WBC 15.6 H (3.8-10.6) k/uL RBC 2.57 L (3.80-5.40) m/uL Hgb 7.9 L (11.4-16.0) gm/dL Hct 22.6 L (34.0-46.0) % RDW 16.4 H (11.5-15.5) % Plt Count 55 L (150-450) k/uL Neutrophils # (Manual) 12.00 H (1.3-7.7) k/uL Metamyelocytes # (Man) 0.78 H (0) k/uL Myelocytes # (Manual) 0.16 H (0) k/uL Nucleated RBCs 100 H (0-0) /100 WBC Pathologist Review Retic Count (0.5-2.0) % ABG HCO3 26 H (21-25) mmol/L ABG Total CO2 28 H (19-24) mmol/L ABG O2 Saturation 97.5 H (94-97) % BUN (7-17) mg/dL Glucose (74-99) mg/dL POC Glucose (mg/dL) 252 H (75-99) mg/dL Calcium (8.4-10.2) mg/dL Total Bilirubin (0.2-1.3) mg/dL Conjugated Bilirubin (0.0-0.3) mg/dL Delta Bilirubin (0.0-0.2) mg/dL AST (14-36) U/L ALT (9-52) U/L Alkaline Phosphatase (38-126) U/L Total Protein (6.3-8.2) g/dL Albumin (3.5-5.0) g/dL Stool Occult Blood (Negative) Crossmatch Microbiology - Last 24 Hours (Table) 04/24/18 10:50 Urine Culture - Preliminary Urine,Catheterized Assessment and Plan Assessment: Assessment Acute on chronic hypoxic respiratory failure Hypoventilation syndrome Possible central versus obstructive sleep apnea Sarcoidosis Chronic severe persistent asthma Acute on chronic renal failure on hemodialysis Morbid obesity Elevated liver enzymes Severe sepsis with septic shock related to UTI and a component of bilateral lower extremity cellulitis Possible shock liver Severe anemia of chronic disease and liver failure Pancytopenia Hemodynamically instability Metabolic encephalopathy Autoimmune disease primarily in the form of sarcoidosis Plan Continue on mechanical ventilation with Versed for sedation Medications have been reviewed and will be continued as ordered. IV steroid taper and antibiotics Vasopressors for hypotension wean as tolerated s/p total of 9 units of packed red blood cells this admission IV fluids as ordered Continue with pulmonary hygiene, coughing and deep breathing exercises, and supportive care. Supplemental oxygen to maintain oxygen saturations of 92% or better. Continue nebulizer treatments. Hemodialysis per nephrology GI and DVT prophylaxis. Collaborative care with internal medicine, nephrology, pulmonary, infectious disease, dairy technician, GI services, cardiology, vascular surgery, rheumatology, hematology and pain management, appreciate input and recommendations We will continue to monitor labs/results and adjust treatment as necessary. Further recommendations pending. Prognosis highly guarded I, the signing physician performed an examination of the patient, discussed and directed their management with the nurse practitioner. I have reviewed the nurse practitioner's note and agree with the documented findings, orders and plan of care.
[2018-04-25 12:34] LABS: Glucose,Whole Blood 203 mg/dL (75-99)
[2018-04-25] MEDS ORDERED: ACETYLCYSTEINE 6,000 MG/30 ML VIAL PO ONE (13:00)
[2018-04-25] MEDS: PETROLATUM, WHITE OINT 50 GM TUBE TOPICAL SCH (13:26)
[2018-04-25] MEDS: ZINC OXIDE 20% OINT 28.4 GM TUBE TOPICAL SCH ×2 (13:27)
--- NOTE | 2018-04-25 13:36 | P.PN ---
Subjective Progress Note Date: 04/25/18 Principal diagnosis: inappropriate Hgb response to transfusion, questioning hemolysis Pt seen in ICU, cont to be sedated and mechanically ventilated. Objective - Vital Signs Vital signs: Vital Signs Temp 97.5 F L 04/25/18 11:03 Pulse 118 H 04/25/18 13:20 Resp 24 04/25/18 13:00 BP 97/75 04/25/18 11:03 Pulse Ox 100 04/25/18 13:00 Intake & Output 04/24/18 04/25/18 04/25/18 18:59 06:59 18:59 Intake Total 2899.467 1622.167 414.047 Output Total 4019 16 30 Balance -1458.569 1126.167 384.047 Weight 169.8 kg 164.8 kg Intake: IV 728 672 336 Sodium Chloride 0.9% 1, 650 600 300 000 ml @ 50 mls/hr IV . Q20H [facility] Rx#:[id number] pressure bag 78 72 36 Intake, IV Titration 85.467 299.167 27.047 Amount Meropenem 1 gm In Sodium 200 Chloride 0.9% 100 ml @ 200 mls/hr IVPB Q12HR [facility] Rx#:[id number] Midazolam HCl 100 mg In 85.467 99.167 3.233 Sodium Chloride 0.9% 80 ml @ 0.02 MG/KG/HR 3.46 mls/hr IV .Q24H [facility] Rx#: [id number] Norepinephrine 16 mg In 23.814 Sodium Chloride 0.9% 250 ml @ Titrate IV .Q0M [facility] Rx#:[id number] Tube Feeding 816 561 51 Blood Product 1240 0 Rc As-1 Unit 310 [id number] Rc As-1 Unit 0 [id number] Rc As-1 Unit 310 [id number] Other 30 90 Output: Urine 17 15 30 Stool 2 1 Other 4000 Other: Voiding Method Indwelling Catheter Indwelling Catheter Indwelling Catheter ABP, PAP, CO, CI - Last Documented Arterial Blood Pressure 111/68 - Exam No respiratory or physical distress noted - Constitutional General appearance: Present: morbidly obese - EENT Eyes: Present: scleral icterus - Respiratory Respiratory: bilateral: diminished - Cardiovascular Details: anasarca, pitting, severe Rhythm: regular Heart sounds: normal: S1, S2 - Gastrointestinal General gastrointestinal: Present: normal bowel sounds, soft - Neurologic Neurologic: Absent: CNII-XII intact, focal deficits - Musculoskeletal Musculoskeletal: Absent: gait normal, generalized weakness, strength equal bilaterally, right sided weakness, left sided weakness - Psychiatric Psychiatric: Absent: A&O x's 3, appropriate affect, intact judgment & insight - Labs CBC & Chem 7: 04/25/18 04:01 04/25/18 04:01 Labs: Abnormal Lab Results - Last 24 Hours (Table) 04/23/18 04/24/18 04/24/18 Range/Units 07:43 04:20 06:45 WBC (3.8-10.6) k/uL RBC (3.80-5.40) m/uL Hgb (11.4-16.0) gm/dL Hct (34.0-46.0) % RDW (11.5-15.5) % Plt Count (150-450) k/uL Neutrophils # (Manual) (1.3-7.7) k/uL Metamyelocytes # (Man) (0) k/uL Myelocytes # (Manual) (0) k/uL Nucleated RBCs (0-0) /100 WBC Pathologist Review See comment A Retic Count 2.6 H (0.5-2.0) % ABG HCO3 (21-25) mmol/L ABG Total CO2 (19-24) mmol/L ABG O2 Saturation (94-97) % BUN (7-17) mg/dL Glucose (74-99) mg/dL POC Glucose (mg/dL) (75-99) mg/dL Calcium (8.4-10.2) mg/dL Total Bilirubin (0.2-1.3) mg/dL Conjugated Bilirubin (0.0-0.3) mg/dL Delta Bilirubin (0.0-0.2) mg/dL AST (14-36) U/L ALT (9-52) U/L Alkaline Phosphatase (38-126) U/L Total Protein (6.3-8.2) g/dL Albumin (3.5-5.0) g/dL Stool Occult Blood (Negative) Crossmatch See Detail 04/24/18 04/24/18 04/24/18 Range/Units 14:20 17:14 18:55 WBC 34.3 H (3.8-10.6) k/uL RBC 2.85 L (3.80-5.40) m/uL Hgb 8.9 L D (11.4-16.0) gm/dL Hct 25.1 L (34.0-46.0) % RDW 16.3 H (11.5-15.5) % Plt Count 67 L (150-450) k/uL Neutrophils # (Manual) (1.3-7.7) k/uL Metamyelocytes # (Man) (0) k/uL Myelocytes # (Manual) (0) k/uL Nucleated RBCs (0-0) /100 WBC Pathologist Review Retic Count (0.5-2.0) % ABG HCO3 (21-25) mmol/L ABG Total CO2 (19-24) mmol/L ABG O2 Saturation (94-97) % BUN (7-17) mg/dL Glucose (74-99) mg/dL POC Glucose (mg/dL) 167 H (75-99) mg/dL Calcium (8.4-10.2) mg/dL Total Bilirubin 11.0 H (0.2-1.3) mg/dL Conjugated Bilirubin 8.7 H (0.0-0.3) mg/dL Delta Bilirubin 1.6 H (0.0-0.2) mg/dL AST (14-36) U/L ALT (9-52) U/L Alkaline Phosphatase (38-126) U/L Total Protein (6.3-8.2) g/dL Albumin (3.5-5.0) g/dL Stool Occult Blood (Negative) Crossmatch 04/24/18 04/24/18 04/25/18 Range/Units 20:14 23:19 03:15 WBC (3.8-10.6) k/uL RBC (3.80-5.40) m/uL Hgb (11.4-16.0) gm/dL Hct (34.0-46.0) % RDW (11.5-15.5) % Plt Count (150-450) k/uL Neutrophils # (Manual) (1.3-7.7) k/uL Metamyelocytes # (Man) (0) k/uL Myelocytes # (Manual) (0) k/uL Nucleated RBCs (0-0) /100 WBC Pathologist Review Retic Count (0.5-2.0) % ABG HCO3 (21-25) mmol/L ABG Total CO2 (19-24) mmol/L ABG O2 Saturation (94-97) % BUN (7-17) mg/dL Glucose (74-99) mg/dL POC Glucose (mg/dL) 256 H 243 H (75-99) mg/dL Calcium (8.4-10.2) mg/dL Total Bilirubin (0.2-1.3) mg/dL Conjugated Bilirubin (0.0-0.3) mg/dL Delta Bilirubin (0.0-0.2) mg/dL AST (14-36) U/L ALT (9-52) U/L Alkaline Phosphatase (38-126) U/L Total Protein (6.3-8.2) g/dL Albumin (3.5-5.0) g/dL Stool Occult Blood Positive H (Negative) Crossmatch 04/25/18 04/25/18 04/25/18 Range/Units 03:59 04:01 04:01 WBC 15.6 H (3.8-10.6) k/uL RBC 2.57 L (3.80-5.40) m/uL Hgb 7.9 L (11.4-16.0) gm/dL Hct 22.6 L (34.0-46.0) % RDW 16.4 H (11.5-15.5) % Plt Count 55 L (150-450) k/uL Neutrophils # (Manual) 12.00 H (1.3-7.7) k/uL Metamyelocytes # (Man) 0.78 H (0) k/uL Myelocytes # (Manual) 0.16 H (0) k/uL Nucleated RBCs 100 H (0-0) /100 WBC Pathologist Review Retic Count (0.5-2.0) % ABG HCO3 (21-25) mmol/L ABG Total CO2 (19-24) mmol/L ABG O2 Saturation (94-97) % BUN 30 H (7-17) mg/dL Glucose 242 H (74-99) mg/dL POC Glucose (mg/dL) 265 H (75-99) mg/dL Calcium 6.6 L (8.4-10.2) mg/dL Total Bilirubin 10.2 H (0.2-1.3) mg/dL Conjugated Bilirubin (0.0-0.3) mg/dL Delta Bilirubin (0.0-0.2) mg/dL AST 702 H (14-36) U/L ALT 281 H (9-52) U/L Alkaline Phosphatase 445 H (38-126) U/L Total Protein 4.1 L (6.3-8.2) g/dL Albumin 2.3 L (3.5-5.0) g/dL Stool Occult Blood (Negative) Crossmatch 04/25/18 04/25/18 04/25/18 Range/Units 04:34 08:49 12:16 WBC (3.8-10.6) k/uL RBC (3.80-5.40) m/uL Hgb (11.4-16.0) gm/dL Hct (34.0-46.0) % RDW (11.5-15.5) % Plt Count (150-450) k/uL Neutrophils # (Manual) (1.3-7.7) k/uL Metamyelocytes # (Man) (0) k/uL Myelocytes # (Manual) (0) k/uL Nucleated RBCs (0-0) /100 WBC Pathologist Review Retic Count (0.5-2.0) % ABG HCO3 26 H (21-25) mmol/L ABG Total CO2 28 H (19-24) mmol/L ABG O2 Saturation 97.5 H (94-97) % BUN (7-17) mg/dL Glucose (74-99) mg/dL POC Glucose (mg/dL) 252 H 203 H (75-99) mg/dL Calcium (8.4-10.2) mg/dL Total Bilirubin (0.2-1.3) mg/dL Conjugated Bilirubin (0.0-0.3) mg/dL Delta Bilirubin (0.0-0.2) mg/dL AST (14-36) U/L ALT (9-52) U/L Alkaline Phosphatase (38-126) U/L Total Protein (6.3-8.2) g/dL Albumin (3.5-5.0) g/dL Stool Occult Blood (Negative) Crossmatch Microbiology - Last 24 Hours (Table) 04/24/18 10:50 Urine Culture - Preliminary Urine,Catheterized Yeast species Gram Neg Bacilli Assessment and Plan Plan: Suspicion hemolytic anemia: Work up is negative for hemolytic state (bilirubin is all conjugated, retic count not significantly elevated), also, TTP and DIC ruled out (coags, physical exam). Suspect anemia is r/t marrow suppression from overwhelming acute illness. There may be a component of marrow involvement with sarcoidosis, only a bone marrow biopsy could confirm that suspicion, but that too could contribute to the inability of that bone marrow to respond. Hgb responded to 2 units, 8.3 would be anticipated, pt is 7.9 currently. Multiple Specialty consults. Cont Pt on steroids, cont to transfuse PRN to keep Hgb around 7. CBC daily. Further work up will be considered based on hospital course.
--- NOTE | 2018-04-25 13:59 | P.PN ---
Subjective Progress Note Date: 04/25/18 This is 47 years old female with past medical history significant for sarcoidosis, morbid obesity, diabetes mellitus and multiple comorbidities, [place] of [place] who was recently discharged from [facility] presents today from [facility] with hypotension, slight tachycardia and hypoxia. In the emergency department blood pressure was below 90/60, heart rate in the 110 area, oxygen was in the mid 80s patient was started on oxygen and blood work showed elevated creatinine patient was sent to VQ scan which showed intermediate probability with limited examination due to motion factor and patient was started on heparin drip for assumption of pulmonary embolism. Patient is poor historian and unable to provide detailed information and was refusing care per nursing staff since admission to the floor including her medication and using her BiPAP on an as-needed basis. Patient currently is denying chest pain, shortness breath, nausea, vomiting, abdominal pain or productive cough 04/10: Received call today from the nursing staff the patient was really sick, blood pressure was low and was lethargic and sleeping well on BiPAP most the morning and lactic acid was elevated at 5.8 last evening.. She was unable to take her medications or eat this morning. She has increased edema. Patient has only had 150 mL of urine output overnight. She does have a Lopez catheter in. There was no IV access. Patient has been seen by by nephrology and cortisol level ordered along with Solu-Cortef and Lasix 60 mg IV once. Prednisone was discontinued. Patient was transferred into the intensive care unit and consult requested with Dr. Robin for intensive care management. Methadone dose changed to 50 mg daily which is her current dose at [facility]. Diarrhea has resolved. 04/11: Repeat chest x-ray reveals stable cardiomegaly. PICC placement. Patient has been seen by Dr. Colon and vancomycin and daptomycin started, continue Zosyn. Santyl to lower extremity cellulitis. Patient has been seen by Dr. Robin with concern for possible left lower lobe pneumonia, small left pleural effusion and dehydration. This morning, Dr. Moran ordered Lasix 40 mg IV once , IV dextrose 50% and regular insulin. Cortisol level was normal. Steroids are Solu-Medrol 60 mg every 6 hours. Midodrine was started yesterday for blood pressure support. Blood pressure is much improved today. Hemoglobin is 9.3, sodium 131 and potassium 5.3, creatinine 2.99. Capillary blood glucose running between 117 and 134. Lactic acid is now down to 1.9. Vancomycin level 25.6. Patient has been hemodynamically stable, afebrile. Patient has been on BiPAP and this morning is on nasal cannula, she remains lethargic but more alert from yesterday. Lopez catheter is in place. She continues to have lower extremity edema and now with weeping. No diarrhea. Patient has not had a bowel movement since 04/10. Urine output has been adequate at 50 mL per hour for the past 4 hours. She is complaining of nausea and abdominal discomfort for which lipase and CAT scan of the abdomen and pelvis ordered with oral contrast only. 04/12: Patient remains in intensive care unit. She has been hemodynamically stable and Midodrine will be discontinued. Lopez catheter remains in place with good urine output. She had a large bowel movement last evening and a small soft bowel movement today. Creatinine is 3.36 and BUN 17.. Heart rates have been elevated. Patient is more alert today from yesterday. GI consult added for elevated liver function tests and abdominal ultrasound ordered. 04/13: Cardiology consult was added yesterday due to tachycardia and patient was started on Lopressor 12.5 mg twice daily and hold for systolic blood pressure less than 90. TSH was 1.620. She has been on BiPAP during the night. Abdominal ultrasound reveals hepatomegaly correlate for hepatic steatosis, diffuse hepatocellular disease or hepatitis. There is ringing down artifact involving the gallbladder wall which can occasionally be seen with adenomyomatosis. Repeat liver function tests are increasing with total bilirubin 1.8, AST 82, ALT 54, alkaline phosphatase 278. GI is following. BUN 20 and creatinine 3.67, urine output low. She has epigastric tenderness and protonix added to omeprazole. Patient eating very little and refused nephro today. She is cleared to be transferred to Cardiac Step down. 04/14: Patient is more lethargic today. She is refusing to open her mouth. She has had no oral medications nor oral intake. Yesterday she ate a little bit of fluid and Magic cups. She is currently on BiPAP at FiO2 of 35%. Urine output by the time of evaluation was only 25-30 mL. Lasix 80 mg IV ordered by Dr. Moran. Patient may require hemodialysis if renal function does not improve. Today creatinine is at 3.99. Oral sodium bicarb will be switched over to drip. GI is following and has been asked to place Dobbhoff. Ammonia level came back normal at 18. Liver function tests are also worsening. 04/15: Patient is awake this morning on BiPAP. Very little communication but nods her head. She is complaining of nausea and abdominal pain. She had a bowel movement early this morning. Renal function is worse with creatinine of 4.9, hemoglobin 8.8. Nephrology has ordered consult with vascular for [place] catheter placement with plan for hemodialysis today, Tuesday and Tuesday. Urine output has been less than 200 mL over the past 24 hours. Patient to continue on sodium bicarb drip. Nephrology is added back in mid drain. Dobbhoff to be placed today. 04/16: Patient remains in the intensive care unit. She was started on Levophed this morning for blood pressure. She is still on BiPAP. [place] catheter was placed by Dr. Winter yesterday to the right groin but she did have blood loss and was advised to hold off on dialysis. This is improved with no further bleeding. She continues to have scant amount of urine output. Plan from nephrology is for dialysis today she was resumed back on admitted draining yesterday. Bicarb drip is to be discontinued once dialysis is started. Patient is sleeping but awakens to verbal stimuli. She is able to nod to answer questions. She has generalized anasarca. Noted that she has gained 20 kg since admission. She has not had Dobbhoff placed by GI 04/17: Patient is off norepinephrine. Dobbhoff may be placed tonight. She does have a new wound to the right posterior knee area. She also has a skin tear to the left arm. She is currently on antibiotics in form of daptomycin and Zosyn which will be continued. She is undergoing hemodialysis. Hemoglobin is 7.2 with BUN 27 creatinine 3.58. Liver enzymes remain elevated. Hepatitis B surface antibody is reactive at 74. 04/18: Patient will be undergoing hemodialysis this morning. She was placed back on norepinephrine drip last evening and has been intermittently for blood pressure systolic of 80. She is able to answer yes and no to questions. Liver function tests continued to rise. has recommended transfer to [facility] but patient is not candidate for biopsy. We have known in the past that the sister has been very resistant to her transferring out of [place] to [facility]. She now has an NG tube in place and receiving nephro that will be at goal liters today. Hepatitis B surface antibody was reactive at 74. There is concern that she is not been receiving methadone but this has been clarified by pain management that this can be crushed and put an NG tube which will be continued. White count is 14.8, hemoglobin 7.4, INR 1.5. BUN 20 creatinine 2.84 which is improved over the past couple days. AST 663, ALT 212, alkaline phosphatase 392. Total bilirubin is 4.9. Capillary blood glucose running between 130 and 166. We'll plan to monitor for at least another 24 hours and then discuss possible transfer with the family. Records reviewed from [facility]. 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 In 2016, PFT showed mild restriction with normal diffusion capacity. No response to bronchodilators. She had good response to Enbrel for 3 years but had to be stopped due to insurance company authorization. 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 She was not evaluated by neurosurgery and she had improvement of her mental status. MRI of the spine revealed fatty atrophy of the paraspinal musculature. No significant canal compromise or cord compression. Limited evaluation of right brachial plexus with no obvious abnormality. 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 Plan: wean prednisone down by 5 mg every week to end point of 20 mg, follow up with Dr. Gar[facility] April 25 at 1:15 and neurology follow-up with Dr. Garzon on April 03 at 9 AM. 04/19: Patient is more unresponsive today and remains on BiPAP and tachypneic. Patient was started on a Narcan drip last evening and was slightly more awake after this was started but then mental status declined. She was placed back on norepinephrine possibly related to clonidine patch. She is receiving 2 units of packed RBCs this morning for hemoglobin of 5.9. Dialysis was attempted this morning but due to hypotension this was not completed. She was started on a bicarb drip and nephrology adding an oral bicarb as well. Plan to attempt hemodialysis tomorrow. She has had scant urine output. She is tolerating tube feedings at goal. Limited echocardiogram revealed EF 60-65%, mild tricuspid regurgitation and moderate pulmonary hypertension. GI is recommending transfer to tertiary care center have PT/INR worsens. INR 1.6. AST 829, ALT 262, alkaline phosphatase 420, albumin 2.3. We did order 3 doses of albumin yesterday and will repeat today. Dr. Robin attempted a right IJ triple-lumen catheter and has been ordered for PICC line placement. CAT scan of the abdomen and pelvis without contrast showed fatty infiltration of the liver. Nonobstructive right renal calculi. Abdomen pelvis unchanged. Extensive subcutaneous edema bilaterally that is probably increased. No retroperitoneal hemorrhage. White count jumped to 28.7. Dr. Colon has discontinued daptomycin as treatment is completed for VRE UTI. Zosyn started for new left lower lobe infiltrate, possible aspiration she was vomiting yesterday. Cortisol level and ACTH will be checked in the morning 04/20: Patient was intubated last night. She is on levo at 8 mics. She is scheduled for hemodialysis today. She has had no urine output. She is currently off the Narcan drip and bicarb drip. Respiratory status appears more comfortable on the ventilator. She did have a right-sided IJ triple-lumen placed by Dr. Robin yesterday. Discussed with father, option of transfer to [facility] and he is undecided. He states that they are not going to do anything different than what transfer. Await further input from consultants. White count is 26.6, hemoglobin 7.9, platelet count 124, INR 1.8, BUN 20 creatinine 2.34. Total bilirubin 6.6, AST 840, ALT 289, alkaline phosphatase 395. Cortisol level came back at 41 and ACTH 5.19. 04/21: Patient undergoing dialysis today. Levo currently at 4 mics. She has received another unit of packed RBCs. Hemodialysis got off 500 mL yesterday. No plan for sedation holiday. Dr. Robin is following. Dr. Thompson discussed in detail the patient's current condition and prognosis with the patient's sister. Plan is to continue current treatment. 04/22: Patient was on levo fed at 4 mics needed to be increased to 10 while on hemodialysis. And it up getting 2 L off of with hemodialysis yesterday. She is on Solu-Medrol 60 mg IV every 6 hours it was started by Dr. KASIE Anderson. Blood sugars are running high and patient will be placed on Levemir 15 units daily. She is planned for a sedation holiday today. She is having liquid stools 2-3 per day and Reglan will be stopped. Triglyceride level will be checked as patient has been on propofol. Yesterday she did receive a dose of vitamin K for INR 1.5. Today creatinine is 1.48 with BUN of 16. Liver function tests are improving except for bilirubin continues to increase and currently at 7.1. AST 298, ALT 195 and alkaline phosphatase 430. Triglycerides came back at 915. Repeat chest x-ray shows bibasilar airspace disease. Improvement in patient' s findings status. 04/23: Level came back at 915 possibly related to propranolol. Nursing to update Dr. Robin regarding possibly changing to another agent for sedation. Patient was not able to tolerate a sedation holiday yesterday. She remains on ventilator with tidal volume 500 FiO2 60 and PEEP of 5. Patient is undergoing hemodialysis this morning. She continues to have very minimal urine output that is brown in color. Extremities have weeping wounds. Sclerae jaundiced. White count 33.2, hemoglobin 5.5 and platelet count is 88. BUN is 18 and creatinine 1.35. Blood sugars are running in the low 200s. PTT and PT are elevated and had to be sent to [facility] for testing. Dr. Robin to be notified. Patient did have hip antibody screen which came back negative on April 19. Patient is currently on norepinephrine at 11 mics. 04/24: IV sedation has been changed to Versed. Patient is on levo fed at 3 mics this morning. She was undergoing dialysis/SLED for the past 3 days. White count is now at 30.1, hemoglobin 6.3, platelet count at 70. BUN 22 and creatinine 1.16. Liver function tests remain elevated. LDH came back at 6098. INR is 1.1. IV albumin was ordered yesterday. Patient is on tube feedings and tolerating without any difficulty. Plan is to have a family meeting tomorrow regarding further determination on treatment or possibly comfort care. 04/25: Patient remains in the intensive care unit intubated and on mechanical ventilation. Patient is currently on norepinephrine at 5 mics. She is undergoing HD/SLED again today. Dr. Briceño has added and Mucomyst. Patient has extensive weeping to not only her legs and arms but now to her back with open wounds and blistering. Patient was decreased on Versed. Patient was not able to tolerate this was increased. Urine output is scant. Long discussion with patient's guardians: sister and father as well as patient's son regarding patient's current condition, multiple comorbidities and prognosis with option to either obtain trach and PEG or comfort care. They will discuss and make a decision. Review Of Systems: Intubated and on mechanical ventilation Objective - Vital Signs Vital signs: Vital Signs Temp 97.5 F L 04/25/18 04:00 Pulse 94 04/25/18 07:55 Resp 28 H 04/25/18 07:00 BP 116/71 04/24/18 12:45 Pulse Ox 99 04/25/18 07:00 Intake & Output 04/24/18 04/25/18 04/25/18 18:59 06:59 18:59 Intake Total 2899.467 1622.167 Output Total 4019 16 Balance -4291.154 5555.167 Weight 169.8 kg 164.8 kg Intake: IV 728 672 Sodium Chloride 0.9% 1, 650 600 000 ml @ 50 mls/hr IV . Q20H [facility] Rx#:[id number] pressure bag 78 72 Intake, IV Titration 85.467 299.167 Amount Meropenem 1 gm In Sodium 200 Chloride 0.9% 100 ml @ 200 mls/hr IVPB Q12HR L[facility] Rx#:[id number] Midazolam HCl 100 mg In 85.467 99.167 Sodium Chloride 0.9% 80 ml @ 0.02 MG/KG/HR 3.46 mls/hr IV .Q24H [facility]LIE Rx#: [id number] Tube Feeding 816 561 Blood Product 1240 As-1 Unit 310 [id number] Rc As-1 Unit 310 [id number] Other 30 90 Output: Urine 17 15 Stool 2 1 Other 4000 Other: Voiding Method Indwelling Catheter Indwelling Catheter ABP, PAP, CO, CI - Last Documented Arterial Blood Pressure 100/60 - Exam Gen: This is a morbidly obese 47-year-old female. She is in ICU bed intubated and on mechanical ventilation, undergoing HD. Patient appears to be comfortable. No change in condition. HEENT: Head is atraumatic, normocephalic. Pupils equal, round. Sclerae is icteric. Oral ET and NG tube in place NECK: Supple. No JVD. No lymphadenopathy. No thyromegaly. LUNGS: Diminished bilaterally. Clear to auscultation. No wheezes or rhonchi. No intercostal retractions. HEART: Regular rate and rhythm. No murmur. ABDOMEN: Morbidly obese. Generalized anasarca Soft. Bowel sounds are present. No masses. Positive epigastric tenderness. Lopez catheter draining clear benjy urine, scant amount. EXTREMITIES: 2-3+ pedal edema with serous weeping severe to lower extremities. No calf tenderness. +wound posterior bilateral lower extremities, groins, bilateral arms. NEUROLOGICAL: Patient is sedated. - Labs CBC & Chem 7: 04/25/18 04:01 04/25/18 04:01 Labs: Abnormal Lab Results - Last 24 Hours (Table) 04/23/18 04/24/18 04/24/18 Range/Units 07:43 04:20 06:45 WBC (3.8-10.6) k/uL RBC (3.80-5.40) m/uL Hgb (11.4-16.0) gm/dL Hct (34.0-46.0) % RDW (11.5-15.5) % Plt Count (150-450) k/uL Neutrophils # (Manual) (1.3-7.7) k/uL Metamyelocytes # (Man) (0) k/uL Myelocytes # (Manual) (0) k/uL Nucleated RBCs (0-0) /100 WBC Pathologist Review See comment A Retic Count 2.6 H (0.5-2.0) % ABG HCO3 (21-25) mmol/L ABG Total CO2 (19-24) mmol/L ABG O2 Saturation (94-97) % BUN (7-17) mg/dL Glucose (74-99) mg/dL POC Glucose (mg/dL) (75-99) mg/dL Calcium (8.4-10.2) mg/dL Total Bilirubin (0.2-1.3) mg/dL Conjugated Bilirubin (0.0-0.3) mg/dL Delta Bilirubin (0.0-0.2) mg/dL AST (14-36) U/L ALT (9-52) U/L Alkaline Phosphatase (38-126) U/L Total Protein (6.3-8.2) g/dL Albumin (3.5-5.0) g/dL Stool Occult Blood (Negative) Crossmatch See Detail 04/24/18 04/24/18 04/24/18 Range/Units 11:44 14:20 17:14 WBC (3.8-10.6) k/uL RBC (3.80-5.40) m/uL Hgb (11.4-16.0) gm/dL Hct (34.0-46.0) % RDW (11.5-15.5) % Plt Count (150-450) k/uL Neutrophils # (Manual) (1.3-7.7) k/uL Metamyelocytes # (Man) (0) k/uL Myelocytes # (Manual) (0) k/uL Nucleated RBCs (0-0) /100 WBC Pathologist Review Retic Count (0.5-2.0) % ABG HCO3 (21-25) mmol/L ABG Total CO2 (19-24) mmol/L ABG O2 Saturation (94-97) % BUN (7-17) mg/dL Glucose (74-99) mg/dL POC Glucose (mg/dL) 174 H 167 H (75-99) mg/dL Calcium (8.4-10.2) mg/dL Total Bilirubin 11.0 H (0.2-1.3) mg/dL Conjugated Bilirubin 8.7 H (0.0-0.3) mg/dL Delta Bilirubin 1.6 H (0.0-0.2) mg/dL AST (14-36) U/L ALT (9-52) U/L Alkaline Phosphatase (38-126) U/L Total Protein (6.3-8.2) g/dL Albumin (3.5-5.0) g/dL Stool Occult Blood (Negative) Crossmatch 04/24/18 04/24/18 04/24/18 Range/Units 18:55 20:14 23:19 WBC 34.3 H (3.8-10.6) k/uL RBC 2.85 L (3.80-5.40) m/uL Hgb 8.9 L D (11.4-16.0) gm/dL Hct 25.1 L (34.0-46.0) % RDW 16.3 H (11.5-15.5) % Plt Count 67 L (150-450) k/uL Neutrophils # (Manual) (1.3-7.7) k/uL Metamyelocytes # (Man) (0) k/uL Myelocytes # (Manual) (0) k/uL Nucleated RBCs (0-0) /100 WBC Pathologist Review Retic Count (0.5-2.0) % ABG HCO3 (21-25) mmol/L ABG Total CO2 (19-24) mmol/L ABG O2 Saturation (94-97) % BUN (7-17) mg/dL Glucose (74-99) mg/dL POC Glucose (mg/dL) 256 H 243 H (75-99) mg/dL Calcium (8.4-10.2) mg/dL Total Bilirubin (0.2-1.3) mg/dL Conjugated Bilirubin (0.0-0.3) mg/dL Delta Bilirubin (0.0-0.2) mg/dL AST (14-36) U/L ALT (9-52) U/L Alkaline Phosphatase (38-126) U/L Total Protein (6.3-8.2) g/dL Albumin (3.5-5.0) g/dL Stool Occult Blood (Negative) Crossmatch 04/25/18 04/25/18 04/25/18 Range/Units 03:15 03:59 04:01 WBC (3.8-10.6) k/uL RBC (3.80-5.40) m/uL Hgb (11.4-16.0) gm/dL Hct (34.0-46.0) % RDW (11.5-15.5) % Plt Count (150-450) k/uL Neutrophils # (Manual) (1.3-7.7) k/uL Metamyelocytes # (Man) (0) k/uL Myelocytes # (Manual) (0) k/uL Nucleated RBCs (0-0) /100 WBC Pathologist Review Retic Count (0.5-2.0) % ABG HCO3 (21-25) mmol/L ABG Total CO2 (19-24) mmol/L ABG O2 Saturation (94-97) % BUN 30 H (7-17) mg/dL Glucose 242 H (74-99) mg/dL POC Glucose (mg/dL) 265 H (75-99) mg/dL Calcium 6.6 L (8.4-10.2) mg/dL Total Bilirubin 10.2 H (0.2-1.3) mg/dL Conjugated Bilirubin (0.0-0.3) mg/dL Delta Bilirubin (0.0-0.2) mg/dL AST 702 H (14-36) U/L ALT 281 H (9-52) U/L Alkaline Phosphatase 445 H (38-126) U/L Total Protein 4.1 L (6.3-8.2) g/dL Albumin 2.3 L (3.5-5.0) g/dL Stool Occult Blood Positive H (Negative) Crossmatch 04/25/18 04/25/18 Range/Units 04:01 04:34 WBC 15.6 H (3.8-10.6) k/uL RBC 2.57 L (3.80-5.40) m/uL Hgb 7.9 L (11.4-16.0) gm/dL Hct 22.6 L (34.0-46.0) % RDW 16.4 H (11.5-15.5) % Plt Count 55 L (150-450) k/uL Neutrophils # (Manual) 12.00 H (1.3-7.7) k/uL Metamyelocytes # (Man) 0.78 H (0) k/uL Myelocytes # (Manual) 0.16 H (0) k/uL Nucleated RBCs 100 H (0-0) /100 WBC Pathologist Review Retic Count (0.5-2.0) % ABG HCO3 26 H (21-25) mmol/L ABG Total CO2 28 H (19-24) mmol/L ABG O2 Saturation 97.5 H (94-97) % BUN (7-17) mg/dL Glucose (74-99) mg/dL POC Glucose (mg/dL) (75-99) mg/dL Calcium (8.4-10.2) mg/dL Total Bilirubin (0.2-1.3) mg/dL Conjugated Bilirubin (0.0-0.3) mg/dL Delta Bilirubin (0.0-0.2) mg/dL AST (14-36) U/L ALT (9-52) U/L Alkaline Phosphatase (38-126) U/L Total Protein (6.3-8.2) g/dL Albumin (3.5-5.0) g/dL Stool Occult Blood (Negative) Crossmatch Microbiology - Last 24 Hours (Table) 04/24/18 10:50 Urine Culture - Preliminary Urine,Catheterized Assessment and Plan Plan: 1. Sepsis with septic shock secondary to urinary tract infection with lactic acidosis. Intensive care unit management. PICC line ordered for IV access. Consults with Dr. Robin and Dr. Colon appreciated. Patient completed course of daptomycin. IVF per Dr. Moran 2. Intermediate probability of pulmonary embolism ruled out. Pulmonary medicine is following 3. Acute respiratory failure on chronic respiratory failure with hypoxia. Continue albuterol nebulizer treatments every 6 hours, DuoNeb treatments every 4 hours as needed, Pulmicort twice daily, Solu-Medrol. Intubated and on mechanical ventilation management by Dr. Robin 4. Morbid obesity with BMI of 59. 5. Neurogenic bladder with incontinence. Urinary retention requiring Lopez catheter placement. 6. Diabetes mellitus type 2 insulin-dependent. Metformin on hold. NovoLog scale before meals and at bedtime. 7. Debility and deconditioning. 8. Dehydration. 9. Acute kidney injury and ATN likely secondary to dehydration with hyperkalemia. Consult with nephrology appreciated. [place] catheter has been placed by Dr. Winter. Patient on hemodialysis, 10. 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 11. Hyperkalemia 12. Metabolic encephalopathy secondary to sepsis, respiratory failure, liver failure. 13. Chronic pain. Methadone discontinued and patient was placed on Narcan drip. 14. Abdominal pain with worsening liver function tests mostly secondary to heart failure and congestion. 15. Severe protein calorie malnutrition. NG tube feedings. Dietitian is following. Albumin IV ordered. 16. Metabolic acidosis. Sodium bicarb oral and IV. 17. GERD and possible gastritis. Continue Pepcid and Protonix 18. Aspiration pneumonia. Continue Zosyn. Dr. Colon is following. 19. Multiorgan failure with respiratory, renal and liver failure. 20. Full body anasarca with weeping, large vesicles that are breaking open with open wounds across her back and upper and lower extremities. CODE STATUS: Full code Prognosis poor Discharge plan: Return to [facility] as long-term resident. Patient is known to have guardian. (Sister and father). Patient may be candidate for hospice in the near future. Family meeting tomorrow/ Impression and plan of care have been directed as dictated by the signing physician. Jeanne Roca nurse practitioner acting as scribe for signing physician.
[2018-04-25] MEDS ORDERED: MORPHINE SULFATE 4 MG/ML SYRINGE IVP ONE (14:06)
[2018-04-25 17:01] LABS: Glucose,Whole Blood 260 mg/dL (75-99)
[2018-04-25] MEDS: ACETYLCYSTEINE 6,000 MG/30 ML VIAL NG-TUBE SCH ×2 (17:14→20:53)
[2018-04-25 20:33] LABS: Glucose,Whole Blood 219 mg/dL (75-99)
[2018-04-25] MEDS: SODIUM CHLORIDE 0.9% 1,000 ML IV SCH (20:39)
--- NOTE | 2018-04-25 21:03 | PN ---
PROGRESS NOTE Patient is seen for followup for acute kidney injury. She remains oliguric and is currently seen on the SLED procedure, tolerating her treatment fairly well. The Levophed was up to about 4 mcg. We had 4 L of ultrafiltration yesterday. We are trying for another 3-4 L today. The patient remains on the vent. There was no evidence of schistocytes to suggest underlying TTP. PHYSICAL EXAMINATION: Blood pressure this morning was 101/77, heart rate is 90 per minute. Patient is afebrile. Examination of the heart: S1, S2. Examination of the lungs: Bilateral breath sounds are heard. Abdomen is soft, morbidly obese. Examination lower extremities shows 4+ edema with weeping of the skin noted and blistering. LABS: Show hemoglobin 7.9 g/dL, sodium 140, potassium 4.4, BUN 30, serum creatinine 1.03, total bilirubin 10.2. ASSESSMENT: 1. Acute kidney injury, acute tubular necrosis, currently severely oliguric, maintained on daily dialysis, mainly SLED procedure, mainly for volume overload, tolerating treatment fairly well. 2. Severe volume overload, slowly improving. 3. Hypokalemia, hypophosphatemia, now improved. 4. Vent dependent respiratory failure secondary to hypoxic respiratory failure. 5. History of sarcoidosis, currently maintained on IV steroids. 6. Anemia with evidence of gastrointestinal bleed this morning. The patient had a dark stool and she has not had any further bowel movements. She is being transfused packed RBCs. 7. Urinary tract infection. Urine culture grew Enterococcus faecium which was VRE and yeast species on recent the urine culture. 8. Pneumonia with sputum culture growing Pseudomonas. PLAN: Continue daily dialysis. Try to continue to maintain UF of about 3 L daily. MMODL / IJN: [id number] /
[2018-04-25 21:54] LABS: Anisocytosis Slight; HCT 25.6 % (34.0-46.0); HGB 8.9 gm/dL (11.4-16.0); MCH 31.4 pg (25.0-35.0); MCV 89.9 fL (80.0-100.0); Mean Platelet Volume 10.6; Poikilocytosis Slight; RBC 2.84 m/uL (3.80-5.40); RDW 17.7 % (11.5-15.5)
[2018-04-25 22:00] LABS: Platelet Count 59 k/uL (150-450)
[2018-04-25 22:03] LABS: Calcium 6.5 mg/dL (8.4-10.2)
[2018-04-25 22:39] LABS: Band Neutrophils % 5 %; Lymphocytes # (M) 2.57 k/uL (1.0-4.8); Metamyelocytes # (M) 0.59 k/uL (0); Metamyelocytes % 3 %; Monocytes # (M) 1.78 k/uL (0-1.0); Neutrophils % (M) 70 %; Nucleated Red Blood Cells 72 /100 WBC (0-0); Total Cells Counted 200; WBC 19.8 k/uL (3.8-10.6)
[2018-04-25 22:40] LABS: Polychromasia Present
[2018-04-25 22:41] LABS: Target Cells Present; Toxic Granulation Present
[2018-04-25 22:54] LABS: Magnesium 2.2 mg/dL (1.6-2.3); Phosphorus 3.3 mg/dL (2.5-4.5)
--- NOTE | 2018-04-25 22:54 | PN ---
PROGRESS NOTE DATE OF SERVICE: 04/25/2018. REASON FOR FOLLOW UP: 1. Pseudomonas aeruginosa pneumonia. 2. Multiple wounds on the back and leg area. INTERVAL HISTORY: The patient is currently afebrile. She is hemodynamically stable. FIO2 is currently stable. She has been tolerating her tube feeds. No significant diarrhea has been noted. She noted to have multiple wounds on her left leg. After those, has ruptured. EXAMINATION: Her blood pressure is 110/67 with a pulse of 71, temperature 98.5, she is 95% on 45% FiO2. General description is a middle-aged female lying in bed in no distress. Respiratory system: Unlabored breathing. Clear to auscultation anteriorly. Heart S1, S2. Regular rate and rhythm. ABDOMEN: Soft, no tenderness. Left leg with multiple superficial ulcerations, on the back area but no definite cellulitis. LABS: Hemoglobin 7.9, white count down to 15.6, BUN of 30, creatinine 1.3. DIAGNOSTIC IMPRESSION/PLAN: 1. Patient with acute respiratory failure which is likely multifactorial in this patient who did have a component of pneumonia, sputum has been Pseudomonas aeruginosa. The patient is currently on meropenem. We will continue to finish course of therapy. 2. Patient with possible oropharyngeal candidiasis with elevated white count responded to the addition of Diflucan yesterday that will be continued. 3. Multiple wounds with left leg and to the sacral area. Local care with Aquacel Silver dressing was explained in detail to the RN. 4. Bilateral groin nystatin powder twice a day. MMODL / IJN: [id number] /
[2018-04-26 00:15] LABS: Glucose,Whole Blood 168 mg/dL (75-99)
--- NOTE | 2018-04-26 01:17 | P.PN ---
Subjective Progress Note Date: 04/25/18 Principal diagnosis: Elevated liver enzymes, anemia with positive stool for occult blood Intubated and sedated, unable to provide any further history due to this condition. Per the nursing staff patient did have a dark bowel movement and some rust colored output from NG tube. Objective - Vital Signs Vital signs: Vital Signs Temp 98.5 F 04/25/18 20:00 Pulse 96 04/25/18 22:00 Resp 26 H 04/25/18 22:00 BP 107/53 04/25/18 12:30 Pulse Ox 97 04/25/18 22:00 Intake & Output 04/25/18 04/25/18 04/26/18 06:59 18:59 06:59 Intake Total 6908.515 8882.906 224 Output Total 16 140 700 Balance 1606.167 951.906 -476 Weight 164.8 kg Intake: IV 672 672 224 Sodium Chloride 0.9% 1, 600 600 200 000 ml @ 50 mls/hr IV . Q20H [facility] Rx#:[id number] pressure bag 72 72 24 Intake, IV Titration 299.167 58.906 Amount Meropenem 1 gm In Sodium 200 Chloride 0.9% 100 ml @ 200 mls/hr IVPB Q12HR [facility] Rx#:[id number] Midazolam HCl 100 mg In 99.167 6.683 Sodium Chloride 0.9% 80 ml @ 0.02 MG/KG/HR 3.46 mls/hr IV .Q24H [facility] Rx#: [id number] Norepinephrine 16 mg In 52.223 Sodium Chloride 0.9% 250 ml @ Titrate IV .Q0M [facility] Rx#:[id number] Tube Feeding 561 51 Blood Product 310 Rc As-1 Unit 310 [id number] Other 90 Output: Gastric Drainage 100 Urine 15 40 0 Stool 1 700 Other: Voiding Method Indwelling Catheter Indwelling Catheter ABP, PAP, CO, CI - Last Documented Arterial Blood Pressure 132/74 - Exam On physical examination, no apparent distress. HEAD: Normocephalic, atraumatic. EYES: No scleral icterus. No conjunctival injection. MOUTH: No lesions, tongue midline, with ET tube in place. NECK: Trachea midline, no gross abnormalities. CHEST: Coarse respiratory sounds secondary to mechanical ventilation. HEART: Regular rate and rhythm. ABDOMEN: Soft, obese. Bowel sounds are positive. No organomegaly. No guarding or rigidity. EXTREMITIES: No pedal edema. SKIN: No rashes, bullous changes on lower extremity. NEUROLOGIC: Intubated and sedated. - Labs CBC & Chem 7: 04/25/18 21:10 04/25/18 21:10 Labs: Abnormal Lab Results - Last 24 Hours (Table) 04/24/18 04/24/18 04/25/18 Range/Units 06:45 23:19 03:15 WBC (3.8-10.6) k/uL RBC (3.80-5.40) m/uL Hgb (11.4-16.0) gm/dL Hct (34.0-46.0) % RDW (11.5-15.5) % Plt Count (150-450) k/uL Neutrophils # (Manual) (1.3-7.7) k/uL Monocytes # (Manual) (0-1.0) k/uL Metamyelocytes # (Man) (0) k/uL Myelocytes # (Manual) (0) k/uL Nucleated RBCs (0-0) /100 WBC ABG HCO3 (21-25) mmol/L ABG Total CO2 (19-24) mmol/L ABG O2 Saturation (94-97) % BUN (7-17) mg/dL Glucose (74-99) mg/dL POC Glucose (mg/dL) 243 H (75-99) mg/dL Calcium (8.4-10.2) mg/dL Total Bilirubin (0.2-1.3) mg/dL AST (14-36) U/L ALT (9-52) U/L Alkaline Phosphatase (38-126) U/L Total Protein (6.3-8.2) g/dL Albumin (3.5-5.0) g/dL Stool Occult Blood Positive H (Negative) Crossmatch See Detail 04/25/18 04/25/18 04/25/18 Range/Units 03:59 04:01 04:01 WBC 15.6 H (3.8-10.6) k/uL RBC 2.57 L (3.80-5.40) m/uL Hgb 7.9 L (11.4-16.0) gm/dL Hct 22.6 L (34.0-46.0) % RDW 16.4 H (11.5-15.5) % Plt Count 55 L (150-450) k/uL Neutrophils # (Manual) 12.00 H (1.3-7.7) k/uL Monocytes # (Manual) (0-1.0) k/uL Metamyelocytes # (Man) 0.78 H (0) k/uL Myelocytes # (Manual) 0.16 H (0) k/uL Nucleated RBCs 100 H (0-0) /100 WBC ABG HCO3 (21-25) mmol/L ABG Total CO2 (19-24) mmol/L ABG O2 Saturation (94-97) % BUN 30 H (7-17) mg/dL Glucose 242 H (74-99) mg/dL POC Glucose (mg/dL) 265 H (75-99) mg/dL Calcium 6.6 L (8.4-10.2) mg/dL Total Bilirubin 10.2 H (0.2-1.3) mg/dL AST 702 H (14-36) U/L ALT 281 H (9-52) U/L Alkaline Phosphatase 445 H (38-126) U/L Total Protein 4.1 L (6.3-8.2) g/dL Albumin 2.3 L (3.5-5.0) g/dL Stool Occult Blood (Negative) Crossmatch 04/25/18 04/25/18 04/25/18 Range/Units 04:34 08:49 12:16 WBC (3.8-10.6) k/uL RBC (3.80-5.40) m/uL Hgb (11.4-16.0) gm/dL Hct (34.0-46.0) % RDW (11.5-15.5) % Plt Count (150-450) k/uL Neutrophils # (Manual) (1.3-7.7) k/uL Monocytes # (Manual) (0-1.0) k/uL Metamyelocytes # (Man) (0) k/uL Myelocytes # (Manual) (0) k/uL Nucleated RBCs (0-0) /100 WBC ABG HCO3 26 H (21-25) mmol/L ABG Total CO2 28 H (19-24) mmol/L ABG O2 Saturation 97.5 H (94-97) % BUN (7-17) mg/dL Glucose (74-99) mg/dL POC Glucose (mg/dL) 252 H 203 H (75-99) mg/dL Calcium (8.4-10.2) mg/dL Total Bilirubin (0.2-1.3) mg/dL AST (14-36) U/L ALT (9-52) U/L Alkaline Phosphatase (38-126) U/L Total Protein (6.3-8.2) g/dL Albumin (3.5-5.0) g/dL Stool Occult Blood (Negative) Crossmatch 04/25/18 04/25/18 04/25/18 Range/Units 16:50 20:22 21:10 WBC (3.8-10.6) k/uL RBC (3.80-5.40) m/uL Hgb (11.4-16.0) gm/dL Hct (34.0-46.0) % RDW (11.5-15.5) % Plt Count (150-450) k/uL Neutrophils # (Manual) (1.3-7.7) k/uL Monocytes # (Manual) (0-1.0) k/uL Metamyelocytes # (Man) (0) k/uL Myelocytes # (Manual) (0) k/uL Nucleated RBCs (0-0) /100 WBC ABG HCO3 (21-25) mmol/L ABG Total CO2 (19-24) mmol/L ABG O2 Saturation (94-97) % BUN 34 H (7-17) mg/dL Glucose 190 H (74-99) mg/dL POC Glucose (mg/dL) 260 H 219 H (75-99) mg/dL Calcium 6.5 L (8.4-10.2) mg/dL Total Bilirubin (0.2-1.3) mg/dL AST (14-36) U/L ALT (9-52) U/L Alkaline Phosphatase (38-126) U/L Total Protein (6.3-8.2) g/dL Albumin (3.5-5.0) g/dL Stool Occult Blood (Negative) Crossmatch 04/25/18 Range/Units 21:10 WBC 19.8 H (3.8-10.6) k/uL RBC 2.84 L (3.80-5.40) m/uL Hgb 8.9 L (11.4-16.0) gm/dL Hct 25.6 L (34.0-46.0) % RDW 17.7 H (11.5-15.5) % Plt Count 59 L (150-450) k/uL Neutrophils # (Manual) 14.80 H (1.3-7.7) k/uL Monocytes # (Manual) 1.78 H (0-1.0) k/uL Metamyelocytes # (Man) 0.59 H (0) k/uL Myelocytes # (Manual) (0) k/uL Nucleated RBCs 72 H (0-0) /100 WBC ABG HCO3 (21-25) mmol/L ABG Total CO2 (19-24) mmol/L ABG O2 Saturation (94-97) % BUN (7-17) mg/dL Glucose (74-99) mg/dL POC Glucose (mg/dL) (75-99) mg/dL Calcium (8.4-10.2) mg/dL Total Bilirubin (0.2-1.3) mg/dL AST (14-36) U/L ALT (9-52) U/L Alkaline Phosphatase (38-126) U/L Total Protein (6.3-8.2) g/dL Albumin (3.5-5.0) g/dL Stool Occult Blood (Negative) Crossmatch Microbiology - Last 24 Hours (Table) 04/24/18 10:50 Urine Culture - Preliminary Urine,Catheterized Yeast species Gram Neg Bacilli Assessment and Plan (1) Elevated liver enzymes Narrative/Plan: Both cholestatic and hepatocellular with etiology likely multifactorial given her hypotension/hypoperfusion, multiple medications which could be related to drug-induced liver injury, and underlying sarcoidosis. Liver enzymes were normal on presentation and has subsequently trended up as well as a negative serologic workup, arguing against underlying chronic liver disease. Current Visit: Yes Status: Acute Code(s): R74.8 - ABNORMAL LEVELS OF OTHER SERUM ENZYMES SNOMED Code(s): 801405886 (2) Anemia Narrative/Plan: Likely multiple multifactorial secondary to anemia of chronic disease, as well as reports from nursing of dark stool and was-colored output from NG raising the possibility of GI bleed. Currently on appropriate GI prophylaxis. Current Visit: Yes Status: Acute Code(s): D64.9 - ANEMIA, UNSPECIFIED SNOMED Code(s): 894907454 Plan: Supportive care Continue NG tube feeds, if patient needs more permanent solution for feeding is unlikely that a PEG tube can be placed due to the patient's body habitus and would suggest surgical placement of feeding tube Continue to monitor liver enzymes Have empirically started N-acetylcysteine given possibility of drug-induced liver injury Patient's multiple medical comorbidities and body habitus prohibits the possibility of liver transplant, and she should continue to be treated empirically for comorbidities Continue other management of respiratory failure, kidney failure and other acute problems Serologic liver disease workup ordered and has been negative We'll continue to monitor Thank you for allowing us to participate in the care of this patient
[2018-04-26] MEDS: INSULIN ASPART 100 UNIT/ML 1 ML 10 ML VIAL SQ SCH ×6 (01:20→20:19)
[2018-04-26] MEDS: ACETYLCYSTEINE 6,000 MG/30 ML VIAL NG-TUBE SCH ×6 (01:21→21:29)
[2018-04-26] MEDS: methylPREDNISolone SOD SUCCI 125 MG/2 ML VIAL IV SCH ×3 (01:21→17:51)
[2018-04-26 04:10] LABS: Glucose,Whole Blood 136 mg/dL (75-99)
[2018-04-26 04:35] LABS: ABG Base Excess -4.3 mmol/L; ABG HCO3 21 mmol/L (21-25); ABG Oxygen Saturation 98.7 % (94-97); ABG PCO2 38 mmHg (35-45); ABG PH 7.35 (7.35-7.45); ABG PO2 114 mmHg (83-108); ABG TCO2 23 mmol/L (19-24)
[2018-04-26 04:47] LABS: Anisocytosis Slight; HCT 21.2 % (34.0-46.0); HGB 7.6 gm/dL (11.4-16.0); MCH 32.3 pg (25.0-35.0); MCHC 35.9 g/dL (31.0-37.0); Mean Platelet Volume 10.8; Poikilocytosis Slight; RBC 2.35 m/uL (3.80-5.40); RDW 17.7 % (11.5-15.5)
[2018-04-26 04:49] LABS: Platelet Count 54 k/uL (150-450)
[2018-04-26 05:02] LABS: Albumin 2.1 g/dL (3.5-5.0); Calcium 6.5 mg/dL (8.4-10.2); Magnesium 2.2 mg/dL (1.6-2.3); Phosphorus 3.8 mg/dL (2.5-4.5); Potassium 4.4 mmol/L (3.5-5.1); Total Bilirubin 12.1 mg/dL (0.2-1.3); Total Protein 4.2 g/dL (6.3-8.2)
[2018-04-26 05:11] LABS: Band Neutrophils % 19 %; Lymphocytes # (M) 2.36 k/uL (1.0-4.8); Monocytes # (M) 0.16 k/uL (0-1.0); Neutrophils % (M) 65 %; Nucleated Red Blood Cells 79 /100 WBC (0-0); Total Cells Counted 200; WBC 15.7 k/uL (3.8-10.6)
[2018-04-26 05:12] LABS: Polychromasia Present
[2018-04-26] MEDS: ALBUTEROL NEBULIZED 2.5 MG/3 ML INHALATION SCH ×3 (07:04→19:00)
[2018-04-26] MEDS: BUDESONIDE 0.5 MG/2 ML NEBU INHALATION SCH ×2 (07:04→19:00)
[2018-04-26] MEDS: MIDODRINE 5 MG TAB PO SCH ×3 (08:07→18:00)
[2018-04-26] MEDS: PANTOPRAZOLE 40 MG/10 ML VIAL IVP SCH (08:08)
[2018-04-26 08:14] LABS: Glucose,Whole Blood 115 mg/dL (75-99)
[2018-04-26] MEDS: MEROPENEM 1 GM in SODIUM CHLORIDE 0.9% 100 ML IVPB SCH ×2 (08:21→20:39)
[2018-04-26] MEDS: CHLORHEXIDINE GLUCONATE 15 ML CUP MUCOUS MEM SCH ×2 (08:21→21:28)
[2018-04-26] MEDS: SODIUM BICARBONATE TAB 650 MG TAB PO SCH (08:22)
[2018-04-26] MEDS: FLUCONAZOLE 100 MG TAB NG-TUBE SCH (08:22)
[2018-04-26] MEDS: NOREPINEPHRINE 16 MG in SODIUM CHLORIDE 0.9% 250 ML IV SCH (11:29)
[2018-04-26] MEDS: INSULIN DETEMIR 100 UNIT/ML 10 ML VIAL SQ SCH (11:38)
[2018-04-26 11:46] LABS: Glucose,Whole Blood 86 mg/dL (75-99)
--- NOTE | 2018-04-26 12:15 | P.PN ---
Subjective Progress Note Date: 04/26/18 Interval history: 04/18/18:Patient is being seen examined and evaluated today on rounds. She continues to be in the ICU. She continues on the BiPAP and is tolerating that well. Currently she is undergoing dialysis and potentially having 2 L of fluid to be pulled off. She has been on and off of vasopressors in the last 24 hours. Currently the patient was put back on Levophed. She currently is on tube feeds and is tolerating that well. She continues on IV steroids. She is afebrile, no further complaints. Her labs from this morning are reviewed. Her AST has increased to 663, a LT increased to 212, her bilirubin increased to 4.9 , BUN is 20, creatinine is 2.84, hemoglobin is stable at 7.4, daily after meals 14.8. Her care team follows her closely in collaboration including internal medicine, nephrology, pulmonary, infectious disease, intensivists, GI physician , cardiology, vascular surgery, and recently added pain management. 04/19/18: Patient is being seen examined and evaluated on rounds while in the intensive care unit today. PE patient was put on a Narcan drip yesterday. According to the nurses staff was slightly more awake after that was initiated. She continues on Levophed at 5 mics. The patient will be starting a bicarb drip and will be getting 2 units of packed red blood cells. Her labs this morning did reveal a hemoglobin of 5.9 and yesterday was 7.4. She also had ABGs from this morning and it revealed a pH of 7.26, pCO2 26, pO2 169 and HCO3 of 12. Dialysis was attempted this morning however the patient became extremely hypotensive and the fluid had to be given back to her. Currently she is in a positive fluid balance. She has had minimal scant urine output. She has been tolerating her tube feedings. She continues on BiPAP, is tachypnea. She did under go an arterial line placement yesterday. Chest x-ray from this morning is currently pending. LFT continue to climb, AST increased to 829 a ALT 262, alkaline phosphatase 420, albumin is 2.3 receiving albumin infusions. 04/20/18- patient is being seen examined and evaluated today while on rounds in the intensive care unit. The patient was obtunded and went into respiratory distress yesterday and was subsequently intubated. She also did receive a central line placement yesterday. Currently she is on mechanical ventilation with propofol for sedation. Current ventilator settings are assist-control mode with a respiratory rate of 24, tidal volume of 500, FiO2 70% and a PEEP of 5. Blood gases from this morning did reveal a pH of 7.44, pCO2 32, pO2 284, HCO3 22. She continues on Levophed drip at 4 mics, propofol is at 30 mics. She also is on the bicarb drip. Liver function tests did reveal this morning AST increased to 840, ALT increased to 289, alkaline phosphorus 395 and a bilirubin increased to 6.6. Her BUN is 20, creatinine is 2.34. She was unable to undergo dialysis yesterday. Plan is to receive dialysis today. Her hemoglobin yesterday was 5.9. Today it is increased to 7.9 she did have 2 units of packed red blood cells yesterday. Her chest x-ray from this morning is revealed continues to show bilateral consolidation with small effusions. She did undergo a CT of the abdomen and pelvis yesterday which did show fatty infiltration of the liver, nonobstructing right renal calculi, extensive subcutaneous edema bilaterally that is increased compared to last exam no evidence of retroperitoneal hemorrhages. Her urine output continues to be minimal. Per the nursing notes there is a family meeting planned for 2017 at 11 AM to discuss patient's prognosis and goals of care. 04/21/18, 04/22/18, 04/23/18- please see Dr KASIE Earl notes 04/24/18- patient is being seen examined and evaluated today while on rounds in the intensive care unit. She continues on mechanical ventilation with Versed for sedation. Current ventilator settings are assist-control mode with respiratory rate of 24, tidal volume of 500, FiO2 of 45% and a PEEP of 5. She continues to have scant minimal output. Continues on dialysis per nephrology. Her hemoglobin today is 6.3, WBCs 30.1, BUN 22 creatinine is 1.16, AST 580, ALT 253, alkaline phosphatase 310. Sputum is growing Pseudomonas and Carmel. She continues on IV steroids. His requiring small amounts of Levophed to maintain adequate blood pressures. ABGs from this morning is pH of 7.41, pCO2 40, pO2 70 , HCO3 25. Case discussed discussed with internal medicine Dr. Ballard, who is entertaining the idea of the possible trach and peg. He is also requesting a family meeting to be tomorrow morning as well. Patient's overall status and condition is discussed with bedside nurse directly. All labs and reports have been reviewed. Of note she will be receiving 2 more transfusions of packed red blood cells which while total 9 transfusions of RBCs 04/25/18- patient is being seen examined and evaluated today on rounds. Dr. KASIE Anderson did meet with the patient's family this morning and did discuss treatment options. The family at this time is unsure whether they would like to go forth with hospice or go for with possible trach and PEG placement. She continues on mechanical ventilation with versed for sedation. The patient's Versed was initially turned off this morning and deep to be put back on due to respirations in the 40s. Her neurological status has remained unchanged. She does have multiple consultants were working her up as well nearly added, Dr Juan, and Dr Youssef. Appreciate recommendations from all consultants. Her labs are reviewed from this morning her WBC has improved to 15.6, hemoglobin is 7.9, BUN is 30, creatinine is 1.03, AST 702, ALT 281, alkaline phosphatase 445, albumin 2.3. Blood gases from this morning pH of 7.42, pCO2 41 pO2 87 HCO3 26 were obtained on mechanical ventilation assist control mode with respiratory rate of 24, tidal volume of 500, FiO2 45 and a PEEP 5. Patient will also be getting another unit of packed red blood cells today. Case is discussed with the patient's direct care nurse. She currently is undergoing hemodialysis and continues to have scant minimal urine output 04/26/18- patient is being seen examined and evaluated today on rounds. She continues on mechanical ventilation with Versed for sedation current ventilator settings are assist-control mode with a respiratory rate of 24, tidal volume of 500, FiO2 45% and a PEEP of 5. ABGs this morning did reveal a pH of 7.35, pCO2 of 38, pO2 of 114, HCO3 of 21. Her WBC count has improved to 15.7, her hemoglobin today is 7.6, BUN 39, creatinine 1.23, AST 1449, ALT 523, alkaline phosphorous 65. GI services did initiate IV Mucomyst prophylactically yesterday. She is noted to have positive occult blood in her stool. Tube feedings have been on hold. Urine is showing Jaxon and Pseudomonas. Infectious diseases following closely. She will be receiving another unit of PRBCs this morning. She continues on Levophed at 5 mics. Versed is at 2mg/hr. Per the nursing staff the patient is scheduled to undergo hemodialysis/SLED 6 hour treatment today per nephrology's recommendations. Also of note the patient 's family has not decided yet whether they will go forth with comfort care measures or if they with be willing for trach and PEG procedures. Objective - Vital Signs Vital signs: Vital Signs Temp 97.8 F 04/26/18 11:06 Pulse 87 04/26/18 11:26 Resp 29 H 04/26/18 11:26 BP 87/52 04/26/18 11:26 Pulse Ox 100 04/26/18 11:26 Intake & Output 04/25/18 04/26/18 04/26/18 18:59 06:59 18:59 Intake Total 1091.906 787.832 361.457 Output Total 140 705 215 Balance 951.906 82.832 146.457 Weight 164 kg 164 kg Intake: IV 672 672 230 Sodium Chloride 0.9% 1, 600 600 200 000 ml @ 50 mls/hr IV . Q20H [facility] Rx#:[id number] pressure bag 72 72 30 Intake, IV Titration 58.906 115.832 131.457 Amount Meropenem 1 gm In Sodium 100 Chloride 0.9% 100 ml @ 200 mls/hr IVPB Q12HR [facility] Rx#:[id number] Midazolam HCl 100 mg In 6.683 50.811 Sodium Chloride 0.9% 80 ml @ 0.02 MG/KG/HR 3.46 mls/hr IV .Q24H [facility] Rx#: [id number] Norepinephrine 16 mg In 52.223 65.021 31.457 Sodium Chloride 0.9% 250 ml @ Titrate IV .Q0M [facility] Rx#:[id number] Tube Feeding 51 Blood Product 310 0 Rc As-1 Unit 0 [id number] Rc As-1 Unit 310 [id number] Output: Gastric Drainage 100 Urine 40 5 15 Stool 700 200 Other: Voiding Method Indwelling Catheter Indwelling Catheter Indwelling Catheter ABP, PAP, CO, CI - Last Documented Arterial Blood Pressure 95/55 - Exam GENERAL EXAM: On mechanical ventilation with versed for sedation, morbidly obese HEAD: Normocephalic. EYES: Normal reaction of pupils, equal size. Conjunctivae jaundice NOSE: Clear with pink turbinates. THROAT: No erythema or exudates. NECK: No masses, no JVD. Short, thick CHEST: No chest wall deformity. LUNGS: Decreased breath sounds throughout, on mechanical ventilation CVS: S1 and S2 normal with no audible mumurs, regular rhythm. ABDOMEN: No hepatosplenomegaly, normal bowel sounds, no guarding or rigidity. EXTREMITIES: +2 bilateral lower extremity edema noted, pedal pulses palpable. Bilateral Gurwinder wraps, bolus wounds bilateral lower extremities CENTRAL NERVOUS SYSTEM: On mechanical ventilation with Versed for sedation. - Labs CBC & Chem 7: 04/26/18 04:34 04/26/18 04:30 Labs: Abnormal Lab Results - Last 24 Hours (Table) 04/24/18 04/25/18 04/25/18 Range/Units 06:45 12:16 16:50 WBC (3.8-10.6) k/uL RBC (3.80-5.40) m/uL Hgb (11.4-16.0) gm/dL Hct (34.0-46.0) % RDW (11.5-15.5) % Plt Count (150-450) k/uL Neutrophils # (Manual) (1.3-7.7) k/uL Monocytes # (Manual) (0-1.0) k/uL Metamyelocytes # (Man) (0) k/uL Nucleated RBCs (0-0) /100 WBC ABG pO2 (83-108) mmHg ABG O2 Saturation (94-97) % Carbon Dioxide (22-30) mmol/L BUN (7-17) mg/dL Creatinine (0.52-1.04) mg/dL Glucose (74-99) mg/dL POC Glucose (mg/dL) 203 H 260 H (75-99) mg/dL Calcium (8.4-10.2) mg/dL Total Bilirubin (0.2-1.3) mg/dL AST (14-36) U/L ALT (9-52) U/L Alkaline Phosphatase (38-126) U/L Total Protein (6.3-8.2) g/dL Albumin (3.5-5.0) g/dL Crossmatch See Detail 04/25/18 04/25/18 04/25/18 Range/Units 20:22 21:10 21:10 WBC 19.8 H (3.8-10.6) k/uL RBC 2.84 L (3.80-5.40) m/uL Hgb 8.9 L (11.4-16.0) gm/dL Hct 25.6 L (34.0-46.0) % RDW 17.7 H (11.5-15.5) % Plt Count 59 L (150-450) k/uL Neutrophils # (Manual) 14.80 H (1.3-7.7) k/uL Monocytes # (Manual) 1.78 H (0-1.0) k/uL Metamyelocytes # (Man) 0.59 H (0) k/uL Nucleated RBCs 72 H (0-0) /100 WBC ABG pO2 (83-108) mmHg ABG O2 Saturation (94-97) % Carbon Dioxide (22-30) mmol/L BUN 34 H (7-17) mg/dL Creatinine (0.52-1.04) mg/dL Glucose 190 H (74-99) mg/dL POC Glucose (mg/dL) 219 H (75-99) mg/dL Calcium 6.5 L (8.4-10.2) mg/dL Total Bilirubin (0.2-1.3) mg/dL AST (14-36) U/L ALT (9-52) U/L Alkaline Phosphatase (38-126) U/L Total Protein (6.3-8.2) g/dL Albumin (3.5-5.0) g/dL Crossmatch 04/26/18 04/26/18 04/26/18 Range/Units 00:04 03:59 04:30 WBC (3.8-10.6) k/uL RBC (3.80-5.40) m/uL Hgb (11.4-16.0) gm/dL Hct (34.0-46.0) % RDW (11.5-15.5) % Plt Count (150-450) k/uL Neutrophils # (Manual) (1.3-7.7) k/uL Monocytes # (Manual) (0-1.0) k/uL Metamyelocytes # (Man) (0) k/uL Nucleated RBCs (0-0) /100 WBC ABG pO2 (83-108) mmHg ABG O2 Saturation (94-97) % Carbon Dioxide 20 L (22-30) mmol/L BUN 39 H (7-17) mg/dL Creatinine 1.23 H (0.52-1.04) mg/dL Glucose 129 H (74-99) mg/dL POC Glucose (mg/dL) 168 H 136 H (75-99) mg/dL Calcium 6.5 L (8.4-10.2) mg/dL Total Bilirubin 12.1 H (0.2-1.3) mg/dL AST 1449 H (14-36) U/L ALT 523 H (9-52) U/L Alkaline Phosphatase 465 H (38-126) U/L Total Protein 4.2 L (6.3-8.2) g/dL Albumin 2.1 L (3.5-5.0) g/dL Crossmatch 04/26/18 04/26/18 04/26/18 Range/Units 04:31 04:34 08:02 WBC 15.7 H (3.8-10.6) k/uL RBC 2.35 L (3.80-5.40) m/uL Hgb 7.6 L (11.4-16.0) gm/dL Hct 21.2 L (34.0-46.0) % RDW 17.7 H (11.5-15.5) % Plt Count 54 L (150-450) k/uL Neutrophils # (Manual) 13.10 H (1.3-7.7) k/uL Monocytes # (Manual) (0-1.0) k/uL Metamyelocytes # (Man) (0) k/uL Nucleated RBCs 79 H (0-0) /100 WBC ABG pO2 114 H (83-108) mmHg ABG O2 Saturation 98.7 H (94-97) % Carbon Dioxide (22-30) mmol/L BUN (7-17) mg/dL Creatinine (0.52-1.04) mg/dL Glucose (74-99) mg/dL POC Glucose (mg/dL) 115 H (75-99) mg/dL Calcium (8.4-10.2) mg/dL Total Bilirubin (0.2-1.3) mg/dL AST (14-36) U/L ALT (9-52) U/L Alkaline Phosphatase (38-126) U/L Total Protein (6.3-8.2) g/dL Albumin (3.5-5.0) g/dL Crossmatch Microbiology - Last 24 Hours (Table) 04/24/18 10:50 Urine Culture - Final Urine,Catheterized Carmel albicans Pseudomonas aeruginosa Assessment and Plan Assessment: Assessment Acute on chronic hypoxic respiratory failure Hypoventilation syndrome Possible central versus obstructive sleep apnea Sarcoidosis Chronic severe persistent asthma Acute on chronic renal failure on hemodialysis Morbid obesity Elevated liver enzymes Severe sepsis with septic shock related to UTI and a component of bilateral lower extremity cellulitis Possible shock liver Severe anemia of chronic disease and liver failure Pancytopenia Hemodynamically instability Metabolic encephalopathy Autoimmune disease primarily in the form of sarcoidosis Plan Continue on mechanical ventilation with Versed for sedation Medications have been reviewed and will be continued as ordered. IV steroid taper and antibiotics Vasopressors for hypotension wean as tolerated s/p total of 11 units of packed red blood cells this admission IV fluids as ordered Continue with pulmonary hygiene, coughing and deep breathing exercises, and supportive care. Supplemental oxygen to maintain oxygen saturations of 92% or better. Continue nebulizer treatments. Hemodialysis per nephrology GI and DVT prophylaxis. Collaborative care with internal medicine, nephrology, pulmonary, infectious disease, gas meter prover, GI services, cardiology, vascular surgery, rheumatology, hematology and pain management, appreciate input and recommendations We will continue to monitor labs/results and adjust treatment as necessary. Further recommendations pending. Prognosis highly guarded I, the signing physician performed an examination of the patient, discussed and directed their management with the nurse practitioner. I have reviewed the nurse practitioner's note and agree with the documented findings, orders and plan of care.
--- NOTE | 2018-04-26 13:33 | XR ---
EXAMINATION TYPE: XR chest 1V portable DATE OF EXAM: 04/26/2018 COMPARISON: 04/25/2018 HISTORY: Shortness of breath TECHNIQUE: Single frontal view of the chest is obtained. FINDINGS: ET tube now approximately 3.7 cm above guanako. NG tube in good position. Right-sided centr al line seen with the tip overlying the SVC. Biapical pleural thickening. Bilateral subsegmental cons olidation with small effusion. No sizable pneumothorax. PICC line noted. IMPRESSION: 1. Bilateral lower lobe infiltrate and left pleural effusion appear stable.
[2018-04-26] MEDS ORDERED: DEXTROSE 50%-WATER 50 ML SYRINGE IVP STA ×3 (14:22→22:06)
[2018-04-26 14:33] LABS: Glucose,Whole Blood 55 mg/dL (75-99)
[2018-04-26 14:38] LABS: Anisocytosis Slight; HCT 29.7 % (34.0-46.0); MCH 30.9 pg (25.0-35.0); MCHC 33.1 g/dL (31.0-37.0); MCV 93.5 fL (80.0-100.0); Mean Platelet Volume 10.7; Platelet Count 54 k/uL (150-450); RBC 3.18 m/uL (3.80-5.40); RDW 16.7 % (11.5-15.5)
[2018-04-26 14:49] LABS: Glucose,Whole Blood 217 mg/dL (75-99)
[2018-04-26 14:57] LABS: HGB 9.8 gm/dL (11.4-16.0)
--- NOTE | 2018-04-26 15:01 | P.PN ---
Subjective Progress Note Date: 04/26/18 This is 47 years old female with past medical history significant for sarcoidosis, morbid obesity, diabetes mellitus and multiple comorbidities, residence of long term who was recently discharged from [facility] presents today from long term with hypotension, slight tachycardia and hypoxia. In the emergency department blood pressure was below 90/60, heart rate in the 110 area, oxygen was in the mid 80s patient was started on oxygen and blood work showed elevated creatinine patient was sent to VQ scan which showed intermediate probability with limited examination due to motion factor and patient was started on heparin drip for assumption of pulmonary embolism. Patient is poor historian and unable to provide detailed information and was refusing care per nursing staff since admission to the floor including her medication and using her BiPAP on an as-needed basis. Patient currently is denying chest pain, shortness breath, nausea, vomiting, abdominal pain or productive cough 04/10: Received call today from the nursing staff the patient was really sick, blood pressure was low and was lethargic and sleeping well on BiPAP most the morning and lactic acid was elevated at 5.8 last evening.. She was unable to take her medications or eat this morning. She has increased edema. Patient has only had 150 mL of urine output overnight. She does have a Lopez catheter in. There was no IV access. Patient has been seen by by nephrology and cortisol level ordered along with Solu-Cortef and Lasix 60 mg IV once. Prednisone was discontinued. Patient was transferred into the intensive care unit and consult requested with Dr. Robin for intensive care management. Methadone dose changed to 50 mg daily which is her current dose at [facility]. Diarrhea has resolved. 04/11: Repeat chest x-ray reveals stable cardiomegaly. PICC placement. Patient has been seen by Dr. Colon and vancomycin and daptomycin started, continue Zosyn. Santyl to lower extremity cellulitis. Patient has been seen by Dr. Robin with concern for possible left lower lobe pneumonia, small left pleural effusion and dehydration. This morning, Dr. Moran ordered Lasix 40 mg IV once , IV dextrose 50% and regular insulin. Cortisol level was normal. Steroids are Solu-Medrol 60 mg every 6 hours. Midodrine was started yesterday for blood pressure support. Blood pressure is much improved today. Hemoglobin is 9.3, sodium 131 and potassium 5.3, creatinine 2.99. Capillary blood glucose running between 117 and 134. Lactic acid is now down to 1.9. Vancomycin level 25.6. Patient has been hemodynamically stable, afebrile. Patient has been on BiPAP and this morning is on nasal cannula, she remains lethargic but more alert from yesterday. Lopez catheter is in place. She continues to have lower extremity edema and now with weeping. No diarrhea. Patient has not had a bowel movement since 04/10. Urine output has been adequate at 50 mL per hour for the past 4 hours. She is complaining of nausea and abdominal discomfort for which lipase and CAT scan of the abdomen and pelvis ordered with oral contrast only. 04/12: Patient remains in intensive care unit. She has been hemodynamically stable and Midodrine will be discontinued. Lopez catheter remains in place with good urine output. She had a large bowel movement last evening and a small soft bowel movement today. Creatinine is 3.36 and BUN 17.. Heart rates have been elevated. Patient is more alert today from yesterday. GI consult added for elevated liver function tests and abdominal ultrasound ordered. 04/13: Cardiology consult was added yesterday due to tachycardia and patient was started on Lopressor 12.5 mg twice daily and hold for systolic blood pressure less than 90. TSH was 1.620. She has been on BiPAP during the night. Abdominal ultrasound reveals hepatomegaly correlate for hepatic steatosis, diffuse hepatocellular disease or hepatitis. There is ringing down artifact involving the gallbladder wall which can occasionally be seen with adenomyomatosis. Repeat liver function tests are increasing with total bilirubin 1.8, AST 82, ALT 54, alkaline phosphatase 278. GI is following. BUN 20 and creatinine 3.67, urine output low. She has epigastric tenderness and protonix added to omeprazole. Patient eating very little and refused nephro today. She is cleared to be transferred to Cardiac Step down. 04/14: Patient is more lethargic today. She is refusing to open her mouth. She has had no oral medications nor oral intake. Yesterday she ate a little bit of fluid and Magic cups. She is currently on BiPAP at FiO2 of 35%. Urine output by the time of evaluation was only 25-30 mL. Lasix 80 mg IV ordered by Dr. Moran. Patient may require hemodialysis if renal function does not improve. Today creatinine is at 3.99. Oral sodium bicarb will be switched over to drip. GI is following and has been asked to place Dobbhoff. Ammonia level came back normal at 18. Liver function tests are also worsening. 04/15: Patient is awake this morning on BiPAP. Very little communication but nods her head. She is complaining of nausea and abdominal pain. She had a bowel movement early this morning. Renal function is worse with creatinine of 4.9, hemoglobin 8.8. Nephrology has ordered consult with vascular for [place] catheter placement with plan for hemodialysis today, Tuesday and Tuesday. Urine output has been less than 200 mL over the past 24 hours. Patient to continue on sodium bicarb drip. Nephrology is added back in mid drain. Dobbhoff to be placed today. 04/16: Patient remains in the intensive care unit. She was started on Levophed this morning for blood pressure. She is still on BiPAP. [place] catheter was placed by Dr. Winter yesterday to the right groin but she did have blood loss and was advised to hold off on dialysis. This is improved with no further bleeding. She continues to have scant amount of urine output. Plan from nephrology is for dialysis today she was resumed back on admitted draining yesterday. Bicarb drip is to be discontinued once dialysis is started. Patient is sleeping but awakens to verbal stimuli. She is able to nod to answer questions. She has generalized anasarca. Noted that she has gained 20 kg since admission. She has not had Dobbhoff placed by GI 04/17: Patient is off norepinephrine. Dobbhoff may be placed tonight. She does have a new wound to the right posterior knee area. She also has a skin tear to the left arm. She is currently on antibiotics in form of daptomycin and Zosyn which will be continued. She is undergoing hemodialysis. Hemoglobin is 7.2 with BUN 27 creatinine 3.58. Liver enzymes remain elevated. Hepatitis B surface antibody is reactive at 74. 04/18: Patient will be undergoing hemodialysis this morning. She was placed back on norepinephrine drip last evening and has been intermittently for blood pressure systolic of 80. She is able to answer yes and no to questions. Liver function tests continued to rise. has recommended transfer to [facility] but patient is not candidate for biopsy. We have known in the past that the sister has been very resistant to her transferring out of [place] to [facility]. She now has an NG tube in place and receiving nephro that will be at goal liters today. Hepatitis B surface antibody was reactive at 74. There is concern that she is not been receiving methadone but this has been clarified by pain management that this can be crushed and put an NG tube which will be continued. White count is 14.8, hemoglobin 7.4, INR 1.5. BUN 20 creatinine 2.84 which is improved over the past couple days. AST 663, ALT 212, alkaline phosphatase 392. Total bilirubin is 4.9. Capillary blood glucose running between 130 and 166. We'll plan to monitor for at least another 24 hours and then discuss possible transfer with the family. Records reviewed from [facility]. 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 In 2016, PFT showed mild restriction with normal diffusion capacity. No response to bronchodilators. She had good response to Enbrel for 3 years but had to be stopped due to insurance company authorization. 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 She was not evaluated by neurosurgery and she had improvement of her mental status. MRI of the spine revealed fatty atrophy of the paraspinal musculature. No significant canal compromise or cord compression. Limited evaluation of right brachial plexus with no obvious abnormality. 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 Plan: wean prednisone down by 5 mg every week to end point of 20 mg, follow up with Dr. Gar[facility] April 25 at 1:15 and neurology follow-up with Dr. Garzon on April 03 at 9 AM. 04/19: Patient is more unresponsive today and remains on BiPAP and tachypneic. Patient was started on a Narcan drip last evening and was slightly more awake after this was started but then mental status declined. She was placed back on norepinephrine possibly related to clonidine patch. She is receiving 2 units of packed RBCs this morning for hemoglobin of 5.9. Dialysis was attempted this morning but due to hypotension this was not completed. She was started on a bicarb drip and nephrology adding an oral bicarb as well. Plan to attempt hemodialysis tomorrow. She has had scant urine output. She is tolerating tube feedings at goal. Limited echocardiogram revealed EF 60-65%, mild tricuspid regurgitation and moderate pulmonary hypertension. GI is recommending transfer to tertiary care center have PT/INR worsens. INR 1.6. AST 829, ALT 262, alkaline phosphatase 420, albumin 2.3. We did order 3 doses of albumin yesterday and will repeat today. Dr. Robin attempted a right IJ triple-lumen catheter and has been ordered for PICC line placement. CAT scan of the abdomen and pelvis without contrast showed fatty infiltration of the liver. Nonobstructive right renal calculi. Abdomen pelvis unchanged. Extensive subcutaneous edema bilaterally that is probably increased. No retroperitoneal hemorrhage. White count jumped to 28.7. Dr. Colon has discontinued daptomycin as treatment is completed for VRE UTI. Zosyn started for new left lower lobe infiltrate, possible aspiration she was vomiting yesterday. Cortisol level and ACTH will be checked in the morning 04/20: Patient was intubated last night. She is on levo at 8 mics. She is scheduled for hemodialysis today. She has had no urine output. She is currently off the Narcan drip and bicarb drip. Respiratory status appears more comfortable on the ventilator. She did have a right-sided IJ triple-lumen placed by Dr. Robin yesterday. Discussed with father, option of transfer to [facility] and he is undecided. He states that they are not going to do anything different than what transfer. Await further input from consultants. White count is 26.6, hemoglobin 7.9, platelet count 124, INR 1.8, BUN 20 creatinine 2.34. Total bilirubin 6.6, AST 840, ALT 289, alkaline phosphatase 395. Cortisol level came back at 41 and ACTH 5.19. 04/21: Patient undergoing dialysis today. Levo currently at 4 mics. She has received another unit of packed RBCs. Hemodialysis got off 500 mL yesterday. No plan for sedation holiday. Dr. Robin is following. Dr. Thompson discussed in detail the patient's current condition and prognosis with the patient's sister. Plan is to continue current treatment. 04/22: Patient was on levo fed at 4 mics needed to be increased to 10 while on hemodialysis. And it up getting 2 L off of with hemodialysis yesterday. She is on Solu-Medrol 60 mg IV every 6 hours it was started by Dr. KASIE Anderson. Blood sugars are running high and patient will be placed on Levemir 15 units daily. She is planned for a sedation holiday today. She is having liquid stools 2-3 per day and Reglan will be stopped. Triglyceride level will be checked as patient has been on propofol. Yesterday she did receive a dose of vitamin K for INR 1.5. Today creatinine is 1.48 with BUN of 16. Liver function tests are improving except for bilirubin continues to increase and currently at 7.1. AST 298, ALT 195 and alkaline phosphatase 430. Triglycerides came back at 915. Repeat chest x-ray shows bibasilar airspace disease. Improvement in patient' s findings status. 04/23: Level came back at 915 possibly related to propranolol. Nursing to update Dr. Robin regarding possibly changing to another agent for sedation. Patient was not able to tolerate a sedation holiday yesterday. She remains on ventilator with tidal volume 500 FiO2 60 and PEEP of 5. Patient is undergoing hemodialysis this morning. She continues to have very minimal urine output that is brown in color. Extremities have weeping wounds. Sclerae jaundiced. White count 33.2, hemoglobin 5.5 and platelet count is 88. BUN is 18 and creatinine 1.35. Blood sugars are running in the low 200s. PTT and PT are elevated and had to be sent to [facility] for testing. Dr. Robin to be notified. Patient did have hip antibody screen which came back negative on April 19. Patient is currently on norepinephrine at 11 mics. 04/24: IV sedation has been changed to Versed. Patient is on levo fed at 3 mics this morning. She was undergoing dialysis/SLED for the past 3 days. White count is now at 30.1, hemoglobin 6.3, platelet count at 70. BUN 22 and creatinine 1.16. Liver function tests remain elevated. LDH came back at 6098. INR is 1.1. IV albumin was ordered yesterday. Patient is on tube feedings and tolerating without any difficulty. Plan is to have a family meeting tomorrow regarding further determination on treatment or possibly comfort care. 04/25: Patient remains in the intensive care unit intubated and on mechanical ventilation. Patient is currently on norepinephrine at 5 mics. She is undergoing HD/SLED again today. Dr. Briceño has added and Mucomyst. Patient has extensive weeping to not only her legs and arms but now to her back with open wounds and blistering. Patient was decreased on Versed. Patient was not able to tolerate this was increased. Urine output is scant. Long discussion with patient's guardians: sister and father as well as patient's son regarding patient's current condition, multiple comorbidities and prognosis with option to either obtain trach and PEG or comfort care. They will discuss and make a decision. 04/26: Patient is now stooling dark brown positive for occult blood with concern for acute GI bleed. Dr. Rangel has recommended continuing tube feedings but it was turned off during the night. Long-acting insulin held this morning his blood sugars are running low. Regarding PEG tube placement if this is determined by family, Dr. Ryan suggest surgical placement of a feeding tube. Mucomyst has been started and cleared by nephrology for drug-induced liver injury. Liver enzymes are worsening. Patient remains intubated and on mechanical ventilation. She is scheduled for transfusion this morning. She remains on levo at 5 mics. She is scheduled for hemodialysis/select today. Family has not made a final decision regarding comfort care versus trach and PEG. Review Of Systems: Intubated and on mechanical ventilation Objective - Vital Signs Vital signs: Vital Signs Temp 97.6 F 04/26/18 13:01 Pulse 92 04/26/18 14:00 Resp 30 H 04/26/18 14:00 BP 97/62 04/26/18 13:01 Pulse Ox 97 04/26/18 13:00 Intake & Output 04/25/18 04/26/18 04/26/18 18:59 06:59 18:59 Intake Total 1091.906 787.832 846.859 Output Total 140 705 423 Balance 951.906 82.832 423.859 Weight 164 kg 164 kg Intake: IV 672 672 398 Sodium Chloride 0.9% 1, 600 600 350 000 ml @ 50 mls/hr IV . Q20H [facility] Rx#:[id number] pressure bag 72 72 48 Intake, IV Titration 58.906 115.832 138.859 Amount Meropenem 1 gm In Sodium 100 Chloride 0.9% 100 ml @ 200 mls/hr IVPB Q12HR [facility] Rx#:[id number] Midazolam HCl 100 mg In 6.683 50.811 Sodium Chloride 0.9% 80 ml @ 0.02 MG/KG/HR 3.46 mls/hr IV .Q24H [facility] Rx#: [id number] Norepinephrine 16 mg In 52.223 65.021 38.859 Sodium Chloride 0.9% 250 ml @ Titrate IV .Q0M [facility] Rx#:[id number] Tube Feeding 51 Blood Product 310 310 Rc As-1 Unit 310 [id number] Rc As-1 Unit 310 [id number] Output: Gastric Drainage 100 Urine 40 5 15 Stool 700 200 Other 208 Other: Voiding Method Indwelling Catheter Indwelling Catheter Indwelling Catheter ABP, PAP, CO, CI - Last Documented Arterial Blood Pressure 97/54 - Exam Gen: This is a morbidly obese 47-year-old female. She is in ICU bed intubated and on mechanical ventilation, undergoing HD. Patient appears to be comfortable. No change in condition. HEENT: Head is atraumatic, normocephalic. Pupils equal, round. Sclerae is icteric. Oral ET and NG tube in place NECK: Supple. No JVD. No lymphadenopathy. No thyromegaly. LUNGS: Diminished bilaterally. Clear to auscultation. No wheezes or rhonchi. No intercostal retractions. HEART: Regular rate and rhythm. No murmur. ABDOMEN: Morbidly obese. Generalized anasarca Soft. Bowel sounds are present. No masses. Positive epigastric tenderness. Lopez catheter draining clear benjy urine, scant amount. Fecal management system with dark brown liquid stool. EXTREMITIES: 2-3+ pedal edema with serous weeping severe to lower extremities. No calf tenderness. +wound posterior bilateral lower extremities, groins, bilateral arms. NEUROLOGICAL: Patient is sedated. - Labs CBC & Chem 7: 04/26/18 04:34 04/26/18 04:30 Labs: Abnormal Lab Results - Last 24 Hours (Table) 04/24/18 04/25/18 04/25/18 Range/Units 06:45 16:50 20:22 WBC (3.8-10.6) k/uL RBC (3.80-5.40) m/uL Hgb (11.4-16.0) gm/dL Hct (34.0-46.0) % RDW (11.5-15.5) % Plt Count (150-450) k/uL Neutrophils # (Manual) (1.3-7.7) k/uL Monocytes # (Manual) (0-1.0) k/uL Metamyelocytes # (Man) (0) k/uL Nucleated RBCs (0-0) /100 WBC ABG pO2 (83-108) mmHg ABG O2 Saturation (94-97) % Carbon Dioxide (22-30) mmol/L BUN (7-17) mg/dL Creatinine (0.52-1.04) mg/dL Glucose (74-99) mg/dL POC Glucose (mg/dL) 260 H 219 H (75-99) mg/dL Calcium (8.4-10.2) mg/dL Total Bilirubin (0.2-1.3) mg/dL AST (14-36) U/L ALT (9-52) U/L Alkaline Phosphatase (38-126) U/L Total Protein (6.3-8.2) g/dL Albumin (3.5-5.0) g/dL Crossmatch See Detail 04/25/18 04/25/18 04/26/18 Range/Units 21:10 21:10 00:04 WBC 19.8 H (3.8-10.6) k/uL RBC 2.84 L (3.80-5.40) m/uL Hgb 8.9 L (11.4-16.0) gm/dL Hct 25.6 L (34.0-46.0) % RDW 17.7 H (11.5-15.5) % Plt Count 59 L (150-450) k/uL Neutrophils # (Manual) 14.80 H (1.3-7.7) k/uL Monocytes # (Manual) 1.78 H (0-1.0) k/uL Metamyelocytes # (Man) 0.59 H (0) k/uL Nucleated RBCs 72 H (0-0) /100 WBC ABG pO2 (83-108) mmHg ABG O2 Saturation (94-97) % Carbon Dioxide (22-30) mmol/L BUN 34 H (7-17) mg/dL Creatinine (0.52-1.04) mg/dL Glucose 190 H (74-99) mg/dL POC Glucose (mg/dL) 168 H (75-99) mg/dL Calcium 6.5 L (8.4-10.2) mg/dL Total Bilirubin (0.2-1.3) mg/dL AST (14-36) U/L ALT (9-52) U/L Alkaline Phosphatase (38-126) U/L Total Protein (6.3-8.2) g/dL Albumin (3.5-5.0) g/dL Crossmatch 04/26/18 04/26/18 04/26/18 Range/Units 03:59 04:30 04:31 WBC (3.8-10.6) k/uL RBC (3.80-5.40) m/uL Hgb (11.4-16.0) gm/dL Hct (34.0-46.0) % RDW (11.5-15.5) % Plt Count (150-450) k/uL Neutrophils # (Manual) (1.3-7.7) k/uL Monocytes # (Manual) (0-1.0) k/uL Metamyelocytes # (Man) (0) k/uL Nucleated RBCs (0-0) /100 WBC ABG pO2 114 H (83-108) mmHg ABG O2 Saturation 98.7 H (94-97) % Carbon Dioxide 20 L (22-30) mmol/L BUN 39 H (7-17) mg/dL Creatinine 1.23 H (0.52-1.04) mg/dL Glucose 129 H (74-99) mg/dL POC Glucose (mg/dL) 136 H (75-99) mg/dL Calcium 6.5 L (8.4-10.2) mg/dL Total Bilirubin 12.1 H (0.2-1.3) mg/dL AST 1449 H (14-36) U/L ALT 523 H (9-52) U/L Alkaline Phosphatase 465 H (38-126) U/L Total Protein 4.2 L (6.3-8.2) g/dL Albumin 2.1 L (3.5-5.0) g/dL Crossmatch 04/26/18 04/26/18 04/26/18 Range/Units 04:34 08:02 14:21 WBC 15.7 H (3.8-10.6) k/uL RBC 2.35 L (3.80-5.40) m/uL Hgb 7.6 L (11.4-16.0) gm/dL Hct 21.2 L (34.0-46.0) % RDW 17.7 H (11.5-15.5) % Plt Count 54 L (150-450) k/uL Neutrophils # (Manual) 13.10 H (1.3-7.7) k/uL Monocytes # (Manual) (0-1.0) k/uL Metamyelocytes # (Man) (0) k/uL Nucleated RBCs 79 H (0-0) /100 WBC ABG pO2 (83-108) mmHg ABG O2 Saturation (94-97) % Carbon Dioxide (22-30) mmol/L BUN (7-17) mg/dL Creatinine (0.52-1.04) mg/dL Glucose (74-99) mg/dL POC Glucose (mg/dL) 115 H 55 L (75-99) mg/dL Calcium (8.4-10.2) mg/dL Total Bilirubin (0.2-1.3) mg/dL AST (14-36) U/L ALT (9-52) U/L Alkaline Phosphatase (38-126) U/L Total Protein (6.3-8.2) g/dL Albumin (3.5-5.0) g/dL Crossmatch 04/26/18 Range/Units 14:36 WBC (3.8-10.6) k/uL RBC (3.80-5.40) m/uL Hgb (11.4-16.0) gm/dL Hct (34.0-46.0) % RDW (11.5-15.5) % Plt Count (150-450) k/uL Neutrophils # (Manual) (1.3-7.7) k/uL Monocytes # (Manual) (0-1.0) k/uL Metamyelocytes # (Man) (0) k/uL Nucleated RBCs (0-0) /100 WBC ABG pO2 (83-108) mmHg ABG O2 Saturation (94-97) % Carbon Dioxide (22-30) mmol/L BUN (7-17) mg/dL Creatinine (0.52-1.04) mg/dL Glucose (74-99) mg/dL POC Glucose (mg/dL) 217 H (75-99) mg/dL Calcium (8.4-10.2) mg/dL Total Bilirubin (0.2-1.3) mg/dL AST (14-36) U/L ALT (9-52) U/L Alkaline Phosphatase (38-126) U/L Total Protein (6.3-8.2) g/dL Albumin (3.5-5.0) g/dL Crossmatch Microbiology - Last 24 Hours (Table) 04/24/18 10:50 Urine Culture - Final Urine,Catheterized [place] albicans Pseudomonas aeruginosa Assessment and Plan Plan: 1. Sepsis with septic shock secondary to urinary tract infection with lactic acidosis. Intensive care unit management. PICC line ordered for IV access. Consults with Dr. Robin and Dr. Colon appreciated. Patient completed course of daptomycin. IVF per Dr. Moran 2. Intermediate probability of pulmonary embolism ruled out. Pulmonary medicine is following 3. Acute respiratory failure on chronic respiratory failure with hypoxia. Continue albuterol nebulizer treatments every 6 hours, DuoNeb treatments every 4 hours as needed, Pulmicort twice daily, Solu-Medrol. Intubated and on mechanical ventilation management by Dr. Robin 4. Morbid obesity with BMI of 59. 5. Neurogenic bladder with incontinence. Urinary retention requiring Lopez catheter placement. 6. Diabetes mellitus type 2 insulin-dependent. Metformin on hold. NovoLog scale before meals and at bedtime. 7. Debility and deconditioning. 8. Dehydration. 9. Acute kidney injury and ATN likely secondary to dehydration with hyperkalemia. Consult with nephrology appreciated. [place] catheter has been placed by Dr. Winter. Patient on hemodialysis, 10. 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 11. Hyperkalemia 12. Metabolic encephalopathy secondary to sepsis, respiratory failure, liver failure. 13. Chronic pain. Methadone discontinued and patient was placed on Narcan drip. 14. Abdominal pain with worsening liver function tests mostly secondary to heart failure and congestion. 15. Severe protein calorie malnutrition. NG tube feedings. Dietitian is following. Albumin IV ordered. 16. Metabolic acidosis. Sodium bicarb oral and IV. 17. GERD and possible gastritis. Continue Pepcid and Protonix 18. Aspiration pneumonia. Continue Zosyn. Dr. Isaiah is following. 19. Multiorgan failure with respiratory, renal and liver failure. 20. Full body anasarca with weeping, large vesicles that are breaking open with open wounds across her back and upper and lower extremities. 21. Acute GI bleed with acute blood loss anemia. Fecal management system in place, transfuse 1 unit of packed RBCs today. CODE STATUS: Full code Prognosis poor Discharge plan: Return to [facility] as long-term resident. Patient is known to have guardian. (Sister and father). Patient may be candidate for hospice in the near future. Family meeting tomorrow/ Impression and plan of care have been directed as dictated by the signing physician. Jeanne Roca nurse practitioner acting as scribe for signing physician.
--- NOTE | 2018-04-26 15:30 | PN ---
PROGRESS NOTE Patient is seen for followup for acute kidney injury. The patient remains oliguric and dialysis dependent. She is having HD that procedure however this morning patient was not able to tolerate dialysis well. Levophed was up to about 25 mcg. Patient's respiratory rate had gone up into the 40s and she was taken off of treatment. Her hemoglobin was at 7.6 g/dL from 8.9 yesterday. Patient continues to have dark stools and has a fecal management system in the PE. The 1 unit of packed RBCs were ordered this morning. Patient remains on the vent. PHYSICAL EXAMINATION: This morning blood pressure was about 97-95 mmHg. Heart rate about 90 per minute. Patient is afebrile. She remains on the vent, sedated. Bilateral breath sounds are heard. Abdomen is distended, obese, is improved. There is bruising noted in the right lower part of the abdomen. Femoral dialysis catheter is in place. Bilateral lower extremities are wrapped. Significant edema was noted, which appears to be slightly improved over the last 4-5 days. Review of lab show sodium 140, potassium 4.4, BUN of 39, serum creatinine 1.23 possible 3.8, calcium 6.5. ASSESSMENT: 1. Acute kidney injury, acute tubular necrosis, currently oligoanuric and dialysis dependent. The patient is being dialyzed on a daily basis. 2. Severe volume overload, slowly improving. 3. The sepsis and hypotension currently on small dose of Levophed, which was increased during dialysis. 4. Urinary tract infection with urine culture growing enterococcus species, VRE. 5. Pneumonia with sputum culture growing Pseudomonas aeruginosa. A second urine culture also grew Pseudomonas. 6. GI bleed, maintained on IV Protonix. 7. Elevated liver enzymes and hyperbilirubinemia, being followed by GI, maintained on Mucomyst. PLAN: We will hold off and continue with dialysis today and if the patient remains stable, we can re-attempt this procedure tomorrow. MMODL / IJN: [id number] /
[2018-04-26 15:31] LABS: Band Neutrophils % 15 %; Lymphocytes # (M) 3.74 k/uL (1.0-4.8); Metamyelocytes # (M) 1.32 k/uL (0); Metamyelocytes % 6 %; Monocytes # (M) 0.44 k/uL (0-1.0); Myelocytes # (M) 0.44 k/uL (0); Myelocytes % 2 %; Neutrophils % (M) 60 %; Nucleated Red Blood Cells 53 /100 WBC (0-0); Total Cells Counted 200
[2018-04-26 15:32] LABS: Polychromasia Present
[2018-04-26] MEDS: SODIUM CHLORIDE 0.9% 1,000 ML IV SCH (18:03)
[2018-04-26 19:00] LABS: Anisocytosis Slight; HCT 28.5 % (34.0-46.0); HGB 9.2 gm/dL (11.4-16.0); Hypochromasia Slight; MCH 30.7 pg (25.0-35.0); MCHC 32.5 g/dL (31.0-37.0); MCV 94.5 fL (80.0-100.0); Mean Platelet Volume 11.5; RBC 3.02 m/uL (3.80-5.40); RDW 17.1 % (11.5-15.5)
[2018-04-26 19:57] LABS: Glucose,Whole Blood 26 mg/dL (75-99)
[2018-04-26 19:57] LABS: Glucose,Whole Blood 30 mg/dL (75-99)
[2018-04-26 19:58] LABS: Band Neutrophils % 13 %; Metamyelocytes % 5 %; Myelocytes % 9 %; Neutrophils % (M) 52 %; Nucleated Red Blood Cells 61 /100 WBC (0-0); Total Cells Counted 200
[2018-04-26 19:59] LABS: Metamyelocytes # (M) 0.98 k/uL (0); Monocytes # (M) 0.39 k/uL (0-1.0); Myelocytes # (M) 1.76 k/uL (0); WBC 19.5 k/uL (3.8-10.6)
[2018-04-26 20:00] LABS: Platelet Count 52 k/uL (150-450); Poikilocytosis (M) Present
[2018-04-26 20:11] LABS: Glucose,Whole Blood 180 mg/dL (75-99)
[2018-04-26 20:59] LABS: ABG Base Excess -28.3 mmol/L; ABG Oxygen Saturation 97.6 % (94-97); ABG PCO2 28 mmHg (35-45); ABG PO2 158 mmHg (83-108); ABG TCO2 6 mmol/L (19-24)
[2018-04-26 21:02] LABS: ABG HCO3 5 mmol/L (21-25); ABG PH <7.00 (7.35-7.45)
[2018-04-26] MEDS ORDERED: SODIUM BICARB 8.4% 50 ML SYR (1 MEQ/ML) IV ONE ×2 (21:03→21:05)
[2018-04-26 21:23] LABS: Anisocytosis Slight; HCT 25.4 % (34.0-46.0); HGB 8.2 gm/dL (11.4-16.0); Hypochromasia Marked; MCH 31.5 pg (25.0-35.0); MCHC 32.4 g/dL (31.0-37.0); MCV 97.4 fL (80.0-100.0); Macrocytosis Slight; Mean Platelet Volume 11.8; RBC 2.61 m/uL (3.80-5.40); RDW 16.9 % (11.5-15.5)
[2018-04-26 21:50] LABS: Band Neutrophils % 23 %; Lymphocytes # (M) 4.73 k/uL (1.0-4.8); Metamyelocytes # (M) 0.99 k/uL (0); Metamyelocytes % 5 %; Monocytes # (M) 0.39 k/uL (0-1.0); Myelocytes # (M) 1.58 k/uL (0); Myelocytes % 8 %; Neutrophils % (M) 38 %; Nucleated Red Blood Cells 43 /100 WBC (0-0); Total Cells Counted 200; WBC 19.7 k/uL (3.8-10.6)
[2018-04-26 21:51] LABS: Platelet Count 51 k/uL (150-450); Poikilocytosis (M) Present; Polychromasia Present
[2018-04-26 22:02] LABS: Glucose,Whole Blood 25 mg/dL (75-99)
[2018-04-26 22:04] LABS: ABG Base Excess -26.5 mmol/L; ABG Oxygen Saturation 99.1 % (94-97); ABG PCO2 28 mmHg (35-45); ABG PO2 153 mmHg (83-108); ABG TCO2 7 mmol/L (19-24)
[2018-04-26 22:06] LABS: ABG HCO3 6 mmol/L (21-25); ABG PH <7.00 (7.35-7.45)
[2018-04-26 22:06] LABS: Blood Urea Nitrogen 41 mg/dL (7-17); Calcium 7.4 mg/dL (8.4-10.2); Chloride 108 mmol/L (98-107); Glucose 73 mg/dL (74-99); Sodium 143 mmol/L (137-145)
[2018-04-26 22:23] LABS: Potassium 7.9 mmol/L (3.5-5.1)
[2018-04-26 22:23] LABS: Glucose,Whole Blood 39 mg/dL (75-99)
[2018-04-26 22:23] LABS: Glucose,Whole Blood 326 mg/dL (75-99)
[2018-04-26 22:24] LABS: Carbon Dioxide <5 mmol/L (22-30); Phosphorus 11.1 mg/dL (2.5-4.5)
[2018-04-26] MEDS ORDERED: ALBUTEROL NEBULIZED (CONC) 15 MG, SODIUM CHLORIDE 0.9% NEBULIZ 3 ML INHALATION STA ×2 (22:37)
[2018-04-26] MEDS ORDERED: WATER FOR INJECTION, STERILE 1,000 ML with SODIUM ACETATE 150 MEQ IV SCH ×2 (23:00)
[2018-04-26] MEDS ORDERED: CALCIUM GLUCONATE 1,000 MG in SODIUM CHLORIDE 0.9% 100 ML IVPB ONE (23:00)
[2018-04-26] MEDS ORDERED: DEXTROSE 5% IN WATER 1,000 ML with SODIUM BICARB (1 MEQ/ML) 150 ML IV SCH (23:00)
[2018-04-26 23:09] LABS: Glucose,Whole Blood 266 mg/dL (75-99)
[2018-04-27] MEDS: methylPREDNISolone SOD SUCCI 125 MG/2 ML VIAL IV SCH (00:12)
[2018-04-27] MEDS: NOREPINEPHRINE 16 MG in SODIUM CHLORIDE 0.9% 250 ML IV SCH (00:19)
[2018-04-27 00:25] LABS: Glucose,Whole Blood 243 mg/dL (75-99)
[2018-04-27] MEDS: ACETYLCYSTEINE 6,000 MG/30 ML VIAL NG-TUBE SCH (00:32)
[2018-04-27] MEDS: INSULIN ASPART 100 UNIT/ML 1 ML 10 ML VIAL SQ SCH (00:43)
[2018-04-27 01:33] VITALS: BP 70/49; TEMP 97.9
[2018-04-27 01:54] LABS: Glucose,Whole Blood 235 mg/dL (75-99)
[2018-04-27 02:58] LABS: Blood Urea Nitrogen 41 mg/dL (7-17); Calcium 6.7 mg/dL (8.4-10.2); Chloride 103 mmol/L (98-107); Glucose 181 mg/dL (74-99); Magnesium 2.9 mg/dL (1.6-2.3); Sodium 145 mmol/L (137-145)
[2018-04-27 03:05] LABS: Carbon Dioxide <5 mmol/L (22-30); Potassium 8.2 mmol/L (3.5-5.1)
[2018-04-27 03:06] LABS: Ionized Calcium 3.4 mg/dL (4.5-5.3); Phosphorus 13.6 mg/dL (2.5-4.5)
--- NOTE | 2018-04-27 05:48 | PN ---
PROGRESS NOTE DATE OF SERVICE: 04/26/2018 REASON FOR FOLLOWUP: 1. Pseudomonas aeruginosa pneumonia. 2. Possible pharyngeal candidiasis. 3. Multiple wounds to the leg and the back area. INTERVAL HISTORY: The patient is afebrile. She was seen on rounds this morning. The patient undergoing hemodialysis. However, the patient is unable to tolerate it, hence it has has to be aborted. The patient also noticed to have a drop in hemoglobin and was getting blood transfusion. She was on 6 mcg of Levophed this morning that has to be increased up to 20 mcg for the patient to undergo dialysis. The patient remains to be sedated on the vent and unable to provide any history. Has been tolerating her diet, tube feeds. PHYSICAL EXAMINATION: On examination, blood pressure is 97/62 with a pulse of 92, temperature 97.6. She is 97% on 35% FiO2. General description is a middle aged female lying in bed in no distress. RESPIRATORY SYSTEM: Unlabored breathing with decreased breath sounds at the bases. No wheeze. HEART: S1, S2. Regular rate and rhythm. ABDOMEN: Soft, no tenderness. LEGS: Wounds currently dressed, no obvious drainage. LABS: Hemoglobin 8.2 with white count 19.7, BUN of 39, creatinine 1.23. significantly elevated. DIAGNOSTIC IMPRESSION AND PLAN: 1. Patient with acute respiratory failure which is likely multifactorial and the patient did have a component of pneumonia. Sputum has been multiresistant Pseudomonas aeruginosa and the patient is currently covered with meropenem, that will be continued. 2. Patient with possible oropharyngeal candidiasis that is covered with Diflucan, that will be continued. 3. Multiple wounds to the leg and back areas to continue her with Aquacel silver dressing. Keep the area dry and continue supportive care. Overall prognosis remains to be very poor. MMODL / IJN: [id number] /
[2018-04-27 06:58] VITALS: PULSE 105; RESP 24
--- NOTE | 2018-04-27 15:11 | P.DS ---
Providers Date of admission: 04/09/18 15:50 Expected date of discharge: 04/27/18 Attending physician: Macarena Ann Consults: 04/08/18 16:17 Consult Physician Routine Consulting Provider: Soheila Devine Consult Reason/Comments: Acute renal injury Do you want consulting provider notified?: Yes 04/09/18 19:57 Consult Physician Routine Consulting Provider: Kyle Anderson Consult Reason/Comments: PE Do you want consulting provider notified?: Yes 04/10/18 11:44 Consult Physician Routine Consulting Provider: Santana Colon Consult Reason/Comments: recurrent UTI, sepsis Do you want consulting provider notified?: Yes 04/10/18 12:43 Consult Physician Routine Consulting Provider: Tony Robin Consult Reason/Comments: icu management Do you want consulting provider notified?: Yes 04/12/18 11:49 Consult Physician Routine Consulting Provider: Manuel Briceño Consult Reason/Comments: elevated Alk phos, ?sarcoid involvement Do you want consulting provider notified?: Yes 04/12/18 15:49 Consult Physician Routine Consulting Provider: Twin Paniagua Consult Reason/Comments: Tachycardia Do you want consulting provider notified?: Yes 04/15/18 10:28 Consult Physician Routine Consulting Provider: Edmund Winter Consult Reason/Comments: insertion of hemodialysis catheter Do you want consulting provider notified?: Yes 04/23/18 09:43 Consult Physician Routine Consulting Provider: Sharita Juan Consult Reason/Comments: autoimmune disease Do you want consulting provider notified?: Yes 04/23/18 11:05 Consult Physician Routine Consulting Provider: Rico Youssef Consult Reason/Comments: possible hemolytic anemia Do you want consulting provider notified?: Yes Primary care physician: Kaylan [facility] Course: This is 47 years old female with past medical history significant for sarcoidosis, morbid obesity, diabetes mellitus and multiple comorbidities, residence of [facility] who was recently discharged from [facility] presents today from [facility] with hypotension, slight tachycardia and hypoxia. In the emergency department blood pressure was below 90/60, heart rate in the 110 area, oxygen was in the mid 80s patient was started on oxygen and blood work showed elevated creatinine patient was sent to VQ scan which showed intermediate probability with limited examination due to motion factor and patient was started on heparin drip for assumption of pulmonary embolism. Patient is poor historian and unable to provide detailed information and was refusing care per nursing staff since admission to the floor including her medication and using her BiPAP on an as-needed basis. Patient currently is denying chest pain, shortness breath, nausea, vomiting, abdominal pain or productive cough 04/10: Received call today from the nursing staff the patient was really sick, blood pressure was low and was lethargic and sleeping well on BiPAP most the morning and lactic acid was elevated at 5.8 last evening.. She was unable to take her medications or eat this morning. She has increased edema. Patient has only had 150 mL of urine output overnight. She does have a Lopez catheter in. There was no IV access. Patient has been seen by by nephrology and cortisol level ordered along with Solu-Cortef and Lasix 60 mg IV once. Prednisone was discontinued. Patient was transferred into the intensive care unit and consult requested with Dr. Robin for intensive care management. Methadone dose changed to 50 mg daily which is her current dose at [facility]. Diarrhea has resolved. 04/11: Repeat chest x-ray reveals stable cardiomegaly. PICC placement. Patient has been seen by Dr. Colon and vancomycin and daptomycin started, continue Zosyn. Santyl to lower extremity cellulitis. Patient has been seen by Dr. Robin with concern for possible left lower lobe pneumonia, small left pleural effusion and dehydration. This morning, Dr. Moran ordered Lasix 40 mg IV once , IV dextrose 50% and regular insulin. Cortisol level was normal. Steroids are Solu-Medrol 60 mg every 6 hours. Midodrine was started yesterday for blood pressure support. Blood pressure is much improved today. Hemoglobin is 9.3, sodium 131 and potassium 5.3, creatinine 2.99. Capillary blood glucose running between 117 and 134. Lactic acid is now down to 1.9. Vancomycin level 25.6. Patient has been hemodynamically stable, afebrile. Patient has been on BiPAP and this morning is on nasal cannula, she remains lethargic but more alert from yesterday. Lopez catheter is in place. She continues to have lower extremity edema and now with weeping. No diarrhea. Patient has not had a bowel movement since 04/10. Urine output has been adequate at 50 mL per hour for the past 4 hours. She is complaining of nausea and abdominal discomfort for which lipase and CAT scan of the abdomen and pelvis ordered with oral contrast only. 04/12: Patient remains in intensive care unit. She has been hemodynamically stable and Midodrine will be discontinued. Lopez catheter remains in place with good urine output. She had a large bowel movement last evening and a small soft bowel movement today. Creatinine is 3.36 and BUN 17.. Heart rates have been elevated. Patient is more alert today from yesterday. GI consult added for elevated liver function tests and abdominal ultrasound ordered. 04/13: Cardiology consult was added yesterday due to tachycardia and patient was started on Lopressor 12.5 mg twice daily and hold for systolic blood pressure less than 90. TSH was 1.620. She has been on BiPAP during the night. Abdominal ultrasound reveals hepatomegaly correlate for hepatic steatosis, diffuse hepatocellular disease or hepatitis. There is ringing down artifact involving the gallbladder wall which can occasionally be seen with adenomyomatosis. Repeat liver function tests are increasing with total bilirubin 1.8, AST 82, ALT 54, alkaline phosphatase 278. GI is following. BUN 20 and creatinine 3.67, urine output low. She has epigastric tenderness and protonix added to omeprazole. Patient eating very little and refused nephro today. She is cleared to be transferred to Cardiac Step down. 04/14: Patient is more lethargic today. She is refusing to open her mouth. She has had no oral medications nor oral intake. Yesterday she ate a little bit of fluid and Magic cups. She is currently on BiPAP at FiO2 of 35%. Urine output by the time of evaluation was only 25-30 mL. Lasix 80 mg IV ordered by Dr. Moran. Patient may require hemodialysis if renal function does not improve. Today creatinine is at 3.99. Oral sodium bicarb will be switched over to drip. GI is following and has been asked to place Dobbhoff. Ammonia level came back normal at 18. Liver function tests are also worsening. 04/15: Patient is awake this morning on BiPAP. Very little communication but nods her head. She is complaining of nausea and abdominal pain. She had a bowel movement early this morning. Renal function is worse with creatinine of 4.9, hemoglobin 8.8. Nephrology has ordered consult with vascular for [place] catheter placement with plan for hemodialysis today, Tuesday and Tuesday. Urine output has been less than 200 mL over the past 24 hours. Patient to continue on sodium bicarb drip. Nephrology is added back in mid drain. Dobbhoff to be placed today. 04/16: Patient remains in the intensive care unit. She was started on Levophed this morning for blood pressure. She is still on BiPAP. [place] catheter was placed by Dr. Winter yesterday to the right groin but she did have blood loss and was advised to hold off on dialysis. This is improved with no further bleeding. She continues to have scant amount of urine output. Plan from nephrology is for dialysis today she was resumed back on admitted draining yesterday. Bicarb drip is to be discontinued once dialysis is started. Patient is sleeping but awakens to verbal stimuli. She is able to nod to answer questions. She has generalized anasarca. Noted that she has gained 20 kg since admission. She has not had Dobbhoff placed by GI 04/17: Patient is off norepinephrine. Dobbhoff may be placed tonight. She does have a new wound to the right posterior knee area. She also has a skin tear to the left arm. She is currently on antibiotics in form of daptomycin and Zosyn which will be continued. She is undergoing hemodialysis. Hemoglobin is 7.2 with BUN 27 creatinine 3.58. Liver enzymes remain elevated. Hepatitis B surface antibody is reactive at 74. 04/18: Patient will be undergoing hemodialysis this morning. She was placed back on norepinephrine drip last evening and has been intermittently for blood pressure systolic of 80. She is able to answer yes and no to questions. Liver function tests continued to rise. has recommended transfer to [facility] but patient is not candidate for biopsy. We have known in the past that the sister has been very resistant to her transferring out of [place] to [facility]. She now has an NG tube in place and receiving nephro that will be at goal liters today. Hepatitis B surface antibody was reactive at 74. There is concern that she is not been receiving methadone but this has been clarified by pain management that this can be crushed and put an NG tube which will be continued. White count is 14.8, hemoglobin 7.4, INR 1.5. BUN 20 creatinine 2.84 which is improved over the past couple days. AST 663, ALT 212, alkaline phosphatase 392. Total bilirubin is 4.9. Capillary blood glucose running between 130 and 166. We'll plan to monitor for at least another 24 hours and then discuss possible transfer with the family. Records reviewed from [facility]. 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 In 2016, PFT showed mild restriction with normal diffusion capacity. No response to bronchodilators. She had good response to Enbrel for 3 years but had to be stopped due to insurance company authorization. 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 She was not evaluated by neurosurgery and she had improvement of her mental status. MRI of the spine revealed fatty atrophy of the paraspinal musculature. No significant canal compromise or cord compression. Limited evaluation of right brachial plexus with no obvious abnormality. 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 Plan: wean prednisone down by 5 mg every week to end point of 20 mg, follow up with Dr. Gar[facility] April 25 at 1:15 and neurology follow-up with Dr. Garzon on April 03 at 9 AM. 04/19: Patient is more unresponsive today and remains on BiPAP and tachypneic. Patient was started on a Narcan drip last evening and was slightly more awake after this was started but then mental status declined. She was placed back on norepinephrine possibly related to clonidine patch. She is receiving 2 units of packed RBCs this morning for hemoglobin of 5.9. Dialysis was attempted this morning but due to hypotension this was not completed. She was started on a bicarb drip and nephrology adding an oral bicarb as well. Plan to attempt hemodialysis tomorrow. She has had scant urine output. She is tolerating tube feedings at goal. Limited echocardiogram revealed EF 60-65%, mild tricuspid regurgitation and moderate pulmonary hypertension. GI is recommending transfer to tertiary care center have PT/INR worsens. INR 1.6. AST 829, ALT 262, alkaline phosphatase 420, albumin 2.3. We did order 3 doses of albumin yesterday and will repeat today. Dr. Robin attempted a right IJ triple-lumen catheter and has been ordered for PICC line placement. CAT scan of the abdomen and pelvis without contrast showed fatty infiltration of the liver. Nonobstructive right renal calculi. Abdomen pelvis unchanged. Extensive subcutaneous edema bilaterally that is probably increased. No retroperitoneal hemorrhage. White count jumped to 28.7. Dr. Colon has discontinued daptomycin as treatment is completed for VRE UTI. Zosyn started for new left lower lobe infiltrate, possible aspiration she was vomiting yesterday. Cortisol level and ACTH will be checked in the morning 04/20: Patient was intubated last night. She is on levo at 8 mics. She is scheduled for hemodialysis today. She has had no urine output. She is currently off the Narcan drip and bicarb drip. Respiratory status appears more comfortable on the ventilator. She did have a right-sided IJ triple-lumen placed by Dr. Robin yesterday. Discussed with father, option of transfer to [facility] and he is undecided. He states that they are not going to do anything different than what transfer. Await further input from consultants. White count is 26.6, hemoglobin 7.9, platelet count 124, INR 1.8, BUN 20 creatinine 2.34. Total bilirubin 6.6, AST 840, ALT 289, alkaline phosphatase 395. Cortisol level came back at 41 and ACTH 5.19. 04/21: Patient undergoing dialysis today. Levo currently at 4 mics. She has received another unit of packed RBCs. Hemodialysis got off 500 mL yesterday. No plan for sedation holiday. Dr. Robin is following. Dr. Thompson discussed in detail the patient's current condition and prognosis with the patient's sister. Plan is to continue current treatment. 04/22: Patient was on levo fed at 4 mics needed to be increased to 10 while on hemodialysis. And it up getting 2 L off of with hemodialysis yesterday. She is on Solu-Medrol 60 mg IV every 6 hours it was started by Dr. KASIE Anderson. Blood sugars are running high and patient will be placed on Levemir 15 units daily. She is planned for a sedation holiday today. She is having liquid stools 2-3 per day and Reglan will be stopped. Triglyceride level will be checked as patient has been on propofol. Yesterday she did receive a dose of vitamin K for INR 1.5. Today creatinine is 1.48 with BUN of 16. Liver function tests are improving except for bilirubin continues to increase and currently at 7.1. AST 298, ALT 195 and alkaline phosphatase 430. Triglycerides came back at 915. Repeat chest x-ray shows bibasilar airspace disease. Improvement in patient' s findings status. 04/23: Level came back at 915 possibly related to propranolol. Nursing to update Dr. Robin regarding possibly changing to another agent for sedation. Patient was not able to tolerate a sedation holiday yesterday. She remains on ventilator with tidal volume 500 FiO2 60 and PEEP of 5. Patient is undergoing hemodialysis this morning. She continues to have very minimal urine output that is brown in color. Extremities have weeping wounds. Sclerae jaundiced. White count 33.2, hemoglobin 5.5 and platelet count is 88. BUN is 18 and creatinine 1.35. Blood sugars are running in the low 200s. PTT and PT are elevated and had to be sent to [facility] for testing. Dr. Robin to be notified. Patient did have hip antibody screen which came back negative on April 19. Patient is currently on norepinephrine at 11 mics. 04/24: IV sedation has been changed to Versed. Patient is on levo fed at 3 mics this morning. She was undergoing dialysis/SLED for the past 3 days. White count is now at 30.1, hemoglobin 6.3, platelet count at 70. BUN 22 and creatinine 1.16. Liver function tests remain elevated. LDH came back at 6098. INR is 1.1. IV albumin was ordered yesterday. Patient is on tube feedings and tolerating without any difficulty. Plan is to have a family meeting tomorrow regarding further determination on treatment or possibly comfort care. 04/25: Patient remains in the intensive care unit intubated and on mechanical ventilation. Patient is currently on norepinephrine at 5 mics. She is undergoing HD/SLED again today. Dr. Briceño has added and Mucomyst. Patient has extensive weeping to not only her legs and arms but now to her back with open wounds and blistering. Patient was decreased on Versed. Patient was not able to tolerate this was increased. Urine output is scant. Long discussion with patient's guardians: sister and father as well as patient's son regarding patient's current condition, multiple comorbidities and prognosis with option to either obtain trach and PEG or comfort care. They will discuss and make a decision. 04/26: Patient is now stooling dark brown positive for occult blood with concern for acute GI bleed. Dr. Rangel has recommended continuing tube feedings but it was turned off during the night. Long-acting insulin held this morning his blood sugars are running low. Regarding PEG tube placement if this is determined by family, Dr. Ryan suggest surgical placement of a feeding tube. Mucomyst has been started and cleared by nephrology for drug-induced liver injury. Liver enzymes are worsening. Patient remains intubated and on mechanical ventilation. She is scheduled for transfusion this morning. She remains on levo at 5 mics. She is scheduled for hemodialysis/select today. Family has not made a final decision regarding comfort care versus trach and PEG. 04/27: Patient's condition deteriorated on the morning of April 27. Patient on April 27. Please seen nursing documentation of details. Discharge diagnoses: 1. Sepsis with septic shock secondary to urinary tract infection with lactic acidosis. 2. Intermediate probability of pulmonary embolism ruled out. 3. Acute hypoxic respiratory failure on chronic respiratory failure 4. Morbid obesity with BMI of 59. 5. Neurogenic bladder with incontinence and Urinary retention. 6. Diabetes mellitus type 2 insulin-dependent. 7. Debility and deconditioning. 8. Dehydration. 9. Acute kidney injury and ATN with hyperkalemia and severe metabolic and respiratory acidosis. 10. 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 11. Hyperkalemia 12. Metabolic encephalopathy secondary to sepsis, respiratory failure, liver failure. 13. Chronic pain. 14. Shock liver with worsening liver function tests mostly secondary to heart failure and congestion. 15. Severe protein calorie malnutrition. 16. Metabolic acidosis. 17. GERD and possible gastritis. 18. Aspiration pneumonia. 19. Multiorgan failure with respiratory, renal, cardiac and liver failure. 20. Full body anasarca with weeping, large vesicles that are breaking open with open wounds across her back and upper and lower extremities. 21. Acute GI bleed with acute blood loss anemia. Impression and plan of care have been directed as dictated by the signing physician. Jeanne Roca nurse practitioner acting as scribe for signing physician. Patient Condition at Discharge: Undetermined Plan - Discharge Summary New Discharge Prescriptions: No Action Ipratropium-Albuterol Nebulize [Duoneb 0.5 mg-3 mg/3 ml Soln] 3 ml INHALATION RT-Q4H PRN PRN Reason: Wheezing Ondansetron [Zofran ODT] 4 mg PO Q6H PRN PRN Reason: Nausea Furosemide [Lasix] 40 mg PO DAILY@0900 Budesonide [Pulmicort Flexhaler] 2 puff INHALATION RT-BID@899,2099 Gabapentin [Neurontin] 300 mg PO HS@2099 Potassium Chloride ER [K-Dur 20] 20 meq PO DAILY@0900 Zinc Oxide [Desitin] 1 applic TOPICAL Q12H Dimethicone/Zinc Oxide [Inzo Zinc Oxide Barrier Cream] 1 applic TOPICAL Q12H Clotrimazole/Betamethasone Dip [Lotrisone Cream] 1 applic TOPICAL Q12H Petrolatum, White [Aquaphor] 1 applic TOPICAL Q12H Collagenase [Santyl] 1 applic TOPICAL Q12H Bethanechol Chloride [Urecholine] 50 mg PO QID Albuterol Nebulized [Ventolin Nebulized] 5 mg INHALATION RT-Q6H metFORMIN HCL [Glucophage] 1,000 mg PO BID Famotidine [Pepcid] 20 mg PO BID Lactose-Reduced Food [Ensure Plus] 1 can PO BID DULoxetine HCL [Cymbalta] 30 mg PO BID@0900,2099 predniSONE 20 mg PO DAILY@0900 Methadone [Dolophine] 5 mg PO DAILY@0900 Miconazole Nitrate [Lotrimin AF Powder] 1 applic TOPICAL Q12H Methadone [Dolophine] 60 mg PO DAILY Discharge Medication List Ipratropium-Albuterol Nebulize [Duoneb 0.5 mg-3 mg/3 ml Soln] 3 ml INHALATION RT -Q4H PRN 08/29/17 [History] Furosemide [Lasix] 40 mg PO DAILY@0900 12/23/17 [History] Ondansetron [Zofran ODT] 4 mg PO Q6H PRN 12/23/17 [History] Budesonide [Pulmicort Flexhaler] 2 puff INHALATION RT-BID@00,209902/03/18 [ History] Gabapentin [Neurontin] 300 mg PO HS@209902/03/18 [History] Potassium Chloride ER [K-Dur 20] 20 meq PO DAILY@0900 02/22/18 [History] Albuterol Nebulized [Ventolin Nebulized] 5 mg INHALATION RT-Q6H 04/08/18 [ History] Bethanechol Chloride [Urecholine] 50 mg PO QID 04/08/18 [History] Clotrimazole/Betamethasone Dip [Lotrisone Cream] 1 applic TOPICAL Q12H 04/08/18 [History] Collagenase [Santyl] 1 applic TOPICAL Q12H 04/08/18 [History] DULoxetine HCL [Cymbalta] 30 mg PO BID@0900,2100 04/08/18 [History] Dimethicone/Zinc Oxide [Inzo Zinc Oxide Barrier Cream] 1 applic TOPICAL Q12H [History] Famotidine [Pepcid] 20 mg PO BID 04/08/18 [History] Lactose-Reduced Food [Ensure Plus] 1 can PO BID 04/08/18 [History] Methadone [Dolophine] 5 mg PO DAILY@0900 04/08/18 [History] Methadone [Dolophine] 60 mg PO DAILY 04/08/18 [History] Miconazole Nitrate [Lotrimin AF Powder] 1 applic TOPICAL Q12H 04/08/18 [History] Petrolatum, White [Aquaphor] 1 applic TOPICAL Q12H 04/08/18 [History] Zinc Oxide [Desitin] 1 applic TOPICAL Q12H 04/08/18 [History] metFORMIN HCL [Glucophage] 1,000 mg PO BID 04/08/18 [History] predniSONE 20 mg PO DAILY@0900 04/08/18 [History] Follow up Appointment(s)/Referral(s): Kaylan Vizcarra MD [Primary Care Provider] - 1-2 days Kyle Anderson MD [STAFF PHYSICIAN] - 1 Week Discharge Disposition: - Preliminary Cause of Preliminary Cause of : SIRS with Multiorgan failure with respiratory, renal , cardiac and liver angeline
--- NOTE | 2018-04-28 13:21 | P.PN ---
Subjective Progress Note Date: 04/23/18 Principal diagnosis: 1-VRE urinary tract infection 2- Pseudomonas pneumonia 3- bilateral groin cutaneous candidiasis The patient is afebrile today she seemed hemodynamically stable the patient remains to be intubated on the vent, and FiO2 is stable, has been tolerating her tube feeds and no diarrhea, no significant purulent secretion through the ET tube Objective - Vital Signs Vital signs: Vital Signs Temp 98.2 F 04/23/18 12:28 Pulse 92 04/23/18 14:00 Resp 24 04/23/18 14:00 BP 125/80 04/23/18 12:28 Pulse Ox 100 04/23/18 14:00 Intake & Output 04/22/18 04/23/18 04/23/18 19:59 06:59 18:59 Intake Total 1579.97 Output Total 2 Balance 1577.97 Weight Intake: IV 560 Sodium Chloride 0.9% 1, 500 000 ml @ 50 mls/hr IV . Q20H [facility] Rx#:[id number] pressure bag 60 Intake, IV Titration 195.97 Amount Norepinephrine 16 mg In Sodium Chloride 0.9% 250 ml @ Titrate IV .Q0M [facility] Rx#:[id number] Propofol 1,000 mg In 195.97 Empty Bag 1 bag @ Titrate IV .Q0M [facility] Rx#: [id number] Tube Feeding 204 Blood Product 620 Rc Pheresis As-3 Unit 310 [id number] Rc Pheresis As-3 Unit 310 [id number] Other Output: Urine 0 Stool 2 Other Other: Voiding Method Indwelling Catheter # Voids ABP, PAP, CO, CI - Last Documented Arterial Blood Pressure 131/82 - Exam GENERAL DESCRIPTION:[ Patient is intubated sedated on the vent] EYES : [No pallor or scleral icterus] RESPIRATORY SYSTEM: [Unlabored breathing decreased breath sound at the Bases] CARDIA VASCULAR SYSTEM: [S1-S2 regular rate and rhythm no murmur] GI: [Abdominal soft there's no tenderness no organomegaly] EXTREMITIES: [Significant swelling in both legs with blister on the left leg that has ruptured] - Labs CBC & Chem 7: 04/26/18 21:10 04/27/18 01:55 Labs: Abnormal Lab Results - Last 24 Hours (Table) 04/20/18 04/22/18 04/22/18 Range/Units 20:06 20:29 23:20 WBC (3.8-10.6) k/uL RBC (3.80-5.40) m/uL Hgb (11.4-16.0) gm/dL Hct (34.0-46.0) % RDW (11.5-15.5) % Plt Count (150-450) k/uL Neutrophils # (Manual) (1.3-7.7) k/uL Metamyelocytes # (Man) (0) k/uL Myelocytes # (Manual) (0) k/uL Promyelocytes # (Man) (0) k/uL Nucleated RBCs (0-0) /100 WBC APTT (22.0-30.0) sec ABG Total CO2 (19-24) mmol/L ABG O2 Saturation (94-97) % Sodium (137-145) mmol/L Carbon Dioxide (22-30) mmol/L BUN (7-17) mg/dL Creatinine (0.52-1.04) mg/dL Glucose (74-99) mg/dL POC Glucose (mg/dL) 204 H 238 H (75-99) mg/dL Calcium (8.4-10.2) mg/dL Phosphorus (2.5-4.5) mg/dL Total Bilirubin (0.2-1.3) mg/dL AST (14-36) U/L ALT (9-52) U/L Alkaline Phosphatase (38-126) U/L Lactate Dehydrogenase (313-618) U/L Total Protein (6.3-8.2) g/dL Albumin (3.5-5.0) g/dL Crossmatch See Detail 04/23/18 04/23/18 04/23/18 Range/Units 04:22 05:30 05:36 WBC (3.8-10.6) k/uL RBC (3.80-5.40) m/uL Hgb (11.4-16.0) gm/dL Hct (34.0-46.0) % RDW (11.5-15.5) % Plt Count (150-450) k/uL Neutrophils # (Manual) (1.3-7.7) k/uL Metamyelocytes # (Man) (0) k/uL Myelocytes # (Manual) (0) k/uL Promyelocytes # (Man) (0) k/uL Nucleated RBCs (0-0) /100 WBC APTT (22.0-30.0) sec ABG Total CO2 25 H (19-24) mmol/L ABG O2 Saturation 97.8 H (94-97) % Sodium 136 L (137-145) mmol/L Carbon Dioxide 20 L (22-30) mmol/L BUN 18 H (7-17) mg/dL Creatinine 1.35 H (0.52-1.04) mg/dL Glucose 263 H (74-99) mg/dL POC Glucose (mg/dL) 259 H (75-99) mg/dL Calcium 6.9 L (8.4-10.2) mg/dL Phosphorus 1.7 L (2.5-4.5) mg/dL Total Bilirubin 8.0 H (0.2-1.3) mg/dL AST 524 H (14-36) U/L ALT 231 H (9-52) U/L Alkaline Phosphatase 331 H (38-126) U/L Lactate Dehydrogenase (313-618) U/L Total Protein 4.5 L (6.3-8.2) g/dL Albumin 2.8 L (3.5-5.0) g/dL Crossmatch 04/23/18 04/23/18 04/23/18 Range/Units 07:43 08:16 11:52 WBC 27.0 H (3.8-10.6) k/uL RBC 1.84 L (3.80-5.40) m/uL Hgb 5.5 L* D (11.4-16.0) gm/dL Hct 16.6 L* (34.0-46.0) % RDW 18.2 H (11.5-15.5) % Plt Count 88 L (150-450) k/uL Neutrophils # (Manual) 19.70 H (1.3-7.7) k/uL Metamyelocytes # (Man) 2.43 H (0) k/uL Myelocytes # (Manual) 2.97 H (0) k/uL Promyelocytes # (Man) 0.27 H (0) k/uL Nucleated RBCs 23 H (0-0) /100 WBC APTT (22.0-30.0) sec ABG Total CO2 (19-24) mmol/L ABG O2 Saturation (94-97) % Sodium (137-145) mmol/L Carbon Dioxide (22-30) mmol/L BUN (7-17) mg/dL Creatinine (0.52-1.04) mg/dL Glucose (74-99) mg/dL POC Glucose (mg/dL) 218 H 204 H (75-99) mg/dL Calcium (8.4-10.2) mg/dL Phosphorus (2.5-4.5) mg/dL Total Bilirubin (0.2-1.3) mg/dL AST (14-36) U/L ALT (9-52) U/L Alkaline Phosphatase (38-126) U/L Lactate Dehydrogenase (313-618) U/L Total Protein (6.3-8.2) g/dL Albumin (3.5-5.0) g/dL Crossmatch 04/23/18 04/23/18 04/23/18 Range/Units 14:20 14:20 14:20 WBC 25.0 H (3.8-10.6) k/uL RBC 2.59 L (3.80-5.40) m/uL Hgb 8.4 L D (11.4-16.0) gm/dL Hct 23.1 L (34.0-46.0) % RDW 16.9 H (11.5-15.5) % Plt Count 71 L (150-450) k/uL Neutrophils # (Manual) 21.50 H (1.3-7.7) k/uL Metamyelocytes # (Man) 1.50 H (0) k/uL Myelocytes # (Manual) 1.00 H (0) k/uL Promyelocytes # (Man) (0) k/uL Nucleated RBCs 33 H (0-0) /100 WBC APTT 39.6 H (22.0-30.0) sec ABG Total CO2 (19-24) mmol/L ABG O2 Saturation (94-97) % Sodium (137-145) mmol/L Carbon Dioxide (22-30) mmol/L BUN (7-17) mg/dL Creatinine (0.52-1.04) mg/dL Glucose (74-99) mg/dL POC Glucose (mg/dL) (75-99) mg/dL Calcium (8.4-10.2) mg/dL Phosphorus (2.5-4.5) mg/dL Total Bilirubin (0.2-1.3) mg/dL AST (14-36) U/L ALT (9-52) U/L Alkaline Phosphatase (38-126) U/L Lactate Dehydrogenase 6098 H (313-618) U/L Total Protein (6.3-8.2) g/dL Albumin (3.5-5.0) g/dL Crossmatch 04/23/18 Range/Units 17:15 WBC (3.8-10.6) k/uL RBC (3.80-5.40) m/uL Hgb (11.4-16.0) gm/dL Hct (34.0-46.0) % RDW (11.5-15.5) % Plt Count (150-450) k/uL Neutrophils # (Manual) (1.3-7.7) k/uL Metamyelocytes # (Man) (0) k/uL Myelocytes # (Manual) (0) k/uL Promyelocytes # (Man) (0) k/uL Nucleated RBCs (0-0) /100 WBC APTT (22.0-30.0) sec ABG Total CO2 (19-24) mmol/L ABG O2 Saturation (94-97) % Sodium (137-145) mmol/L Carbon Dioxide (22-30) mmol/L BUN (7-17) mg/dL Creatinine (0.52-1.04) mg/dL Glucose (74-99) mg/dL POC Glucose (mg/dL) 223 H (75-99) mg/dL Calcium (8.4-10.2) mg/dL Phosphorus (2.5-4.5) mg/dL Total Bilirubin (0.2-1.3) mg/dL AST (14-36) U/L ALT (9-52) U/L Alkaline Phosphatase (38-126) U/L Lactate Dehydrogenase (313-618) U/L Total Protein (6.3-8.2) g/dL Albumin (3.5-5.0) g/dL Crossmatch Microbiology - Last 24 Hours (Table) 04/21/18 00:29 Gram Stain - Final Sputum Sputum Culture - Final Pseudomonas aeruginosa [place] albicans Assessment and Plan (1) Pseudomonas pneumonia Status: Acute Code(s): J15.1 - PNEUMONIA DUE TO PSEUDOMONAS SNOMED Code(s): 58090461 (2) UTI (urinary tract infection) Status: Acute Code(s): N39.0 - URINARY TRACT INFECTION, SITE NOT SPECIFIED SNOMED Code(s): 59631799 (3) Wound of right lower extremity Status: Acute Code(s): S81.801A - UNSPECIFIED OPEN WOUND, RIGHT LOWER LEG, INITIAL ENCOUNTER SNOMED Code(s): 799136820 Plan: 1- patient antibiotics has been switched to meropenem because of the resistant to Zosyn which the patient was on, Zosyn will be discontinued 2- nystatin powder to bilateral groin area 3- mild compression dressing to the legs to keep the swelling down Time with Patient: Less than 30
[2018-04-30 15:59] LABS: Glucose,Whole Blood 112 mg/dL (75-99)
[2018-04-30 15:59] LABS: Glucose,Whole Blood 31 mg/dL (75-99); Glucose,Whole Blood 36 mg/dL (75-99)
== END 2018-04-27 08:19 | disposition expired | DRG 870 ==
LOC: EC 10:00 → 3SCARD 15:57 → OBSVTOIN 04-09 15:50 → EEVIPCON 04-09 15:50 → 2SICU 04-10 13:50
PROVIDERS: ADMIT Internal Medicine; ATTEND Internal Medicine
PROC: 02HV33Z Insertion of Infusion Device into Superior Vena Cava, Percutaneous Approach (ICD-10-PCS; 2018-04-10)
PROC: 5A09557 Assistance with Respiratory Ventilation, Greater than 96 Consecutive Hours, Continuous Positive Airway Pressure (ICD-10-PCS; 2018-04-13)
PROC: 5A1D70Z Performance of Urinary Filtration, Intermittent, Less than 6 Hours Per Day (ICD-10-PCS; 2018-04-16)
PROC: 30243N1 Transfusion of Nonautologous Red Blood Cells into Central Vein, Percutaneous Approach (ICD-10-PCS; 2018-04-17)
PROC: 03HY32Z Insertion of Monitoring Device into Upper Artery, Percutaneous Approach (ICD-10-PCS; 2018-04-18)
PROC: 02HV33Z Insertion of Infusion Device into Superior Vena Cava, Percutaneous Approach (ICD-10-PCS; 2018-04-19)
PROC: 06H033Z Insertion of Infusion Device into Inferior Vena Cava, Percutaneous Approach (ICD-10-PCS; 2018-04-19)
PROC: 5A1955Z Respiratory Ventilation, Greater than 96 Consecutive Hours (ICD-10-PCS; principal; 2018-04-23)
PROC: 0BH17EZ Insertion of Endotracheal Airway into Trachea, Via Natural or Artificial Opening (ICD-10-PCS; 2018-04-23)
DX: A41.81 Sepsis due to Enterococcus (principal); E43 Unspecified severe protein-calorie malnutrition; G93.41 Metabolic encephalopathy; J15.1 Pneumonia due to Pseudomonas; J69.0 Pneumonitis due to inhalation of food and vomit; J96.21 Acute and chronic respiratory failure with hypoxia; J96.22 Acute and chronic respiratory failure with hypercapnia; K72.00 Acute and subacute hepatic failure without coma; N17.0 Acute kidney failure with tubular necrosis; R65.21 Severe sepsis with septic shock; D62 Acute posthemorrhagic anemia; D68.9 Coagulation defect, unspecified; E66.2 Morbid (severe) obesity with alveolar hypoventilation; E87.1 Hypo-osmolality and hyponatremia; E87.4 Mixed disorder of acid-base balance; I13.2 Hypertensive heart and chronic kidney disease with heart failure and with stage 5 chronic kidney disease, or end stage renal disease; I50.22 Chronic systolic (congestive) heart failure; J44.0 Chronic obstructive pulmonary disease with (acute) lower respiratory infection; J98.11 Atelectasis; K92.2 Gastrointestinal hemorrhage, unspecified; L03.115 Cellulitis of right lower limb; L03.116 Cellulitis of left lower limb; N39.0 Urinary tract infection, site not specified; N18.4 Chronic kidney disease, stage 4 (severe); Z68.43 Body mass index [BMI] 50.0-59.9, adult; I27.20 Pulmonary hypertension, unspecified; E11.22 Type 2 diabetes mellitus with diabetic chronic kidney disease; E11.65 Type 2 diabetes mellitus with hyperglycemia; E83.39 Other disorders of phosphorus metabolism; E87.5 Hyperkalemia; I07.1 Rheumatic tricuspid insufficiency; N31.9 Neuromuscular dysfunction of bladder, unspecified; K71.8 Toxic liver disease with other disorders of liver; K76.0 Fatty (change of) liver, not elsewhere classified; B37.2 Candidiasis of skin and nail; T50.905A Adverse effect of unspecified drugs, medicaments and biological substances, initial encounter; D63.8 Anemia in other chronic diseases classified elsewhere; K29.70 Gastritis, unspecified, without bleeding; D86.0 Sarcoidosis of lung; D86.89 Sarcoidosis of other sites; E86.0 Dehydration; E87.6 Hypokalemia; G89.4 Chronic pain syndrome; J45.50 Severe persistent asthma, uncomplicated; K21.9 Gastro-esophageal reflux disease without esophagitis; N20.0 Calculus of kidney; N39.498 Other specified urinary incontinence; S41.112A Laceration without foreign body of left upper arm, initial encounter; S80.829A Blister (nonthermal), unspecified lower leg, initial encounter; T38.0X5A Adverse effect of glucocorticoids and synthetic analogues, initial encounter; J38.1 Polyp of vocal cord and larynx; M47.9 Spondylosis, unspecified; M48.00 Spinal stenosis, site unspecified; R19.7 Diarrhea, unspecified; M54.9 Dorsalgia, unspecified; R33.9 Retention of urine, unspecified; E86.9 Volume depletion, unspecified; D69.6 Thrombocytopenia, unspecified; Z16.21 Resistance to vancomycin; Z87.01 Personal history of pneumonia (recurrent); Z99.81 Dependence on supplemental oxygen; Z87.440 Personal history of urinary (tract) infections; Z74.01 Bed confinement status; Z87.891 Personal history of nicotine dependence; Z79.84 Long term (current) use of oral hypoglycemic drugs; Z79.52 Long term (current) use of systemic steroids; Z79.51 Long term (current) use of inhaled steroids; Z79.899 Other long term (current) drug therapy; Z83.79 Family history of other diseases of the digestive system; Y92.239 Unspecified place in hospital as the place of occurrence of the external cause
CPT/HCPCS: 36415; 36556; 36569; 36600; 71045; 74176; 76705; 76770; 76937; 77001; 78580; 80048; 80053; 80074; 80202; 80307; 81001; 82024; 82043; 82103; 82105; 82140; 82248; 82272; 82330; 82390; 82533; 82550; 82553; 82570; 82805; 83010; 83036; 83516; 83605; 83615; 83690; 83735; 84100; 84132; 84134; 84156; 84165; 84443; 84478; 84484; 85025; 85027; 85045; 85379; 85397; 85610; 85730; 86022; 86038; 86160; 86162; 86225; 86255; 86334; 86704; 86706; 86850; 86900; 86901; 86920; 87070; 87077; 87086; 87186; 87205; 87340; 90935; 93005; 93306; 93308; 94002; 94003; 94640; 94644; 94660; 96361; 96365; 96366; 96367; 96376; 99285